=== PATIENT | female | born 1935 | race Caucasian/White ===

== ENCOUNTER → 2019-03-03 13:47 | Outpatient (CLI) | payer MEDICARE, SELFPAY ==
--- NOTE | ~2019-03-03 | XR_ITS ---
EXAMINATION: XR chest 2V DATE: 03/03/2019 14:03 INDICATION: Chronic obstructive pulmonary disease. TECHNIQUE: Frontal and lateral views of the chest were obtained. COMPARISON: Chest 2 views 09/29/2015, CT abdomen 11/09/2015 FINDINGS: The chest demonstrates clear lungs without pneumonia, pleural effusion, or pneumothorax. Th e heart size is normal. There are bilateral breast implants. IMPRESSION: 1. No acute cardiopulmonary disease. Reviewed, dictated and finalized at location A. 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
== END ==
PROVIDERS: PCP Internal Medicine; Visit Provider Nurse Practitioner
DX: J44.9 Chronic obstructive pulmonary disease, unspecified (principal)
CPT/HCPCS: 71046

== ENCOUNTER 2019-08-31 00:34 | Outpatient (CLI) | payer MEDICARE, SELFPAY ==
[2019-08-31 18:41] LABS: SARS-CoV-2 RNA PCR Negative
== END 2019-08-31 00:35 | disposition home or self-care (01) ==
LOC: ANHCOVIDDT 00:34
PROVIDERS: PCP Internal Medicine; Visit Provider Internal Medicine Gastroenterology
DX: Z01.812 Encounter for preprocedural laboratory examination (principal); Z11.59 Encounter for screening for other viral diseases
CPT/HCPCS: 87635; C9803; U0003

== ENCOUNTER 2019-09-02 02:05 | Day surgery (SDC) | payer MEDICARE, SELFPAY ==
[2019-08-27 10:11] VITALS: BMI 32.6
[2019-09-02 11:50] VITALS: BP 148/82; PULSE 69; RESP 18; TEMP 37.1; O2SAT 96
[2019-09-02] MEDS: LACTATED RINGERS 1,000 ML 150 ML IV CONT (12:09)
--- NOTE | 2019-09-02 12:51 | WPDANESEPPF ---
Anes - Initial Pre Proc Eval Procedure: Operation Date: 09/02/19 12:45 Proposed Procedures p Colonoscopy - Oscar Tillman MD Date/Time: 09/02/19 12:51 Surgeon: Oscar Tillman MD Pre Op Diagnosis: melena Patient Data Age: 83 Gender: F Height: 5 ft 3.5 in Weight: 83.7 kg Last Vital Signs Temp 98.8 F 09/02/19 11:50 Pulse 69 09/02/19 11:50 Resp 18 09/02/19 11:50 BP 148/82 H 09/02/19 11:50 Pulse Ox 96 09/02/19 11:50 Allergies Allergy/AdvReac Type Severity Reaction Status Date / Time No Known Allergies Allergy Verified 09/02/19 11:55 Home Medications Medication Instructions Recorded Confirmed Type calcium carb-mag oxide-vit D3 1 tablet PO DAILY 12/23/18 08/27/19 History aspirin 81 mg tablet,delayed 81 mg PO DAILY 03/02/19 08/27/19 History release dupilumab 300 mg/2 mL subcutaneous 300 mg SUB-Q ONCE 03/02/19 09/02/19 History syringe fluticasone 250 mcg-salmeterol 50 1 inhalation INHALATION BID 03/02/19 09/02/19 History mcg/dose blistr powdr for inhalation ibuprofen 600 mg tablet 600 mg PO ONCE PRN tablet 07/10/19 09/02/19 History levothyroxine 75 mcg tablet 75 mcg PO DAILY #90 tablet 08/03/19 08/27/19 Rx peg 3350-electrolytes 236 240 ml PO Q10M #4000 ml 08/26/19 Rx gram-22.74 gram-6.74 gram-5.86 gram solution amlodipine 5 mg PO DAILY 08/27/19 08/27/19 History Patient hx anesthesia problems: none Family hx anesthesia problems: none PMFSH Past Medical History Medical History (Updated 08/26/19 @ 11:56 by Oscar Tillman MD) Afib Blood in stool Bowel habit changes Frequent headaches Varicose vein of leg Surgical History Surgical History (System 03/13/19 @ 14:04 by Ernestina Vaughan) H/O arthroscopy of knee History of foot surgery History of tonsillectomy Social History Social History (System 03/13/19 @ 14:04 by Ernestina Gresham Smoking status: Smoker, status unknown Second hand tobacco smoke exposure: No Alcohol intake: never Anes - Eval Final PreProcedure Day of Procedure 09/02/19 12:51 Patient weight: normal Heart: regular rate and rhythm Lungs: clear to auscultation Airway: Mallampati scale class II Neurological: alert and oriented Last oral intake: >/= 8 hours ASA classification: III Emergent: no Anesthetic plan: proceed Anesthesia type and monitoring: general GIVS and standard monitoring Informed Consent: The patient's anesthetic plan and its attendant risks and benefits were discussed with the patient/family/POA. Questions were solicited and answers provided to the satisfaction of the patient/family/POA.
--- NOTE | 2019-09-02 12:59 | WPDHPUPDATE1 ---
History and Physical Update Update Date/Time: 09/02/19 12:59 History and Physical has been reviewed, including an updated exam of the patient. There are NO changes in the patient's condition. Risks, benefits, and alternatives have been discussed and questions answered. Patient agrees to proceed with procedure.
[2019-09-02 13:43] VITALS: BP 105/63; PULSE 59; RESP 18; O2SAT 98
== END 2019-09-02 14:16 | disposition home or self-care (01) ==
PROVIDERS: PCP Internal Medicine; Visit Provider Internal Medicine Gastroenterology
PROC: 0DJD8ZZ Inspection of Lower Intestinal Tract, Via Natural or Artificial Opening Endoscopic (ICD-10-PCS; CPT 45378; principal; 2019-09-02 12:45)
DX: C18.4 Malignant neoplasm of transverse colon (principal); K63.5 Polyp of colon; K57.30 Diverticulosis of large intestine without perforation or abscess without bleeding; K64.8 Other hemorrhoids; I48.91 Unspecified atrial fibrillation; Z79.82 Long term (current) use of aspirin
CPT/HCPCS: 45385; 45380; 45381; 88305; J2704; J7120

== ENCOUNTER → 2019-09-03 14:36 | Outpatient (CLI) | payer MEDICARE, SELFPAY ==
--- NOTE | ~2019-09-03 | CT_ITS ---
EXAMINATION: CT abdomen pelvis w con DATE: 09/03/2019 15:06 INDICATION: Malignant neoplasm of colon TECHNIQUE: Computed tomography (CT) of the abdomen and pelvis was performed with 100 cc Omnipaque 350 intravenous contrast. Automated exposure control and iterative reconstruction technique were employe d. Exam dose: 814.59 mGy-cm total exam DLP. COMPARISON: 11/09/2015 CT abdomen 10/30/2015 CT abdomen pelvis FINDINGS: The lung bases are clear of infiltrate or consolidation. Heart size is within normal range. No pericardial or pleural effusion. Probable couple millimeter left hepatic cyst; however this is too small to definitively characterize. Otherwise no hepatic hepatic, splenic, pancreatic, and adrenal space-occupying mass lesion. 3 cm right renal cyst. Approximately 5 mm right renal cyst. Approximately 7 mm left renal cyst. No urinary tract calculus or hydroureteronephrosis. The gallbladder is present. No bile duct or pancreatic duct dilatation. There is extensive calcification as well as tortuosity of the abdominal aorta as well as calcificatio n of the aortic branches. No intraperitoneal or retroperitoneal or pelvic mass lesion or adenopathy o r ascites. At least 2.5 cm heavily calcified uterine fibroid. The uterus and adnexal areas are otherwise unremar kable. There are numerous diverticula, primarily but not exclusively of the sigmoid colon. No CT evidence of diverticulitis. No bowel obstruction, bowel wall thickening, pneumatosis or intraperitoneal free air . There is diffuse osteopenia. There is degenerative change of the thoracic and lumbar spine with parti cular prominent degenerative change at the apophyseal joints and discs associated with prominent rota tory levoscoliosis. Multilevel degenerative disc disease with associated mild retrolisthesis at L3-4. . Grade 1 anterolisthesis at L4-5. IMPRESSION: Renal cysts Diverticulosis of the colon Reviewed, dictated and finalized at Location A. Reviewed, dictated and finalized at location A.
[2019-09-03 14:55] LABS: Estimated Glomerular Filt Rate > 60
== END ==
PROVIDERS: PCP Internal Medicine; Visit Provider Internal Medicine Gastroenterology
DX: C18.9 Malignant neoplasm of colon, unspecified (principal); E78.5 Hyperlipidemia, unspecified; E03.9 Hypothyroidism, unspecified; I10 Essential (primary) hypertension; N28.1 Cyst of kidney, acquired; K57.90 Diverticulosis of intestine, part unspecified, without perforation or abscess without bleeding
CPT/HCPCS: 36415; 74177; Q9967

== ENCOUNTER 2019-10-19 13:33 | Outpatient (CLI) | payer MEDICARE, SELFPAY | END 2019-10-19 13:34 | disposition home or self-care (01) | PROVIDERS: PCP Internal Medicine | DX: A49.8 Other bacterial infections of unspecified site (principal); A09 Infectious gastroenteritis and colitis, unspecified | CPT/HCPCS: 87324 ==

== ENCOUNTER → 2020-11-03 00:16 | Outpatient (CLI) | payer MEDICARE, SELFPAY ==
[2020-11-03 19:52] LABS: SARS-CoV-2 RNA PCR Negative
== END ==
PROVIDERS: PCP Internal Medicine; Visit Provider Nurse Practitioner
DX: Z20.822 Contact with and (suspected) exposure to COVID-19 (principal); R09.89 Other specified symptoms and signs involving the circulatory and respiratory systems
CPT/HCPCS: C9803; U0003; U0005

== ENCOUNTER 2021-01-27 07:48 | Outpatient (CLI) | payer MEDICARE, SELFPAY | END 2021-01-27 07:49 | disposition home or self-care (01) | LOC: ANHAUDIO 07:50 | PROVIDERS: PCP Internal Medicine; Visit Provider Nurse Practitioner Family | DX: R42 Dizziness and giddiness (principal); H90.3 Sensorineural hearing loss, bilateral | CPT/HCPCS: 92537; 92540; 92546; 92557; 92567 ==

== ENCOUNTER → 2021-02-02 11:08 | Outpatient (CLI) | payer MEDICARE, SELFPAY ==
--- NOTE | ~2021-02-02 | CT_ITS ---
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 The dose-length product (DLP) was 1052.62 mGy-cm. Automated exposure control and iterative reconstruction technique were employed. COMPARISON: 09/03/2019 FINDINGS: CHEST CT: There is mild emphysema. The lungs are free of acute opacities. There is no pleural effusion or pneum othorax. No pathologically enlarged thoracic lymph nodes are identified. The heart size is normal. Bi lateral breast implants are noted. There is moderate thoracic spondylosis. ABDOMEN/PELVIS CT: The liver, spleen, pancreas, gallbladder, and adrenal glands are normal. Cysts of the kidneys measure up to 3.4 cm on the right. There is calcified atherosclerosis of the aorta and many of the other art eries. No pathologically enlarged abdominal or pelvic lymph nodes are identified. There are changes o f right hemicolectomy and proximal transverse colectomy. No residual or mass is identified. There is no free intraperitoneal gas or evidence of bowel obstruction. A calcified fibroid is noted in the [place] jazmyn. There is a tiny fat-containing ventral hernia of the lateral right lower abdominal wall, likely the site of a laparoscopy port. Severe lumbar spondylosis is noted. IMPRESSION: 1. Changes of interval right hemicolectomy without recurrent or metastatic disease identified. Reviewed, dictated and finalized at location A. 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 Changes of interval right hemicolectomy without recurrent or metastatic dise ase identified.
[2021-02-02 11:27] LABS: Estimated Glomerular Filt Rate > 60
== END ==
PROVIDERS: PCP Internal Medicine
DX: C18.4 Malignant neoplasm of transverse colon (principal); C18.3 Malignant neoplasm of hepatic flexure; Z90.49 Acquired absence of other specified parts of digestive tract
CPT/HCPCS: 71260; 74177; Q9967

== ENCOUNTER → 2021-05-06 08:49 | Outpatient (CLI) | payer MEDICARE, SELFPAY ==
--- NOTE | ~2021-05-06 | MR_ITS ---
EXAMINATION: MR cervical spine wo con EXAM DATE: 05/06/2021 09:57 INDICATION: cervical myelopathy,balance disorder/dizziness since 08/2019. TECHNIQUE: Multi-sequential, multiplanar MR images of the cervical spine were obtained without contra st. Axial T2, axial T2 MERGE sequence. Sagittal T1, T2, T2 fat saturation images also obtained. Th ere is no prior study for comparison. FINDINGS: Congenitally narrow mid cervical spinal canal with flattened appearing spinal cord at the C3 and C4 levels. No acute cord compression, cord edema suspected, but there may be mild myelomalacia . Cervicomedullary junction is normal in appearance. There are no suspicious marrow signal abnormalit ies. Paraspinal soft tissue is unremarkable. There is partial fusion of the C4-5 vertebral bodies. Mild diffuse loss of cervical vertebral body he ights. There is moderate to severe disc disease at C5-6, moderate at the 2 levels below. Moderate to severe disc disease at C3-4. Level by level evaluation: Axial images limited due to patient motion. C2-C3: There is a mild diffuse disc bulge. Uncovertebral joint arthropathy: Mild to moderate left, mild right. Facet joint arthropathy: Severe left, mild right. Neural foraminal stenosis: Moderate left. Central canal stenosis: No stenosis. C3-C4: There is a mild to moderate diffuse disc bulge. Uncovertebral joint arthropathy: Probably moderate bilateral. Facet joint arthropathy: Moderate to severe left, mild to moderate right. Neural foraminal stenosis: Probably moderate bilateral. Central canal stenosis: Mild superimposed on congenital. C4-C5: Partially fused disc space Uncovertebral joint arthropathy: Mild to moderate but fused. Facet joint arthropathy: Fused left, partially fused right. Neural foraminal stenosis: Probably mild to moderate left and mild right. Central canal stenosis: Mild superimposed on congenital. C5-C6: There is a mild diffuse disc bulge. Uncovertebral joint arthropathy: Moderate to severe left, moderate right. Facet joint arthropathy: Mild to moderate bilateral. Neural foraminal stenosis: Probably moderate to severe left, mild right. Central canal stenosis: Mild. C6-C7: There is a mild diffuse disc bulge. Uncovertebral joint arthropathy: Moderate to severe left, mild to moderate right. Facet joint arthropathy: Mild bilateral. Neural foraminal stenosis: Mild left. Central canal stenosis: Mild. C7-T1: There is a mild diffuse disc bulge. Uncovertebral joint arthropathy: Moderate bilateral. Facet joint arthropathy: Moderate left, mild right. Neural foraminal stenosis: Mild left. Central canal stenosis: No stenosis. IMPRESSION: 1. Significant multilevel neural foraminal stenosis as detailed above. 2. Congenitally narrow mid cervical spinal canal. No acute cord compression. Reviewed, dictated and finalized at location .
== END ==
PROVIDERS: PCP Internal Medicine; Visit Provider Internal Medicine
DX: R26.89 Other abnormalities of gait and mobility (principal); G62.9 Polyneuropathy, unspecified
CPT/HCPCS: 72141

== ENCOUNTER 2021-06-13 08:04 | Outpatient (CLI) | payer MEDICARE, SELFPAY ==
--- NOTE | ~2021-06-13 | DEXA_ITS ---
Bone Density Report Name: CHRIS TINEO Age: 85 Sex: Female Ethnicity: White Date of : 1935 Indication: postmenopausal; screening for osteoporosis; height loss; cancer; Referring Provider: JACQUI BRUNER Study: Bone densitometry was performed. Exam Date: June 13, 2021 Accession number: [id number] Bone Density: Region BMD T-score Z-score Classification AP Spine(L1-L4) 1.063 0.1 3.0 Normal Femoral Neck (Left) 0.625 -2.0 0.5 Osteopenia Total Hip (Left) 0.784 -1.3 1.0 Osteopenia Femoral Neck (Right) 0.577 -2.4 0.0 Osteopenia Total Hip (Right) 0.748 -1.6 0.7 Osteopenia Total Hip Mean 0.766 -1.5 0.9 Osteopenia World Health Organization criteria for BMD impression classify patients as: Normal (T-score at or above -1.0), Osteopenia (T-score between -1.0 and -2.5), or Osteoporosis (T-score at or below -2.5). 10-year Fracture Risk(1): Major Osteoporotic Fracture 16% Hip Fracture 5.3% Reported Risk Factors: [place] (), Neck BMD=0.577, BMI=36.1 (1) FRAX(R) Version 3.08. Fracture probability calculated for an untreated patient. Fracture probability may be lower if the patient has received treatment. Clinical Information Provided by Patient: Has used the following medications: Vitamin D, Calcium Has the following medical conditions: Cancer Patient maximum height was 64 Menopause Age: 55 No regular weight bearing exercise Drinks caffeinated beverages Onset of menses at age 15 Number of children 3 Impression: The patient has low bone mass, based on the Right Femoral Neck T-score. The patient has an estimated ten-year risk of hip fracture of 5.3% and an estimated ten-year risk of major fracture of 16%, based on the WHO FRAX algorithm. Discussion: BONE DENSITY IS LOW AT ONE OR MORE SKELETAL SITES. THE PATIENT'S BMD AND CLINICAL RISK FACTORS CONTRIBUTE TO THIS PATIENT'S INCREASED RISK OF FRACTURE. This patient's lowest T-score is low at one or more skeletal sites. It meets the World Health Organization's (WHO) criteria for ?low bone mass? (T-score between -1.0 and -2.5). The patient's 10-year risk of hip fracture as calculated by FRAX exceeds the threshold where pharmacological therapy is recommended by the National Osteoporosis Foundation (NOF). However, all treatment decisions require clinical judgment and consideration of individual patient factors, including patient preferences, comorbidities, previous drug use, risk factors not captured in the FRAX model (e.g., frailty, falls, vitamin D deficiency, increased bone turnover, interval significant decline in bone density) and possible under or overestimation of fracture risk by FRAX. The patient should follow a healthful lifestyle (good nutrition with adequate calcium and vitamin D, and appropriate weight-bearing exerc
== END 2021-06-13 08:05 | disposition home or self-care (01) ==
LOC: ANHIMG 08:08
PROVIDERS: PCP Internal Medicine; Visit Provider Internal Medicine
DX: Z78.0 Asymptomatic menopausal state (principal); M81.0 Age-related osteoporosis without current pathological fracture; M85.852 Other specified disorders of bone density and structure, left thigh; M85.851 Other specified disorders of bone density and structure, right thigh
CPT/HCPCS: 77080

== ENCOUNTER 2021-06-19 10:33 | Outpatient (CLI) | payer MEDICARE, SELFPAY ==
--- NOTE | ~2021-06-19 | XR_ITS ---
EXAMINATION: XR chest 2V DATE: 06/19/2021 10:53 INDICATION: Shortness of breath. TECHNIQUE: Frontal and lateral views of the chest were obtained. COMPARISON: Chest 2 views 09/29/2015 FINDINGS: There is mild atelectasis in the lower lung zones. No pleural effusion or pneumothorax. The heart size is normal. There are bilateral breast implants. IMPRESSION: 1. Mild atelectasis in the lower lung zones. Reviewed, dictated and finalized at location B.
== END 2021-06-19 10:34 | disposition home or self-care (01) ==
PROVIDERS: PCP Internal Medicine; Visit Provider Internal Medicine
DX: R06.00 Dyspnea, unspecified (principal); R91.8 Other nonspecific abnormal finding of lung field
CPT/HCPCS: 71046

== ENCOUNTER 2021-08-23 12:22 | Outpatient (CLI) | payer MEDICARE, SELFPAY ==
[2021-08-23 13:00] VITALS: PULSE 70; O2SAT 94
[2021-08-23 13:03] VITALS: PULSE 96; O2SAT 87
[2021-08-23 13:05] VITALS: PULSE 89; O2SAT 93
[2021-08-23 13:15] VITALS: PULSE 76; O2SAT 93
--- NOTE | 2021-08-23 13:49 | HOMEO2EVAL ---
Evaluation was performed at [facility] Home Oxygen Evaluation RC: Home Oxygen (O2) Evaluation Start: 08/23/21 13:46 Freq: Status: Active Protocol: RPE Activity Type Activity Date Activity User E-sign Co-sign Detail Recorded Client Recorded Date Recorded By Document 08/23/21 13:00 JAZ [email or web address] 08/23/21 13:49 JAZ Document 08/23/21 13:03 JAZ [email or web address] 08/23/21 13:49 JAZ Document 08/23/21 13:05 JAZ [id number] 08/23/21 13:49 JAZ Document 08/23/21 13:15 JAZ [email or web address] 08/23/21 13:49 JAZ 08/23/21 08/23/21 08/23/21 13:00 13:03 13:05 Home O2 Evaluation Test Phase Resting Exercise Exercise Oxygen Delivery Room Air Room Air Nasal Cannula Oxygen Flow Rate (L/min) 1 Pulse Oximetry (90-100 %) 94 87 L 93 Pulse Rate (60-100 beats/min) 70 96 89 Ambulation Distance (feet) 700 Ambulation Distance (meters) 213.34 Home Oxygen Evaluation Comments Pt requires 1 with activity. Treatment Charges O2 Evaluation - Outpatient 08/23/21 13:15 Home O2 Evaluation Test Phase Resting Oxygen Delivery Room Air Oxygen Flow Rate (L/min) Pulse Oximetry (90-100 %) 93 Pulse Rate (60-100 beats/min) 76 Ambulation Distance (feet) Ambulation Distance (meters) Home Oxygen Evaluation Comments Treatment Charges
--- NOTE | 2021-08-23 13:49 | PCRCNOTE ---
Home o2 eval faxed to office with note that patient is requesting a POC O2 unit, as she only needs 1 L and she is very active
== END 2021-08-23 12:23 | disposition home or self-care (01) ==
LOC: ANHPFT 12:24
PROVIDERS: PCP Internal Medicine; Visit Provider Nurse Practitioner Family
DX: J44.9 Chronic obstructive pulmonary disease, unspecified (principal)
CPT/HCPCS: 94618

== ENCOUNTER → 2022-02-14 08:18 | Outpatient (CLI) | payer MEDICARE, SELFPAY ==
--- NOTE | ~2022-02-14 | CT_ITS ---
Clinical Indication: Colon cancer CT Scan of the Chest, Abdomen, and Pelvis with Contrast: Technique: Contiguous sections were acquired throughout the chest, abdomen, and pelvis after intraven ous administration of 100 cc of Omnipaque 350. Dose reduction technique was used on this scan by kasey caceres automated exposure control and iterative reconstruction technique. The dose-length product (DL P) was 1054.69 mGy-cm. COMPARISON: 02/02/2021 Findings: There is no evidence of any significant mediastinal, hilar or axillary lymphadenopathy. The mediastin al soft tissues and vascular structures appear normal. There is no evidence of pleural or pericardial effusion. The lungs are clear. No pulmonary nodules or infiltrates are noted. There is minimal emphysema in the upper lobes. The liver, spleen, pancreas, gallbladder, adrenals and kidneys are within normal limits. No evidence of aortic aneurysm. No lymphadenopathy. No bowel obstruction or bowel wall thickening. Patient is status post partial right colectomy. There is no evidence to suggest acute appendicitis. Urinary bladder is unremarkable. Calcified uterine fibroid present. Impression: No evidence for active malignancy or metastatic disease. Status post partial right colectomy. Minimal emphysema. Calcified uterine fibroid. Reviewed, dictated and finalized at [facility]. CTOR OF SPORTS MEDICINE Impression: No evidence for active malignancy or metastatic disease. Status post partial right colectomy. Minimal emphysema. Calcified uterine fibroid.
[2022-02-14 08:36] LABS: Estimated Glomerular Filt Rate > 60
== END ==
PROVIDERS: PCP Internal Medicine
DX: C18.4 Malignant neoplasm of transverse colon (principal); J43.9 Emphysema, unspecified; D25.9 Leiomyoma of uterus, unspecified
CPT/HCPCS: 71260; 74177; Q9967

== ENCOUNTER → 2022-09-25 14:38 | Outpatient (CLI) | payer MEDICARE, SELFPAY ==
--- NOTE | ~2022-09-25 | XR_ITS ---
EXAM: XR hand LT 2V DATE: 09/25/2022 14:51 HISTORY: M79.89 - Other specified soft tissue disorders . COMPARISON: None available. FINDINGS: Decreased mineralization. No fracture or dislocation. No lytic or blastic lesion. Scattere d arthritic changes typical of osteoarthritis in the interphalangeal joints, trapeziometacarpal joint , and triscaphe joint, changes are most pronounced at the trapezium metacarpal joint and left third P IP joint. There is mild medial subluxation and angulation at the third PIP joint No erosion or perios teal change. Soft tissues within normal limits. IMPRESSION: Polyarticular osteoarthritis of the left hand. Mild medial subluxation and angulation at the third PIP joint may reflect a component of acute ligame ntous injury, correlate with history of trauma Reviewed, dictated and finalized at [facility]. IMPRESSION: Polyarticular osteoarthritis of the left hand. Mild medial subluxation and angulation at the third PIP joint may reflect a com ponent of acute ligamentous injury, correlate with history of trauma
== END ==
PROVIDERS: PCP Nurse Practitioner Family; Visit Provider Nurse Practitioner Family
DX: M79.89 Other specified soft tissue disorders (principal); M19.042 Primary osteoarthritis, left hand
CPT/HCPCS: 73120

== ENCOUNTER 2023-09-25 10:13 | Outpatient (CLI) | payer MEDICARE, SELFPAY ==
--- NOTE | ~2023-09-25 | CT_ITS ---
Clinical Indication: Colon cancer CT Scan of the Chest, Abdomen, and Pelvis with Contrast: Technique: Contiguous sections were acquired throughout the chest, abdomen, and pelvis after intraven ous administration of 100 cc of Omnipaque 350. Dose reduction technique was used on this scan by kasey caceres automated exposure control and iterative reconstruction technique. The dose-length product (DL P) was 1051.28 mGy-cm. COMPARISON: 02/14/2022 Findings: There is no evidence of any significant mediastinal, hilar or axillary lymphadenopathy. The mediastin al soft tissues appear normal. There is no evidence of pleural or pericardial effusion. The lungs are clear. No pulmonary nodules or infiltrates are noted. Mild emphysema. The liver, spleen, pancreas, gallbladder, adrenals and kidneys are within normal limits. There are at herosclerotic calcifications of the aorta. No lymphadenopathy. No bowel obstruction or bowel wall thickening. Status post prior right hemicolectomy. Small fat-conta ining right spigelian hernia present. Urinary bladder is unremarkable. Densely calcified uterine fibroid present. No ascites. Impression: No interval change. No evidence of active malignancy or metastatic disease. Mild emphysema. Status post right colectomy. Reviewed, dictated and finalized at [facility]. Impression: No interval change. No evidence of active malignancy or metastatic disease. Mild emphysema. Status post right colectomy.
[2023-09-25 10:33] LABS: Estimated Glomerular Filt Rate > 60
== END 2023-09-25 10:14 ==
PROVIDERS: PCP Nurse Practitioner Family; Visit Provider Surgery
DX: J43.9 Emphysema, unspecified (principal); Z90.49 Acquired absence of other specified parts of digestive tract; Z85.038 Personal history of other malignant neoplasm of large intestine
CPT/HCPCS: 71260; 74177; Q9967

== ENCOUNTER 2023-11-25 12:20 | Outpatient (CLI) | payer MEDICARE, SELFPAY ==
[2023-11-25 13:11] VITALS: PULSE 72; O2SAT 86
[2023-11-25 13:13] VITALS: PULSE 65; O2SAT 91
[2023-11-25 13:18] VITALS: PULSE 91; O2SAT 90
--- NOTE | 2023-11-25 13:23 | ECG_ITS ---
Test Date: 2023-11-25 13:30:21 Measurements Intervals [place] Rate: 71 P: 74 AR: 174 QRS: 23 QRSD: 92 T: 50 QT: 394 QTc: 430 Interpretive Statements SINUS RHYTHM WITH OCCASIONAL SUPRAVENTRICULAR PREMATURE COMPLEXES ABNORMAL RHYTHM ECG No previous ECG available for comparison Electronically Signed On 11-25-2023 14:47:31 CDT by Hector Roca M.D.
--- NOTE | 2023-11-25 13:32 | HOMEO2EVAL ---
Evaluation was performed at [facility] Home Oxygen Evaluation RC: Home Oxygen (O2) Evaluation Start: 11/25/23 13:30 Freq: Status: Active Protocol: RPE Activity Type Activity Date Activity User E-sign Co-sign Detail Recorded Client Recorded Date Recorded By Document 11/25/23 13:11 KRM [email or web address] 11/25/23 13:32 KRM Document 11/25/23 13:13 KRM [email or web address] 11/25/23 13:32 KRM Document 11/25/23 13:18 KRM [email or web address] 11/25/23 13:32 KRM 11/25/23 11/25/23 11/25/23 13:11 13:13 13:18 Home O2 Evaluation [Oxygen] -Test Phase Resting Resting Exercise -Oxygen Delivery Nasal Cannula Nasal Cannula -Oxygen Flow Rate (L/min) 1 1 [Pulse Oximetry] -Pulse Oximetry (90-100 %) 86 L 91 90 [Pulse Rate] -Pulse Rate (60-100 beats/min) 72 65 91 [Evaluation] -Activity Tolerance Fair [Exercise] -Ambulation Distance (feet) 200 -Ambulation Distance (meters) 60.95 [Comments] -Home Oxygen Evaluation Comments PT. REQUIRES 1LPM AT REST AND WITH ACTIVITY. PT. IS REQUESTING A PORTABLE CONCENTRATOR ( POC). [Charges] -Evaluation Charges O2 Evaluation by Pulmonary
== END 2023-11-25 12:21 | disposition home or self-care (01) ==
PROVIDERS: PCP Nurse Practitioner Family; Visit Provider Nurse Practitioner Family
DX: I49.9 Cardiac arrhythmia, unspecified (principal); R09.02 Hypoxemia; R94.31 Abnormal electrocardiogram [ECG] [EKG]
CPT/HCPCS: 93005; 94618

== ENCOUNTER 2024-01-20 14:44 | Inpatient (IN) | payer MEDICARE, SELFPAY ==
[2024-01-20] VITALS (27 sets, daily range): BP systolic 101–159; BP diastolic 70–119; PULSE 92–160; RESP 18–40; TEMP 36.4; O2SAT 88–96
--- NOTE | ~2024-01-20 | XR_ITS ---
EXAMINATION: XR chest 1V portable DATE: 01/20/2024 15:12 INDICATION: Chest pain. TECHNIQUE: A single frontal view of the chest was obtained. COMPARISON: Chest 2 views 06/19/2021, chest CT 09/25/2023 FINDINGS: There is no pneumonia, pleural effusion, or pneumothorax. Cardiomegaly is noted. Breast imp lants are noted. IMPRESSION: 1. Cardiomegaly. Reviewed, dictated and finalized at location A. ACE FITTER IMPRESSION: 1. Cardiomegaly.
--- NOTE | 2024-01-20 14:49 | ECG_ITS ---
Test Date: 2024-01-20 14:52:30 Measurements Intervals [place] Rate: 161 P: 0 AL: 0 QRS: 28 QRSD: 98 T: 23 QT: 199 QTc: 326 Interpretive Statements ATRIAL FIBRILLATION WITH RAPID VENTRICULAR RESPONSE NONSPECIFIC ST & T-WAVE ABNORMALITY ABNORMAL RHYTHM ECG Compared to ECG 11/25/2023 13:30:21 ATRIAL FIBRILLATION NOW PRESENT Electronically Signed On 01-21-2024 15:01:17 WHISKEY FILTERER by Caridad Self M.D.
[2024-01-20] MEDS: ASPIRIN 81 MG CHEWABLE TABLET 324 MG PO (14:56)
[2024-01-20 15:22] LABS: Basophils Absolute Auto 0.1 K/mm3 (0.0-0.1); Basophils Percent Auto 0.4 % (0.2-1.2); Eosinophils Absolute Auto 0.1 K/mm3 (0-0.3); Eosinophils Percent Auto 0.5 % (0-4.4); Hemoglobin 13.4 g/dL (12.0-15.0); Immature Granulocyte Absolute 0.04 K/mm3 (0.00-0.031); Immature Granulocyte Percent A 0.4 % (0-0.5); Lymphocytes Percent Auto 8.1 % (18.3-44.2); Mean Corpuscular HGB Conc 32.7 g/dl (32-36); Mean Corpuscular Hemoglobin 30.2 pg (26-34); Mean Corpuscular Volume 92.3 fl (80-100); Monocytes Absolute Auto 1.3 K/mm3 (0.1-0.6); Monocytes Percent Auto 11.3 % (2.6-8.5); Neutrophils Absolute Auto 8.9 K/mm3 (1.3-6.7); Neutrophils Percent Auto 79.3 % (45.5-73.1); Platelet Count Result 211 k/mm3 (150-375); Red Blood Count 4.44 M/mm3 (4.2-5.4); Red Cell Distribution Width 14.3 % (11.5-14.5); White Blood Count 11.2 K/mm3 (4.5-10.0)
[2024-01-20 15:33] LABS: Alanine Aminotransferase 29 U/L (6-35); Albumin Level 4.3 g/dL (3.5-5.1); Alkaline Phosphatase 126 U/L (38-126); Anion Gap 7 mmol/L (4-12); Aspartate Amino Transferase 29 U/L (14-36); Blood Urea Nitrogen 14 mg/dL (7-17); Calcium 9.1 mg/dL (8.4-10.2); Carbon Dioxide 27 mmol/L (22-30); Chloride 102 mmol/L (98-107); Estimated CRCL calculation 64 ml/min; Estimated Glomerular Filt Rate > 60; Glucose 106 mg/dL (65-110); INR 1.2; Lipase 36 U/L (23-300); Prothrombin Time 15.9 Seconds (11.1-14.7); Sodium 136 mmol/L (137-145)
[2024-01-20 15:34] LABS: Partial Thromboplastin Time 31.9 Seconds (22.3-36.8)
[2024-01-20 15:44] LABS: NT Pro B Type Natriuretic Pept 5070 pg/mL (19.9-100); Troponin I < 0.012 ng/mL (0.000-0.034)
[2024-01-20] MEDS: dilTIAZem HCl INJ 25 MG/5 ML VIAL IV PUSH (17:04)
[2024-01-20] MEDS: dilTIAZem 100 MG/100 ML 100 MG/100 ML BAG IV CONT (17:10)
--- NOTE | 2024-01-20 17:59 | ECG_ITS ---
Test Date: 2024-01-20 18:13:49 Measurements Intervals [place] Rate: 128 P: 0 MI: 0 QRS: 30 QRSD: 99 T: 129 QT: 300 QTc: 438 Interpretive Statements ATRIAL FIBRILLATION WITH RAPID VENTRICULAR RESPONSE LOW QRS VOLTAGE IN EXTREMITY LEADS [QRS DEFLECTION < 0.5 mV IN LIMB LEADS] NONSPECIFIC T-WAVE ABNORMALITY Compared to ECG 01/20/2024 14:52:30 NO SIGNIFICANT CHANGES Electronically Signed On 01-21-2024 15:04:55 RECOVERY OPERATOR by Caridad Self M.D.
--- NOTE | 2024-01-20 19:06 | ED_ITS ---
HPI - Arrhythmia/Palpitations General Chief Complaint: Arrhythmia/Palpitations Stated Complaint: new onset afib Time Seen by Provider: 01/20/24 18:40 Source: patient Mode of arrival: EMS Limitations: no limitations History of Present Illness HPI narrative: This is an 88-year-old female that presents to the emergency department for new onset AFib. 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 They sent her to the ER for further evaluation. Patient has history of COPD. Chronically wears oxygen. She does also admit she has not been taking her daily inhaler in quite some time. Reports she has had shortness of breath which seemed about at her baseline. Reports possible history of 1 episode of atrial fibrillation during a surgery years ago. Reports she had pain under her right breast last night. Denies lower extremity edema. Related Data Home Medications Medication Instructions Recorded Confirmed aspirin 81 mg tablet,delayed 81 mg PO DAILY 03/02/19 01/21/24 release dupilumab 300 mg/2 mL subcutaneous 300 mg subcut ONCE 03/02/19 01/21/24 syringe ([employer]) ascorbic acid (vitamin C) 1,000 mg 1 g PO DAILY 02/28/22 01/21/24 capsule cholecalciferol (vitamin D3) 125 125 mcg PO DAILY 02/28/22 01/21/24 mcg (5,000 unit) capsule calcium carbonate (Calcium 600) 600 mg PO DAILY 05/07/22 01/21/24 mecobalamin (vitamin B12) 2,500 2,500 mcg PO DAILY 05/07/22 01/21/24 mcg chewable tablet zinc glycinate 30 mg capsule 30 mg PO DAILY 09/03/22 01/21/24 amlodipine 5 mg tablet 5 mg PO DAILY 01/21/24 01/21/24 levothyroxine 75 mcg tablet 75 mcg PO DAILY 01/21/24 01/21/24 Allergies Allergy/AdvReac Type Severity Reaction Status Date / Time No Known Allergies Allergy Verified 01/20/24 15:07 Review of Systems Review of Systems: CONSTITUTIONAL: Denies fever CARDIOVASCULAR: Report chest pain. Denies palpitations, or edema. RESPIRATORY: Reports dyspnea. 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 Smoking packs per day: 1 Smoking cigarettes per day: 20.0 Years smoked: 30 Smoking pack-years: 30.00 Smoking status: Former smoker Second hand tobacco smoke exposure: Yes Alcohol intake: never Substance use: never Substance use type: does not use Do You Feel Safe in your Home?: Yes Lack of Transportation: No Lack of Food: Never True Current Housing: I Have Housing Concerned About Future Housing: No Difficulty Paying Gas/Electric Bills: No Difficulty Paying for Meds: No Currently Unemployed: No Education: High School Diploma/GED Difficulty w/ Childcare or Family Care: No Living arrangements: alone Occupation/Education: retired Gender identity (if verbalized by the patient): Female Spiritual care concerns: No Exam Narrative: GENERAL: Well-appearing, well-nourished, and in no acute distress. HEAD: Normocephalic, atraumatic. EYES: EOMI. ENT: Nares clear, no rhinorrhea or epistaxis. Mucous membranes moist. Oropharynx without tonsillar hypertrophy exudate or other lesions. Bilateral TMs pearly cota non-bulging NECK: Supple. No adenopathy or masses. CHEST: No respiratory distress. Lung sounds are diminished with wheezing. Rales at the bases. No rhonchi HEART: Regular rate and rhythm. No murmur heard. Normal peripheral pulses. EXTREMITIES: Normal range of motion. No edema. SKIN: Warm, dry, no rash. NEURO: No focal deficits. Alert and oriented x3. PSYCH: Normal mood and affect Course Course Emergency Course: Patient and family updated on workup and need for admission Consultations Consultation #1: Spoke with hospitalist about patient and workup who accepts admission Date: 01/20/24 Vital Signs Vital signs: Vital Signs Temperature 97.6 F 01/20/24 14:44 Pulse Rate 128 H 01/20/24 14:44 Respiratory Rate 22 H 01/20/24 14:44 Blood Pressure 159/119 H 01/20/24 14:44 Pulse Oximetry 93 01/20/24 14:44 Temperature 97.6 F 01/20/24 14:44 Pulse Rate 81 01/21/24 03:31 Respiratory Rate 20 01/21/24 03:31 Blood Pressure 114/66 01/21/24 03:31 Pulse Oximetry 92 01/21/24 03:31 MDM - Arrhythmia/Palpitations MDM Narrative Medical decision making narrative: Patient presents to the emergency department for elevated heart rate from pulmonology office. Noted to be in AFib with RVR. Given push of diltiazem and started on a drip. CBC with mild leukocytosis to 11.2. Metabolic panel without concerning findings. Baseline and 3 hour troponin are negative. D-dimer is not elevated age adjusted. Chest x-ray shows cardiomegaly. Patient given nebulizer treatment and steroid with improvement in lung sounds. Spoke with hospitalist about patient and workup who accepts admission Differential Diagnosis Differential diagnosis: Likely palpitations, anxiety, sinus tachycardia, artial fibrillation, artial flutter and ventricular premature beats Lab Data Attestation: I reviewed the patient's lab results. 01/20/24 15:09 01/20/24 15:09 Labs: Lab Results 01/20/24 01/20/24 01/20/24 Range/Units 15:09 15:09 18:16 WBC 11.2 H (4.5-10.0) K/mm3 RBC 4.44 (4.2-5.4) M/mm3 Hgb 13.4 (12.0-15.0) g/dL Hct 41.0 (37.0-47.0) % MCV 92.3 (80-100) fl MCH 30.2 (26-34) pg MCHC 32.7 (32-36) g/dl RDW 14.3 (11.5-14.5) % Plt Count 211 (150-375) k/mm3 MPV 12.0 H (7.4-10.4) fl Immature Gran % (Auto) 0.4 (0-0.5) % Neut % (Auto) 79.3 H (45.5-73.1) % Lymph % (Auto) 8.1 L (18.3-44.2) % [place] % (Auto) 11.3 H (2.6-8.5) % Eos % (Auto) 0.5 (0-4.4) % Baso % (Auto) 0.4 (0.2-1.2) % Lymph # (Auto) 0.90 (0.9-3.2) K/mm3 [place] # (Auto) 1.3 H (0.1-0.6) K/mm3 Eos # (Auto) 0.1 (0-0.3) K/mm3 Baso # (Auto) 0.1 (0.0-0.1) K/mm3 Abs Immat Gran (auto) 0.04 H (0.00-0.031) K/mm3 Absolute Neuts (auto) 8.9 H (1.3-6.7) K/mm3 Absolute Nucleated RBC 0.000 (0.0-0.012) K/mm3 Nucleated RBC % 0.0 (0.0-0.2) % PT 15.9 H (11.1-14.7) Seconds INR 1.2 APTT 31.9 (22.3-36.8) Seconds D-Dimer (<0.48) ug/mL Sodium 136 L (137-145) mmol/L Potassium 4.0 (3.4-5.0) mmol/L Chloride 102 (98-107) mmol/L Carbon Dioxide 27 (22-30) mmol/L Anion Gap 7 (4-12) mmol/L BUN 14 (7-17) mg/dL Creatinine 0.60 L (0.7-1.0) mg/dL Estim Creat Clear Calc 64 ml/min Estimated GFR > 60 (59 - ) Glucose 106 (65-110) mg/dL Calcium 9.1 (8.4-10.2) mg/dL Total Bilirubin 1.0 (0.2-1.3) mg/dL AST 29 (14-36) U/L ALT 29 (6-35) U/L Alkaline Phosphatase 126 (38-126) U/L Troponin I < 0.012 < 0.012 (0.000-0.034) ng/mL NT-Pro-B Natriuret Pep 5070 H Cancelled (19.9-100) pg/mL Total Protein 7.0 (6.3-8.2) g/dL Albumin 4.3 (3.5-5.1) g/dL Lipase 36 (23-300) U/L 01/20/24 Range/Units 20:36 WBC (4.5-10.0) K/mm3 RBC (4.2-5.4) M/mm3 Hgb (12.0-15.0) g/dL Hct (37.0-47.0) % MCV (80-100) fl MCH (26-34) pg MCHC (32-36) g/dl RDW (11.5-14.5) % Plt Count (150-375) k/mm3 MPV (7.4-10.4) fl Immature Gran % (Auto) (0-0.5) % Neut % (Auto) (45.5-73.1) % Lymph % (Auto) (18.3-44.2) % [place] % (Auto) (2.6-8.5) % Eos % (Auto) (0-4.4) % Baso % (Auto) (0.2-1.2) % Lymph # (Auto) (0.9-3.2) K/mm3 [place] # (Auto) (0.1-0.6) K/mm3 Eos # (Auto) (0-0.3) K/mm3 Baso # (Auto) (0.0-0.1) K/mm3 Abs Immat Gran (auto) (0.00-0.031) K/mm3 Absolute Neuts (auto) (1.3-6.7) K/mm3 Absolute Nucleated RBC (0.0-0.012) K/mm3 Nucleated RBC % (0.0-0.2) % PT (11.1-14.7) Seconds INR APTT (22.3-36.8) Seconds D-Dimer 0.67 H (<0.48) ug/mL Sodium (137-145) mmol/L Potassium (3.4-5.0) mmol/L Chloride (98-107) mmol/L Carbon Dioxide (22-30) mmol/L Anion Gap (4-12) mmol/L BUN (7-17) mg/dL Creatinine (0.7-1.0) mg/dL Estim Creat Clear Calc ml/min Estimated GFR (59 - ) Glucose (65-110) mg/dL Calcium (8.4-10.2) mg/dL Total Bilirubin (0.2-1.3) mg/dL AST (14-36) U/L ALT (6-35) U/L Alkaline Phosphatase (38-126) U/L Troponin I < 0.012 (0.000-0.034) ng/mL NT-Pro-B Natriuret Pep (19.9-100) pg/mL Total Protein (6.3-8.2) g/dL Albumin (3.5-5.1) g/dL Lipase (23-300) U/L Imaging Data Radiologist's impression: ITS Impressions Chest X-Ray 01/20/24 15:13 IMPRESSION: 1. Cardiomegaly. ECG Data EKG #1: ECG completion date: 01/20/24 EKG Interpretation: atrial fibrillation (with RVR) and normal QT Critical Care Time Critical Care Time Critical Care Time: Yes Total Critical Care Time: 35 Discharge Plan Discharge Clinical Impression: Atrial fibrillation with rapid ventricular response, Chronic respiratory fa ilure Patient Disposition: Still a Patient Condition: Improved
[2024-01-20 19:12] LABS: Troponin I < 0.012 ng/mL (0.000-0.034)
[2024-01-20] MEDS: LEVALBUTEROL NEB 1.25 MG/3 ML INHALATION (19:21)
[2024-01-20] MEDS: methylPREDNISolone SOD SUCC 125 MG VIAL IV PUSH (19:43)
--- NOTE | 2024-01-20 19:43 | PC.NURSE ---
Pt diltiazem drip running at 10ml/hr prior to my arrival.
--- NOTE | 2024-01-20 20:38 | ECG_ITS ---
Test Date: 2024-01-20 20:42:03 Measurements Intervals [place] Rate: 108 P: 0 TX: 0 QRS: 30 QRSD: 94 T: 60 QT: 360 QTc: 484 Interpretive Statements ATRIAL FIBRILLATION WITH RAPID VENTRICULAR RESPONSE NONSPECIFIC T-WAVE ABNORMALITY ABNORMAL RHYTHM ECG Compared to ECG 01/20/2024 18:13:49 No significant changes Electronically Signed On 01-21-2024 15:10:24 [employer] by Caridad Self M.D.
[2024-01-20 21:13] LABS: D Dimer 0.67 ug/mL (<0.48)
[2024-01-20 21:18] LABS: Troponin I < 0.012 ng/mL (0.000-0.034)
--- NOTE | 2024-01-20 22:27 | P.HP_ITS ---
H&P: HPI History of Present Illness Date/Time: 01/20/24 22:27 Chief Complaint: 1. Shortness of breath 2. Palpitations Narrative: Kanchan Abbott is an 88 yo F with a mHx significant for obesity, COPD, Hypothyroidism, Chronic hypoxia, BCC, GERD She has been experiencing symptoms of dyspnea on exertion; in recent times it is present with minimal exertion and even at rest; On evaluation at her PCP's office, she was found to be in A-fib with hypoxia. She denies fevers, chills, nausea, vomiting, leg swellings, dizziness, LOC, leg swellings, dysuria, skin/joint changes At baseline, she is on a 1-2L NC oxygen regimen but this failed to improve her symptoms She does not smoke/chew tobacco, drink alcohol or consume recreational/illicit drugs Work-up findings ECG: A-fib w/RVR Unremarkable CBC D-dimer 0.67 BUN 21 Cr 0.[address] chest: There is no pneumonia, pleural effusion, or pneumothorax. Cardiomegaly is noted. Breast implants are noted. She will be admitted, evaluated and managed for COPD exacerbation and A-fib with RVR Review of Systems Constitutional: Constitutional: Reports fatigue and Reports lethargy Eyes: Eyes: Reports no additional eye complaints ENT: Reports system reviewed and no additional complaints, except as documented Cardiovascular: Cardiovascular: Reports no additional cardiovascular complaints Respiratory: Respiratory: Reports dyspnea, Reports dyspnea on exertion and Reports wheezing Gastrointestinal: Gastrointestinal: Reports no additional gastrointestinal complaints Genitourinary: Genitourinary: Reports no additional female genitourinary complaints Musculoskeletal: Musculoskeletal: Reports arthralgias and Reports joint swelling Integumentary/Breasts: Skin/Breast: Reports system reviewed and no additional complaints, except as docu Neurologic: Reports system reviewed and no additional complaints, except as documented, Reports Abnormal speech present, Reports abnormal gait, Reports confusion, Reports vertigo and Reports headache(s) Psychiatric: Psychiatric: Reports anxiety, Denies behavioral changes, Denies confusion and Denies depression [facility] Past Medical History Medical History Afib Atrial tachycardia from anesthesia Basal cell carcinoma Blood in stool Bowel habit changes COPD (chronic obstructive pulmonary disease) Degenerative arthritis of knee, bilateral Frequent headaches GERD (gastroesophageal reflux disease) Hearing loss Hyperlipidemia Hypertension Hypothyroidism Lump of right breast Osteopenia 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 Smoking packs per day: 1 Smoking cigarettes per day: 20.0 Years smoked: 30 Smoking pack-years: 30.00 Smoking status: Former smoker Second hand tobacco smoke exposure: Yes Alcohol intake: never Substance use: never Substance use type: does not use Do You Feel Safe in your Home?: Yes Lack of Transportation: No Lack of Food: Never True Current Housing: I Have Housing Concerned About Future Housing: No Difficulty Paying Gas/Electric Bills: No Difficulty Paying for Meds: No Currently Unemployed: No Education: High School Diploma/GED Difficulty w/ Childcare or Family Care: No Living arrangements: alone Occupation/Education: retired Gender identity (if verbalized by the patient): Female Spiritual care concerns: No Meds Home Medications and Allergies Home Medications Medication Instructions Recorded Confirmed Type aspirin 81 mg tablet,delayed 81 mg PO DAILY 03/02/19 01/21/24 History release dupilumab 300 mg/2 mL subcutaneous 300 mg subcut ONCE 03/02/19 01/21/24 History syringe ([employer]) ascorbic acid (vitamin C) 1,000 mg 1 g PO DAILY 02/28/22 01/21/24 History capsule cholecalciferol (vitamin D3) 125 125 mcg PO DAILY 02/28/22 01/21/24 History mcg (5,000 unit) capsule calcium carbonate (Calcium 600) 600 mg PO DAILY 05/07/22 01/21/24 History mecobalamin (vitamin B12) 2,500 2,500 mcg PO DAILY 05/07/22 01/21/24 History mcg chewable tablet zinc glycinate 30 mg capsule 30 mg PO DAILY 09/03/22 01/21/24 History albuterol sulfate 2.5 mg/3 mL 2.5 mg (3 mL) inhalation Q4-6H PRN 09/25/23 01/21/24 Rx (0.083 %) solution for nebulization shortness of breath or wheezing #75 mL nebulizers (Compact Compressor #1 ea 09/25/23 01/21/24 Rx Nebulizer) albuterol sulfate 90 mcg/actuation 2 puff inhalation Q4H PRN 01/20/24 01/21/24 Rx aerosol inhaler shortness of breath or wheezing #8.5 grams fluticasone 100 mcg-salmeterol 50 1 inh inhalation Q12H #60 ea 01/20/24 01/21/24 Rx mcg/dose blistr powdr for inhalation ([employer] [employer]) amlodipine 5 mg tablet 5 mg PO DAILY 01/21/24 01/21/24 History levothyroxine 75 mcg tablet 75 mcg PO DAILY 01/21/24 01/21/24 History Allergies Allergy/AdvReac Type Severity Reaction Status Date / Time No Known Allergies Allergy Verified 01/20/24 15:07 Vital Signs Vital Signs - 24 hr 01/20/24 14:44 01/20/24 15:06 01/20/24 15:17 Temperature 97.6 F Pulse Rate 128 H 145 H Respiratory Rate 22 H 31 H Blood Pressure 159/119 H Pulse Oximetry 93 94 01/20/24 15:30 01/20/24 15:31 01/20/24 17:10 Temperature Pulse Rate 157 H 150 H 98 Respiratory Rate 39 H 40 H Blood Pressure 143/70 H 158/92 H Pulse Oximetry 94 95 01/20/24 17:00 01/20/24 15:32 01/20/24 19:21 Temperature Pulse Rate 143 H 160 H 93 Respiratory Rate 18 30 H 24 H Blood Pressure 158/92 H 143/70 H Pulse Oximetry 94 95 01/20/24 19:29 01/20/24 19:42 01/20/24 19:30 Temperature Pulse Rate 94 123 H 101 H Respiratory Rate 24 H 28 H Blood Pressure 123/78 123/78 Pulse Oximetry 96 01/20/24 21:46 Temperature Pulse Rate 108 H Respiratory Rate 24 H Blood Pressure 101/82 Pulse Oximetry 94 Exam Const: General: in distress HENMT: Face/Nose/Sinus: Normal nares present Mouth: Yes moist mucous membranes Eyes: General: appearance normal, both eyes and all related structures Pupils: Equal, round and reactive pupils present EOM: EOMs intact bilaterally Neck: Neck: supple Thyroid: thyroid normal Resp: Auscultation: wheezes lower bilaterally and upper bilaterally Cardio: Rate: tachycardic Rhythm: abnormal rhythm GI: GI Palp: Yes Soft to palpation Skin: General skin exam: normal color Neuro: General: gait normal Motor exam (neuro): 5/5 motor strength present throughout and Normal motor muscle tone present throughout Psych: Mental Status: mental status grossly normal Affect: normal affect H&P: Results Labs Labs: Short CBC 01/20/24 Range/Units 15:09 WBC 11.2 H (4.5-10.0) K/mm3 Hgb 13.4 (12.0-15.0) g/dL Hct 41.0 (37.0-47.0) % Plt Count 211 (150-375) k/mm3 BMP 01/20/24 15:09 Sodium 136 L Potassium 4.0 Chloride 102 Carbon Dioxide 27 BUN 14 Creatinine 0.60 L Glucose 106 Calcium 9.1 Cardiac Enzymes 01/20/24 01/20/24 01/20/24 Range/Units 15:09 18:16 20:36 Troponin I < 0.012 < 0.012 < 0.012 (0.000-0.034) ng/mL Liver Function 01/20/24 Range/Units 15:09 Total Bilirubin 1.0 (0.2-1.3) mg/dL AST 29 (14-36) U/L ALT 29 (6-35) U/L Alkaline Phosphatase 126 (38-126) U/L Albumin 4.3 (3.5-5.1) g/dL Assessment and Plan Assessment and plan (1) Atrial fibrillation with rapid ventricular response: Code(s): I48.91 - Unspecified atrial fibrillation Status: Acute (2) Acute on chronic hypoxic respiratory failure: Code(s): J96.21 - Acute and chronic respiratory failure with hypoxia Status: Acute (3) COPD exacerbation: Code(s): J44.1 - Chronic obstructive pulmonary disease with (acute) exacerbation Status: Acute Plan Acute and principal conditions 1. Acute on chronic hypoxic respiratory failure 2. COPD exacerbation 3. A-fib with RVR, new onset ECHO, Telemetry Cardizem, Heparin gtt Zosyn pre-emptively, Solumedrol, Chronic and stable conditions 1. Obesity, BMI 40 2. Hypothyroidism. on Levothyroxine 3. COPD. Code status. Full Nutrition. Regular diet VTE prophylaxis. SCDs; Heparin gtt Hospitalist MIPS Advance Care Plan I have confirmed that the patient's Advanced Care Plan is present, code status is documented, or surrogate decision maker is listed in patient medical record.: Yes Medication Reconciliation I have utilized all available resources to obtain, update and review the patients current medications (includes all prescriptions, OTC, herbals, cannabis, and nutritional supplements).: Yes
[2024-01-20] MEDS: METOPROLOL TARTRATE 25 MG TABLET PO (23:05)
[2024-01-20] MEDS: HEPARIN SOD/D5W 100 UNITS/ML 25,000 UNITS/250 ML BAG 13 UNITS IV CONT (23:12)
[2024-01-21] VITALS (44 sets, daily range): BP systolic 84–136; BP diastolic 56–97; PULSE 68–149; RESP 18–35; TEMP 36.4–36.6; O2SAT 87–98; BMI 39.2
--- NOTE | 2024-01-21 | ECHO_ITS ---
Patient Info Name: Kanchan Abbott Age: 88 years : 1935 Gender: Female Ht: 62 in Wt: 223 lbs BSA: 2.16 m2 HR: 109 bpm BP: 118 / 83 mmHg Heart Rhythm: Atrial Fibrillation Technical Quality: Poor Exam Date: 01/21/2024 3:02 PM Exam Location: Echo Lab Patient Status: Outpatient Admit Date: 01/20/2024 Staff Ordering Physician: Oxana Fragoso Medical Coding Technician: Sandra Barreto RDCS Attending Provider: David Suarez MD Referring Physician: Fouzia CULLEN; Exam Type: CA echo dop color flow w con Study Info Indications - A-FIB Complete two-dimensional, color flow and Doppler transthoracic echocardiogram is performed with contrast to opacify the left ventricle and to improve the deliniation of the left ventricle endocardial borders. Contrast/Agitated Saline Contrast/Ag. Saline: Definity Amount: 2.00 ml Existing IV Access: Yes Reason for Poor Study: poor echocardiographic windows Summary 1. Left ventricular chamber dimension is normal. 2. Left ventricular systolic function is normal, estimated at 60-65%. 3. There is mildly increased left ventricular wall thickness. 4. The left ventricular diastolic function is indeterminate. 5. Right ventricular chamber dimension is mildly enlarged. 6. Left atrial chamber dimension is severely enlarged. 7. Right atrial chamber dimension is severely enlarged. 8. There is mild mitral valve regurgitation. 9. There is mild to moderate tricuspid valve regurgitation. 10. Mild pulmonary hypertension, estimated pulmonary arterial systolic pressure is 42 mmHg. 11. There is mild pulmonic regurgitation. 12. The aortic root size at the sinus of Valsalva is mildly dilated. 13. Dilated inferior vena cava with <50% collapse upon inspiration consistent with elevated right atrial pressure, 15 mmHg. Left Ventricle Left ventricular chamber dimension is normal. Left ventricular systolic function is normal, estimated at 60-65%. There is mildly increased left ventricular wall thickness. The left ventricular diastolic function is indeterminate. Right Ventricle Right ventricular chamber dimension is mildly enlarged. Right ventricular systolic function is normal. Left Atria Left atrial chamber dimension is severely enlarged. Right Atria Right atrial chamber dimension is severely enlarged. Atrial Septum Suspected patent foramen ovale visualized by color flow imaging. Aortic Valve The aortic valve is trileaflet. There is mild aortic valve sclerosis. There is no aortic valve stenosis. There is trace aortic valve regurgitation. Pulmonic Valve The pulmonic valve is normal. There is no pulmonic valve stenosis. There is mild pulmonic regurgitation. Mitral Valve The mitral valve has calcified annulus. There is no mitral valve stenosis. There is mild mitral valve regurgitation. Tricuspid Valve The tricuspid valve leaflets are normal. There is no significant tricuspid valve stenosis. There is mild to moderate tricuspid valve regurgitation. Mild pulmonary hypertension, estimated pulmonary arterial systolic pressure is 42 mmHg. Pericardium/Pleural The pericardium appears normal. There is no pericardial effusion. Inferior Vena Cava Dilated inferior vena cava with <50% collapse upon inspiration consistent with elevated right atrial pressure, 15 mmHg. Aorta The aortic root size at the sinus of Valsalva is mildly dilated. Left Ventricular Outflow Tract Name Value Normal LVOT 2D LVOT Diameter 1.92 cm LVOT Doppler LVOT Peak Gradient 3 mmHg LVOT Mean Gradient 2 mmHg LVOT VTI 14.86 cm LVOT VTI/AV VTI Ratio 0.96 LVOT Stroke Volume 43.13 ml LVOT CO 3.79 l/min LVOT CI 1.76 L/min/m2 Pulmonic Valve Name Value Normal RVOT Doppler RVOT Peak Gradient 2 mmHg PV Doppler PV Peak Gradient 3 mmHg Mitral Valve Name Value Normal MV Doppler MV Peak Gradient 5 mmHg MV Mean Gradient 2 mmHg MV Decel [place] 812.12 cm/s2 MV PHT 0 s MV Area (PHT) 5.97 cm2 4.00-5.00 MV Area (Cont Eq VTI) 1.97 cm2 MV Diastolic Function MV E Peak Velocity 103.26 cm/s MV A Peak Velocity 1.26 cm/s MV E/A 81.88 MV Decel Time 0 s MV Annular TDI MV E/e' (Septal) 9.53 <=8.00 MV E/e' (Lateral) 6.60 <=8.00 MV E/e' (Average) 8.07 Tricuspid Valve Name Value Normal TV Regurgitation Doppler TR Peak Velocity 257.62 cm/s TR Peak Gradient 27 mmHg Estimated PAP/RSVP RA Pressure 15 mmHg <=5 PA Systolic Pressure 42 mmHg <36 RV Systolic Pressure 42 mmHg <36 Aorta Name Value Normal Ascending Aorta Ao Root Diameter (MM) 3.83 cm Ao Root Diam Index (MM) 1.77 cm/m2 Aortic Valve Name Value Normal AV Doppler AV Peak Velocity 110.00 cm/s AV Peak Gradient 3 mmHg AV Mean Gradient 2 mmHg AV VTI 15.51 cm AV Area (Cont Eq VTI) 2.78 cm2 >=3.00 AV Area (Cont Eq [place]) 2.80 cm2 AV Regurgitation 2D LVOT Area 2.90 cm2 Ventricles Name Value Normal LV Dimensions 2D/MM IVS Diastolic Thickness (2D) 1.13 cm 0.60-1.00 LVID Diastole (2D) 4.70 cm 3.80-5.20 LVIW Diastolic Thickness (2D) 1.15 cm 0.60-0.90 LVID Systole (2D) 3.29 cm 2.20-3.50 LVOT Diameter 1.92 cm LV Mass (2D Cubed) 197.07 g 67.00-162.00 LV Mass Index (2D Cubed) 0.01 g/cm2 0.00-0.01 Relative Wall Thickness (2D) 0.49 LV Fractional Shortening/Ejection Fraction 2D/MM LV Fractional Shortening (2D) 30 % 27-45 LV EF (2D Teicholz) 57 % 54-74 Atria Name Value Normal LA Dimensions LA Dimension (MM) 4.07 cm 2.70-3.80 LA Volume (4C A-L) 111.21 ml LA Volume (BP A-L) 104.87 ml RA Dimensions RA Area (4C) 26.78 cm2 <=18.00 Report Signatures
[2024-01-21 05:42] LABS: Basophils Percent Auto 0.2 % (0.2-1.2); Hematocrit 37.9 % (37.0-47.0); Hemoglobin 12.2 g/dL (12.0-15.0); Immature Granulocyte Absolute 0.01 K/mm3 (0.00-0.031); Immature Granulocyte Percent A 0.2 % (0-0.5); Lymphocytes Percent Auto 9.1 % (18.3-44.2); Mean Corpuscular HGB Conc 32.2 g/dl (32-36); Mean Corpuscular Volume 93.1 fl (80-100); Mean Platelet Volume 11.6 fl (7.4-10.4); Monocytes Absolute Auto 0.1 K/mm3 (0.1-0.6); Monocytes Percent Auto 1.4 % (2.6-8.5); Neutrophils Absolute Auto 3.9 K/mm3 (1.3-6.7); Neutrophils Percent Auto 89.1 % (45.5-73.1); Platelet Count Result 173 k/mm3 (150-375); Red Blood Count 4.07 M/mm3 (4.2-5.4); Red Cell Distribution Width 14.3 % (11.5-14.5); White Blood Count 4.4 K/mm3 (4.5-10.0)
[2024-01-21 05:50] LABS: Alanine Aminotransferase 27 U/L (6-35); Albumin Level 3.9 g/dL (3.5-5.1); Alkaline Phosphatase 100 U/L (38-126); Anion Gap 6 mmol/L (4-12); Aspartate Amino Transferase 25 U/L (14-36); Bilirubin,Total 0.6 mg/dL (0.2-1.3); Blood Urea Nitrogen 21 mg/dL (7-17); Calcium 8.9 mg/dL (8.4-10.2); Carbon Dioxide 27 mmol/L (22-30); Chloride 104 mmol/L (98-107); Estimated CRCL calculation 55 ml/min; Estimated Glomerular Filt Rate > 60; Glucose 157 mg/dL (65-110); Potassium 4.4 mmol/L (3.4-5.0); Sodium 137 mmol/L (137-145)
[2024-01-21] MEDS: PIPERACILLN/TAZ 3.375GM/NS50ML 3.375 GM/50 ML BAG IVPB ×2 (06:41→13:25)
[2024-01-21 06:45] LABS: INR 1.3; Prothrombin Time 16.5 Seconds (11.1-14.7)
[2024-01-21 06:48] LABS: Partial Thromboplastin Time 113.2 Seconds (22.3-36.8)
--- NOTE | 2024-01-21 07:24 | PC.NURSE ---
Report given to ЕЛЕНА Ruth. No questions at this time.
[2024-01-21] MEDS: IPRATROPIUM 0.5 MG/ALBUTEROL SULFATE 2.5 MG AMPUL.NEB 3 ML INHALATION (07:58)
[2024-01-21] MEDS: methylPREDNISolone SOD SUCC 40 MG VIAL IV PUSH (08:40)
[2024-01-21] MEDS: METOPROLOL TARTRATE 25 MG TABLET PO ×3 (08:40→20:37)
--- NOTE | 2024-01-21 08:59 | PC.NURSE ---
Breakfast tray ordered
--- NOTE | 2024-01-21 09:54 | PC.NURSE ---
Pharmacy called for Donal. Spoke with [facility] will send dose.
--- NOTE | 2024-01-21 10:19 | PC.NURSE ---
Pt refusing Colace at this time.
--- NOTE | 2024-01-21 11:54 | P.CONCA_ITS ---
Assessment and Plan Assessment and plan (1) Atrial fibrillation with rapid ventricular response: Code(s): I48.91 - Unspecified atrial fibrillation Status: Acute Assessment and Plan: This is a new diagnosis. I discussed the diagnosis of atrial fibrillation including pathophysiology, management strategies, risks/complications. At this time, we will proceed with a rate control and anticoagulation strategy. * Will increase metoprolol to 25mg q8h * PRN lopressor for sustained HR >130 * She is on heparin gtt now which can be shifted to DOAC. ASA can be discontinued. * Check echo * Check TSH * If we have trouble rate controlling her can consider EVY/CV (2) Hypertension: Qualifiers: Hypertension type: primary hypertension Qualified Code(s): I10 - Essential (primary) hypertension Code(s): I10 - Essential (primary) hypertension Status: Acute Assessment and Plan: At goal (3) Hyperlipidemia: Qualifiers: Hyperlipidemia type: elevated lipoprotein(a) Qualified Code(s): E78.41 - Elevated Lipoprotein(a) Code(s): E78.5 - Hyperlipidemia, unspecified Status: Acute Assessment and Plan: TC 224 LDL 148 earlier this year. She should be on a statin. Start atorvastatin 40mg daily. (4) COPD exacerbation: Code(s): J44.1 - Chronic obstructive pulmonary disease with (acute) exacerbation Status: Acute Assessment and Plan: Management per hospitalist. History of Present Illness History of Present Illness Consult date/time: 01/21/24 11:54 Requesting physician: Michelle Boogie PA-C Consult reason: atrial fibrillation Reason For Visit: Atrial fibrillation with RVR Narrative: Kanchan Abbott is an 88 year old female with no previous cardiac history coming to the hospital from her primary care providers office because of tachycardia. She was being seen my her PCP for routine follow up. She was found to be in atrial fibrillation with rapid ventricular response and remains tachycardic at this point. She denies any palpitations or chest pain. She does feel short of breath which has been a symptom since late last week. She also m entioned right upper quadrant pain that started on Saturday but has since resolved. she is being treated for COPD exacerbation and in this setting she is being admitted for further management andd treatment. 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 Smoking packs per day: 1 Smoking cigarettes per day: 20.0 Years smoked: 30 Smoking pack-years: 30.00 Smoking status: Former smoker Second hand tobacco smoke exposure: Yes Alcohol intake: never Substance use: never Substance use type: does not use Do You Feel Safe in your Home?: Yes Lack of Transportation: No Lack of Food: Never True Current Housing: I Have Housing Concerned About Future Housing: No Difficulty Paying Gas/Electric Bills: No Difficulty Paying for Meds: No Currently Unemployed: No Education: High School Diploma/GED Difficulty w/ Childcare or Family Care: No Living arrangements: alone Occupation/Education: retired Gender identity (if verbalized by the patient): Female Spiritual care concerns: No Meds Home Medications and Allergies Home Medications Medication Instructions Recorded Confirmed Type aspirin 81 mg tablet,delayed 81 mg PO DAILY 03/02/19 01/21/24 History release dupilumab 300 mg/2 mL subcutaneous 300 mg subcut ONCE 03/02/19 01/21/24 History syringe (Dupixent) ascorbic acid (vitamin C) 1,000 mg 1 g PO DAILY 02/28/22 01/21/24 History capsule cholecalciferol (vitamin D3) 125 125 mcg PO DAILY 02/28/22 01/21/24 History mcg (5,000 unit) capsule calcium carbonate (Calcium 600) 600 mg PO DAILY 05/07/22 01/21/24 History mecobalamin (vitamin B12) 2,500 2,500 mcg PO DAILY 05/07/22 01/21/24 History mcg chewable tablet zinc glycinate 30 mg capsule 30 mg PO DAILY 09/03/22 01/21/24 History albuterol sulfate 2.5 mg/3 mL 2.5 mg (3 mL) inhalation Q4-6H PRN 09/25/23 01/21/24 Rx (0.083 %) solution for nebulization shortness of breath or wheezing #75 mL nebulizers (Compact Compressor #1 ea 09/25/23 01/21/24 Rx Nebulizer) albuterol sulfate 90 mcg/actuation 2 puff inhalation Q4H PRN 01/20/24 01/21/24 Rx aerosol inhaler shortness of breath or wheezing #8.5 grams fluticasone 100 mcg-salmeterol 50 1 inh inhalation Q12H #60 ea 01/20/24 01/21/24 Rx mcg/dose blistr powdr for inhalation (Wixela Inhub) amlodipine 5 mg tablet 5 mg PO DAILY 01/21/24 01/21/24 History levothyroxine 75 mcg tablet 75 mcg PO DAILY 01/21/24 01/21/24 History Allergies Allergy/AdvReac Type Severity Reaction Status Date / Time No Known Allergies Allergy Verified 01/20/24 15:07 Vital Signs Vital Signs - 24 hr 01/20/24 14:44 01/20/24 15:06 01/20/24 15:17 Temperature 36.4 C Pulse Rate 128 H 145 H Respiratory Rate 22 H 31 H Blood Pressure 159/119 H Pulse Oximetry 93 94 Oxygen Delivery Oxygen Flow Rate 01/20/24 15:30 01/20/24 15:31 01/20/24 17:10 Temperature Pulse Rate 157 H 150 H 98 Respiratory Rate 39 H 40 H Blood Pressure 143/70 H 158/92 H Pulse Oximetry 94 95 Oxygen Delivery Oxygen Flow Rate 01/20/24 17:00 01/20/24 15:32 01/20/24 19:21 Temperature Pulse Rate 143 H 160 H 93 Respiratory Rate 18 30 H 24 H Blood Pressure 158/92 H 143/70 H Pulse Oximetry 94 95 Oxygen Delivery Oxygen Flow Rate 01/20/24 19:29 01/20/24 19:42 01/20/24 19:30 Temperature Pulse Rate 94 123 H 101 H Respiratory Rate 24 H 28 H Blood Pressure 123/78 123/78 Pulse Oximetry 96 Oxygen Delivery Oxygen Flow Rate 01/20/24 21:46 01/20/24 23:05 01/20/24 23:00 Temperature Pulse Rate 108 H 119 H 104 H Respiratory Rate 24 H 27 H Blood Pressure 101/82 122/94 H Pulse Oximetry 94 94 Oxygen Delivery Oxygen Flow Rate 01/21/24 01:31 01/21/24 02:50 01/21/24 03:31 Temperature Pulse Rate 88 100 81 Respiratory Rate 24 H 20 Blood Pressure 102/79 123/75 114/66 Pulse Oximetry 95 92 Oxygen Delivery Oxygen Flow Rate 01/21/24 05:43 01/20/24 19:45 01/21/24 07:59 Temperature Pulse Rate 105 H 132 H Respiratory Rate 24 H 25 H Blood Pressure 132/93 H Pulse Oximetry 96 94 Oxygen Delivery Nasal Cannula Oxygen Flow Rate 2 01/21/24 08:00 01/21/24 08:09 01/21/24 08:40 Temperature Pulse Rate 126 H 116 H Respiratory Rate 23 H Blood Pressure Pulse Oximetry 95 Oxygen Delivery Nasal Cannula Oxygen Flow Rate 2 01/21/24 09:46 01/21/24 07:00 01/21/24 09:48 Temperature 36.6 C Pulse Rate 101 H 98 Respiratory Rate 18 Blood Pressure 120/90 Pulse Oximetry 97 98 Oxygen Delivery Nasal Cannula Oxygen Flow Rate 2 01/21/24 09:49 Temperature Pulse Rate Respiratory Rate Blood Pressure Pulse Oximetry 98 Oxygen Delivery Nasal Cannula Oxygen Flow Rate 2 Exam Const: General: comfortable, no acute distress, alert and awake Orientation/consciousness: patient oriented x3 HENMT: Head: normal to inspection Eyes: General: appearance normal, both eyes and all related structures Pupils: Equal, round and reactive pupils present Neck: Neck: normal visual inspection, supple and no JVD Carotids: normal carotid upstroke Resp: Auscultation: not clear to auscultation bilaterally, rales and wheezes Cardio: Rate: tachycardic Rhythm: abnormal rhythm irregularly irregular Heart sounds: S1 normal heart sound present, S2 normal heart sound present and no murmurs GI: Auscultation: normal bowel sounds Skin: General skin exam: normal color Neuro: General: patient oriented x3 Cranial nerves: Yes Equal, round and reactive pupils present Extrem: General: normal to inspection Psych: Appearance: grossly normal Mental Status: mental status grossly normal Results Labs and Meds 01/21/24 05:21 01/21/24 05:21 Lab results: Cardiac Enzymes 01/20/24 01/20/24 01/20/24 Range/Units 15:09 18:16 20:36 AST 29 (14-36) U/L Troponin I < 0.012 < 0.012 < 0.012 (0.000-0.034) ng/mL 01/21/24 Range/Units 05:21 AST 25 (14-36) U/L Troponin I (0.000-0.034) ng/mL Coagulation 01/20/24 01/21/24 Range/Units 15:09 05:21 PT 15.9 H 16.5 H (11.1-14.7) Seconds APTT 31.9 113.2 H (22.3-36.8) Seconds CBC 01/20/24 01/21/24 Range/Units 15:09 05:21 WBC 11.2 H 4.4 L (4.5-10.0) K/mm3 RBC 4.44 4.07 L (4.2-5.4) M/mm3 Hgb 13.4 12.2 (12.0-15.0) g/dL Hct 41.0 37.9 (37.0-47.0) % Plt Count 211 173 (150-375) k/mm3 Lymph # (Auto) 0.90 0.40 L (0.9-3.2) K/mm3 Phelps # (Auto) 1.3 H 0.1 (0.1-0.6) K/mm3 Eos # (Auto) 0.1 0.0 (0-0.3) K/mm3 Baso # (Auto) 0.1 0.0 (0.0-0.1) K/mm3 Comprehensive Metabolic Panel 01/20/24 01/21/24 Range/Units 15:09 05:21 Sodium 136 L 137 (137-145) mmol/L Potassium 4.0 4.4 (3.4-5.0) mmol/L Chloride 102 104 (98-107) mmol/L Carbon Dioxide 27 27 (22-30) mmol/L BUN 14 21 H (7-17) mg/dL Creatinine 0.60 L 0.70 (0.7-1.0) mg/dL Glucose 106 157 H (65-110) mg/dL Calcium 9.1 8.9 (8.4-10.2) mg/dL AST 29 25 (14-36) U/L ALT 29 27 (6-35) U/L Alkaline Phosphatase 126 100 (38-126) U/L Total Protein 7.0 7.0 (6.3-8.2) g/dL Albumin 4.3 3.9 (3.5-5.1) g/dL Intake and Output 01/20/24 01/21/24 01/21/24 23:59 07:59 15:59 Intake Total 11.7 188.4 Balance 11.7 188.4 Intake: IV 11.7 188.4 Heparin Sod/D5w 100 Units/ml 25 100.1 ,000 units In 250 ml @ 1,300 UNITS/HR 13 mls/hr IV CONT . [id number] ON LICENSE OF [facility] Rx#:[id number] dilTIAZem 100 MG/100 ML 100 mg 11.7 88.3 In 100 ml @ 5 MG/HR 5 mls/hr IV CONT .Q20H STA Rx#:[id number]
--- NOTE | 2024-01-21 12:59 | ADMGEN ---
This patient, Kanchan Abbott, was admitted to Intensive Care Unit-5. Patient/family oriented to hospital policies and general routines including ID bracelet, bed and alarms, visiting hours, pain management, procedures, bathroom and other care routines, personal items, smoking policy, room service/diet, and visiting hours. Information on how to activate the Rapid Response Team has been discussed. Patient/Family are encouraged to report perceived risks to care and to ask questions if they do not understand what they are told or what they should do.
[2024-01-21 13:10] LABS: INR 1.3; Prothrombin Time 16.5 Seconds (11.1-14.7)
[2024-01-21 13:13] LABS: Partial Thromboplastin Time 117.7 Seconds (22.3-36.8)
[2024-01-21] MEDS: CYANOCOBALAMIN 1,000 MCG TABLET 2000 MCG PO (13:21)
[2024-01-21] MEDS: ASCORBIC ACID 500 MG TABLET 1000 MG PO (13:22)
[2024-01-21] MEDS: LEVOTHYROXINE SODIUM 75 MCG TABLET PO (13:22)
[2024-01-21] MEDS: CYANOCOBALAMIN 500 MCG TABLET PO (13:23)
[2024-01-21] MEDS: CHOLECALCIFEROL 5,000 UNITS TABLET 5000 UNITS BY MOUTH (13:27)
[2024-01-21 13:47] LABS: Thyroid Stimulating Hormone 0.936 uIU/mL (0.465-4.680)
[2024-01-21] MEDS: PERFLUTREN LIPID MICROSPHERES 1.5 ML VIAL DILUTED TO 10 ML TOTAL VOLUME IV PUSH (15:30)
--- NOTE | 2024-01-21 16:37 | IVDEFINITY ---
Prior to administration of IV Definity the patient was educated on the risks and benefits of the imaging enhancing agent including potential adverse side effects. The patient verbalized understanding. Allergies were verified. No exclusion criteria were identified and at least one of the following inclusion criteria were met: 1) physician request, 2) patient technically difficult to image (per the [place] [employer] guidelines of two or more segments not discernable within the apical view), or 3) questionable left ventricular function. ?
[2024-01-21] MEDS: HEPARIN SOD/D5W 100 UNITS/ML 25,000 UNITS/250 ML BAG 11 UNITS IV CONT (18:42)
[2024-01-21] MEDS: METOPROLOL TARTRATE INJ 5 MG/5 ML VIAL IV PUSH (18:43)
[2024-01-21 20:30] LABS: Partial Thromboplastin Time 67.8 Seconds (22.3-36.8)
[2024-01-21] MEDS: DOCUSATE SODIUM 100 MG CAPSULE PO (20:37)
[2024-01-21] MEDS: FLUTICASONE/SALMETEROL 45-21 MCG INHALER 1 PUFF 2 PUFF INHALATION (20:51)
[2024-01-21] MEDS: APIXABAN 5 MG TABLET PO (21:00)
[2024-01-22] VITALS (29 sets, daily range): BP systolic 102–132; BP diastolic 70–99; PULSE 96–153; RESP 18–24; TEMP 36.3–36.6; O2SAT 90–100; BMI 46.9
[2024-01-22] MEDS: METOPROLOL TARTRATE INJ 5 MG/5 ML VIAL IV PUSH ×3 (02:14→20:13)
[2024-01-22 04:19] LABS: Basophils Percent Auto 0.1 % (0.2-1.2); Hematocrit 36.4 % (37.0-47.0); Hemoglobin 11.7 g/dL (12.0-15.0); Immature Granulocyte Absolute 0.03 K/mm3 (0.00-0.031); Immature Granulocyte Percent A 0.4 % (0-0.5); Lymphocytes Percent Auto 5.9 % (18.3-44.2); Mean Corpuscular HGB Conc 32.1 g/dl (32-36); Mean Corpuscular Volume 93.3 fl (80-100); Mean Platelet Volume 12.2 fl (7.4-10.4); Monocytes Absolute Auto 0.6 K/mm3 (0.1-0.6); Monocytes Percent Auto 8.5 % (2.6-8.5); Neutrophils Absolute Auto 5.8 K/mm3 (1.3-6.7); Neutrophils Percent Auto 85.1 % (45.5-73.1); Platelet Count Result 185 k/mm3 (150-375); Red Cell Distribution Width 14.6 % (11.5-14.5); White Blood Count 6.8 K/mm3 (4.5-10.0)
[2024-01-22 05:01] LABS: Alanine Aminotransferase 52 U/L (6-35); Albumin Level 3.8 g/dL (3.5-5.1); Alkaline Phosphatase 107 U/L (38-126); Anion Gap 6 mmol/L (4-12); Aspartate Amino Transferase 45 U/L (14-36); Bilirubin,Total 0.5 mg/dL (0.2-1.3); Blood Urea Nitrogen 36 mg/dL (7-17); Calcium 8.6 mg/dL (8.4-10.2); Carbon Dioxide 26 mmol/L (22-30); Chloride 103 mmol/L (98-107); Estimated CRCL calculation 48 ml/min; Estimated Glomerular Filt Rate > 60; Glucose 141 mg/dL (65-110); Potassium 4.2 mmol/L (3.4-5.0); Sodium 135 mmol/L (137-145)
--- NOTE | 2024-01-22 05:16 | PC.NURSE ---
This patient, Kanchan Abbott, was transferred to [facility] on 01/22/24 at 0510. Personal belongings sent with patient. Report given to ЕЛЕНА Morales. Appropriate documentation sent with patient.
--- NOTE | 2024-01-22 05:16 | PC.NURSE ---
This patient, Kanchan Abbott, was received from ICU 5 on 01/22/24 at 0512. Patient/family oriented to unit policies and routines. Report received from Marichuy Alarcon RN
[2024-01-22] MEDS: METOPROLOL TARTRATE 25 MG TABLET PO (05:21)
[2024-01-22] MEDS: LEVOTHYROXINE SODIUM 75 MCG TABLET PO (05:21)
[2024-01-22] MEDS: FLUTICASONE/SALMETEROL 45-21 MCG INHALER 1 PUFF 2 PUFF INHALATION ×2 (07:35→21:35)
[2024-01-22] MEDS: CYANOCOBALAMIN 500 MCG TABLET PO (08:37)
[2024-01-22] MEDS: CALCIUM CARBONATE (OSCAL) 500 MG TABLET PO (08:37)
[2024-01-22] MEDS: ASCORBIC ACID 500 MG TABLET 1000 MG PO (08:37)
[2024-01-22] MEDS: DOCUSATE SODIUM 100 MG CAPSULE PO (08:37)
[2024-01-22] MEDS: ATORVASTATIN 40 MG TABLET PO (08:37)
[2024-01-22] MEDS: APIXABAN 5 MG TABLET PO ×2 (08:37→20:14)
[2024-01-22] MEDS: CYANOCOBALAMIN 1,000 MCG TABLET 2000 MCG PO (08:37)
[2024-01-22] MEDS: CHOLECALCIFEROL 5,000 UNITS TABLET 5000 UNITS BY MOUTH (08:38)
[2024-01-22] MEDS: FUROSEMIDE INJ 40 MG/4 ML VIAL IV PUSH ×2 (09:13→16:35)
--- NOTE | 2024-01-22 09:57 | P.PNCA_ITS ---
Progress Note: A&P Assessment and Plan (1) Atrial fibrillation with rapid ventricular response: Code(s): I48.91 - Unspecified atrial fibrillation Status: Acute Assessment and Plan: This is a new diagnosis. I discussed the diagnosis of atrial fibrillation including pathophysiology, management strategies, risks/complications. At this time, we will proceed with a rate control and anticoagulation strategy. * Will further increase metoprolol to 50 mg p.o. Q 8 hours. She may respond better to calcium channel lizette especially given underlying COPD but will await the results of the echo to make this decision. * PRN lopressor for sustained HR >130 * Continue Eliquis * Echo pending * * If we have trouble rate controlling will performed EVY/CV. Likely will be needed (2) Hypertension: Qualifiers: Hypertension type: primary hypertension Qualified Code(s): I10 - Essential (primary) hypertension Code(s): I10 - Essential (primary) hypertension Status: Acute Assessment and Plan: At goal (3) Hyperlipidemia: Qualifiers: Hyperlipidemia type: elevated lipoprotein(a) Qualified Code(s): E78.41 - Elevated Lipoprotein(a) Code(s): E78.5 - Hyperlipidemia, unspecified Status: Acute Assessment and Plan: Continue atorvastatin 40mg daily. (4) COPD exacerbation: Code(s): J44.1 - Chronic obstructive pulmonary disease with (acute) exacerbation Status: Acute Assessment and Plan: Management per hospitalist. Subjective Date/time seen: 01/22/24 09:57 Interval history: 88-year-old with atrial fibrillation Follow-up note 01/22/2024: She feels relatively okay. Has no chest pain. Baseline shortness of breath and is on chronic oxygen. No palpitations Review of Systems Review of Systems: All systems reviewed & are unremarkable except as noted in HPI and below Constitutional: Constitutional: Denies body ache(s) Cardiovascular: Cardiovascular: Denies chest pain and Denies palpitations Respiratory: Respiratory: Denies hemoptysis Gastrointestinal: Gastrointestinal: Denies abdominal pain Genitourinary: Genitourinary: Denies hematuria Neurologic: Denies Abnormal speech present Hematologic/Lymphatic: Hematologic/Lymphatic: Denies easy bleeding Exam Const: General: comfortable, no acute distress, alert and awake Orientation/consciousness: patient oriented x3 HENMT: Head: normal to inspection Eyes: General: appearance normal, both eyes and all related structures Sclera: sclerae normal Neck: Neck: normal visual inspection, supple and no JVD Carotids: normal carotid upstroke Resp: Auscultation: not clear to auscultation bilaterally, rales and diminished lung sounds Cardio: Rate: tachycardic Rhythm: abnormal rhythm irregularly irregular Heart sounds: S1 normal heart sound present, S2 normal heart sound present and no murmurs GI: Auscultation: normal bowel sounds Skin: General skin exam: normal color Neuro: General: patient oriented x3 Speech: normal speech Sensory Exam: normal sensation Extrem: General: normal to inspection Psych: Appearance: grossly normal Mental Status: mental status grossly normal Objective Data Vital Signs Vital Signs: Vital Signs - 24 hr 01/21/24 10:12 01/21/24 10:15 01/21/24 10:30 Temperature Pulse Rate 109 H 116 H 127 H Respiratory Rate 26 H 21 H 32 H Blood Pressure Pulse Oximetry 92 Oxygen Delivery Oxygen Flow Rate Fraction of Inspired Oxygen 01/21/24 10:32 01/21/24 10:45 01/21/24 11:41 Temperature Pulse Rate 131 H 112 H 149 H Respiratory Rate 27 H 26 H 35 H Blood Pressure 84/56 L 115/76 Pulse Oximetry Oxygen Delivery Oxygen Flow Rate Fraction of Inspired Oxygen 01/21/24 12:43 01/21/24 13:00 01/21/24 13:17 Temperature 36.4 C L 36.6 C Pulse Rate 114 H 125 H 125 H Respiratory Rate 22 H 24 H 24 H Blood Pressure 108/97 H 118/83 Pulse Oximetry 95 95 95 Oxygen Delivery Nasal Cannula Oxygen Flow Rate 2 Fraction of Inspired Oxygen 01/21/24 13:21 01/21/24 14:16 01/21/24 14:00 Temperature Pulse Rate 113 H 109 H Respiratory Rate Blood Pressure Pulse Oximetry 95 Oxygen Delivery Nasal Cannula Oxygen Flow Rate 2 Fraction of Inspired Oxygen 01/21/24 13:11 01/21/24 16:00 01/21/24 16:00 Temperature 36.4 C Pulse Rate 107 H 128 H 128 H Respiratory Rate 18 18 Blood Pressure 136/86 Pulse Oximetry 94 94 Oxygen Delivery Nasal Cannula Oxygen Flow Rate 2 Fraction of Inspired Oxygen 01/21/24 16:00 01/21/24 18:00 01/21/24 18:43 Temperature Pulse Rate 132 H 120 H 136 H Respiratory Rate Blood Pressure Pulse Oximetry Oxygen Delivery Oxygen Flow Rate Fraction of Inspired Oxygen 01/21/24 20:21 01/21/24 20:37 01/21/24 20:52 Temperature 36.6 C Pulse Rate 143 H 112 H 110 H Respiratory Rate 23 H 20 Blood Pressure 112/92 H Pulse Oximetry 94 Oxygen Delivery Oxygen Flow Rate Fraction of Inspired Oxygen 01/21/24 20:00 01/21/24 20:00 01/22/24 00:27 Temperature 36.4 C L Pulse Rate 121 H 123 H Respiratory Rate 24 H Blood Pressure 127/87 Pulse Oximetry 91 94 Oxygen Delivery Nasal Cannula Oxygen Flow Rate 2 Fraction of Inspired Oxygen 01/22/24 00:00 01/22/24 00:00 01/22/24 02:14 Temperature Pulse Rate 111 H 133 H Respiratory Rate Blood Pressure Pulse Oximetry 90 Oxygen Delivery Nasal Cannula Oxygen Flow Rate 2 Fraction of Inspired Oxygen 01/22/24 02:00 01/22/24 04:00 01/22/24 04:23 Temperature 36.3 C L Pulse Rate 109 H 118 H Respiratory Rate 18 Blood Pressure 132/99 H Pulse Oximetry 97 100 Oxygen Delivery Nasal Cannula Oxygen Flow Rate 3 Fraction of Inspired Oxygen 01/22/24 04:00 01/22/24 05:17 01/22/24 05:20 Temperature 36.4 C Pulse Rate 129 H 138 H 138 H Respiratory Rate 24 H Blood Pressure 114/70 Pulse Oximetry 96 Oxygen Delivery Oxygen Flow Rate Fraction of Inspired Oxygen 01/22/24 05:21 01/22/24 05:56 01/22/24 07:53 Temperature 36.3 C L Pulse Rate 138 H 103 H 107 H Respiratory Rate 20 Blood Pressure 119/76 Pulse Oximetry 97 Oxygen Delivery Oxygen Flow Rate Fraction of Inspired Oxygen 01/22/24 07:35 01/22/24 08:00 Temperature Pulse Rate Respiratory Rate Blood Pressure Pulse Oximetry 95 97 Oxygen Delivery Nasal Cannula Nasal Cannula Oxygen Flow Rate 2 2 Fraction of Inspired Oxygen 28 Intake/Output Intake/Output: Intake & Output 01/19/24 01/20/24 01/21/24 01/22/24 23:59 23:59 23:59 23:59 Intake Total 11.7 639.2 590 Output Total 150 Balance 11.7 489.2 590 Meds/Results Medications: Active Medications Generic Name Dose Route Start Last Admin Trade Name Freq PRN Reason Stop Dose Admin Acetaminophen 650 mg 01/20/24 22:25 Acetaminophen 325 Mg Tablet PO Q4H PRN Mild Pain (1-3) or Fever Albuterol 2 puff 01/21/24 10:43 Albuterol Sulfate (*Sp) Aerosol 1 Puff INHALATION Q4H PRN shortness of breath or wheezing Apixaban 5 mg 01/21/24 21:00 01/22/24 08:37 Apixaban 5 Mg Tablet PO 5 mg Q12HR MIGUEL Administration Ascorbic Acid 1,000 mg 01/21/24 09:00 01/22/24 08:37 Ascorbic Acid 500 Mg Tablet PO 1,000 mg QAM MIGUEL Administration Atorvastatin Calcium 40 mg 01/22/24 09:00 01/22/24 08:37 Atorvastatin 40 Mg Tablet PO 40 mg DAILY MIGUEL Administration Bisacodyl 5 mg 01/20/24 22:25 Bisacodyl 5 Mg Tablet Ec PO DAILY PRN Constipation Calcium Carbonate 500 mg 01/22/24 09:00 01/22/24 08:37 Calcium Carbonate (Oscal) 500 Mg Tablet PO 500 mg QAM [facility] Administration Cyanocobalamin 2,000 mcg 01/21/24 11:00 01/22/24 08:37 Cyanocobalamin 1,000 Mcg Tablet PO 2,000 mcg QAM [facility] Administration Cyanocobalamin 500 mcg 01/21/24 11:00 01/22/24 08:37 Cyanocobalamin 500 Mcg Tablet PO 500 mcg QAM [facility] Administration Docusate Sodium 100 mg 01/21/24 09:00 01/22/24 08:37 Docusate Sodium 100 Mg Capsule PO 100 mg Q12HR MIGUEL Administration Furosemide 40 mg 01/22/24 09:00 01/22/24 09:13 Furosemide Inj 40 Mg/4 Ml Vial IV PUSH 40 mg BID MIGUEL Administration Levalbuterol HCl 1.25 mg 01/21/24 14:12 Levalbuterol Neb 1.25 Mg/3 Ml INHALATION Q6HRT PRN Wheezing Levothyroxine Sodium 75 mcg 01/21/24 10:45 01/22/24 05:21 Levothyroxine Sodium 75 Mcg Tablet PO 75 mcg DAILY@0630 MIGUEL Administration Metoprolol Tartrate 25 mg 01/21/24 12:45 01/22/24 05:21 Metoprolol Tartrate 25 Mg Tablet PO 25 mg Q8HR MIGUEL Administration Metoprolol Tartrate 5 mg 01/21/24 12:54 01/22/24 05:20 Metoprolol Tartrate Inj 5 Mg/5 Ml Vial IV PUSH 5 mg Q2H PRN Administration Tachycardia Fluticasone/Salmeterol 2 puff 01/21/24 11:00 01/22/24 07:35 Fluticasone/Salmeterol 45-21 Mcg Inhaler 1 Puff INHALATION 2 puff Q12HRT MIGUEL Administration Vitamin D 5,000 units 01/21/24 09:00 01/22/24 08:38 Cholecalciferol 5,000 Units Tablet BY MOUTH 5,000 units DAILY MIGUEL Administration Radiology Results: ITS Impressions Chest X-Ray 01/20/24 15:13 IMPRESSION: 1. Cardiomegaly. Labs Labs: Laboratory Results - last 24 hr 01/21/24 01/21/24 01/21/24 05:18 12:47 19:44 WBC RBC Hgb Hct MCV MCH MCHC RDW Plt Count MPV Immature Gran % (Auto) Neut % (Auto) Lymph % (Auto) Reagan % (Auto) Eos % (Auto) Baso % (Auto) Lymph # (Auto) Reagan # (Auto) Eos # (Auto) Baso # (Auto) Abs Immat Gran (auto) Absolute Neuts (auto) Absolute Nucleated RBC Nucleated RBC % PT 16.5 H INR 1.3 APTT 117.7 H 67.8 H Sodium Potassium Chloride Carbon Dioxide Anion Gap BUN Creatinine Estim Creat Clear Calc Estimated GFR Glucose Calcium Total Bilirubin AST ALT Alkaline Phosphatase Total Protein Albumin TSH 0.936 01/22/24 03:42 WBC 6.8 RBC 3.90 L Hgb 11.7 L Hct 36.4 L MCV 93.3 MCH 30.0 MCHC 32.1 RDW 14.6 H Plt Count 185 MPV 12.2 H Immature Gran % (Auto) 0.4 Neut % (Auto) 85.1 H Lymph % (Auto) 5.9 L Reagan % (Auto) 8.5 Eos % (Auto) 0.0 Baso % (Auto) 0.1 L Lymph # (Auto) 0.40 L Reagan # (Auto) 0.6 Eos # (Auto) 0.0 Baso # (Auto) 0.0 Abs Immat Gran (auto) 0.03 Absolute Neuts (auto) 5.8 Absolute Nucleated RBC 0.000 Nucleated RBC % 0.0 PT INR APTT Sodium 135 L Potassium 4.2 Chloride 103 Carbon Dioxide 26 Anion Gap 6 BUN 36 H D Creatinine 0.80 Estim Creat Clear Calc 48 Estimated GFR > 60 Glucose 141 H Calcium 8.6 Total Bilirubin 0.5 AST 45 H ALT 52 H Alkaline Phosphatase 107 Total Protein 6.0 L Albumin 3.8 TSH
--- NOTE | 2024-01-22 14:21 | PHAR ---
The patient's home med of Dupixent 300mg has been verified.
--- NOTE | 2024-01-22 14:45 | PM.IMPN ---
Progress Note: A&P Assessment and Plan (1) Acute on chronic hypoxic respiratory failure: Code(s): J96.21 - Acute and chronic respiratory failure with hypoxia Status: Acute Assessment and Plan: - Possibly secondary to #2 below vs CHF Exacerbation vs COPD exacerbation. - Placed on 1L/NC Home O2 but admits not to wearing it as scheduled. - Pt thought wearing home O2 in the house for some time would provide enough O2 to perform errands without it. - We'll give a dose of PO steroids, consider further steroids needs in AM. - Currently on 2L/NC for sats > 90 %. - Continue nebs bronchodilators. (2) Atrial fibrillation with rapid ventricular response: Code(s): I48.91 - Unspecified atrial fibrillation Status: Acute Assessment and Plan: - Rate still uncontrolled this AM; 120's-130's. - Metoprolol dose increased. - Cardiology to consider calcium channel lizette when rate controlled. - Possibly EVY/CV if unable to be controlled by meds. ECHO: LV Systolic function 60-65% - Right atrial chamber dimension is severely enlarged. - There is mild mitral valve regurgitation. - .There is mild to moderate tricuspid valve regurgitation. - Continue Eliquis. - Continue tele monitoring. - Cardiology following. (3) Acute heart failure with preserved ejection fraction (HFpEF): Code(s): I50.31 - Acute diastolic (congestive) heart failure Status: Acute Assessment and Plan: - BNP 5070. - ECHO showing LV systolic function 60-65%. - Right atrial chamber dimension is severely enlarged. - There is mild mitral valve regurgitation. - There is mild to moderate tricuspid valve regurgitation. - Started on Lasix IV BID. - Monitor I & O's with daily weights. (4) COPD exacerbation: Code(s): J44.1 - Chronic obstructive pulmonary disease with (acute) exacerbation Status: Acute Assessment and Plan: - Possibly acute on chronic. - We'll give a dose of PO steroids. - Further mgt as above. - Currently on @L/NC for sats > 90 % - Monitor closely for decompensation. Plan Acute and principal conditions 1. Acute on chronic hypoxic respiratory failure 2. COPD exacerbation 3. Acute on Chronic HFpEF 4. A-fib with RVR, new onset ECHO, Telemetry Cardizem, Heparin gtt Zosyn pre-emptively, Solumedrol, Chronic and stable conditions 1. Obesity, BMI 40, encouraged with lifestyle modification. 2. Hypothyroidism. on Levothyroxine Code status. Full Nutrition. Regular diet VTE prophylaxis. SCDs; Heparin gtt Time Spent With Patient Time with patient: 25 - 35 minutes Subjective Date/time seen: 01/22/24 14:45 Patient states she has been SOB for a while and it's gotten worse recently as she was using her supplemental O2 the wrong way. States she thought she could wear her O2 for a brief duration, and that would be enough to sustain her as she ran her errands, without wearing it all the time. Reports single episode of V-Tach or A-Fib during her knee arthroplasty and it was fixed during the surgery and never recurred again. Interval history: Patient seated bedside and noted with conversational dyspnea. States she's still SOB with minimal exertion, affecting her home activity. Review of Systems Review of Systems: All systems reviewed & are unremarkable except as noted in HPI and below Exam Extrem: Other: General: Conversational dyspnea, SOB with minimal exertion. HEENT: Atraumatic, PERRL, moist mucosa, EOM, anicteric. NECK: Supple. Lungs: Faint expiratory wheezes and diminished bilaterally. Heart: Irregularly irregular, no murmurs. Abdomen: Soft, non-tender, non-distended, obese, +ve bowel sounds X4 quadrants. Extremities: Acyanotic, trace edema bilatearally. Skin: Warm and dry with no lesions. Neuro: Well oriented with some confusion episodes. CN II-XII grossly intact. Psych: Calm and co-operative. Objective Data Vital Signs Vital Signs: Vital Signs - 24 hr 01/21/24 16:00 01/21/24 16:00 01/21/24 16:00 Temperature 97.6 F Pulse Rate 128 H 128 H 132 H Respiratory Rate 18 18 Blood Pressure 136/86 Pulse Oximetry 94 94 Oxygen Delivery Nasal Cannula Oxygen Flow Rate 2 Fraction of Inspired Oxygen 01/21/24 18:00 01/21/24 18:43 01/21/24 20:21 Temperature 97.8 F Pulse Rate 120 H 136 H 143 H Respiratory Rate 23 H Blood Pressure 112/92 H Pulse Oximetry 94 Oxygen Delivery Oxygen Flow Rate Fraction of Inspired Oxygen 01/21/24 20:37 01/21/24 20:52 01/21/24 20:00 Temperature Pulse Rate 112 H 110 H Respiratory Rate 20 Blood Pressure Pulse Oximetry 91 Oxygen Delivery Nasal Cannula Oxygen Flow Rate 2 Fraction of Inspired Oxygen 01/21/24 20:00 01/22/24 00:27 01/22/24 00:00 Temperature 97.5 F L Pulse Rate 121 H 123 H Respiratory Rate 24 H Blood Pressure 127/87 Pulse Oximetry 94 90 Oxygen Delivery Nasal Cannula Oxygen Flow Rate 2 Fraction of Inspired Oxygen 01/22/24 00:00 01/22/24 02:14 01/22/24 02:00 Temperature Pulse Rate 111 H 133 H 109 H Respiratory Rate Blood Pressure Pulse Oximetry Oxygen Delivery Oxygen Flow Rate Fraction of Inspired Oxygen 01/22/24 04:00 01/22/24 04:23 01/22/24 04:00 Temperature 97.4 F L Pulse Rate 118 H 129 H Respiratory Rate 18 Blood Pressure 132/99 H Pulse Oximetry 97 100 Oxygen Delivery Nasal Cannula Oxygen Flow Rate 3 Fraction of Inspired Oxygen 01/22/24 05:17 01/22/24 05:20 01/22/24 05:21 Temperature 97.6 F Pulse Rate 138 H 138 H 138 H Respiratory Rate 24 H Blood Pressure 114/70 Pulse Oximetry 96 Oxygen Delivery Oxygen Flow Rate Fraction of Inspired Oxygen 01/22/24 05:56 01/22/24 07:53 01/22/24 07:35 Temperature 97.3 F L Pulse Rate 103 H 107 H Respiratory Rate 20 Blood Pressure 119/76 Pulse Oximetry 97 95 Oxygen Delivery Nasal Cannula Oxygen Flow Rate 2 Fraction of Inspired Oxygen 28 01/22/24 08:00 01/22/24 08:00 01/22/24 10:00 Temperature Pulse Rate 120 H 117 H Respiratory Rate Blood Pressure Pulse Oximetry 97 Oxygen Delivery Nasal Cannula Oxygen Flow Rate 2 Fraction of Inspired Oxygen 01/22/24 12:06 01/22/24 12:00 01/22/24 12:00 Temperature 97.7 F Pulse Rate 127 H 148 H Respiratory Rate 18 Blood Pressure 122/76 Pulse Oximetry 96 96 Oxygen Delivery Nasal Cannula Oxygen Flow Rate 2 Fraction of Inspired Oxygen 01/22/24 14:00 Temperature Pulse Rate 127 H Respiratory Rate Blood Pressure Pulse Oximetry Oxygen Delivery Oxygen Flow Rate Fraction of Inspired Oxygen Intake/Output Intake/Output: Intake & Output 01/19/24 01/20/24 01/21/24 01/22/24 23:59 23:59 23:59 23:59 Intake Total 11.7 639.2 710 Output Total 150 200 Balance 11.7 489.2 510 Meds/Results Medications: Active Medications Generic Name Dose Route Start Last Admin Trade Name Freq PRN Reason Stop Dose Admin Acetaminophen 650 mg 01/20/24 22:25 Acetaminophen 325 Mg Tablet PO Q4H PRN Mild Pain (1-3) or Fever Albuterol 2 puff 01/21/24 10:43 Albuterol Sulfate (*Sp) Aerosol 1 Puff INHALATION Q4H PRN shortness of breath or wheezing Apixaban 5 mg 01/21/24 21:00 01/22/24 08:37 Apixaban 5 Mg Tablet PO 5 mg Q12HR MIGUEL Administration Ascorbic Acid 1,000 mg 01/21/24 09:00 01/22/24 08:37 Ascorbic Acid 500 Mg Tablet PO 1,000 mg QAM MIGUEL Administration Atorvastatin Calcium 40 mg 01/22/24 09:00 01/22/24 08:37 Atorvastatin 40 Mg Tablet PO 40 mg DAILY MIGUEL Administration Bisacodyl 5 mg 01/20/24 22:25 Bisacodyl 5 Mg Tablet Ec PO DAILY PRN Constipation Calcium Carbonate 500 mg 01/22/24 09:00 01/22/24 08:37 Calcium Carbonate (Oscal) 500 Mg Tablet PO 500 mg QAM MIGUEL Administration Cyanocobalamin 2,000 mcg 01/21/24 11:00 01/22/24 08:37 Cyanocobalamin 1,000 Mcg Tablet PO 2,000 mcg QAM MIGUEL Administration Cyanocobalamin 500 mcg 01/21/24 11:00 01/22/24 08:37 Cyanocobalamin 500 Mcg Tablet PO 500 mcg QAM MIGUEL Administration Docusate Sodium 100 mg 01/21/24 09:00 01/22/24 08:37 Docusate Sodium 100 Mg Capsule PO 100 mg Q12HR MIGUEL Administration Furosemide 40 mg 01/22/24 09:00 01/22/24 09:13 Furosemide Inj 40 Mg/4 Ml Vial IV PUSH 40 mg BID MIGUEL Administration Home Med 1 each 02/05/24 09:00 Home Medication- Dupixent (Dupilumab) 300mg/2ml SUB-Q 03/06/24 08:59 Q14D MIGUEL Levalbuterol HCl 1.25 mg 01/21/24 14:12 Levalbuterol Neb 1.25 Mg/3 Ml INHALATION Q6HRT PRN Wheezing Levothyroxine Sodium 75 mcg 01/21/24 10:45 01/22/24 05:21 Levothyroxine Sodium 75 Mcg Tablet PO 75 mcg DAILY@0630 MIGUEL Administration Metoprolol Tartrate 5 mg 01/21/24 12:54 01/22/24 05:20 Metoprolol Tartrate Inj 5 Mg/5 Ml Vial IV PUSH 5 mg Q2H PRN Administration Tachycardia Metoprolol Tartrate 50 mg 01/22/24 14:00 Metoprolol Tartrate 50 Mg Tab PO Q8HR MIGUEL Fluticasone/Salmeterol 2 puff 01/21/24 11:00 01/22/24 07:35 Fluticasone/Salmeterol 45-21 Mcg Inhaler 1 Puff INHALATION 2 puff Q12HRT MIGUEL Administration Vitamin D 5,000 units 01/21/24 09:00 01/22/24 08:38 Cholecalciferol 5,000 Units Tablet BY MOUTH 5,000 units DAILY MIGUEL Administration Radiology Results: ITS Impressions Chest X-Ray 01/20/24 15:13 IMPRESSION: 1. Cardiomegaly. Labs Labs: Laboratory Results - last 24 hr 01/21/24 01/22/24 19:44 03:42 WBC 6.8 RBC 3.90 L Hgb 11.7 L Hct 36.4 L MCV 93.3 MCH 30.0 MCHC 32.1 RDW 14.6 H Plt Count 185 MPV 12.2 H Immature Gran % (Auto) 0.4 Neut % (Auto) 85.1 H Lymph % (Auto) 5.9 L Chambers % (Auto) 8.5 Eos % (Auto) 0.0 Baso % (Auto) 0.1 L Lymph # (Auto) 0.40 L Chambers # (Auto) 0.6 Eos # (Auto) 0.0 Baso # (Auto) 0.0 Abs Immat Gran (auto) 0.03 Absolute Neuts (auto) 5.8 Absolute Nucleated RBC 0.000 Nucleated RBC % 0.0 APTT 67.8 H Sodium 135 L Potassium 4.2 Chloride 103 Carbon Dioxide 26 Anion Gap 6 BUN 36 H D Creatinine 0.80 Estim Creat Clear Calc 48 Estimated GFR > 60 Glucose 141 H Calcium 8.6 Total Bilirubin 0.5 AST 45 H ALT 52 H Alkaline Phosphatase 107 Total Protein 6.0 L Albumin 3.8 Quality VTE Prophylaxis VTE prophylaxis: pharmacologic ordered Hospitalist MIPS Advance Care Plan I have confirmed that the patient's Advanced Care Plan is present, code status is documented, or surrogate decision maker is listed in patient medical record.: Yes Medication Reconciliation I have utilized all available resources to obtain, update and review the patients current medications (includes all prescriptions, OTC, herbals, cannabis, and nutritional supplements).: Yes
[2024-01-22] MEDS: METOPROLOL TARTRATE 50 MG TAB PO ×2 (15:36→21:23)
[2024-01-22] MEDS: DUPIXENT 300 MG/2 ML 1 EACH SUB-Q (15:37)
[2024-01-22] MEDS: predniSONE 20 MG TABLET 40 MG PO (16:34)
[2024-01-23] VITALS (22 sets, daily range): BP systolic 99–131; BP diastolic 51–94; PULSE 64–139; RESP 18–20; TEMP 36.2–37.2; O2SAT 93–97
--- NOTE | 2024-01-23 | ECHO_ITS ---
Patient Info Name: Kanchan Abbott Age: 88 years : 1935 Gender: Female Ht: 67 in Wt: 217 lbs BSA: 2.19 m2 Exam Date: 01/23/2024 1:31 PM Exam Location: Echo Lab Patient Status: Inpatient Admit Date: 01/22/2024 Staff Ordering Physician: Oxana Fragoso Lifestyle Consultant: RADHA Attending Provider: David Suarez MD Referring Physician: Fouzia CULLEN; Exam Type: CA echo transesophageal Summary 1. Left ventricle is normal size and systolic function. 2. Right ventricle is normal size and systolic function. 3. The left atrium is dilated. 4. The right atrium is dilated. 5. The left atrial appendage velocity is 53 cm/s. There is no thrombus. 6. The atrial septum is visually intact with no color Doppler evidence of shunt. Left Ventricle Left ventricle is normal size and systolic function. Right Ventricle Right ventricle is normal size and systolic function. Left Atria The left atrium is dilated. Right Atria The right atrium is dilated. Atrial Septum The atrial septum is visually intact with no color Doppler evidence of shunt. Atrial Appendage The left atrial appendage velocity is 53 cm/s. There is no thrombus. Aortic Valve The tricuspid valve is trileaflet and opens well. There is trace aortic regurgitation. Pulmonic Valve The pulmonic valve is grossly normal there is trace pulmonic valve regurgitation. Mitral Valve The mitral valve is normal. There is mild mitral regurgitation. Tricuspid Valve The tricuspid valve is grossly normal. There is trace tricuspid regurgitation. Pericardium/Pleural Pericardium is normal in appearance with no evidence for significant pericardial effusion. Aorta There is mild atherosclerotic plaque in the visualized portion of the aorta. Report Signatures
[2024-01-23 05:15] LABS: Hematocrit 37.4 % (37.0-47.0); Hemoglobin 11.7 g/dL (12.0-15.0); Immature Granulocyte Absolute 0.03 K/mm3 (0.00-0.031); Immature Granulocyte Percent A 0.4 % (0-0.5); Lymphocytes Absolute Auto 0.46 K/mm3 (0.9-3.2); Lymphocytes Percent Auto 6.6 % (18.3-44.2); Mean Corpuscular HGB Conc 31.3 g/dl (32-36); Mean Corpuscular Volume 95.9 fl (80-100); Mean Platelet Volume 12.2 fl (7.4-10.4); Monocytes Absolute Auto 0.5 K/mm3 (0.1-0.6); Monocytes Percent Auto 6.6 % (2.6-8.5); Neutrophils Percent Auto 86.4 % (45.5-73.1); Platelet Count Result 174 k/mm3 (150-375); Red Cell Distribution Width 14.7 % (11.5-14.5)
[2024-01-23] MEDS: METOPROLOL TARTRATE 50 MG TAB PO (05:15)
[2024-01-23] MEDS: LEVOTHYROXINE SODIUM 75 MCG TABLET PO (05:15)
[2024-01-23 05:24] LABS: Alanine Aminotransferase 67 U/L (6-35); Albumin Level 3.6 g/dL (3.5-5.1); Alkaline Phosphatase 99 U/L (38-126); Anion Gap 3 mmol/L (4-12); Aspartate Amino Transferase 47 U/L (14-36); Bilirubin,Total 0.4 mg/dL (0.2-1.3); Blood Urea Nitrogen 44 mg/dL (7-17); Calcium 8.4 mg/dL (8.4-10.2); Carbon Dioxide 30 mmol/L (22-30); Chloride 103 mmol/L (98-107); Estimated CRCL calculation 53 ml/min; Estimated Glomerular Filt Rate > 60; Glucose 119 mg/dL (65-110); Potassium 4.2 mmol/L (3.4-5.0); Sodium 136 mmol/L (137-145)
[2024-01-23] MEDS: FLUTICASONE/SALMETEROL 45-21 MCG INHALER 1 PUFF 2 PUFF INHALATION ×2 (08:00→20:10)
--- NOTE | 2024-01-23 09:01 | P.PNIM_ITS ---
Progress Note: A&P Assessment and Plan (1) Acute on chronic hypoxic respiratory failure: Code(s): J96.21 - Acute and chronic respiratory failure with hypoxia Status: Acute Assessment and Plan: - Possibly secondary to #2 below vs CHF Exacerbation vs COPD exacerbation. - Placed on 1L/NC Home O2 but admits not to wearing it as scheduled. - Pt thought wearing home O2 in the house for some time would provide enough O2 to perform errands without it. - We'll give a dose of PO steroids - Currently on 2L/NC for sats > 90 %. - Continue nebs bronchodilators. (2) Atrial fibrillation with rapid ventricular response: Code(s): I48.91 - Unspecified atrial fibrillation Status: Acute Assessment and Plan: - Rate still uncontrolled this AM; 120's-130's. - Metoprolol dose increased. - Cardiology to consider calcium channel lizette when rate controlled. ECHO: LV Systolic function 60-65% - Right atrial chamber dimension is severely enlarged. - There is mild mitral valve regurgitation. - .There is mild to moderate tricuspid valve regurgitation. - Continue Eliquis. - Continue tele monitoring. - Cardiology following. EVY today (3) Acute heart failure with preserved ejection fraction (HFpEF): Code(s): I50.31 - Acute diastolic (congestive) heart failure Status: Acute Assessment and Plan: - BNP 5070. - ECHO showing LV systolic function 60-65%. - Right atrial chamber dimension is severely enlarged. - There is mild mitral valve regurgitation. - There is mild to moderate tricuspid valve regurgitation. - Started on Lasix IV BID. decreased to daily - Monitor I & O's with daily weights. (4) COPD exacerbation: Code(s): J44.1 - Chronic obstructive pulmonary disease with (acute) exacerbation Status: Acute Assessment and Plan: - Possibly acute on chronic. - We'll give a dose of PO steroids. - Further mgt as above. - Currently on @L/NC for sats > 90 % - Monitor closely for decompensation. Plan Acute and principal conditions 1. Acute on chronic hypoxic respiratory failure 2. COPD exacerbation 3. Acute on Chronic HFpEF 4. A-fib with RVR, new onset ECHO, Telemetry Cardizem, Heparin gtt Zosyn pre-emptively, Solumedrol, Chronic and stable conditions 1. Obesity, BMI 40, encouraged with lifestyle modification. 2. Hypothyroidism. on Levothyroxine Code status. Full Nutrition. Regular diet VTE prophylaxis. SCDs; Heparin gtt Time Spent With Patient Time with patient: Greater than 35 minutes Subjective Date/time seen: 01/23/24 09:01 Interval history: 88 yo F with a mHx significant for obesity, COPD, Hypothyroidism, Chronic hypoxia, BCC, GERD her for CHF Exacerbation vs COPD exacerbation and new a fib. Patient seated bedside and noted with conversational dyspnea. States she's still SOB with minimal exertion, affecting her home activity. Patient complains of severe shortness of breath with any movement this could be because of her AFib with RVR. Plan for EVY today Review of Systems Review of Systems: All systems reviewed & are unremarkable except as noted in HPI and below Constitutional: Constitutional: Reports fatigue, Reports headache(s) and Reports lethargy Eyes: Eyes: Reports no additional eye complaints ENT: Reports system reviewed and no additional complaints, except as documented, Reports vertigo and Reports headache(s) Cardiovascular: Cardiovascular: Reports no additional cardiovascular complaints, Reports dyspnea and Reports dyspnea on exertion Respiratory: Respiratory: Reports dyspnea, Reports dyspnea on exertion and Reports wheezing Gastrointestinal: Gastrointestinal: Reports no additional gastrointestinal complaints Genitourinary: Genitourinary: Reports no additional female genitourinary complaints Musculoskeletal: Musculoskeletal: Reports abnormal gait, Reports arthralgias and Reports joint swelling Integumentary/Breasts: Skin/Breast: Reports system reviewed and no additional complaints, except as docu Neurologic: Reports system reviewed and no additional complaints, except as documented, Reports Abnormal speech present, Reports abnormal gait, Denies behavioral changes, Denies confusion, Reports vertigo and Reports headache(s) Psychiatric: Psychiatric: Reports anxiety, Denies behavioral changes, Denies confusion and Denies depression Endocrine: Endocrine: Reports fatigue Allergic/Immunologic: Allergic/Immunologic: Reports wheezing Exam Const: General: in distress; No confusion Orientation/consciousness: No confusion HENMT: Face/Nose/Sinus: Normal nares present Mouth: Yes moist mucous membranes Eyes: General: appearance normal, both eyes and all related structures Pupils: Equal, round and reactive pupils present EOM: EOMs intact bilaterally Neck: Neck: supple Thyroid: thyroid normal Resp: Auscultation: wheezes lower bilaterally and upper bilaterally Cardio: Rate: tachycardic Rhythm: abnormal rhythm Skin: General skin exam: normal color Neuro: General: gait normal and No confusion Cranial nerves: Yes Equal, round and reactive pupils present Speech: Abnormal speech present Motor exam (neuro): 5/5 motor strength present throughout and Normal motor muscle tone present throughout Extrem: Other: General: Conversational dyspnea, SOB with minimal exertion. HEENT: Atraumatic, PERRL, moist mucosa, EOM, anicteric. NECK: Supple. Lungs: Faint expiratory wheezes and diminished bilaterally. Heart: Irregularly irregular, no murmurs. Abdomen: Soft, non-tender, non-distended, obese, +ve bowel sounds X4 quadrants. Extremities: Acyanotic, trace edema bilatearally. Skin: Warm and dry with no lesions. Neuro: Well oriented with some confusion episodes. CN II-XII grossly intact. Psych: Calm and co-operative. Psych: Mental Status: mental status grossly normal Affect: normal affect Objective Data Vital Signs Vital Signs: Vital Signs - 24 hr 01/22/24 10:00 01/22/24 12:06 01/22/24 12:00 Temperature 97.7 F Pulse Rate 117 H 127 H Respiratory Rate 18 Blood Pressure 122/76 Pulse Oximetry 96 96 Oxygen Delivery Nasal Cannula Oxygen Flow Rate 2 Fraction of Inspired Oxygen 01/22/24 12:00 01/22/24 14:00 01/22/24 15:18 Temperature 97.8 F Pulse Rate 148 H 127 H 109 H Respiratory Rate 20 Blood Pressure 105/83 Pulse Oximetry 98 Oxygen Delivery Oxygen Flow Rate Fraction of Inspired Oxygen 01/22/24 15:36 01/22/24 16:00 01/22/24 18:00 Temperature Pulse Rate 124 H 119 H 122 H Respiratory Rate Blood Pressure Pulse Oximetry Oxygen Delivery Oxygen Flow Rate Fraction of Inspired Oxygen 01/22/24 16:00 01/22/24 19:58 01/22/24 20:13 Temperature 97.8 F Pulse Rate 153 H 152 H Respiratory Rate 20 Blood Pressure 102/76 Pulse Oximetry 98 96 Oxygen Delivery Nasal Cannula Oxygen Flow Rate 2 Fraction of Inspired Oxygen 01/22/24 21:23 01/22/24 21:39 01/22/24 20:00 Temperature Pulse Rate 119 H 96 147 H Respiratory Rate Blood Pressure Pulse Oximetry 96 Oxygen Delivery Nasal Cannula Oxygen Flow Rate 2 Fraction of Inspired Oxygen 28 01/22/24 22:00 01/22/24 20:00 01/22/24 23:40 Temperature 97.9 F Pulse Rate 102 H 106 H Respiratory Rate 20 Blood Pressure 130/89 Pulse Oximetry 96 97 Oxygen Delivery Nasal Cannula Oxygen Flow Rate 2 Fraction of Inspired Oxygen 01/22/24 23:58 01/23/24 00:00 01/23/24 02:00 Temperature Pulse Rate 93 104 H Respiratory Rate Blood Pressure Pulse Oximetry 97 Oxygen Delivery Nasal Cannula Oxygen Flow Rate 2 Fraction of Inspired Oxygen 01/23/24 04:00 01/23/24 04:00 01/23/24 04:26 Temperature 98.7 F Pulse Rate 109 H 112 H Respiratory Rate 20 Blood Pressure 131/94 H Pulse Oximetry 97 96 Oxygen Delivery Nasal Cannula Oxygen Flow Rate 2 Fraction of Inspired Oxygen 01/23/24 05:15 01/23/24 06:00 01/23/24 07:43 Temperature 97.6 F Pulse Rate 121 H 101 H 103 H Respiratory Rate 18 Blood Pressure 130/89 Pulse Oximetry 97 Oxygen Delivery Oxygen Flow Rate Fraction of Inspired Oxygen Intake/Output Intake/Output: Intake & Output 01/20/24 01/21/24 01/22/24 01/23/24 23:59 23:59 23:59 23:59 Intake Total 11.7 639.2 1130 550 Output Total 150 1051 300 Balance 11.7 489.2 79 250 Meds/Results Medications: Active Medications Generic Name Dose Route Start Last Admin Trade Name Freq PRN Reason Stop Dose Admin Acetaminophen 650 mg 01/20/24 22:25 Acetaminophen 325 Mg Tablet PO Q4H PRN Mild Pain (1-3) or Fever Albuterol 2 puff 01/21/24 10:43 Albuterol Sulfate (*Sp) Aerosol 1 Puff INHALATION Q4H PRN shortness of breath or wheezing Apixaban 5 mg 01/21/24 21:00 01/22/24 20:14 Apixaban 5 Mg Tablet PO 5 mg Q12HR MIGUEL Administration Ascorbic Acid 1,000 mg 01/21/24 09:00 01/22/24 08:37 Ascorbic Acid 500 Mg Tablet PO 1,000 mg QAM MIGUEL Administration Atorvastatin Calcium 40 mg 01/22/24 09:00 01/22/24 08:37 Atorvastatin 40 Mg Tablet PO 40 mg DAILY MIGUEL Administration Bisacodyl 5 mg 01/20/24 22:25 Bisacodyl 5 Mg Tablet Ec PO DAILY PRN Constipation Calcium Carbonate 500 mg 01/22/24 09:00 01/22/24 08:37 Calcium Carbonate (Oscal) 500 Mg Tablet PO 500 mg QAM MIGUEL Administration Cyanocobalamin 2,000 mcg 01/21/24 11:00 01/22/24 08:37 Cyanocobalamin 1,000 Mcg Tablet PO 2,000 mcg QAM MIGUEL Administration Cyanocobalamin 500 mcg 01/21/24 11:00 01/22/24 08:37 Cyanocobalamin 500 Mcg Tablet PO 500 mcg QAM MIGUEL Administration Docusate Sodium 100 mg 01/21/24 09:00 01/22/24 20:14 Docusate Sodium 100 Mg Capsule PO Not Given Q12HR MIGUEL Furosemide 40 mg 01/22/24 09:00 01/22/24 16:35 Furosemide Inj 40 Mg/4 Ml Vial IV PUSH 40 mg BID MIGUEL Administration Home Med 1 each 02/05/24 09:00 Home Medication- Dupixent (Dupilumab) 300mg/2ml SUB-Q 03/06/24 08:59 Q14D MIGUEL Levalbuterol HCl 1.25 mg 01/21/24 14:12 Levalbuterol Neb 1.25 Mg/3 Ml INHALATION Q6HRT PRN Wheezing Levothyroxine Sodium 75 mcg 01/21/24 10:45 01/23/24 05:15 Levothyroxine Sodium 75 Mcg Tablet PO 75 mcg DAILY@0630 [facility] Administration Metoprolol Tartrate 5 mg 01/21/24 12:54 01/22/24 20:13 Metoprolol Tartrate Inj 5 Mg/5 Ml Vial IV PUSH 5 mg Q2H PRN Administration Tachycardia Metoprolol Tartrate 50 mg 01/22/24 14:00 01/23/24 05:15 Metoprolol Tartrate 50 Mg Tab PO 50 mg Q8HR MIGUEL Administration Fluticasone/Salmeterol 2 puff 01/21/24 11:00 01/23/24 08:00 Fluticasone/Salmeterol 45-21 Mcg Inhaler 1 Puff INHALATION 2 puff Q12HRT MIGUEL Administration Vitamin D 5,000 units 01/21/24 09:00 01/22/24 08:38 Cholecalciferol 5,000 Units Tablet BY MOUTH 5,000 units DAILY MIGUEL Administration Radiology Results: ITS Impressions Chest X-Ray 01/20/24 15:13 IMPRESSION: 1. Cardiomegaly. Labs Labs: Laboratory Results - last 24 hr 01/23/24 04:41 WBC 7.0 RBC 3.90 L Hgb 11.7 L Hct 37.4 MCV 95.9 MCH 30.0 MCHC 31.3 L RDW 14.7 H Plt Count 174 MPV 12.2 H Immature Gran % (Auto) 0.4 Neut % (Auto) 86.4 H Lymph % (Auto) 6.6 L Johnston % (Auto) 6.6 Eos % (Auto) 0.0 Baso % (Auto) 0.0 L Lymph # (Auto) 0.46 L Johnston # (Auto) 0.5 Eos # (Auto) 0.0 Baso # (Auto) 0.0 Abs Immat Gran (auto) 0.03 Absolute Neuts (auto) 6.0 Absolute Nucleated RBC 0.000 Nucleated RBC % 0.0 Sodium 136 L Potassium 4.2 Chloride 103 Carbon Dioxide 30 Anion Gap 3 L BUN 44 H Creatinine 0.80 Estim Creat Clear Calc 53 Estimated GFR > 60 Glucose 119 H Calcium 8.4 Total Bilirubin 0.4 AST 47 H ALT 67 H Alkaline Phosphatase 99 Total Protein 6.0 L Albumin 3.6 Quality VTE Prophylaxis VTE prophylaxis: pharmacologic ordered Hospitalist MIPS Advance Care Plan I have confirmed that the patient's Advanced Care Plan is present, code status is documented, or surrogate decision maker is listed in patient medical record.: Yes Medication Reconciliation I have utilized all available resources to obtain, update and review the patients current medications (includes all prescriptions, OTC, herbals, cannabis, and nutritional supplements).: Yes
[2024-01-23] MEDS: APIXABAN 5 MG TABLET PO ×2 (09:38→20:28)
--- NOTE | 2024-01-23 10:17 | PM.PNCARD ---
Progress Note: A&P Assessment and Plan (1) Atrial fibrillation with rapid ventricular response: Code(s): I48.91 - Unspecified atrial fibrillation Status: Acute Assessment and Plan: This is a new diagnosis. Remains in atrial fibrillation with RVR despite increasing dose of metoprolol. Will further increase metoprolol to 50 mg p.o. Q 8 hours PRN lopressor for sustained HR >130 Continue Eliquis Echo showed normal LV function Since she continues to have RVR despite increasing metoprolol, will proceed with EVY/CV today. (2) Hypertension: Qualifiers: Hypertension type: primary hypertension Qualified Code(s): I10 - Essential (primary) hypertension Code(s): I10 - Essential (primary) hypertension Status: Acute Assessment and Plan: At goal (3) Hyperlipidemia: Qualifiers: Hyperlipidemia type: elevated lipoprotein(a) Qualified Code(s): E78.41 - Elevated Lipoprotein(a) Code(s): E78.5 - Hyperlipidemia, unspecified Status: Acute Assessment and Plan: Continue atorvastatin 40mg daily. (4) COPD exacerbation: Code(s): J44.1 - Chronic obstructive pulmonary disease with (acute) exacerbation Status: Acute Assessment and Plan: Management per hospitalist. Subjective Date/time seen: 01/23/24 10:17 Interval history: 88-year-old with atrial fibrillation Follow-up note 01/22/2024: She feels relatively okay. Has no chest pain. Baseline shortness of breath and is on chronic oxygen. No palpitations Date of service 01/23/2024: Feeling well this morning. Breathing has improved. Remains in atrial fibrillation with elevated heart rates. Review of Systems Review of Systems: All systems reviewed & are unremarkable except as noted in HPI and below Constitutional: Constitutional: Denies body ache(s) Cardiovascular: Cardiovascular: Denies chest pain and Denies palpitations Respiratory: Respiratory: Denies hemoptysis Gastrointestinal: Gastrointestinal: Denies abdominal pain Genitourinary: Genitourinary: Denies hematuria Neurologic: Denies Abnormal speech present Endocrine: Endocrine: Denies palpitations Hematologic/Lymphatic: Hematologic/Lymphatic: Denies easy bleeding Exam Const: General: comfortable, no acute distress, alert and awake Orientation/consciousness: patient oriented x3 HENMT: Head: normal to inspection Eyes: General: appearance normal, both eyes and all related structures Sclera: sclerae normal Pupils: Equal, round and reactive pupils present Neck: Neck: normal visual inspection, supple and no JVD Carotids: normal carotid upstroke Resp: Auscultation: not clear to auscultation bilaterally, rales, wheezes and diminished lung sounds Cardio: Rate: tachycardic Rhythm: abnormal rhythm irregularly irregular Heart sounds: S1 normal heart sound present, S2 normal heart sound present and no murmurs GI: Auscultation: normal bowel sounds Skin: General skin exam: normal color Neuro: General: patient oriented x3 Cranial nerves: Yes Equal, round and reactive pupils present Speech: normal speech and No Abnormal speech present Sensory Exam: normal sensation Extrem: General: normal to inspection Psych: Appearance: grossly normal Mental Status: mental status grossly normal Objective Data Vital Signs Vital Signs: Vital Signs - 24 hr 01/22/24 12:06 01/22/24 12:00 01/22/24 12:00 Temperature 36.5 C Pulse Rate 127 H 148 H Respiratory Rate 18 Blood Pressure 122/76 Pulse Oximetry 96 96 Oxygen Delivery Nasal Cannula Oxygen Flow Rate 2 Fraction of Inspired Oxygen 01/22/24 14:00 01/22/24 15:18 01/22/24 15:36 Temperature 36.6 C Pulse Rate 127 H 109 H 124 H Respiratory Rate 20 Blood Pressure 105/83 Pulse Oximetry 98 Oxygen Delivery Oxygen Flow Rate Fraction of Inspired Oxygen 01/22/24 16:00 01/22/24 18:00 01/22/24 16:00 Temperature Pulse Rate 119 H 122 H Respiratory Rate Blood Pressure Pulse Oximetry 98 Oxygen Delivery Nasal Cannula Oxygen Flow Rate 2 Fraction of Inspired Oxygen 01/22/24 19:58 01/22/24 20:13 01/22/24 21:23 Temperature 36.6 C Pulse Rate 153 H 152 H 119 H Respiratory Rate 20 Blood Pressure 102/76 Pulse Oximetry 96 Oxygen Delivery Oxygen Flow Rate Fraction of Inspired Oxygen 01/22/24 21:39 01/22/24 20:00 01/22/24 22:00 Temperature Pulse Rate 96 147 H 102 H Respiratory Rate Blood Pressure Pulse Oximetry 96 Oxygen Delivery Nasal Cannula Oxygen Flow Rate 2 Fraction of Inspired Oxygen 28 01/22/24 20:00 01/22/24 23:40 01/22/24 23:58 Temperature 36.6 C Pulse Rate 106 H Respiratory Rate 20 Blood Pressure 130/89 Pulse Oximetry 96 97 97 Oxygen Delivery Nasal Cannula Nasal Cannula Oxygen Flow Rate 2 2 Fraction of Inspired Oxygen 01/23/24 00:00 01/23/24 02:00 01/23/24 04:00 Temperature Pulse Rate 93 104 H 109 H Respiratory Rate Blood Pressure Pulse Oximetry Oxygen Delivery Oxygen Flow Rate Fraction of Inspired Oxygen 01/23/24 04:00 01/23/24 04:26 01/23/24 05:15 Temperature 37.1 C Pulse Rate 112 H 121 H Respiratory Rate 20 Blood Pressure 131/94 H Pulse Oximetry 97 96 Oxygen Delivery Nasal Cannula Oxygen Flow Rate 2 Fraction of Inspired Oxygen 01/23/24 06:00 01/23/24 07:43 Temperature 36.4 C Pulse Rate 101 H 103 H Respiratory Rate 18 Blood Pressure 130/89 Pulse Oximetry 97 Oxygen Delivery Oxygen Flow Rate Fraction of Inspired Oxygen Intake/Output Intake/Output: Intake & Output 01/20/24 01/21/24 01/22/24 01/23/24 23:59 23:59 23:59 23:59 Intake Total 11.7 639.2 1130 550 Output Total 150 1051 300 Balance 11.7 489.2 79 250 Meds/Results Medications: Active Medications Generic Name Dose Route Start Last Admin Trade Name Freq PRN Reason Stop Dose Admin Acetaminophen 650 mg 01/20/24 22:25 Acetaminophen 325 Mg Tablet PO Q4H PRN Mild Pain (1-3) or Fever Albuterol 2 puff 01/21/24 10:43 Albuterol Sulfate (*Sp) Aerosol 1 Puff INHALATION Q4H PRN shortness of breath or wheezing Apixaban 5 mg 01/21/24 21:00 01/23/24 09:38 Apixaban 5 Mg Tablet PO 5 mg Q12HR MIGUEL Administration Ascorbic Acid 1,000 mg 01/21/24 09:00 01/23/24 09:37 Ascorbic Acid 500 Mg Tablet PO 1,000 mg QAM MIGUEL Administration Atorvastatin Calcium 40 mg 01/22/24 09:00 01/23/24 09:38 Atorvastatin 40 Mg Tablet PO 40 mg DAILY MIGUEL Administration Bisacodyl 5 mg 01/20/24 22:25 Bisacodyl 5 Mg Tablet Ec PO DAILY PRN Constipation Calcium Carbonate 500 mg 01/22/24 09:00 01/23/24 09:38 Calcium Carbonate (Oscal) 500 Mg Tablet PO 500 mg QAM MIGUEL Administration Cyanocobalamin 2,000 mcg 01/21/24 11:00 01/23/24 09:37 Cyanocobalamin 1,000 Mcg Tablet PO 2,000 mcg QAM [facility] Administration Cyanocobalamin 500 mcg 01/21/24 11:00 01/23/24 09:38 Cyanocobalamin 500 Mcg Tablet PO 500 mcg QAM MIGUEL Administration Docusate Sodium 100 mg 01/21/24 09:00 01/23/24 09:37 Docusate Sodium 100 Mg Capsule PO 100 mg Q12HR MIGUEL Administration Furosemide 40 mg 01/22/24 09:00 01/23/24 09:37 Furosemide Inj 40 Mg/4 Ml Vial IV PUSH 40 mg BID MIGUEL Administration Home Med 1 each 02/05/24 09:00 Home Medication- Dupixent (Dupilumab) 300mg/2ml SUB-Q 03/06/24 08:59 Q14D MIGUEL Levalbuterol HCl 1.25 mg 01/21/24 14:12 Levalbuterol Neb 1.25 Mg/3 Ml INHALATION Q6HRT PRN Wheezing Levothyroxine Sodium 75 mcg 01/21/24 10:45 01/23/24 05:15 Levothyroxine Sodium 75 Mcg Tablet PO 75 mcg DAILY@0630 [facility] Administration Metoprolol Tartrate 5 mg 01/21/24 12:54 01/22/24 20:13 Metoprolol Tartrate Inj 5 Mg/5 Ml Vial IV PUSH 5 mg Q2H PRN Administration Tachycardia Metoprolol Tartrate 50 mg 01/22/24 14:00 01/23/24 05:15 Metoprolol Tartrate 50 Mg Tab PO 50 mg Q8HR MIGUEL Administration Fluticasone/Salmeterol 2 puff 01/21/24 11:00 01/23/24 08:00 Fluticasone/Salmeterol 45-21 Mcg Inhaler 1 Puff INHALATION 2 puff Q12HRT [facility] Administration Vitamin D 5,000 units 01/21/24 09:00 01/23/24 09:37 Cholecalciferol 5,000 Units Tablet BY MOUTH 5,000 units DAILY [facility] Administration Radiology Results: ITS Impressions Chest X-Ray 01/20/24 15:13 IMPRESSION: 1. Cardiomegaly. Labs Labs: Laboratory Results - last 24 hr 01/23/24 04:41 WBC 7.0 RBC 3.90 L Hgb 11.7 L Hct 37.4 MCV 95.9 MCH 30.0 MCHC 31.3 L RDW 14.7 H Plt Count 174 MPV 12.2 H Immature Gran % (Auto) 0.4 Neut % (Auto) 86.4 H Lymph % (Auto) 6.6 L [place] % (Auto) 6.6 Eos % (Auto) 0.0 Baso % (Auto) 0.0 L Lymph # (Auto) 0.46 L [place] # (Auto) 0.5 Eos # (Auto) 0.0 Baso # (Auto) 0.0 Abs Immat Gran (auto) 0.03 Absolute Neuts (auto) 6.0 Absolute Nucleated RBC 0.000 Nucleated RBC % 0.0 Sodium 136 L Potassium 4.2 Chloride 103 Carbon Dioxide 30 Anion Gap 3 L BUN 44 H Creatinine 0.80 Estim Creat Clear Calc 53 Estimated GFR > 60 Glucose 119 H Calcium 8.4 Total Bilirubin 0.4 AST 47 H ALT 67 H Alkaline Phosphatase 99 Total Protein 6.0 L Albumin 3.6 Quality VTE Prophylaxis VTE prophylaxis: pharmacologic ordered
[2024-01-23] MEDS: ATORVASTATIN 40 MG TABLET PO (12:07)
--- NOTE | 2024-01-23 12:43 | WPDHPUPDATE1 ---
History and Physical Update Update Date/Time: 01/23/24 12:43 History and Physical has been reviewed, including an updated exam of the patient. There are NO changes in the patient's condition. Risks, benefits, and alternatives have been discussed and questions answered. Patient agrees to proceed with procedure.
--- NOTE | 2024-01-23 13:50 | ECG_ITS ---
Test Date: 2024-01-23 13:52:22 Measurements Intervals [place] Rate: 71 P: 57 IN: 164 QRS: 7 QRSD: 114 T: 54 QT: 390 QTc: 425 Interpretive Statements SINUS RHYTHM WITH OCCASIONAL VENTRICULAR PREMATURE COMPLEXES WITH OCCASIONAL SUPRAVENTRICULAR PREMATURE COMPLEXES POSSIBLE LEFT ATRIAL ENLARGEMENT [-0.1mV P WAVE IN V1/V2] MODERATE INTRAVENTRICULAR CONDUCTION DELAY [110+ ms QRS DURATION] Compared to ECG 01/20/2024 20:42:03 Ventricular premature complex(es) now present Intraventricular conduction delay now present Atrial fibrillation no longer present T-wave abnormality no longer present Electronically Signed On 01-23-2024 14:00:17 COMMERCIAL MARKETING SPECIALIST by Carlos Farooq M.D.
--- NOTE | 2024-01-23 13:56 | P.PNAN_ITS ---
Anes - Initial Pre Proc Eval Procedure: Operation Date: 01/23/24 13:30 Proposed Procedures p Trans Esophageal Echo - Carlos Farooq MD s Electrical Cardioversion - Carlos Farooq MD Date/Time: 01/23/24 13:56 Surgeon: David Suarez MD Pre Op Diagnosis: Atrial fibrillation with RVR Patient Data Age: 88 Gender: F Height: 1.7 m Weight: 98.6 kg Last Vital Signs Temp 36.2 C L 01/23/24 11:38 Pulse 120 H 01/23/24 11:38 Resp 20 01/23/24 11:38 BP 121/67 01/23/24 11:38 Pulse Ox 96 01/23/24 12:00 O2 Del Method Nasal Cannula 01/23/24 12:00 O2 Flow Rate 2 01/23/24 12:00 FiO2 28 01/22/24 21:39 Allergies Allergy/AdvReac Type Severity Reaction Status Date / Time No Known Allergies Allergy Verified 01/20/24 15:07 Home Medications Medication Instructions Recorded Confirmed Type aspirin 81 mg tablet,delayed 81 mg PO DAILY 03/02/19 01/21/24 History release dupilumab 300 mg/2 mL subcutaneous 300 mg subcut ONCE 03/02/19 01/21/24 History syringe (Dupixent) ascorbic acid (vitamin C) 1,000 mg 1 g PO DAILY 02/28/22 01/21/24 History capsule cholecalciferol (vitamin D3) 125 125 mcg PO DAILY 02/28/22 01/21/24 History mcg (5,000 unit) capsule calcium carbonate (Calcium 600) 600 mg PO DAILY 05/07/22 01/21/24 History mecobalamin (vitamin B12) 2,500 2,500 mcg PO DAILY 05/07/22 01/21/24 History mcg chewable tablet zinc glycinate 30 mg capsule 30 mg PO DAILY 09/03/22 01/21/24 History albuterol sulfate 2.5 mg/3 mL 2.5 mg (3 mL) inhalation Q4-6H PRN 09/25/23 01/21/24 Rx (0.083 %) solution for nebulization shortness of breath or wheezing #75 mL nebulizers (Compact Compressor #1 ea 09/25/23 01/21/24 Rx Nebulizer) albuterol sulfate 90 mcg/actuation 2 puff inhalation Q4H PRN 01/20/24 01/21/24 Rx aerosol inhaler shortness of breath or wheezing #8.5 grams fluticasone 100 mcg-salmeterol 50 1 inh inhalation Q12H #60 ea 01/20/24 01/21/24 Rx mcg/dose blistr powdr for inhalation (Wixela Inhub) amlodipine 5 mg tablet 5 mg PO DAILY 01/21/24 01/21/24 History levothyroxine 75 mcg tablet 75 mcg PO DAILY 01/21/24 01/21/24 History Laboratory Tests 01/23/24 04:41 WBC 7.0 K/mm3 (4.5-10.0) RBC 3.90 L M/mm3 (4.2-5.4) Hgb 11.7 L g/dL (12.0-15.0) Hct 37.4 % (37.0-47.0) MCV 95.9 fl (80-100) MCH 30.0 pg (26-34) MCHC 31.3 L g/dl (32-36) RDW 14.7 H % (11.5-14.5) Plt Count 174 k/mm3 (150-375) MPV 12.2 H fl (7.4-10.4) Immature Gran % (Auto) 0.4 % (0-0.5) Neut % (Auto) 86.4 H % (45.5-73.1) Lymph % (Auto) 6.6 L % (18.3-44.2) [place] % (Auto) 6.6 % (2.6-8.5) Eos % (Auto) 0.0 % (0-4.4) Baso % (Auto) 0.0 L % (0.2-1.2) Lymph # (Auto) 0.46 L K/mm3 (0.9-3.2) [place] # (Auto) 0.5 K/mm3 (0.1-0.6) Eos # (Auto) 0.0 K/mm3 (0-0.3) Baso # (Auto) 0.0 K/mm3 (0.0-0.1) Abs Immat Gran (auto) 0.03 K/mm3 (0.00-0.031) Absolute Neuts (auto) 6.0 K/mm3 (1.3-6.7) Absolute Nucleated RBC 0.000 K/mm3 (0.0-0.012) Nucleated RBC % 0.0 % (0.0-0.2) Sodium 136 L mmol/L (137-145) Potassium 4.2 mmol/L (3.4-5.0) Chloride 103 mmol/L (98-107) Carbon Dioxide 30 mmol/L (22-30) Anion Gap 3 L mmol/L (4-12) BUN 44 H mg/dL (7-17) Creatinine 0.80 mg/dL (0.7-1.0) Estim Creat Clear Calc 53 ml/min Estimated GFR > 60 (59 - ) Glucose 119 H mg/dL (65-110) Calcium 8.4 mg/dL (8.4-10.2) Total Bilirubin 0.4 mg/dL (0.2-1.3) AST 47 H U/L (14-36) ALT 67 H U/L (6-35) Alkaline Phosphatase 99 U/L (38-126) Total Protein 6.0 L g/dL (6.3-8.2) Albumin 3.6 g/dL (3.5-5.1) Patient hx anesthesia problems: none Family hx anesthesia problems: none Results Review: All pre-operative results and documents have been reviewed as part of the pre- operative evaluation. 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 Smoking packs per day: 1 Smoking cigarettes per day: 20.0 Years smoked: 30 Smoking pack-years: 30.00 Smoking status: Former smoker Second hand tobacco smoke exposure: Yes Alcohol intake: never Substance use: never Substance use type: does not use Do You Feel Safe in your Home?: Yes Lack of Transportation: No Lack of Food: Never True Current Housing: I Have Housing Concerned About Future Housing: No Difficulty Paying Gas/Electric Bills: No Difficulty Paying for Meds: No Currently Unemployed: No Education: High School Diploma/GED Difficulty w/ Childcare or Family Care: No Living arrangements: alone Occupation/Education: retired Gender identity (if verbalized by the patient): Female Spiritual care concerns: No Anes - Eval Final PreProcedure Day of Procedure 01/23/24 13:56 Patient weight: obese Heart: regular rate and rhythm Lungs: decreased breath sounds Airway: Mallampati scale class II Neurological: alert and oriented Last oral intake: >/= 8 hours ASA classification: IV Emergent: no Anesthetic plan: proceed Anesthesia type and monitoring: general GIVS and standard monitoring Results Review: All pre-operative results and documents have been reviewed as part of the pre- operative evaluation. Informed Consent: The patient's anesthetic plan and its attendant risks and benefits were discussed with the patient/family/POA. Questions were solicited and answers provided to the satisfaction of the patient/family/POA.
--- NOTE | 2024-01-23 14:02 | WPDCARDPROC ---
Cardiac Cath Procedure Note Date of procedure:: 01/23/24 Performing physician:: Carlos Farooq MD
--- NOTE | 2024-01-23 14:03 | P.PCNTEECA_ITS ---
EVY with Cardioversion Date of procedure: 01/23/24 Procedure Type: Transesophageal echocardiogram with cardioversion Diagnosis: Atrial fibrillation with rapid ventricular rate Indications: Atrial fibrillation with rapid ventricular rate Description of Procedure: Transesophageal echocardiogram probe was advanced into the esophagus and images were obtained. No thrombus was noted in the left atrial appendage. After completion of transesophageal echocardiogram, the probe was removed. 200 joule was administer with termination of atrial fibrillation and return of s inus rhythm Sedation: Provided by Anesthesia Findings: Biatrial enlargement Normal biventricular systolic function Moderate mitral regurgitation No thrombus in left atrial appendage Conclusion: Successful cardioversion with return of sinus rhythm
--- NOTE | 2024-01-23 22:21 | ECG_ITS ---
Test Date: 2024-01-23 22:40:28 Measurements Intervals [place] Rate: 100 P: 0 AR: 0 QRS: 17 QRSD: 94 T: 36 QT: 368 QTc: 475 Interpretive Statements SINUS RHYTHM WITH SINUS ARRHYTHMIA NONSPECIFIC T-WAVE ABNORMALITY Compared to ECG 01/23/2024 13:52:22 NO SIGNIFICANT CHANGES Electronically Signed On 01-24-2024 12:33:11 CONTRACT ADMINISTRATOR by Caridad Self M.D.
[2024-01-24] VITALS (17 sets, daily range): BP systolic 123–155; BP diastolic 61–78; PULSE 69–96; RESP 16–85; TEMP 36.5–36.8; O2SAT 21–98
[2024-01-24 04:09] LABS: Basophils Percent Auto 0.2 % (0.2-1.2); Eosinophils Absolute Auto 0.1 K/mm3 (0-0.3); Hematocrit 34.4 % (37.0-47.0); Immature Granulocyte Absolute 0.02 K/mm3 (0.00-0.031); Immature Granulocyte Percent A 0.3 % (0-0.5); Lymphocytes Absolute Auto 0.89 K/mm3 (0.9-3.2); Lymphocytes Percent Auto 14.7 % (18.3-44.2); Mean Corpuscular Hemoglobin 30.3 pg (26-34); Mean Corpuscular Volume 94.8 fl (80-100); Mean Platelet Volume 11.3 fl (7.4-10.4); Monocytes Absolute Auto 0.8 K/mm3 (0.1-0.6); Monocytes Percent Auto 13.5 % (2.6-8.5); Neutrophils Absolute Auto 4.3 K/mm3 (1.3-6.7); Neutrophils Percent Auto 70.3 % (45.5-73.1); Platelet Count Result 161 k/mm3 (150-375); Red Blood Count 3.63 M/mm3 (4.2-5.4); Red Cell Distribution Width 14.7 % (11.5-14.5); White Blood Count 6.1 K/mm3 (4.5-10.0)
[2024-01-24 04:23] LABS: Alanine Aminotransferase 55 U/L (6-35); Albumin Level 3.2 g/dL (3.5-5.1); Alkaline Phosphatase 84 U/L (38-126); Anion Gap 2 mmol/L (4-12); Aspartate Amino Transferase 31 U/L (14-36); Bilirubin,Total 0.5 mg/dL (0.2-1.3); Blood Urea Nitrogen 35 mg/dL (7-17); Carbon Dioxide 31 mmol/L (22-30); Chloride 104 mmol/L (98-107); Estimated CRCL calculation 60 ml/min; Estimated Glomerular Filt Rate > 60; Glucose 86 mg/dL (65-110); Potassium 3.7 mmol/L (3.4-5.0); Sodium 137 mmol/L (137-145)
[2024-01-24] MEDS: LEVOTHYROXINE SODIUM 75 MCG TABLET PO (05:46)
[2024-01-24] MEDS: FLUTICASONE/SALMETEROL 45-21 MCG INHALER 1 PUFF 2 PUFF INHALATION ×2 (07:05→19:31)
[2024-01-24] MEDS: APIXABAN 5 MG TABLET PO ×2 (09:42→20:56)
[2024-01-24] MEDS: ASCORBIC ACID 500 MG TABLET 1000 MG PO (09:42)
[2024-01-24] MEDS: CALCIUM CARBONATE (OSCAL) 500 MG TABLET PO (09:43)
[2024-01-24] MEDS: CHOLECALCIFEROL 5,000 UNITS TABLET 5000 UNITS BY MOUTH (09:43)
[2024-01-24] MEDS: ATORVASTATIN 40 MG TABLET PO (09:43)
[2024-01-24] MEDS: METOPROLOL SUCCINATE EXT REL 25 MG TABCR PO (09:43)
[2024-01-24] MEDS: DOCUSATE SODIUM 100 MG CAPSULE PO (09:44)
[2024-01-24] MEDS: FUROSEMIDE INJ 40 MG/4 ML VIAL IV PUSH (09:44)
[2024-01-24] MEDS: CYANOCOBALAMIN 500 MCG TABLET PO (09:44)
[2024-01-24] MEDS: CYANOCOBALAMIN 1,000 MCG TABLET 2000 MCG PO (09:44)
--- NOTE | 2024-01-24 12:30 | P.PNIM_ITS ---
Progress Note: A&P Assessment and Plan (1) Acute on chronic hypoxic respiratory failure: Code(s): J96.21 - Acute and chronic respiratory failure with hypoxia Status: Acute Assessment and Plan: - Possibly secondary to #2 below vs CHF Exacerbation vs COPD exacerbation. - Placed on 1L/NC Home O2 but admits not to wearing it as scheduled. - Pt thought wearing home O2 in the house for some time would provide enough O2 to perform errands without it. - We'll give a dose of PO steroids - Currently on 2L/NC for sats > 90 %. - Continue nebs bronchodilators. (2) Atrial fibrillation with rapid ventricular response: Code(s): I48.91 - Unspecified atrial fibrillation Status: Acute Assessment and Plan: - Rate still uncontrolled this AM; 120's-130's. - Metoprolol dose increased. - Cardiology to consider calcium channel lizette when rate controlled. ECHO: LV Systolic function 60-65% - Right atrial chamber dimension is severely enlarged. - There is mild mitral valve regurgitation. - .There is mild to moderate tricuspid valve regurgitation. - Continue Eliquis. - Continue tele monitoring. - Cardiology following. EVY clear, Cardioversion completed on 01/22 with conversion to sinus rhythm (3) Acute heart failure with preserved ejection fraction (HFpEF): Code(s): I50.31 - Acute diastolic (congestive) heart failure Status: Acute Assessment and Plan: - BNP 5070. - ECHO showing LV systolic function 60-65%. - Right atrial chamber dimension is severely enlarged. - There is mild mitral valve regurgitation. - There is mild to moderate tricuspid valve regurgitation. - Started on Lasix IV BID. decreased to daily - Monitor I & O's with daily weights. 01/23: Furosemide changed to 40 mg oral daily starting 01/24 (4) COPD exacerbation: Code(s): J44.1 - Chronic obstructive pulmonary disease with (acute) exacerbation Status: Acute Assessment and Plan: - Possibly acute on chronic. - We'll give a dose of PO steroids. - Further mgt as above. - Currently on @L/NC for sats > 90 % - Monitor closely for decompensation. 01/23: Will need 6 minute walk test for oxygen recommendations on discharge. She is on 2 LPM at rest in bed now. Plan PT/OT consult for discharge planning recommendations: SNF vs Home health anticipated Time Spent With Patient Time with patient: Greater than 35 minutes Subjective Date/time seen: 01/24/24 12:30 Interval history: Patient reports still fatigued and limited ambulation. PT/OT consulted for discharge planning recommendations. Conferred with Cardiology as my look at telemetry was concerning for return to afib. Cardiology reports sinus arrhythmia with PACs and PVCs as well as limited runs of atrial tach. They do want patient to continue Eliquis on discharge. They are increasing metoprolol dose. We will downgrade patient to med/surg with telemetry today, hopefully patient can be discharged tomorrow. Patient denies chest pain or shortness of breath. She previously had oxygen prescribed but was not wearing it appropriately. She should have 6 minute walk test on day of discharge to clarify settings expected. Review of Systems Review of Systems: All systems reviewed & are unremarkable except as noted in HPI and below Exam Narrative: GENERAL: chronically ill appearing, in no acute distress. HEAD: Normocephalic, atraumatic. ENT:? Mucous membranes moist. CHEST: Mildly diminished, no respiratory distress, supplemental oxygen in place HEART: Regular rate and irregular rhythm. ? 2+ radial pulses ABDOMEN: Soft, nontender, nondistended. EXTREMITIES: Normal range of motion. SKIN: Warm dry normal color NEURO: Alert and oriented x3. PSYCH: Normal mood and affect Objective Data Vital Signs Vital Signs: Vital Signs - 24 hr 01/23/24 14:00 01/23/24 14:15 01/23/24 14:15 Temperature Pulse Rate 65 64 80 Respiratory Rate 18 18 Blood Pressure 99/55 L 102/71 Pulse Oximetry 93 93 Oxygen Delivery Nasal Cannula Nasal Cannula Oxygen Flow Rate 2 2 Fraction of Inspired Oxygen 01/23/24 15:57 01/23/24 16:00 01/23/24 16:00 Temperature 37.2 C Pulse Rate 71 79 Respiratory Rate 18 Blood Pressure 107/51 L Pulse Oximetry 96 96 Oxygen Delivery Nasal Cannula Oxygen Flow Rate 2 Fraction of Inspired Oxygen 01/23/24 17:52 01/23/24 18:00 01/23/24 19:10 Temperature 36.4 C L Pulse Rate 78 72 73 Respiratory Rate 18 Blood Pressure 129/62 Pulse Oximetry 96 96 Oxygen Delivery Nasal Cannula Oxygen Flow Rate 2 Fraction of Inspired Oxygen 28 01/23/24 20:14 01/23/24 20:00 01/23/24 20:00 Temperature Pulse Rate 70 Respiratory Rate Blood Pressure Pulse Oximetry 96 96 Oxygen Delivery Nasal Cannula Nasal Cannula Oxygen Flow Rate 2 2 Fraction of Inspired Oxygen 01/23/24 22:00 01/23/24 23:51 01/24/24 04:00 Temperature 36.6 C 36.5 C Pulse Rate 73 72 85 Respiratory Rate 18 85 H Blood Pressure 108/53 L 137/61 Pulse Oximetry 97 21 L Oxygen Delivery Oxygen Flow Rate Fraction of Inspired Oxygen 01/24/24 00:00 01/24/24 04:00 01/24/24 00:00 Temperature Pulse Rate 78 Respiratory Rate Blood Pressure Pulse Oximetry 96 98 Oxygen Delivery Nasal Cannula Nasal Cannula Oxygen Flow Rate 2 2 Fraction of Inspired Oxygen 01/24/24 02:00 01/24/24 04:00 01/24/24 06:00 Temperature Pulse Rate 72 80 75 Respiratory Rate Blood Pressure Pulse Oximetry Oxygen Delivery Oxygen Flow Rate Fraction of Inspired Oxygen 01/24/24 07:49 01/24/24 07:05 01/24/24 07:05 Temperature 36.7 C Pulse Rate 69 74 74 Respiratory Rate 20 18 18 Blood Pressure 140/63 Pulse Oximetry 96 94 Oxygen Delivery Nasal Cannula Oxygen Flow Rate 2 Fraction of Inspired Oxygen 01/24/24 09:43 01/24/24 08:00 01/24/24 08:00 Temperature Pulse Rate 88 88 88 Respiratory Rate 20 Blood Pressure Pulse Oximetry 96 Oxygen Delivery Nasal Cannula Oxygen Flow Rate 2 Fraction of Inspired Oxygen 01/24/24 10:00 01/24/24 10:28 01/24/24 11:35 Temperature Pulse Rate 88 88 Respiratory Rate 20 Blood Pressure Pulse Oximetry 96 Oxygen Delivery Nasal Cannula Nasal Cannula Oxygen Flow Rate 2 2 Fraction of Inspired Oxygen 01/24/24 11:35 01/24/24 11:46 Temperature 36.6 C Pulse Rate 87 74 Respiratory Rate 20 Blood Pressure 123/78 Pulse Oximetry 96 Oxygen Delivery Oxygen Flow Rate Fraction of Inspired Oxygen Intake/Output Intake/Output: Intake & Output 01/21/24 01/22/24 01/23/24 01/24/24 23:59 23:59 23:59 23:59 Intake Total 639.2 1130 1280 400 Output Total 150 1051 300 900 Balance 489.2 79 980 -500 Meds/Results Medications: Active Medications Generic Name Dose Route Start Last Admin Trade Name Freq PRN Reason Stop Dose Admin Acetaminophen 650 mg 01/20/24 22:25 Acetaminophen 325 Mg Tablet PO Q4H PRN Mild Pain (1-3) or Fever Albuterol 2 puff 01/21/24 10:43 Albuterol Sulfate (*Sp) Aerosol 1 Puff INHALATION Q4H PRN shortness of breath or wheezing Apixaban 5 mg 01/21/24 21:00 01/24/24 09:42 Apixaban 5 Mg Tablet PO 5 mg Q12HR MIGUEL Administration Ascorbic Acid 1,000 mg 01/21/24 09:00 01/24/24 09:42 Ascorbic Acid 500 Mg Tablet PO 1,000 mg QAM MIGUEL Administration Atorvastatin Calcium 40 mg 01/22/24 09:00 01/24/24 09:43 Atorvastatin 40 Mg Tablet PO 40 mg DAILY MIGUEL Administration Bisacodyl 5 mg 01/20/24 22:25 Bisacodyl 5 Mg Tablet Ec PO DAILY PRN Constipation Calcium Carbonate 500 mg 01/22/24 09:00 01/24/24 09:43 Calcium Carbonate (Oscal) 500 Mg Tablet PO 500 mg QAM MIGUEL Administration Cyanocobalamin 2,000 mcg 01/21/24 11:00 01/24/24 09:44 Cyanocobalamin 1,000 Mcg Tablet PO 2,000 mcg QAM MIGUEL Administration Cyanocobalamin 500 mcg 01/21/24 11:00 01/24/24 09:44 Cyanocobalamin 500 Mcg Tablet PO 500 mcg QAM MIGUEL Administration Docusate Sodium 100 mg 01/21/24 09:00 01/24/24 09:44 Docusate Sodium 100 Mg Capsule PO 100 mg Q12HR MIGUEL Administration Fentanyl Citrate 25 mcg 01/23/24 13:59 Fentanyl Citrate Inj (*Crx) 100 Mcg/2 Ml Vial IV PUSH Q2M PRN Pain Furosemide 40 mg 01/24/24 09:00 01/24/24 09:44 Furosemide Inj 40 Mg/4 Ml Vial IV PUSH 40 mg DAILY MIGUEL Administration Home Med 1 each 02/05/24 09:00 Home Medication- Dupixent (Dupilumab) 300mg/2ml SUB-Q 03/06/24 08:59 Q14D MIGUEL Levalbuterol HCl 1.25 mg 01/21/24 14:12 Levalbuterol Neb 1.25 Mg/3 Ml INHALATION Q6HRT PRN Wheezing Levothyroxine Sodium 75 mcg 01/21/24 10:45 12/06/24 05:46 Levothyroxine Sodium 75 Mcg Tablet PO 75 mcg DAILY@0630 MIGUEL Administration Metoprolol Succinate 25 mg 01/24/24 09:00 01/24/24 09:43 Metoprolol Succinate Ext Rel 25 Mg Tabcr PO 25 mg QAM MIGUEL Administration Metoprolol Tartrate 5 mg 01/21/24 12:54 01/22/24 20:13 Metoprolol Tartrate Inj 5 Mg/5 Ml Vial IV PUSH 5 mg Q2H PRN Administration Tachycardia Ondansetron HCl 4 mg 01/23/24 13:59 Ondansetron Inj 4 Mg/2 Ml Vial IV PUSH ONCE PRN Nausea Fluticasone/Salmeterol 2 puff 01/21/24 11:00 01/24/24 07:05 Fluticasone/Salmeterol 45-21 Mcg Inhaler 1 Puff INHALATION 2 puff Q12HRT MIGUEL Administration Vitamin D 5,000 units 01/21/24 09:00 01/24/24 09:43 Cholecalciferol 5,000 Units Tablet BY MOUTH 5,000 units DAILY MIGUEL Administration Radiology Results: ITS Impressions Chest X-Ray 01/20/24 15:13 IMPRESSION: 1. Cardiomegaly. Labs Labs: Laboratory Results - last 24 hr 01/24/24 03:47 WBC 6.1 RBC 3.63 L Hgb 11.0 L Hct 34.4 L MCV 94.8 MCH 30.3 MCHC 32.0 RDW 14.7 H Plt Count 161 MPV 11.3 H Immature Gran % (Auto) 0.3 Neut % (Auto) 70.3 Lymph % (Auto) 14.7 L [place] % (Auto) 13.5 H Eos % (Auto) 1.0 Baso % (Auto) 0.2 Lymph # (Auto) 0.89 L [place] # (Auto) 0.8 H Eos # (Auto) 0.1 Baso # (Auto) 0.0 Abs Immat Gran (auto) 0.02 Absolute Neuts (auto) 4.3 Absolute Nucleated RBC 0.000 Nucleated RBC % 0.0 Sodium 137 Potassium 3.7 Chloride 104 Carbon Dioxide 31 H Anion Gap 2 L BUN 35 H Creatinine 0.70 Estim Creat Clear Calc 60 Estimated GFR > 60 Glucose 86 Calcium 8.0 L Total Bilirubin 0.5 AST 31 ALT 55 H Alkaline Phosphatase 84 Total Protein 6.0 L Albumin 3.2 L Pulse Oximetry SpO2 results: 95-97% on 2 liters/minute nasal cannula Attestation: I personally reviewed and interpreted this pulse oximetry as follows: Interpretation: Patient continues to require supplemental oxygenation Quality VTE Prophylaxis VTE prophylaxis: pharmacologic ordered
[2024-01-24 12:40] LABS: Magnesium 1.9 mg/dL (1.6-2.3)
--- NOTE | 2024-01-24 12:40 | PM.PNCARD ---
Progress Note: A&P Assessment and Plan (1) Atrial fibrillation with rapid ventricular response: Code(s): I48.91 - Unspecified atrial fibrillation Status: Acute Assessment and Plan: This is a new diagnosis. Status post DCCV yesterday with episcopalian of sinus rhythm. Frequent PAC's and brief runs of atrial tachycardia seen on telemetry. Will increase metoprolol to 50mg daily Continue Eliquis Echo showed normal LV function OK for discharge from a cardiac standpoint Cardiology will sign off please call with questions. (2) Hypertension: Qualifiers: Hypertension type: primary hypertension Qualified Code(s): I10 - Essential (primary) hypertension Code(s): I10 - Essential (primary) hypertension Status: Acute Assessment and Plan: At goal (3) Hyperlipidemia: Qualifiers: Hyperlipidemia type: elevated lipoprotein(a) Qualified Code(s): E78.41 - Elevated Lipoprotein(a) Code(s): E78.5 - Hyperlipidemia, unspecified Status: Acute Assessment and Plan: Continue atorvastatin 40mg daily. (4) COPD exacerbation: Code(s): J44.1 - Chronic obstructive pulmonary disease with (acute) exacerbation Status: Acute Assessment and Plan: Management per hospitalist. Subjective Date/time seen: 01/24/24 12:40 Interval history: 88-year-old with atrial fibrillation Follow-up note 01/22/2024: She feels relatively okay. Has no chest pain. Baseline shortness of breath and is on chronic oxygen. No palpitations Date of service 01/23/2024: Feeling well this morning. Breathing has improved. Remains in atrial fibrillation with elevated heart rates. Date of service 01/24/2024: Continues to feel well. She remains in sinus rhythm after cardioversion; has frequent PAC's. No shortness of breath today. Review of Systems Review of Systems: All systems reviewed & are unremarkable except as noted in HPI and below Constitutional: Constitutional: Denies body ache(s) Cardiovascular: Cardiovascular: Denies chest pain and Denies palpitations Respiratory: Respiratory: Denies hemoptysis Gastrointestinal: Gastrointestinal: Denies abdominal pain Genitourinary: Genitourinary: Denies hematuria Neurologic: Denies Abnormal speech present Endocrine: Endocrine: Denies palpitations Hematologic/Lymphatic: Hematologic/Lymphatic: Denies easy bleeding Exam Const: General: comfortable, no acute distress, alert and awake Orientation/consciousness: patient oriented x3 HENMT: Head: normal to inspection Eyes: General: appearance normal, both eyes and all related structures Sclera: sclerae normal Pupils: Equal, round and reactive pupils present Neck: Neck: normal visual inspection, supple and no JVD Carotids: normal carotid upstroke Resp: Auscultation: clear to auscultation bilaterally and diminished lung sounds Cardio: Rate: regular rate Rhythm: regular rhythm Heart sounds: S1 normal heart sound present, S2 normal heart sound present and no murmurs GI: Auscultation: normal bowel sounds Skin: General skin exam: normal color Neuro: General: patient oriented x3 Cranial nerves: Yes Equal, round and reactive pupils present Speech: normal speech and No Abnormal speech present Sensory Exam: normal sensation Extrem: General: normal to inspection Psych: Appearance: grossly normal Mental Status: mental status grossly normal Objective Data Vital Signs Vital Signs: Vital Signs - 24 hr 01/23/24 14:00 01/23/24 14:15 01/23/24 14:15 Temperature Pulse Rate 65 64 80 Respiratory Rate 18 18 Blood Pressure 99/55 L 102/71 Pulse Oximetry 93 93 Oxygen Delivery Nasal Cannula Nasal Cannula Oxygen Flow Rate 2 2 Fraction of Inspired Oxygen 01/23/24 15:57 01/23/24 16:00 01/23/24 16:00 Temperature 37.2 C Pulse Rate 71 79 Respiratory Rate 18 Blood Pressure 107/51 L Pulse Oximetry 96 96 Oxygen Delivery Nasal Cannula Oxygen Flow Rate 2 Fraction of Inspired Oxygen 01/23/24 17:52 01/23/24 18:00 01/23/24 19:10 Temperature 36.4 C L Pulse Rate 78 72 73 Respiratory Rate 18 Blood Pressure 129/62 Pulse Oximetry 96 96 Oxygen Delivery Nasal Cannula Oxygen Flow Rate 2 Fraction of Inspired Oxygen 28 01/23/24 20:14 01/23/24 20:00 01/23/24 20:00 Temperature Pulse Rate 70 Respiratory Rate Blood Pressure Pulse Oximetry 96 96 Oxygen Delivery Nasal Cannula Nasal Cannula Oxygen Flow Rate 2 2 Fraction of Inspired Oxygen 01/23/24 22:00 01/23/24 23:51 01/24/24 04:00 Temperature 36.6 C 36.5 C Pulse Rate 73 72 85 Respiratory Rate 18 85 H Blood Pressure 108/53 L 137/61 Pulse Oximetry 97 21 L Oxygen Delivery Oxygen Flow Rate Fraction of Inspired Oxygen 01/24/24 00:00 01/24/24 04:00 01/24/24 00:00 Temperature Pulse Rate 78 Respiratory Rate Blood Pressure Pulse Oximetry 96 98 Oxygen Delivery Nasal Cannula Nasal Cannula Oxygen Flow Rate 2 2 Fraction of Inspired Oxygen 01/24/24 02:00 01/24/24 04:00 01/24/24 06:00 Temperature Pulse Rate 72 80 75 Respiratory Rate Blood Pressure Pulse Oximetry Oxygen Delivery Oxygen Flow Rate Fraction of Inspired Oxygen 01/24/24 07:49 01/24/24 07:05 01/24/24 07:05 Temperature 36.7 C Pulse Rate 69 74 74 Respiratory Rate 20 18 18 Blood Pressure 140/63 Pulse Oximetry 96 94 Oxygen Delivery Nasal Cannula Oxygen Flow Rate 2 Fraction of Inspired Oxygen 01/24/24 09:43 01/24/24 08:00 01/24/24 08:00 Temperature Pulse Rate 88 88 88 Respiratory Rate 20 Blood Pressure Pulse Oximetry 96 Oxygen Delivery Nasal Cannula Oxygen Flow Rate 2 Fraction of Inspired Oxygen 28 01/24/24 10:00 01/24/24 10:28 01/24/24 11:35 Temperature Pulse Rate 88 88 Respiratory Rate 20 Blood Pressure Pulse Oximetry 96 Oxygen Delivery Nasal Cannula Nasal Cannula Oxygen Flow Rate 2 2 Fraction of Inspired Oxygen 28 01/24/24 11:35 01/24/24 11:46 Temperature 36.6 C Pulse Rate 87 74 Respiratory Rate 20 Blood Pressure 123/78 Pulse Oximetry 96 Oxygen Delivery Oxygen Flow Rate Fraction of Inspired Oxygen Intake/Output Intake/Output: Intake & Output 01/21/24 01/22/24 01/23/24 01/24/24 23:59 23:59 23:59 23:59 Intake Total 639.2 1130 1280 400 Output Total 150 1051 300 900 Balance 489.2 79 980 -500 Meds/Results Medications: Active Medications Generic Name Dose Route Start Last Admin Trade Name Freq PRN Reason Stop Dose Admin Acetaminophen 650 mg 01/20/24 22:25 Acetaminophen 325 Mg Tablet PO Q4H PRN Mild Pain (1-3) or Fever Albuterol 2 puff 01/21/24 10:43 Albuterol Sulfate (*Sp) Aerosol 1 Puff INHALATION Q4H PRN shortness of breath or wheezing Apixaban 5 mg 01/21/24 21:00 01/24/24 09:42 Apixaban 5 Mg Tablet PO 5 mg Q12HR MIGUEL Administration Ascorbic Acid 1,000 mg 12/03/24 09:00 01/24/24 09:42 Ascorbic Acid 500 Mg Tablet PO 1,000 mg QAM MIGUEL Administration Atorvastatin Calcium 40 mg 01/22/24 09:00 01/24/24 09:43 Atorvastatin 40 Mg Tablet PO 40 mg DAILY MIGUEL Administration Bisacodyl 5 mg 01/20/24 22:25 Bisacodyl 5 Mg Tablet Ec PO DAILY PRN Constipation Calcium Carbonate 500 mg 01/22/24 09:00 01/24/24 09:43 Calcium Carbonate (Oscal) 500 Mg Tablet PO 500 mg QAM [facility] Administration Cyanocobalamin 2,000 mcg 01/21/24 11:00 01/24/24 09:44 Cyanocobalamin 1,000 Mcg Tablet PO 2,000 mcg QAM [facility] Administration Cyanocobalamin 500 mcg 01/21/24 11:00 01/24/24 09:44 Cyanocobalamin 500 Mcg Tablet PO 500 mcg QAM [facility] Administration Docusate Sodium 100 mg 01/21/24 09:00 01/24/24 09:44 Docusate Sodium 100 Mg Capsule PO 100 mg Q12HR MIGUEL Administration Fentanyl Citrate 25 mcg 01/23/24 13:59 Fentanyl Citrate Inj (*Crx) 100 Mcg/2 Ml Vial IV PUSH Q2M PRN Pain Furosemide 40 mg 01/24/24 09:00 01/24/24 09:44 Furosemide Inj 40 Mg/4 Ml Vial IV PUSH 40 mg DAILY MIGUEL Administration Home Med 1 each 02/05/24 09:00 Home Medication- Dupixent (Dupilumab) 300mg/2ml SUB-Q 03/06/24 08:59 Q14D [facility] Levalbuterol HCl 1.25 mg 01/21/24 14:12 Levalbuterol Neb 1.25 Mg/3 Ml INHALATION Q6HRT PRN Wheezing Levothyroxine Sodium 75 mcg 01/21/24 10:45 01/24/24 05:46 Levothyroxine Sodium 75 Mcg Tablet PO 75 mcg DAILY@0630 [facility] Administration Metoprolol Succinate 50 mg 01/25/24 09:00 Metoprolol Succinate Ext Rel 50 Mg Tabcr PO QAM MIGUEL Metoprolol Tartrate 5 mg 01/21/24 12:54 01/22/24 20:13 Metoprolol Tartrate Inj 5 Mg/5 Ml Vial IV PUSH 5 mg Q2H PRN Administration Tachycardia Ondansetron HCl 4 mg 01/23/24 13:59 Ondansetron Inj 4 Mg/2 Ml Vial IV PUSH ONCE PRN Nausea Fluticasone/Salmeterol 2 puff 01/21/24 11:00 01/24/24 07:05 Fluticasone/Salmeterol 45-21 Mcg Inhaler 1 Puff INHALATION 2 puff Q12HRT MIGUEL Administration Vitamin D 5,000 units 01/21/24 09:00 01/24/24 09:43 Cholecalciferol 5,000 Units Tablet BY MOUTH 5,000 units DAILY MIGUEL Administration Radiology Results: ITS Impressions Chest X-Ray 01/20/24 15:13 IMPRESSION: 1. Cardiomegaly. Labs Labs: Laboratory Results - last 24 hr 01/24/24 03:47 WBC 6.1 RBC 3.63 L Hgb 11.0 L Hct 34.4 L MCV 94.8 MCH 30.3 MCHC 32.0 RDW 14.7 H Plt Count 161 MPV 11.3 H Immature Gran % (Auto) 0.3 Neut % (Auto) 70.3 Lymph % (Auto) 14.7 L [place] % (Auto) 13.5 H Eos % (Auto) 1.0 Baso % (Auto) 0.2 Lymph # (Auto) 0.89 L [place] # (Auto) 0.8 H Eos # (Auto) 0.1 Baso # (Auto) 0.0 Abs Immat Gran (auto) 0.02 Absolute Neuts (auto) 4.3 Absolute Nucleated RBC 0.000 Nucleated RBC % 0.0 Sodium 137 Potassium 3.7 Chloride 104 Carbon Dioxide 31 H Anion Gap 2 L BUN 35 H Creatinine 0.70 Estim Creat Clear Calc 60 Estimated GFR > 60 Glucose 86 Calcium 8.0 L Total Bilirubin 0.5 AST 31 ALT 55 H Alkaline Phosphatase 84 Total Protein 6.0 L Albumin 3.2 L Quality VTE Prophylaxis VTE prophylaxis: pharmacologic ordered
[2024-01-24] MEDS: POTASSIUM CHLORIDE 20 MEQ ER TABLET 40 MEQ PO (15:15)
[2024-01-25] VITALS: BP 140/78; PULSE 81; PULSE 85; RESP 16; TEMP 36.8; O2SAT 94
[2024-01-25 02:00] VITALS: PULSE 82
[2024-01-25 04:00] VITALS: BP 140/76; PULSE 80; PULSE 86; RESP 16; TEMP 36.7; O2SAT 94
[2024-01-25 05:14] LABS: Basophils Percent Auto 0.2 % (0.2-1.2); Eosinophils Absolute Auto 0.3 K/mm3 (0-0.3); Eosinophils Percent Auto 4.2 % (0-4.4); Hematocrit 38.3 % (37.0-47.0); Hemoglobin 12.2 g/dL (12.0-15.0); Immature Granulocyte Absolute 0.03 K/mm3 (0.00-0.031); Immature Granulocyte Percent A 0.5 % (0-0.5); Lymphocytes Absolute Auto 0.52 K/mm3 (0.9-3.2); Lymphocytes Percent Auto 8.5 % (18.3-44.2); Mean Corpuscular HGB Conc 31.9 g/dl (32-36); Mean Corpuscular Volume 94.1 fl (80-100); Mean Platelet Volume 11.7 fl (7.4-10.4); Monocytes Absolute Auto 0.8 K/mm3 (0.1-0.6); Monocytes Percent Auto 12.4 % (2.6-8.5); Neutrophils Absolute Auto 4.6 K/mm3 (1.3-6.7); Neutrophils Percent Auto 74.2 % (45.5-73.1); Platelet Count Result 170 k/mm3 (150-375); Red Blood Count 4.07 M/mm3 (4.2-5.4); Red Cell Distribution Width 14.4 % (11.5-14.5); White Blood Count 6.2 K/mm3 (4.5-10.0)
[2024-01-25 05:16] LABS: Alanine Aminotransferase 46 U/L (6-35); Albumin Level 3.3 g/dL (3.5-5.1); Alkaline Phosphatase 98 U/L (38-126); Anion Gap 2 mmol/L (4-12); Aspartate Amino Transferase 24 U/L (14-36); Bilirubin,Total 0.7 mg/dL (0.2-1.3); Blood Urea Nitrogen 18 mg/dL (7-17); Calcium 8.1 mg/dL (8.4-10.2); Carbon Dioxide 38 mmol/L (22-30); Chloride 99 mmol/L (98-107); Estimated CRCL calculation 81 ml/min; Estimated Glomerular Filt Rate > 60; Glucose 91 mg/dL (65-110); Magnesium 1.8 mg/dL (1.6-2.3); Potassium 3.2 mmol/L (3.4-5.0); Sodium 139 mmol/L (137-145)
[2024-01-25] MEDS: LEVOTHYROXINE SODIUM 75 MCG TABLET PO (05:59)
[2024-01-25 08:00] VITALS: BP 121/54; PULSE 90; RESP 16; TEMP 36.6; O2SAT 94; O2SAT 95
[2024-01-25 08:06] VITALS: PULSE 90
[2024-01-25] MEDS: METOPROLOL SUCCINATE EXT REL 50 MG TABCR PO (08:06)
[2024-01-25] MEDS: CYANOCOBALAMIN 1,000 MCG TABLET 2000 MCG PO (08:07)
[2024-01-25] MEDS: ATORVASTATIN 40 MG TABLET PO (08:08)
[2024-01-25] MEDS: CHOLECALCIFEROL 5,000 UNITS TABLET 5000 UNITS BY MOUTH (08:08)
[2024-01-25] MEDS: POTASSIUM CHLORIDE 20 MEQ ER TABLET 40 MEQ PO (08:08)
[2024-01-25] MEDS: APIXABAN 5 MG TABLET PO (08:08)
[2024-01-25] MEDS: CYANOCOBALAMIN 500 MCG TABLET PO (08:09)
[2024-01-25] MEDS: FUROSEMIDE 40 MG TABLET PO (08:09)
[2024-01-25] MEDS: ASCORBIC ACID 500 MG TABLET 1000 MG PO (08:09)
[2024-01-25] MEDS: CALCIUM CARBONATE (OSCAL) 500 MG TABLET PO (08:09)
[2024-01-25] MEDS: FLUTICASONE/SALMETEROL 45-21 MCG INHALER 1 PUFF 2 PUFF INHALATION (09:55)
--- NOTE | 2024-01-25 11:27 | P.DS_ITS ---
DS: Admitting Diagnosis Discharge Date 01/25/24 Admitting Diagnosis Atrial fibrillation with RVR Acute on chronic hypoxic respiratory failure COPD exacerbation DS: Summary Hospital Course Reason for hospitalization: Atrial fibrillation with RVR Acute on chronic hypoxic respiratory failure COPD exacerbation Hospital Course: This is an 88-year-old female who presented to the hospital with palpitations and shortness of breath on 01/20/2024. She was found to be in AFib with hypoxia in her primary care doctor's office And prompted to come to the ER for further evaluation. Workup in the hospital included a chest x-ray which showed cardiomegaly. EKG shown AFib with RVR with a rate of 108, QTC 484. Echocardiogram was done on 01/21/2024 which shown normal LV systolic function with an estimated EF of 60-65%, mild pulmonary hypertension with estimated pulmonary arterial systolic pressure of 42 mmHg, mild to moderate tricuspid valve regurgitation, severe biatrial enlargement. Cardiology was consulted. Patient underwent a successful EVY with cardioversion on 01/23/2024. Her metoprolol was increased to 50 mg daily and she was told to continue Eliquis. She is stable for discharge at this time. She will need to follow up with Cardiology in 2 Final diagnosis: atrial fibrillation with RVR, acute on chronic hypoxic respiratory failure, COPD exacerbation, acute exacerbation of CHF Status at Discharge Cognitive/behavioral status at discharge: Alert and oriented x3 Functional status at discharge: independent ambulation Overall status at discharge: patient is progressing back to baseline Time Spent with Patient Time attestation: Total time spent providing and/or coordinating discharge services: Time spent: Greater than 30 minutes Exam Narrative: General: In no acute distress, well nourished Head: atraumatic, no encephalopathy Eyes: PERRLA, sclera clear ENT: moist mucous membranes, nasal passages clear Neck: supple, no JVD, no adenopathy, trachea midline Cardiac: Normal S1 and S2. RRR, currently in NSR on monitor with PAC's No murmur, gallops or friction rubs, peripheral pulses intact. Respiratory: Lungs clear to auscultation, no adventitious lung sounds, currently on room air Gastrointestinal: soft, non-distended, non-tender, normoactive bowel sounds. : voiding without difficulty. Extremities: moves all extremities well,1-2+ pitting edema to BLE Skin: clean, dry, intact. No wounds or lesions. Neuro: Alert and oriented x4, cranial nerves intact, no neuro deficits. Psych: normal mood, normal affect, interactive DS: Data Data Completed and Pending Completed studies during hospitalization: Chest x-ray Transesphageal echo Pending studies at discharge: None Labs on day of discharge: Labs from last 24 hours 01/25/24 01/24/24 04:40 12:24 WBC 6.2 RBC 4.07 L Hgb 12.2 Hct 38.3 MCV 94.1 MCH 30.0 MCHC 31.9 L RDW 14.4 Plt Count 170 MPV 11.7 H Immature Gran % (Auto) 0.5 Neut % (Auto) 74.2 H Lymph % (Auto) 8.5 L Livingston % (Auto) 12.4 H Eos % (Auto) 4.2 Baso % (Auto) 0.2 Lymph # (Auto) 0.52 L Livingston # (Auto) 0.8 H Eos # (Auto) 0.3 Baso # (Auto) 0.0 Abs Immat Gran (auto) 0.03 Absolute Neuts (auto) 4.6 Absolute Nucleated RBC 0.000 Nucleated RBC % 0.0 Sodium 139 Potassium 3.2 L Chloride 99 Carbon Dioxide 38 H Anion Gap 2 L BUN 18 H D Creatinine 0.50 L Estim Creat Clear Calc 81 Estimated GFR > 60 Glucose 91 Calcium 8.1 L Magnesium 1.8 1.9 Total Bilirubin 0.7 AST 24 ALT 46 H Alkaline Phosphatase 98 Total Protein 6.0 L Albumin 3.3 L Procedures/Treatments: Successful EVY and cardioversion Discharge Plan Discharge Attending physician on discharge: Luis Recinos Consulting providers: Caridad Self; Oleg Bowles; Oxana Fragoso; Parish Farooq Daniel E.; You Hawthorne; Santos Veliz V.; Kevan Haque; Desean Jones; Elizabeth Oviedo Discharging Clinician: Laurie Gomez Anticipated Discharge Date/Time: 01/25/24 07:33 Patient Disposition: Home, Self-Care Activity: as tolerated Diet: as tolerated and heart healthy Discharge Instructions: * Take medication as directed * Follow up with Cardiology in 2 weeks * S/P cardioversion for Atrial fibrillation * You were started on Eliquis and Metoprolol for Atrial fibrillation * You were also started on Lasix for your swelling and Atorvastatin for your cholesterol, continue taking these medications * Use home O2 as indicated. If your O2 saturation is greater than 90 AT REST you do not have to wear O2. Wear 1L when increasing activity. Patient Instructions: Metoprolol (By mouth), Furosemide (By mouth), Aspirin (By mouth), Atorvastatin (By mouth), Apixaban (By mouth), A-fib (Atrial Fibrillation) (DC), Pain Management (DC) Patient Language: Lithuanian Stand Alone Forms: General Discharge Information Follow-up/Referrals: Oxana Fragoso, ASSET MANAGEMENT LEAD-C [Advanced Practice Nurse] - Discharge Medications: New Eliquis 5 mg Tablet 5 mg PO Q12HR Qty: 60 0RF furosemide 40 mg Tablet 40 mg PO DAILY Qty: 30 0RF atorvastatin 40 mg Tablet 40 mg PO DAILY Qty: 30 0RF metoprolol succinate 50 mg Tablet Extended Release 24 Hr 50 mg PO QAM Qty: 30 0RF Continued ascorbic acid (vitamin C) 1,000 mg capsule 1 g PO DAILY cholecalciferol (vitamin D3) 125 mcg (5,000 unit) capsule 125 mcg PO DAILY mecobalamin (vitamin B12) 2,500 mcg tablet,chewable 2,500 mcg PO DAILY calcium carbonate [Calcium 600] 600 mg calcium (1,500 mg) tablet 600 mg PO DAILY fluticasone propion-salmeterol [Wixela Inhub] 100-50 mcg/dose blister with device 1 inh inhalation Q12H Qty: 60 2RF zinc glycinate 30 mg capsule 30 mg PO DAILY amlodipine 5 mg tablet 5 mg PO DAILY levothyroxine 75 mcg tablet 75 mcg PO DAILY aspirin 81 mg tablet,delayed release (DR/EC) 81 mg PO DAILY Dupixent Syringe 300 mg/2 mL syringe 300 mg SUB-Q ONCE No Action levalbuterol tartrate [Xopenex HFA] 45 mcg/actuation HFA aerosol inhaler 1 puff inhalation Q6H PRN (Reason: shortness of breath or wheezing) Qty: 15 2RF buspirone 5 mg tablet 5 mg PO BID Qty: 60 2RF potassium chloride 20 mEq tablet extended release 40 meq PO DAILY Qty: 60 0RF Date of admission: 01/22/24 09:35 Primary Care Provider: Paulina Houser Admitting Provider: David Suarez Attending physician on admission: Laurie Gomez Condition: Improved
[2024-01-25 11:34] VITALS: PULSE 90
--- NOTE | 2024-01-25 11:38 | PCRCNOTE ---
R.N. STATES PROVIDER NO LONGER NEEDS A HOME OXYGEN EVALUATION DONE ON THIS PT.; PT. IS BEING DISCHARGED.
== END 2024-01-25 12:50 | disposition home or self-care (01) | DRG 308 ==
LOC: ANHED 19:00 → ANHIMU 22:40 → ANHICU 01-21 12:23 → ANHIMU 01-22 05:02
PROVIDERS: Emergency Medicine; Internal Medicine; Nurse Practitioner; Admitting Provider Internal Medicine; Emergency Provider Physician Assistant; PCP Nurse Practitioner Family; Visit Provider Nurse Practitioner Acute Care
PROC: B245ZZ4 Ultrasonography of Left Heart, Transesophageal (ICD-10-PCS; CPT 93312; principal; 2024-01-23 13:30)
PROC: 5A2204Z Restoration of Cardiac Rhythm, Single (ICD-10-PCS; 2024-01-23 13:30)
DX: I48.91 Unspecified atrial fibrillation (principal); I50.31 Acute diastolic (congestive) heart failure; J96.21 Acute and chronic respiratory failure with hypoxia; J44.1 Chronic obstructive pulmonary disease with (acute) exacerbation; I11.0 Hypertensive heart disease with heart failure; I83.90 Asymptomatic varicose veins of unspecified lower extremity; K21.9 Gastro-esophageal reflux disease without esophagitis; E78.5 Hyperlipidemia, unspecified; E03.9 Hypothyroidism, unspecified; M17.0 Bilateral primary osteoarthritis of knee; M85.80 Other specified disorders of bone density and structure, unspecified site; Z99.81 Dependence on supplemental oxygen; Z87.891 Personal history of nicotine dependence; Z79.82 Long term (current) use of aspirin
CPT/HCPCS: 36415; 71045; 80053; 83690; 83735; 83880; 84443; 84484; 85025; 85380; 85610; 85730; 92960; 93005; 93306; 93312; 93320; 93325; 94640; 96365; 96366; 96367; 96375; 96376; 97161; 97166; 99285; A9270; C8929; G0378; J1644; J1940; J2003; J2543; J2704; J2919; J7040; J7512; Q9957

== ENCOUNTER 2024-03-26 19:44 | Inpatient (IN) | payer MEDICARE, SELFPAY ==
[2024-03-26] VITALS (10 sets, daily range): BP systolic 103–148; BP diastolic 61–97; PULSE 100–135; RESP 16–28; TEMP 36.4–36.6; O2SAT 93–100
--- NOTE | ~2024-03-26 | XR_ITS ---
EXAMINATION: XR chest 1V portable DATE: 03/29/2024 07:22 INDICATION: Right-sided chest tube TECHNIQUE: frontal view of the chest was obtained. COMPARISON: Chest radiograph dated 03/28/[address] dated 04/08/2024 FINDINGS: Again seen is a previously directed right chest tube. No pneumothorax. Small right pleural effusion w ith blunting right costophrenic angle. Mild opacities in the bilateral lower lung zones with appearan ce on CT favoring atelectasis over pneumonia. Cardiomegaly. Enlargement of the central pulmonary ihsan isamar. Peripherally calcified bilateral breast implants. IMPRESSION: 1. Small right pleural effusion but no pneumothorax with unchanged right apically directed chest tube . 2. Bibasilar opacities with appearance on CT favoring atelectasis over pneumonia. 3. Cardiomegaly and enlargement of the central pulmonary arteries consistent with pulmonary arterial hypertension. Reviewed, dictated and finalized at location A. ESSION ATTENDANT IMPRESSION: 1. Small right pleural effusion but no pneumothorax with unchanged right apical ly directed chest tube. 2. Bibasilar opacities with appearance on CT favoring atelectasis over pneumoni a. 3. Cardiomegaly and enlargement of the central pulmonary arteries consistent wi th pulmonary arterial hypertension.
--- NOTE | ~2024-03-26 | CT_ITS ---
History: Fall PROCEDURE: CT cervical spine without intravenous contrast. COMPARISON: None TECHNIQUE: Multiple contiguous axial images of the cervical spine were performed without the administration of i ntravenous contrast. DLP: 681 mGy-cm FINDINGS: Straightening and slight reversal of the normal curvature of the cervical spine is identified, likely muscular in origin. No acute fractures are present. Significant degenerative disease is identified, with osteophyte formation, disc space narrowing, endp late changes and marked facet arthropathy. Right-sided chest tube extends into the right apex. The left apex is unremarkable. The airway is patent. Impression: Straightening and slight reversal of the normal curvature of the cervical spine, likely muscular in o rigin. Significant degenerative disease, without acute fracture. Reviewed, dictated and finalized at location A. UCT DESIGN MANAGER Impression: Straightening and slight reversal of the normal curvature of the cervical spine , likely muscular in origin. Significant degenerative disease, without acute fracture.
--- NOTE | ~2024-03-26 | XR_ITS ---
EXAMINATION: XR chest 1V portable DATE: 04/12/2024 07:49 INDICATION: Hypoxic respiratory failure. TECHNIQUE: A single frontal view of the chest was obtained. COMPARISON: Chest single view 04/11/2024, chest CT 03/29/2024 FINDINGS: There are small pleural effusions. There are airspace opacities at the lung bases. No pneum othorax. Cardiomegaly is noted. Thus implants are noted. IMPRESSION: 1. Stable small pleural effusions. 2. Stable airspace opacities at the lung bases, consistent with atelectasis or less likely pneumonia. 3. Cardiomegaly. Reviewed, dictated and finalized at location A. SETTER
--- NOTE | ~2024-03-26 | XR_ITS ---
EXAMINATION: XR chest 1V portable DATE: 03/28/2024 22:03 INDICATION: Chest pain chest tube TECHNIQUE: frontal view of the chest was obtained. COMPARISON: Chest radiograph dated 03/28/2024 FINDINGS: Unchanged position of an apically directed right chest tube. No pneumothorax. Blunting at the right c ostophrenic angle consistent with small pleural effusion. Mild opacities in the bilateral lower lung zones which could represent atelectasis or pneumonia. No left-sided pleural effusion. Cardiomegaly. P eripherally calcified bilateral breast implants. IMPRESSION: 1. Small right pleural effusion but no pneumothorax with unchanged apically directed right chest tube . 2. Mild opacities in bilateral lower lung zones which could represent atelectasis or pneumonia. 3. Cardiomegaly. Reviewed, dictated and finalized at location A. OF WOMEN IMPRESSION: 1. Small right pleural effusion but no pneumothorax with unchanged apically dir ected right chest tube. 2. Mild opacities in bilateral lower lung zones which could represent atelectas is or pneumonia. 3. Cardiomegaly.
--- NOTE | ~2024-03-26 | CT_ITS ---
EXAMINATION: CTA chest PE protocol DATE: 03/29/2024 04:56 INDICATION: Hypoxia TECHNIQUE: Computed tomography (CT) pulmonary angiogram of the chest was performed with 100 mL Omnipa que-350 intravenous contrast. Additional 3D reconstructions utilizing coronal maximum intensity proje ction (MIP) were performed. Automated exposure control and iterative reconstruction technique were em ployed. The dose-length product was 664.46 mGy-cm. COMPARISON: None FINDINGS: No pulmonary embolism. Apically directed chest tube extending along the lateral aspect of the right m id to upper lung. There is a small right pleural effusion. No pneumothorax. Mild emphysema. Dependent atelectasis in the bilateral lower and right upper lobes. No pulmonary edema or pneumonia the aerate d portions of the lungs. Cardiomegaly with biatrial enlargement. No pericardial effusion. Thoracic ao rta is normal in caliber with no dissection. There is enlargement of the central pulmonary arteries c onsistent with pulmonary arterial hypertension. No pathologically enlarged thoracic lymphadenopathy. Capsular calcifications and likely intracapsular ruptures at the bilateral breasts. There is some edmundo st wall gas associated with the right chest tube. Visualized upper abdomen is unremarkable. Mild thor acic levocurvature with moderate spondylosis. Severe lower cervical spondylosis. Nondisplaced fractur es of the right posterior fifth and sixth ribs. IMPRESSION: 1. Right chest tube in expected position with small right pleural effusion but no pneumothorax. 2. Mild emphysema with mild dependent atelectasis in both lungs. 3. Cardiomegaly with biatrial enlargement. 4. Enlargement of the central pulmonary arteries consistent with pulmonary arterial hypertension. 5. Recent-appearing nondisplaced fractures of the posterior right fifth and sixth ribs. Reviewed, dictated and finalized at location A. RANCE OFFICE MANAGER IMPRESSION: 1. Right chest tube in expected position with small right pleural effusion but no pneumothorax. 2. Mild emphysema with mild dependent atelectasis in both lungs. 3. Cardiomegaly with biatrial enlargement. 4. Enlargement of the central pulmonary arteries consistent with pulmonary ihsan rial hypertension. 5. Recent-appearing nondisplaced fractures of the posterior right fifth and six th ribs.
--- NOTE | ~2024-03-26 | XR_ITS ---
CHEST RADIOGRAPH, PA AND LATERAL CLINICAL HISTORY: Increasing SOB, chest tightness, hx COPD . 88-year-old woman who sustained a fall. Following the fall she became increasingly short of breath, a nd she now presents to the emergency department for evaluation. COMPARISON: 01/20/2024 TECHNIQUE: PA and lateral views of the chest. FINDINGS A 15-20% right-sided pneumothorax is suspected. The left lung is fully inflated. No discrete rib fractures are appreciated. No findings to suggest a tension pneumothorax are present. IMPRESSION: 15-20% right-sided pneumothorax, as detailed above. These findings were discussed with Dr. Lehman at 9:00 PM 03/26/2024 Reviewed, dictated and finalized at location A. PLUGGER
--- NOTE | ~2024-03-26 | XR_ITS ---
Portable chest x-ray Comparison: 04/12/2024 Clinical History: Respiratory failure Findings: Uzsfo-xx-tqotzsgg bilateral pleural effusions are present. There is bibasilar pulmonary ed blake/atelectasis. Cardiomediastinal silhouette is stable. Bones and soft tissues are unremarkable. Impression: Dkafy-vs-mgoxmpif bilateral pleural effusions with bibasilar pulmonary edema/atelectasis. Reviewed, dictated and finalized at location M. AND OILS LOADER Impression: Atond-rq-vweswllg bilateral pleural effusions with bibasilar pulmonary edema/at electasis.
--- NOTE | ~2024-03-26 | XR_ITS ---
Portable chest x-ray Comparison: 04/05/2024 Clinical History: CHF Findings: Small bilateral pleural effusions are present. There is mild bibasilar pulmonary edema/ate lectasis. Cardiomediastinal silhouette is stable. Bones and soft tissues are unremarkable. Impression: Small bilateral pleural effusions with mild bibasilar pulmonary edema/atelectasis. Stable cardiomegaly. Pericardial effusion not excluded. Reviewed, dictated and finalized at location . TORCH OPERATOR Impression: Small bilateral pleural effusions with mild bibasilar pulmonary edema/atelectas is. Stable cardiomegaly. Pericardial effusion not excluded.
--- NOTE | ~2024-03-26 | CT_ITS ---
History: Fall PROCEDURE: CT head without contrast. COMPARISON: None TECHNIQUE: Axial imaging of the head performed from the skull base to the vertex without IV contrast. Sagittal a nd coronal reformations obtained. DLP: 681 mGy-cm FINDINGS: The ventricles are enlarged. The dilatation of the ventricles is proportional to the degree of sulcal prominence, not uncommon in the senescent brain. Decreased attenuation is identified within the periventricular white matter, lik phil secondary to microvascular ischemic disease, in a patient of this age. There is no mass, mass effect or midline shift. There is no abnormal extra-axial fluid collection or intracranial hemorrhage. Visualized paranasal sinuses are clear. The mastoid air cells are well aerated. No acute displaced fractures within the overlying cranium. Impression: No acute intracranial hemorrhage or suspicious mass effect. Reviewed, dictated and finalized at location A. IAL EDUCATION CURRICULUM SPECIALIST Impression: No acute intracranial hemorrhage or suspicious mass effect.
--- NOTE | ~2024-03-26 | XR_ITS ---
Portable chest x-ray Comparison: 03/30/2024 Clinical History: Redness of breath Findings: Suspected COPD present. Possible minimal right pleural effusion. Cardiomediastinal silhou ette is stable. Bones and soft tissues are unremarkable. Impression: COPD. Minimal right pleural effusion. Reviewed, dictated and finalized at [facility]. ESSIONAL ORGANIZER Impression: COPD. Minimal right pleural effusion.
--- NOTE | ~2024-03-26 | XR_ITS ---
CHEST RADIOGRAPH CLINICAL HISTORY: POST CHEST TUBE PLACEMENT . TECHNIQUE: Single portable view of the chest. FINDINGS Interval placement of a right-sided chest tube, extending into the right lung apex, in excellent posi tion with full expansion of the right lung. The left hemithorax is unchanged. The cardiomediastinal silhouette remains enlarged. IMPRESSION: Right-sided chest tube in excellent position, with full expansion of the right lung Reviewed, dictated and finalized at location A. DRILLER
--- NOTE | ~2024-03-26 | XR_ITS ---
CHEST RADIOGRAPH CLINICAL HISTORY: POSSIBLE NEED FOR CHEST TUBE . TECHNIQUE: Single portable view of the chest. FINDINGS Redemonstration of a right-sided pneumothorax, minimally decreased in size from prior (given changes in positioning and technique). CT may provide additional information. No evidence of tension pneumothorax. No obvious rib fractures. IMPRESSION: As above. Reviewed, dictated and finalized at location A. MODEL IMPRESSION: As above.
--- NOTE | ~2024-03-26 | XR_ITS ---
EXAMINATION: XR chest 2V Exam Date/Time: 03/28/2024 17:02 UPHOLSTERER LIMOUSINE AND HEARSE HISTORY: WATER SEAL OF CHEST TUBE TO BE DONE @ 1700 Comparison: None. RESULT: Lines, tubes, and devices: Bilateral breast implants. Stable right thoracostomy tube Lungs and pleura: Minimal scattered streaky opacities, likely representing atelectasis or scarring. M ild diffuse reticular opacities. Mild right costophrenic angle blunting. Cardiomediastinal silhouette: Stable. Other: No acute osseous or upper abdominal finding. IMPRESSION: No recurrent pneumothorax. Mild interstitial edema. Small right pleural fluid collection. Reviewed, dictated and finalized at location K. LSTERER LIMOUSINE AND HEARSE IMPRESSION: No recurrent pneumothorax. Mild interstitial edema. Small right pleural fluid c ollection.
--- NOTE | ~2024-03-26 | XR_ITS ---
EXAMINATION: XR chest 1V portable DATE: 03/30/2024 12:15 INDICATION: Shortness of breath TECHNIQUE: frontal view of the chest was obtained. COMPARISON: Chest radiograph dated 04/08/2024 FINDINGS: Persistent small right pleural effusion with blunting at the right costophrenic angle. Mild streaky b ibasilar atelectasis. Calcified nodule at the medial right upper lung zone consistent with old granul omatous disease. No pneumothorax or left-sided pleural effusion. Cardiomegaly. Peripherally calcified bilateral breast implants. IMPRESSION: 1. Unchanged small right pleural effusion with mild bibasilar atelectasis. 2. Cardiomegaly. Reviewed, dictated and finalized at location A. KSMITH FARM
--- NOTE | ~2024-03-26 | XR_ITS ---
EXAMINATION: XR chest 2V DATE: 04/02/2024 13:03 INDICATION: Respiratory failure TECHNIQUE: frontal and lateral views of the chest were obtained. COMPARISON: Chest radiograph dated 03/31/2024 FINDINGS: The opacities at the bilateral lower lung zones including blunting at the posterior sulci and costoph renic angles consistent with small bilateral pleural effusions and associated bibasilar atelectasis a nd/or pneumonia. No pulmonary edema in the aerated portions of the lung. No pneumothorax. Cardiomegal y. Atherosclerotic aorta. Capsular calcifications at bilateral breast implants. Mild dextro scoliosis and severe spondylosis centered at the thoracolumbar junction. IMPRESSION: 1. Small bilateral pleural effusions with associated bibasilar atelectasis and/or pneumonia. 2. Cardiomegaly. Reviewed, dictated and finalized at location A. ER AGENT IMPRESSION: 1. Small bilateral pleural effusions with associated bibasilar atelectasis and/ or pneumonia. 2. Cardiomegaly.
--- NOTE | ~2024-03-26 | XR_ITS ---
XR chest 1V portable 04/10/2024 14:46 Indication: Respiratory failure Procedure: AP portable chest Comparison: Comparison to multiple prior studies sequentially, with oldest reviewed study dated 04/02. Findings: Cardiomegaly. Mild interstitial edema. Bilateral pleural effusions. No pneumothorax. There is atherosclerosis. There are calcified bilateral breast implants. Impression: 1: Cardiomegaly with mild interstitial edema. 2: Bilateral pleural effusions. No significant interval change compared with 04/09/2024. Reviewed, dictated and finalized at location L. NO SUPERVISOR Impression: 1: Cardiomegaly with mild interstitial edema. 2: Bilateral pleural effusions. No significant interval change compared with .
--- NOTE | ~2024-03-26 | XR_ITS ---
Portable chest x-ray Comparison: 03/26/2024 Clinical History: Chest tube Findings: Right-sided chest tube in place. No definite pneumothorax seen. Possible minimal interstit ial edema. Cardiomediastinal silhouette is stable. Bones and soft tissues are unremarkable. Impression: Right-sided chest tube without visible pneumothorax. Possible minimal interstitial edema. Reviewed, dictated and finalized at [facility]. GRINDER SET UP OPERATOR Impression: Right-sided chest tube without visible pneumothorax. Possible minimal interstitial edema.
--- NOTE | ~2024-03-26 | XR_ITS ---
EXAMINATION: XR chest 1V portable DATE: 04/16/2024 12:13 INDICATION: Shortness of breath. TECHNIQUE: A single frontal view of the chest was obtained. COMPARISON: Chest view 04/14/2024, chest CT 03/29/2024 FINDINGS: There are airspace opacities at the lung bases. There are small pleural effusions. No pneum othorax. Cardiomegaly is noted. Breast implants are noted. IMPRESSION: 1. Airspace opacities at the lung bases, consistent with atelectasis versus pneumonia. 2. Stable small pleural effusions. 3. Cardiomegaly. Reviewed, dictated and finalized at location A. ING STRATEGIST IMPRESSION: 1. Airspace opacities at the lung bases, consistent with atelectasis versus pne umonia. 2. Stable small pleural effusions. 3. Cardiomegaly.
--- NOTE | ~2024-03-26 | US_ITS ---
EXAMINATION: US venous doppler [facility] DATE: 04/12/2024 14:43 INDICATION: Edema TECHNIQUE: Grayscale ultrasound images without and with compression and Doppler ultrasound images of the bilateral lower extremity veins were obtained. COMPARISON: None. FINDINGS: The visualized portions of right common femoral vein, profunda (deep) femoral vein, femoral vein, pop liteal vein, peroneal veins, posterior tibial veins, and greater saphenous vein outflow are patent. The visualized portions of left common femoral vein, profunda femoral vein, femoral vein, popliteal v ein, peroneal veins, posterior tibial veins, and greater saphenous vein outflow are patent. IMPRESSION: 1. No deep venous thrombosis within the bilateral lower extremities. Reviewed, dictated and finalized at location A. CAID SPECIALIST
--- NOTE | ~2024-03-26 | XR_ITS ---
CHEST RADIOGRAPH, PA AND LATERAL CLINICAL HISTORY: Respiratory failure . COMPARISON: 04/02/2024 TECHNIQUE: PA and lateral views of the chest. FINDINGS Redemonstration of a large right and a small left-sided pleural effusion, largely unchanged from the previous examination dated 04/02/2024. Increased interstitial markings are identified bilaterally, findings suggesting mild pulmonary vascul ar congestion. The remainder of the lungs are clear. The cardiomediastinal silhouette is enlarged. IMPRESSION: Mild pulmonary vascular congestion with a large right and small sided pleural effusion. Reviewed, dictated and finalized at location A. .NET ARCHITECT IMPRESSION: Mild pulmonary vascular congestion with a large right and small sided pleural e ffusion.
--- NOTE | ~2024-03-26 | XR_ITS ---
Portable chest x-ray Comparison: 04/09/2024 Clinical History: CHF Findings: Gpkao-an-ysfjwotd bilateral pleural effusions are present with mild bibasilar pulmonary ed blake/atelectasis. Cardiomediastinal silhouette is stable. Bones and soft tissues are unremarkable. Impression: Vlvye-hr-jbedyafo bilateral pleural effusions with mild bibasilar pulmonary edema/atelectasis. Stable cardiomegaly. Reviewed, dictated and finalized at location . ENTER HELPER Impression: Jofpb-pe-mrbneboo bilateral pleural effusions with mild bibasilar pulmonary sami ma/atelectasis. Stable cardiomegaly.
--- NOTE | ~2024-03-26 | CT_ITS ---
Clinical indication:Shortness of breath after a fall with abnormal chest x-ray COMPARISON:Radiographic evaluations of the chest performed approximately 3 and 30 minutes earlier TECHNIQUE: Multiple contiguous axial images of the chest were performed without the administration of intravenous contrast. DLP: 366 mGy-cm FINDINGS: Redemonstration of a right-sided pneumothorax with subcutaneous air along the right anterolateral edm[address] st wall and along the posterior medial chest wall. The left lung is fully inflated. Acute posterior medial right-sided fifth rib fracture is present, likely the source of pneumothorax. Subcutaneous air is also detected in this location. No acute compression vertebral body fracture is appreciated. The heart is enlarged, without pericardial effusion. Small right-sided pleural fluid, likely blood products. No sternal fracture is present. No additional rib fracture is noted. IMPRESSION: Redemonstration of a right-sided pneumothorax, approximately 15-20% in size with a right posterior me dial fifth rib fracture. Reviewed, dictated and finalized at location A. ASONIC SEAMING MACHINE OPERATOR IMPRESSION: Redemonstration of a right-sided pneumothorax, approximately 15-20% in size wit h a right posterior medial fifth rib fracture.
--- NOTE | ~2024-03-26 | XR_ITS ---
EXAMINATION: XR chest 1V portable DATE: 04/11/2024 12:26 INDICATION: Increasing shortness of breath TECHNIQUE: frontal view of the chest was obtained. COMPARISON: Chest radiograph dated 04/10/2024 FINDINGS: No significant change in grade basilar predominant hazy airspace opacities in bilateral lower lungs w ith blunting at the costophrenic angles consistent with small bilateral pleural effusions and associa brice bibasilar atelectasis and/or pneumonia. No pneumothorax or evident pulmonary edema in the aerated portions of the lungs. Cardiomegaly. Capsular calcifications at bilateral breast implants. Moderate thoracolumbar spondylosis. IMPRESSION: 1. Unchanged small bilateral pleural effusions with associated bibasilar atelectasis and/or pneumonia . 2. Cardiomegaly. Reviewed, dictated and finalized at location A. RE AND AFTER SCHOOL DAYCARE WORKER IMPRESSION: 1. Unchanged small bilateral pleural effusions with associated bibasilar atelec tasis and/or pneumonia. 2. Cardiomegaly.
--- NOTE | ~2024-03-26 | XR_ITS ---
EXAMINATION: XR chest 1V portable DATE: 03/28/2024 09:56 INDICATION: Right pneumothorax. TECHNIQUE: A single frontal view of the chest was obtained. COMPARISON: Chest single view at 6:32 AM FINDINGS: There are airspace opacities in right mid and lower lung zones and left lower lung zone. Th ere is a small right pleural effusion. No pneumothorax. A right-sided chest tube is noted in expected position. Cardiomegaly is noted. There are bilateral breast implants. IMPRESSION: 1. No pneumothorax. Right-sided chest tube in expected position. 2. Small right pleural effusion. 3. Stable airspace opacities in right mid and lower lung zones and left lower lung zone, likely atele ctasis. 4. Cardiomegaly. Reviewed, dictated and finalized at location A. NING SUPERVISOR IMPRESSION: 1. No pneumothorax. Right-sided chest tube in expected position. 2. Small right pleural effusion. 3. Stable airspace opacities in right mid and lower lung zones and left lower l [place] zone, likely atelectasis. 4. Cardiomegaly.
--- NOTE | ~2024-03-26 | XR_ITS ---
Portable chest x-ray Comparison: 04/16/2024 Clinical History: Pneumonia Findings: Small bilateral pleural effusions are present with mild bibasilar pulmonary edema pattern. Cardiomediastinal silhouette is stable. Bones and soft tissues are unremarkable. Impression: Small bilateral pleural effusions with mild bibasilar pulmonary edema. Reviewed, dictated and finalized at [facility]. SUPPORT SPECIALIST Impression: Small bilateral pleural effusions with mild bibasilar pulmonary edema.
--- NOTE | ~2024-03-26 | XR_ITS ---
EXAMINATION: XR chest 1V portable DATE: 03/28/2024 06:41 INDICATION: Right pneumothorax. TECHNIQUE: A single frontal view of the chest was obtained. COMPARISON: Chest view 03/27/2024, chest CT 03/26/2024 FINDINGS: There are mild airspace opacities in right mid and lower lung zones and left lower lung zon e, likely atelectasis. No pleural effusion or pneumothorax. A right-sided chest tube is noted. Cardio megaly is noted. There are bilateral breast implants. IMPRESSION: 1. No pneumothorax. Right-sided chest tube in expected position. 2. Mild atelectasis in right mid and lower lung zones and left lower lung zone. 3. Cardiomegaly. Reviewed, dictated and finalized at location A. SUPERVISOR PIPE LINES
--- NOTE | ~2024-03-26 | XR_ITS ---
CHEST RADIOGRAPH CLINICAL HISTORY: s/p right chest tube removal . COMPARISON: Examination is compared with multiple prior studies, performed most recently at 7:00 AM a nd dating back to 01/20/2024 TECHNIQUE: Single portable view of the chest. FINDINGS The cardiomediastinal silhouette is enlarged, unchanged. The right lung is fully inflated following chest tube removal. Redemonstration of a right-sided pleural effusion, unchanged from prior. The remainder of the lungs are clear. IMPRESSION: Focal expansion of the right lung on plain film evaluation, as detailed above. Redemonstration of a small right-sided pleural effusion. Reviewed, dictated and finalized at location A. RACY CONSULTANT
--- OUTSIDE RECORDS SUMMARY | 2024-03-26 19:44 | XMS_ITS | Continuity of Care Document ---
Author Organization [facility] Address [address] [place] [address] [address] [place] [address] Phone Care Team Providers Care Circular Stuffer Name Role Phone Neelima London Unavailable Unavailable Procedures Procedure Date Eye Exam & Treatment Refraction Office/outpatient Visit, Est No Script Eye Exam Established Pt No Script Eye Exam Established Pt Advance Directives Directive Yes / No Effective Date File Name No Information Encounters Encounter Description Practice Location Reason(s) For Visit Diagnoses Date Provider Providers Copied on Encounter [facility], [address] [place] [address] [address], [place], [place], [id number], [place] tel:[phone] [facility] No Information 2-201 0 Lita Ortez. [address], [place], [place], [facility], . tel:[phone] Office/outpat ient Visit, Est [facility], [address] [place] [address] [address], [place], [place], [id number], [place] tel:[phone] [facility] No Information Sep-0 9-200 9 Ev Barrow. [address] [facility] [address], [place], [place], [facility], . tel:[phone] [facility], [id number] [place] [address] [address], [place], [place], [id number], [place] tel:[phone] [facility] No Information Sep-0 2-200 9 Ev Barrow. [address], [place], [address], [place]. tel:[phone] [facility] Eye [facility], [address], [place], [place], [id number], [place] tel:[phone] [facility] No Information 8 Smita Chopra. [address], [place], [address], [place]. tel:[phone] Family History Family Member Type Diagnosis Age At Onset No Information Payers Payer name Insurance type Covered libertarian ID Natachamaxine lornaobinna(s) [employer] Vision Plan CI [id number] Social History Type Description Quantity Date Captured Comments Sex Female Smoking Status No Information Chief Complaint And Reason For Visit No Information Reason For Referral Reason For Referral No Information History Of Present Illness Encounter Date Complaint History Of Prese nt Illness No Information Functional Status Date Functional Assessmen t No Information Instructions Date Instruction Additional Infor mation No Information Assessments Type Assessment Date No Information Patient Care Teams Name Effective Dates (start - stop) Status Members No Information
--- OUTSIDE RECORDS SUMMARY | 2024-03-26 19:44 | XMS_ITS | Encounter Summary ---
Author Organization [facility] Address [address] [place] [address] Care Team Providers Care Chrome Plater Helper Name Role Phone Oscar Carroll MD Unavailable + Oleg Marrero MD Unavailable [phone] Paulina Houser NP Primary Care Provider [phone] Reason for Visit * Reason Onset Date Comments Med Refill 03/11/2024 Encounter Details Date Type Department Care Team (Late st Contact Info) Description 03/11/2024 Telephone [facility] Cardiology [address] [facility] [address] [place] [address] Caridad Self MD [address] [id number] Med Refill Social History Tobacco Use Types Packs/Day Years Used Date Smoking Tobacco: Former Cigarettes 1 67.1 S tarted: 1955 Smokeless Tobacco: Never Comments:says she quit 2 yea rs ago but cheats once a week. one cigarette a week Alcohol Use Standard Drinks/Week Comments Never 0 (1 standard drink = 0.6 oz pur e alcohol) AUDIT-C Answer Date Recorded Q1: How often do you have a drink containing alc ohol? Never 10/18/2022 Average Number of Drinks Not on file 023 Frequency of Binge Drinking Not on file 09/20 Personal Safety Answer Date Recorded Have you ever been in or are you currently in a harmful physical or emotional relationship or is someone making you feel afraid or unsafe? Denies 10/18/2022 Comments No Sex and Gender Information Value Date Recorded Sex Assigned at Not on file Legal Sex Female 12:02 PM COIL REWIND MACHINE OPERATOR Gender Identity Female 10/28/2019 5:35 PM CDT Sexual Orientation Straight 10/28/2019 5: 35 PM CDT documented as of this encounter Miscellaneous Notes * Telephone Encounter - Teresa Tadeo MA - 03/12/2024 9:11 AM CST Thank you- sent to pharmacy REWIND MACHINE OPERATOR * Telephone Encounter - Tequila Garza NP - 03/12/2024 9:07 AM COIL REWIND MACHINE OPERATOR Our med list shows that she takes 2 per day REWIND MACHINE OPERATOR * Telephone Encounter - Tequila Garza NP - 03/12/2024 9:07 AM COIL REWIND MACHINE OPERATOR Yes that is fine, thanks. REWIND MACHINE OPERATOR * Telephone Encounter - Teresa Tadeo MA - 03/11/2024 2:55 PM CST Tequila, Is this okay to send in your name? Thank you REWIND MACHINE OPERATOR * Telephone Encounter - Penny Vazquez - 03/11/2024 2:48 PM CST Patient requesting refill for potassium chloride ER 20 mEq CR tablet with 60 day supply. Please send to [facility] pharmacy. Thank you. Contact [phone] REWIND MACHINE OPERATOR documented in this encounter Plan of Treatment Not on file documented as of this encounter Visit Diagnoses Not on filedocumented in this encounter Care Teams Chrome Plater Helper Relationship Specialty Start Date End Date Paulina Houser NP [address] [place] [address] PCP - General Family Medicine 03/05/24 Oscar Carroll MD [address] [place] [address] [employer] Gastroenterology 09/03/19 Oleg Marrero MD [address] [place] [address] Surgeon Colon and Rectal Surgery 10/13/19 documented as of this encounter
--- OUTSIDE RECORDS SUMMARY | 2024-03-26 19:44 | XMS_ITS | Clinical Summary ---
Author Organization [facility] Address [facility] [place] [address] Care Team Providers Care Forward Air Controller/Air Officer Name Role Phone Roman Mancia Primary Care Provider [phone] Allergies No known active allergies Medications aspirin EC (ASPIRIN EC) 81 MG tablet Take 81 mg by mouth daily. Active Ascorbic Acid 1000 MG Tab Take 1,000 mg by mouth daily. Active amLODIPine 5 MG tablet Take 5 mg by mouth daily. 1 Active MULTIPLE VITAMINS OR Active vitamin D3, cholecalciferol , (CHOLECALCIFERO L) 5000 UNITS capsule Take 5,000 Units by mouth daily. Active WIXELA INHUB 250-50 MCG/DOSE inhaler Inhale 1 puff into the lungs every 12 (twelve) hours. 1 Active gabapentin 300 MG capsule Take 300 mg by mouth. Active levothyroxine 75 MCG tablet Take 75 mcg by mouth daily. 1 Active meclizine 25 MG tablet TAKE 1 TABLET BY MOUTH THREE TIMES DAILY NEEDED FOR DIZZINESS 1 Active Junction 3 1200 MG Cap Take 2 tablets by mouth daily. Active dupilumab 300 mg/2 mL injection Inject 300 mg into the skin every 14 (fourteen) days. Active Family History Medical History Relation Comments Cancer Father Cancer Mother Dementia Sister Relation Status Comments Father Mother Sister Social History Tobacco Use Types Packs/Day Years Used Date Smoking Tobacco: Former Smokeless Tobacco: Never Tobacco Cessation:Counseling Given: No Comments:Unsure of how long ago she quit Alcohol Use Standard Drinks/Week Comments Not Currently 0 (1 standard drink = 0.6 oz pur e alcohol) Comments Unknown Sex and Gender Information Value Date Recorded Sex Assigned at Not on file Legal Sex Female 9:14 AM BORDER MACHINE OPERATOR Gender Identity Not on file Sexual Orientation Not on file Last Filed Vital Signs Vital Sign Reading Time Taken Comments Blood Pressure 168/86 04/21/2021 9:26 AM BORDER MACHINE OPERATOR Pulse 75 04/21/2021 9:26 AM BORDER MACHINE OPERATOR Temperature 36.9 C (98.4 F) 04/21/2021 9:26 AM BORDER MACHINE OPERATOR Respiratory Rate 16 04/21/2021 9:26 AM BORDER MACHINE OPERATOR Oxygen Saturation 92% 04/21/2021 9:26 AM BORDER MACHINE OPERATOR Inhaled Oxygen Concentration - - Weight 89.8 kg (198 lb) 04/21/2021 9:26 AM BORDER MACHINE OPERATOR Height 160 cm (5' 3 ) 04/21/2021 9:26 AM BORDER MACHINE OPERATOR Body Mass Index 35.07 04/21/2021 9:26 AM BORDER MACHINE OPERATOR Plan of Treatment Health Maintenance Due Date Last Done Comments DTaP, Tdap and Td Vaccines (1 - Tdap) 1954 Annual Medicare Wellness Visit 2002 Zoster Vaccines (2 of 3) 06/06/2012 04/11/2012 RSV Immunization or 60+ Years (1 - 1-dose 75+ series) 2012 Pneumococcal Vaccine: 65+ Years (2 of 2 - PPSV23 or PCV20) 12/01/2018 12/01/2017 COVID-19 Vaccine ( season) 2023 12/23/2020, 05/05/2020, 04/16/2020 Influenza Adult (#1) 2023 11/19/2018, 11/18/2017, 11/19/2016, Additional history exists Meningococcal B Vaccine Aged Out No l onger eligible based on patient's age to complete this topic Meningococcal Vaccine Aged Out No page teressa eligible based on patient's age to complete this topic RSV Immunizations Under 20 Months Aged Out No longer eligible based on patient's age to complete this topic Insurance Member Subscriber Plan / Payer (Ef fective 2021-Present) Name:CHRIS TINEO Relation to Subscriber:Self Name:CHRIS Tineo Payer ID:[id number] (NAIC) Type:Not on file Address: [place] [id number] Care Teams Forward Air Controller/Air Officer Relationship Specialty Start Date End Date Roman Mancia DO [address] [address] PCP - General INTERNAL MEDICINE 02/21/21
--- OUTSIDE RECORDS SUMMARY | 2024-03-26 19:44 | XMS_ITS ---
Author Organization [facility] Address [address] [place] [address] Care Team Providers [facility] Coordinator Name Role Phone Oscar Carroll MD Unavailable + Oleg Marrero MD Unavailable [phone] Paulina Houser NP Primary Care Provider [phone] Active Problems Problem Noted Date Diagnosed Date Atrial fibrillation (CMS/HCC) 03/26/2024 Screening for malignant neoplasm of colon 2020 Overview (07/20/2020): Added automatically from request for surgery [id number] History of colon cancer 10/29/2019 Clostridium difficile infection 10/07/2019 Acute postoperative abdominal pain 09/23/2019 Malignant neoplasm of hepatic flexure (CMS/HCC) 09/09/2019 Overview (09/09/2019): Added automatically from request for surgery [id number] Malignant neoplasm of transverse colon (CMS/HCC) 09/08/2019 Other atopic dermatitis 02/26/2018 Pruritus, unspecified 02/26/2018 Venous barkley of lip 02/26/2018 Current Oncology Plans No current plan information found. Past Plans No past plan information found. Radiation Treatments * No radiation treatments are documented for this patient in [facility]. Treatments may have been administered in another system. Lifetime Dose Tracking * Chemical Lifetime Dose Automatic Entry Manual Entr y DLP 1,286 mGycm 1,286 mGycm 0 mGycm Treatment Summaries Malignant neoplasm of transverse colon (CMS/HCC) (HCC)* Images from the original note were not included. [id number] [place] [address] This Survivorship Care Plan is a cancer treatment summary and follow-up plan and is provided to youto keep with your health care records and to share with your primary care provider or any of your doctors and nurses. This summary is a brief record of major aspects of your cancer treatment not a detailed or comprehensive record of your care. You should review this with your cancer provider. Treatment Summary and Survivorship Care Plan for Colorectal Cancer General Information Patient name Kanchan Abbott (home) Date of 1935 Health Care Providers (Including Names, Institutions) Provider Name: Contact Information: Primary Care Physician Roman Mancia DO [phone] Surgeon Oleg Marrero MD Radiation Oncologist Medical Oncologist Lead Data Entry Operator Oscar Bill MD Treatment Summary Cancer Diagnosis Information Diagnosis Malignant neoplasm of transverse colon (CMS/HCC) Diagnosis date 09/08/2019 Staging information Cancer Staging Stage II Predisposing Conditions None Family History of Colon, Rectal or Anal Cancer Colon, Rectal, or Anal Cancer- related family historyis negative for Colon cancer. Received Genetic counseling No Genetic Testing No Pre-op Colonoscopy Yes Completion to cecum Yes Treatment Completed Surgery Surgery date 09/23/2019 Surgical procedure / location / findings Laparoscopic Right Colon Resection Radiation No Permanent [place] No Systemic Therapy (chemotherapy, hormonal therapy, other) [No treatment plan] Lifetime Dose Tracking Lifetime Dose Tracking No doses have been documented on this patient for the following tracked chemicals: doxorubicin, epirubicin, idarubicin, daunorubicin, mitoxantrone, bleomycin, mitomycin, cyclophosphamide, carmustine,ifosfamide, etoposide, doxorubicin HCl pegylated liposomal, etoposide phosphate, valrubicin, doxorub icin isotoxic equivalent Research Studies [facility] ([facility]) BIOBANK CORE: TISSUE AND BLOOD SPECIMENS Status On study Start Date 09/23/19 Persistent symptoms or side effects that have continued after finishing treatment: None Treatment Ongoing: No Follow-up Care Plan Your follow-up care plan is design to inform you and primary care providers regarding the recommended and required follow-up, cancer screening and routine health maintenance that is needed to maintain optimal health. Schedule of Clinical Visits Coordinating Provider When/How often Colon Surgeon: Oleg Marrero MD (Patients may alternate with Medical oncology and Surgeon if both are [facility] Physicians) History and Physical every 3 months for 2 years then, every 6 months for following 3 years Roman Mancia After 5 years of treatment completion - yearly exam Cancer Surveillance or other Recommended Tests Coordinating Provider Test How Often Colon Surgeon: Oleg Marrero MD Colonoscopy 1 year after surgery Colon Surgeon: Oleg Marrero MD CEA blood test Every 3 months for 2 years then every 6 months for following 3 years. Colon Surgeon: Oleg Marrero MD Chest/Abdominal/pelvic CT (high risk patients) Yearly up to 5 years Possible late- and long-term effects that someone with this type of cancer and treatment may experience: Bowel problems (urgency, incontinence, change in consistency) Numbness/tingling Fatigue Memory/concentration difficulty Patients receiving radiation therapy for rectal cancer may also experience: Pelvic insufficiency fractures Urinary problems - urinary incontinence Sexual dysfunction - erectile dysfunction, ejaculatory problems, menopause, vaginal dryness, painful intercourse Please continue to see your primary care provider for all general health care recommended for a patient your age, including cancer screening tests, except for colon cancer. Any symptoms should be brought to the attention of your provider: Anything that represents a brand new symptom; Anything that represents a persistent symptom; Anything you are worried about that might be related to the cancer coming back. Cancer survivors may experience issues with the areas listed below. If you have any concerns in these or other areas, please speak with your doctors or nurses to find out how you can get help with them. Anxiety and depression Emotional and mental health Fatigue Fertility Financial advice or assistance Insurance Memory or concentration loss Parenting Physical functioning School/work Sexual functioning Stopping smoking Weight changes Other A number of lifestyle/behaviors can affect your ongoing health, including the risk for the cancer coming back or developing another cancer. Discuss these recommendations with your doctor or nurse: Colon and Rectal cancer require lifelong surveillance. It is essential that you follow your doctors??? recommendations for follow up appointments and tests. Eat a healthy diet: focus on lean meats and proteins, more fruits, vegetables and whole grains and low in sugars and fats. Limit red meat and avoid processed meat. Maintain a healthy weight; avoid being overweight. Aim for a normal body mass index (BMI) of 18.5-24.9. Help learning to eat healthier, call the funeral professional at: [facility] . Have an active lifestyle, strive for 30 minutes of moderate exercise 5 times a week and strength orresistance training at least twice a week. Use broad-spectrum (UVA+UVB) sunscreen with SPF 30 or greater, is water resistant, limit time spentin the sun (10 am-4pm), wear hat, wear UV protective clothing, wear sunglasses. Never use a tanningbed. Skin that was irradiated may be more sensitive over your lifetime. Do not smoke or chew tobacco; participate in a smoking cessation program. Limit alcohol intake, 1 drink per day for a woman and 2 drinks per day for a man. Family members may be at risk for colorectal cancer, please advise your family members to discuss with their primary care physician their risk and screening needs. Family members may be at risk for colorectal cancer, please advise your family members to discuss with their primary care physician their risk and screening needs. Discuss your need for daily aspirin and other healthy life style measures with your primary care physician. Resources you may be interested in: [facility] [place] [facility] [place] [facility] [email or web address]/ [facility] Information Center 1st floor of [facility] [phone]. Computer access, educational material, counseling services (FREE) [employer]: the place for ostomy resources, advocacy, and support. www.ostomy.org The ostomy nurse at [facility] can be reached at [phone] Online Resources: www.cancer.net; http://www.cdc.gov/cancer/survivorship; http://www.cancercare.org/tagged/post-treatment_survivorship; http://www.cancer.gov/about-cancer/coping/survivorship [employer]: https://survivorship.cancer.gov/ an online tool for cancer survivors andcaregivers created by the [place] [employer] and the National Cancer [place]. It provides: Information on dealing with side effects from cancer and treatment Caregivers with support and resources Practical advice about talking to friends and family about cancer Questions to ask their health care team Help understanding their rights in the workplace
--- OUTSIDE RECORDS SUMMARY | 2024-03-26 19:44 | XMS_ITS | Encounter Summary ---
Author Organization [facility] Healthcare Address [address] [place] [address] Care Team Providers Care Manager Talent Management Name Role Phone Oscar Carroll MD Unavailable + Oleg Marrero MD Unavailable [phone] Paulina Houser NP Primary Care Provider Reason for Referral * Cardiology (Routine) - Closed Specialty Diagnoses / Procedures Referred By Contcarolina t Referred To Contact Procedures ECG 12 lead Tequila Alegre NP [address] [address] Phone: tel: fax: Referral ID Status Reason Start Date Expiration Date Visits Re quested Visits Authorized [id number] Closed 03/26/2024 04/25/2025 1 1 CTURED CABLING TECHNICIAN Reason for Visit * Reason Comments Follow-up 3-4 Week follow up Encounter Details Date Type Department Care Team (Late st Contact Info) Description 03/26/2024 10:30 AM STRUCTURED CABLING TECHNICIAN Office Visit [facility] Medical Group Cardiology [address] [facility] [address] [phone] Tequila Alegre NP [address] [place] [address] Persistent atrial fibrillation (HCC) (Primary Dx); Encounter for anticoagulation discussion and counseling; On amiodarone therapy; MARC (obstructive sleep apnea); Chronic obstructive pulmonary disease, unspecified COPD type (HCC); Edema, lower extremity Social History Tobacco Use Types Packs/Day Years [...] on file Legal Sex Female 12:02 PM STRUCTURED CABLING TECHNICIAN Gender Identity Female 10/28/2019 5:35 PM CDT Sexual Orientation Straight 10/28/2019 5: 35 PM CDT documented as of this encounter Last Filed Vital Signs Vital Sign Reading Time Taken Comments Blood Pressure 110/62 03/26/2024 10:38 AM STRUCTURED CABLING TECHNICIAN Pulse 95 03/26/2024 10:38 AM STRUCTURED CABLING TECHNICIAN Temperature - - Respiratory Rate - - Oxygen Saturation 96% 03/26/2024 10:38 AM STRUCTURED CABLING TECHNICIAN Inhaled Oxygen Concentration - - Weight 93 kg (205 lb) 03/26/2024 10:38 AM STRUCTURED CABLING TECHNICIAN Height 160 cm (5' 3 ) 03/26/2024 10:38 AM STRUCTURED CABLING TECHNICIAN Body Mass Index 36.31 03/26/2024 10:38 AM STRUCTURED CABLING TECHNICIAN documented in this encounter Ordered Prescriptions Prescription Sig Dispense Quantity Refills Last Filled Start Date End Date warfarin (COUMADIN) 2 mg tabletIndications: atrial fibrillation Take 2 tablets (4 mg total) by mouth daily Take as directed, dose may change after blood test 60 tablet 11 03/26/2024 documented in this encounter Progress Notes * Greg, Tequila Emily, CROSSBOW MAKER - 03/26/2024 10:30 AM CST Images from the original note were not included. [facility] Medical Group Cardiology [address] [place] [id number] Date of Visit: 03/26/2024 Patient ID: Kanchan Abbott 1935 Chief Complaint Patient presents with Follow-up 3-4 Week follow up Kanchan Abbott is a 88 y.o. female who comes to the office for follow up for atrial fibrillation. History of Present Illness: Kanchan Abbott is a 88 y.o. female with a past medical history of COPD (former smoker, uses supplemental oxygen), GERD, HTN, HLD, hypothyroidism, mild MARC, eczema, but no previous cardiac history. She presented to [facility] on 01/22/2024 from her PCP office (she was there for routine follow-up) but was found to be tachycardic and endorsed that she had been more short of breath the past few days. However she denied palpitations or chest pain. ECG showed AFib with RVR. She was admitted for further evaluation. She was treated for COPD exacerbation. Oxana Fragoso NP / Dr. Self saw her in consultation for the AFib. Echocardiogram showed normal LV and RV size and systolic function, biatrial dilatation, no left atrial appendage thrombus seen. She was placed on Eliquis for anticoagulation and metoprolol for rate control. Rate control could not be achieved, so she underwent EVY and after no thrombus was seen, underwent successful cardioversion restoring sinus rhythm on 01/23/2024. She was discharged on 01/25/2024. She had a follow-up visit with her music ministries director (José Tate [employer]OSSBOW [employer]KER) on 01/29/2024. At that time, rhythm was noted to be irregular on exam, suspicious for AFib recurrence. Mr. Tate ordered a new sleepstudy since her previous study was done several years ago and she was currently not treating her sleep apnea. Also, apparently Mr. Tate had suspected the patient was in AFib when he saw her for herprevious visit in September, advised her to follow-up on this, but apparently patient did not understand these instructions. 03/05/2024 Hospital follow-up with CROSSBOW MAKER: Kanchan Abbott comes to the office today for a hospital follow up visit. She is accompanied by granddaughter who is helping with her care. She is concerned about cost of Eliquis. She denies bleeding problems. She does not feel palpitations or chest pain. She does have however difficult to discern from her COPD. She is still waiting to hear about getting a sleep study scheduled. 12-lead ECG performed in the office today was independently interpreted by me and showed atrial fibrillation with rapid ventricular response, rate 140 bpm, low voltage,. 03/26/2024 office visit [employer] MAKER: She returns to the office for follow-up accompanied by her granddaughter. Overall she feels she is doing a little better. She had some diarrhea after starting amiodarone and is tapering off. She denies bleeding problems. She ran out of Eliquis about 2 days ago. Her sleepstudy is scheduled for next week. Her family has been helping her use the compression stockings I recommended. 12-lead ECG performed in the office today was independently interpreted by me and showed atrial fibrillation with variable ventricular response, rate 73 beats per minute Medical History: Past Medical History: Diagnosis Date Arthritis Basal cell carcinoma of skin of face Basal cell carcinoma of skin of face - (Added by TW Conv) Basal cell carcinoma of skin of scalp and neck Basal cell carcinoma of scalp - (Added by TW Conv) Colon cancer (CMS/HCC) (HCC) 08/2019 COPD (chronic obstructive pulmonary disease) (HCC) Hypertension Malignant neoplasm of skin Skin cancer - (Added by TW Conv) Pruritus Chronic pruritus - (Added by TW Conv) Sleep apnea Thyroid disease Past Surgical History: Procedure Laterality Date ABDOMINAL SURGERY 09/23/2019 Right hemicolectomy [place] LIGJ DIVJ &/EXCJ VARICOSE VEIN CLUSTER 1 LEG Varicose Vein Ligation - (Added by TW Conv) [place] TONSILLECTOMY PRIMARY/SECONDARY <AGE 14 Tonsillectomy - (Added by TW Conv) Social History Tobacco Use Smoking Status Former Current packs/day: 1.00 Average packs/day: 1 pack/day for 67.1 years (67.1 ttl pk-yrs) Types: Cigarettes Start date: 1955 Smokeless Tobacco Never Tobacco Comments says she quit 2 years ago but cheats once a week. one cigarette a week Social History Tobacco Use Smoking status: Former Current packs/day: 1.00 Average packs/day: 1 pack/day for 67.1 years (67.1 ttl pk-yrs) Types: Cigarettes Start date: 1955 Smokeless tobacco: Never Tobacco comments: says she quit 2 years ago but cheats once a week. one cigarette a week Substance and Sexual Activity Drug use: Never Sexual activity: Defer Alcohol Use: Not At Risk (10/18/2022) AUDIT-C Frequency of Alcohol Consumption: Never Average Number of Drinks: Not on file Frequency of Binge Drinking: Not on file Family History Problem Relation Age of Onset Cancer Other Family history of malignant neoplasm - (Added by TW Conv) Brain cancer Mother Brain tumor - (Added by TW Conv) Breast cancer Mother Family history of malignant neoplasm of breast - (Added by TW Conv) Dementia Sister Family history of dementia - (Added by TW Conv) Colon polyps Son Colon cancer Neg Hx Review of Systems Constitutional: Negative for weight gain and weight loss. Cardiovascular: Positive for leg swelling. Negative for chest pain, near- syncope, orthopnea, palpitations, paroxysmal nocturnal dyspnea and syncope. Respiratory: Positive for shortness of breath. Negative for cough and sleep disturbances due to breathing. Hematologic/Lymphatic: Negative for bleeding problem. Does not bruise/bleed easily. Gastrointestinal: Positive for diarrhea. Vital Signs: BP 110/62 (BP Location: Left arm, Patient Position: Sitting) Pulse 95 Ht 160 cm (5' 3 ) Wt 93kg (205 lb) SpO2 96% BMI 36.31 kg/m?? Physical Exam Constitutional: General: She is not in acute distress. Appearance: She is well-developed. She is obese. Interventions: Nasal cannula in place. Comments: Seated in wheelchair HENT: Head: Normocephalic and atraumatic. Eyes: General: No scleral icterus. Conjunctiva/sclera: Conjunctivae normal. Neck: Vascular: No JVD. Trachea: No tracheal deviation. Cardiovascular: Rate and Rhythm: Normal rate. Rhythm irregular. Heart sounds: Normal heart sounds. No murmur heard. Pulmonary: Effort: Pulmonary effort is normal. No respiratory distress. Breath sounds: Decreased breath sounds present. Comments: Supplemental oxygen by nasal cannula Musculoskeletal: Right lower leg: Edema present. Left lower leg: Edema present. Comments: 1+ bilateral ankle and pretibial edema Skin: General: Skin is warm and dry. Neurological: Mental Status: She is alert and oriented to person, place, and time. Psychiatric: Mood and Affect: Mood normal. Behavior: Behavior normal. No Known Allergies Current Outpatient Medications: albuterol HFA (PROVENTIL HFA,VENTOLIN HFA,PROAIR HFA) 90 mcg/actuation inhaler, Inhale 1 puff as needed, Disp: , Rfl: amiodarone (PACERONE) 200 mg tablet, Take 2 tablets (400 mg total) by mouth 2 (two) times a day for7 days, THEN 2 tablets (400 mg total) daily for 7 days, THEN 1 tablet (200 mg total) daily., Disp: 402 tablet, Rfl: 0 amLODIPine (NORVASC) 5 mg tablet, Take 1 tablet (5 mg total) by mouth every morning, Disp: , Rfl: ascorbic acid (VITAMIN C) 1,000 mg tablet, Take 1 tablet (1,000 mg total) by mouth daily, Disp: , Rfl: aspirin 81 mg tablet, Take 1 tablet (81 mg total) by mouth every morning, Disp: , Rfl: atorvastatin (LIPITOR) 40 mg tablet, TAKE 1 TABLET(40 MG) BY MOUTH DAILY, Disp: 90 tablet, Rfl: 3 busPIRone (BUSPAR) 5 mg tablet, Take 1 tablet (5 mg total) by mouth 2 (two) times a day, Disp: , Rfl: calcium carbonate-vitamin D3 1500 mg (600 mg elemental) -200 units per tablet, Take 1 tablet by mouth every morning, Disp: , Rfl: cholecalciferol (VITAMIN D-3) 5,000 unit capsule, Take 1 capsule (5,000 Units total) by mouth daily, Disp: , Rfl: dupilumab (DUPIXENT) 300 mg/2 mL syringe, Inject 2 mL (300 mg total) under the skin every 14 (fourteen) days., Disp: 4 Syringe, Rfl: 5 furosemide (LASIX) 40 mg tablet, TAKE 1 TABLET(40 MG) BY MOUTH DAILY, Disp: 90 tablet, Rfl: 3 ibuprofen (ADVIL,MOTRIN) 600 mg tablet, Take 1 tablet (600 mg total) by mouth every 8 (eight) hours, Disp: 30 tablet, Rfl: 0 levothyroxine (SYNTHROID, LEVOTHROID) 75 mcg tablet, Take 1 tablet (75 mcg total) by mouth gaming cage worker before breakfast, Disp: , Rfl: 0 metoprolol XL (TOPROL-XL) 50 mg extended release tablet, TAKE 1 TABLET(50 MG) BY MOUTH DAILY, Disp:90 tablet, Rfl: 3 omega-3 fatty acids-fish oil 684-1,200 mg capsule,delayed release(DR/EC), Take 2 tablets by mouth every morning , Disp: , Rfl: potassium chloride ER 20 mEq CR tablet, Take 2 tablets (40 mEq total) by mouth daily, Disp: 60 tablet, Rfl: 4 Wixela Inhub 100-50 mcg/dose diskus inhaler, INHALE 1 PUFF BY MOUTH EVERY 12 HOURS, Disp: , Rfl: warfarin (COUMADIN) 2 mg tablet, Take 2 tablets (4 mg total) by mouth daily Take as directed, dose may change after blood test, Disp: 60 tablet, Rfl: 11 Lab Results Component Value Date POTASSIUM 3.3 10/06/2019 BUNSER 8 10/06/2019 CREATININE <0.50 (L) 10/06/2019 Lab Results Component Value Date WBC 7.3 10/06/2019 HGB 9.9 (L) 10/06/2019 HCT 30.9 (L) 10/06/2019 MCV 92.8 10/06/2019 No results found for this or any previous visit (from the past 4 hours). No results found for: POCCHOL , POCHDL , POCTRIG , POCLDL , POCNONHDL , POCCHLPL Assessment: Diagnoses and all orders for this visit: Persistent atrial fibrillation (HCC) (Primary) - warfarin (COUMADIN) 2 mg tablet; Take 2 tablets (4 mg total) by mouth daily Take as directed, dose may change after blood test Encounter for anticoagulation discussion and counseling On amiodarone therapy MARC (obstructive sleep apnea) Chronic obstructive pulmonary disease, unspecified COPD type (HCC) Edema, lower extremity Plan/Recommendations: She has remained in atrial fibrillation but now has better rate control. Continue amiodarone and metoprolol the same for now. She is unable to afford Xoopit and did not qualify for patient assistance. She ran out of Xoopit 2 days ago. I will start her on warfarin with a prescription for 2 mg tablets: Begin warfarin 4 mg daily this evening. Get an INR 1 week after starting warfarin. My nurse didlexy teaching with her. Once her INR is therapeutic, we will plan a cardioversion 30 or more days later. She is aware of the relationship between untreated sleep apnea and AFib. She is scheduled for her split night sleep study next week. We may want to consider waiting to do a repeat cardioversion untilshe would get started on CPAP. For treatment of COPD, continue supplemental oxygen and Wixela, and routine follow-up with pulmonology. For the lower extremity edema, continue using 20 mmHg knee-high compression stockings, remove them at night. Continue furosemide 40 mg daily with potassium supplementation. Keep the previously scheduled follow-up visit with Dr. Self in April. Call us sooner with questions or concerns. Addendum: I directed her to discontinue aspirin because she has no other medical indication for antiplatelet therapy and to reduce her risk of bleeding while on oral anticoagulant. 03/26/2024 IGOR Gamboa- Nurse Practitioner with [facility] [facility] This note is dictated and transcribed using [employer] Direct Software. Vertical Mill Operator variancesmay occur. Despite proofreading, typographical errors may occur. CTURED CABLING TECHNICIAN CTURED CABLING TECHNICIAN documented in this encounter Miscellaneous Notes * Addendum Note - Tequila Alegre NP - 03/26/2024 10:30 AM CSTAddended by: TEQUILA ALEGRE on: 03/26/2024 11:28 AM Modules accepted: Orders CTURED CABLING TECHNICIAN documented in this encounter Plan of Treatment Not on file documented as of this encounter Procedures Procedure Name Priority Date/Time Associated Diagnosis Comments ECG 12-LEAD Routine 03/26/2024 4:15 PM STRUCTURED CABLING TECHNICIAN documented in this encounter Results * ECG 12 lead (03/26/2024 4:15 PM STRUCTURED CABLING TECHNICIAN) Tequila Alegre NP ECG ORDERABLES Final Res ult documented in this encounter Visit Diagnoses Diagnosis Persistent atrial fibrillation (HCC)- Primary Atrial fibrillation Encounter for anticoagulation discussion and counseling On amiodarone therapy MARC (obstructive sleep apnea) Obstructive sleep apnea (adult) (pediatric) Chronic obstructive pulmonary disease, unspecified COPD type (HCC) Edema, lower extremity documented in this encounter Discontinued Medications Medication Sig Discontinue Reason Start Date End Da te apixaban (ELIQUIS) 5 mg tablet Take 1 tablet (5 mg total) by mouth 2 (two) times a day Alternate therapy 03/05/2024 03/26/2024 aspirin 81 mg tablet Take 1 tablet (81 mg total) by mouth every morning Other 03/26/2024 documented as of this encounter Care Teams Manager Talent Management Relationship Specialty Start Date End Date Paulina Houser NP [address] [place] [address] PCP - General Family Medicine 03/05/24 Oscar Carroll MD [address] [place] [address] Flight Engineer Inspector Gastroenterology 09/03/19 Oleg Marrero MD [address] [place] [address] Surgeon Colon and Rectal Surgery 10/13/19 documented as of this encounter
--- OUTSIDE RECORDS SUMMARY | 2024-03-26 19:44 | XMS_ITS | Encounter Summary ---
Author Organization [facility] Healthcare Address [address] [place] [address] Care Team Providers Care Integration Assistant Name Role Phone Oscar Carroll MD Unavailable + Oleg Marrero MD Unavailable [phone] Paulina Houser NP Primary Care Provider [phone] Encounter Details Date Type Department Care Team (Late st Contact Info) Description 03/26/2024 Telephone [facility] Medical Group Cardiology [address] [facility] [address] [place] [phone] Tequila Garza NP [address] [place] [address] Social History Tobacco Use Types Packs/Day Years Used Date Smoking Tobacco: Former Cigarettes 1 67.1 S tarted: 8 Smokeless Tobacco: Never Comments:says she quit 2 [...] on file Legal Sex Female 12:02 PM CERTIFIED NURSES' AIDE Gender Identity Female 10/28/2019 5:35 PM CDT Sexual Orientation Straight 10/28/2019 5: 35 PM CDT documented as of this encounter Miscellaneous Notes * Telephone Encounter - Teresa Snowden RN - 03/26/2024 11:49 AM CERTIFIED NURSES' AIDE Per CT, once pt has been therapeutic for 30 days she should be scheduled for CV. IFIED NURSES' AIDE * Telephone Encounter - Teresa Snowden RN - 03/26/2024 11:27 AM CERTIFIED NURSES' AIDE Warfarin education reviewed with pt and pts granddaughter. Written information provided. Both verbalize understanding and all questions and concerns answered. Pt will start at 4mg daily and check INRin 1 week a [facility]. Pt request that we call her granddaughter with INR results. IFIED NURSES' AIDE documented in this encounter Plan of Treatment Scheduled Orders Name Type Priority Associated Diagnoses Orde r Schedule Protime-INR Lab Routine Chronic anticoagulation weekly for 52 Occurrences starting 03/26/2024 until 03/26/2025 documented as of this encounter Visit Diagnoses Diagnosis Chronic anticoagulation- Primary Encounter for long-term (current) use of anticoagulants documented in this encounter Care Teams Integration Assistant Relationship Specialty Start Date End Date Paulina Houser NP [address] [place], [place] [id number] PCP - General Family Medicine 03/05/24 Oscar Carroll MD [address] [place] [address] Data Designer Gastroenterology 09/03/19 Oleg Marrero MD [address] [place] [address] Surgeon Colon and Rectal Surgery 10/13/19 documented as of this encounter
--- OUTSIDE RECORDS SUMMARY | 2024-03-26 19:44 | XMS_ITS | Patient Health Summary ---
Author Organization [facility] Address [address] [place] [place] [address] Care Team Providers Care Slicer Machine Operator Name Role Phone Brandon Roberts MD Primary Care Provider Note from [facility],non-owned Affiliates and Associated Physician Practices is amultiple site organization consisting of ambulatory clinics and hospital sitesin [place], [place], [place] and [place]. This disclosure is being madepursuant to the Care Everywhere program and may not contain all information available regarding this patient. Last updated 17.[facility] Allergies No known active allergies Medications * Be aware that medications may not be up to date on this document. Alwaysverify current medications with the patient. * ASPIRIN 81 PO * amLODIPine (NORVASC) 5 MG tablet Take 5 mg by mouth once daily * Calcium Citrate-Vitamin D (CALCIUM + D PO) * gabapentin (NEURONTIN) 300 MG capsule Take 300 mg by mouth 3 times daily * Multiple Vitamins-Minerals (MULTI COMPLETE PO) * ofloxacin (OCUFLOX) 0.3 % ophthalmic solution(Started 06/29/2017) 2 gtts to left eye every 2-4 hours x 2 days then QID x5 days Social History Tobacco Use Types Packs/Day Years Used Date Smoking Tobacco: Former Smokeless Tobacco: Never Alcohol Use Standard Drinks/Week Comments No 0 (1 standard drink = 0.6 oz pur e alcohol) Sex and Gender Information Value Date Recorded Sex Assigned at Not on file Gender Identity Not on file Sexual Orientation Not on file Last Filed Vital Signs Vital Sign Reading Time Taken Comments Blood Pressure 120/58 06/29/2017 3:47 PM CDT Pulse 76 06/29/2017 3:47 PM CDT Temperature 36.9 C (98.4 F) 06/29/2017 3:47 PM CDT Respiratory Rate 16 06/29/2017 3:47 PM CDT Oxygen Saturation 95% 06/29/2017 3:47 PM CDT Inhaled Oxygen Concentration - - Weight 86.2 kg (190 lb) 06/29/2017 3:47 PM CDT Height 161.3 cm (5' 3.5 ) 06/29/2017 3:47 PM CDT Body Mass Index 33.13 06/29/2017 3:47 PM CDT Procedures * DERMATOPATHOLOGY(Performed 08/12/2023) * DERMATOPATHOLOGY(Performed 07/03/2022) * DERMATOPATHOLOGY(Performed 12/01/2020) * DERMATOPATHOLOGY(Performed 06/10/2020) * CT ANGIO BRAIN(Performed 06/19/2012) * CREATININE BLOOD - POCT (IP) [facility](Performed 02/18/1998) Results * DERMATOPATHOLOGY (08/12/2023 11:17 AM CDT) Only the most recent of4 resultswithin the time period is included. Case Report Dermatopathology Report Case: [id number] Authorizing Provider: Chikis Mendoza MD Collected: 08/12/2023 11:17 AM Ordering Location: [facility] - Received: 08/13/2023 01:05 PM DermPath Lab Pathologist: Kristel Crawford MD Specimen: Skin, left forehead 4 5:05 PM CDT DERMATOPATHOLOGY LABORATORY Final Diagnosis Specimen A. SKIN, left forehead: BASAL CELL CARCINOMA, NODULAR TYPE (C44.319) CALCINOSIS CUTIS (L94.2) 4 5:05 PM CDT DERMATOPATHOLOGY LABORATORY Clinical History R/O BCC; pearly papule 4 5:05 PM CDT DERMATOPATHOLOGY LABORATORY Gross Description Specimen A: Received is one formalin filled container labeled with the patient's name and designated left forehead. The specimen consists of a shave biopsy measuring 4x4x1 mm. Jar 0. 4 5:05 PM CDT DERMATOPATHOLOGY LABORATORY Microscopic Description Specimen A. SKIN, left forehead: Within the dermis there are aggregates of basaloid cells with a high nuclear to cytoplasmic ratio and peripheral palisading. Within the dermis, there are aggregates of homogenous amorphous basophilic material consistent with calcium. 4 5:05 PM CDT DERMATOPATHOLOGY LABORATORY Disclaimer An external and internal positive and negative controls are appropriate for the histochemical, immunohistochemical and immunofluorescence stain(s) in this case (if any), except where stated explicitly. The performance characteristics of the stain(s) cited in this report were developed and its performance characteristic determined by the Dermatopathology Laboratory at [facility], directed by Dr. Leslye Thomas. These tests need not be, and therefore are not, approved by the [place] Food and Drug Administration. The tests are used for clinical purposes. Billing Codes Specimen Charges Stain Charges 32755 1 4 5:05 PM CDT DERMATOPATHOLOGY LABORATORY Embedded Images 4 5:05 PM CDT DERMATOPATHOLOGY LABORATORY Pathology/Cytolo gy TISSUE SPECIMEN FROM SKIN / Unknown 08/12/2023 11:17 AM CDT 08/13/2023 1:05 PM CDT Chikis Mendoza MD LAB - PATHOLOGY/CYTO LOGY ORDERABLES DERMATOPATHOLOGY LABORATORY [facility] - Department of Dermatology [address], [address] [phone] * CT ANGIO BRAIN (06/19/2012 7:44 AM CDT) Anatomical Region Laterality Modality Head Other Impressions 06/19/2012 11:17 AM CDT IMPRESSION: 1. 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 This report was approved by Dorie Neal M.D. on 06/19/2012 10:16 AM . I, Dr. MARITZA ANDRADE M.D. have personally reviewed and interpreted this examination/study. This report was electronically signed by MARITZA ANDRADE M.D. on 06/19/2012 11:17 AM . Narrative 06/19/2012 11:17 AM CDT EXAMINATION: 1. Computed tomography (CT) of the head without and with contrast HISTORY: Aneurysm. TECHNIQUE: CT of the head was performed without contrast according to standard protocol. Then CT angiography of the head was obtained after the uneventful administration of 50 mL Omnipaque 350 intravenous contrast. Three dimensional postprocessing was performed by the technologist and sent to the workstation for review. FINDINGS: Comparison is made to prior study dated 06/14/2011. Head and neck: No acute intra- or extra-axial fluid collections are identified. The ventricles are of normal size, shape, and morphology. There are mild periventricular white matter changes most consistent with sequela of ischemic small vessel disease. There is mild cerebral atrophy. The basal cisterns are patent. No mass effect or midline shift is seen. The cota-white matter differentiation is normal. The visualized portions of the orbits, paranasal sinuses, and mastoids appear normal. No soft tissue abnormality is identified. Angiographic and perfusion findings: There are atherosclerotic calcifications in the cavernous segment and supraclinoid segments of bilateral internal carotid arteries. There is unchanged aneurysmal dilatation of the cavernous segments of the bilateral internal carotid arteries. There is a 1 mm saccular outpouching/aneurysm originating from the lateral aspect of the left cavernous internal carotid artery. This is unchanged since the prior exam. The anterior and middle cerebral arteries appear normal. origin of left posterior cerebral artery originating from the left posterior communicating artery is identified. The distal vertebral arteries as well as the basilar artery and posterior cerebral arteries otherwise appear normal. No intracranial stenoses are identified. Procedure Note Maritza Andrade MD - 05/19/2017 EXAMINATION: 1. Computed tomography (CT) of the head without and with contrast HISTORY: Aneurysm. TECHNIQUE: CT of the head was performed without contrast according tostandard protocol. Then CT angiography of the head was obtained after theuneventful administration of 50 mL Omnipaque 350 intravenous contrast.Three dimensional postprocessing was performed by the technologist and sent to the workstation for review. FINDINGS: Comparison is made to prior study dated 06/14/2011. Head and neck: No acute intra- or extra-axial fluid collections are identified. Theventricles are of normal size, shape, and morphology. There are mildperiventricular white matter changes most consistent with sequela ofischemic small vessel disease. There is mild cerebral atrophy. The basal cisterns are patent. No mass effect or midlineshift is seen. The cota-white matter differentiation is normal. Thevisualized portions of the orbits, paranasal sinuses, and mastoids appearnormal. No soft tissue abnormality is identified. Angiographic and perfusion findings: There are atherosclerotic calcifications in the cavernous segment andsupraclinoid segments of bilateral internal carotid arteries. There isunchanged aneurysmal dilatation of the cavernous segments of the bilateralinternal carotid arteries. There is a 1 mm saccular outpouching/aneurysm originating from the lateral aspect ofthe left cavernous internal carotid artery. This is unchanged since theprior exam. The anterior and middle cerebral arteries appear normal. Fetalorigin of left posterior cerebral artery originating from the left posterior communicating artery isidentified. The distal vertebral arteries as well as the basilar arteryand posterior cerebral arteries otherwise appear normal. No intracranialstenoses are identified. IMPRESSION IMPRESSION: 1. Unchanged aneurysmal dilatation of the cavernous segments of bilateralinternal carotid arteries with a stable 1 mm saccular aneurysm originatingfrom the left cavernous internal carotid artery. This report was approved by Dorie Neal M.D. on 06/19/2012 10:16 AM . I, Dr. MARITZA ANDRADE M.D. have personally reviewed and interpreted thisexamination/study. This report was electronically signed by MARITZA ANDRADE M.D. on 06/19/201211:17 AM . Historical Provider [address] ORDERABLES * CREATININE BLOOD - POCT (IP) 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 Care Teams Slicer Machine Operator Relationship Specialty Start Date End Date Brandon Roberts MD [address] [place] [phone] PCP - General 11/12/08
--- OUTSIDE RECORDS SUMMARY | 2024-03-26 19:44 | XMS_ITS | Encounter Summary ---
Author Organization [facility] Address [address] [place] [address] Care Team Providers Care Cytotechnologist/Cytology Supervisor Name Role Phone Oscar Carroll MD Unavailable + Oleg Marrero MD Unavailable [phone] Paulina Houser NP Primary Care Provider [phone] Encounter Details Date Type Department Care Team (Latest Contact Info) Description 03/26/2024 Anticoagulation Visit [facility] Cardiology [address] [place] [id number] Teresa Snowden RN Atrial fibrillation, unspecified type (HCC) (Primary Dx) Social History Tobacco Use Types Packs/Day Years [...] on file Legal Sex Female 12:02 PM [employer] Gender Identity Female 10/28/2019 5:35 PM CDT Sexual Orientation Straight 10/28/2019 5: 35 PM CDT documented as of this encounter Plan of Treatment Not on file documented as of this encounter Visit Diagnoses Diagnosis Atrial fibrillation, unspecified type (HCC)- Primary documented in this encounter Care Teams Cytotechnologist/Cytology Supervisor Relationship Specialty Start Date End Date Paulina Houser NP [address] [place] [address] PCP - General Family Medicine 03/05/24 Oscar Carroll MD [address] [place] [address] [employer] Teacher Gastroenterology 09/03/19 Oleg Marrero MD [address] [place] [address] Surgeon Colon and Rectal Surgery 10/13/19 documented as of this encounter
--- OUTSIDE RECORDS SUMMARY | 2024-03-26 19:44 | XMS_ITS | Clinical Summary ---
Author Organization [facility] Address [address] [place] [address] Care Team Providers Care Sheet Finisher Name Role Phone Brandon Roberts MD Primary Care Provider [phone] Source Comments [facility],non-owned Affiliates and Associated Physician Practices is amultiple site organization consisting of ambulatory clinics and hospital sitesin [place], [place], [place] and [place]. This disclosure is being madepursuant to the Care Everywhere program and may not contain all information available regarding this patient. Last updated 17.[facility] Allergies No known active allergies Medications * Be aware that medications may not be up to date on this document. Alwaysverify current medications with the patient. Medication Sig Dispensed Refills Start Date End Date Status ASPIRIN 81 PO Active amLODIPine (NORVASC) 5 MG tablet Take 5 mg by mouth once daily Active Calcium Citrate-Vitamin D (CALCIUM + D PO) Active gabapentin (NEURONTIN) 300 MG capsule Take 300 mg by mouth 3 times daily Active Multiple Vitamins-Minerals (MULTI COMPLETE PO) Activ e ofloxacin (OCUFLOX) 0.3 % ophthalmic solution 2 gtts to left eye every 2-4 hours x 2 days then QID x5 days 1 bottles 06/29/2017 Active Social History Tobacco Use Types Packs/Day Years [...] Mass Index 33.13 06/29/2017 3:47 PM CDT Plan of Treatment Health Maintenance Due Date Last Done Comments BONE DENSITY TESTING 1935 DTAP/TDAP/TD VACCINES (1 - Tdap) 1956 PNEUMOCOCCAL VACCINE 50+ (1 of 1 - PCV) 10/01/1987 ZOSTER VACCINE (1 of 2) 10/01/1987 Respiratory Syncytial Virus (RSV) Vaccine Pt: or over 60 yrs (1 - 1-dose 75+ series) 2012 COVID-19 VACCINE ( - 2023-2 5 season) 2023 INFLUENZA VACCINE (#1) 2023 DEPRESSION SCREENING 02/19/2024 MEDICARE AWV CALENDAR YEAR 2024 HEPATITIS B VACCINE Aged Out No longe r eligible based on patient's age to complete this topic HIB VACCINE Aged Out No longer eligi ble based on patient's age to complete this topic HPV VACCINE Aged Out No longer eligi ble based on patient's age to complete this topic MENINGOCOCCAL (Group B) VACCINE Aged Out No longer eligible based on patient's age to complete this topic MENINGOCOCCAL VACCINE Aged Out No page teressa eligible based on patient's age to complete this topic Care Teams Sheet Finisher Relationship Specialty Start Date End Date Brandon Roberts MD [address] [place] [address] PCP - General 11/12/08
--- OUTSIDE RECORDS SUMMARY | 2024-03-26 19:44 | XMS_ITS | Referral Summary ---
Author Organization [facility] [employer] Address [address] [place] [address] Care Team Providers Care Manager E Learning Name Role Phone Brandon Roberts MD Primary Care Provider [phone] Source Comments [facility],non-owned Affiliates and Associated Physician Practices is amultiple site organization consisting of ambulatory clinics and hospital sitesin [place], [place], [place] and [place]. This disclosure is being madepursuant to the Care Everywhere program and may not contain all information available regarding this patient. Last updated 17.[facility] Allergies No known active allergies Medications * [...] 06/29/2017 3:47 PM CDT Plan of Treatment Not on file Care Teams Manager E Learning Relationship Specialty Start Date End Date Brandon Roberts MD [address] [place] [address] PCP - General 11/12/08
--- OUTSIDE RECORDS SUMMARY | 2024-03-26 19:45 | XMS_ITS | Clinical Summary ---
Author Organization [facility] Address [address] [place] [address] Care Team Providers Care Organic Section Technical Lead Name Role Phone Oscar Carroll MD Unavailable + Oleg Marrero MD Unavailable Paulina Houser NP Primary Care Provider [phone] Allergies No known active allergies Medications amLODIPine (NORVASC) 5 mg tablet Take 1 tablet (5 mg total) by mouth every morning Active calcium carbonate-vitam in D3 1500 mg (600 mg elemental) -200 units per tablet Take 1 tablet by mouth every morning Active omega-3 fatty acids-fish oil 684-1,200 mg capsule,delayed release(DR/EC) Take 2 tablets by mouth every morning Active levothyroxine (SYNTHROID, LEVOTHROID) 75 mcg tablet Take 1 tablet (75 mcg total) by mouth sugar cane planter before breakfast 0 11/29/19 18 Active dupilumab (DUPIXENT) 300 mg/2 mL syringe Inject 2 mL (300 mg total) under the skin every 14 (fourteen) days. 4 Syringe 5 02/26/19 19 Active ibuprofen (ADVIL,MOTRIN) 600 mg tabletIndicatio ns:Pain,Postope rative Acute Pain Take 1 tablet (600 mg total) by mouth every 8 (eight) hours 30 tablet 09/26/19 20 Active ascorbic acid (VITAMIN C) 1,000 mg tablet Take 1 tablet (1,000 mg total) by mouth daily Active cholecalciferol (VITAMIN D-3) 5,000 unit capsule Take 1 capsule (5,000 Units total) by mouth daily Active albuterol HFA (PROVENTIL HFA,VENTOLIN HFA,PROAIR HFA) 90 mcg/actuation inhaler Inhale 1 puff as needed 01/19/20 24 Active busPIRone (BUSPAR) 5 mg tablet Take 1 tablet (5 mg total) by mouth 2 (two) times a day 03/02/19 25 Active Wixela Inhub 100-50 mcg/dose diskus inhaler INHALE 1 PUFF BY MOUTH EVERY 12 HOURS 01/20/20 24 Active amiodarone (PACERONE) 200 mg tabletIndicatio ns:Ventricular Rate Control in Atrial Fibrillation Take 2 tablets (400 mg total) by mouth 2 (two) times a day for 7 days, THEN 2 tablets (400 mg total) daily for 7 days, THEN 1 tablet (200 mg total) daily. 402 tablet 03/05/19 25 026 Active potassium chloride ER 20 mEq CR tablet Take 2 tablets (40 mEq total) by mouth daily 60 tablet 4 03/12/19 25 Active atorvastatin (LIPITOR) 40 mg tablet TAKE 1 TABLET(40 MG) BY MOUTH DAILY 90 tablet 3 03/19/19 25 Active metoprolol XL (TOPROL-XL) 50 mg extended release tablet TAKE 1 TABLET(50 MG) BY MOUTH DAILY 90 tablet 3 03/19/19 25 Active furosemide (LASIX) 40 mg tablet TAKE 1 TABLET(40 MG) BY MOUTH DAILY 90 tablet 3 03/19/19 25 Active warfarin (COUMADIN) 2 mg tabletIndicatio ns:atrial fibrillation Take 2 tablets (4 mg total) by mouth daily Take as directed, dose may change after blood test 60 tablet 11 03/26/19 25 Active aspirin 81 mg tablet Take 1 tablet (81 mg total) by mouth every morning 025 Discontinued(O ther) WIXELA INHUB 250-50 mcg/dose diskus inhaler Inhale 1 puff daily as needed Pt does not take regularly 5 12/13/19 19 025 Discontinued azelastine (ASTELIN) 137 mcg (0.1 %) nasal spray Administer 2 sprays into each nostril 2 (two) times a day 12/07/19 21 025 Discontinued(T herapy completed) sodium, potassium & mag sulfates (SUPREP BOWEL KIT) 17.5-3.13-1.6 gram recon solnIndications :Bowel Evacuation Drink first half of prep at 6:00pm the night before procedure. Drink second half of prep 4 hours prior to leaving home for procedure. 354 mL 06/06/19 025 Discontinued(T herapy completed) metoprolol XL (TOPROL-XL) 50 mg extended release tablet Take 1 tablet (50 mg total) by mouth daily 30 tablet 02/19/19 25 025 Discontinued furosemide (LASIX) 40 mg tablet Take 1 tablet (40 mg total) by mouth daily 30 tablet 02/19/19 25 025 Discontinued atorvastatin (LIPITOR) 40 mg tablet Take 1 tablet (40 mg total) by mouth daily 30 tablet 02/19/19 25 025 Discontinued apixaban (ELIQUIS) 5 mg tablet Take 1 tablet (5 mg total) by mouth 2 (two) times a day 60 tablet 02/19/19 25 025 Discontinued(R eorder) potassium chloride ER 20 mEq CR tablet Take 2 tablets (40 mEq total) by mouth daily 01/30/20 24 025 Discontinued(R eorder) apixaban (ELIQUIS) 5 mg tablet Take 1 tablet (5 mg total) by mouth 2 (two) times a day 180 tablet 4 03/05/19 25 025 Discontinued(A lternate therapy) Active Problems Problem Noted Date Diagnosed Date Atrial fibrillation (CMS/HCC) 03/26/2024 Screening for malignant neoplasm of colon 2020 Overview (07/20/2020): Added automatically from request for surgery [id number] History of colon cancer 10/29/2019 Clostridium difficile infection 10/07/2019 Acute postoperative abdominal pain 09/23/2019 Malignant neoplasm of hepatic flexure (CMS/HCC) 09/09/2019 Overview (09/09/2019): Added automatically from request for surgery [id number] Malignant neoplasm of transverse colon (CMS/HCC) 09/08/2019 Other atopic dermatitis 02/26/2018 Pruritus, unspecified 02/26/2018 Venous barkley of lip 02/26/2018 Encounters Date Type Department Care Team Description 03/26/2024 10:30 AM VALIDATION ARCHITECT Office Visit [place] [address] [place] [phone] Tequila Garza NP Persistent atrial fibrillation (HCC) (Primary Dx); Encounter for anticoagulation discussion and counseling; On amiodarone therapy; MARC (obstructive sleep apnea); Chronic obstructive pulmonary disease, unspecified COPD type (HCC); Edema, lower extremity 03/26/2024 Anticoagulation Visit [address] [phone] Teresa Snowden RN Atrial fibrillation, unspecified type (HCC) (Primary Dx) 03/26/[address] [phone] Tequila Garza NP 03/11/[address] [phone] Caridad Self MD Med Refill 03/05/2024 10:00 AM VALIDATION ARCHITECT Office Visit [address] [phone] Tequila Garza NP Persistent atrial fibrillation with rapid ventricular response (CMS/HCC) (HCC) (Primary Dx); Chronic anticoagulation; History of cardioversion; MARC (obstructive sleep apnea); Chronic obstructive pulmonary disease, unspecified COPD type (HCC); Hospital discharge follow-up 03/05/2024 Orders Only [address] [phone] Tequila Garza NP Persistent atrial fibrillation with rapid ventricular response (CMS/HCC) (HCC) 02/20/[address] [place] [phone] Tequila Garza NP Medication Problem 02/20/2024 Orders Only [facility] Cardiology [address] [place] [address] [place] [phone] Teresa Tadeo MA 02/20/2024 Telephone [place] [address] [place] [phone] Tequila Garza NP Med Refill 02/18/2024 Orders Only [place] [address] [place] [phone] Oxana Fragoso NP 01/30/2024 Orders Only [place] [address] [place] [phone] Oxana Fragoso NP 01/23/2024 Orders Only [place] [address] [place] [phone] Oxana Fragoso NP from Last 3 Months Immunizations Name Administration Dates Next Due Pneumococcal Conjugate PCV 13 12/02/2017 Surgical History Surgery Date Site/Laterality Comments DC LIGJ DIVJ &/EXCJ VARICOSE VEIN CLUSTER 1 LEG Varicose Vein Ligation - (Added by Conv) DC TONSILLECTOMY PRIMARY/SECONDARY <AGE 14 Tonsillectomy - (Added by Conv) ABDOMINAL SURGERY 09/23/2019 Right hemicolectomy Medical History Medical History Date Comments Pruritus Chronic pruritus - (Added by TW Conv) COPD (chronic obstructive pu lmonary disease) (HCC) Sleep apnea Thyroid disease Arthritis Malignant neoplasm of skin Skin cancer - (Added by TW Conv) Basal cell carcinoma of skin of face Basal cell carcinoma of skin of face - (Added by TW Conv) Basal cell carcinoma of skin of scalp and neck Basal cell carcinoma of scal p - (Added by TW Conv) Colon cancer (CMS/HCC) (HCC) 08/19 020 Hypertension Family History Medical History Relation Name Comments Brain cancer Mother Brain tumor - ( Added by TW Conv) Breast cancer Mother Family history of malignant neoplasm of breast - (Added by TW Conv) Cancer Other Family history of malignant neoplasm - (Added by TW Conv) Dementia Sister Family history of dementia - (Added by TW Conv) Colon polyps Son Colon cancer Neg Hx Relation Name Status Comments Mother Other Sister Son Social History Tobacco Use Types Packs/Day Years Used Date Smoking Tobacco: Former Cigarettes 1 67.1 S tarted: 1957 Smokeless Tobacco: Never Tobacco Cessation:Counseling Given: Not Answered Comments:says she quit 2 years ago but cheats [...] on file Legal Sex Female 12:02 PM VALIDATION ARCHITECT Gender Identity Female 10/28/2019 5:35 PM CDT Sexual Orientation Straight 10/28/2019 5: 35 PM CDT Obstetrics History Last Filed Vital Signs Vital Sign Reading Time Taken Comments Blood Pressure 110/62 03/26/2024 10:38 AM VALIDATION ARCHITECT Pulse 95 03/26/2024 10:38 AM VALIDATION ARCHITECT Temperature 37.1 C (98.7 F) 09/10/2023 10:46 AM CDT Respiratory Rate 25 10/18/2022 12:00 PM CDT Oxygen Saturation 96% 03/26/2024 10:38 AM VALIDATION ARCHITECT Inhaled Oxygen Concentration - - Weight 93 kg (205 lb) 03/26/2024 10:38 AM VALIDATION ARCHITECT Height 160 cm (5' 3 ) 03/26/2024 10:38 AM VALIDATION ARCHITECT Body Mass Index 36.31 03/26/2024 10:38 AM VALIDATION ARCHITECT Plan of Treatment Health Maintenance Due Date Last Done Comments Depression Screening 1935 DTaP/Tdap/Td Vaccine (1 - Tdap) 1948 Hepatitis B Screening 10/01/1955 Zoster Vaccine (1 of 2) 10/01/1987 Well Visit 65+ 2002 Pneumococcal vaccine 65+ (2 of 2 - PPSV23 or PCV20) 12/02/2017 Fall Risk Assessment 10/19/2023 10/18/2022 Influenza Vaccine (#1) 2023 Procedures Procedure Name Priority Date/Time Associated Diagnosis Comments ECG 12-LEAD Routine 03/26/2024 4:15 PM VALIDATION ARCHITECT ECG 12-LEAD Routine 03/05/2024 Persistent atrial fibrillation with rapid ventricular response (CMS/HCC) (HCC) CARDIOLOGY DOCUMENT SCAN Routine 01/24/2024 9:55 AM VALIDATION ARCHITECT CARDIOLOGY DOCUMENT SCAN Routine 01/23/2024 3:36 PM VALIDATION ARCHITECT CARDIOLOGY DOCUMENT SCAN Routine 01/22/2024 3:51 PM VALIDATION ARCHITECT CARDIOLOGY DOCUMENT SCAN Routine 01/21/2024 3:49 PM VALIDATION ARCHITECT from Last 3 Months Results * ECG 12 lead (03/26/2024 4:15 PM VALIDATION ARCHITECT) Result [facility] Tequila Garza NP ECG ORDERABLES Final Res ult * ECG 12 lead (03/05/2024) 03/05/2024 Tequila Garza NP ECG ORDERABLES Edited Re sult - Final * Cardiology Document Scan (01/24/2024 9:55 AM VALIDATION ARCHITECT) Anatomical Region Laterality Modality Other Oxana Fragoso NP CV CARDIAC SERVICES PROCEDUR ES Final Result * Cardiology Document Scan (01/23/2024 3:36 PM VALIDATION ARCHITECT) Anatomical Region Laterality Modality Other Oxana Fragoso NP CV CARDIAC SERVICES PROCEDUR ES Final Result * Cardiology Document Scan (01/22/2024 3:51 PM VALIDATION ARCHITECT) Anatomical Region Laterality Modality Other Oleg Bowles MD CV CARDIAC SERVICES PROCE DURES Final Result * Cardiology Document Scan (01/21/2024 3:49 PM VALIDATION ARCHITECT) Anatomical Region Laterality Modality Other Oxana Fragoso NP CV CARDIAC SERVICES PROCEDUR ES Final Result from Last 3 Months Insurance MED[employer]ARE [employer] MED[employer]ARE SOLUTIONS Advance Directives For more information, please contact: [phone] * Full Code (Latest Code Status on File) Date Activated Date Inactivated Comments 10/18/2022 10:01 AM 10/18/2022 5:02 PM * Full Code Date Activated Date Inactivated Comments 09/22/2020 9:09 AM 09/22/2020 3:18 PM * Full Code Date Activated Date Inactivated Comments 10/04/2019 12:16 PM 10/07/2019 2:55 PM * Full Code Date Activated Date Inactivated Comments 09/23/2019 9:20 PM 09/26/2019 7:14 PM Healthcare Agents on File Name Relationship Healthcare Agent Yawhi p Communication Dafne Manzo Daughter Health Care Agent Care Teams Organic Section Technical Lead Relationship Specialty Start Date End Date Paulina Houser NP [address] [place] [address] PCP - General Family Medicine 03/05/24 Oscar Carroll MD [address] [place] [address] [facility] Gastroenterology 09/03/19 Oleg Marrero MD [address] [place] [address] Surgeon Colon and Rectal Surgery 10/13/19
--- OUTSIDE RECORDS SUMMARY | 2024-03-26 19:45 | XMS_ITS | Encounter Summary ---
Author Organization [facility] Address [address] [place] [address] Care Team Providers Care Bulk Fluids Handler Name Role Phone Brandon Roberts MD Primary Care Provider [phone] Encounter Details Date Type Department Care Team (Late st Contact Info) Description 08/12/2023 Lab Requisition [facility] - DermPath Lab [address] [facility], [place] [address] Chikis Mendoza MD [address] [facility] [address] [place] [address] Social History Tobacco Use Types Packs/Day Years Used Date Smoking Tobacco: Former Smokeless Tobacco: Never Alcohol Use Standard Drinks/Week Comments No 0 (1 standard drink = 0.6 oz pur e alcohol) Sex and Gender Information Value Date Recorded Sex Assigned at Not on file Gender Identity Not on file Sexual Orientation Not on file documented as of this encounter Plan of Treatment Not on file documented as of this encounter Procedures Procedure Name Priority Date/Time Associated Diagnosis Comments DERMATOPATHOLOGY Routine 08/12/2023 11:1 7 AM CDT documented in this encounter Results * DERMATOPATHOLOGY (08/12/2023 11:17 AM CDT) Case Report Dermatopathology Report Case: [id number] Authorizing Provider: Chikis Mendoza MD Collected: 08/12/2023 11:17 AM Ordering Location: [facility] - Received: 08/13/2023 01:05 PM DermPath Lab Pathologist: Kristel Crawford MD Specimen: Skin, left forehead 5:05 PM CDT DERMATOPATHOLOGY LABORATORY Final Diagnosis Specimen A. SKIN, left forehead: BASAL CELL CARCINOMA, NODULAR TYPE (C44.319) CALCINOSIS CUTIS (L94.2) 5:05 PM CDT DERMATOPATHOLOGY LABORATORY Clinical History R/O BCC; pearly papule 5:05 PM CDT DERMATOPATHOLOGY LABORATORY Gross Description Specimen A: Received is one formalin filled container labeled with the patient's name and designated left forehead. The specimen consists of a shave biopsy measuring 4x4x1 mm. Jar 0. 5:05 PM CDT DERMATOPATHOLOGY LABORATORY Microscopic Description Specimen A. SKIN, left forehead: Within the dermis there are aggregates of basaloid cells with a high nuclear to cytoplasmic ratio and peripheral palisading. Within the dermis, there are aggregates of homogenous amorphous basophilic material consistent with calcium. 5:05 PM CDT DERMATOPATHOLOGY LABORATORY Disclaimer An external and internal positive and negative controls are appropriate for the histochemical, immunohistochemical and immunofluorescence stain(s) in this case (if any), except where stated explicitly. The performance characteristics of the stain(s) cited in this report were developed and its performance characteristic determined by the Dermatopathology Laboratory at [facility], directed by Dr. Leslye Thomas. These tests need not be, and therefore are not, approved by the [place] Food and Drug Administration. The tests are used for clinical purposes. Billing Codes Specimen Charges Stain Charges 67353 1 5:05 PM CDT DERMATOPATHOLOGY LABORATORY Embedded Images 5:05 PM CDT DERMATOPATHOLOGY LABORATORY Pathology/Cytolo gy TISSUE SPECIMEN FROM SKIN / Unknown 08/12/2023 11:17 AM CDT 08/13/2023 1:05 PM CDT Chikis Mendoza MD LAB - PATHOLOGY/CYTO LOGY ORDERABLES DERMATOPATHOLOGY LABORATORY [facility] - Department of Dermatology [facility] Medicine [address] [place] [address], [address] [phone] documented in this encounter Visit Diagnoses Not on filedocumented in this encounter Care Teams Bulk Fluids Handler Relationship Specialty [place] [address] [place] [phone] PCP - General 11/12/08 documented as of this encounter
--- OUTSIDE RECORDS SUMMARY | 2024-03-26 19:45 | XMS_ITS | Encounter Summary ---
Author Organization [facility] Address [address] [place] [address] Care Team Providers Care Classification Counselor Name Role Phone Brandon Roberts MD Primary Care Provider [phone] Encounter Details Date Type Department Care Team (Late st Contact Info) Description 07/03/2022 Lab Requisition [facility] - DermPath Lab [address] [facility] [place] [address] Chikis Mendoza MD [address] [facility] [address] [place] [address] Social History Tobacco Use Types Packs/Day Years [...] Priority Date/Time Associated Diagnosis Comments DERMATOPATHOLOGY Routine 07/03/2022 11:3 5 AM CDT documented in this encounter Results * DERMATOPATHOLOGY (07/03/2022 11:35 AM CDT) Case Report Dermatopathology Report Case: [id number] Authorizing Provider: Chikis Mendoza MD Collected: 07/03/2022 11:35 AM Ordering Location: [facility] DermPath Lab Received: 07/03/2022 04:44 PM Pathologist: Skyla Kim MD Specimen: Skin, mid back 12:54 PM CDT DERMATOPATHOLOGY LABORATORY Final Diagnosis Specimen A. SKIN, mid back: EPIDERMOID CYST (L72.0) 12:54 PM T DERMATOPATHOLOGY LABORATORY Clinical History R/O CYST 12:54 PM CDT DERMATOPATHOLOGY LABORATORY Gross Description Specimen A: Received is one formalin filled container labeled with the patient's name and designated mid back. The specimen consists of a non-oriented ellipse of skin measuring [id number] mm. The epidermal surface is unremarkable. The margin is inked green. The 12 o'clock and 6 o'clock tips are submitted in cassette 1. The remainder of the ellipse is serially sectioned and submitted in cassette 2-6. Jar 0. 12:54 PM CDT DERMATOPATHOLOGY LABORATORY Microscopic Description Specimen A. SKIN, mid back: Within the dermis, there is a space lined by epithelium that resembles normal epidermis and the infundibular portion of the hair follicle. 12:54 PM T DERMATOPATHOLOGY LABORATORY Disclaimer An external and internal positive and negative controls are appropriate for the histochemical, immunohistochemical and immunofluorescence stain(s) in this case (if any), except where stated explicitly. The performance characteristics of the stain(s) cited in this report were developed and its performance characteristic determined by the Dermatopathology Laboratory at [facility], directed by Dr. Leslye Thomas. These tests need not be, and therefore are not, approved by the [place] Food and Drug Administration. The tests are used for clinical purposes. Billing Codes Specimen Charges Stain Charges 02877 1 12:54 PM CDT DERMATOPATHOLOGY LABORATORY Embedded Images 12:54 PM CDT DERMATOPATHOLOGY LABORATORY Pathology/Cytolo gy TISSUE SPECIMEN FROM SKIN / Unknown 07/03/2022 11:35 AM CDT 07/03/2022 4:44 PM CDT Chikis Mendoza MD LAB - PATHOLOGY/CYTO LOGY ORDERABLES DERMATOPATHOLOGY LABORATORY [facility] - Department of Dermatology [address], [address] [phone] documented in this encounter Visit Diagnoses Not on filedocumented in this encounter Care Teams Classification Counselor Relationship Specialty [place] [address] [place] [phone] PCP - General 11/12/08 documented as of this encounter
--- OUTSIDE RECORDS SUMMARY | 2024-03-26 19:45 | XMS_ITS | Referral Summary ---
Author Organization [facility] Address [address] [place] [address] Care Team Providers Care Supervisor Maintenance Name Role Phone Oscar Carroll MD Unavailable + Oleg Marrero MD Unavailable [phone] Paulina Houser NP Primary Care Provider [phone] Encounters Date Type Department Care Team Description 03/26/2024 Anticoagulation Visit [facility] [address] [place] [phone] Teresa Snowden RN Atrial fibrillation, unspecified type (HCC) (Primary Dx) 03/26/2024 Telephone [facility] [address] [place] [phone] Tequila Garza NP 03/26/2024 10:30 AM EXAMINER OF CURRENCY Office Visit [facility] 10 [facility] [address] [place] [phone] Tequila Garza NP Persistent atrial fibrillation (HCC) (Primary Dx); Encounter for anticoagulation discussion and counseling; On amiodarone therapy; MARC (obstructive sleep apnea); Chronic obstructive pulmonary disease, unspecified COPD type (HCC); Edema, lower extremity 03/11/2024 Telephone [facility] [address] [place] [address] [place] [phone] Caridad Self MD Med Refill 03/05/2024 Orders Only [place] [address] [place] [phone] Tequila Garza NP Persistent atrial fibrillation with rapid ventricular response (CMS/HCC) (HCC) 03/05/2024 10:00 AM EXAMINER OF CURRENCY Office Visit [place] [address] [place] [phone] Tequila Garza NP Persistent atrial fibrillation with rapid ventricular response (CMS/HCC) ([facility]) (Primary Dx); Chronic anticoagulation; History of cardioversion; MARC (obstructive sleep apnea); Chronic obstructive pulmonary disease, unspecified COPD type ([facility]); Hospital discharge follow-up 02/20/2024 Telephone [place] [address] [place] [phone] Tequila Garza NP Medication Problem 02/20/2024 Orders Only [place] [address] [place] [phone] Teresa Tadeo MA 02/20/2024 Telephone [place] [address] [place] [phone] Tequila Garza NP Med Refill 02/18/2024 Orders Only [place] [address] [place] [phone] Oxana Fragoso NP 01/30/2024 Orders Only [place] [address] [place] [phone] Oxana Fragoso NP 01/23/2024 Orders Only [place] [address] [place] [phone] Oxana Fragoso NP from Last 3 Months Allergies No known active allergies Medications amLODIPine [...] 1 tablet (75 mcg total) by mouth vacuum pan tender before breakfast 0 11/29/19 18 Active dupilumab [...] nostril 2 (two) times a day 12/07/19 025 Discontinued(T herapy completed) sodium, potassium & mag sulfates (SUPREP BOWEL KIT) 17.5-3.13-1.6 gram recon solnIndications :Bowel Evacuation Drink first half of prep at 6:00pm the night before procedure. Drink second half of prep 4 hours prior to leaving home for procedure. 354 mL 06/06/19 23 025 Discontinued(T herapy completed) metoprolol XL (TOPROL-XL) [...] (two) times a day 60 tablet 02/19/19 025 Discontinued(R eorder) potassium chloride ER 20 [...] (07/20/2020): Added automatically from request for surgery [id number] History of colon cancer 10/29/2019 Clostridium difficile infection 10/07/2019 Acute postoperative abdominal pain 09/23/2019 Malignant neoplasm of hepatic flexure (CMS/HCC) 09/09/2019 Overview (09/09/2019): Added automatically from request for surgery [id number] Malignant neoplasm of transverse colon (CMS/HCC) 09/08/2019 Other atopic dermatitis 02/26/2018 Pruritus, unspecified 02/26/2018 Venous barkley of lip 02/26/2018 Immunizations Name Administration Dates Next Due Pneumococcal Conjugate PCV 13 12/02/2017 Social History Tobacco Use Types Packs/Day Years Used Date Smoking Tobacco: Former Cigarettes 1 67.1 S tarted: 8 Smokeless Tobacco: Never Tobacco Cessation:Counseling Given: Not [...] on file Legal Sex Female 12:02 PM EXAMINER OF CURRENCY Gender Identity Female 10/28/2019 5:35 PM CDT Sexual Orientation Straight 10/28/2019 5: 35 PM CDT Last Filed Vital Signs Vital Sign Reading Time Taken Comments Blood Pressure 110/62 03/26/2024 10:38 AM EXAMINER OF CURRENCY Pulse 95 03/26/2024 10:38 AM EXAMINER OF CURRENCY Temperature 37.1 C (98.7 F) 09/10/2023 10:46 AM CDT Respiratory Rate 25 10/18/2022 12:00 PM CDT Oxygen Saturation 96% 03/26/2024 10:38 AM EXAMINER OF CURRENCY Inhaled Oxygen Concentration - - Weight 93 kg (205 lb) 03/26/2024 10:38 AM EXAMINER OF CURRENCY Height 160 cm (5' 3 ) 03/26/2024 10:38 AM EXAMINER OF CURRENCY Body Mass Index 36.31 03/26/2024 10:38 AM EXAMINER OF CURRENCY Plan of Treatment Not on file Procedures Procedure Name Priority Date/Time Associated Diagnosis Comments ECG 12-LEAD Routine 03/26/2024 4:15 PM EXAMINER OF CURRENCY ECG 12-LEAD Routine 03/05/2024 Persistent atrial fibrillation with rapid ventricular response (CMS/HCC) (HCC) CARDIOLOGY DOCUMENT SCAN Routine 01/24/2024 9:55 AM EXAMINER OF CURRENCY CARDIOLOGY DOCUMENT SCAN Routine 01/23/2024 3:36 PM EXAMINER OF CURRENCY CARDIOLOGY DOCUMENT SCAN Routine 01/22/2024 3:51 PM EXAMINER OF CURRENCY CARDIOLOGY DOCUMENT SCAN Routine 01/21/2024 3:49 PM EXAMINER OF CURRENCY from Last 3 Months Results * ECG 12 lead (03/26/2024 4:15 PM EXAMINER OF CURRENCY) Tequila Garza NP ECG ORDERABLES Final Res ult * ECG 12 lead (03/05/2024) 03/05/2024 Tequila Garza NP ECG ORDERABLES Edited Re sult - Final * Cardiology Document Scan (01/24/2024 9:55 AM EXAMINER OF CURRENCY) Anatomical Region Laterality Modality Other Oxana Fragoso NP CV CARDIAC SERVICES PROCEDUR ES Final Result * Cardiology Document Scan (01/23/2024 3:36 PM EXAMINER OF CURRENCY) Anatomical Region Laterality Modality Other Oxana Fragoso NP CV CARDIAC SERVICES PROCEDUR ES Final Result * Cardiology Document Scan (01/22/2024 3:51 PM EXAMINER OF CURRENCY) Anatomical Region Laterality Modality Other Oleg Bowles MD CV CARDIAC SERVICES PROCE DURES Final Result * Cardiology Document Scan (01/21/2024 3:49 PM EXAMINER OF CURRENCY) Anatomical Region Laterality Modality Other Oxana Fragoso NP CV CARDIAC SERVICES PROCEDUR ES Final Result from Last 3 Months Insurance [employer] [facility] Address: [address] [address] MEDIC[facility] Address: [facility] [address] [place] [address] Advance Directives For more information, please contact: [phone] * Full Code (Latest Code Status on [...] Agents on File Name Relationship Healthcare Agent Relationshi p Communication Dafne Manzo Daughter Health Care Agent Care Teams Supervisor Maintenance Relationship Specialty Start Date End Date Paulina Houser NP [address] [place] [address] PCP - General Family Medicine 03/05/24 Oscar Carroll MD [address] [place] [address] Certified Family Mediator Gastroenterology 09/03/19 Oleg Marrero MD [address] [place] [address] Surgeon Colon and Rectal Surgery 10/13/19
--- NOTE | 2024-03-26 21:40 | PC.NURSE ---
Patient to CT scan on monitor and NRBM at 15L Patient alert and oriented
--- OUTSIDE RECORDS SUMMARY | 2024-03-26 21:45 | XMS_ITS | Continuity of Care Document ---
Author Organization [facility] Address [address] [place] [address] [address] [place] [address] Phone Care Team Providers Care Brush Machine Setter Name Role Phone Neelima London Unavailable Unavailable Procedures Procedure Date Eye Exam & Treatment Refraction Office/outpatient Visit, Est No Script Eye Exam Established Pt No Script Eye Exam Established Pt Advance Directives Directive Yes / No Effective Date File Name No Information Encounters Encounter Description Practice Location Reason(s) For Visit Diagnoses Date Provider Providers Copied on Encounter [facility], [address] [place] [address] [address], [place], [place], [id number], [place] tel:[phone] [facility] No Information 2-201 0 Lita Ortez. [address] [facility] [address], [place], [place], [facility], . tel:[phone] Office/outpat ient Visit, Est [facility], [address] [place] [address] [address], [place], [place], [id number], [place] tel:[phone] [facility] No Information Sep-0 9-200 9 Ev Barrow. [address] [facility] [address], [place], [place], [facility], . tel:[phone] [facility], [address] [place] [address] [address], [place], [place], [id number], [place] tel:[phone] [facility] No Information Sep-0 2-200 9 Ev Barrow. [address] [facility] [address], [place], [address], [place]. tel:[phone] [facility] Eye [facility], [address], [place], [place], [id number], [place] tel:[phone] [facility] No Information 8 Smita Chopra. [address] [facility], [place], [address], [place]. tel:[phone] Family History Family Member Type Diagnosis Age At Onset No Information Payers Payer name Insurance type Covered constitution party ID Natachamaxine lornaobinna(s) [employer] Vision Plan CI [id number] Social History Type Description Quantity Date Captured [...]
--- OUTSIDE RECORDS SUMMARY | 2024-03-26 21:45 | XMS_ITS | Referral Summary ---
Author Organization [facility] Address [address] [place] [address] Care Team Providers Care Heavy Truck Technician Name Role Phone Oscar Carroll MD Unavailable + Oleg Marrero MD Unavailable [phone] Paulina Houser NP Primary Care Provider [phone] Encounters Date Type Department Care Team Description 03/26/2024 Anticoagulation Visit [facility] [address] [place] [phone] Teresa Snowden RN Atrial fibrillation, unspecified type (HCC) (Primary Dx) 03/26/2024 Telephone [facility] [address] [place] [phone] Tequila Garza NP 03/26/2024 10:30 AM DIETETICS DIRECTOR Office Visit [facility] 10 [facility] [address] [place] [phone] Tequila Garza NP Persistent atrial fibrillation (HCC) (Primary Dx); Encounter for anticoagulation discussion and counseling; On amiodarone therapy; MARC (obstructive sleep apnea); Chronic obstructive pulmonary disease, unspecified COPD type (HCC); Edema, lower extremity 03/11/2024 Telephone [facility] [address] [place] [address] [place] [phone] Caridad Self MD Med Refill 03/05/2024 Orders Only [place] [address] [place] [phone] Tequila Garza NP Persistent atrial fibrillation with rapid ventricular response (CMS/HCC) (HCC) 03/05/2024 10:00 AM DIETETICS DIRECTOR Office Visit [place] [address] [place] [phone] Tequila Garza NP Persistent atrial fibrillation with rapid ventricular response (CMS/HCC) ([facility]) (Primary Dx); Chronic anticoagulation; History of cardioversion; MARC (obstructive sleep apnea); Chronic obstructive pulmonary disease, unspecified COPD type ([facility]); Hospital discharge follow-up 02/20/2024 Telephone [place] [address] [place] [phone] Tequila Garza NP Medication Problem 02/20/2024 Orders Only [place] [address] [place] [phone] Teresa Tadeo MA 02/20/2024 Telephone [place] [address] [place] [phone] Tequila Garza NP Med Refill 02/18/2024 Orders Only [place] [address] [place] [phone] Oxana Fragoso NP 01/30/2024 Orders Only [place] [address] [place] [phone] Oxana Fragoso NP 01/23/2024 Orders Only [place] [address] [place] [phone] Oxana Fragoso NP from Last 3 [...] 1 tablet (75 mcg total) by mouth inside contractor sales before breakfast 0 11/29/19 18 Active dupilumab [...] (07/20/2020): Added automatically from request for surgery [id number] History of colon cancer 10/29/2019 Clostridium difficile infection 10/07/2019 Acute postoperative abdominal pain 09/23/2019 Malignant neoplasm of hepatic flexure (CMS/HCC) 09/09/2019 Overview (09/09/2019): Added automatically from request for surgery [id number] Malignant neoplasm of transverse colon (CMS/HCC) 09/08/2019 [...] on file Legal Sex Female 12:02 PM DIETETICS DIRECTOR Gender Identity Female 10/28/2019 5:35 PM CDT Sexual Orientation Straight 10/28/2019 5: 35 PM CDT Last Filed Vital Signs Vital Sign Reading Time Taken Comments Blood Pressure 110/62 03/26/2024 10:38 AM DIETETICS DIRECTOR Pulse 95 03/26/2024 10:38 AM DIETETICS DIRECTOR Temperature 37.1 C (98.7 F) 09/10/2023 10:46 AM CDT Respiratory Rate 25 10/18/2022 12:00 PM CDT Oxygen Saturation 96% 03/26/2024 10:38 AM DIETETICS DIRECTOR Inhaled Oxygen Concentration - - Weight 93 kg (205 lb) 03/26/2024 10:38 AM DIETETICS DIRECTOR Height 160 cm (5' 3 ) 03/26/2024 10:38 AM DIETETICS DIRECTOR Body Mass Index 36.31 03/26/2024 10:38 AM DIETETICS DIRECTOR Plan of Treatment Not on file Procedures Procedure Name Priority Date/Time Associated Diagnosis Comments ECG 12-LEAD Routine 03/26/2024 4:15 PM DIETETICS DIRECTOR ECG 12-LEAD Routine 03/05/2024 Persistent atrial fibrillation with rapid ventricular response (CMS/HCC) (HCC) CARDIOLOGY DOCUMENT SCAN Routine 01/24/2024 9:55 AM DIETETICS DIRECTOR CARDIOLOGY DOCUMENT SCAN Routine 01/23/2024 3:36 PM DIETETICS DIRECTOR CARDIOLOGY DOCUMENT SCAN Routine 01/22/2024 3:51 PM DIETETICS DIRECTOR CARDIOLOGY DOCUMENT SCAN Routine 01/21/2024 3:49 PM DIETETICS DIRECTOR from Last 3 Months Results * ECG 12 lead (03/26/2024 4:15 PM DIETETICS DIRECTOR) Tequila Garza NP ECG ORDERABLES Final Res ult * ECG 12 lead (03/05/2024) 03/05/2024 Tequila Garza NP ECG ORDERABLES Edited Re sult - Final * Cardiology Document Scan (01/24/2024 9:55 AM DIETETICS DIRECTOR) Anatomical Region Laterality Modality Other Oxana Fragoso NP CV CARDIAC SERVICES PROCEDUR ES Final Result * Cardiology Document Scan (01/23/2024 3:36 PM DIETETICS DIRECTOR) Anatomical Region Laterality Modality Other Oxana Fragoso NP CV CARDIAC SERVICES PROCEDUR ES Final Result * Cardiology Document Scan (01/22/2024 3:51 PM DIETETICS DIRECTOR) Anatomical Region Laterality Modality Other Oleg Bowles MD CV CARDIAC SERVICES PROCE DURES Final Result * Cardiology Document Scan (01/21/2024 3:49 PM DIETETICS DIRECTOR) Anatomical Region Laterality Modality Other Oxana Fragoso NP CV CARDIAC SERVICES PROCEDUR ES Final Result from Last 3 Months Insurance [employer] Advance Directives For more information, please contact: [phone] * Full Code (Latest Code Status on [...] Manzo Daughter Health Care Agent Care Teams Heavy Truck Technician Relationship Specialty Start Date End Date Paulina Houser NP [address] [place] [address] PCP - General Family Medicine 03/05/24 Oscar Carroll MD [address] [place] [address] [facility] Gastroenterology 09/03/19 Oleg Marrero MD [address] [place] [address] Surgeon Colon and Rectal Surgery 10/13/19
--- OUTSIDE RECORDS SUMMARY | 2024-03-26 21:45 | XMS_ITS | Encounter Summary ---
Author Organization [facility] Healthcare Address [address] [place] [address] Care Team Providers Care Bee Robber Name Role Phone Oscar Carroll MD Unavailable + Oleg Marrero MD Unavailable [phone] Paulina Houser NP Primary Care Provider Reason for Referral * Cardiology (Routine) - Closed Specialty Diagnoses / Procedures Referred By Contcarolina t Referred To Contact Procedures ECG 12 lead Tequila Alegre NP [address] [address] Phone: tel: fax: Referral ID Status Reason Start Date Expiration Date Visits Re quested Visits Authorized [id number] Closed 03/26/2024 04/25/2025 1 1 CIPAL SOFTWARE ENGINEER Reason for Visit * Reason Comments Follow-up 3-4 Week follow up Encounter Details Date Type Department Care Team (Late st Contact Info) Description 03/26/2024 10:30 AM PRINCIPAL SOFTWARE ENGINEER Office Visit [facility] Medical Group Cardiology [address] [facility] [address] [phone] Tequila Alegre NP [address] [place] [address] Persistent atrial fibrillation (HCC) (Primary Dx); Encounter [...] on file Legal Sex Female 12:02 PM PRINCIPAL SOFTWARE ENGINEER Gender Identity Female 10/28/2019 5:35 PM CDT Sexual Orientation Straight 10/28/2019 5: 35 PM CDT documented as of this encounter Last Filed Vital Signs Vital Sign Reading Time Taken Comments Blood Pressure 110/62 03/26/2024 10:38 AM PRINCIPAL SOFTWARE ENGINEER Pulse 95 03/26/2024 10:38 AM PRINCIPAL SOFTWARE ENGINEER Temperature - - Respiratory Rate - - Oxygen Saturation 96% 03/26/2024 10:38 AM PRINCIPAL SOFTWARE ENGINEER Inhaled Oxygen Concentration - - Weight 93 kg (205 lb) 03/26/2024 10:38 AM PRINCIPAL SOFTWARE ENGINEER Height 160 cm (5' 3 ) 03/26/2024 10:38 AM PRINCIPAL SOFTWARE ENGINEER Body Mass Index 36.31 03/26/2024 10:38 AM PRINCIPAL SOFTWARE ENGINEER documented in this encounter Ordered Prescriptions Prescription Sig Dispense Quantity Refills Last Filled Start Date End Date warfarin (COUMADIN) 2 mg tabletIndications: atrial fibrillation Take 2 tablets (4 mg total) by mouth daily Take as directed, dose may change after blood test 60 tablet 11 03/26/2024 documented in this encounter Progress Notes * Greg, Tequila Emily, MARKETING STRATEGY ANALYST - 03/26/2024 10:30 AM CST Images from the original note were not included. [facility] Medical Group Cardiology [address] [place] [id number] Date of Visit: 03/26/2024 Patient ID: Kanchan [...] no previous cardiac history. She presented to [facility] on 01/22/2024 from her PCP office [...] She had a follow-up visit with her corporate strategy associate (José Tate MARKETING STRATEGY ANALYST) on 01/29/2024. At that time, rhythm was [...] understand these instructions. 03/05/2024 Hospital follow-up with MARKETING STRATEGY ANALYST: Kanchan Abbott comes to the office today [...] 140 bpm, low voltage,. 03/26/2024 office visit MARKETING STRATEGY ANALYST: She returns to the office for follow-up [...] Laterality Date ABDOMINAL SURGERY 09/23/2019 Right hemicolectomy TX LIGJ DIVJ &/EXCJ VARICOSE VEIN CLUSTER 1 LEG Varicose Vein Ligation - (Added by TW Conv) TX TONSILLECTOMY PRIMARY/SECONDARY <AGE 14 Tonsillectomy - (Added [...] 1 tablet (75 mcg total) by mouth quality consultant before breakfast, Disp: , Rfl: 0 metoprolol [...] for now. She is unable to afford [employer] and did not qualify for patient assistance. She ran out of [employer] 2 days ago. I will start her [...] anticoagulant. 03/26/2024 IGOR Gamboa- Nurse Practitioner with [facility] Cardiology This note is dictated and transcribed using GI Track Direct Software. Vp Platforms variancesmay occur. Despite proofreading, typographical errors may occur. CIPAL SOFTWARE ENGINEER CIPAL SOFTWARE ENGINEER documented in this encounter Miscellaneous Notes * Addendum Note - Tequila Alegre NP - 03/26/2024 10:30 AM CSTAddended by: TEQUILA ALEGRE on: 03/26/2024 11:28 AM Modules accepted: Orders CIPAL SOFTWARE ENGINEER documented in this encounter Plan of Treatment Not on file documented as of this encounter Procedures Procedure Name Priority Date/Time Associated Diagnosis Comments ECG 12-LEAD Routine 03/26/2024 4:15 PM PRINCIPAL SOFTWARE ENGINEER documented in this encounter Results * ECG 12 lead (03/26/2024 4:15 PM PRINCIPAL SOFTWARE ENGINEER) Tequila Alegre NP ECG ORDERABLES Final Res [...] documented as of this encounter Care Teams Bee Robber Relationship Specialty Start Date End Date Paulina Houser NP [address] [place] [address] PCP - General Family Medicine 03/05/24 Oscar Carroll MD [address] [place] [address] Tablet Technician Gastroenterology 09/03/19 Oleg Marrero MD [address] [place] [address] Surgeon Colon and Rectal Surgery 10/13/19 documented as of this encounter
--- OUTSIDE RECORDS SUMMARY | 2024-03-26 21:45 | XMS_ITS | Clinical Summary ---
Author Organization [facility] Address [facility] [place] [address] Care Team Providers Care Portable Pinch Riveter Name Role Phone Roman Mancia Primary Care Provider [phone] Allergies No known active allergies Medications aspirin [...] TIMES DAILY NEEDED FOR DIZZINESS 1 Active [place] 3 1200 MG Cap Take 2 tablets [...] on file Legal Sex Female 9:14 AM INFORMATION SYSTEMS SPECIALIST Gender Identity Not on file Sexual Orientation Not on file Last Filed Vital Signs Vital Sign Reading Time Taken Comments Blood Pressure 168/86 04/21/2021 9:26 AM INFORMATION SYSTEMS SPECIALIST Pulse 75 04/21/2021 9:26 AM INFORMATION SYSTEMS SPECIALIST Temperature 36.9 C (98.4 F) 04/21/2021 9:26 AM INFORMATION SYSTEMS SPECIALIST Respiratory Rate 16 04/21/2021 9:26 AM INFORMATION SYSTEMS SPECIALIST Oxygen Saturation 92% 04/21/2021 9:26 AM INFORMATION SYSTEMS SPECIALIST Inhaled Oxygen Concentration - - Weight 89.8 kg (198 lb) 04/21/2021 9:26 AM INFORMATION SYSTEMS SPECIALIST Height 160 cm (5' 3 ) 04/21/2021 9:26 AM INFORMATION SYSTEMS SPECIALIST Body Mass Index 35.07 04/21/2021 9:26 AM INFORMATION SYSTEMS SPECIALIST Plan of Treatment Health Maintenance Due Date [...] Payer ID:[id number] (NAIC) Type:Not on file Address: [place] [phone] Care Teams Portable Pinch Riveter Relationship Specialty Start Date End Date Roman Mancia DO [address] [address] PCP - General INTERNAL MEDICINE 02/21/21
--- OUTSIDE RECORDS SUMMARY | 2024-03-26 21:45 | XMS_ITS | Patient Health Summary ---
Author Organization [facility] Address [address] [place] [address] Care Team Providers Care Parcel Post Carrier Name Role Phone Brandon Roberts MD Primary Care Provider [phone] Note from [facility],non-owned Affiliates and Associated Physician Practices is amultiple site organization consisting of ambulatory clinics and hospital sitesin [place], [place], [place] and [place]. This disclosure is being madepursuant to the Care Everywhere program and may not contain all information available regarding this patient. Last updated 17.[facility] Allergies No known active allergies Medications * [...] 06/19/2012) * CREATININE BLOOD - POCT (IP) [facility](Performed 02/18/1998) Results * DERMATOPATHOLOGY (08/12/2023 11:17 AM CDT) Only the most recent of4 resultswithin the time period is included. Case Report Dermatopathology Report Case: [id number] Authorizing Provider: Chikis Mendoza MD Collected: 08/12/2023 11:17 AM Ordering Location: [facility] - Received: 08/13/2023 01:05 PM [...] characteristic determined by the Dermatopathology Laboratory at [facility], directed by Dr. Leslye Thomas. These tests need not be, and therefore are not, approved by the [place] Food and Drug Administration. The tests are used for clinical purposes. Billing Codes Specimen Charges Stain Charges 33734 1 4 5:05 PM CDT DERMATOPATHOLOGY LABORATORY Embedded Images 4 5:05 PM CDT DERMATOPATHOLOGY LABORATORY Pathology/Cytolo gy TISSUE SPECIMEN FROM SKIN / Unknown 08/12/2023 11:17 AM CDT 08/13/2023 1:05 PM CDT Chikis Mendoza MD LAB - PATHOLOGY/CYTO LOGY ORDERABLES DERMATOPATHOLOGY LABORATORY [facility] - Department of Dermatology [address], [address] [phone] * CT ANGIO BRAIN (06/19/2012 7:44 AM [...] ORDERABLES * CREATININE BLOOD - POCT (IP) [facility] (02/18/1998 12:00 AM CARE ASSISTANT) Creatinine POCT 0.73 0.3 - 1.3 mg/dL [facility] eGFR POCT 60 60 ml/min [facility] 02/18/1998 Historical Provider LAB - [place] RE ORDERABLES [facility] Care Teams Parcel Post Carrier Relationship Specialty Start Date End Date Brandon Roberts MD [address] [place] [id number] PCP - General 11/12/08
--- OUTSIDE RECORDS SUMMARY | 2024-03-26 21:45 | XMS_ITS | Encounter Summary ---
Author Organization [facility] Address [address] [place] [address] Care Team Providers Care Recreation Worker Name Role Phone Brandon Roberts MD Primary Care Provider [phone] Encounter Details Date Type Department Care Team (Late st Contact Info) Description 07/03/2022 Lab Requisition [facility] - DermPath Lab [address] [facility], [place] [address] Chikis Mendoza MD [address] [facility] [address] [place] [address] Social History Tobacco Use Types Packs/Day Years [...] AM CDT) Case Report Dermatopathology Report Case: [id number] Authorizing Provider: Chikis Mendoza MD Collected: 07/03/2022 11:35 AM Ordering Location: [facility] DermPath Lab Received: 07/03/2022 04:44 PM Pathologist: [...] of a non-oriented ellipse of skin measuring 43x06h28 mm. The epidermal surface is unremarkable. The [...] characteristic determined by the Dermatopathology Laboratory at [facility], directed by Dr. Leslye Thomas. These tests need not be, and therefore are not, approved by the [place] Food and Drug Administration. The tests are used for clinical purposes. Billing Codes Specimen Charges Stain Charges 78306 1 12:54 PM CDT DERMATOPATHOLOGY LABORATORY Embedded Images 12:54 PM CDT DERMATOPATHOLOGY LABORATORY Pathology/Cytolo gy TISSUE SPECIMEN FROM SKIN / Unknown 07/03/2022 11:35 AM CDT 07/03/2022 4:44 PM CDT Chikis Mendoza MD LAB - PATHOLOGY/CYTO LOGY ORDERABLES DERMATOPATHOLOGY LABORATORY [facility] - Department of Dermatology [address], [address] [phone] documented in this encounter Visit Diagnoses Not on filedocumented in this encounter Care Teams Recreation Worker Relationship Specialty [place] [address] [place] [id number] PCP - General 11/12/08 documented as of this encounter
--- OUTSIDE RECORDS SUMMARY | 2024-03-26 21:45 | XMS_ITS | Clinical Summary ---
Author Organization [facility] Address [address] [place] [address] Care Team Providers Care Rooming House Inspector Name Role Phone Brandon Roberts MD Primary Care Provider [phone] Source Comments [facility],non-owned Affiliates and Associated Physician Practices is amultiple site organization consisting of ambulatory clinics and hospital sitesin [place], [place] and [place]. This disclosure is being madepursuant to the Care Everywhere program and may not contain all information available regarding this patient. Last updated 17.[facility] Allergies No known active allergies Medications * [...] age to complete this topic Care Teams Rooming House Inspector Relationship Specialty Start Date End Date Brandon Roberts MD [address] [place] [address] PCP - General 11/12/08
--- OUTSIDE RECORDS SUMMARY | 2024-03-26 21:45 | XMS_ITS | Referral Summary ---
Author Organization [facility] [email or web address] Address [address] [place] [address] Care Team Providers Care Mangle Press Catcher Name Role Phone Brandon Roberts MD Primary Care Provider [phone] Source Comments [facility],non-owned Affiliates and Associated Physician Practices is amultiple site organization consisting of ambulatory clinics and hospital sitesin [place], [place]. This disclosure is being madepursuant to the Care Everywhere program and may not contain all information available regarding this patient. Last updated 17.[facility] [employer] Allergies No known active allergies Medications * [...] of Treatment Not on file Care Teams Mangle Press Catcher Relationship Specialty Start Date End Date Brandon Roberts MD [address] [place] [address] PCP - General 11/12/08
--- OUTSIDE RECORDS SUMMARY | 2024-03-26 21:45 | XMS_ITS | Clinical Summary ---
Author Organization [facility] Address [address] [place] [address] Care Team Providers Care Vp Client Services Name Role Phone Oscar Carroll MD Unavailable + Oleg Marrero MD Unavailable Paulina Houser NP Primary Care Provider [phone] Allergies No known active allergies Medications amLODIPine [...] 1 tablet (75 mcg total) by mouth head rose grower before breakfast 0 11/29/19 18 Active dupilumab [...] (07/20/2020): Added automatically from request for surgery [id number] History of colon cancer 10/29/2019 Clostridium difficile infection 10/07/2019 Acute postoperative abdominal pain 09/23/2019 Malignant neoplasm of hepatic flexure (CMS/HCC) 09/09/2019 Overview (09/09/2019): Added automatically from request for surgery [id number] Malignant neoplasm of transverse colon (CMS/HCC) 09/08/2019 Other atopic dermatitis 02/26/2018 Pruritus, unspecified 02/26/2018 Venous barkley of lip 02/26/2018 Encounters Date Type Department Care Team Description 03/26/2024 10:30 AM OPERATIONS MANAGER STATION Office Visit [place] [address] [place] [address] Tequila Garza NP Persistent atrial fibrillation (HCC) (Primary Dx); Encounter for anticoagulation discussion and counseling; On amiodarone therapy; MARC (obstructive sleep apnea); Chronic obstructive pulmonary disease, unspecified COPD type (HCC); Edema, lower extremity 03/26/2024 Anticoagulation Visit [address] [address] Teresa Snowden RN Atrial fibrillation, unspecified type (HCC) (Primary Dx) 03/26/[address] [address] Tequila Garza NP 03/11/[address] [address] Caridad Self MD Med Refill 03/05/2024 10:00 AM OPERATIONS MANAGER STATION Office Visit [address] [address] Tequila Garza NP Persistent atrial fibrillation with rapid ventricular response (CMS/HCC) (HCC) (Primary Dx); Chronic anticoagulation; History of cardioversion; MARC (obstructive sleep apnea); Chronic obstructive pulmonary disease, unspecified COPD type (HCC); Hospital discharge follow-up 03/05/2024 Orders Only [address] [address] Tequila Garza NP Persistent atrial fibrillation with rapid ventricular response (CMS/HCC) (HCC) 02/20/[address] [place] [address] Tequila Garza NP Medication Problem 02/20/2024 Orders Only [facility] Cardiology [address] [place] [address] [address] [place] [address] Teresa Tadeo MA 02/20/2024 Telephone [place] [address] [place] [address] Tequila Garza NP Med Refill 02/18/2024 Orders Only [place] [address] [place] [address] Oxana Fragoso NP 01/30/2024 Orders Only [place] [address] [place] [address] Oxana Fragoso NP 01/23/2024 Orders Only [place] [address] [place] [address] Oxana Fragoso NP from Last 3 Months Immunizations Name Administration Dates Next Due Pneumococcal Conjugate PCV 13 12/02/2017 Surgical History Surgery Date Site/Laterality Comments [place] LIGJ DIVJ &/EXCJ VARICOSE VEIN CLUSTER 1 LEG Varicose Vein Ligation - (Added by Conv) [place] TONSILLECTOMY PRIMARY/SECONDARY <AGE 14 Tonsillectomy - (Added [...] on file Legal Sex Female 12:02 PM OPERATIONS MANAGER STATION Gender Identity Female 10/28/2019 5:35 PM CDT Sexual Orientation Straight 10/28/2019 5: 35 PM CDT Obstetrics History Last Filed Vital Signs Vital Sign Reading Time Taken Comments Blood Pressure 110/62 03/26/2024 10:38 AM OPERATIONS MANAGER STATION Pulse 95 03/26/2024 10:38 AM OPERATIONS MANAGER STATION Temperature 37.1 C (98.7 F) 09/10/2023 10:46 AM CDT Respiratory Rate 25 10/18/2022 12:00 PM CDT Oxygen Saturation 96% 03/26/2024 10:38 AM OPERATIONS MANAGER STATION Inhaled Oxygen Concentration - - Weight 93 kg (205 lb) 03/26/2024 10:38 AM OPERATIONS MANAGER STATION Height 160 cm (5' 3 ) 03/26/2024 10:38 AM OPERATIONS MANAGER STATION Body Mass Index 36.31 03/26/2024 10:38 AM OPERATIONS MANAGER STATION Plan of Treatment Health Maintenance Due Date [...] Comments ECG 12-LEAD Routine 03/26/2024 4:15 PM OPERATIONS MANAGER STATION ECG 12-LEAD Routine 03/05/2024 Persistent atrial fibrillation with rapid ventricular response (CMS/HCC) (HCC) CARDIOLOGY DOCUMENT SCAN Routine 01/24/2024 9:55 AM OPERATIONS MANAGER STATION CARDIOLOGY DOCUMENT SCAN Routine 01/23/2024 3:36 PM OPERATIONS MANAGER STATION CARDIOLOGY DOCUMENT SCAN Routine 01/22/2024 3:51 PM OPERATIONS MANAGER STATION CARDIOLOGY DOCUMENT SCAN Routine 01/21/2024 3:49 PM OPERATIONS MANAGER STATION from Last 3 Months Results * ECG 12 lead (03/26/2024 4:15 PM OPERATIONS MANAGER STATION) Result [facility] Tequila Garza NP ECG ORDERABLES Final Res ult * ECG 12 lead (03/05/2024) 03/05/2024 Tequila Garza NP ECG ORDERABLES Edited Re sult - Final * Cardiology Document Scan (01/24/2024 9:55 AM OPERATIONS MANAGER STATION) Anatomical Region Laterality Modality Other Oxana Fragoso NP CV CARDIAC SERVICES PROCEDUR ES Final Result * Cardiology Document Scan (01/23/2024 3:36 PM OPERATIONS MANAGER STATION) Anatomical Region Laterality Modality Other Oxana Fargoso NP CV CARDIAC SERVICES PROCEDUR ES Final Result * Cardiology Document Scan (01/22/2024 3:51 PM OPERATIONS MANAGER STATION) Anatomical Region Laterality Modality Other Oleg Bowles MD CV CARDIAC SERVICES PROCE DURES Final Result * Cardiology Document Scan (01/21/2024 3:49 PM OPERATIONS MANAGER STATION) Anatomical Region Laterality Modality Other Oxana Fragoso NP CV CARDIAC SERVICES PROCEDUR ES Final Result from Last 3 Months Insurance [employer] MED[employer]ARE [employer]IONS Advance Directives For more information, please contact: [phone] * Full Code (Latest Code Status on [...] Manzo Daughter Health Care Agent Care Teams Vp Client Services Relationship Specialty Start Date End Date Paulina Houser NP [address] [place] [address] PCP - General Family Medicine 03/05/24 Oscar Carroll MD [address] [place] [address] Terrazzo Supervisor Gastroenterology 09/03/19 Oleg Marrero MD [address] [place] [address] Surgeon Colon and Rectal Surgery 10/13/19
--- OUTSIDE RECORDS SUMMARY | 2024-03-26 21:45 | XMS_ITS | Encounter Summary ---
Author Organization [facility] Healthcare Address [address] [place] [address] Care Team Providers Care Client Account Representative Name Role Phone Oscar Carroll MD Unavailable + Oleg Marrero MD Unavailable [phone] Paulina Houser NP Primary Care Provider [phone] Encounter Details Date Type Department Care Team (Latest Contact Info) Description 03/26/2024 Anticoagulation Visit [facility] Medical Group Cardiology [address] [place] [phone] Teresa Snowden RN Atrial fibrillation, unspecified type [...] on file Legal Sex Female 12:02 PM TANKAGE GRINDER OPERATOR Gender Identity Female 10/28/2019 5:35 PM CDT Sexual Orientation Straight 10/28/2019 5: 35 PM CDT documented as of this encounter Plan of Treatment Not on file documented as of this encounter Visit Diagnoses Diagnosis Atrial fibrillation, unspecified type (HCC)- Primary documented in this encounter Care Teams Client Account Representative Relationship Specialty Start Date End Date Paulina Houser NP [address] [place] [address] PCP - General Family Medicine 03/05/24 Oscar Carroll MD [address] [place] [address] Office Services Associate Gastroenterology 09/03/19 Oleg Marrero MD [address] [place] [address] Surgeon Colon and Rectal Surgery 10/13/19 documented as of this encounter
--- OUTSIDE RECORDS SUMMARY | 2024-03-26 21:45 | XMS_ITS | Encounter Summary ---
Author Organization [facility] Address [address] [place] [address] Care Team Providers Care Box Estimator Name Role Phone Brandon Roberts MD Primary Care Provider [phone] Encounter Details Date Type Department Care Team (Late st Contact Info) Description 08/12/2023 Lab Requisition [facility] - DermPath Lab [address] [facility] [place] [place] [address] Chikis Mendoza MD [address] [facility] [place] [address] [place] [address] Social History Tobacco Use Types Packs/Day Years [...] AM CDT) Case Report Dermatopathology Report Case: [id number] Authorizing Provider: Chikis Mendoza MD Collected: 08/12/2023 11:17 AM Ordering Location: [facility] - Received: 08/13/2023 01:05 PM [...] characteristic determined by the Dermatopathology Laboratory at [facility], directed by Dr. Leslye Thomas. These tests need not be, and therefore are not, approved by the [place] Food and Drug Administration. The tests are used for clinical purposes. Billing Codes Specimen Charges Stain Charges 20928 1 5:05 PM CDT DERMATOPATHOLOGY LABORATORY Embedded Images 5:05 PM CDT DERMATOPATHOLOGY LABORATORY Pathology/Cytolo gy TISSUE SPECIMEN FROM SKIN / Unknown 08/12/2023 11:17 AM CDT 08/13/2023 1:05 PM CDT Chikis Mendoza MD LAB - PATHOLOGY/CYTO LOGY ORDERABLES DERMATOPATHOLOGY LABORATORY [facility] - Department of Dermatology [facility] Medicine [address] [place] [address], [address] [phone] documented in this encounter Visit Diagnoses Not on filedocumented in this encounter Care Teams Box Estimator Relationship Specialty [place] [address] [place] [address] PCP - General 11/12/08 documented as of this encounter
--- OUTSIDE RECORDS SUMMARY | 2024-03-26 21:45 | XMS_ITS | Encounter Summary ---
Author Organization [facility] Healthcare Address [address] [place] [address] Care Team Providers Care Home Care Chaplain Name Role Phone Oscar Carroll MD Unavailable + Oleg Marrero MD Unavailable [phone] Paulina Houser NP Primary Care Provider [phone] Reason for Visit * Reason Onset Date Comments Med Refill 03/11/2024 Encounter Details Date Type Department Care Team (Late st Contact Info) Description 03/11/2024 Telephone [facility] Medical Group Cardiology [address] [facility] [address] [place] [address] Caridad Self MD [address] [id number] Med Refill Social History Tobacco Use Types [...] on file Legal Sex Female 12:02 PM BALLAST INSPECTOR Gender Identity Female 10/28/2019 5:35 PM CDT Sexual Orientation Straight 10/28/2019 5: 35 PM CDT documented as of this encounter Miscellaneous Notes * Telephone Encounter - Teresa Tadeo MA - 03/12/2024 9:11 AM CST Thank you- sent to pharmacy AST INSPECTOR * Telephone Encounter - Tequila Garza NP - 03/12/2024 9:07 AM BALLAST INSPECTOR Our med list shows that she takes 2 per day AST INSPECTOR * Telephone Encounter - Tequila Garza NP - 03/12/2024 9:07 AM BALLAST INSPECTOR Yes that is fine, thanks. AST INSPECTOR * Telephone Encounter - Teresa Tadeo MA - 03/11/2024 2:55 PM CST Tequila, Is this okay to send in your name? Thank you AST INSPECTOR * Telephone Encounter - Penny Vazquez - 03/11/2024 2:48 PM CST Patient requesting refill for potassium chloride ER 20 mEq CR tablet with 60 day supply. Please send to [facility] pharmacy. Thank you. Contact [phone] AST INSPECTOR documented in this encounter Plan of Treatment Not on file documented as of this encounter Visit Diagnoses Not on filedocumented in this encounter Care Teams Home Care Chaplain Relationship Specialty Start Date End Date Paulina Houser NP [address] [place] [address] PCP - General Family Medicine 03/05/24 Oscar Carroll MD [address] [place] [address] Set Up Operator Gastroenterology 09/03/19 Oleg Marrero MD [address] [place] [address] Surgeon Colon and Rectal Surgery 10/13/19 documented as of this encounter
--- OUTSIDE RECORDS SUMMARY | 2024-03-26 21:45 | XMS_ITS | Encounter Summary ---
Author Organization [facility] Healthcare Address [address] [place] [address] Care Team Providers Care Pipe Line Inspector Name Role Phone Oscar Carroll MD Unavailable + Oleg Marrero MD Unavailable [phone] Paulina Houser NP Primary Care Provider Encounter Details Date Type Department Care Team (Late st Contact Info) Description 03/26/2024 Telephone [facility] Medical Group Cardiology [address] [facility] [address] [place] [address] Tequila Garza NP [address] [place] [address] Social History Tobacco Use Types [...] on file Legal Sex Female 12:02 PM DIESEL ELECTRICIAN Gender Identity Female 10/28/2019 5:35 PM CDT Sexual Orientation Straight 10/28/2019 5: 35 PM CDT documented as of this encounter Miscellaneous Notes * Telephone Encounter - Teresa Snowden RN - 03/26/2024 11:49 AM DIESEL ELECTRICIAN Per CT, once pt has been therapeutic for 30 days she should be scheduled for CV. EL ELECTRICIAN * Telephone Encounter - Teresa Snowden RN - 03/26/2024 11:27 AM DIESEL ELECTRICIAN Warfarin education reviewed with pt and pts granddaughter. Written information provided. Both verbalize understanding and all questions and concerns answered. Pt will start at 4mg daily and check INRin 1 week a [facility]. Pt request that we call her granddaughter with INR results. EL ELECTRICIAN documented in this encounter Plan of Treatment Scheduled Orders Name Type Priority Associated Diagnoses Orde r Schedule Protime-INR Lab Routine Chronic anticoagulation weekly for 52 Occurrences starting 03/26/2024 until 03/26/2025 documented as of this encounter Visit Diagnoses Diagnosis Chronic anticoagulation- Primary Encounter for long-term (current) use of anticoagulants documented in this encounter Care Teams Pipe Line Inspector Relationship Specialty Start Date End Date Paulina Houser NP [address] [place], [place] [phone] PCP - General Family Medicine 03/05/24 Oscar Carroll MD [address] [place] [address] Contract Administrative Assistant Gastroenterology 09/03/19 Oleg Marrero MD [address] [place] [address] Surgeon Colon and Rectal Surgery 10/13/19 documented as of this encounter
--- OUTSIDE RECORDS SUMMARY | 2024-03-26 21:45 | XMS_ITS ---
Author Organization [facility] Address [address] [place] [address] Care Team Providers Care Pipeline Executive Name Role Phone Oscar Carroll MD Unavailable + Oleg Marrero MD Unavailable [phone] Paulina Houser NP Primary Care Provider [phone] Active Problems Problem Noted Date Diagnosed Date Atrial fibrillation (CMS/HCC) 03/26/2024 Screening for malignant neoplasm of colon 2020 Overview (07/20/2020): Added automatically from request for surgery [id number] History of colon cancer 10/29/2019 Clostridium difficile infection 10/07/2019 Acute postoperative abdominal pain 09/23/2019 Malignant neoplasm of hepatic flexure (CMS/HCC) 09/09/2019 Overview (09/09/2019): Added automatically from request for surgery [id number] Malignant neoplasm of transverse colon (CMS/HCC) 09/08/2019 Other atopic dermatitis 02/26/2018 Pruritus, unspecified 02/26/2018 Venous barkley of lip 02/26/2018 Current Oncology Plans No current plan information found. Past Plans No past plan information found. Radiation Treatments * No radiation treatments are documented for this patient in [facility]. Treatments may have been administered in another system. Lifetime Dose Tracking * Chemical Lifetime Dose Automatic Entry Manual Entr y DLP 1,286 mGycm 1,286 mGycm 0 mGycm Treatment Summaries Malignant neoplasm of transverse colon (CMS/HCC) (HCC)* Images from the original note were not included. [id number] [place] [address] This Survivorship Care Plan is a cancer [...] Information: Primary Care Physician Roman Mancia DO [phone] Surgeon Oleg Marrero MD Radiation Oncologist Medical Oncologist Core Feeder Oscar Bill MD Treatment Summary Cancer Diagnosis [...] valrubicin, doxorub icin isotoxic equivalent Research Studies [facility] ([facility]) [...] Medical oncology and Surgeon if both are [facility] Physicians) History and Physical every 3 months [...] Help learning to eat healthier, call the ward attendant at: [facility] . Have an active lifestyle, strive [...] physician. Resources you may be interested in: [facility] Cancer [place] A National Cancer [place] [facility] http://www.[facility]/ [facility] & Cancer Information Center 1st floor of [facility] [phone]. Computer access, educational material, counseling services (FREE) [employer] Ost[employer] Association: the place for ostomy resources, advocacy, and support. www.ostomy.org The ostomy nurse at [facility] can be reached at [phone] Online Resources: www.cancer.net; http://www.cdc.gov/cancer/survivorship; http://www.cancercare.org/tagged/post-treatment_survivorship; http://www.cancer.gov/about-cancer/coping/survivorship [employer]: https://survivorship.cancer.gov/ an online tool for cancer survivors andcaregivers created by the [employer] and the National Cancer [place]. It provides: Information on dealing with side effects from cancer and treatment Caregivers with support and resources Practical advice about talking to friends and family about cancer Questions to ask their health care team Help understanding their rights in the workplace
[2024-03-26] MEDS: ceFAZolin 1 GM/NS 50 ML 1 GM/50 ML BAG IVPB (22:07)
[2024-03-26] MEDS: KETAMINE HCL (*CRX) 500 MG/10 ML VIAL 100 MG IV PUSH (22:08)
[2024-03-26] MEDS: BUPivacaine HCL 0.25% PF 30 ML VIAL INFILTRATE (22:09)
[2024-03-26] MEDS: BUPivacaine HCL 0.25% PF 30 ML VIAL (22:23)
--- NOTE | 2024-03-26 22:49 | PC.NURSE ---
5393--Time out performed at bedside with Russel Turner RN. Shay RN, Resp therapist at bedside for right chest tube insertion. Resuscitation cart at bedside. IVF NS at [facility]
--- NOTE | 2024-03-26 22:53 | PC.NURSE ---
2240 Insertion 16Fr chest tube insert by Dr Lehman-patient tolerated well
[2024-03-26 23:11] LABS: Basophils Absolute Auto 0.1 K/mm3 (0.0-0.1); Basophils Percent Auto 0.5 % (0.2-1.2); Eosinophils Absolute Auto 0.4 K/mm3 (0-0.3); Eosinophils Percent Auto 2.5 % (0-4.4); Hematocrit 44.9 % (37.0-47.0); Hemoglobin 14.4 g/dL (12.0-15.0); Immature Granulocyte Absolute 0.09 K/mm3 (0.00-0.031); Immature Granulocyte Percent A 0.6 % (0-0.5); Lymphocytes Absolute Auto 1.48 K/mm3 (0.9-3.2); Lymphocytes Percent Auto 9.9 % (18.3-44.2); Mean Corpuscular HGB Conc 32.1 g/dl (32-36); Mean Corpuscular Hemoglobin 29.8 pg (26-34); Mean Platelet Volume 12.4 fl (7.4-10.4); Monocytes Absolute Auto 1.2 K/mm3 (0.1-0.6); Monocytes Percent Auto 8.2 % (2.6-8.5); Neutrophils Absolute Auto 11.7 K/mm3 (1.3-6.7); Neutrophils Percent Auto 78.3 % (45.5-73.1); Platelet Count Result 221 k/mm3 (150-375); Red Blood Count 4.83 M/mm3 (4.2-5.4); Red Cell Distribution Width 14.3 % (11.5-14.5); White Blood Count 14.9 K/mm3 (4.5-10.0)
[2024-03-26 23:16] LABS: Alanine Aminotransferase 25 U/L (6-35); Albumin Level 4.5 g/dL (3.5-5.1); Alkaline Phosphatase 154 U/L (38-126); Anion Gap 13 mmol/L (4-12); Aspartate Amino Transferase 31 U/L (14-36); Bilirubin,Total 0.8 mg/dL (0.2-1.3); Blood Urea Nitrogen 27 mg/dL (7-17); Calcium 9.3 mg/dL (8.4-10.2); Carbon Dioxide 28 mmol/L (22-30); Chloride 98 mmol/L (98-107); Estimated CRCL calculation 42 ml/min; Estimated Glomerular Filt Rate > 60; Glucose 122 mg/dL (65-110); Potassium 4.3 mmol/L (3.4-5.0); Sodium 139 mmol/L (137-145)
[2024-03-26 23:23] LABS: INR 1.1; Prothrombin Time 14.3 Seconds (11.1-14.7)
[2024-03-26 23:24] LABS: Partial Thromboplastin Time 32.2 Seconds (22.3-36.8)
--- NOTE | 2024-03-26 23:29 | PC.NURSE ---
@2014 pt family made this Rn aware that pts SOB was increasing, this Rn placed order in chart for chest Xray. @2054 PT WAS BROUGHT BACK TO WAITING ROOM FROM XRAY- pt was diaphoretic, flushed, and pts SOB had greatly increased. This RN made Dr. Lehman aware of pts change in condition. at 2119 pt was taken directly to room 9 with EDP at bedside. Dr. Lehman preformed needle decompression almost immediately upon pts arrival to room.
--- NOTE | 2024-03-26 23:44 | PC.NURSE ---
2216--Unable to measure CO2 due to no Monitoring cannulas-MD aware Ok to just have respiratory monitor
[2024-03-27] VITALS (14 sets, daily range): BP systolic 113–132; BP diastolic 60–77; PULSE 71–96; RESP 18–23; TEMP 36.5–36.7; O2SAT 94–100; BMI 39.0
[2024-03-27 00:20] LABS: Influenza A QL RT-PCR Negative (Negative); Influenza B QL RT-PCR Negative (Negative); RSV RNA, RT-PCR Negative (Negative); SARS-CoV-2 RNA PCR Negative (Negative)
--- NOTE | 2024-03-27 00:33 | ED.GENADULT ---
HPI - General Adult General Chief complaint: Fall Stated complaint: ground level fall, pain in back, SOB Time Seen by Provider: 03/26/24 21:31 History of Present Illness HPI narrative: This is an 88-year-old female presenting after ground level fall. She is getting something out of a cabinet when she lost her balance and fell backwards hitting a chair. She had pain in her right back. She then developed shortness of breath. She came to the ER to be evaluated. She denies head trauma loss of consciousness. She has been ambulatory since the incident. Patient is supposed to be on anticoagulation for atrial fibrillation but ran out of her Eliquis 4 days ago. She has been prescribed Coumadin by her applications programmer analyst but has not started taking Related Data Home Medications ?Medication ?Instructions ?Recorded ?Confirmed ?Last Taken ?Type aspirin 81 mg tablet,delayed 81 mg PO DAILY 03/02/19 02/27/24 09/01/19 07:30 History release dupilumab 300 mg/2 mL subcutaneous 300 mg subcut ONCE 03/02/19 02/27/24 Unknown History syringe (Dupixent) ascorbic acid (vitamin C) 1,000 mg 1 g PO DAILY 02/28/22 02/27/24 Unknown History capsule cholecalciferol (vitamin D3) 125 125 mcg PO DAILY 02/28/22 02/27/24 Unknown History mcg (5,000 unit) capsule calcium carbonate (Calcium 600) 600 mg PO DAILY 05/07/22 02/27/24 Unknown History mecobalamin (vitamin B12) 2,500 2,500 mcg PO DAILY 05/07/22 02/27/24 Unknown History mcg chewable tablet zinc glycinate 30 mg capsule 30 mg PO DAILY 09/03/22 02/27/24 Unknown History Allergies Allergy/AdvReac Type Severity Reaction Status Date / Time No Known Allergies Allergy Verified 01/29/24 16:06 [facility] Past Medical History Medical History Lump of right breast 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 Osteopenia Degenerative arthritis of knee, bilateral Basal cell carcinoma Vertigo Hearing loss Atrial tachycardia from anesthesia Blood in stool Bowel habit changes Hypothyroidism Varicose vein of leg COPD (chronic obstructive pulmonary disease) GERD (gastroesophageal reflux disease) Frequent headaches Afib Hyperlipidemia Hypertension Surgical History Surgical History History of colectomy H/O arthroscopy of knee both knees, meniscectomy History of foot surgery History of tonsillectomy Family History Family History Mother Family history of malignant neoplasm of breast in first degree relative Father Family history of throat cancer Family history of malignant neoplasm Other Family history of arthritis Social History Social History Social History: Patient stated she socially smokes. Smoking packs per day: 1 Smoking cigarettes per day: 20.0 Years smoked: 30 Smoking pack-years: 30.00 Smoking status: Former smoker Second hand tobacco smoke exposure: Yes Alcohol intake: never Substance use: never Substance use type: does not use Do You Feel Safe in your Home?: Yes Lack of Transportation: No Lack of Food: Never True Current Housing: I Have Housing Concerned About Future Housing: No Difficulty Paying Gas/Electric Bills: No Difficulty Paying for Meds: No Currently Unemployed: No Education: High School Diploma/GED Difficulty w/ Childcare or Family Care: No Living arrangements: alone Occupation/Education: retired Gender identity (if verbalized by the patient): Female Spiritual care concerns: No Exam Narrative: APPEARANCE: Patient in florid Respiratory distress Head: atraumatic. EYES: EOMI, NOSE: Atraumatic NECK/back: Tenderness palpation over the right posterior thorax, AP and lateral loading of the ribcage RESPIRATORY: Tachypneic, decreased lung sounds on the right side CARDIOVASCULAR: Tachycardic ABDOMINAL: Soft nontender MUSCULOSKELETAl: No obvious deformities, head to toe trauma exam revealed tenderness over the right thorax but no other injuries. NEURO: Alert. Moving 4/4 extremities SKIN:: Warm, dry. Normal color PSYCHIATRIC: Normal affect Course Vital Signs Vital signs: Vital Signs Pulse Oximetry 96 03/26/24 19:44 Oxygen Delivery Nasal Cannula 03/26/24 19:44 Oxygen Flow Rate 4 03/26/24 19:44 Temperature 97.5 F L 03/26/24 23:30 Pulse Rate 108 H 03/26/24 23:45 Respiratory Rate 24 H 03/26/24 23:45 Blood Pressure 131/78 03/26/24 23:45 Pulse Oximetry 100 03/26/24 23:45 Oxygen Delivery Non-Rebreather Mask 03/26/24 23:45 Oxygen Flow Rate 15 03/26/24 23:45 Procedures Chest Tube Chest Tube 1: Chest Tube Date: 03/27/24 Chest Tube Location: anterior axillary line Tube Type: standard (16 Fr) Chest Tube Prep: Yes betadine prep and sterile drapes applied Anesthetic: bupivacaine 0.25% Amount of anesthesia used (mL): 10 Incision Made With: #11 blade Procedure: seldinger technique Post Procedure: sutured to skin, sterile dressing applied and connected to Pluero Vac Post Procedure CXR?: Yes Post Procedure: post CXR reviewed Patient Tolerated Procedure: Yes Procedural Sedation Procedural Sedation #1: Procedural Sedation Date: 03/27/24 Presedation Evaluation: See physical exam Procedure: Chest tube placement Provider Performed: sedation and procedure Time Out: For for Informed Consent Obtained: yes Equipment in Room: bag and mask, capnography, monitor tech, crash cart, oxygen, pulse oximeter and suction Plan for Sedation: moderate sedation ASA Class: III Mallampati Classification: class II NPO Status: last solid food (hours ago) Explanation to Patient/Family: Risk/Benefits/Alternatives and Pt/Family agreed with plan Pt. Educated on Procedural Sedation: Yes Re-evaluated immediately prior: Yes Preparation: monitor tech applied, pulse oximeter, capnometry used, supplemental O2 applied, reversal agents at bedside, suction/airway equipment at bedside and IV secured Ketamine: IV Ketamine dose (mg): 100 Patient Tolerated Procedure: well Complications: none Medical Decision Making MDM Narrative Medical decision making narrative: -Course: 88-year-old female presenting after ground level fall with shortness of breath. I was called by radiology and informed that she had a pneumothorax while she was still in the lobby. Almost simultaneously I was informed by the triage nurse that she was getting significantly worse and that she was having more trouble breathing. She was brought back emergently to the room where she was tachycardic/ tachypneic/hypoxic. A needle decompression was performed for suspected tension pneumothorax in the 2nd intercostal space on the right side with a significant dickerson of air. A 16 Barb[place] chest tube was then placed in the right side without complication. CT showed a posterior 5th rib fracture. No other traumatic injuries. Case discussed with Dr. Fernandez who will consult for chest tube for management. Patient will be admitted to the medicine service. Patient has atrial fibrillation. Anticoagulation can be restarted by the primary team when medically appropriate. Vital Signs Vital Signs: Vital Signs Pulse Oximetry 96 03/26/24 19:44 Oxygen Delivery Nasal Cannula 03/26/24 19:44 Oxygen Flow Rate 4 03/26/24 19:44 Temperature 97.5 F L 03/26/24 23:30 Pulse Rate 108 H 03/26/24 23:45 Respiratory Rate 24 H 03/26/24 23:45 Blood Pressure 131/78 03/26/24 23:45 Pulse Oximetry 100 03/26/24 23:45 Oxygen Delivery Non-Rebreather Mask 03/26/24 23:45 Oxygen Flow Rate 15 03/26/24 23:45 Lab Data 03/26/24 21:28 03/26/24 21:28 Labs: Lab Results 03/26/24 03/26/24 03/27/24 Range/Units 21:28 23:33 00:56 WBC 14.9 H (4.5-10.0) K/mm3 RBC 4.83 (4.2-5.4) M/mm3 Hgb 14.4 (12.0-15.0) g/dL Hct 44.9 (37.0-47.0) % MCV 93.0 (80-100) fl MCH 29.8 (26-34) pg MCHC 32.1 (32-36) g/dl RDW 14.3 (11.5-14.5) % Plt Count 221 (150-375) k/mm3 MPV 12.4 H (7.4-10.4) fl Immature Gran % (Auto) 0.6 H (0-0.5) % Neut % (Auto) 78.3 H (45.5-73.1) % Lymph % (Auto) 9.9 L (18.3-44.2) % [place] % (Auto) 8.2 (2.6-8.5) % Eos % (Auto) 2.5 (0-4.4) % Baso % (Auto) 0.5 (0.2-1.2) % Lymph # (Auto) 1.48 (0.9-3.2) K/mm3 [place] # (Auto) 1.2 H (0.1-0.6) K/mm3 Eos # (Auto) 0.4 H (0-0.3) K/mm3 Baso # (Auto) 0.1 (0.0-0.1) K/mm3 Abs Immat Gran (auto) 0.09 H (0.00-0.031) K/mm3 Absolute Neuts (auto) 11.7 H (1.3-6.7) K/mm3 Absolute Nucleated RBC 0.000 (0.0-0.012) K/mm3 Nucleated RBC % 0.0 (0.0-0.2) % PT 14.3 (11.1-14.7) Seconds INR 1.1 APTT 32.2 (22.3-36.8) Seconds Sodium 139 (137-145) mmol/L Potassium 4.3 (3.4-5.0) mmol/L Chloride 98 (98-107) mmol/L Carbon Dioxide 28 (22-30) mmol/L Anion Gap 13 H (4-12) mmol/L BUN 27 H (7-17) mg/dL Creatinine 0.88 (0.7-1.0) mg/dL Estim Creat Clear Calc 42 ml/min Estimated GFR > 60 (59 - ) Glucose 122 H (65-110) mg/dL Calcium 9.3 (8.4-10.2) mg/dL Total Bilirubin 0.8 (0.2-1.3) mg/dL AST 31 (14-36) U/L ALT 25 (6-35) U/L Alkaline Phosphatase 154 H (38-126) U/L Total Protein 8.0 (6.3-8.2) g/dL Albumin 4.5 (3.5-5.1) g/dL Urine Color Yellow (Yellow) Urine Appearance Clear (Clear) Urine pH 5.5 (5.0-9.0) Ur Specific [place] 1.019 (1.001-1.035) Urine Protein Negative (Negative) mg/dL Urine Glucose (UA) Negative (Negative) mg/dL Urine Ketones Trace H (Negative) mg/dL Ur Blood (Man) Negative (Negative) Urine Nitrate Negative (Negative) Urine Bilirubin Negative (Negative) Urine Urobilinogen 0.2 (<2.0) mg/dL Leukocyte Esterase Rfl Negative (Negative) FILIPPO/UL Influenza A (RT-PCR) Negative (Negative) Influenza B (RT-PCR) Negative (Negative) RSV (RT-PCR) Negative (Negative) SARS-CoV-2 RNA (RT-PCR) Negative (Negative) Discharge Plan Discharge Clinical Impression: Closed rib fracture, Pneumothorax Patient Disposition: Still a Patient Condition: Stable Patient Language: Korean Prescriptions: No Action ascorbic acid (vitamin C) 1,000 mg capsule 1 g PO DAILY cholecalciferol (vitamin D3) 125 mcg (5,000 unit) capsule 125 mcg PO DAILY mecobalamin (vitamin B12) 2,500 mcg tablet,chewable 2,500 mcg PO DAILY calcium carbonate [Calcium 600] 600 mg calcium (1,500 mg) tablet 600 mg PO DAILY fluticasone propion-salmeterol [Wixela Inhub] 100-50 mcg/dose blister with device 1 inh inhalation Q12H Qty: 60 2RF levalbuterol tartrate [Xopenex HFA] 45 mcg/actuation HFA aerosol inhaler 1 puff inhalation Q6H PRN (Reason: shortness of breath or wheezing) Qty: 15 2RF buspirone 5 mg tablet 5 mg PO BID Qty: 60 2RF zinc glycinate 30 mg capsule 30 mg PO DAILY Eliquis 5 mg Tablet 5 mg PO Q12HR Qty: 60 0RF furosemide 40 mg Tablet 40 mg PO DAILY Qty: 30 0RF atorvastatin 40 mg Tablet 40 mg PO DAILY Qty: 30 0RF metoprolol succinate 50 mg Tablet Extended Release 24 Hr 50 mg PO QAM Qty: 30 0RF aspirin 81 mg tablet,delayed release (DR/EC) 81 mg PO DAILY Dupixent Syringe 300 mg/2 mL syringe 300 mg SUB-Q ONCE potassium chloride 20 mEq tablet extended release 40 meq PO DAILY Qty: 60 0RF amlodipine 5 mg tablet See Rx Instructions .ROUTE .COMPLEX Qty: 90 0RF Dose Instruction: TAKE 1 TABLET BY MOUTH DAILY Rx Instructions: TAKE 1 TABLET BY MOUTH DAILY levothyroxine 75 mcg tablet See Rx Instructions .ROUTE .COMPLEX Qty: 90 0RF Dose Instruction: TAKE 1 TABLET BY MOUTH DAILY Rx Instructions: TAKE 1 TABLET BY MOUTH DAILY eszopiclone [Lunesta] 2 mg tablet 2 mg PO ONCE Qty: 1 0RF Rx Instructions: Take with you to sleep lab on the night of sleep study. Follow-up/Referrals: Paulina Houser APRN [Primary Care Provider] -
--- NOTE | 2024-03-27 00:40 | ECG_ITS ---
Test Date: 2024-03-27 00:43:41 Measurements Intervals [place] Rate: 109 P: 0 TX: 0 QRS: -31 QRSD: 107 T: -61 QT: 295 QTc: 397 Interpretive Statements ATRIAL FIBRILLATION WITH RAPID VENTRICULAR RESPONSE LEFT AXIS DEVIATION DELAYED PRECORDIAL R/S TRANSITION NONSPECIFIC ST-T WAVE ABNORMALITY- INF/LAT LEADS BASELINE ARTIFACT- I, II, III, AVR, AVL, AVF, V1-V6 ABNORMAL ECG Compared to ECG 01/23/2024 22:40:28 Sinus rhythm no longer present Electronically Signed On 03-27-2024 06:37:14 COMPOUND FINISHER by Shabbir Ann D.O.
[2024-03-27] MEDS: diazePAM INJ (*CRX) 10 MG/2 ML SYRINGE 5 MG IM (00:57)
[2024-03-27 01:04] LABS: Add Urine Microscopic? NO; Appearance Urine Clear (Clear); Bilirubin Urine Negative (Negative); Blood Urine Negative (Negative); Color Urine Yellow (Yellow); Glucose Urine UA Negative (Negative); Ketones Urine Trace mg/dL (Negative); Leukocyte Esterase Ur Negative LEU/UL (Negative); Nitrate Urine Negative (Negative); Protein Urine Negative (Negative); Specific Grav Ur 1.019 (1.001-1.035); Urobilinogen Urine 0.2 mg/dL (<2.0); pH Urine 5.5 (5.0-9.0)
[2024-03-27] MEDS: HYDROcodone/acetaminophen (*CRX) 5-325 MG TABLET 1 TAB PO (01:07)
[2024-03-27] MEDS: KETOROLAC 15 MG/ML VIAL (*BKC) IV PUSH (01:07)
[2024-03-27] MEDS: LACTATED RINGERS 1,000 ML 125 ML IV CONT (03:25)
[2024-03-27] MEDS: TETANUS,DIPHTHERIA,AC PERTUSSIS ADULT (0.5 ML) BOOSTRIX IM (03:27)
[2024-03-27] MEDS: ACETAMINOPHEN 500 MG TABLET PO ×3 (05:25→17:09)
--- NOTE | 2024-03-27 05:40 | ADMGEN ---
This patient, Kanchan Abbott, was admitted to 3 [facility] Surg Room 315-01. Patient/family oriented to hospital policies and general routines including ID bracelet, bed and alarms, visiting hours, pain management, procedures, bathroom and other care routines, personal items, smoking policy, room service/diet, and visiting hours. Information on how to activate the Rapid Response Team has been discussed. Patient/Family are encouraged to report perceived risks to care and to ask questions if they do not understand what they are told or what they should do.
[2024-03-27 08:13] LABS: Basophils Absolute Auto 0.1 K/mm3 (0.0-0.1); Basophils Percent Auto 0.5 % (0.2-1.2); Eosinophils Percent Auto 0.2 % (0-4.4); Hematocrit 39.7 % (37.0-47.0); Hemoglobin 12.4 g/dL (12.0-15.0); Immature Granulocyte Absolute 0.04 K/mm3 (0.00-0.031); Immature Granulocyte Percent A 0.4 % (0-0.5); Lymphocytes Absolute Auto 0.62 K/mm3 (0.9-3.2); Lymphocytes Percent Auto 5.9 % (18.3-44.2); Mean Corpuscular HGB Conc 31.2 g/dl (32-36); Mean Corpuscular Hemoglobin 29.7 pg (26-34); Mean Corpuscular Volume 95.2 fl (80-100); Mean Platelet Volume 11.8 fl (7.4-10.4); Monocytes Percent Auto 9.2 % (2.6-8.5); Neutrophils Absolute Auto 8.8 K/mm3 (1.3-6.7); Neutrophils Percent Auto 83.8 % (45.5-73.1); Platelet Count Result 162 k/mm3 (150-375); Red Blood Count 4.17 M/mm3 (4.2-5.4); Red Cell Distribution Width 14.3 % (11.5-14.5); White Blood Count 10.5 K/mm3 (4.5-10.0)
--- NOTE | 2024-03-27 08:22 | P.HP_ITS ---
H&P: HPI History of Present Illness Date/Time: 03/27/24 08:22 Chief Complaint: Fall and shortness of breath Narrative: This is an 88-year-old female presenting after ground level fall. She is getting something out of a cabinet when she lost her balance and fell backwards hitting a chair. She had pain in her right back. She then developed shortness of breath. She came to the ER to be evaluated. She denies head trauma loss of consciousness. She has been ambulatory since the incident. Patient is supposed to be on anticoagulation for atrial fibrillation but ran out of her Eliquis 4 days ago. She has been prescribed Coumadin by her home planning consultant salesperson but has not started taking. She was in severe respiratory distress on arrival to the ED. Workup revealed pneumothorax for which chest tube has been placed. She is admitted in the setting. She is feeling much better since the chest tube has been put in Review of Systems Review of Systems: - CONSTITUTIONAL: Denies weight loss, fe rosas and chills. - HEENT: Denies changes in vision and he aring - RESPIRATORY: Reports SOB and denies c ough. - CV: Denies palpitations and reports CP . - GI: Denies abdominal pain, nausea, vom iting and diarrhea. - : Denies dysuria and urinary frequen cy. - MSK: Denies myalgia and joint pain. - SKIN: Denies rash and pruritus. - NEUROLOGICAL: Denies headache and sync ope. - PSYCHIATRIC: Denies recent changes in mood. Denies anxiety and depression. 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 Osteopenia Degenerative arthritis of knee, bilateral Basal cell carcinoma Vertigo Hearing loss Atrial tachycardia from anesthesia Blood in stool Bowel habit changes Hypothyroidism Varicose vein of leg COPD (chronic obstructive pulmonary disease) GERD (gastroesophageal reflux disease) Frequent headaches Afib Hyperlipidemia Hypertension Surgical History Surgical History History of colectomy H/O arthroscopy of knee both knees, meniscectomy History of foot surgery History of tonsillectomy Family History Family History Mother Family history of malignant neoplasm of breast in first degree relative Father Family history of throat cancer Family history of malignant neoplasm Other Family history of arthritis Social History Social History Social History: Patient stated she socially smokes. Smoking packs per day: 1 Smoking cigarettes per day: 20.0 Years smoked: 30 Smoking pack-years: 30.00 Smoking status: Former smoker Second hand tobacco smoke exposure: Yes Alcohol intake: never Substance use: never Substance use type: does not use Do You Feel Safe in your Home?: Yes Lack of Transportation: No Lack of Food: Never True Current Housing: I Have Housing Concerned About Future Housing: No Difficulty Paying Gas/Electric Bills: YES Difficulty Paying for Meds: No Currently Unemployed: No Education: High School Diploma/GED Difficulty w/ Childcare or Family Care: No Living arrangements: alone Occupation/Education: retired Gender identity (if verbalized by the patient): Female Spiritual care concerns: No Meds Home Medications and Allergies Home Medications ?Medication ?Instructions ?Recorded ?Confirmed ?Type dupilumab 300 mg/2 mL subcutaneous 300 mg subcut .biweekly 03/02/19 03/27/24 History syringe (Dupixent) ascorbic acid (vitamin C) 1,000 mg 1 g PO DAILY 02/28/22 03/27/24 History capsule calcium carbonate (Calcium 600) 600 mg PO DAILY 05/07/22 03/27/24 History fluticasone 100 mcg-salmeterol 50 1 inh inhalation Q12H #60 ea 01/20/24 03/27/24 Rx mcg/dose blistr powdr for inhalation (Wixela Inhub) atorvastatin 40 mg tablet 40 mg PO DAILY #30 tabs 01/25/24 03/27/24 Rx furosemide 40 mg tablet 40 mg PO DAILY #30 tabs 01/25/24 03/27/24 Rx metoprolol succinate 50 mg 50 mg PO QAM #30 tabs 01/25/24 03/27/24 Rx tablet,extended release 24 hr buspirone 5 mg tablet 5 mg PO BID #60 tabs 01/29/24 03/27/24 Rx amlodipine 5 mg tablet See Rx Instructions .Route 02/17/24 03/27/24 Rx .COMPLEX #90 tabs levothyroxine 75 mcg tablet See Rx Instructions .Route 02/19/24 03/27/24 Rx .COMPLEX #90 tabs amiodarone 200 mg tablet 200 mg PO Q24H 03/27/24 03/27/24 History potassium chloride 20 mEq 20 meq PO BID 03/27/24 03/27/24 History tablet,extended release warfarin 2 mg tablet 4 mg PO .evening 03/27/24 03/27/24 History Allergies Allergy/AdvReac Type Severity Reaction Status Date / Time No Known Allergies Allergy Verified 01/29/24 16:06 Vital Signs Vital Signs - 24 hr 03/26/24 19:44 03/26/24 20:21 03/26/24 22:15 Temperature 97.9 F 97.6 F Pulse Rate 108 H Pulse Rate [Monitor] 112 H Respiratory Rate 16 28 H Blood Pressure 148/79 H Blood Pressure [Left Arm] Pulse Oximetry 96 95 100 Oxygen Delivery Nasal Cannula Non-Rebreather Mask Oxygen Flow Rate 4 15 03/26/24 22:30 03/26/24 22:45 03/26/24 23:00 Temperature Pulse Rate Pulse Rate [Monitor] 135 H 100 108 H Respiratory Rate 28 H 23 H 18 Blood Pressure Blood Pressure [Left Arm] 103/61 114/76 146/97 H Pulse Oximetry 98 100 97 Oxygen Delivery Non-Rebreather Mask Non-Rebreather Mask Oxygen Flow Rate 15 15 03/26/24 23:15 03/26/24 23:30 03/26/24 23:40 Temperature 97.5 F L Pulse Rate Pulse Rate [Monitor] 107 H 109 H Respiratory Rate 18 21 H 24 H Blood Pressure Blood Pressure [Left Arm] 146/95 H 145/90 H 131/78 Pulse Oximetry 93 100 100 Oxygen Delivery Nasal Cannula Non-Rebreather Mask Non-Rebreather Mask Oxygen Flow Rate 15 15 15 03/26/24 23:45 03/27/24 03:33 03/27/24 05:33 Temperature Pulse Rate 96 96 Pulse Rate [Monitor] 108 H Respiratory Rate 24 H 23 H 19 Blood Pressure 132/76 119/60 Blood Pressure [Left Arm] 131/78 Pulse Oximetry 100 100 100 Oxygen Delivery Non-Rebreather Mask Oxygen Flow Rate 15 03/27/24 05:37 03/27/24 06:34 03/27/24 07:00 Temperature 98.0 F Pulse Rate 96 95 Pulse Rate [Monitor] Respiratory Rate 19 18 Blood Pressure 119/60 119/77 Blood Pressure [Left Arm] Pulse Oximetry 100 100 96 Oxygen Delivery Nasal Cannula Oxygen Flow Rate 2 Exam Narrative: APPEARANCE: Patient in florid Respiratory distress Head: atraumatic. EYES: EOMI, NOSE: Atraumatic NECK/back: Tenderness palpation over the right posterior thorax, AP and lateral loading of the ribcage RESPIRATORY: Tachypneic, decreased lung sounds on the right side CARDIOVASCULAR: Tachycardic ABDOMINAL: Soft nontender MUSCULOSKELETAl: No obvious deformities, head to toe trauma exam revealed tenderness over the right thorax but no other injuries. NEURO: Alert. Moving 4/4 extremities SKIN:: Warm, dry. Normal color PSYCHIATRIC: Normal affect H&P: Results Labs Labs: Short CBC 03/26/24 Range/Units 21:28 WBC 14.9 H (4.5-10.0) K/mm3 Hgb 14.4 (12.0-15.0) g/dL Hct 44.9 (37.0-47.0) % Plt Count 221 (150-375) k/mm3 BMP 03/26/24 21:28 Sodium 139 Potassium 4.3 Chloride 98 Carbon Dioxide 28 BUN 27 H Creatinine 0.88 Glucose 122 H Calcium 9.3 Liver Function 03/26/24 Range/Units 21:28 Total Bilirubin 0.8 (0.2-1.3) mg/dL AST 31 (14-36) U/L ALT 25 (6-35) U/L Alkaline Phosphatase 154 H (38-126) U/L Albumin 4.5 (3.5-5.1) g/dL Urine 03/27/24 Range/Units 00:56 Urine Color Yellow (Yellow) Urine Appearance Clear (Clear) Urine pH 5.5 (5.0-9.0) Ur Specific [place] 1.019 (1.001-1.035) Urine Protein Negative (Negative) mg/dL Urine Glucose (UA) Negative (Negative) mg/dL Assessment and Plan Assessment and plan (1) Pneumothorax: Code(s): J93.9 - Pneumothorax, unspecified Status: Acute (2) MARC (obstructive sleep apnea): Code(s): G47.33 - Obstructive sleep apnea (adult) (pediatric) Status: Acute (3) Chronic respiratory failure: Qualifiers: Respiratory failure complication: hypoxia Qualified Code(s): J96.11 - Chronic respiratory failure with hypoxia Code(s): J96.10 - Chronic respiratory failure, unspecified whether with hypoxia or hypercapnia Status: Acute (4) COPD (chronic obstructive pulmonary disease): Qualifiers: COPD type: unspecified COPD Qualified Code(s): J44.9 - Chronic obstructive pulmonary disease, unspecified Code(s): J44.9 - Chronic obstructive pulmonary disease, unspecified Status: Acute (5) Closed rib fracture: Code(s): S22.39XA - Fracture of one rib, unspecified side, initial encounter for closed fracture Status: Acute (6) GERD (gastroesophageal reflux disease): Qualifiers: Esophagitis presence: without esophagitis Qualified Code(s): K21.9 - Gastro-esophageal reflux disease without esophagitis Code(s): K21.9 - Gastro-esophageal reflux disease without esophagitis Status: Acute (7) Hypothyroidism: Qualifiers: Hypothyroidism type: acquired Qualified Code(s): E03.9 - Hypothyroidism, unspecified Code(s): E03.9 - Hypothyroidism, unspecified Status: Acute (8) Hyperlipidemia: Qualifiers: Hyperlipidemia type: elevated lipoprotein(a) Qualified Code(s): E78.41 - Elevated Lipoprotein(a) Code(s): E78.5 - Hyperlipidemia, unspecified Status: Acute (9) Afib: Qualifiers: Atrial fibrillation type: unspecified Qualified Code(s): I48.91 - Unspecified atrial fibrillation Code(s): I48.91 - Unspecified atrial fibrillation Status: Acute (10) CHF (congestive heart failure): Qualifiers: Heart failure chronicity: unspecified Heart failure type: unspecified Qualified Code(s): I50.9 - Heart failure, unspecified Code(s): I50.9 - Heart failure, unspecified Status: Acute (11) Hypertension: Qualifiers: Hypertension type: primary hypertension Qualified Code(s): I10 - Essential (primary) hypertension Code(s): I10 - Essential (primary) hypertension Status: Acute Plan This is an 88-year-old female presented to the ER after ground level fall. She was getting something out of a cabinet when she lost her balance and fell backwards hitting a chair. She had pain in her right back. She then developed shortness of breath. She came to the ER to be evaluated. She denies head trauma loss of consciousness. She has been ambulatory since the incident. Patient is supposed to be on anticoagulation for atrial fibrillation but ran out of her Eliquis 4 days ago. She has been prescribed Coumadin by her home planning consultant salesperson but has not started taking Patient was in severe respiratory distress on arrival to the ER was placed on non-rebreather mask. Stat chest x-ray while she was in the lobby was which showed acute pneumothorax. She was brought to the ER abruptly and a needle decompression was performed for suspected tension pneumothorax the 2nd intercostal space on the right significant dickerson air. Subsequently a 16 [place] chest tube was placed on the right side without complication. EKG showed atrial fibrillation with rapid ventricular rate with rate of [address]-T changes. Laboratory workup showed WBC 14.9 hemoglobin of 14.4 platelet of 221. Chem panel was unremarkable. Urinalysis is negative. Influenza RSV/COVID swab is negative. Subsequently she had a CT chest performed which showed right-sided pneumothorax with subcutaneous air along the right anterolateral chest wall and posterior medial chest wall. Left lung is fully inflated. There is also acute posterior medial right-sided 5th rib fracture present likely source of pneumothorax. Subcutaneous air is also detected. Heart is enlarged without pericardial effusion. Small right-sided pleural fluid likely blood products. No additional rib fractures sternal fracture noted. Subsequent x-ray post chest tube placement revealed right-sided chest tube in excellent position with full expansion of the right lung. She also had head CT performed which did not have any acute intracranial abnormality. Cervical CT scan showed straightening and slight reversal of the normal curvature of the cervical spine likely muscular in origin. Significant degenerative disease without acute fracture noted. Repeat chest x-ray this a.m. showed right-sided chest tube without visible pneumothorax with possible minimal interstitial edema. General surgery consulted for chest tube management. COPD chronic hypoxic respiratory failure on home oxygen MARC Congestive heart failure Atrial fibrillation history of cardioversion in the past on amiodarone and metoprolol Pulmonary hypertension Hypothyroidism Hypertension Hyperlipidemia GERD Varicose vein Osteoarthritis Anticoagulation with Eliquis DVT prophylaxis currently on warfarin INR is subtherapeutic. She is being switched from Eliquis to warfarin seems coverage issue. Will restart warfarin. Code status full code Hospitalist [facility] Advance Care Plan I have confirmed that the patient's Advanced Care Plan is present, code status is documented, or surrogate decision maker is listed in patient medical record.: Yes Medication Reconciliation I have utilized all available resources to obtain, update and review the patients current medications (includes all prescriptions, OTC, herbals, cannabis, and nutritional supplements).: Yes
[2024-03-27 08:29] LABS: Anion Gap 7 mmol/L (4-12); Blood Urea Nitrogen 28 mg/dL (7-17); Calcium 8.5 mg/dL (8.4-10.2); Carbon Dioxide 31 mmol/L (22-30); Chloride 100 mmol/L (98-107); Estimated CRCL calculation 45 ml/min; Estimated Glomerular Filt Rate > 60; Glucose 103 mg/dL (65-110); Magnesium 1.8 mg/dL (1.6-2.3); Potassium 4.6 mmol/L (3.4-5.0); Sodium 138 mmol/L (137-145)
[2024-03-27] MEDS: MORPHINE SULFATE (*CRX) 2 MG/ML INJ IV PUSH ×3 (08:44→20:32)
[2024-03-27 10:21] LABS: INR 1.1; Prothrombin Time 14.7 Seconds (11.1-14.7)
[2024-03-27] MEDS: CALCIUM CARBONATE (OSCAL) 500 MG TABLET PO (11:17)
[2024-03-27] MEDS: AMIODARONE HCL 200 MG TABLET PO (11:17)
[2024-03-27] MEDS: ATORVASTATIN 40 MG TABLET PO (11:18)
[2024-03-27] MEDS: POTASSIUM CHLORIDE 20 MEQ ER TABLET PO ×2 (11:18→17:10)
[2024-03-27] MEDS: METOPROLOL SUCCINATE EXT REL 50 MG TABCR PO (11:18)
[2024-03-27] MEDS: ASCORBIC ACID 500 MG TABLET 1000 MG PO (11:19)
[2024-03-27] MEDS: amLODIPine BESYLATE 5 MG TABLET BY MOUTH (11:19)
[2024-03-27] MEDS: busPIRone HCL 5 MG TABLET PO ×2 (11:19→17:10)
[2024-03-27] MEDS: FUROSEMIDE 40 MG TABLET PO (11:20)
[2024-03-27] MEDS: traMADol HCL (*CRX) 50 MG TABLET PO (13:28)
[2024-03-27] MEDS: WARFARIN (*PBKC) 2 MG TABLET 4 MG PO (17:11)
[2024-03-27] MEDS: FLUTICASONE/SALMETEROL 45-21 MCG INHALER 1 PUFF 2 PUFF INHALATION (21:02)
--- NOTE | 2024-03-27 22:28 | WPDCN ---
Assessment and Plan Assessment and plan (1) Pneumothorax: Code(s): J93.9 - Pneumothorax, unspecified Status: Acute Assessment and Plan: Patient developed a tension right pneumothorax after falling and suffering right rib fracture causing the traumatic pneumothorax. Needle decompression of the right chest and then a formal right chest tube was placed in the emergency room by the emergency room physician. She is doing well today. No shortness of breath the symptoms. Chest x-ray this morning shows full expansion of the right lung without evidence of recurrent pneumothorax. We will plan on leaving her chest tube to suction for least another 24hours. At that time and consider placing the right chest tube to water seal for 24hours to some see if the lung was stay re-expanded. Repeat chest x-ray tomorrow morning. Nonsteroidal anti-inflammatory medications and narcotic pain medicines as needed for rib fracture pain. Surgery continues to follow. HPI Data of Consult Date/Time: 03/27/24 22:28 Requesting Physician: Minna Prince MD Primary Care Provider: Paulina Houser APRN Consult Narrative Reason for consult: Right tension pneumothorax secondary to fall and rib fracture Narrative: Kanchan Abbott is a 88 year old female presented to the emergency room complaining of shortness of breath after falling at home from ground level on her back. She was having right back pain as well as shortness of breath. In the emergency room waiting room she started to deteriorate and become very symptomatic with shortness of breath. Stat chest x-ray was obtained and appears she had a tension pneumothorax. She was quickly brought back to the ER exam room and a needle decompression of the right chest was performed by the emergency room physician. This improved the patient's breathing and then a formal left chest tube was placed by the emergency room physician. Postprocedure chest x-ray revealed full expansion of the right lung. Chest tube was in the proper position. Patient was admitted to surgical floor to the medicine service. I am asked to evaluate the patient and manage the right chest tube. Today the patient is doing well. She denies any shortness of breath. She does have some pain from her right rib fracture and pain where the chest tube inserted into the chest wall. Review of Systems Review of Systems: The remainder of the review of systems to include constitutional, HEENT, cardiovascular, respiratory, GI, , integumentary, musculoskeletal, endocrine, immunologic, hematologic, psychiatric, and neurologic are all negative except for which is mentioned above in the HPI. 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 Osteopenia Degenerative arthritis of knee, bilateral Basal cell carcinoma Vertigo Hearing loss Atrial tachycardia from anesthesia Blood in stool Bowel habit changes Hypothyroidism Varicose vein of leg COPD (chronic obstructive pulmonary disease) GERD (gastroesophageal reflux disease) Frequent headaches Afib Hyperlipidemia Hypertension Surgical History Surgical History History of colectomy H/O arthroscopy of knee both knees, meniscectomy History of foot surgery History of tonsillectomy Family History Family History Mother Family history of malignant neoplasm of breast in first degree relative Father Family history of throat cancer Family history of malignant neoplasm Other Family history of arthritis Social History Social History Social History: Patient stated she socially smokes. Smoking packs per day: 1 Smoking cigarettes per day: 20.0 Years smoked: 30 Smoking pack-years: 30.00 Smoking status: Former smoker Second hand tobacco smoke exposure: Yes Alcohol intake: never Substance use: never Substance use type: does not use Do You Feel Safe in your Home?: Yes Lack of Transportation: No Lack of Food: Never True Current Housing: I Have Housing Concerned About Future Housing: No Difficulty Paying Gas/Electric Bills: YES Difficulty Paying for Meds: No Currently Unemployed: No Education: High School Diploma/GED Difficulty w/ Childcare or Family Care: No Living arrangements: alone Occupation/Education: retired Gender identity (if verbalized by the patient): Female Spiritual care concerns: No Meds Home Medications and Allergies Home Medications ?Medication ?Instructions ?Recorded ?Confirmed ?Type dupilumab 300 mg/2 mL subcutaneous 300 mg subcut .biweekly 03/02/19 03/27/24 History syringe ([employer]) ascorbic acid (vitamin C) 1,000 mg 1 g PO DAILY 02/28/22 03/27/24 History capsule calcium carbonate (Calcium 600) 600 mg PO DAILY 05/07/22 03/27/24 History fluticasone 100 mcg-salmeterol 50 1 inh inhalation Q12H #60 ea 01/20/24 03/27/24 Rx mcg/dose blistr powdr for inhalation (Ivettxela Inhub) atorvastatin 40 mg tablet 40 mg PO DAILY #30 tabs 01/25/24 03/27/24 Rx furosemide 40 mg tablet 40 mg PO DAILY #30 tabs 01/25/24 03/27/24 Rx metoprolol succinate 50 mg 50 mg PO QAM #30 tabs 01/25/24 03/27/24 Rx tablet,extended release 24 hr buspirone 5 mg tablet 5 mg PO BID #60 tabs 01/29/24 03/27/24 Rx amlodipine 5 mg tablet See Rx Instructions .Route 02/17/24 03/27/24 Rx .COMPLEX #90 tabs levothyroxine 75 mcg tablet See Rx Instructions .Route 02/19/24 03/27/24 Rx .COMPLEX #90 tabs amiodarone 200 mg tablet 200 mg PO Q24H 03/27/24 03/27/24 History potassium chloride 20 mEq 20 meq PO BID 03/27/24 03/27/24 History tablet,extended release warfarin 2 mg tablet 4 mg PO .evening 03/27/24 03/27/24 History Allergies Allergy/AdvReac Type Severity Reaction Status Date / Time No Known Allergies Allergy Verified 01/29/24 16:06 Vital Signs Vital Signs - 24 hr 03/26/24 22:30 03/26/24 22:45 03/26/24 23:00 Temperature Pulse Rate Pulse Rate [Monitor] 135 H 100 108 H Respiratory Rate 28 H 23 H 18 Blood Pressure Blood Pressure [Left Arm] 103/61 114/76 146/97 H Pulse Oximetry 98 100 97 Oxygen Delivery Non-Rebreather Mask Non-Rebreather Mask Oxygen Flow Rate 15 15 03/26/24 23:15 03/26/24 23:30 03/26/24 23:40 Temperature 36.4 C L Pulse Rate Pulse Rate [Monitor] 107 H 109 H Respiratory Rate 18 21 H 24 H Blood Pressure Blood Pressure [Left Arm] 146/95 H 145/90 H 131/78 Pulse Oximetry 93 100 100 Oxygen Delivery Nasal Cannula Non-Rebreather Mask Non-Rebreather Mask Oxygen Flow Rate 15 15 15 03/26/24 23:45 02/07/25 03:33 03/27/24 05:33 Temperature Pulse Rate 96 96 Pulse Rate [Monitor] 108 H Respiratory Rate 24 H 23 H 19 Blood Pressure 132/76 119/60 Blood Pressure [Left Arm] 131/78 Pulse Oximetry 100 100 100 Oxygen Delivery Non-Rebreather Mask Oxygen Flow Rate 15 03/27/24 05:37 03/27/24 06:34 03/27/24 07:00 Temperature 36.7 C Pulse Rate 96 95 Pulse Rate [Monitor] Respiratory Rate 19 18 Blood Pressure 119/60 119/77 Blood Pressure [Left Arm] Pulse Oximetry 100 100 96 Oxygen Delivery Nasal Cannula Oxygen Flow Rate 2 03/27/24 08:00 03/27/24 08:00 03/27/24 11:17 Temperature Pulse Rate 95 71 Pulse Rate [Monitor] Respiratory Rate Blood Pressure Blood Pressure [Left Arm] Pulse Oximetry 99 Oxygen Delivery Nasal Cannula Oxygen Flow Rate 2 03/27/24 11:18 03/27/24 12:00 03/27/24 14:00 Temperature 36.5 C Pulse Rate 71 81 84 Pulse Rate [Monitor] Respiratory Rate 18 Blood Pressure 113/64 Blood Pressure [Left Arm] Pulse Oximetry 97 Oxygen Delivery Oxygen Flow Rate 03/27/24 16:00 03/27/24 21:01 03/27/24 21:05 Temperature 36.6 C Pulse Rate 87 73 Pulse Rate [Monitor] Respiratory Rate 20 Blood Pressure 128/71 Blood Pressure [Left Arm] Pulse Oximetry 95 94 Oxygen Delivery Nasal Cannula Oxygen Flow Rate 2 Exam Const: General: comfortable and no acute distress HENMT: Ears: TM's normal bilaterally Face/Nose/Sinus: Normal nares present Mouth: Yes moist mucous membranes Eyes: General: appearance normal, both eyes and all related structures Sclera: sclerae normal Pupils: Equal, round and reactive pupils present EOM: EOMs intact bilaterally Neck: Neck: supple and no JVD Resp: Effort & Inspection: normal respiratory effort Auscultation: clear to auscultation bilaterally Other: Fourteen Mexican right chest tube in place on the right anterior axillary line approximately the 5th intercostal space. There is no air leak in the water seal chamber of the Pleur-evac with cough. Chest tube site Dressing is dry and intact. GI: GI Palp: Yes Soft to palpation, No Firmness to palpation present (GI), No Tenderness to palpation present (GI), No Guarding due to palpation present (GI) and No Hernia present Results Labs 03/27/24 07:56 03/27/24 07:56 Labs: Short CBC 03/26/24 03/27/24 Range/Units 21:28 07:56 WBC 14.9 H 10.5 H (4.5-10.0) K/mm3 Hgb 14.4 12.4 (12.0-15.0) g/dL Hct 44.9 39.7 (37.0-47.0) % Plt Count 221 162 (150-375) k/mm3 BMP 03/26/24 03/27/24 21:28 07:56 Sodium 139 138 Potassium 4.3 4.6 Chloride 98 100 Carbon Dioxide 28 31 H BUN 27 H 28 H Creatinine 0.88 0.86 Glucose 122 H 103 Calcium 9.3 8.5 Liver Function 03/26/24 Range/Units 21:28 Total Bilirubin 0.8 (0.2-1.3) mg/dL AST 31 (14-36) U/L ALT 25 (6-35) U/L Alkaline Phosphatase 154 H (38-126) U/L Albumin 4.5 (3.5-5.1) g/dL Urine 03/27/24 Range/Units 00:56 Urine Color Yellow (Yellow) Urine Appearance Clear (Clear) Urine pH 5.5 (5.0-9.0) Ur Specific [place] 1.019 (1.001-1.035) Urine Protein Negative (Negative) mg/dL Urine Glucose (UA) Negative (Negative) mg/dL
[2024-03-28] VITALS (14 sets, daily range): BP systolic 100–132; BP diastolic 60–81; PULSE 71–98; RESP 14–22; TEMP 36.6–37.2; O2SAT 91–98
[2024-03-28] MEDS: MORPHINE SULFATE (*CRX) 2 MG/ML INJ IV PUSH (05:29)
[2024-03-28] MEDS: LEVOTHYROXINE SODIUM 75 MCG TABLET BY MOUTH (05:32)
[2024-03-28 07:38] LABS: INR 1.2
[2024-03-28] MEDS: FLUTICASONE/SALMETEROL 45-21 MCG INHALER 1 PUFF 2 PUFF INHALATION ×2 (08:10→20:44)
--- NOTE | 2024-03-28 09:40 | WPDPN ---
Progress Note: A&P Assessment and Plan (1) Pneumothorax: Code(s): J93.9 - Pneumothorax, unspecified Status: Acute Assessment and Plan: Traumatic right pneumothorax due to fall and rib fracture. No evidence of recurrent pneumothorax on chest x-ray this morning. The chest tube is on suction this morning. We will go ahead and place the right chest tube to water seal today and get a chest x-ray in 4hours. If there is no recurrent pneumothorax then the the chest tube to water seal all day today. Hopefully can get the chest tube out tomorrow and hopefully home tomorrow. Subjective Date/time seen: 03/28/24 09:40 Interval history: Patient complains having low more right-sided chest pain today mostly on her chest wall where her rib fracture is. No shortness of breath. Chest x-ray this morning showed no evidence of recurrent pneumothorax with the right chest tube in good position. Chest tube remains to Pleur-evac suction today. Otherwise she is doing well. Exam Resp: Other: Clear breath sounds bilaterally. Equal breath sounds. Right chest tube in place and dressing is dry and intact. No air leak with cough. Objective Data Vital Signs Vital Signs: Vital Signs - 24 hr 03/27/24 11:17 03/27/24 11:18 03/27/24 12:00 Temperature Pulse Rate 71 71 81 Respiratory Rate Blood Pressure Pulse Oximetry Oxygen Delivery Oxygen Flow Rate 03/27/24 14:00 03/27/24 16:00 03/27/24 20:00 Temperature 36.5 C Pulse Rate 84 87 86 Respiratory Rate 18 Blood Pressure 113/64 Pulse Oximetry 97 Oxygen Delivery Oxygen Flow Rate 03/27/24 21:01 03/27/24 21:05 03/28/24 00:00 Temperature 36.6 C Pulse Rate 73 83 Respiratory Rate 20 Blood Pressure 128/71 Pulse Oximetry 95 94 Oxygen Delivery Nasal Cannula Oxygen Flow Rate 2 03/28/24 04:00 03/28/24 05:57 03/28/24 08:18 Temperature 36.6 C Pulse Rate 83 98 Respiratory Rate 18 Blood Pressure 132/65 Pulse Oximetry 92 94 Oxygen Delivery Nasal Cannula Oxygen Flow Rate 1 03/28/24 08:18 Temperature Pulse Rate 71 Respiratory Rate 20 Blood Pressure Pulse Oximetry Oxygen Delivery Oxygen Flow Rate Intake/Output Intake/Output: Intake & Output 03/25/24 03/26/24 03/27/2408/25 23:59 23:59 23:59 23:59 Intake Total 50 480 490 Output Total 750 700 Balance 50 -270 -210 Meds/Results Medications: Active Medications Generic Name Dose Route Start Last Admin Trade Name Freq PRN Reason Stop Dose Admin Acetaminophen 1,000 mg 03/28/24 09:37 Acetaminophen 500 Mg Tablet PO Q6H PRN Mild Pain (1-3) or Fever Hydrocodone Bitart/Acetaminophen 1 tab 03/28/24 09:33 Hydrocodone/Acetaminophen (*Crx) 5-325 Mg Tablet PO Q4H PRN Pain Rated 4-6 Amiodarone HCl 200 mg 03/27/24 09:00 03/27/24 11:17 Amiodarone Hcl 200 Mg Tablet PO 200 mg DAILY MIGUEL Administration Amlodipine Besylate 5 mg 03/27/24 09:00 03/27/24 11:19 Amlodipine Besylate 5 Mg Tablet BY MOUTH 5 mg DAILY MIGUEL Administration Ascorbic Acid 1,000 mg 03/27/24 09:00 03/27/24 11:19 Ascorbic Acid 500 Mg Tablet PO 1,000 mg QAM MIGUEL Administration Atorvastatin Calcium 40 mg 03/27/24 09:00 03/27/24 11:18 Atorvastatin 40 Mg Tablet PO 40 mg DAILY MIGUEL Administration Buspirone HCl 5 mg 03/27/24 09:00 03/27/24 17:10 Buspirone Hcl 5 Mg Tablet PO 5 mg BID MIGUEL Administration Calcium Carbonate 500 mg 03/27/24 09:00 03/27/24 11:17 Calcium Carbonate (Oscal) 500 Mg Tablet PO 500 mg QAM MIGUEL Administration Furosemide 40 mg 03/27/24 09:00 03/27/24 11:20 Furosemide 40 Mg Tablet PO 40 mg DAILY MIGULE Administration Hydromorphone HCl 0.5 mg 03/28/24 09:33 Hydromorphone Hcl Inj (*Crx) 1 Mg/Ml Syr IV PUSH Q3H PRN Pain Rated 7-10 Levothyroxine Sodium 75 mcg 03/28/24 06:30 03/28/24 05:32 Levothyroxine Sodium 75 Mcg Tablet BY MOUTH 75 mcg DAILY@0630 MIGUEL Administration Metoprolol Succinate 50 mg 03/27/24 09:00 03/27/24 11:18 Metoprolol Succinate Ext Rel 50 Mg Tabcr PO 50 mg QAM MIGUEL Administration Miscellaneous Information 1 each 03/27/24 00:01 Dupixet Nonformulary. Can We Hold Till Discharge? XX 04/26/24 00:00 CLARIFY MIGUEL Non-Formulary Medication 300 mg 03/27/24 08:45 Dupilumab [Dupixent Syringe] SUB-Q 04/26/24 08:44 .biweekly MIGUEL Oxycodone HCl 5 mg 03/28/24 09:33 Oxycodone Hcl (*Crx) 5 Mg Tab Ir PO Q4H PRN Pain Rated 7-10 Potassium Chloride 20 meq 03/27/24 09:00 03/27/24 17:10 Potassium Chloride 20 Meq Er Tablet PO 20 meq BID MIGUEL Administration Fluticasone/Salmeterol 2 puff 03/27/24 20:00 03/28/24 08:10 Fluticasone/Salmeterol 45-21 Mcg Inhaler 1 Puff INHALATION 2 puff Q12HRT MIGUEL Administration Warfarin Sodium 4 mg 03/27/24 18:00 03/27/24 17:11 Warfarin (*Pbkc) 2 Mg Tablet PO 4 mg EVENING MIGUEL Administration Radiology Results: ITS Impressions Chest CT 03/26/24 21:50 IMPRESSION: Redemonstration of a right-sided pneumothorax, approximately 15-20% in size with a right posterior medial fifth rib fracture. Head CT 03/26/24 23:09 Impression: No acute intracranial hemorrhage or suspicious mass effect. Cervical Spine CT 03/26/24 23:13 Impression: Straightening and slight reversal of the normal curvature of the cervical spine, likely muscular in origin. Significant degenerative disease, without acute fracture. Chest X-Ray 03/28/24 07:00 IMPRESSION: 1. No pneumothorax. Right-sided chest tube in expected position. 2. Mild atelectasis in right mid and lower lung zones and left lower lung zone. 3. Cardiomegaly. Labs Labs: Laboratory Results - last 24 hr 03/27/24 03/28/24 09:14 06:12 PT 14.7 16.0 H INR 1.1 1.2
[2024-03-28] MEDS: HYDROmorphone HCL INJ (*CRX) 1 MG/ML SYR 0.5 MG IV PUSH ×2 (10:09→22:05)
[2024-03-28] MEDS: FUROSEMIDE 40 MG TABLET PO (10:32)
[2024-03-28] MEDS: CALCIUM CARBONATE (OSCAL) 500 MG TABLET PO (10:32)
[2024-03-28] MEDS: ASCORBIC ACID 500 MG TABLET 1000 MG PO (10:32)
[2024-03-28] MEDS: amLODIPine BESYLATE 5 MG TABLET BY MOUTH (10:33)
[2024-03-28] MEDS: AMIODARONE HCL 200 MG TABLET PO (10:33)
[2024-03-28] MEDS: ATORVASTATIN 40 MG TABLET PO (10:33)
[2024-03-28] MEDS: busPIRone HCL 5 MG TABLET PO ×2 (10:33→17:17)
[2024-03-28] MEDS: METOPROLOL SUCCINATE EXT REL 50 MG TABCR PO (10:34)
[2024-03-28] MEDS: POTASSIUM CHLORIDE 20 MEQ ER TABLET PO ×2 (10:37→17:17)
--- NOTE | 2024-03-28 12:42 | PM.IMPN ---
Progress Note: A&P Assessment and Plan (1) Pneumothorax: Code(s): J93.9 - Pneumothorax, unspecified Status: Acute (2) MARC (obstructive sleep apnea): Code(s): G47.33 - Obstructive sleep apnea (adult) (pediatric) Status: Acute (3) Chronic respiratory failure: Qualifiers: Respiratory failure complication: hypoxia Qualified Code(s): J96.11 - Chronic respiratory failure with hypoxia Code(s): J96.10 - Chronic respiratory failure, unspecified whether with hypoxia or hypercapnia Status: Acute (4) COPD (chronic obstructive pulmonary disease): Qualifiers: COPD type: unspecified COPD Qualified Code(s): J44.9 - Chronic obstructive pulmonary disease, unspecified Code(s): J44.9 - Chronic obstructive pulmonary disease, unspecified Status: Acute (5) Closed rib fracture: Code(s): S22.39XA - Fracture of one rib, unspecified side, initial encounter for closed fracture Status: Acute (6) GERD (gastroesophageal reflux disease): Qualifiers: Esophagitis presence: without esophagitis Qualified Code(s): K21.9 - Gastro-esophageal reflux disease without esophagitis Code(s): K21.9 - Gastro-esophageal reflux disease without esophagitis Status: Acute (7) Hypothyroidism: Qualifiers: Hypothyroidism type: acquired Qualified Code(s): E03.9 - Hypothyroidism, unspecified Code(s): E03.9 - Hypothyroidism, unspecified Status: Acute (8) Hyperlipidemia: Qualifiers: Hyperlipidemia type: elevated lipoprotein(a) Qualified Code(s): E78.41 - Elevated Lipoprotein(a) Code(s): E78.5 - Hyperlipidemia, unspecified Status: Acute (9) Afib: Qualifiers: Atrial fibrillation type: unspecified Qualified Code(s): I48.91 - Unspecified atrial fibrillation Code(s): I48.91 - Unspecified atrial fibrillation Status: Acute (10) CHF (congestive heart failure): Qualifiers: Heart failure type: unspecified Heart failure chronicity: unspecified Qualified Code(s): I50.9 - Heart failure, unspecified Code(s): I50.9 - Heart failure, unspecified Status: Acute (11) Hypertension: Qualifiers: Hypertension type: primary hypertension Qualified Code(s): I10 - Essential (primary) hypertension Code(s): I10 - Essential (primary) hypertension Status: Acute Plan This is an 88-year-old female presented to the ER after ground level fall. She was getting something out of a cabinet when she lost her balance and fell backwards hitting a chair. She had pain in her right back. She then developed shortness of breath. She came to the ER to be evaluated. She denies head trauma loss of consciousness. She has been ambulatory since the incident. Patient is supposed to be on anticoagulation for atrial fibrillation but ran out of her Eliquis 4 days ago. She has been prescribed Coumadin by her vending route driver but has not started taking Patient was in severe respiratory distress on arrival to the ER was placed on non-rebreather mask. Stat chest x-ray while she was in the lobby was which showed acute pneumothorax. She was brought to the ER abruptly and a needle decompression was performed for suspected tension pneumothorax the 2nd intercostal space on the right significant dickerson air. Subsequently a 16 [place] chest tube was placed on the right side without complication. EKG showed atrial fibrillation with rapid ventricular rate with rate of [address]-T changes. Laboratory workup showed WBC 14.9 hemoglobin of 14.4 platelet of 221. Chem panel was unremarkable. Urinalysis is negative. Influenza RSV/COVID swab is negative. Subsequently she had a CT chest performed which showed right-sided pneumothorax with subcutaneous air along the right anterolateral chest wall and posterior medial chest wall. Left lung is fully inflated. There is also acute posterior medial right-sided 5th rib fracture present likely source of pneumothorax. Subcutaneous air is also detected. Heart is enlarged without pericardial effusion. Small right-sided pleural fluid likely blood products. No additional rib fractures sternal fracture noted. Subsequent x-ray post chest tube placement revealed right-sided chest tube in excellent position with full expansion of the right lung. She also had head CT performed which did not have any acute intracranial abnormality. Cervical CT scan showed straightening and slight reversal of the normal curvature of the cervical spine likely muscular in origin. Significant degenerative disease without acute fracture noted. Repeat chest x-ray with no pneumo thorax showed right-sided chest tube without visible pneumothorax with possible minimal interstitial edema. General surgery consulted for chest tube management. Plan for water seal drainage today COPD chronic hypoxic respiratory failure on home oxygen MARC Congestive heart failure Atrial fibrillation history of cardioversion in the past on amiodarone and metoprolol Pulmonary hypertension Hypothyroidism Hypertension Hyperlipidemia GERD Varicose vein Osteoarthritis Anticoagulation with Eliquis DVT prophylaxis currently on warfarin INR is subtherapeutic. She is being switched from Eliquis to warfarin seems coverage issue. Will restart warfarin. Code status full code Subjective Date/time seen: 03/28/24 12:42 Interval history: Right-sided chest pain reported. No shortness of breath or chest pain. Oxygen requirement stable. Exam Narrative: APPEARANCE: Patient in the stress alert and oriented x3 Head: atraumatic. EYES: EOMI, NOSE: Atraumatic NECK/back: Tenderness palpation over the right posterior thorax, dressing in place RESPIRATORY: equal air entry no respiratory distress CARDIOVASCULAR: S1 S-2 ABDOMINAL: Soft nontender MUSCULOSKELETAl: No obvious deformities, NEURO: Alert. Moving 4/4 extremities SKIN:: Warm, dry. Normal color PSYCHIATRIC: Normal affect Objective Data Vital Signs Vital Signs: Vital Signs - 24 hr 03/27/24 14:00 03/27/24 16:00 03/27/24 20:00 Temperature 97.7 F Pulse Rate 84 87 86 Respiratory Rate 18 Blood Pressure 113/64 Pulse Oximetry 97 Oxygen Delivery Oxygen Flow Rate 03/27/24 21:01 03/27/24 21:05 03/28/24 00:00 Temperature 98 F Pulse Rate 73 83 Respiratory Rate 20 Blood Pressure 128/71 Pulse Oximetry 95 94 Oxygen Delivery Nasal Cannula Oxygen Flow Rate 2 03/28/24 04:00 03/28/24 05:57 03/28/24 08:18 Temperature 98 F Pulse Rate 83 98 Respiratory Rate 18 Blood Pressure 132/65 Pulse Oximetry 92 94 Oxygen Delivery Nasal Cannula Oxygen Flow Rate 1 03/28/24 08:18 03/28/24 10:33 03/28/24 10:34 Temperature Pulse Rate 71 85 85 Respiratory Rate 20 Blood Pressure Pulse Oximetry Oxygen Delivery Oxygen Flow Rate Intake/Output Intake/Output: Intake & Output 03/25/24 03/26/24 03/27/24 03/28/24 23:59 23:59 23:59 23:59 Intake Total 50 480 490 Output Total 642 700 Balance 50 270 -210 Meds/Results Medications: Active Medications Generic Name Dose Route Start Last Admin Trade Name Freq PRN Reason Stop Dose Admin Acetaminophen 1,000 mg 03/28/24 09:37 Acetaminophen 500 Mg Tablet PO Q6H PRN Mild Pain (1-3) or Fever Hydrocodone Bitart/Acetaminophen 1 tab 03/28/24 09:33 Hydrocodone/Acetaminophen (*Crx) 5-325 Mg Tablet PO Q4H PRN Pain Rated 4-6 Amiodarone HCl 200 mg 03/27/24 09:00 03/28/24 10:33 Amiodarone Hcl 200 Mg Tablet PO 200 mg DAILY MIGUEL Administration Amlodipine Besylate 5 mg 03/27/24 09:00 03/28/24 10:33 Amlodipine Besylate 5 Mg Tablet BY MOUTH 5 mg DAILY MIGUEL Administration Ascorbic Acid 1,000 mg 03/27/24 09:00 03/28/24 10:32 Ascorbic Acid 500 Mg Tablet PO 1,000 mg QAM MIGUEL Administration Atorvastatin Calcium 40 mg 03/27/24 09:00 03/28/24 10:33 Atorvastatin 40 Mg Tablet PO 40 mg DAILY MIGUEL Administration Buspirone HCl 5 mg 03/27/24 09:00 03/28/24 10:33 Buspirone Hcl 5 Mg Tablet PO 5 mg BID MIGUEL Administration Calcium Carbonate 500 mg 03/27/24 09:00 03/28/24 10:32 Calcium Carbonate (Oscal) 500 Mg Tablet PO 500 mg QAM MIGUEL Administration Furosemide 40 mg 03/27/24 09:00 03/28/24 10:32 Furosemide 40 Mg Tablet PO 40 mg DAILY MIGUEL Administration Hydromorphone HCl 0.5 mg 03/28/24 09:33 03/28/24 10:09 Hydromorphone Hcl Inj (*Crx) 1 Mg/Ml Syr IV PUSH 0.5 mg Q3H PRN Administration Pain Rated 7-10 Levothyroxine Sodium 75 mcg 03/28/24 06:30 03/28/24 05:32 Levothyroxine Sodium 75 Mcg Tablet BY MOUTH 75 mcg DAILY@0630 MIGUEL Administration Metoprolol Succinate 50 mg 03/27/24 09:00 03/28/24 10:34 Metoprolol Succinate Ext Rel 50 Mg Tabcr PO 50 mg QAM MIGUEL Administration Miscellaneous Information 1 each 03/27/24 00:01 Dupixet Nonformulary. Can We Hold Till Discharge? XX 04/26/24 00:00 CLARIFY MIGUEL Non-Formulary Medication 300 mg 03/27/24 08:45 Dupilumab [Dupixent Syringe] SUB-Q 04/26/24 08:44 .biweekly [facility] Oxycodone HCl 5 mg 03/28/24 09:33 Oxycodone Hcl (*Crx) 5 Mg Tab Ir PO Q4H PRN Pain Rated 7-10 Potassium Chloride 20 meq 03/27/24 09:00 03/28/24 10:37 Potassium Chloride 20 Meq Er Tablet PO 20 meq BID MIGUEL Administration Fluticasone/Salmeterol 2 puff 03/27/24 20:00 03/28/24 08:10 Fluticasone/Salmeterol 45-21 Mcg Inhaler 1 Puff INHALATION 2 puff Q12HRT MIGUEL Administration Warfarin Sodium 4 mg 03/27/24 18:00 03/27/24 17:11 Warfarin (*Pbkc) 2 Mg Tablet PO 4 mg EVENING MIGUEL Administration Radiology Results: ITS Impressions Chest CT 03/26/24 21:50 IMPRESSION: Redemonstration of a right-sided pneumothorax, approximately 15-20% in size with a right posterior medial fifth rib fracture. Head CT 03/26/24 23:09 Impression: No acute intracranial hemorrhage or suspicious mass effect. Cervical Spine CT 03/26/24 23:13 Impression: Straightening and slight reversal of the normal curvature of the cervical spine, likely muscular in origin. Significant degenerative disease, without acute fracture. Chest X-Ray 03/28/24 10:01 IMPRESSION: 1. No pneumothorax. Right-sided chest tube in expected position. 2. Small right pleural effusion. 3. Stable airspace opacities in right mid and lower lung zones and left lower lung zone, likely atelectasis. 4. Cardiomegaly. Labs Labs: Laboratory Results - last 24 hr 03/28/24 06:12 PT 16.0 H INR 1.2
[2024-03-28] MEDS: HYDROcodone/acetaminophen (*CRX) 5-325 MG TABLET 1 TAB PO ×2 (13:01→17:21)
[2024-03-28] MEDS: WARFARIN (*PBKC) 2 MG TABLET 4 MG PO (17:17)
--- NOTE | 2024-03-28 19:01 | PC.NURSE ---
On 03/28/24, the QA CONSULTANT, Sue, provided care and completed [facility] on this [facility]. I have reviewed the QA CONSULTANT's documentation and agree with the findings.
--- NOTE | 2024-03-28 21:43 | ECG_ITS ---
Test Date: 2024-03-28 21:56:47 Measurements Intervals [place] Rate: 95 P: 0 AR: 0 QRS: 1 QRSD: 100 T: 0 QT: 310 QTc: 391 Interpretive Statements ATRIAL FIBRILLATION DELAYED PRECORDIAL R/S TRANSITION LOW QRS VOLTAGE IN LIMB LEADS BORDERLINE T WAVE ABNORMALITY- INFERIOR LEADS BASELINE ARTIFACT- I, II, III, AVR, AVL, AVF, V1-V6 ABNORMAL ECG Compared to ECG 03/27/2024 00:43:41 NO SIGNIFICANT CHANGE Electronically Signed On 03-29-2024 08:05:49 SURGEON CHIEF by Shabbir Ann D.O.
--- NOTE | 2024-03-28 21:56 | ECG_ITS ---
Test Date: 2024-03-28 21:56:02 Measurements Intervals [place] Rate: 99 P: 0 CT: 0 QRS: 6 QRSD: 102 T: -60 QT: 282 QTc: 363 Interpretive Statements ATRIAL FIBRILLATION DELAYED PRECORDIAL R/S TRANSITION LOW QRS VOLTAGE IN LIMB LEADS BORDERLINE T WAVE ABNORMALITY- INFERIOR LEADS BASELINE ARTIFACT- I, III, AVR, AVL, AVF, V1-V6 ABNORMAL ECG Compared to ECG 03/27/2024 00:43:41 HEART RATE HAS DECREASED Electronically Signed On 03-29-2024 08:04:49 STORAGE BATTERY CHARGER by Shabbir Ann D.O.
[2024-03-28] MEDS: polyethylene glycoL 3350 17 GM POWD.PACK PO (22:53)
[2024-03-28] MEDS: oxyCODONE HCL (*CRX) 5 MG TAB IR PO (22:53)
[2024-03-28] MEDS: SENNA/DOCUSATE SODIUM TABLET 2 TAB PO (22:53)
[2024-03-28] MEDS: ACETAMINOPHEN 500 MG TABLET 1000 MG PO (22:54)
[2024-03-29] VITALS (14 sets, daily range): BP systolic 112–132; BP diastolic 54–74; PULSE 94–112; RESP 16–20; TEMP 37.1–37.5; O2SAT 89–96
[2024-03-29] MEDS: HYDROcodone/acetaminophen (*CRX) 5-325 MG TABLET 1 TAB PO (01:01)
--- NOTE | 2024-03-29 04:08 | ECG_ITS ---
Test Date: 2024-03-29 04:17:48 Measurements Intervals [place] Rate: 107 P: 0 TN: 0 QRS: 17 QRSD: 97 T: 236 QT: 314 QTc: 419 Interpretive Statements ATRIAL FIBRILLATION WITH RAPID VENTRICULAR RESPONSE DELAYED PRECORDIAL R/S TRANSITION LOW QRS VOLTAGE IN LIMB LEADS BASELINE ARTIFACT- I, II, III, AVR, AVL, AVF, V1-V6 ABNORMAL ECG Compared to ECG 03/28/2024 21:56:47 HEART RATE HAS INCREASED Electronically Signed On 03-29-2024 08:10:50 COAL LOADER by Shabbir Ann D.O.
[2024-03-29 04:31] LABS: Hematocrit 41.4 % (37.0-47.0); Hemoglobin 13.1 g/dL (12.0-15.0); Mean Corpuscular HGB Conc 31.6 g/dl (32-36); Mean Corpuscular Hemoglobin 29.6 pg (26-34); Mean Corpuscular Volume 93.5 fl (80-100); Mean Platelet Volume 11.3 fl (7.4-10.4); Platelet Count Result 162 k/mm3 (150-375); Red Blood Count 4.43 M/mm3 (4.2-5.4); Red Cell Distribution Width 14.3 % (11.5-14.5); White Blood Count 16.2 K/mm3 (4.5-10.0)
[2024-03-29 04:41] LABS: INR 1.5; Prothrombin Time 18.8 Seconds (11.1-14.7)
[2024-03-29 04:49] LABS: Alanine Aminotransferase 20 U/L (6-35); Alkaline Phosphatase 115 U/L (38-126); Anion Gap 8 mmol/L (4-12); Aspartate Amino Transferase 31 U/L (14-36); Bilirubin,Total 1.1 mg/dL (0.2-1.3); Blood Urea Nitrogen 24 mg/dL (7-17); Calcium 9.1 mg/dL (8.4-10.2); Carbon Dioxide 30 mmol/L (22-30); Chloride 96 mmol/L (98-107); Estimated CRCL calculation 52 ml/min; Estimated Glomerular Filt Rate > 60; Glucose 102 mg/dL (65-110); Magnesium 1.8 mg/dL (1.6-2.3); Sodium 134 mmol/L (137-145)
[2024-03-29 04:50] LABS: D Dimer 2.45 ug/mL (<0.48)
[2024-03-29 04:59] LABS: NT Pro B Type Natriuretic Pept 3850 pg/mL (19.9-100); Troponin I < 0.012 ng/mL (0.000-0.034)
[2024-03-29 05:01] LABS: Band Neutrophils Percent 2 % (0-6); Lymphocytes Absolute Manual 0.48 K/mm3 (1.1-4.5); Monocytes Absolute Manual 1.78 K/mm3 (0.1-0.90); Monocytes Percent Manual 11 % (3-9); Neutrophils Absolute Manual 13.93 K/mm3 (1.7-7.2); Neutrophils Percent Manual 84 % (46-73); Total Cells Counted 100
[2024-03-29 05:02] LABS: Anisocytosis 1+; Platelet Estimate Decreased (Adequate); Schistocytes None Seen
[2024-03-29] MEDS: oxyCODONE HCL (*CRX) 5 MG TAB IR PO ×2 (05:11→20:46)
[2024-03-29] MEDS: FUROSEMIDE INJ 40 MG/4 ML VIAL IV PUSH (05:11)
[2024-03-29] MEDS: LEVOTHYROXINE SODIUM 75 MCG TABLET BY MOUTH (05:12)
--- NOTE | 2024-03-29 05:23 | P.PNCROSS_ITS ---
Event Note Event Note Event Note: Patient complained of chest pain. EKG x2 without acute ischemia. Chest pain e ventually resolved but patient complained of shortness of breath. Patient lying flat in the bed with mild use of accessory muscles and tachypnea. She uses 3 L however was turned up to 5 L saturating 90%. She felt better when had the bed was elevated. Diffuse wet crackles greater on left. Lower extremity edema although she does not know if this is more than her usual. Last admission in January 2024 the patient was given Lasix for an elevated BNP. A 2D echocardiogram reported EF 55%. Giving Lasix [address] PE protocol ordered.
[2024-03-29] MEDS: FLUTICASONE/SALMETEROL 45-21 MCG INHALER 1 PUFF 2 PUFF INHALATION ×2 (07:37→20:15)
[2024-03-29] MEDS: CALCIUM CARBONATE (OSCAL) 500 MG TABLET PO (09:17)
[2024-03-29] MEDS: SENNA/DOCUSATE SODIUM TABLET 2 TAB PO (09:17)
[2024-03-29] MEDS: METOPROLOL SUCCINATE EXT REL 50 MG TABCR PO (09:17)
[2024-03-29] MEDS: ATORVASTATIN 40 MG TABLET PO (09:17)
[2024-03-29] MEDS: ASCORBIC ACID 500 MG TABLET 1000 MG PO (09:17)
[2024-03-29] MEDS: amLODIPine BESYLATE 5 MG TABLET BY MOUTH (09:18)
[2024-03-29] MEDS: POTASSIUM CHLORIDE 20 MEQ ER TABLET PO ×2 (09:18→18:09)
[2024-03-29] MEDS: busPIRone HCL 5 MG TABLET PO ×2 (09:18→18:10)
[2024-03-29] MEDS: FUROSEMIDE 40 MG TABLET PO (09:18)
[2024-03-29] MEDS: AMIODARONE HCL 200 MG TABLET PO (09:23)
--- NOTE | 2024-03-29 11:31 | P.PN_ITS ---
Progress Note: A&P Assessment and Plan (1) Closed rib fracture: Code(s): S22.39XA - Fracture of one rib, unspecified side, initial encounter for closed fracture Status: Acute Assessment and Plan: Fractures of the right 5th and 6th ribs. Expected management with controlled pain with pain medications. Try to perform pulmonary toilet to avoid getting pneumonia. (2) Pneumothorax: Code(s): J93.9 - Pneumothorax, unspecified Status: Acute Assessment and Plan: Right chest tube has been to water seal for [id number]. No recurrent pneumothorax seen on chest x-ray. We will go ahead and remove the right chest tube today and get a follow-up chest x-ray In 4hours. Subjective Date/time seen: 03/29/24 11:31 Interval history: Patient doing pretty well today. Clinically stable. No shortness of breath. Chest x-ray this morning with the patient on water seal for her chest tube shows no evidence of right recurrent pneumothorax. CTA of the chest revealed no recurrent pneumothorax either. Exam Resp: Other: Right chest tube in place. Dressing dry. Equal breath sounds bilaterally. Objective Data Vital Signs Vital Signs: Vital Signs - 24 hr 03/28/24 12:00 03/28/24 14:00 03/28/24 16:00 Temperature 37.2 C Pulse Rate 88 97 91 Respiratory Rate 18 Blood Pressure 100/60 Pulse Oximetry 98 Oxygen Delivery Oxygen Flow Rate 03/28/24 20:00 03/28/24 20:00 03/28/24 20:48 Temperature Pulse Rate 85 73 Respiratory Rate 18 Blood Pressure Pulse Oximetry 91 Oxygen Delivery Nasal Cannula Oxygen Flow Rate 2 03/28/24 21:17 03/28/24 21:54 03/29/24 00:00 Temperature 36.7 C 36.6 C Pulse Rate 74 97 98 Respiratory Rate 14 22 H Blood Pressure 100/64 118/81 Pulse Oximetry 92 91 Oxygen Delivery Oxygen Flow Rate 03/29/24 04:00 03/29/24 06:00 03/29/24 06:19 Temperature 37.3 C Pulse Rate 100 101 H 94 Respiratory Rate 16 16 Blood Pressure 132/74 Pulse Oximetry 89 L 91 Oxygen Delivery High Flow Nasal Cannula Oxygen Flow Rate 6 03/29/24 07:37 03/29/24 07:37 03/29/24 09:17 Temperature Pulse Rate 105 H 112 H Respiratory Rate 20 Blood Pressure Pulse Oximetry 90 Oxygen Delivery High Flow Nasal Cannula Oxygen Flow Rate 7 03/29/24 09:23 Temperature Pulse Rate 112 H Respiratory Rate Blood Pressure Pulse Oximetry Oxygen Delivery Oxygen Flow Rate Intake/Output Intake/Output: Intake & Output 03/26/24 03/27/24 03/28/24 03/29/24 23:59 23:59 23:59 23:59 Intake Total 50 480 1710 370 Output Total 750 1300 493 Balance 50 -270 410 -123 Meds/Results Medications: Active Medications Generic Name Dose Route Start Last Admin Trade Name Freq PRN Reason Stop Dose Admin Acetaminophen 1,000 mg 03/28/24 09:37 03/28/24 22:54 Acetaminophen 500 Mg Tablet PO 1,000 mg Q6H PRN Administration Mild Pain (1-3) or Fever Hydrocodone Bitart/Acetaminophen 1 tab 03/28/24 09:33 03/29/24 01:01 Hydrocodone/Acetaminophen (*Crx) 5-325 Mg Tablet PO 1 tab Q4H PRN Administration Pain Rated 4-6 Amiodarone HCl 200 mg 03/27/24 09:00 03/29/24 09:23 Amiodarone Hcl 200 Mg Tablet PO 200 mg DAILY MIGUEL Administration Amlodipine Besylate 5 mg 03/27/24 09:00 03/29/24 09:18 Amlodipine Besylate 5 Mg Tablet BY MOUTH 5 mg DAILY MIGUEL Administration Ascorbic Acid 1,000 mg 03/27/24 09:00 03/29/24 09:17 Ascorbic Acid 500 Mg Tablet PO 1,000 mg QAM MIGUEL Administration Atorvastatin Calcium 40 mg 03/27/24 09:00 03/29/24 09:17 Atorvastatin 40 Mg Tablet PO 40 mg DAILY MIGUEL Administration Buspirone HCl 5 mg 03/27/24 09:00 03/29/24 09:18 Buspirone Hcl 5 Mg Tablet PO 5 mg BID MIGUEL Administration Calcium Carbonate 500 mg 03/27/24 09:00 03/29/24 09:17 Calcium Carbonate (Oscal) 500 Mg Tablet PO 500 mg QAM MIGUEL Administration Furosemide 40 mg 03/27/24 09:00 03/29/24 09:18 Furosemide 40 Mg Tablet PO 40 mg DAILY MIGUEL Administration Hydromorphone HCl 0.5 mg 03/28/24 09:33 03/28/24 22:05 Hydromorphone Hcl Inj (*Crx) 1 Mg/Ml Syr IV PUSH 0.5 mg Q3H PRN Administration Pain Rated 7-10 Levothyroxine Sodium 75 mcg 03/28/24 06:30 03/29/24 05:12 Levothyroxine Sodium 75 Mcg Tablet BY MOUTH 75 mcg DAILY@0630 MIGUEL Administration Metoprolol Succinate 50 mg 03/27/24 09:00 03/29/24 09:17 Metoprolol Succinate Ext Rel 50 Mg Tabcr PO 50 mg QAM MIGUEL Administration Miscellaneous Information 1 each 03/27/24 00:01 03/28/24 21:50 Dupixet Nonformulary. Can We Hold Till Discharge? XX 04/26/24 00:00 Not Given [facility] Non-Formulary Medication 300 mg 03/27/24 08:45 Dupilumab [Dupixent Syringe] SUB-Q 04/26/24 08:44 .biweekly MIGUEL Oxycodone HCl 5 mg 03/28/24 09:33 03/29/24 05:11 Oxycodone Hcl (*Crx) 5 Mg Tab Ir PO 5 mg Q4H PRN Administration Pain Rated 7-10 Potassium Chloride 20 meq 03/27/24 09:00 03/29/24 09:18 Potassium Chloride 20 Meq Er Tablet PO 20 meq BID MIGUEL Administration Fluticasone/Salmeterol 2 puff 03/27/24 20:00 03/29/24 07:37 Fluticasone/Salmeterol 45-21 Mcg Inhaler 1 Puff INHALATION 2 puff Q12HRT MIGUEL Administration Senna/Docusate Sodium 2 tab 03/28/24 22:25 03/29/24 09:17 Senna/Docusate Sodium Tablet PO 2 tab BID MIGUEL Administration Warfarin Sodium 4 mg 03/27/24 18:00 03/28/24 17:17 Warfarin (*Pbkc) 2 Mg Tablet PO 4 mg EVENING MIGUEL Administration Radiology Results: ITS Impressions Chest CT 03/26/24 21:50 IMPRESSION: Redemonstration of a right-sided pneumothorax, approximately 15-20% in size with a right posterior medial fifth rib fracture. Head CT 03/26/24 23:09 Impression: No acute intracranial hemorrhage or suspicious mass effect. Cervical Spine CT 03/26/24 23:13 Impression: Straightening and slight reversal of the normal curvature of the cervical spine, likely muscular in origin. Significant degenerative disease, without acute fracture. Chest CTA 03/29/24 08:00 IMPRESSION: 1. Right chest tube in expected position with small right pleural effusion but no pneumothorax. 2. Mild emphysema with mild dependent atelectasis in both lungs. 3. Cardiomegaly with biatrial enlargement. 4. Enlargement of the central pulmonary arteries consistent with pulmonary arterial hypertension. 5. Recent-appearing nondisplaced fractures of the posterior right fifth and sixth ribs. Chest X-Ray 03/29/24 09:04 IMPRESSION: 1. Small right pleural effusion but no pneumothorax with unchanged apically directed right chest tube. 2. Mild opacities in bilateral lower lung zones which could represent atelectasis or pneumonia. 3. Cardiomegaly. Labs Labs: Laboratory Results - last 24 hr 03/29/24 03/29/24 04:24 04:24 WBC 16.2 H RBC 4.43 Hgb 13.1 Hct 41.4 MCV 93.5 MCH 29.6 MCHC 31.6 L RDW 14.3 Plt Count 162 MPV 11.3 H Immature Gran % (Auto) Not Reportable Neut % (Auto) Not Reportable Lymph % (Auto) Not Reportable [place] % (Auto) Not Reportable Eos % (Auto) Not Reportable Baso % (Auto) Not Reportable Lymph # (Auto) Not Reportable [place] # (Auto) Not Reportable Eos # (Auto) Not Reportable Baso # (Auto) Not Reportable Abs Immat Gran (auto) Not Reportable Absolute Neuts (auto) Not Reportable Absolute Nucleated RBC Not Reportable Total Counted 100 Neutrophils % (Manual) 84 H Band Neutrophils % 2 Lymphocytes % (Manual) 3.0 L Monocytes % (Manual) 11 H Nucleated RBC % Not Reportable Abs Neuts (Manual) 13.93 H Abs Lymphs (Manual) 0.48 L Abs Monocytes (Manual) 1.78 H Platelet Estimate Decreased Anisocytosis 1+ Schistocytes None seen PT 18.8 H INR 1.5 D-Dimer 2.45 H Sodium 134 L Potassium 5.0 Chloride 96 L Carbon Dioxide 30 Anion Gap 8 BUN 24 H Creatinine 0.73 Estim Creat Clear Calc 52 Estimated GFR > 60 Glucose 102 Calcium 9.1 Magnesium 1.8 Total Bilirubin 1.1 AST 31 ALT 20 Alkaline Phosphatase 115 Troponin I Cancelled < 0.012 NT-Pro-B Natriuret Pep 3850 H Total Protein 7.0 Albumin 4.0
--- NOTE | 2024-03-29 11:40 | PC.NURSE ---
Addendum entered by Brenna Raya RN 03/29/24 11:45: Chest tube suction at 20mmHg and water sealed. Original Note: Patient sitting on the side of the bed for morning assessment. Grandson in room at bedside. He is very attentive. Patient is cooperative and compliant with medication. Stat lock in place, tubing patent and draining. No complaints of pain. High low canual in place @ 7L.
--- NOTE | 2024-03-29 12:27 | PM.IMPN ---
Progress Note: A&P Assessment and Plan (1) Pneumothorax: Code(s): J93.9 - Pneumothorax, unspecified Status: Acute (2) MARC (obstructive sleep apnea): Code(s): G47.33 - Obstructive sleep apnea (adult) (pediatric) Status: Acute (3) Chronic respiratory failure: Qualifiers: Respiratory failure complication: hypoxia Qualified Code(s): J96.11 - Chronic respiratory failure with hypoxia Code(s): J96.10 - Chronic respiratory failure, unspecified whether with hypoxia or hypercapnia Status: Acute (4) COPD (chronic obstructive pulmonary disease): Qualifiers: COPD type: unspecified COPD Qualified Code(s): J44.9 - Chronic obstructive pulmonary disease, unspecified Code(s): J44.9 - Chronic obstructive pulmonary disease, unspecified Status: Acute (5) Closed rib fracture: Code(s): S22.39XA - Fracture of one rib, unspecified side, initial encounter for closed fracture Status: Acute (6) GERD (gastroesophageal reflux disease): Qualifiers: Esophagitis presence: without esophagitis Qualified Code(s): K21.9 - Gastro-esophageal reflux disease without esophagitis Code(s): K21.9 - Gastro-esophageal reflux disease without esophagitis Status: Acute (7) Hypothyroidism: Qualifiers: Hypothyroidism type: acquired Qualified Code(s): E03.9 - Hypothyroidism, unspecified Code(s): E03.9 - Hypothyroidism, unspecified Status: Acute (8) Hyperlipidemia: Qualifiers: Hyperlipidemia type: elevated lipoprotein(a) Qualified Code(s): E78.41 - Elevated Lipoprotein(a) Code(s): E78.5 - Hyperlipidemia, unspecified Status: Acute (9) Afib: Qualifiers: Atrial fibrillation type: unspecified Qualified Code(s): I48.91 - Unspecified atrial fibrillation Code(s): I48.91 - Unspecified atrial fibrillation Status: Acute (10) CHF (congestive heart failure): Qualifiers: Heart failure type: unspecified Heart failure chronicity: unspecified Qualified Code(s): I50.9 - Heart failure, unspecified Code(s): I50.9 - Heart failure, unspecified Status: Acute (11) Hypertension: Qualifiers: Hypertension type: primary hypertension Qualified Code(s): I10 - Essential (primary) hypertension Code(s): I10 - Essential (primary) hypertension Status: Acute Plan This is an 88-year-old female presented to the ER after ground level fall. She was getting something out of a cabinet when she lost her balance and fell backwards hitting a chair. She had pain in her right back. She then developed shortness of breath. She came to the ER to be evaluated. She denies head trauma loss of consciousness. She has been ambulatory since the incident. Patient is supposed to be on anticoagulation for atrial fibrillation but ran out of her Eliquis 4 days ago. She has been prescribed Coumadin by her protective clothing issuer but has not started taking Patient was in severe respiratory distress on arrival to the ER was placed on non-rebreather mask. Stat chest x-ray while she was in the lobby was which showed acute pneumothorax. She was brought to the ER abruptly and a needle decompression was performed for suspected tension pneumothorax the 2nd intercostal space on the right significant dickerson air. Subsequently a 16 Beng[place] chest tube was placed on the right side without complication. EKG showed atrial fibrillation with rapid ventricular rate with rate of [address]-T changes. Laboratory workup showed WBC 14.9 hemoglobin of 14.4 platelet of 221. Chem panel was unremarkable. Urinalysis is negative. Influenza RSV/COVID swab is negative. Subsequently she had a CT chest performed which showed right-sided pneumothorax with subcutaneous air along the right anterolateral chest wall and posterior medial chest wall. Left lung is fully inflated. There is also acute posterior medial right-sided 5th rib fracture present likely source of pneumothorax. Subcutaneous air is also detected. Heart is enlarged without pericardial effusion. Small right-sided pleural fluid likely blood products. No additional rib fractures sternal fracture noted. Subsequent x-ray post chest tube placement revealed right-sided chest tube in excellent position with full expansion of the right lung. She also had head CT performed which did not have any acute intracranial abnormality. Cervical CT scan showed straightening and slight reversal of the normal curvature of the cervical spine likely muscular in origin. Significant degenerative disease without acute fracture noted. Repeat chest x-ray with no pneumo thorax showed right-sided chest tube without visible pneumothorax with possible minimal interstitial edema. General surgery consulted for chest tube management. On water-seal drainage. Chest tube removal plan by the day General surgery today. CTA was negative for PE as well as pneumothorax. Received a dose of IV Lasix for possible congestion. COPD chronic hypoxic respiratory failure on home oxygen with acute exacerbation 03/29/2024. IV Lasix received overnight. CTA Negative for PE or pneumonia. MARC Congestive heart failure Atrial fibrillation history of cardioversion in the past on amiodarone and metoprolol Pulmonary hypertension Hypothyroidism Hypertension Hyperlipidemia GERD Varicose vein Osteoarthritis Anticoagulation with Eliquis DVT prophylaxis currently on warfarin INR is subtherapeutic. She is being switched from Eliquis to warfarin seems coverage issue. Will restart warfarin. Code status full code Subjective Date/time seen: 03/29/24 12:27 Interval history: Overnight events noted. Chest x-ray and CT head reviewed. Reports more pain in the right side of the chest today. Breathing has improved as compared to overnight. Review of Systems Review of Systems: All systems reviewed & are unremarkable except as noted in HPI and below Exam Narrative: APPEARANCE: Patient in no acute distress, alert and oriented x3 Head: atraumatic. EYES: EOMI, NOSE: Atraumatic NECK/back: Tenderness palpation over the right posterior thorax, dressing in place RESPIRATORY: equal air entry no respiratory distress CARDIOVASCULAR: S1 S-2 ABDOMINAL: Soft nontender MUSCULOSKELETAl: No obvious deformities, NEURO: Alert. Moving 4/4 extremities SKIN:: Warm, dry. Normal color PSYCHIATRIC: Normal affect Objective Data Vital Signs Vital Signs: Vital Signs - 24 hr 03/28/24 14:00 03/28/24 16:00 03/28/24 20:00 Temperature 98.9 F Pulse Rate 97 91 Respiratory Rate 18 Blood Pressure 100/60 Pulse Oximetry 98 91 Oxygen Delivery Nasal Cannula Oxygen Flow Rate 2 03/28/24 20:00 03/28/24 20:48 03/28/24 21:17 Temperature 98.0 F Pulse Rate 85 73 74 Respiratory Rate 18 14 Blood Pressure 100/64 Pulse Oximetry 92 Oxygen Delivery Oxygen Flow Rate 03/28/24 21:54 03/29/24 00:00 03/29/24 04:00 Temperature 98 F Pulse Rate 97 98 100 Respiratory Rate 22 H Blood Pressure 118/81 Pulse Oximetry 91 Oxygen Delivery Oxygen Flow Rate 03/29/24 06:00 03/29/24 06:19 03/29/24 07:37 Temperature 99.2 F Pulse Rate 101 H 94 Respiratory Rate 16 16 Blood Pressure 132/74 Pulse Oximetry 89 L 91 90 Oxygen Delivery High Flow Nasal Cannula High Flow Nasal Cannula Oxygen Flow Rate 6 7 03/29/24 07:37 03/29/24 09:17 03/29/24 09:17 Temperature Pulse Rate 105 H 112 H 94 Respiratory Rate 20 Blood Pressure Pulse Oximetry Oxygen Delivery Oxygen Flow Rate 03/29/24 09:23 Temperature Pulse Rate 112 H Respiratory Rate Blood Pressure Pulse Oximetry Oxygen Delivery Oxygen Flow Rate Intake/Output Intake/Output: Intake & Output 03/26/24 03/27/24 03/28/24 03/29/24 23:59 23:59 23:59 23:59 Intake Total 50 480 1710 370 Output Total 750 1300 493 Balance 50 -270 410 -123 Meds/Results Medications: Active Medications Generic Name Dose Route Start Last Admin Trade Name Freq PRN Reason Stop Dose Admin Acetaminophen 1,000 mg 03/28/24 09:37 03/28/24 22:54 Acetaminophen 500 Mg Tablet PO 1,000 mg Q6H PRN Administration Mild Pain (1-3) or Fever Hydrocodone Bitart/Acetaminophen 1 tab 03/28/24 09:33 03/29/24 01:01 Hydrocodone/Acetaminophen (*Crx) 5-325 Mg Tablet PO 1 tab Q4H PRN Administration Pain Rated 4-6 Amiodarone HCl 200 mg 03/27/24 09:00 03/29/24 09:23 Amiodarone Hcl 200 Mg Tablet PO 200 mg DAILY MIGUEL Administration Amlodipine Besylate 5 mg 03/27/24 09:00 03/29/24 09:18 Amlodipine Besylate 5 Mg Tablet BY MOUTH 5 mg DAILY MIGUEL Administration Ascorbic Acid 1,000 mg 03/27/24 09:00 03/29/24 09:17 Ascorbic Acid 500 Mg Tablet PO 1,000 mg QAM MIGUEL Administration Atorvastatin Calcium 40 mg 03/27/24 09:00 03/29/24 09:17 Atorvastatin 40 Mg Tablet PO 40 mg DAILY MIGUEL Administration Buspirone HCl 5 mg 03/27/24 09:00 03/29/24 09:18 Buspirone Hcl 5 Mg Tablet PO 5 mg BID MIGUEL Administration Calcium Carbonate 500 mg 03/27/24 09:00 03/29/24 09:17 Calcium Carbonate (Oscal) 500 Mg Tablet PO 500 mg QAM MIGUEL Administration Furosemide 40 mg 03/27/24 09:00 03/29/24 09:18 Furosemide 40 Mg Tablet PO 40 mg DAILY MIGUEL Administration Hydromorphone HCl 0.5 mg 03/28/24 09:33 03/28/24 22:05 Hydromorphone Hcl Inj (*Crx) 1 Mg/Ml Syr IV PUSH 0.5 mg Q3H PRN Administration Pain Rated 7-10 Levothyroxine Sodium 75 mcg 03/28/24 06:30 03/29/24 05:12 Levothyroxine Sodium 75 Mcg Tablet BY MOUTH 75 mcg DAILY@0630 MIGUEL Administration Metoprolol Succinate 50 mg 03/27/24 09:00 03/29/24 09:17 Metoprolol Succinate Ext Rel 50 Mg Tabcr PO 50 mg QAM MIGUEL Administration Miscellaneous Information 1 each 03/27/24 00:01 03/28/24 21:50 Dupixet Nonformulary. Can We Hold Till Discharge? XX 04/26/24 00:00 Not Given CLARIFY MIGUEL Non-Formulary Medication 300 mg 03/27/24 08:45 Dupilumab [Dupixent Syringe] SUB-Q 04/26/24 08:44 .biweekly MIGUEL Oxycodone HCl 5 mg 03/28/24 09:33 03/29/24 05:11 Oxycodone Hcl (*Crx) 5 Mg Tab Ir PO 5 mg Q4H PRN Administration Pain Rated 7-10 Potassium Chloride 20 meq 03/27/24 09:00 03/29/24 09:18 Potassium Chloride 20 Meq Er Tablet PO 20 meq BID MIGUEL Administration Fluticasone/Salmeterol 2 puff 03/27/24 20:00 03/29/24 07:37 Fluticasone/Salmeterol 45-21 Mcg Inhaler 1 Puff INHALATION 2 puff Q12HRT MIGUEL Administration Senna/Docusate Sodium 2 tab 03/28/24 22:25 03/29/24 09:17 Senna/Docusate Sodium Tablet PO 2 tab BID MIGUEL Administration Warfarin Sodium 4 mg 03/27/24 18:00 03/28/24 17:17 Warfarin (*Pbkc) 2 Mg Tablet PO 4 mg EVENING MIGUEL Administration Radiology Results: ITS Impressions Chest CT 03/26/24 21:50 IMPRESSION: Redemonstration of a right-sided pneumothorax, approximately 15-20% in size with a right posterior medial fifth rib fracture. Head CT 03/26/24 23:09 Impression: No acute intracranial hemorrhage or suspicious mass effect. Cervical Spine CT 03/26/24 23:13 Impression: Straightening and slight reversal of the normal curvature of the cervical spine, likely muscular in origin. Significant degenerative disease, without acute fracture. Chest CTA 03/29/24 08:00 IMPRESSION: 1. Right chest tube in expected position with small right pleural effusion but no pneumothorax. 2. Mild emphysema with mild dependent atelectasis in both lungs. 3. Cardiomegaly with biatrial enlargement. 4. Enlargement of the central pulmonary arteries consistent with pulmonary arterial hypertension. 5. Recent-appearing nondisplaced fractures of the posterior right fifth and sixth ribs. Chest X-Ray 03/29/24 09:04 IMPRESSION: 1. Small right pleural effusion but no pneumothorax with unchanged apically directed right chest tube. 2. Mild opacities in bilateral lower lung zones which could represent atelectasis or pneumonia. 3. Cardiomegaly. Labs Labs: Laboratory Results - last 24 hr 03/29/24 03/29/24 04:24 04:24 WBC 16.2 H RBC 4.43 Hgb 13.1 Hct 41.4 MCV 93.5 MCH 29.6 MCHC 31.6 L RDW 14.3 Plt Count 162 MPV 11.3 H Immature Gran % (Auto) Not Reportable Neut % (Auto) Not Reportable Lymph % (Auto) Not Reportable [place] % (Auto) Not Reportable Eos % (Auto) Not Reportable Baso % (Auto) Not Reportable Lymph # (Auto) Not Reportable [place] # (Auto) Not Reportable Eos # (Auto) Not Reportable Baso # (Auto) Not Reportable Abs Immat Gran (auto) Not Reportable Absolute Neuts (auto) Not Reportable Absolute Nucleated RBC Not Reportable Total Counted 100 Neutrophils % (Manual) 84 H Band Neutrophils % 2 Lymphocytes % (Manual) 3.0 L Monocytes % (Manual) 11 H Nucleated RBC % Not Reportable Abs Neuts (Manual) 13.93 H Abs Lymphs (Manual) 0.48 L Abs Monocytes (Manual) 1.78 H Platelet Estimate Decreased Anisocytosis 1+ Schistocytes None seen PT 18.8 H INR 1.5 D-Dimer 2.45 H Sodium 134 L Potassium 5.0 Chloride 96 L Carbon Dioxide 30 Anion Gap 8 BUN 24 H Creatinine 0.73 Estim Creat Clear Calc 52 Estimated GFR > 60 Glucose 102 Calcium 9.1 Magnesium 1.8 Total Bilirubin 1.1 AST 31 ALT 20 Alkaline Phosphatase 115 Troponin I Cancelled < 0.012 NT-Pro-B Natriuret Pep 3850 H Total Protein 7.0 Albumin 4.0
[2024-03-29] MEDS: WARFARIN (*PBKC) 2 MG TABLET 4 MG PO (18:09)
[2024-03-29] MEDS: ACETAMINOPHEN 500 MG TABLET 1000 MG PO (20:46)
[2024-03-30] VITALS (13 sets, daily range): BP systolic 99–111; BP diastolic 58–69; PULSE 86–123; RESP 14–22; TEMP 36.8–37.5; O2SAT 92–95
[2024-03-30] MEDS: HYDROcodone/acetaminophen (*CRX) 5-325 MG TABLET 1 TAB PO ×2 (06:22→18:04)
[2024-03-30] MEDS: LEVOTHYROXINE SODIUM 75 MCG TABLET BY MOUTH (06:22)
[2024-03-30 07:38] LABS: Basophils Absolute Auto 0.1 K/mm3 (0.0-0.1); Basophils Percent Auto 0.5 % (0.2-1.2); Eosinophils Absolute Auto 0.1 K/mm3 (0-0.3); Eosinophils Percent Auto 0.7 % (0-4.4); Hematocrit 37.4 % (37.0-47.0); Hemoglobin 11.8 g/dL (12.0-15.0); Immature Granulocyte Absolute 0.03 K/mm3 (0.00-0.031); Immature Granulocyte Percent A 0.3 % (0-0.5); Lymphocytes Absolute Auto 0.35 K/mm3 (0.9-3.2); Lymphocytes Percent Auto 3.2 % (18.3-44.2); Mean Corpuscular HGB Conc 31.6 g/dl (32-36); Mean Corpuscular Hemoglobin 29.7 pg (26-34); Mean Corpuscular Volume 94.2 fl (80-100); Mean Platelet Volume 12.1 fl (7.4-10.4); Monocytes Absolute Auto 1.2 K/mm3 (0.1-0.6); Monocytes Percent Auto 11.3 % (2.6-8.5); Neutrophils Absolute Auto 9.1 K/mm3 (1.3-6.7); Platelet Count Result 134 k/mm3 (150-375); Red Blood Count 3.97 M/mm3 (4.2-5.4); Red Cell Distribution Width 14.6 % (11.5-14.5); White Blood Count 10.8 K/mm3 (4.5-10.0)
[2024-03-30 08:11] LABS: Alanine Aminotransferase 17 U/L (6-35); Albumin Level 3.3 g/dL (3.5-5.1); Alkaline Phosphatase 101 U/L (38-126); Anion Gap 8 mmol/L (4-12); Aspartate Amino Transferase 28 U/L (14-36); Blood Urea Nitrogen 34 mg/dL (7-17); Calcium 8.4 mg/dL (8.4-10.2); Carbon Dioxide 28 mmol/L (22-30); Chloride 95 mmol/L (98-107); Estimated CRCL calculation 40 ml/min; Estimated Glomerular Filt Rate 55; Glucose 94 mg/dL (65-110); Magnesium 1.9 mg/dL (1.6-2.3); Potassium 4.9 mmol/L (3.4-5.0); Sodium 131 mmol/L (137-145)
[2024-03-30] MEDS: FLUTICASONE/SALMETEROL 45-21 MCG INHALER 1 PUFF 2 PUFF INHALATION ×2 (08:25→20:32)
[2024-03-30] MEDS: amLODIPine BESYLATE 5 MG TABLET BY MOUTH (09:17)
[2024-03-30] MEDS: ASCORBIC ACID 500 MG TABLET 1000 MG PO (09:17)
[2024-03-30] MEDS: ATORVASTATIN 40 MG TABLET PO (09:17)
[2024-03-30] MEDS: POTASSIUM CHLORIDE 20 MEQ ER TABLET PO ×2 (09:17→18:02)
[2024-03-30] MEDS: AMIODARONE HCL 200 MG TABLET PO (09:17)
[2024-03-30] MEDS: METOPROLOL SUCCINATE EXT REL 50 MG TABCR PO (09:17)
[2024-03-30] MEDS: SENNA/DOCUSATE SODIUM TABLET 2 TAB PO (09:17)
[2024-03-30] MEDS: busPIRone HCL 5 MG TABLET PO ×2 (09:17→18:02)
[2024-03-30] MEDS: FUROSEMIDE 40 MG TABLET PO (09:17)
[2024-03-30] MEDS: CALCIUM CARBONATE (OSCAL) 500 MG TABLET PO (09:17)
[2024-03-30] MEDS: LIDOCAINE 5% PATCH 1 PATCH TRANSDERM (09:19)
--- NOTE | 2024-03-30 11:58 | P.PNIM_ITS ---
Progress Note: A&P Assessment and Plan (1) Pneumothorax: Code(s): J93.9 - Pneumothorax, unspecified Status: Acute (2) MARC (obstructive sleep apnea): Code(s): G47.33 - Obstructive sleep apnea (adult) (pediatric) Status: Acute (3) Chronic respiratory failure: Qualifiers: Respiratory failure complication: hypoxia Qualified Code(s): J96.11 - Chronic respiratory failure with hypoxia Code(s): J96.10 - Chronic respiratory failure, unspecified whether with hypoxia or hypercapnia Status: Acute (4) COPD (chronic obstructive pulmonary disease): Qualifiers: COPD type: unspecified COPD Qualified Code(s): J44.9 - Chronic obstructive pulmonary disease, unspecified Code(s): J44.9 - Chronic obstructive pulmonary disease, unspecified Status: Acute (5) Closed rib fracture: Code(s): S22.39XA - Fracture of one rib, unspecified side, initial encounter for closed fracture Status: Acute (6) GERD (gastroesophageal reflux disease): Qualifiers: Esophagitis presence: without esophagitis Qualified Code(s): K21.9 - Gastro-esophageal reflux disease without esophagitis Code(s): K21.9 - Gastro-esophageal reflux disease without esophagitis Status: Acute (7) Hypothyroidism: Qualifiers: Hypothyroidism type: acquired Qualified Code(s): E03.9 - Hypothyroidism, unspecified Code(s): E03.9 - Hypothyroidism, unspecified Status: Acute (8) Hyperlipidemia: Qualifiers: Hyperlipidemia type: elevated lipoprotein(a) Qualified Code(s): E78.41 - Elevated Lipoprotein(a) Code(s): E78.5 - Hyperlipidemia, unspecified Status: Acute (9) Afib: Qualifiers: Atrial fibrillation type: unspecified Qualified Code(s): I48.91 - U nspecified atrial fibrillation Code(s): I48.91 - Unspecified atrial fibrillation Status: Acute (10) CHF (congestive heart failure): Qualifiers: Heart failure type: unspecified Heart failure chronicity: unspecified Qualified Code(s): I50.9 - Heart failure, unspecified Code(s): I50.9 - Heart failure, unspecified Status: Acute (11) Hypertension: Qualifiers: Hypertension type: primary hypertension Qualified Code(s): I10 - Essential (primary) hypertension Code(s): I10 - Essential (primary) hypertension Status: Acute Plan This is an 88-year-old female presented to the ER after ground level fall. She was getting something out of a cabinet when she lost her balance and fell backwards hitting a chair. She had pain in her right back. She then developed shortness of breath. She came to the ER to be evaluated. She denies head trauma loss of consciousness. She has been ambulatory since the incident. Patient is supposed to be on anticoagulation for atrial fibrillation but ran out of her Eliquis 4 days ago. She has been prescribed Coumadin by her nuclear fuels research engineer but has not started taking Patient was in severe respiratory distress on arrival to the ER was placed on non-rebreather mask. Stat chest x-ray while she was in the lobby was which showed acute pneumothorax. She was brought to the ER abruptly and a needle decompression was performed for suspected tension pneumothorax the 2nd intercostal space on the right significant dickerson air. Subsequently a 16 [place] chest tube was placed on the right side without complication. EKG showed atrial fibrillation with rapid ventricular rate with rate of [address]-T changes. Laboratory workup showed WBC 14.9 hemoglobin of 14.4 platelet of 221. Chem panel was unremarkable. Urinalysis is negative. Influenza RSV/COVID swab is negative. Subsequently she had a CT chest performed which showed right-sided pneumothorax with subcutaneous air along the right anterolateral chest wall and posterior medial chest wall. Left lung is fully inflated. There is also acute posterior medial right-sided 5th rib fracture present likely source of pneumothorax. Subcutaneous air is also detected. Heart is enlarged without pericardial effusion. Small right-sided pleural fluid likely blood products. No additional rib fractures sternal fracture noted. Subsequent x-ray post chest tube placement revealed right-sided chest tube in excellent position with full expansion of the right lung. She also had head CT performed which did not have any acute intracranial abnormality. Cervical CT scan showed straightening and slight reversal of the normal curvature of the cervical spine likely muscular in origin. Significant degenerative disease without acute fracture noted. Repeat chest x-ray with no pneumo thorax showed right-sided chest tube without visible pneumothorax with possible minimal interstitial edema. General surgery consulted for chest tube management. On water-seal drainage. Chest tube has now been removed 03/29/2024.. CTA was negative for PE as well as pneumothorax. Received a dose of IV Lasix for possible congestion. COPD chronic hypoxic respiratory failure on home oxygen with acute exacerbation 03/29/2024. IV Lasix received overnight. CTA Negative for PE or pneumonia. MARC Congestive heart failure Atrial fibrillation history of cardioversion in the past on amiodarone and metoprolol Pulmonary hypertension Hypothyroidism Hypertension Hyperlipidemia GERD Varicose vein Osteoarthritis Anticoagulation with Eliquis DVT prophylaxis currently on warfarin INR is subtherapeutic. She is being switched from Eliquis to warfarin seems coverage issue. Restarted warfarin. INR 3 today. Will hold today's dose recheck INR in a.m. Code status full code Subjective Date/time seen: 03/30/24 11:58 Interval history: Chest tube was removed yesterday. Oxygen requirement at 6 L. Feels a little better today. Still has discomfort in her right-sided chest with the rib fracture is present. Review of Systems Review of Systems: All systems reviewed & are unremarkable except as noted in HPI and below Exam Narrative: APPEARANCE: Patient in no acute distress, alert and oriented x3 Head: atraumatic. EYES: EOMI, NOSE: Atraumatic NECK/back: Tenderness palpation over the right posterior thorax, dressing in place RESPIRATORY: equal air entry no respiratory distress CARDIOVASCULAR: S1 S-2 ABDOMINAL: Soft nontender MUSCULOSKELETAl: No obvious deformities, NEURO: Alert. Moving 4/4 extremities SKIN:: Warm, dry. Normal color PSYCHIATRIC: Normal affect Objective Data Vital Signs Vital Signs: Vital Signs - 24 hr 03/29/24 12:02 03/29/24 14:00 03/29/24 16:03 Temperature 98.7 F Pulse Rate 105 H 108 H 98 Respiratory Rate 20 Blood Pressure 125/54 L Pulse Oximetry 94 Oxygen Delivery Oxygen Flow Rate 03/29/24 20:00 03/29/24 20:00 03/29/24 20:15 Temperature Pulse Rate 95 Respiratory Rate Blood Pressure Pulse Oximetry 94 94 Oxygen Delivery High Flow Nasal Cannula High Flow Nasal Cannula Oxygen Flow Rate 7 7 03/29/24 20:15 03/29/24 22:00 03/29/24 23:37 Temperature 99.5 F Pulse Rate 102 H 100 99 Respiratory Rate 20 16 Blood Pressure 112/60 Pulse Oximetry 96 96 Oxygen Delivery High Flow Nasal Cannula Oxygen Flow Rate 7 03/30/24 00:00 03/30/24 04:00 03/30/24 06:00 Temperature 98.3 F Pulse Rate 92 86 87 Respiratory Rate 16 Blood Pressure 99/62 L Pulse Oximetry 95 Oxygen Delivery Oxygen Flow Rate 03/30/24 08:00 03/30/24 08:25 03/30/24 08:25 Temperature Pulse Rate 100 123 H 123 H Respiratory Rate 16 16 16 Blood Pressure Pulse Oximetry 92 92 Oxygen Delivery High Flow Nasal Cannula Nasal Cannula Oxygen Flow Rate 6 6 03/30/24 09:17 03/30/24 09:17 Temperature Pulse Rate 100 100 Respiratory Rate Blood Pressure Pulse Oximetry Oxygen Delivery Oxygen Flow Rate Intake/Output Intake/Output: Intake & Output 03/27/24 03/28/24 03/29/24 03/30/24 23:59 23:59 23:59 23:59 Intake Total 480 1710 820 440 Output Total 750 1300 1118 150 Balance -270 410 -298 290 Meds/Results Medications: Active Medications Generic Name Dose Route Start Last Admin Trade Name Freq PRN Reason Stop Dose Admin Acetaminophen 1,000 mg 03/28/24 09:37 03/29/24 20:46 Acetaminophen 500 Mg Tablet PO 1,000 mg Q6H PRN Administration Mild Pain (1-3) or Fever Hydrocodone Bitart/Acetaminophen 1 tab 03/28/24 09:33 03/30/24 06:22 Hydrocodone/Acetaminophen (*Crx) 5-325 Mg Tablet PO 1 tab Q4H PRN Administration Pain Rated 4-6 Amiodarone HCl 200 mg 03/27/24 09:00 03/30/24 09:17 Amiodarone Hcl 200 Mg Tablet PO 200 mg DAILY MIGUEL Administration Amlodipine Besylate 5 mg 03/27/24 09:00 03/30/24 09:17 Amlodipine Besylate 5 Mg Tablet BY MOUTH 5 mg DAILY MIGUEL Administration Ascorbic Acid 1,000 mg 03/27/24 09:00 03/30/24 09:17 Ascorbic Acid 500 Mg Tablet PO 1,000 mg QAM MIGUEL Administration Atorvastatin Calcium 40 mg 03/27/24 09:00 03/30/24 09:17 Atorvastatin 40 Mg Tablet PO 40 mg DAILY MIGUEL Administration Buspirone HCl 5 mg 03/27/24 09:00 03/30/24 09:17 Buspirone Hcl 5 Mg Tablet PO 5 mg BID MIGUEL Administration Calcium Carbonate 500 mg 03/27/24 09:00 03/30/24 09:17 Calcium Carbonate (Oscal) 500 Mg Tablet PO 500 mg QAM MIGUEL Administration Furosemide 40 mg 03/27/24 09:00 03/30/24 09:17 Furosemide 40 Mg Tablet PO 40 mg DAILY MIGUEL Administration Hydromorphone HCl 0.5 mg 03/28/24 09:33 03/28/24 22:05 Hydromorphone Hcl Inj (*Crx) 1 Mg/Ml Syr IV PUSH 0.5 mg Q3H PRN Administration Pain Rated 7-10 Levothyroxine Sodium 75 mcg 03/28/24 06:30 03/30/24 06:22 Levothyroxine Sodium 75 Mcg Tablet BY MOUTH 75 mcg DAILY@0630 MIGUEL Administration Lidocaine 1 patch 03/30/24 09:00 03/30/24 09:19 Lidocaine 5% Patch TRANSDERM 1 patch DAILY MIGUEL Administration Metoprolol Succinate 50 mg 03/27/24 09:00 03/30/24 09:17 Metoprolol Succinate Ext Rel 50 Mg Tabcr PO 50 mg QAM MIGUEL Administration Miscellaneous Information 1 each 03/27/24 00:01 03/29/24 20:39 Dupixet Nonformulary. Can We Hold Till Discharge? XX 04/26/24 00:00 Not Given CLARIFY MIGUEL Non-Formulary Medication 300 mg 03/27/24 08:45 Dupilumab [Dupixent Syringe] SUB-Q 04/26/24 08:44 .biweekly MIGUEL Oxycodone HCl 5 mg 03/28/24 09:33 03/29/24 20:46 Oxycodone Hcl (*Crx) 5 Mg Tab Ir PO 5 mg Q4H PRN Administration Pain Rated 7-10 Potassium Chloride 20 meq 03/27/24 09:00 03/30/24 09:17 Potassium Chloride 20 Meq Er Tablet PO 20 meq BID MIGUEL Administration Fluticasone/Salmeterol 2 puff 03/27/24 20:00 03/30/24 08:25 Fluticasone/Salmeterol 45-21 Mcg Inhaler 1 Puff INHALATION 2 puff Q12HRT MIGUEL Administration Senna/Docusate Sodium 2 tab 03/28/24 22:25 03/30/24 09:17 Senna/Docusate Sodium Tablet PO 2 tab BID MIGUEL Administration Warfarin Sodium 4 mg 03/27/24 18:00 03/29/24 18:09 Warfarin (*Pbkc) 2 Mg Tablet PO 4 mg EVENING MIGUEL Administration Radiology Results: ITS Impressions Chest CT 03/26/24 21:50 IMPRESSION: Redemonstration of a right-sided pneumothorax, approximately 15-20% in size with a right posterior medial fifth rib fracture. Head CT 03/26/24 23:09 Impression: No acute intracranial hemorrhage or suspicious mass effect. Cervical Spine CT 03/26/24 23:13 Impression: Straightening and slight reversal of the normal curvature of the cervical spine, likely muscular in origin. Significant degenerative disease, without acute fracture. Chest CTA 03/29/24 08:00 IMPRESSION: 1. Right chest tube in expected position with small right pleural effusion but no pneumothorax. 2. Mild emphysema with mild dependent atelectasis in both lungs. 3. Cardiomegaly with biatrial enlargement. 4. Enlargement of the central pulmonary arteries consistent with pulmonary arterial hypertension. 5. Recent-appearing nondisplaced fractures of the posterior right fifth and sixth ribs. Chest X-Ray 03/29/24 18:22 IMPRESSION: Focal expansion of the right lung on plain film evaluation, as detailed above. Redemonstration of a small right-sided pleural effusion. Labs Labs: Laboratory Results - last 24 hr 03/30/24 07:05 WBC 10.8 H RBC 3.97 L Hgb 11.8 L Hct 37.4 MCV 94.2 MCH 29.7 MCHC 31.6 L RDW 14.6 H Plt Count 134 L MPV 12.1 H Immature Gran % (Auto) 0.3 Neut % (Auto) 84.0 H Lymph % (Auto) 3.2 L [place] % (Auto) 11.3 H Eos % (Auto) 0.7 Baso % (Auto) 0.5 Lymph # (Auto) 0.35 L [place] # (Auto) 1.2 H Eos # (Auto) 0.1 Baso # (Auto) 0.1 Abs Immat Gran (auto) 0.03 Absolute Neuts (auto) 9.1 H Absolute Nucleated RBC 0.000 Nucleated RBC % 0.0 PT 32.0 H D INR 3.0 Sodium 131 L Potassium 4.9 Chloride 95 L Carbon Dioxide 28 Anion Gap 8 BUN 34 H D Creatinine 0.96 Estim Creat Clear Calc 40 Estimated GFR 55 L Glucose 94 Calcium 8.4 Magnesium 1.9 Total Bilirubin 1.0 AST 28 ALT 17 Alkaline Phosphatase 101 Total Protein 6.0 L Albumin 3.3 L
--- NOTE | 2024-03-30 13:49 | P.CDI_ITS ---
CDI Query Clarification Request CHF has been documented, Please specify type and acuity of heart failure if known. Risk Factors: Patient complained of chest pain. EKG x2 without acute ischemia. Chest pain eventually resolved but patient complained of shortness of breath. Patient lying flat in the bed with mild use of accessory muscles and tachypnea. She uses 3 L however was turned up to 5 L saturating 90%. She felt better when had the bed was elevated. Diffuse wet crackles greater on left. Lower extremity edema although she does not know if this is more than her usual. Last admission in January 2024 the patient was given Lasix for an elevated BNP. A 2D echocardiogram reported EF 55%. Giving Lasix [address] PE protocol ordered Clinical Indicators: SOB, BNP 3850 Treatment:IV lasix 2/9 x 1 dose, lasix po daily * Acute * Chronic * Acute on Chronic * Unknown * Systolic * Diastolic * Combined Systolic and Diastolic * Unknown <Marichuy Santo RN - Last Filed: 03/30/24 13:51> Provider Comments Acute on Chronic diastolic congestive heart failure <Trace Harkins MD - Last Filed: 03/31/24 18:36>
--- NOTE | 2024-03-30 14:49 | PM.PNGS ---
Progress Note: A&P Assessment and Plan (1) Pneumothorax: Code(s): J93.9 - Pneumothorax, unspecified Status: Acute Assessment and Plan: Chest tube removed yesterday with no pneumothorax on her chest x-ray this morning. We will sign off at this time and she can follow-up with her primary care physician after discharge for monitoring of the rib fractures. She is stable from a surgical standpoint to discharge when she is medically stable. I discussed dressing care with the patient - her chest tube dressing should stay in place for 3 days post removal. (2) Closed rib fracture: Code(s): S22.39XA - Fracture of one rib, unspecified side, initial encounter for closed fracture Status: Acute Assessment and Plan: Fractures of the right 5th and 6th ribs. Expected management with pain medications for pain control. Try to perform pulmonary toilet to avoid getting pneumonia. Plan I have discussed the patient's case and plan of care with Dr. Fernandez. Subjective Subjective Date/Time Seen: 03/30/24 14:49 Interval history: Chart reviewed. Doing well with no specific new complaints overnight. She is on 5 L O2, and typically wears 1 L O2 at home. She reports that nursing is trying to wean down her oxygen today. She has come down to 5 L. she denies any new shortness of breath or chest pain. Chest x-ray this morning showed no pneumothorax. Exam Const: General: comfortable and no acute distress Orientation/consciousness: patient oriented x3 Chest: Other: Right lateral chest dressing dry and intact from chest tube removal yesterday. No crepitus. Resp: Effort & Inspection: normal respiratory effort Auscultation: diminished lung sounds (Equal bilaterally, slightly diminished) Objective Data Vital Signs Vital Signs: Vital Signs - 24 hr 03/29/24 16:03 03/29/24 20:00 03/29/24 20:00 Temperature Pulse Rate 98 95 Respiratory Rate Blood Pressure Pulse Oximetry 94 Oxygen Delivery High Flow Nasal Cannula Oxygen Flow Rate 7 03/29/24 20:15 03/29/24 20:15 03/29/24 22:00 Temperature 99.5 F Pulse Rate 102 H 100 Respiratory Rate 20 16 Blood Pressure 112/60 Pulse Oximetry 94 96 Oxygen Delivery High Flow Nasal Cannula Oxygen Flow Rate 7 03/29/24 23:37 03/30/24 00:00 03/30/24 04:00 Temperature Pulse Rate 99 92 86 Respiratory Rate Blood Pressure Pulse Oximetry 96 Oxygen Delivery High Flow Nasal Cannula Oxygen Flow Rate 7 03/30/24 06:00 03/30/24 08:00 03/30/24 08:25 Temperature 98.3 F Pulse Rate 87 100 123 H Respiratory Rate 16 16 16 Blood Pressure 99/62 L Pulse Oximetry 95 92 92 Oxygen Delivery High Flow Nasal Cannula Nasal Cannula Oxygen Flow Rate 6 6 03/30/24 08:25 03/30/24 09:17 03/30/24 09:17 Temperature Pulse Rate 123 H 100 100 Respiratory Rate 16 Blood Pressure Pulse Oximetry Oxygen Delivery Oxygen Flow Rate 03/30/24 10:40 03/30/24 12:02 03/30/24 14:00 Temperature 98.6 F Pulse Rate 101 H 107 H 107 H Respiratory Rate 22 H Blood Pressure 111/69 Pulse Oximetry 92 Oxygen Delivery Oxygen Flow Rate Intake/Output Intake/Output: Intake & Output 03/27/24 03/28/24 03/29/24 03/30/24 23:59 23:59 23:59 23:59 Intake Total 480 1710 820 680 Output Total 750 1300 1118 350 Balance -270 410 -298 330 Meds/Results Medications: Active Medications Generic Name Dose Route Start Last Admin Trade Name Freq PRN Reason Stop Dose Admin Acetaminophen 1,000 mg 03/28/24 09:37 03/29/24 20:46 Acetaminophen 500 Mg Tablet PO 1,000 mg Q6H PRN Administration Mild Pain (1-3) or Fever Hydrocodone Bitart/Acetaminophen 1 tab 03/28/24 09:33 03/30/24 06:22 Hydrocodone/Acetaminophen (*Crx) 5-325 Mg Tablet PO 1 tab Q4H PRN Administration Pain Rated 4-6 Amiodarone HCl 200 mg 03/27/24 09:00 03/30/24 09:17 Amiodarone Hcl 200 Mg Tablet PO 200 mg DAILY MIGUEL Administration Amlodipine Besylate 5 mg 03/27/24 09:00 03/30/24 09:17 Amlodipine Besylate 5 Mg Tablet BY MOUTH 5 mg DAILY MIGUEL Administration Ascorbic Acid 1,000 mg 03/27/24 09:00 03/30/24 09:17 Ascorbic Acid 500 Mg Tablet PO 1,000 mg QAM MIGUEL Administration Atorvastatin Calcium 40 mg 03/27/24 09:00 03/30/24 09:17 Atorvastatin 40 Mg Tablet PO 40 mg DAILY MIGUEL Administration Buspirone HCl 5 mg 03/27/24 09:00 03/30/24 09:17 Buspirone Hcl 5 Mg Tablet PO 5 mg BID MIGUEL Administration Calcium Carbonate 500 mg 03/27/24 09:00 03/30/24 09:17 Calcium Carbonate (Oscal) 500 Mg Tablet PO 500 mg QAM MIGUEL Administration Furosemide 40 mg 03/27/24 09:00 03/30/24 09:17 Furosemide 40 Mg Tablet PO 40 mg DAILY MIGUEL Administration Hydromorphone HCl 0.5 mg 03/28/24 09:33 03/28/24 22:05 Hydromorphone Hcl Inj (*Crx) 1 Mg/Ml Syr IV PUSH 0.5 mg Q3H PRN Administration Pain Rated 7-10 Levothyroxine Sodium 75 mcg 03/28/24 06:30 03/30/24 06:22 Levothyroxine Sodium 75 Mcg Tablet BY MOUTH 75 mcg DAILY@0630 MIGUEL Administration Lidocaine 1 patch 03/30/24 09:00 03/30/24 09:19 Lidocaine 5% Patch TRANSDERM 1 patch DAILY MIGUEL Administration Metoprolol Succinate 50 mg 03/27/24 09:00 03/30/24 09:17 Metoprolol Succinate Ext Rel 50 Mg Tabcr PO 50 mg QAM MIGUEL Administration Miscellaneous Information 1 each 03/27/24 00:01 03/29/24 20:39 Dupixet Nonformulary. Can We Hold Till Discharge? XX 04/26/24 00:00 Not Given CLARIFY [facility] Non-Formulary Medication 300 mg 03/27/24 08:45 Dupilumab [Dupixent Syringe] SUB-Q 04/26/24 08:44 .biweekly [facility] Oxycodone HCl 5 mg 03/28/24 09:33 03/29/24 20:46 Oxycodone Hcl (*Crx) 5 Mg Tab Ir PO 5 mg Q4H PRN Administration Pain Rated 7-10 Potassium Chloride 20 meq 03/27/24 09:00 03/30/24 09:17 Potassium Chloride 20 Meq Er Tablet PO 20 meq BID MIGUEL Administration Fluticasone/Salmeterol 2 puff 03/27/24 20:00 03/30/24 08:25 Fluticasone/Salmeterol 45-21 Mcg Inhaler 1 Puff INHALATION 2 puff Q12HRT MIGUEL Administration Senna/Docusate Sodium 2 tab 03/28/24 22:25 03/30/24 09:17 Senna/Docusate Sodium Tablet PO 2 tab BID MIGUEL Administration Warfarin Sodium 4 mg 03/27/24 18:00 03/29/24 18:09 Warfarin (*Pbkc) 2 Mg Tablet PO 4 mg EVENING MIGUEL Administration Radiology Results: ITS Impressions Chest CT 03/26/24 21:50 IMPRESSION: Redemonstration of a right-sided pneumothorax, approximately 15-20% in size with a right posterior medial fifth rib fracture. Head CT 03/26/24 23:09 Impression: No acute intracranial hemorrhage or suspicious mass effect. Cervical Spine CT 03/26/24 23:13 Impression: Straightening and slight reversal of the normal curvature of the cervical spine, likely muscular in origin. Significant degenerative disease, without acute fracture. Chest CTA 03/29/24 08:00 IMPRESSION: 1. Right chest tube in expected position with small right pleural effusion but no pneumothorax. 2. Mild emphysema with mild dependent atelectasis in both lungs. 3. Cardiomegaly with biatrial enlargement. 4. Enlargement of the central pulmonary arteries consistent with pulmonary arterial hypertension. 5. Recent-appearing nondisplaced fractures of the posterior right fifth and sixth ribs. Chest X-Ray 03/30/24 12:18 IMPRESSION: 1. Unchanged small right pleural effusion with mild bibasilar atelectasis. 2. Cardiomegaly. Labs Labs: Laboratory Results - last 24 hr 03/30/24 07:05 WBC 10.8 H RBC 3.97 L Hgb 11.8 L Hct 37.4 MCV 94.2 MCH 29.7 MCHC 31.6 L RDW 14.6 H Plt Count 134 L MPV 12.1 H Immature Gran % (Auto) 0.3 Neut % (Auto) 84.0 H Lymph % (Auto) 3.2 L [place] % (Auto) 11.3 H Eos % (Auto) 0.7 Baso % (Auto) 0.5 Lymph # (Auto) 0.35 L [place] # (Auto) 1.2 H Eos # (Auto) 0.1 Baso # (Auto) 0.1 Abs Immat Gran (auto) 0.03 Absolute Neuts (auto) 9.1 H Absolute Nucleated RBC 0.000 Nucleated RBC % 0.0 PT 32.0 H D INR 3.0 Sodium 131 L Potassium 4.9 Chloride 95 L Carbon Dioxide 28 Anion Gap 8 BUN 34 H D Creatinine 0.96 Estim Creat Clear Calc 40 Estimated GFR 55 L Glucose 94 Calcium 8.4 Magnesium 1.9 Total Bilirubin 1.0 AST 28 ALT 17 Alkaline Phosphatase 101 Total Protein 6.0 L Albumin 3.3 L
[2024-03-31] VITALS (13 sets, daily range): BP systolic 115–125; BP diastolic 65–77; PULSE 87–115; RESP 13–22; TEMP 36.8–37.3; O2SAT 87–94
[2024-03-31] MEDS: oxyCODONE HCL (*CRX) 5 MG TAB IR PO ×3 (01:34→14:28)
[2024-03-31] MEDS: LEVOTHYROXINE SODIUM 75 MCG TABLET BY MOUTH (05:34)
[2024-03-31] MEDS: HYDROmorphone HCL INJ (*CRX) 1 MG/ML SYR 0.5 MG IV PUSH (06:33)
[2024-03-31] MEDS: FLUTICASONE/SALMETEROL 45-21 MCG INHALER 1 PUFF 2 PUFF INHALATION ×2 (07:20→20:31)
[2024-03-31 08:39] LABS: Alanine Aminotransferase 17 U/L (6-35); Albumin Level 3.2 g/dL (3.5-5.1); Alkaline Phosphatase 105 U/L (38-126); Anion Gap 6 mmol/L (4-12); Aspartate Amino Transferase 28 U/L (14-36); Bilirubin,Total 0.8 mg/dL (0.2-1.3); Blood Urea Nitrogen 37 mg/dL (7-17); Calcium 8.7 mg/dL (8.4-10.2); Carbon Dioxide 33 mmol/L (22-30); Chloride 93 mmol/L (98-107); Estimated CRCL calculation 40 ml/min; Estimated Glomerular Filt Rate 54; Glucose 91 mg/dL (65-110); Magnesium 2.2 mg/dL (1.6-2.3); Potassium 5.9 mmol/L (3.4-5.0); Sodium 132 mmol/L (137-145)
[2024-03-31] MEDS: amLODIPine BESYLATE 5 MG TABLET BY MOUTH (08:42)
[2024-03-31] MEDS: AMIODARONE HCL 200 MG TABLET PO (08:42)
[2024-03-31] MEDS: busPIRone HCL 5 MG TABLET PO ×2 (08:42→17:04)
[2024-03-31] MEDS: ASCORBIC ACID 500 MG TABLET 1000 MG PO (08:42)
[2024-03-31] MEDS: FUROSEMIDE 40 MG TABLET PO (08:42)
[2024-03-31] MEDS: ATORVASTATIN 40 MG TABLET PO (08:42)
[2024-03-31] MEDS: CALCIUM CARBONATE (OSCAL) 500 MG TABLET PO (08:42)
[2024-03-31] MEDS: METOPROLOL SUCCINATE EXT REL 50 MG TABCR PO (08:43)
[2024-03-31] MEDS: LIDOCAINE 5% PATCH 1 PATCH TRANSDERM (08:44)
[2024-03-31 08:52] LABS: Basophils Percent Auto 0.4 % (0.2-1.2); Eosinophils Absolute Auto 0.2 K/mm3 (0-0.3); Hematocrit 37.4 % (37.0-47.0); Hemoglobin 11.8 g/dL (12.0-15.0); Immature Granulocyte Absolute 0.01 K/mm3 (0.00-0.031); Immature Granulocyte Percent A 0.2 % (0-0.5); Lymphocytes Absolute Auto 0.47 K/mm3 (0.9-3.2); Lymphocytes Percent Auto 9.8 % (18.3-44.2); Mean Corpuscular HGB Conc 31.6 g/dl (32-36); Mean Corpuscular Hemoglobin 29.8 pg (26-34); Mean Corpuscular Volume 94.4 fl (80-100); Mean Platelet Volume 11.7 fl (7.4-10.4); Monocytes Percent Auto 21.4 % (2.6-8.5); Neutrophils Absolute Auto 3.1 K/mm3 (1.3-6.7); Neutrophils Percent Auto 64.2 % (45.5-73.1); Platelet Count Result 161 k/mm3 (150-375); Red Blood Count 3.96 M/mm3 (4.2-5.4); Red Cell Distribution Width 14.7 % (11.5-14.5); White Blood Count 4.8 K/mm3 (4.5-10.0)
[2024-03-31] MEDS: SODIUM ZIRCONIUM CYCLOSILICATE 10 GM POWD.PACK PO (09:07)
[2024-03-31 09:08] LABS: INR 3.1; Prothrombin Time 32.5 Seconds (11.1-14.7)
--- NOTE | 2024-03-31 10:58 | PHAR ---
Pharmacy verified home med: * Use From Home * Dupilumab [Dupixent Syringe] 300 mg/2 mL syringe - inject subQ into the thigh or abdomen, except for the 2 inches (5 cm) around the navel once every 2 weeks
[2024-03-31] MEDS: FUROSEMIDE INJ 40 MG/4 ML VIAL IV PUSH (11:11)
[2024-03-31] MEDS: DUPILUMAB 300 MG/2 ML 300 EACH SUB-Q (11:12)
--- NOTE | 2024-03-31 13:44 | PM.IMPN ---
Progress Note: A&P Assessment and Plan (1) Pneumothorax: Code(s): J93.9 - Pneumothorax, unspecified Status: Acute (2) MARC (obstructive sleep apnea): Code(s): G47.33 - Obstructive sleep apnea (adult) (pediatric) Status: Acute (3) Chronic respiratory failure: Qualifiers: Respiratory failure complication: hypoxia Qualified Code(s): J96.11 - Chronic respiratory failure with hypoxia Code(s): J96.10 - Chronic respiratory failure, unspecified whether with hypoxia or hypercapnia Status: Acute (4) COPD (chronic obstructive pulmonary disease): Qualifiers: COPD type: unspecified COPD Qualified Code(s): J44.9 - Chronic obstructive pulmonary disease, unspecified Code(s): J44.9 - Chronic obstructive pulmonary disease, unspecified Status: Acute (5) Closed rib fracture: Code(s): S22.39XA - Fracture of one rib, unspecified side, initial encounter for closed fracture Status: Acute (6) GERD (gastroesophageal reflux disease): Qualifiers: Esophagitis presence: without esophagitis Qualified Code(s): K21.9 - Gastro-esophageal reflux disease without esophagitis Code(s): K21.9 - Gastro-esophageal reflux disease without esophagitis Status: Acute (7) Hypothyroidism: Qualifiers: Hypothyroidism type: acquired Qualified Code(s): E03.9 - Hypothyroidism, unspecified Code(s): E03.9 - Hypothyroidism, unspecified Status: Acute (8) Hyperlipidemia: Qualifiers: Hyperlipidemia type: elevated lipoprotein(a) Qualified Code(s): E78.41 - Elevated Lipoprotein(a) Code(s): E78.5 - Hyperlipidemia, unspecified Status: Acute (9) Afib: Qualifiers: Atrial fibrillation type: unspecified Qualified Code(s): I48.91 - Unspecified atrial fibrillation Code(s): I48.91 - Unspecified atrial fibrillation Status: Acute (10) CHF (congestive heart failure): Qualifiers: Heart failure type: unspecified Heart failure chronicity: unspecified Qualified Code(s): I50.9 - Heart failure, unspecified Code(s): I50.9 - Heart failure, unspecified Status: Acute (11) Hypertension: Qualifiers: Hypertension type: primary hypertension Qualified Code(s): I10 - Essential (primary) hypertension Code(s): I10 - Essential (primary) hypertension Status: Acute Plan This is an 88-year-old female presented to the ER after ground level fall. She was getting something out of a cabinet when she lost her balance and fell backwards hitting a chair. She had pain in her right back. She then developed shortness of breath. She came to the ER to be evaluated. She denies head trauma loss of consciousness. She has been ambulatory since the incident. Patient is supposed to be on anticoagulation for atrial fibrillation but ran out of her Eliquis 4 days ago. She has been prescribed Coumadin by her geoscientist but has not started taking Patient was in severe respiratory distress on arrival to the ER was placed on non-rebreather mask. Stat chest x-ray while she was in the lobby was which showed acute pneumothorax. She was brought to the ER abruptly and a needle decompression was performed for suspected tension pneumothorax the 2nd intercostal space on the right significant dickerson air. Subsequently a 16 [place] chest tube was placed on the right side without complication. EKG showed atrial fibrillation with rapid ventricular rate with rate of [address]-T changes. Laboratory workup showed WBC 14.9 hemoglobin of 14.4 platelet of 221. Chem panel was unremarkable. Urinalysis is negative. Influenza RSV/COVID swab is negative. Subsequently she had a CT chest performed which showed right-sided pneumothorax with subcutaneous air along the right anterolateral chest wall and posterior medial chest wall. Left lung is fully inflated. There is also acute posterior medial right-sided 5th rib fracture present likely source of pneumothorax. Subcutaneous air is also detected. Heart is enlarged without pericardial effusion. Small right-sided pleural fluid likely blood products. No additional rib fractures sternal fracture noted. Subsequent x-ray post chest tube placement revealed right-sided chest tube in excellent position with full expansion of the right lung. She also had head CT performed which did not have any acute intracranial abnormality. Cervical CT scan showed straightening and slight reversal of the normal curvature of the cervical spine likely muscular in origin. Significant degenerative disease without acute fracture noted. Repeat chest x-ray with no pneumo thorax showed right-sided chest tube without visible pneumothorax with possible minimal interstitial edema. General surgery consulted for chest tube management. On water-seal drainage. Chest tube has now been removed 03/29/2024.. CTA was negative for PE as well as pneumothorax. Received a dose of IV Lasix for possible congestion. COPD chronic hypoxic respiratory failure on home oxygen with acute exacerbation 03/29/2024. IV Lasix received overnight. CTA Negative for PE or pneumonia. will reorder lasix x 1 again MARC Congestive heart failure with mild exacerbation. iv lasix x 1 Atrial fibrillation history of cardioversion in the past on amiodarone and metoprolol Pulmonary hypertension Hypothyroidism Hypertension Hyperlipidemia GERD Varicose vein Osteoarthritis Anticoagulation with Eliquis DVT prophylaxis currently on warfarin INR is subtherapeutic. She is being switched from Eliquis to warfarin seems coverage issue. Restarted warfarin. INR 3 hold warfarin. inr still 3.1 will continue to hold. need to lower warfarin dosing likely 3 mg dailyii when starts to trend down. inr in am. Code status full code Subjective Date/time seen: 03/31/24 13:44 Interval history: Feeling better. Chest x-ray reviewed. Still on 6 L oxygen. Legs are more swollen. Review of Systems Review of Systems: All systems reviewed & are unremarkable except as noted in HPI and below Exam Narrative: APPEARANCE: Patient in no acute distress, alert and oriented x3 Head: atraumatic. EYES: EOMI, NOSE: Atraumatic NECK/back: Tenderness palpation over the right posterior thorax, dressing in place RESPIRATORY: equal air entry no respiratory distress CARDIOVASCULAR: S1 S-2 ABDOMINAL: Soft nontender MUSCULOSKELETAl: No obvious deformities, NEURO: Alert. Moving 4/4 extremities SKIN:: Warm, dry. Normal color PSYCHIATRIC: Normal affect Objective Data Vital Signs Vital Signs: Vital Signs - 24 hr 03/30/24 14:00 03/30/24 16:00 03/30/24 20:00 Temperature 98.6 F Pulse Rate 107 H 111 H Respiratory Rate 22 H Blood Pressure 111/69 Pulse Oximetry 92 94 Oxygen Delivery Nasal Cannula Oxygen Flow Rate 6 03/30/24 20:00 03/30/24 20:35 03/30/24 20:35 Temperature Pulse Rate 102 H 93 Respiratory Rate 20 Blood Pressure Pulse Oximetry 94 Oxygen Delivery Nasal Cannula Oxygen Flow Rate 6 03/30/24 21:19 03/31/24 00:00 03/31/24 04:00 Temperature 99.5 F Pulse Rate 88 90 100 Respiratory Rate 14 Blood Pressure 109/58 L Pulse Oximetry 94 Oxygen Delivery Oxygen Flow Rate 03/31/24 06:00 03/31/24 07:20 03/31/24 07:20 Temperature 98.2 F Pulse Rate 93 87 87 Respiratory Rate 13 18 18 Blood Pressure 118/65 Pulse Oximetry 94 92 Oxygen Delivery Nasal Cannula Oxygen Flow Rate 5 03/31/24 08:00 03/31/24 08:00 03/31/24 08:42 Temperature Pulse Rate 102 H 101 H Respiratory Rate Blood Pressure Pulse Oximetry 94 Oxygen Delivery Nasal Cannula Oxygen Flow Rate 6 03/31/24 08:43 Temperature Pulse Rate 101 H Respiratory Rate Blood Pressure Pulse Oximetry Oxygen Delivery Oxygen Flow Rate Intake/Output Intake/Output: Intake & Output 03/28/24 03/29/24 03/30/24 03/31/24 23:59 23:59 23:59 23:59 Intake Total 1710 820 920 607 Output Total 1300 1118 350 Balance 410 -298 570 607 Meds/Results Medications: Active Medications Generic Name Dose Route Start Last Admin Trade Name Freq PRN Reason Stop Dose Admin Acetaminophen 1,000 mg 03/28/24 09:37 03/29/24 20:46 Acetaminophen 500 Mg Tablet PO 1,000 mg Q6H PRN Administration Mild Pain (1-3) or Fever Hydrocodone Bitart/Acetaminophen 1 tab 03/28/24 09:33 03/30/24 18:04 Hydrocodone/Acetaminophen (*Crx) 5-325 Mg Tablet PO 1 tab Q4H PRN Administration Pain Rated 4-6 Amiodarone HCl 200 mg 03/27/24 09:00 03/31/24 08:42 Amiodarone Hcl 200 Mg Tablet PO 200 mg DAILY MIGUEL Administration Amlodipine Besylate 5 mg 03/27/24 09:00 03/31/24 08:42 Amlodipine Besylate 5 Mg Tablet BY MOUTH 5 mg DAILY MIGUEL Administration Ascorbic Acid 1,000 mg 03/27/24 09:00 03/31/24 08:42 Ascorbic Acid 500 Mg Tablet PO 1,000 mg QAM MIGUEL Administration Atorvastatin Calcium 40 mg 03/27/24 09:00 03/31/24 08:42 Atorvastatin 40 Mg Tablet PO 40 mg DAILY MIGUEL Administration Buspirone HCl 5 mg 03/27/24 09:00 03/31/24 08:42 Buspirone Hcl 5 Mg Tablet PO 5 mg BID MIGUEL Administration Calcium Carbonate 500 mg 03/27/24 09:00 03/31/24 08:42 Calcium Carbonate (Oscal) 500 Mg Tablet PO 500 mg QAM MIGUEL Administration Furosemide 40 mg 03/27/24 09:00 03/31/24 08:42 Furosemide 40 Mg Tablet PO 40 mg DAILY MIGUEL Administration Hydromorphone HCl 0.5 mg 03/28/24 09:33 03/31/24 06:33 Hydromorphone Hcl Inj (*Crx) 1 Mg/Ml Syr IV PUSH 0.5 mg Q3H PRN Administration Pain Rated 7-10 Levothyroxine Sodium 75 mcg 03/28/24 06:30 03/31/24 05:34 Levothyroxine Sodium 75 Mcg Tablet BY MOUTH 75 mcg DAILY@0630 MIGUEL Administration Lidocaine 1 patch 03/30/24 09:00 03/31/24 08:44 Lidocaine 5% Patch TRANSDERM 1 patch DAILY MIGUEL Administration Metoprolol Succinate 50 mg 03/27/24 09:00 03/31/24 08:43 Metoprolol Succinate Ext Rel 50 Mg Tabcr PO 50 mg QAM MIGUEL Administration * Home Med * 300 mg 03/31/24 11:00 03/31/24 11:12 Dupilumab [Dupixent SUB-Q 04/30/24 10:59 300 mg Syringe] 300 Mg/2 Ml [id number] MIGUEL Administration Syringe Oxycodone HCl 5 mg 03/28/24 09:33 03/31/24 05:34 Oxycodone Hcl (*Crx) 5 Mg Tab Ir PO 5 mg Q4H PRN Administration Pain Rated 7-10 Potassium Chloride 20 meq 03/27/24 09:00 03/30/24 18:02 Potassium Chloride 20 Meq Er Tablet PO 20 meq BID MIGUEL Administration Fluticasone/Salmeterol 2 puff 03/27/24 20:00 03/31/24 07:20 Fluticasone/Salmeterol 45-21 Mcg Inhaler 1 Puff INHALATION 2 puff Q12HRT MIGUEL Administration Senna/Docusate Sodium 2 tab 03/28/24 22:25 03/31/24 08:43 Senna/Docusate Sodium Tablet PO Not Given BID [facility] [place] Warfarin Sodium 4 mg 03/27/24 18:00 03/29/24 18:09 Warfarin (*Pbkc) 2 Mg Tablet PO 4 mg EVENING MIGUEL Administration Radiology Results: ITS Impressions Chest CT 03/26/24 21:50 IMPRESSION: Redemonstration of a right-sided pneumothorax, approximately 15-20% in size with a right posterior medial fifth rib fracture. Head CT 03/26/24 23:09 Impression: No acute intracranial hemorrhage or suspicious mass effect. Cervical Spine CT 03/26/24 23:13 Impression: Straightening and slight reversal of the normal curvature of the cervical spine, likely muscular in origin. Significant degenerative disease, without acute fracture. Chest CTA 03/29/24 08:00 IMPRESSION: 1. Right chest tube in expected position with small right pleural effusion but no pneumothorax. 2. Mild emphysema with mild dependent atelectasis in both lungs. 3. Cardiomegaly with biatrial enlargement. 4. Enlargement of the central pulmonary arteries consistent with pulmonary arterial hypertension. 5. Recent-appearing nondisplaced fractures of the posterior right fifth and sixth ribs. Chest X-Ray 03/31/24 06:40 Impression: COPD. Minimal right pleural effusion. Labs Labs: Laboratory Results - last 24 hr 03/31/24 07:57 WBC 4.8 RBC 3.96 L Hgb 11.8 L Hct 37.4 MCV 94.4 MCH 29.8 MCHC 31.6 L RDW 14.7 H Plt Count 161 MPV 11.7 H Immature Gran % (Auto) 0.2 Neut % (Auto) 64.2 Lymph % (Auto) 9.8 L [place] % (Auto) 21.4 H Eos % (Auto) 4.0 Baso % (Auto) 0.4 Lymph # (Auto) 0.47 L [place] # (Auto) 1.0 H Eos # (Auto) 0.2 Baso # (Auto) 0.0 Abs Immat Gran (auto) 0.01 Absolute Neuts (auto) 3.1 Absolute Nucleated RBC 0.000 Nucleated RBC % 0.0 PT 32.5 H INR 3.1 Sodium 132 L Potassium 5.9 H Chloride 93 L Carbon Dioxide 33 H Anion Gap 6 BUN 37 H Creatinine 0.97 Estim Creat Clear Calc 40 Estimated GFR 54 L Glucose 91 Calcium 8.7 Magnesium 2.2 Total Bilirubin 0.8 AST 28 ALT 17 Alkaline Phosphatase 105 Total Protein 6.0 L Albumin 3.2 L
[2024-03-31] MEDS: WATER FOR IRRIGATION, STERILE 1,000 ML BOTTLE 1000 ML (20:37)
[2024-04-01] VITALS (14 sets, daily range): BP systolic 105–122; BP diastolic 61–77; PULSE 64–112; RESP 17–20; TEMP 36.4–37; O2SAT 91–95
[2024-04-01] MEDS: oxyCODONE HCL (*CRX) 5 MG TAB IR PO ×3 (00:06→11:24)
[2024-04-01] MEDS: LEVOTHYROXINE SODIUM 75 MCG TABLET BY MOUTH (05:26)
[2024-04-01 07:32] LABS: Basophils Percent Auto 0.6 % (0.2-1.2); Eosinophils Absolute Auto 0.3 K/mm3 (0-0.3); Eosinophils Percent Auto 6.7 % (0-4.4); Hematocrit 35.3 % (37.0-47.0); Hemoglobin 11.3 g/dL (12.0-15.0); Immature Granulocyte Absolute 0.02 K/mm3 (0.00-0.031); Immature Granulocyte Percent A 0.4 % (0-0.5); Lymphocytes Absolute Auto 0.44 K/mm3 (0.9-3.2); Mean Corpuscular Hemoglobin 29.4 pg (26-34); Mean Corpuscular Volume 91.7 fl (80-100); Mean Platelet Volume 11.7 fl (7.4-10.4); Monocytes Percent Auto 19.8 % (2.6-8.5); Neutrophils Absolute Auto 3.1 K/mm3 (1.3-6.7); Neutrophils Percent Auto 63.5 % (45.5-73.1); Platelet Count Result 188 k/mm3 (150-375); Red Blood Count 3.85 M/mm3 (4.2-5.4); Red Cell Distribution Width 14.4 % (11.5-14.5); White Blood Count 4.9 K/mm3 (4.5-10.0)
[2024-04-01 07:40] LABS: Anion Gap 8 mmol/L (4-12); Blood Urea Nitrogen 31 mg/dL (7-17); Calcium 8.4 mg/dL (8.4-10.2); Carbon Dioxide 32 mmol/L (22-30); Chloride 92 mmol/L (98-107); Estimated CRCL calculation 49 ml/min; Estimated Glomerular Filt Rate > 60; Glucose 94 mg/dL (65-110); Magnesium 2.1 mg/dL (1.6-2.3); Potassium 4.2 mmol/L (3.4-5.0); Sodium 132 mmol/L (137-145)
[2024-04-01 08:00] LABS: INR 2.6; Prothrombin Time 28.7 Seconds (11.1-14.7)
[2024-04-01] MEDS: FLUTICASONE/SALMETEROL 45-21 MCG INHALER 1 PUFF 2 PUFF INHALATION ×2 (08:51→21:33)
[2024-04-01] MEDS: LIDOCAINE 5% PATCH 1 PATCH TRANSDERM (09:18)
[2024-04-01] MEDS: amLODIPine BESYLATE 5 MG TABLET BY MOUTH (09:25)
[2024-04-01] MEDS: FUROSEMIDE 40 MG TABLET PO (09:25)
[2024-04-01] MEDS: ATORVASTATIN 40 MG TABLET PO (09:25)
[2024-04-01] MEDS: AMIODARONE HCL 200 MG TABLET PO (09:25)
[2024-04-01] MEDS: CALCIUM CARBONATE (OSCAL) 500 MG TABLET PO (09:25)
[2024-04-01] MEDS: ASCORBIC ACID 500 MG TABLET 1000 MG PO (09:25)
[2024-04-01] MEDS: METOPROLOL SUCCINATE EXT REL 50 MG TABCR PO (09:25)
[2024-04-01] MEDS: busPIRone HCL 5 MG TABLET PO ×2 (09:25→17:18)
--- NOTE | 2024-04-01 10:45 | PM.IMPN ---
Progress Note: A&P Assessment and Plan (1) Pneumothorax: Code(s): J93.9 - Pneumothorax, unspecified Status: Acute (2) MARC (obstructive sleep apnea): Code(s): G47.33 - Obstructive sleep apnea (adult) (pediatric) Status: Acute (3) Chronic respiratory failure: Qualifiers: Respiratory failure complication: hypoxia Qualified Code(s): J96.11 - Chronic respiratory failure with hypoxia Code(s): J96.10 - Chronic respiratory failure, unspecified whether with hypoxia or hypercapnia Status: Acute (4) COPD (chronic obstructive pulmonary disease): Qualifiers: COPD type: unspecified COPD Qualified Code(s): J44.9 - Chronic obstructive pulmonary disease, unspecified Code(s): J44.9 - Chronic obstructive pulmonary disease, unspecified Status: Acute (5) Closed rib fracture: Code(s): S22.39XA - Fracture of one rib, unspecified side, initial encounter for closed fracture Status: Acute (6) GERD (gastroesophageal reflux disease): Qualifiers: Esophagitis presence: without esophagitis Qualified Code(s): K21.9 - Gastro-esophageal reflux disease without esophagitis Code(s): K21.9 - Gastro-esophageal reflux disease without esophagitis Status: Acute (7) Hypothyroidism: Qualifiers: Hypothyroidism type: acquired Qualified Code(s): E03.9 - Hypothyroidism, unspecified Code(s): E03.9 - Hypothyroidism, unspecified Status: Acute (8) Hyperlipidemia: Qualifiers: Hyperlipidemia type: elevated lipoprotein(a) Qualified Code(s): E78.41 - Elevated Lipoprotein(a) Code(s): E78.5 - Hyperlipidemia, unspecified Status: Acute (9) Afib: Qualifiers: Atrial fibrillation type: unspecified Qualified Code(s): I48.91 - Unspecified atrial fibrillation Code(s): I48.91 - Unspecified atrial fibrillation Status: Acute (10) CHF (congestive heart failure): Qualifiers: Heart failure chronicity: unspecified Heart failure type: unspecified Qualified Code(s): I50.9 - Heart failure, unspecified Code(s): I50.9 - Heart failure, unspecified Status: Acute (11) Hypertension: Qualifiers: Hypertension type: primary hypertension Qualified Code(s): I10 - Essential (primary) hypertension Code(s): I10 - Essential (primary) hypertension Status: Acute Plan This is an 88-year-old female presented to the ER after ground level fall. She was getting something out of a cabinet when she lost her balance and fell backwards hitting a chair. She had pain in her right back. She then developed shortness of breath. She came to the ER to be evaluated. She denies head trauma loss of consciousness. She has been ambulatory since the incident. Patient is supposed to be on anticoagulation for atrial fibrillation but ran out of her Eliquis 4 days ago. She has been prescribed Coumadin by her farm equipment service technician but has not started taking Acute pneumothorax Likely resulting in a fall a needle decompression was performed for suspected tension pneumothorax the 2nd intercostal space on the right significant dickerson air. CT chest performed which showed right-sided pneumothorax with subcutaneous air along the right anterolateral chest wall and posterior medial chest wall. Chest tube was placed, consulted general surgeon for management Chest tube has now been removed 03/29/2024. COPD acute on chronic chronic hypoxic respiratory failure on home oxygen with acute exacerbation 03/29/2024. IV Lasix received overnight. CTA Negative for PE or pneumonia. Patient is on nasal cannular 6-8 L Start DuoNeb scheduled albuterol nebulizer p.r.n., follow-up ABG Diastolic heart failure with mild exacerbation. Echocardiogram showed EF of 60-65%, mild pulmonary hypertension, diastolic dysfunction is indeterminate Received IV Lasix On Lasix 40 mg daily p.o. Patient is fluid overloaded Change to Lasix 20 mg b.i.d. IV push and give Lasix 40 mg ivp once Acute on chronic respiratory failure Patient need 1-2 L oxygen and home Now patient has worsening dyspnea Likely resulting from COPD and fluid overload ABG showed hypercapnic and hypoxemic respiratory failure Start bronchodilators, and start IV Lasix Atrial fibrillation on amiodarone and metoprolol And warfarin 3 mg daily Air 2.6 today Hypothyroidism On Synthroid 75 mcg daily p.o. Hypertension Amlodipine 5 mg daily p.o. Blood pressure is controlled Hyperlipidemia On Lipitor 40 mg daily p.o. GERD Varicose vein Osteoarthritis Anticoagulation with Eliquis DVT prophylaxis currently on warfarin INR Code status full code Subjective Date/time seen: 04/01/24 10:45 Interval history: I saw examined the patient today, patient still has dyspnea with minimal exertion. Patient denies chest pain, nausea vomiting headache, focal weakness. Patient still need 6 L oxygen via nasal cannula Exam Narrative: GENERAL: Pleasant, in no acute distress. Well-nourished. - EYES: EOMI. Anicteric. - HENT: Moist mucous membranes. - LUNGS: Crackles bilateral base, no wheezing, rhonchi, - CARDIOVASCULAR: Regular rate and rhythm. No murmur. No JVD. - ABDOMEN: Soft, non-tender and non-distended. No palpable masses. - EXTREMITIES: No edema. Peripheral pulses 2+. Non-tender. - NEUROLOGIC: No focal neurological deficits. CN II-XII grossly intact. - PSYCHIATRIC: Awake, Alert and oriented x 3. Appropriate mood and affect. - SKIN: No rashes or lesions. Warm. - LYMPH: No cervical lymphadenopathy. Objective Data Vital Signs Vital Signs: Vital Signs - 24 hr 03/31/24 14:00 03/31/24 19:50 03/31/24 20:25 Temperature 99.2 F Pulse Rate 102 H 102 H 110 H Respiratory Rate 15 15 Blood Pressure 125/77 Pulse Oximetry 90 90 87 L Oxygen Delivery Nasal Cannula Nasal Cannula Oxygen Flow Rate 6 5 03/31/24 20:25 03/31/24 20:32 03/31/24 20:39 Temperature Pulse Rate 110 H Respiratory Rate 20 Blood Pressure Pulse Oximetry 87 L 93 Oxygen Delivery Nasal Cannula Nasal Cannula Oxygen Flow Rate 6 8 03/31/24 21:37 04/01/24 05:54 04/01/24 08:52 Temperature 98.6 F 97.5 F L Pulse Rate 115 H 96 Respiratory Rate 22 H 20 Blood Pressure 115/70 118/68 Pulse Oximetry 92 94 94 Oxygen Delivery High Flow Nasal Cannula Oxygen Flow Rate 6 04/01/24 09:25 04/01/24 09:25 Temperature Pulse Rate 101 H 101 H Respiratory Rate Blood Pressure Pulse Oximetry Oxygen Delivery Oxygen Flow Rate Intake/Output Intake/Output: Intake & Output 03/29/24 03/30/24 03/31/24 04/01/24 23:59 23:59 23:59 23:59 Intake Total 503 230 1692 315 Output Total 1118 350 120 Balance -898 069 7396 315 Meds/Results Medications: Active Medications Generic Name Dose Route Start Last Admin Trade Name Freq PRN Reason Stop Dose Admin Acetaminophen 1,000 mg 03/28/24 09:37 03/29/24 20:46 Acetaminophen 500 Mg Tablet PO 1,000 mg Q6H PRN Administration Mild Pain (1-3) or Fever Hydrocodone Bitart/Acetaminophen 1 tab 03/28/24 09:33 03/30/24 18:04 Hydrocodone/Acetaminophen (*Crx) 5-325 Mg Tablet PO 1 tab Q4H PRN Administration Pain Rated 4-6 Amiodarone HCl 200 mg 03/27/24 09:00 04/01/24 09:25 Amiodarone Hcl 200 Mg Tablet PO 200 mg DAILY MIGUEL Administration Amlodipine Besylate 5 mg 03/27/24 09:00 04/01/24 09:25 Amlodipine Besylate 5 Mg Tablet BY MOUTH 5 mg DAILY MIGUEL Administration Ascorbic Acid 1,000 mg 03/27/24 09:00 04/01/24 09:25 Ascorbic Acid 500 Mg Tablet PO 1,000 mg QAM MIGUEL Administration Atorvastatin Calcium 40 mg 03/27/24 09:00 04/01/24 09:25 Atorvastatin 40 Mg Tablet PO 40 mg DAILY MIGUEL Administration Buspirone HCl 5 mg 03/27/24 09:00 04/01/24 09:25 Buspirone Hcl 5 Mg Tablet PO 5 mg BID MIGUEL Administration Calcium Carbonate 500 mg 03/27/24 09:00 04/01/24 09:25 Calcium Carbonate (Oscal) 500 Mg Tablet PO 500 mg QAM MIGUEL Administration Furosemide 40 mg 03/27/24 09:00 04/01/24 09:25 Furosemide 40 Mg Tablet PO 40 mg DAILY MIGUEL Administration Hydromorphone HCl 0.5 mg 03/28/24 09:33 03/31/24 06:33 Hydromorphone Hcl Inj (*Crx) 1 Mg/Ml Syr IV PUSH 0.5 mg Q3H PRN Administration Pain Rated 7-10 Levothyroxine Sodium 75 mcg 03/28/24 06:30 04/01/24 05:26 Levothyroxine Sodium 75 Mcg Tablet BY MOUTH 75 mcg DAILY@0630 MIGUEL Administration Lidocaine 1 patch 03/30/24 09:00 04/01/24 09:18 Lidocaine 5% Patch TRANSDERM 1 patch DAILY MIGUEL Administration Metoprolol Succinate 50 mg 03/27/24 09:00 04/01/24 09:25 Metoprolol Succinate Ext Rel 50 Mg Tabcr PO 50 mg QAM MIGUEL Administration * Home Med * 300 mg 03/31/24 11:00 03/31/24 11:12 Dupilumab [Dupixent SUB-Q 04/30/24 10:59 300 mg Syringe] 300 Mg/2 Ml [id number] MIGUEL Administration Syringe Oxycodone HCl 5 mg 03/28/24 09:33 04/01/24 06:43 Oxycodone Hcl (*Crx) 5 Mg Tab Ir PO 5 mg Q4H PRN Administration Pain Rated 7-10 Potassium Chloride 20 meq 03/27/24 09:00 03/30/24 18:02 Potassium Chloride 20 Meq Er Tablet PO 20 meq BID MIGUEL Administration Fluticasone/Salmeterol 2 puff 03/27/24 20:00 04/01/24 08:51 Fluticasone/Salmeterol 45-21 Mcg Inhaler 1 Puff INHALATION 2 puff Q12HRT [facility] Administration Senna/Docusate Sodium 2 tab 03/28/24 22:25 04/01/24 09:26 Senna/Docusate Sodium Tablet PO Not Given BID [facility] Warfarin Sodium 3 mg 03/31/24 13:46 Warfarin (*Pbkc) 3 Mg Tablet PO EVENING [facility] Radiology Results: ITS Impressions Chest CT 03/26/24 21:50 IMPRESSION: Redemonstration of a right-sided pneumothorax, approximately 15-20% in size with a right posterior medial fifth rib fracture. Head CT 03/26/24 23:09 Impression: No acute intracranial hemorrhage or suspicious mass effect. Cervical Spine CT 03/26/24 23:13 Impression: Straightening and slight reversal of the normal curvature of the cervical spine, likely muscular in origin. Significant degenerative disease, without acute fracture. Chest CTA 03/29/24 08:00 IMPRESSION: 1. Right chest tube in expected position with small right pleural effusion but no pneumothorax. 2. Mild emphysema with mild dependent atelectasis in both lungs. 3. Cardiomegaly with biatrial enlargement. 4. Enlargement of the central pulmonary arteries consistent with pulmonary arterial hypertension. 5. Recent-appearing nondisplaced fractures of the posterior right fifth and sixth ribs. Chest X-Ray 03/31/24 06:40 Impression: COPD. Minimal right pleural effusion. Labs Labs: Laboratory Results - last 24 hr 04/01/24 07:08 WBC 4.9 RBC 3.85 L Hgb 11.3 L Hct 35.3 L MCV 91.7 MCH 29.4 MCHC 32.0 RDW 14.4 Plt Count 188 MPV 11.7 H Immature Gran % (Auto) 0.4 Neut % (Auto) 63.5 Lymph % (Auto) 9.0 L [place] % (Auto) 19.8 H Eos % (Auto) 6.7 H Baso % (Auto) 0.6 Lymph # (Auto) 0.44 L [place] # (Auto) 1.0 H Eos # (Auto) 0.3 Baso # (Auto) 0.0 Abs Immat Gran (auto) 0.02 Absolute Neuts (auto) 3.1 Absolute Nucleated RBC 0.000 Nucleated RBC % 0.0 PT 28.7 H INR 2.6 Sodium 132 L Potassium 4.2 Chloride 92 L Carbon Dioxide 32 H Anion Gap 8 BUN 31 H Creatinine 0.77 Estim Creat Clear Calc 49 Estimated GFR > 60 Glucose 94 Calcium 8.4 Magnesium 2.1
[2024-04-01 11:21] LABS: Alveolar/Arterial O2 Gradient 196.9 mmHg; Base Excess ABG 4.8 mEq/l (+/-2.0); Fractional Inspired Oxygen 44 %; HCO3 ABG 30.3 mEq/l (22.0-26.0); Oxygen Content ABG 15.7 %vol (16.0-22.0); Oxygen Saturation ABG 91.8 % (95.0-100.0); Oxyhemoglobin 90.7 % THb (90.0-100.0); PCO2 ABG 48.3 mmHg (35.0-45.0); PO2 ABG 61.8 mmHg (80.0-100.0); Total Hemoglobin 12.3 g/dL (12.0-18.0); pH ABG 7.415 (7.350-7.450)
[2024-04-01 11:22] LABS: Device HIGH FLOW NASAL CANN; Modified Allen's Test Pass; Site Drawn RIGHT RADIAL
[2024-04-01] MEDS: IPRATROPIUM 0.5 MG/ALBUTEROL SULFATE 2.5 MG AMPUL.NEB 3 ML INHALATION ×2 (13:56→21:33)
[2024-04-01] MEDS: FUROSEMIDE INJ 40 MG/4 ML VIAL IV PUSH (16:40)
[2024-04-02] VITALS (15 sets, daily range): BP systolic 108–120; BP diastolic 69–77; PULSE 61–115; RESP 17–22; TEMP 36.1–37; O2SAT 93–96
[2024-04-02] MEDS: LEVOTHYROXINE SODIUM 75 MCG TABLET BY MOUTH (05:56)
[2024-04-02 06:46] LABS: INR 2.4; Prothrombin Time 26.9 Seconds (11.1-14.7)
[2024-04-02] MEDS: FLUTICASONE/SALMETEROL 45-21 MCG INHALER 1 PUFF 2 PUFF INHALATION ×2 (08:15→20:35)
[2024-04-02] MEDS: IPRATROPIUM 0.5 MG/ALBUTEROL SULFATE 2.5 MG AMPUL.NEB 3 ML INHALATION ×3 (08:15→20:34)
[2024-04-02] MEDS: LIDOCAINE 5% PATCH 1 PATCH TRANSDERM (08:33)
[2024-04-02] MEDS: busPIRone HCL 5 MG TABLET PO ×2 (08:34→16:21)
[2024-04-02] MEDS: CALCIUM CARBONATE (OSCAL) 500 MG TABLET PO (08:34)
[2024-04-02] MEDS: METOPROLOL SUCCINATE EXT REL 50 MG TABCR PO (08:34)
[2024-04-02] MEDS: ASCORBIC ACID 500 MG TABLET 1000 MG PO (08:34)
[2024-04-02] MEDS: AMIODARONE HCL 200 MG TABLET PO (08:35)
[2024-04-02] MEDS: ATORVASTATIN 40 MG TABLET PO (08:35)
[2024-04-02] MEDS: FUROSEMIDE INJ 40 MG/4 ML VIAL 20 MG IV PUSH ×2 (08:35→16:22)
[2024-04-02] MEDS: amLODIPine BESYLATE 5 MG TABLET BY MOUTH (08:35)
[2024-04-02] MEDS: SENNA/DOCUSATE SODIUM TABLET 2 TAB PO ×2 (08:35→16:21)
--- NOTE | 2024-04-02 10:03 | P.PNIM_ITS ---
Progress Note: A&P Assessment and Plan (1) Pneumothorax: Code(s): J93.9 - Pneumothorax, unspecified Status: Acute (2) MARC (obstructive sleep apnea): Code(s): G47.33 - Obstructive sleep apnea (adult) (pediatric) Status: Acute (3) Chronic respiratory failure: Qualifiers: Respiratory failure complication: hypoxia Qualified Code(s): J96.11 - Chronic respiratory failure with hypoxia Code(s): J96.10 - Chronic respiratory failure, unspecified whether with hypoxia or hypercapnia Status: Acute (4) COPD (chronic obstructive pulmonary disease): Qualifiers: COPD type: unspecified COPD Qualified Code(s): J44.9 - Chronic obstructive pulmonary disease, unspecified Code(s): J44.9 - Chronic obstructive pulmonary disease, unspecified Status: Acute (5) Closed rib fracture: Code(s): S22.39XA - Fracture of one rib, unspecified side, initial encounter for closed fracture Status: Acute (6) GERD (gastroesophageal reflux disease): Qualifiers: Esophagitis presence: without esophagitis Qualified Code(s): K21.9 - Gastro-esophageal reflux disease without esophagitis Code(s): K21.9 - Gastro-esophageal reflux disease without esophagitis Status: Acute (7) Hypothyroidism: Qualifiers: Hypothyroidism type: acquired Qualified Code(s): E03.9 - Hypothyroidism, unspecified Code(s): E03.9 - Hypothyroidism, unspecified Status: Acute (8) Hyperlipidemia: Qualifiers: Hyperlipidemia type: elevated lipoprotein(a) Qualified Code(s): E78.41 - Elevated Lipoprotein(a) Code(s): E78.5 - Hyperlipidemia, unspecified Status: Acute (9) Afib: Qualifiers: Atrial fibrillation type: unspecified Qualified Code(s): I48.91 - U nspecified atrial fibrillation Code(s): I48.91 - Unspecified atrial fibrillation Status: Acute (10) CHF (congestive heart failure): Qualifiers: Heart failure chronicity: unspecified Heart failure type: unspecified Qualified Code(s): I50.9 - Heart failure, unspecified Code(s): I50.9 - Heart failure, unspecified Status: Acute (11) Hypertension: Qualifiers: Hypertension type: primary hypertension Qualified Code(s): I10 - Essential (primary) hypertension Code(s): I10 - Essential (primary) hypertension Status: Acute Plan This is an 88-year-old female presented to the ER after ground level fall. She was getting something out of a cabinet when she lost her balance and fell backwards hitting a chair. She had pain in her right back. She then developed shortness of breath. She came to the ER to be evaluated. She denies head trauma loss of consciousness. She has been ambulatory since the incident. Patient is supposed to be on anticoagulation for atrial fibrillation but ran out of her Eliquis 4 days ago. She has been prescribed Coumadin by her instructional material director but has not started taking Acute pneumothorax Likely resulting in a fall a needle decompression was performed for suspected tension pneumothorax the 2nd intercostal space on the right significant dickerson air. CT chest performed which showed right-sided pneumothorax with subcutaneous air along the right anterolateral chest wall and posterior medial chest wall. Chest tube was placed, consulted general surgeon for management Chest tube has now been removed 03/29/2024. COPD acute on chronic chronic hypoxic respiratory failure on home oxygen with acute exacerbation 03/29/2024. IV Lasix received overnight. CTA Negative for PE or pneumonia. Patient is on nasal cannular 6 L Start DuoNeb scheduled albuterol nebulizer p.r.n., follow-up ABG Diastolic heart failure with exacerbation. Echocardiogram showed EF of 60-65%, mild pulmonary hypertension, diastolic dysfunction is indeterminate Received IV Lasix On Lasix 40 mg daily p.o. Patient is fluid overloaded Change to Lasix 20 mg b.i.d. IV push and give Lasix 40 mg ivp once 04/01 X-ray showed cardiomegaly, increased interstitial change, increase to 40mg bid 04/02 Follow-up input output Follow-up BMP and BNP Hyponatremia Likely secondary to poor oral intake and IV Lasix Provide sodium chloride 1 g b.i.d. p.o. Acute on chronic respiratory failure Patient need 1-2 L oxygen and home Now patient has worsening dyspnea Likely resulting from COPD and fluid overload ABG showed hypercapnic and hypoxemic respiratory failure Start bronchodilators, and start IV Lasix 04/01 X-ray showed cardiomegaly atelectasis Continue O2 therapy Provide incentive spirometry Atrial fibrillation on amiodarone and metoprolol And warfarin 3 mg daily Air 2.6 today Hypothyroidism On Synthroid 75 mcg daily p.o. Hypertension Amlodipine 5 mg daily p.o. Blood pressure is controlled Hyperlipidemia On Lipitor 40 mg daily p.o. GERD Varicose vein Osteoarthritis Anticoagulation with Eliquis DVT prophylaxis currently on warfarin INR Code status full code Subjective Date/time seen: 04/02/24 10:03 Interval history: I saw examined the patient today, patient feels dyspnea is improving. Patient denies chest pain, nausea vomiting headache, focal weakness. Patient still need 6 L oxygen via nasal cannula. Chest x-ray shows cardiomegaly, atelectasis Exam Narrative: GENERAL: Pleasant, in no acute distress. Well-nourished. - EYES: EOMI. Anicteric. - HENT: Moist mucous membranes. - LUNGS: Crackles bilateral base, reduc ing. No wheezing, rhonchi, - CARDIOVASCULAR: Regular rate and rhyth m. No murmur. No JVD. - ABDOMEN: Soft, non-tender and non-dist ended. No palpable masses. - EXTREMITIES: No edema. Peripheral puls es 2+. Non-tender. - NEUROLOGIC: No focal neurological defi cits. CN II-XII grossly intact. - PSYCHIATRIC: Awake, Alert and oriented x 3. Appropriate mood and affect. - SKIN: No rashes or lesions. Warm. - LYMPH: No cervical lymphadenopathy. Objective Data Vital Signs Vital Signs: Vital Signs - 24 hr 04/01/24 11:40 04/01/24 13:56 04/01/24 13:57 Temperature Pulse Rate 82 Respiratory Rate 20 Blood Pressure Pulse Oximetry 92 Oxygen Delivery Nasal Cannula High Flow Nasal Cannula Oxygen Flow Rate 6 6 04/01/24 14:00 04/01/24 14:05 04/01/24 17:38 Temperature 97.5 F L Pulse Rate 99 86 110 H Respiratory Rate 18 20 Blood Pressure 115/71 105/61 Pulse Oximetry 92 94 Oxygen Delivery Oxygen Flow Rate 04/01/24 21:06 04/01/24 21:34 04/01/24 21:44 Temperature Pulse Rate 64 86 Respiratory Rate 20 20 Blood Pressure Pulse Oximetry 92 Oxygen Delivery High Flow Nasal Cannula Oxygen Flow Rate 6 04/01/24 21:46 04/01/24 22:45 04/02/24 05:33 Temperature 98.6 F 98.2 F Pulse Rate 112 H 99 Respiratory Rate 17 17 Blood Pressure 122/77 120/77 Pulse Oximetry 92 95 93 Oxygen Delivery High Flow Nasal Cannula Oxygen Flow Rate 6 04/02/24 08:17 04/02/24 08:27 04/02/24 08:34 Temperature Pulse Rate 105 H 107 H 111 H Respiratory Rate 20 20 Blood Pressure Pulse Oximetry Oxygen Delivery Oxygen Flow Rate 04/02/24 08:35 Temperature Pulse Rate 111 H Respiratory Rate Blood Pressure Pulse Oximetry Oxygen Delivery Oxygen Flow Rate Intake/Output Intake/Output: Intake & Output 03/30/24 03/31/24 04/01/24 04/02/24 23:59 23:59 23:59 23:59 Intake Total 920 1537 792 822 Output Total 350 120 Balance 570 1417 792 822 Meds/Results Medications: Active Medications Generic Name Dose Route Start Last Admin Trade Name Freq PRN Reason Stop Dose Admin Acetaminophen 1,000 mg 03/28/24 09:37 03/29/24 20:46 Acetaminophen 500 Mg Tablet PO 1,000 mg Q6H PRN Administration Mild Pain (1-3) or Fever Hydrocodone Bitart/Acetaminophen 1 tab 03/28/24 09:33 03/30/24 18:04 Hydrocodone/Acetaminophen (*Crx) 5-325 Mg Tablet PO 1 tab Q4H PRN Administration Pain Rated 4-6 Albuterol 2.5 mg 04/01/24 10:57 Albuterol Sulfate Neb 2.5 Mg/3 Ml Inh INHALATION Q4HRT PRN Shortness Of Breath Albuterol/Ipratropium 3 ml 04/01/24 14:00 04/02/24 08:15 Ipratropium 0.5 Mg/Albuterol Sulfate 2.5 Mg Ampul.Neb 3 Ml INHALATION 3 ml Q6HRT MIGUEL Administration Amiodarone HCl 200 mg 03/27/24 09:00 04/02/24 08:35 Amiodarone Hcl 200 Mg Tablet PO 200 mg DAILY MIGUEL Administration Amlodipine Besylate 5 mg 03/27/24 09:00 04/02/24 08:35 Amlodipine Besylate 5 Mg Tablet BY MOUTH 5 mg DAILY MIGUEL Administration Ascorbic Acid 1,000 mg 03/27/24 09:00 04/02/24 08:34 Ascorbic Acid 500 Mg Tablet PO 1,000 mg QAM MIGUEL Administration Atorvastatin Calcium 40 mg 03/27/24 09:00 04/02/24 08:35 Atorvastatin 40 Mg Tablet PO 40 mg DAILY MIGUEL Administration Buspirone HCl 5 mg 03/27/24 09:00 04/02/24 08:34 Buspirone Hcl 5 Mg Tablet PO 5 mg BID MIGUEL Administration Calcium Carbonate 500 mg 03/27/24 09:00 04/02/24 08:34 Calcium Carbonate (Oscal) 500 Mg Tablet PO 500 mg QAM MIGUEL Administration Furosemide 20 mg 04/02/24 09:00 04/02/24 08:35 Furosemide Inj 40 Mg/4 Ml Vial IV PUSH 20 mg BID MIGUEL Administration Hydromorphone HCl 0.5 mg 03/28/24 09:33 03/31/24 06:33 Hydromorphone Hcl Inj (*Crx) 1 Mg/Ml Syr IV PUSH 0.5 mg Q3H PRN Administration Pain Rated 7-10 Levothyroxine Sodium 75 mcg 03/28/24 06:30 04/02/24 05:56 Levothyroxine Sodium 75 Mcg Tablet BY MOUTH 75 mcg DAILY@0630 MIGUEL Administration Lidocaine 1 patch 03/30/24 09:00 04/02/24 08:33 Lidocaine 5% Patch TRANSDERM 1 patch DAILY MIGUEL Administration Metoprolol Succinate 50 mg 03/27/24 09:00 04/02/24 08:34 Metoprolol Succinate Ext Rel 50 Mg Tabcr PO 50 mg QAM MIGUEL Administration * Home Med * 300 mg 03/31/24 11:00 03/31/24 11:12 Dupilumab [Dupixent SUB-Q 04/30/24 10:59 300 mg Syringe] 300 Mg/2 Ml [id number] MIGUEL Administration Syringe Oxycodone HCl 5 mg 03/28/24 09:33 04/01/24 11:24 Oxycodone Hcl (*Crx) 5 Mg Tab Ir PO 5 mg Q4H PRN Administration Pain Rated 7-10 Potassium Chloride 20 meq 03/27/24 09:00 03/30/24 18:02 Potassium Chloride 20 Meq Er Tablet PO 20 meq BID MIGUEL Administration Fluticasone/Salmeterol 2 puff 03/27/24 20:00 04/02/24 08:15 Fluticasone/Salmeterol 45-21 Mcg Inhaler 1 Puff INHALATION 2 puff Q12HRT MIGUEL Administration Senna/Docusate Sodium 2 tab 03/28/24 22:25 04/02/24 08:35 Senna/Docusate Sodium Tablet PO 2 tab BID MIGUEL Administration Warfarin Sodium 3 mg 03/31/24 13:46 Warfarin (*Pbkc) 3 Mg Tablet PO EVENING [facility] Radiology Results: ITS Impressions Chest CT 03/26/24 21:50 IMPRESSION: Redemonstration of a right-sided pneumothorax, approximately 15-20% in size with a right posterior medial fifth rib fracture. Head CT 03/26/24 23:09 Impression: No acute intracranial hemorrhage or suspicious mass effect. Cervical Spine CT 03/26/24 23:13 Impression: Straightening and slight reversal of the normal curvature of the cervical spine, likely muscular in origin. Significant degenerative disease, without acute fracture. Chest CTA 03/29/24 08:00 IMPRESSION: 1. Right chest tube in expected position with small right pleural effusion but no pneumothorax. 2. Mild emphysema with mild dependent atelectasis in both lungs. 3. Cardiomegaly with biatrial enlargement. 4. Enlargement of the central pulmonary arteries consistent with pulmonary arterial hypertension. 5. Recent-appearing nondisplaced fractures of the posterior right fifth and sixth ribs. Chest X-Ray 03/31/24 06:40 Impression: COPD. Minimal right pleural effusion. Labs Labs: Laboratory Results - last 24 hr 04/01/24 04/02/24 11:13 05:39 PT 26.9 H INR 2.4 Puncture Site Right radial ABG pH 7.415 ABG pCO2 48.3 H ABG pO2 61.8 L ABG PO2/FiO2 Ratio 1.40 ABG HCO3 30.3 H ABG O2 Saturation 91.8 L ABG O2 Content 15.7 L ABG Base Excess 4.8 A-a Gradient 196.9 Oxyhemoglobin 90.7 Total Hemoglobin 12.3 O2 Delivery Device High flow nasal reji O2 Liters/Min 6.0 FiO2 44
[2024-04-02] MEDS: oxyCODONE HCL (*CRX) 5 MG TAB IR PO (11:00)
[2024-04-02 15:18] LABS: Basophils Percent Auto 0.4 % (0.2-1.2); Eosinophils Absolute Auto 0.2 K/mm3 (0-0.3); Hematocrit 35.1 % (37.0-47.0); Hemoglobin 11.3 g/dL (12.0-15.0); Immature Granulocyte Absolute 0.02 K/mm3 (0.00-0.031); Immature Granulocyte Percent A 0.4 % (0-0.5); Lymphocytes Absolute Auto 0.39 K/mm3 (0.9-3.2); Lymphocytes Percent Auto 7.4 % (18.3-44.2); Mean Corpuscular HGB Conc 32.2 g/dl (32-36); Mean Corpuscular Hemoglobin 29.5 pg (26-34); Mean Corpuscular Volume 91.6 fl (80-100); Mean Platelet Volume 10.9 fl (7.4-10.4); Monocytes Absolute Auto 0.9 K/mm3 (0.1-0.6); Monocytes Percent Auto 16.3 % (2.6-8.5); Neutrophils Absolute Auto 3.8 K/mm3 (1.3-6.7); Neutrophils Percent Auto 71.5 % (45.5-73.1); Platelet Count Result 198 k/mm3 (150-375); Red Blood Count 3.83 M/mm3 (4.2-5.4); Red Cell Distribution Width 14.3 % (11.5-14.5); White Blood Count 5.3 K/mm3 (4.5-10.0)
[2024-04-02 15:29] LABS: Anion Gap 7 mmol/L (4-12); Blood Urea Nitrogen 27 mg/dL (7-17); Calcium 8.2 mg/dL (8.4-10.2); Carbon Dioxide 31 mmol/L (22-30); Chloride 91 mmol/L (98-107); Estimated CRCL calculation 54 ml/min; Estimated Glomerular Filt Rate > 60; Glucose 109 mg/dL (65-110); Potassium 3.6 mmol/L (3.4-5.0); Sodium 129 mmol/L (137-145)
[2024-04-02 15:35] LABS: NT Pro B Type Natriuretic Pept 4390 pg/mL (19.9-100)
[2024-04-02] MEDS: SODIUM CHLORIDE 1 GM TABLET PO (16:21)
[2024-04-02] MEDS: HYDROcodone/acetaminophen (*CRX) 5-325 MG TABLET 1 TAB PO (16:37)
[2024-04-03] VITALS (11 sets, daily range): BP systolic 108–126; BP diastolic 62–84; PULSE 92–114; RESP 18–20; TEMP 36.3–36.7; O2SAT 91–94
[2024-04-03] MEDS: HYDROcodone/acetaminophen (*CRX) 5-325 MG TABLET 1 TAB PO ×3 (00:54→20:48)
[2024-04-03] MEDS: IPRATROPIUM 0.5 MG/ALBUTEROL SULFATE 2.5 MG AMPUL.NEB 3 ML INHALATION ×3 (01:49→14:15)
[2024-04-03] MEDS: SENNA/DOCUSATE SODIUM TABLET 2 TAB PO ×2 (05:26→17:00)
[2024-04-03] MEDS: LEVOTHYROXINE SODIUM 75 MCG TABLET BY MOUTH (05:42)
[2024-04-03 06:35] LABS: INR 2.2; Prothrombin Time 24.7 Seconds (11.1-14.7)
[2024-04-03] MEDS: FUROSEMIDE INJ 40 MG/4 ML VIAL 20 MG IV PUSH ×2 (08:10→17:00)
[2024-04-03] MEDS: AMIODARONE HCL 200 MG TABLET PO (08:10)
[2024-04-03] MEDS: amLODIPine BESYLATE 5 MG TABLET BY MOUTH (08:11)
[2024-04-03] MEDS: LIDOCAINE 5% PATCH 1 PATCH TRANSDERM (08:11)
[2024-04-03] MEDS: ATORVASTATIN 40 MG TABLET PO (08:12)
[2024-04-03] MEDS: busPIRone HCL 5 MG TABLET PO ×2 (08:12→17:00)
[2024-04-03] MEDS: ASCORBIC ACID 500 MG TABLET 1000 MG PO (08:12)
[2024-04-03] MEDS: SODIUM CHLORIDE 1 GM TABLET PO ×2 (08:12→17:00)
[2024-04-03] MEDS: CALCIUM CARBONATE (OSCAL) 500 MG TABLET PO (08:12)
[2024-04-03] MEDS: METOPROLOL SUCCINATE EXT REL 50 MG TABCR PO (08:12)
[2024-04-03] MEDS: FLUTICASONE/SALMETEROL 45-21 MCG INHALER 1 PUFF 2 PUFF INHALATION (09:50)
--- NOTE | 2024-04-03 11:18 | P.PNIM_ITS ---
Progress Note: A&P Assessment and Plan (1) Pneumothorax: Code(s): J93.9 - Pneumothorax, unspecified Status: Acute (2) MARC (obstructive sleep apnea): Code(s): G47.33 - Obstructive sleep apnea (adult) (pediatric) Status: Acute (3) Chronic respiratory failure: Qualifiers: Respiratory failure complication: hypoxia Qualified Code(s): J96.11 - Chronic respiratory failure with hypoxia Code(s): J96.10 - Chronic respiratory failure, unspecified whether with hypoxia or hypercapnia Status: Acute (4) COPD (chronic obstructive pulmonary disease): Qualifiers: COPD type: unspecified COPD Qualified Code(s): J44.9 - Chronic obstructive pulmonary disease, unspecified Code(s): J44.9 - Chronic obstructive pulmonary disease, unspecified Status: Acute (5) Closed rib fracture: Code(s): S22.39XA - Fracture of one rib, unspecified side, initial encounter for closed fracture Status: Acute (6) GERD (gastroesophageal reflux disease): Qualifiers: Esophagitis presence: without esophagitis Qualified Code(s): K21.9 - Gastro-esophageal reflux disease without esophagitis Code(s): K21.9 - Gastro-esophageal reflux disease without esophagitis Status: Acute (7) Hypothyroidism: Qualifiers: Hypothyroidism type: acquired Qualified Code(s): E03.9 - Hypothyroidism, unspecified Code(s): E03.9 - Hypothyroidism, unspecified Status: Acute (8) Hyperlipidemia: Qualifiers: Hyperlipidemia type: elevated lipoprotein(a) Qualified Code(s): E78.41 - Elevated Lipoprotein(a) Code(s): E78.5 - Hyperlipidemia, unspecified Status: Acute (9) Afib: Qualifiers: Atrial fibrillation type: unspecified Qualified Code(s): I48.91 - U nspecified atrial fibrillation Code(s): I48.91 - Unspecified atrial fibrillation Status: Acute (10) CHF (congestive heart failure): Qualifiers: Heart failure chronicity: unspecified Heart failure type: unspecified Qualified Code(s): I50.9 - Heart failure, unspecified Code(s): I50.9 - Heart failure, unspecified Status: Acute (11) Hypertension: Qualifiers: Hypertension type: primary hypertension Qualified Code(s): I10 - Essential (primary) hypertension Code(s): I10 - Essential (primary) hypertension Status: Acute Plan This is an 88-year-old female presented to the ER after ground level fall. She was getting something out of a cabinet when she lost her balance and fell backwards hitting a chair. She had pain in her right back. She then developed shortness of breath. She came to the ER to be evaluated. She denies head trauma loss of consciousness. She has been ambulatory since the incident. Patient is supposed to be on anticoagulation for atrial fibrillation but ran out of her Eliquis 4 days ago. She has been prescribed Coumadin by her benefits coordinator but has not started taking Acute pneumothorax Likely resulting in a fall a needle decompression was performed for suspected tension pneumothorax the 2nd intercostal space on the right significant dickerson air. CT chest performed which showed right-sided pneumothorax with subcutaneous air along the right anterolateral chest wall and posterior medial chest wall. Chest tube was placed, consulted general surgeon for management Chest tube has now been removed 03/29/2024.has right chest wall pain at the back COPD acute on chronic chronic hypoxic respiratory failure on home oxygen with acute exacerbation 03/29/2024. IV Lasix received overnight. CTA Negative for PE or pneumonia. Patient is on nasal cannular 6 L Start DuoNeb scheduled albuterol nebulizer p.r.n., ABG: Hypercapnic and hypoxemic respiratory failure Diastolic heart failure with exacerbation. Echocardiogram showed EF of 60-65%, mild pulmonary hypertension, diastolic dysfunction is indeterminate Received IV Lasix On Lasix 40 mg daily p.o. Patient is fluid overloaded Change to Lasix 20 mg b.i.d. IV push and give Lasix 40 mg ivp once 04/01 X-ray showed cardiomegaly, increased interstitial change, increase to 40mg bid 04/02 Follow-up input output Follow-up BMP and BNP Acute on chronic respiratory failure Patient need 1-2 L oxygen and home Now patient has worsening dyspnea Likely resulting from COPD, chest restriction and fluid overload ABG showed hypercapnic and hypoxemic respiratory failure Start bronchodilators, and start IV Lasix 04/01 X-ray showed cardiomegaly atelectasis Continue O2 therapy Provide incentive spirometry Patient still needs 6 L oxygen per nasal cannular Consult momd teacher for evaluation treatment Atrial fibrillation on amiodarone and metoprolol And warfarin 3 mg daily INR in therapeutic range Hyponatremia Likely secondary to poor oral intake and IV Lasix Provide sodium chloride 1 g b.i.d. p.o. Hypothyroidism On Synthroid 75 mcg daily p.o. Hypertension Amlodipine 5 mg daily p.o. Blood pressure is controlled Hyperlipidemia On Lipitor 40 mg daily p.o. GERD Varicose vein Osteoarthritis Anticoagulation with Eliquis DVT prophylaxis currently on warfarin INR Code status full code Subjective Date/time seen: 04/03/24 11:18 Interval history: I saw examined the patient today. Patient states she is feeling better, no dyspnea at rest, but still have shortness breath with exertion. Patient has cough with scant phlegm. Patient has right chest wall pain with movement and deep breath and cough. Patient denies abdomen pain nausea vomiting diarrhea dysuria. Patient still needs 6 liter/minutes to keep pulse ox about 93-94 Exam Narrative: GENERAL: Pleasant, in no acute distress. Well-nourished. - EYES: EOMI. Anicteric. - HENT: Moist mucous membranes. - LUNGS: Crackles bilateral base, reduc ing. No wheezing, rhonchi, at right chest pain - CARDIOVASCULAR: Regular rate and rhyth m. No murmur. No JVD. - ABDOMEN: Soft, non-tender and non-dist ended. No palpable masses. - EXTREMITIES: No edema. Peripheral puls es 2+. Non-tender. - NEUROLOGIC: No focal neurological defi cits. CN II-XII grossly intact. - PSYCHIATRIC: Awake, Alert and oriented x 3. Appropriate mood and affect. - SKIN: No rashes or lesions. Warm. - LYMPH: No cervical lymphadenopathy. Objective Data Vital Signs Vital Signs: Vital Signs - 24 hr 04/02/24 14:00 04/02/24 14:29 04/02/24 14:31 Temperature 98.6 F Pulse Rate 98 61 Respiratory Rate 22 H 20 Blood Pressure 108/72 Pulse Oximetry 96 93 Oxygen Delivery High Flow Nasal Cannula Oxygen Flow Rate 6 04/02/24 14:40 04/02/24 20:00 04/02/24 20:37 Temperature Pulse Rate 78 95 Respiratory Rate 20 20 Blood Pressure Pulse Oximetry 93 Oxygen Delivery High Flow Nasal Cannula Oxygen Flow Rate 6 04/02/24 20:44 04/02/24 21:00 04/02/24 23:00 Temperature 96.9 F L Pulse Rate 115 H 98 Respiratory Rate 20 20 Blood Pressure 119/69 Pulse Oximetry 95 95 Oxygen Delivery High Flow Nasal Cannula Oxygen Flow Rate 6 04/03/24 01:51 04/03/24 01:58 04/03/24 05:50 Temperature 97.3 F L Pulse Rate 98 93 112 H Respiratory Rate 20 20 20 Blood Pressure 122/84 Pulse Oximetry 94 Oxygen Delivery Oxygen Flow Rate 04/03/24 08:10 04/03/24 09:54 04/03/24 09:54 Temperature Pulse Rate 92 98 Respiratory Rate 20 Blood Pressure Pulse Oximetry 93 Oxygen Delivery High Flow Nasal Cannula Oxygen Flow Rate 6 04/03/24 10:03 Temperature Pulse Rate 96 Respiratory Rate 20 Blood Pressure Pulse Oximetry Oxygen Delivery Oxygen Flow Rate Intake/Output Intake/Output: Intake & Output 03/31/24 04/01/24 04/02/24 04/03/24 23:59 23:59 23:59 23:59 Intake Total 4483 374 6788 670 Output Total 120 Balance 4787 496 6717 670 Meds/Results Medications: Active Medications Generic Name Dose Route Start Last Admin Trade Name Freq PRN Reason Stop Dose Admin Acetaminophen 1,000 mg 03/28/24 09:37 03/29/24 20:46 Acetaminophen 500 Mg Tablet PO 1,000 mg Q6H PRN Administration Mild Pain (1-3) or Fever Hydrocodone Bitart/Acetaminophen 1 tab 03/28/24 09:33 04/03/24 05:18 Hydrocodone/Acetaminophen (*Crx) 5-325 Mg Tablet PO 1 tab Q4H PRN Administration Pain Rated 4-6 Albuterol 2.5 mg 04/01/24 10:57 Albuterol Sulfate Neb 2.5 Mg/3 Ml Inh INHALATION Q4HRT PRN Shortness Of Breath Albuterol/Ipratropium 3 ml 04/01/24 14:00 04/03/24 09:50 Ipratropium 0.5 Mg/Albuterol Sulfate 2.5 Mg Ampul.Neb 3 Ml INHALATION 3 ml Q6HRT MIGUEL Administration Amiodarone HCl 200 mg 03/27/24 09:00 04/03/24 08:10 Amiodarone Hcl 200 Mg Tablet PO 200 mg DAILY MIGUEL Administration Amlodipine Besylate 5 mg 03/27/24 09:00 04/03/24 08:11 Amlodipine Besylate 5 Mg Tablet BY MOUTH 5 mg DAILY MIGUEL Administration Ascorbic Acid 1,000 mg 03/27/24 09:00 04/03/24 08:12 Ascorbic Acid 500 Mg Tablet PO 1,000 mg QAM MIGUEL Administration Atorvastatin Calcium 40 mg 03/27/24 09:00 04/03/24 08:12 Atorvastatin 40 Mg Tablet PO 40 mg DAILY MIGUEL Administration Buspirone HCl 5 mg 03/27/24 09:00 04/03/24 08:12 Buspirone Hcl 5 Mg Tablet PO 5 mg BID MIGUEL Administration Calcium Carbonate 500 mg 03/27/24 09:00 04/03/24 08:12 Calcium Carbonate (Oscal) 500 Mg Tablet PO 500 mg QAM MIGUEL Administration Furosemide 20 mg 04/02/24 09:00 04/03/24 08:10 Furosemide Inj 40 Mg/4 Ml Vial IV PUSH 20 mg BID MIGUEL Administration Hydromorphone HCl 0.5 mg 03/28/24 09:33 03/31/24 06:33 Hydromorphone Hcl Inj (*Crx) 1 Mg/Ml Syr IV PUSH 0.5 mg Q3H PRN Administration Pain Rated 7-10 Levothyroxine Sodium 75 mcg 03/28/24 06:30 04/03/24 05:42 Levothyroxine Sodium 75 Mcg Tablet BY MOUTH 75 mcg DAILY@0630 MIGUEL Administration Lidocaine 1 patch 03/30/24 09:00 04/03/24 08:11 Lidocaine 5% Patch TRANSDERM 1 patch DAILY MIGUEL Administration Metoprolol Succinate 50 mg 03/27/24 09:00 04/03/24 08:12 Metoprolol Succinate Ext Rel 50 Mg Tabcr PO 50 mg QAM MIGUEL Administration * Home Med * 300 mg 04/14/24 09:00 Dupilumab [Dupixent SUB-Q 05/14/24 08:59 Syringe] 300 Mg/2 Ml [id number] MIGUEL Syringe Oxycodone HCl 5 mg 03/28/24 09:33 04/02/24 11:00 Oxycodone Hcl (*Crx) 5 Mg Tab Ir PO 5 mg Q4H PRN Administration Pain Rated 7-10 Potassium Chloride 20 meq 03/27/24 09:00 03/30/24 18:02 Potassium Chloride 20 Meq Er Tablet PO 20 meq BID MIGUEL Administration Fluticasone/Salmeterol 2 puff 03/27/24 20:00 04/03/24 09:50 Fluticasone/Salmeterol 45-21 Mcg Inhaler 1 Puff INHALATION 2 puff Q12HRT MIGUEL Administration Senna/Docusate Sodium 2 tab 03/28/24 22:25 04/03/24 05:26 Senna/Docusate Sodium Tablet PO 2 tab BID MIGUEL Administration Sodium Chloride 1 gm 04/02/24 17:00 04/03/24 08:12 Sodium Chloride 1 Gm Tablet PO 1 gm BID MIGUEL Administration Warfarin Sodium 3 mg 03/31/24 13:46 Warfarin (*Pbkc) 3 Mg Tablet PO EVENING [facility] Radiology Results: ITS Impressions Chest CT 03/26/24 21:50 IMPRESSION: Redemonstration of a right-sided pneumothorax, approximately 15-20% in size with a right posterior medial fifth rib fracture. Head CT 03/26/24 23:09 Impression: No acute intracranial hemorrhage or suspicious mass effect. Cervical Spine CT 03/26/24 23:13 Impression: Straightening and slight reversal of the normal curvature of the cervical spine, likely muscular in origin. Significant degenerative disease, without acute fracture. Chest CTA 03/29/24 08:00 IMPRESSION: 1. Right chest tube in expected position with small right pleural effusion but no pneumothorax. 2. Mild emphysema with mild dependent atelectasis in both lungs. 3. Cardiomegaly with biatrial enlargement. 4. Enlargement of the central pulmonary arteries consistent with pulmonary arterial hypertension. 5. Recent-appearing nondisplaced fractures of the posterior right fifth and sixth ribs. Chest X-Ray 04/02/24 13:10 IMPRESSION: 1. Small bilateral pleural effusions with associated bibasilar atelectasis and/or pneumonia. 2. Cardiomegaly. Labs Labs: Laboratory Results - last 24 hr 04/02/24 04/03/24 15:09 06:05 WBC 5.3 RBC 3.83 L Hgb 11.3 L Hct 35.1 L MCV 91.6 MCH 29.5 MCHC 32.2 RDW 14.3 Plt Count 198 MPV 10.9 H Immature Gran % (Auto) 0.4 Neut % (Auto) 71.5 Lymph % (Auto) 7.4 L [place] % (Auto) 16.3 H Eos % (Auto) 4.0 Baso % (Auto) 0.4 Lymph # (Auto) 0.39 L [place] # (Auto) 0.9 H Eos # (Auto) 0.2 Baso # (Auto) 0.0 Abs Immat Gran (auto) 0.02 Absolute Neuts (auto) 3.8 Absolute Nucleated RBC 0.000 Nucleated RBC % 0.0 PT 24.7 H INR 2.2 Sodium 129 L Potassium 3.6 Chloride 91 L Carbon Dioxide 31 H Anion Gap 7 BUN 27 H Creatinine 0.71 Estim Creat Clear Calc 54 Estimated GFR > 60 Glucose 109 Calcium 8.2 L Magnesium 2.0 NT-Pro-B Natriuret Pep 4390 H
[2024-04-03 11:30] LABS: Hematocrit 36.9 % (37.0-47.0); Hemoglobin 11.8 g/dL (12.0-15.0); Mean Corpuscular Hemoglobin 29.8 pg (26-34); Mean Corpuscular Volume 93.2 fl (80-100); Mean Platelet Volume 12.1 fl (7.4-10.4); Platelet Count Result 205 k/mm3 (150-375); Red Blood Count 3.96 M/mm3 (4.2-5.4); Red Cell Distribution Width 14.2 % (11.5-14.5); White Blood Count 5.3 K/mm3 (4.5-10.0)
[2024-04-03 11:41] LABS: Anion Gap 8 mmol/L (4-12); Blood Urea Nitrogen 24 mg/dL (7-17); Calcium 8.1 mg/dL (8.4-10.2); Carbon Dioxide 32 mmol/L (22-30); Chloride 91 mmol/L (98-107); Estimated CRCL calculation 59 ml/min; Estimated Glomerular Filt Rate > 60; Glucose 87 mg/dL (65-110); Magnesium 2.1 mg/dL (1.6-2.3); Potassium 3.3 mmol/L (3.4-5.0); Sodium 131 mmol/L (137-145)
--- NOTE | 2024-04-03 13:10 | PCNWS ---
Weekly nutritional screen. Patient is tolerating current diet with 20-80% intake. Ensure Enlive BID for 350 kcal and 20 g protein each. No weight loss reported. No nutritional needs at this time.
[2024-04-03 14:30] LABS: Basophils Percent Auto 0.6 % (0.2-1.2); Eosinophils Absolute Auto 0.3 K/mm3 (0-0.3); Eosinophils Percent Auto 4.6 % (0-4.4); Hematocrit 36.8 % (37.0-47.0); Immature Granulocyte Absolute 0.09 K/mm3 (0.00-0.031); Immature Granulocyte Percent A 1.3 % (0-0.5); Lymphocytes Absolute Auto 0.44 K/mm3 (0.9-3.2); Lymphocytes Percent Auto 6.2 % (18.3-44.2); Mean Corpuscular HGB Conc 32.6 g/dl (32-36); Mean Corpuscular Hemoglobin 29.6 pg (26-34); Mean Corpuscular Volume 90.6 fl (80-100); Mean Platelet Volume 11.1 fl (7.4-10.4); Monocytes Percent Auto 13.7 % (2.6-8.5); Neutrophils Absolute Auto 5.3 K/mm3 (1.3-6.7); Neutrophils Percent Auto 73.6 % (45.5-73.1); Platelet Count Result 241 k/mm3 (150-375); Red Blood Count 4.06 M/mm3 (4.2-5.4); White Blood Count 7.1 K/mm3 (4.5-10.0)
[2024-04-03 14:46] LABS: Potassium 3.5 mmol/L (3.4-5.0)
[2024-04-03 14:51] LABS: Anion Gap 7 mmol/L (4-12); Blood Urea Nitrogen 24 mg/dL (7-17); Calcium 8.5 mg/dL (8.4-10.2); Carbon Dioxide 34 mmol/L (22-30); Chloride 89 mmol/L (98-107); Estimated CRCL calculation 53 ml/min; Estimated Glomerular Filt Rate > 60; Glucose 119 mg/dL (65-110); Magnesium 1.9 mg/dL (1.6-2.3); Sodium 130 mmol/L (137-145)
--- NOTE | 2024-04-03 14:52 | P.CONPL_ITS ---
Assessment and Plan Assessment and plan (1) Hypoxemia: Code(s): R09.02 - Hypoxemia Status: Acute Assessment and Plan: Patient with COPD and chronic hypoxemic respiratory failure requiring 1 L nasal cannula from home O2 assessment on 11/25/2023. she wears 1 L nasal cannula at night. Patient now admitted with a pneumothorax status post chest tube removal 03/29/2024. Repeat regarding etiology of her hypoxia: She has evidence of fluid overload with pedal edema, right greater than left pleural effusion, elevated BNP. She has minimal pain and splinting from her right pneumothorax and rib fracture. she likely has atelectasis from her bilateral right greater than left pleural effusions. No evidence for pneumonia. No evidence for COPD exacerbation. 04/03/2024: When I enter the room the patient was on 6 L nasal cannula saturations 98%. I sequentially decreased her to 1 L and after 11 minutes her saturation on 1 L was 91%. afebrile. White blood cell count 7.1, creatinine 0.71. weight is 96.9 kg with an admission weight of 90.9 kg. output has not been measured. Plan: Goal saturation 90-95%. I have been able to titrate the patient back to her 1 L nasal cannula. Tonight I will perform an overnight oximetry on 1 L nasal cannula. Agree with as aggressive diuresis as tolerated by her cardiac and renal systems. Of note she has AFib in while I was in the room her rate ranged from 105-130. Discussed with Dr. Amador, will follow with you. (2) COPD (chronic obstructive pulmonary disease): Qualifiers: COPD type: unspecified COPD Qualified Code(s): J44.9 - Chronic obstructive pulmonary disease, unspecified Code(s): J44.9 - Chronic obstructive pulmonary disease, unspecified Status: Acute Assessment and Plan: Patient with a history of COPD on 1 L nasal cannula with rest, activity and sleep. ABG on 6 L nasal cannula on 04/01/2024 7.42/48/62. Patient has some hypercarbia but not to the extent that she would qualify for noninvasive ventilation at night. eosinophils on admission 373 per micro L Currently there is no evidence of a COPD exacerbation. Plan: I will discontinue her nebulizers. I will place the patient on long- acting beta agonist, long-acting muscarinic antagonist and inhaled corticosteroids and will prescribe trelegy 100. (3) MARC (obstructive sleep apnea): Code(s): G47.33 - Obstructive sleep apnea (adult) (pediatric) Status: Acute Assessment and Plan: Her granddgt brought up patient's history of sleep apnea of which I was unaware of. Looking in previous EMR, she had sleep testing done back in 2009, noted below. This showed mild sleep apnea. She used CPAP for a couple years but had issues with mask fitting so then she stopped using it PSG 09/27/09 - mild MARC AHI 7.2 CPAP titration 10/10/09 - inadequate titration, recommend repeat titration CPAP Titration 10/21/09 - recommend CPAP [id number]. 11/01/24: I will order an overnight oximetry on 1 L nasal cannula. I will try to correct her overnight hypoxemia while waiting for her outpatient sleep study. History of Present Illness History of Present Illness Consult date: 04/03/24 Chief complaint: Rib fx w/ pneumothorax Narrative: 04/03/2024: This is a new pulmonary consult for acute on chronic respiratory failure. 88-year-old with a history of atrial fibrillation, hypothyroidism, hypertension, hyperlipidemia, COPD on home oxygen. Patient is followed in the pulmonary clinic in last seen on 01/29/2024. This is a copy of that note. Kanchan was seen 9 days ago for follow-up regarding COPD on oxygen. Hx: She takes Dupixent for eczema. Dx COPD 5 years ago. MARC. At last visit, she was having symptomatic afib with RVR, new diagnosis. Was sent to the ER where she stayed for 5 days. She was given steroids and nebs for COPD, Lasix for CHF (BNP 5K), and started cardiac meds for her afib. She underwent a CV which was successful. She will see leasing director in follow-up on Feb 19. Today, she reports she is doing better since discharge. Her edema is improving. Dyspnea is better. She has been more compliant with her oxygen and Wixela inhaler. She has been checking her HR and reports it has been bouncing around from 90s- 140s. She may be back in afib. She reports return of right side pains on her breast. Her granddgt brought up patient's history of sleep apnea of which I was unaware of. Looking in previous EMR, she had sleep testing done back in 2009, noted below. This showed mild sleep apnea. She used CPAP for a couple years but had issues with mask fitting so then she stopped using it. Kanchan has been more anxious and depression. She is interested in medication. Plan: Continue Wixela 100 b.i.d. requires 1 L at rest and with activity and sleep. Split night sleep study was ordered. 03/26/2024: Patient presented to the emergency room after ground level far. She lost her balance and had a chair. Pain in the right back and developed shortness of breath. Supposed to be on anticoagulation for AFib but ran out of [employer] 4 days ago. Blood pressure 131/78, heart rate 108, respirations 24, saturations 100 on 15 L non-rebreather. White blood cell count 14.9, creatinine 0.88. Eosinophils 2.5%. Chest x-ray revealed a right pneumothorax and Needle decompression was performed with significant dickerson of air. A 16 Malay chest tube was placed without complications. CT scan showed a posterior right rib fracture. required 15 L nasal cannula 03/29/2024: Chest tube was removed. 7 L nasal cannula saturation 94%. BNP 3850. 03/30/2024: She denied shortness of breath or chest pain. On 6 L nasal cannula saturations 92% 03/31/2024: Feeling better, on 6 L nasal cannula, legs are more swollen. 6 L nasal cannula saturation 94% 04/01/2024: Dyspnea with minimal exertion. 6 L nasal cannula saturations 91%. ABG on 6 L nasal cannula 7.42/48/62 04/02/2024: Dyspnea is improving. 6 L nasal cannula with satuations 96%. BNP 4390 Chest x-ray with small bilateral pleural effusions with bibasilar atelectasis or pneumonia. Cardiomegaly. 04/03/2024: The patient tells me she is now breathing back at her baseline. She does have more cough than usual but this is dry with no hemoptysis. She has no rest shortness of breath but some dyspnea on exertion. Currently the patient has no pain but a little bit of pain with a deep breath. When I enter the room the patient was on 6 L nasal cannula saturations 98%. I sequentially decreased her to 1 L and after 11 minutes her saturation on 1 L was 91%. afebrile. White blood cell count 7.1, creatinine 0.71. weight is 96.9 kg with an admission weight of 90.9 kg. output has not been measured. DATA: 01/23/24: EVY Summary 1. Left ventricle is normal size and systolic function. 2. Right ventricle is normal size and systolic function. 3. The left atrium is dilated. 4. The right atrium is dilated. 5. The left atrial appendage velocity is 53 cm/s. There is no thrombus. 6. The atrial septum is visually intact with no color Doppler evidence of shunt. Echo 01/21/24 - Summary 1. Left ventricular chamber dimension is normal. 2. Left ventricular systolic function is normal, estimated at 60-65%. 3. There is mildly increased left ventricular wall thickness. 4. The left ventricular diastolic function is indeterminate. 5. Right ventricular chamber dimension is mildly enlarged. 6. Left atrial chamber dimension is severely enlarged. 7. Right atrial chamber dimension is severely enlarged. 8. There is mild mitral valve regurgitation. 9. There is mild to moderate tricuspid valve regurgitation. 10. Mild pulmonary hypertension, estimated pulmonary arterial systolic pressure is 42 mmHg. 11. There is mild pulmonic regurgitation. 12. The aortic root size at the sinus of Valsalva is mildly dilated. 13. Dilated inferior vena cava with <50% collapse upon inspiration consistent with elevated right atrial pressure, 15 mmHg. Right Ventricle Right ventricular chamber dimension is mildly enlarged. Right ventricular systolic function is normal. Left Atria Left atrial chamber dimension is severely enlarged. Right Atria Right atrial chamber dimension is severely enlarged. Atrial Septum Suspected patent foramen ovale visualized by color flow imaging. EF 60-65%, mild pulmHTN RVSP 42mmHg. Home O2 Eval 11/25/23 - requires 1L rest and with activity. Chest CT 09/25/23 - The lungs are clear. No pulmonary nodules or infiltrates are noted. Mild emphysema. Home O2 Eval 08/23/21 - requires 1L O2 with activity. PFT 10/06/18 mild obstructive ventilatory impairment, severe small airways pattern. Mild hyperinflation, severe air trapping, severe increase in airway resistance, moderate diffusion impairment. No bronchodilator given. 6mw mild desaturation to 90%. PSG 09/27/09 - mild MARC AHI 7.2 CPAP titration 10/10/09 - inadequate titration, recommend repeat titration CPAP Titration 10/21/09 - recommend CPAP [id number]. Review of Systems 2 Constitutional: Constitutional: Reports no additional constitutional complaints Eyes: Eyes: Reports no additional eye complaints ENT: Reports system reviewed and no additional complaints, except as documented Cardiovascular: Cardiovascular: Reports no additional cardiovascular complaints Respiratory: Respiratory: Reports no additional respiratory complaints Gastrointestinal: Gastrointestinal: Reports no additional gastrointestinal complaints Musculoskeletal: Musculoskeletal: Reports no additional musculoskeletal complaints Neurologic: Reports system reviewed and no additional complaints, except as documented Psychiatric: Psychiatric: Reports no additional psychiatric complaints Endocrine: Endocrine: Reports no additional endocrine complaints Hematologic/Lymphatic: Hematologic/Lymphatic: Reports no additional hematologic/lymphatic complaints Allergic/Immunologic: Allergic/Immunologic: Reports no additional allergic/immunologic complaints PMFSH Past Medical History Medical History Lump of right breast 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 Osteopenia Degenerative arthritis of knee, bilateral Basal cell carcinoma Vertigo Hearing loss Atrial tachycardia from anesthesia Blood in stool Bowel habit changes Hypothyroidism Varicose vein of leg COPD (chronic obstructive pulmonary disease) GERD (gastroesophageal reflux disease) Frequent headaches Afib Hyperlipidemia Hypertension Surgical History Surgical History History of colectomy H/O arthroscopy of knee both knees, meniscectomy History of foot surgery History of tonsillectomy Family History Family History Mother Family history of malignant neoplasm of breast in first degree relative Father Family history of throat cancer Family history of malignant neoplasm Other Family history of arthritis Social History Social History Social History: Patient stated she socially smokes. Smoking packs per day: 1 Smoking cigarettes per day: 20.0 Years smoked: 30 Smoking pack-years: 30.00 Smoking status: Former smoker Second hand tobacco smoke exposure: Yes Alcohol intake: never Substance use: never Substance use type: does not use Do You Feel Safe in your Home?: Yes Lack of Transportation: No Lack of Food: Never True Current Housing: I Have Housing Concerned About Future Housing: No Difficulty Paying Gas/Electric Bills: YES Difficulty Paying for Meds: No Currently Unemployed: No Education: High School Diploma/GED Difficulty w/ Childcare or Family Care: No Living arrangements: alone Occupation/Education: retired Gender identity (if verbalized by the patient): Female Spiritual care concerns: No Meds Home Medications and Allergies Home Medications ?Medication ?Instructions ?Recorded ?Confirmed ?Type dupilumab 300 mg/2 mL subcutaneous 300 mg subcut .biweekly 03/02/19 03/27/24 History syringe (Dupixent) ascorbic acid (vitamin C) 1,000 mg 1 g PO DAILY 02/28/22 03/27/24 History capsule calcium carbonate (Calcium 600) 600 mg PO DAILY 05/07/22 03/27/24 History fluticasone 100 mcg-salmeterol 50 1 inh inhalation Q12H #60 ea 01/20/24 03/27/24 Rx mcg/dose blistr powdr for inhalation (Wixela Inhub) atorvastatin 40 mg tablet 40 mg PO DAILY #30 tabs 01/25/24 03/27/24 Rx furosemide 40 mg tablet 40 mg PO DAILY #30 tabs 01/25/24 03/27/24 Rx metoprolol succinate 50 mg 50 mg PO QAM #30 tabs 01/25/24 03/27/24 Rx tablet,extended release 24 hr buspirone 5 mg tablet 5 mg PO BID #60 tabs 01/29/24 03/27/24 Rx amlodipine 5 mg tablet See Rx Instructions .Route 02/17/24 03/27/24 Rx .COMPLEX #90 tabs levothyroxine 75 mcg tablet See Rx Instructions .Route 02/19/24 03/27/24 Rx .COMPLEX #90 tabs amiodarone 200 mg tablet 200 mg PO Q24H 03/27/24 03/27/24 History potassium chloride 20 mEq 20 meq PO BID 03/27/24 03/27/24 History tablet,extended release warfarin 2 mg tablet 4 mg PO .evening 03/27/24 03/27/24 History Allergies Allergy/AdvReac Type Severity Reaction Status Date / Time No Known Allergies Allergy Verified 01/29/24 16:06 Vital Signs Vital Signs - 24 hr 04/02/24 20:00 04/02/24 20:37 04/02/24 20:44 Temperature Pulse Rate 95 115 H Respiratory Rate 20 20 Blood Pressure Pulse Oximetry 93 Oxygen Delivery High Flow Nasal Cannula Oxygen Flow Rate 6 04/02/24 21:00 04/02/24 23:00 04/03/24 01:51 Temperature 36.1 C L Pulse Rate 98 98 Respiratory Rate 20 20 Blood Pressure 119/69 Pulse Oximetry 95 95 Oxygen Delivery High Flow Nasal Cannula Oxygen Flow Rate 6 04/03/24 01:58 04/03/24 05:50 04/03/24 08:10 Temperature 36.3 C L Pulse Rate 93 112 H 92 Respiratory Rate 20 20 Blood Pressure 122/84 Pulse Oximetry 94 Oxygen Delivery Oxygen Flow Rate 04/03/24 09:54 04/03/24 09:54 04/03/24 10:03 Temperature Pulse Rate 98 96 Respiratory Rate 20 20 Blood Pressure Pulse Oximetry 93 Oxygen Delivery High Flow Nasal Cannula Oxygen Flow Rate 6 04/03/24 14:15 04/03/24 14:24 Temperature Pulse Rate 100 105 H Respiratory Rate 20 20 Blood Pressure Pulse Oximetry Oxygen Delivery Oxygen Flow Rate Exam 2 Const: General: cooperative, healthy appearing and comfortable O rientation/consciousness: oriented to person, oriented to place and oriented to time HENMT: Head: normal to inspection Ears: hearing grossly normal bilaterally Eyes: General: appearance normal, both eyes and all related structures Neck: Neck: normal visual inspection Chest: Chest palpation & inspection: normal inspection of the chest Resp: Effort & Inspection: normal respiratory effort and able to speak in complete sentences Auscultation: crackles, no rales, no rhonchi, no wheezes and diminished lung sounds Other: Decreased breath sounds at the bases with some crackles. No wheezes. Cardio: Jugular venous distension: no JVD GI: Inspection: normal to inspection GI Palp: No abdominal tenderness Skin: General skin exam: normal color Neuro: General: oriented to person, oriented to place and oriented to time Extrem: General: normal to inspection and edema Psych: Appearance: grossly normal Results Laboratory Findings 04/03/24 14:02 04/03/24 14:02 ABG, PT/INR, D-dimer: ABG ABG pH 7.415 (7.350-7.450) 04/01/24 11:13 ABG pCO2 48.3 mmHg (35.0-45.0) H 04/01/24 11:13 ABG pO2 61.8 mmHg (80.0-100.0) L 04/01/24 11:13 ABG O2 Saturation 91.8 % (95.0-100.0) L 04/01/24 11:13 PT/INR, D-dimer PT 24.7 Seconds (11.1-14.7) H 04/03/24 06:05 INR 2.2 04/03/24 06:05 D-Dimer 2.45 ug/mL (<0.48) H 03/29/24 04:24 Abnormal lab findings: Abnormal Labs 03/26/24 03/27/24 03/27/24 21:28 00:56 07:56 WBC 14.9 H 10.5 H RBC 4.17 L Hgb Hct MCHC 31.2 L RDW Plt Count MPV 12.4 H 11.8 H Immature Gran % (Auto) 0.6 H Neut % (Auto) 78.3 H 83.8 H Lymph % (Auto) 9.9 L 5.9 L Mineral % (Auto) 9.2 H Eos % (Auto) Lymph # (Auto) 0.62 L Mineral # (Auto) 1.2 H 1.0 H Eos # (Auto) 0.4 H Abs Immat Gran (auto) 0.09 H 0.04 H Absolute Neuts (auto) 11.7 H 8.8 H Neutrophils % (Manual) Lymphocytes % (Manual) Monocytes % (Manual) Abs Neuts (Manual) Abs Lymphs (Manual) Abs Monocytes (Manual) PT D-Dimer ABG pCO2 ABG pO2 ABG HCO3 ABG O2 Saturation ABG O2 Content Sodium Potassium Chloride Carbon Dioxide 31 H Anion Gap 13 H BUN 27 H 28 H Creatinine Estimated GFR Glucose 122 H Calcium Alkaline Phosphatase 154 H NT-Pro-B Natriuret Pep Total Protein Albumin Urine Ketones Trace H 03/28/24 03/29/24 03/30/24 06:12 04:24 07:05 WBC 16.2 H 10.8 H RBC 3.97 L Hgb 11.8 L Hct MCHC 31.6 L 31.6 L RDW 14.6 H Plt Count 134 L MPV 11.3 H 12.1 H Immature Gran % (Auto) Neut % (Auto) 84.0 H Lymph % (Auto) 3.2 L Mineral % (Auto) 11.3 H Eos % (Auto) Lymph # (Auto) 0.35 L Mineral # (Auto) 1.2 H Eos # (Auto) Abs Immat Gran (auto) Absolute Neuts (auto) 9.1 H Neutrophils % (Manual) 84 H Lymphocytes % (Manual) 3.0 L Monocytes % (Manual) 11 H Abs Neuts (Manual) 13.93 H Abs Lymphs (Manual) 0.48 L Abs Monocytes (Manual) 1.78 H PT 16.0 H 18.8 H 32.0 H D D-Dimer 2.45 H ABG pCO2 ABG pO2 ABG HCO3 ABG O2 Saturation ABG O2 Content Sodium 134 L 131 L Potassium Chloride 96 L 95 L Carbon Dioxide Anion Gap BUN 24 H 34 H D Creatinine Estimated GFR 55 L Glucose Calcium Alkaline Phosphatase NT-Pro-B Natriuret Pep 3850 H Total Protein 6.0 L Albumin 3.3 L Urine Ketones 03/31/24 04/01/24 04/01/24 07:57 07:08 11:13 WBC RBC 3.96 L 3.85 L Hgb 11.8 L 11.3 L Hct 35.3 L MCHC 31.6 L RDW 14.7 H Plt Count MPV 11.7 H 11.7 H Immature Gran % (Auto) Neut % (Auto) Lymph % (Auto) 9.8 L 9.0 L Mineral % (Auto) 21.4 H 19.8 H Eos % (Auto) 6.7 H Lymph # (Auto) 0.47 L 0.44 L Mineral # (Auto) 1.0 H 1.0 H Eos # (Auto) Abs Immat Gran (auto) Absolute Neuts (auto) Neutrophils % (Manual) Lymphocytes % (Manual) Monocytes % (Manual) Abs Neuts (Manual) Abs Lymphs (Manual) Abs Monocytes (Manual) PT 32.5 H 28.7 H D-Dimer ABG pCO2 48.3 H ABG pO2 61.8 L ABG HCO3 30.3 H ABG O2 Saturation 91.8 L ABG O2 Content 15.7 L Sodium 132 L 132 L Potassium 5.9 H Chloride 93 L 92 L Carbon Dioxide 33 H 32 H Anion Gap BUN 37 H 31 H Creatinine Estimated GFR 54 L Glucose Calcium Alkaline Phosphatase NT-Pro-B Natriuret Pep Total Protein 6.0 L Albumin 3.2 L Urine Ketones 04/02/24 04/02/24 04/03/24 05:39 15:09 06:04 WBC RBC 3.83 L 3.96 L Hgb 11.3 L 11.8 L Hct 35.1 L 36.9 L MCHC RDW Plt Count MPV 10.9 H 12.1 H Immature Gran % (Auto) Neut % (Auto) Lymph % (Auto) 7.4 L Mineral % (Auto) 16.3 H Eos % (Auto) Lymph # (Auto) 0.39 L Mineral # (Auto) 0.9 H Eos # (Auto) Abs Immat Gran (auto) Absolute Neuts (auto) Neutrophils % (Manual) Lymphocytes % (Manual) Monocytes % (Manual) Abs Neuts (Manual) Abs Lymphs (Manual) Abs Monocytes (Manual) PT 26.9 H D-Dimer ABG pCO2 ABG pO2 ABG HCO3 ABG O2 Saturation ABG O2 Content Sodium 129 L 131 L Potassium 3.3 L Chloride 91 L 91 L Carbon Dioxide 31 H 32 H Anion Gap BUN 27 H 24 H Creatinine 0.63 L Estimated GFR Glucose Calcium 8.2 L 8.1 L Alkaline Phosphatase NT-Pro-B Natriuret Pep 4390 H Total Protein Albumin Urine Ketones 04/03/24 04/03/24 06:05 14:02 WBC RBC 4.06 L Hgb Hct 36.8 L MCHC RDW Plt Count MPV 11.1 H Immature Gran % (Auto) 1.3 H Neut % (Auto) 73.6 H Lymph % (Auto) 6.2 L Mineral % (Auto) 13.7 H Eos % (Auto) 4.6 H Lymph # (Auto) 0.44 L Mineral # (Auto) 1.0 H Eos # (Auto) Abs Immat Gran (auto) 0.09 H Absolute Neuts (auto) Neutrophils % (Manual) Lymphocytes % (Manual) Monocytes % (Manual) Abs Neuts (Manual) Abs Lymphs (Manual) Abs Monocytes (Manual) PT 24.7 H D-Dimer ABG pCO2 ABG pO2 ABG HCO3 ABG O2 Saturation ABG O2 Content Sodium 130 L Potassium Chloride 89 L Carbon Dioxide 34 H Anion Gap BUN 24 H Creatinine Estimated GFR Glucose 119 H Calcium Alkaline Phosphatase NT-Pro-B Natriuret Pep Total Protein Albumin Urine Ketones Diagnostic Findings Additional studies: ITS Impressions Chest X-Ray 03/26/24 21:11 IMPRESSION: 15-20% right-sided pneumothorax, as detailed above. These findings were discussed with Dr. Lehman at 9:00 PM 03/26/2024 Chest X-Ray 03/26/24 21:47 IMPRESSION: As above. Chest CT 03/26/24 21:50 IMPRESSION: Redemonstration of a right-sided pneumothorax, approximately 15-20% in size with a right posterior medial fifth rib fracture. Chest X-Ray 03/26/24 22:48 IMPRESSION: Right-sided chest tube in excellent position, with full expansion of the right lung Head CT 03/26/24 23:09 Impression: No acute intracranial hemorrhage or suspicious mass effect. Cervical Spine CT 03/26/24 23:13 Impression: Straightening and slight reversal of the normal curvature of the cervical spine, likely muscular in origin. Significant degenerative disease, without acute fracture. Chest X-Ray 03/27/24 07:02 Impression: Right-sided chest tube without visible pneumothorax. Possible minimal interstitial edema. Chest X-Ray 03/28/24 07:00 IMPRESSION: 1. No pneumothorax. Right-sided chest tube in expected position. 2. Mild atelectasis in right mid and lower lung zones and left lower lung zone. 3. Cardiomegaly. Chest X-Ray 03/28/24 10:01 IMPRESSION: 1. No pneumothorax. Right-sided chest tube in expected position. 2. Small right pleural effusion. 3. Stable airspace opacities in right mid and lower lung zones and left lower lung zone, likely atelectasis. 4. Cardiomegaly. Chest X-Ray 03/28/24 17:56 IMPRESSION: No recurrent pneumothorax. Mild interstitial edema. Small right pleural fluid collection. Chest CTA 03/29/24 08:00 IMPRESSION: 1. Right chest tube in expected position with small right pleural effusion but no pneumothorax. 2. Mild emphysema with mild dependent atelectasis in both lungs. 3. Cardiomegaly with biatrial enlargement. 4. Enlargement of the central pulmonary arteries consistent with pulmonary arterial hypertension. 5. Recent-appearing nondisplaced fractures of the posterior right fifth and sixth ribs. Chest X-Ray 03/29/24 08:47 IMPRESSION: 1. Small right pleural effusion but no pneumothorax with unchanged right apically directed chest tube. 2. Bibasilar opacities with appearance on CT favoring atelectasis over pneumonia. 3. Cardiomegaly and enlargement of the central pulmonary arteries consistent with pulmonary arterial hypertension. Chest X-Ray 03/29/24 09:04 IMPRESSION: 1. Small right pleural effusion but no pneumothorax with unchanged apically directed right chest tube. 2. Mild opacities in bilateral lower lung zones which could represent atelectasis or pneumonia. 3. Cardiomegaly. Chest X-Ray 03/29/24 18:22 IMPRESSION: Focal expansion of the right lung on plain film evaluation, as detailed above. Redemonstration of a small right-sided pleural effusion. Chest X-Ray 03/30/24 12:18 IMPRESSION: 1. Unchanged small right pleural effusion with mild bibasilar atelectasis. 2. Cardiomegaly. Chest X-Ray 03/31/24 06:40 Impression: COPD. Minimal right pleural effusion. Chest X-Ray 04/02/24 13:10 IMPRESSION: 1. Small bilateral pleural effusions with associated bibasilar atelectasis and/or pneumonia. 2. Cardiomegaly.
[2024-04-04] VITALS (8 sets, daily range): BP systolic 108–127; BP diastolic 62–86; PULSE 100–115; RESP 18–20; TEMP 36.4–36.7; O2SAT 90–92
[2024-04-04] MEDS: LEVOTHYROXINE SODIUM 75 MCG TABLET BY MOUTH (05:35)
[2024-04-04] MEDS: HYDROcodone/acetaminophen (*CRX) 5-325 MG TABLET 1 TAB PO ×2 (05:41→17:12)
[2024-04-04 07:54] LABS: INR 2.1; Prothrombin Time 24.2 Seconds (11.1-14.7)
[2024-04-04 07:57] LABS: Anion Gap 7 mmol/L (4-12); Blood Urea Nitrogen 18 mg/dL (7-17); Calcium 8.2 mg/dL (8.4-10.2); Carbon Dioxide 32 mmol/L (22-30); Chloride 92 mmol/L (98-107); Estimated CRCL calculation 67 ml/min; Estimated Glomerular Filt Rate > 60; Glucose 93 mg/dL (65-110); Magnesium 1.8 mg/dL (1.6-2.3); Potassium 3.2 mmol/L (3.4-5.0); Sodium 131 mmol/L (137-145)
[2024-04-04] MEDS: FLUTICASONE/UMECLIDIN/VILANTER 100-62.5-25 MCG ELLIPTA 1 PUFF INHALATION (08:30)
--- NOTE | 2024-04-04 08:49 | P.PNIM_ITS ---
Progress Note: A&P Assessment and Plan (1) Pneumothorax: Code(s): J93.9 - Pneumothorax, unspecified Status: Acute (2) MARC (obstructive sleep apnea): Code(s): G47.33 - Obstructive sleep apnea (adult) (pediatric) Status: Acute (3) Chronic respiratory failure: Qualifiers: Respiratory failure complication: hypoxia Qualified Code(s): J96.11 - Chronic respiratory failure with hypoxia Code(s): J96.10 - Chronic respiratory failure, unspecified whether with hypoxia or hypercapnia Status: Acute (4) COPD (chronic obstructive pulmonary disease): Qualifiers: COPD type: unspecified COPD Qualified Code(s): J44.9 - Chronic obstructive pulmonary disease, unspecified Code(s): J44.9 - Chronic obstructive pulmonary disease, unspecified Status: Acute (5) Closed rib fracture: Code(s): S22.39XA - Fracture of one rib, unspecified side, initial encounter for closed fracture Status: Acute (6) GERD (gastroesophageal reflux disease): Qualifiers: Esophagitis presence: without esophagitis Qualified Code(s): K21.9 - Gastro-esophageal reflux disease without esophagitis Code(s): K21.9 - Gastro-esophageal reflux disease without esophagitis Status: Acute (7) Hypothyroidism: Qualifiers: Hypothyroidism type: acquired Qualified Code(s): E03.9 - Hypothyroidism, unspecified Code(s): E03.9 - Hypothyroidism, unspecified Status: Acute (8) Hyperlipidemia: Qualifiers: Hyperlipidemia type: elevated lipoprotein(a) Qualified Code(s): E78.41 - Elevated Lipoprotein(a) Code(s): E78.5 - Hyperlipidemia, unspecified Status: Acute (9) Afib: Qualifiers: Atrial fibrillation type: unspecified Qualified Code(s): I48.91 - U nspecified atrial fibrillation Code(s): I48.91 - Unspecified atrial fibrillation Status: Acute (10) CHF (congestive heart failure): Qualifiers: Heart failure chronicity: unspecified Heart failure type: unspecified Qualified Code(s): I50.9 - Heart failure, unspecified Code(s): I50.9 - Heart failure, unspecified Status: Acute (11) Hypertension: Qualifiers: Hypertension type: primary hypertension Qualified Code(s): I10 - Essential (primary) hypertension Code(s): I10 - Essential (primary) hypertension Status: Acute Plan This is an 88-year-old female presented to the ER after ground level fall. She was getting something out of a cabinet when she lost her balance and fell backwards hitting a chair. She had pain in her right back. She then developed shortness of breath. She came to the ER to be evaluated. She denies head trauma loss of consciousness. She has been ambulatory since the incident. Patient is supposed to be on anticoagulation for atrial fibrillation but ran out of her Eliquis 4 days ago. She has been prescribed Coumadin by her electric meter inspector but has not started taking Acute pneumothorax Likely resulting in a fall a needle decompression was performed for suspected tension pneumothorax the 2nd intercostal space on the right significant dickerson air. CT chest performed which showed right-sided pneumothorax with subcutaneous air along the right anterolateral chest wall and posterior medial chest wall. Chest tube was placed, consulted general surgeon for management Chest tube has now been removed 03/29/2024.has right chest wall pain at the back COPD acute on chronic chronic hypoxic respiratory failure on home oxygen with acute exacerbation 03/29/2024. IV Lasix received overnight. CTA Negative for PE or pneumonia. Patient is on nasal cannular 6 L Start DuoNeb scheduled albuterol nebulizer p.r.n., ABG: Hypercapnic and hypoxemic respiratory failure Diastolic heart failure with exacerbation. Echocardiogram showed EF of 60-65%, mild pulmonary hypertension, diastolic dysfunction is indeterminate Received IV Lasix On Lasix 40 mg daily p.o. Patient is fluid overloaded Change to Lasix 20 mg b.i.d. IV push and give Lasix 40 mg ivp once 04/01 X-ray showed cardiomegaly, increased interstitial change, increase to 40mg bid 04/02 Follow-up input output BNP: 4390 on 04/02 Acute on chronic respiratory failure Patient need 1-2 L oxygen and home Now patient has worsening dyspnea Likely resulting from COPD, chest restriction and fluid overload ABG showed hypercapnic and hypoxemic respiratory failure Start bronchodilators, and start IV Lasix 04/01 X-ray showed cardiomegaly atelectasis Continue O2 therapy Provide incentive spirometry Patient still needs 6 L oxygen per nasal cannular 04/03 Consult chief school finance officer for evaluation treatment Hypoxemia improving Atrial fibrillation on amiodarone and metoprolol And warfarin 3 mg daily INR in therapeutic range Hyponatremia Likely secondary to poor oral intake and IV Lasix Provide sodium chloride 1 g b.i.d. p.o. Hypothyroidism On Synthroid 75 mcg daily p.o. Hypertension Amlodipine 5 mg daily p.o. Blood pressure is controlled Hyperlipidemia On Lipitor 40 mg daily p.o. GERD Varicose vein Osteoarthritis Anticoagulation with Eliquis DVT prophylaxis currently on warfarin INR Code status full code Subjective Date/time seen: 04/04/24 08:49 Interval history: I saw examined the patient today. Patient feels dyspnea is improving, exercise tolerance increase. Patient needs O2 therapy via nasal cannular, tip down to lower flow rate. Right back chest pain improved Exam Narrative: GENERAL: Pleasant, in no acute distress. Well-nourished. - EYES: EOMI. Anicteric. - HENT: Moist mucous membranes. - LUNGS: Crackles bilateral base, reduc ing. No wheezing, rhonchi, at right chest pain - CARDIOVASCULAR: Regular rate and rhyth m. No murmur. No JVD. - ABDOMEN: Soft, non-tender and non-dist ended. No palpable masses. - EXTREMITIES: No edema. Peripheral puls es 2+. Non-tender. - NEUROLOGIC: No focal neurological defi cits. CN II-XII grossly intact. - PSYCHIATRIC: Awake, Alert and oriented x 3. Appropriate mood and affect. - SKIN: No rashes or lesions. Warm. - LYMPH: No cervical lymphadenopathy. Objective Data Vital Signs Vital Signs: Vital Signs - 24 hr 04/03/24 09:54 04/03/24 09:54 04/03/24 10:03 Temperature Pulse Rate 98 96 Respiratory Rate 20 20 Blood Pressure Pulse Oximetry 93 Oxygen Delivery High Flow Nasal Cannula Oxygen Flow Rate 6 Fraction of Inspired Oxygen 04/03/24 14:00 04/03/24 14:15 04/03/24 14:24 Temperature 98.1 F Pulse Rate 114 H 100 105 H Respiratory Rate 20 20 20 Blood Pressure 108/68 Pulse Oximetry 94 Oxygen Delivery Oxygen Flow Rate Fraction of Inspired Oxygen 04/03/24 20:00 04/03/24 21:54 04/04/24 05:30 Temperature 97.7 F 97.6 F Pulse Rate 107 H 107 H Respiratory Rate 18 18 Blood Pressure 126/62 108/72 Pulse Oximetry 91 91 90 Oxygen Delivery High Flow Nasal Cannula Oxygen Flow Rate 1 Fraction of Inspired Oxygen 04/04/24 08:30 04/04/24 08:30 Temperature Pulse Rate 100 Respiratory Rate 20 Blood Pressure Pulse Oximetry 90 Oxygen Delivery Nasal Cannula Oxygen Flow Rate 2 Fraction of Inspired Oxygen 28 Intake/Output Intake/Output: Intake & Output 04/01/24 04/02/24 04/03/24 04/04/24 23:59 23:59 23:59 23:59 Intake Total 792 1782 1150 300 Output Total 0 Balance 792 1782 1150 300 Meds/Results Medications: Active Medications Generic Name Dose Route Start Last Admin Trade Name Freq PRN Reason Stop Dose Admin Acetaminophen 1,000 mg 03/28/24 09:37 03/29/24 20:46 Acetaminophen 500 Mg Tablet PO 1,000 mg Q6H PRN Administration Mild Pain (1-3) or Fever Hydrocodone Bitart/Acetaminophen 1 tab 03/28/24 09:33 04/04/24 05:41 Hydrocodone/Acetaminophen (*Crx) 5-325 Mg Tablet PO 1 tab Q4H PRN Administration Pain Rated 4-6 Albuterol 2.5 mg 04/01/24 10:57 Albuterol Sulfate Neb 2.5 Mg/3 Ml Inh INHALATION Q4HRT PRN Shortness Of Breath Alprazolam 0.5 mg 04/03/24 15:14 Alprazolam (*Crx) 0.5 Mg Tablet PO TID PRN Anxiety Amiodarone HCl 200 mg 03/27/24 09:00 04/03/24 08:10 Amiodarone Hcl 200 Mg Tablet PO 200 mg DAILY MIGUEL Administration Amlodipine Besylate 5 mg 03/27/24 09:00 04/03/24 08:11 Amlodipine Besylate 5 Mg Tablet BY MOUTH 5 mg DAILY MIGUEL Administration Ascorbic Acid 1,000 mg 03/27/24 09:00 04/03/24 08:12 Ascorbic Acid 500 Mg Tablet PO 1,000 mg QAM MIGUEL Administration Atorvastatin Calcium 40 mg 03/27/24 09:00 04/03/24 08:12 Atorvastatin 40 Mg Tablet PO 40 mg DAILY MIGUEL Administration Buspirone HCl 5 mg 03/27/24 09:00 04/03/24 17:00 Buspirone Hcl 5 Mg Tablet PO 5 mg BID MIGUEL Administration Calcium Carbonate 500 mg 03/27/24 09:00 04/03/24 08:12 Calcium Carbonate (Oscal) 500 Mg Tablet PO 500 mg QAM MIGUEL Administration Fluticasone/Umeclidinium/Vilanterol 1 puff 04/04/24 08:00 04/04/24 08:30 Fluticasone/Umeclidin/Vilanter 100-62.5-25 Mcg Ellipta INHALATION 1 puff DAILYRT MIGUEL Administration Furosemide 20 mg 04/02/24 09:00 04/03/24 17:00 Furosemide Inj 40 Mg/4 Ml Vial IV PUSH 20 mg BID MIGUEL Administration Hydromorphone HCl 0.5 mg 03/28/24 09:33 03/31/24 06:33 Hydromorphone Hcl Inj (*Crx) 1 Mg/Ml Syr IV PUSH 0.5 mg Q3H PRN Administration Pain Rated 7-10 Levothyroxine Sodium 75 mcg 03/28/24 06:30 04/04/24 05:35 Levothyroxine Sodium 75 Mcg Tablet BY MOUTH 75 mcg DAILY@0630 MIGUEL Administration Lidocaine 1 patch 03/30/24 09:00 04/03/24 08:11 Lidocaine 5% Patch TRANSDERM 1 patch DAILY MIGUEL Administration Metoprolol Succinate 50 mg 03/27/24 09:00 04/03/24 08:12 Metoprolol Succinate Ext Rel 50 Mg Tabcr PO 50 mg QAM MIGUEL Administration * Home Med * 300 mg 04/14/24 09:00 Dupilumab [Dupixent SUB-Q 05/14/24 08:59 Syringe] 300 Mg/2 Ml [id number] MIGUEL Syringe Oxycodone HCl 5 mg 03/28/24 09:33 04/02/24 11:00 Oxycodone Hcl (*Crx) 5 Mg Tab Ir PO 5 mg Q4H PRN Administration Pain Rated 7-10 Perflutren Lipid Microsphere 0 ml 04/03/24 15:20 Perflutren Lipid Microspheres 1.5 Ml Vial Diluted To 10 Ml Total Volume IV PUSH 04/06/24 15:20 ONCE PRN adequate visualization Protocol Potassium Chloride 20 meq 03/27/24 09:00 03/30/24 18:02 Potassium Chloride 20 Meq Er Tablet PO 20 meq BID MIGUEL Administration Senna/Docusate Sodium 2 tab 03/28/24 22:25 04/03/24 17:00 Senna/Docusate Sodium Tablet PO 2 tab BID MIGUEL Administration Sodium Chloride 1 gm 04/02/24 17:00 04/03/24 17:00 Sodium Chloride 1 Gm Tablet PO 1 gm BID MIGUEL Administration Warfarin Sodium 3 mg 03/31/24 13:46 Warfarin (*Pbkc) 3 Mg Tablet PO EVENING [facility] Radiology Results: ITS Impressions Chest CT 03/26/24 21:50 IMPRESSION: Redemonstration of a right-sided pneumothorax, approximately 15-20% in size with a right posterior medial fifth rib fracture. Head CT 03/26/24 23:09 Impression: No acute intracranial hemorrhage or suspicious mass effect. Cervical Spine CT 03/26/24 23:13 Impression: Straightening and slight reversal of the normal curvature of the cervical spine, likely muscular in origin. Significant degenerative disease, without acute fracture. Chest CTA 03/29/24 08:00 IMPRESSION: 1. Right chest tube in expected position with small right pleural effusion but no pneumothorax. 2. Mild emphysema with mild dependent atelectasis in both lungs. 3. Cardiomegaly with biatrial enlargement. 4. Enlargement of the central pulmonary arteries consistent with pulmonary arterial hypertension. 5. Recent-appearing nondisplaced fractures of the posterior right fifth and sixth ribs. Chest X-Ray 04/02/24 13:10 IMPRESSION: 1. Small bilateral pleural effusions with associated bibasilar atelectasis and/or pneumonia. 2. Cardiomegaly. Labs Labs: Laboratory Results - last 24 hr 04/03/24 04/03/24 04/04/24 06:04 14:02 07:03 WBC 5.3 7.1 RBC 3.96 L 4.06 L Hgb 11.8 L 12.0 Hct 36.9 L 36.8 L MCV 93.2 90.6 MCH 29.8 29.6 MCHC 32.0 32.6 RDW 14.2 14.0 Plt Count 205 241 MPV 12.1 H 11.1 H Immature Gran % (Auto) 1.3 H Neut % (Auto) 73.6 H Lymph % (Auto) 6.2 L [place] % (Auto) 13.7 H Eos % (Auto) 4.6 H Baso % (Auto) 0.6 Lymph # (Auto) 0.44 L [place] # (Auto) 1.0 H Eos # (Auto) 0.3 Baso # (Auto) 0.0 Abs Immat Gran (auto) 0.09 H Absolute Neuts (auto) 5.3 Absolute Nucleated RBC 0.000 Nucleated RBC % 0.0 PT 24.2 H INR 2.1 Sodium 131 L 130 L 131 L Potassium 3.3 L 3.5 3.2 L Chloride 91 L 89 L 92 L Carbon Dioxide 32 H 34 H 32 H Anion Gap 8 7 7 BUN 24 H 24 H 18 H Creatinine 0.63 L 0.71 0.55 L Estim Creat Clear Calc 59 53 67 Estimated GFR > 60 > 60 > 60 Glucose 87 119 H 93 Calcium 8.1 L 8.5 8.2 L Magnesium 2.1 1.9 1.8 Free T4 2.00
[2024-04-04] MEDS: ATORVASTATIN 40 MG TABLET PO (09:03)
[2024-04-04] MEDS: SENNA/DOCUSATE SODIUM TABLET 2 TAB PO ×2 (09:03→17:13)
[2024-04-04] MEDS: CALCIUM CARBONATE (OSCAL) 500 MG TABLET PO (09:03)
[2024-04-04] MEDS: ASCORBIC ACID 500 MG TABLET 1000 MG PO (09:03)
[2024-04-04] MEDS: SODIUM CHLORIDE 1 GM TABLET PO ×2 (09:04→17:14)
[2024-04-04] MEDS: AMIODARONE HCL 200 MG TABLET PO (09:04)
[2024-04-04] MEDS: METOPROLOL SUCCINATE EXT REL 50 MG TABCR PO (09:05)
[2024-04-04] MEDS: amLODIPine BESYLATE 5 MG TABLET BY MOUTH (09:05)
[2024-04-04] MEDS: busPIRone HCL 5 MG TABLET PO ×2 (09:06→17:14)
[2024-04-04] MEDS: LIDOCAINE 5% PATCH 1 PATCH TRANSDERM (09:06)
--- NOTE | 2024-04-04 10:18 | P.PNPL_ITS ---
Progress Note: A&P Assessment and Plan (1) Hypoxemia: Code(s): R09.02 - Hypoxemia Status: Acute Assessment and Plan: Patient with COPD and chronic hypoxemic respiratory failure requiring 1 L nasal cannula from home O2 assessment on 11/25/2023. she wears 1 L nasal cannula at night. Patient now admitted with a pneumothorax status post chest tube removal 03/29/2024. Repeat regarding etiology of her hypoxia: She has evidence of fluid overload with pedal edema, right greater than left pleural effusion, elevated BNP. She has minimal pain and splinting from her right pneumothorax and rib fracture. she likely has atelectasis from her bilateral right greater than left pleural effusions. No evidence for pneumonia. No evidence for COPD exacerbation. 04/03/2024: When I enter the room the patient was on 6 L nasal cannula saturations 98%. I sequentially decreased her to 1 L and after 11 minutes her saturation on 1 L was 91%. afebrile. White blood cell count 7.1, creatinine 0.71. weight is 96.9 kg with an admission weight of 90.9 kg. output has not been measured. Plan: Goal saturation 90-94%. I have been able to titrate the patient back to her 1 L nasal cannula. Tonight I will perform an overnight oximetry on 1 L nasal cannula. Agree with as aggressive diuresis as tolerated by her cardiac and renal systems. Of note she has AFib in while I was in the room her rate ranged from 105-130. 04/04/24: patient tells me she is breathing at her baseline. Her cough is present but less. She denies hemoptysis or phlegm production. Patient is on 2 L nasal cannula in bed with saturations 90%. her weight is 96.4%. She tolerated trelegy this morning. Plan: goal saturation 90-94%, currently lying in bed on 2 L with saturations 90%. Patient being diuresed with Lasix 20 IV b.i.d. per hospitalist team. AFib managed per hospitalist team. Overnight oximetry on 1 L with hypoxemia and will repeat overnight oximetry tonight on [address] Amador, will follow with you. (2) COPD (chronic obstructive pulmonary disease): Qualifiers: COPD type: unspecified COPD Qualified Code(s): J44.9 - Chronic obstructive pulmonary disease, unspecified Code(s): J44.9 - Chronic obstructive pulmonary disease, unspecified Status: Acute Assessment and Plan: Patient with a history of COPD on 1 L nasal cannula with rest, activity and sleep. ABG on 6 L nasal cannula on 04/01/2024 7.42/48/62. Patient has some hypercarbia but not to the extent that she would qualify for noninvasive ventilation at night. eosinophils on admission 373 per micro L Currently there is no evidence of a COPD exacerbation. Plan: I will discontinue her nebulizers. I will place the patient on long- acting beta agonist, long-acting muscarinic antagonist and inhaled corticosteroids and will prescribe trelegy 100. 04/04/23: no evidence of a COPD exacerbation. Plan: No wheezing on exam. Continue trelegy 100. (3) MARC (obstructive sleep apnea): Code(s): G47.33 - Obstructive sleep apnea (adult) (pediatric) Status: Acute Assessment and Plan: Her granddgt brought up patient's history of sleep apnea of which I was unaware of. Looking in previous EMR, she had sleep testing done back in 2009, noted below. This showed mild sleep apnea. She used CPAP for a couple years but had issues with mask fitting so then she stopped using it PSG 09/27/09 - mild MARC AHI 7.2 CPAP titration 10/10/09 - inadequate titration, recommend repeat titration CPAP Titration 10/21/09 - recommend CPAP [id number]. 11/01/24: I will order an overnight oximetry on 1 L nasal cannula. I will try to correct her overnight hypoxemia while waiting for her outpatient sleep study. 11/02/24: Patient had an overnight oximetry on 1 L nasal cannula with recording duration 6 hours and 23 minutes. Average saturation is 89%. Low saturation 77%. Time with saturation less than or equal to 88% was 78 minutes. Oxygen desaturation index 1.5. Plan: Will perform overnight oximetry [facility] Subjective Date/time seen: 04/04/24 10:18 Interval history: 04/03/2024: This is a new pulmonary consult for acute on chronic respiratory failure. 88-year-old with a history of atrial fibrillation, hypothyroidism, hypertension, hyperlipidemia, COPD on home oxygen. Patient is followed in the pulmonary clinic in last seen on 01/29/2024. This is a copy of that note. Kanchan was seen 9 days ago for follow-up regarding COPD on oxygen. Hx: She takes Dupixent for eczema. Dx COPD 5 years ago. MARC. At last visit, she was having symptomatic afib with RVR, new diagnosis. Was sent to the ER where she stayed for 5 days. She was given steroids and nebs for COPD, Lasix for CHF (BNP 5K), and started cardiac meds for her afib. She underwent a CV which was successful. 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 Today, she reports she is doing better since discharge. Her edema is improving. Dyspnea is better. She has been more compliant with her oxygen and Wixela inhaler. She has been checking her HR and reports it has been bouncing around from 90s- 140s. She may be back in afib. She reports return of right side pains on her breast. Her granddgt brought up patient's history of sleep apnea of which I was unaware of. Looking in previous EMR, she had sleep testing done back in 2009, noted below. This showed mild sleep apnea. She used CPAP for a couple years but had issues with mask fitting so then she stopped using it. Kanchan has been more anxious and depression. She is interested in medication. Plan: Continue Wixela 100 b.i.d. requires 1 L at rest and with activity and sleep. Split night sleep study was ordered. 03/26/2024: Patient presented to the emergency room after ground level far. She lost her balance and had a chair. Pain in the right back and developed shortness of breath. Supposed to be on anticoagulation for AFib but ran out of [employer] 4 days ago. Blood pressure 131/78, heart rate 108, respirations 24, saturations 100 on 15 L non-rebreather. White blood cell count 14.9, creatinine 0.88. Eosinophils 2.5%. Chest x-ray revealed a right pneumothorax and Needle decompression was performed with significant dickerson of air. A 16 American chest tube was placed without complications. CT scan showed a posterior right rib fracture. required 15 L nasal cannula 03/29/2024: Chest tube was removed. 7 L nasal cannula saturation 94%. BNP 3850. 03/30/2024: She denied shortness of breath or chest pain. On 6 L nasal cannula saturations 92% 03/31/2024: Feeling better, on 6 L nasal cannula, legs are more swollen. 6 L nasal cannula saturation 94% 04/01/2024: Dyspnea with minimal exertion. 6 L nasal cannula saturations 91%. ABG on 6 L nasal cannula 7.42/48/62 04/02/2024: Dyspnea is improving. 6 L nasal cannula with satuations 96%. BNP 4390 Chest x-ray with small bilateral pleural effusions with bibasilar atelectasis or pneumonia. Cardiomegaly. 04/03/2024: The patient tells me she is now breathing back at her baseline. She does have more cough than usual but this is dry with no hemoptysis. She has no rest shortness of breath but some dyspnea on exertion. Currently the patient has no pain but a little bit of pain with a deep breath. When I enter the room the patient was on 6 L nasal cannula saturations 98%. I sequentially decreased her to 1 L and after 11 minutes her saturation on 1 L was 91%. afebrile. White blood cell count 7.1, creatinine 0.71. weight is 96.9 kg with an admission weight of 90.9 kg. output has not been measured. 04/04/24: patient tells me she is breathing at her baseline. Her cough is present but less. She denies hemoptysis or phlegm production. Patient is on 2 L nasal cannula in bed with saturations 90%. her weight is 96.4%. Patient had an overnight oximetry on 1 L nasal cannula with recording duration 6 hours and 23 minutes. Average saturation is 89%. Low saturation 77%. Time with saturation less than or equal to 88% was 78 minutes. Oxygen desaturation index 1.5. She tolerated trelegy this morning. DATA: 01/23/24: EVY Summary 1. Left ventricle is normal size and systolic function. 2. Right ventricle is normal size and systolic function. 3. The left atrium is dilated. 4. The right atrium is dilated. 5. The left atrial appendage velocity is 53 cm/s. There is no thrombus. 6. The atrial septum is visually intact with no color Doppler evidence of shunt. Echo 01/21/24 - Summary 1. Left ventricular chamber dimension is normal. 2. Left ventricular systolic function is normal, estimated at 60-65%. 3. There is mildly increased left ventricular wall thickness. 4. The left ventricular diastolic function is indeterminate. 5. Right ventricular chamber dimension is mildly enlarged. 6. Left atrial chamber dimension is severely enlarged. 7. Right atrial chamber dimension is severely enlarged. 8. There is mild mitral valve regurgitation. 9. There is mild to moderate tricuspid valve regurgitation. 10. Mild pulmonary hypertension, estimated pulmonary arterial systolic pressure is 42 mmHg. 11. There is mild pulmonic regurgitation. 12. The aortic root size at the sinus of Valsalva is mildly dilated. 13. Dilated inferior vena cava with <50% collapse upon inspiration consistent with elevated right atrial pressure, 15 mmHg. Right Ventricle Right ventricular chamber dimension is mildly enlarged. Right ventricular systolic function is normal. Left Atria Left atrial chamber dimension is severely enlarged. Right Atria Right atrial chamber dimension is severely enlarged. Atrial Septum Suspected patent foramen ovale visualized by color flow imaging. EF 60-65%, mild pulmHTN RVSP 42mmHg. Home O2 Eval 11/25/23 - requires 1L rest and with activity. Chest CT 09/25/23 - The lungs are clear. No pulmonary nodules or infiltrates are noted. Mild emphysema. Home O2 Eval 08/23/21 - requires 1L O2 with activity. PFT 10/06/18 mild obstructive ventilatory impairment, severe small airways pattern. Mild hyperinflation, severe air trapping, severe increase in airway resistance, moderate diffusion impairment. No bronchodilator given. 6mw mild desaturation to 90%. PSG 09/27/09 - mild MARC AHI 7.2 CPAP titration 10/10/09 - inadequate titration, recommend repeat titration CPAP Titration 10/21/09 - recommend CPAP [id number]. Review of Systems Constitutional: Constitutional: Reports no additional constitutional complaints Eyes: Eyes: Reports no additional eye complaints ENT: Reports system reviewed and no additional complaints, except as documented Cardiovascular: Cardiovascular: Reports no additional cardiovascular complaints Respiratory: Respiratory: Reports no additional respiratory complaints Gastrointestinal: Gastrointestinal: Reports no additional gastrointestinal complaints Musculoskeletal: Musculoskeletal: Reports no additional musculoskeletal complaints Neurologic: Reports system reviewed and no additional complaints, except as documented Psychiatric: Psychiatric: Reports no additional psychiatric complaints Endocrine: Endocrine: Reports no additional endocrine complaints Hematologic/Lymphatic: Hematologic/Lymphatic: Reports no additional hematologic/lymphatic complaints Allergic/Immunologic: Allergic/Immunologic: Reports no additional allergic/immunologic complaints Exam Const: General: cooperative, healthy appearing and comfortable Orientation/consciousness: oriented to person, oriented to place and oriented to time HENMT: Head: normal to inspection Ears: hearing grossly normal bilaterally Eyes: General: appearance normal, both eyes and all related structures Neck: Neck: normal visual inspection Chest: Chest palpation & inspection: normal inspection of the chest Resp: Effort & Inspection: normal respiratory effort and able to speak in complete sentences Auscultation: crackles, no rales, no rhonchi, no wheezes and diminished lung sounds Other: Decreased breath sounds at the bases with some crackles. No wheezes. Cardio: Jugular venous distension: no JVD GI: Inspection: normal to inspection Skin: General skin exam: normal color Neuro: General: oriented to person, oriented to place and oriented to time Extrem: General: normal to inspection and edema Psych: Appearance: grossly normal Objective Data Vital Signs Vital Signs: Vital Signs - 24 hr 04/03/24 14:00 04/03/24 14:15 04/03/24 14:24 Temperature 36.7 C Pulse Rate 114 H 100 105 H Respiratory Rate 20 20 20 Blood Pressure 108/68 Pulse Oximetry 94 Oxygen Delivery Oxygen Flow Rate Fraction of Inspired Oxygen 04/03/24 20:00 04/03/24 21:54 04/04/24 05:30 Temperature 36.5 C 36.4 C Pulse Rate 107 H 107 H Respiratory Rate 18 18 Blood Pressure 126/62 108/72 Pulse Oximetry 91 91 90 Oxygen Delivery High Flow Nasal Cannula Oxygen Flow Rate 1 Fraction of Inspired Oxygen 04/04/24 08:30 04/04/24 08:30 04/04/24 09:04 Temperature Pulse Rate 100 104 H Respiratory Rate 20 Blood Pressure Pulse Oximetry 90 Oxygen Delivery Nasal Cannula Oxygen Flow Rate 2 Fraction of Inspired Oxygen 28 04/04/24 09:05 Temperature Pulse Rate 106 H Respiratory Rate Blood Pressure Pulse Oximetry Oxygen Delivery Oxygen Flow Rate Fraction of Inspired Oxygen Intake/Output Intake/Output: Intake & Output 04/01/24 04/02/24 04/03/24 04/04/24 23:59 23:59 23:59 23:59 Intake Total 792 1782 1150 300 Output Total 0 Balance 792 1782 1150 300 Meds/Results Medications: Active Medications Generic Name Dose Route Start Last Admin Trade Name Freq PRN Reason Stop Dose Admin Acetaminophen 1,000 mg 03/28/24 09:37 03/29/24 20:46 Acetaminophen 500 Mg Tablet PO 1,000 mg Q6H PRN Administration Mild Pain (1-3) or Fever Hydrocodone Bitart/Acetaminophen 1 tab 03/28/24 09:33 04/04/24 05:41 Hydrocodone/Acetaminophen (*Crx) 5-325 Mg Tablet PO 1 tab Q4H PRN Administration Pain Rated 4-6 Albuterol 2.5 mg 04/01/24 10:57 Albuterol Sulfate Neb 2.5 Mg/3 Ml Inh INHALATION Q4HRT PRN Shortness Of Breath Alprazolam 0.5 mg 04/03/24 15:14 Alprazolam (*Crx) 0.5 Mg Tablet PO TID PRN Anxiety Amiodarone HCl 200 mg 03/27/24 09:00 04/04/24 09:04 Amiodarone Hcl 200 Mg Tablet PO 200 mg DAILY MIGUEL Administration Amlodipine Besylate 5 mg 03/27/24 09:00 04/04/24 09:05 Amlodipine Besylate 5 Mg Tablet BY MOUTH 5 mg DAILY MIGUEL Administration Ascorbic Acid 1,000 mg 03/27/24 09:00 04/04/24 09:03 Ascorbic Acid 500 Mg Tablet PO 1,000 mg QAM MIGUEL Administration Atorvastatin Calcium 40 mg 03/27/24 09:00 04/04/24 09:03 Atorvastatin 40 Mg Tablet PO 40 mg DAILY MIGUEL Administration Buspirone HCl 5 mg 03/27/24 09:00 04/04/24 09:06 Buspirone Hcl 5 Mg Tablet PO 5 mg BID MIGUEL Administration Calcium Carbonate 500 mg 03/27/24 09:00 04/04/24 09:03 Calcium Carbonate (Oscal) 500 Mg Tablet PO 500 mg QAM MIGUEL Administration Fluticasone/Umeclidinium/Vilanterol 1 puff 04/04/24 08:00 04/04/24 08:30 Fluticasone/Umeclidin/Vilanter 100-62.5-25 Mcg Ellipta INHALATION 1 puff DAILYRT MIGUEL Administration Furosemide 20 mg 04/02/24 09:00 04/03/24 17:00 Furosemide Inj 40 Mg/4 Ml Vial IV PUSH 20 mg BID MIGUEL Administration Hydromorphone HCl 0.5 mg 03/28/24 09:33 03/31/24 06:33 Hydromorphone Hcl Inj (*Crx) 1 Mg/Ml Syr IV PUSH 0.5 mg Q3H PRN Administration Pain Rated 7-10 Levothyroxine Sodium 75 mcg 03/28/24 06:30 04/04/24 05:35 Levothyroxine Sodium 75 Mcg Tablet BY MOUTH 75 mcg DAILY@0630 MIGUEL Administration Lidocaine 1 patch 03/30/24 09:00 04/04/24 09:06 Lidocaine 5% Patch TRANSDERM 1 patch DAILY MIGUEL Administration Metoprolol Succinate 50 mg 03/27/24 09:00 04/04/24 09:05 Metoprolol Succinate Ext Rel 50 Mg Tabcr PO 50 mg QAM MIGUEL Administration * Home Med * 300 mg 04/14/24 09:00 Dupilumab [Dupixent SUB-Q 05/14/24 08:59 Syringe] 300 Mg/2 Ml [id number] MIGUEL Syringe Oxycodone HCl 5 mg 03/28/24 09:33 04/02/24 11:00 Oxycodone Hcl (*Crx) 5 Mg Tab Ir PO 5 mg Q4H PRN Administration Pain Rated 7-10 Perflutren Lipid Microsphere 0 ml 04/03/24 15:20 Perflutren Lipid Microspheres 1.5 Ml Vial Diluted To 10 Ml Total Volume IV PUSH 04/06/24 15:20 ONCE PRN adequate visualization Protocol Potassium Chloride 20 meq 03/27/24 09:00 03/30/24 18:02 Potassium Chloride 20 Meq Er Tablet PO 20 meq BID MIGUEL Administration Senna/Docusate Sodium 2 tab 03/28/24 22:25 04/04/24 09:03 Senna/Docusate Sodium Tablet PO 2 tab BID MIGUEL Administration Sodium Chloride 1 gm 04/02/24 17:00 04/04/24 09:04 Sodium Chloride 1 Gm Tablet PO 1 gm BID MIGUEL Administration Warfarin Sodium 3 mg 03/31/24 13:46 Warfarin (*Pbkc) 3 Mg Tablet PO EVENING [facility] Radiology Results: ITS Impressions Chest CT 03/26/24 21:50 IMPRESSION: Redemonstration of a right-sided pneumothorax, approximately 15-20% in size with a right posterior medial fifth rib fracture. Head CT 03/26/24 23:09 Impression: No acute intracranial hemorrhage or suspicious mass effect. Cervical Spine CT 03/26/24 23:13 Impression: Straightening and slight reversal of the normal curvature of the cervical spine, likely muscular in origin. Significant degenerative disease, without acute fracture. Chest CTA 03/29/24 08:00 IMPRESSION: 1. Right chest tube in expected position with small right pleural effusion but no pneumothorax. 2. Mild emphysema with mild dependent atelectasis in both lungs. 3. Cardiomegaly with biatrial enlargement. 4. Enlargement of the central pulmonary arteries consistent with pulmonary arterial hypertension. 5. Recent-appearing nondisplaced fractures of the posterior right fifth and sixth ribs. Chest X-Ray 04/02/24 13:10 IMPRESSION: 1. Small bilateral pleural effusions with associated bibasilar atelectasis and/or pneumonia. 2. Cardiomegaly. Labs Labs: Laboratory Results - last 24 hr 04/03/24 04/03/24 04/04/24 06:04 14:02 07:03 WBC 5.3 7.1 RBC 3.96 L 4.06 L Hgb 11.8 L 12.0 Hct 36.9 L 36.8 L MCV 93.2 90.6 MCH 29.8 29.6 MCHC 32.0 32.6 RDW 14.2 14.0 Plt Count 205 241 MPV 12.1 H 11.1 H Immature Gran % (Auto) 1.3 H Neut % (Auto) 73.6 H Lymph % (Auto) 6.2 L [place] % (Auto) 13.7 H Eos % (Auto) 4.6 H Baso % (Auto) 0.6 Lymph # (Auto) 0.44 L [place] # (Auto) 1.0 H Eos # (Auto) 0.3 Baso # (Auto) 0.0 Abs Immat Gran (auto) 0.09 H Absolute Neuts (auto) 5.3 Absolute Nucleated RBC 0.000 Nucleated RBC % 0.0 PT 24.2 H INR 2.1 Sodium 131 L 130 L 131 L Potassium 3.3 L 3.5 3.2 L Chloride 91 L 89 L 92 L Carbon Dioxide 32 H 34 H 32 H Anion Gap 8 7 7 BUN 24 H 24 H 18 H Creatinine 0.63 L 0.71 0.55 L Estim Creat Clear Calc 59 53 67 Estimated GFR > 60 > 60 > 60 Glucose 87 119 H 93 Calcium 8.1 L 8.5 8.2 L Magnesium 2.1 1.9 1.8 Free T4 2.00
[2024-04-04] MEDS: POTASSIUM CHLORIDE 20 MEQ ER TABLET 40 MEQ PO (15:00)
[2024-04-04 15:09] LABS: Basophils Percent Auto 0.5 % (0.2-1.2); Eosinophils Absolute Auto 0.4 K/mm3 (0-0.3); Eosinophils Percent Auto 4.9 % (0-4.4); Hematocrit 37.3 % (37.0-47.0); Hemoglobin 12.2 g/dL (12.0-15.0); Immature Granulocyte Percent A 1.3 % (0-0.5); Lymphocytes Absolute Auto 0.48 K/mm3 (0.9-3.2); Lymphocytes Percent Auto 6.1 % (18.3-44.2); Mean Corpuscular HGB Conc 32.7 g/dl (32-36); Mean Corpuscular Hemoglobin 29.5 pg (26-34); Mean Corpuscular Volume 90.3 fl (80-100); Mean Platelet Volume 10.3 fl (7.4-10.4); Monocytes Absolute Auto 0.9 K/mm3 (0.1-0.6); Neutrophils Absolute Auto 5.9 K/mm3 (1.3-6.7); Neutrophils Percent Auto 75.2 % (45.5-73.1); Platelet Count Result 252 k/mm3 (150-375); Red Blood Count 4.13 M/mm3 (4.2-5.4); Red Cell Distribution Width 14.2 % (11.5-14.5); White Blood Count 7.8 K/mm3 (4.5-10.0)
[2024-04-04 15:20] LABS: Anion Gap 7 mmol/L (4-12); Blood Urea Nitrogen 19 mg/dL (7-17); Calcium 8.6 mg/dL (8.4-10.2); Carbon Dioxide 34 mmol/L (22-30); Chloride 89 mmol/L (98-107); Estimated CRCL calculation 51 ml/min; Estimated Glomerular Filt Rate > 60; Glucose 98 mg/dL (65-110); Magnesium 1.9 mg/dL (1.6-2.3); Potassium 3.7 mmol/L (3.4-5.0); Sodium 130 mmol/L (137-145)
[2024-04-04] MEDS: FUROSEMIDE INJ 40 MG/4 ML VIAL 20 MG IV PUSH (17:19)
--- NOTE | 2024-04-04 17:21 | PC.NURSE ---
per PERIOPERATIVE NURSE request IV lasix given. IV and site WNL, Flush before and after medication administration without difficulty.
[2024-04-04] MEDS: oxyCODONE HCL (*CRX) 5 MG TAB IR PO (20:43)
[2024-04-05] VITALS (10 sets, daily range): BP systolic 106–118; BP diastolic 70–73; PULSE 91–106; RESP 18–20; TEMP 36.2–36.6; O2SAT 87–95
[2024-04-05] MEDS: HYDROcodone/acetaminophen (*CRX) 5-325 MG TABLET 1 TAB PO ×3 (00:01→15:34)
[2024-04-05] MEDS: ALPRAZolam (*CRX) 0.5 MG TABLET PO ×2 (04:01→21:58)
[2024-04-05] MEDS: LEVOTHYROXINE SODIUM 75 MCG TABLET BY MOUTH (06:29)
[2024-04-05 08:02] LABS: Anion Gap 7 mmol/L (4-12); Blood Urea Nitrogen 18 mg/dL (7-17); Calcium 8.1 mg/dL (8.4-10.2); Carbon Dioxide 32 mmol/L (22-30); Chloride 91 mmol/L (98-107); Estimated CRCL calculation 63 ml/min; Estimated Glomerular Filt Rate > 60; Glucose 85 mg/dL (65-110); Magnesium 1.9 mg/dL (1.6-2.3); Potassium 3.7 mmol/L (3.4-5.0); Sodium 130 mmol/L (137-145)
[2024-04-05 08:12] LABS: INR 1.9; Prothrombin Time 22.3 Seconds (11.1-14.7)
[2024-04-05] MEDS: FLUTICASONE/UMECLIDIN/VILANTER 100-62.5-25 MCG ELLIPTA 1 PUFF INHALATION (08:17)
[2024-04-05 08:47] LABS: NT Pro B Type Natriuretic Pept 1150 pg/mL (19.9-100)
--- NOTE | 2024-04-05 09:00 | P.PNIM_ITS ---
Progress Note: A&P Assessment and Plan (1) Pneumothorax: Code(s): J93.9 - Pneumothorax, unspecified Status: Acute (2) MARC (obstructive sleep apnea): Code(s): G47.33 - Obstructive sleep apnea (adult) (pediatric) Status: Acute (3) Chronic respiratory failure: Qualifiers: Respiratory failure complication: hypoxia Qualified Code(s): J96.11 - Chronic respiratory failure with hypoxia Code(s): J96.10 - Chronic respiratory failure, unspecified whether with hypoxia or hypercapnia Status: Acute (4) COPD (chronic obstructive pulmonary disease): Qualifiers: COPD type: unspecified COPD Qualified Code(s): J44.9 - Chronic obstructive pulmonary disease, unspecified Code(s): J44.9 - Chronic obstructive pulmonary disease, unspecified Status: Acute (5) Closed rib fracture: Code(s): S22.39XA - Fracture of one rib, unspecified side, initial encounter for closed fracture Status: Acute (6) GERD (gastroesophageal reflux disease): Qualifiers: Esophagitis presence: without esophagitis Qualified Code(s): K21.9 - Gastro-esophageal reflux disease without esophagitis Code(s): K21.9 - Gastro-esophageal reflux disease without esophagitis Status: Acute (7) Hypothyroidism: Qualifiers: Hypothyroidism type: acquired Qualified Code(s): E03.9 - Hypothyroidism, unspecified Code(s): E03.9 - Hypothyroidism, unspecified Status: Acute (8) Hyperlipidemia: Qualifiers: Hyperlipidemia type: elevated lipoprotein(a) Qualified Code(s): E78.41 - Elevated Lipoprotein(a) Code(s): E78.5 - Hyperlipidemia, unspecified Status: Acute (9) Afib: Qualifiers: Atrial fibrillation type: unspecified Qualified Code(s): I48.91 - U nspecified atrial fibrillation Code(s): I48.91 - Unspecified atrial fibrillation Status: Acute (10) CHF (congestive heart failure): Qualifiers: Heart failure chronicity: unspecified Heart failure type: unspecified Qualified Code(s): I50.9 - Heart failure, unspecified Code(s): I50.9 - Heart failure, unspecified Status: Acute (11) Hypertension: Qualifiers: Hypertension type: primary hypertension Qualified Code(s): I10 - Essential (primary) hypertension Code(s): I10 - Essential (primary) hypertension Status: Acute Plan This is an 88-year-old female presented to the ER after ground level fall. She was getting something out of a cabinet when she lost her balance and fell backwards hitting a chair. She had pain in her right back. She then developed shortness of breath. She came to the ER to be evaluated. She denies head trauma loss of consciousness. She has been ambulatory since the incident. Patient is supposed to be on anticoagulation for atrial fibrillation but ran out of her Eliquis 4 days ago. She has been prescribed Coumadin by her fire range technician but has not started taking Acute pneumothorax Likely resulting in a fall a needle decompression was performed for suspected tension pneumothorax the 2nd intercostal space on the right significant dickerson air. CT chest performed which showed right-sided pneumothorax with subcutaneous air along the right anterolateral chest wall and posterior medial chest wall. Chest tube was placed, consulted general surgeon for management Chest tube has now been removed 03/29/2024.has right chest wall pain at the back COPD acute on chronic chronic hypoxic respiratory failure on home oxygen with acute exacerbation 03/29/2024. IV Lasix received overnight. CTA Negative for PE or pneumonia. Patient needs high-flow oxygen since admission Start DuoNeb scheduled albuterol nebulizer p.r.n., ABG: Hypercapnic and hypoxemic respiratory failure Diastolic heart failure with exacerbation. Echocardiogram showed EF of 60-65%, mild pulmonary hypertension, diastolic dysfunction is indeterminate Received IV Lasix On Lasix 40 mg daily p.o. Patient is fluid overloaded Change to Lasix 20 mg b.i.d. IV push and give Lasix 40 mg ivp once 04/01 X-ray showed cardiomegaly, increased interstitial change, increase to 40mg bid 04/02 Follow-up input output BNP: 4390 on 04/02 Acute on chronic respiratory failure Patient need 1-2 L oxygen and home Now patient has worsening dyspnea Likely resulting from COPD, chest restriction and fluid overload ABG showed hypercapnic and hypoxemic respiratory failure Start bronchodilators, and start IV Lasix 04/01 X-ray showed cardiomegaly atelectasis Continue O2 therapy Provide incentive spirometry Patient still needs 6 L oxygen per nasal cannular 04/03 Consult compliance testing analyst for evaluation treatment Hypoxemia improving Suspecting MARC, pending sleep study Atrial fibrillation on amiodarone and metoprolol And warfarin 3 mg daily INR in therapeutic range Hyponatremia Likely secondary to poor oral intake and IV Lasix Provide sodium chloride 1 g b.i.d. p.o. 04/02 Increase sodium chloride to 1 g t.i.d. p.o. 04/05 Hypothyroidism On Synthroid 75 mcg daily p.o. Hypertension Amlodipine 5 mg daily p.o. Blood pressure is controlled Hyperlipidemia On Lipitor 40 mg daily p.o. GERD Varicose vein Osteoarthritis Anticoagulation with Eliquis DVT prophylaxis currently on warfarin INR Code status full code Subjective Date/time seen: 04/05/24 09:00 Interval history: I saw examined the patient today. Patient feels dyspnea is improving, exercise tolerance increase. Patient needs O2 therapy via nasal cannular. Right back chest pain improved. Suspect MARC, pending sleeping study Exam Narrative: GENERAL: Pleasant, in no acute distress. Well-nourished. - EYES: EOMI. Anicteric. - HENT: Moist mucous membranes. - LUNGS: Crackles bilateral base, reduc ing. No wheezing, rhonchi, at right chest pain - CARDIOVASCULAR: Regular rate and rhyth m. No murmur. No JVD. - ABDOMEN: Soft, non-tender and non-dist ended. No palpable masses. - EXTREMITIES: No edema. Peripheral puls es 2+. Non-tender. - NEUROLOGIC: No focal neurological defi cits. CN II-XII grossly intact. - PSYCHIATRIC: Awake, Alert and oriented x 3. Appropriate mood and affect. - SKIN: No rashes or lesions. Warm. - LYMPH: No cervical lymphadenopathy. Objective Data Vital Signs Vital Signs: Vital Signs - 24 hr 04/04/24 09:04 04/04/24 09:05 04/04/24 14:00 Temperature 98.1 F Pulse Rate 104 H 106 H 107 H Respiratory Rate 18 Blood Pressure 110/62 Pulse Oximetry 92 Oxygen Delivery Oxygen Flow Rate 04/04/24 20:00 04/04/24 21:59 04/05/24 06:00 Temperature 97.5 F L 97.1 F L Pulse Rate 115 H 106 H Respiratory Rate 18 18 Blood Pressure 127/86 110/73 Pulse Oximetry 91 91 92 Oxygen Delivery Nasal Cannula Oxygen Flow Rate 3 04/05/24 08:17 Temperature Pulse Rate Respiratory Rate 20 Blood Pressure Pulse Oximetry Oxygen Delivery Oxygen Flow Rate Intake/Output Intake/Output: Intake & Output 02/13/25 02/14/25 02/15/25 02/16/25 23:59 23:59 23:59 23:59 Intake Total 1782 1150 1020 Output Total 0 Balance 1782 1150 1020 Meds/Results Medications: Active Medications Generic Name Dose Route Start Last Admin Trade Name Freq PRN Reason Stop Dose Admin Acetaminophen 1,000 mg 03/28/24 09:37 03/29/24 20:46 Acetaminophen 500 Mg Tablet PO 1,000 mg Q6H PRN Administration Mild Pain (1-3) or Fever Hydrocodone Bitart/Acetaminophen 1 tab 03/28/24 09:33 04/05/24 00:01 Hydrocodone/Acetaminophen (*Crx) 5-325 Mg Tablet PO 1 tab Q4H PRN Administration Pain Rated 4-6 Albuterol 2.5 mg 04/01/24 10:57 Albuterol Sulfate Neb 2.5 Mg/3 Ml Inh INHALATION Q4HRT PRN Shortness Of Breath Alprazolam 0.5 mg 04/03/24 15:14 04/05/24 04:01 Alprazolam (*Crx) 0.5 Mg Tablet PO 0.5 mg TID PRN Administration Anxiety Amiodarone HCl 200 mg 03/27/24 09:00 04/04/24 09:04 Amiodarone Hcl 200 Mg Tablet PO 200 mg DAILY MIGUEL Administration Amlodipine Besylate 5 mg 03/27/24 09:00 04/04/24 09:05 Amlodipine Besylate 5 Mg Tablet BY MOUTH 5 mg DAILY MIGUEL Administration Ascorbic Acid 1,000 mg 03/27/24 09:00 04/04/24 09:03 Ascorbic Acid 500 Mg Tablet PO 1,000 mg QAM MIGUEL Administration Atorvastatin Calcium 40 mg 03/27/24 09:00 04/04/24 09:03 Atorvastatin 40 Mg Tablet PO 40 mg DAILY MIGUEL Administration Buspirone HCl 5 mg 03/27/24 09:00 04/04/24 17:14 Buspirone Hcl 5 Mg Tablet PO 5 mg BID MIGUEL Administration Calcium Carbonate 500 mg 03/27/24 09:00 04/04/24 09:03 Calcium Carbonate (Oscal) 500 Mg Tablet PO 500 mg QAM MIGUEL Administration Fluticasone/Umeclidinium/Vilanterol 1 puff 04/04/24 08:00 04/05/24 08:17 Fluticasone/Umeclidin/Vilanter 100-62.5-25 Mcg Ellipta INHALATION 1 puff DAILYRT MIGUEL Administration Furosemide 20 mg 04/02/24 09:00 04/04/24 17:19 Furosemide Inj 40 Mg/4 Ml Vial IV PUSH 20 mg BID MIGUEL Administration Hydromorphone HCl 0.5 mg 03/28/24 09:33 03/31/24 06:33 Hydromorphone Hcl Inj (*Crx) 1 Mg/Ml Syr IV PUSH 0.5 mg Q3H PRN Administration Pain Rated 7-10 Levothyroxine Sodium 75 mcg 03/28/24 06:30 04/05/24 06:29 Levothyroxine Sodium 75 Mcg Tablet BY MOUTH 75 mcg DAILY@0630 MIGUEL Administration Lidocaine 1 patch 03/30/24 09:00 04/04/24 09:06 Lidocaine 5% Patch TRANSDERM 1 patch DAILY MIGUEL Administration Metoprolol Succinate 50 mg 03/27/24 09:00 04/04/24 09:05 Metoprolol Succinate Ext Rel 50 Mg Tabcr PO 50 mg QAM MIGUEL Administration * Home Med * 300 mg 04/14/24 09:00 Dupilumab [Dupixent SUB-Q 05/14/24 08:59 Syringe] 300 Mg/2 Ml [id number] MIGUEL Syringe Oxycodone HCl 5 mg 03/28/24 09:33 04/04/24 20:43 Oxycodone Hcl (*Crx) 5 Mg Tab Ir PO 5 mg Q4H PRN Administration Pain Rated 7-10 Perflutren Lipid Microsphere 0 ml 04/03/24 15:20 Perflutren Lipid Microspheres 1.5 Ml Vial Diluted To 10 Ml Total Volume IV PUSH 04/06/24 15:20 ONCE PRN adequate visualization Protocol Potassium Chloride 20 meq 03/27/24 09:00 03/30/24 18:02 Potassium Chloride 20 Meq Er Tablet PO 20 meq BID MIGUEL Administration Senna/Docusate Sodium 2 tab 03/28/24 22:25 04/04/24 17:13 Senna/Docusate Sodium Tablet PO 2 tab BID MIGUEL Administration Sodium Chloride 1 gm 04/02/24 17:00 04/04/24 17:14 Sodium Chloride 1 Gm Tablet PO 1 gm BID MIGUEL Administration Warfarin Sodium 3 mg 03/31/24 13:46 Warfarin (*Pbkc) 3 Mg Tablet PO EVENING MIGUEL Radiology Results: ITS Impressions Chest CT 03/26/24 21:50 IMPRESSION: Redemonstration of a right-sided pneumothorax, approximately 15-20% in size with a right posterior medial fifth rib fracture. Head CT 03/26/24 23:09 Impression: No acute intracranial hemorrhage or suspicious mass effect. Cervical Spine CT 03/26/24 23:13 Impression: Straightening and slight reversal of the normal curvature of the cervical spine, likely muscular in origin. Significant degenerative disease, without acute fracture. Chest CTA 03/29/24 08:00 IMPRESSION: 1. Right chest tube in expected position with small right pleural effusion but no pneumothorax. 2. Mild emphysema with mild dependent atelectasis in both lungs. 3. Cardiomegaly with biatrial enlargement. 4. Enlargement of the central pulmonary arteries consistent with pulmonary arterial hypertension. 5. Recent-appearing nondisplaced fractures of the posterior right fifth and sixth ribs. Chest X-Ray 04/02/24 13:10 IMPRESSION: 1. Small bilateral pleural effusions with associated bibasilar atelectasis and/or pneumonia. 2. Cardiomegaly. Labs Labs: Laboratory Results - last 24 hr 04/04/24 04/05/24 15:03 07:19 WBC 7.8 RBC 4.13 L Hgb 12.2 Hct 37.3 MCV 90.3 MCH 29.5 MCHC 32.7 RDW 14.2 Plt Count 252 MPV 10.3 Immature Gran % (Auto) 1.3 H Neut % (Auto) 75.2 H Lymph % (Auto) 6.1 L [place] % (Auto) 12.0 H Eos % (Auto) 4.9 H Baso % (Auto) 0.5 Lymph # (Auto) 0.48 L [place] # (Auto) 0.9 H Eos # (Auto) 0.4 H Baso # (Auto) 0.0 Abs Immat Gran (auto) 0.10 H Absolute Neuts (auto) 5.9 Absolute Nucleated RBC 0.000 Nucleated RBC % 0.0 PT 22.3 H INR 1.9 Sodium 130 L 130 L Potassium 3.7 3.7 Chloride 89 L 91 L Carbon Dioxide 34 H 32 H Anion Gap 7 7 BUN 19 H 18 H Creatinine 0.74 0.61 L Estim Creat Clear Calc 51 63 Estimated GFR > 60 > 60 Glucose 98 85 Calcium 8.6 8.1 L Magnesium 1.9 1.9 NT-Pro-B Natriuret Pep 1150 H
[2024-04-05] MEDS: METOPROLOL SUCCINATE EXT REL 50 MG TABCR PO (09:26)
[2024-04-05] MEDS: SODIUM CHLORIDE 1 GM TABLET PO ×3 (09:26→17:43)
[2024-04-05] MEDS: AMIODARONE HCL 200 MG TABLET PO (09:29)
[2024-04-05] MEDS: busPIRone HCL 5 MG TABLET PO ×2 (09:29→17:43)
[2024-04-05] MEDS: ASCORBIC ACID 500 MG TABLET 1000 MG PO (09:29)
[2024-04-05] MEDS: SENNA/DOCUSATE SODIUM TABLET 2 TAB PO ×2 (09:29→17:43)
[2024-04-05] MEDS: LIDOCAINE 5% PATCH 1 PATCH TRANSDERM (09:30)
[2024-04-05] MEDS: ATORVASTATIN 40 MG TABLET PO (09:30)
[2024-04-05] MEDS: CALCIUM CARBONATE (OSCAL) 500 MG TABLET PO (09:30)
[2024-04-05] MEDS: amLODIPine BESYLATE 5 MG TABLET BY MOUTH (09:30)
[2024-04-05 09:41] LABS: Basophils Percent Auto 0.5 % (0.2-1.2); Eosinophils Absolute Auto 0.4 K/mm3 (0-0.3); Eosinophils Percent Auto 6.2 % (0-4.4); Hematocrit 35.6 % (37.0-47.0); Hemoglobin 11.2 g/dL (12.0-15.0); Immature Granulocyte Absolute 0.08 K/mm3 (0.00-0.031); Immature Granulocyte Percent A 1.3 % (0-0.5); Lymphocytes Absolute Auto 0.61 K/mm3 (0.9-3.2); Lymphocytes Percent Auto 9.7 % (18.3-44.2); Mean Corpuscular HGB Conc 31.5 g/dl (32-36); Mean Corpuscular Hemoglobin 29.2 pg (26-34); Mean Corpuscular Volume 92.7 fl (80-100); Mean Platelet Volume 11.4 fl (7.4-10.4); Monocytes Absolute Auto 0.9 K/mm3 (0.1-0.6); Monocytes Percent Auto 14.8 % (2.6-8.5); Neutrophils Absolute Auto 4.2 K/mm3 (1.3-6.7); Neutrophils Percent Auto 67.5 % (45.5-73.1); Platelet Count Result 223 k/mm3 (150-375); Red Blood Count 3.84 M/mm3 (4.2-5.4); Red Cell Distribution Width 14.2 % (11.5-14.5); White Blood Count 6.3 K/mm3 (4.5-10.0)
[2024-04-05] MEDS: FUROSEMIDE INJ 40 MG/4 ML VIAL 20 MG IV PUSH ×2 (09:54→18:53)
--- NOTE | 2024-04-05 10:50 | PM.PNPUL ---
Progress Note: A&P Assessment and Plan (1) Hypoxemia: Code(s): R09.02 - Hypoxemia Status: Acute Assessment and Plan: Patient with COPD and chronic hypoxemic respiratory failure requiring 1 L nasal cannula from home O2 assessment on 11/25/2023. she wears 1 L nasal cannula at night. Patient now admitted with a pneumothorax status post chest tube removal 03/29/2024. Repeat regarding etiology of her hypoxia: She has evidence of fluid overload with pedal edema, right greater than left pleural effusion, elevated BNP. She has minimal pain and splinting from her right pneumothorax and rib fracture. she likely has atelectasis from her bilateral right greater than left pleural effusions. No evidence for pneumonia. No evidence for COPD exacerbation. 04/03/2024: When I enter the room the patient was on 6 L nasal cannula saturations 98%. I sequentially decreased her to 1 L and after 11 minutes her saturation on 1 L was 91%. afebrile. White blood cell count 7.1, creatinine 0.71. weight is 96.9 kg with an admission weight of 90.9 kg. output has not been measured. Plan: Goal saturation 90-94%. I have been able to titrate the patient back to her 1 L nasal cannula. Tonight I will perform an overnight oximetry on 1 L nasal cannula. Agree with as aggressive diuresis as tolerated by her cardiac and renal systems. Of note she has AFib in while I was in the room her rate ranged from 105-130. 04/04/24: patient tells me she is breathing at her baseline. Her cough is present but less. She denies hemoptysis or phlegm production. Patient is on 2 L nasal cannula in bed with saturations 90%. her weight is 96.4%. She tolerated trelegy this morning. Plan: goal saturation 90-94%, currently lying in bed on 2 L with saturations 90%. Patient being diuresed with Lasix 20 IV b.i.d. per hospitalist team. AFib managed per hospitalist team. Overnight oximetry on 1 L with hypoxemia and will repeat overnight oximetry tonight on 3 L. 04/05/24: Overall patient tells me she is breathing at her baseline. She denies cough, phlegm or hemoptysis. She slept well. Creatinine is 0.61. saturations on 1 L nasal cannula are 90%. Her weight today is 100.5. BNP has improved from 4390 on 04/02/2024 to 1150 today. Overnight oximetry on 3 L nasal cannula with recording duration of 6 hours and 31 minutes. Average saturation 91%. Low saturation 78%. Time with saturation less than or equal to 88% was 20 minutes, oxygen desaturation index 1.6. Plan: goal saturation 90-94%, currently lying in bed on 1 L with saturations 90%. Patient being diuresed with Lasix 20 IV b.i.d. per hospitalist team, BNP has improved. AFib managed per hospitalist team. Overnight oximetry on 3 L with hypoxemia and will repeat overnight oximetry tonight on [address] Amador, will follow with you. (2) COPD (chronic obstructive pulmonary disease): Qualifiers: COPD type: unspecified COPD Qualified Code(s): J44.9 - Chronic obstructive pulmonary disease, unspecified Code(s): J44.9 - Chronic obstructive pulmonary disease, unspecified Status: Acute Assessment and Plan: Patient with a history of COPD on 1 L nasal cannula with rest, activity and sleep. ABG on 6 L nasal cannula on 04/01/2024 7.42/48/62. Patient has some hypercarbia but not to the extent that she would qualify for noninvasive ventilation at night. eosinophils on admission 373 per micro L Currently there is no evidence of a COPD exacerbation. Plan: I will discontinue her nebulizers. I will place the patient on long-acting beta agonist, long-acting muscarinic antagonist and inhaled corticosteroids and will prescribe trelegy 100. 04/04/23: no evidence of a COPD exacerbation. Plan: No wheezing on exam. Continue trelegy 100. 04/05/24: No evidence of COPD exacerbation or wheezing on trelegy 100, will continue (3) MARC (obstructive sleep apnea): Code(s): G47.33 - Obstructive sleep apnea (adult) (pediatric) Status: Acute Assessment and Plan: Her granddaughter brought up patient's history of sleep apnea of which I was unaware of. Looking in previous EMR, she had sleep testing done back in 2009, noted below. This showed mild sleep apnea. She used CPAP for a couple years but had issues with mask fitting so then she stopped using it PSG 8/10/10 - mild MARC AHI 7.2 CPAP titration 10/10/09 - inadequate titration, recommend repeat titration CPAP Titration 10/21/09 - recommend CPAP [id number]. 04/03/24: I will order an overnight oximetry on 1 L nasal cannula. I will try to correct her overnight hypoxemia while waiting for her outpatient sleep study. 04/04/24: Patient had an overnight oximetry on 1 L nasal cannula with recording duration 6 hours and 23 minutes. Average saturation is 89%. Low saturation 77%. Time with saturation less than or equal to 88% was 78 minutes. Oxygen desaturation index 1.5. Plan: Will perform overnight oximetry on 3 L nasal cannula tonight. 04/05/24: Overnight oximetry on 3 L nasal cannula with recording duration of 6 hours and 31 minutes. Average saturation 91%. Low saturation 78%. Time with saturation less than or equal to 88% was 20 minutes, oxygen desaturation index 1.6. Plan: Overnight oximetry on 3 L with hypoxemia and will repeat overnight oximetry tonight on 4 L. she has a history of obstructive sleep apnea and says that 3 L did not cause any problems with her and I will put her on a maximum of 4 L to see if this can correct her nocturnal hypoxemia while she is waiting for outpatient sleep study which was ordered 01/29/24. Subjective Date/time seen: 04/05/24 10:50 Interval history: 04/03/2024: This is a new pulmonary consult for acute on chronic respiratory failure. 88-year-old with a history of atrial fibrillation, hypothyroidism, hypertension, hyperlipidemia, COPD on home oxygen. Patient is followed in the pulmonary clinic in last seen on 01/29/2024. This is a copy of that note. Kanchan was seen 9 days ago for follow-up regarding COPD on oxygen. Hx: She takes Dupixent for eczema. Dx COPD 5 years ago. MARC. At last visit, she was having symptomatic afib with RVR, new diagnosis. Was sent to the ER where she stayed for 5 days. She was given steroids and nebs for COPD, Lasix for CHF (BNP 5K), and started cardiac meds for her afib. She underwent a CV which was successful. She will see manager gaming in follow-up on Feb 19. Today, she reports she is doing better since discharge. Her edema is improving. Dyspnea is better. She has been more compliant with her oxygen and Wixela inhaler. She has been checking her HR and reports it has been bouncing around from 90s-140s. She may be back in afib. She reports return of right side pains on her breast. Her granddgt brought up patient's history of sleep apnea of which I was unaware of. Looking in previous EMR, she had sleep testing done back in 2009, noted below. This showed mild sleep apnea. She used CPAP for a couple years but had issues with mask fitting so then she stopped using it. Kanchan has been more anxious and depression. She is interested in medication. Plan: Continue Wixela 100 b.i.d. requires 1 L at rest and with activity and sleep. Split night sleep study was ordered. 03/26/2024: Patient presented to the emergency room after ground level far. She lost her balance and had a chair. Pain in the right back and developed shortness of breath. Supposed to be on anticoagulation for AFib but ran out of [facility] [place] [facility] 4 days ago. Blood pressure 131/78, heart rate 108, respirations 24, saturations 100 on 15 L non-rebreather. White blood cell count 14.9, creatinine 0.88. Eosinophils 2.5%. Chest x-ray revealed a right pneumothorax and Needle decompression was performed with significant dickerson of air. A 16 [place] chest tube was placed without complications. CT scan showed a posterior right rib fracture. required 15 L nasal cannula 03/29/2024: Chest tube was removed. 7 L nasal cannula saturation 94%. BNP 3850. 03/30/2024: She denied shortness of breath or chest pain. On 6 L nasal cannula saturations 92% 03/31/2024: Feeling better, on 6 L nasal cannula, legs are more swollen. 6 L nasal cannula saturation 94% 04/01/2024: Dyspnea with minimal exertion. 6 L nasal cannula saturations 91%. ABG on 6 L nasal cannula 7.42/48/62 04/02/2024: Dyspnea is improving. 6 L nasal cannula with satuations 96%. BNP 4390 Chest x-ray with small bilateral pleural effusions with bibasilar atelectasis or pneumonia. Cardiomegaly. 04/03/2024: The patient tells me she is now breathing back at her baseline. She does have more cough than usual but this is dry with no hemoptysis. She has no rest shortness of breath but some dyspnea on exertion. Currently the patient has no pain but a little bit of pain with a deep breath. When I enter the room the patient was on 6 L nasal cannula saturations 98%. I sequentially decreased her to 1 L and after 11 minutes her saturation on 1 L was 91%. afebrile. White blood cell count 7.1, creatinine 0.71. weight is 96.9 kg with an admission weight of 90.9 kg. output has not been measured. 04/04/24: patient tells me she is breathing at her baseline. Her cough is present but less. She denies hemoptysis or phlegm production. Patient is on 2 L nasal cannula in bed with saturations 90%. her weight is 96.4%. Patient had an overnight oximetry on 1 L nasal cannula with recording duration 6 hours and 23 minutes. Average saturation is 89%. Low saturation 77%. Time with saturation less than or equal to 88% was 78 minutes. Oxygen desaturation index 1.5. She tolerated trelegy this morning. 04/05/24: Overall patient tells me she is breathing at her baseline. She denies cough, phlegm or hemoptysis. She slept well. Creatinine is 0.61. Her weight today is 100.5. BNP has improved from 4390 on 04/02/2024 to 1150 today. Overnight oximetry on 3 L nasal cannula with recording duration of 6 hours and 31 minutes. Average saturation 91%. Low saturation 78%. Time with saturation less than or equal to 88% was 20 minutes, oxygen desaturation index 1.6. DATA: 01/23/24: EVY Summary 1. Left ventricle is normal size and systolic function. 2. Right ventricle is normal size and systolic function. 3. The left atrium is dilated. 4. The right atrium is dilated. 5. The left atrial appendage velocity is 53 cm/s. There is no thrombus. 6. The atrial septum is visually intact with no color Doppler evidence of shunt. Echo 01/21/24 - Summary 1. Left ventricular chamber dimension is normal. 2. Left ventricular systolic function is normal, estimated at 60-65%. 3. There is mildly increased left ventricular wall thickness. 4. The left ventricular diastolic function is indeterminate. 5. Right ventricular chamber dimension is mildly enlarged. 6. Left atrial chamber dimension is severely enlarged. 7. Right atrial chamber dimension is severely enlarged. 8. There is mild mitral valve regurgitation. 9. There is mild to moderate tricuspid valve regurgitation. 10. Mild pulmonary hypertension, estimated pulmonary arterial systolic pressure is 42 mmHg. 11. There is mild pulmonic regurgitation. 12. The aortic root size at the sinus of Valsalva is mildly dilated. 13. Dilated inferior vena cava with <50% collapse upon inspiration consistent with elevated right atrial pressure, 15 mmHg. Right Ventricle Right ventricular chamber dimension is mildly enlarged. Right ventricular systolic function is normal. Left Atria Left atrial chamber dimension is severely enlarged. Right Atria Right atrial chamber dimension is severely enlarged. Atrial Septum Suspected patent foramen ovale visualized by color flow imaging. EF 60-65%, mild pulmHTN RVSP 42mmHg. Home O2 Eval 11/25/23 - requires 1L rest and with activity. Chest CT 09/25/23 - The lungs are clear. No pulmonary nodules or infiltrates are noted. Mild emphysema. Home O2 Eval 08/23/21 - requires 1L O2 with activity. PFT 10/06/18 mild obstructive ventilatory impairment, severe small airways pattern. Mild hyperinflation, severe air trapping, severe increase in airway resistance, moderate diffusion impairment. No bronchodilator given. 6mw mild desaturation to 90%. PSG 09/27/09 - mild MARC AHI 7.2 CPAP titration 10/10/09 - inadequate titration, recommend repeat titration CPAP Titration 10/21/09 - recommend CPAP [id number]. Review of Systems Constitutional: Constitutional: Reports no additional constitutional complaints Eyes: Eyes: Reports no additional eye complaints ENT: Reports system reviewed and no additional complaints, except as documented Cardiovascular: Cardiovascular: Reports no additional cardiovascular complaints Respiratory: Respiratory: Reports no additional respiratory complaints Gastrointestinal: Gastrointestinal: Reports no additional gastrointestinal complaints Musculoskeletal: Musculoskeletal: Reports no additional musculoskeletal complaints Neurologic: Reports system reviewed and no additional complaints, except as documented Psychiatric: Psychiatric: Reports no additional psychiatric complaints Endocrine: Endocrine: Reports no additional endocrine complaints Hematologic/Lymphatic: Hematologic/Lymphatic: Reports no additional hematologic/lymphatic complaints Allergic/Immunologic: Allergic/Immunologic: Reports no additional allergic/immunologic complaints Exam Const: General: cooperative, healthy appearing and comfortable Orientation/consciousness: oriented to person, oriented to place and oriented to time HENMT: Head: normal to inspection Ears: hearing grossly normal bilaterally Eyes: General: appearance normal, both eyes and all related structures Neck: Neck: normal visual inspection Chest: Chest palpation & inspection: normal inspection of the chest Resp: Effort & Inspection: normal respiratory effort and able to speak in complete sentences Auscultation: crackles, no rales, no rhonchi, no wheezes and diminished lung sounds Other: Bibasilar crackles. No wheezes. Cardio: Jugular venous distension: no JVD GI: Inspection: normal to inspection Skin: General skin exam: normal color Neuro: General: oriented to person, oriented to place and oriented to time Extrem: General: normal to inspection and edema Psych: Appearance: grossly normal Objective Data Vital Signs Vital Signs: Vital Signs - 24 hr 04/04/24 14:00 04/04/24 20:00 04/04/24 21:59 Temperature 36.7 C 36.4 C L Pulse Rate 107 H 115 H Respiratory Rate 18 18 Blood Pressure 110/62 127/86 Pulse Oximetry 92 91 91 Oxygen Delivery Nasal Cannula Oxygen Flow Rate 3 04/05/24 06:00 04/05/24 08:17 04/05/24 09:26 Temperature 36.2 C L Pulse Rate 106 H 105 H Respiratory Rate 18 20 Blood Pressure 110/73 Pulse Oximetry 92 Oxygen Delivery Oxygen Flow Rate 04/05/24 09:29 Temperature Pulse Rate 105 H Respiratory Rate Blood Pressure Pulse Oximetry Oxygen Delivery Oxygen Flow Rate Intake/Output Intake/Output: Intake & Output 04/02/24 04/03/24 04/04/24 04/05/24 23:59 23:59 23:59 23:59 Intake Total 1782 1150 1020 Output Total 0 Balance 1782 1150 1020 Meds/Results Medications: Active Medications Generic Name Dose Route Start Last Admin Trade Name Freq PRN Reason Stop Dose Admin Acetaminophen 1,000 mg 03/28/24 09:37 03/29/24 20:46 Acetaminophen 500 Mg Tablet PO 1,000 mg Q6H PRN Administration Mild Pain (1-3) or Fever Hydrocodone Bitart/Acetaminophen 1 tab 03/28/24 09:33 04/05/24 00:01 Hydrocodone/Acetaminophen (*Crx) 5-325 Mg Tablet PO 1 tab Q4H PRN Administration Pain Rated 4-6 Albuterol 2.5 mg 04/01/24 10:57 Albuterol Sulfate Neb 2.5 Mg/3 Ml Inh INHALATION Q4HRT PRN Shortness Of Breath Alprazolam 0.5 mg 04/03/24 15:14 04/05/24 04:01 Alprazolam (*Crx) 0.5 Mg Tablet PO 0.5 mg TID PRN Administration Anxiety Amiodarone HCl 200 mg 03/27/24 09:00 04/05/24 09:29 Amiodarone Hcl 200 Mg Tablet PO 200 mg DAILY MIGUEL Administration Amlodipine Besylate 5 mg 03/27/24 09:00 04/05/24 09:30 Amlodipine Besylate 5 Mg Tablet BY MOUTH 5 mg DAILY MIGUEL Administration Ascorbic Acid 1,000 mg 03/27/24 09:00 04/05/24 09:29 Ascorbic Acid 500 Mg Tablet PO 1,000 mg QAM MIGUEL Administration Atorvastatin Calcium 40 mg 03/27/24 09:00 04/05/24 09:30 Atorvastatin 40 Mg Tablet PO 40 mg DAILY MIGUEL Administration Buspirone HCl 5 mg 03/27/24 09:00 04/05/24 09:29 Buspirone Hcl 5 Mg Tablet PO 5 mg BID MIGUEL Administration Calcium Carbonate 500 mg 03/27/24 09:00 04/05/24 09:30 Calcium Carbonate (Oscal) 500 Mg Tablet PO 500 mg QAM MIGUEL Administration Fluticasone/Umeclidinium/Vilanterol 1 puff 04/04/24 08:00 04/05/24 08:17 Fluticasone/Umeclidin/Vilanter 100-62.5-25 Mcg Ellipta INHALATION 1 puff DAILYRT MIGUEL Administration Furosemide 20 mg 04/02/24 09:00 04/05/24 09:54 Furosemide Inj 40 Mg/4 Ml Vial IV PUSH 20 mg BID MIGUEL Administration Hydromorphone HCl 0.5 mg 03/28/24 09:33 03/31/24 06:33 Hydromorphone Hcl Inj (*Crx) 1 Mg/Ml Syr IV PUSH 0.5 mg Q3H PRN Administration Pain Rated 7-10 Levothyroxine Sodium 75 mcg 03/28/24 06:30 04/05/24 06:29 Levothyroxine Sodium 75 Mcg Tablet BY MOUTH 75 mcg DAILY@0630 MIGUEL Administration Lidocaine 1 patch 03/30/24 09:00 04/05/24 09:30 Lidocaine 5% Patch TRANSDERM 1 patch DAILY MIGUEL Administration Metoprolol Succinate 50 mg 03/27/24 09:00 04/05/24 09:26 Metoprolol Succinate Ext Rel 50 Mg Tabcr PO 50 mg QAM MIGUEL Administration * Home Med * 300 mg 04/14/24 09:00 Dupilumab [Dupixent SUB-Q 05/14/24 08:59 Syringe] 300 Mg/2 Ml [id number] [facility] Syringe Oxycodone HCl 5 mg 03/28/24 09:33 04/04/24 20:43 Oxycodone Hcl (*Crx) 5 Mg Tab Ir PO 5 mg Q4H PRN Administration Pain Rated 7-10 Perflutren Lipid Microsphere 0 ml 04/03/24 15:20 Perflutren Lipid Microspheres 1.5 Ml Vial Diluted To 10 Ml Total Volume IV PUSH 04/06/24 15:20 ONCE PRN adequate visualization Protocol Potassium Chloride 20 meq 03/27/24 09:00 03/30/24 18:02 Potassium Chloride 20 Meq Er Tablet PO 20 meq BID MIGUEL Administration Senna/Docusate Sodium 2 tab 03/28/24 22:25 04/05/24 09:29 Senna/Docusate Sodium Tablet PO 2 tab BID MIGUEL Administration Sodium Chloride 1 gm 04/05/24 09:05 04/05/24 09:26 Sodium Chloride 1 Gm Tablet PO 1 gm TID MIGUEL Administration Warfarin Sodium 3 mg 03/31/24 13:46 Warfarin (*Pbkc) 3 Mg Tablet PO EVENING [facility] Radiology Results: ITS Impressions Chest CT 03/26/24 21:50 IMPRESSION: Redemonstration of a right-sided pneumothorax, approximately 15-20% in size with a right posterior medial fifth rib fracture. Head CT 03/26/24 23:09 Impression: No acute intracranial hemorrhage or suspicious mass effect. Cervical Spine CT 03/26/24 23:13 Impression: Straightening and slight reversal of the normal curvature of the cervical spine, likely muscular in origin. Significant degenerative disease, without acute fracture. Chest CTA 03/29/24 08:00 IMPRESSION: 1. Right chest tube in expected position with small right pleural effusion but no pneumothorax. 2. Mild emphysema with mild dependent atelectasis in both lungs. 3. Cardiomegaly with biatrial enlargement. 4. Enlargement of the central pulmonary arteries consistent with pulmonary arterial hypertension. 5. Recent-appearing nondisplaced fractures of the posterior right fifth and sixth ribs. Chest X-Ray 04/05/24 09:50 IMPRESSION: Mild pulmonary vascular congestion with a large right and small sided pleural effusion. Labs Labs: Laboratory Results - last 24 hr 04/04/24 04/05/24 15:03 07:19 WBC 7.8 6.3 RBC 4.13 L 3.84 L Hgb 12.2 11.2 L Hct 37.3 35.6 L MCV 90.3 92.7 MCH 29.5 29.2 MCHC 32.7 31.5 L RDW 14.2 14.2 Plt Count 252 223 MPV 10.3 11.4 H Immature Gran % (Auto) 1.3 H 1.3 H Neut % (Auto) 75.2 H 67.5 Lymph % (Auto) 6.1 L 9.7 L Terrell % (Auto) 12.0 H 14.8 H Eos % (Auto) 4.9 H 6.2 H Baso % (Auto) 0.5 0.5 Lymph # (Auto) 0.48 L 0.61 L Terrell # (Auto) 0.9 H 0.9 H Eos # (Auto) 0.4 H 0.4 H Baso # (Auto) 0.0 0.0 Abs Immat Gran (auto) 0.10 H 0.08 H Absolute Neuts (auto) 5.9 4.2 Absolute Nucleated RBC 0.000 0.000 Nucleated RBC % 0.0 0.0 PT 22.3 H INR 1.9 Sodium 130 L 130 L Potassium 3.7 3.7 Chloride 89 L 91 L Carbon Dioxide 34 H 32 H Anion Gap 7 7 BUN 19 H 18 H Creatinine 0.74 0.61 L Estim Creat Clear Calc 51 63 Estimated GFR > 60 > 60 Glucose 98 85 Calcium 8.6 8.1 L Magnesium 1.9 1.9 NT-Pro-B Natriuret Pep 1150 H
--- NOTE | 2024-04-05 19:00 | PC.NURSE ---
On 04/06/24, the DIESEL PILE DRIVER OPERATOR, Sue Murdock, provided care and completed [facility] documentation on this patient. I have reviewed the DIESEL PILE DRIVER OPERATOR's documentation and agree with the findings.
[2024-04-05] MEDS: oxyCODONE HCL (*CRX) 5 MG TAB IR PO (21:58)
[2024-04-06] VITALS (8 sets, daily range): BP systolic 107–133; BP diastolic 67–80; PULSE 68–113; RESP 18–20; TEMP 36.3–36.9; O2SAT 90–94
[2024-04-06] MEDS: oxyCODONE HCL (*CRX) 5 MG TAB IR PO ×2 (05:25→20:16)
[2024-04-06] MEDS: LEVOTHYROXINE SODIUM 75 MCG TABLET BY MOUTH (05:26)
[2024-04-06] MEDS: FLUTICASONE/UMECLIDIN/VILANTER 100-62.5-25 MCG ELLIPTA 1 PUFF INHALATION (08:07)
[2024-04-06] MEDS: AMIODARONE HCL 200 MG TABLET PO (08:14)
[2024-04-06] MEDS: busPIRone HCL 5 MG TABLET PO ×2 (08:14→16:26)
[2024-04-06 08:17] LABS: Basophils Percent Auto 0.6 % (0.2-1.2); Eosinophils Absolute Auto 0.4 K/mm3 (0-0.3); Eosinophils Percent Auto 5.3 % (0-4.4); Hematocrit 35.3 % (37.0-47.0); Hemoglobin 11.4 g/dL (12.0-15.0); Immature Granulocyte Absolute 0.11 K/mm3 (0.00-0.031); Immature Granulocyte Percent A 1.6 % (0-0.5); Lymphocytes Absolute Auto 0.59 K/mm3 (0.9-3.2); Lymphocytes Percent Auto 8.7 % (18.3-44.2); Mean Corpuscular HGB Conc 32.3 g/dl (32-36); Mean Corpuscular Hemoglobin 29.8 pg (26-34); Mean Corpuscular Volume 92.2 fl (80-100); Mean Platelet Volume 10.8 fl (7.4-10.4); Neutrophils Absolute Auto 4.7 K/mm3 (1.3-6.7); Neutrophils Percent Auto 69.8 % (45.5-73.1); Platelet Count Result 241 k/mm3 (150-375); Red Blood Count 3.83 M/mm3 (4.2-5.4); Red Cell Distribution Width 14.1 % (11.5-14.5); White Blood Count 6.8 K/mm3 (4.5-10.0)
[2024-04-06] MEDS: FUROSEMIDE INJ 40 MG/4 ML VIAL 20 MG IV PUSH ×2 (08:17→16:26)
[2024-04-06] MEDS: SENNA/DOCUSATE SODIUM TABLET 2 TAB PO ×2 (08:17→16:26)
[2024-04-06] MEDS: ASCORBIC ACID 500 MG TABLET 1000 MG PO (08:17)
[2024-04-06] MEDS: METOPROLOL SUCCINATE EXT REL 50 MG TABCR PO (08:17)
[2024-04-06] MEDS: SODIUM CHLORIDE 1 GM TABLET PO ×3 (08:17→16:27)
[2024-04-06] MEDS: CALCIUM CARBONATE (OSCAL) 500 MG TABLET PO (08:17)
[2024-04-06] MEDS: amLODIPine BESYLATE 5 MG TABLET BY MOUTH (08:17)
[2024-04-06] MEDS: LIDOCAINE 5% PATCH 1 PATCH TRANSDERM (08:18)
[2024-04-06] MEDS: ATORVASTATIN 40 MG TABLET PO (08:18)
[2024-04-06 08:24] LABS: Anion Gap 7 mmol/L (4-12); Blood Urea Nitrogen 23 mg/dL (7-17); Calcium 8.3 mg/dL (8.4-10.2); Carbon Dioxide 31 mmol/L (22-30); Chloride 91 mmol/L (98-107); Estimated CRCL calculation 54 ml/min; Estimated Glomerular Filt Rate > 60; Glucose 83 mg/dL (65-110); Sodium 129 mmol/L (137-145)
--- NOTE | 2024-04-06 09:18 | P.PNIM_ITS ---
Progress Note: A&P Assessment and Plan (1) Pneumothorax: Code(s): J93.9 - Pneumothorax, unspecified Status: Acute (2) MARC (obstructive sleep apnea): Code(s): G47.33 - Obstructive sleep apnea (adult) (pediatric) Status: Acute (3) Chronic respiratory failure: Qualifiers: Respiratory failure complication: hypoxia Qualified Code(s): J96.11 - Chronic respiratory failure with hypoxia Code(s): J96.10 - Chronic respiratory failure, unspecified whether with hypoxia or hypercapnia Status: Acute (4) COPD (chronic obstructive pulmonary disease): Qualifiers: COPD type: unspecified COPD Qualified Code(s): J44.9 - Chronic obstructive pulmonary disease, unspecified Code(s): J44.9 - Chronic obstructive pulmonary disease, unspecified Status: Acute (5) Closed rib fracture: Code(s): S22.39XA - Fracture of one rib, unspecified side, initial encounter for closed fracture Status: Acute (6) GERD (gastroesophageal reflux disease): Qualifiers: Esophagitis presence: without esophagitis Qualified Code(s): K21.9 - Gastro-esophageal reflux disease without esophagitis Code(s): K21.9 - Gastro-esophageal reflux disease without esophagitis Status: Acute (7) Hypothyroidism: Qualifiers: Hypothyroidism type: acquired Qualified Code(s): E03.9 - Hypothyroidism, unspecified Code(s): E03.9 - Hypothyroidism, unspecified Status: Acute (8) Hyperlipidemia: Qualifiers: Hyperlipidemia type: elevated lipoprotein(a) Qualified Code(s): E78.41 - Elevated Lipoprotein(a) Code(s): E78.5 - Hyperlipidemia, unspecified Status: Acute (9) Afib: Qualifiers: Atrial fibrillation type: unspecified Qualified Code(s): I48.91 - U nspecified atrial fibrillation Code(s): I48.91 - Unspecified atrial fibrillation Status: Acute (10) CHF (congestive heart failure): Qualifiers: Heart failure chronicity: unspecified Heart failure type: unspecified Qualified Code(s): I50.9 - Heart failure, unspecified Code(s): I50.9 - Heart failure, unspecified Status: Acute (11) Hypertension: Qualifiers: Hypertension type: primary hypertension Qualified Code(s): I10 - Essential (primary) hypertension Code(s): I10 - Essential (primary) hypertension Status: Acute Plan This is an 88-year-old female presented to the ER after ground level fall. She was getting something out of a cabinet when she lost her balance and fell backwards hitting a chair. She had pain in her right back. She then developed shortness of breath. She came to the ER to be evaluated. She denies head trauma loss of consciousness. She has been ambulatory since the incident. Patient is supposed to be on anticoagulation for atrial fibrillation but ran out of her Eliquis 4 days ago. 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 CT chest performed which showed right-sided pneumothorax with subcutaneous air along the right anterolateral chest wall and posterior medial chest wall. Chest tube was placed, consulted general surgeon for management Chest tube has now been removed 03/29/2024.has right chest wall pain at the back COPD acute on chronic chronic hypoxic respiratory failure on home oxygen with acute exacerbation 03/29/2024. IV Lasix received overnight. CTA Negative for PE or pneumonia. Patient needs high-flow oxygen since admission Start DuoNeb scheduled albuterol nebulizer p.r.n., ABG: Hypercapnic and hypoxemic respiratory failure Diastolic heart failure with exacerbation. Echocardiogram showed EF of 60-65%, mild pulmonary hypertension, diastolic dysfunction is indeterminate Received IV Lasix On Lasix 40 mg daily p.o. Patient is fluid overloaded Change to Lasix 20 mg b.i.d. IV push and give Lasix 40 mg ivp once 04/01 X-ray showed cardiomegaly, increased interstitial change, increase to 40mg bid 04/02 Follow-up input output BNP: 4390 on 04/02 Acute on chronic respiratory failure Patient need 1-2 L oxygen and home Now patient has worsening dyspnea Likely resulting from COPD, chest restriction and fluid overload ABG showed hypercapnic and hypoxemic respiratory failure Start bronchodilators, and start IV Lasix 04/01 X-ray showed cardiomegaly atelectasis Continue O2 therapy Provide incentive spirometry Patient still needs 6 L oxygen per nasal cannular 04/03 Consult department assistant for evaluation treatment Hypoxemia improving Suspecting MARC, pending sleep study Atrial fibrillation on amiodarone and metoprolol And warfarin 3 mg daily INR in therapeutic range Hyponatremia Likely secondary to poor oral intake and IV Lasix Provide sodium chloride 1 g b.i.d. p.o. 04/02 Increase sodium chloride to 1 g t.i.d. p.o. 04/05 Hypothyroidism On Synthroid 75 mcg daily p.o. Hypertension Amlodipine 5 mg daily p.o. Blood pressure is controlled Hyperlipidemia On Lipitor 40 mg daily p.o. GERD Varicose vein Osteoarthritis Anticoagulation with Eliquis DVT prophylaxis currently on warfarin INR Code status full code Subjective Date/time seen: 04/06/24 09:18 Interval history: I saw examined the patient today. Patient does have dyspnea at rest, exercise tolerance increase. Patient needs O2 therapy via nasal cannular. Right back chest pain improved. Suspect MARC, pending sleeping study. He is on 4L O2 Exam Narrative: GENERAL: Pleasant, in no acute distress. Well-nourished. - EYES: EOMI. Anicteric. - HENT: Moist mucous membranes. - LUNGS: Crackles bilateral base, reduc ing. No wheezing, rhonchi, at right chest pain - CARDIOVASCULAR: Regular rate and rhyth m. No murmur. No JVD. - ABDOMEN: Soft, non-tender and non-dist ended. No palpable masses. - EXTREMITIES: No edema. Peripheral puls es 2+. Non-tender. - NEUROLOGIC: No focal neurological defi cits. CN II-XII grossly intact. - PSYCHIATRIC: Awake, Alert and oriented x 3. Appropriate mood and affect. - SKIN: No rashes or lesions. Warm. - LYMPH: No cervical lymphadenopathy. Objective Data Vital Signs Vital Signs: Vital Signs - 24 hr 04/05/24 09:26 04/05/24 09:29 04/05/24 09:30 Temperature Pulse Rate 105 H 105 H Respiratory Rate Blood Pressure Pulse Oximetry 92 Oxygen Delivery Nasal Cannula Oxygen Flow Rate 1 04/05/24 14:00 04/05/24 20:00 04/05/24 22:00 Temperature 97.9 F 97.5 F L Pulse Rate 103 H 91 Respiratory Rate 18 18 Blood Pressure 106/71 118/70 Pulse Oximetry 92 95 87 L Oxygen Delivery Nasal Cannula Oxygen Flow Rate 1 04/05/24 22:30 04/06/24 05:15 04/06/24 08:07 Temperature 97.3 F L Pulse Rate 110 H 68 Respiratory Rate 18 20 Blood Pressure 133/80 Pulse Oximetry 95 90 92 Oxygen Delivery Nasal Cannula Nasal Cannula Oxygen Flow Rate 4 4 04/06/24 08:07 04/06/24 08:14 04/06/24 08:17 Temperature Pulse Rate 68 110 H 110 H Respiratory Rate 20 Blood Pressure Pulse Oximetry Oxygen Delivery Oxygen Flow Rate Intake/Output Intake/Output: Intake & Output 04/03/24 04/04/24 04/05/24 04/06/24 23:59 23:59 23:59 23:59 Intake Total 1150 1020 236 100 Output Total 0 Balance 1150 1020 236 100 Meds/Results Medications: Active Medications Generic Name Dose Route Start Last Admin Trade Name Freq PRN Reason Stop Dose Admin Acetaminophen 1,000 mg 03/28/24 09:37 03/29/24 20:46 Acetaminophen 500 Mg Tablet PO 1,000 mg Q6H PRN Administration Mild Pain (1-3) or Fever Hydrocodone Bitart/Acetaminophen 1 tab 03/28/24 09:33 04/05/24 15:34 Hydrocodone/Acetaminophen (*Crx) 5-325 Mg Tablet PO 1 tab Q4H PRN Administration Pain Rated 4-6 Albuterol 2.5 mg 04/01/24 10:57 Albuterol Sulfate Neb 2.5 Mg/3 Ml Inh INHALATION Q4HRT PRN Shortness Of Breath Alprazolam 0.5 mg 04/03/24 15:14 04/05/24 21:58 Alprazolam (*Crx) 0.5 Mg Tablet PO 0.5 mg TID PRN Administration Anxiety Amiodarone HCl 200 mg 03/27/24 09:00 04/06/24 08:14 Amiodarone Hcl 200 Mg Tablet PO 200 mg DAILY MIGUEL Administration Amlodipine Besylate 5 mg 03/27/24 09:00 04/06/24 08:17 Amlodipine Besylate 5 Mg Tablet BY MOUTH 5 mg DAILY MIGUEL Administration Ascorbic Acid 1,000 mg 03/27/24 09:00 04/06/24 08:17 Ascorbic Acid 500 Mg Tablet PO 1,000 mg QAM MIGUEL Administration Atorvastatin Calcium 40 mg 03/27/24 09:00 04/06/24 08:18 Atorvastatin 40 Mg Tablet PO 40 mg DAILY MIGUEL Administration Buspirone HCl 5 mg 03/27/24 09:00 04/06/24 08:14 Buspirone Hcl 5 Mg Tablet PO 5 mg BID MIGUEL Administration Calcium Carbonate 500 mg 03/27/24 09:00 04/06/24 08:17 Calcium Carbonate (Oscal) 500 Mg Tablet PO 500 mg QAM MIGUEL Administration Fluticasone/Umeclidinium/Vilanterol 1 puff 04/04/24 08:00 04/06/24 08:07 Fluticasone/Umeclidin/Vilanter 100-62.5-25 Mcg Ellipta INHALATION 1 puff DAILYRT MIGUEL Administration Furosemide 20 mg 04/02/24 09:00 04/06/24 08:17 Furosemide Inj 40 Mg/4 Ml Vial IV PUSH 20 mg BID MIGUEL Administration Hydromorphone HCl 0.5 mg 03/28/24 09:33 03/31/24 06:33 Hydromorphone Hcl Inj (*Crx) 1 Mg/Ml Syr IV PUSH 0.5 mg Q3H PRN Administration Pain Rated 7-10 Levothyroxine Sodium 75 mcg 03/28/24 06:30 04/06/24 05:26 Levothyroxine Sodium 75 Mcg Tablet BY MOUTH 75 mcg DAILY@0630 MIGUEL Administration Lidocaine 1 patch 03/30/24 09:00 04/06/24 08:18 Lidocaine 5% Patch TRANSDERM 1 patch DAILY MIGUEL Administration Metoprolol Succinate 50 mg 03/27/24 09:00 04/06/24 08:17 Metoprolol Succinate Ext Rel 50 Mg Tabcr PO 50 mg QAM MIGUEL Administration * Home Med * 300 mg 04/14/24 09:00 Dupilumab [Dupixent SUB-Q 05/14/24 08:59 Syringe] 300 Mg/2 Ml [id number] IMGUEL Syringe Oxycodone HCl 5 mg 03/28/24 09:33 04/06/24 05:25 Oxycodone Hcl (*Crx) 5 Mg Tab Ir PO 5 mg Q4H PRN Administration Pain Rated 7-10 Perflutren Lipid Microsphere 0 ml 04/03/24 15:20 Perflutren Lipid Microspheres 1.5 Ml Vial Diluted To 10 Ml Total Volume IV PUSH 04/06/24 15:20 ONCE PRN adequate visualization Protocol Potassium Chloride 20 meq 03/27/24 09:00 03/30/24 18:02 Potassium Chloride 20 Meq Er Tablet PO 20 meq BID MIGUEL Administration Senna/Docusate Sodium 2 tab 03/28/24 22:25 04/06/24 08:17 Senna/Docusate Sodium Tablet PO 2 tab BID MIGUEL Administration Sodium Chloride 1 gm 04/05/24 09:05 04/06/24 08:17 Sodium Chloride 1 Gm Tablet PO 1 gm TID MIGUEL Administration Warfarin Sodium 3 mg 03/31/24 13:46 Warfarin (*Pbkc) 3 Mg Tablet PO EVENING [facility] Radiology Results: ITS Impressions Chest CT 03/26/24 21:50 IMPRESSION: Redemonstration of a right-sided pneumothorax, approximately 15-20% in size with a right posterior medial fifth rib fracture. Head CT 03/26/24 23:09 Impression: No acute intracranial hemorrhage or suspicious mass effect. Cervical Spine CT 03/26/24 23:13 Impression: Straightening and slight reversal of the normal curvature of the cervical spine, likely muscular in origin. Significant degenerative disease, without acute fracture. Chest CTA 03/29/24 08:00 IMPRESSION: 1. Right chest tube in expected position with small right pleural effusion but no pneumothorax. 2. Mild emphysema with mild dependent atelectasis in both lungs. 3. Cardiomegaly with biatrial enlargement. 4. Enlargement of the central pulmonary arteries consistent with pulmonary arterial hypertension. 5. Recent-appearing nondisplaced fractures of the posterior right fifth and sixth ribs. Chest X-Ray 04/05/24 09:50 IMPRESSION: Mild pulmonary vascular congestion with a large right and small sided pleural effusion. Labs Labs: Laboratory Results - last 24 hr 04/05/24 04/06/24 07:19 07:40 WBC 6.3 6.8 RBC 3.84 L 3.83 L Hgb 11.2 L 11.4 L Hct 35.6 L 35.3 L MCV 92.7 92.2 MCH 29.2 29.8 MCHC 31.5 L 32.3 RDW 14.2 14.1 Plt Count 223 241 MPV 11.4 H 10.8 H Immature Gran % (Auto) 1.3 H 1.6 H Neut % (Auto) 67.5 69.8 Lymph % (Auto) 9.7 L 8.7 L [place] % (Auto) 14.8 H 14.0 H Eos % (Auto) 6.2 H 5.3 H Baso % (Auto) 0.5 0.6 Lymph # (Auto) 0.61 L 0.59 L [place] # (Auto) 0.9 H 1.0 H Eos # (Auto) 0.4 H 0.4 H Baso # (Auto) 0.0 0.0 Abs Immat Gran (auto) 0.08 H 0.11 H Absolute Neuts (auto) 4.2 4.7 Absolute Nucleated RBC 0.000 0.000 Nucleated RBC % 0.0 0.0 Sodium 129 L Potassium 4.0 Chloride 91 L Carbon Dioxide 31 H Anion Gap 7 BUN 23 H Creatinine 0.73 Estim Creat Clear Calc 54 Estimated GFR > 60 Glucose 83 Calcium 8.3 L
[2024-04-06 09:37] LABS: INR 1.5; Prothrombin Time 18.3 Seconds (11.1-14.7)
--- NOTE | 2024-04-06 10:12 | PM.PNPUL ---
Progress Note: A&P Assessment and Plan (1) COPD (chronic obstructive pulmonary disease): Qualifiers: COPD type: unspecified COPD Qualified Code(s): J44.9 - Chronic obstructive pulmonary disease, unspecified Code(s): J44.9 - Chronic obstructive pulmonary disease, unspecified Status: Acute (2) Hypoxemia: Code(s): R09.02 - Hypoxemia Status: Acute (3) Chronic respiratory failure: Qualifiers: Respiratory failure complication: hypoxia Qualified Code(s): J96.11 - Chronic respiratory failure with hypoxia Code(s): J96.10 - Chronic respiratory failure, unspecified whether with hypoxia or hypercapnia Status: Acute Assessment and Plan: This 88-year-old female patient with a history of mild COPD, chronically on maintenance bronchodilators, and chronic hypoxemia managed with supplemental oxygen, has untreated sleep apnea and recent atrial fibrillation for which she is receiving treatment, including anticoagulants. She presented with shortness of breath related to a pneumothorax. Despite the resolution of the pneumothorax, she continues to experience shortness of breath related to congestive heart failure. On physical examination, she exhibits bilateral rales, jugular venous distension (JVD), and lower extremity edema despite diuresis, indicating an overall positive fluid balance. The last ApneaLink study showed mild oxyhemoglobin desaturation, with oxyhemoglobin saturation below 88% for approximately 4% of the sleep time, marking a significant improvement from the previous sleep study when she was tested on a lower oxygen flow. Plan: We need to optimize diuretic treatment for congestive heart failure. Consideration may be given to using nocturnal generic BiPAP to address the persistent nocturnal hypoxemia. It is important to note that the patient was intolerant of CPAP treatment for sleep apnea in the past. She was scheduled for a repeat sleep study, which will need to be conducted after discharge from the hospital. We will continue to follow the patient along with you. (4) Acute on chronic hypoxic respiratory failure: Code(s): J96.21 - Acute and chronic respiratory failure with hypoxia Status: Acute (5) MARC (obstructive sleep apnea): Code(s): G47.33 - Obstructive sleep apnea (adult) (pediatric) Status: Acute (6) CHF (congestive heart failure): Qualifiers: Heart failure type: unspecified Heart failure chronicity: unspecified Qualified Code(s): I50.9 - Heart failure, unspecified Code(s): I50.9 - Heart failure, unspecified Status: Acute (7) Afib: Qualifiers: Atrial fibrillation type: unspecified Qualified Code(s): I48.91 - Unspecified atrial fibrillation Code(s): I48.91 - Unspecified atrial fibrillation Status: Acute Subjective Date/time seen: 04/06/24 10:12 Interval history: This 88-year-old female patient has a history of mild COPD and chronic hypoxemia, for which she uses supplemental oxygen at home. She also has untreated sleep apnea and recently presented with shortness of breath due to a new pneumothorax. Additionally, she has a history of atrial fibrillation and is under the care of Cardiology Services. After undergoing chest tube drainage for the pneumothorax and subsequent removal of the chest tube, her gas exchange improved. However, she continues to require supplemental oxygen due to nocturnal hypoxemia, as her most recent apnea link study showed mild oxyhemoglobin desaturation while on 4 liters per minute of oxygen. The patient continues to experience shortness of breath when in a supine position and sleeps in a reclining position at home due to chronic shortness of breath. She is currently being treated for congestive heart failure, with the latest chest X-ray indicating mild pulmonary congestion and small to moderate bilateral pleural effusions. Regarding her COPD, the last pulmonary function test in 2019 indicated mild obstructive airway disease with severe small airway pattern, mild hyperinflation, severe air trapping, and moderately reduced lung diffusion capacity. The actual pulmonary function test measurements were not available for review. Review of Systems Review of Systems: All systems reviewed & are unremarkable except as noted in HPI and below (HPI and below) Exam Narrative: GENERAL APPEARANCE: Well developed, well nourished, alert and cooperative, and appears to be in mild respiratory distress while on supplemental oxygen SKIN: Inspection of the skin reveals no rashes, ulcerations or petechiae. HEENT: Sclerae anicteric and conjunctivae pink and moist. Extraocular movements were intact and pupils were equal, round. Dry oral mucosa. NECK: Supple. JVD present. There was no thyroid enlargement, and no tenderness, or masses were felt. LUNGS: Crackles bilaterally no wheezing CARDIAC: There was a regular rate and rhythm without any murmurs, gallops, rubs. ABDOMEN: Soft and nontender with normal bowel sounds. There was no organomegaly. LYMPH NODES: No lymphadenopathy was appreciated in the neck, axillae or groin. EXTREMITIES: No cyanosis, clubbing. 2+ edema. NEUROLOGIC: Alert. Normal affect. Objective Data Vital Signs Vital Signs: Vital Signs - 24 hr 04/05/24 14:00 04/05/24 20:00 04/05/24 22:00 Temperature 36.6 C 36.4 C L Pulse Rate 103 H 91 Respiratory Rate 18 18 Blood Pressure 106/71 118/70 Pulse Oximetry 92 95 87 L Oxygen Delivery Nasal Cannula Oxygen Flow Rate 1 04/05/24 22:30 04/06/24 05:15 04/06/24 08:07 Temperature 36.3 C L Pulse Rate 110 H 68 Respiratory Rate 18 20 Blood Pressure 133/80 Pulse Oximetry 95 90 92 Oxygen Delivery Nasal Cannula Nasal Cannula Oxygen Flow Rate 4 4 04/06/24 08:07 04/06/24 08:14 04/06/24 08:17 Temperature Pulse Rate 68 110 H 110 H Respiratory Rate 20 Blood Pressure Pulse Oximetry Oxygen Delivery Oxygen Flow Rate Intake/Output Intake/Output: Intake & Output 04/03/24 04/04/24 04/05/24 04/06/24 23:59 23:59 23:59 23:59 Intake Total 1150 1020 236 100 Output Total 0 Balance 1150 1020 236 100 Meds/Results Medications: Active Medications Generic Name Dose Route Start Last Admin Trade Name Freq PRN Reason Stop Dose Admin Acetaminophen 1,000 mg 03/28/24 09:37 03/29/24 20:46 Acetaminophen 500 Mg Tablet PO 1,000 mg Q6H PRN Administration Mild Pain (1-3) or Fever Hydrocodone Bitart/Acetaminophen 1 tab 03/28/24 09:33 04/05/24 15:34 Hydrocodone/Acetaminophen (*Crx) 5-325 Mg Tablet PO 1 tab Q4H PRN Administration Pain Rated 4-6 Albuterol 2.5 mg 04/01/24 10:57 Albuterol Sulfate Neb 2.5 Mg/3 Ml Inh INHALATION Q4HRT PRN Shortness Of Breath Alprazolam 0.5 mg 04/03/24 15:14 04/05/24 21:58 Alprazolam (*Crx) 0.5 Mg Tablet PO 0.5 mg TID PRN Administration Anxiety Amiodarone HCl 200 mg 03/27/24 09:00 04/06/24 08:14 Amiodarone Hcl 200 Mg Tablet PO 200 mg DAILY MIGUEL Administration Amlodipine Besylate 5 mg 03/27/24 09:00 04/06/24 08:17 Amlodipine Besylate 5 Mg Tablet BY MOUTH 5 mg DAILY MIGUEL Administration Ascorbic Acid 1,000 mg 03/27/24 09:00 04/06/24 08:17 Ascorbic Acid 500 Mg Tablet PO 1,000 mg QAM MIGUEL Administration Atorvastatin Calcium 40 mg 03/27/24 09:00 04/06/24 08:18 Atorvastatin 40 Mg Tablet PO 40 mg DAILY MIGUEL Administration Buspirone HCl 5 mg 03/27/24 09:00 04/06/24 08:14 Buspirone Hcl 5 Mg Tablet PO 5 mg BID MIGUEL Administration Calcium Carbonate 500 mg 03/27/24 09:00 04/06/24 08:17 Calcium Carbonate (Oscal) 500 Mg Tablet PO 500 mg QAM MIGUEL Administration Fluticasone/Umeclidinium/Vilanterol 1 puff 04/04/24 08:00 04/06/24 08:07 Fluticasone/Umeclidin/Vilanter 100-62.5-25 Mcg Ellipta INHALATION 1 puff DAILYRT MIGUEL Administration Furosemide 20 mg 04/02/24 09:00 04/06/24 08:17 Furosemide Inj 40 Mg/4 Ml Vial IV PUSH 20 mg BID MIGUEL Administration Hydromorphone HCl 0.5 mg 03/28/24 09:33 03/31/24 06:33 Hydromorphone Hcl Inj (*Crx) 1 Mg/Ml Syr IV PUSH 0.5 mg Q3H PRN Administration Pain Rated 7-10 Levothyroxine Sodium 75 mcg 03/28/24 06:30 04/06/24 05:26 Levothyroxine Sodium 75 Mcg Tablet BY MOUTH 75 mcg DAILY@0630 MIGUEL Administration Lidocaine 1 patch 03/30/24 09:00 04/06/24 08:18 Lidocaine 5% Patch TRANSDERM 1 patch DAILY MIGUEL Administration Metoprolol Succinate 50 mg 03/27/24 09:00 04/06/24 08:17 Metoprolol Succinate Ext Rel 50 Mg Tabcr PO 50 mg QAM MIGUEL Administration * Home Med * 300 mg 04/14/24 09:00 Dupilumab [Dupixent SUB-Q 05/14/24 08:59 Syringe] 300 Mg/2 Ml [id number] MIGUEL Syringe Oxycodone HCl 5 mg 03/28/24 09:33 04/06/24 05:25 Oxycodone Hcl (*Crx) 5 Mg Tab Ir PO 5 mg Q4H PRN Administration Pain Rated 7-10 Perflutren Lipid Microsphere 0 ml 04/03/24 15:20 Perflutren Lipid Microspheres 1.5 Ml Vial Diluted To 10 Ml Total Volume IV PUSH 04/06/24 15:20 ONCE PRN adequate visualization Protocol Potassium Chloride 20 meq 03/27/24 09:00 03/30/24 18:02 Potassium Chloride 20 Meq Er Tablet PO 20 meq BID MIGUEL Administration Senna/Docusate Sodium 2 tab 03/28/24 22:25 04/06/24 08:17 Senna/Docusate Sodium Tablet PO 2 tab BID MIGUEL Administration Sodium Chloride 1 gm 04/05/24 09:05 04/06/24 08:17 Sodium Chloride 1 Gm Tablet PO 1 gm TID MIGUEL Administration Warfarin Sodium 3 mg 03/31/24 13:46 Warfarin (*Pbkc) 3 Mg Tablet PO EVENING [facility] Radiology Results: ITS Impressions Chest CT 03/26/24 21:50 IMPRESSION: Redemonstration of a right-sided pneumothorax, approximately 15-20% in size with a right posterior medial fifth rib fracture. Head CT 03/26/24 23:09 Impression: No acute intracranial hemorrhage or suspicious mass effect. Cervical Spine CT 03/26/24 23:13 Impression: Straightening and slight reversal of the normal curvature of the cervical spine, likely muscular in origin. Significant degenerative disease, without acute fracture. Chest CTA 03/29/24 08:00 IMPRESSION: 1. Right chest tube in expected position with small right pleural effusion but no pneumothorax. 2. Mild emphysema with mild dependent atelectasis in both lungs. 3. Cardiomegaly with biatrial enlargement. 4. Enlargement of the central pulmonary arteries consistent with pulmonary arterial hypertension. 5. Recent-appearing nondisplaced fractures of the posterior right fifth and sixth ribs. Chest X-Ray 04/05/24 09:50 IMPRESSION: Mild pulmonary vascular congestion with a large right and small sided pleural effusion. Labs Labs: Laboratory Results - last 24 hr 04/06/24 07:40 WBC 6.8 RBC 3.83 L Hgb 11.4 L Hct 35.3 L MCV 92.2 MCH 29.8 MCHC 32.3 RDW 14.1 Plt Count 241 MPV 10.8 H Immature Gran % (Auto) 1.6 H Neut % (Auto) 69.8 Lymph % (Auto) 8.7 L [place] % (Auto) 14.0 H Eos % (Auto) 5.3 H Baso % (Auto) 0.6 Lymph # (Auto) 0.59 L [place] # (Auto) 1.0 H Eos # (Auto) 0.4 H Baso # (Auto) 0.0 Abs Immat Gran (auto) 0.11 H Absolute Neuts (auto) 4.7 Absolute Nucleated RBC 0.000 Nucleated RBC % 0.0 PT 18.3 H INR 1.5 Sodium 129 L Potassium 4.0 Chloride 91 L Carbon Dioxide 31 H Anion Gap 7 BUN 23 H Creatinine 0.73 Estim Creat Clear Calc 54 Estimated GFR > 60 Glucose 83 Calcium 8.3 L
[2024-04-06] MEDS: HYDROmorphone HCL INJ (*CRX) 1 MG/ML SYR 0.5 MG IV PUSH (23:50)
[2024-04-06] MEDS: ALPRAZolam (*CRX) 0.5 MG TABLET PO (23:50)
[2024-04-07] VITALS (8 sets, daily range): BP systolic 95–108; BP diastolic 60–70; PULSE 90–114; RESP 14–20; TEMP 36.7–37.2; O2SAT 89–93
[2024-04-07] MEDS: LEVOTHYROXINE SODIUM 75 MCG TABLET BY MOUTH (05:28)
[2024-04-07] MEDS: oxyCODONE HCL (*CRX) 5 MG TAB IR PO ×2 (05:38→09:40)
[2024-04-07 06:51] LABS: Basophils Percent Auto 0.5 % (0.2-1.2); Eosinophils Absolute Auto 0.3 K/mm3 (0-0.3); Eosinophils Percent Auto 4.7 % (0-4.4); Hematocrit 33.3 % (37.0-47.0); Hemoglobin 10.5 g/dL (12.0-15.0); Immature Granulocyte Absolute 0.09 K/mm3 (0.00-0.031); Immature Granulocyte Percent A 1.5 % (0-0.5); Lymphocytes Absolute Auto 0.53 K/mm3 (0.9-3.2); Lymphocytes Percent Auto 8.8 % (18.3-44.2); Mean Corpuscular HGB Conc 31.5 g/dl (32-36); Mean Corpuscular Hemoglobin 28.8 pg (26-34); Mean Corpuscular Volume 91.5 fl (80-100); Mean Platelet Volume 10.4 fl (7.4-10.4); Monocytes Percent Auto 15.8 % (2.6-8.5); Neutrophils Absolute Auto 4.1 K/mm3 (1.3-6.7); Neutrophils Percent Auto 68.7 % (45.5-73.1); Platelet Count Result 235 k/mm3 (150-375); Red Blood Count 3.64 M/mm3 (4.2-5.4); Red Cell Distribution Width 14.1 % (11.5-14.5)
[2024-04-07 07:00] LABS: Anion Gap 7 mmol/L (4-12); Blood Urea Nitrogen 23 mg/dL (7-17); Calcium 8.2 mg/dL (8.4-10.2); Carbon Dioxide 30 mmol/L (22-30); Chloride 93 mmol/L (98-107); Estimated CRCL calculation 48 ml/min; Estimated Glomerular Filt Rate > 60; Glucose 88 mg/dL (65-110); Sodium 130 mmol/L (137-145)
[2024-04-07] MEDS: FLUTICASONE/UMECLIDIN/VILANTER 100-62.5-25 MCG ELLIPTA 1 PUFF INHALATION (08:34)
[2024-04-07] MEDS: FUROSEMIDE INJ 40 MG/4 ML VIAL 20 MG IV PUSH ×2 (09:00→17:23)
[2024-04-07] MEDS: METOPROLOL SUCCINATE EXT REL 50 MG TABCR PO (09:01)
[2024-04-07] MEDS: SENNA/DOCUSATE SODIUM TABLET 2 TAB PO ×2 (09:03→17:23)
[2024-04-07] MEDS: SODIUM CHLORIDE 1 GM TABLET PO (09:03)
[2024-04-07] MEDS: amLODIPine BESYLATE 5 MG TABLET BY MOUTH (09:04)
[2024-04-07] MEDS: AMIODARONE HCL 200 MG TABLET PO (09:04)
[2024-04-07] MEDS: CALCIUM CARBONATE (OSCAL) 500 MG TABLET PO (09:04)
[2024-04-07] MEDS: ATORVASTATIN 40 MG TABLET PO (09:04)
[2024-04-07] MEDS: ASCORBIC ACID 500 MG TABLET 1000 MG PO (09:04)
[2024-04-07] MEDS: LIDOCAINE 5% PATCH 1 PATCH TRANSDERM (09:04)
[2024-04-07] MEDS: busPIRone HCL 5 MG TABLET PO ×2 (09:04→17:23)
--- NOTE | 2024-04-07 09:24 | P.PNPL_ITS ---
Progress Note: A&P Assessment and Plan (1) COPD (chronic obstructive pulmonary disease): Qualifiers: COPD type: unspecified COPD Qualified Code(s): J44.9 - Chronic obstructive pulmonary disease, unspecified Code(s): J44.9 - Chronic obstructive pulmonary disease, unspecified Status: Acute (2) Hypoxemia: Code(s): R09.02 - Hypoxemia Status: Acute (3) Chronic respiratory failure: Qualifiers: Respiratory failure complication: hypoxia Qualified Code(s): J96.11 - Chronic respiratory failure with hypoxia Code(s): J96.10 - Chronic respiratory failure, unspecified whether with hypoxia or hypercapnia Status: Acute Assessment and Plan: This 88-year-old female patient with a history of mild COPD, chronically on maintenance bronchodilators, and chronic hypoxemia managed with supplemental oxygen, has untreated sleep apnea and recent atrial fibrillation for which she is receiving treatment, including anticoagulants. She presented with shortness of breath related to a pneumothorax. Despite the resolution of the pneumothorax, she continues to experience shortness of breath related to congestive heart failure. On physical examination, she exhibits bilateral rales, jugular venous distension (JVD), and lower extremity edema despite diuresis, indicating an overall positive fluid balance. The last ApneaLink study showed mild oxyhemoglobin desaturation, with oxyhemoglobin saturation below 88% for approximately 4% of the sleep time, marking a significant improvement from the previous sleep study when she was tested on a lower oxygen flow. She continues to require supplemental oxygen but significantly less flow than before. On physical exam she continues to have wet lungs and decreased breath sounds at right base due to pleural effusion. Plan: Continue with diuretic treatment. Will add generic BiPAP 10/6 to possibly correct nocturnal hypoxemia. Hopefully the patient will tolerate BiPAP. Repeat apnea link on BiPAP 10/6 supplemental oxygen at 3 liters/minute. (4) Acute on chronic hypoxic respiratory failure: Code(s): J96.21 - Acute and chronic respiratory failure with hypoxia Status: Acute (5) MARC (obstructive sleep apnea): Code(s): G47.33 - Obstructive sleep apnea (adult) (pediatric) Status: Acute (6) CHF (congestive heart failure): Qualifiers: Heart failure type: unspecified Heart failure chronicity: unspecified Qualified Code(s): I50.9 - Heart failure, unspecified Code(s): I50.9 - Heart failure, unspecified Status: Acute (7) Afib: Qualifiers: Atrial fibrillation type: unspecified Qualified Code(s): I48.91 - Unspecified atrial fibrillation Code(s): I48.91 - Unspecified atrial fibrillation Status: Acute Subjective Date/time seen: 04/07/24 09:24 Interval history: Patient has no new respiratory complaints. She slept well last night. Perhaps less shortness of breath this a.m. Review of Systems Review of Systems: All systems reviewed & are unremarkable except as noted in HPI and below (HPI and below) Exam Narrative: GENERAL APPEARANCE: Well developed, well nourished, alert and cooperative, and appears to be in mild respiratory distress while on supplemental oxygen SKIN: Inspection of the skin reveals no rashes, ulcerations or petechiae. HEENT: Sclerae anicteric and conjunctivae pink and moist. Extraocular movements were intact and pupils were equal, round. Dry oral mucosa. NECK: Supple. JVD present. There was no thyroid enlargement, and no tenderness, or masses were felt. LUNGS: Crackles bilaterally no wheezing CARDIAC: There was a regular rate and rhythm without any murmurs, gallops, rubs. ABDOMEN: Soft and nontender with normal bowel sounds. There was no organomegaly. LYMPH NODES: No lymphadenopathy was appreciated in the neck, axillae or groin. EXTREMITIES: No cyanosis, clubbing. 2+ edema. NEUROLOGIC: Alert. Normal affect. Objective Data Vital Signs Vital Signs: Vital Signs - 24 hr 04/06/24 14:00 04/06/24 20:00 04/06/24 22:00 Temperature 36.9 C 36.8 C Pulse Rate 113 H 105 H Respiratory Rate 20 18 Blood Pressure 107/69 117/67 Pulse Oximetry 93 94 94 Oxygen Delivery Nasal Cannula Oxygen Flow Rate 1 04/07/24 06:00 04/07/24 09:01 04/07/24 09:04 Temperature 36.7 C Pulse Rate 90 114 H 114 H Respiratory Rate 16 Blood Pressure 107/65 Pulse Oximetry 91 Oxygen Delivery Oxygen Flow Rate Intake/Output Intake/Output: Intake & Output 04/04/24 04/05/24 04/06/24 04/07/24 23:59 23:59 23:59 23:59 Intake Total 2235 526 9024 400 Balance 6143 991 5790 400 Meds/Results Medications: Active Medications Generic Name Dose Route Start Last Admin Trade Name Freq PRN Reason Stop Dose Admin Acetaminophen 1,000 mg 03/28/24 09:37 03/29/24 20:46 Acetaminophen 500 Mg Tablet PO 1,000 mg Q6H PRN Administration Mild Pain (1-3) or Fever Hydrocodone Bitart/Acetaminophen 1 tab 03/28/24 09:33 04/05/24 15:34 Hydrocodone/Acetaminophen (*Crx) 5-325 Mg Tablet PO 1 tab Q4H PRN Administration Pain Rated 4-6 Albuterol 2.5 mg 04/01/24 10:57 Albuterol Sulfate Neb 2.5 Mg/3 Ml Inh INHALATION Q4HRT PRN Shortness Of Breath Alprazolam 0.5 mg 04/03/24 15:14 04/06/24 23:50 Alprazolam (*Crx) 0.5 Mg Tablet PO 0.5 mg TID PRN Administration Anxiety Amiodarone HCl 200 mg 03/27/24 09:00 04/07/24 09:04 Amiodarone Hcl 200 Mg Tablet PO 200 mg DAILY MIGUEL Administration Amlodipine Besylate 5 mg 03/27/24 09:00 04/07/24 09:04 Amlodipine Besylate 5 Mg Tablet BY MOUTH 5 mg DAILY MIGUEL Administration Ascorbic Acid 1,000 mg 03/27/24 09:00 04/07/24 09:04 Ascorbic Acid 500 Mg Tablet PO 1,000 mg QAM MIGUEL Administration Atorvastatin Calcium 40 mg 03/27/24 09:00 04/07/24 09:04 Atorvastatin 40 Mg Tablet PO 40 mg DAILY MIGUEL Administration Buspirone HCl 5 mg 03/27/24 09:00 04/07/24 09:04 Buspirone Hcl 5 Mg Tablet PO 5 mg BID MIGUEL Administration Calcium Carbonate 500 mg 03/27/24 09:00 04/07/24 09:04 Calcium Carbonate (Oscal) 500 Mg Tablet PO 500 mg QAM MIGUEL Administration Fluticasone/Umeclidinium/Vilanterol 1 puff 04/04/24 08:00 04/07/24 08:34 Fluticasone/Umeclidin/Vilanter 100-62.5-25 Mcg Ellipta INHALATION 1 puff DAILYRT MIGUEL Administration Furosemide 20 mg 04/02/24 09:00 04/07/24 09:00 Furosemide Inj 40 Mg/4 Ml Vial IV PUSH 20 mg BID MIGUEL Administration Hydromorphone HCl 0.5 mg 03/28/24 09:33 04/06/24 23:50 Hydromorphone Hcl Inj (*Crx) 1 Mg/Ml Syr IV PUSH 0.5 mg Q3H PRN Administration Pain Rated 7-10 Levothyroxine Sodium 75 mcg 03/28/24 06:30 04/07/24 05:28 Levothyroxine Sodium 75 Mcg Tablet BY MOUTH 75 mcg DAILY@0630 MIGUEL Administration Lidocaine 1 patch 03/30/24 09:00 04/07/24 09:04 Lidocaine 5% Patch TRANSDERM 1 patch DAILY MIGUEL Administration Metoprolol Succinate 50 mg 03/27/24 09:00 04/07/24 09:01 Metoprolol Succinate Ext Rel 50 Mg Tabcr PO 50 mg QAM MIGUEL Administration * Home Med * 300 mg 04/14/24 09:00 Dupilumab [Dupixent SUB-Q 05/14/24 08:59 Syringe] 300 Mg/2 Ml [id number] MIGUEL Syringe Oxycodone HCl 5 mg 03/28/24 09:33 04/07/24 05:38 Oxycodone Hcl (*Crx) 5 Mg Tab Ir PO 5 mg Q4H PRN Administration Pain Rated 7-10 Potassium Chloride 20 meq 03/27/24 09:00 03/30/24 18:02 Potassium Chloride 20 Meq Er Tablet PO 20 meq BID MIGUEL Administration Senna/Docusate Sodium 2 tab 03/28/24 22:25 04/07/24 09:03 Senna/Docusate Sodium Tablet PO 2 tab BID MIGUEL Administration Sodium Chloride 1 gm 04/05/24 09:05 04/07/24 09:03 Sodium Chloride 1 Gm Tablet PO 1 gm TID MIGUEL Administration Warfarin Sodium 3 mg 03/31/24 13:46 Warfarin (*Pbkc) 3 Mg Tablet PO EVENING [facility] Radiology Results: ITS Impressions Chest CT 03/26/24 21:50 IMPRESSION: Redemonstration of a right-sided pneumothorax, approximately 15-20% in size with a right posterior medial fifth rib fracture. Head CT 03/26/24 23:09 Impression: No acute intracranial hemorrhage or suspicious mass effect. Cervical Spine CT 03/26/24 23:13 Impression: Straightening and slight reversal of the normal curvature of the cervical spine, likely muscular in origin. Significant degenerative disease, without acute fracture. Chest CTA 03/29/24 08:00 IMPRESSION: 1. Right chest tube in expected position with small right pleural effusion but no pneumothorax. 2. Mild emphysema with mild dependent atelectasis in both lungs. 3. Cardiomegaly with biatrial enlargement. 4. Enlargement of the central pulmonary arteries consistent with pulmonary arterial hypertension. 5. Recent-appearing nondisplaced fractures of the posterior right fifth and sixth ribs. Chest X-Ray 04/05/24 09:50 IMPRESSION: Mild pulmonary vascular congestion with a large right and small sided pleural effusion. Labs Labs: Laboratory Results - last 24 hr 04/06/24 04/07/24 07:40 06:44 WBC 6.0 RBC 3.64 L Hgb 10.5 L Hct 33.3 L MCV 91.5 MCH 28.8 MCHC 31.5 L RDW 14.1 Plt Count 235 MPV 10.4 Immature Gran % (Auto) 1.5 H Neut % (Auto) 68.7 Lymph % (Auto) 8.8 L [place] % (Auto) 15.8 H Eos % (Auto) 4.7 H Baso % (Auto) 0.5 Lymph # (Auto) 0.53 L [place] # (Auto) 1.0 H Eos # (Auto) 0.3 Baso # (Auto) 0.0 Abs Immat Gran (auto) 0.09 H Absolute Neuts (auto) 4.1 Absolute Nucleated RBC 0.000 Nucleated RBC % 0.0 PT 18.3 H INR 1.5 Sodium 130 L Potassium 4.0 Chloride 93 L Carbon Dioxide 30 Anion Gap 7 BUN 23 H Creatinine 0.76 Estim Creat Clear Calc 48 Estimated GFR > 60 Glucose 88 Calcium 8.2 L
--- NOTE | 2024-04-07 09:57 | P.PNIM_ITS ---
Progress Note: A&P Assessment and Plan (1) Pneumothorax: Code(s): J93.9 - Pneumothorax, unspecified Status: Acute (2) MARC (obstructive sleep apnea): Code(s): G47.33 - Obstructive sleep apnea (adult) (pediatric) Status: Acute (3) Chronic respiratory failure: Qualifiers: Respiratory failure complication: hypoxia Qualified Code(s): J96.11 - Chronic respiratory failure with hypoxia Code(s): J96.10 - Chronic respiratory failure, unspecified whether with hypoxia or hypercapnia Status: Acute (4) COPD (chronic obstructive pulmonary disease): Qualifiers: COPD type: unspecified COPD Qualified Code(s): J44.9 - Chronic obstructive pulmonary disease, unspecified Code(s): J44.9 - Chronic obstructive pulmonary disease, unspecified Status: Acute (5) Closed rib fracture: Code(s): S22.39XA - Fracture of one rib, unspecified side, initial encounter for closed fracture Status: Acute (6) GERD (gastroesophageal reflux disease): Qualifiers: Esophagitis presence: without esophagitis Qualified Code(s): K21.9 - Gastro-esophageal reflux disease without esophagitis Code(s): K21.9 - Gastro-esophageal reflux disease without esophagitis Status: Acute (7) Hypothyroidism: Qualifiers: Hypothyroidism type: acquired Qualified Code(s): E03.9 - Hypothyroidism, unspecified Code(s): E03.9 - Hypothyroidism, unspecified Status: Acute (8) Hyperlipidemia: Qualifiers: Hyperlipidemia type: elevated lipoprotein(a) Qualified Code(s): E78.41 - Elevated Lipoprotein(a) Code(s): E78.5 - Hyperlipidemia, unspecified Status: Acute (9) Afib: Qualifiers: Atrial fibrillation type: unspecified Qualified Code(s): I48.91 - U nspecified atrial fibrillation Code(s): I48.91 - Unspecified atrial fibrillation Status: Acute (10) CHF (congestive heart failure): Qualifiers: Heart failure chronicity: unspecified Heart failure type: unspecified Qualified Code(s): I50.9 - Heart failure, unspecified Code(s): I50.9 - Heart failure, unspecified Status: Acute (11) Hypertension: Qualifiers: Hypertension type: primary hypertension Qualified Code(s): I10 - Essential (primary) hypertension Code(s): I10 - Essential (primary) hypertension Status: Acute Plan This is an 88-year-old female presented to the ER after ground level fall. She was getting something out of a cabinet when she lost her balance and fell backwards hitting a chair. She had pain in her right back. She then developed shortness of breath. She came to the ER to be evaluated. She denies head trauma loss of consciousness. She has been ambulatory since the incident. Patient is supposed to be on anticoagulation for atrial fibrillation but ran out of her Eliquis 4 days ago. She has been prescribed Coumadin by her hand zipper trimmer but has not started taking Acute pneumothorax Likely resulting in a fall a needle decompression was performed for suspected tension pneumothorax the 2nd intercostal space on the right significant dickerson air. CT chest performed which showed right-sided pneumothorax with subcutaneous air along the right anterolateral chest wall and posterior medial chest wall. Chest tube was placed, consulted general surgeon for management Chest tube has now been removed 03/29/2024.has right chest wall pain at the back COPD acute on chronic chronic hypoxic respiratory failure on home oxygen with acute exacerbation 03/29/2024. IV Lasix received overnight. CTA Negative for PE or pneumonia. Patient needs high-flow oxygen since admission Start DuoNeb scheduled albuterol nebulizer p.r.n., ABG: Hypercapnic and hypoxemic respiratory failure Diastolic heart failure with exacerbation. Echocardiogram showed EF of 60-65%, mild pulmonary hypertension, diastolic dysfunction is indeterminate Received IV Lasix On Lasix 40 mg daily p.o. Patient is fluid overloaded Change to Lasix 20 mg b.i.d. IV push and give Lasix 40 mg ivp once 04/01 X-ray showed cardiomegaly, increased interstitial change, increase to 40mg bid 04/02 Follow-up input output BNP: 4390 on 04/02 Repeated chest x-ray, continue IV Lasix tody 04/07 Acute on chronic respiratory failure Patient need 1-2 L oxygen and home Now patient has worsening dyspnea Likely resulting from COPD, chest restriction and fluid overload ABG showed hypercapnic and hypoxemic respiratory failure Start bronchodilators, and start IV Lasix 04/01 X-ray showed cardiomegaly atelectasis Continue O2 therapy Provide incentive spirometry Patient still needs 6 L oxygen per nasal cannular 04/03 Consult dressing room porter for evaluation treatment Hypoxemia improving Suspecting MARC, pending sleep study Grain Broker And Market Operator recommend continue O2 therapy [address] patient on BiPAP Atrial fibrillation on amiodarone and metoprolol And warfarin 3 mg daily INR in therapeutic range Hyponatremia Likely secondary to poor oral intake and IV Lasix Provide sodium chloride 1 g b.i.d. p.o. 04/02 Increase sodium chloride to 1 g t.i.d. p.o. 04/05 Hypothyroidism On Synthroid 75 mcg daily p.o. Hypertension Amlodipine 5 mg daily p.o. Blood pressure is controlled Hyperlipidemia On Lipitor 40 mg daily p.o. GERD Varicose vein Osteoarthritis Anticoagulation with Eliquis DVT prophylaxis currently on warfarin INR Code status full code Subjective Date/time seen: 04/07/24 09:57 Interval history: I saw and examined patient today, patient is able to ambulate with physical therapist, but patient had shortness breast when patient was walking. Oxygen level dropped. Patient denied headache, focal weakness, still have back pain, denies palpitation abdomen pain nausea vomiting diarrhea dysuria. Exam Narrative: GENERAL: Pleasant, in no acute distress. Well-nourished. - EYES: EOMI. Anicteric. - HENT: Moist mucous membranes. - LUNGS: Crackles bilateral base, reduc ing. No wheezing, rhonchi, at right chest pain - CARDIOVASCULAR: Regular rate and rhyth m. No murmur. No JVD. - ABDOMEN: Soft, non-tender and non-dist ended. No palpable masses. - EXTREMITIES: No edema. Peripheral puls es 2+. Non-tender. - NEUROLOGIC: No focal neurological defi cits. CN II-XII grossly intact. - PSYCHIATRIC: Awake, Alert and oriented x 3. Appropriate mood and affect. - SKIN: No rashes or lesions. Warm. - LYMPH: No cervical lymphadenopathy. Objective Data Vital Signs Vital Signs: Vital Signs - 24 hr 04/06/24 14:00 04/06/24 20:00 04/06/24 22:00 Temperature 98.4 F 98.3 F Pulse Rate 113 H 105 H Respiratory Rate 20 18 Blood Pressure 107/69 117/67 Pulse Oximetry 93 94 94 Oxygen Delivery Nasal Cannula Oxygen Flow Rate 1 04/07/24 06:00 04/07/24 09:01 04/07/24 09:04 Temperature 98.0 F Pulse Rate 90 114 H 114 H Respiratory Rate 16 Blood Pressure 107/65 Pulse Oximetry 91 Oxygen Delivery Oxygen Flow Rate Intake/Output Intake/Output: Intake & Output 04/04/24 04/05/24 04/06/24 04/07/24 23:59 23:59 23:59 23:59 Intake Total 2301 690 6544 400 Balance 3619 188 4598 400 Meds/Results Medications: Active Medications Generic Name Dose Route Start Last Admin Trade Name Freq PRN Reason Stop Dose Admin Acetaminophen 1,000 mg 03/28/24 09:37 03/29/24 20:46 Acetaminophen 500 Mg Tablet PO 1,000 mg Q6H PRN Administration Mild Pain (1-3) or Fever Albuterol 2.5 mg 04/01/24 10:57 Albuterol Sulfate Neb 2.5 Mg/3 Ml Inh INHALATION Q4HRT PRN Shortness Of Breath Alprazolam 0.5 mg 04/03/24 15:14 04/06/24 23:50 Alprazolam (*Crx) 0.5 Mg Tablet PO 0.5 mg TID PRN Administration Anxiety Amiodarone HCl 200 mg 03/27/24 09:00 04/07/24 09:04 Amiodarone Hcl 200 Mg Tablet PO 200 mg DAILY MIGUEL Administration Amlodipine Besylate 5 mg 03/27/24 09:00 04/07/24 09:04 Amlodipine Besylate 5 Mg Tablet BY MOUTH 5 mg DAILY MIGUEL Administration Ascorbic Acid 1,000 mg 03/27/24 09:00 04/07/24 09:04 Ascorbic Acid 500 Mg Tablet PO 1,000 mg QAM MIGUEL Administration Atorvastatin Calcium 40 mg 03/27/24 09:00 04/07/24 09:04 Atorvastatin 40 Mg Tablet PO 40 mg DAILY MIGUEL Administration Buspirone HCl 5 mg 03/27/24 09:00 04/07/24 09:04 Buspirone Hcl 5 Mg Tablet PO 5 mg BID MIGUEL Administration Calcium Carbonate 500 mg 03/27/24 09:00 04/07/24 09:04 Calcium Carbonate (Oscal) 500 Mg Tablet PO 500 mg QAM MIGUEL Administration Fluticasone/Umeclidinium/Vilanterol 1 puff 04/04/24 08:00 04/07/24 08:34 Fluticasone/Umeclidin/Vilanter 100-62.5-25 Mcg Ellipta INHALATION 1 puff DAILYRT MIGUEL Administration Furosemide 20 mg 04/02/24 09:00 04/07/24 09:00 Furosemide Inj 40 Mg/4 Ml Vial IV PUSH 20 mg BID MIGUEL Administration Levothyroxine Sodium 75 mcg 03/28/24 06:30 04/07/24 05:28 Levothyroxine Sodium 75 Mcg Tablet BY MOUTH 75 mcg DAILY@0630 MIGUEL Administration Lidocaine 1 patch 03/30/24 09:00 04/07/24 09:04 Lidocaine 5% Patch TRANSDERM 1 patch DAILY MIGUEL Administration Metoprolol Succinate 50 mg 03/27/24 09:00 04/07/24 09:01 Metoprolol Succinate Ext Rel 50 Mg Tabcr PO 50 mg QAM MIGUEL Administration * Home Med * 300 mg 04/14/24 09:00 Dupilumab [Dupixent SUB-Q 05/14/24 08:59 Syringe] 300 Mg/2 Ml [id number] [facility] Syringe Potassium Chloride 20 meq 03/27/24 09:00 03/30/24 18:02 Potassium Chloride 20 Meq Er Tablet PO 20 meq BID MIGUEL Administration Senna/Docusate Sodium 2 tab 03/28/24 22:25 04/07/24 09:03 Senna/Docusate Sodium Tablet PO 2 tab BID [facility] Administration Sodium Chloride 1 gm 04/05/24 09:05 04/07/24 09:03 Sodium Chloride 1 Gm Tablet PO 1 gm TID [facility] Administration Warfarin Sodium 3 mg 03/31/24 13:46 Warfarin (*Pbkc) 3 Mg Tablet PO EVENING [facility] Radiology Results: ITS Impressions Chest CT 03/26/24 21:50 IMPRESSION: Redemonstration of a right-sided pneumothorax, approximately 15-20% in size with a right posterior medial fifth rib fracture. Head CT 03/26/24 23:09 Impression: No acute intracranial hemorrhage or suspicious mass effect. Cervical Spine CT 03/26/24 23:13 Impression: Straightening and slight reversal of the normal curvature of the cervical spine, likely muscular in origin. Significant degenerative disease, without acute fracture. Chest CTA 03/29/24 08:00 IMPRESSION: 1. Right chest tube in expected position with small right pleural effusion but no pneumothorax. 2. Mild emphysema with mild dependent atelectasis in both lungs. 3. Cardiomegaly with biatrial enlargement. 4. Enlargement of the central pulmonary arteries consistent with pulmonary arterial hypertension. 5. Recent-appearing nondisplaced fractures of the posterior right fifth and sixth ribs. Chest X-Ray 04/05/24 09:50 IMPRESSION: Mild pulmonary vascular congestion with a large right and small sided pleural effusion. Labs Labs: Laboratory Results - last 24 hr 04/07/24 06:44 WBC 6.0 RBC 3.64 L Hgb 10.5 L Hct 33.3 L MCV 91.5 MCH 28.8 MCHC 31.5 L RDW 14.1 Plt Count 235 MPV 10.4 Immature Gran % (Auto) 1.5 H Neut % (Auto) 68.7 Lymph % (Auto) 8.8 L [place] % (Auto) 15.8 H Eos % (Auto) 4.7 H Baso % (Auto) 0.5 Lymph # (Auto) 0.53 L [place] # (Auto) 1.0 H Eos # (Auto) 0.3 Baso # (Auto) 0.0 Abs Immat Gran (auto) 0.09 H Absolute Neuts (auto) 4.1 Absolute Nucleated RBC 0.000 Nucleated RBC % 0.0 Sodium 130 L Potassium 4.0 Chloride 93 L Carbon Dioxide 30 Anion Gap 7 BUN 23 H Creatinine 0.76 Estim Creat Clear Calc 48 Estimated GFR > 60 Glucose 88 Calcium 8.2 L
[2024-04-07] MEDS: ACETAMINOPHEN 500 MG TABLET 1000 MG PO (17:22)
[2024-04-07] MEDS: SODIUM CHLORIDE 1 GM TABLET 2 GM PO (17:23)
[2024-04-07] MEDS: ALPRAZolam (*CRX) 0.5 MG TABLET PO (22:06)
[2024-04-08] VITALS (10 sets, daily range): BP systolic 107–117; BP diastolic 59–69; PULSE 53–97; RESP 16–22; TEMP 36.5–36.9; O2SAT 91–100
[2024-04-08] MEDS: LEVOTHYROXINE SODIUM 75 MCG TABLET BY MOUTH (05:41)
--- NOTE | 2024-04-08 05:53 | PCRCNOTE ---
Apnea link was unable to be completed tonight, 04/07/24, due to therapist being unavailable until ventilation equipment tender, 04/08/24 to apply the link. Info will be passed on to an RT to apply the night of 04/08/24.
[2024-04-08] MEDS: ACETAMINOPHEN 500 MG TABLET 1000 MG PO (07:05)
[2024-04-08] MEDS: METOPROLOL SUCCINATE EXT REL 50 MG TABCR PO (08:02)
[2024-04-08] MEDS: ASCORBIC ACID 500 MG TABLET 1000 MG PO (08:02)
[2024-04-08] MEDS: CALCIUM CARBONATE (OSCAL) 500 MG TABLET PO (08:02)
[2024-04-08] MEDS: LIDOCAINE 5% PATCH 1 PATCH TRANSDERM (08:02)
[2024-04-08] MEDS: FUROSEMIDE INJ 40 MG/4 ML VIAL 20 MG IV PUSH ×2 (08:02→16:21)
[2024-04-08] MEDS: SODIUM CHLORIDE 1 GM TABLET 2 GM PO ×2 (08:03→16:22)
[2024-04-08] MEDS: AMIODARONE HCL 200 MG TABLET PO (08:04)
[2024-04-08] MEDS: SENNA/DOCUSATE SODIUM TABLET 2 TAB PO ×2 (08:04→16:22)
[2024-04-08] MEDS: amLODIPine BESYLATE 5 MG TABLET BY MOUTH (08:04)
[2024-04-08] MEDS: busPIRone HCL 5 MG TABLET PO ×2 (08:04→16:21)
[2024-04-08] MEDS: ATORVASTATIN 40 MG TABLET PO (08:04)
[2024-04-08] MEDS: FLUTICASONE/UMECLIDIN/VILANTER 100-62.5-25 MCG ELLIPTA 1 PUFF INHALATION (08:59)
--- NOTE | 2024-04-08 09:01 | P.PNPL_ITS ---
Progress Note: A&P Assessment and Plan (1) COPD (chronic obstructive pulmonary disease): Qualifiers: COPD type: unspecified COPD Qualified Code(s): J44.9 - Chronic obstructive pulmonary disease, unspecified Code(s): J44.9 - Chronic obstructive pulmonary disease, unspecified Status: Acute (2) Hypoxemia: Code(s): R09.02 - Hypoxemia Status: Acute (3) Chronic respiratory failure: Qualifiers: Respiratory failure complication: hypoxia Qualified Code(s): J96.11 - Chronic respiratory failure with hypoxia Code(s): J96.10 - Chronic respiratory failure, unspecified whether with hypoxia or hypercapnia Status: Acute Assessment and Plan: This 88-year-old female patient with a history of mild COPD, chronically on maintenance bronchodilators, and chronic hypoxemia managed with supplemental oxygen, has untreated sleep apnea and recent atrial fibrillation for which she is receiving treatment, including anticoagulants. She presented with shortness of breath related to a pneumothorax. Despite the resolution of the pneumothorax, she continues to experience shortness of breath related to congestive heart failure. On physical examination, she exhibits bilateral rales, jugular venous distension (JVD), and lower extremity edema despite diuresis, indicating an overall positive fluid balance. The last ApneaLink study showed mild oxyhemoglobin desaturation, with oxyhemoglobin saturation below 88% for approximately 4% of the sleep time, marking a significant improvement from the previous sleep study when she was tested on a lower oxygen flow. She continues to require supplemental oxygen but significantly less flow than before. On physical exam she continues to have wet lungs and decreased breath sounds at right base due to pleural effusion. BiPAP was not tried on last night. Respiratory status stable over the last couple of days. Patient is still on diuresis. Plan: Continue with diuretic treatment. BiPAP support at night along with ApneaLink as ordered. Chest x-ray in a.m. (4) Acute on chronic hypoxic respiratory failure: Code(s): J96.21 - Acute and chronic respiratory failure with hypoxia Status: Acute (5) MARC (obstructive sleep apnea): Code(s): G47.33 - Obstructive sleep apnea (adult) (pediatric) Status: Acute (6) CHF (congestive heart failure): Qualifiers: Heart failure type: unspecified Heart failure chronicity: unspecified Qualified Code(s): I50.9 - Heart failure, unspecified Code(s): I50.9 - Heart failure, unspecified Status: Acute (7) Afib: Qualifiers: Atrial fibrillation type: unspecified Qualified Code(s): I48.91 - Unspecified atrial fibrillation Code(s): I48.91 - Unspecified atrial fibrillation Status: Acute Subjective Date/time seen: 04/08/24 09:01 Interval history: She stated breathing is better this a.m.. BiPAP machine at bedside but not started last night. Also no ApneaLink study done. She remains on supplemental oxygen via nasal cannula. No other respiratory complaints Review of Systems Review of Systems: All systems reviewed & are unremarkable except as noted in HPI and below (HPI and below) Exam Narrative: GENERAL APPEARANCE: Well developed, well nourished, alert and cooperative, and appears to be in mild respiratory distress while on supplemental oxygen SKIN: Inspection of the skin reveals no rashes, ulcerations or petechiae. HEENT: Sclerae anicteric and conjunctivae pink and moist. Extraocular movements were intact and pupils were equal, round. Dry oral mucosa. NECK: Supple. JVD present. There was no thyroid enlargement, and no tenderness, or masses were felt. LUNGS: Crackles bilaterally no wheezing CARDIAC: There was a regular rate and rhythm without any murmurs, gallops, rubs. ABDOMEN: Soft and nontender with normal bowel sounds. There was no organomegaly. LYMPH NODES: No lymphadenopathy was appreciated in the neck, axillae or groin. EXTREMITIES: No cyanosis, clubbing. 2+ edema. NEUROLOGIC: Alert. Normal affect. Objective Data Vital Signs Vital Signs: Vital Signs - 24 hr 04/07/24 09:04 04/07/24 14:00 04/07/24 15:38 Temperature 37.2 C Pulse Rate 114 H 97 Respiratory Rate 14 Blood Pressure 95/61 L 96/60 L Pulse Oximetry 92 Oxygen Delivery Oxygen Flow Rate Fraction of Inspired Oxygen 04/07/24 20:10 04/07/24 20:35 04/08/24 04:25 Temperature 36.9 C 36.5 C Pulse Rate 97 92 85 Respiratory Rate 14 20 20 Blood Pressure 108/70 117/69 Pulse Oximetry 92 93 100 Oxygen Delivery Nasal Cannula Oxygen Flow Rate 4 Fraction of Inspired Oxygen 28 04/08/24 08:02 04/08/24 08:04 Temperature Pulse Rate 97 97 Respiratory Rate Blood Pressure Pulse Oximetry Oxygen Delivery Oxygen Flow Rate Fraction of Inspired Oxygen Intake/Output Intake/Output: Intake & Output 04/05/24 04/06/24 04/07/24 04/08/24 23:59 23:59 23:59 23:59 Intake Total 236 1576 1500 300 Balance 236 1576 1500 300 Meds/Results Medications: Active Medications Generic Name Dose Route Start Last Admin Trade Name Freq PRN Reason Stop Dose Admin Acetaminophen 1,000 mg 03/28/24 09:37 04/08/24 07:05 Acetaminophen 500 Mg Tablet PO 1,000 mg Q6H PRN Administration Mild Pain (1-3) or Fever Albuterol 2.5 mg 04/01/24 10:57 Albuterol Sulfate Neb 2.5 Mg/3 Ml Inh INHALATION Q4HRT PRN Shortness Of Breath Alprazolam 0.5 mg 04/03/24 15:14 04/07/24 22:06 Alprazolam (*Crx) 0.5 Mg Tablet PO 0.5 mg TID PRN Administration Anxiety Amiodarone HCl 200 mg 03/27/24 09:00 04/08/24 08:04 Amiodarone Hcl 200 Mg Tablet PO 200 mg DAILY MIGUEL Administration Amlodipine Besylate 5 mg 03/27/24 09:00 04/08/24 08:04 Amlodipine Besylate 5 Mg Tablet BY MOUTH 5 mg DAILY MIGUEL Administration Ascorbic Acid 1,000 mg 03/27/24 09:00 04/08/24 08:02 Ascorbic Acid 500 Mg Tablet PO 1,000 mg QAM MIGUEL Administration Atorvastatin Calcium 40 mg 03/27/24 09:00 04/08/24 08:04 Atorvastatin 40 Mg Tablet PO 40 mg DAILY MIGUEL Administration Buspirone HCl 5 mg 03/27/24 09:00 04/08/24 08:04 Buspirone Hcl 5 Mg Tablet PO 5 mg BID MIGUEL Administration Calcium Carbonate 500 mg 03/27/24 09:00 04/08/24 08:02 Calcium Carbonate (Oscal) 500 Mg Tablet PO 500 mg QAM MIGUEL Administration Fluticasone/Umeclidinium/Vilanterol 1 puff 04/04/24 08:00 04/08/24 08:59 Fluticasone/Umeclidin/Vilanter 100-62.5-25 Mcg Ellipta INHALATION 1 puff DAILYRT MIGUEL Administration Furosemide 20 mg 04/02/24 09:00 04/08/24 08:02 Furosemide Inj 40 Mg/4 Ml Vial IV PUSH 20 mg BID MIGUEL Administration Levothyroxine Sodium 75 mcg 03/28/24 06:30 04/08/24 05:41 Levothyroxine Sodium 75 Mcg Tablet BY MOUTH 75 mcg DAILY@0630 MIGUEL Administration Lidocaine 1 patch 03/30/24 09:00 04/08/24 08:02 Lidocaine 5% Patch TRANSDERM 1 patch DAILY MIGUEL Administration Metoprolol Succinate 50 mg 03/27/24 09:00 04/08/24 08:02 Metoprolol Succinate Ext Rel 50 Mg Tabcr PO 50 mg QAM MIGUEL Administration * Home Med * 300 mg 04/14/24 09:00 Dupilumab [Dupixent SUB-Q 05/14/24 08:59 Syringe] 300 Mg/2 Ml [id number] MIGUEL Syringe Potassium Chloride 20 meq 03/27/24 09:00 03/30/24 18:02 Potassium Chloride 20 Meq Er Tablet PO 20 meq BID MIGUEL Administration Senna/Docusate Sodium 2 tab 03/28/24 22:25 04/08/24 08:04 Senna/Docusate Sodium Tablet PO 2 tab BID MIGUEL Administration Sodium Chloride 2 gm 04/07/24 17:00 04/08/24 08:03 Sodium Chloride 1 Gm Tablet PO 2 gm BID MIGUEL Administration Warfarin Sodium 3 mg 03/31/24 13:46 Warfarin (*Pbkc) 3 Mg Tablet PO EVENING [facility] Radiology Results: ITS Impressions Chest CT 03/26/24 21:50 IMPRESSION: Redemonstration of a right-sided pneumothorax, approximately 15-20% in size with a right posterior medial fifth rib fracture. Head CT 03/26/24 23:09 Impression: No acute intracranial hemorrhage or suspicious mass effect. Cervical Spine CT 03/26/24 23:13 Impression: Straightening and slight reversal of the normal curvature of the cervical spine, likely muscular in origin. Significant degenerative disease, without acute fracture. Chest CTA 03/29/24 08:00 IMPRESSION: 1. Right chest tube in expected position with small right pleural effusion but no pneumothorax. 2. Mild emphysema with mild dependent atelectasis in both lungs. 3. Cardiomegaly with biatrial enlargement. 4. Enlargement of the central pulmonary arteries consistent with pulmonary arterial hypertension. 5. Recent-appearing nondisplaced fractures of the posterior right fifth and sixth ribs. Chest X-Ray 04/05/24 09:50 IMPRESSION: Mild pulmonary vascular congestion with a large right and small sided pleural effusion.
--- NOTE | 2024-04-08 09:06 | PM.IMPN ---
Progress Note: A&P Assessment and Plan (1) Pneumothorax: Code(s): J93.9 - Pneumothorax, unspecified Status: Acute (2) MARC (obstructive sleep apnea): Code(s): G47.33 - Obstructive sleep apnea (adult) (pediatric) Status: Acute (3) Chronic respiratory failure: Qualifiers: Respiratory failure complication: hypoxia Qualified Code(s): J96.11 - Chronic respiratory failure with hypoxia Code(s): J96.10 - Chronic respiratory failure, unspecified whether with hypoxia or hypercapnia Status: Acute (4) COPD (chronic obstructive pulmonary disease): Qualifiers: COPD type: unspecified COPD Qualified Code(s): J44.9 - Chronic obstructive pulmonary disease, unspecified Code(s): J44.9 - Chronic obstructive pulmonary disease, unspecified Status: Acute (5) Closed rib fracture: Code(s): S22.39XA - Fracture of one rib, unspecified side, initial encounter for closed fracture Status: Acute (6) GERD (gastroesophageal reflux disease): Qualifiers: Esophagitis presence: without esophagitis Qualified Code(s): K21.9 - Gastro-esophageal reflux disease without esophagitis Code(s): K21.9 - Gastro-esophageal reflux disease without esophagitis Status: Acute (7) Hypothyroidism: Qualifiers: Hypothyroidism type: acquired Qualified Code(s): E03.9 - Hypothyroidism, unspecified Code(s): E03.9 - Hypothyroidism, unspecified Status: Acute (8) Hyperlipidemia: Qualifiers: Hyperlipidemia type: elevated lipoprotein(a) Qualified Code(s): E78.41 - Elevated Lipoprotein(a) Code(s): E78.5 - Hyperlipidemia, unspecified Status: Acute (9) Afib: Qualifiers: Atrial fibrillation type: unspecified Qualified Code(s): I48.91 - Unspecified atrial fibrillation Code(s): I48.91 - Unspecified atrial fibrillation Status: Acute (10) CHF (congestive heart failure): Qualifiers: Heart failure chronicity: unspecified Heart failure type: unspecified Qualified Code(s): I50.9 - Heart failure, unspecified Code(s): I50.9 - Heart failure, unspecified Status: Acute (11) Hypertension: Qualifiers: Hypertension type: primary hypertension Qualified Code(s): I10 - Essential (primary) hypertension Code(s): I10 - Essential (primary) hypertension Status: Acute Plan This is an 88-year-old female presented to the ER after ground level fall. She was getting something out of a cabinet when she lost her balance and fell backwards hitting a chair. She had pain in her right back. She then developed shortness of breath. She came to the ER to be evaluated. She denies head trauma loss of consciousness. She has been ambulatory since the incident. Patient is supposed to be on anticoagulation for atrial fibrillation but ran out of her Eliquis 4 days ago. 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 CT chest performed which showed right-sided pneumothorax with subcutaneous air along the right anterolateral chest wall and posterior medial chest wall. Chest tube was placed, consulted general surgeon for management Chest tube has now been removed 03/29/2024.has right chest wall pain at the back COPD acute on chronic chronic hypoxic respiratory failure on home oxygen with acute exacerbation 03/29/2024. IV Lasix received overnight. CTA Negative for PE or pneumonia. Patient needs high-flow oxygen since admission Start DuoNeb scheduled albuterol nebulizer p.r.n., ABG: Hypercapnic and hypoxemic respiratory failure Diastolic heart failure with exacerbation. Echocardiogram showed EF of 60-65%, mild pulmonary hypertension, diastolic dysfunction is indeterminate Received IV Lasix On Lasix 40 mg daily p.o. Patient is fluid overloaded Change to Lasix 20 mg b.i.d. IV push and give Lasix 40 mg ivp once 04/01 X-ray showed cardiomegaly, increased interstitial change, increase to 40mg bid 04/02 Follow-up input output BNP: 4390 on 04/02 Repeated chest x-ray, continue IV Lasix tody 04/07 Acute on chronic respiratory failure Patient need 1-2 L oxygen and home Now patient has worsening dyspnea Likely resulting from COPD, chest restriction and fluid overload ABG showed hypercapnic and hypoxemic respiratory failure Start bronchodilators, and start IV Lasix 04/01 X-ray showed cardiomegaly atelectasis Continue O2 therapy Provide incentive spirometry Patient still needs 6 L oxygen per nasal cannular 04/03 Consult stringing machine operator for evaluation treatment Hypoxemia improving Suspecting MARC, pending sleep study Chemical Engineering Professor recommend continue O2 therapy [address] patient on BiPAP Atrial fibrillation on amiodarone and metoprolol And warfarin 3 mg daily INR in therapeutic range Hyponatremia Likely secondary to poor oral intake and IV Lasix Provide sodium chloride 1 g b.i.d. p.o. 04/02 Increase sodium chloride to 1 g t.i.d. p.o. 04/05 Hypothyroidism On Synthroid 75 mcg daily p.o. Hypertension Amlodipine 5 mg daily p.o. Blood pressure is controlled Hyperlipidemia On Lipitor 40 mg daily p.o. GERD Varicose vein Osteoarthritis Anticoagulation with Eliquis DVT prophylaxis currently on warfarin INR Code status full code Subjective Date/time seen: 04/08/24 09:06 Interval history: I saw and exam patient today, patient has a general weakness, patient still need 48 oxygen. Patient has dyspnea with exertion. Denies chest pain abdomen pain nausea vomiting diarrhea Exam Narrative: GENERAL: Pleasant, in no acute distress. Well-nourished. - EYES: EOMI. Anicteric. - HENT: Moist mucous membranes. - LUNGS: Crackles bilateral base, reducing. No wheezing, rhonchi, at right chest pain - CARDIOVASCULAR: Regular rate and rhythm. No murmur. No JVD. - ABDOMEN: Soft, non-tender and non-distended. No palpable masses. - EXTREMITIES: No edema. Peripheral pulses 2+. Non-tender. - NEUROLOGIC: No focal neurological deficits. CN II-XII grossly intact. - PSYCHIATRIC: Awake, Alert and oriented x 3. Appropriate mood and affect. - SKIN: No rashes or lesions. Warm. - LYMPH: No cervical lymphadenopathy. Objective Data Vital Signs Vital Signs: Vital Signs - 24 hr 04/07/24 14:00 04/07/24 15:38 04/07/24 20:10 Temperature 99 F Pulse Rate 97 97 Respiratory Rate 14 14 Blood Pressure 95/61 L 96/60 L Pulse Oximetry 92 92 Oxygen Delivery Nasal Cannula Oxygen Flow Rate 4 Fraction of Inspired Oxygen 28 04/07/24 20:35 04/08/24 04:25 04/08/24 08:02 Temperature 98.4 F 97.7 F Pulse Rate 92 85 97 Respiratory Rate 20 20 Blood Pressure 108/70 117/69 Pulse Oximetry 93 100 Oxygen Delivery Oxygen Flow Rate Fraction of Inspired Oxygen 04/08/24 08:04 04/08/24 09:03 Temperature Pulse Rate 97 Respiratory Rate Blood Pressure Pulse Oximetry 91 Oxygen Delivery Nasal Cannula Oxygen Flow Rate 4 Fraction of Inspired Oxygen Intake/Output Intake/Output: Intake & Output 04/05/24 04/06/24 04/07/24 04/08/24 23:59 23:59 23:59 23:59 Intake Total 236 1576 1500 300 Balance 236 1576 1500 300 Meds/Results Medications: Active Medications Generic Name Dose Route Start Last Admin Trade Name Freq PRN Reason Stop Dose Admin Acetaminophen 1,000 mg 03/28/24 09:37 04/08/24 07:05 Acetaminophen 500 Mg Tablet PO 1,000 mg Q6H PRN Administration Mild Pain (1-3) or Fever Albuterol 2.5 mg 04/01/24 10:57 Albuterol Sulfate Neb 2.5 Mg/3 Ml Inh INHALATION Q4HRT PRN Shortness Of Breath Alprazolam 0.5 mg 04/03/24 15:14 04/07/24 22:06 Alprazolam (*Crx) 0.5 Mg Tablet PO 0.5 mg TID PRN Administration Anxiety Amiodarone HCl 200 mg 03/27/24 09:00 04/08/24 08:04 Amiodarone Hcl 200 Mg Tablet PO 200 mg DAILY MIGUEL Administration Amlodipine Besylate 5 mg 03/27/24 09:00 04/08/24 08:04 Amlodipine Besylate 5 Mg Tablet BY MOUTH 5 mg DAILY MIGUEL Administration Ascorbic Acid 1,000 mg 03/27/24 09:00 04/08/24 08:02 Ascorbic Acid 500 Mg Tablet PO 1,000 mg QAM MIGUEL Administration Atorvastatin Calcium 40 mg 03/27/24 09:00 04/08/24 08:04 Atorvastatin 40 Mg Tablet PO 40 mg DAILY MIGUEL Administration Buspirone HCl 5 mg 03/27/24 09:00 04/08/24 08:04 Buspirone Hcl 5 Mg Tablet PO 5 mg BID MIGUEL Administration Calcium Carbonate 500 mg 03/27/24 09:00 04/08/24 08:02 Calcium Carbonate (Oscal) 500 Mg Tablet PO 500 mg QAM MIGUEL Administration Fluticasone/Umeclidinium/Vilanterol 1 puff 04/04/24 08:00 04/08/24 08:59 Fluticasone/Umeclidin/Vilanter 100-62.5-25 Mcg Ellipta INHALATION 1 puff DAILYRT MIGUEL Administration Furosemide 20 mg 04/02/24 09:00 04/08/24 08:02 Furosemide Inj 40 Mg/4 Ml Vial IV PUSH 20 mg BID MIGUEL Administration Levothyroxine Sodium 75 mcg 03/28/24 06:30 04/08/24 05:41 Levothyroxine Sodium 75 Mcg Tablet BY MOUTH 75 mcg DAILY@0630 MIGUEL Administration Lidocaine 1 patch 03/30/24 09:00 04/08/24 08:02 Lidocaine 5% Patch TRANSDERM 1 patch DAILY MIGUEL Administration Metoprolol Succinate 50 mg 03/27/24 09:00 04/08/24 08:02 Metoprolol Succinate Ext Rel 50 Mg Tabcr PO 50 mg QAM MIGUEL Administration * Home Med * 300 mg 04/14/24 09:00 Dupilumab [Dupixent SUB-Q 05/14/24 08:59 Syringe] 300 Mg/2 Ml [id number] MIGUEL Syringe Potassium Chloride 20 meq 03/27/24 09:00 03/30/24 18:02 Potassium Chloride 20 Meq Er Tablet PO 20 meq BID MIGUEL Administration Senna/Docusate Sodium 2 tab 03/28/24 22:25 04/08/24 08:04 Senna/Docusate Sodium Tablet PO 2 tab BID MIGUEL Administration Sodium Chloride 2 gm 04/07/24 17:00 04/08/24 08:03 Sodium Chloride 1 Gm Tablet PO 2 gm BID MIGUEL Administration Warfarin Sodium 3 mg 03/31/24 13:46 Warfarin (*Pbkc) 3 Mg Tablet PO EVENING [facility] Radiology Results: ITS Impressions Chest CT 03/26/24 21:50 IMPRESSION: Redemonstration of a right-sided pneumothorax, approximately 15-20% in size with a right posterior medial fifth rib fracture. Head CT 03/26/24 23:09 Impression: No acute intracranial hemorrhage or suspicious mass effect. Cervical Spine CT 03/26/24 23:13 Impression: Straightening and slight reversal of the normal curvature of the cervical spine, likely muscular in origin. Significant degenerative disease, without acute fracture. Chest CTA 03/29/24 08:00 IMPRESSION: 1. Right chest tube in expected position with small right pleural effusion but no pneumothorax. 2. Mild emphysema with mild dependent atelectasis in both lungs. 3. Cardiomegaly with biatrial enlargement. 4. Enlargement of the central pulmonary arteries consistent with pulmonary arterial hypertension. 5. Recent-appearing nondisplaced fractures of the posterior right fifth and sixth ribs. Chest X-Ray 04/05/24 09:50 IMPRESSION: Mild pulmonary vascular congestion with a large right and small sided pleural effusion.
[2024-04-08] MEDS: oxyCODONE HCL (*CRX) 5 MG TAB IR PO ×3 (09:53→22:29)
[2024-04-08] MEDS: ALPRAZolam (*CRX) 0.5 MG TABLET PO (22:29)
[2024-04-09] VITALS (7 sets, daily range): BP systolic 107–149; BP diastolic 71–90; PULSE 93–122; RESP 18–22; TEMP 36.7–37.2; O2SAT 91–95
[2024-04-09] MEDS: oxyCODONE HCL (*CRX) 5 MG TAB IR PO ×4 (05:21→20:24)
[2024-04-09] MEDS: LEVOTHYROXINE SODIUM 75 MCG TABLET BY MOUTH (05:31)
[2024-04-09 07:38] LABS: INR 1.3; Prothrombin Time 16.4 Seconds (11.1-14.7)
[2024-04-09] MEDS: FLUTICASONE/UMECLIDIN/VILANTER 100-62.5-25 MCG ELLIPTA 1 PUFF INHALATION (08:00)
--- NOTE | 2024-04-09 08:57 | P.PNIM_ITS ---
Progress Note: A&P Assessment and Plan (1) Pneumothorax: Code(s): J93.9 - Pneumothorax, unspecified Status: Acute (2) MARC (obstructive sleep apnea): Code(s): G47.33 - Obstructive sleep apnea (adult) (pediatric) Status: Acute (3) Chronic respiratory failure: Qualifiers: Respiratory failure complication: hypoxia Qualified Code(s): J96.11 - Chronic respiratory failure with hypoxia Code(s): J96.10 - Chronic respiratory failure, unspecified whether with hypoxia or hypercapnia Status: Acute (4) COPD (chronic obstructive pulmonary disease): Qualifiers: COPD type: unspecified COPD Qualified Code(s): J44.9 - Chronic obstructive pulmonary disease, unspecified Code(s): J44.9 - Chronic obstructive pulmonary disease, unspecified Status: Acute (5) Closed rib fracture: Code(s): S22.39XA - Fracture of one rib, unspecified side, initial encounter for closed fracture Status: Acute (6) GERD (gastroesophageal reflux disease): Qualifiers: Esophagitis presence: without esophagitis Qualified Code(s): K21.9 - Gastro-esophageal reflux disease without esophagitis Code(s): K21.9 - Gastro-esophageal reflux disease without esophagitis Status: Acute (7) Hypothyroidism: Qualifiers: Hypothyroidism type: acquired Qualified Code(s): E03.9 - Hypothyroidism, unspecified Code(s): E03.9 - Hypothyroidism, unspecified Status: Acute (8) Hyperlipidemia: Qualifiers: Hyperlipidemia type: elevated lipoprotein(a) Qualified Code(s): E78.41 - Elevated Lipoprotein(a) Code(s): E78.5 - Hyperlipidemia, unspecified Status: Acute (9) Afib: Qualifiers: Atrial fibrillation type: unspecified Qualified Code(s): I48.91 - U nspecified atrial fibrillation Code(s): I48.91 - Unspecified atrial fibrillation Status: Acute (10) CHF (congestive heart failure): Qualifiers: Heart failure chronicity: unspecified Heart failure type: unspecified Qualified Code(s): I50.9 - Heart failure, unspecified Code(s): I50.9 - Heart failure, unspecified Status: Acute (11) Hypertension: Qualifiers: Hypertension type: primary hypertension Qualified Code(s): I10 - Essential (primary) hypertension Code(s): I10 - Essential (primary) hypertension Status: Acute Plan This is an 88-year-old female presented to the ER after ground level fall. She was getting something out of a cabinet when she lost her balance and fell backwards hitting a chair. She had pain in her right back. She then developed shortness of breath. She came to the ER to be evaluated. She denies head trauma loss of consciousness. She has been ambulatory since the incident. Patient is supposed to be on anticoagulation for atrial fibrillation but ran out of her Eliquis 4 days ago. She has been prescribed Coumadin by her drug and alcohol counselor but has not started taking Acute pneumothorax Likely resulting in a fall a needle decompression was performed for suspected tension pneumothorax the 2nd intercostal space on the right significant dickerson air. CT chest performed which showed right-sided pneumothorax with subcutaneous air along the right anterolateral chest wall and posterior medial chest wall. Chest tube was placed, consulted general surgeon for management Chest tube has now been removed 03/29/2024.has right chest wall pain at the back COPD acute on chronic chronic hypoxic respiratory failure on home oxygen with acute exacerbation 03/29/2024. IV Lasix received overnight. CTA Negative for PE or pneumonia. Patient needs high-flow oxygen since admission Start DuoNeb scheduled albuterol nebulizer p.r.n., ABG: Hypercapnic and hypoxemic respiratory failure Diastolic heart failure with exacerbation. Echocardiogram showed EF of 60-65%, mild pulmonary hypertension, diastolic dysfunction is indeterminate Received IV Lasix On Lasix 40 mg daily p.o. Patient is fluid overloaded Change to Lasix 20 mg b.i.d. IV push and give Lasix 40 mg ivp once 04/01 X-ray showed cardiomegaly, increased interstitial change, increase to 40mg bid 04/02 Follow-up input output BNP: 4390 on 04/02 Repeated chest x-ray 04/07, still had congestion. on IV Lasix 20mg bid ivp now patient is euvolemic, dc lasix ivp Acute on chronic respiratory failure Patient need 1-2 L oxygen and home Now patient has worsening dyspnea Likely resulting from COPD, chest restriction and fluid overload ABG showed hypercapnic and hypoxemic respiratory failure Start bronchodilators, and start IV Lasix 04/01 X-ray showed cardiomegaly atelectasis Continue O2 therapy Provide incentive spirometry Patient still needs 6 L oxygen per nasal cannular 2/14 Consult resident programs assistant for evaluation treatment Hypoxemia improving Suspecting MARC, pending sleep study Fermentation Manager recommend continue O2 therapy [address] patient on BiPAP Atrial fibrillation on amiodarone and metoprolol And warfarin 3 mg daily INR in therapeutic range Hyponatremia Likely secondary to poor oral intake and IV Lasix Provide sodium chloride 1 g b.i.d. p.o. 04/02 Increase sodium chloride to 1 g t.i.d. p.o. 04/05 Hypothyroidism On Synthroid 75 mcg daily p.o. Hypertension Amlodipine 5 mg daily p.o. Blood pressure is controlled Hyperlipidemia On Lipitor 40 mg daily p.o. GERD Varicose vein Osteoarthritis Anticoagulation with Eliquis DVT prophylaxis currently on warfarin INR Code status full code waiting for the placement in a rehab Subjective Date/time seen: 04/09/24 08:57 Interval history: I saw and exam patient today, patient has a general weakness, patient still need 4 oxygen. Patient has dyspnea with exertion. Denies chest pain abdomen pain nausea vomiting diarrhea. No new issue or event overnight. Exam Narrative: GENERAL: Pleasant, in no acute distress. Well-nourished. - EYES: EOMI. Anicteric. - HENT: Moist mucous membranes. - LUNGS: Crackles bilateral base, reduc ing. No wheezing, rhonchi, at right chest pain - CARDIOVASCULAR: Regular rate and rhyth m. No murmur. No JVD. - ABDOMEN: Soft, non-tender and non-dist ended. No palpable masses. - EXTREMITIES: No edema. Peripheral puls es 2+. Non-tender. - NEUROLOGIC: No focal neurological defi cits. CN II-XII grossly intact. - PSYCHIATRIC: Awake, Alert and oriented x 3. Appropriate mood and affect. - SKIN: No rashes or lesions. Warm. - LYMPH: No cervical lymphadenopathy. Objective Data Vital Signs Vital Signs: Vital Signs - 24 hr 04/08/24 09:03 04/08/24 14:00 04/08/24 20:20 Temperature 98.3 F Pulse Rate 92 53 L Respiratory Rate 22 H 16 Blood Pressure 107/63 Pulse Oximetry 91 92 93 Oxygen Delivery Nasal Cannula Nasal Cannula Oxygen Flow Rate 4 4.5 Fraction of Inspired Oxygen 28 04/08/24 20:31 04/08/24 23:00 04/08/24 23:10 Temperature 98.5 F Pulse Rate 53 L Respiratory Rate 16 17 Blood Pressure 117/59 L Pulse Oximetry 93 96 95 Oxygen Delivery Autopap CPAP Oxygen Flow Rate 3 Fraction of Inspired Oxygen 04/09/24 03:08 04/09/24 05:19 04/09/24 08:00 Temperature 98.0 F Pulse Rate 122 H Respiratory Rate 20 20 Blood Pressure 149/90 H Pulse Oximetry 91 92 Oxygen Delivery Autopap Nasal Cannula Oxygen Flow Rate 4 Fraction of Inspired Oxygen Intake/Output Intake/Output: Intake & Output 04/06/24 04/07/24 04/08/24 04/09/24 23:59 23:59 23:59 23:59 Intake Total 1576 1500 1955 550 Balance 1576 1500 195 550 Meds/Results Medications: Active Medications Generic Name Dose Route Start Last Admin Trade Name Freq PRN Reason Stop Dose Admin Acetaminophen 1,000 mg 03/28/24 09:37 04/08/24 07:05 Acetaminophen 500 Mg Tablet PO 1,000 mg Q6H PRN Administration Mild Pain (1-3) or Fever Albuterol 2.5 mg 04/01/24 10:57 Albuterol Sulfate Neb 2.5 Mg/3 Ml Inh INHALATION Q4HRT PRN Shortness Of Breath Alprazolam 0.5 mg 04/03/24 15:14 04/08/24 22:29 Alprazolam (*Crx) 0.5 Mg Tablet PO 0.5 mg TID PRN Administration Anxiety Amiodarone HCl 200 mg 03/27/24 09:00 04/08/24 08:04 Amiodarone Hcl 200 Mg Tablet PO 200 mg DAILY MIGUEL Administration Amlodipine Besylate 5 mg 03/27/24 09:00 04/08/24 08:04 Amlodipine Besylate 5 Mg Tablet BY MOUTH 5 mg DAILY MIGUEL Administration Ascorbic Acid 1,000 mg 03/27/24 09:00 04/08/24 08:02 Ascorbic Acid 500 Mg Tablet PO 1,000 mg QAM MIGUEL Administration Atorvastatin Calcium 40 mg 03/27/24 09:00 04/08/24 08:04 Atorvastatin 40 Mg Tablet PO 40 mg DAILY MIGUEL Administration Buspirone HCl 5 mg 03/27/24 09:00 04/08/24 16:21 Buspirone Hcl 5 Mg Tablet PO 5 mg BID MIGUEL Administration Calcium Carbonate 500 mg 03/27/24 09:00 04/08/24 08:02 Calcium Carbonate (Oscal) 500 Mg Tablet PO 500 mg QAM MIGUEL Administration Fluticasone/Umeclidinium/Vilanterol 1 puff 04/04/24 08:00 04/09/24 08:00 Fluticasone/Umeclidin/Vilanter 100-62.5-25 Mcg Ellipta INHALATION 1 puff DAILYRT MIGUEL Administration Furosemide 20 mg 04/02/24 09:00 04/08/24 16:21 Furosemide Inj 40 Mg/4 Ml Vial IV PUSH 20 mg BID MIGUEL Administration Levothyroxine Sodium 75 mcg 03/28/24 06:30 04/09/24 05:31 Levothyroxine Sodium 75 Mcg Tablet BY MOUTH 75 mcg DAILY@0630 MIGUEL Administration Lidocaine 1 patch 03/30/24 09:00 04/08/24 08:02 Lidocaine 5% Patch TRANSDERM 1 patch DAILY MIGUEL Administration Metoprolol Succinate 50 mg 03/27/24 09:00 04/08/24 08:02 Metoprolol Succinate Ext Rel 50 Mg Tabcr PO 50 mg QAM MIGUEL Administration * Home Med * 300 mg 04/14/24 09:00 Dupilumab [Dupixent SUB-Q 05/14/24 08:59 Syringe] 300 Mg/2 Ml [id number] MIGUEL Syringe Oxycodone HCl 5 mg 04/08/24 09:35 04/09/24 05:21 Oxycodone Hcl (*Crx) 5 Mg Tab Ir PO 5 mg Q4H PRN Administration Pain Rated 7-10 Potassium Chloride 20 meq 03/27/24 09:00 03/30/24 18:02 Potassium Chloride 20 Meq Er Tablet PO 20 meq BID MIGUEL Administration Senna/Docusate Sodium 2 tab 03/28/24 22:25 04/08/24 16:22 Senna/Docusate Sodium Tablet PO 2 tab BID MIGUEL Administration Sodium Chloride 2 gm 04/07/24 17:00 04/08/24 16:22 Sodium Chloride 1 Gm Tablet PO 2 gm BID MIGUEL Administration Warfarin Sodium 3 mg 03/31/24 13:46 Warfarin (*Pbkc) 3 Mg Tablet PO EVENING [facility] Radiology Results: ITS Impressions Chest CT 03/26/24 21:50 IMPRESSION: Redemonstration of a right-sided pneumothorax, approximately 15-20% in size with a right posterior medial fifth rib fracture. Head CT 03/26/24 23:09 Impression: No acute intracranial hemorrhage or suspicious mass effect. Cervical Spine CT 03/26/24 23:13 Impression: Straightening and slight reversal of the normal curvature of the cervical spine, likely muscular in origin. Significant degenerative disease, without acute fracture. Chest CTA 03/29/24 08:00 IMPRESSION: 1. Right chest tube in expected position with small right pleural effusion but no pneumothorax. 2. Mild emphysema with mild dependent atelectasis in both lungs. 3. Cardiomegaly with biatrial enlargement. 4. Enlargement of the central pulmonary arteries consistent with pulmonary arterial hypertension. 5. Recent-appearing nondisplaced fractures of the posterior right fifth and sixth ribs. Chest X-Ray 04/09/24 06:13 Impression: Small bilateral pleural effusions with mild bibasilar pulmonary edema/atelectasis. Stable cardiomegaly. Pericardial effusion not excluded. Labs Labs: Laboratory Results - last 24 hr 04/09/24 07:07 PT 16.4 H INR 1.3
--- NOTE | 2024-04-09 09:05 | PM.PNPUL ---
Progress Note: A&P Assessment and Plan (1) COPD (chronic obstructive pulmonary disease): Qualifiers: COPD type: unspecified COPD Qualified Code(s): J44.9 - Chronic obstructive pulmonary disease, unspecified Code(s): J44.9 - Chronic obstructive pulmonary disease, unspecified Status: Acute (2) Hypoxemia: Code(s): R09.02 - Hypoxemia Status: Acute (3) Chronic respiratory failure: Qualifiers: Respiratory failure complication: hypoxia Qualified Code(s): J96.11 - Chronic respiratory failure with hypoxia Code(s): J96.10 - Chronic respiratory failure, unspecified whether with hypoxia or hypercapnia Status: Acute Assessment and Plan: This 88-year-old female patient with a history of mild COPD, chronically on maintenance bronchodilators, and chronic hypoxemia managed with supplemental oxygen, has untreated sleep apnea and recent atrial fibrillation for which she is receiving treatment, including anticoagulants. She presented with shortness of breath related to a pneumothorax. Despite the resolution of the pneumothorax, she continues to experience shortness of breath related to congestive heart failure. On physical examination, she exhibits bilateral rales, jugular venous distension (JVD), and lower extremity edema despite diuresis, indicating an overall positive fluid balance. The last ApneaLink study showed mild oxyhemoglobin desaturation, with oxyhemoglobin saturation below 88% for approximately 4% of the sleep time, marking a significant improvement from the previous sleep study when she was tested on a lower oxygen flow. She continues to require supplemental oxygen but significantly less flow than before. On physical exam she continues to have wet lungs and decreased breath sounds at right base due to pleural effusion. The patient used auto CPAP and supplemental oxygen at 3 liters per minute last night. The ApneaLink results showed worsening oxyhemoglobin desaturation, the cause of which is currently unexplained. The patient reported sleeping well last night. It is unclear whether there was an error in recording the oxygen saturation. Plan: We will repeat the ApneaLink study tonight using the same settings, i.e., auto CPAP and supplemental oxygen at 3 liters per minute (4) Acute on chronic hypoxic respiratory failure: Code(s): J96.21 - Acute and chronic respiratory failure with hypoxia Status: Acute (5) MARC (obstructive sleep apnea): Code(s): G47.33 - Obstructive sleep apnea (adult) (pediatric) Status: Acute (6) CHF (congestive heart failure): Qualifiers: Heart failure type: unspecified Heart failure chronicity: unspecified Qualified Code(s): I50.9 - Heart failure, unspecified Code(s): I50.9 - Heart failure, unspecified Status: Acute (7) Afib: Qualifiers: Atrial fibrillation type: unspecified Qualified Code(s): I48.91 - Unspecified atrial fibrillation Code(s): I48.91 - Unspecified atrial fibrillation Status: Acute Subjective Date/time seen: 04/09/24 09:05 Interval history: Patient has no new respiratory symptoms. She stated she slept very well last night on auto CPAP with a range of 5-15 and 3 L supplemental oxygen. Patient's roommate stated that Karin slept very well last night on the CPAP machine; she made no noise previous nights. Review of Systems Review of Systems: All systems reviewed & are unremarkable except as noted in HPI and below (HPI and below) Exam Narrative: GENERAL APPEARANCE: Well developed, well nourished, alert and cooperative, and appears to be in mild respiratory distress while on supplemental oxygen SKIN: Inspection of the skin reveals no rashes, ulcerations or petechiae. HEENT: Sclerae anicteric and conjunctivae pink and moist. Extraocular movements were intact and pupils were equal, round. Dry oral mucosa. NECK: Supple. JVD present. There was no thyroid enlargement, and no tenderness, or masses were felt. LUNGS: Crackles bilaterally no wheezing CARDIAC: There was a regular rate and rhythm without any murmurs, gallops, rubs. ABDOMEN: Soft and nontender with normal bowel sounds. There was no organomegaly. LYMPH NODES: No lymphadenopathy was appreciated in the neck, axillae or groin. EXTREMITIES: No cyanosis, clubbing. 2+ edema. NEUROLOGIC: Alert. Normal affect. Objective Data Vital Signs Vital Signs: Vital Signs - 24 hr 04/08/24 14:00 04/08/24 20:20 04/08/24 20:31 Temperature 36.8 C 36.9 C Pulse Rate 92 53 L 53 L Respiratory Rate 22 H 16 16 Blood Pressure 107/63 117/59 L Pulse Oximetry 92 93 93 Oxygen Delivery Nasal Cannula Oxygen Flow Rate 4.5 Fraction of Inspired Oxygen 28 04/08/24 23:00 04/08/24 23:10 04/09/24 03:08 Temperature Pulse Rate Respiratory Rate 17 20 Blood Pressure Pulse Oximetry 96 95 Oxygen Delivery Autopap CPAP Autopap Oxygen Flow Rate 3 Fraction of Inspired Oxygen 04/09/24 05:19 04/09/24 08:00 Temperature 36.7 C Pulse Rate 122 H Respiratory Rate 20 Blood Pressure 149/90 H Pulse Oximetry 91 92 Oxygen Delivery Nasal Cannula Oxygen Flow Rate 4 Fraction of Inspired Oxygen Intake/Output Intake/Output: Intake & Output 04/06/24 04/07/24 04/08/24 04/09/24 23:59 23:59 23:59 23:59 Intake Total 1576 1500 1955 550 Balance 1576 1500 1954 550 Meds/Results Medications: Active Medications Generic Name Dose Route Start Last Admin Trade Name Freq PRN Reason Stop Dose Admin Acetaminophen 1,000 mg 03/28/24 09:37 04/08/24 07:05 Acetaminophen 500 Mg Tablet PO 1,000 mg Q6H PRN Administration Mild Pain (1-3) or Fever Albuterol 2.5 mg 04/01/24 10:57 Albuterol Sulfate Neb 2.5 Mg/3 Ml Inh INHALATION Q4HRT PRN Shortness Of Breath Alprazolam 0.5 mg 04/03/24 15:14 04/08/24 22:29 Alprazolam (*Crx) 0.5 Mg Tablet PO 0.5 mg TID PRN Administration Anxiety Amiodarone HCl 200 mg 03/27/24 09:00 04/08/24 08:04 Amiodarone Hcl 200 Mg Tablet PO 200 mg DAILY MIGUEL Administration Amlodipine Besylate 5 mg 03/27/24 09:00 04/08/24 08:04 Amlodipine Besylate 5 Mg Tablet BY MOUTH 5 mg DAILY MIGEUL Administration Ascorbic Acid 1,000 mg 03/27/24 09:00 04/08/24 08:02 Ascorbic Acid 500 Mg Tablet PO 1,000 mg QAM MIGUEL Administration Atorvastatin Calcium 40 mg 03/27/24 09:00 04/08/24 08:04 Atorvastatin 40 Mg Tablet PO 40 mg DAILY MIGUEL Administration Buspirone HCl 5 mg 03/27/24 09:00 04/08/24 16:21 Buspirone Hcl 5 Mg Tablet PO 5 mg BID MIGUEL Administration Calcium Carbonate 500 mg 03/27/24 09:00 04/08/24 08:02 Calcium Carbonate (Oscal) 500 Mg Tablet PO 500 mg QAM MIGUEL Administration Fluticasone/Umeclidinium/Vilanterol 1 puff 04/04/24 08:00 04/09/24 08:00 Fluticasone/Umeclidin/Vilanter 100-62.5-25 Mcg Ellipta INHALATION 1 puff DAILYRT MIGUEL Administration Levothyroxine Sodium 75 mcg 03/28/24 06:30 04/09/24 05:31 Levothyroxine Sodium 75 Mcg Tablet BY MOUTH 75 mcg DAILY@0630 MIGUEL Administration Lidocaine 1 patch 03/30/24 09:00 04/08/24 08:02 Lidocaine 5% Patch TRANSDERM 1 patch DAILY MIGUEL Administration Metoprolol Succinate 50 mg 03/27/24 09:00 04/08/24 08:02 Metoprolol Succinate Ext Rel 50 Mg Tabcr PO 50 mg QAM MIGUEL Administration * Home Med * 300 mg 04/14/24 09:00 Dupilumab [Dupixent SUB-Q 05/14/24 08:59 Syringe] 300 Mg/2 Ml [id number] Syringe Oxycodone HCl 5 mg 04/08/24 09:35 04/09/24 05:21 Oxycodone Hcl (*Crx) 5 Mg Tab Ir PO 5 mg Q4H PRN Administration Pain Rated 7-10 Potassium Chloride 20 meq 03/27/24 09:00 03/30/24 18:02 Potassium Chloride 20 Meq Er Tablet PO 20 meq BID MIGUEL Administration Senna/Docusate Sodium 2 tab 03/28/24 22:25 04/08/24 16:22 Senna/Docusate Sodium Tablet PO 2 tab BID MIGUEL Administration Sodium Chloride 2 gm 04/07/24 17:00 04/08/24 16:22 Sodium Chloride 1 Gm Tablet PO 2 gm BID MIGUEL Administration Warfarin Sodium 3 mg 03/31/24 13:46 Warfarin (*Pbkc) 3 Mg Tablet PO [facility] Radiology Results: ITS Impressions Chest CT 03/26/24 21:50 IMPRESSION: Redemonstration of a right-sided pneumothorax, approximately 15-20% in size with a right posterior medial fifth rib fracture. Head CT 03/26/24 23:09 Impression: No acute intracranial hemorrhage or suspicious mass effect. Cervical Spine CT 03/26/24 23:13 Impression: Straightening and slight reversal of the normal curvature of the cervical spine, likely muscular in origin. Significant degenerative disease, without acute fracture. Chest CTA 03/29/24 08:00 IMPRESSION: 1. Right chest tube in expected position with small right pleural effusion but no pneumothorax. 2. Mild emphysema with mild dependent atelectasis in both lungs. 3. Cardiomegaly with biatrial enlargement. 4. Enlargement of the central pulmonary arteries consistent with pulmonary arterial hypertension. 5. Recent-appearing nondisplaced fractures of the posterior right fifth and sixth ribs. Chest X-Ray 04/09/24 06:13 Impression: Small bilateral pleural effusions with mild bibasilar pulmonary edema/atelectasis. Stable cardiomegaly. Pericardial effusion not excluded. Labs Labs: Laboratory Results - last 24 hr 04/09/24 07:07 PT 16.4 H INR 1.3
[2024-04-09 09:09] LABS: Basophils Percent Auto 0.4 % (0.2-1.2); Eosinophils Absolute Auto 0.3 K/mm3 (0-0.3); Eosinophils Percent Auto 3.3 % (0-4.4); Hemoglobin 10.8 g/dL (12.0-15.0); Immature Granulocyte Absolute 0.07 K/mm3 (0.00-0.031); Immature Granulocyte Percent A 0.9 % (0-0.5); Lymphocytes Absolute Auto 0.41 K/mm3 (0.9-3.2); Lymphocytes Percent Auto 5.1 % (18.3-44.2); Mean Corpuscular HGB Conc 31.8 g/dl (32-36); Mean Corpuscular Hemoglobin 29.5 pg (26-34); Mean Corpuscular Volume 92.9 fl (80-100); Mean Platelet Volume 11.6 fl (7.4-10.4); Monocytes Percent Auto 12.1 % (2.6-8.5); Neutrophils Absolute Auto 6.4 K/mm3 (1.3-6.7); Neutrophils Percent Auto 78.2 % (45.5-73.1); Platelet Count Result 249 k/mm3 (150-375); Red Blood Count 3.66 M/mm3 (4.2-5.4); Red Cell Distribution Width 14.4 % (11.5-14.5); White Blood Count 8.1 K/mm3 (4.5-10.0)
[2024-04-09 09:19] LABS: Anion Gap 7 mmol/L (4-12); Blood Urea Nitrogen 22 mg/dL (7-17); Calcium 8.4 mg/dL (8.4-10.2); Carbon Dioxide 32 mmol/L (22-30); Chloride 94 mmol/L (98-107); Estimated CRCL calculation 61 ml/min; Estimated Glomerular Filt Rate > 60; Glucose 91 mg/dL (65-110); Potassium 4.2 mmol/L (3.4-5.0); Sodium 133 mmol/L (137-145)
[2024-04-09] MEDS: ALPRAZolam (*CRX) 0.5 MG TABLET PO (09:31)
[2024-04-09] MEDS: AMIODARONE HCL 200 MG TABLET PO (09:31)
[2024-04-09] MEDS: SODIUM CHLORIDE 1 GM TABLET 2 GM PO ×2 (09:31→17:07)
[2024-04-09] MEDS: ATORVASTATIN 40 MG TABLET PO (09:32)
[2024-04-09] MEDS: LIDOCAINE 5% PATCH 1 PATCH TRANSDERM (09:32)
[2024-04-09] MEDS: busPIRone HCL 5 MG TABLET PO ×2 (09:32→17:07)
[2024-04-09] MEDS: CALCIUM CARBONATE (OSCAL) 500 MG TABLET PO (09:32)
[2024-04-09] MEDS: ASCORBIC ACID 500 MG TABLET 1000 MG PO (09:32)
[2024-04-09] MEDS: SENNA/DOCUSATE SODIUM TABLET 2 TAB PO ×2 (09:32→17:07)
[2024-04-09] MEDS: amLODIPine BESYLATE 5 MG TABLET BY MOUTH (09:32)
[2024-04-09] MEDS: METOPROLOL SUCCINATE EXT REL 50 MG TABCR PO (09:32)
--- NOTE | 2024-04-09 10:57 | PCPTNOTE ---
On 04/09/24, the student, CARYL Clayton, provided care and completed [facility] documentation on this patient. I have reviewed the student's documentation and agree with the findings.
--- NOTE | 2024-04-09 14:35 | PCNWS ---
Weekly nutritional screen. Patient is tolerating current Heart Healthy diet with adequate intake, 80-100%. Ensure Enlive BID (350 kcal, 20 g protein). No weight loss reported. No nutritional needs at this time.
--- NOTE | 2024-04-09 21:43 | PC.NURSE ---
Received call from granddaughter, Angelika. States her and cousin, Americo are primary care contacts for Kanchan. Concerned with patients increased lethargy. Request xanax not be administered tonight. Primary nurse aware. Angelika states she will talk to providers in am to get medication discontinued.
[2024-04-10] VITALS (7 sets, daily range): BP systolic 104–133; BP diastolic 63–79; PULSE 84–107; RESP 16–24; TEMP 36.7–37.2; O2SAT 90–95
[2024-04-10] MEDS: oxyCODONE HCL (*CRX) 5 MG TAB IR PO ×2 (04:31→20:51)
[2024-04-10] MEDS: LEVOTHYROXINE SODIUM 75 MCG TABLET BY MOUTH (05:46)
[2024-04-10 07:31] LABS: Basophils Percent Auto 0.4 % (0.2-1.2); Eosinophils Absolute Auto 0.2 K/mm3 (0-0.3); Eosinophils Percent Auto 2.3 % (0-4.4); Hematocrit 34.4 % (37.0-47.0); Hemoglobin 10.9 g/dL (12.0-15.0); Immature Granulocyte Absolute 0.08 K/mm3 (0.00-0.031); Immature Granulocyte Percent A 0.8 % (0-0.5); Lymphocytes Absolute Auto 0.41 K/mm3 (0.9-3.2); Mean Corpuscular HGB Conc 31.7 g/dl (32-36); Mean Corpuscular Hemoglobin 29.9 pg (26-34); Mean Corpuscular Volume 94.2 fl (80-100); Mean Platelet Volume 10.7 fl (7.4-10.4); Monocytes Absolute Auto 1.3 K/mm3 (0.1-0.6); Monocytes Percent Auto 12.9 % (2.6-8.5); Neutrophils Absolute Auto 8.1 K/mm3 (1.3-6.7); Neutrophils Percent Auto 79.6 % (45.5-73.1); Platelet Count Result 250 k/mm3 (150-375); Red Blood Count 3.65 M/mm3 (4.2-5.4); Red Cell Distribution Width 14.5 % (11.5-14.5); White Blood Count 10.2 K/mm3 (4.5-10.0)
[2024-04-10 07:42] LABS: Anion Gap 7 mmol/L (4-12); Blood Urea Nitrogen 28 mg/dL (7-17); Calcium 8.4 mg/dL (8.4-10.2); Carbon Dioxide 32 mmol/L (22-30); Chloride 93 mmol/L (98-107); Estimated CRCL calculation 47 ml/min; Estimated Glomerular Filt Rate > 60; Glucose 94 mg/dL (65-110); Potassium 4.6 mmol/L (3.4-5.0); Sodium 132 mmol/L (137-145)
[2024-04-10 09:00] LABS: INR 1.2; Prothrombin Time 15.9 Seconds (11.1-14.7)
[2024-04-10] MEDS: CALCIUM CARBONATE (OSCAL) 500 MG TABLET PO (09:33)
[2024-04-10] MEDS: ASCORBIC ACID 500 MG TABLET 1000 MG PO (09:33)
[2024-04-10] MEDS: SENNA/DOCUSATE SODIUM TABLET 2 TAB PO ×2 (09:34→17:56)
[2024-04-10] MEDS: AMIODARONE HCL 200 MG TABLET PO (09:34)
[2024-04-10] MEDS: METOPROLOL SUCCINATE EXT REL 50 MG TABCR PO (09:34)
[2024-04-10] MEDS: SODIUM CHLORIDE 1 GM TABLET 2 GM PO ×2 (09:34→17:56)
[2024-04-10] MEDS: busPIRone HCL 5 MG TABLET PO ×2 (09:35→17:56)
[2024-04-10] MEDS: amLODIPine BESYLATE 5 MG TABLET BY MOUTH (09:35)
[2024-04-10] MEDS: ATORVASTATIN 40 MG TABLET PO (09:35)
[2024-04-10] MEDS: ACETAMINOPHEN 500 MG TABLET 1000 MG PO (09:40)
[2024-04-10] MEDS: LIDOCAINE 5% PATCH 1 PATCH TRANSDERM (09:40)
--- NOTE | 2024-04-10 10:40 | PM.PNPUL ---
Progress Note: A&P Assessment and Plan (1) COPD (chronic obstructive pulmonary disease): Qualifiers: COPD type: unspecified COPD Qualified Code(s): J44.9 - Chronic obstructive pulmonary disease, unspecified Code(s): J44.9 - Chronic obstructive pulmonary disease, unspecified Status: Acute (2) Hypoxemia: Code(s): R09.02 - Hypoxemia Status: Acute (3) Chronic respiratory failure: Qualifiers: Respiratory failure complication: hypoxia Qualified Code(s): J96.11 - Chronic respiratory failure with hypoxia Code(s): J96.10 - Chronic respiratory failure, unspecified whether with hypoxia or hypercapnia Status: Acute Assessment and Plan: This 88-year-old female patient with a history of mild COPD, chronically on maintenance bronchodilators, and chronic hypoxemia managed with supplemental oxygen, has untreated sleep apnea and recent atrial fibrillation for which she is receiving treatment, including anticoagulants. She presented with shortness of breath related to a pneumothorax. Despite the resolution of the pneumothorax, she continues to experience shortness of breath related to congestive heart failure. On physical examination, she exhibits bilateral rales, jugular venous distension (JVD), and lower extremity edema despite diuresis, indicating an overall positive fluid balance. The last ApneaLink study showed mild oxyhemoglobin desaturation, with oxyhemoglobin saturation below 88% for approximately 4% of the sleep time, marking a significant improvement from the previous sleep study when she was tested on a lower oxygen flow. She continues to require supplemental oxygen but significantly less flow than before. On physical exam she continues to have wet lungs and decreased breath sounds at right base due to pleural effusion. Two nights ago, the patient used auto CPAP along with supplemental oxygen at 3 liters per minute. ApneaLink results indicated worsening oxyhemoglobin desaturation, the cause of which remains unclear. The patient reported sleeping well last night, but it is uncertain if there was an error in recording the oxygen saturation. Last night, the patient did not use the auto CPAP. The patient's overall cardiorespiratory status has remained stable over the past 48 hours. She continues to exhibit signs of hypoxemia, attributed to pulmonary edema and bilateral pleural effusions, all related to congestive heart failure. Currently, she is not on Lasix. Her respiratory issues are clearly linked to congestive heart failure, with pulmonary edema and bilateral pleural effusions. Without improvement in pulmonary congestion, she will likely continue experiencing hypoxemia, which may worsen at night due to her history of mild sleep apnea. Plan: Optimize treatment for congestive heart failure. Conduct an ApneaLink study with the patient using auto CPAP and current supplemental oxygen at night. (4) Acute on chronic hypoxic respiratory failure: Code(s): J96.21 - Acute and chronic respiratory failure with hypoxia Status: Acute (5) MARC (obstructive sleep apnea): Code(s): G47.33 - Obstructive sleep apnea (adult) (pediatric) Status: Acute (6) CHF (congestive heart failure): Qualifiers: Heart failure type: unspecified Heart failure chronicity: unspecified Qualified Code(s): I50.9 - Heart failure, unspecified Code(s): I50.9 - Heart failure, unspecified Status: Acute (7) Afib: Qualifiers: Atrial fibrillation type: unspecified Qualified Code(s): I48.91 - Unspecified atrial fibrillation Code(s): I48.91 - Unspecified atrial fibrillation Status: Acute Subjective Date/time seen: 04/10/24 10:40 Interval history: Patient did not use auto CPAP last night. He has no new respiratory symptoms but her oxygen flow is now higher at 6 liters/minute. Currently off Lasix. Last chest x-ray done yesterday continue to showed pulmonary edema mild degree along with bilateral pleural effusions. Review of Systems Review of Systems: All systems reviewed & are unremarkable except as noted in HPI and below (HPI and below) Exam Narrative: GENERAL APPEARANCE: Well developed, well nourished, alert and cooperative, and appears to be in mild respiratory distress while on supplemental oxygen SKIN: Inspection of the skin reveals no rashes, ulcerations or petechiae. HEENT: Sclerae anicteric and conjunctivae pink and moist. Extraocular movements were intact and pupils were equal, round. Dry oral mucosa. NECK: Supple. JVD present. There was no thyroid enlargement, and no tenderness, or masses were felt. LUNGS: Crackles bilaterally no wheezing CARDIAC: There was a regular rate and rhythm without any murmurs, gallops, rubs. ABDOMEN: Soft and nontender with normal bowel sounds. There was no organomegaly. LYMPH NODES: No lymphadenopathy was appreciated in the neck, axillae or groin. EXTREMITIES: No cyanosis, clubbing. 2+ edema. NEUROLOGIC: Alert. Normal affect. Objective Data Vital Signs Vital Signs: Vital Signs - 24 hr 04/09/24 14:00 04/09/24 20:10 04/09/24 21:41 Temperature 37.2 C 37.2 C Pulse Rate 93 95 95 Respiratory Rate 18 22 H 22 H Blood Pressure 112/73 107/71 Pulse Oximetry 95 92 92 Oxygen Delivery Nasal Cannula Oxygen Flow Rate 5 Fraction of Inspired Oxygen 28 04/09/24 22:50 04/10/24 05:57 04/10/24 09:34 Temperature 37.1 C Pulse Rate 107 H 107 H Respiratory Rate 21 H 16 Blood Pressure 105/79 Pulse Oximetry 95 95 Oxygen Delivery Autopap Oxygen Flow Rate Fraction of Inspired Oxygen 04/10/24 09:34 Temperature Pulse Rate 107 H Respiratory Rate Blood Pressure Pulse Oximetry Oxygen Delivery Oxygen Flow Rate Fraction of Inspired Oxygen Intake/Output Intake/Output: Intake & Output 04/07/24 04/08/24 04/09/24 04/10/24 23:59 23:59 23:59 23:59 Intake Total 1500 1954 1400 840 Balance 1500 1954 1400 840 Meds/Results Medications: Active Medications Generic Name Dose Route Start Last Admin Trade Name Freq PRN Reason Stop Dose Admin Acetaminophen 1,000 mg 03/28/24 09:37 04/10/24 09:40 Acetaminophen 500 Mg Tablet PO 1,000 mg Q6H PRN Administration Mild Pain (1-3) or Fever Albuterol 2.5 mg 04/01/24 10:57 Albuterol Sulfate Neb 2.5 Mg/3 Ml Inh INHALATION Q4HRT PRN Shortness Of Breath Alprazolam 0.5 mg 04/03/24 15:14 04/09/24 09:31 Alprazolam (*Crx) 0.5 Mg Tablet PO 0.5 mg TID PRN Administration Anxiety Amiodarone HCl 200 mg 03/27/24 09:00 04/10/24 09:34 Amiodarone Hcl 200 Mg Tablet PO 200 mg DAILY MIGUEL Administration Amlodipine Besylate 5 mg 03/27/24 09:00 04/10/24 09:35 Amlodipine Besylate 5 Mg Tablet BY MOUTH 5 mg DAILY MIGUEL Administration Ascorbic Acid 1,000 mg 03/27/24 09:00 04/10/24 09:33 Ascorbic Acid 500 Mg Tablet PO 1,000 mg QAM MIGUEL Administration Atorvastatin Calcium 40 mg 03/27/24 09:00 04/10/24 09:35 Atorvastatin 40 Mg Tablet PO 40 mg DAILY MIGUEL Administration Buspirone HCl 5 mg 03/27/24 09:00 04/10/24 09:35 Buspirone Hcl 5 Mg Tablet PO 5 mg BID MIGUEL Administration Calcium Carbonate 500 mg 03/27/24 09:00 04/10/24 09:33 Calcium Carbonate (Oscal) 500 Mg Tablet PO 500 mg QAM MIGUEL Administration Fluticasone/Umeclidinium/Vilanterol 1 puff 04/04/24 08:00 04/09/24 08:00 Fluticasone/Umeclidin/Vilanter 100-62.5-25 Mcg Ellipta INHALATION 1 puff DAILYRT MIGUEL Administration Levothyroxine Sodium 75 mcg 03/28/24 06:30 04/10/24 05:46 Levothyroxine Sodium 75 Mcg Tablet BY MOUTH 75 mcg DAILY@0630 MIGUEL Administration Lidocaine 1 patch 03/30/24 09:00 04/10/24 09:40 Lidocaine 5% Patch TRANSDERM 1 patch DAILY MIGUEL Administration Metoprolol Succinate 50 mg 03/27/24 09:00 04/10/24 09:34 Metoprolol Succinate Ext Rel 50 Mg Tabcr PO 50 mg QAM MIGUEL Administration * Home Med * 300 mg 04/14/24 09:00 Dupilumab [Dupixent SUB-Q 05/14/24 08:59 Syringe] 300 Mg/2 Ml [id number] MIGUEL Syringe Oxycodone HCl 5 mg 04/08/24 09:35 04/10/24 04:31 Oxycodone Hcl (*Crx) 5 Mg Tab Ir PO 5 mg Q4H PRN Administration Pain Rated 7-10 Potassium Chloride 20 meq 03/27/24 09:00 03/30/24 18:02 Potassium Chloride 20 Meq Er Tablet PO 20 meq BID MIGUEL Administration Senna/Docusate Sodium 2 tab 03/28/24 22:25 04/10/24 09:34 Senna/Docusate Sodium Tablet PO 2 tab BID MIGUEL Administration Sodium Chloride 2 gm 04/07/24 17:00 04/10/24 09:34 Sodium Chloride 1 Gm Tablet PO 2 gm BID MIGUEL Administration Warfarin Sodium 3 mg 03/31/24 13:46 Warfarin (*Pbkc) 3 Mg Tablet PO EVENING [facility] Radiology Results: ITS Impressions Chest CT 03/26/24 21:50 IMPRESSION: Redemonstration of a right-sided pneumothorax, approximately 15-20% in size with a right posterior medial fifth rib fracture. Head CT 03/26/24 23:09 Impression: No acute intracranial hemorrhage or suspicious mass effect. Cervical Spine CT 03/26/24 23:13 Impression: Straightening and slight reversal of the normal curvature of the cervical spine, likely muscular in origin. Significant degenerative disease, without acute fracture. Chest CTA 03/29/24 08:00 IMPRESSION: 1. Right chest tube in expected position with small right pleural effusion but no pneumothorax. 2. Mild emphysema with mild dependent atelectasis in both lungs. 3. Cardiomegaly with biatrial enlargement. 4. Enlargement of the central pulmonary arteries consistent with pulmonary arterial hypertension. 5. Recent-appearing nondisplaced fractures of the posterior right fifth and sixth ribs. Chest X-Ray 04/09/24 10:38 Impression: [id number] bilateral pleural effusions with mild bibasilar pulmonary edema/atelectasis. Stable cardiomegaly. Labs Labs: Laboratory Results - last 24 hr 04/04/24 04/10/24 04/10/24 07:03 07:19 08:36 WBC 10.2 H RBC 3.65 L Hgb 10.9 L Hct 34.4 L MCV 94.2 MCH 29.9 MCHC 31.7 L RDW 14.5 Plt Count 250 MPV 10.7 H Immature Gran % (Auto) 0.8 H Neut % (Auto) 79.6 H Lymph % (Auto) 4.0 L [place] % (Auto) 12.9 H Eos % (Auto) 2.3 Baso % (Auto) 0.4 Lymph # (Auto) 0.41 L [place] # (Auto) 1.3 H Eos # (Auto) 0.2 Baso # (Auto) 0.0 Abs Immat Gran (auto) 0.08 H Absolute Neuts (auto) 8.1 H Absolute Nucleated RBC 0.000 Nucleated RBC % 0.0 PT 15.9 H INR 1.2 Sodium 132 L Potassium 4.6 Chloride 93 L Carbon Dioxide 32 H Anion Gap 7 BUN 28 H Creatinine 0.80 Estim Creat Clear Calc 47 Estimated GFR > 60 Glucose 94 Calcium 8.4 Alpha-1-AT Phenotype See note
--- NOTE | 2024-04-10 14:17 | PCRCNOTE ---
Window of time for administration has passed. See next scheduled administration.
--- NOTE | 2024-04-10 15:11 | P.PNIM_ITS ---
Progress Note: A&P Assessment and Plan (1) Pneumothorax: Code(s): J93.9 - Pneumothorax, unspecified Status: Acute (2) MARC (obstructive sleep apnea): Code(s): G47.33 - Obstructive sleep apnea (adult) (pediatric) Status: Acute (3) Chronic respiratory failure: Qualifiers: Respiratory failure complication: hypoxia Qualified Code(s): J96.11 - Chronic respiratory failure with hypoxia Code(s): J96.10 - Chronic respiratory failure, unspecified whether with hypoxia or hypercapnia Status: Acute (4) COPD (chronic obstructive pulmonary disease): Qualifiers: COPD type: unspecified COPD Qualified Code(s): J44.9 - Chronic obstructive pulmonary disease, unspecified Code(s): J44.9 - Chronic obstructive pulmonary disease, unspecified Status: Acute (5) Closed rib fracture: Code(s): S22.39XA - Fracture of one rib, unspecified side, initial encounter for closed fracture Status: Acute (6) GERD (gastroesophageal reflux disease): Qualifiers: Esophagitis presence: without esophagitis Qualified Code(s): K21.9 - Gastro-esophageal reflux disease without esophagitis Code(s): K21.9 - Gastro-esophageal reflux disease without esophagitis Status: Acute (7) Hypothyroidism: Qualifiers: Hypothyroidism type: acquired Qualified Code(s): E03.9 - Hypothyroidism, unspecified Code(s): E03.9 - Hypothyroidism, unspecified Status: Acute (8) Hyperlipidemia: Qualifiers: Hyperlipidemia type: elevated lipoprotein(a) Qualified Code(s): E78.41 - Elevated Lipoprotein(a) Code(s): E78.5 - Hyperlipidemia, unspecified Status: Acute (9) Afib: Qualifiers: Atrial fibrillation type: unspecified Qualified Code(s): I48.91 - U nspecified atrial fibrillation Code(s): I48.91 - Unspecified atrial fibrillation Status: Acute (10) CHF (congestive heart failure): Qualifiers: Heart failure type: unspecified Heart failure chronicity: unspecified Qualified Code(s): I50.9 - Heart failure, unspecified Code(s): I50.9 - Heart failure, unspecified Status: Acute (11) Hypertension: Qualifiers: Hypertension type: primary hypertension Qualified Code(s): I10 - Essential (primary) hypertension Code(s): I10 - Essential (primary) hypertension Status: Acute Plan This is an 88-year-old female presented to the ER after ground level fall. She was getting something out of a cabinet when she lost her balance and fell backwards hitting a chair. She had pain in her right back. She then developed shortness of breath. She came to the ER to be evaluated. She denies head trauma loss of consciousness. She has been ambulatory since the incident. Patient is supposed to be on anticoagulation for atrial fibrillation but ran out of her Eliquis 4 days ago. She has been prescribed Coumadin by her senior data integration developer but has not started taking Acute pneumothorax From Fall s/p needle decompression CT chest performed which showed right-sided pneumothorax with subcutaneous air along the right anterolateral chest wall and posterior medial chest wall. s/p chest tube removed on 03/29/24 continue monitor COPD acute on chronic chronic hypoxic respiratory failure on home oxygen with acute exacerbation 03/29/2024. IV Lasix received overnight. CTA Negative for PE or pneumonia. on 6 liters oxygen continue bronchodilators monitor Pulmonology on board Diastolic heart failure with exacerbation. Echocardiogram showed EF of 60-65%, mild pulmonary hypertension, diastolic dysfunction is indeterminate CXR today showed bilateral pleural effusion and pulm edema Start Lasix 40mg bid IV monitor Acute on chronic respiratory failure Patient need 1-2 L oxygen and home mostly from CHF exacerbation now with CXR showed pleural effusion and pulm edema Continue lasix and bronchodilators as above Suspecting MARC, pending sleep study continue Apnea link tonight per Pulmonology Atrial fibrillation on amiodarone and metoprolol And warfarin 3 mg daily INR in therapeutic range Hyponatremia, resolving Likely secondary to poor oral intake and IV Lasix Provide sodium chloride 1 g b.i.d. p.o. 04/02 Increase sodium chloride to 1 g t.i.d. p.o. 04/05 Na 132 Hypothyroidism On Synthroid 75 mcg daily p.o. Hypertension Amlodipine 5 mg daily p.o. Blood pressure is controlled Hyperlipidemia On Lipitor 40 mg daily p.o. GERD Varicose vein Osteoarthritis Anticoagulation with Eliquis DVT prophylaxis currently on warfarin INR Code status full code Awaiting improvement in resp failure Subjective Date/time seen: 04/10/24 15:11 Interval history: Patient still on 6 liters oxygen, CXR showed pleural effusion and pulm edema Started Lasix 40mg IV bid For Apneal link study tonight Patient is on 1 liter oxygen at baseline Review of Systems Review of Systems: - CONSTITUTIONAL: Denies weight loss, fe rosas and chills. - HEENT: Denies changes in vision and he aring - RESPIRATORY: Reports SOB and denies c ough. - CV: Denies palpitations and reports CP . - GI: Denies abdominal pain, nausea, vom iting and diarrhea. - : Denies dysuria and urinary frequen cy. - MSK: Denies myalgia and joint pain. - SKIN: Denies rash and pruritus. - NEUROLOGICAL: Denies headache and sync ope. - PSYCHIATRIC: Denies recent changes in mood. Denies anxiety and depression. All systems reviewed & are unremarkable except as noted in HPI and below Exam Narrative: GENERAL: Pleasant, in no acute distress. Well-nourished. - EYES: EOMI. Anicteric. - HENT: Moist mucous membranes. - LUNGS: Crackles bilateral base, reduc ing. No wheezing, rhonchi, at right chest pain - CARDIOVASCULAR: Regular rate and rhyth m. No murmur. No JVD. - ABDOMEN: Soft, non-tender and non-dist ended. No palpable masses. - EXTREMITIES: No edema. Peripheral puls es 2+. Non-tender. - NEUROLOGIC: No focal neurological defi cits. CN II-XII grossly intact. - PSYCHIATRIC: Awake, Alert and oriented x 3. Appropriate mood and affect. - SKIN: No rashes or lesions. Warm. - LYMPH: No cervical lymphadenopathy. Objective Data Vital Signs Vital Signs: Vital Signs - 24 hr 04/09/24 20:10 04/09/24 21:41 04/09/24 22:50 Temperature 99.0 F Pulse Rate 95 95 Respiratory Rate 22 H 22 H 21 H Blood Pressure 107/71 Pulse Oximetry 92 92 95 Oxygen Delivery Nasal Cannula Autopap Oxygen Flow Rate 5 Fraction of Inspired Oxygen 28 04/10/24 05:57 04/10/24 09:34 04/10/24 09:34 Temperature 98.8 F Pulse Rate 107 H 107 H 107 H Respiratory Rate 16 Blood Pressure 105/79 Pulse Oximetry 95 Oxygen Delivery Oxygen Flow Rate Fraction of Inspired Oxygen Intake/Output Intake/Output: Intake & Output 04/07/24 04/08/24 04/09/24 04/10/24 23:59 23:59 23:59 23:59 Intake Total 1500 1954 1400 840 Balance 1500 1954 1400 840 Meds/Results Medications: Active Medications Generic Name Dose Route Start Last Admin Trade Name Freq PRN Reason Stop Dose Admin Acetaminophen 1,000 mg 03/28/24 09:37 04/10/24 09:40 Acetaminophen 500 Mg Tablet PO 1,000 mg Q6H PRN Administration Mild Pain (1-3) or Fever Albuterol 2.5 mg 04/01/24 10:57 Albuterol Sulfate Neb 2.5 Mg/3 Ml Inh INHALATION Q4HRT PRN Shortness Of Breath Alprazolam 0.5 mg 04/03/24 15:14 04/09/24 09:31 Alprazolam (*Crx) 0.5 Mg Tablet PO 0.5 mg TID PRN Administration Anxiety Amiodarone HCl 200 mg 03/27/24 09:00 04/10/24 09:34 Amiodarone Hcl 200 Mg Tablet PO 200 mg DAILY MIGUEL Administration Amlodipine Besylate 5 mg 03/27/24 09:00 04/10/24 09:35 Amlodipine Besylate 5 Mg Tablet BY MOUTH 5 mg DAILY MIGUEL Administration Ascorbic Acid 1,000 mg 03/27/24 09:00 04/10/24 09:33 Ascorbic Acid 500 Mg Tablet PO 1,000 mg QAM MIGUEL Administration Atorvastatin Calcium 40 mg 03/27/24 09:00 04/10/24 09:35 Atorvastatin 40 Mg Tablet PO 40 mg DAILY MIGUEL Administration Buspirone HCl 5 mg 03/27/24 09:00 04/10/24 09:35 Buspirone Hcl 5 Mg Tablet PO 5 mg BID MIGUEL Administration Calcium Carbonate 500 mg 03/27/24 09:00 04/10/24 09:33 Calcium Carbonate (Oscal) 500 Mg Tablet PO 500 mg QAM MIGUEL Administration Fluticasone/Umeclidinium/Vilanterol 1 puff 04/04/24 08:00 04/10/24 14:16 Fluticasone/Umeclidin/Vilanter 100-62.5-25 Mcg Ellipta INHALATION Not Given DAILYRT MIGUEL Furosemide 40 mg 04/10/24 15:00 Furosemide Inj 40 Mg/4 Ml Vial IV PUSH BID MIUGEL Levothyroxine Sodium 75 mcg 03/28/24 06:30 04/10/24 05:46 Levothyroxine Sodium 75 Mcg Tablet BY MOUTH 75 mcg DAILY@0630 MIGUEL Administration Lidocaine 1 patch 03/30/24 09:00 04/10/24 09:40 Lidocaine 5% Patch TRANSDERM 1 patch DAILY MIGUEL Administration Metoprolol Succinate 50 mg 03/27/24 09:00 04/10/24 09:34 Metoprolol Succinate Ext Rel 50 Mg Tabcr PO 50 mg QAM MIGUEL Administration * Home Med * 300 mg 04/14/24 09:00 Dupilumab [Dupixent SUB-Q 05/14/24 08:59 Syringe] 300 Mg/2 Ml [id number] MIGUEL Syringe Oxycodone HCl 5 mg 04/08/24 09:35 04/10/24 04:31 Oxycodone Hcl (*Crx) 5 Mg Tab Ir PO 5 mg Q4H PRN Administration Pain Rated 7-10 Potassium Chloride 20 meq 03/27/24 09:00 03/30/24 18:02 Potassium Chloride 20 Meq Er Tablet PO 20 meq BID MIGUEL Administration Senna/Docusate Sodium 2 tab 03/28/24 22:25 04/10/24 09:34 Senna/Docusate Sodium Tablet PO 2 tab BID MIGUEL Administration Sodium Chloride 2 gm 04/07/24 17:00 04/10/24 09:34 Sodium Chloride 1 Gm Tablet PO 2 gm BID MIGUEL Administration Warfarin Sodium 3 mg 03/31/24 13:46 Warfarin (*Pbkc) 3 Mg Tablet PO EVENING [facility] Radiology Results: ITS Impressions Chest CT 03/26/24 21:50 IMPRESSION: Redemonstration of a right-sided pneumothorax, approximately 15-20% in size with a right posterior medial fifth rib fracture. Head CT 03/26/24 23:09 Impression: No acute intracranial hemorrhage or suspicious mass effect. Cervical Spine CT 03/26/24 23:13 Impression: Straightening and slight reversal of the normal curvature of the cervical spine, likely muscular in origin. Significant degenerative disease, without acute fracture. Chest CTA 03/29/24 08:00 IMPRESSION: 1. Right chest tube in expected position with small right pleural effusion but no pneumothorax. 2. Mild emphysema with mild dependent atelectasis in both lungs. 3. Cardiomegaly with biatrial enlargement. 4. Enlargement of the central pulmonary arteries consistent with pulmonary arterial hypertension. 5. Recent-appearing nondisplaced fractures of the posterior right fifth and sixth ribs. Chest X-Ray 04/10/24 14:49 Impression: 1: Cardiomegaly with mild interstitial edema. 2: Bilateral pleural effusions. No significant interval change compared with 04/09/2024. Labs Labs: Laboratory Results - last 24 hr 04/04/24 04/10/24 04/10/24 07:03 07:19 08:36 WBC 10.2 H RBC 3.65 L Hgb 10.9 L Hct 34.4 L MCV 94.2 MCH 29.9 MCHC 31.7 L RDW 14.5 Plt Count 250 MPV 10.7 H Immature Gran % (Auto) 0.8 H Neut % (Auto) 79.6 H Lymph % (Auto) 4.0 L [place] % (Auto) 12.9 H Eos % (Auto) 2.3 Baso % (Auto) 0.4 Lymph # (Auto) 0.41 L [place] # (Auto) 1.3 H Eos # (Auto) 0.2 Baso # (Auto) 0.0 Abs Immat Gran (auto) 0.08 H Absolute Neuts (auto) 8.1 H Absolute Nucleated RBC 0.000 Nucleated RBC % 0.0 PT 15.9 H INR 1.2 Sodium 132 L Potassium 4.6 Chloride 93 L Carbon Dioxide 32 H Anion Gap 7 BUN 28 H Creatinine 0.80 Estim Creat Clear Calc 47 Estimated GFR > 60 Glucose 94 Calcium 8.4 Alpha-1-AT Phenotype See note
--- NOTE | 2024-04-10 16:36 | PCPTNOTE ---
On 04/10/24, the student, CARYL Clayton, provided care and completed [facility] documentation on this patient. I have reviewed the student's documentation and agree with the findings.
[2024-04-10] MEDS: FUROSEMIDE INJ 40 MG/4 ML VIAL IV PUSH (17:56)
[2024-04-11] VITALS (13 sets, daily range): BP systolic 92–139; BP diastolic 68–98; PULSE 88–110; RESP 18–24; TEMP 36.3–36.6; O2SAT 88–93
[2024-04-11] MEDS: LEVOTHYROXINE SODIUM 75 MCG TABLET BY MOUTH (05:36)
[2024-04-11] MEDS: oxyCODONE HCL (*CRX) 5 MG TAB IR PO ×2 (06:23→18:50)
--- NOTE | 2024-04-11 07:18 | PM.PNPUL ---
Progress Note: A&P Assessment and Plan (1) COPD (chronic obstructive pulmonary disease): Qualifiers: COPD type: unspecified COPD Qualified Code(s): J44.9 - Chronic obstructive pulmonary disease, unspecified Code(s): J44.9 - Chronic obstructive pulmonary disease, unspecified Status: Acute (2) Hypoxemia: Code(s): R09.02 - Hypoxemia Status: Acute (3) Chronic respiratory failure: Qualifiers: Respiratory failure complication: hypoxia Qualified Code(s): J96.11 - Chronic respiratory failure with hypoxia Code(s): J96.10 - Chronic respiratory failure, unspecified whether with hypoxia or hypercapnia Status: Acute Assessment and Plan: This 88-year-old female patient with a history of mild COPD, chronically on maintenance bronchodilators, and chronic hypoxemia managed with supplemental oxygen, has untreated sleep apnea and recent atrial fibrillation for which she is receiving treatment, including anticoagulants. She presented with shortness of breath related to a pneumothorax. Despite the resolution of the pneumothorax, she continues to experience shortness of breath related to congestive heart failure. On physical examination, she exhibits bilateral rales, jugular venous distension (JVD), and lower extremity edema despite diuresis, indicating an overall positive fluid balance. The last ApneaLink study showed mild oxyhemoglobin desaturation, with oxyhemoglobin saturation below 88% for approximately 4% of the sleep time, marking a significant improvement from the previous sleep study when she was tested on a lower oxygen flow. She continues to require supplemental oxygen but significantly less flow than before. On physical exam she continues to have wet lungs and decreased breath sounds at right base due to pleural effusion. Patient on auto CPAP and supplemental oxygen 4 L per minute had some oxyhemoglobin desaturation but much improved from the day before. She was started back on IV Lasix for congestive heart failure. As stated her respiratory issues are clearly linked to congestive heart failure, with pulmonary edema and bilateral pleural effusions. Without improvement in pulmonary congestion, she will likely continue experiencing hypoxemia, which may worsen at night due to her history of mild sleep apnea. This issue was discussed with the hospitalist. Will continue to monitor the patient's respiratory status. (4) Acute on chronic hypoxic respiratory failure: Code(s): J96.21 - Acute and chronic respiratory failure with hypoxia Status: Acute (5) MARC (obstructive sleep apnea): Code(s): G47.33 - Obstructive sleep apnea (adult) (pediatric) Status: Acute (6) CHF (congestive heart failure): Qualifiers: Heart failure type: unspecified Heart failure chronicity: unspecified Qualified Code(s): I50.9 - Heart failure, unspecified Code(s): I50.9 - Heart failure, unspecified Status: Acute (7) Afib: Qualifiers: Atrial fibrillation type: unspecified Qualified Code(s): I48.91 - Unspecified atrial fibrillation Code(s): I48.91 - Unspecified atrial fibrillation Status: Acute Subjective Date/time seen: 04/11/24 07:18 Interval history: A patient used auto CPAP and oxygen 4 liters/minute last night. Currently on supplemental oxygen. Complaining of some shortness of breath but no other respiratory symptoms. She has no fever chills hemoptysis. She has no orthopnea. Review of Systems Review of Systems: All systems reviewed & are unremarkable except as noted in HPI and below (HPI and below) Exam Narrative: GENERAL APPEARANCE: Well developed, well nourished, alert and cooperative, and appears to be in mild respiratory distress while on supplemental oxygen SKIN: Inspection of the skin reveals no rashes, ulcerations or petechiae. HEENT: Sclerae anicteric and conjunctivae pink and moist. Extraocular movements were intact and pupils were equal, round. Dry oral mucosa. NECK: Supple. JVD present. There was no thyroid enlargement, and no tenderness, or masses were felt. LUNGS: Crackles bilaterally no wheezing CARDIAC: There was irregular rate and rhythm without any murmurs, gallops, rubs. ABDOMEN: Soft and nontender with normal bowel sounds. There was no organomegaly. LYMPH NODES: No lymphadenopathy was appreciated in the neck, axillae or groin. EXTREMITIES: No cyanosis, clubbing. 2+ edema. NEUROLOGIC: Alert. Normal affect. Objective Data Vital Signs Vital Signs: Vital Signs - 24 hr 04/10/24 09:34 04/10/24 09:34 04/10/24 09:40 Temperature Pulse Rate 107 H 107 H Respiratory Rate Blood Pressure Pulse Oximetry 90 Oxygen Delivery Nasal Cannula Oxygen Flow Rate 5 Fraction of Inspired Oxygen 04/10/24 14:00 04/10/24 20:00 04/10/24 21:11 Temperature 37.2 C 36.7 C Pulse Rate 97 84 84 Respiratory Rate 18 16 16 Blood Pressure 104/63 133/74 Pulse Oximetry 90 92 92 Oxygen Delivery Nasal Cannula Oxygen Flow Rate 5 Fraction of Inspired Oxygen 28 04/10/24 23:50 04/10/24 23:50 04/11/24 05:58 Temperature 36.3 C L Pulse Rate 86 91 Respiratory Rate 24 H 22 H Blood Pressure 129/73 Pulse Oximetry 93 93 92 Oxygen Delivery Autopap CPAP Oxygen Flow Rate 4 Fraction of Inspired Oxygen Intake/Output Intake/Output: Intake & Output 04/08/24 04/09/24 04/10/24 04/11/24 23:59 23:59 23:59 23:59 Intake Total 1954 1400 1320 550 Output Total 500 Balance 1954 1400 820 550 Meds/Results Medications: Active Medications Generic Name Dose Route Start Last Admin Trade Name Freq PRN Reason Stop Dose Admin Acetaminophen 1,000 mg 03/28/24 09:37 04/10/24 09:40 Acetaminophen 500 Mg Tablet PO 1,000 mg Q6H PRN Administration Mild Pain (1-3) or Fever Albuterol 2.5 mg 04/01/24 10:57 Albuterol Sulfate Neb 2.5 Mg/3 Ml Inh INHALATION Q4HRT PRN Shortness Of Breath Alprazolam 0.5 mg 04/03/24 15:14 04/09/24 09:31 Alprazolam (*Crx) 0.5 Mg Tablet PO 0.5 mg TID PRN Administration Anxiety Amiodarone HCl 200 mg 03/27/24 09:00 04/10/24 09:34 Amiodarone Hcl 200 Mg Tablet PO 200 mg DAILY MIGUEL Administration Amlodipine Besylate 5 mg 03/27/24 09:00 04/10/24 09:35 Amlodipine Besylate 5 Mg Tablet BY MOUTH 5 mg DAILY MIGUEL Administration Ascorbic Acid 1,000 mg 03/27/24 09:00 04/10/24 09:33 Ascorbic Acid 500 Mg Tablet PO 1,000 mg QAM MIGUEL Administration Atorvastatin Calcium 40 mg 03/27/24 09:00 04/10/24 09:35 Atorvastatin 40 Mg Tablet PO 40 mg DAILY MIGUEL Administration Buspirone HCl 5 mg 03/27/24 09:00 04/10/24 17:56 Buspirone Hcl 5 Mg Tablet PO 5 mg BID MIGUEL Administration Calcium Carbonate 500 mg 03/27/24 09:00 04/10/24 09:33 Calcium Carbonate (Oscal) 500 Mg Tablet PO 500 mg QAM MIGUEL Administration Fluticasone/Umeclidinium/Vilanterol 1 puff 04/04/24 08:00 04/10/24 14:16 Fluticasone/Umeclidin/Vilanter 100-62.5-25 Mcg Ellipta INHALATION Not Given DAILYRT [facility] Furosemide 40 mg 04/10/24 17:00 04/10/24 17:56 Furosemide Inj 40 Mg/4 Ml Vial IV PUSH 40 mg BID MIGUEL Administration Levothyroxine Sodium 75 mcg 03/28/24 06:30 04/11/24 05:36 Levothyroxine Sodium 75 Mcg Tablet BY MOUTH 75 mcg DAILY@0630 MIGUEL Administration Lidocaine 1 patch 03/30/24 09:00 04/10/24 09:40 Lidocaine 5% Patch TRANSDERM 1 patch DAILY MIGUEL Administration Metoprolol Succinate 50 mg 03/27/24 09:00 04/10/24 09:34 Metoprolol Succinate Ext Rel 50 Mg Tabcr PO 50 mg QAM MIGUEL Administration * Home Med * 300 mg 04/14/24 09:00 Dupilumab [Dupixent SUB-Q 05/14/24 08:59 Syringe] 300 Mg/2 Ml [id number] [facility] Syringe Oxycodone HCl 5 mg 04/08/24 09:35 04/11/24 06:23 Oxycodone Hcl (*Crx) 5 Mg Tab Ir PO 5 mg Q4H PRN Administration Pain Rated 7-10 Potassium Chloride 20 meq 03/27/24 09:00 03/30/24 18:02 Potassium Chloride 20 Meq Er Tablet PO 20 meq BID MIGUEL Administration Senna/Docusate Sodium 2 tab 03/28/24 22:25 04/10/24 17:56 Senna/Docusate Sodium Tablet PO 2 tab BID MIGUEL Administration Sodium Chloride 2 gm 04/07/24 17:00 04/10/24 17:56 Sodium Chloride 1 Gm Tablet PO 2 gm BID MIGUEL Administration Warfarin Sodium 3 mg 03/31/24 13:46 Warfarin (*Pbkc) 3 Mg Tablet PO EVENING [facility] Radiology Results: ITS Impressions Chest CT 03/26/24 21:50 IMPRESSION: Redemonstration of a right-sided pneumothorax, approximately 15-20% in size with a right posterior medial fifth rib fracture. Head CT 03/26/24 23:09 Impression: No acute intracranial hemorrhage or suspicious mass effect. Cervical Spine CT 03/26/24 23:13 Impression: Straightening and slight reversal of the normal curvature of the cervical spine, likely muscular in origin. Significant degenerative disease, without acute fracture. Chest CTA 03/29/24 08:00 IMPRESSION: 1. Right chest tube in expected position with small right pleural effusion but no pneumothorax. 2. Mild emphysema with mild dependent atelectasis in both lungs. 3. Cardiomegaly with biatrial enlargement. 4. Enlargement of the central pulmonary arteries consistent with pulmonary arterial hypertension. 5. Recent-appearing nondisplaced fractures of the posterior right fifth and sixth ribs. Chest X-Ray 04/10/24 14:49 Impression: 1: Cardiomegaly with mild interstitial edema. 2: Bilateral pleural effusions. No significant interval change compared with 04/09/2024. Labs Labs: Laboratory Results - last 24 hr 04/10/24 04/10/24 07:19 08:36 WBC 10.2 H RBC 3.65 L Hgb 10.9 L Hct 34.4 L MCV 94.2 MCH 29.9 MCHC 31.7 L RDW 14.5 Plt Count 250 MPV 10.7 H Immature Gran % (Auto) 0.8 H Neut % (Auto) 79.6 H Lymph % (Auto) 4.0 L [place] % (Auto) 12.9 H Eos % (Auto) 2.3 Baso % (Auto) 0.4 Lymph # (Auto) 0.41 L [place] # (Auto) 1.3 H Eos # (Auto) 0.2 Baso # (Auto) 0.0 Abs Immat Gran (auto) 0.08 H Absolute Neuts (auto) 8.1 H Absolute Nucleated RBC 0.000 Nucleated RBC % 0.0 PT 15.9 H INR 1.2 Sodium 132 L Potassium 4.6 Chloride 93 L Carbon Dioxide 32 H Anion Gap 7 BUN 28 H Creatinine 0.80 Estim Creat Clear Calc 47 Estimated GFR > 60 Glucose 94 Calcium 8.4
[2024-04-11 07:40] LABS: Basophils Percent Auto 0.4 % (0.2-1.2); Eosinophils Absolute Auto 0.3 K/mm3 (0-0.3); Eosinophils Percent Auto 2.7 % (0-4.4); Hematocrit 34.9 % (37.0-47.0); Hemoglobin 10.9 g/dL (12.0-15.0); Immature Granulocyte Absolute 0.06 K/mm3 (0.00-0.031); Immature Granulocyte Percent A 0.6 % (0-0.5); Lymphocytes Absolute Auto 0.46 K/mm3 (0.9-3.2); Lymphocytes Percent Auto 4.7 % (18.3-44.2); Mean Corpuscular HGB Conc 31.2 g/dl (32-36); Mean Corpuscular Hemoglobin 29.3 pg (26-34); Mean Corpuscular Volume 93.8 fl (80-100); Mean Platelet Volume 11.2 fl (7.4-10.4); Monocytes Absolute Auto 1.3 K/mm3 (0.1-0.6); Monocytes Percent Auto 12.8 % (2.6-8.5); Neutrophils Absolute Auto 7.7 K/mm3 (1.3-6.7); Neutrophils Percent Auto 78.8 % (45.5-73.1); Platelet Count Result 262 k/mm3 (150-375); Red Blood Count 3.72 M/mm3 (4.2-5.4); Red Cell Distribution Width 14.5 % (11.5-14.5); White Blood Count 9.7 K/mm3 (4.5-10.0)
[2024-04-11 07:49] LABS: Alanine Aminotransferase 21 U/L (6-35); Albumin Level 3.6 g/dL (3.5-5.1); Alkaline Phosphatase 128 U/L (38-126); Anion Gap 8 mmol/L (4-12); Aspartate Amino Transferase 23 U/L (14-36); Bilirubin,Total 0.8 mg/dL (0.2-1.3); Blood Urea Nitrogen 32 mg/dL (7-17); Calcium 8.7 mg/dL (8.4-10.2); Carbon Dioxide 32 mmol/L (22-30); Chloride 93 mmol/L (98-107); Estimated CRCL calculation 46 ml/min; Estimated Glomerular Filt Rate > 60; Glucose 92 mg/dL (65-110); Magnesium 1.8 mg/dL (1.6-2.3); Potassium 4.4 mmol/L (3.4-5.0); Sodium 133 mmol/L (137-145)
[2024-04-11] MEDS: ALBUTEROL SULFATE NEB 2.5 MG/3 ML INH INHALATION (07:51)
[2024-04-11] MEDS: FLUTICASONE/UMECLIDIN/VILANTER 100-62.5-25 MCG ELLIPTA 1 PUFF INHALATION (08:08)
[2024-04-11 08:54] LABS: INR 1.3; Prothrombin Time 16.5 Seconds (11.1-14.7)
--- NOTE | 2024-04-11 09:27 | P.PNIM_ITS ---
Progress Note: A&P Assessment and Plan (1) Pneumothorax: Code(s): J93.9 - Pneumothorax, unspecified Status: Acute (2) MARC (obstructive sleep apnea): Code(s): G47.33 - Obstructive sleep apnea (adult) (pediatric) Status: Acute (3) Chronic respiratory failure: Qualifiers: Respiratory failure complication: hypoxia Qualified Code(s): J96.11 - Chronic respiratory failure with hypoxia Code(s): J96.10 - Chronic respiratory failure, unspecified whether with hypoxia or hypercapnia Status: Acute (4) COPD (chronic obstructive pulmonary disease): Qualifiers: COPD type: unspecified COPD Qualified Code(s): J44.9 - Chronic obstructive pulmonary disease, unspecified Code(s): J44.9 - Chronic obstructive pulmonary disease, unspecified Status: Acute (5) Closed rib fracture: Code(s): S22.39XA - Fracture of one rib, unspecified side, initial encounter for closed fracture Status: Acute (6) GERD (gastroesophageal reflux disease): Qualifiers: Esophagitis presence: without esophagitis Qualified Code(s): K21.9 - Gastro-esophageal reflux disease without esophagitis Code(s): K21.9 - Gastro-esophageal reflux disease without esophagitis Status: Acute (7) Hypothyroidism: Qualifiers: Hypothyroidism type: acquired Qualified Code(s): E03.9 - Hypothyroidism, unspecified Code(s): E03.9 - Hypothyroidism, unspecified Status: Acute (8) Hyperlipidemia: Qualifiers: Hyperlipidemia type: elevated lipoprotein(a) Qualified Code(s): E78.41 - Elevated Lipoprotein(a) Code(s): E78.5 - Hyperlipidemia, unspecified Status: Acute (9) Afib: Qualifiers: Atrial fibrillation type: unspecified Qualified Code(s): I48.91 - U nspecified atrial fibrillation Code(s): I48.91 - Unspecified atrial fibrillation Status: Acute (10) CHF (congestive heart failure): Qualifiers: Heart failure type: unspecified Heart failure chronicity: unspecified Qualified Code(s): I50.9 - Heart failure, unspecified Code(s): I50.9 - Heart failure, unspecified Status: Acute (11) Hypertension: Qualifiers: Hypertension type: primary hypertension Qualified Code(s): I10 - Essential (primary) hypertension Code(s): I10 - Essential (primary) hypertension Status: Acute Plan This is an 88-year-old female presented to the ER after ground level fall. She was getting something out of a cabinet when she lost her balance and fell backwards hitting a chair. She had pain in her right back. She then developed shortness of breath. She came to the ER to be evaluated. She denies head trauma loss of consciousness. She has been ambulatory since the incident. Patient is supposed to be on anticoagulation for atrial fibrillation but ran out of her Eliquis 4 days ago. 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 s/p chest tube removed on 03/29/24 continue monitor COPD acute on chronic chronic hypoxic respiratory failure on home oxygen with acute exacerbation 03/29/2024. IV Lasix received overnight. CTA Negative for PE or pneumonia. on 5 liters oxygen continue bronchodilators monitor Pulmonology on board Diastolic heart failure with exacerbation. Echocardiogram showed EF of 60-65%, mild pulmonary hypertension, diastolic dysfunction is indeterminate CXR today showed bilateral pleural effusion and pulm edema Start Lasix 40mg bid IV monitor Acute on chronic respiratory failure Patient need 1-2 L oxygen and home mostly from CHF exacerbation now with CXR showed pleural effusion and pulm edema Continue lasix and bronchodilators as above Suspecting MARC, Apnea link done last night continue Apnea link tonight per Pulmonology Atrial fibrillation on amiodarone and metoprolol And warfarin 3 mg daily INR in therapeutic range Hyponatremia, resolving Likely secondary to poor oral intake and IV Lasix Provide sodium chloride 1 g b.i.d. p.o. 04/02 Increase sodium chloride to 1 g t.i.d. p.o. 04/05 Na 133 Hypothyroidism On Synthroid 75 mcg daily p.o. Hypertension Amlodipine 5 mg daily p.o. Blood pressure is controlled Hyperlipidemia On Lipitor 40 mg daily p.o. GERD Varicose vein Osteoarthritis DVT prophylaxis currently on warfarin INR Code status full code Awaiting improvement in resp failure Subjective Date/time seen: 04/11/24 09:27 Interval history: Patient comfortable at bedside still having SOB and on 5 liters oxygen this morning Review of Systems Review of Systems: - CONSTITUTIONAL: Denies weight loss, fe rosas and chills. - HEENT: Denies changes in vision and he aring - RESPIRATORY: Reports SOB and denies c ough. - CV: Denies palpitations and reports CP . - GI: Denies abdominal pain, nausea, vom iting and diarrhea. - : Denies dysuria and urinary frequen cy. - MSK: Denies myalgia and joint pain. - SKIN: Denies rash and pruritus. - NEUROLOGICAL: Denies headache and sync ope. - PSYCHIATRIC: Denies recent changes in mood. Denies anxiety and depression. All systems reviewed & are unremarkable except as noted in HPI and below Exam Narrative: GENERAL: Pleasant, in no acute distress. Well-nourished. - EYES: EOMI. Anicteric. - HENT: Moist mucous membranes. - LUNGS: Crackles bilateral base, reduc ing. No wheezing, rhonchi, at right chest pain - CARDIOVASCULAR: Regular rate and rhyth m. No murmur. No JVD. - ABDOMEN: Soft, non-tender and non-dist ended. No palpable masses. - EXTREMITIES: No edema. Peripheral puls es 2+. Non-tender. - NEUROLOGIC: No focal neurological defi cits. CN II-XII grossly intact. - PSYCHIATRIC: Awake, Alert and oriented x 3. Appropriate mood and affect. - SKIN: No rashes or lesions. Warm. - LYMPH: No cervical lymphadenopathy. Objective Data Vital Signs Vital Signs: Vital Signs - 24 hr 04/10/24 09:34 04/10/24 09:34 04/10/24 09:40 Temperature Pulse Rate 107 H 107 H Respiratory Rate Blood Pressure Pulse Oximetry 90 Oxygen Delivery Nasal Cannula Oxygen Flow Rate 5 Fraction of Inspired Oxygen 04/10/24 14:00 04/10/24 20:00 04/10/24 21:11 Temperature 98.9 F 98.0 F Pulse Rate 97 84 84 Respiratory Rate 18 16 16 Blood Pressure 104/63 133/74 Pulse Oximetry 90 92 92 Oxygen Delivery Nasal Cannula Oxygen Flow Rate 5 Fraction of Inspired Oxygen 28 04/10/24 23:50 04/10/24 23:50 04/11/24 05:58 Temperature 97.4 F L Pulse Rate 86 91 Respiratory Rate 24 H 22 H Blood Pressure 129/73 Pulse Oximetry 93 93 92 Oxygen Delivery Autopap CPAP Oxygen Flow Rate 4 Fraction of Inspired Oxygen 04/11/24 07:53 04/11/24 07:53 Temperature Pulse Rate 108 H Respiratory Rate 24 H Blood Pressure Pulse Oximetry 92 Oxygen Delivery Nasal Cannula Oxygen Flow Rate 5 Fraction of Inspired Oxygen Intake/Output Intake/Output: Intake & Output 04/08/24 04/09/24 04/10/24 04/11/24 23:59 23:59 23:59 23:59 Intake Total 1954 1400 1320 790 Output Total 500 Balance 1954 1400 820 790 Meds/Results Medications: Active Medications Generic Name Dose Route Start Last Admin Trade Name Freq PRN Reason Stop Dose Admin Acetaminophen 1,000 mg 03/28/24 09:37 04/10/24 09:40 Acetaminophen 500 Mg Tablet PO 1,000 mg Q6H PRN Administration Mild Pain (1-3) or Fever Albuterol/Ipratropium 3 ml 04/11/24 12:00 Ipratropium 0.5 Mg/Albuterol Sulfate 2.5 Mg Ampul.Neb 3 Ml INHALATION Q4HRT [facility] Alprazolam 0.5 mg 04/03/24 15:14 04/09/24 09:31 Alprazolam (*Crx) 0.5 Mg Tablet PO 0.5 mg TID PRN Administration Anxiety Amiodarone HCl 200 mg 03/27/24 09:00 04/10/24 09:34 Amiodarone Hcl 200 Mg Tablet PO 200 mg DAILY MIGUEL Administration Amlodipine Besylate 5 mg 03/27/24 09:00 04/10/24 09:35 Amlodipine Besylate 5 Mg Tablet BY MOUTH 5 mg DAILY MIGUEL Administration Ascorbic Acid 1,000 mg 03/27/24 09:00 04/10/24 09:33 Ascorbic Acid 500 Mg Tablet PO 1,000 mg QAM MIGULE Administration Atorvastatin Calcium 40 mg 03/27/24 09:00 04/10/24 09:35 Atorvastatin 40 Mg Tablet PO 40 mg DAILY MIGUEL Administration Buspirone HCl 5 mg 03/27/24 09:00 04/10/24 17:56 Buspirone Hcl 5 Mg Tablet PO 5 mg BID MIGUEL Administration Calcium Carbonate 500 mg 03/27/24 09:00 04/10/24 09:33 Calcium Carbonate (Oscal) 500 Mg Tablet PO 500 mg QAM MIGUEL Administration Fluticasone/Umeclidinium/Vilanterol 1 puff 04/04/24 08:00 04/11/24 08:08 Fluticasone/Umeclidin/Vilanter 100-62.5-25 Mcg Ellipta INHALATION 1 puff DAILYRT MIGUEL Administration Furosemide 40 mg 04/10/24 17:00 04/10/24 17:56 Furosemide Inj 40 Mg/4 Ml Vial IV PUSH 40 mg BID MIGUEL Administration Levothyroxine Sodium 75 mcg 03/28/24 06:30 04/11/24 05:36 Levothyroxine Sodium 75 Mcg Tablet BY MOUTH 75 mcg DAILY@0630 MIGUEL Administration Lidocaine 1 patch 03/30/24 09:00 04/10/24 09:40 Lidocaine 5% Patch TRANSDERM 1 patch DAILY MIGUEL Administration Metoprolol Succinate 50 mg 03/27/24 09:00 04/10/24 09:34 Metoprolol Succinate Ext Rel 50 Mg Tabcr PO 50 mg QAM MIGUEL Administration * Home Med * 300 mg 04/14/24 09:00 Dupilumab [Dupixent SUB-Q 05/14/24 08:59 Syringe] 300 Mg/2 Ml [id number] [facility] Syringe Oxycodone HCl 5 mg 04/08/24 09:35 04/11/24 06:23 Oxycodone Hcl (*Crx) 5 Mg Tab Ir PO 5 mg Q4H PRN Administration Pain Rated 7-10 Potassium Chloride 20 meq 03/27/24 09:00 03/30/24 18:02 Potassium Chloride 20 Meq Er Tablet PO 20 meq BID MIGUEL Administration Senna/Docusate Sodium 2 tab 03/28/24 22:25 04/10/24 17:56 Senna/Docusate Sodium Tablet PO 2 tab BID MIGUEL Administration Sodium Chloride 2 gm 04/07/24 17:00 04/10/24 17:56 Sodium Chloride 1 Gm Tablet PO 2 gm BID MIGUEL Administration Warfarin Sodium 3 mg 03/31/24 13:46 Warfarin (*Pbkc) 3 Mg Tablet PO EVENING [facility] Radiology Results: ITS Impressions Chest CT 03/26/24 21:50 IMPRESSION: Redemonstration of a right-sided pneumothorax, approximately 15-20% in size with a right posterior medial fifth rib fracture. Head CT 03/26/24 23:09 Impression: No acute intracranial hemorrhage or suspicious mass effect. Cervical Spine CT 03/26/24 23:13 Impression: Straightening and slight reversal of the normal curvature of the cervical spine, likely muscular in origin. Significant degenerative disease, without acute fracture. Chest CTA 03/29/24 08:00 IMPRESSION: 1. Right chest tube in expected position with small right pleural effusion but no pneumothorax. 2. Mild emphysema with mild dependent atelectasis in both lungs. 3. Cardiomegaly with biatrial enlargement. 4. Enlargement of the central pulmonary arteries consistent with pulmonary arterial hypertension. 5. Recent-appearing nondisplaced fractures of the posterior right fifth and sixth ribs. Chest X-Ray 04/10/24 14:49 Impression: 1: Cardiomegaly with mild interstitial edema. 2: Bilateral pleural effusions. No significant interval change compared with 04/09/2024. Labs Labs: Laboratory Results - last 24 hr 04/11/24 07:02 WBC 9.7 RBC 3.72 L Hgb 10.9 L Hct 34.9 L MCV 93.8 MCH 29.3 MCHC 31.2 L RDW 14.5 Plt Count 262 MPV 11.2 H Immature Gran % (Auto) 0.6 H Neut % (Auto) 78.8 H Lymph % (Auto) 4.7 L [place] % (Auto) 12.8 H Eos % (Auto) 2.7 Baso % (Auto) 0.4 Lymph # (Auto) 0.46 L [place] # (Auto) 1.3 H Eos # (Auto) 0.3 Baso # (Auto) 0.0 Abs Immat Gran (auto) 0.06 H Absolute Neuts (auto) 7.7 H Absolute Nucleated RBC 0.000 Nucleated RBC % 0.0 PT 16.5 H INR 1.3 Sodium 133 L Potassium 4.4 Chloride 93 L Carbon Dioxide 32 H Anion Gap 8 BUN 32 H Creatinine 0.83 Estim Creat Clear Calc 46 Estimated GFR > 60 Glucose 92 Calcium 8.7 Magnesium 1.8 Total Bilirubin 0.8 AST 23 ALT 21 Alkaline Phosphatase 128 H Total Protein 7.0 Albumin 3.6
[2024-04-11] MEDS: FUROSEMIDE INJ 40 MG/4 ML VIAL IV PUSH ×2 (09:34→16:57)
[2024-04-11] MEDS: SENNA/DOCUSATE SODIUM TABLET 2 TAB PO ×2 (09:34→16:57)
[2024-04-11] MEDS: LIDOCAINE 5% PATCH 1 PATCH TRANSDERM (09:34)
[2024-04-11] MEDS: METOPROLOL SUCCINATE EXT REL 50 MG TABCR PO (09:35)
[2024-04-11] MEDS: ATORVASTATIN 40 MG TABLET PO (09:35)
[2024-04-11] MEDS: amLODIPine BESYLATE 5 MG TABLET BY MOUTH (09:35)
[2024-04-11] MEDS: AMIODARONE HCL 200 MG TABLET PO (09:35)
[2024-04-11] MEDS: SODIUM CHLORIDE 1 GM TABLET 2 GM PO ×2 (09:35→16:57)
[2024-04-11] MEDS: ASCORBIC ACID 500 MG TABLET 1000 MG PO (09:36)
[2024-04-11] MEDS: CALCIUM CARBONATE (OSCAL) 500 MG TABLET PO (09:36)
[2024-04-11] MEDS: busPIRone HCL 5 MG TABLET PO ×2 (09:36→16:57)
[2024-04-11] MEDS: ACETAMINOPHEN 500 MG TABLET 1000 MG PO (09:44)
[2024-04-11] MEDS: IPRATROPIUM 0.5 MG/ALBUTEROL SULFATE 2.5 MG AMPUL.NEB 3 ML INHALATION ×3 (11:30→20:26)
[2024-04-11] MEDS: FLUTICASONE/SALMETEROL 45-21 MCG INHALER 1 PUFF 2 PUFF INHALATION (20:26)
[2024-04-11 22:26] LABS: Alveolar/Arterial O2 Gradient 258.7 mmHg; Base Excess ABG 4.6 mEq/l (+/-2.0); Carboxyhemoglobin 0.4 % THb (0-2.0); Fractional Inspired Oxygen 52 %; HCO3 ABG 30.2 mEq/l (22.0-26.0); Methemoglobin ABG 0.3 %THb (0-1.5); Oxygen Content ABG 14.1 %vol (16.0-22.0); Oxygen Saturation ABG 89.1 % (95.0-100.0); Oxyhemoglobin 89.2 % THb (90.0-100.0); PCO2 ABG 49.6 mmHg (35.0-45.0); PO2 ABG 56.5 mmHg (80.0-100.0); PO2 FiO2 Ratio Arterial Blood 1.09 %; Reduced Hemoglobin 10.1 %THb (0-5.0); Total Hemoglobin 11.2 g/dL (12.0-18.0); pH ABG 7.402 (7.350-7.450)
[2024-04-11 22:27] LABS: Device HIGH FLOW NASAL CANN; Modified Allen's Test Pass; Site Drawn RIGHT RADIAL
--- NOTE | 2024-04-11 22:48 | ECG_ITS ---
Test Date: 2024-04-11 23:03:49 Measurements Intervals [facility] Rate: 112 P: 0 CO: 0 QRS: 24 QRSD: 97 T: 204 QT: 312 QTc: 426 Interpretive Statements ATRIAL FIBRILLATION WITH RAPID VENTRICULAR RESPONSE DELAYED PRECORDIAL R/S TRANSITION LOW QRS VOLTAGE IN LIMB LEADS NONSPECIFIC ST & T-WAVE ABNORMALITY- ANTEROLATERAL LEADS BASELINE ARTIFACT- I, II, III, AVR, AVL, AVF, V3-V6 ABNORMAL ECG Compared to ECG 03/29/2024 04:17:48 NO SIGNIFICANT CHANGE Electronically Signed On 04-12-2024 06:57:02 [employer]ATION CONTROL TECHNICIAN by Shabbir Ann D.O.
--- NOTE | 2024-04-11 23:31 | PM.EVENT ---
Event Note Event Note Event Note: S: Patient has increasing oxygen requirements. Chest x-ray today shows unchanged small bilateral pleural effusion with associated bibasilar atelectasis and/or pneumonia and cardiomegaly. She was started on furosemide 40 mg b.i.d. for possible volume overload though her urine output has not been great. She is also receiving nebulizer treatments every 4 hours with some benefit. At the of time my evaluation she states her shortness of breath is stable of worse than her baseline and is much worse with exertion. She denies chest and pleuritic pain, palpitations, cough, postnasal drip, and calf pain. O: Patient is nontoxic in appearance. She is on 7 L high-flow. Respiratory rate is in the low 20s with mild conversational dyspnea, speaking in 5 to 6 word sentences. Lung sounds are diminished with expiratory wheezing, more in the upper lobes. She is currently in atrial fibrillation with rates in the low 100s. Mild edema of the right ankle, 2+ pitting edema of the left ankle. Negative Shana sign bilaterally. A/P: Increasing oxygen requirements. She was started on furosemide 40 mg b.i.d. today however her urine output has not been much. Cumulative I/O states 15 L however seems quite high and [place] 75859 mL. Continue diuretics and scheduled DuoNebs for now. She now has some wheezing and may benefit from steroids though will re-evaluate in the morning. Continue incentive spirometer and CPT. Pulmonary embolism is considered however a chest CTA on 03/29/2024 was negative for PE. Her warfarin had been on hold, presumably due to the fact that she had a chest tube in place, and her INR has been subtherapeutic for about 5 days. With her significant left lower extremity swelling, will give her a 1 time dose of therapeutic Lovenox 1 mg/kg pending lower extremity venous Doppler ultrasounds. Consider resuming warfarin tomorrow. Critical Care Time Critical Care Time: Yes Total Critical Care Time: 30 Attestation: Due to a high probability of clinically significant, life threatening deterioration, the patient required my highest level of preparedness to intervene emergently and I personally spent this critical care time directly and personally managing the patient. This critical care time included obtaining a history; examining the patient; pulse oximetry; ordering and review of studies; arranging urgent treatment with development of a management plan; evaluation of patient's response to treatment; frequent reassessment; and discussions with other providers. It was exclusive of separately billable procedures and treating other patients and teaching time. Please see Assessment and Plan section and the rest of the note for further information on patient assessment and treatment.
[2024-04-12] VITALS (31 sets, daily range): BP systolic 90–149; BP diastolic 52–82; PULSE 101–133; RESP 18–27; TEMP 36.4–37.1; O2SAT 92–99
[2024-04-12] MEDS: ENOXAPARIN 100 MG/ML SYRINGE SUB-Q (00:14)
[2024-04-12] MEDS: IPRATROPIUM BR 0.02% INH SOLN 0.5 MG/2.5 ML VIAL INHALATION ×4 (00:43→19:54)
[2024-04-12] MEDS: LEVALBUTEROL NEB 1.25 MG/3 ML 0.63 MG INHALATION ×4 (00:43→19:55)
--- NOTE | 2024-04-12 03:45 | PM.EVENT ---
Event Note Event Note Event Note: 04/12/2024 at 03:00 Subjective: Patient had been evaluated by the mid shift provider earlier in the evening due to increased oxygen requirement. The patient's head increased requirement up to 7 L high-flow despite being on b.i.d. Lasix for possible volume overload. Patient's urine output had not been great but strict I&O's had not been measured. This made true output difficult to assess since patient had reportedly had 15 L positive but on exam she appeared have dry mucous membranes but some peripheral edema. She was on nebulizer treatments every 4 hours in reported minimal improvement with nebulizers. The patient had some wheezing at the time of the mid-level provider's evaluation. Nursing staff called me to re-evaluate the patient as the patient had continued increase in oxygen requirement since prior evaluation and was up to 10 L high-flow nasal cannula to maintain oxygen saturations of 90%. She was having increased work of breathing with respiratory rate ranging from 25-28. She reported worsening shortness of breath since prior evaluation. Her nonproductive cough had remained stable. She was noted to have some lower extremity swelling earlier in the evening in a venous Doppler was ordered to rule out DVT and she was given 1 dose of therapeutic Lovenox. Objective: GENERAL: Obese, acutely ill-appearing HEENT: Mucous membranes are tacky, no oral pharyngeal erythema, head is normocephalic atraumatic CARDIOVASCULAR: Irregularly irregular, intermittently tachycardic with heart rates ranging between upper 90s to brief episodes of heart rates up to 120 but nonsustained RESPIRATORY: Abdominal respirations, tachypnea, high-pitched S squeaking breath sounds of the left upper lobe, decreased breath sounds of the lower lobes bilaterally ABDOMEN: Distended, nontender, hyperactive bowel sounds INTEGUMENT: Cool to touch, non jaundice, positive pallor NEUROLOGIC: Alert oriented x4, speech is clear, no facial asymmetry PSYCHIATRIC: Appropriately anxious, intact judgment and insight EXTREMITIES: No clubbing, no cyanosis, asymmetric lower extremity swelling left greater than right : Pure wick catheter in place Assessment and plan: Acute hypoxic respiratory failure--worsening acute hypoxic respiratory failure I suspect due to acute COPD exacerbation. The patient had significant decreased breath sounds in high-pitched wheezing of the left lung with on most absent breath sounds at the right lung, chest x-ray from multiple prior days reviewed. She was given 1 dose of IV Solu-Medrol. She had a prior order for auto titrating BiPAP but had refused BiPAP as she did not think she could tolerated at that time. She was transferred to IMU status (ICU bed due to bed availability). She was placed on Airvo, she was not interested in BiPAP at that time, and given an hour long nebulizer treatment with Xopenex and Atrovent. She was also given 1 time dose of IV Solu-Medrol 125 mg [place] through her nebulizer treatment she had significant improvement in air movement. She reported modest improvement in shortness of breath. Heart rate and blood pressures were stable. She is on Airvo 60 L and 90% FiO2 with improvement in oxygen saturations to 97%. Will repeat CBC, BMP and chest x-ray in a.m.. 45 minutes was spent in critical care activities. Due to a high probability of clinically significant, life threatening deterioration, the patient required my highest level of preparedness to intervene emergently and I personally spent this critical care time directly and personally managing the patient. This critical care time included obtaining a history; examining the patient; pulse oximetry; ordering and review of studies; arranging urgent treatment with development of a management plan; evaluation of patient's response to treatment; frequent reassessment; and discussions with other providers. It was exclusive of separately billable procedures and treating other patients and teaching time. Please see Assessment and Plan section and the rest of the note for further information on patient assessment and treatment.
[2024-04-12] MEDS: LEVALBUTEROL NEB 1.25 MG/3 ML 3.75 MG INHALATION (04:30)
[2024-04-12] MEDS: IPRATROPIUM BR 0.02% INH SOLN 0.5 MG/2.5 ML VIAL 1.5 MG INHALATION (04:30)
--- NOTE | 2024-04-12 04:37 | PC.NURSE ---
Patient was moved with belongings to ICU 6. 3 members of the family came for moral support. Report was given to Veronica White
--- NOTE | 2024-04-12 05:38 | PC.NURSE ---
This patient, Kanchan Abbott, was received from [facility] on 04/12/24 at 0430 to ICU-6 as an IMU overflow. Patient/family oriented to unit policies and routines.
[2024-04-12] MEDS: methylPREDNISolone SOD SUCC 125 MG VIAL IV PUSH (05:39)
[2024-04-12] MEDS: LEVOTHYROXINE SODIUM 75 MCG TABLET BY MOUTH (06:55)
[2024-04-12 08:18] LABS: INR 1.4; Prothrombin Time 17.4 Seconds (11.1-14.7)
[2024-04-12] MEDS: FLUTICASONE/UMECLIDIN/VILANTER 100-62.5-25 MCG ELLIPTA 1 PUFF INHALATION (08:18)
[2024-04-12] MEDS: FLUTICASONE/SALMETEROL 45-21 MCG INHALER 1 PUFF 2 PUFF INHALATION ×2 (08:18→19:55)
[2024-04-12] MEDS: METOPROLOL SUCCINATE EXT REL 50 MG TABCR PO (09:02)
[2024-04-12] MEDS: AMIODARONE HCL 200 MG TABLET PO (09:03)
[2024-04-12] MEDS: ATORVASTATIN 40 MG TABLET PO (09:03)
[2024-04-12] MEDS: SENNA/DOCUSATE SODIUM TABLET 2 TAB PO ×2 (09:03→17:00)
[2024-04-12] MEDS: SODIUM CHLORIDE 1 GM TABLET 2 GM PO ×2 (09:03→16:56)
[2024-04-12] MEDS: busPIRone HCL 5 MG TABLET PO ×2 (09:03→16:56)
[2024-04-12] MEDS: ASCORBIC ACID 500 MG TABLET 1000 MG PO (09:03)
[2024-04-12] MEDS: FUROSEMIDE INJ 40 MG/4 ML VIAL IV PUSH ×2 (09:04→16:56)
--- NOTE | 2024-04-12 09:07 | P.PNIM_ITS ---
Progress Note: A&P Assessment and Plan (1) Acute and chronic respiratory failure: Code(s): J96.20 - Acute and chronic respiratory failure, unspecified whether with hypoxia or hypercapnia Status: Acute Assessment and Plan: Multifactorial acute on chronic respiratory failure secondary to combination of COPD, congestive heart failure, atelectasis, obesity hypoventilation, obstructive sleep apnea CTA Negative for PE or pneumonia. Pneumothorax has resolved and his chest tube has been removed Currently on Airvo 90% and 60 L flow I will switch patient to BiPAP at this time and also at night Lasix IV 40 mg twice a day Continue bronchodilators Pulmonary swallowing Chest x-ray reviewed and shows stable pleural effusion and airspace opacities in lung base (2) Pneumothorax: Code(s): J93.9 - Pneumothorax, unspecified Status: Acute Assessment and Plan: From Fall s/p needle decompression CT chest performed which showed right-sided pneumothorax with subcutaneous air along the right anterolateral chest wall and posterior medial chest wall. s/p chest tube removed on 03/29/24 continue monitor (3) MARC (obstructive sleep apnea): Code(s): G47.33 - Obstructive sleep apnea (adult) (pediatric) Status: Acute Assessment and Plan: BiPAP ordered for night (4) COPD (chronic obstructive pulmonary disease): Qualifiers: COPD type: unspecified COPD Qualified Code(s): J44.9 - Chronic obstr uctive pulmonary disease, unspecified Code(s): J44.9 - Chronic obstructive pulmonary disease, unspecified Status: Acute Assessment and Plan: See above (5) Closed rib fracture: Code(s): S22.39XA - Fracture of one rib, unspecified side, initial encounter for closed fracture Status: Acute Assessment and Plan: Patient denies any pain at this time. Pain control and Supportive care (6) GERD (gastroesophageal reflux disease): Qualifiers: Esophagitis presence: without esophagitis Qualified Code(s): K21.9 - Gastro-esophageal reflux disease without esophagitis Code(s): K21.9 - Gastro-esophageal reflux disease without esophagitis Status: Acute Assessment and Plan: Continue PPI (7) Hypothyroidism: Qualifiers: Hypothyroidism type: acquired Qualified Code(s): E03.9 - Hypothyroidism, unspecified Code(s): E03.9 - Hypothyroidism, unspecified Status: Acute Assessment and Plan: Continue levothyroxine (8) Hyperlipidemia: Qualifiers: Hyperlipidemia type: elevated lipoprotein(a) Qualified Code(s): E78.41 - Elevated Lipoprotein(a) Code(s): E78.5 - Hyperlipidemia, unspecified Status: Acute Assessment and Plan: Continue statin (9) Afib: Qualifiers: Atrial fibrillation type: unspecified Qualified Code(s): I48.91 - Unspecified atrial fibrillation Code(s): I48.91 - Unspecified atrial fibrillation Status: Acute Assessment and Plan: Continue metoprolol and amiodarone Switch warfarin to Lovenox for anticoagulation (10) CHF (congestive heart failure): Qualifiers: Heart failure type: unspecified Heart failure chronicity: unspecified Qualified Code(s): I50.9 - Heart failure, unspecified Code(s): I50.9 - Heart failure, unspecified Status: Acute Assessment and Plan: See above (11) Hypertension: Qualifiers: Hypertension type: primary hypertension Qualified Code(s): I10 - Essential (primary) hypertension Code(s): I10 - Essential (primary) hypertension Status: Acute Assessment and Plan: Continue metoprolol. Hold Norvasc to allow for more aggressive diuresis (12) Lower extremity edema: Code(s): R60.0 - Localized edema Status: Acute Assessment and Plan: Secondary to congestive heart failure Lasix ordered Will order compression stocking Feet elevation Lower extremity Dopplers ordered to rule out DVT Plan DVT prophylaxis -switch warfarin to Lovenox as I anticipate patient will need procedure in case she needs intubation and mechanical ventilation Nutrition -diet ordered Code Status -patient wishes to be Full Code I spoke to patient's extensive family at bedside and updated them patient's status. I have explained to them the patient has multifactorial respiratory failure and will try BiPAP and diuresis and she may need intubation mechanical ventilation. Subjective Date/time seen: 04/12/24 Patient had increased oxygen requirement and was transferred to IMU. She is currently on Airvo at 90% FiO2 and 60 L flow. She does admit that she is less short of breath. She has some cough. She denies any pain in the chest. No nausea vomiting abdominal pain. Review of system was also positive for lower extremity swelling which is chronic. All other systems were reviewed and were neg AFib on the monitor with heart rate 120s 93 stay% saturated Afebrile Review of Systems Review of Systems: All systems reviewed & are unremarkable except as noted in HPI and below Exam Narrative: GENERAL: Pleasant, in no acute distress. Well-nourished. - EYES: EOMI. Anicteric. - HENT: Moist mucous membranes. - LUNGS: Crackles bilateral base, decre ased breath sound - CARDIOVASCULAR: Regular rate and rhyth m. No murmur. No JVD. - ABDOMEN: Soft, non-tender and non-dist ended. No palpable masses. Obese - EXTREMITIES: Bilateral pitting edema present - NEUROLOGIC: No focal neurological defi cits. CN II-XII grossly intact. AO x3 - PSYCHIATRIC: Awake, Alert and oriented x 3. Appropriate mood and affect. - SKIN: No rashes or lesions. Warm. - LYMPH: No cervical lymphadenopathy. Objective Data Vital Signs Vital Signs: Vital Signs - 24 hr 04/11/24 11:30 04/11/24 11:40 04/11/24 14:00 Temperature 36.3 C L Pulse Rate 104 H 96 88 Respiratory Rate 24 H 24 H 18 Blood Pressure 92/68 L Pulse Oximetry 93 Oxygen Delivery Oxygen Flow Rate Fraction of Inspired Oxygen 04/11/24 15:50 04/11/24 16:00 04/11/24 20:00 Temperature Pulse Rate 110 H 105 H 104 H Respiratory Rate 22 H 22 H 24 H Blood Pressure Pulse Oximetry 90 Oxygen Delivery High Flow Nasal Cannula Oxygen Flow Rate 7 Fraction of Inspired Oxygen 28 04/11/24 20:27 04/11/24 20:32 04/11/24 20:40 Temperature Pulse Rate 98 103 H Respiratory Rate 20 22 H Blood Pressure Pulse Oximetry 88 L Oxygen Delivery Nasal Cannula Oxygen Flow Rate 5 Fraction of Inspired Oxygen 04/11/24 21:00 04/11/24 21:46 04/12/24 00:40 Temperature 36.6 C Pulse Rate 102 H 104 H 109 H Respiratory Rate 22 H 24 H 22 H Blood Pressure 139/98 H Pulse Oximetry 90 90 Oxygen Delivery High Flow Nasal Cannula Oxygen Flow Rate 7 Fraction of Inspired Oxygen 04/12/24 00:58 04/12/24 03:52 04/12/24 04:00 Temperature Pulse Rate 109 H 133 H 123 H Respiratory Rate 22 H 25 H Blood Pressure Pulse Oximetry 94 Oxygen Delivery High Flow Therapy with Na Oxygen Flow Rate 50 Fraction of Inspired Oxygen 94 04/12/24 04:30 04/12/24 04:30 04/12/24 04:38 Temperature 36.8 C Pulse Rate 124 H 124 H 113 H Respiratory Rate 23 H 23 H 24 H Blood Pressure 149/71 H Pulse Oximetry 94 99 Oxygen Delivery High Flow Therapy with Na Oxygen Flow Rate 60 Fraction of Inspired Oxygen 94 04/12/24 04:43 04/12/24 04:45 04/12/24 05:32 Temperature 36.6 C Pulse Rate 115 H 118 H Respiratory Rate 24 H 22 H Blood Pressure 120/59 L Pulse Oximetry 94 95 Oxygen Delivery High Flow Therapy with Na Oxygen Flow Rate 60 Fraction of Inspired Oxygen 90 04/12/24 06:04 04/12/24 08:01 04/12/24 08:01 Temperature Pulse Rate 104 H 109 H 109 H Respiratory Rate 18 18 18 Blood Pressure 90/52 L Pulse Oximetry 97 94 Oxygen Delivery High Flow Therapy with Na Oxygen Flow Rate 60 Fraction of Inspired Oxygen 89 04/12/24 08:18 04/12/24 09:02 04/12/24 09:03 Temperature Pulse Rate 118 H 121 H 116 H Respiratory Rate 20 Blood Pressure Pulse Oximetry Oxygen Delivery Oxygen Flow Rate Fraction of Inspired Oxygen Intake/Output Intake/Output: Intake & Output 04/09/24 04/10/24 04/11/24 04/12/24 23:59 23:59 23:59 23:59 Intake Total 1400 1320 890 240 Output Total 500 100 100 Balance 1400 820 790 140 Meds/Results Medications: Active Medications Generic Name Dose Route Start Last Admin Trade Name Freq PRN Reason Stop Dose Admin Acetaminophen 1,000 mg 03/28/24 09:37 04/11/24 09:44 Acetaminophen 500 Mg Tablet PO 1,000 mg Q6H PRN Administration Mild Pain (1-3) or Fever Amiodarone HCl 200 mg 03/27/24 09:00 04/12/24 09:03 Amiodarone Hcl 200 Mg Tablet PO 200 mg DAILY MIGUEL Administration Ascorbic Acid 1,000 mg 03/27/24 09:00 04/12/24 09:03 Ascorbic Acid 500 Mg Tablet PO 1,000 mg QAM MIGUEL Administration Atorvastatin Calcium 40 mg 03/27/24 09:00 04/12/24 09:03 Atorvastatin 40 Mg Tablet PO 40 mg DAILY MIGUEL Administration Buspirone HCl 5 mg 03/27/24 09:00 04/12/24 09:03 Buspirone Hcl 5 Mg Tablet PO 5 mg BID MIGUEL Administration Calcium Carbonate 500 mg 03/27/24 09:00 04/12/24 09:07 Calcium Carbonate (Oscal) 500 Mg Tablet PO Not Given QAM [facility] Enoxaparin Sodium 90 mg 04/12/24 09:05 Enoxaparin 1 Mg/Kg SUB-Q Q12HR MIGUEL Fluticasone/Umeclidinium/Vilanterol 1 puff 04/04/24 08:00 04/12/24 08:18 Fluticasone/Umeclidin/Vilanter 100-62.5-25 Mcg Ellipta INHALATION 1 puff DAILYRT MIGUEL Administration Furosemide 40 mg 04/10/24 17:00 04/12/24 09:04 Furosemide Inj 40 Mg/4 Ml Vial IV PUSH 40 mg BID MIGUEL Administration Ipratropium [place] 0.5 mg 04/12/24 02:00 04/12/24 08:01 Ipratropium Br 0.02% Inh Soln 0.5 Mg/2.5 Ml Vial INHALATION 0.5 mg Q6HRT MIGUEL Administration Levalbuterol HCl 0.63 mg 04/12/24 02:00 04/12/24 08:01 Levalbuterol Neb 1.25 Mg/3 Ml INHALATION 0.63 mg Q6HRT MIGUEL Administration Levothyroxine Sodium 75 mcg 03/28/24 06:30 04/12/24 06:55 Levothyroxine Sodium 75 Mcg Tablet BY MOUTH 75 mcg DAILY@0630 MIGUEL Administration Lidocaine 1 patch 03/30/24 09:00 04/12/24 09:06 Lidocaine 5% Patch TRANSDERM Not Given DAILY [facility] Metoprolol Succinate 50 mg 03/27/24 09:00 04/12/24 09:02 Metoprolol Succinate Ext Rel 50 Mg Tabcr PO 50 mg QAM MIGUEL Administration * Home Med * 300 mg 04/14/24 09:00 Dupilumab [Dupixent SUB-Q 05/14/24 08:59 Syringe] 300 Mg/2 Ml [id number] MIGUEL Syringe Oxycodone HCl 5 mg 04/08/24 09:35 04/11/24 18:50 Oxycodone Hcl (*Crx) 5 Mg Tab Ir PO 5 mg Q4H PRN Administration Pain Rated 7-10 Fluticasone/Salmeterol 2 puff 04/11/24 20:00 04/12/24 08:18 Fluticasone/Salmeterol 45-21 Mcg Inhaler 1 Puff INHALATION 2 puff Q12HRT MIGUEL Administration Senna/Docusate Sodium 2 tab 03/28/24 22:25 04/12/24 09:03 Senna/Docusate Sodium Tablet PO 2 tab BID MIGUEL Administration Sodium Chloride 2 gm 04/07/24 17:00 04/12/24 09:03 Sodium Chloride 1 Gm Tablet PO 2 gm BID MIGUEL Administration Radiology Results: ITS Impressions Chest CT 03/26/24 21:50 IMPRESSION: Redemonstration of a right-sided pneumothorax, approximately 15-20% in size with a right posterior medial fifth rib fracture. Head CT 03/26/24 23:09 Impression: No acute intracranial hemorrhage or suspicious mass effect. Cervical Spine CT 03/26/24 23:13 Impression: Straightening and slight reversal of the normal curvature of the cervical spine, likely muscular in origin. Significant degenerative disease, without acute fracture. Chest CTA 03/29/24 08:00 IMPRESSION: 1. Right chest tube in expected position with small right pleural effusion but no pneumothorax. 2. Mild emphysema with mild dependent atelectasis in both lungs. 3. Cardiomegaly with biatrial enlargement. 4. Enlargement of the central pulmonary arteries consistent with pulmonary arterial hypertension. 5. Recent-appearing nondisplaced fractures of the posterior right fifth and sixth ribs. Chest X-Ray 04/12/24 07:53 IMPRESSION: 1. Stable small pleural effusions. 2. Stable airspace opacities at the lung bases, consistent with atelectasis or less likely pneumonia. 3. Cardiomegaly. Labs Labs: Laboratory Results - last 24 hr 04/11/24 04/12/24 22:17 07:31 PT 17.4 H INR 1.4 Puncture Site Right radial ABG pH 7.402 ABG pCO2 49.6 H ABG pO2 56.5 L ABG PO2/FiO2 Ratio 1.09 ABG HCO3 30.2 H ABG O2 Saturation 89.1 L ABG O2 Content 14.1 L ABG Base Excess 4.6 A-a Gradient 258.7 Oxyhemoglobin 89.2 L Carboxyhemoglobin 0.4 Methemoglobin 0.3 Reduced Hemoglobin 10.1 H Total Hemoglobin 11.2 L O2 Delivery Device High flow nasal reji O2 Liters/Min 8.0 FiO2 52
[2024-04-12 09:33] LABS: Basophils Percent Auto 0.3 % (0.2-1.2); Eosinophils Percent Auto 0.1 % (0-4.4); Hematocrit 35.3 % (37.0-47.0); Hemoglobin 11.5 g/dL (12.0-15.0); Immature Granulocyte Absolute 0.05 K/mm3 (0.00-0.031); Immature Granulocyte Percent A 0.5 % (0-0.5); Lymphocytes Absolute Auto 0.15 K/mm3 (0.9-3.2); Lymphocytes Percent Auto 1.4 % (18.3-44.2); Mean Corpuscular HGB Conc 32.6 g/dl (32-36); Mean Corpuscular Hemoglobin 29.8 pg (26-34); Mean Corpuscular Volume 91.5 fl (80-100); Mean Platelet Volume 11.8 fl (7.4-10.4); Monocytes Absolute Auto 0.2 K/mm3 (0.1-0.6); Neutrophils Absolute Auto 10.2 K/mm3 (1.3-6.7); Neutrophils Percent Auto 95.7 % (45.5-73.1); Platelet Count Result 313 k/mm3 (150-375); Red Blood Count 3.86 M/mm3 (4.2-5.4); Red Cell Distribution Width 14.6 % (11.5-14.5); White Blood Count 10.6 K/mm3 (4.5-10.0)
[2024-04-12 09:57] LABS: Anion Gap 12 mmol/L (4-12); Blood Urea Nitrogen 32 mg/dL (7-17); Calcium 8.9 mg/dL (8.4-10.2); Carbon Dioxide 29 mmol/L (22-30); Chloride 93 mmol/L (98-107); Estimated CRCL calculation 54 ml/min; Estimated Glomerular Filt Rate > 60; Glucose 122 mg/dL (65-110); Magnesium 1.8 mg/dL (1.6-2.3); Potassium 4.6 mmol/L (3.4-5.0); Sodium 134 mmol/L (137-145)
[2024-04-12] MEDS: ENOXAPARIN 100 MG/ML SYRINGE 95 MG SUB-Q ×2 (11:55→23:21)
[2024-04-12] MEDS: ACETAMINOPHEN 500 MG TABLET 1000 MG PO (21:13)
[2024-04-13] VITALS (27 sets, daily range): BP systolic 93–109; BP diastolic 62–76; PULSE 96–127; RESP 19–30; TEMP 36.5–37; O2SAT 92–97
[2024-04-13] MEDS: oxyCODONE HCL (*CRX) 5 MG TAB IR PO (00:29)
[2024-04-13] MEDS: IPRATROPIUM BR 0.02% INH SOLN 0.5 MG/2.5 ML VIAL INHALATION ×4 (01:11→21:25)
[2024-04-13 05:14] LABS: Hematocrit 30.7 % (37.0-47.0); Hemoglobin 9.9 g/dL (12.0-15.0); Mean Corpuscular HGB Conc 32.2 g/dl (32-36); Mean Corpuscular Hemoglobin 29.6 pg (26-34); Mean Corpuscular Volume 91.6 fl (80-100); Mean Platelet Volume 10.9 fl (7.4-10.4); Platelet Count Result 306 k/mm3 (150-375); Red Blood Count 3.35 M/mm3 (4.2-5.4); Red Cell Distribution Width 14.6 % (11.5-14.5)
[2024-04-13 05:27] LABS: INR 1.5; Prothrombin Time 18.8 Seconds (11.1-14.7)
[2024-04-13 05:33] LABS: Alanine Aminotransferase 17 U/L (6-35); Alkaline Phosphatase 101 U/L (38-126); Anion Gap 8 mmol/L (4-12); Aspartate Amino Transferase 21 U/L (14-36); Bilirubin,Total 0.7 mg/dL (0.2-1.3); Blood Urea Nitrogen 33 mg/dL (7-17); Calcium 8.2 mg/dL (8.4-10.2); Carbon Dioxide 32 mmol/L (22-30); Chloride 96 mmol/L (98-107); Estimated CRCL calculation 57 ml/min; Estimated Glomerular Filt Rate > 60; Glucose 119 mg/dL (65-110); Magnesium 1.9 mg/dL (1.6-2.3); Potassium 4.8 mmol/L (3.4-5.0); Sodium 136 mmol/L (137-145)
[2024-04-13] MEDS: LEVOTHYROXINE SODIUM 75 MCG TABLET BY MOUTH (05:44)
[2024-04-13] MEDS: FLUTICASONE/SALMETEROL 45-21 MCG INHALER 1 PUFF 2 PUFF INHALATION ×2 (08:11→21:25)
[2024-04-13] MEDS: LEVALBUTEROL NEB 1.25 MG/3 ML 0.63 MG INHALATION ×3 (08:12→21:25)
[2024-04-13] MEDS: LIDOCAINE 5% PATCH 1 PATCH TRANSDERM (08:32)
[2024-04-13] MEDS: AMIODARONE HCL 200 MG TABLET PO (08:54)
[2024-04-13] MEDS: ASCORBIC ACID 500 MG TABLET 1000 MG PO (08:55)
[2024-04-13] MEDS: CALCIUM CARBONATE (OSCAL) 500 MG TABLET PO (08:55)
[2024-04-13] MEDS: METOPROLOL SUCCINATE EXT REL 50 MG TABCR PO (08:55)
[2024-04-13] MEDS: PANTOPRAZOLE 40 MG TABLET PO (08:55)
[2024-04-13] MEDS: ENOXAPARIN 120 MG/0.8 ML SYRINGE 105 MG SUB-Q ×2 (08:55→21:03)
[2024-04-13] MEDS: busPIRone HCL 5 MG TABLET PO ×2 (08:55→16:51)
[2024-04-13] MEDS: ATORVASTATIN 40 MG TABLET PO (08:55)
[2024-04-13] MEDS: SODIUM CHLORIDE 1 GM TABLET 2 GM PO ×2 (08:55→16:51)
[2024-04-13] MEDS: FUROSEMIDE INJ 40 MG/4 ML VIAL IV PUSH ×2 (08:55→16:52)
[2024-04-13] MEDS: FLUTICASONE/UMECLIDIN/VILANTER 100-62.5-25 MCG ELLIPTA 1 PUFF INHALATION (10:42)
--- NOTE | 2024-04-13 11:04 | P.PNIM_ITS ---
Progress Note: A&P Assessment and Plan (1) Acute and chronic respiratory failure: Code(s): J96.20 - Acute and chronic respiratory failure, unspecified whether with hypoxia or hypercapnia Status: Acute Assessment and Plan: Multifactorial acute on chronic respiratory failure secondary to combination of COPD, congestive heart failure, atelectasis, obesity hypoventilation, obstructive sleep apnea, pleural effusion CTA Negative for PE or pneumonia. Pneumothorax has resolved and his chest tube has been removed Currently on Airvo, 50 L flow rate, 55-70% FiO2 BiPAP at night and during the day a while patient is asleep Contain Lasix IV 40 mg twice a day Continue bronchodilators Pulmonary following -add ceftriaxone (04/13) -may require CT chest, if oxygen requirements do not trend down (2) Pneumothorax: Code(s): J93.9 - Pneumothorax, unspecified Status: Acute Assessment and Plan: From Fall s/p needle decompression CT chest performed which showed right-sided pneumothorax with subcutaneous air along the right anterolateral chest wall and posterior medial chest wall. s/p chest tube removed on 03/29/24 continue monitor (3) MARC (obstructive sleep apnea): Code(s): G47.33 - Obstructive sleep apnea (adult) (pediatric) Status: Acute Assessment and Plan: BiPAP ordered for night (4) COPD (chronic obstructive pulmonary disease): Qualifiers: COPD type: unspecified COPD Qualified Code(s): J44.9 - Chronic obstructive pulmonary disease, unspecified Code(s): J44.9 - Chronic obstructive pulmonary disease, unspecified Status: Acute Assessment and Plan: Continue Airvo, BiPAP at night, bronchodilators (5) Closed rib fracture: Code(s): S22.39XA - Fracture of one rib, unspecified side, initial encounter for closed fracture Status: Acute Assessment and Plan: Patient denies any pain at this time. Pain control and Supportive care -Lidoderm patches for pain (6) GERD (gastroesophageal reflux disease): Qualifiers: Esophagitis presence: without esophagitis Qualified Code(s): K21.9 - Gastro-esophageal reflux disease without esophagitis Code(s): K21.9 - Gastro-esophageal reflux disease without esophagitis Status: Acute Assessment and Plan: Continue PPI (7) Hypothyroidism: Qualifiers: Hypothyroidism type: acquired Qualified Code(s): E03.9 - Hypothyroidism, unspecified Code(s): E03.9 - Hypothyroidism, unspecified Status: Acute Assessment and Plan: Continue levothyroxine (8) Hyperlipidemia: Qualifiers: Hyperlipidemia type: elevated lipoprotein(a) Qualified Code(s): E78.41 - Elevated Lipoprotein(a) Code(s): E78.5 - Hyperlipidemia, unspecified Status: Acute Assessment and Plan: Continue statin (9) Afib: Qualifiers: Atrial fibrillation type: unspecified Qualified Code(s): I48.91 - Unspecified atrial fibrillation Code(s): I48.91 - Unspecified atrial fibrillation Status: Acute Assessment and Plan: Continue metoprolol and amiodarone On Lovenox for anticoagulation (10) CHF (congestive heart failure): Qualifiers: Heart failure chronicity: unspecified Heart failure type: unspecified Qualified Code(s): I50.9 - Heart failure, unspecified Code(s): I50.9 - Heart failure, unspecified Status: Acute Assessment and Plan: Diastolic dysfunction, moderate tricuspid valve regurg mild pulmonary hypertension with RVSP of 42 -continue treatments as above 01/21/2024: Echocardiogram Summary 1. Left ventricular chamber dimension is normal. 2. Left ventricular systolic function is normal, estimated at 60-65%. 3. There is mildly increased left ventricular wall thickness. 4. The left ventricular diastolic function is indeterminate. 5. Right ventricular chamber dimension is mildly enlarged. 6. Left atrial chamber dimension is severely enlarged. 7. Right atrial chamber dimension is severely enlarged. 8. There is mild mitral valve regurgitation. 9. There is mild to moderate tricuspid valve regurgitation. 10. Mild pulmonary hypertension, estimated pulmonary arterial systolic pressure is 42 mmHg. 11. There is mild pulmonic regurgitation. 12. The aortic root size at the sinus of Valsalva is mildly dilated. 13. Dilated inferior vena cava with <50% collapse upon inspiration consistent with elevated right atrial pressure, 15 mmHg. (11) Hypertension: Qualifiers: Hypertension type: primary hypertension Qualified Code(s): I10 - Essential (primary) hypertension Code(s): I10 - Essential (primary) hypertension Status: Acute Assessment and Plan: Continue metoprolol. Hold Norvasc to allow for more aggressive diuresis (12) Lower extremity edema: Code(s): R60.0 - Localized edema Status: Acute Assessment and Plan: Secondary to congestive heart failure Lasix ordered compression stocking Feet elevation 04/12: Lower extremity Dopplers: Negative for DVT bilateral lower extremities Plan DVT prophylaxis -continue therapeutic Lovenox in case the patient needs any procedure Stress ulcer prophylaxis: Protonix Nutrition -heart healthy diet with supplements Code Status -patient wishes to be Full Code Dr. Gil, spoke to patient's extensive family at bedside and updated them patient's status. He explained explained to them the patient has multifactorial respiratory failure and will try BiPAP and diuresis and she may need intubation mechanical ventilation. To which they were agreeable Subjective Date/time seen: 04/13/24 11:04 Interval history: Reason for consult: Acute respiratory failure, COPD exacerbation, losing fracture status post fall, AFib 04/13/2024: Patient is being seen for hospitalist team Patient seen and examined, pleasant female currently in no acute distress. She did wear a BiPAP overnight, currently on high-flow therapy 50 L flow rate at 55% FiO2. Pt was SOB after cleaning and rolling. She is able to carry out a full conversation. Denies any chest pain, nausea, vomiting, abdominal pain Review of Systems Review of Systems: All systems reviewed & are unremarkable except as noted in HPI and below Exam Narrative: GENERAL: Pleasant, bile shortness of breath. Well-nourished. - EYES: EOMI. Anicteric. - HENT: Moist mucous membranes. - LUNGS: Coarse breath sounds at bases, adequate air entry - CARDIOVASCULAR: Regular rate and rhyt hm, tachycardia - ABDOMEN: Soft, non-tender and non-dist ended. No palpable masses. Obese - EXTREMITIES: Bilateral lower extremit y pitting edema - NEUROLOGIC: Patient is awake, alert, oriented, nonfocal - PSYCHIATRIC: Normal mentation and aff ect - SKIN: No rashes or lesions. Warm. Objective Data Vital Signs Vital Signs: Vital Signs - 24 hr 04/12/24 12:00 04/12/24 12:00 04/12/24 12:00 Temperature Pulse Rate 101 H 112 H Respiratory Rate 24 H Blood Pressure 118/69 Pulse Oximetry 95 95 Oxygen Delivery BiPAP Oxygen Flow Rate 60 Fraction of Inspired Oxygen 04/12/24 13:45 04/12/24 13:45 04/12/24 14:00 Temperature Pulse Rate 104 H 104 H 107 H Respiratory Rate 24 H 24 H Blood Pressure Pulse Oximetry 95 Oxygen Delivery BiPAP Oxygen Flow Rate Fraction of Inspired Oxygen 04/12/24 14:00 04/12/24 14:01 04/12/24 16:00 Temperature 98.6 F Pulse Rate 106 H 106 H Respiratory Rate 25 H 24 H Blood Pressure 121/82 Pulse Oximetry 96 97 Oxygen Delivery BiPAP Oxygen Flow Rate 60 Fraction of Inspired Oxygen 04/12/24 16:00 04/12/24 16:00 04/12/24 16:35 Temperature Pulse Rate 108 H 114 H 109 H Respiratory Rate 21 H 27 H Blood Pressure 110/71 Pulse Oximetry 92 96 Oxygen Delivery High Flow Therapy with Na Oxygen Flow Rate 50 Fraction of Inspired Oxygen 62 04/12/24 18:00 04/12/24 19:56 04/12/24 19:56 Temperature Pulse Rate 115 H 107 H Respiratory Rate 24 H Blood Pressure Pulse Oximetry 96 Oxygen Delivery High Flow Therapy with Na Oxygen Flow Rate 50 Fraction of Inspired Oxygen 60 04/12/24 20:00 04/12/24 20:00 04/12/24 20:00 Temperature 98.7 F Pulse Rate 125 H 125 H Respiratory Rate 18 Blood Pressure 105/64 Pulse Oximetry 95 96 Oxygen Delivery High Flow Therapy with Na Oxygen Flow Rate 50 Fraction of Inspired Oxygen 62 04/12/24 20:07 04/12/24 22:00 04/12/24 23:37 Temperature Pulse Rate 103 H 108 H 107 H Respiratory Rate 24 H 25 H Blood Pressure Pulse Oximetry 95 Oxygen Delivery BiPAP Oxygen Flow Rate Fraction of Inspired Oxygen 04/13/24 00:00 04/13/24 00:00 04/13/24 00:00 Temperature 98.6 F Pulse Rate 116 H 116 H Respiratory Rate 23 H Blood Pressure 104/76 Pulse Oximetry 93 94 Oxygen Delivery BiPAP Oxygen Flow Rate Fraction of Inspired Oxygen 04/13/24 01:50 04/13/24 02:00 04/13/24 02:12 Temperature Pulse Rate 106 H 96 103 H Respiratory Rate 22 H 22 H Blood Pressure Pulse Oximetry 96 Oxygen Delivery BiPAP Oxygen Flow Rate Fraction of Inspired Oxygen 04/13/24 02:14 04/13/24 04:00 04/13/24 04:00 Temperature 97.7 F Pulse Rate 103 H 103 H Respiratory Rate 20 19 Blood Pressure 93/62 L Pulse Oximetry 95 97 Oxygen Delivery BiPAP Oxygen Flow Rate Fraction of Inspired Oxygen 04/13/24 04:00 04/13/24 05:52 04/13/24 05:55 Temperature Pulse Rate 103 H 104 H Respiratory Rate Blood Pressure Pulse Oximetry 94 Oxygen Delivery High Flow Therapy with Na Oxygen Flow Rate 50 Fraction of Inspired Oxygen 55 04/13/24 08:00 04/13/24 08:00 04/13/24 08:00 Temperature 98.0 F Pulse Rate 108 H 106 H Respiratory Rate 30 H Blood Pressure 109/68 Pulse Oximetry 93 93 Oxygen Delivery High Flow Therapy with Na Oxygen Flow Rate 50 Fraction of Inspired Oxygen 54 04/13/24 08:12 04/13/24 08:12 04/13/24 08:54 Temperature Pulse Rate 107 H 117 H Respiratory Rate 20 Blood Pressure Pulse Oximetry 93 Oxygen Delivery High Flow Therapy with Na Oxygen Flow Rate 50 Fraction of Inspired Oxygen 54 04/13/24 08:55 04/13/24 10:00 04/13/24 10:48 Temperature Pulse Rate 127 H 114 H Respiratory Rate Blood Pressure Pulse Oximetry 92 Oxygen Delivery High Flow Therapy with Na Oxygen Flow Rate 50 Fraction of Inspired Oxygen 80 Intake/Output Intake/Output: Intake & Output 04/10/24 04/11/24 04/12/24 04/13/24 23:59 23:59 23:59 23:59 Intake Total 3463 456 0674 540 Output Total 500 100 500 300 Balance 820 790 720 240 Meds/Results Medications: Active Medications Generic Name Dose Route Start Last Admin Trade Name Freq PRN Reason Stop Dose Admin Acetaminophen 1,000 mg 03/28/24 09:37 04/12/24 21:13 Acetaminophen 500 Mg Tablet PO 1,000 mg Q6H PRN Administration Mild Pain (1-3) or Fever Amiodarone HCl 200 mg 03/27/24 09:00 04/13/24 08:54 Amiodarone Hcl 200 Mg Tablet PO 200 mg DAILY MIGUEL Administration Ascorbic Acid 1,000 mg 03/27/24 09:00 04/13/24 08:55 Ascorbic Acid 500 Mg Tablet PO 1,000 mg QAM MIGUEL Administration Atorvastatin Calcium 40 mg 03/27/24 09:00 04/13/24 08:55 Atorvastatin 40 Mg Tablet PO 40 mg DAILY MIGUEL Administration Buspirone HCl 5 mg 03/27/24 09:00 04/13/24 08:55 Buspirone Hcl 5 Mg Tablet PO 5 mg BID MIGUEL Administration Calcium Carbonate 500 mg 03/27/24 09:00 04/13/24 08:55 Calcium Carbonate (Oscal) 500 Mg Tablet PO 500 mg QAM MIGUEL Administration Enoxaparin Sodium 105 mg 04/13/24 09:00 04/13/24 08:55 Enoxaparin 120 Mg/0.8 Ml Syringe SUB-Q 105 mg Q12H MIGUEL Administration Fluticasone/Umeclidinium/Vilanterol 1 puff 04/04/24 08:00 04/13/24 10:42 Fluticasone/Umeclidin/Vilanter 100-62.5-25 Mcg Ellipta INHALATION 1 puff DAILYRT MIGUEL Administration Furosemide 40 mg 04/10/24 17:00 04/13/24 08:55 Furosemide Inj 40 Mg/4 Ml Vial IV PUSH 40 mg BID MIGUEL Administration Ipratropium [place] 0.5 mg 04/12/24 02:00 04/13/24 08:12 Ipratropium Br 0.02% Inh Soln 0.5 Mg/2.5 Ml Vial INHALATION 0.5 mg Q6HRT MIGUEL Administration Levalbuterol HCl 0.63 mg 04/12/24 02:00 04/13/24 10:51 Levalbuterol Neb 1.25 Mg/3 Ml INHALATION Not Given Q6HRT MIGUEL Levothyroxine Sodium 75 mcg 03/28/24 06:30 04/13/24 05:44 Levothyroxine Sodium 75 Mcg Tablet BY MOUTH 75 mcg DAILY@0630 MIGUEL Administration Lidocaine 1 patch 03/30/24 09:00 04/13/24 08:32 Lidocaine 5% Patch TRANSDERM 1 patch DAILY MIGUEL Administration Metoprolol Succinate 50 mg 03/27/24 09:00 04/13/24 08:55 Metoprolol Succinate Ext Rel 50 Mg Tabcr PO 50 mg QAM MIGUEL Administration * Home Med * 300 mg 04/14/24 09:00 Dupilumab [Dupixent SUB-Q 05/14/24 08:59 Syringe] 300 Mg/2 Ml [id number] MIGUEL Syringe Oxycodone HCl 5 mg 04/08/24 09:35 04/13/24 00:29 Oxycodone Hcl (*Crx) 5 Mg Tab Ir PO 5 mg Q4H PRN Administration Pain Rated 7-10 Pantoprazole Sodium 40 mg 04/13/24 09:00 04/13/24 08:55 Pantoprazole 40 Mg Tablet PO 40 mg QAM MIGUEL Administration Fluticasone/Salmeterol 2 puff 04/11/24 20:00 04/13/24 08:11 Fluticasone/Salmeterol 45-21 Mcg Inhaler 1 Puff INHALATION 2 puff Q12HRT MIGUEL Administration Senna/Docusate Sodium 2 tab 03/28/24 22:25 04/13/24 08:57 Senna/Docusate Sodium Tablet PO Not Given BID MIGUEL Sodium Chloride 2 gm 04/07/24 17:00 04/13/24 08:55 Sodium Chloride 1 Gm Tablet PO 2 gm BID MIGUEL Administration Radiology Results: ITS Impressions Chest CT 03/26/24 21:50 IMPRESSION: Redemonstration of a right-sided pneumothorax, approximately 15-20% in size with a right posterior medial fifth rib fracture. Head CT 03/26/24 23:09 Impression: No acute intracranial hemorrhage or suspicious mass effect. Cervical Spine CT 03/26/24 23:13 Impression: Straightening and slight reversal of the normal curvature of the cervical spine, likely muscular in origin. Significant degenerative disease, without acute fracture. Chest CTA 03/29/24 08:00 IMPRESSION: 1. Right chest tube in expected position with small right pleural effusion but no pneumothorax. 2. Mild emphysema with mild dependent atelectasis in both lungs. 3. Cardiomegaly with biatrial enlargement. 4. Enlargement of the central pulmonary arteries consistent with pulmonary arterial hypertension. 5. Recent-appearing nondisplaced fractures of the posterior right fifth and sixth ribs. Chest X-Ray 04/12/24 07:53 IMPRESSION: 1. Stable small pleural effusions. 2. Stable airspace opacities at the lung bases, consistent with atelectasis or less likely pneumonia. 3. Cardiomegaly. Venous Doppler Study 04/12/24 14:56 IMPRESSION: 1. No deep venous thrombosis within the bilateral lower extremities. Labs Labs: Laboratory Results - last 24 hr 04/13/24 04:45 WBC 7.0 RBC 3.35 L Hgb 9.9 L Hct 30.7 L MCV 91.6 MCH 29.6 MCHC 32.2 RDW 14.6 H Plt Count 306 MPV 10.9 H PT 18.8 H INR 1.5 Sodium 136 L Potassium 4.8 Chloride 96 L Carbon Dioxide 32 H Anion Gap 8 BUN 33 H Creatinine 0.66 L Estim Creat Clear Calc 57 Estimated GFR > 60 Glucose 119 H Calcium 8.2 L Magnesium 1.9 Total Bilirubin 0.7 AST 21 ALT 17 Alkaline Phosphatase 101 Total Protein 6.0 L Albumin 3.0 L
--- NOTE | 2024-04-13 11:06 | PCFNICU ---
ICU Rounding Note: Pt current nutrition is Heart Healthy Nutrition recommendation: Nutritional Ice Cream BID. Last recorded weight is 104.1 kg Bowel Motility:+BM reported 04/13 Labs Reviewed:Glu 119, Cr 0.66, BUN 33, Alb 3.0 Meds Noted:Lasix, Vit C, Protonix, Lovenox, Senokot. Skin: WNL Additional Notes: Patient remains on a heart healthy diet, oral intake has been fair 10-50% of meals. Diet supplements of Ensure Enlive is on trays providing an additional 350 kcal and 20 gm protein. Recommending Nutritional Ice Cream for an additional 300 kcal and 0 gm protein. Agree with diet orders. Following daily in ICU rounds.
[2024-04-13] MEDS: cefTRIAXone 2 GM/NS 100 ML 2 GM/100 ML BAG IVPB (11:57)
[2024-04-13] MEDS: MELATONIN 5 MG TABLET PO (21:22)
[2024-04-14] VITALS (27 sets, daily range): BP systolic 88–133; BP diastolic 64–88; PULSE 102–145; RESP 20–28; TEMP 36.6–36.8; O2SAT 92–97
[2024-04-14] MEDS: LEVALBUTEROL NEB 1.25 MG/3 ML 0.63 MG INHALATION ×4 (02:15→19:10)
[2024-04-14] MEDS: IPRATROPIUM BR 0.02% INH SOLN 0.5 MG/2.5 ML VIAL INHALATION ×4 (02:15→19:10)
[2024-04-14] MEDS: LEVOTHYROXINE SODIUM 75 MCG TABLET BY MOUTH (04:18)
[2024-04-14] MEDS: METOPROLOL TARTRATE 25 MG TABLET PO (04:18)
[2024-04-14 04:58] LABS: Basophils Percent Auto 0.1 % (0.2-1.2); Eosinophils Percent Auto 0.3 % (0-4.4); Hematocrit 33.4 % (37.0-47.0); Hemoglobin 10.6 g/dL (12.0-15.0); Immature Granulocyte Absolute 0.04 K/mm3 (0.00-0.031); Immature Granulocyte Percent A 0.5 % (0-0.5); Lymphocytes Absolute Auto 0.71 K/mm3 (0.9-3.2); Lymphocytes Percent Auto 9.4 % (18.3-44.2); Mean Corpuscular HGB Conc 31.7 g/dl (32-36); Mean Corpuscular Volume 91.5 fl (80-100); Mean Platelet Volume 10.4 fl (7.4-10.4); Monocytes Percent Auto 12.9 % (2.6-8.5); Neutrophils Absolute Auto 5.8 K/mm3 (1.3-6.7); Neutrophils Percent Auto 76.8 % (45.5-73.1); Platelet Count Result 343 k/mm3 (150-375); Red Blood Count 3.65 M/mm3 (4.2-5.4); White Blood Count 7.6 K/mm3 (4.5-10.0)
[2024-04-14 05:13] LABS: INR 1.3; Prothrombin Time 17.1 Seconds (11.1-14.7)
[2024-04-14 05:33] LABS: Alanine Aminotransferase 20 U/L (6-35); Albumin Level 3.2 g/dL (3.5-5.1); Alkaline Phosphatase 107 U/L (38-126); Anion Gap 9 mmol/L (4-12); Aspartate Amino Transferase 24 U/L (14-36); Bilirubin,Total 0.5 mg/dL (0.2-1.3); Blood Urea Nitrogen 34 mg/dL (7-17); Calcium 8.3 mg/dL (8.4-10.2); Carbon Dioxide 32 mmol/L (22-30); Chloride 96 mmol/L (98-107); Estimated CRCL calculation 57 ml/min; Estimated Glomerular Filt Rate > 60; Glucose 93 mg/dL (65-110); Magnesium 1.9 mg/dL (1.6-2.3); Phosphorus 3.4 mg/dL (2.5-4.5); Potassium 4.1 mmol/L (3.4-5.0); Sodium 137 mmol/L (137-145)
[2024-04-14 05:33] LABS: Alveolar/Arterial O2 Gradient 203.9 mmHg; Base Excess ABG 3.2 mEq/l (+/-2.0); Carboxyhemoglobin 0.3 % THb (0-2.0); Fractional Inspired Oxygen 45 %; HCO3 ABG 27.8 mEq/l (22.0-26.0); Methemoglobin ABG 0.3 %THb (0-1.5); Oxygen Saturation ABG 94.3 % (95.0-100.0); Oxyhemoglobin 93.3 % THb (90.0-100.0); PCO2 ABG 42.2 mmHg (35.0-45.0); PO2 FiO2 Ratio Arterial Blood 1.53 %; Reduced Hemoglobin 6.1 %THb (0-5.0); Total Hemoglobin 11.4 g/dL (12.0-18.0); pH ABG 7.436 (7.350-7.450)
[2024-04-14 05:35] LABS: Modified Allen's Test Pass; Site Drawn RIGHT RADIAL
[2024-04-14 05:36] LABS: Device NON-INVASIVE VENT; Non-Invasive Expiratory Pressure 8 CMH2O; Non-Invasive Inspiratory Pressure 12 CMH2O; Non-Invasive Vent Rate 12 /MIN
[2024-04-14] MEDS: FLUTICASONE/SALMETEROL 45-21 MCG INHALER 1 PUFF 2 PUFF INHALATION ×2 (08:27→19:14)
[2024-04-14] MEDS: FLUTICASONE/UMECLIDIN/VILANTER 100-62.5-25 MCG ELLIPTA 1 PUFF INHALATION (08:27)
[2024-04-14] MEDS: ATORVASTATIN 40 MG TABLET PO (08:43)
[2024-04-14] MEDS: AMIODARONE HCL 200 MG TABLET PO (08:43)
[2024-04-14] MEDS: busPIRone HCL 5 MG TABLET PO ×2 (08:43→16:39)
[2024-04-14] MEDS: METOPROLOL SUCCINATE EXT REL 50 MG TABCR PO (08:43)
[2024-04-14] MEDS: ASCORBIC ACID 500 MG TABLET 1000 MG PO (08:43)
[2024-04-14] MEDS: CALCIUM CARBONATE (OSCAL) 500 MG TABLET PO (08:43)
[2024-04-14] MEDS: LIDOCAINE 5% PATCH 1 PATCH TRANSDERM (08:44)
[2024-04-14] MEDS: ACETAMINOPHEN 500 MG TABLET 1000 MG PO ×2 (08:44→17:33)
[2024-04-14] MEDS: ENOXAPARIN 120 MG/0.8 ML SYRINGE 105 MG SUB-Q ×2 (08:44→20:13)
[2024-04-14] MEDS: SODIUM CHLORIDE 1 GM TABLET 2 GM PO ×2 (08:44→16:39)
[2024-04-14] MEDS: PANTOPRAZOLE 40 MG TABLET PO (08:44)
[2024-04-14] MEDS: FUROSEMIDE INJ 40 MG/4 ML VIAL IV PUSH ×2 (08:44→17:24)
--- NOTE | 2024-04-14 11:13 | P.PNIM_ITS ---
Progress Note: A&P Assessment and Plan (1) Acute and chronic respiratory failure: Qualifiers: Respiratory failure complication: unspecified whether with hypoxia or hypercapnia Qualified Code(s): J96.20 - Acute and chronic respiratory failure, unspecified whether with hypoxia or hypercapnia Code(s): J96.20 - Acute and chronic respiratory failure, unspecified whether with hypoxia or hypercapnia Status: Acute Assessment and Plan: Multifactorial acute on chronic respiratory failure secondary to combination of COPD, congestive heart failure, atelectasis, obesity hypoventilation, obstructive sleep apnea, pleural effusion CTA Negative for PE or pneumonia. Pneumothorax has resolved and his chest tube has been removed Currently on Airvo, 50 L flow rate, 55-70% FiO2 BiPAP at night and during the day a while patient is asleep Contain Lasix IV 40 mg twice a day Continue bronchodilators Pulmonary following -add ceftriaxone (04/13) -may require CT chest, if oxygen requirements do not trend down (2) Pneumothorax: Qualifiers: Pneumothorax type: spontaneous, primary Qualified Code(s): J93.11 - Primary spontaneous pneumothorax Code(s): J93.9 - Pneumothorax, unspecified Status: Acute Assessment and Plan: From Fall s/p needle decompression CT chest performed which showed right-sided pneumothorax with subcutaneous air along the right anterolateral chest wall and posterior medial chest wall. s/p chest tube removed on 03/29/24 continue monitor (3) MARC (obstructive sleep apnea): Code(s): G47.33 - Obstructive sleep apnea (adult) (pediatric) Status: Acute Assessment and Plan: BiPAP ordered for night and while asleep during the day (4) COPD (chronic obstructive pulmonary disease): Qualifiers: COPD type: unspecified COPD Qualified Code(s): J44.9 - Chronic obstructive pulmonary disease, unspecified Code(s): J44.9 - Chronic obstructive pulmonary disease, unspecified Status: Acute Assessment and Plan: Continue Airvo, BiPAP at night, bronchodilators (5) Closed rib fracture: Code(s): S22.39XA - Fracture of one rib, unspecified side, initial encounter for closed fracture Status: Acute Assessment and Plan: Patient denies any pain at this time. Pain control and Supportive care -Lidoderm patches for pain (6) GERD (gastroesophageal reflux disease): Qualifiers: Esophagitis presence: without esophagitis Qualified Code(s): K21.9 - Ga stro-esophageal reflux disease without esophagitis Code(s): K21.9 - Gastro-esophageal reflux disease without esophagitis Status: Acute Assessment and Plan: Continue PPI (7) Hypothyroidism: Qualifiers: Hypothyroidism type: acquired Qualified Code(s): E03.9 - Hypothyroidism, unspecified Code(s): E03.9 - Hypothyroidism, unspecified Status: Acute Assessment and Plan: Continue levothyroxine (8) Hyperlipidemia: Qualifiers: Hyperlipidemia type: elevated lipoprotein(a) Qualified Code(s): E78.41 - Elevated Lipoprotein(a) Code(s): E78.5 - Hyperlipidemia, unspecified Status: Acute Assessment and Plan: Continue statin (9) Afib: Qualifiers: Atrial fibrillation type: unspecified Qualified Code(s): I48.91 - Unspecified atrial fibrillation Code(s): I48.91 - Unspecified atrial fibrillation Status: Acute Assessment and Plan: Continue metoprolol and amiodarone On Lovenox for anticoagulation (10) CHF (congestive heart failure): Qualifiers: Heart failure chronicity: unspecified Heart failure type: unspecified Qualified Code(s): I50.9 - Heart failure, unspecified Code(s): I50.9 - Heart failure, unspecified Status: Acute Assessment and Plan: Diastolic dysfunction, moderate tricuspid valve regurg mild pulmonary hypertension with RVSP of 42 -continue treatments as above 01/21/2024: Echocardiogram Summary 1. Left ventricular chamber dimension is normal. 2. Left ventricular systolic function is normal, estimated at 60-65%. 3. There is mildly increased left ventricular wall thickness. 4. The left ventricular diastolic function is indeterminate. 5. Right ventricular chamber dimension is mildly enlarged. 6. Left atrial chamber dimension is severely enlarged. 7. Right atrial chamber dimension is severely enlarged. 8. There is mild mitral valve regurgitation. 9. There is mild to moderate tricuspid valve regurgitation. 10. Mild pulmonary hypertension, estimated pulmonary arterial systolic pressure is 42 mmHg. 11. There is mild pulmonic regurgitation. 12. The aortic root size at the sinus of Valsalva is mildly dilated. 13. Dilated inferior vena cava with <50% collapse upon inspiration consistent with elevated right atrial pressure, 15 mmHg. (11) Hypertension: Qualifiers: Hypertension type: primary hypertension Qualified Code(s): I10 - Essential (primary) hypertension Code(s): I10 - Essential (primary) hypertension Status: Acute Assessment and Plan: Continue metoprolol. Hold Norvasc to allow for more aggressive diuresis (12) Lower extremity edema: Code(s): R60.0 - Localized edema Status: Acute Assessment and Plan: Secondary to congestive heart failure Lasix ordered compression stocking Feet elevation 04/12: Lower extremity Dopplers: Negative for DVT bilateral lower extremities Plan DVT prophylaxis -continue therapeutic Lovenox in case the patient needs any procedure Stress ulcer prophylaxis: Protonix Nutrition -heart healthy diet with supplements Code Status -patient wishes to be Full Code Dr. Gil, spoke to patient's extensive family at bedside and updated them patient's status. He explained explained to them the patient has multifactorial respiratory failure and will try BiPAP and diuresis and she may need intubation mechanical ventilation. To which they were agreeable Subjective Date/time seen: 04/14/24 11:13 Interval history: Reason for consult: Acute respiratory failure, COPD exacerbation, losing fractu re status post fall, AFib 04/14/2024: Patient is being seen for hospitalist team Patient seen and examined, pleasant female currently in no acute distress. She did wear a BiPAP overnight, currently on high-flow therapy 40 L flow rate at 45% FiO2. Patient states he feels better this morning, more awake, alert, oriented. Denies any chest pain, nausea, vomiting, abdominal pain. Afebrile, urine o utput has been adequate, hemodynamically stable Review of Systems Review of Systems: All systems reviewed & are unremarkable except as noted in HPI and below Exam Narrative: GENERAL: Pleasant, bile shortness of breath. Well-nourished. - EYES: EOMI. Anicteric. - HENT: Moist mucous membranes. - LUNGS: Coarse breath sounds at bases, adequate air entry - CARDIOVASCULAR: Regular rate and rhyt hm, tachycardia - ABDOMEN: Soft, non-tender and non-dist ended. No palpable masses. Obese - EXTREMITIES: Bilateral lower extremit y pitting edema - NEUROLOGIC: Patient is awake, alert, oriented, nonfocal - PSYCHIATRIC: Normal mentation and aff ect - SKIN: No rashes or lesions. Warm. Objective Data Vital Signs Vital Signs: Vital Signs - 24 hr 04/13/24 12:00 04/13/24 12:00 04/13/24 12:00 Temperature 98.4 F Pulse Rate 112 H 121 H Respiratory Rate 22 H Blood Pressure 99/64 L Pulse Oximetry 95 92 Oxygen Delivery High Flow Therapy with Na Oxygen Flow Rate 50 Fraction of Inspired Oxygen 80 04/13/24 14:00 04/13/24 14:47 04/13/24 14:47 Temperature Pulse Rate 112 H 113 H Respiratory Rate 20 Blood Pressure Pulse Oximetry 93 Oxygen Delivery High Flow Therapy with Na Oxygen Flow Rate 50 Fraction of Inspired Oxygen 70 04/13/24 15:07 04/13/24 16:00 04/13/24 16:00 Temperature Pulse Rate 115 H 105 H Respiratory Rate 24 H Blood Pressure Pulse Oximetry 93 95 Oxygen Delivery BiPAP High Flow Therapy with Na Oxygen Flow Rate 50 Fraction of Inspired Oxygen 70 04/13/24 16:00 04/13/24 16:30 04/13/24 18:00 Temperature 98.4 F Pulse Rate 108 H 117 H Respiratory Rate 22 H Blood Pressure 103/70 Pulse Oximetry 94 93 Oxygen Delivery High Flow Therapy with Na Oxygen Flow Rate 50 Fraction of Inspired Oxygen 70 04/13/24 20:00 04/13/24 20:00 04/13/24 20:00 Temperature 98.0 F Pulse Rate 113 H 113 H Respiratory Rate 28 H Blood Pressure 104/70 Pulse Oximetry 96 96 Oxygen Delivery High Flow Therapy with Na Oxygen Flow Rate 50 Fraction of Inspired Oxygen 70 04/13/24 21:25 04/13/24 21:30 04/13/24 21:43 Temperature Pulse Rate 121 H 107 H 117 H Respiratory Rate 24 H 28 H 29 H Blood Pressure Pulse Oximetry 95 Oxygen Delivery BiPAP Oxygen Flow Rate Fraction of Inspired Oxygen 04/13/24 22:00 04/13/24 23:08 04/14/24 00:00 Temperature Pulse Rate 122 H 110 H Respiratory Rate Blood Pressure Pulse Oximetry 93 Oxygen Delivery BiPAP Oxygen Flow Rate Fraction of Inspired Oxygen 60 04/14/24 00:00 04/14/24 02:00 04/14/24 02:15 Temperature 98.2 F Pulse Rate 110 H 107 H 107 H Respiratory Rate 23 H 23 H Blood Pressure 88/64 L Pulse Oximetry 94 Oxygen Delivery Oxygen Flow Rate Fraction of Inspired Oxygen 04/14/24 02:15 04/14/24 02:23 04/14/24 04:00 Temperature 97.8 F Pulse Rate 108 H 108 H 126 H Respiratory Rate 21 H 27 H 23 H Blood Pressure 117/68 Pulse Oximetry 95 92 Oxygen Delivery BiPAP Oxygen Flow Rate Fraction of Inspired Oxygen 04/14/24 04:00 04/14/24 04:00 04/14/24 04:14 Temperature Pulse Rate 106 H 145 H Respiratory Rate Blood Pressure 117/68 Pulse Oximetry 92 Oxygen Delivery BiPAP Oxygen Flow Rate Fraction of Inspired Oxygen 60 04/14/24 04:18 04/14/24 05:49 04/14/24 06:00 Temperature Pulse Rate 145 H 108 H 120 H Respiratory Rate 24 H Blood Pressure Pulse Oximetry 95 Oxygen Delivery BiPAP Oxygen Flow Rate Fraction of Inspired Oxygen 04/14/24 06:00 04/14/24 06:07 04/14/24 08:00 Temperature Pulse Rate 116 H Respiratory Rate Blood Pressure Pulse Oximetry 96 95 92 Oxygen Delivery High Flow Therapy with Na High Flow Therapy with Na High Flow Therapy with Na Oxygen Flow Rate 40 40 40 Fraction of Inspired Oxygen 60 60 60 04/14/24 08:00 04/14/24 08:00 04/14/24 08:28 Temperature 98.0 F Pulse Rate 118 H 131 H 112 H Respiratory Rate 24 H 22 H Blood Pressure 116/84 Pulse Oximetry 92 96 Oxygen Delivery High Flow Therapy with Na Oxygen Flow Rate 40 Fraction of Inspired Oxygen 60 04/14/24 08:28 04/14/24 08:43 04/14/24 08:43 Temperature Pulse Rate 112 H 120 H 124 H Respiratory Rate 22 H Blood Pressure Pulse Oximetry Oxygen Delivery Oxygen Flow Rate Fraction of Inspired Oxygen 04/14/24 08:50 04/14/24 10:00 Temperature Pulse Rate 116 H 115 H Respiratory Rate 24 H Blood Pressure Pulse Oximetry Oxygen Delivery Oxygen Flow Rate Fraction of Inspired Oxygen Intake/Output Intake/Output: Intake & Output 04/11/24 04/12/24 04/13/24 04/14/24 23:59 23:59 23:59 23:59 Intake Total 890 1220 910 200 Output Total 843 543 8190 650 Balance 790 137 -580 -182 Meds/Results Medications: Active Medications Generic Name Dose Route Start Last Admin Trade Name Freq PRN Reason Stop Dose Admin Acetaminophen 1,000 mg 03/28/24 09:37 04/14/24 08:44 Acetaminophen 500 Mg Tablet PO 1,000 mg Q6H PRN Administration Mild Pain (1-3) or Fever Amiodarone HCl 200 mg 03/27/24 09:00 04/14/24 08:43 Amiodarone Hcl 200 Mg Tablet PO 200 mg DAILY MIGUEL Administration Ascorbic Acid 1,000 mg 03/27/24 09:00 04/14/24 08:43 Ascorbic Acid 500 Mg Tablet PO 1,000 mg QAM MIGUEL Administration Atorvastatin Calcium 40 mg 03/27/24 09:00 04/14/24 08:43 Atorvastatin 40 Mg Tablet PO 40 mg DAILY MIGUEL Administration Buspirone HCl 5 mg 03/27/24 09:00 04/14/24 08:43 Buspirone Hcl 5 Mg Tablet PO 5 mg BID MIGUEL Administration Calcium Carbonate 500 mg 03/27/24 09:00 04/14/24 08:43 Calcium Carbonate (Oscal) 500 Mg Tablet PO 500 mg QAM MIGUEL Administration Enoxaparin Sodium 105 mg 04/13/24 09:00 04/14/24 08:44 Enoxaparin 120 Mg/0.8 Ml Syringe SUB-Q 105 mg Q12H MIGUEL Administration Fluticasone/Umeclidinium/Vilanterol 1 puff 04/04/24 08:00 04/14/24 08:27 Fluticasone/Umeclidin/Vilanter 100-62.5-25 Mcg Ellipta INHALATION 1 puff DAILYRT MIGUEL Administration Furosemide 40 mg 04/10/24 17:00 04/14/24 08:44 Furosemide Inj 40 Mg/4 Ml Vial IV PUSH 40 mg BID MIGUEL Administration Ceftriaxone Sodium 2 gm in 100 mls @ 200 mls/hr 04/13/24 12:00 04/13/24 12:39 Rocephin 2 Gm/Ns 100 Ml IVPB Infused Q24H MIGUEL Infusion Ipratropium [place] 0.5 mg 04/12/24 02:00 04/14/24 08:26 Ipratropium Br 0.02% Inh Soln 0.5 Mg/2.5 Ml Vial INHALATION 0.5 mg Q6HRT MIGUEL Administration Levalbuterol HCl 0.63 mg 04/12/24 02:00 04/14/24 08:26 Levalbuterol Neb 1.25 Mg/3 Ml INHALATION 0.63 mg Q6HRT MIGUEL Administration Levothyroxine Sodium 75 mcg 03/28/24 06:30 04/14/24 04:18 Levothyroxine Sodium 75 Mcg Tablet BY MOUTH 75 mcg DAILY@0630 MIGUEL Administration Lidocaine 1 patch 03/30/24 09:00 04/14/24 08:44 Lidocaine 5% Patch TRANSDERM 1 patch DAILY MIGUEL Administration Melatonin 5 mg 04/13/24 21:00 04/13/24 21:22 Melatonin 5 Mg Tablet PO 5 mg HS MIGUEL Administration Metoprolol Succinate 50 mg 03/27/24 09:00 04/14/24 08:43 Metoprolol Succinate Ext Rel 50 Mg Tabcr PO 50 mg QAM MIGUEL Administration * Home Med * 300 mg 04/14/24 09:00 Dupilumab [Dupixent SUB-Q 05/14/24 08:59 Syringe] 300 Mg/2 Ml [id number] [facility] Syringe Oxycodone HCl 5 mg 04/08/24 09:35 04/13/24 00:29 Oxycodone Hcl (*Crx) 5 Mg Tab Ir PO 5 mg Q4H PRN Administration Pain Rated 7-10 Pantoprazole Sodium 40 mg 04/13/24 09:00 04/14/24 08:44 Pantoprazole 40 Mg Tablet PO 40 mg QAM MIGUEL Administration Fluticasone/Salmeterol 2 puff 04/11/24 20:00 04/14/24 08:27 Fluticasone/Salmeterol 45-21 Mcg Inhaler 1 Puff INHALATION 2 puff Q12HRT MIGUEL Administration Senna/Docusate Sodium 2 tab 04/13/24 12:43 Senna/Docusate Sodium Tablet PO BID PRN Constipation Sodium Chloride 2 gm 04/07/24 17:00 04/14/24 08:44 Sodium Chloride 1 Gm Tablet PO 2 gm BID MIGUEL Administration Radiology Results: ITS Impressions Chest CT 03/26/24 21:50 IMPRESSION: Redemonstration of a right-sided pneumothorax, approximately 15-20% in size with a right posterior medial fifth rib fracture. Head CT 03/26/24 23:09 Impression: No acute intracranial hemorrhage or suspicious mass effect. Cervical Spine CT 03/26/24 23:13 Impression: Straightening and slight reversal of the normal curvature of the cervical spine, likely muscular in origin. Significant degenerative disease, without acute fracture. Chest CTA 03/29/24 08:00 IMPRESSION: 1. Right chest tube in expected position with small right pleural effusion but no pneumothorax. 2. Mild emphysema with mild dependent atelectasis in both lungs. 3. Cardiomegaly with biatrial enlargement. 4. Enlargement of the central pulmonary arteries consistent with pulmonary arterial hypertension. 5. Recent-appearing nondisplaced fractures of the posterior right fifth and sixth ribs. Venous Doppler Study 04/12/24 14:56 IMPRESSION: 1. No deep venous thrombosis within the bilateral lower extremities. Chest X-Ray 04/14/24 06:20 Impression: [id number] bilateral pleural effusions with bibasilar pulmonary edema/atelectasis. Labs Labs: Laboratory Results - last 24 hr 04/14/24 04/14/24 04:40 05:30 WBC 7.6 RBC 3.65 L Hgb 10.6 L Hct 33.4 L MCV 91.5 MCH 29.0 MCHC 31.7 L RDW 15.0 H Plt Count 343 MPV 10.4 Immature Gran % (Auto) 0.5 Neut % (Auto) 76.8 H Lymph % (Auto) 9.4 L [place] % (Auto) 12.9 H Eos % (Auto) 0.3 Baso % (Auto) 0.1 L Lymph # (Auto) 0.71 L [place] # (Auto) 1.0 H Eos # (Auto) 0.0 Baso # (Auto) 0.0 Abs Immat Gran (auto) 0.04 H Absolute Neuts (auto) 5.8 Absolute Nucleated RBC 0.000 Nucleated RBC % 0.0 PT 17.1 H INR 1.3 Puncture Site Right radial ABG pH 7.436 ABG pCO2 42.2 ABG pO2 69.0 L ABG PO2/FiO2 Ratio 1.53 ABG HCO3 27.8 H ABG O2 Saturation 94.3 L ABG O2 Content 15.0 L ABG Base Excess 3.2 A-a Gradient 203.9 Oxyhemoglobin 93.3 Carboxyhemoglobin 0.3 Methemoglobin 0.3 Reduced Hemoglobin 6.1 H Total Hemoglobin 11.4 L O2 Delivery Device Non-invasive vent O2 Liters/Min Not Reportable Vent Rate 12 FiO2 45 Expiratory Pressure 8 Inspiratory Pressure 12 Sodium 137 Potassium 4.1 Chloride 96 L Carbon Dioxide 32 H Anion Gap 9 BUN 34 H Creatinine 0.69 L Estim Creat Clear Calc 57 Estimated GFR > 60 Glucose 93 Calcium 8.3 L Phosphorus 3.4 Magnesium 1.9 Total Bilirubin 0.5 AST 24 ALT 20 Alkaline Phosphatase 107 Total Protein 6.0 L Albumin 3.2 L
--- NOTE | 2024-04-14 11:30 | PC.NURSE ---
asked family to bring in home med dupixent
[2024-04-14] MEDS: cefTRIAXone 2 GM/NS 100 ML 2 GM/100 ML BAG IVPB (12:41)
--- NOTE | 2024-04-14 16:05 | PCPTNOTE ---
On 04/14/24, the student, CARYL Clayton, provided care and completed [facility] documentation on this patient. I have reviewed the student's documentation and agree with the findings.
[2024-04-14] MEDS: DUPILUMAB 300 MG/2 ML 300 EACH SUB-Q (17:24)
--- NOTE | 2024-04-14 18:55 | PC.NURSE ---
This patient, Kanchan Abbott, was transferred to [[id number]] on 04/14/24 at 1855. Personal belongings sent with patient. Report given to [Inez CHRISTIANSEN]. Appropriate documentation sent with patient.
--- NOTE | 2024-04-14 19:07 | PC.NURSE ---
This patient, Kanchan Abbott, was received from [ICU-6 ] on 04/14/24 at 1907. Patient/family oriented to unit policies and routines. Report received from ЕЛЕНА Herr @ [phone]
[2024-04-14] MEDS: MELATONIN 5 MG TABLET PO (21:19)
[2024-04-15] VITALS (27 sets, daily range): BP systolic 108–125; BP diastolic 63–92; PULSE 94–130; RESP 18–24; TEMP 36.4–36.6; O2SAT 93–97
[2024-04-15] MEDS: oxyCODONE HCL (*CRX) 5 MG TAB IR PO ×2 (00:18→20:53)
[2024-04-15] MEDS: PROCHLORPERAZINE EDISYLATE 10 MG/2 ML VIAL 5 MG IV PUSH (00:52)
[2024-04-15] MEDS: PROCHLORPERAZINE EDISYLATE 10 MG/2 ML VIAL (00:53)
[2024-04-15] MEDS: LEVALBUTEROL NEB 1.25 MG/3 ML 0.63 MG INHALATION ×2 (01:05→08:39)
[2024-04-15] MEDS: IPRATROPIUM BR 0.02% INH SOLN 0.5 MG/2.5 ML VIAL INHALATION ×2 (01:05→08:39)
[2024-04-15 05:49] LABS: Basophils Percent Auto 0.4 % (0.2-1.2); Eosinophils Absolute Auto 0.1 K/mm3 (0-0.3); Eosinophils Percent Auto 2.1 % (0-4.4); Hematocrit 32.6 % (37.0-47.0); Hemoglobin 10.6 g/dL (12.0-15.0); Immature Granulocyte Absolute 0.03 K/mm3 (0.00-0.031); Immature Granulocyte Percent A 0.6 % (0-0.5); Lymphocytes Absolute Auto 0.35 K/mm3 (0.9-3.2); Lymphocytes Percent Auto 7.2 % (18.3-44.2); Mean Corpuscular HGB Conc 32.5 g/dl (32-36); Mean Corpuscular Volume 92.4 fl (80-100); Mean Platelet Volume 10.5 fl (7.4-10.4); Monocytes Absolute Auto 0.7 K/mm3 (0.1-0.6); Monocytes Percent Auto 14.7 % (2.6-8.5); Neutrophils Absolute Auto 3.6 K/mm3 (1.3-6.7); Platelet Count Result 309 k/mm3 (150-375); Red Blood Count 3.53 M/mm3 (4.2-5.4); White Blood Count 4.8 K/mm3 (4.5-10.0)
[2024-04-15] MEDS: LEVOTHYROXINE SODIUM 75 MCG TABLET BY MOUTH (05:59)
[2024-04-15 06:03] LABS: INR 1.3; Prothrombin Time 16.9 Seconds (11.1-14.7)
[2024-04-15 06:08] LABS: Alanine Aminotransferase 19 U/L (6-35); Albumin Level 2.7 g/dL (3.5-5.1); Alkaline Phosphatase 98 U/L (38-126); Anion Gap 5 mmol/L (4-12); Aspartate Amino Transferase 26 U/L (14-36); Bilirubin,Total 0.4 mg/dL (0.2-1.3); Blood Urea Nitrogen 21 mg/dL (7-17); Calcium 7.9 mg/dL (8.4-10.2); Carbon Dioxide 36 mmol/L (22-30); Chloride 96 mmol/L (98-107); Estimated CRCL calculation 73 ml/min; Estimated Glomerular Filt Rate > 60; Glucose 86 mg/dL (65-110); Magnesium 1.7 mg/dL (1.6-2.3); Sodium 137 mmol/L (137-145)
[2024-04-15] MEDS: SODIUM CHLORIDE 1 GM TABLET 2 GM PO ×2 (08:31→18:19)
[2024-04-15] MEDS: ASCORBIC ACID 500 MG TABLET 1000 MG PO (08:31)
[2024-04-15] MEDS: CALCIUM CARBONATE (OSCAL) 500 MG TABLET PO (08:32)
[2024-04-15] MEDS: PANTOPRAZOLE 40 MG TABLET PO (08:32)
[2024-04-15] MEDS: ATORVASTATIN 40 MG TABLET PO (08:32)
[2024-04-15] MEDS: AMIODARONE HCL 200 MG TABLET PO (08:32)
[2024-04-15] MEDS: METOPROLOL SUCCINATE EXT REL 50 MG TABCR PO (08:33)
[2024-04-15] MEDS: busPIRone HCL 5 MG TABLET PO ×2 (08:33→18:19)
[2024-04-15] MEDS: LIDOCAINE 5% PATCH 1 PATCH TRANSDERM (08:33)
[2024-04-15] MEDS: FUROSEMIDE INJ 40 MG/4 ML VIAL IV PUSH ×2 (08:33→18:21)
[2024-04-15] MEDS: FLUTICASONE/UMECLIDIN/VILANTER 100-62.5-25 MCG ELLIPTA 1 PUFF INHALATION (08:39)
[2024-04-15] MEDS: FLUTICASONE/SALMETEROL 45-21 MCG INHALER 1 PUFF 2 PUFF INHALATION ×2 (08:39→19:56)
[2024-04-15] MEDS: ENOXAPARIN 100 MG/ML SYRINGE SUB-Q ×2 (08:42→21:01)
[2024-04-15] MEDS: ACETAMINOPHEN 500 MG TABLET 1000 MG PO (08:42)
--- NOTE | 2024-04-15 09:02 | PM.PNPUL ---
Progress Note: A&P Assessment and Plan (1) COPD (chronic obstructive pulmonary disease): Qualifiers: COPD type: unspecified COPD Qualified Code(s): J44.9 - Chronic obstructive pulmonary disease, unspecified Code(s): J44.9 - Chronic obstructive pulmonary disease, unspecified Status: Acute (2) Hypoxemia: Code(s): R09.02 - Hypoxemia Status: Acute (3) Chronic respiratory failure: Qualifiers: Respiratory failure complication: hypoxia Qualified Code(s): J96.11 - Chronic respiratory failure with hypoxia Code(s): J96.10 - Chronic respiratory failure, unspecified whether with hypoxia or hypercapnia Status: Acute Assessment and Plan: This 88-year-old female patient with a history of mild COPD, chronically on maintenance bronchodilators, and chronic hypoxemia managed with supplemental oxygen, has untreated sleep apnea and recent atrial fibrillation for which she is receiving treatment, including anticoagulants. She presented with shortness of breath related to a pneumothorax. Despite the resolution of the pneumothorax, she continued to experience shortness of breath related to congestive heart failure. On physical examination, the patient presented with bilateral crackles, jugular venous distension (JVD), and lower extremity edema despite diuresis, indicating an overall positive fluid balance. The patient was managed with auto CPAP and supplemental oxygen at night while in the medical-surgical back due to persistent nocturnal hypoxemia on oxygen alone. Following a worsening of her respiratory status, she was transferred to the intensive care unit and switched to BiPAP at settings of 12/8, along with supplemental oxygen. Treatment for her atrial fibrillation included full-dose Lovenox and antibiotics. A chest X-ray review showed bilateral pleural effusions and some pulmonary congestion, but no new infiltrates to suggest a lower respiratory tract infection. After diuresis, her cardiorespiratory status improved, and she was transferred back to a regular room. On today's physical exam, the patient continues to exhibit a few crackles at the bases and decreased breath sounds due to persistent pleural effusions. She exhibited no wheezing, and her lower extremity edema has significantly improved. Persistent issues include tachycardia, with a heart rate ranging from 120-134 beats per minute this morning, and she remains on relatively high FiO2. The patient has been using BiPAP support at night. Her grandson was present at the bedside today. Recapping the cardiorespiratory status, the patient has mild sleep apnea, confirmed by a 2009 sleep study that demonstrated successful titration with a requirement of 11 cm of water pressure. However, she has not been utilizing CPAP therapy. Pulmonary function testing approximately 6 years ago indicated mild obstructive airway disease, though these test results are not available for review. Over the years, she has been treated for atrial fibrillation with unsuccessful defibrillation and is currently on daily amiodarone. Echocardiograms have shown severe biatrial enlargement with elevated pulmonary artery systolic pressure at 42 mmHg and an ejection fraction (EF) ranging from 60 to 65%. Severe left atrial enlargement is likely due to left ventricular diastolic dysfunction, common in this age group, leading to pulmonary hypertension exacerbated by untreated sleep-disordered breathing and further complicated by right ventricular dysfunction. Her presentation with bilateral pleural effusions and severe lower extremity edema is clearly related to CHF, with no evidence of lower respiratory tract infection. The plan includes correcting nocturnal hypoxemia through ventilatory support at home. The patient appears to be tolerating BiPAP well during this hospitalization. I discussed the plan with the patient's grandson, emphasizing the need for continued ventilatory support at night, along with supplemental oxygen, to mitigate hypoxemia's effects on her cardiorespiratory status. The need for chronic BiPAP use at home was discussed with the patient, who expressed some objections to using the device long-term. She will likely need a sleep study as an outpatient, as scheduled by her development and planning engineer prior to this hospitalization. Plan: Continue using BiPAP support along with supplemental oxygen. We plan to conduct an ApneaLink assessment to evaluate for any persistent hypoxemia while the patient is receiving treatment for congestive heart failure. She continues to experience tachycardia related to atrial fibrillation, and I will defer management of this to the hospitalist. Cardiology services have not been consulted during this hospitalization. I would discontinue the antibiotic and switch patient to nebulized short-acting bronchodilators on p.r.n. basis as these may worsen tachycardia. (4) Acute on chronic hypoxic respiratory failure: Code(s): J96.21 - Acute and chronic respiratory failure with hypoxia Status: Acute (5) MARC (obstructive sleep apnea): Code(s): G47.33 - Obstructive sleep apnea (adult) (pediatric) Status: Acute (6) CHF (congestive heart failure): Qualifiers: Heart failure type: unspecified Heart failure chronicity: unspecified Qualified Code(s): I50.9 - Heart failure, unspecified Code(s): I50.9 - Heart failure, unspecified Status: Acute (7) Afib: Qualifiers: Atrial fibrillation type: unspecified Qualified Code(s): I48.91 - Unspecified atrial fibrillation Code(s): I48.91 - Unspecified atrial fibrillation Status: Acute Subjective Date/time seen: 04/15/24 09:02 Interval history: Patient returned to [facility] floor after a few day stay in the intensive care unit. Over the last several days and while the patient was in the intensive care unit her treatment included BiPAP support with pressures 12/8 supplemental oxygen 40% FiO2 diuresis subQ heparin of full-dose, and antibiotic. Patient stated that her respiratory status is improved. She used BiPAP support last night along with supplemental oxygen. Currently she has no new respiratory symptoms. She has no fever chills hemoptysis wheezing. Her lower extremity edema has significantly improved. Review of Systems Review of Systems: All systems reviewed & are unremarkable except as noted in HPI and below (HPI and below) Exam Narrative: GENERAL APPEARANCE: Well developed, well nourished, alert and cooperative, and appears to be in mild respiratory distress while on supplemental oxygen SKIN: Inspection of the skin reveals no rashes, ulcerations or petechiae. HEENT: Sclerae anicteric and conjunctivae pink and moist. Extraocular movements were intact and pupils were equal, round. Dry oral mucosa. NECK: Supple. JVD present. There was no thyroid enlargement, and no tenderness, or masses were felt. LUNGS: Crackles bilaterally, less than before, no wheezing CARDIAC: There was irregular rate and rhythm without any murmurs, gallops, rubs. Tachycardic ABDOMEN: Soft and nontender with normal bowel sounds. There was no organomegaly. LYMPH NODES: No lymphadenopathy was appreciated in the neck, axillae or groin. EXTREMITIES: No cyanosis, clubbing. Trace pedal edema. NEUROLOGIC: Alert. Normal affect. Objective Data Vital Signs Vital Signs: Vital Signs - 24 hr 04/14/24 10:00 04/14/24 12:00 04/14/24 12:00 Temperature 36.7 C Pulse Rate 115 H 126 H 114 H Respiratory Rate 28 H Blood Pressure 102/77 Pulse Oximetry 94 Oxygen Delivery Oxygen Flow Rate Fraction of Inspired Oxygen 04/14/24 12:00 04/14/24 14:00 04/14/24 14:12 Temperature Pulse Rate 118 H 102 H Respiratory Rate 22 H Blood Pressure Pulse Oximetry 94 94 Oxygen Delivery High Flow Therapy with Na High Flow Therapy with Na Oxygen Flow Rate 40 40 Fraction of Inspired Oxygen 60 60 04/14/24 14:12 04/14/24 14:26 04/14/24 16:00 Temperature Pulse Rate 102 H 109 H 123 H Respiratory Rate 22 H 27 H Blood Pressure Pulse Oximetry Oxygen Delivery Oxygen Flow Rate Fraction of Inspired Oxygen 04/14/24 16:00 04/14/24 16:00 04/14/24 18:00 Temperature 36.8 C Pulse Rate 115 H 115 H Respiratory Rate 20 Blood Pressure 113/82 Pulse Oximetry 92 92 Oxygen Delivery High Flow Therapy with Na Oxygen Flow Rate 40 Fraction of Inspired Oxygen 60 04/14/24 19:08 04/14/24 19:10 04/14/24 19:10 Temperature 36.6 C Pulse Rate 113 H 123 H 123 H Respiratory Rate 20 22 H 22 H Blood Pressure 133/88 Pulse Oximetry 97 93 Oxygen Delivery High Flow Therapy with Na Oxygen Flow Rate 40 Fraction of Inspired Oxygen 60 04/14/24 19:23 04/14/24 20:00 04/14/24 20:00 Temperature 36.6 C Pulse Rate 120 H 122 H Respiratory Rate 22 H 20 Blood Pressure Pulse Oximetry 93 93 Oxygen Delivery High Flow Therapy with Na Oxygen Flow Rate 40 Fraction of Inspired Oxygen 60 04/14/24 20:00 04/14/24 22:00 04/14/24 22:18 Temperature Pulse Rate 121 H 104 H 121 H Respiratory Rate 23 H Blood Pressure Pulse Oximetry 94 Oxygen Delivery BiPAP Oxygen Flow Rate Fraction of Inspired Oxygen 04/15/24 00:00 04/15/24 00:00 04/15/24 00:20 Temperature 36.6 C Pulse Rate 112 H 106 H Respiratory Rate 20 Blood Pressure 116/88 Pulse Oximetry 94 94 Oxygen Delivery BiPAP Oxygen Flow Rate Fraction of Inspired Oxygen 45 04/15/24 01:05 04/15/24 01:05 04/15/24 01:18 Temperature Pulse Rate 103 H 103 H 94 Respiratory Rate 18 18 18 Blood Pressure Pulse Oximetry 94 Oxygen Delivery BiPAP Oxygen Flow Rate Fraction of Inspired Oxygen 04/15/24 02:00 04/15/24 04:00 04/15/24 04:00 Temperature Pulse Rate 103 H 96 Respiratory Rate Blood Pressure Pulse Oximetry 96 Oxygen Delivery BiPAP Oxygen Flow Rate Fraction of Inspired Oxygen 40 04/15/24 04:00 04/15/24 05:56 04/15/24 05:59 Temperature 36.5 C Pulse Rate 105 H 113 H Respiratory Rate 20 Blood Pressure 125/71 Pulse Oximetry 97 94 Oxygen Delivery High Flow Therapy with Na Oxygen Flow Rate 40 Fraction of Inspired Oxygen 55 04/15/24 08:00 04/15/24 08:05 04/15/24 08:32 Temperature 36.5 C Pulse Rate 123 H 125 H Respiratory Rate 22 H Blood Pressure 108/63 Pulse Oximetry 96 94 Oxygen Delivery High Flow Therapy with Na Oxygen Flow Rate 40 Fraction of Inspired Oxygen 55 04/15/24 08:33 04/15/24 08:40 04/15/24 08:40 Temperature Pulse Rate 125 H 124 H Respiratory Rate 18 Blood Pressure Pulse Oximetry 95 Oxygen Delivery High Flow Therapy with Na Oxygen Flow Rate 40 Fraction of Inspired Oxygen 55 04/15/24 08:57 Temperature Pulse Rate 118 H Respiratory Rate 18 Blood Pressure Pulse Oximetry Oxygen Delivery Oxygen Flow Rate Fraction of Inspired Oxygen Intake/Output Intake/Output: Intake & Output 04/12/24 04/13/24 04/14/24 04/15/24 23:59 23:59 23:59 23:59 Intake Total 7587 039 0193 450 Output Total 500 1050 3450 100 Balance 848 -324 -[phone] Meds/Results Medications: Active Medications Generic Name Dose Route Start Last Admin Trade Name Freq PRN Reason Stop Dose Admin Acetaminophen 1,000 mg 03/28/24 09:37 04/15/24 08:42 Acetaminophen 500 Mg Tablet PO 1,000 mg Q6H PRN Administration Mild Pain (1-3) or Fever Amiodarone HCl 200 mg 03/27/24 09:00 04/15/24 08:32 Amiodarone Hcl 200 Mg Tablet PO 200 mg DAILY MIGUEL Administration Ascorbic Acid 1,000 mg 03/27/24 09:00 04/15/24 08:31 Ascorbic Acid 500 Mg Tablet PO 1,000 mg QAM MIGUEL Administration Atorvastatin Calcium 40 mg 03/27/24 09:00 04/15/24 08:32 Atorvastatin 40 Mg Tablet PO 40 mg DAILY MIGUEL Administration Buspirone HCl 5 mg 03/27/24 09:00 04/15/24 08:33 Buspirone Hcl 5 Mg Tablet PO 5 mg BID MIGUEL Administration Calcium Carbonate 500 mg 03/27/24 09:00 04/15/24 08:32 Calcium Carbonate (Oscal) 500 Mg Tablet PO 500 mg QAM MIGUEL Administration Enoxaparin Sodium 100 mg 04/15/24 09:00 04/15/24 08:42 Enoxaparin 100 Mg/Ml Syringe SUB-Q 100 mg Q12H MIGUEL Administration Fluticasone/Umeclidinium/Vilanterol 1 puff 04/04/24 08:00 04/15/24 08:39 Fluticasone/Umeclidin/Vilanter 100-62.5-25 Mcg Ellipta INHALATION 1 puff DAILYRT MIGUEL Administration Furosemide 40 mg 04/10/24 17:00 04/15/24 08:33 Furosemide Inj 40 Mg/4 Ml Vial IV PUSH 40 mg BID MIGUEL Administration Ceftriaxone Sodium 2 gm in 100 mls @ 200 mls/hr 04/13/24 12:00 04/14/24 13:27 Rocephin 2 Gm/Ns 100 Ml IVPB Infused Q24H MIGUEL Infusion Ipratropium [place] 0.5 mg 04/12/24 02:00 04/15/24 08:39 Ipratropium Br 0.02% Inh Soln 0.5 Mg/2.5 Ml Vial INHALATION 0.5 mg Q6HRT MIGUEL Administration Levalbuterol HCl 0.63 mg 04/12/24 02:00 04/15/24 08:39 Levalbuterol Neb 1.25 Mg/3 Ml INHALATION 0.63 mg Q6HRT MIGUEL Administration Levothyroxine Sodium 75 mcg 03/28/24 06:30 04/15/24 05:59 Levothyroxine Sodium 75 Mcg Tablet BY MOUTH 75 mcg DAILY@0630 MIGUEL Administration Lidocaine 1 patch 03/30/24 09:00 04/15/24 08:33 Lidocaine 5% Patch TRANSDERM 1 patch DAILY MIGUEL Administration Melatonin 5 mg 04/13/24 21:00 04/14/24 21:19 Melatonin 5 Mg Tablet PO 5 mg HS MIGUEL Administration Metoprolol Succinate 50 mg 03/27/24 09:00 04/15/24 08:33 Metoprolol Succinate Ext Rel 50 Mg Tabcr PO 50 mg QAM MIGUEL Administration * Home Med * 300 mg 04/14/24 09:00 04/14/24 17:24 Dupilumab [Dupixent SUB-Q 05/14/24 08:59 300 mg Syringe] 300 Mg/2 Ml [id number] MIGUEL Administration Syringe Oxycodone HCl 5 mg 04/08/24 09:35 04/15/24 00:18 Oxycodone Hcl (*Crx) 5 Mg Tab Ir PO 5 mg Q4H PRN Administration Pain Rated 7-10 Pantoprazole Sodium 40 mg 04/13/24 09:00 04/15/24 08:32 Pantoprazole 40 Mg Tablet PO 40 mg QAM MIGUEL Administration Prochlorperazine Edisylate 5 mg 04/15/24 00:39 04/15/24 00:52 Prochlorperazine Edisylate 10 Mg/2 Ml Vial IV PUSH 5 mg Q6H PRN Administration Nausea And Vomiting Fluticasone/Salmeterol 2 puff 04/11/24 20:00 04/15/24 08:39 Fluticasone/Salmeterol 45-21 Mcg Inhaler 1 Puff INHALATION 2 puff Q12HRT MIGUEL Administration Senna/Docusate Sodium 2 tab 04/13/24 12:43 Senna/Docusate Sodium Tablet PO BID PRN Constipation Sodium Chloride 2 gm 04/07/24 17:00 04/15/24 08:31 Sodium Chloride 1 Gm Tablet PO 2 gm BID MIGUEL Administration Radiology Results: ITS Impressions Chest CT 03/26/24 21:50 IMPRESSION: Redemonstration of a right-sided pneumothorax, approximately 15-20% in size with a right posterior medial fifth rib fracture. Head CT 03/26/24 23:09 Impression: No acute intracranial hemorrhage or suspicious mass effect. Cervical Spine CT 03/26/24 23:13 Impression: Straightening and slight reversal of the normal curvature of the cervical spine, likely muscular in origin. Significant degenerative disease, without acute fracture. Chest CTA 03/29/24 08:00 IMPRESSION: 1. Right chest tube in expected position with small right pleural effusion but no pneumothorax. 2. Mild emphysema with mild dependent atelectasis in both lungs. 3. Cardiomegaly with biatrial enlargement. 4. Enlargement of the central pulmonary arteries consistent with pulmonary arterial hypertension. 5. Recent-appearing nondisplaced fractures of the posterior right fifth and sixth ribs. Venous Doppler Study 04/12/24 14:56 IMPRESSION: 1. No deep venous thrombosis within the bilateral lower extremities. Chest X-Ray 04/14/24 06:20 Impression: [id number] bilateral pleural effusions with bibasilar pulmonary edema/atelectasis. Labs Labs: Laboratory Results - last 24 hr 04/15/24 05:08 WBC 4.8 RBC 3.53 L Hgb 10.6 L Hct 32.6 L MCV 92.4 MCH 30.0 MCHC 32.5 RDW 15.0 H Plt Count 309 MPV 10.5 H Immature Gran % (Auto) 0.6 H Neut % (Auto) 75.0 H Lymph % (Auto) 7.2 L [place] % (Auto) 14.7 H Eos % (Auto) 2.1 Baso % (Auto) 0.4 Lymph # (Auto) 0.35 L [place] # (Auto) 0.7 H Eos # (Auto) 0.1 Baso # (Auto) 0.0 Abs Immat Gran (auto) 0.03 Absolute Neuts (auto) 3.6 Absolute Nucleated RBC 0.000 Nucleated RBC % 0.0 PT 16.9 H INR 1.3 Sodium 137 Potassium 3.0 L Chloride 96 L Carbon Dioxide 36 H Anion Gap 5 BUN 21 H D Creatinine 0.52 L Estim Creat Clear Calc 73 Estimated GFR > 60 Glucose 86 Calcium 7.9 L Magnesium 1.7 Total Bilirubin 0.4 AST 26 ALT 19 Alkaline Phosphatase 98 Total Protein 6.0 L Albumin 2.7 L
[2024-04-15] MEDS: POTASSIUM CHLORIDE INJ 40 MEQ in SODIUM CHLORIDE 0.9% IV 500 ML 130 MEQ IVPB (15:14)
[2024-04-15] MEDS: MAGNESIUM OXIDE 400 MG TABLET PO (15:14)
[2024-04-15] MEDS: POTASSIUM CHLORIDE 20 MEQ PACKET (FOR LIQUID) 40 MEQ PO (15:14)
--- NOTE | 2024-04-15 17:00 | PM.IMPN ---
Progress Note: A&P Assessment and Plan (1) Pneumothorax: Qualifiers: Pneumothorax type: spontaneous, primary Qualified Code(s): J93.11 - Primary spontaneous pneumothorax Code(s): J93.9 - Pneumothorax, unspecified Status: Acute (2) MARC (obstructive sleep apnea): Code(s): G47.33 - Obstructive sleep apnea (adult) (pediatric) Status: Acute (3) Chronic respiratory failure: Qualifiers: Respiratory failure complication: hypoxia Qualified Code(s): J96.11 - Chronic respiratory failure with hypoxia Code(s): J96.10 - Chronic respiratory failure, unspecified whether with hypoxia or hypercapnia Status: Acute (4) COPD (chronic obstructive pulmonary disease): Qualifiers: COPD type: unspecified COPD Qualified Code(s): J44.9 - Chronic obstructive pulmonary disease, unspecified Code(s): J44.9 - Chronic obstructive pulmonary disease, unspecified Status: Acute (5) Closed rib fracture: Code(s): S22.39XA - Fracture of one rib, unspecified side, initial encounter for closed fracture Status: Acute (6) GERD (gastroesophageal reflux disease): Qualifiers: Esophagitis presence: without esophagitis Qualified Code(s): K21.9 - Gastro-esophageal reflux disease without esophagitis Code(s): K21.9 - Gastro-esophageal reflux disease without esophagitis Status: Acute (7) Hypothyroidism: Qualifiers: Hypothyroidism type: acquired Qualified Code(s): E03.9 - Hypothyroidism, unspecified Code(s): E03.9 - Hypothyroidism, unspecified Status: Acute (8) Hyperlipidemia: Qualifiers: Hyperlipidemia type: elevated lipoprotein(a) Qualified Code(s): E78.41 - Elevated Lipoprotein(a) Code(s): E78.5 - Hyperlipidemia, unspecified Status: Acute (9) Afib: Qualifiers: Atrial fibrillation type: unspecified Qualified Code(s): I48.91 - Unspecified atrial fibrillation Code(s): I48.91 - Unspecified atrial fibrillation Status: Acute (10) CHF (congestive heart failure): Qualifiers: Heart failure type: unspecified Heart failure chronicity: unspecified Qualified Code(s): I50.9 - Heart failure, unspecified Code(s): I50.9 - Heart failure, unspecified Status: Acute (11) Hypertension: Qualifiers: Hypertension type: primary hypertension Qualified Code(s): I10 - Essential (primary) hypertension Code(s): I10 - Essential (primary) hypertension Status: Acute Plan This is an 88-year-old female presented to the ER after ground level fall. She was getting something out of a cabinet when she lost her balance and fell backwards hitting a chair. She had pain in her right back. She then developed shortness of breath. She came to the ER to be evaluated. She denies head trauma loss of consciousness. She has been ambulatory since the incident. Patient is supposed to be on anticoagulation for atrial fibrillation but ran out of her Eliquis 4 days ago. 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 s/p chest tube removed on 03/29/24 continue monitor COPD acute on chronic chronic hypoxic respiratory failure on home oxygen with acute exacerbation 03/29/2024. IV Lasix received overnight. CTA Negative for PE or pneumonia. on 5 liters oxygen continue bronchodilators monitor Pulmonology on board Diastolic heart failure with exacerbation. Echocardiogram showed EF of 60-65%, mild pulmonary hypertension, diastolic dysfunction is indeterminate CXR today showed bilateral pleural effusion and pulm edema Start Lasix 40mg bid IV monitor Acute on chronic respiratory failure Patient need 1-2 L oxygen and home mostly from CHF exacerbation now with CXR showed pleural effusion and pulm edema Continue lasix and bronchodilators as above Suspecting MARC, Apnea link done last night continue Apnea link tonight per Pulmonology Atrial fibrillation on amiodarone and metoprolol And warfarin 3 mg daily INR in therapeutic range Hyponatremia, resolving Likely secondary to poor oral intake and IV Lasix Provide sodium chloride 1 g b.i.d. p.o. 04/02 Increase sodium chloride to 1 g t.i.d. p.o. 04/05 Na 133 Hypothyroidism On Synthroid 75 mcg daily p.o. Hypertension Amlodipine 5 mg daily p.o. Blood pressure is controlled Hyperlipidemia On Lipitor 40 mg daily p.o. GERD Varicose vein Osteoarthritis 88-year-old female presented with a shortness of breath is found to have acute on chronic respiratory failure secondary to multiple factors with exacerbation of COPD, congestive heart failure obesity with hypoventilation, patient is seen by marine fireman patient been treated with Solu-Medrolronaked and marine fireman as started the patient on non invensive ventilator and titrating, patient clinical symptoms are improved however remains on high oxygen requirement planning to discharge the patient on noninvensive ventilator, will continue to monitor. DVT prophylaxis currently on warfarin INR Code status full code Awaiting improvement in resp failure Subjective Date/time seen: 04/15/24 17:00 Interval history: 88-year-old female presented with a shortness of breath is found to have acute on chronic respiratory failure secondary to multiple factors with exacerbation of COPD, congestive heart failure obesity with hypoventilation, patient is seen by marine fireman patient been treated with Solu-Medrol, ronaked and marine fireman as started the patient on non invensive ventilator and titrating, patient clinical symptoms are improved however remains on high oxygen requirement planning to discharge the patient on noninvensive ventilator, will continue to monitor. Review of Systems Review of Systems: - CONSTITUTIONAL: Denies weight loss, fever and chills. - HEENT: Denies changes in vision and hearing - RESPIRATORY: Reports SOB and denies cough. - CV: Denies palpitations and reports CP. - GI: Denies abdominal pain, nausea, vomiting and diarrhea. - : Denies dysuria and urinary frequency. - MSK: Denies myalgia and joint pain. - SKIN: Denies rash and pruritus. - NEUROLOGICAL: Denies headache and syncope. - PSYCHIATRIC: Denies recent changes in mood. Denies anxiety and depression. All systems reviewed & are unremarkable except as noted in HPI and below Exam Narrative: Elderly frail Patient is comfortable, NAD HEENT: eyes are clear and none icteric LUNGS: Bilateral poor air entry with rhonchi and wheezing. HEART: RR S1S2 ABD: BS+, Soft and nontender Lower extremities: no edema SKIN: nonjaundiced Neuro: grossly intact. Objective Data Vital Signs Vital Signs: Vital Signs - 24 hr 04/14/24 18:00 04/14/24 19:08 04/14/24 19:10 Temperature 36.6 C Pulse Rate 115 H 113 H 123 H Respiratory Rate 20 22 H Blood Pressure 133/88 Pulse Oximetry 97 93 Oxygen Delivery High Flow Therapy with Na Oxygen Flow Rate 40 Fraction of Inspired Oxygen 60 04/14/24 19:10 04/14/24 19:23 04/14/24 20:00 Temperature 36.6 C Pulse Rate 123 H 120 H 122 H Respiratory Rate 22 H 22 H 20 Blood Pressure Pulse Oximetry 93 Oxygen Delivery Oxygen Flow Rate Fraction of Inspired Oxygen 04/14/24 20:00 04/14/24 20:00 04/14/24 22:00 Temperature Pulse Rate 121 H 104 H Respiratory Rate Blood Pressure Pulse Oximetry 93 Oxygen Delivery High Flow Therapy with Na Oxygen Flow Rate 40 Fraction of Inspired Oxygen 60 04/14/24 22:18 04/15/24 00:00 04/15/24 00:00 Temperature Pulse Rate 121 H 112 H Respiratory Rate 23 H Blood Pressure Pulse Oximetry 94 94 Oxygen Delivery BiPAP BiPAP Oxygen Flow Rate Fraction of Inspired Oxygen 45 04/15/24 00:20 04/15/24 01:05 04/15/24 01:05 Temperature 36.6 C Pulse Rate 106 H 103 H 103 H Respiratory Rate 20 18 18 Blood Pressure 116/88 Pulse Oximetry 94 94 Oxygen Delivery BiPAP Oxygen Flow Rate Fraction of Inspired Oxygen 04/15/24 01:18 04/15/24 02:00 04/15/24 04:00 Temperature Pulse Rate 94 103 H 96 Respiratory Rate 18 Blood Pressure Pulse Oximetry Oxygen Delivery Oxygen Flow Rate Fraction of Inspired Oxygen 04/15/24 04:00 04/15/24 04:00 04/15/24 05:56 Temperature 36.5 C Pulse Rate 105 H Respiratory Rate 20 Blood Pressure 125/71 Pulse Oximetry 96 97 94 Oxygen Delivery BiPAP High Flow Therapy with Na Oxygen Flow Rate 40 Fraction of Inspired Oxygen 40 55 04/15/24 05:59 04/15/24 08:00 04/15/24 08:00 Temperature Pulse Rate 113 H 124 H Respiratory Rate Blood Pressure Pulse Oximetry 96 Oxygen Delivery High Flow Therapy with Na Oxygen Flow Rate 40 Fraction of Inspired Oxygen 55 04/15/24 08:05 04/15/24 08:32 04/15/24 08:33 Temperature 36.5 C Pulse Rate 123 H 125 H 125 H Respiratory Rate 22 H Blood Pressure 108/63 Pulse Oximetry 94 Oxygen Delivery Oxygen Flow Rate Fraction of Inspired Oxygen 04/15/24 08:40 04/15/24 08:40 04/15/24 08:57 Temperature Pulse Rate 124 H 118 H Respiratory Rate 18 18 Blood Pressure Pulse Oximetry 95 Oxygen Delivery High Flow Therapy with Na Oxygen Flow Rate 40 Fraction of Inspired Oxygen 55 04/15/24 10:00 04/15/24 11:40 04/15/24 12:00 Temperature 36.4 C Pulse Rate 115 H 118 H Respiratory Rate 24 H Blood Pressure 108/92 H Pulse Oximetry 93 93 Oxygen Delivery High Flow Therapy with Na Oxygen Flow Rate 40 Fraction of Inspired Oxygen 55 04/15/24 12:00 04/15/24 14:00 04/15/24 16:05 Temperature 36.4 C L Pulse Rate 115 H 111 H 128 H Respiratory Rate 20 Blood Pressure 123/66 Pulse Oximetry 94 Oxygen Delivery Oxygen Flow Rate Fraction of Inspired Oxygen Intake/Output Intake/Output: Intake & Output 04/12/24 04/13/24 04/14/24 04/15/24 23:59 23:59 23:59 23:59 Intake Total 4154 079 3105 1600 Output Total 500 1050 3450 100 Balance 720 140 -5680 1500 Meds/Results Medications: Active Medications Generic Name Dose Route Start Last Admin Trade Name Freq PRN Reason Stop Dose Admin Acetaminophen 1,000 mg 03/28/24 09:37 04/15/24 08:42 Acetaminophen 500 Mg Tablet PO 1,000 mg Q6H PRN Administration Mild Pain (1-3) or Fever Amiodarone HCl 200 mg 03/27/24 09:00 04/15/24 08:32 Amiodarone Hcl 200 Mg Tablet PO 200 mg DAILY MIGUEL Administration Ascorbic Acid 1,000 mg 03/27/24 09:00 04/15/24 08:31 Ascorbic Acid 500 Mg Tablet PO 1,000 mg QAM MIGUEL Administration Atorvastatin Calcium 40 mg 03/27/24 09:00 04/15/24 08:32 Atorvastatin 40 Mg Tablet PO 40 mg DAILY MIGUEL Administration Buspirone HCl 5 mg 03/27/24 09:00 04/15/24 08:33 Buspirone Hcl 5 Mg Tablet PO 5 mg BID MIGUEL Administration Calcium Carbonate 500 mg 03/27/24 09:00 04/15/24 08:32 Calcium Carbonate (Oscal) 500 Mg Tablet PO 500 mg QAM MIGUEL Administration Enoxaparin Sodium 100 mg 04/15/24 09:00 04/15/24 08:42 Enoxaparin 100 Mg/Ml Syringe SUB-Q 100 mg Q12H MIGUEL Administration Fluticasone/Umeclidinium/Vilanterol 1 puff 02/15/25 08:00 04/15/24 08:39 Fluticasone/Umeclidin/Vilanter 100-62.5-25 Mcg Ellipta INHALATION 1 puff DAILYRT MIGUEL Administration Furosemide 40 mg 04/10/24 17:00 04/15/24 08:33 Furosemide Inj 40 Mg/4 Ml Vial IV PUSH 40 mg BID MIGUEL Administration Potassium Chloride 40 meq/ 520 mls @ 130 mls/hr 04/15/24 14:30 04/15/24 15:14 Sodium Chloride IVPB 04/15/24 18:29 130 mls/hr ONCE ONE Administration Levalbuterol HCl 0.63 mg 04/15/24 09:27 Levalbuterol Neb 1.25 Mg/3 Ml INHALATION Q6HRT PRN Shortness Of Breath Or Wheezing Levothyroxine Sodium 75 mcg 03/28/24 06:30 04/15/24 05:59 Levothyroxine Sodium 75 Mcg Tablet BY MOUTH 75 mcg DAILY@0630 MIGUEL Administration Lidocaine 1 patch 03/30/24 09:00 04/15/24 08:33 Lidocaine 5% Patch TRANSDERM 1 patch DAILY MIGUEL Administration Melatonin 5 mg 04/13/24 21:00 04/14/24 21:19 Melatonin 5 Mg Tablet PO 5 mg HS MIGUEL Administration Metoprolol Succinate 50 mg 03/27/24 09:00 04/15/24 08:33 Metoprolol Succinate Ext Rel 50 Mg Tabcr PO 50 mg QAM MIGUEL Administration * Home Med * 300 mg 04/14/24 09:00 04/14/24 17:24 Dupilumab [Dupixent SUB-Q 05/14/24 08:59 300 mg Syringe] 300 Mg/2 Ml [id number] MIGUEL Administration Syringe Oxycodone HCl 5 mg 04/08/24 09:35 04/15/24 00:18 Oxycodone Hcl (*Crx) 5 Mg Tab Ir PO 5 mg Q4H PRN Administration Pain Rated 7-10 Pantoprazole Sodium 40 mg 04/13/24 09:00 04/15/24 08:32 Pantoprazole 40 Mg Tablet PO 40 mg QAM MIGUEL Administration Prochlorperazine Edisylate 5 mg 04/15/24 00:39 04/15/24 00:52 Prochlorperazine Edisylate 10 Mg/2 Ml Vial IV PUSH 5 mg Q6H PRN Administration Nausea And Vomiting Fluticasone/Salmeterol 2 puff 04/11/24 20:00 04/15/24 08:39 Fluticasone/Salmeterol 45-21 Mcg Inhaler 1 Puff INHALATION 2 puff Q12HRT MIGUEL Administration Senna/Docusate Sodium 2 tab 04/13/24 12:43 Senna/Docusate Sodium Tablet PO BID PRN Constipation Sodium Chloride 2 gm 04/07/24 17:00 04/15/24 08:31 Sodium Chloride 1 Gm Tablet PO 2 gm BID MIGUEL Administration Radiology Results: ITS Impressions Chest CT 03/26/24 21:50 IMPRESSION: Redemonstration of a right-sided pneumothorax, approximately 15-20% in size with a right posterior medial fifth rib fracture. Head CT 03/26/24 23:09 Impression: No acute intracranial hemorrhage or suspicious mass effect. Cervical Spine CT 03/26/24 23:13 Impression: Straightening and slight reversal of the normal curvature of the cervical spine, likely muscular in origin. Significant degenerative disease, without acute fracture. Chest CTA 03/29/24 08:00 IMPRESSION: 1. Right chest tube in expected position with small right pleural effusion but no pneumothorax. 2. Mild emphysema with mild dependent atelectasis in both lungs. 3. Cardiomegaly with biatrial enlargement. 4. Enlargement of the central pulmonary arteries consistent with pulmonary arterial hypertension. 5. Recent-appearing nondisplaced fractures of the posterior right fifth and sixth ribs. Venous Doppler Study 04/12/24 14:56 IMPRESSION: 1. No deep venous thrombosis within the bilateral lower extremities. Chest X-Ray 04/14/24 06:20 Impression: [id number] bilateral pleural effusions with bibasilar pulmonary edema/atelectasis. Labs Labs: Laboratory Results - last 24 hr 04/15/24 05:08 WBC 4.8 RBC 3.53 L Hgb 10.6 L Hct 32.6 L MCV 92.4 MCH 30.0 MCHC 32.5 RDW 15.0 H Plt Count 309 MPV 10.5 H Immature Gran % (Auto) 0.6 H Neut % (Auto) 75.0 H Lymph % (Auto) 7.2 L [place] % (Auto) 14.7 H Eos % (Auto) 2.1 Baso % (Auto) 0.4 Lymph # (Auto) 0.35 L [place] # (Auto) 0.7 H Eos # (Auto) 0.1 Baso # (Auto) 0.0 Abs Immat Gran (auto) 0.03 Absolute Neuts (auto) 3.6 Absolute Nucleated RBC 0.000 Nucleated RBC % 0.0 PT 16.9 H INR 1.3 Sodium 137 Potassium 3.0 L Chloride 96 L Carbon Dioxide 36 H Anion Gap 5 BUN 21 H D Creatinine 0.52 L Estim Creat Clear Calc 73 Estimated GFR > 60 Glucose 86 Calcium 7.9 L Magnesium 1.7 Total Bilirubin 0.4 AST 26 ALT 19 Alkaline Phosphatase 98 Total Protein 6.0 L Albumin 2.7 L
[2024-04-15] MEDS: MELATONIN 5 MG TABLET PO (20:53)
[2024-04-16] VITALS (20 sets, daily range): BP systolic 100–133; BP diastolic 68–83; PULSE 101–137; RESP 18–24; TEMP 36.4–36.8; O2SAT 93–98
[2024-04-16 03:38] LABS: Alveolar/Arterial O2 Gradient 156.1 mmHg; Base Excess ABG 9.1 mEq/l (+/-2.0); Fractional Inspired Oxygen 40 %; HCO3 ABG 34.1 mEq/l (22.0-26.0); Oxygen Content ABG 15.9 %vol (16.0-22.0); Oxygen Saturation ABG 95.4 % (95.0-100.0); Oxyhemoglobin 94.8 % THb (90.0-100.0); PCO2 ABG 48.2 mmHg (35.0-45.0); PO2 ABG 73.7 mmHg (80.0-100.0); PO2 FiO2 Ratio Arterial Blood 1.84 %; Total Hemoglobin 11.9 g/dL (12.0-18.0); pH ABG 7.467 (7.350-7.450)
[2024-04-16 03:39] LABS: Device NON-INVASIVE VENT; Modified Allen's Test Pass; Non-Invasive Vent Rate 12 /MIN; Site Drawn RIGHT RADIAL
[2024-04-16 03:40] LABS: Non-Invasive Expiratory Pressure 8 CMH2O; Non-Invasive Inspiratory Pressure 12 CMH2O
--- NOTE | 2024-04-16 03:53 | PCRCNOTE ---
Patient's morning ABG was collected early due to patient wanting to come off of NIV unit. Per doctor, order was to receive ABG before removal of unit. Therefore, RT collected ABG before removing patient from NIV unit. Nurse aware.
[2024-04-16 04:38] LABS: Hematocrit 33.5 % (37.0-47.0); Hemoglobin 10.6 g/dL (12.0-15.0); Mean Corpuscular HGB Conc 31.6 g/dl (32-36); Mean Corpuscular Hemoglobin 28.9 pg (26-34); Mean Corpuscular Volume 91.3 fl (80-100); Mean Platelet Volume 10.2 fl (7.4-10.4); Platelet Count Result 295 k/mm3 (150-375); Red Blood Count 3.67 M/mm3 (4.2-5.4); Red Cell Distribution Width 14.9 % (11.5-14.5); White Blood Count 4.6 K/mm3 (4.5-10.0)
[2024-04-16 04:59] LABS: Alanine Aminotransferase 32 U/L (6-35); Alkaline Phosphatase 108 U/L (38-126); Anion Gap 7 mmol/L (4-12); Aspartate Amino Transferase 41 U/L (14-36); Bilirubin,Total 0.5 mg/dL (0.2-1.3); Blood Urea Nitrogen 15 mg/dL (7-17); Calcium 8.1 mg/dL (8.4-10.2); Carbon Dioxide 34 mmol/L (22-30); Chloride 96 mmol/L (98-107); Estimated CRCL calculation 75 ml/min; Estimated Glomerular Filt Rate > 60; Glucose 90 mg/dL (65-110); Magnesium 1.5 mg/dL (1.6-2.3); Potassium 3.6 mmol/L (3.4-5.0); Sodium 137 mmol/L (137-145)
[2024-04-16 04:59] LABS: INR 1.3; Prothrombin Time 16.8 Seconds (11.1-14.7)
[2024-04-16] MEDS: LEVOTHYROXINE SODIUM 75 MCG TABLET BY MOUTH (05:56)
[2024-04-16] MEDS: FLUTICASONE/UMECLIDIN/VILANTER 100-62.5-25 MCG ELLIPTA 1 PUFF INHALATION (07:38)
[2024-04-16] MEDS: FLUTICASONE/SALMETEROL 45-21 MCG INHALER 1 PUFF 2 PUFF INHALATION (07:39)
--- NOTE | 2024-04-16 09:30 | P.PNPL_ITS ---
Progress Note: A&P Assessment and Plan (1) COPD (chronic obstructive pulmonary disease): Qualifiers: COPD type: unspecified COPD Qualified Code(s): J44.9 - Chronic obstructive pulmonary disease, unspecified Code(s): J44.9 - Chronic obstructive pulmonary disease, unspecified Status: Acute (2) Hypoxemia: Code(s): R09.02 - Hypoxemia Status: Acute (3) Chronic respiratory failure: Qualifiers: Respiratory failure complication: hypoxia Qualified Code(s): J96.11 - Chronic respiratory failure with hypoxia Code(s): J96.10 - Chronic respiratory failure, unspecified whether with hypoxia or hypercapnia Status: Acute Assessment and Plan: This 88-year-old female patient with a history of mild COPD, chronically on maintenance bronchodilators, and chronic hypoxemia managed with supplemental oxygen, has untreated sleep apnea and recent atrial fibrillation for which she is receiving treatment, including anticoagulants. She presented with shortness of breath related to a pneumothorax. Despite the resolution of the pneumothorax, she continued to experience shortness of breath related to congestive heart failure. On physical examination, the patient presented with bilateral crackles, jugular venous distension (JVD), and lower extremity edema despite diuresis, indicating an overall positive fluid balance. The patient was managed with auto CPAP and supplemental oxygen at night while in the medical-surgical back due to persistent nocturnal hypoxemia on oxygen alone. Following a worsening of her respiratory status, she was transferred to the intensive care unit and switched to BiPAP at settings of 12/8, along with supplemental oxygen. Treatment for her atrial fibrillation included full-dose Lovenox and antibiotics. A chest X-ray review showed bilateral pleural effusions and some pulmonary congestion, but no new infiltrates to suggest a lower respiratory tract infection. After diuresis, her cardiorespiratory status improved, and she was transferred back to a regular room. Recapping the cardiorespiratory status, the patient has mild sleep apnea, confirmed by a 2010 sleep study that demonstrated successful titration with a requirement of 11 cm of water pressure. However, she has not been utilizing CPAP therapy. Pulmonary function testing approximately 6 years ago indicated mild obstructive airway disease, though these test results are not available for review. Over the years, she has been treated for atrial fibrillation with unsuccessful defibrillation and is currently on daily amiodarone. Echocardiograms have shown severe biatrial enlargement with elevated pulmonary artery systolic pressure at 42 mmHg and an ejection fraction (EF) ranging from 60 to 65%. Severe left atrial enlargement is likely due to left ventricular diastolic dysfunction, common in this age group, leading to pulmonary hy pertension exacerbated by untreated sleep-disordered breathing and further complicated by right ventricular dysfunction. Her presentation with bilateral pleural effusions and severe lower extremity edema is clearly related to CHF, with no evidence of lower respiratory tract infection. The plan includes correcting nocturnal hypoxemia through ventilatory support at home. The patient appears to be tolerating BiPAP well during this hospitalization. ApneaLink study last night on on BiPAP support and FiO2 40% showed no evidence of oxyhemoglobin desaturation. On today's physical exam, the patient continues to exhibit a few crackles at the bases and decreased breath sounds due to persistent pleural effusions. She exhibited no wheezing, and her lower extremity edema has significantly improved. The patient is likely to benefit from ventilatory support at home. For someone with sleep apnea and complex cardiorespiratory conditions, such as biventricular congestive heart failure, atrial fibrillation, elevated pulmonary artery systolic pressure, bilateral pleural effusions, and pulmonary edema, home ventilation offers significant advantages over standard BiPAP support. Home ventilators provide more comprehensive respiratory assistance by delivering a controlled volume of air, ensuring adequate ventilation. This is particularly beneficial for managing hypoventilation and respiratory failure associated with sleep apnea. Home ventilation can also enhance oxygenation and carbon dioxide elimination more effectively than BiPAP alone, addressing issues like hypercapnia and hypoxemia. For patients with multiple comorbidities like this one, home ventilation can better manage the complex interactions between respiratory and cardiovascular systems, potentially reducing hospitalizations. Additionally, it can lead to improved sleep quality, reduced daytime symptoms, and an overall enhancement in quality of life. Plan: Continue with BiPAP support at night. Switch patient to nasal cannula and titrate oxygen flow to keep saturation over 92%. (4) Acute on chronic hypoxic respiratory failure: Code(s): J96.21 - Acute and chronic respiratory failure with hypoxia Status: Acute (5) MARC (obstructive sleep apnea): Code(s): G47.33 - Obstructive sleep apnea (adult) (pediatric) Status: Acute (6) CHF (congestive heart failure): Qualifiers: Heart failure type: unspecified Heart failure chronicity: unspecified Qualified Code(s): I50.9 - Heart failure, unspecified Code(s): I50.9 - Heart failure, unspecified Status: Acute (7) Afib: Qualifiers: Atrial fibrillation type: unspecified Qualified Code(s): I48.91 - Unspecified atrial fibrillation Code(s): I48.91 - Unspecified atrial fibrillation Status: Acute Subjective Date/time seen: 04/16/24 09:30 Interval history: Patient slept well on BiPAP and supplemental oxygen last night. She has no new respiratory symptoms this morning. Son and grandson present at the bedside Review of Systems Review of Systems: All systems reviewed & are unremarkable except as noted in HPI and below (HPI and below) Exam Narrative: GENERAL APPEARANCE: Well developed, well nourished, alert and cooperative, and appears to be in mild respiratory distress while on supplemental oxygen SKIN: Inspection of the skin reveals no rashes, ulcerations or petechiae. HEENT: Sclerae anicteric and conjunctivae pink and moist. Extraocular movements were intact and pupils were equal, round. Dry oral mucosa. NECK: Supple. There was no thyroid enlargement, and no tenderness, or masses were felt. LUNGS: Crackles bilaterally, less than before, no wheezing CARDIAC: There was irregular rate and rhythm without any murmurs, gallops, rubs. Tachycardic ABDOMEN: Soft and nontender with normal bowel sounds. There was no organomegaly. LYMPH NODES: No lymphadenopathy was appreciated in the neck, axillae or groin. EXTREMITIES: No cyanosis, clubbing. Trace pedal edema. NEUROLOGIC: Alert. Normal affect. Objective Data Vital Signs Vital Signs: Vital Signs - 24 hr 04/15/24 10:00 04/15/24 11:40 04/15/24 12:00 Temperature 36.4 C Pulse Rate 115 H 118 H Respiratory Rate 24 H Blood Pressure 108/92 H Pulse Oximetry 93 93 Oxygen Delivery High Flow Therapy with Na Oxygen Flow Rate 40 Fraction of Inspired Oxygen 55 04/15/24 12:00 04/15/24 14:00 04/15/24 16:00 Temperature Pulse Rate 115 H 111 H Respiratory Rate Blood Pressure Pulse Oximetry 94 Oxygen Delivery High Flow Therapy with Na Oxygen Flow Rate 40 Fraction of Inspired Oxygen 55 04/15/24 16:00 04/15/24 16:05 04/15/24 18:00 Temperature 36.4 C L Pulse Rate 114 H 128 H 118 H Respiratory Rate 20 Blood Pressure 123/66 Pulse Oximetry 94 Oxygen Delivery Oxygen Flow Rate Fraction of Inspired Oxygen 04/15/24 19:59 04/15/24 19:59 04/15/24 20:00 Temperature Pulse Rate 115 H Respiratory Rate 18 Blood Pressure Pulse Oximetry 95 96 Oxygen Delivery High Flow Therapy with Na High Flow Therapy with Na Oxygen Flow Rate 40 40 Fraction of Inspired Oxygen 55 55 04/15/24 20:00 04/15/24 20:39 04/15/24 22:00 Temperature 36.4 C Pulse Rate 123 H 130 H 122 H Respiratory Rate 20 Blood Pressure 124/75 Pulse Oximetry 93 Oxygen Delivery Oxygen Flow Rate Fraction of Inspired Oxygen 04/15/24 22:29 04/15/24 23:59 04/16/24 00:00 Temperature 36.4 C Pulse Rate 123 H 123 H Respiratory Rate 24 H 20 Blood Pressure 119/76 Pulse Oximetry 93 95 97 Oxygen Delivery BiPAP BiPAP Oxygen Flow Rate Fraction of Inspired Oxygen 40 04/16/24 00:00 04/16/24 01:45 04/16/24 02:00 Temperature Pulse Rate 106 H 121 H 115 H Respiratory Rate 20 Blood Pressure Pulse Oximetry 95 Oxygen Delivery BiPAP Oxygen Flow Rate Fraction of Inspired Oxygen 04/16/24 04:00 04/16/24 04:00 04/16/24 04:33 Temperature 36.4 C Pulse Rate 128 H 123 H Respiratory Rate 20 Blood Pressure 124/73 Pulse Oximetry 96 96 Oxygen Delivery High Flow Therapy with Na Oxygen Flow Rate 40 Fraction of Inspired Oxygen 55 04/16/24 06:00 04/16/24 07:39 04/16/24 07:39 Temperature Pulse Rate 119 H 122 H Respiratory Rate 18 Blood Pressure Pulse Oximetry 95 Oxygen Delivery High Flow Therapy with Na Oxygen Flow Rate 40 Fraction of Inspired Oxygen 55 04/16/24 08:00 Temperature 36.7 C Pulse Rate 118 H Respiratory Rate 24 H Blood Pressure 122/82 Pulse Oximetry 95 Oxygen Delivery Oxygen Flow Rate Fraction of Inspired Oxygen Intake/Output Intake/Output: Intake & Output 04/13/24 04/14/24 04/15/24 04/16/24 23:59 23:59 23:59 23:59 Intake Total 910 1120 2510 350 Output Total 1050 3450 700 500 Balance -140 -2330 1810 -150 Meds/Results Medications: Active Medications Generic Name Dose Route Start Last Admin Trade Name Freq PRN Reason Stop Dose Admin Acetaminophen 1,000 mg 03/28/24 09:37 04/15/24 08:42 Acetaminophen 500 Mg Tablet PO 1,000 mg Q6H PRN Administration Mild Pain (1-3) or Fever Amiodarone HCl 200 mg 03/27/24 09:00 04/15/24 08:32 Amiodarone Hcl 200 Mg Tablet PO 200 mg DAILY MIGUEL Administration Ascorbic Acid 1,000 mg 03/27/24 09:00 04/15/24 08:31 Ascorbic Acid 500 Mg Tablet PO 1,000 mg QAM MIGUEL Administration Atorvastatin Calcium 40 mg 03/27/24 09:00 04/15/24 08:32 Atorvastatin 40 Mg Tablet PO 40 mg DAILY MIGUEL Administration Buspirone HCl 5 mg 03/27/24 09:00 04/15/24 18:19 Buspirone Hcl 5 Mg Tablet PO 5 mg BID MIGUEL Administration Calcium Carbonate 500 mg 03/27/24 09:00 04/15/24 08:32 Calcium Carbonate (Oscal) 500 Mg Tablet PO 500 mg QAM MIGUEL Administration Enoxaparin Sodium 100 mg 04/15/24 09:00 04/15/24 21:01 Enoxaparin 100 Mg/Ml Syringe SUB-Q 100 mg Q12H MIGUEL Administration Fluticasone/Umeclidinium/Vilanterol 1 puff 04/04/24 08:00 04/16/24 07:38 Fluticasone/Umeclidin/Vilanter 100-62.5-25 Mcg Ellipta INHALATION 1 puff DAILYRT MIUGEL Administration Furosemide 40 mg 04/10/24 17:00 04/15/24 18:21 Furosemide Inj 40 Mg/4 Ml Vial IV PUSH 40 mg BID MIGUEL Administration Levalbuterol HCl 0.63 mg 04/15/24 09:27 Levalbuterol Neb 1.25 Mg/3 Ml INHALATION Q6HRT PRN Shortness Of Breath Or Wheezing Levothyroxine Sodium 75 mcg 03/28/24 06:30 04/16/24 05:56 Levothyroxine Sodium 75 Mcg Tablet BY MOUTH 75 mcg DAILY@0630 MIGUEL Administration Lidocaine 1 patch 03/30/24 09:00 04/15/24 08:33 Lidocaine 5% Patch TRANSDERM 1 patch DAILY MIGUEL Administration Melatonin 5 mg 04/13/24 21:00 04/15/24 20:53 Melatonin 5 Mg Tablet PO 5 mg HS MIGUEL Administration Metoprolol Succinate 50 mg 03/27/24 09:00 04/15/24 08:33 Metoprolol Succinate Ext Rel 50 Mg Tabcr PO 50 mg QAM MIGUEL Administration * Home Med * 300 mg 04/14/24 09:00 04/14/24 17:24 Dupilumab [Dupixent SUB-Q 05/14/24 08:59 300 mg Syringe] 300 Mg/2 Ml [id number] MIGUEL Administration Syringe Oxycodone HCl 5 mg 04/08/24 09:35 04/15/24 20:53 Oxycodone Hcl (*Crx) 5 Mg Tab Ir PO 5 mg Q4H PRN Administration Pain Rated 7-10 Pantoprazole Sodium 40 mg 04/13/24 09:00 04/15/24 08:32 Pantoprazole 40 Mg Tablet PO 40 mg QAM MIGUEL Administration Prochlorperazine Edisylate 5 mg 04/15/24 00:39 04/15/24 00:52 Prochlorperazine Edisylate 10 Mg/2 Ml Vial IV PUSH 5 mg Q6H PRN Administration Nausea And Vomiting Fluticasone/Salmeterol 2 puff 04/11/24 20:00 04/16/24 07:39 Fluticasone/Salmeterol 45-21 Mcg Inhaler 1 Puff INHALATION 2 puff Q12HRT MIGUEL Administration Senna/Docusate Sodium 2 tab 04/13/24 12:43 Senna/Docusate Sodium Tablet PO BID PRN Constipation Sodium Chloride 2 gm 04/07/24 17:00 04/15/24 18:19 Sodium Chloride 1 Gm Tablet PO 2 gm BID MIGUEL Administration Radiology Results: ITS Impressions Chest CT 03/26/24 21:50 IMPRESSION: Redemonstration of a right-sided pneumothorax, approximately 15-20% in size with a right posterior medial fifth rib fracture. Head CT 03/26/24 23:09 Impression: No acute intracranial hemorrhage or suspicious mass effect. Cervical Spine CT 03/26/24 23:13 Impression: Straightening and slight reversal of the normal curvature of the cervical spine, likely muscular in origin. Significant degenerative disease, without acute fracture. Chest CTA 03/29/24 08:00 IMPRESSION: 1. Right chest tube in expected position with small right pleural effusion but no pneumothorax. 2. Mild emphysema with mild dependent atelectasis in both lungs. 3. Cardiomegaly with biatrial enlargement. 4. Enlargement of the central pulmonary arteries consistent with pulmonary arterial hypertension. 5. Recent-appearing nondisplaced fractures of the posterior right fifth and sixth ribs. Venous Doppler Study 04/12/24 14:56 IMPRESSION: 1. No deep venous thrombosis within the bilateral lower extremities. Chest X-Ray 04/14/24 06:20 Impression: [id number] bilateral pleural effusions with bibasilar pulmonary edema/atelectasis. Labs Labs: Laboratory Results - last 24 hr 04/16/24 04/16/24 04/16/24 03:21 04:19 04:20 WBC 4.6 RBC 3.67 L Hgb 10.6 L Hct 33.5 L MCV 91.3 MCH 28.9 MCHC 31.6 L RDW 14.9 H Plt Count 295 MPV 10.2 PT 16.8 H INR 1.3 Puncture Site Right radial ABG pH 7.467 H ABG pCO2 48.2 H ABG pO2 73.7 L ABG PO2/FiO2 Ratio 1.84 ABG HCO3 34.1 H ABG O2 Saturation 95.4 ABG O2 Content 15.9 L ABG Base Excess 9.1 A-a Gradient 156.1 Oxyhemoglobin 94.8 Total Hemoglobin 11.9 L O2 Delivery Device Non-invasive vent O2 Liters/Min Not Reportable Vent Rate 12 FiO2 40 Expiratory Pressure 8 Inspiratory Pressure 12 Sodium 137 Potassium 3.6 Chloride 96 L Carbon Dioxide 34 H Anion Gap 7 BUN 15 D Creatinine 0.50 L Estim Creat Clear Calc 75 Estimated GFR > 60 Glucose 90 Calcium 8.1 L Magnesium 1.5 L Total Bilirubin 0.5 AST 41 H ALT 32 Alkaline Phosphatase 108 Total Protein 6.0 L Albumin 3.0 L
[2024-04-16] MEDS: ASCORBIC ACID 500 MG TABLET 1000 MG PO (10:08)
[2024-04-16] MEDS: LIDOCAINE 5% PATCH 1 PATCH TRANSDERM (10:08)
[2024-04-16] MEDS: ENOXAPARIN 100 MG/ML SYRINGE SUB-Q ×2 (10:08→21:14)
[2024-04-16] MEDS: CALCIUM CARBONATE (OSCAL) 500 MG TABLET PO (10:08)
[2024-04-16] MEDS: AMIODARONE HCL 200 MG TABLET PO (10:08)
[2024-04-16] MEDS: METOPROLOL SUCCINATE EXT REL 50 MG TABCR PO (10:08)
[2024-04-16] MEDS: FUROSEMIDE INJ 40 MG/4 ML VIAL IV PUSH ×2 (10:08→18:01)
[2024-04-16] MEDS: busPIRone HCL 5 MG TABLET PO ×2 (10:09→18:02)
[2024-04-16] MEDS: ATORVASTATIN 40 MG TABLET PO (10:09)
[2024-04-16] MEDS: PANTOPRAZOLE 40 MG TABLET PO (10:09)
[2024-04-16] MEDS: SODIUM CHLORIDE 1 GM TABLET 2 GM PO ×2 (10:09→18:02)
[2024-04-16] MEDS: METOPROLOL TARTRATE 12.5 MG TABLET PO (11:31)
[2024-04-16] MEDS: MAGNESIUM SULF 2 GM/WATER 50ML 2 GM/50 ML BAG IVPB (11:32)
[2024-04-16] MEDS: POTASSIUM CHLORIDE 20 MEQ ER TABLET 40 MEQ PO (11:32)
[2024-04-16 13:35] LABS: Influenza A QL RT-PCR Negative (Negative); Influenza B QL RT-PCR Negative (Negative); RSV RNA, RT-PCR Negative (Negative); SARS-CoV-2 RNA PCR Positive (Negative)
--- NOTE | 2024-04-16 14:46 | PCPTNOTE ---
attempted PT re-evaluation, per RN- pt is on increased O2 at 50L currently and 45% airvo and pt's HR is elevated lying supine, RN requested to pass today, will follow
--- NOTE | 2024-04-16 18:51 | PM.IMPN ---
Progress Note: A&P Assessment and Plan (1) Pneumothorax: Qualifiers: Pneumothorax type: spontaneous, primary Qualified Code(s): J93.11 - Primary spontaneous pneumothorax Code(s): J93.9 - Pneumothorax, unspecified Status: Acute (2) MARC (obstructive sleep apnea): Code(s): G47.33 - Obstructive sleep apnea (adult) (pediatric) Status: Acute (3) Chronic respiratory failure: Qualifiers: Respiratory failure complication: hypoxia Qualified Code(s): J96.11 - Chronic respiratory failure with hypoxia Code(s): J96.10 - Chronic respiratory failure, unspecified whether with hypoxia or hypercapnia Status: Acute (4) COPD (chronic obstructive pulmonary disease): Qualifiers: COPD type: unspecified COPD Qualified Code(s): J44.9 - Chronic obstructive pulmonary disease, unspecified Code(s): J44.9 - Chronic obstructive pulmonary disease, unspecified Status: Acute (5) Closed rib fracture: Code(s): S22.39XA - Fracture of one rib, unspecified side, initial encounter for closed fracture Status: Acute (6) GERD (gastroesophageal reflux disease): Qualifiers: Esophagitis presence: without esophagitis Qualified Code(s): K21.9 - Gastro-esophageal reflux disease without esophagitis Code(s): K21.9 - Gastro-esophageal reflux disease without esophagitis Status: Acute (7) Hypothyroidism: Qualifiers: Hypothyroidism type: acquired Qualified Code(s): E03.9 - Hypothyroidism, unspecified Code(s): E03.9 - Hypothyroidism, unspecified Status: Acute (8) Hyperlipidemia: Qualifiers: Hyperlipidemia type: elevated lipoprotein(a) Qualified Code(s): E78.41 - Elevated Lipoprotein(a) Code(s): E78.5 - Hyperlipidemia, unspecified Status: Acute (9) Afib: Qualifiers: Atrial fibrillation type: unspecified Qualified Code(s): I48.91 - Unspecified atrial fibrillation Code(s): I48.91 - Unspecified atrial fibrillation Status: Acute (10) CHF (congestive heart failure): Qualifiers: Heart failure type: unspecified Heart failure chronicity: unspecified Qualified Code(s): I50.9 - Heart failure, unspecified Code(s): I50.9 - Heart failure, unspecified Status: Acute (11) Hypertension: Qualifiers: Hypertension type: primary hypertension Qualified Code(s): I10 - Essential (primary) hypertension Code(s): I10 - Essential (primary) hypertension Status: Acute Plan This is an 88-year-old female presented to the ER after ground level fall. She was getting something out of a cabinet when she lost her balance and fell backwards hitting a chair. She had pain in her right back. She then developed shortness of breath. She came to the ER to be evaluated. She denies head trauma loss of consciousness. She has been ambulatory since the incident. Patient is supposed to be on anticoagulation for atrial fibrillation but ran out of her Eliquis 4 days ago. She has been prescribed Coumadin by her bulk folder but has not started taking Acute pneumothorax From Fall s/p needle decompression CT chest performed which showed right-sided pneumothorax with subcutaneous air along the right anterolateral chest wall and posterior medial chest wall. s/p chest tube removed on 03/29/24 continue monitor COPD acute on chronic chronic hypoxic respiratory failure on home oxygen with acute exacerbation 03/29/2024. IV Lasix received overnight. CTA Negative for PE or pneumonia. on 5 liters oxygen continue bronchodilators monitor Pulmonology on board Diastolic heart failure with exacerbation. Echocardiogram showed EF of 60-65%, mild pulmonary hypertension, diastolic dysfunction is indeterminate CXR today showed bilateral pleural effusion and pulm edema Start Lasix 40mg bid IV monitor Acute on chronic respiratory failure Patient need 1-2 L oxygen and home mostly from CHF exacerbation now with CXR showed pleural effusion and pulm edema Continue lasix and bronchodilators as above Suspecting MARC, Apnea link done last night continue Apnea link tonight per Pulmonology Atrial fibrillation on amiodarone and metoprolol And warfarin 3 mg daily INR in therapeutic range Hyponatremia, resolving Likely secondary to poor oral intake and IV Lasix Provide sodium chloride 1 g b.i.d. p.o. 04/02 Increase sodium chloride to 1 g t.i.d. p.o. 04/05 Na 133 Hypothyroidism On Synthroid 75 mcg daily p.o. Hypertension Amlodipine 5 mg daily p.o. Blood pressure is controlled Hyperlipidemia On Lipitor 40 mg daily p.o. GERD Varicose vein Osteoarthritis 88-year-old female presented with a shortness of breath is found to have acute on chronic respiratory failure secondary to multiple factors with exacerbation of COPD, congestive heart failure obesity with hypoventilation, patient is seen by [employer] patient been treated with Solu-Medrol, diuresed and [employer]man as started the patient on non invensive ventilator and titrating, patient is found to have COVID, patient clinical symptoms are persisting and remains on high oxygen requirement patient is seen by [employer]man and further recommendation to follow. DVT prophylaxis currently on warfarin INR Code status full code Awaiting improvement in resp failure Subjective Date/time seen: 04/16/24 18:51 Interval history: This is to certify patient remains in the hospital for more than 20 days for exacerbation of COPD and CHF with acute on chronic respiratory failure. 88-year-old female presented with a shortness of breath is found to have acute on chronic respiratory failure secondary to multiple factors with exacerbation of COPD, congestive heart failure obesity with hypoventilation, patient is seen by [employer]man patient been treated with Solu-Medrol, diuresed and [employer] crewman as started the patient on non invensive ventilator and titrating, patient is found to have COVID, patient clinical symptoms are persisting and remains on high oxygen requirement patient is seen by [employer]ine [employer]man and further recommendation to follow. Review of Systems Review of Systems: - CONSTITUTIONAL: Denies weight loss, fever and chills. - HEENT: Denies changes in vision and hearing - RESPIRATORY: Reports SOB and denies cough. - CV: Denies palpitations and reports CP. - GI: Denies abdominal pain, nausea, vomiting and diarrhea. - : Denies dysuria and urinary frequency. - MSK: Denies myalgia and joint pain. - SKIN: Denies rash and pruritus. - NEUROLOGICAL: Denies headache and syncope. - PSYCHIATRIC: Denies recent changes in mood. Denies anxiety and depression. All systems reviewed & are unremarkable except as noted in HPI and below Exam Narrative: Elderly frail Patient is comfortable, NAD HEENT: eyes are clear and none icteric LUNGS: Bilateral poor air entry with rhonchi and wheezing. HEART: RR S1S2 ABD: BS+, Soft and nontender Lower extremities: no edema SKIN: nonjaundiced Neuro: grossly intact. Objective Data Vital Signs Vital Signs: Vital Signs - 24 hr 04/15/24 19:59 04/15/24 19:59 04/15/24 20:00 Temperature Pulse Rate 115 H Respiratory Rate 18 Blood Pressure Pulse Oximetry 95 96 Oxygen Delivery High Flow Therapy with Na High Flow Therapy with Na Oxygen Flow Rate 40 40 Fraction of Inspired Oxygen 55 55 04/15/24 20:00 04/15/24 20:39 04/15/24 22:00 Temperature 36.4 C Pulse Rate 123 H 130 H 122 H Respiratory Rate 20 Blood Pressure 124/75 Pulse Oximetry 93 Oxygen Delivery Oxygen Flow Rate Fraction of Inspired Oxygen 04/15/24 22:29 04/15/24 23:59 04/16/24 00:00 Temperature 36.4 C Pulse Rate 123 H 123 H Respiratory Rate 24 H 20 Blood Pressure 119/76 Pulse Oximetry 93 95 97 Oxygen Delivery BiPAP BiPAP Oxygen Flow Rate Fraction of Inspired Oxygen 40 04/16/24 00:00 04/16/24 01:45 04/16/24 02:00 Temperature Pulse Rate 106 H 121 H 115 H Respiratory Rate 20 Blood Pressure Pulse Oximetry 95 Oxygen Delivery BiPAP Oxygen Flow Rate Fraction of Inspired Oxygen 04/16/24 04:00 04/16/24 04:00 04/16/24 04:33 Temperature 36.4 C Pulse Rate 128 H 123 H Respiratory Rate 20 Blood Pressure 124/73 Pulse Oximetry 96 96 Oxygen Delivery High Flow Therapy with Na Oxygen Flow Rate 40 Fraction of Inspired Oxygen 55 04/16/24 06:00 04/16/24 07:39 04/16/24 07:39 Temperature Pulse Rate 119 H 122 H Respiratory Rate 18 Blood Pressure Pulse Oximetry 95 Oxygen Delivery High Flow Therapy with Na Oxygen Flow Rate 40 Fraction of Inspired Oxygen 55 04/16/24 08:00 04/16/24 08:00 04/16/24 08:00 Temperature 36.7 C Pulse Rate 118 H 136 H Respiratory Rate 24 H Blood Pressure 122/82 Pulse Oximetry 95 93 Oxygen Delivery High Flow Therapy with Na Oxygen Flow Rate 40 Fraction of Inspired Oxygen 50 04/16/24 10:00 04/16/24 10:08 04/16/24 10:08 Temperature Pulse Rate 123 H 112 H 112 H Respiratory Rate Blood Pressure Pulse Oximetry Oxygen Delivery Oxygen Flow Rate Fraction of Inspired Oxygen 04/16/24 11:00 04/16/24 11:31 04/16/24 12:00 Temperature 36.8 C Pulse Rate 126 H 134 H Respiratory Rate 20 Blood Pressure 100/69 Pulse Oximetry 97 Oxygen Delivery High Flow Therapy with Na Oxygen Flow Rate 40 Fraction of Inspired Oxygen 04/16/24 12:00 04/16/24 12:00 04/16/24 14:00 Temperature Pulse Rate 137 H 117 H Respiratory Rate Blood Pressure Pulse Oximetry 97 Oxygen Delivery High Flow Therapy with Na Oxygen Flow Rate 40 Fraction of Inspired Oxygen 50 04/16/24 16:00 04/16/24 16:00 04/16/24 16:00 Temperature 36.8 C Pulse Rate 118 H 105 H Respiratory Rate 20 Blood Pressure 117/68 Pulse Oximetry 96 98 Oxygen Delivery High Flow Therapy with Na Oxygen Flow Rate 40 Fraction of Inspired Oxygen 50 04/16/24 18:00 Temperature Pulse Rate 101 H Respiratory Rate Blood Pressure Pulse Oximetry Oxygen Delivery Oxygen Flow Rate Fraction of Inspired Oxygen Intake/Output Intake/Output: Intake & Output 04/13/24 04/14/24 04/15/24 04/16/24 23:59 23:59 23:59 23:59 Intake Total 910 1120 2510 1050 Output Total 1050 3450 700 1400 Balance -140 -2330 1810 -350 Meds/Results Medications: Active Medications Generic Name Dose Route Start Last Admin Trade Name Freq PRN Reason Stop Dose Admin Acetaminophen 1,000 mg 03/28/24 09:37 04/15/24 08:42 Acetaminophen 500 Mg Tablet PO 1,000 mg Q6H PRN Administration Mild Pain (1-3) or Fever Amiodarone HCl 200 mg 03/27/24 09:00 04/16/24 10:08 Amiodarone Hcl 200 Mg Tablet PO 200 mg DAILY MIGUEL Administration Ascorbic Acid 1,000 mg 03/27/24 09:00 04/16/24 10:08 Ascorbic Acid 500 Mg Tablet PO 1,000 mg QAM MIGUEL Administration Atorvastatin Calcium 40 mg 03/27/24 09:00 04/16/24 10:09 Atorvastatin 40 Mg Tablet PO 40 mg DAILY MIGUEL Administration Buspirone HCl 5 mg 03/27/24 09:00 04/16/24 18:02 Buspirone Hcl 5 Mg Tablet PO 5 mg BID MIGUEL Administration Calcium Carbonate 500 mg 03/27/24 09:00 04/16/24 10:08 Calcium Carbonate (Oscal) 500 Mg Tablet PO 500 mg QAM MIGUEL Administration Enoxaparin Sodium 100 mg 04/15/24 09:00 04/16/24 10:08 Enoxaparin 100 Mg/Ml Syringe SUB-Q 100 mg Q12H MIGUEL Administration Fluticasone/Umeclidinium/Vilanterol 1 puff 04/04/24 08:00 04/16/24 07:38 Fluticasone/Umeclidin/Vilanter 100-62.5-25 Mcg Ellipta INHALATION 1 puff DAILYRT MIGUEL Administration Furosemide 40 mg 04/10/24 17:00 04/16/24 18:01 Furosemide Inj 40 Mg/4 Ml Vial IV PUSH 40 mg BID MIGUEL Administration Levalbuterol HCl 0.63 mg 04/15/24 09:27 Levalbuterol Neb 1.25 Mg/3 Ml INHALATION Q6HRT PRN Shortness Of Breath Or Wheezing Levothyroxine Sodium 75 mcg 03/28/24 06:30 04/16/24 05:56 Levothyroxine Sodium 75 Mcg Tablet BY MOUTH 75 mcg DAILY@0630 MIGUEL Administration Lidocaine 1 patch 03/30/24 09:00 04/16/24 10:08 Lidocaine 5% Patch TRANSDERM 1 patch DAILY MIGUEL Administration Melatonin 5 mg 04/13/24 21:00 04/15/24 20:53 Melatonin 5 Mg Tablet PO 5 mg HS MIGUEL Administration Metoprolol Succinate 50 mg 03/27/24 09:00 04/16/24 10:08 Metoprolol Succinate Ext Rel 50 Mg Tabcr PO 50 mg QAM MIGUEL Administration Metoprolol Tartrate 12.5 mg 04/16/24 10:50 04/16/24 11:31 Metoprolol Tartrate 12.5 Mg Tablet PO 12.5 mg Q12HR PRN Administration Heart rate > 100 * Home Med * 300 mg 04/14/24 09:00 04/14/24 17:24 Dupilumab [Dupixent SUB-Q 05/14/24 08:59 300 mg Syringe] 300 Mg/2 Ml [id number] MIGUEL Administration Syringe Oxycodone HCl 5 mg 04/08/24 09:35 04/15/24 20:53 Oxycodone Hcl (*Crx) 5 Mg Tab Ir PO 5 mg Q4H PRN Administration Pain Rated 7-10 Pantoprazole Sodium 40 mg 04/13/24 09:00 04/16/24 10:09 Pantoprazole 40 Mg Tablet PO 40 mg QAM MIGUEL Administration Prochlorperazine Edisylate 5 mg 04/15/24 00:39 04/15/24 00:52 Prochlorperazine Edisylate 10 Mg/2 Ml Vial IV PUSH 5 mg Q6H PRN Administration Nausea And Vomiting Fluticasone/Salmeterol 2 puff 04/11/24 20:00 04/16/24 07:39 Fluticasone/Salmeterol 45-21 Mcg Inhaler 1 Puff INHALATION 2 puff Q12HRT MIGUEL Administration Senna/Docusate Sodium 2 tab 04/13/24 12:43 Senna/Docusate Sodium Tablet PO BID PRN Constipation Sodium Chloride 2 gm 04/07/24 17:00 04/16/24 18:02 Sodium Chloride 1 Gm Tablet PO 2 gm BID MIGUEL Administration Radiology Results: ITS Impressions Chest CT 03/26/24 21:50 IMPRESSION: Redemonstration of a right-sided pneumothorax, approximately 15-20% in size with a right posterior medial fifth rib fracture. Head CT 03/26/24 23:09 Impression: No acute intracranial hemorrhage or suspicious mass effect. Cervical Spine CT 03/26/24 23:13 Impression: Straightening and slight reversal of the normal curvature of the cervical spine, likely muscular in origin. Significant degenerative disease, without acute fracture. Chest CTA 03/29/24 08:00 IMPRESSION: 1. Right chest tube in expected position with small right pleural effusion but no pneumothorax. 2. Mild emphysema with mild dependent atelectasis in both lungs. 3. Cardiomegaly with biatrial enlargement. 4. Enlargement of the central pulmonary arteries consistent with pulmonary arterial hypertension. 5. Recent-appearing nondisplaced fractures of the posterior right fifth and sixth ribs. Venous Doppler Study 04/12/24 14:56 IMPRESSION: 1. No deep venous thrombosis within the bilateral lower extremities. Chest X-Ray 04/16/24 12:14 IMPRESSION: 1. Airspace opacities at the lung bases, consistent with atelectasis versus pneumonia. 2. Stable small pleural effusions. 3. Cardiomegaly. Labs Labs: Laboratory Results - last 24 hr 04/16/24 04/16/24 04/16/24 03:21 04:19 04:20 WBC 4.6 RBC 3.67 L Hgb 10.6 L Hct 33.5 L MCV 91.3 MCH 28.9 MCHC 31.6 L RDW 14.9 H Plt Count 295 MPV 10.2 PT 16.8 H INR 1.3 Puncture Site Right radial ABG pH 7.467 H ABG pCO2 48.2 H ABG pO2 73.7 L ABG PO2/FiO2 Ratio 1.84 ABG HCO3 34.1 H ABG O2 Saturation 95.4 ABG O2 Content 15.9 L ABG Base Excess 9.1 A-a Gradient 156.1 Oxyhemoglobin 94.8 Total Hemoglobin 11.9 L O2 Delivery Device Non-invasive vent O2 Liters/Min Not Reportable Vent Rate 12 FiO2 40 Expiratory Pressure 8 Inspiratory Pressure 12 Sodium 137 Potassium 3.6 Chloride 96 L Carbon Dioxide 34 H Anion Gap 7 BUN 15 D Creatinine 0.50 L Estim Creat Clear Calc 75 Estimated GFR > 60 Glucose 90 Calcium 8.1 L Magnesium 1.5 L Total Bilirubin 0.5 AST 41 H ALT 32 Alkaline Phosphatase 108 Total Protein 6.0 L Albumin 3.0 L Influenza A (RT-PCR) Influenza B (RT-PCR) RSV (RT-PCR) SARS-CoV-2 RNA (RT-PCR) 04/16/24 12:25 WBC RBC Hgb Hct MCV MCH MCHC RDW Plt Count MPV PT INR Puncture Site ABG pH ABG pCO2 ABG pO2 ABG PO2/FiO2 Ratio ABG HCO3 ABG O2 Saturation ABG O2 Content ABG Base Excess A-a Gradient Oxyhemoglobin Total Hemoglobin O2 Delivery Device O2 Liters/Min Vent Rate FiO2 Expiratory Pressure Inspiratory Pressure Sodium Potassium Chloride Carbon Dioxide Anion Gap BUN Creatinine Estim Creat Clear Calc Estimated GFR Glucose Calcium Magnesium Total Bilirubin AST ALT Alkaline Phosphatase Total Protein Albumin Influenza A (RT-PCR) Negative Influenza B (RT-PCR) Negative RSV (RT-PCR) Negative SARS-CoV-2 RNA (RT-PCR) Positive A
--- NOTE | 2024-04-16 19:29 | PC.NURSE ---
Dr. Mccord made aware of COVID result. Advised to just monitor at this time.
[2024-04-16] MEDS: oxyCODONE HCL (*CRX) 5 MG TAB IR PO (21:13)
[2024-04-16] MEDS: MELATONIN 5 MG TABLET PO (21:13)
[2024-04-17] VITALS (25 sets, daily range): BP systolic 111–121; BP diastolic 58–82; PULSE 74–122; RESP 19–28; TEMP 36.5–37.1; O2SAT 94–98
[2024-04-17 04:33] LABS: Hemoglobin 10.7 g/dL (12.0-15.0); Mean Corpuscular HGB Conc 32.4 g/dl (32-36); Mean Corpuscular Hemoglobin 29.8 pg (26-34); Mean Corpuscular Volume 91.9 fl (80-100); Mean Platelet Volume 10.5 fl (7.4-10.4); Platelet Count Result 262 k/mm3 (150-375); Red Blood Count 3.59 M/mm3 (4.2-5.4); Red Cell Distribution Width 15.1 % (11.5-14.5); White Blood Count 4.4 K/mm3 (4.5-10.0)
[2024-04-17 04:46] LABS: INR 1.3; Prothrombin Time 16.3 Seconds (11.1-14.7)
[2024-04-17 04:54] LABS: Alanine Aminotransferase 50 U/L (6-35); Alkaline Phosphatase 108 U/L (38-126); Aspartate Amino Transferase 57 U/L (14-36); Carbon Dioxide 36 mmol/L (22-30); Estimated CRCL calculation 76 ml/min; Estimated Glomerular Filt Rate > 60; Glucose 88 mg/dL (65-110); Potassium 3.5 mmol/L (3.4-5.0)
[2024-04-17 04:56] LABS: Anion Gap 5 mmol/L (4-12); Bilirubin,Total 0.6 mg/dL (0.2-1.3); Blood Urea Nitrogen 12 mg/dL (7-17); Calcium 7.9 mg/dL (8.4-10.2); Chloride 95 mmol/L (98-107); Magnesium 1.7 mg/dL (1.6-2.3); Sodium 136 mmol/L (137-145)
[2024-04-17] MEDS: METOPROLOL TARTRATE 12.5 MG TABLET PO (06:09)
[2024-04-17] MEDS: LEVOTHYROXINE SODIUM 75 MCG TABLET BY MOUTH (06:10)
--- NOTE | 2024-04-17 08:22 | P.PNPL_ITS ---
Progress Note: A&P Assessment and Plan (1) COPD (chronic obstructive pulmonary disease): Qualifiers: COPD type: unspecified COPD Qualified Code(s): J44.9 - Chronic obstructive pulmonary disease, unspecified Code(s): J44.9 - Chronic obstructive pulmonary disease, unspecified Status: Acute (2) Hypoxemia: Code(s): R09.02 - Hypoxemia Status: Acute (3) Chronic respiratory failure: Qualifiers: Respiratory failure complication: hypoxia Qualified Code(s): J96.11 - Chronic respiratory failure with hypoxia Code(s): J96.10 - Chronic respiratory failure, unspecified whether with hypoxia or hypercapnia Status: Acute Assessment and Plan: This 88-year-old female patient with a history of mild COPD, chronically on maintenance bronchodilators, and chronic hypoxemia managed with supplemental oxygen, has untreated sleep apnea and recent atrial fibrillation for which she is receiving treatment, including anticoagulants. She presented with shortness of breath related to a pneumothorax. Despite the resolution of the pneumothorax, she continued to experience shortness of breath related to congestive heart failure. On physical examination, the patient presented with bilateral crackles, jugular venous distension (JVD), and lower extremity edema despite diuresis, indicating an overall positive fluid balance. The patient was managed with auto CPAP and supplemental oxygen at night while in the medical-surgical back due to persistent nocturnal hypoxemia on oxygen alone. Following a worsening of her respiratory status, she was transferred to the intensive care unit and switched to BiPAP at settings of 12/8, along with supplemental oxygen. Treatment for her atrial fibrillation included full-dose Lovenox and antibiotics. A chest X-ray review showed bilateral pleural effusions and some pulmonary congestion, but no new infiltrates to suggest a lower respiratory tract infection. After diuresis, her cardiorespiratory status improved, and she was transferred back to a regular room. Recapping the cardiorespiratory status, the patient has mild sleep apnea, confirmed by a 2010 sleep study that demonstrated successful titration with a requirement of 11 cm of water pressure. However, she has not been utilizing CPAP therapy. Pulmonary function testing approximately 6 years ago indicated mild obstructive airway disease, though these test results are not available for review. Over the years, she has been treated for atrial fibrillation with unsuccessful defibrillation and is currently on daily amiodarone. Echocardiograms have shown severe biatrial enlargement with elevated pulmonary artery systolic pressure at 42 mmHg and an ejection fraction (EF) ranging from 60 to 65%. Severe left atrial enlargement is likely due to left ventricular diastolic dysfunction, common in this age group, leading to pulmonary hy pertension exacerbated by untreated sleep-disordered breathing and further complicated by right ventricular dysfunction. Her presentation with bilateral pleural effusions and severe lower extremity edema is clearly related to CHF, with no evidence of lower respiratory tract infection. The plan includes correcting nocturnal hypoxemia through ventilatory support at home. The patient appears to be tolerating BiPAP well during this hospitalization. ApneaLink study on BiPAP support and FiO2 40% showed no evidence of oxyhemoglobin desaturation. During today's physical exam, the patient still presents with a few crackles at the lung bases and decreased breath sounds due to ongoing pleural effusions. There is no wheezing noted, and her lower extremity edema has significantly improved. The patient is currently in isolation following a positive COVID PCR test. Her respiratory status is stable, and she is not exhibiting symptoms such as cough or fever that would suggest COVID-19 pneumonia. In fact, her gas exchange has improved since her transfer from the ICU to the medical back. It is probable that the onset of COVID-19 occurred several days ago, aligning with a decline in her cardiorespiratory status, which required enhanced support and monitoring in the ICU. The patient is likely to benefit from ventilatory support at home. For someone with sleep apnea and complex cardiorespiratory conditions, such as biventricular congestive heart failure, atrial fibrillation, elevated pulmonary artery systolic pressure, bilateral pleural effusions, and pulmonary edema, home ventilation offers significant advantages over standard BiPAP support. Home ventilators provide more comprehensive respiratory assistance by delivering a controlled volume of air, ensuring adequate ventilation. This is particularly beneficial for managing hypoventilation and respiratory failure associated with sleep apnea. Home ventilation can also enhance oxygenation and carbon dioxide elimination more effectively than BiPAP alone, addressing issues like hypercapnia and hypoxemia. For patients with multiple comorbidities like this one, home ventilation can better manage the complex interactions between respir atory and cardiovascular systems, potentially reducing hospitalizations. Additionally, it can lead to improved sleep quality, reduced daytime symptoms, and an overall enhancement in quality of life. The patient appears to be tolerating BiPAP support well, and the recent ApneaLink monitor indicates that nocturnal hypoxemia has been corrected. Considering the significant cardiorespiratory issues, including congestive heart failure, atrial fibrillation, and bilateral pleural effusions, it is imperative to initiate home ventilator support. Without this treatment, the patient is at high risk for adverse clinical outcomes, such as rehospitalization due to cardiorespiratory failure or even . Plan: Continue with BiPAP support at night. Switch patient to nasal cannula and titrate oxygen flow to keep saturation over 92%. No need to initiate treatment for COVID at this point. (4) Acute on chronic hypoxic respiratory failure: Code(s): J96.21 - Acute and chronic respiratory failure with hypoxia Status: Acute (5) MARC (obstructive sleep apnea): Code(s): G47.33 - Obstructive sleep apnea (adult) (pediatric) Status: Acute (6) CHF (congestive heart failure): Qualifiers: Heart failure type: unspecified Heart failure chronicity: unspecified Qualified Code(s): I50.9 - Heart failure, unspecified Code(s): I50.9 - Heart failure, unspecified Status: Acute (7) Afib: Qualifiers: Atrial fibrillation type: unspecified Qualified Code(s): I48.91 - Unspecified atrial fibrillation Code(s): I48.91 - Unspecified atrial fibrillation Status: Acute (8) COVID-19: Code(s): U07.1 - COVID-19 Status: Acute Subjective Date/time seen: 04/17/24 08:22 Interval history: She has no new respiratory complaints. She refused BiPAP support last night, willing to resume it today. She is still on high-flow nasal cannula. No cough fever chills. Tested positive for COVID, currently in isolation Review of Systems Review of Systems: All systems reviewed & are unremarkable except as noted in HPI and below (HPI and below) Exam Narrative: GENERAL APPEARANCE: Well developed, well nourished, alert and cooperative, and appears to be in mild respiratory distress while on supplemental oxygen SKIN: Inspection of the skin reveals no rashes, ulcerations or petechiae. HEENT: Sclerae anicteric and conjunctivae pink and moist. Extraocular movements were intact and pupils were equal, round. Dry oral mucosa. NECK: Supple. There was no thyroid enlargement, and no tenderness, or masses were felt. LUNGS: Crackles bilaterally, less than before, no wheezing CARDIAC: There was irregular rate and rhythm without any murmurs, gallops, rubs. Tachycardic ABDOMEN: Soft and nontender with normal bowel sounds. There was no organomegaly. LYMPH NODES: No lymphadenopathy was appreciated in the neck, axillae or groin. EXTREMITIES: No cyanosis, clubbing. Trace pedal edema. NEUROLOGIC: Alert. Normal affect. Objective Data Vital Signs Vital Signs: Vital Signs - 24 hr 04/16/24 10:00 04/16/24 10:08 04/16/24 10:08 Temperature Pulse Rate 123 H 112 H 112 H Respiratory Rate Blood Pressure Pulse Oximetry Oxygen Delivery Oxygen Flow Rate Fraction of Inspired Oxygen 04/16/24 11:00 04/16/24 11:31 04/16/24 12:00 Temperature 36.8 C Pulse Rate 126 H 134 H Respiratory Rate 20 Blood Pressure 100/69 Pulse Oximetry 97 Oxygen Delivery High Flow Therapy with Na Oxygen Flow Rate 40 Fraction of Inspired Oxygen 04/16/24 12:00 04/16/24 12:00 04/16/24 14:00 Temperature Pulse Rate 137 H 117 H Respiratory Rate Blood Pressure Pulse Oximetry 97 Oxygen Delivery High Flow Therapy with Na Oxygen Flow Rate 40 Fraction of Inspired Oxygen 50 04/16/24 16:00 04/16/24 16:00 04/16/24 16:00 Temperature 36.8 C Pulse Rate 118 H 105 H Respiratory Rate 20 Blood Pressure 117/68 Pulse Oximetry 96 98 Oxygen Delivery High Flow Therapy with Na Oxygen Flow Rate 40 Fraction of Inspired Oxygen 50 04/16/24 18:00 04/16/24 20:00 04/16/24 20:00 Temperature Pulse Rate 101 H 127 H Respiratory Rate Blood Pressure Pulse Oximetry 98 Oxygen Delivery High Flow Therapy with Na Oxygen Flow Rate 40 Fraction of Inspired Oxygen 50 04/16/24 20:16 04/16/24 21:05 04/16/24 22:00 Temperature 36.6 C Pulse Rate 123 H 116 H Respiratory Rate 20 Blood Pressure 133/83 Pulse Oximetry 94 98 Oxygen Delivery High Flow Therapy with Na Oxygen Flow Rate 40 Fraction of Inspired Oxygen 55 04/16/24 23:49 04/17/24 00:00 04/17/24 00:00 Temperature 36.4 C Pulse Rate 110 H 97 Respiratory Rate 20 Blood Pressure Pulse Oximetry 95 95 Oxygen Delivery BiPAP Oxygen Flow Rate Fraction of Inspired Oxygen 40 04/17/24 02:00 04/17/24 02:30 04/17/24 04:00 Temperature 36.9 C Pulse Rate 100 109 H Respiratory Rate 20 Blood Pressure 120/77 Pulse Oximetry 95 96 Oxygen Delivery High Flow Therapy with Na Oxygen Flow Rate 35 Fraction of Inspired Oxygen 50 04/17/24 04:00 04/17/24 04:00 04/17/24 06:00 Temperature Pulse Rate 114 H 120 H Respiratory Rate Blood Pressure Pulse Oximetry 95 Oxygen Delivery High Flow Therapy with Na Oxygen Flow Rate 35 Fraction of Inspired Oxygen 50 04/17/24 06:09 04/17/24 08:15 Temperature 37.1 C Pulse Rate 115 H 122 H Respiratory Rate 20 Blood Pressure 117/73 Pulse Oximetry 98 Oxygen Delivery Oxygen Flow Rate Fraction of Inspired Oxygen Intake/Output Intake/Output: Intake & Output 04/14/24 04/15/24 04/16/24 04/17/24 23:59 23:59 23:59 23:59 Intake Total 1120 2510 1470 350 Output Total 3450 700 3201 Balance -2330 1810 -1731 350 Meds/Results Medications: Active Medications Generic Name Dose Route Start Last Admin Trade Name Freq PRN Reason Stop Dose Admin Acetaminophen 1,000 mg 03/28/24 09:37 04/15/24 08:42 Acetaminophen 500 Mg Tablet PO 1,000 mg Q6H PRN Administration Mild Pain (1-3) or Fever Amiodarone HCl 200 mg 03/27/24 09:00 04/16/24 10:08 Amiodarone Hcl 200 Mg Tablet PO 200 mg DAILY MIGUEL Administration Ascorbic Acid 1,000 mg 03/27/24 09:00 04/16/24 10:08 Ascorbic Acid 500 Mg Tablet PO 1,000 mg QAM MIGUEL Administration Atorvastatin Calcium 40 mg 03/27/24 09:00 04/16/24 10:09 Atorvastatin 40 Mg Tablet PO 40 mg DAILY MIGUEL Administration Buspirone HCl 5 mg 03/27/24 09:00 04/16/24 18:02 Buspirone Hcl 5 Mg Tablet PO 5 mg BID MIGUEL Administration Calcium Carbonate 500 mg 03/27/24 09:00 04/16/24 10:08 Calcium Carbonate (Oscal) 500 Mg Tablet PO 500 mg QAM MIGUEL Administration Enoxaparin Sodium 100 mg 04/15/24 09:00 04/16/24 21:14 Enoxaparin 100 Mg/Ml Syringe SUB-Q 100 mg Q12H MIGUEL Administration Fluticasone/Umeclidinium/Vilanterol 1 puff 04/04/24 08:00 04/16/24 07:38 Fluticasone/Umeclidin/Vilanter 100-62.5-25 Mcg Ellipta INHALATION 1 puff DAILYRT MIGUEL Administration Furosemide 40 mg 04/10/24 17:00 04/16/24 18:01 Furosemide Inj 40 Mg/4 Ml Vial IV PUSH 40 mg BID MIGUEL Administration Levalbuterol HCl 0.63 mg 04/15/24 09:27 Levalbuterol Neb 1.25 Mg/3 Ml INHALATION Q6HRT PRN Shortness Of Breath Or Wheezing Levothyroxine Sodium 75 mcg 03/28/24 06:30 04/17/24 06:10 Levothyroxine Sodium 75 Mcg Tablet BY MOUTH 75 mcg DAILY@0630 MIGUEL Administration Lidocaine 1 patch 03/30/24 09:00 04/16/24 10:08 Lidocaine 5% Patch TRANSDERM 1 patch DAILY MIGUEL Administration Melatonin 5 mg 04/13/24 21:00 04/16/24 21:13 Melatonin 5 Mg Tablet PO 5 mg HS MIGUEL Administration Metoprolol Succinate 50 mg 03/27/24 09:00 04/16/24 10:08 Metoprolol Succinate Ext Rel 50 Mg Tabcr PO 50 mg QAM MIGUEL Administration Metoprolol Tartrate 12.5 mg 04/16/24 10:50 04/17/24 06:09 Metoprolol Tartrate 12.5 Mg Tablet PO 12.5 mg Q12HR PRN Administration Heart rate > 100 * Home Med * 300 mg 04/14/24 09:00 04/14/24 17:24 Dupilumab [Dupixent SUB-Q 05/14/24 08:59 300 mg Syringe] 300 Mg/2 Ml [id number] MIGUEL Administration Syringe Oxycodone HCl 5 mg 04/08/24 09:35 04/16/24 21:13 Oxycodone Hcl (*Crx) 5 Mg Tab Ir PO 5 mg Q4H PRN Administration Pain Rated 7-10 Pantoprazole Sodium 40 mg 04/13/24 09:00 04/16/24 10:09 Pantoprazole 40 Mg Tablet PO 40 mg QAM MIGUEL Administration Prochlorperazine Edisylate 5 mg 04/15/24 00:39 04/15/24 00:52 Prochlorperazine Edisylate 10 Mg/2 Ml Vial IV PUSH 5 mg Q6H PRN Administration Nausea And Vomiting Fluticasone/Salmeterol 2 puff 04/11/24 20:00 04/16/24 07:39 Fluticasone/Salmeterol 45-21 Mcg Inhaler 1 Puff INHALATION 2 puff Q12HRT MIGUEL Administration Senna/Docusate Sodium 2 tab 04/13/24 12:43 Senna/Docusate Sodium Tablet PO BID PRN Constipation Sodium Chloride 2 gm 04/07/24 17:00 04/16/24 18:02 Sodium Chloride 1 Gm Tablet PO 2 gm BID MIGUEL Administration Radiology Results: ITS Impressions Chest CT 03/26/24 21:50 IMPRESSION: Redemonstration of a right-sided pneumothorax, approximately 15-20% in size with a right posterior medial fifth rib fracture. Head CT 03/26/24 23:09 Impression: No acute intracranial hemorrhage or suspicious mass effect. Cervical Spine CT 03/26/24 23:13 Impression: Straightening and slight reversal of the normal curvature of the cervical spine, likely muscular in origin. Significant degenerative disease, without acute fracture. Chest CTA 03/29/24 08:00 IMPRESSION: 1. Right chest tube in expected position with small right pleural effusion but no pneumothorax. 2. Mild emphysema with mild dependent atelectasis in both lungs. 3. Cardiomegaly with biatrial enlargement. 4. Enlargement of the central pulmonary arteries consistent with pulmonary arter ial hypertension. 5. Recent-appearing nondisplaced fractures of the posterior right fifth and sixth ribs. Venous Doppler Study 04/12/24 14:56 IMPRESSION: 1. No deep venous thrombosis within the bilateral lower extremities. Chest X-Ray 04/16/24 12:14 IMPRESSION: 1. Airspace opacities at the lung bases, consistent with atelectasis versus pneumonia. 2. Stable small pleural effusions. 3. Cardiomegaly. Labs Labs: Laboratory Results - last 24 hr 04/16/24 04/17/24 12:25 04:05 WBC 4.4 L RBC 3.59 L Hgb 10.7 L Hct 33.0 L MCV 91.9 MCH 29.8 MCHC 32.4 RDW 15.1 H Plt Count 262 MPV 10.5 H PT 16.3 H INR 1.3 Sodium 136 L Potassium 3.5 Chloride 95 L Carbon Dioxide 36 H Anion Gap 5 BUN 12 Creatinine 0.49 L Estim Creat Clear Calc 76 Estimated GFR > 60 Glucose 88 Calcium 7.9 L Magnesium 1.7 Total Bilirubin 0.6 AST 57 H ALT 50 H Alkaline Phosphatase 108 Total Protein 6.0 L Albumin 3.0 L Influenza A (RT-PCR) Negative Influenza B (RT-PCR) Negative RSV (RT-PCR) Negative SARS-CoV-2 RNA (RT-PCR) Positive A
[2024-04-17] MEDS: CALCIUM CARBONATE (OSCAL) 500 MG TABLET PO (08:27)
[2024-04-17] MEDS: ASCORBIC ACID 500 MG TABLET 1000 MG PO (08:27)
[2024-04-17] MEDS: SODIUM CHLORIDE 1 GM TABLET 2 GM PO ×2 (08:27→17:47)
[2024-04-17] MEDS: AMIODARONE HCL 200 MG TABLET PO (08:28)
[2024-04-17] MEDS: METOPROLOL SUCCINATE EXT REL 50 MG TABCR PO (08:28)
[2024-04-17] MEDS: LIDOCAINE 5% PATCH 1 PATCH TRANSDERM (08:30)
[2024-04-17] MEDS: busPIRone HCL 5 MG TABLET PO ×2 (08:30→17:48)
[2024-04-17] MEDS: PANTOPRAZOLE 40 MG TABLET PO (08:30)
[2024-04-17] MEDS: ENOXAPARIN 100 MG/ML SYRINGE SUB-Q ×2 (08:31→22:30)
[2024-04-17] MEDS: FUROSEMIDE INJ 40 MG/4 ML VIAL IV PUSH ×2 (08:31→17:48)
[2024-04-17] MEDS: ATORVASTATIN 40 MG TABLET PO (08:35)
[2024-04-17] MEDS: FLUTICASONE/UMECLIDIN/VILANTER 100-62.5-25 MCG ELLIPTA 1 PUFF INHALATION (10:19)
[2024-04-17] MEDS: FLUTICASONE/SALMETEROL 45-21 MCG INHALER 1 PUFF 2 PUFF INHALATION ×2 (10:19→21:01)
--- NOTE | 2024-04-17 11:13 | PCPTNOTE ---
Pt currently on BiPap. Nursing requests hold and recheck later if able to reevaluate patient.
--- NOTE | 2024-04-17 15:15 | PCOTNOTE ---
Patient declined therapy services this date. Patient states, to tired, worn out today .
[2024-04-17] MEDS: MELATONIN 5 MG TABLET PO (22:30)
[2024-04-18] VITALS (23 sets, daily range): BP systolic 99–123; BP diastolic 67–80; PULSE 95–130; RESP 20–24; TEMP 36.7–37; O2SAT 90–96
[2024-04-18 05:09] LABS: INR 1.3; Prothrombin Time 16.4 Seconds (11.1-14.7)
[2024-04-18] MEDS: LEVOTHYROXINE SODIUM 75 MCG TABLET BY MOUTH (06:36)
[2024-04-18] MEDS: FLUTICASONE/SALMETEROL 45-21 MCG INHALER 1 PUFF 2 PUFF INHALATION ×2 (08:02→20:36)
[2024-04-18] MEDS: FLUTICASONE/UMECLIDIN/VILANTER 100-62.5-25 MCG ELLIPTA 1 PUFF INHALATION (08:03)
[2024-04-18] MEDS: METOPROLOL SUCCINATE EXT REL 50 MG TABCR PO (09:29)
[2024-04-18] MEDS: LIDOCAINE 5% PATCH 1 PATCH TRANSDERM (09:29)
[2024-04-18] MEDS: ASCORBIC ACID 500 MG TABLET 1000 MG PO (09:29)
[2024-04-18] MEDS: CALCIUM CARBONATE (OSCAL) 500 MG TABLET PO (09:29)
[2024-04-18] MEDS: SODIUM CHLORIDE 1 GM TABLET 2 GM PO ×2 (09:29→16:50)
[2024-04-18] MEDS: ATORVASTATIN 40 MG TABLET PO (09:30)
[2024-04-18] MEDS: busPIRone HCL 5 MG TABLET PO ×2 (09:30→16:50)
[2024-04-18] MEDS: AMIODARONE HCL 200 MG TABLET PO (09:30)
[2024-04-18] MEDS: PANTOPRAZOLE 40 MG TABLET PO (09:30)
[2024-04-18] MEDS: FUROSEMIDE INJ 40 MG/4 ML VIAL IV PUSH ×2 (09:31→16:50)
[2024-04-18] MEDS: ENOXAPARIN 100 MG/ML SYRINGE SUB-Q ×2 (09:31→22:15)
--- NOTE | 2024-04-18 15:26 | P.PNIM_ITS ---
Progress Note: A&P Assessment and Plan (1) Pneumothorax: Qualifiers: Pneumothorax type: spontaneous, primary Qualified Code(s): J93.11 - Primary spontaneous pneumothorax Code(s): J93.9 - Pneumothorax, unspecified Status: Acute (2) MARC (obstructive sleep apnea): Code(s): G47.33 - Obstructive sleep apnea (adult) (pediatric) Status: Acute (3) Chronic respiratory failure: Qualifiers: Respiratory failure complication: hypoxia Qualified Code(s): J96.11 - Chronic respiratory failure with hypoxia Code(s): J96.10 - Chronic respiratory failure, unspecified whether with hypoxia or hypercapnia Status: Acute (4) COPD (chronic obstructive pulmonary disease): Qualifiers: COPD type: unspecified COPD Qualified Code(s): J44.9 - Chronic obstructive pulmonary disease, unspecified Code(s): J44.9 - Chronic obstructive pulmonary disease, unspecified Status: Acute (5) Closed rib fracture: Code(s): S22.39XA - Fracture of one rib, unspecified side, initial encounter for closed fracture Status: Acute (6) GERD (gastroesophageal reflux disease): Qualifiers: Esophagitis presence: without esophagitis Qualified Code(s): K21.9 - Gastro-esophageal reflux disease without esophagitis Code(s): K21.9 - Gastro-esophageal reflux disease without esophagitis Status: Acute (7) Hypothyroidism: Qualifiers: Hypothyroidism type: acquired Qualified Code(s): E03.9 - Hypothyroidism, unspecified Code(s): E03.9 - Hypothyroidism, unspecified Status: Acute (8) Hyperlipidemia: Qualifiers: Hyperlipidemia type: elevated lipoprotein(a) Qualified Code(s): E78.41 - Elevated Lipoprotein(a) Code(s): E78.5 - Hyperlipidemia, unspecified Status: Acute (9) Afib: Qualifiers: Atrial fibrillation type: unspecified Qualified Code(s): I48.91 - Unspecified atrial fibrillation Code(s): I48.91 - Unspecified atrial fibrillation Status: Acute (10) CHF (congestive heart failure): Qualifiers: Heart failure type: unspecified Heart failure chronicity: unspecified Qualified Code(s): I50.9 - Heart failure, unspecified Code(s): I50.9 - Heart failure, unspecified Status: Acute (11) Hypertension: Qualifiers: Hypertension type: primary hypertension Qualified Code(s): I10 - Essential (primary) hypertension Code(s): I10 - Essential (primary) hypertension Status: Acute Plan This is an 88-year-old female presented to the ER after ground level fall. She was getting something out of a cabinet when she lost her balance and fell backwards hitting a chair. She had pain in her right back. She then developed shortness of breath. She came to the ER to be evaluated. She denies head trauma loss of consciousness. She has been ambulatory since the incident. Patient is supposed to be on anticoagulation for atrial fibrillation but ran out of her Eliquis 4 days ago. She has been prescribed Coumadin by her [employer] placer but has not started taking Acute pneumothorax From Fall s/p needle decompression CT chest performed which showed right-sided pneumothorax with subcutaneous air along the right anterolateral chest wall and posterior medial chest wall. s/p chest tube removed on 03/29/24 continue monitor COPD acute on chronic chronic hypoxic respiratory failure on home oxygen with acute exacerbation 03/29/2024. IV Lasix received overnight. CTA Negative for PE or pneumonia. on 5 liters oxygen continue bronchodilators monitor Pulmonology on board Diastolic heart failure with exacerbation. Echocardiogram showed EF of 60-65%, mild pulmonary hypertension, diastolic dysfunction is indeterminate CXR today showed bilateral pleural effusion and pulm edema Start Lasix 40mg bid IV monitor Acute on chronic respiratory failure Patient need 1-2 L oxygen and home mostly from CHF exacerbation now with CXR showed pleural effusion and pulm edema Continue lasix and bronchodilators as above Suspecting MARC, Apnea link done last night continue Apnea link tonight per Pulmonology Atrial fibrillation on amiodarone and metoprolol And warfarin 3 mg daily INR in therapeutic range Hyponatremia, resolving Likely secondary to poor oral intake and IV Lasix Provide sodium chloride 1 g b.i.d. p.o. 04/02 Increase sodium chloride to 1 g t.i.d. p.o. 04/05 Na 133 Hypothyroidism On Synthroid 75 mcg daily p.o. Hypertension Amlodipine 5 mg daily p.o. Blood pressure is controlled Hyperlipidemia On Lipitor 40 mg daily p.o. GERD Varicose vein Osteoarthritis 88-year-old female presented with a shortness of breath is found to have acute on chronic respiratory failure secondary to multiple factors with exacerbation of COPD, congestive heart failure obesity with hypoventilation, patient is seen by deoiling machine operator patient been treated with Solu-Medrol, diuresed and deoiling machine operator as started the patient on non invensive ventilator and titrating, patient with persisting upper respiratory symptoms for over 20 days to further evaluate COVID test was repeated and patient s positive, patient is found to have COVID, her deoiling machine operator does not recommend any treatment, patient clinical symptoms are persisting and remains on high oxygen requirement currently patient on BIPAP unable to provider any ROS, patient is seen by deoiling machine operator and further recommendation to follow. DVT prophylaxis currently on warfarin INR Code status full code Awaiting improvement in resp failure Subjective Date/time seen: 04/17/24 15:26 Interval history: This is to certify patient remains in the hospital for more than 20 days for exacerbation of COPD and CHF with acute on chronic respiratory failure. 88-year-old female presented with a shortness of breath is found to have acute on chronic respiratory failure secondary to multiple factors with exacerbation of COPD, congestive heart failure obesity with hypoventilation, patient is seen by deoiling machine operator patient been treated with Solu-Medrol, diuresed and deoiling machine operator as started the patient on non invensive ventilator and titrating, patient with persisting upper respiratory symptoms for over 20 days to further evaluate COVID test was repeated and patient s positive, patient is found to have COVID, her deoiling machine operator does not recommend any treatment, patient clinical symptoms are persisting and remains on high oxygen requirement currently patient on BIPAP unable to provider any ROS, patient is seen by deoiling machine operator and further recommendation to follow. Review of Systems Review of Systems: - CONSTITUTIONAL: Denies weight loss, fe rosas and chills. - HEENT: Denies changes in vision and he aring - RESPIRATORY: Reports SOB and denies c ough. - CV: Denies palpitations and reports CP . - GI: Denies abdominal pain, nausea, vom iting and diarrhea. - : Denies dysuria and urinary frequen cy. - MSK: Denies myalgia and joint pain. - SKIN: Denies rash and pruritus. - NEUROLOGICAL: Denies headache and sync ope. - PSYCHIATRIC: Denies recent changes in mood. Denies anxiety and depression. All systems reviewed & are unremarkable except as noted in HPI and below Exam Narrative: Elderly frail Patient is comfortable, NAD HEENT: eyes are clear and none icteric LUNGS: Bilateral poor air entry with rhonchi and wheezing. HEART: RR S1S2 ABD: BS+, Soft and nontender Lower extremities: no edema SKIN: nonjaundiced Neuro: grossly intact. Objective Data Vital Signs Vital Signs: Vital Signs - 24 hr 04/17/24 16:10 04/17/24 16:10 04/17/24 16:16 Temperature 36.5 C Pulse Rate 111 H 98 115 H Respiratory Rate 24 H 20 Blood Pressure 111/58 L Pulse Oximetry 95 94 Oxygen Delivery High Flow Therapy with Na Oxygen Flow Rate 35 Fraction of Inspired Oxygen 50 04/17/24 18:00 04/17/24 19:03 04/17/24 19:50 Temperature 37.1 C Pulse Rate 93 104 H 104 H Respiratory Rate 20 20 Blood Pressure 121/82 Pulse Oximetry 96 96 Oxygen Delivery High Flow Therapy with Na Oxygen Flow Rate 35 Fraction of Inspired Oxygen 52 04/17/24 20:00 04/17/24 21:01 04/17/24 21:30 Temperature Pulse Rate 109 H 105 H Respiratory Rate 19 Blood Pressure Pulse Oximetry 94 Oxygen Delivery High Flow Therapy with Na Oxygen Flow Rate 35 Fraction of Inspired Oxygen 50 04/17/24 22:00 04/17/24 23:00 04/18/24 00:00 Temperature 36.9 C Pulse Rate 106 H 108 H 108 H Respiratory Rate 22 H 22 H Blood Pressure 106/67 Pulse Oximetry 96 96 Oxygen Delivery High Flow Therapy with Na Oxygen Flow Rate 35 Fraction of Inspired Oxygen 50 04/18/24 00:00 04/18/24 02:00 04/18/24 04:00 Temperature 37.0 C Pulse Rate 105 H 97 99 Respiratory Rate 20 Blood Pressure 99/67 L Pulse Oximetry 95 Oxygen Delivery Oxygen Flow Rate Fraction of Inspired Oxygen 04/18/24 04:18 04/18/24 04:40 04/18/24 06:00 Temperature Pulse Rate 112 H 97 100 Respiratory Rate 20 Blood Pressure Pulse Oximetry 94 Oxygen Delivery High Flow Therapy with Na Oxygen Flow Rate 35 Fraction of Inspired Oxygen 53 04/18/24 07:51 04/18/24 08:03 04/18/24 08:35 Temperature 36.7 C Pulse Rate 123 H 117 H Respiratory Rate 20 24 H Blood Pressure 120/80 Pulse Oximetry 95 95 92 Oxygen Delivery High Flow Therapy with Na High Flow Therapy with Na Oxygen Flow Rate 35 35 Fraction of Inspired Oxygen 53 40 04/18/24 08:35 04/18/24 08:38 04/18/24 09:29 Temperature Pulse Rate 117 H 109 H Respiratory Rate Blood Pressure Pulse Oximetry 90 Oxygen Delivery High Flow Therapy with Na Oxygen Flow Rate 35 Fraction of Inspired Oxygen 40 04/18/24 09:30 04/18/24 10:00 04/18/24 12:25 Temperature Pulse Rate 109 H 100 119 H Respiratory Rate 24 H Blood Pressure Pulse Oximetry 93 Oxygen Delivery High Flow Therapy with Na Oxygen Flow Rate 35 Fraction of Inspired Oxygen 40 04/18/24 12:25 04/18/24 12:35 04/18/24 12:40 Temperature 36.7 C Pulse Rate 119 H 130 H Respiratory Rate 22 H Blood Pressure 123/74 Pulse Oximetry 92 Oxygen Delivery High Flow Therapy with Na Oxygen Flow Rate 35 Fraction of Inspired Oxygen 04/18/24 14:00 Temperature Pulse Rate 102 H Respiratory Rate Blood Pressure Pulse Oximetry Oxygen Delivery Oxygen Flow Rate Fraction of Inspired Oxygen Intake/Output Intake/Output: Intake & Output 04/15/24 04/16/24 04/17/24 04/18/24 23:59 23:59 23:59 23:59 Intake Total 2510 1470 1690 720 Output Total 700 3201 1700 952 Balance 1810 -1731 -10 -232 Meds/Results Medications: Active Medications Generic Name Dose Route Start Last Admin Trade Name Freq PRN Reason Stop Dose Admin Acetaminophen 1,000 mg 03/28/24 09:37 04/15/24 08:42 Acetaminophen 500 Mg Tablet PO 1,000 mg Q6H PRN Administration Mild Pain (1-3) or Fever Amiodarone HCl 200 mg 03/27/24 09:00 04/18/24 09:30 Amiodarone Hcl 200 Mg Tablet PO 200 mg DAILY MIGUEL Administration Ascorbic Acid 1,000 mg 03/27/24 09:00 04/18/24 09:29 Ascorbic Acid 500 Mg Tablet PO 1,000 mg QAM MIGUEL Administration Atorvastatin Calcium 40 mg 03/27/24 09:00 04/18/24 09:30 Atorvastatin 40 Mg Tablet PO 40 mg DAILY MIGUEL Administration Buspirone HCl 5 mg 03/27/24 09:00 04/18/24 09:30 Buspirone Hcl 5 Mg Tablet PO 5 mg BID MIGUEL Administration Calcium Carbonate 500 mg 03/27/24 09:00 04/18/24 09:29 Calcium Carbonate (Oscal) 500 Mg Tablet PO 500 mg QAM MIGUEL Administration Enoxaparin Sodium 100 mg 04/15/24 09:00 04/18/24 09:31 Enoxaparin 100 Mg/Ml Syringe SUB-Q 100 mg Q12H MIGUEL Administration Fluticasone/Umeclidinium/Vilanterol 1 puff 04/04/24 08:00 04/18/24 08:03 Fluticasone/Umeclidin/Vilanter 100-62.5-25 Mcg Ellipta INHALATION 1 puff DAILYRT MIGUEL Administration Furosemide 40 mg 04/10/24 17:00 04/18/24 09:31 Furosemide Inj 40 Mg/4 Ml Vial IV PUSH 40 mg BID MIGUEL Administration Levalbuterol HCl 0.63 mg 04/15/24 09:27 Levalbuterol Neb 1.25 Mg/3 Ml INHALATION Q6HRT PRN Shortness Of Breath Or Wheezing Levothyroxine Sodium 75 mcg 03/28/24 06:30 04/18/24 06:36 Levothyroxine Sodium 75 Mcg Tablet BY MOUTH 75 mcg DAILY@0630 MIGUEL Administration Lidocaine 1 patch 03/30/24 09:00 04/18/24 09:29 Lidocaine 5% Patch TRANSDERM 1 patch DAILY MIGUEL Administration Melatonin 5 mg 04/13/24 21:00 04/17/24 22:30 Melatonin 5 Mg Tablet PO 5 mg HS MIGUEL Administration Metoprolol Succinate 50 mg 03/27/24 09:00 04/18/24 09:29 Metoprolol Succinate Ext Rel 50 Mg Tabcr PO 50 mg QAM MIGUEL Administration Metoprolol Tartrate 12.5 mg 04/16/24 10:50 04/17/24 06:09 Metoprolol Tartrate 12.5 Mg Tablet PO 12.5 mg Q12HR PRN Administration Heart rate > 100 * Home Med * 300 mg 04/14/24 09:00 04/14/24 17:24 Dupilumab [Dupixent SUB-Q 05/14/24 08:59 300 mg Syringe] 300 Mg/2 Ml [id number] MIGUEL Administration Syringe Pantoprazole Sodium 40 mg 04/13/24 09:00 04/18/24 09:30 Pantoprazole 40 Mg Tablet PO 40 mg QAM MIGUEL Administration Prochlorperazine Edisylate 5 mg 04/15/24 00:39 04/15/24 00:52 Prochlorperazine Edisylate 10 Mg/2 Ml Vial IV PUSH 5 mg Q6H PRN Administration Nausea And Vomiting Fluticasone/Salmeterol 2 puff 04/11/24 20:00 04/18/24 08:02 Fluticasone/Salmeterol 45-21 Mcg Inhaler 1 Puff INHALATION 2 puff Q12HRT MIGUEL Administration Senna/Docusate Sodium 2 tab 04/13/24 12:43 Senna/Docusate Sodium Tablet PO BID PRN Constipation Sodium Chloride 2 gm 04/07/24 17:00 04/18/24 09:29 Sodium Chloride 1 Gm Tablet PO 2 gm BID MIGUEL Administration Radiology Results: ITS Impressions Chest CT 03/26/24 21:50 IMPRESSION: Redemonstration of a right-sided pneumothorax, approximately 15-20% in size with a right posterior medial fifth rib fracture. Head CT 03/26/24 23:09 Impression: No acute intracranial hemorrhage or suspicious mass effect. Cervical Spine CT 03/26/24 23:13 Impression: Straightening and slight reversal of the normal curvature of the cervical spine, likely muscular in origin. Significant degenerative disease, without acute fracture. Chest CTA 03/29/24 08:00 IMPRESSION: 1. Right chest tube in expected position with small right pleural effusion but no pneumothorax. 2. Mild emphysema with mild dependent atelectasis in both lungs. 3. Cardiomegaly with biatrial enlargement. 4. Enlargement of the central pulmonary arteries consistent with pulmonary arterial hypertension. 5. Recent-appearing nondisplaced fractures of the posterior right fifth and sixth ribs. Venous Doppler Study 04/12/24 14:56 IMPRESSION: 1. No deep venous thrombosis within the bilateral lower extremities. Chest X-Ray 04/16/24 12:14 IMPRESSION: 1. Airspace opacities at the lung bases, consistent with atelectasis versus pneumonia. 2. Stable small pleural effusions. 3. Cardiomegaly. Labs Labs: Laboratory Results - last 24 hr 04/18/24 04:20 PT 16.4 H INR 1.3
--- NOTE | 2024-04-18 15:35 | P.PNIM_ITS ---
Progress Note: A&P Assessment and Plan (1) Pneumothorax: Qualifiers: Pneumothorax type: spontaneous, primary Qualified Code(s): J93.11 - Primary spontaneous pneumothorax Code(s): J93.9 - Pneumothorax, unspecified Status: Acute (2) MARC (obstructive sleep apnea): Code(s): G47.33 - Obstructive sleep apnea (adult) (pediatric) Status: Acute (3) Chronic respiratory failure: Qualifiers: Respiratory failure complication: hypoxia Qualified Code(s): J96.11 - Chronic respiratory failure with hypoxia Code(s): J96.10 - Chronic respiratory failure, unspecified whether with hypoxia or hypercapnia Status: Acute (4) COPD (chronic obstructive pulmonary disease): Qualifiers: COPD type: unspecified COPD Qualified Code(s): J44.9 - Chronic obstructive pulmonary disease, unspecified Code(s): J44.9 - Chronic obstructive pulmonary disease, unspecified Status: Acute (5) Closed rib fracture: Code(s): S22.39XA - Fracture of one rib, unspecified side, initial encounter for closed fracture Status: Acute (6) GERD (gastroesophageal reflux disease): Qualifiers: Esophagitis presence: without esophagitis Qualified Code(s): K21.9 - Gastro-esophageal reflux disease without esophagitis Code(s): K21.9 - Gastro-esophageal reflux disease without esophagitis Status: Acute (7) Hypothyroidism: Qualifiers: Hypothyroidism type: acquired Qualified Code(s): E03.9 - Hypothyroidism, unspecified Code(s): E03.9 - Hypothyroidism, unspecified Status: Acute (8) Hyperlipidemia: Qualifiers: Hyperlipidemia type: elevated lipoprotein(a) Qualified Code(s): E78.41 - Elevated Lipoprotein(a) Code(s): E78.5 - Hyperlipidemia, unspecified Status: Acute (9) Afib: Qualifiers: Atrial fibrillation type: unspecified Qualified Code(s): I48.91 - Unspecified atrial fibrillation Code(s): I48.91 - Unspecified atrial fibrillation Status: Acute (10) CHF (congestive heart failure): Qualifiers: Heart failure type: unspecified Heart failure chronicity: unspecified Qualified Code(s): I50.9 - Heart failure, unspecified Code(s): I50.9 - Heart failure, unspecified Status: Acute (11) Hypertension: Qualifiers: Hypertension type: primary hypertension Qualified Code(s): I10 - Essential (primary) hypertension Code(s): I10 - Essential (primary) hypertension Status: Acute Plan This is an 88-year-old female presented to the ER after ground level fall. She was getting something out of a cabinet when she lost her balance and fell backwards hitting a chair. She had pain in her right back. She then developed shortness of breath. She came to the ER to be evaluated. She denies head trauma loss of consciousness. She has been ambulatory since the incident. Patient is supposed to be on anticoagulation for atrial fibrillation but ran out of her Eliquis 4 days ago. She has been prescribed Coumadin by her checker product design but has not started taking Acute pneumothorax From Fall s/p needle decompression CT chest performed which showed right-sided pneumothorax with subcutaneous air along the right anterolateral chest wall and posterior medial chest wall. s/p chest tube removed on 03/29/24 continue monitor COPD acute on chronic chronic hypoxic respiratory failure on home oxygen with acute exacerbation 03/29/2024. IV Lasix received overnight. CTA Negative for PE or pneumonia. on 5 liters oxygen continue bronchodilators monitor Pulmonology on board Diastolic heart failure with exacerbation. Echocardiogram showed EF of 60-65%, mild pulmonary hypertension, diastolic dysfunction is indeterminate CXR today showed bilateral pleural effusion and pulm edema Start Lasix 40mg bid IV monitor Acute on chronic respiratory failure Patient need 1-2 L oxygen and home mostly from CHF exacerbation now with CXR showed pleural effusion and pulm edema Continue lasix and bronchodilators as above Suspecting MARC, Apnea link done last night continue Apnea link tonight per Pulmonology Atrial fibrillation on amiodarone and metoprolol And warfarin 3 mg daily INR in therapeutic range Hyponatremia, resolving Likely secondary to poor oral intake and IV Lasix Provide sodium chloride 1 g b.i.d. p.o. 04/02 Increase sodium chloride to 1 g t.i.d. p.o. 04/05 Na 133 Hypothyroidism On Synthroid 75 mcg daily p.o. Hypertension Amlodipine 5 mg daily p.o. Blood pressure is controlled Hyperlipidemia On Lipitor 40 mg daily p.o. GERD Varicose vein Osteoarthritis 88-year-old female presented with a shortness of breath is found to have acute on chronic respiratory failure secondary to multiple factors with exacerbation of COPD, congestive heart failure obesity with hypoventilation, patient is seen by [employer] managed service sales exec patient been treated with Solu-Medrol, diuresed and [employer] managed service sales exec as started the patient on non invensive ventilator and titrating, patient with persisting upper respiratory symptoms for over 20 days to further evaluate COVID test was repeated and patient s positive, patient is found to have COVID, her [employer] managed service sales exec does not recommend any treatment, patient clinical symptoms are persisting and remains on high oxygen requirement, patient is sitting in the bed, stats feels better not as short of breath as yesterday, patient is seen by [employer] managed service sales exec and further recommendation to follow. DVT prophylaxis currently on warfarin INR Code status full code Awaiting improvement in resp failure Subjective Date/time seen: 04/18/24 15:35 Interval history: This is to certify patient remains in the hospital for more than 20 days for exacerbation of COPD and CHF with acute on chronic respiratory failure. 88-year-old female presented with a shortness of breath is found to have acute on chronic respiratory failure secondary to multiple factors with exacerbation of COPD, congestive heart failure obesity with hypoventilation, patient is seen by [employer] managed service sales exec patient been treated with Solu-Medrol, diuresed and [employer] managed service sales exec as started the patient on non invensive ventilator and titrating, patient with persisting upper respiratory symptoms for over 20 days to further evaluate COVID test was repeated and patient s positive, patient is found to have COVID, her [employer] managed service sales exec does not recommend any treatment, patient clinical symptoms are persisting and remains on high oxygen requirement, patient is sitting in the bed, stats feels better not as short of breath as yesterday, patient is seen by [employer] managed service sales exec and further recommendation to follow. Review of Systems Review of Systems: - CONSTITUTIONAL: Denies weight loss, fe rosas and chills. - HEENT: Denies changes in vision and he aring - RESPIRATORY: Reports SOB and denies c ough. - CV: Denies palpitations and reports CP . - GI: Denies abdominal pain, nausea, vom iting and diarrhea. - : Denies dysuria and urinary frequen cy. - MSK: Denies myalgia and joint pain. - SKIN: Denies rash and pruritus. - NEUROLOGICAL: Denies headache and sync ope. - PSYCHIATRIC: Denies recent changes in mood. Denies anxiety and depression. All systems reviewed & are unremarkable except as noted in HPI and below Exam Narrative: Elderly frail Patient is comfortable, NAD HEENT: eyes are clear and none icteric LUNGS: Bilateral poor air entry with rhonchi and wheezing. HEART: RR S1S2 ABD: BS+, Soft and nontender Lower extremities: no edema SKIN: nonjaundiced Neuro: grossly intact. Objective Data Vital Signs Vital Signs: Vital Signs - 24 hr 04/17/24 16:10 04/17/24 16:10 04/17/24 16:16 Temperature 36.5 C Pulse Rate 111 H 98 115 H Respiratory Rate 24 H 20 Blood Pressure 111/58 L Pulse Oximetry 95 94 Oxygen Delivery High Flow Therapy with Na Oxygen Flow Rate 35 Fraction of Inspired Oxygen 50 04/17/24 18:00 04/17/24 19:03 04/17/24 19:50 Temperature 37.1 C Pulse Rate 93 104 H 104 H Respiratory Rate 20 20 Blood Pressure 121/82 Pulse Oximetry 96 96 Oxygen Delivery High Flow Therapy with Na Oxygen Flow Rate 35 Fraction of Inspired Oxygen 52 04/17/24 20:00 04/17/24 21:01 04/17/24 21:30 Temperature Pulse Rate 109 H 105 H Respiratory Rate 19 Blood Pressure Pulse Oximetry 94 Oxygen Delivery High Flow Therapy with Na Oxygen Flow Rate 35 Fraction of Inspired Oxygen 50 04/17/24 22:00 04/17/24 23:00 04/18/24 00:00 Temperature 36.9 C Pulse Rate 106 H 108 H 108 H Respiratory Rate 22 H 22 H Blood Pressure 106/67 Pulse Oximetry 96 96 Oxygen Delivery High Flow Therapy with Na Oxygen Flow Rate 35 Fraction of Inspired Oxygen 50 04/18/24 00:00 04/18/24 02:00 04/18/24 04:00 Temperature 37.0 C Pulse Rate 105 H 97 99 Respiratory Rate 20 Blood Pressure 99/67 L Pulse Oximetry 95 Oxygen Delivery Oxygen Flow Rate Fraction of Inspired Oxygen 04/18/24 04:18 04/18/24 04:40 04/18/24 06:00 Temperature Pulse Rate 112 H 97 100 Respiratory Rate 20 Blood Pressure Pulse Oximetry 94 Oxygen Delivery High Flow Therapy with Na Oxygen Flow Rate 35 Fraction of Inspired Oxygen 53 04/18/24 07:51 04/18/24 08:03 04/18/24 08:35 Temperature 36.7 C Pulse Rate 123 H 117 H Respiratory Rate 20 24 H Blood Pressure 120/80 Pulse Oximetry 95 95 92 Oxygen Delivery High Flow Therapy with Na High Flow Therapy with Na Oxygen Flow Rate 35 35 Fraction of Inspired Oxygen 53 40 04/18/24 08:35 04/18/24 08:38 04/18/24 09:29 Temperature Pulse Rate 117 H 109 H Respiratory Rate Blood Pressure Pulse Oximetry 90 Oxygen Delivery High Flow Therapy with Na Oxygen Flow Rate 35 Fraction of Inspired Oxygen 40 04/18/24 09:30 04/18/24 10:00 04/18/24 12:25 Temperature Pulse Rate 109 H 100 119 H Respiratory Rate 24 H Blood Pressure Pulse Oximetry 93 Oxygen Delivery High Flow Therapy with Na Oxygen Flow Rate 35 Fraction of Inspired Oxygen 40 04/18/24 12:25 04/18/24 12:35 04/18/24 12:40 Temperature 36.7 C Pulse Rate 119 H 130 H Respiratory Rate 22 H Blood Pressure 123/74 Pulse Oximetry 92 Oxygen Delivery High Flow Therapy with Na Oxygen Flow Rate 35 Fraction of Inspired Oxygen 04/18/24 14:00 Temperature Pulse Rate 102 H Respiratory Rate Blood Pressure Pulse Oximetry Oxygen Delivery Oxygen Flow Rate Fraction of Inspired Oxygen Intake/Output Intake/Output: Intake & Output 04/15/24 04/16/24 04/17/24 04/18/24 23:59 23:59 23:59 23:59 Intake Total 2510 1470 1690 720 Output Total 700 3201 1700 952 Balance 1810 -1731 -10 -232 Meds/Results Medications: Active Medications Generic Name Dose Route Start Last Admin Trade Name Freq PRN Reason Stop Dose Admin Acetaminophen 1,000 mg 03/28/24 09:37 04/15/24 08:42 Acetaminophen 500 Mg Tablet PO 1,000 mg Q6H PRN Administration Mild Pain (1-3) or Fever Amiodarone HCl 200 mg 03/27/24 09:00 04/18/24 09:30 Amiodarone Hcl 200 Mg Tablet PO 200 mg DAILY MIGUEL Administration Ascorbic Acid 1,000 mg 03/27/24 09:00 04/18/24 09:29 Ascorbic Acid 500 Mg Tablet PO 1,000 mg QAM MIGUEL Administration Atorvastatin Calcium 40 mg 03/27/24 09:00 04/18/24 09:30 Atorvastatin 40 Mg Tablet PO 40 mg DAILY MIGUEL Administration Buspirone HCl 5 mg 03/27/24 09:00 04/18/24 09:30 Buspirone Hcl 5 Mg Tablet PO 5 mg BID MIGUEL Administration Calcium Carbonate 500 mg 03/27/24 09:00 04/18/24 09:29 Calcium Carbonate (Oscal) 500 Mg Tablet PO 500 mg QAM MIGUEL Administration Enoxaparin Sodium 100 mg 04/15/24 09:00 04/18/24 09:31 Enoxaparin 100 Mg/Ml Syringe SUB-Q 100 mg Q12H MIGUEL Administration Fluticasone/Umeclidinium/Vilanterol 1 puff 04/04/24 08:00 04/18/24 08:03 Fluticasone/Umeclidin/Vilanter 100-62.5-25 Mcg Ellipta INHALATION 1 puff DAILYRT MIGUEL Administration Furosemide 40 mg 04/10/24 17:00 04/18/24 09:31 Furosemide Inj 40 Mg/4 Ml Vial IV PUSH 40 mg BID MIGUEL Administration Levalbuterol HCl 0.63 mg 04/15/24 09:27 Levalbuterol Neb 1.25 Mg/3 Ml INHALATION Q6HRT PRN Shortness Of Breath Or Wheezing Levothyroxine Sodium 75 mcg 03/28/24 06:30 04/18/24 06:36 Levothyroxine Sodium 75 Mcg Tablet BY MOUTH 75 mcg DAILY@0630 MIGUEL Administration Lidocaine 1 patch 03/30/24 09:00 04/18/24 09:29 Lidocaine 5% Patch TRANSDERM 1 patch DAILY MIGUEL Administration Melatonin 5 mg 04/13/24 21:00 04/17/24 22:30 Melatonin 5 Mg Tablet PO 5 mg HS MIGUEL Administration Metoprolol Succinate 50 mg 03/27/24 09:00 04/18/24 09:29 Metoprolol Succinate Ext Rel 50 Mg Tabcr PO 50 mg QAM MIGUEL Administration Metoprolol Tartrate 12.5 mg 04/16/24 10:50 04/17/24 06:09 Metoprolol Tartrate 12.5 Mg Tablet PO 12.5 mg Q12HR PRN Administration Heart rate > 100 * Home Med * 300 mg 04/14/24 09:00 04/14/24 17:24 Dupilumab [Dupixent SUB-Q 05/14/24 08:59 300 mg Syringe] 300 Mg/2 Ml [id number] MIGUEL Administration Syringe Pantoprazole Sodium 40 mg 04/13/24 09:00 04/18/24 09:30 Pantoprazole 40 Mg Tablet PO 40 mg QAM MIGUEL Administration Prochlorperazine Edisylate 5 mg 04/15/24 00:39 04/15/24 00:52 Prochlorperazine Edisylate 10 Mg/2 Ml Vial IV PUSH 5 mg Q6H PRN Administration Nausea And Vomiting Fluticasone/Salmeterol 2 puff 04/11/24 20:00 04/18/24 08:02 Fluticasone/Salmeterol 45-21 Mcg Inhaler 1 Puff INHALATION 2 puff Q12HRT MIGUEL Administration Senna/Docusate Sodium 2 tab 04/13/24 12:43 Senna/Docusate Sodium Tablet PO BID PRN Constipation Sodium Chloride 2 gm 04/07/24 17:00 04/18/24 09:29 Sodium Chloride 1 Gm Tablet PO 2 gm BID MIGUEL Administration Radiology Results: ITS Impressions Chest CT 03/26/24 21:50 IMPRESSION: Redemonstration of a right-sided pneumothorax, approximately 15-20% in size with a right posterior medial fifth rib fracture. Head CT 03/26/24 23:09 Impression: No acute intracranial hemorrhage or suspicious mass effect. Cervical Spine CT 03/26/24 23:13 Impression: Straightening and slight reversal of the normal curvature of the cervical spine, likely muscular in origin. Significant degenerative disease, without acute fracture. Chest CTA 03/29/24 08:00 IMPRESSION: 1. Right chest tube in expected position with small right pleural effusion but no pneumothorax. 2. Mild emphysema with mild dependent atelectasis in both lungs. 3. Cardiomegaly with biatrial enlargement. 4. Enlargement of the central pulmonary arteries consistent with pulmonary arterial hypertension. 5. Recent-appearing nondisplaced fractures of the posterior right fifth and sixth ribs. Venous Doppler Study 04/12/24 14:56 IMPRESSION: 1. No deep venous thrombosis within the bilateral lower extremities. Chest X-Ray 04/16/24 12:14 IMPRESSION: 1. Airspace opacities at the lung bases, consistent with atelectasis versus pneumonia. 2. Stable small pleural effusions. 3. Cardiomegaly. Labs Labs: Laboratory Results - last 24 hr 04/18/24 04:20 PT 16.4 H INR 1.3
--- NOTE | 2024-04-18 21:25 | P.PNPL_ITS ---
Progress Note: A&P Assessment and Plan (1) Chronic respiratory failure: Qualifiers: Respiratory failure complication: hypoxia Qualified Code(s): J96.11 - Chronic respiratory failure with hypoxia Code(s): J96.10 - Chronic respiratory failure, unspecified whether with hypoxia or hypercapnia Status: Acute Assessment and Plan: This 88-year-old female patient with a history of mild COPD, chronically on maintenance bronchodilators, and chronic hypoxemia managed with supplemental oxygen, has untreated sleep apnea and recent atrial fibrillation for which she is receiving treatment, including anticoagulants. She presented with shortness of breath related to a pneumothorax. Despite the resolution of the pneumothorax, she continued to experience shortness of breath related to congestive heart failure. On physical examination, the patient presented with bilateral crackles, jugular venous distension (JVD), and lower extremity edema despite diuresis, indicating an overall positive fluid balance. The patient was managed with auto CPAP and supplemental oxygen at night while in the medical-surgical back due to persistent nocturnal hypoxemia on oxygen alone. Following a worsening of her respiratory status, she was transferred to the intensive care unit and switched to BiPAP at settings of 12/8, along with supplemental oxygen. Treatment for her atrial fibrillation included full-dose Lovenox and antibiotics. A chest X-ray review showed bilateral pleural effusions and some pulmonary congestion, but no new infiltrates to suggest a lower respiratory tract infection. After diuresis, her cardiorespiratory status improved, and she was transferred back to a regular room. Recapping the cardiorespiratory status, the patient has mild sleep apnea, confirmed by a 2009 sleep study that demonstrated successful titration with a requirement of 11 cm of water pressure. However, she has not been utilizing CPAP therapy. Pulmonary function testing approximately 6 years ago indicated mild obstructive airway disease, though these test results are not available for review. Over the years, she has been treated for atrial fibrillation with unsuccessful defibrillation and is currently on daily amiodarone. Echocardiograms have shown severe biatrial enlargement with elevated pulmonary artery systolic pressure at 42 mmHg and an ejection fraction (EF) ranging from 60 to 65%. Severe left atrial enlargement is likely due to left ventricular diastolic dysfunction, common in this age group, leading to pulmonary hypertension exacerbated by untreated sleep-disordered breathing and further complicated by right ventricular dysfunction. Her presentation with bilateral pleural effusions and severe lower extremity edema is clearly related to CHF, with no evidence of lower respiratory tract infection. The plan includes correcting nocturnal hypoxemia through ventilatory support at home. The patient appears to be tolerating BiPAP well during this hospitalization. ApneaLink study on BiPAP support and FiO2 40% showed no evidence of oxyhemoglobin desaturation. During today's physical exam, the patient still presents with a few crackles at the lung bases and decreased breath sounds due to ongoing pleural effusions. There is no wheezing noted, and her lower extremity edema has significantly improved. The patient is currently in isolation following a positive COVID PCR test. Her respiratory status is stable, and she is not exhibiting symptoms such as cough or fever that would suggest COVID-19 pneumonia. In fact, her gas exchange has improved since her transfer from the ICU to the medical back. It is probable that the onset of COVID-19 occurred several days ago, aligning with a decline in her cardiorespiratory status, which required enhanced support and monitoring in the ICU. The patient is likely to benefit from ventilatory support at home. For someone with sleep apnea and complex cardiorespiratory conditions, such as biventricular congestive heart failure, atrial fibrillation, elevated pulmonary artery systolic pressure, bilateral pleural effusions, and pulmonary edema, home ventilation offers significant advantages over standard BiPAP support. Home ventilators provide more comprehensive respiratory assistance by delivering a controlled volume of air, ensuring adequate ventilation. This is particularly beneficial for managing hypoventilation and respiratory failure associated with sleep apnea. Home ventilation can also enhance oxygenation and carbon dioxide elimination more effectively than BiPAP alone, addressing issues like hypercapnia and hypoxemia. For patients with multiple comorbidities like this one, home ventilation can better manage the complex interactions between respiratory and cardiovascular systems, potentially reducing hospitalizations. Additionally, it can lead to improved sleep quality, reduced daytime symptoms, and an overall enhancement in quality of life. The patient appears to be tolerating BiPAP support well, and the recent ApneaLink monitor indicates that nocturnal hypoxemia has been corrected. Considering the significant cardiorespiratory issues, including congestive heart failure, atrial fibrillation, and bilateral pleural effusions, it is imperative to initiate home ventilator support. Without this treatment, the patient is at high risk for adverse clinical outcomes, such as rehospitalization due to cardiorespiratory failure or even . Plan: With cardiac dysfunction and hypercapnia, AVAPS may provide more relief and she may tolerate it better. Stop BiPAP, change to AVAPS with sleep and when short of breath in the day. she can use nasal cannula in the day and wean O2 as tolerated to keep sat 90- 94%. No need to initiate treatment for COVID at this point. (2) COPD (chronic obstructive pulmonary disease): Qualifiers: COPD type: unspecified COPD Qualified Code(s): J44.9 - Chronic obstructive pulmonary disease, unspecified Code(s): J44.9 - Chronic obstructive pulmonary disease, unspecified Status: Acute Assessment and Plan: Long standing, now on Wixela and Trelegy. Stop Wixela. (3) Hypoxemia: Code(s): R09.02 - Hypoxemia Status: Acute Assessment and Plan: on High Flow 50 L min and 72%. Sat 93%. O2 needs higher since diagnosis of COVID. (4) Acute on chronic hypoxic respiratory failure: Code(s): J96.21 - Acute and chronic respiratory failure with hypoxia Status: Acute Assessment and Plan: Acute worsening this admission with fall, 2 right rib fractures, CHF, now COVID. (5) MARC (obstructive sleep apnea): Code(s): G47.33 - Obstructive sleep apnea (adult) (pediatric) Status: Acute Assessment and Plan: PSG 09/27/09 - mild MARC AHI 7.2 CPAP titration 10/10/09 - inadequate titration, recommend repeat titration CPAP Titration 10/21/09 - recommend CPAP [id number]. She now has mild hypercapnia, CHF with biatrial enlargement, enlarged RV, diastolic dysfunction, pulmonary hypertension. She qualifies for a non-invasive positive pressure ventilator, may be better to do this than to consider sleep study. Start AVAPS. (6) CHF (congestive heart failure): Qualifiers: Heart failure type: unspecified Heart failure chronicity: unspecified Qualified Code(s): I50.9 - Heart failure, unspecified Code(s): I50.9 - Heart failure, unspecified Status: Acute Assessment and Plan: managed by [facility] cardiology group as an out patient; had atrial fib requiring admission Jan 21 (7) Afib: Qualifiers: Atrial fibrillation type: unspecified Qualified Code(s): I48.91 - Unspecified atrial fibrillation Code(s): I48.91 - Unspecified atrial fibrillation Status: Acute Assessment and Plan: rate is about 100 (8) COVID-19: Code(s): U07.1 - COVID-19 Status: Acute Assessment and Plan: She had a (+) SARS-CoV-2 on 04/16, a few days after she had worsening, but does n ot meet criteria to require treatment. She never had COVID that she knows of; was vaccinated against COVID at start of pandemic. She does not require specific treatment with anti-virals. Plan plan: 1) She is on overlapping inhalers; Trelegy, a triple inhaler with LABA/IC S/LAMA and Wixela-dual inhaler with LABA/ICS. I will stop Wixela. She is getting double dose of ICS and LABA. Doubling the LABA can worsen tachycardia. 2) PAP; she says that she is concerned that she will have to be discharged from the hospital on some form of PAP, either BiPAP or something else. She was tested for MARC a few years ago, 2009, had mild MARC. The BiPAP 01/25 does not feel comfortable. She does not fall asleep easily, has some anxiety having to wear it. She has mild hypercapnia, pCO2 is around 48, not high. She has atrial fib, enlarged chambers except for LV, pulmonary hypertension, TR. She needs AVAPS; generic settings can be started with Max inspiratory pressure 25 cm, minimum inspiratory pressure 14 cm, EPAP 8 cm, rate 14, rise 3, I-time 0.9 seconds. FiO2 50%. this may need to be tweaked. She may need adjustments to make it more comfortable. Subjective Date/time seen: 04/18/24 21:25 Interval history: 04/18/24 pulmonary follow up : 88 year old female with COVID 04/16, mild hypercapnia, on Vapotherm O2 @ 35 L/minute and 40%, saturation 93%. last CXR 04/16/24= Airspace opacities at the lung bases, consistent with atelectasis versus pneumonia. 2. Stable small pleural effusions. 3. Cardiomegaly. 04/17/24: She has no new respiratory complaints. She refused BiPAP support last night, willing to resume it today. She is still on high-flow nasal cannula. No cough fever chills. Tested positive for COVID, currently in isolation. DATA * 01/22/24 echo:Left ventricular chamber dimension is normal. 2. Left ventricular systolic function is normal, estimated at 60-65%. 3. There is mildly increased left ventricular wall thickness. 4. The left ventricular diastolic function is indeterminate. 5. Right ventricular chamber dimension is mildly enlarged. 6. Left atrial chamber dimension is severely enlarged. 7. Right atrial chamber dimension is severely enlarged. 8. There is mild mitral valve regurgitation. 9. There is mild to moderate tricuspid valve regurgitation. 10. Mild pulmonary hypertension, estimated pulmonary arterial systolic pressure is 42 mmHg. 11. There is mild pulmonic regurgitation. 12. The aortic root size at the sinus of Valsalva is mildly dilated. 13. Dilated inferior vena cava with <50% collapse upon inspiration consistent with elevated right atrial pressure, 15 mmHg. Review of Systems Review of Systems: All systems reviewed & are unremarkable except as noted in HPI and below Exam Narrative: GEN: Alert, oriented, not in distress. O2 delivery High Flow 35 L/min and 39%, saturation is 93% HEENT: pupils are equal, EOMI, symmetrical face NECK: Trachea is midline CHEST: Equal air entry, symmetric excursion, few crackles in bases. She has discomfort on right lateral chest from a fall into cabinets with rib fractures right side 5th and 6th ribs. She had a chest tube on admission. CV: Irregular S1S2, atrial fib at 102 bpm, no m/g/r Extremities : no clubbing, cyanosis, edema PSYCH: normal thought and speech, she is able to sit up and lean forward, cooperate with exam Objective Data Vital Signs Vital Signs: Vital Signs - 24 hr 04/17/24 21:30 04/17/24 22:00 04/17/24 23:00 Temperature Pulse Rate 106 H 108 H Respiratory Rate 22 H Blood Pressure Pulse Oximetry 94 96 Oxygen Delivery High Flow Therapy with Na High Flow Therapy with Na Oxygen Flow Rate 35 35 Fraction of Inspired Oxygen 50 50 04/18/24 00:00 04/18/24 00:00 04/18/24 02:00 Temperature 36.9 C Pulse Rate 108 H 105 H 97 Respiratory Rate 22 H Blood Pressure 106/67 Pulse Oximetry 96 Oxygen Delivery Oxygen Flow Rate Fraction of Inspired Oxygen 04/18/24 04:00 04/18/24 04:18 04/18/24 04:40 Temperature 37.0 C Pulse Rate 99 112 H 97 Respiratory Rate 20 20 Blood Pressure 99/67 L Pulse Oximetry 95 94 Oxygen Delivery High Flow Therapy with Na Oxygen Flow Rate 35 Fraction of Inspired Oxygen 53 04/18/24 06:00 04/18/24 07:51 04/18/24 08:03 Temperature 36.7 C Pulse Rate 100 123 H Respiratory Rate 20 Blood Pressure 120/80 Pulse Oximetry 95 95 Oxygen Delivery High Flow Therapy with Na Oxygen Flow Rate 35 Fraction of Inspired Oxygen 53 04/18/24 08:35 04/18/24 08:35 04/18/24 08:38 Temperature Pulse Rate 117 H 117 H Respiratory Rate 24 H Blood Pressure Pulse Oximetry 92 90 Oxygen Delivery High Flow Therapy with Na High Flow Therapy with Na Oxygen Flow Rate 35 35 Fraction of Inspired Oxygen 40 40 04/18/24 09:29 04/18/24 09:30 04/18/24 10:00 Temperature Pulse Rate 109 H 109 H 100 Respiratory Rate Blood Pressure Pulse Oximetry Oxygen Delivery Oxygen Flow Rate Fraction of Inspired Oxygen 04/18/24 12:25 04/18/24 12:25 04/18/24 12:35 Temperature 36.7 C Pulse Rate 119 H 119 H 130 H Respiratory Rate 24 H 22 H Blood Pressure 123/74 Pulse Oximetry 93 92 Oxygen Delivery High Flow Therapy with Na Oxygen Flow Rate 35 Fraction of Inspired Oxygen 40 04/18/24 12:40 04/18/24 14:00 04/18/24 16:00 Temperature Pulse Rate 102 H 104 H Respiratory Rate 24 H Blood Pressure Pulse Oximetry 92 Oxygen Delivery High Flow Therapy with Na High Flow Therapy with Na Oxygen Flow Rate 35 35 Fraction of Inspired Oxygen 39 04/18/24 16:00 04/18/24 16:12 04/18/24 18:00 Temperature 36.8 C Pulse Rate 104 H 102 H 105 H Respiratory Rate 21 H Blood Pressure 113/73 Pulse Oximetry 95 Oxygen Delivery Oxygen Flow Rate Fraction of Inspired Oxygen 04/18/24 20:00 04/18/24 20:37 Temperature 36.9 C Pulse Rate 124 H Respiratory Rate 20 Blood Pressure 110/68 Pulse Oximetry 95 93 Oxygen Delivery High Flow Therapy with Na Oxygen Flow Rate 35 Fraction of Inspired Oxygen 39 Intake/Output Intake/Output: Intake & Output 04/15/24 04/16/24 04/17/24 04/18/24 23:59 23:59 23:59 23:59 Intake Total 2510 1470 1690 1460 Output Total 700 3201 1700 1252 Balance 8810 -7013 -10 208 Meds/Results Medications: Active Medications Generic Name Dose Route Start Last Admin Trade Name Ignacio PRN Reason Stop Dose Admin Acetaminophen 1,000 mg 03/28/24 09:37 04/15/24 08:42 Acetaminophen 500 Mg Tablet PO 1,000 mg Q6H PRN Administration Mild Pain (1-3) or Fever Amiodarone HCl 200 mg 03/27/24 09:00 04/18/24 09:30 Amiodarone Hcl 200 Mg Tablet PO 200 mg DAILY MIGUEL Administration Ascorbic Acid 1,000 mg 03/27/24 09:00 04/18/24 09:29 Ascorbic Acid 500 Mg Tablet PO 1,000 mg QAM MIGUEL Administration Atorvastatin Calcium 40 mg 03/27/24 09:00 04/18/24 09:30 Atorvastatin 40 Mg Tablet PO 40 mg DAILY MIGUEL Administration Buspirone HCl 5 mg 03/27/24 09:00 04/18/24 16:50 Buspirone Hcl 5 Mg Tablet PO 5 mg BID MIGUEL Administration Calcium Carbonate 500 mg 03/27/24 09:00 04/18/24 09:29 Calcium Carbonate (Oscal) 500 Mg Tablet PO 500 mg QAM MIGUEL Administration Enoxaparin Sodium 100 mg 04/15/24 09:00 04/18/24 09:31 Enoxaparin 100 Mg/Ml Syringe SUB-Q 100 mg Q12H MIGUEL Administration Fluticasone/Umeclidinium/Vilanterol 1 puff 04/04/24 08:00 04/18/24 08:03 Fluticasone/Umeclidin/Vilanter 100-62.5-25 Mcg Ellipta INHALATION 1 puff DAILYRT MIGUEL Administration Furosemide 40 mg 04/10/24 17:00 04/18/24 16:50 Furosemide Inj 40 Mg/4 Ml Vial IV PUSH 40 mg BID MIGUEL Administration Levalbuterol HCl 0.63 mg 04/15/24 09:27 Levalbuterol Neb 1.25 Mg/3 Ml INHALATION Q6HRT PRN Shortness Of Breath Or Wheezing Levothyroxine Sodium 75 mcg 03/28/24 06:30 04/18/24 06:36 Levothyroxine Sodium 75 Mcg Tablet BY MOUTH 75 mcg DAILY@0630 MIGUEL Administration Lidocaine 1 patch 03/30/24 09:00 04/18/24 09:29 Lidocaine 5% Patch TRANSDERM 1 patch DAILY MIGUEL Administration Melatonin 5 mg 04/13/24 21:00 04/17/24 22:30 Melatonin 5 Mg Tablet PO 5 mg HS MIGUEL Administration Metoprolol Succinate 50 mg 03/27/24 09:00 04/18/24 09:29 Metoprolol Succinate Ext Rel 50 Mg Tabcr PO 50 mg QAM MIGUEL Administration Metoprolol Tartrate 12.5 mg 04/16/24 10:50 04/17/24 06:09 Metoprolol Tartrate 12.5 Mg Tablet PO 12.5 mg Q12HR PRN Administration Heart rate > 100 * Home Med * 300 mg 04/14/24 09:00 04/14/24 17:24 Dupilumab [Dupixent SUB-Q 05/14/24 08:59 300 mg Syringe] 300 Mg/2 Ml [id number] MIGUEL Administration Syringe Pantoprazole Sodium 40 mg 04/13/24 09:00 04/18/24 09:30 Pantoprazole 40 Mg Tablet PO 40 mg QAM MIGUEL Administration Prochlorperazine Edisylate 5 mg 04/15/24 00:39 04/15/24 00:52 Prochlorperazine Edisylate 10 Mg/2 Ml Vial IV PUSH 5 mg Q6H PRN Administration Nausea And Vomiting Fluticasone/Salmeterol 2 puff 04/11/24 20:00 04/18/24 20:36 Fluticasone/Salmeterol 45-21 Mcg Inhaler 1 Puff INHALATION 2 puff Q12HRT MIGUEL Administration Senna/Docusate Sodium 2 tab 04/13/24 12:43 Senna/Docusate Sodium Tablet PO BID PRN Constipation Sodium Chloride 2 gm 04/07/24 17:00 04/18/24 16:50 Sodium Chloride 1 Gm Tablet PO 2 gm BID MIGUEL Administration Radiology Results: ITS Impressions Chest CT 03/26/24 21:50 IMPRESSION: Redemonstration of a right-sided pneumothorax, approximately 15-20% in size with a right posterior medial fifth rib fracture. Head CT 03/26/24 23:09 Impression: No acute intracranial hemorrhage or suspicious mass effect. Cervical Spine CT 03/26/24 23:13 Impression: Straightening and slight reversal of the normal curvature of the cervical spine, likely muscular in origin. Significant degenerative disease, without acute fracture. Chest CTA 03/29/24 08:00 IMPRESSION: 1. Right chest tube in expected position with small right pleural effusion but no pneumothorax. 2. Mild emphysema with mild dependent atelectasis in both lungs. 3. Cardiomegaly with biatrial enlargement. 4. Enlargement of the central pulmonary arteries consistent with pulmonary arterial hypertension. 5. Recent-appearing nondisplaced fractures of the posterior right fifth and sixth ribs. Venous Doppler Study 04/12/24 14:56 IMPRESSION: 1. No deep venous thrombosis within the bilateral lower extremities. Chest X-Ray 04/16/24 12:14 IMPRESSION: 1. Airspace opacities at the lung bases, consistent with atelectasis versus pneumonia. 2. Stable small pleural effusions. 3. Cardiomegaly. Labs Labs: Laboratory Results - last 24 hr 04/18/24 04:20 PT 16.4 H INR 1.3
[2024-04-18] MEDS: MELATONIN 5 MG TABLET PO (22:15)
[2024-04-18] MEDS: ACETAMINOPHEN 500 MG TABLET 1000 MG PO (23:48)
[2024-04-19] VITALS (27 sets, daily range): BP systolic 100–124; BP diastolic 60–77; PULSE 80–113; RESP 17–26; TEMP 36.4–37.1; O2SAT 90–98
[2024-04-19 04:54] LABS: Hematocrit 31.8 % (37.0-47.0); Hemoglobin 10.3 g/dL (12.0-15.0); Mean Corpuscular HGB Conc 32.4 g/dl (32-36); Mean Corpuscular Hemoglobin 29.9 pg (26-34); Mean Corpuscular Volume 92.2 fl (80-100); Mean Platelet Volume 10.8 fl (7.4-10.4); Platelet Count Result 212 k/mm3 (150-375); Red Blood Count 3.45 M/mm3 (4.2-5.4); Red Cell Distribution Width 15.1 % (11.5-14.5); White Blood Count 3.7 K/mm3 (4.5-10.0)
[2024-04-19 05:11] LABS: Anion Gap 7 mmol/L (4-12); Blood Urea Nitrogen 14 mg/dL (7-17); Calcium 7.6 mg/dL (8.4-10.2); Carbon Dioxide 36 mmol/L (22-30); Chloride 92 mmol/L (98-107); Estimated CRCL calculation 64 ml/min; Estimated Glomerular Filt Rate > 60; Glucose 88 mg/dL (65-110); Magnesium 1.5 mg/dL (1.6-2.3); Sodium 135 mmol/L (137-145)
[2024-04-19 05:27] LABS: Potassium 2.8 mmol/L (3.4-5.0)
[2024-04-19] MEDS: LEVOTHYROXINE SODIUM 75 MCG TABLET BY MOUTH (06:00)
[2024-04-19] MEDS: POTASSIUM CHLORIDE 20 MEQ ER TABLET 40 MEQ PO (06:01)
[2024-04-19] MEDS: MAGNESIUM SULF 1 GM/D5W 100 ML 1 GM/100 ML BAG IVPB (06:02)
[2024-04-19] MEDS: POTASSIUM CHLORIDE INJ 40 MEQ in SODIUM CHLORIDE 0.9% IV 500 ML 130 MEQ IVPB (07:45)
[2024-04-19] MEDS: FLUTICASONE/UMECLIDIN/VILANTER 100-62.5-25 MCG ELLIPTA 1 PUFF INHALATION (08:46)
[2024-04-19] MEDS: CALCIUM CARBONATE (OSCAL) 500 MG TABLET PO (09:07)
[2024-04-19] MEDS: FUROSEMIDE INJ 40 MG/4 ML VIAL IV PUSH ×2 (09:07→17:54)
[2024-04-19] MEDS: AMIODARONE HCL 200 MG TABLET PO (09:08)
[2024-04-19] MEDS: ASCORBIC ACID 500 MG TABLET 1000 MG PO (09:08)
[2024-04-19] MEDS: ENOXAPARIN 100 MG/ML SYRINGE SUB-Q ×2 (09:09→21:05)
[2024-04-19] MEDS: busPIRone HCL 5 MG TABLET PO ×2 (09:09→17:55)
[2024-04-19] MEDS: METOPROLOL SUCCINATE EXT REL 50 MG TABCR PO (09:10)
[2024-04-19] MEDS: SODIUM CHLORIDE 1 GM TABLET 2 GM PO ×2 (09:10→17:55)
[2024-04-19] MEDS: LIDOCAINE 5% PATCH 1 PATCH TRANSDERM (09:10)
[2024-04-19] MEDS: PANTOPRAZOLE 40 MG TABLET PO (09:10)
[2024-04-19] MEDS: ATORVASTATIN 40 MG TABLET PO (09:11)
--- NOTE | 2024-04-19 14:06 | PM.IMPN ---
Progress Note: A&P Assessment and Plan (1) Pneumothorax: Qualifiers: Pneumothorax type: spontaneous, primary Qualified Code(s): J93.11 - Primary spontaneous pneumothorax Code(s): J93.9 - Pneumothorax, unspecified Status: Acute (2) MARC (obstructive sleep apnea): Code(s): G47.33 - Obstructive sleep apnea (adult) (pediatric) Status: Acute (3) Chronic respiratory failure: Qualifiers: Respiratory failure complication: hypoxia Qualified Code(s): J96.11 - Chronic respiratory failure with hypoxia Code(s): J96.10 - Chronic respiratory failure, unspecified whether with hypoxia or hypercapnia Status: Acute (4) COPD (chronic obstructive pulmonary disease): Qualifiers: COPD type: unspecified COPD Qualified Code(s): J44.9 - Chronic obstructive pulmonary disease, unspecified Code(s): J44.9 - Chronic obstructive pulmonary disease, unspecified Status: Acute (5) Closed rib fracture: Code(s): S22.39XA - Fracture of one rib, unspecified side, initial encounter for closed fracture Status: Acute (6) GERD (gastroesophageal reflux disease): Qualifiers: Esophagitis presence: without esophagitis Qualified Code(s): K21.9 - Gastro-esophageal reflux disease without esophagitis Code(s): K21.9 - Gastro-esophageal reflux disease without esophagitis Status: Acute (7) Hypothyroidism: Qualifiers: Hypothyroidism type: acquired Qualified Code(s): E03.9 - Hypothyroidism, unspecified Code(s): E03.9 - Hypothyroidism, unspecified Status: Acute (8) Hyperlipidemia: Qualifiers: Hyperlipidemia type: elevated lipoprotein(a) Qualified Code(s): E78.41 - Elevated Lipoprotein(a) Code(s): E78.5 - Hyperlipidemia, unspecified Status: Acute (9) Afib: Qualifiers: Atrial fibrillation type: unspecified Qualified Code(s): I48.91 - Unspecified atrial fibrillation Code(s): I48.91 - Unspecified atrial fibrillation Status: Acute (10) CHF (congestive heart failure): Qualifiers: Heart failure type: unspecified Heart failure chronicity: unspecified Qualified Code(s): I50.9 - Heart failure, unspecified Code(s): I50.9 - Heart failure, unspecified Status: Acute (11) Hypertension: Qualifiers: Hypertension type: primary hypertension Qualified Code(s): I10 - Essential (primary) hypertension Code(s): I10 - Essential (primary) hypertension Status: Acute Plan This is an 88-year-old female presented to the ER after ground level fall. She was getting something out of a cabinet when she lost her balance and fell backwards hitting a chair. She had pain in her right back. She then developed shortness of breath. She came to the ER to be evaluated. She denies head trauma loss of consciousness. She has been ambulatory since the incident. Patient is supposed to be on anticoagulation for atrial fibrillation but ran out of her Eliquis 4 days ago. She has been prescribed Coumadin by her wood box maker but has not started taking Acute pneumothorax From Fall s/p needle decompression CT chest performed which showed right-sided pneumothorax with subcutaneous air along the right anterolateral chest wall and posterior medial chest wall. s/p chest tube removed on 03/29/24 continue monitor COPD acute on chronic chronic hypoxic respiratory failure on home oxygen with acute exacerbation 03/29/2024. IV Lasix received overnight. CTA Negative for PE or pneumonia. on 5 liters oxygen continue bronchodilators monitor Pulmonology on board Diastolic heart failure with exacerbation. Echocardiogram showed EF of 60-65%, mild pulmonary hypertension, diastolic dysfunction is indeterminate CXR today showed bilateral pleural effusion and pulm edema Start Lasix 40mg bid IV monitor Acute on chronic respiratory failure Patient need 1-2 L oxygen and home mostly from CHF exacerbation now with CXR showed pleural effusion and pulm edema Continue lasix and bronchodilators as above Suspecting MARC, Apnea link done last night continue Apnea link tonight per Pulmonology Atrial fibrillation on amiodarone and metoprolol And warfarin 3 mg daily INR in therapeutic range Hyponatremia, resolving Likely secondary to poor oral intake and IV Lasix Provide sodium chloride 1 g b.i.d. p.o. 04/02 Increase sodium chloride to 1 g t.i.d. p.o. 04/05 Na 133 Hypothyroidism On Synthroid 75 mcg daily p.o. Hypertension Amlodipine 5 mg daily p.o. Blood pressure is controlled Hyperlipidemia On Lipitor 40 mg daily p.o. GERD Varicose vein Osteoarthritis 88-year-old female presented with a shortness of breath is found to have acute on chronic respiratory failure secondary to multiple factors with exacerbation of COPD, congestive heart failure obesity with hypoventilation, patient is seen by service order dispatcher chief patient been treated with Solu-Medrol, diuresed and service order dispatcher chief as started the patient on non invensive ventilator and titrating, patient with persisting upper respiratory symptoms for over 20 days to further evaluate COVID test was repeated and patient s positive, patient is found to have COVID, her service order dispatcher chief does not recommend any treatment, patient clinical symptoms are persisting and remains on high oxygen requirement, patient is sitting in the bed, stats feels better not as short of breath as yesterday, patient is seen by service order dispatcher chief and further recommendation to follow. DVT prophylaxis currently on warfarin INR. Today patient is lying in the bed stated feeling better and compared to yesterday not a short of breath, patient requesting more aggressive physical therapy, will discuss with the PT department for further recommendation, patient was seen by her service order dispatcher chief recommended to stop BiPAP and started AVAPS with sleep and as needed, and nasal cannula during day, service order dispatcher chief does not recommend starting any medication for COVID, patient's son is present in the room. Code status full code Awaiting improvement in resp failure Subjective Date/time seen: 04/19/24 14:06 Interval history: This is to certify patient remains in the hospital for more than 20 days for exacerbation of COPD and CHF with acute on chronic respiratory failure. 88-year-old female presented with a shortness of breath is found to have acute on chronic respiratory failure secondary to multiple factors with exacerbation of COPD, congestive heart failure obesity with hypoventilation, patient is seen by service order dispatcher chief patient been treated with Solu-Medrol, diuresed and service order dispatcher chief as started the patient on non invensive ventilator and titrating, patient with persisting upper respiratory symptoms for over 20 days to further evaluate COVID test was repeated and patient s positive, patient is found to have COVID, her service order dispatcher chief does not recommend any treatment, patient clinical symptoms are persisting and remains on high oxygen requirement, Today patient is lying in the bed stated feeling better and compared to yesterday not a short of breath, patient requesting more aggressive physical therapy, will discuss with the PT department for further recommendation, patient was seen by her service order dispatcher chief recommended to stop BiPAP and started AVAPS with sleep and as needed, and nasal cannula during day, service order dispatcher chief does not recommend starting any medication for COVID, patient's son is present in the room. Review of Systems Review of Systems: - CONSTITUTIONAL: Denies weight loss, fever and chills. - HEENT: Denies changes in vision and hearing - RESPIRATORY: Reports SOB and denies cough. - CV: Denies palpitations and reports CP. - GI: Denies abdominal pain, nausea, vomiting and diarrhea. - : Denies dysuria and urinary frequency. - MSK: Denies myalgia and joint pain. - SKIN: Denies rash and pruritus. - NEUROLOGICAL: Denies headache and syncope. - PSYCHIATRIC: Denies recent changes in mood. Denies anxiety and depression. All systems reviewed & are unremarkable except as noted in HPI and below Exam Narrative: Elderly frail Patient is comfortable, NAD HEENT: eyes are clear and none icteric LUNGS: Bilateral poor air entry with rhonchi and wheezing. HEART: RR S1S2 ABD: BS+, Soft and nontender Lower extremities: no edema SKIN: nonjaundiced Neuro: grossly intact. Objective Data Vital Signs Vital Signs: Vital Signs - 24 hr 04/18/24 16:00 04/18/24 16:00 04/18/24 16:12 Temperature 36.8 C Pulse Rate 104 H 104 H 102 H Respiratory Rate 24 H 21 H Blood Pressure 113/73 Pulse Oximetry 92 95 Oxygen Delivery High Flow Therapy with Na Oxygen Flow Rate 35 Fraction of Inspired Oxygen 39 04/18/24 18:00 04/18/24 20:00 04/18/24 20:00 Temperature 36.9 C Pulse Rate 105 H 124 H 105 H Respiratory Rate 20 20 Blood Pressure 110/68 Pulse Oximetry 95 95 Oxygen Delivery High Flow Therapy with Na Oxygen Flow Rate 35 Fraction of Inspired Oxygen 39 04/18/24 20:00 04/18/24 20:37 04/18/24 22:00 Temperature Pulse Rate 104 H 104 H Respiratory Rate Blood Pressure Pulse Oximetry 93 Oxygen Delivery High Flow Therapy with Na Oxygen Flow Rate 35 Fraction of Inspired Oxygen 39 04/18/24 23:22 04/19/24 00:00 04/19/24 00:00 Temperature 36.9 C Pulse Rate 95 95 106 H Respiratory Rate 20 20 Blood Pressure 115/76 Pulse Oximetry 93 93 Oxygen Delivery High Flow Therapy with Na Oxygen Flow Rate 35 Fraction of Inspired Oxygen 39 04/19/24 01:00 04/19/24 02:00 04/19/24 04:00 Temperature Pulse Rate 86 92 90 Respiratory Rate 20 Blood Pressure Pulse Oximetry 96 Oxygen Delivery BiPAP Oxygen Flow Rate Fraction of Inspired Oxygen 04/19/24 04:06 04/19/24 05:30 04/19/24 06:00 Temperature 37.1 C Pulse Rate 83 83 86 Respiratory Rate 26 H 26 H Blood Pressure 124/73 Pulse Oximetry 98 98 Oxygen Delivery BiPAP Oxygen Flow Rate Fraction of Inspired Oxygen 50 04/19/24 08:00 04/19/24 08:49 04/19/24 09:08 Temperature 36.7 C Pulse Rate 91 104 H Respiratory Rate 20 Blood Pressure 117/66 Pulse Oximetry 96 95 Oxygen Delivery High Flow Therapy with Na Oxygen Flow Rate 35 Fraction of Inspired Oxygen 39 04/19/24 09:10 04/19/24 11:55 Temperature 36.4 C L Pulse Rate 104 H 95 Respiratory Rate 20 Blood Pressure 112/64 Pulse Oximetry 96 Oxygen Delivery Oxygen Flow Rate Fraction of Inspired Oxygen Intake/Output Intake/Output: Intake & Output 04/16/24 04/17/24 04/18/24 04/19/24 23:59 23:59 23:59 23:59 Intake Total 1470 1690 1460 1590 Output Total 3201 1700 1252 1650 Balance -1731 -10 208 -60 Meds/Results Medications: Active Medications Generic Name Dose Route Start Last Admin Trade Name Freq PRN Reason Stop Dose Admin Acetaminophen 1,000 mg 03/28/24 09:37 04/18/24 23:48 Acetaminophen 500 Mg Tablet PO 1,000 mg Q6H PRN Administration Mild Pain (1-3) or Fever Amiodarone HCl 200 mg 03/27/24 09:00 04/19/24 09:08 Amiodarone Hcl 200 Mg Tablet PO 200 mg DAILY MIGUEL Administration Ascorbic Acid 1,000 mg 03/27/24 09:00 04/19/24 09:08 Ascorbic Acid 500 Mg Tablet PO 1,000 mg QAM MIGUEL Administration Atorvastatin Calcium 40 mg 03/27/24 09:00 04/19/24 09:11 Atorvastatin 40 Mg Tablet PO 40 mg DAILY MIGUEL Administration Buspirone HCl 5 mg 03/27/24 09:00 04/19/24 09:09 Buspirone Hcl 5 Mg Tablet PO 5 mg BID MIGUEL Administration Calcium Carbonate 500 mg 03/27/24 09:00 04/19/24 09:07 Calcium Carbonate (Oscal) 500 Mg Tablet PO 500 mg QAM MIGUEL Administration Enoxaparin Sodium 100 mg 04/15/24 09:00 04/19/24 09:09 Enoxaparin 100 Mg/Ml Syringe SUB-Q 100 mg Q12H MIGUEL Administration Fluticasone/Umeclidinium/Vilanterol 1 puff 04/04/24 08:00 04/19/24 08:46 Fluticasone/Umeclidin/Vilanter 100-62.5-25 Mcg Ellipta INHALATION 1 puff DAILYRT MIGUEL Administration Furosemide 40 mg 04/10/24 17:00 04/19/24 09:07 Furosemide Inj 40 Mg/4 Ml Vial IV PUSH 40 mg BID MIGUEL Administration Levalbuterol HCl 0.63 mg 04/15/24 09:27 Levalbuterol Neb 1.25 Mg/3 Ml INHALATION Q6HRT PRN Shortness Of Breath Or Wheezing Levothyroxine Sodium 75 mcg 03/28/24 06:30 04/19/24 06:00 Levothyroxine Sodium 75 Mcg Tablet BY MOUTH 75 mcg DAILY@0630 MIGUEL Administration Lidocaine 1 patch 03/30/24 09:00 04/19/24 09:10 Lidocaine 5% Patch TRANSDERM 1 patch DAILY MIGUEL Administration Melatonin 5 mg 04/13/24 21:00 04/18/24 22:15 Melatonin 5 Mg Tablet PO 5 mg HS MIGUEL Administration Metoprolol Succinate 50 mg 03/27/24 09:00 04/19/24 09:10 Metoprolol Succinate Ext Rel 50 Mg Tabcr PO 50 mg QAM MIGUEL Administration Metoprolol Tartrate 12.5 mg 04/16/24 10:50 04/17/24 06:09 Metoprolol Tartrate 12.5 Mg Tablet PO 12.5 mg Q12HR PRN Administration Heart rate > 100 * Home Med * 300 mg 04/14/24 09:00 04/14/24 17:24 Dupilumab [Dupixent SUB-Q 05/14/24 08:59 300 mg Syringe] 300 Mg/2 Ml [id number] MIGUEL Administration Syringe Pantoprazole Sodium 40 mg 04/13/24 09:00 04/19/24 09:10 Pantoprazole 40 Mg Tablet PO 40 mg QAM MIGUEL Administration Prochlorperazine Edisylate 5 mg 04/15/24 00:39 04/15/24 00:52 Prochlorperazine Edisylate 10 Mg/2 Ml Vial IV PUSH 5 mg Q6H PRN Administration Nausea And Vomiting Senna/Docusate Sodium 2 tab 04/13/24 12:43 Senna/Docusate Sodium Tablet PO BID PRN Constipation Sodium Chloride 2 gm 04/07/24 17:00 04/19/24 09:10 Sodium Chloride 1 Gm Tablet PO 2 gm BID MIGUEL Administration Radiology Results: ITS Impressions Chest CT 03/26/24 21:50 IMPRESSION: Redemonstration of a right-sided pneumothorax, approximately 15-20% in size with a right posterior medial fifth rib fracture. Head CT 03/26/24 23:09 Impression: No acute intracranial hemorrhage or suspicious mass effect. Cervical Spine CT 03/26/24 23:13 Impression: Straightening and slight reversal of the normal curvature of the cervical spine, likely muscular in origin. Significant degenerative disease, without acute fracture. Chest CTA 03/29/24 08:00 IMPRESSION: 1. Right chest tube in expected position with small right pleural effusion but no pneumothorax. 2. Mild emphysema with mild dependent atelectasis in both lungs. 3. Cardiomegaly with biatrial enlargement. 4. Enlargement of the central pulmonary arteries consistent with pulmonary arterial hypertension. 5. Recent-appearing nondisplaced fractures of the posterior right fifth and sixth ribs. Venous Doppler Study 04/12/24 14:56 IMPRESSION: 1. No deep venous thrombosis within the bilateral lower extremities. Chest X-Ray 04/16/24 12:14 IMPRESSION: 1. Airspace opacities at the lung bases, consistent with atelectasis versus pneumonia. 2. Stable small pleural effusions. 3. Cardiomegaly. Labs Labs: Laboratory Results - last 24 hr 04/19/24 04:12 WBC 3.7 L RBC 3.45 L Hgb 10.3 L Hct 31.8 L MCV 92.2 MCH 29.9 MCHC 32.4 RDW 15.1 H Plt Count 212 MPV 10.8 H Sodium 135 L Potassium 2.8 L* Chloride 92 L Carbon Dioxide 36 H Anion Gap 7 BUN 14 Creatinine 0.58 L Estim Creat Clear Calc 64 Estimated GFR > 60 Glucose 88 Calcium 7.6 L Magnesium 1.5 L
[2024-04-19] MEDS: LEVALBUTEROL NEB 1.25 MG/3 ML 0.63 MG INHALATION (16:30)
--- NOTE | 2024-04-19 19:11 | P.PNPL_ITS ---
Progress Note: A&P Assessment and Plan (1) Chronic respiratory failure: Qualifiers: Respiratory failure complication: hypoxia Qualified Code(s): J96.11 - Chronic respiratory failure with hypoxia Code(s): J96.10 - Chronic respiratory failure, unspecified whether with hypoxia or hypercapnia Status: Acute Assessment and Plan: This 88-year-old female patient with a history of mild COPD, chronically on maintenance bronchodilators, and chronic hypoxemia managed with supplemental oxygen, has untreated sleep apnea and recent atrial fibrillation for which she is receiving treatment, including anticoagulants. She presented with shortness of breath related to a pneumothorax. Despite the resolution of the pneumothorax, she continued to experience shortness of breath related to congestive heart failure. On physical examination, the patient presented with bilateral crackles, jugular venous distension (JVD), and lower extremity edema despite diuresis, indicating an overall positive fluid balance. The patient was managed with auto CPAP and supplemental oxygen at night while in the medical-surgical back due to persistent nocturnal hypoxemia on oxygen alone. Following a worsening of her respiratory status, she was transferred to the intensive care unit and switched to BiPAP at settings of 12/8, along with supplemental oxygen. Treatment for her atrial fibrillation included full-dose Lovenox and antibiotics. A chest X-ray review showed bilateral pleural effusions and some pulmonary congestion, but no new infiltrates to suggest a lower respiratory tract infection. After diuresis, her cardiorespiratory status improved, and she was transferred back to a regular room. Recapping the cardiorespiratory status, the patient has mild sleep apnea, confirmed by a 2009 sleep study that demonstrated successful titration with a requirement of 11 cm of water pressure. However, she has not been utilizing CPAP therapy. Pulmonary function testing approximately 6 years ago indicated mild obstructive airway disease, though these test results are not available for review. Over the years, she has been treated for atrial fibrillation with unsuccessful defibrillation and is currently on daily amiodarone. Echocardiograms have shown severe biatrial enlargement with elevated pulmonary artery systolic pressure at 42 mmHg and an ejection fraction (EF) ranging from 60 to 65%. Severe left atrial enlargement is likely due to left ventricular diastolic dysfunction, common in this age group, leading to pulmonary hypertension exacerbated by untreated sleep-disordered breathing and further complicated by right ventricular dysfunction. Her presentation with bilateral pleural effusions and severe lower extremity edema is clearly related to CHF, with no evidence of lower respiratory tract infection. The plan includes correcting nocturnal hypoxemia through ventilatory support at home. The patient appears to be tolerating BiPAP well during this hospitalization. ApneaLink study on BiPAP support and FiO2 40% showed no evidence of oxyhemoglobin desaturation. During today's physical exam, the patient still presents with a few crackles at the lung bases and decreased breath sounds due to ongoing pleural effusions. There is no wheezing noted, and her lower extremity edema has significantly improved. The patient is currently in isolation following a positive COVID PCR test. Her respiratory status is stable, and she is not exhibiting symptoms such as cough or fever that would suggest COVID-19 pneumonia. In fact, her gas exchange has improved since her transfer from the ICU to the medical back. It is probable that the onset of COVID-19 occurred several days ago, aligning with a decline in her cardiorespiratory status, which required enhanced support and monitoring in the ICU. The patient is likely to benefit from ventilatory support at home. For someone with sleep apnea and complex cardiorespiratory conditions, such as biventricular congestive heart failure, atrial fibrillation, elevated pulmonary artery systolic pressure, bilateral pleural effusions, and pulmonary edema, home ventilation offers significant advantages over standard BiPAP support. Home ventilators provide more comprehensive respiratory assistance by delivering a controlled volume of air, ensuring adequate ventilation. This is particularly beneficial for managing hypoventilation and respiratory failure associated with sleep apnea. Home ventilation can also enhance oxygenation and carbon dioxide elimination more effectively than BiPAP alone, addressing issues like hypercapnia and hypoxemia. For patients with multiple comorbidities like this one, home ventilation can better manage the complex interactions between respiratory and cardiovascular systems, potentially reducing hospitalizations. Additionally, it can lead to improved sleep quality, reduced daytime symptoms, and an overall enhancement in quality of life. The patient appears to be tolerating BiPAP support well, and the recent ApneaLink monitor indicates that nocturnal hypoxemia has been corrected. Considering the significant cardiorespiratory issues, including congestive heart failure, atrial fibrillation, and bilateral pleural effusions, it is imperative to initiate home ventilator support. Without this treatment, the patient is at high risk for adverse clinical outcomes, such as rehospitalization due to cardiorespiratory failure or even . Plan: With cardiac dysfunction and hypercapnia, AVAPS may provide more relief and she may tolerate it better. Stop BiPAP, change to AVAPS with sleep and when short of breath in the day. she can use nasal cannula in the day and wean O2 as tolerated to keep sat 90- 94%. No need to initiate treatment for COVID at this point. (2) COPD (chronic obstructive pulmonary disease): Qualifiers: COPD type: unspecified COPD Qualified Code(s): J44.9 - Chronic obstructive pulmonary disease, unspecified Code(s): J44.9 - Chronic obstructive pulmonary disease, unspecified Status: Acute Assessment and Plan: Long standing, on Trelegy alone for controller therapy and p.r.n. beta agonist. (3) Hypoxemia: Code(s): R09.02 - Hypoxemia Status: Acute Assessment and Plan: on High Flow 35 L min and 39%, lower over the last few days. She needed more O2 after diagnosis of COVID. . (4) Acute on chronic hypoxic respiratory failure: Code(s): J96.21 - Acute and chronic respiratory failure with hypoxia Status: Acute Assessment and Plan: Acute worsening this admission with fall, 2 right rib fractures, CHF, now COVID. Now improved. (5) MARC (obstructive sleep apnea): Code(s): G47.33 - Obstructive sleep apnea (adult) (pediatric) Status: Acute Assessment and Plan: PSG 09/27/09 - mild MARC AHI 7.2 CPAP titration 10/10/09 - inadequate titration, recommend repeat titration CPAP Titration 10/21/09 - recommend CPAP [id number]. She now has mild hypercapnia, CHF with biatrial enlargement, enlarged RV, diastolic dysfunction, pulmonary hypertension. She qualifies for a non-invasive positive pressure ventilator, may be better to do this than to consider sleep study. Continue AVAPS, she did well last night, 9 hours continuosly. . (6) CHF (congestive heart failure): Qualifiers: Heart failure chronicity: unspecified Heart failure type: unspecified Qualified Code(s): I50.9 - Heart failure, unspecified Code(s): I50.9 - Heart failure, unspecified Status: Acute Assessment and Plan: managed by [facility] cardiology group as an out patient; had atrial fib requiring admission Jan 21 (7) Afib: Qualifiers: Atrial fibrillation type: unspecified Qualified Code(s): I48.91 - Unspecified atrial fibrillation Code(s): I48.91 - Unspecified atrial fibrillation Status: Acute Assessment and Plan: rate is about 100 (8) COVID-19: Code(s): U07.1 - COVID-19 Status: Acute Assessment and Plan: She had a (+) SARS-CoV-2 on 04/16, a few days after she had worsening, but does not meet criteria to require treatment. She never had COVID that she knows of; was vaccinated against COVID at start of pandemic. She does not require specific treatment with anti-virals. Plan plan: 1) She tolerated AVAPS last night, wore it 9 hours. She does not want to wear it that long tonight. She agreed to 5 hours, starting at 11 pm tonight and wearing until 4 or 5 am. this was a big improvement over BiPAP 01/25 with sleep. 2) she is on high flow O2 in the day, 35 L/min and 39%. This is not a high level of o2 delivery. continue to wean O2; she can change from high flow to regular NC tomorrow coming off AVAPS. 3) She is on Trelegy alone as a COPD controller medication. 4) repeat CXR tomorrow. She had shortness of breath today, has not had a CXR in several days. 5) ask director of strategic alliances to assist in acquiring AVAPS for home use. 2) She has mild hypercapnia, pCO2 is around 48, not high. She has atrial fib, enlarged chambers except for LV, pulmonary hypertension, TR. She is benefiting from AVAPS; continue Max inspiratory pressure 25 cm, minimum inspiratory pressure 14 cm, EPAP 8 cm, rate 14, rise 3, I-time 0.9 seconds. FiO2 50%. this may need to be tweaked. She may need adjustments to make it more comfortable. Subjective Date/time seen: 04/19/24 19:11 Interval history: 04/19/24: She used AVAPs 9 hours last night, had a problem with the tape that the tech placed over the bridge of her nose, causing a large air leak while using AVAPS. She could not move her head even a little without loud noisy air coming out. The tape was removed, problem solved. She had shortness of breath this evening. It see4ms better, thinks it might have been anxiety. 04/18/24 : 88 year old female with COVID 2/27, mild hypercapnia, on Vapotherm O2 @ 35 L/minute and 40%, saturation 93%. last CXR 2/27/25= Airspace opacities at the lung bases, consistent with atelectasis versus pneumonia. 2. Stable small pleural effusions. 3. Cardiomegaly. 04/17/24: She has no new respiratory complaints. She refused BiPAP support last night, willing to resume it today. She is still on high-flow nasal cannula. No cough fever chills. Tested positive for COVID, currently in isolation. DATA * 01/22/24 echo:Left ventricular chamber dimension is normal. 2. Left ventricular systolic function is normal, estimated at 60-65%. 3. There is mildly increased left ventricular wall thickness. 4. The left ventricular diastolic function is indeterminate. 5. Right ventricular chamber dimension is mildly enlarged. 6. Left atrial chamber dimension is severely enlarged. 7. Right atrial chamber dimension is severely enlarged. 8. There is mild mitral valve regurgitation. 9. There is mild to moderate tricuspid valve regurgitation. 10. Mild pulmonary hypertension, estimated pulmonary arterial systolic pressure is 42 mmHg. 11. There is mild pulmonic regurgitation. 12. The aortic root size at the sinus of Valsalva is mildly dilated. 13. Dilated inferior vena cava with <50% collapse upon inspiration consistent with elevated right atrial pressure, 15 mmHg. Review of Systems Review of Systems: All systems reviewed & are unremarkable except as noted in HPI and below Exam Narrative: GEN: Alert, oriented, not in distress. O2 delivery High Flow 35 L/min and 39%, saturation is 93% HEENT: pupils are equal, EOMI, symmetrical face NECK: Trachea is midline CHEST: Equal air entry, symmetric excursion, decreased breath sounds in bases. She has discomfort on right lateral chest from a fall into cabinets with rib fractures right side 5th and 6th ribs. She had a chest tube on admission. CV: Irregular S1S2, atrial fib at 102 bpm, no m/g/r Extremities : no clubbing, cyanosis, edema PSYCH: normal thought and speech Objective Data Vital Signs Vital Signs: Vital Signs - 24 hr 04/18/24 20:00 04/18/24 20:00 04/18/24 20:00 Temperature 36.9 C Pulse Rate 124 H 105 H 104 H Respiratory Rate 20 20 Blood Pressure 110/68 Pulse Oximetry 95 95 Oxygen Delivery High Flow Therapy with Na Oxygen Flow Rate 35 Fraction of Inspired Oxygen 39 04/18/24 20:37 04/18/24 22:00 04/18/24 23:22 Temperature 36.9 C Pulse Rate 104 H 95 Respiratory Rate 20 Blood Pressure 115/76 Pulse Oximetry 93 93 Oxygen Delivery High Flow Therapy with Na Oxygen Flow Rate 35 Fraction of Inspired Oxygen 39 04/19/24 00:00 04/19/24 00:00 04/19/24 01:00 Temperature Pulse Rate 95 106 H 86 Respiratory Rate 20 20 Blood Pressure Pulse Oximetry 93 96 Oxygen Delivery High Flow Therapy with Na BiPAP Oxygen Flow Rate 35 Fraction of Inspired Oxygen 39 04/19/24 02:00 04/19/24 04:00 04/19/24 04:06 Temperature 37.1 C Pulse Rate 92 90 83 Respiratory Rate 26 H Blood Pressure 124/73 Pulse Oximetry 98 Oxygen Delivery Oxygen Flow Rate Fraction of Inspired Oxygen 04/19/24 05:30 04/19/24 06:00 04/19/24 08:00 Temperature 36.7 C Pulse Rate 83 86 91 Respiratory Rate 26 H 20 Blood Pressure 117/66 Pulse Oximetry 98 96 Oxygen Delivery BiPAP Oxygen Flow Rate Fraction of Inspired Oxygen 50 04/19/24 08:00 04/19/24 08:00 04/19/24 08:49 Temperature Pulse Rate 80 Respiratory Rate Blood Pressure Pulse Oximetry 95 95 Oxygen Delivery High Flow Therapy with Na High Flow Therapy with Na Oxygen Flow Rate 35 35 Fraction of Inspired Oxygen 39 39 04/19/24 09:08 04/19/24 09:10 04/19/24 10:00 Temperature Pulse Rate 104 H 104 H 98 Respiratory Rate Blood Pressure Pulse Oximetry Oxygen Delivery Oxygen Flow Rate Fraction of Inspired Oxygen 04/19/24 11:55 04/19/24 12:00 04/19/24 12:00 Temperature 36.4 C L Pulse Rate 95 108 H Respiratory Rate 20 Blood Pressure 112/64 Pulse Oximetry 96 96 Oxygen Delivery High Flow Therapy with Na Oxygen Flow Rate 35 Fraction of Inspired Oxygen 39 04/19/24 14:00 04/19/24 14:16 04/19/24 16:00 Temperature 36.7 C Pulse Rate 104 H 103 H Respiratory Rate 20 Blood Pressure 107/60 Pulse Oximetry 92 96 Oxygen Delivery High Flow Therapy with Na Oxygen Flow Rate 35 Fraction of Inspired Oxygen 39 04/19/24 16:00 04/19/24 16:00 04/19/24 16:30 Temperature Pulse Rate 104 H 97 Respiratory Rate 20 Blood Pressure Pulse Oximetry 96 Oxygen Delivery High Flow Therapy with Na Oxygen Flow Rate 35 Fraction of Inspired Oxygen 39 04/19/24 16:38 04/19/24 18:00 Temperature Pulse Rate 106 H 108 H Respiratory Rate 20 Blood Pressure Pulse Oximetry Oxygen Delivery Oxygen Flow Rate Fraction of Inspired Oxygen Intake/Output Intake/Output: Intake & Output 04/16/24 04/17/24 04/18/24 04/19/24 23:59 23:59 23:59 23:59 Intake Total 1470 1690 1460 2009 Output Total 3201 1700 1252 1650 [facility] [phone] Meds/Results Medications: Active Medications Generic Name Dose Route Start Last Admin Trade Name Freq PRN Reason Stop Dose Admin Acetaminophen 1,000 mg 03/28/24 09:37 04/18/24 23:48 Acetaminophen 500 Mg Tablet PO 1,000 mg Q6H PRN Administration Mild Pain (1-3) or Fever Amiodarone HCl 200 mg 03/27/24 09:00 04/19/24 09:08 Amiodarone Hcl 200 Mg Tablet PO 200 mg DAILY MIGUEL Administration Ascorbic Acid 1,000 mg 03/27/24 09:00 04/19/24 09:08 Ascorbic Acid 500 Mg Tablet PO 1,000 mg QAM MIGUEL Administration Atorvastatin Calcium 40 mg 03/27/24 09:00 04/19/24 09:11 Atorvastatin 40 Mg Tablet PO 40 mg DAILY MIGUEL Administration Buspirone HCl 5 mg 03/27/24 09:00 04/19/24 17:55 Buspirone Hcl 5 Mg Tablet PO 5 mg BID MIGUEL Administration Calcium Carbonate 500 mg 03/27/24 09:00 04/19/24 09:07 Calcium Carbonate (Oscal) 500 Mg Tablet PO 500 mg QAM MIGUEL Administration Enoxaparin Sodium 100 mg 04/15/24 09:00 04/19/24 09:09 Enoxaparin 100 Mg/Ml Syringe SUB-Q 100 mg Q12H MIGUEL Administration Fluticasone/Umeclidinium/Vilanterol 1 puff 04/04/24 08:00 04/19/24 08:46 Fluticasone/Umeclidin/Vilanter 100-62.5-25 Mcg Ellipta INHALATION 1 puff DAILYRT MIGUEL Administration Furosemide 40 mg 04/10/24 17:00 04/19/24 17:54 Furosemide Inj 40 Mg/4 Ml Vial IV PUSH 40 mg BID MIGUEL Administration Levalbuterol HCl 0.63 mg 04/15/24 09:27 04/19/24 16:30 Levalbuterol Neb 1.25 Mg/3 Ml INHALATION 0.63 mg Q6HRT PRN Administration Shortness Of Breath Or Wheezing Levothyroxine Sodium 75 mcg 03/28/24 06:30 04/19/24 06:00 Levothyroxine Sodium 75 Mcg Tablet BY MOUTH 75 mcg DAILY@0630 MIGUEL Administration Lidocaine 1 patch 03/30/24 09:00 04/19/24 09:10 Lidocaine 5% Patch TRANSDERM 1 patch DAILY MIGUEL Administration Melatonin 5 mg 04/13/24 21:00 04/18/24 22:15 Melatonin 5 Mg Tablet PO 5 mg HS MIGUEL Administration Metoprolol Succinate 50 mg 03/27/24 09:00 04/19/24 09:10 Metoprolol Succinate Ext Rel 50 Mg Tabcr PO 50 mg QAM MIGUEL Administration Metoprolol Tartrate 12.5 mg 04/16/24 10:50 04/17/24 06:09 Metoprolol Tartrate 12.5 Mg Tablet PO 12.5 mg Q12HR PRN Administration Heart rate > 100 * Home Med * 300 mg 04/14/24 09:00 04/14/24 17:24 Dupilumab [Dupixent SUB-Q 05/14/24 08:59 300 mg Syringe] 300 Mg/2 Ml [id number] MIGUEL Administration Syringe Pantoprazole Sodium 40 mg 04/13/24 09:00 04/19/24 09:10 Pantoprazole 40 Mg Tablet PO 40 mg QAM MIGUEL Administration Prochlorperazine Edisylate 5 mg 04/15/24 00:39 04/15/24 00:52 Prochlorperazine Edisylate 10 Mg/2 Ml Vial IV PUSH 5 mg Q6H PRN Administration Nausea And Vomiting Senna/Docusate Sodium 2 tab 04/13/24 12:43 Senna/Docusate Sodium Tablet PO BID PRN Constipation Sodium Chloride 2 gm 04/07/24 17:00 04/19/24 17:55 Sodium Chloride 1 Gm Tablet PO 2 gm BID MIGUEL Administration Radiology Results: ITS Impressions Chest CT 03/26/24 21:50 IMPRESSION: Redemonstration of a right-sided pneumothorax, approximately 15-20% in size with a right posterior medial fifth rib fracture. Head CT 03/26/24 23:09 Impression: No acute intracranial hemorrhage or suspicious mass effect. Cervical Spine CT 03/26/24 23:13 Impression: Straightening and slight reversal of the normal curvature of the cervical spine, likely muscular in origin. Significant degenerative disease, without acute fracture. Chest CTA 03/29/24 08:00 IMPRESSION: 1. Right chest tube in expected position with small right pleural effusion but no pneumothorax. 2. Mild emphysema with mild dependent atelectasis in both lungs. 3. Cardiomegaly with biatrial enlargement. 4. Enlargement of the central pulmonary arteries consistent with pulmonary arterial hypertension. 5. Recent-appearing nondisplaced fractures of the posterior right fifth and sixth ribs. Venous Doppler Study 04/12/24 14:56 IMPRESSION: 1. No deep venous thrombosis within the bilateral lower extremities. Chest X-Ray 04/16/24 12:14 IMPRESSION: 1. Airspace opacities at the lung bases, consistent with atelectasis versus pneumonia. 2. Stable small pleural effusions. 3. Cardiomegaly. Labs Labs: Laboratory Results - last 24 hr 04/19/24 04:12 WBC 3.7 L RBC 3.45 L Hgb 10.3 L Hct 31.8 L MCV 92.2 MCH 29.9 MCHC 32.4 RDW 15.1 H Plt Count 212 MPV 10.8 H Sodium 135 L Potassium 2.8 L* Chloride 92 L Carbon Dioxide 36 H Anion Gap 7 BUN 14 Creatinine 0.58 L Estim Creat Clear Calc 64 Estimated GFR > 60 Glucose 88 Calcium 7.6 L Magnesium 1.5 L
[2024-04-19] MEDS: METOPROLOL TARTRATE 12.5 MG TABLET PO (22:08)
[2024-04-19] MEDS: MELATONIN 5 MG TABLET PO (22:09)
[2024-04-19] MEDS: ACETAMINOPHEN 500 MG TABLET 1000 MG PO (22:09)
[2024-04-20] VITALS (23 sets, daily range): BP systolic 103–140; BP diastolic 60–76; PULSE 76–112; RESP 20–24; TEMP 36.3–37; O2SAT 90–100
[2024-04-20 04:33] LABS: Hematocrit 33.4 % (37.0-47.0); Hemoglobin 10.5 g/dL (12.0-15.0); Mean Corpuscular HGB Conc 31.4 g/dl (32-36); Mean Corpuscular Volume 92.3 fl (80-100); Mean Platelet Volume 10.8 fl (7.4-10.4); Platelet Count Result 203 k/mm3 (150-375); Red Blood Count 3.62 M/mm3 (4.2-5.4); Red Cell Distribution Width 15.1 % (11.5-14.5); White Blood Count 4.7 K/mm3 (4.5-10.0)
[2024-04-20 05:07] LABS: Anion Gap 7 mmol/L (4-12); Blood Urea Nitrogen 15 mg/dL (7-17); Calcium 7.5 mg/dL (8.4-10.2); Carbon Dioxide 32 mmol/L (22-30); Chloride 95 mmol/L (98-107); Estimated CRCL calculation 56 ml/min; Estimated Glomerular Filt Rate > 60; Glucose 89 mg/dL (65-110); Magnesium 1.8 mg/dL (1.6-2.3); Potassium 3.1 mmol/L (3.4-5.0); Sodium 134 mmol/L (137-145)
[2024-04-20] MEDS: LEVOTHYROXINE SODIUM 75 MCG TABLET BY MOUTH (05:32)
[2024-04-20] MEDS: FLUTICASONE/UMECLIDIN/VILANTER 100-62.5-25 MCG ELLIPTA 1 PUFF INHALATION (08:49)
--- NOTE | 2024-04-20 10:18 | PM.PNPUL ---
Progress Note: A&P Assessment and Plan (1) COPD (chronic obstructive pulmonary disease): Qualifiers: COPD type: unspecified COPD Qualified Code(s): J44.9 - Chronic obstructive pulmonary disease, unspecified Code(s): J44.9 - Chronic obstructive pulmonary disease, unspecified Status: Acute (2) Hypoxemia: Code(s): R09.02 - Hypoxemia Status: Acute (3) Chronic respiratory failure: Qualifiers: Respiratory failure complication: hypoxia Qualified Code(s): J96.11 - Chronic respiratory failure with hypoxia Code(s): J96.10 - Chronic respiratory failure, unspecified whether with hypoxia or hypercapnia Status: Acute Assessment and Plan: This 88-year-old female patient with a history of mild COPD, chronically on maintenance bronchodilators, and chronic hypoxemia managed with supplemental oxygen, has untreated sleep apnea and recent atrial fibrillation for which she is receiving treatment, including anticoagulants. She presented with shortness of breath related to a pneumothorax. Despite the resolution of the pneumothorax, she continued to experience shortness of breath related to congestive heart failure. On physical examination, the patient presented with bilateral crackles, jugular venous distension (JVD), and lower extremity edema despite diuresis, indicating an overall positive fluid balance. The patient was managed with auto CPAP and supplemental oxygen at night while in the medical-surgical back due to persistent nocturnal hypoxemia on oxygen alone. Following a worsening of her respiratory status, she was transferred to the intensive care unit and switched to BiPAP at settings of 12/8, along with supplemental oxygen. Treatment for her atrial fibrillation included full-dose Lovenox and antibiotics. A chest X-ray review showed bilateral pleural effusions and some pulmonary congestion, but no new infiltrates to suggest a lower respiratory tract infection. After diuresis, her cardiorespiratory status improved, and she was transferred back to a regular room. Over the last week or so the respiratory status has remained essentially unchanged with a chest x-ray still showing pulmonary congestion and small pleural effusion as before although clinically the patient has improved. She received no treatment for COVID-19 infection. She uses BiPAP support and supplemental oxygen. Over the weekend she was switched to BiPAP AVAPS. She slept well on AVAPS last night. Her grandson who was helping her with the decision making is currently out of town. Plan: Continue with current regimen supplemental oxygen via nasal cannula BiPAP AVAPS at night and treatment for her congestive heart failure. Await approval of home ventilator for use in the hospital prior to discharge home. (4) Acute on chronic hypoxic respiratory failure: Code(s): J96.21 - Acute and chronic respiratory failure with hypoxia Status: Acute (5) MARC (obstructive sleep apnea): Code(s): G47.33 - Obstructive sleep apnea (adult) (pediatric) Status: Acute (6) CHF (congestive heart failure): Qualifiers: Heart failure type: unspecified Heart failure chronicity: unspecified Qualified Code(s): I50.9 - Heart failure, unspecified Code(s): I50.9 - Heart failure, unspecified Status: Acute (7) Afib: Qualifiers: Atrial fibrillation type: unspecified Qualified Code(s): I48.91 - Unspecified atrial fibrillation Code(s): I48.91 - Unspecified atrial fibrillation Status: Acute (8) COVID-19: Code(s): U07.1 - COVID-19 Status: Acute Subjective Date/time seen: 04/20/24 10:18 Interval history: Patient has no new respiratory symptoms. Her respiratory status over the weekend has been more or less unchanged. She has been using BiPAP support and supplemental oxygen at night. Over the week she was switched to BiPAP AVAPS. She continues to require relatively high FiO2 via high-flow nasal cannula. She has no shortness of breath when in bed. Review of Systems Review of Systems: All systems reviewed & are unremarkable except as noted in HPI and below (HPI and below) Exam Narrative: GENERAL APPEARANCE: Well developed, well nourished, alert and cooperative, and appears to be in mild respiratory distress while on supplemental oxygen SKIN: Inspection of the skin reveals no rashes, ulcerations or petechiae. HEENT: Sclerae anicteric and conjunctivae pink and moist. Extraocular movements were intact and pupils were equal, round. Dry oral mucosa. NECK: Supple. There was no thyroid enlargement, and no tenderness, or masses were felt. LUNGS: Crackles bilaterally, less than before, no wheezing CARDIAC: There was irregular rate and rhythm without any murmurs, gallops, rubs. Tachycardic ABDOMEN: Soft and nontender with normal bowel sounds. There was no organomegaly. LYMPH NODES: No lymphadenopathy was appreciated in the neck, axillae or groin. EXTREMITIES: No cyanosis, clubbing. Trace pedal edema. NEUROLOGIC: Alert. Normal affect. Objective Data Vital Signs Vital Signs: Vital Signs - 24 hr 04/19/24 11:55 04/19/24 12:00 04/19/24 12:00 Temperature 36.4 C L Pulse Rate 95 108 H Respiratory Rate 20 Blood Pressure 112/64 Pulse Oximetry 96 96 Oxygen Delivery High Flow Therapy with Na Oxygen Flow Rate 35 Fraction of Inspired Oxygen 39 04/19/24 14:00 04/19/24 14:16 04/19/24 16:00 Temperature 36.7 C Pulse Rate 104 H 103 H Respiratory Rate 20 Blood Pressure 107/60 Pulse Oximetry 92 96 Oxygen Delivery High Flow Therapy with Na Oxygen Flow Rate 35 Fraction of Inspired Oxygen 39 04/19/24 16:00 04/19/24 16:00 04/19/24 16:30 Temperature Pulse Rate 104 H 97 Respiratory Rate 20 Blood Pressure Pulse Oximetry 96 Oxygen Delivery High Flow Therapy with Na Oxygen Flow Rate 35 Fraction of Inspired Oxygen 39 04/19/24 16:38 04/19/24 18:00 04/19/24 20:00 Temperature Pulse Rate 106 H 108 H Respiratory Rate 20 Blood Pressure Pulse Oximetry 90 Oxygen Delivery High Flow Therapy with Na Oxygen Flow Rate 35 Fraction of Inspired Oxygen 35 04/19/24 20:00 04/19/24 20:12 04/19/24 20:42 Temperature 36.8 C Pulse Rate 107 H 113 H Respiratory Rate 20 Blood Pressure 105/77 Pulse Oximetry 95 92 Oxygen Delivery High Flow Therapy with Na Oxygen Flow Rate 35 Fraction of Inspired Oxygen 39 04/19/24 22:00 04/19/24 22:08 04/19/24 23:08 Temperature Pulse Rate 106 H 106 H 110 H Respiratory Rate 23 H Blood Pressure Pulse Oximetry 95 Oxygen Delivery BiPAP Oxygen Flow Rate Fraction of Inspired Oxygen 04/19/24 23:13 04/20/24 00:00 04/20/24 00:00 Temperature 37.0 C Pulse Rate 92 76 Respiratory Rate 17 Blood Pressure 100/66 Pulse Oximetry 97 98 Oxygen Delivery BiPAP Oxygen Flow Rate Fraction of Inspired Oxygen 40 04/20/24 02:00 04/20/24 02:33 04/20/24 04:00 Temperature Pulse Rate 84 Respiratory Rate 23 H Blood Pressure Pulse Oximetry 100 97 Oxygen Delivery BiPAP BiPAP Oxygen Flow Rate Fraction of Inspired Oxygen 40 04/20/24 04:00 04/20/24 04:47 04/20/24 04:54 Temperature 37.0 C Pulse Rate 78 102 H Respiratory Rate 20 Blood Pressure 103/65 Pulse Oximetry 90 95 Oxygen Delivery High Flow Therapy with Na Oxygen Flow Rate 9 Fraction of Inspired Oxygen 04/20/24 05:56 04/20/24 08:00 04/20/24 08:49 Temperature 36.3 C L Pulse Rate 87 89 Respiratory Rate 24 H Blood Pressure 131/74 Pulse Oximetry 98 93 Oxygen Delivery High Flow Therapy with Na Oxygen Flow Rate 9 Fraction of Inspired Oxygen 04/20/24 08:49 Temperature Pulse Rate 100 Respiratory Rate 20 Blood Pressure Pulse Oximetry Oxygen Delivery Oxygen Flow Rate Fraction of Inspired Oxygen Intake/Output Intake/Output: Intake & Output 04/17/24 04/18/24 04/19/24 04/20/24 23:59 23:59 23:59 23:59 Intake Total 1690 1460 2010 240 Output Total 1700 1252 2650 400 Balance -10 208 -640 -160 Meds/Results Medications: Active Medications Generic Name Dose Route Start Last Admin Trade Name Freq PRN Reason Stop Dose Admin Acetaminophen 1,000 mg 03/28/24 09:37 04/19/24 22:09 Acetaminophen 500 Mg Tablet PO 1,000 mg Q6H PRN Administration Mild Pain (1-3) or Fever Amiodarone HCl 200 mg 03/27/24 09:00 04/19/24 09:08 Amiodarone Hcl 200 Mg Tablet PO 200 mg DAILY MIGUEL Administration Ascorbic Acid 1,000 mg 03/27/24 09:00 04/19/24 09:08 Ascorbic Acid 500 Mg Tablet PO 1,000 mg QAM MIGUEL Administration Atorvastatin Calcium 40 mg 03/27/24 09:00 04/19/24 09:11 Atorvastatin 40 Mg Tablet PO 40 mg DAILY MIGUEL Administration Buspirone HCl 5 mg 03/27/24 09:00 04/19/24 17:55 Buspirone Hcl 5 Mg Tablet PO 5 mg BID MIGUEL Administration Calcium Carbonate 500 mg 03/27/24 09:00 04/19/24 09:07 Calcium Carbonate (Oscal) 500 Mg Tablet PO 500 mg QAM MIGUEL Administration Enoxaparin Sodium 100 mg 04/15/24 09:00 04/19/24 21:05 Enoxaparin 100 Mg/Ml Syringe SUB-Q 100 mg Q12H MIGUEL Administration Fluticasone/Umeclidinium/Vilanterol 1 puff 04/04/24 08:00 04/20/24 08:49 Fluticasone/Umeclidin/Vilanter 100-62.5-25 Mcg Ellipta INHALATION 1 puff DAILYRT MIGUEL Administration Furosemide 40 mg 04/10/24 17:00 04/19/24 17:54 Furosemide Inj 40 Mg/4 Ml Vial IV PUSH 40 mg BID MIGUEL Administration Levalbuterol HCl 0.63 mg 04/15/24 09:27 04/19/24 16:30 Levalbuterol Neb 1.25 Mg/3 Ml INHALATION 0.63 mg Q6HRT PRN Administration Shortness Of Breath Or Wheezing Levothyroxine Sodium 75 mcg 03/28/24 06:30 04/20/24 05:32 Levothyroxine Sodium 75 Mcg Tablet BY MOUTH 75 mcg DAILY@0630 MIGUEL Administration Lidocaine 1 patch 03/30/24 09:00 04/19/24 09:10 Lidocaine 5% Patch TRANSDERM 1 patch DAILY MIGUEL Administration Melatonin 5 mg 04/13/24 21:00 04/19/24 22:09 Melatonin 5 Mg Tablet PO 5 mg HS MIGUEL Administration Metoprolol Succinate 50 mg 03/27/24 09:00 04/19/24 09:10 Metoprolol Succinate Ext Rel 50 Mg Tabcr PO 50 mg QAM MIGUEL Administration Metoprolol Tartrate 12.5 mg 04/16/24 10:50 04/19/24 22:08 Metoprolol Tartrate 12.5 Mg Tablet PO 12.5 mg Q12HR PRN Administration Heart rate > 100 * Home Med * 300 mg 04/14/24 09:00 04/14/24 17:24 Dupilumab [Dupixent SUB-Q 05/14/24 08:59 300 mg Syringe] 300 Mg/2 Ml [id number] MIGUEL Administration Syringe Pantoprazole Sodium 40 mg 04/13/24 09:00 04/19/24 09:10 Pantoprazole 40 Mg Tablet PO 40 mg QAM MIGUEL Administration Prochlorperazine Edisylate 5 mg 04/15/24 00:39 04/15/24 00:52 Prochlorperazine Edisylate 10 Mg/2 Ml Vial IV PUSH 5 mg Q6H PRN Administration Nausea And Vomiting Senna/Docusate Sodium 2 tab 04/13/24 12:43 Senna/Docusate Sodium Tablet PO BID PRN Constipation Sodium Chloride 2 gm 04/07/24 17:00 04/19/24 17:55 Sodium Chloride 1 Gm Tablet PO 2 gm BID MIGUEL Administration Radiology Results: ITS Impressions Chest CT 03/26/24 21:50 IMPRESSION: Redemonstration of a right-sided pneumothorax, approximately 15-20% in size with a right posterior medial fifth rib fracture. Head CT 03/26/24 23:09 Impression: No acute intracranial hemorrhage or suspicious mass effect. Cervical Spine CT 03/26/24 23:13 Impression: Straightening and slight reversal of the normal curvature of the cervical spine, likely muscular in origin. Significant degenerative disease, without acute fracture. Chest CTA 03/29/24 08:00 IMPRESSION: 1. Right chest tube in expected position with small right pleural effusion but no pneumothorax. 2. Mild emphysema with mild dependent atelectasis in both lungs. 3. Cardiomegaly with biatrial enlargement. 4. Enlargement of the central pulmonary arteries consistent with pulmonary arterial hypertension. 5. Recent-appearing nondisplaced fractures of the posterior right fifth and sixth ribs. Venous Doppler Study 04/12/24 14:56 IMPRESSION: 1. No deep venous thrombosis within the bilateral lower extremities. Chest X-Ray 04/20/24 07:42 Impression: Small bilateral pleural effusions with mild bibasilar pulmonary edema. Labs Labs: Laboratory Results - last 24 hr 04/20/24 04:10 WBC 4.7 RBC 3.62 L Hgb 10.5 L Hct 33.4 L MCV 92.3 MCH 29.0 MCHC 31.4 L RDW 15.1 H Plt Count 203 MPV 10.8 H Sodium 134 L Potassium 3.1 L Chloride 95 L Carbon Dioxide 32 H Anion Gap 7 BUN 15 Creatinine 0.55 L Estim Creat Clear Calc 56 Estimated GFR > 60 Glucose 89 Calcium 7.5 L Magnesium 1.8
[2024-04-20] MEDS: AMIODARONE HCL 200 MG TABLET PO (10:30)
[2024-04-20] MEDS: PANTOPRAZOLE 40 MG TABLET PO (10:30)
[2024-04-20] MEDS: SODIUM CHLORIDE 1 GM TABLET 2 GM PO ×2 (10:30→18:06)
[2024-04-20] MEDS: LIDOCAINE 5% PATCH 1 PATCH TRANSDERM (10:30)
[2024-04-20] MEDS: CALCIUM CARBONATE (OSCAL) 500 MG TABLET PO (10:30)
[2024-04-20] MEDS: ATORVASTATIN 40 MG TABLET PO (10:30)
[2024-04-20] MEDS: METOPROLOL SUCCINATE EXT REL 50 MG TABCR PO (10:31)
[2024-04-20] MEDS: busPIRone HCL 5 MG TABLET PO ×2 (10:31→18:06)
[2024-04-20] MEDS: ASCORBIC ACID 500 MG TABLET 1000 MG PO (10:31)
[2024-04-20] MEDS: POTASSIUM CHLORIDE 20 MEQ PACKET (FOR LIQUID) 40 MEQ PO (10:32)
[2024-04-20] MEDS: ENOXAPARIN 100 MG/ML SYRINGE SUB-Q ×2 (10:32→20:45)
[2024-04-20] MEDS: FUROSEMIDE INJ 40 MG/4 ML VIAL IV PUSH ×2 (10:32→18:06)
--- NOTE | 2024-04-20 11:06 | PCNWS ---
Weekly nutritional screen. Patient is tolerating current heart healthy diet diet with adequate intake most meals, Ensure Enlive BID and nutrition ice cream cups BID. No weight loss reported. No nutritional recommendations at this time.
--- NOTE | 2024-04-20 14:50 | PM.IMPN ---
Progress Note: A&P Assessment and Plan (1) Pneumothorax: Qualifiers: Pneumothorax type: spontaneous, primary Qualified Code(s): J93.11 - Primary spontaneous pneumothorax Code(s): J93.9 - Pneumothorax, unspecified Status: Acute (2) MARC (obstructive sleep apnea): Code(s): G47.33 - Obstructive sleep apnea (adult) (pediatric) Status: Acute (3) Chronic respiratory failure: Qualifiers: Respiratory failure complication: hypoxia Qualified Code(s): J96.11 - Chronic respiratory failure with hypoxia Code(s): J96.10 - Chronic respiratory failure, unspecified whether with hypoxia or hypercapnia Status: Acute (4) COPD (chronic obstructive pulmonary disease): Qualifiers: COPD type: unspecified COPD Qualified Code(s): J44.9 - Chronic obstructive pulmonary disease, unspecified Code(s): J44.9 - Chronic obstructive pulmonary disease, unspecified Status: Acute (5) Closed rib fracture: Code(s): S22.39XA - Fracture of one rib, unspecified side, initial encounter for closed fracture Status: Acute (6) GERD (gastroesophageal reflux disease): Qualifiers: Esophagitis presence: without esophagitis Qualified Code(s): K21.9 - Gastro-esophageal reflux disease without esophagitis Code(s): K21.9 - Gastro-esophageal reflux disease without esophagitis Status: Acute (7) Hypothyroidism: Qualifiers: Hypothyroidism type: acquired Qualified Code(s): E03.9 - Hypothyroidism, unspecified Code(s): E03.9 - Hypothyroidism, unspecified Status: Acute (8) Hyperlipidemia: Qualifiers: Hyperlipidemia type: elevated lipoprotein(a) Qualified Code(s): E78.41 - Elevated Lipoprotein(a) Code(s): E78.5 - Hyperlipidemia, unspecified Status: Acute (9) Afib: Qualifiers: Atrial fibrillation type: unspecified Qualified Code(s): I48.91 - Unspecified atrial fibrillation Code(s): I48.91 - Unspecified atrial fibrillation Status: Acute (10) CHF (congestive heart failure): Qualifiers: Heart failure type: unspecified Heart failure chronicity: unspecified Qualified Code(s): I50.9 - Heart failure, unspecified Code(s): I50.9 - Heart failure, unspecified Status: Acute (11) Hypertension: Qualifiers: Hypertension type: primary hypertension Qualified Code(s): I10 - Essential (primary) hypertension Code(s): I10 - Essential (primary) hypertension Status: Acute Plan This is an 88-year-old female presented to the ER after ground level fall. She was getting something out of a cabinet when she lost her balance and fell backwards hitting a chair. She had pain in her right back. She then developed shortness of breath. She came to the ER to be evaluated. She denies head trauma loss of consciousness. She has been ambulatory since the incident. Patient is supposed to be on anticoagulation for atrial fibrillation but ran out of her Eliquis 4 days ago. 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 s/p chest tube removed on 03/29/24 continue monitor COPD acute on chronic chronic hypoxic respiratory failure on home oxygen with acute exacerbation 03/29/2024. IV Lasix received overnight. CTA Negative for PE or pneumonia. on 5 liters oxygen continue bronchodilators monitor Pulmonology on board Diastolic heart failure with exacerbation. Echocardiogram showed EF of 60-65%, mild pulmonary hypertension, diastolic dysfunction is indeterminate CXR today showed bilateral pleural effusion and pulm edema Start Lasix 40mg bid IV monitor Acute on chronic respiratory failure Patient need 1-2 L oxygen and home mostly from CHF exacerbation now with CXR showed pleural effusion and pulm edema Continue lasix and bronchodilators as above Suspecting MARC, Apnea link done last night continue Apnea link tonight per Pulmonology Atrial fibrillation on amiodarone and metoprolol And warfarin 3 mg daily INR in therapeutic range Hyponatremia, resolving Likely secondary to poor oral intake and IV Lasix Provide sodium chloride 1 g b.i.d. p.o. 04/02 Increase sodium chloride to 1 g t.i.d. p.o. 04/05 Na 133 Hypothyroidism On Synthroid 75 mcg daily p.o. Hypertension Amlodipine 5 mg daily p.o. Blood pressure is controlled Hyperlipidemia On Lipitor 40 mg daily p.o. GERD Varicose vein Osteoarthritis 88-year-old female presented with a shortness of breath is found to have acute on chronic respiratory failure secondary to multiple factors with exacerbation of COPD, congestive heart failure obesity with hypoventilation, patient is seen by convolute tube winder patient been treated with Solu-Medrolronaked and convolute tube winder as started the patient on non invensive ventilator and titrating, patient with persisting upper respiratory symptoms for over 20 days to further evaluate COVID test was repeated and patient s positive, patient is found to have COVID, her convolute tube winder does not recommend any treatment, patient clinical symptoms are persisting and remains on high oxygen requirement, patient is sitting in the bed, stats feels better not as short of breath as yesterday, patient is seen by convolute tube winder and further recommendation to follow. DVT prophylaxis currently on warfarin INR. stated feeling better and compared to yesterday not a short of breath, patient requesting more aggressive physical therapy, will discuss with the PT department for further recommendation, patient was seen by her convolute tube winder recommended to stop BiPAP and started AVAPS with sleep and as needed, and nasal cannula during day, convolute tube winder does not recommend starting any medication for COVID, today patient is sitting in the bed eating her lunch, patient is waiting for noninvansive ventilator to be delivered before discharging. Code status full code Awaiting improvement in resp failure Subjective Date/time seen: 04/20/24 14:50 Interval history: This is to certify patient remains in the hospital for more than 20 days for exacerbation of COPD and CHF with acute on chronic respiratory failure. 88-year-old female presented with a shortness of breath is found to have acute on chronic respiratory failure secondary to multiple factors with exacerbation of COPD, congestive heart failure obesity with hypoventilation, patient is seen by convolute tube winder patient been treated with Solu-Medrolronaked and convolute tube winder as started the patient on non invensive ventilator and titrating, patient with persisting upper respiratory symptoms for over 20 days to further evaluate COVID test was repeated and patient s positive, patient is found to have COVID, her convolute tube winder does not recommend any treatment, patient clinical symptoms are persisting and remains on high oxygen requirement, stated feeling better and compared to yesterday not a short of breath, patient requesting more aggressive physical therapy, will discuss with the PT department for further recommendation, patient was seen by her convolute tube winder recommended to stop BiPAP and started AVAPS with sleep and as needed, and nasal cannula during day, convolute tube winder does not recommend starting any medication for COVID, today patient is sitting in the bed eating her lunch, patient is waiting for noninvansive ventilator to be delivered before discharging. Review of Systems Review of Systems: - CONSTITUTIONAL: Denies weight loss, fever and chills. - HEENT: Denies changes in vision and hearing - RESPIRATORY: Reports SOB and denies cough. - CV: Denies palpitations and reports CP. - GI: Denies abdominal pain, nausea, vomiting and diarrhea. - : Denies dysuria and urinary frequency. - MSK: Denies myalgia and joint pain. - SKIN: Denies rash and pruritus. - NEUROLOGICAL: Denies headache and syncope. - PSYCHIATRIC: Denies recent changes in mood. Denies anxiety and depression. Exam Narrative: Elderly frail Patient is comfortable, NAD HEENT: eyes are clear and none icteric LUNGS: Bilateral poor air entry with rhonchi and wheezing. HEART: RR S1S2 ABD: BS+, Soft and nontender Lower extremities: no edema SKIN: nonjaundiced Neuro: grossly intact. Objective Data Vital Signs Vital Signs: Vital Signs - 24 hr 04/19/24 16:00 04/19/24 16:00 04/19/24 16:00 Temperature 36.7 C Pulse Rate 103 H 104 H Respiratory Rate 20 Blood Pressure 107/60 Pulse Oximetry 96 96 Oxygen Delivery High Flow Therapy with Na Oxygen Flow Rate 35 Fraction of Inspired Oxygen 39 04/19/24 16:30 04/19/24 16:38 04/19/24 18:00 Temperature Pulse Rate 97 106 H 108 H Respiratory Rate 20 20 Blood Pressure Pulse Oximetry Oxygen Delivery Oxygen Flow Rate Fraction of Inspired Oxygen 04/19/24 20:00 04/19/24 20:00 04/19/24 20:12 Temperature 36.8 C Pulse Rate 107 H 113 H Respiratory Rate 20 Blood Pressure 105/77 Pulse Oximetry 90 95 Oxygen Delivery High Flow Therapy with Na Oxygen Flow Rate 35 Fraction of Inspired Oxygen 35 04/19/24 20:42 04/19/24 22:00 04/19/24 22:08 Temperature Pulse Rate 106 H 106 H Respiratory Rate Blood Pressure Pulse Oximetry 92 Oxygen Delivery High Flow Therapy with Na Oxygen Flow Rate 35 Fraction of Inspired Oxygen 39 04/19/24 23:08 04/19/24 23:13 04/20/24 00:00 Temperature 37.0 C Pulse Rate 110 H 92 Respiratory Rate 23 H 17 Blood Pressure 100/66 Pulse Oximetry 95 97 98 Oxygen Delivery BiPAP BiPAP Oxygen Flow Rate Fraction of Inspired Oxygen 40 04/20/24 00:00 04/20/24 02:00 04/20/24 02:33 Temperature Pulse Rate 76 84 Respiratory Rate 23 H Blood Pressure Pulse Oximetry 100 Oxygen Delivery BiPAP Oxygen Flow Rate Fraction of Inspired Oxygen 04/20/24 04:00 04/20/24 04:00 04/20/24 04:47 Temperature Pulse Rate 78 Respiratory Rate Blood Pressure Pulse Oximetry 97 90 Oxygen Delivery BiPAP High Flow Therapy with Na Oxygen Flow Rate 9 Fraction of Inspired Oxygen 40 04/20/24 04:54 04/20/24 05:56 04/20/24 08:00 Temperature 37.0 C 36.3 C L Pulse Rate 102 H 87 89 Respiratory Rate 20 24 H Blood Pressure 103/65 131/74 Pulse Oximetry 95 98 Oxygen Delivery Oxygen Flow Rate Fraction of Inspired Oxygen 04/20/24 08:00 04/20/24 08:00 04/20/24 08:49 Temperature Pulse Rate 102 H Respiratory Rate Blood Pressure Pulse Oximetry 93 93 Oxygen Delivery High Flow Therapy with Na High Flow Therapy with Na Oxygen Flow Rate 9 9 Fraction of Inspired Oxygen 04/20/24 08:49 04/20/24 10:00 04/20/24 10:30 Temperature Pulse Rate 100 99 101 H Respiratory Rate 20 Blood Pressure Pulse Oximetry Oxygen Delivery Oxygen Flow Rate Fraction of Inspired Oxygen 04/20/24 10:31 04/20/24 12:00 04/20/24 12:00 Temperature 36.5 C Pulse Rate 101 H 112 H Respiratory Rate 24 H Blood Pressure 104/64 Pulse Oximetry 98 97 Oxygen Delivery High Flow Therapy with Na Oxygen Flow Rate 9 Fraction of Inspired Oxygen 04/20/24 12:00 04/20/24 12:00 04/20/24 14:00 Temperature Pulse Rate 104 H 99 Respiratory Rate Blood Pressure Pulse Oximetry 97 Oxygen Delivery High Flow Therapy with Na Oxygen Flow Rate 9 Fraction of Inspired Oxygen 04/20/24 14:35 Temperature Pulse Rate Respiratory Rate Blood Pressure Pulse Oximetry 97 Oxygen Delivery High Flow Therapy with Na Oxygen Flow Rate 8 Fraction of Inspired Oxygen Intake/Output Intake/Output: Intake & Output 04/17/24 04/18/24 04/19/24 04/20/24 23:59 23:59 23:59 23:59 Intake Total 1690 1460 2010 240 Output Total 8297 1251 5821 700 Balance -10 208 -640 -160 Meds/Results Medications: Active Medications Generic Name Dose Route Start Last Admin Trade Name Freq PRN Reason Stop Dose Admin Acetaminophen 1,000 mg 03/28/24 09:37 04/19/24 22:09 Acetaminophen 500 Mg Tablet PO 1,000 mg Q6H PRN Administration Mild Pain (1-3) or Fever Amiodarone HCl 200 mg 03/27/24 09:00 04/20/24 10:30 Amiodarone Hcl 200 Mg Tablet PO 200 mg DAILY MIGUEL Administration Ascorbic Acid 1,000 mg 03/27/24 09:00 04/20/24 10:31 Ascorbic Acid 500 Mg Tablet PO 1,000 mg QAM MIGUEL Administration Atorvastatin Calcium 40 mg 03/27/24 09:00 04/20/24 10:30 Atorvastatin 40 Mg Tablet PO 40 mg DAILY MIGUEL Administration Buspirone HCl 5 mg 03/27/24 09:00 04/20/24 10:31 Buspirone Hcl 5 Mg Tablet PO 5 mg BID MIGUEL Administration Calcium Carbonate 500 mg 03/27/24 09:00 04/20/24 10:30 Calcium Carbonate (Oscal) 500 Mg Tablet PO 500 mg QAM MIGUEL Administration Enoxaparin Sodium 100 mg 04/15/24 09:00 04/20/24 10:32 Enoxaparin 100 Mg/Ml Syringe SUB-Q 100 mg Q12H MIGUEL Administration Fluticasone/Umeclidinium/Vilanterol 1 puff 04/04/24 08:00 04/20/24 08:49 Fluticasone/Umeclidin/Vilanter 100-62.5-25 Mcg Ellipta INHALATION 1 puff DAILYRT MIGUEL Administration Furosemide 40 mg 04/10/24 17:00 04/20/24 10:32 Furosemide Inj 40 Mg/4 Ml Vial IV PUSH 40 mg BID MIGUEL Administration Levalbuterol HCl 0.63 mg 04/15/24 09:27 04/19/24 16:30 Levalbuterol Neb 1.25 Mg/3 Ml INHALATION 0.63 mg Q6HRT PRN Administration Shortness Of Breath Or Wheezing Levothyroxine Sodium 75 mcg 03/28/24 06:30 04/20/24 05:32 Levothyroxine Sodium 75 Mcg Tablet BY MOUTH 75 mcg DAILY@0630 MIGUEL Administration Lidocaine 1 patch 03/30/24 09:00 04/20/24 10:30 Lidocaine 5% Patch TRANSDERM 1 patch DAILY MIGUEL Administration Melatonin 5 mg 04/13/24 21:00 04/19/24 22:09 Melatonin 5 Mg Tablet PO 5 mg HS MIGUEL Administration Metoprolol Succinate 50 mg 03/27/24 09:00 04/20/24 10:31 Metoprolol Succinate Ext Rel 50 Mg Tabcr PO 50 mg QAM MIGUEL Administration Metoprolol Tartrate 12.5 mg 04/16/24 10:50 04/19/24 22:08 Metoprolol Tartrate 12.5 Mg Tablet PO 12.5 mg Q12HR PRN Administration Heart rate > 100 * Home Med * 300 mg 04/14/24 09:00 04/14/24 17:24 Dupilumab [Dupixent SUB-Q 05/14/24 08:59 300 mg Syringe] 300 Mg/2 Ml [id number] MIGUEL Administration Syringe Pantoprazole Sodium 40 mg 04/13/24 09:00 04/20/24 10:30 Pantoprazole 40 Mg Tablet PO 40 mg QAM MIGUEL Administration Prochlorperazine Edisylate 5 mg 04/15/24 00:39 04/15/24 00:52 Prochlorperazine Edisylate 10 Mg/2 Ml Vial IV PUSH 5 mg Q6H PRN Administration Nausea And Vomiting Senna/Docusate Sodium 2 tab 04/13/24 12:43 Senna/Docusate Sodium Tablet PO BID PRN Constipation Sodium Chloride 2 gm 04/07/24 17:00 04/20/24 10:30 Sodium Chloride 1 Gm Tablet PO 2 gm BID MIGUEL Administration Radiology Results: ITS Impressions Chest CT 03/26/24 21:50 IMPRESSION: Redemonstration of a right-sided pneumothorax, approximately 15-20% in size with a right posterior medial fifth rib fracture. Head CT 03/26/24 23:09 Impression: No acute intracranial hemorrhage or suspicious mass effect. Cervical Spine CT 03/26/24 23:13 Impression: Straightening and slight reversal of the normal curvature of the cervical spine, likely muscular in origin. Significant degenerative disease, without acute fracture. Chest CTA 03/29/24 08:00 IMPRESSION: 1. Right chest tube in expected position with small right pleural effusion but no pneumothorax. 2. Mild emphysema with mild dependent atelectasis in both lungs. 3. Cardiomegaly with biatrial enlargement. 4. Enlargement of the central pulmonary arteries consistent with pulmonary arterial hypertension. 5. Recent-appearing nondisplaced fractures of the posterior right fifth and sixth ribs. Venous Doppler Study 04/12/24 14:56 IMPRESSION: 1. No deep venous thrombosis within the bilateral lower extremities. Chest X-Ray 04/20/24 07:42 Impression: Small bilateral pleural effusions with mild bibasilar pulmonary edema. Labs Labs: Laboratory Results - last 24 hr 04/20/24 04:10 WBC 4.7 RBC 3.62 L Hgb 10.5 L Hct 33.4 L MCV 92.3 MCH 29.0 MCHC 31.4 L RDW 15.1 H Plt Count 203 MPV 10.8 H Sodium 134 L Potassium 3.1 L Chloride 95 L Carbon Dioxide 32 H Anion Gap 7 BUN 15 Creatinine 0.55 L Estim Creat Clear Calc 56 Estimated GFR > 60 Glucose 89 Calcium 7.5 L Magnesium 1.8
[2024-04-20] MEDS: LORATADINE 5 MG TABLET PO (18:43)
[2024-04-20] MEDS: MELATONIN 5 MG TABLET PO (21:50)
[2024-04-20] MEDS: ACETAMINOPHEN 500 MG TABLET 1000 MG PO (21:50)
[2024-04-21] VITALS (18 sets, daily range): BP systolic 94–117; BP diastolic 60–78; PULSE 76–112; RESP 16–20; TEMP 36.4–36.8; O2SAT 94–97
[2024-04-21 05:03] LABS: Hematocrit 33.3 % (37.0-47.0); Hemoglobin 10.5 g/dL (12.0-15.0); Mean Corpuscular HGB Conc 31.5 g/dl (32-36); Mean Corpuscular Hemoglobin 28.9 pg (26-34); Mean Corpuscular Volume 91.7 fl (80-100); Mean Platelet Volume 11.4 fl (7.4-10.4); Platelet Count Result 195 k/mm3 (150-375); Red Blood Count 3.63 M/mm3 (4.2-5.4); Red Cell Distribution Width 15.1 % (11.5-14.5)
[2024-04-21 05:17] LABS: Anion Gap 8 mmol/L (4-12); Blood Urea Nitrogen 14 mg/dL (7-17); Calcium 7.7 mg/dL (8.4-10.2); Carbon Dioxide 33 mmol/L (22-30); Chloride 94 mmol/L (98-107); Estimated CRCL calculation 68 ml/min; Estimated Glomerular Filt Rate > 60; Glucose 86 mg/dL (65-110); Magnesium 1.5 mg/dL (1.6-2.3); Potassium 3.1 mmol/L (3.4-5.0); Sodium 135 mmol/L (137-145)
[2024-04-21] MEDS: LEVOTHYROXINE SODIUM 75 MCG TABLET BY MOUTH (06:09)
[2024-04-21] MEDS: METOPROLOL TARTRATE 12.5 MG TABLET PO (06:09)
[2024-04-21] MEDS: FLUTICASONE/UMECLIDIN/VILANTER 100-62.5-25 MCG ELLIPTA 1 PUFF INHALATION (07:59)
[2024-04-21] MEDS: SODIUM CHLORIDE 1 GM TABLET 2 GM PO ×2 (09:07→16:48)
[2024-04-21] MEDS: METOPROLOL SUCCINATE EXT REL 50 MG TABCR PO (09:07)
[2024-04-21] MEDS: CALCIUM CARBONATE (OSCAL) 500 MG TABLET PO (09:08)
[2024-04-21] MEDS: AMIODARONE HCL 200 MG TABLET PO (09:08)
[2024-04-21] MEDS: busPIRone HCL 5 MG TABLET PO ×2 (09:08→16:48)
[2024-04-21] MEDS: ASCORBIC ACID 500 MG TABLET 1000 MG PO (09:08)
[2024-04-21] MEDS: PANTOPRAZOLE 40 MG TABLET PO (09:09)
[2024-04-21] MEDS: ATORVASTATIN 40 MG TABLET PO (09:09)
[2024-04-21] MEDS: LORATADINE 5 MG TABLET PO (09:09)
[2024-04-21] MEDS: ENOXAPARIN 100 MG/ML SYRINGE SUB-Q ×2 (09:09→21:49)
[2024-04-21] MEDS: FUROSEMIDE INJ 40 MG/4 ML VIAL IV PUSH ×2 (09:09→16:48)
[2024-04-21] MEDS: LIDOCAINE 5% PATCH 1 PATCH TRANSDERM (09:10)
--- NOTE | 2024-04-21 09:13 | P.PNPL_ITS ---
Progress Note: A&P Assessment and Plan (1) COPD (chronic obstructive pulmonary disease): Qualifiers: COPD type: unspecified COPD Qualified Code(s): J44.9 - Chronic obstructive pulmonary disease, unspecified Code(s): J44.9 - Chronic obstructive pulmonary disease, unspecified Status: Acute (2) Hypoxemia: Code(s): R09.02 - Hypoxemia Status: Acute (3) Chronic respiratory failure: Qualifiers: Respiratory failure complication: hypoxia Qualified Code(s): J96.11 - Chronic respiratory failure with hypoxia Code(s): J96.10 - Chronic respiratory failure, unspecified whether with hypoxia or hypercapnia Status: Acute Assessment and Plan: This 88-year-old female patient with a history of mild COPD, chronically on maintenance bronchodilators, and chronic hypoxemia managed with supplemental oxygen, has untreated sleep apnea and recent atrial fibrillation for which she is receiving treatment, including anticoagulants. She presented with shortness of breath related to a pneumothorax. Despite the resolution of the pneumothorax, she continued to experience shortness of breath related to congestive heart failure. On physical examination, the patient presented with bilateral crackles, jugular venous distension (JVD), and lower extremity edema despite diuresis, indicating an overall positive fluid balance. The patient was managed with auto CPAP and supplemental oxygen at night while in the medical-surgical back due to persistent nocturnal hypoxemia on oxygen alone. Following a worsening of her respiratory status, she was transferred to the intensive care unit and switched to BiPAP at settings of 12/8, along with supplemental oxygen. Treatment for her atrial fibrillation included full-dose Lovenox and antibiotics. A chest X-ray review showed bilateral pleural effusions and some pulmonary congestion, but no new infiltrates to suggest a lower respiratory tract infection. After diuresis, her cardiorespiratory status improved, and she was transferred back to a regular room. Over the past week, the patient's respiratory status has remained essentially unchanged. The chest X-ray still shows pulmonary congestion and a small pleural effusion, although she has shown clinical improvement. She is using BiPAP support and supplemental oxygen and was switched to BiPAP AVAPS over the weekend. She slept well on AVAPS last night. Her grandson, who has been assisting with decision-making, is currently out of town. She continues to receive full-dose Lovenox, presumably for atrial fibrillation. The plans of the hospitalist team regarding her cardiac issues are unclear. From a respiratory standpoint, her clinical condition is stable, with no significant improvement in gas exchange. The latest chest X-ray continues to show bilateral pleural effusions. On physical examination, there are no crackles. The plan is to await approval for a home ventilator for her use upon discharge and to attempt to reduce the oxygen flow. (4) Acute on chronic hypoxic respiratory failure: Code(s): J96.21 - Acute and chronic respiratory failure with hypoxia Status: Acute (5) MARC (obstructive sleep apnea): Code(s): G47.33 - Obstructive sleep apnea (adult) (pediatric) Status: Acute (6) CHF (congestive heart failure): Qualifiers: Heart failure type: unspecified Heart failure chronicity: unspecified Qualified Code(s): I50.9 - Heart failure, unspecified Code(s): I50.9 - Heart failure, unspecified Status: Acute (7) Afib: Qualifiers: Atrial fibrillation type: unspecified Qualified Code(s): I48.91 - Unsp ecified atrial fibrillation Code(s): I48.91 - Unspecified atrial fibrillation Status: Acute (8) COVID-19: Code(s): U07.1 - COVID-19 Status: Acute Subjective Date/time seen: 04/21/24 09:13 Interval history: No new respiratory complaints. Used BiPAP support last night. She still on high-flow nasal cannula using 9 liters/meter. Shortness of breath unchanged. Review of Systems Review of Systems: All systems reviewed & are unremarkable except as noted in HPI and below (HPI and below) Exam Narrative: GENERAL APPEARANCE: Well developed, well nourished, alert and cooperative, and appears to be in mild respiratory distress while on supplemental oxygen SKIN: Inspection of the skin reveals no rashes, ulcerations or petechiae. HEENT: Sclerae anicteric and conjunctivae pink and moist. Extraocular movements were intact and pupils were equal, round. Dry oral mucosa. NECK: Supple. There was no thyroid enlargement, and no tenderness, or masses were felt. LUNGS: Crackles bilaterally, less than before, no wheezing CARDIAC: There was irregular rate and rhythm without any murmurs, gallops, rubs. Tachycardic ABDOMEN: Soft and nontender with normal bowel sounds. There was no organomegaly. LYMPH NODES: No lymphadenopathy was appreciated in the neck, axillae or groin. EXTREMITIES: No cyanosis, clubbing. Trace pedal edema. NEUROLOGIC: Alert. Normal affect. Objective Data Vital Signs Vital Signs: Vital Signs - 24 hr 04/20/24 10:00 04/20/24 10:30 04/20/24 10:31 Temperature Pulse Rate 99 101 H 101 H Respiratory Rate Blood Pressure Pulse Oximetry Oxygen Delivery Oxygen Flow Rate Fraction of Inspired Oxygen 04/20/24 12:00 04/20/24 12:00 04/20/24 12:00 Temperature 36.5 C Pulse Rate 112 H 104 H Respiratory Rate 24 H Blood Pressure 104/64 Pulse Oximetry 98 97 Oxygen Delivery High Flow Therapy with Na Oxygen Flow Rate 9 Fraction of Inspired Oxygen 04/20/24 12:00 04/20/24 14:00 04/20/24 14:30 Temperature Pulse Rate 99 Respiratory Rate Blood Pressure Pulse Oximetry 97 Oxygen Delivery High Flow Therapy with Na High Flow Therapy with Na Oxygen Flow Rate 9 8 Fraction of Inspired Oxygen 04/20/24 14:35 04/20/24 16:00 04/20/24 16:00 Temperature 36.6 C Pulse Rate 101 H 108 H Respiratory Rate 24 H Blood Pressure 106/63 Pulse Oximetry 97 97 Oxygen Delivery High Flow Therapy with Na Oxygen Flow Rate 8 Fraction of Inspired Oxygen 04/20/24 16:00 04/20/24 18:00 04/20/24 19:43 Temperature Pulse Rate 100 Respiratory Rate Blood Pressure Pulse Oximetry 97 97 Oxygen Delivery High Flow Therapy with Na High Flow Therapy with Na Oxygen Flow Rate 7 7 Fraction of Inspired Oxygen 04/20/24 19:53 04/20/24 20:00 04/20/24 22:36 Temperature 36.5 C Pulse Rate 108 H 102 H 88 Respiratory Rate 22 H Blood Pressure 133/76 Pulse Oximetry 95 Oxygen Delivery Oxygen Flow Rate Fraction of Inspired Oxygen 04/20/24 23:15 04/20/24 23:45 04/21/24 00:00 Temperature 36.4 C Pulse Rate 100 105 H Respiratory Rate 21 H 24 H Blood Pressure 140/60 Pulse Oximetry 93 95 97 Oxygen Delivery BiPAP BiPAP Oxygen Flow Rate Fraction of Inspired Oxygen 40 04/21/24 00:00 04/21/24 02:09 04/21/24 02:45 Temperature Pulse Rate 95 79 76 Respiratory Rate 16 Blood Pressure Pulse Oximetry 96 Oxygen Delivery BiPAP Oxygen Flow Rate Fraction of Inspired Oxygen 03/04/25 04:00 04/21/24 04:00 04/21/24 04:04 Temperature 36.4 C Pulse Rate 79 82 Respiratory Rate 16 Blood Pressure 94/60 L Pulse Oximetry 96 97 Oxygen Delivery BiPAP Oxygen Flow Rate Fraction of Inspired Oxygen 35 04/21/24 05:57 04/21/24 06:09 04/21/24 08:02 Temperature Pulse Rate 105 H 109 H Respiratory Rate Blood Pressure Pulse Oximetry 95 Oxygen Delivery High Flow Therapy with Na Oxygen Flow Rate 8 Fraction of Inspired Oxygen 04/21/24 08:08 04/21/24 09:07 04/21/24 09:08 Temperature 36.4 C L Pulse Rate 94 90 90 Respiratory Rate 20 Blood Pressure 115/75 Pulse Oximetry 96 Oxygen Delivery Oxygen Flow Rate Fraction of Inspired Oxygen Intake/Output Intake/Output: Intake & Output 04/18/24 04/19/24 04/20/24 04/21/24 23:59 23:59 23:59 23:59 Intake Total 1460 2010 1320 800 Output Total 1252 2650 1902 300 Balance 886 -105 -507 268 Meds/Results Medications: Active Medications Generic Name Dose Route Start Last Admin Trade Name Freq PRN Reason Stop Dose Admin Acetaminophen 1,000 mg 03/28/24 09:37 04/20/24 21:50 Acetaminophen 500 Mg Tablet PO 1,000 mg Q6H PRN Administration Mild Pain (1-3) or Fever Amiodarone HCl 200 mg 03/27/24 09:00 04/21/24 09:08 Amiodarone Hcl 200 Mg Tablet PO 200 mg DAILY MIGUEL Administration Ascorbic Acid 1,000 mg 03/27/24 09:00 04/21/24 09:08 Ascorbic Acid 500 Mg Tablet PO 1,000 mg QAM MIGUEL Administration Atorvastatin Calcium 40 mg 03/27/24 09:00 04/21/24 09:09 Atorvastatin 40 Mg Tablet PO 40 mg DAILY MIGUEL Administration Buspirone HCl 5 mg 03/27/24 09:00 04/21/24 09:08 Buspirone Hcl 5 Mg Tablet PO 5 mg BID MIGUEL Administration Calcium Carbonate 500 mg 03/27/24 09:00 04/21/24 09:08 Calcium Carbonate (Oscal) 500 Mg Tablet PO 500 mg QAM MIGUEL Administration Enoxaparin Sodium 100 mg 04/15/24 09:00 04/21/24 09:09 Enoxaparin 100 Mg/Ml Syringe SUB-Q 100 mg Q12H MIGUEL Administration Fluticasone/Umeclidinium/Vilanterol 1 puff 04/04/24 08:00 04/21/24 07:59 Fluticasone/Umeclidin/Vilanter 100-62.5-25 Mcg Ellipta INHALATION 1 puff DAILYRT MIGUEL Administration Furosemide 40 mg 04/10/24 17:00 04/21/24 09:09 Furosemide Inj 40 Mg/4 Ml Vial IV PUSH 40 mg BID MIGUEL Administration Levalbuterol HCl 0.63 mg 04/15/24 09:27 04/19/24 16:30 Levalbuterol Neb 1.25 Mg/3 Ml INHALATION 0.63 mg Q6HRT PRN Administration Shortness Of Breath Or Wheezing Levothyroxine Sodium 75 mcg 03/28/24 06:30 04/21/24 06:09 Levothyroxine Sodium 75 Mcg Tablet BY MOUTH 75 mcg DAILY@0630 MIGUEL Administration Lidocaine 1 patch 03/30/24 09:00 04/21/24 09:10 Lidocaine 5% Patch TRANSDERM 1 patch DAILY MIGUEL Administration Loratadine 5 mg 04/20/24 18:30 04/21/24 09:09 Loratadine 5 Mg Tablet PO 5 mg QAM MIGUEL Administration Melatonin 5 mg 04/13/24 21:00 04/20/24 21:50 Melatonin 5 Mg Tablet PO 5 mg HS MIGUEL Administration Metoprolol Succinate 50 mg 03/27/24 09:00 04/21/24 09:07 Metoprolol Succinate Ext Rel 50 Mg Tabcr PO 50 mg QAM MIGUEL Administration Metoprolol Tartrate 12.5 mg 04/16/24 10:50 04/21/24 06:09 Metoprolol Tartrate 12.5 Mg Tablet PO 12.5 mg Q12HR PRN Administration Heart rate > 100 * Home Med * 300 mg 04/14/24 09:00 04/14/24 17:24 Dupilumab [Dupixent SUB-Q 05/14/24 08:59 300 mg Syringe] 300 Mg/2 Ml [id number] MIGUEL Administration Syringe Pantoprazole Sodium 40 mg 04/13/24 09:00 04/21/24 09:09 Pantoprazole 40 Mg Tablet PO 40 mg QAM MIGUEL Administration Prochlorperazine Edisylate 5 mg 04/15/24 00:39 04/15/24 00:52 Prochlorperazine Edisylate 10 Mg/2 Ml Vial IV PUSH 5 mg Q6H PRN Administration Nausea And Vomiting Senna/Docusate Sodium 2 tab 04/13/24 12:43 Senna/Docusate Sodium Tablet PO BID PRN Constipation Sodium Chloride 2 gm 04/07/24 17:00 04/21/24 09:07 Sodium Chloride 1 Gm Tablet PO 2 gm BID MIGUEL Administration Radiology Results: ITS Impressions Chest CT 03/26/24 21:50 IMPRESSION: Redemonstration of a right-sided pneumothorax, approximately 15-20% in size with a right posterior medial fifth rib fracture. Head CT 03/26/24 23:09 Impression: No acute intracranial hemorrhage or suspicious mass effect. Cervical Spine CT 03/26/24 23:13 Impression: Straightening and slight reversal of the normal curvature of the cervical spine, likely muscular in origin. Significant degenerative disease, without acute fracture. Chest CTA 03/29/24 08:00 IMPRESSION: 1. Right chest tube in expected position with small right pleural effusion but no pneumothorax. 2. Mild emphysema with mild dependent atelectasis in both lungs. 3. Cardiomegaly with biatrial enlargement. 4. Enlargement of the central pulmonary arteries consistent with pulmonary arterial hypertension. 5. Recent-appearing nondisplaced fractures of the posterior right fifth and sixth ribs. Venous Doppler Study 04/12/24 14:56 IMPRESSION: 1. No deep venous thrombosis within the bilateral lower extremities. Chest X-Ray 04/20/24 07:42 Impression: Small bilateral pleural effusions with mild bibasilar pulmonary edema. Labs Labs: Laboratory Results - last 24 hr 04/21/24 04:18 WBC 5.0 RBC 3.63 L Hgb 10.5 L Hct 33.3 L MCV 91.7 MCH 28.9 MCHC 31.5 L RDW 15.1 H Plt Count 195 MPV 11.4 H Sodium 135 L Potassium 3.1 L Chloride 94 L Carbon Dioxide 33 H Anion Gap 8 BUN 14 Creatinine 0.55 L Estim Creat Clear Calc 68 Estimated GFR > 60 Glucose 86 Calcium 7.7 L Magnesium 1.5 L
[2024-04-21] MEDS: POTASSIUM CHLORIDE 20 MEQ PACKET (FOR LIQUID) 40 MEQ PO (13:26)
[2024-04-21] MEDS: MAGNESIUM SULF 2 GM/WATER 50ML 2 GM/50 ML BAG IVPB (13:26)
--- NOTE | 2024-04-21 16:08 | PC.NURSE ---
PT transferred to room 320. Report previously given. NC at 3L oxygen.
--- NOTE | 2024-04-21 16:23 | PC.NURSE ---
This patient, Kanchan Abbott, was received from [facility] on 04/21/24 at 1623. Patient/family oriented to unit policies and routines
--- NOTE | 2024-04-21 17:45 | P.PNIM_ITS ---
Progress Note: A&P Assessment and Plan (1) Pneumothorax: Qualifiers: Pneumothorax type: spontaneous, primary Qualified Code(s): J93.11 - Primary spontaneous pneumothorax Code(s): J93.9 - Pneumothorax, unspecified Status: Acute (2) MARC (obstructive sleep apnea): Code(s): G47.33 - Obstructive sleep apnea (adult) (pediatric) Status: Acute (3) Chronic respiratory failure: Qualifiers: Respiratory failure complication: hypoxia Qualified Code(s): J96.11 - Chronic respiratory failure with hypoxia Code(s): J96.10 - Chronic respiratory failure, unspecified whether with hypoxia or hypercapnia Status: Acute (4) COPD (chronic obstructive pulmonary disease): Qualifiers: COPD type: unspecified COPD Qualified Code(s): J44.9 - Chronic obstructive pulmonary disease, unspecified Code(s): J44.9 - Chronic obstructive pulmonary disease, unspecified Status: Acute (5) Closed rib fracture: Code(s): S22.39XA - Fracture of one rib, unspecified side, initial encounter for closed fracture Status: Acute (6) GERD (gastroesophageal reflux disease): Qualifiers: Esophagitis presence: without esophagitis Qualified Code(s): K21.9 - Gastro-esophageal reflux disease without esophagitis Code(s): K21.9 - Gastro-esophageal reflux disease without esophagitis Status: Acute (7) Hypothyroidism: Qualifiers: Hypothyroidism type: acquired Qualified Code(s): E03.9 - Hypothyroidism, unspecified Code(s): E03.9 - Hypothyroidism, unspecified Status: Acute (8) Hyperlipidemia: Qualifiers: Hyperlipidemia type: elevated lipoprotein(a) Qualified Code(s): E78.41 - Elevated Lipoprotein(a) Code(s): E78.5 - Hyperlipidemia, unspecified Status: Acute (9) Afib: Qualifiers: Atrial fibrillation type: unspecified Qualified Code(s): I48.91 - Unspecified atrial fibrillation Code(s): I48.91 - Unspecified atrial fibrillation Status: Acute (10) CHF (congestive heart failure): Qualifiers: Heart failure type: unspecified Heart failure chronicity: unspecified Qualified Code(s): I50.9 - Heart failure, unspecified Code(s): I50.9 - Heart failure, unspecified Status: Acute (11) Hypertension: Qualifiers: Hypertension type: primary hypertension Qualified Code(s): I10 - Essential (primary) hypertension Code(s): I10 - Essential (primary) hypertension Status: Acute Plan This is an 88-year-old female presented to the ER after ground level fall. She was getting something out of a cabinet when she lost her balance and fell backwards hitting a chair. She had pain in her right back. She then developed shortness of breath. She came to the ER to be evaluated. She denies head trauma loss of consciousness. She has been ambulatory since the incident. Patient is supposed to be on anticoagulation for atrial fibrillation but ran out of her Eliquis 4 days ago. She has been prescribed Coumadin by her java programmer but has not started taking Acute pneumothorax From Fall s/p needle decompression CT chest performed which showed right-sided pneumothorax with subcutaneous air along the right anterolateral chest wall and posterior medial chest wall. s/p chest tube removed on 03/29/24 continue monitor COPD acute on chronic chronic hypoxic respiratory failure on home oxygen with acute exacerbation 03/29/2024. IV Lasix received overnight. CTA Negative for PE or pneumonia. on 5 liters oxygen continue bronchodilators monitor Pulmonology on board Diastolic heart failure with exacerbation. Echocardiogram showed EF of 60-65%, mild pulmonary hypertension, diastolic dysfunction is indeterminate CXR today showed bilateral pleural effusion and pulm edema Start Lasix 40mg bid IV monitor Acute on chronic respiratory failure Patient need 1-2 L oxygen and home mostly from CHF exacerbation now with CXR showed pleural effusion and pulm edema Continue lasix and bronchodilators as above Suspecting MARC, Apnea link done last night continue Apnea link tonight per Pulmonology Atrial fibrillation on amiodarone and metoprolol And warfarin 3 mg daily INR in therapeutic range Hyponatremia, resolving Likely secondary to poor oral intake and IV Lasix Provide sodium chloride 1 g b.i.d. p.o. 04/02 Increase sodium chloride to 1 g t.i.d. p.o. 04/05 Na 133 Hypothyroidism On Synthroid 75 mcg daily p.o. Hypertension Amlodipine 5 mg daily p.o. Blood pressure is controlled Hyperlipidemia On Lipitor 40 mg daily p.o. GERD Varicose vein Osteoarthritis 88-year-old female presented with a shortness of breath is found to have acute on chronic respiratory failure secondary to multiple factors with exacerbation of COPD, congestive heart failure obesity with hypoventilation, patient is seen by editing computer publisher patient been treated with Solu-Medrol diblakeed and editing computer publisher as started the patient on non invensive ventilator and titrating, patient with persisting upper respiratory symptoms for over 20 days to further evaluate COVID test was repeated and patient s positive, patient is found to have COVID, her editing computer publisher does not recommend any treatment, patient clinical symptoms are persisting and remains on high oxygen requirement, patient is sitting in the bed, stats feels better not as short of breath as yesterday, patient is seen by editing computer publisher and further recommendation to follow. DVT prophylaxis currently on warfarin INR. stated feeling better and compared to yesterday not a short of breath, patient requesting more aggressive physical therapy, will discuss with the PT department for further recommendation, patient was seen by her editing computer publisher recommended to stop BiPAP and started AVAPS with sleep and as needed, and nasal cannula during day, editing computer publisher does not recommend starting any medication for COVID, patient is transferred out of IMU to [facility], today patient is sitting in the bed, patient is waiting for noninvansive ventilator to be delivered before discharging spoke with respiratory and order is in placed waiting for the response. Code status full code Awaiting improvement in resp failure Subjective Date/time seen: 04/21/24 17:45 Interval history: This is to certify patient remains in the hospital for more than 20 days for exacerbation of COPD and CHF with acute on chronic respiratory failure. 88-year-old female presented with a shortness of breath is found to have acute on chronic respiratory failure secondary to multiple factors with exacerbation of COPD, congestive heart failure obesity with hypoventilation, patient is seen by editing computer publisher patient been treated with Solu-Medrolronaked and editing computer publisher as started the patient on non invensive ventilator and titrating, patient with persisting upper respiratory symptoms for over 20 days to further evaluate COVID test was repeated and patient s positive, patient is found to have COVID, her editing computer publisher does not recommend any treatment, patient clinical symptoms are persisting and remains on high oxygen requirement, stated feeling better and compared to yesterday not a short of breath, patient requesting more aggressive physical therapy, will discuss with the PT department for further recommendation, patient was seen by her editing computer publisher recommended to stop BiPAP and started AVAPS with sleep and as needed, and nasal cannula during day, editing computer publisher does not recommend starting any medication for COVID, patient is transferred out of IMU to [facility], today patient is sitting in the bed, patient is waiting for noninvansive ventilator to be delivered before discharging spoke with respiratory and order is in placed waiting for the response. Review of Systems Review of Systems: - CONSTITUTIONAL: Denies weight loss, fe rosas and chills. - HEENT: Denies changes in vision and he aring - RESPIRATORY: Reports SOB and denies c ough. - CV: Denies palpitations and reports CP . - GI: Denies abdominal pain, nausea, vom iting and diarrhea. - : Denies dysuria and urinary frequen cy. - MSK: Denies myalgia and joint pain. - SKIN: Denies rash and pruritus. - NEUROLOGICAL: Denies headache and sync ope. - PSYCHIATRIC: Denies recent changes in mood. Denies anxiety and depression. All systems reviewed & are unremarkable except as noted in HPI and below Exam Narrative: Elderly frail Patient is comfortable, NAD HEENT: eyes are clear and none icteric LUNGS: Bilateral poor air entry with rhonchi and wheezing. HEART: RR S1S2 ABD: BS+, Soft and nontender Lower extremities: no edema SKIN: nonjaundiced Neuro: grossly intact. Objective Data Vital Signs Vital Signs: Vital Signs - 24 hr 04/20/24 18:00 04/20/24 19:43 04/20/24 19:53 Temperature 36.5 C Pulse Rate 100 108 H Respiratory Rate 22 H Blood Pressure 133/76 Pulse Oximetry 97 95 Oxygen Delivery High Flow Therapy with Na Oxygen Flow Rate 7 Fraction of Inspired Oxygen 04/20/24 20:00 04/20/24 22:36 04/20/24 23:15 Temperature 36.4 C Pulse Rate 102 H 88 100 Respiratory Rate 21 H Blood Pressure 140/60 Pulse Oximetry 93 Oxygen Delivery Oxygen Flow Rate Fraction of Inspired Oxygen 04/20/24 23:45 04/21/24 00:00 04/21/24 00:00 Temperature Pulse Rate 105 H 95 Respiratory Rate 24 H Blood Pressure Pulse Oximetry 95 97 Oxygen Delivery BiPAP BiPAP Oxygen Flow Rate Fraction of Inspired Oxygen 40 04/21/24 02:09 04/21/24 02:45 04/21/24 04:00 Temperature Pulse Rate 79 76 Respiratory Rate 16 Blood Pressure Pulse Oximetry 96 96 Oxygen Delivery BiPAP BiPAP Oxygen Flow Rate Fraction of Inspired Oxygen 35 04/21/24 04:00 04/21/24 04:04 04/21/24 05:57 Temperature 36.4 C Pulse Rate 79 82 105 H Respiratory Rate 16 Blood Pressure 94/60 L Pulse Oximetry 97 Oxygen Delivery Oxygen Flow Rate Fraction of Inspired Oxygen 04/21/24 06:09 04/21/24 08:00 04/21/24 08:02 Temperature Pulse Rate 109 H Respiratory Rate Blood Pressure Pulse Oximetry 94 95 Oxygen Delivery High Flow Therapy with Na High Flow Therapy with Na Oxygen Flow Rate 5 8 Fraction of Inspired Oxygen 04/21/24 08:08 04/21/24 09:07 04/21/24 09:08 Temperature 36.4 C L Pulse Rate 94 90 90 Respiratory Rate 20 Blood Pressure 115/75 Pulse Oximetry 96 Oxygen Delivery Oxygen Flow Rate Fraction of Inspired Oxygen 04/21/24 10:00 04/21/24 12:00 04/21/24 12:00 Temperature 36.8 C Pulse Rate 103 H 102 H Respiratory Rate 20 Blood Pressure 107/67 Pulse Oximetry 94 95 Oxygen Delivery High Flow Therapy with Na Oxygen Flow Rate 3 Fraction of Inspired Oxygen 04/21/24 12:00 04/21/24 16:00 Temperature 36.6 C Pulse Rate 112 H 91 Respiratory Rate 20 Blood Pressure 117/72 Pulse Oximetry 97 Oxygen Delivery Oxygen Flow Rate Fraction of Inspired Oxygen Intake/Output Intake/Output: Intake & Output 04/18/24 04/19/24 04/20/24 04/21/24 23:59 23:59 23:59 23:59 Intake Total 1460 2010 1320 1660 Output Total 1252 2650 1902 300 Balance 208 -446 -386 1360 Meds/Results Medications: Active Medications Generic Name Dose Route Start Last Admin Trade Name Freq PRN Reason Stop Dose Admin Acetaminophen 1,000 mg 03/28/24 09:37 04/20/24 21:50 Acetaminophen 500 Mg Tablet PO 1,000 mg Q6H PRN Administration Mild Pain (1-3) or Fever Amiodarone HCl 200 mg 03/27/24 09:00 04/21/24 09:08 Amiodarone Hcl 200 Mg Tablet PO 200 mg DAILY MIGUEL Administration Ascorbic Acid 1,000 mg 03/27/24 09:00 03/04/25 09:08 Ascorbic Acid 500 Mg Tablet PO 1,000 mg QAM MIGUEL Administration Atorvastatin Calcium 40 mg 03/27/24 09:00 04/21/24 09:09 Atorvastatin 40 Mg Tablet PO 40 mg DAILY MIGUEL Administration Buspirone HCl 5 mg 03/27/24 09:00 04/21/24 16:48 Buspirone Hcl 5 Mg Tablet PO 5 mg BID MIGUEL Administration Calcium Carbonate 500 mg 03/27/24 09:00 04/21/24 09:08 Calcium Carbonate (Oscal) 500 Mg Tablet PO 500 mg QAM MIGUEL Administration Enoxaparin Sodium 100 mg 04/15/24 09:00 04/21/24 09:09 Enoxaparin 100 Mg/Ml Syringe SUB-Q 100 mg Q12H MIGUEL Administration Fluticasone/Umeclidinium/Vilanterol 1 puff 04/04/24 08:00 04/21/24 07:59 Fluticasone/Umeclidin/Vilanter 100-62.5-25 Mcg Ellipta INHALATION 1 puff DAILYRT MIGUEL Administration Furosemide 40 mg 04/10/24 17:00 04/21/24 16:48 Furosemide Inj 40 Mg/4 Ml Vial IV PUSH 40 mg BID MIGUEL Administration Levalbuterol HCl 0.63 mg 04/15/24 09:27 04/19/24 16:30 Levalbuterol Neb 1.25 Mg/3 Ml INHALATION 0.63 mg Q6HRT PRN Administration Shortness Of Breath Or Wheezing Levothyroxine Sodium 75 mcg 03/28/24 06:30 04/21/24 06:09 Levothyroxine Sodium 75 Mcg Tablet BY MOUTH 75 mcg DAILY@0630 MIGUEL Administration Lidocaine 1 patch 03/30/24 09:00 04/21/24 09:10 Lidocaine 5% Patch TRANSDERM 1 patch DAILY MIGUEL Administration Loratadine 5 mg 04/20/24 18:30 04/21/24 09:09 Loratadine 5 Mg Tablet PO 5 mg QAM MIGUEL Administration Magnesium Oxide 400 mg 04/22/24 09:00 Magnesium Oxide 400 Mg Tablet PO QAM [facility] Melatonin 5 mg 04/13/24 21:00 04/20/24 21:50 Melatonin 5 Mg Tablet PO 5 mg HS MIGUEL Administration Metoprolol Succinate 50 mg 03/27/24 09:00 04/21/24 09:07 Metoprolol Succinate Ext Rel 50 Mg Tabcr PO 50 mg QAM MIGUEL Administration Metoprolol Tartrate 12.5 mg 04/16/24 10:50 04/21/24 06:09 Metoprolol Tartrate 12.5 Mg Tablet PO 12.5 mg Q12HR PRN Administration Heart rate > 100 * Home Med * 300 mg 04/14/24 09:00 04/14/24 17:24 Dupilumab [Dupixent SUB-Q 05/14/24 08:59 300 mg Syringe] 300 Mg/2 Ml [id number] MIGUEL Administration Syringe Pantoprazole Sodium 40 mg 04/13/24 09:00 04/21/24 09:09 Pantoprazole 40 Mg Tablet PO 40 mg QAM MIGUEL Administration Prochlorperazine Edisylate 5 mg 04/15/24 00:39 04/15/24 00:52 Prochlorperazine Edisylate 10 Mg/2 Ml Vial IV PUSH 5 mg Q6H PRN Administration Nausea And Vomiting Senna/Docusate Sodium 2 tab 04/13/24 12:43 Senna/Docusate Sodium Tablet PO BID PRN Constipation Sodium Chloride 2 gm 04/07/24 17:00 04/21/24 16:48 Sodium Chloride 1 Gm Tablet PO 2 gm BID MIGUEL Administration Radiology Results: ITS Impressions Chest CT 03/26/24 21:50 IMPRESSION: Redemonstration of a right-sided pneumothorax, approximately 15-20% in size with a right posterior medial fifth rib fracture. Head CT 03/26/24 23:09 Impression: No acute intracranial hemorrhage or suspicious mass effect. Cervical Spine CT 03/26/24 23:13 Impression: Straightening and slight reversal of the normal curvature of the cervical spine, likely muscular in origin. Significant degenerative disease, without acute fracture. Chest CTA 03/29/24 08:00 IMPRESSION: 1. Right chest tube in expected position with small right pleural effusion but no pneumothorax. 2. Mild emphysema with mild dependent atelectasis in both lungs. 3. Cardiomegaly with biatrial enlargement. 4. Enlargement of the central pulmonary arteries consistent with pulmonary arterial hypertension. 5. Recent-appearing nondisplaced fractures of the posterior right fifth and sixth ribs. Venous Doppler Study 04/12/24 14:56 IMPRESSION: 1. No deep venous thrombosis within the bilateral lower extremities. Chest X-Ray 04/20/24 07:42 Impression: Small bilateral pleural effusions with mild bibasilar pulmonary edema. Labs Labs: Laboratory Results - last 24 hr 04/21/24 04:18 WBC 5.0 RBC 3.63 L Hgb 10.5 L Hct 33.3 L MCV 91.7 MCH 28.9 MCHC 31.5 L RDW 15.1 H Plt Count 195 MPV 11.4 H Sodium 135 L Potassium 3.1 L Chloride 94 L Carbon Dioxide 33 H Anion Gap 8 BUN 14 Creatinine 0.55 L Estim Creat Clear Calc 68 Estimated GFR > 60 Glucose 86 Calcium 7.7 L Magnesium 1.5 L
[2024-04-21] MEDS: MELATONIN 5 MG TABLET PO (21:49)
[2024-04-21] MEDS: ACETAMINOPHEN 500 MG TABLET 1000 MG PO (22:31)
[2024-04-22] VITALS (10 sets, daily range): BP systolic 108–116; BP diastolic 66–75; PULSE 80–117; RESP 14–22; TEMP 36.8; O2SAT 92–96
[2024-04-22] MEDS: LEVOTHYROXINE SODIUM 75 MCG TABLET BY MOUTH (05:17)
[2024-04-22 06:17] LABS: Anion Gap 7 mmol/L (4-12); Blood Urea Nitrogen 13 mg/dL (7-17); Calcium 7.9 mg/dL (8.4-10.2); Carbon Dioxide 33 mmol/L (22-30); Chloride 94 mmol/L (98-107); Estimated CRCL calculation 68 ml/min; Estimated Glomerular Filt Rate > 60; Glucose 87 mg/dL (65-110); Magnesium 1.9 mg/dL (1.6-2.3); Potassium 3.5 mmol/L (3.4-5.0); Sodium 134 mmol/L (137-145)
[2024-04-22 06:26] LABS: Hematocrit 34.2 % (37.0-47.0); Hemoglobin 10.9 g/dL (12.0-15.0); Mean Corpuscular HGB Conc 31.9 g/dl (32-36); Mean Corpuscular Hemoglobin 29.1 pg (26-34); Mean Corpuscular Volume 91.4 fl (80-100); Mean Platelet Volume 11.4 fl (7.4-10.4); Platelet Count Result 186 k/mm3 (150-375); Red Blood Count 3.74 M/mm3 (4.2-5.4); Red Cell Distribution Width 15.2 % (11.5-14.5); White Blood Count 4.2 K/mm3 (4.5-10.0)
[2024-04-22] MEDS: FLUTICASONE/UMECLIDIN/VILANTER 100-62.5-25 MCG ELLIPTA 1 PUFF INHALATION (08:48)
[2024-04-22] MEDS: AMIODARONE HCL 200 MG TABLET PO (08:49)
[2024-04-22] MEDS: METOPROLOL SUCCINATE EXT REL 50 MG TABCR PO (08:51)
[2024-04-22] MEDS: LORATADINE 5 MG TABLET PO (08:51)
[2024-04-22] MEDS: ASCORBIC ACID 500 MG TABLET 1000 MG PO (08:51)
[2024-04-22] MEDS: MAGNESIUM OXIDE 400 MG TABLET PO (08:51)
[2024-04-22] MEDS: busPIRone HCL 5 MG TABLET PO ×2 (08:51→16:39)
[2024-04-22] MEDS: SODIUM CHLORIDE 1 GM TABLET 2 GM PO ×2 (08:51→16:40)
[2024-04-22] MEDS: ATORVASTATIN 40 MG TABLET PO (08:51)
[2024-04-22] MEDS: PANTOPRAZOLE 40 MG TABLET PO (08:52)
[2024-04-22] MEDS: FUROSEMIDE INJ 40 MG/4 ML VIAL IV PUSH (08:52)
[2024-04-22] MEDS: CALCIUM CARBONATE (OSCAL) 500 MG TABLET PO (08:52)
[2024-04-22] MEDS: LIDOCAINE 5% PATCH 1 PATCH TRANSDERM (08:52)
[2024-04-22] MEDS: ENOXAPARIN 100 MG/ML SYRINGE SUB-Q (08:53)
--- NOTE | 2024-04-22 11:41 | PM.PNPUL ---
Progress Note: A&P Assessment and Plan (1) COPD (chronic obstructive pulmonary disease): Qualifiers: COPD type: unspecified COPD Qualified Code(s): J44.9 - Chronic obstructive pulmonary disease, unspecified Code(s): J44.9 - Chronic obstructive pulmonary disease, unspecified Status: Acute (2) Hypoxemia: Code(s): R09.02 - Hypoxemia Status: Acute (3) Chronic respiratory failure: Qualifiers: Respiratory failure complication: hypoxia Qualified Code(s): J96.11 - Chronic respiratory failure with hypoxia Code(s): J96.10 - Chronic respiratory failure, unspecified whether with hypoxia or hypercapnia Status: Acute Assessment and Plan: This 88-year-old female patient with a history of mild COPD, chronically on maintenance bronchodilators, and chronic hypoxemia managed with supplemental oxygen, has untreated sleep apnea and recent atrial fibrillation for which she is receiving treatment, including anticoagulants. She presented with shortness of breath related to a pneumothorax. Despite the resolution of the pneumothorax, she continued to experience shortness of breath related to congestive heart failure. On physical examination, the patient presented with bilateral crackles, jugular venous distension (JVD), and lower extremity edema despite diuresis, indicating an overall positive fluid balance. The patient was managed with auto CPAP and supplemental oxygen at night while in the medical-surgical back due to persistent nocturnal hypoxemia on oxygen alone. Following a worsening of her respiratory status, she was transferred to the intensive care unit and switched to BiPAP at settings of 12/8, along with supplemental oxygen. Treatment for her atrial fibrillation included full-dose Lovenox and antibiotics. A chest X-ray review showed bilateral pleural effusions and some pulmonary congestion, but no new infiltrates to suggest a lower respiratory tract infection. After diuresis, her cardiorespiratory status improved, and she was transferred back to a regular room. Over the past week, the patient's respiratory status has remained essentially unchanged. The chest X-ray still shows pulmonary congestion and a small pleural effusion, although she has shown clinical improvement. She is using BiPAP support and supplemental oxygen and was switched to BiPAP AVAPS over the weekend. She slept well on AVAPS last night. Her grandson, who has been assisting with decision-making, is currently out of town. She continues to receive full-dose Lovenox, presumably for atrial fibrillation. The plans of the hospitalist team regarding her cardiac issues are unclear. From a respiratory standpoint, her clinical condition is stable, with no significant improvement in gas exchange. The latest chest X-ray continues to show bilateral pleural effusions. On physical examination, there are no crackles. Currently, she is on lower oxygen flow of 3 liters/minutes via nasal cannula. The plan is to await approval for a home ventilator for her use upon discharge. (4) Acute on chronic hypoxic respiratory failure: Code(s): J96.21 - Acute and chronic respiratory failure with hypoxia Status: Acute (5) MARC (obstructive sleep apnea): Code(s): G47.33 - Obstructive sleep apnea (adult) (pediatric) Status: Acute (6) CHF (congestive heart failure): Qualifiers: Heart failure type: unspecified Heart failure chronicity: unspecified Qualified Code(s): I50.9 - Heart failure, unspecified Code(s): I50.9 - Heart failure, unspecified Status: Acute (7) Afib: Qualifiers: Atrial fibrillation type: unspecified Qualified Code(s): I48.91 - Unspecified atrial fibrillation Code(s): I48.91 - Unspecified atrial fibrillation Status: Acute (8) COVID-19: Code(s): U07.1 - COVID-19 Status: Acute Subjective Date/time seen: 04/22/24 11:41 Interval history: Patient with no new respiratory symptoms. She used BiPAP support last night but not throughout. She remains on high-flow nasal cannula. Currently on 3 liters/minute oxygen via nasal cannula. Review of Systems Review of Systems: All systems reviewed & are unremarkable except as noted in HPI and below (HPI and below) Exam Narrative: GENERAL APPEARANCE: Well developed, well nourished, alert and cooperative, and appears to be in mild respiratory distress while on supplemental oxygen SKIN: Inspection of the skin reveals no rashes, ulcerations or petechiae. HEENT: Sclerae anicteric and conjunctivae pink and moist. Extraocular movements were intact and pupils were equal, round. Dry oral mucosa. NECK: Supple. There was no thyroid enlargement, and no tenderness, or masses were felt. LUNGS: Crackles bilaterally, less than before, no wheezing CARDIAC: There was irregular rate and rhythm without any murmurs, gallops, rubs. Tachycardic ABDOMEN: Soft and nontender with normal bowel sounds. There was no organomegaly. LYMPH NODES: No lymphadenopathy was appreciated in the neck, axillae or groin. EXTREMITIES: No cyanosis, clubbing. Trace pedal edema. NEUROLOGIC: Alert. Normal affect. Objective Data Vital Signs Vital Signs: Vital Signs - 24 hr 04/21/24 12:00 04/21/24 12:00 04/21/24 12:00 Temperature 36.8 C Pulse Rate 102 H 112 H Respiratory Rate 20 Blood Pressure 107/67 Pulse Oximetry 94 95 Oxygen Delivery High Flow Therapy with Na Oxygen Flow Rate 3 Fraction of Inspired Oxygen 04/21/24 16:00 04/21/24 20:00 04/21/24 22:00 Temperature 36.6 C 36.8 C 36.8 C Pulse Rate 91 99 99 Respiratory Rate 20 20 20 Blood Pressure 117/72 117/78 117/78 Pulse Oximetry 97 96 96 Oxygen Delivery Oxygen Flow Rate Fraction of Inspired Oxygen 04/21/24 22:10 04/22/24 00:09 04/22/24 03:06 Temperature Pulse Rate 99 85 80 Respiratory Rate 20 22 H 14 Blood Pressure Pulse Oximetry 96 95 95 Oxygen Delivery High Flow Therapy with Na BiPAP BiPAP Oxygen Flow Rate 3 Fraction of Inspired Oxygen 35 04/22/24 04:00 04/22/24 08:49 04/22/24 08:50 Temperature 36.8 C Pulse Rate 94 117 H Respiratory Rate 18 Blood Pressure 110/74 Pulse Oximetry 92 95 Oxygen Delivery Nasal Cannula Oxygen Flow Rate 3 Fraction of Inspired Oxygen 04/22/24 08:51 Temperature Pulse Rate 117 H Respiratory Rate Blood Pressure Pulse Oximetry Oxygen Delivery Oxygen Flow Rate Fraction of Inspired Oxygen Intake/Output Intake/Output: Intake & Output 04/19/24 04/20/24 04/21/24 04/22/24 23:59 23:59 23:59 23:59 Intake Total 2009 1320 1780 440 Output Total 0 1902 300 Balance -640 -242 1482 440 Meds/Results Medications: Active Medications Generic Name Dose Route Start Last Admin Trade Name Freq PRN Reason Stop Dose Admin Acetaminophen 1,000 mg 03/28/24 09:37 04/21/24 22:31 Acetaminophen 500 Mg Tablet PO 1,000 mg Q6H PRN Administration Mild Pain (1-3) or Fever Amiodarone HCl 200 mg 03/27/24 09:00 04/22/24 08:49 Amiodarone Hcl 200 Mg Tablet PO 200 mg DAILY MIGUEL Administration Ascorbic Acid 1,000 mg 03/27/24 09:00 04/22/24 08:51 Ascorbic Acid 500 Mg Tablet PO 1,000 mg QAM MIGUEL Administration Atorvastatin Calcium 40 mg 03/27/24 09:00 04/22/24 08:51 Atorvastatin 40 Mg Tablet PO 40 mg DAILY MIGUEL Administration Buspirone HCl 5 mg 03/27/24 09:00 04/22/24 08:51 Buspirone Hcl 5 Mg Tablet PO 5 mg BID MIGUEL Administration Calcium Carbonate 500 mg 03/27/24 09:00 04/22/24 08:52 Calcium Carbonate (Oscal) 500 Mg Tablet PO 500 mg QAM MIGUEL Administration Enoxaparin Sodium 100 mg 04/15/24 09:00 04/22/24 08:53 Enoxaparin 100 Mg/Ml Syringe SUB-Q 100 mg Q12H MIGUEL Administration Fluticasone/Umeclidinium/Vilanterol 1 puff 04/04/24 08:00 04/22/24 08:48 Fluticasone/Umeclidin/Vilanter 100-62.5-25 Mcg Ellipta INHALATION 1 puff DAILYRT MIGUEL Administration Furosemide 40 mg 04/10/24 17:00 04/22/24 08:52 Furosemide Inj 40 Mg/4 Ml Vial IV PUSH 40 mg BID MIGUEL Administration Levalbuterol HCl 0.63 mg 04/15/24 09:27 04/19/24 16:30 Levalbuterol Neb 1.25 Mg/3 Ml INHALATION 0.63 mg Q6HRT PRN Administration Shortness Of Breath Or Wheezing Levothyroxine Sodium 75 mcg 03/28/24 06:30 04/22/24 05:17 Levothyroxine Sodium 75 Mcg Tablet BY MOUTH 75 mcg DAILY@0630 MIGUEL Administration Lidocaine 1 patch 03/30/24 09:00 04/22/24 08:52 Lidocaine 5% Patch TRANSDERM 1 patch DAILY MIGUEL Administration Loratadine 5 mg 04/20/24 18:30 04/22/24 08:51 Loratadine 5 Mg Tablet PO 5 mg QAM MIGUEL Administration Magnesium Oxide 400 mg 04/22/24 09:00 04/22/24 08:51 Magnesium Oxide 400 Mg Tablet PO 400 mg QAM MIGUEL Administration Melatonin 5 mg 04/13/24 21:00 04/21/24 21:49 Melatonin 5 Mg Tablet PO 5 mg HS MIGUEL Administration Metoprolol Succinate 50 mg 03/27/24 09:00 04/22/24 08:51 Metoprolol Succinate Ext Rel 50 Mg Tabcr PO 50 mg QAM MIGUEL Administration Metoprolol Tartrate 12.5 mg 04/16/24 10:50 04/21/24 06:09 Metoprolol Tartrate 12.5 Mg Tablet PO 12.5 mg Q12HR PRN Administration Heart rate > 100 * Home Med * 300 mg 04/14/24 09:00 04/14/24 17:24 Dupilumab [Dupixent SUB-Q 05/14/24 08:59 300 mg Syringe] 300 Mg/2 Ml [id number] MIGUEL Administration Syringe Pantoprazole Sodium 40 mg 04/13/24 09:00 04/22/24 08:52 Pantoprazole 40 Mg Tablet PO 40 mg QAM MIGUEL Administration Prochlorperazine Edisylate 5 mg 04/15/24 00:39 04/15/24 00:52 Prochlorperazine Edisylate 10 Mg/2 Ml Vial IV PUSH 5 mg Q6H PRN Administration Nausea And Vomiting Senna/Docusate Sodium 2 tab 04/13/24 12:43 Senna/Docusate Sodium Tablet PO BID PRN Constipation Sodium Chloride 2 gm 04/07/24 17:00 04/22/24 08:51 Sodium Chloride 1 Gm Tablet PO 2 gm BID MIGUEL Administration Radiology Results: ITS Impressions Chest CT 03/26/24 21:50 IMPRESSION: Redemonstration of a right-sided pneumothorax, approximately 15-20% in size with a right posterior medial fifth rib fracture. Head CT 03/26/24 23:09 Impression: No acute intracranial hemorrhage or suspicious mass effect. Cervical Spine CT 03/26/24 23:13 Impression: Straightening and slight reversal of the normal curvature of the cervical spine, likely muscular in origin. Significant degenerative disease, without acute fracture. Chest CTA 03/29/24 08:00 IMPRESSION: 1. Right chest tube in expected position with small right pleural effusion but no pneumothorax. 2. Mild emphysema with mild dependent atelectasis in both lungs. 3. Cardiomegaly with biatrial enlargement. 4. Enlargement of the central pulmonary arteries consistent with pulmonary arterial hypertension. 5. Recent-appearing nondisplaced fractures of the posterior right fifth and sixth ribs. Venous Doppler Study 04/12/24 14:56 IMPRESSION: 1. No deep venous thrombosis within the bilateral lower extremities. Chest X-Ray 04/20/24 07:42 Impression: Small bilateral pleural effusions with mild bibasilar pulmonary edema. Labs Labs: Laboratory Results - last 24 hr 04/22/24 05:35 WBC 4.2 L RBC 3.74 L Hgb 10.9 L Hct 34.2 L MCV 91.4 MCH 29.1 MCHC 31.9 L RDW 15.2 H Plt Count 186 MPV 11.4 H Sodium 134 L Potassium 3.5 Chloride 94 L Carbon Dioxide 33 H Anion Gap 7 BUN 13 Creatinine 0.55 L Estim Creat Clear Calc 68 Estimated GFR > 60 Glucose 87 Calcium 7.9 L Magnesium 1.9
[2024-04-22] MEDS: POTASSIUM CHLORIDE 20 MEQ ER TABLET 40 MEQ PO (12:33)
--- NOTE | 2024-04-22 15:48 | PM.DS ---
DS: Summary Time Spent with Patient Time attestation: Total time spent providing and/or coordinating discharge services: DS: Data Data Completed and Pending Labs on day of discharge: Labs from last 24 hours 04/22/24 05:35 WBC 4.2 L RBC 3.74 L Hgb 10.9 L Hct 34.2 L MCV 91.4 MCH 29.1 MCHC 31.9 L RDW 15.2 H Plt Count 186 MPV 11.4 H Sodium 134 L Potassium 3.5 Chloride 94 L Carbon Dioxide 33 H Anion Gap 7 BUN 13 Creatinine 0.55 L Estim Creat Clear Calc 68 Estimated GFR > 60 Glucose 87 Calcium 7.9 L Magnesium 1.9 Discharge Plan Discharge Attending physician on discharge: Minna Prince Consulting providers: Hector Davies; Noah Madden Discharging Clinician: Germaine Emmanuel Patient Disposition: SNF Activity: as tolerated Diet: heart healthy Discharge Instructions: Chest tube dressing: Keep the dressing in place on your right chest for 3 days after the chest tube was removed. Your gauze dressing can be removed on Saturday04/01/24 and you can then apply a gauze dressing daily until it heals. You may shower over your incision starting Saturday with mild soap and water. If you develop chest pain or shortness of breath, return to the closest ER immediately. 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 Patient Instructions: Warfarin (By mouth), Traumatic Pneumothorax (DC), Safe Use of Anticoagulants (GEN), BiPAP (GEN), Blood Thinners (GEN), COVID-19 (Coronavirus Disease 2019) (DC) Patient Language: Yoruba Stand Alone Forms: General Discharge Information Follow-up/Referrals: Paulina Houser APRN [Primary Care Provider] - Hector Davies MD [Physician] - Discharge Medications: New sennosides-docusate sodium [Senokot-S] 8.6-50 mg Tablet 2 tab-cap PO BID PRN (Reason: Constipation) Qty: 10 0RF levalbuterol HCl 1.25 mg/3 mL Solution For Nebulization 0.63 mg inhalation Q6HRT PRN (Reason: Shortness Of Breath Or Wheezing) Qty: 90 0RF Trelegy Ellipta 100-62.5-25 mcg Blister With Device 1 inh inhalation DAILYRT Qty: 1 0RF lidocaine [Lidoderm] 5 % Adhesive Patch,Medicated 1 patch transdermal DAILY Qty: 15 0RF loratadine [Allergy Relief (loratadine)] 10 mg tablet 10 mg PO DAILY Qty: 30 0RF magnesium oxide 400 mg (241.3 mg magnesium) Tablet 400 mg PO QAM Qty: 30 0RF pantoprazole 40 mg Tablet,Delayed Release (Dr/Ec) 40 mg PO QAM Qty: 30 0RF melatonin 5 mg Tablet 5 mg PO HS Qty: 30 0RF Eliquis 2.5 mg tablet 2.5 mg PO BID Qty: 60 0RF Continued ascorbic acid (vitamin C) 1,000 mg capsule 1 g PO DAILY calcium carbonate [Calcium 600] 600 mg calcium (1,500 mg) tablet 600 mg PO DAILY fluticasone propion-salmeterol [Wixela Inhub] 100-50 mcg/dose blister with device 1 inh inhalation Q12H Qty: 60 2RF buspirone 5 mg tablet 5 mg PO BID Qty: 60 2RF amiodarone 200 mg tablet 200 mg PO Q24H potassium chloride 20 mEq tablet extended release 20 meq PO BID furosemide 40 mg Tablet 40 mg PO DAILY Qty: 30 0RF atorvastatin 40 mg Tablet 40 mg PO DAILY Qty: 30 0RF metoprolol succinate 50 mg Tablet Extended Release 24 Hr 50 mg PO QAM Qty: 30 0RF Dupixent Syringe 300 mg/2 mL syringe 300 mg SUB-Q .biweekly amlodipine 5 mg tablet See Rx Instructions .ROUTE .COMPLEX Qty: 90 0RF Dose Instruction: TAKE 1 TABLET BY MOUTH DAILY Rx Instructions: TAKE 1 TABLET BY MOUTH DAILY levothyroxine 75 mcg tablet See Rx Instructions .ROUTE .COMPLEX Qty: 90 0RF Dose Instruction: TAKE 1 TABLET BY MOUTH DAILY Rx Instructions: TAKE 1 TABLET BY MOUTH DAILY Discontinued warfarin 2 mg tablet 4 mg PO .evening Rx Instructions: new order Date of admission: 03/27/24 01:45 Primary Care Provider: Paulina Houser Admitting Provider: Minna Prince Attending physician on admission: Minna Prince Condition: Stable
== END 2024-04-22 17:30 | DRG 199 ==
LOC: ANHED 03-27 00:44 → ANH3MEDSUR 03-27 06:57 → ANHICU 04-23 09:03 → ANHIMU 04-23 09:03
PROVIDERS: Hospitalist; Internal Medicine; Internal Medicine Pulmonary Disease; Physician Assistant; Admitting Provider General Practice; Emergency Provider Emergency Medicine; PCP Nurse Practitioner Family; Visit Provider Family Medicine
DX: S27.0XXA Traumatic pneumothorax, initial encounter (principal); I50.33 Acute on chronic diastolic (congestive) heart failure; J96.22 Acute and chronic respiratory failure with hypercapnia; J96.21 Acute and chronic respiratory failure with hypoxia; U07.1 COVID-19; S22.31XA Fracture of one rib, right side, initial encounter for closed fracture; E87.1 Hypo-osmolality and hyponatremia; W18.39XA Other fall on same level, initial encounter; I48.91 Unspecified atrial fibrillation; J44.9 Chronic obstructive pulmonary disease, unspecified; E78.5 Hyperlipidemia, unspecified; K21.9 Gastro-esophageal reflux disease without esophagitis; E03.9 Hypothyroidism, unspecified; G47.33 Obstructive sleep apnea (adult) (pediatric); I11.0 Hypertensive heart disease with heart failure; I27.20 Pulmonary hypertension, unspecified; Z23 Encounter for immunization; Z90.49 Acquired absence of other specified parts of digestive tract; Z79.01 Long term (current) use of anticoagulants; Z79.82 Long term (current) use of aspirin; Z79.899 Other long term (current) drug therapy; Z99.81 Dependence on supplemental oxygen
CPT/HCPCS: 32551; 36415; 36600; 70450; 71045; 71046; 71250; 71275; 72125; 80048; 80053; 81003; 82104; 82375; 82805; 83050; 83735; 83880; 84100; 84439; 84484; 85018; 85025; 85027; 85380; 85610; 85730; 87637; 90471; 90715; 93005; 93970; 94003; 94640; 94660; 94667; 94668; 94762; 96365; 96372; 96375; 96376; 97110; 97116; 97161; 97166; 97530; 97535; 99285; A9270; J0690; J0696; J0780; J1171; J1650; J1885; J1940; J2270; J2919; J3360; J3475; J3480; J7040; J7120; Q9967

== ENCOUNTER 2024-04-30 11:37 | Outpatient (CLI) | payer MEDICARE, SELFPAY ==
--- NOTE | ~2024-04-30 | XR_ITS ---
CHEST RADIOGRAPH, PA AND LATERAL CLINICAL HISTORY: SHORTNESS OF BREATH . COMPARISON: 04/20/2024 TECHNIQUE: PA and lateral views of the chest. FINDINGS The cardiomediastinal silhouette is enlarged, unchanged. Increased bilateral pleural effusions, right greater than left. The remainder of the lungs are clear. IMPRESSION: Large bilateral pleural effusions, right greater than left. Interval increase from prior. Reviewed, dictated and finalized at location A.
--- OUTSIDE RECORDS SUMMARY | 2024-04-30 13:31 | XMS_ITS | Clinical Summary ---
Author Organization 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 Gender Identity Not on file Sexual Orientation Not on file Last Filed Vital Signs Vital Sign Reading Time Taken Comments Blood Pressure 168/86 04/21/2021 9:26 AM AIR COMPRESSOR OPERATOR Pulse 75 04/21/2021 9:26 AM AIR COMPRESSOR OPERATOR Temperature 36.9 C (98.4 F) 04/21/2021 9:26 AM AIR COMPRESSOR OPERATOR Respiratory Rate 16 04/21/2021 9:26 AM AIR COMPRESSOR OPERATOR Oxygen Saturation 92% 04/21/2021 9:26 AM AIR COMPRESSOR OPERATOR Inhaled Oxygen Concentration - - Weight 89.8 kg (198 lb) 04/21/2021 9:26 AM AIR COMPRESSOR OPERATOR Height 160 cm (5' 3 ) 04/21/2021 9:26 AM AIR COMPRESSOR OPERATOR Body Mass Index 35.07 04/21/2021 9:26 AM AIR COMPRESSOR OPERATOR Plan of Treatment Health Maintenance Due [...] Payer ID:[id number] (NAIC) Type:Not on file Address: [place] [phone] Care Teams Adz Worker Relationship Specialty Start Date End Date Roman Mancia DO [address] [address] PCP - General INTERNAL MEDICINE 02/21/21
--- OUTSIDE RECORDS SUMMARY | 2024-04-30 13:31 | XMS_ITS | Patient Health Summary ---
Author Organization [facility] Address [address] [facility] [place] [address] Care Team Providers Care Medical Housekeeper Name Role Phone Brandon Roberts MD Primary Care Provider [phone] Note from [facility],non-owned Affiliates and Associated Physician Practices is amultiple site organization consisting of ambulatory clinics and hospital sitesin [place] and [place]. This disclosure is being madepursuant to the Care Everywhere program and may not contain all information available regarding this patient. Last updated 17.[facility] Allergies No known active allergies Medications * [...] 06/19/2012) * CREATININE BLOOD - POCT (IP) [facility](Performed 02/18/1998) Results * DERMATOPATHOLOGY (08/12/2023 11:17 AM CDT) Only the most recent of4 resultswithin the time period is included. Case Report Dermatopathology Report Case: [id number] Authorizing Provider: Chikis Mendoza MD Collected: 08/12/2023 11:17 AM Ordering Location: [facility] - Received: 08/13/2023 01:05 [...] purposes. 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
--- OUTSIDE RECORDS SUMMARY | 2024-04-30 13:31 | XMS_ITS | Referral Summary ---
Author Organization [facility] Address [address] [place] [address] Care Team Providers Care Building Coordinator Name Role Phone Oscar Carroll MD Unavailable + Oleg Marrero MD Unavailable [phone] Paulina Houser NP Primary Care Provider [phone] Encounters Date Type Department Care Team Description 04/30/2024 11:35 AM CDT Ancillary Procedure [facility] Medical [facility] Cardiology [address] [place] [address] [place] [phone] Arrived 04/30/2024 11:00 AM CDT Office Visit [facility] Medical Group Cardiology [address] [place] [address] [address] [place] [phone] Caridad Self MD Persistent atrial fibrillation (HCC) (Primary Dx); Chronic anticoagulation; Primary hypertension; Mixed hyperlipidemia 03/27/2024 Telephone [facility] Cardiology [address] [place] [address] [address] [place] [phone] Tequila Garza NP punctured lung; broken rib; warfarin therapy 03/26/2024 Anticoagulation Visit [facility] Cardiology [address] [place] [address] [address] [place] [phone] Teresa Snowden RN Atrial fibrillation, unspecified type (HCC) (Primary Dx) 03/26/2024 Telephone [place] [address] [place] [phone] Tequila Garza NP 03/26/2024 10:30 AM INTERACTIVE DEVELOPER Office Visit [place] [address] [place] [phone] Tequila Garza NP Persistent atrial fibrillation (HCC) (Primary Dx); Encounter for anticoagulation discussion and counseling; On amiodarone therapy; MARC (obstructive sleep apnea); Chronic obstructive pulmonary disease, unspecified COPD type (HCC); Edema, lower extremity 03/11/2024 Telephone [place] [address] [place] [phone] Caridad Self MD Med Refill 03/05/2024 Orders Only [place] [address] [place] [phone] Tequila Garza NP Persistent atrial fibrillation with rapid ventricular response (HCC) 03/05/2024 10:00 AM INTERACTIVE DEVELOPER Office Visit [place] [address] [place] [phone] Tequila Garza NP Persistent atrial fibrillation with rapid ventricular response (HCC) (Primary Dx); Chronic anticoagulation; History of cardioversion; MARC (obstructive sleep apnea); Chronic obstructive pulmonary disease, unspecified COPD type (HCC); Hospital discharge follow-up 02/20/2024 Telephone [place] [address] [place] [phone] Tequila Garza NP Medication Problem 02/20/2024 Orders Only [place] [address] [place] [phone] Teresa Tadeo MA 02/20/2024 Telephone [place] [address] [place] [phone] Tequila Garza NP Med Refill 02/18/2024 Orders Only [facility] Medical Group Cardiology [address] [place] [address] Oxana Fragoso NP from Last 3 Months Allergies No known active allergies Medications amLODIPine (NORVASC) 5 mg tablet Take 1 tablet (5 mg total) by mouth every morning Active calcium carbonate-vitamin D3 1500 mg (600 mg elemental) -200 units per tablet Take 1 tablet by mouth every morning Active omega-3 fatty acids-fish oil 684-1,200 mg capsule,delayed release(DR/EC) Take 2 tablets by mouth every morning Active levothyroxine (SYNTHROID, LEVOTHROID) 75 mcg tablet Take 1 tablet (75 mcg total) by mouth water team leader before breakfast 0 11/29/19 18 Active dupilumab (DUPIXENT) 300 mg/2 mL syringe Inject 2 mL (300 mg total) under the skin every 14 (fourteen) days. 4 Syringe 5 02/26/19 19 Active ibuprofen (ADVIL,MOTRIN) 600 mg tabletIndications:P ain,Postoperative Acute Pain Take 1 tablet (600 mg total) by mouth every 8 (eight) hours 30 tablet 09/26/19 20 Active Additional Information Patient not taking.Reported on 04/30/2024 ascorbic acid (VITAMIN C) 500 mg tablet,chewable Take 600 mg by mouth daily Active cholecalciferol (VITAMIN D-3) [...] MOUTH EVERY 12 HOURS 01/20/20 24 Active potassium chloride ER 20 mEq CR tablet Take 2 tablets (40 mEq total) by mouth daily 60 tablet 4 03/12/19 25 Active Additional Information Patient taking differently: 20 mEqoral Daily, Reported on 04/30/2024 atorvastatin (LIPITOR) 40 mg tablet TAKE 1 TABLET(40 MG) BY MOUTH DAILY 90 tablet 03/19/19 Active metoprolol XL (TOPROL-XL) 50 mg extended release tablet TAKE 1 TABLET(50 MG) BY MOUTH DAILY 90 tablet 03/19/19 25 Active furosemide (LASIX) 40 mg tablet TAKE 1 TABLET(40 MG) BY MOUTH DAILY 90 tablet 03/19/19 Active warfarin (COUMADIN) 2 mg tabletIndications:a trial fibrillation Take 2 tablets (4 mg total) by mouth daily Take as directed, dose may change after blood test 60 tablet 11 03/26/19 Active Additional Information Patient not taking.Reported on 04/30/2024 acetaminophen (TYLENOL) 500 mg tablet Take 1 tablet (500 mg total) by mouth every 6 (six) hours as needed for pain Active amiodarone (PACERONE) 200 mg tablet Take 1 tablet (200 mg total) by mouth daily Active apixaban (ELIQUIS) 5 mg tablet Take 1 tablet (5 mg total) by mouth 2 (two) times a day Active levalbuterol (XOPENEX) 1.25 mg/0.5 mL nebulizer solution Take 0.5 mL (1.25 mg total) by nebulization 3 (three) times a day Active lidocaine (LIDODERM) 5 % Place 1 patch on the skin daily Remove & discard patch within 12 hours or as directed by MD. Active loratadine (CLARITIN) 10 mg tablet Take 1 tablet (10 mg total) by mouth daily Active magnesium oxide 400 mg magnesium capsule Take by mouth Active polyethylene glycol 3350 (MIRALAX ORAL) Take by mouth Active pantoprazole DR (PROTONIX) 40 mg EC tablet Take 1 tablet (40 mg total) by mouth daily Active senna (SENOKOT) 8.6 mg tablet Take 1 tablet by mouth daily Active fluticasone-umeclid in-vilanter (Trelegy Ellipta) 100-62.5-25 mcg inhaler Inhale 1 puff daily Active tuberculin (PPD) 5 tub. unit /0.1 mL injectionIndication s:Delayed Hypersensitivity Skin Test for Tuberculin PPD Inject into the skin Active amiodarone (PACERONE) 200 mg tabletIndications:V entricular Rate Control in Atrial Fibrillation Take 2 tablets (400 mg total) by mouth 2 (two) times a day for 7 days, THEN 2 tablets (400 mg total) daily for 7 days, THEN 1 tablet (200 mg total) daily. 402 tablet 03/05/19 25 025 Disconti nued(Dup licate order) Active Problems Problem Noted Date Diagnosed Date Chronic anticoagulation 04/30/2024 Primary hypertension 04/30/2024 Mixed hyperlipidemia 04/30/2024 Atrial fibrillation 03/26/2024 Screening for malignant neoplasm of colon 2020 Overview (07/20/2020): Added automatically from request for surgery [id number] History of colon cancer 10/29/2019 Clostridium difficile infection 10/07/2019 Acute postoperative abdominal pain 09/23/2019 Malignant neoplasm of hepatic flexure 09/09/2019 Overview (09/09/2019): Added automatically from request for surgery [id number] Malignant neoplasm of transverse colon 0 Other atopic dermatitis 02/26/2018 Pruritus, unspecified 02/26/2018 Venous barkley of lip 02/26/2018 Immunizations Immunization Administration Dates Next Due Pneumococcal Conjugate PCV 13 12/02/2017 Social History Tobacco Use Types Packs/Day Years Used Date Smoking Tobacco: Former Cigarettes 1 67.2 S tarted: 8 Smokeless Tobacco: Never Tobacco [...] on file Legal Sex Female 12:02 PM INTERACTIVE DEVELOPER Gender Identity Female 10/28/2019 5:35 PM CDT Sexual Orientation Straight 10/28/2019 5: 35 PM CDT Last Filed Vital Signs Vital Sign Reading Time Taken Comments Blood Pressure 104/62 04/30/2024 10:57 AM CDT Pulse 113 04/30/2024 10:57 AM CDT Temperature 37.1 C (98.7 F) 09/10/2023 10:46 AM CDT Respiratory Rate 25 10/18/2022 12:00 PM CDT Oxygen Saturation 94% 04/30/2024 10:57 AM CDT Inhaled Oxygen Concentration - - Weight 90.7 kg (200 lb) 04/30/2024 10:57 AM CDT per pt Height 160 cm (5' 3 ) 04/30/2024 10:57 AM CDT Body Mass Index 35.43 04/30/2024 10:57 AM CDT Plan of Treatment Not on file Procedures Procedure Name Priority Date/Time Associated Diagnosis Comments ELECTROCARDIOGRAM REPORT Routine 025 11:28 AM CDT Persistent atrial fibrillation (HCC) ECG 12-LEAD Routine 03/26/2024 4:15 PM INTERACTIVE DEVELOPER ECG 12-LEAD Routine 03/05/2024 Persistent atrial fibrillation with rapid ventricular response (HCC) from Last 3 Months Results * Electrocardiogram Report (04/30/2024 11:28 AM CDT) us Caridad Self MD ECG ORDERABLES Final R esult * ECG 12 lead (03/26/2024 4:15 PM INTERACTIVE DEVELOPER) Tequila Garza NP ECG ORDERABLES Final Res ult * ECG 12 lead (03/05/2024) 03/05/2024 us Tequila Garza NP ECG ORDERABLES Edited Re sult - Final from Last 3 Months Insurance MEDICARE SOLUTIONS MEDICARE SOLUTIONS Advance Directives For more information, please contact: [phone] * Full Code (Latest Code Status on [...] Agents on File Name Relationship Healthcare Agent Relationsmi p Communication Dafne Manzo Daughter Health Care Agent Care Teams Building Coordinator Relationship Specialty Start Date End Date Paulina Houser NP [address] [address] PCP - General Family Medicine 03/05/24 Oscar Carroll MD [address] [place] [address] Treatment Manager Gastroenterology 09/03/19 Oleg Marrero MD [address] [place] [address] Surgeon Colon and Rectal Surgery 10/13/19
--- OUTSIDE RECORDS SUMMARY | 2024-04-30 13:31 | XMS_ITS ---
Author Organization [facility] Address [address] [place] [address] Care Team Providers Care Karate Teacher Name Role Phone Oscar Carroll MD Unavailable + Oleg Marrero MD Unavailable [phone] Paulina Houser NP Primary Care Provider [phone] Active Problems Problem Noted Date Diagnosed Date Chronic anticoagulation 04/30/2024 Primary hypertension 04/30/2024 Mixed hyperlipidemia 04/30/2024 Atrial fibrillation 03/26/2024 Screening for malignant neoplasm of colon 2020 Overview (07/20/2020): Added automatically from request for surgery [id number] History of colon cancer 10/29/2019 Clostridium difficile infection 10/07/2019 Acute postoperative abdominal pain 09/23/2019 Malignant neoplasm of hepatic flexure 09/09/2019 Overview (09/09/2019): Added automatically from request for surgery [id number] Malignant neoplasm of transverse colon 0 Other atopic dermatitis 02/26/2018 Pruritus, unspecified 02/26/2018 Venous barkley of lip 02/26/2018 Current Treatment and Therapy Plans No current plan information found. Past Treatment and Therapy Plans No past plan information found. Lifetime Dose Tracking * Chemical Lifetime Dose Automatic Entry Manual Entr y DLP 1,286 mGycm 1,286 mGycm 0 mGycm Treatment Summaries Malignant neoplasm of transverse colon (HCC)* Images from the original note were not included. [facility] [address] [place] [address] This Survivorship Care Plan is a cancer [...] Information: Primary Care Physician Roman Mancia DO [phone] Surgeon Oleg Marrero MD Radiation Oncologist Medical Oncologist Calender Machine Operator Helper Oscar Bill MD Treatment Summary Cancer Diagnosis [...] valrubicin, doxorub icin isotoxic equivalent Research Studies [facility] ([facility]) [...] Medical oncology and Surgeon if both are [facility]) History and Physical every 3 months for 2 years then, every 6 months for following 3 years Roman Gavino After 5 years of treatment completion - [...] Help learning to eat healthier, call the director of collections at: [facility] . Have an active lifestyle, strive for [...] physician. Resources you may be interested in: [facility] Cancer [place] A National Cancer [place] [facility] [email or web address].[facility]/ [facility] Information Center 1st floor of [facility] [phone]. Computer access, educational material, counseling services (FREE) United Ost[employer] Association: the place for ostomy resources, advocacy, and support. www.ostomy.org The ostomy nurse at [facility] can be reached at [phone] Online Resources: www.cancer.net; http://www.cdc.gov/cancer/survivorship; http://www.cancercare.org/tagged/post-treatment_survivorship; http://www.cancer.gov/about-cancer/coping/survivorship [employer]: https://survivorship.cancer.gov/ an online tool for cancer survivors andcaregivers created by the [place] [employer] and the National Cancer [place]. It provides: Information on dealing with side effects from cancer and treatment Caregivers with support and resources Practical advice about talking to friends and family about cancer Questions to ask their health care team Help understanding their rights in the workplace
--- OUTSIDE RECORDS SUMMARY | 2024-04-30 13:31 | XMS_ITS | Clinical Summary ---
Author Organization [facility] Address [address] [place] [address] Care Team Providers Care Counseling Services Director Name Role Phone Oscar Carroll MD Unavailable + Oleg Marrero MD Unavailable [phone] Paulina Houser NP Primary Care Provider [phone] Allergies No known active allergies Medications amLODIPine [...] 1 tablet (75 mcg total) by mouth pulmonology physician before breakfast 0 11/29/19 18 Active dupilumab (DUPIXENT) 300 mg/2 mL syringe Inject 2 mL (300 mg total) under the skin every 14 (fourteen) days. 4 Syringe 5 02/26/19 19 Active ibuprofen (ADVIL,MOTRIN) 600 mg tabletIndications:P ain,Postoperative Acute Pain Take 1 tablet (600 mg total) by mouth every 8 (eight) hours 30 tablet 09/26/19 Active Additional Information Patient not taking.Reported on [...] 03/19/19 25 Active warfarin (COUMADIN) 2 mg tabletIndications:a trial fibrillation Take 2 tablets (4 mg total) by mouth daily Take as directed, dose may change after blood test 60 tablet 11 03/26/19 25 Active Additional Information Patient not taking.Reported on [...] (07/20/2020): Added automatically from request for surgery [id number] History of colon cancer 10/29/2019 Clostridium difficile infection 10/07/2019 Acute postoperative abdominal pain 09/23/2019 Malignant neoplasm of hepatic flexure 09/09/2019 Overview (09/09/2019): Added automatically from request for surgery [id number] Malignant neoplasm of transverse colon 0 Other atopic dermatitis 02/26/2018 Pruritus, unspecified 02/26/2018 Venous barkley of lip 02/26/2018 Encounters Date Type Department Care Team Description 04/30/2024 11:35 AM CDT Ancillary Procedure [facility] Cardiology [address] [place] [address] [place] [phone] Arrived 04/30/2024 11:00 AM CDT Office Visit [place] [address] [place] [phone] Caridad Self MD Persistent atrial fibrillation (HCC) (Primary Dx); Chronic anticoagulation; Primary hypertension; Mixed hyperlipidemia 03/27/2024 Telephone [place] [address] [place] [phone] Tequila Garza NP punctured lung; broken rib; warfarin therapy 03/26/2024 10:30 AM PLASTICS FABRICATOR AND ASSEMBLER Office Visit [place] [address] [place] [phone] Tequila Garza NP Persistent atrial fibrillation (HCC) (Primary Dx); Encounter for anticoagulation discussion and counseling; On amiodarone therapy; MARC (obstructive sleep apnea); Chronic obstructive pulmonary disease, unspecified COPD type (HCC); Edema, lower extremity 03/26/2024 Anticoagulation Visit [place] [address] [place] [phone] Teresa Snowden RN Atrial fibrillation, unspecified type (HCC) (Primary Dx) 03/26/2024 Telephone [place] [address] [place] [phone] Tequila Garza NP 03/11/2024 Telephone [place] [address] [place] [phone] Caridad Self MD Med Refill 03/05/2024 10:00 AM PLASTICS FABRICATOR AND ASSEMBLER Office Visit [place] [address] [place] [phone] Tequila Garza NP Persistent atrial fibrillation with rapid ventricular response (HCC) (Primary Dx); Chronic anticoagulation; History of cardioversion; MARC (obstructive sleep apnea); Chronic obstructive pulmonary disease, unspecified COPD type (HCC); Hospital discharge follow-up 03/05/2024 Orders Only [facility] Cardiology [address] [place] [phone] Tequila Garza NP Persistent atrial fibrillation with rapid ventricular response (HCC) 02/20/2024 Telephone [facility] Cardiology [address] [place] [phone] Tequila Garza NP Medication Problem 02/20/2024 Orders Only [address] [place] [phone] Teresa Tadeo MA 02/20/[address] [place] [phone] Tequila Garza NP Med Refill 02/18/2024 Orders Only [facility] Cardiology [address] [place] [address] [place] [phone] Oxana Fragoso NP from Last 3 Months Immunizations Immunization Administration Dates Next Due Pneumococcal Conjugate PCV 13 12/02/2017 Surgical History Surgery Date Site/Laterality Comments DC LIGJ DIVJ &/EXCJ VARICOSE VEIN CLUSTER 1 LEG Varicose Vein Ligation - (Added by TW Conv) DC TONSILLECTOMY PRIMARY/SECONDARY <AGE 14 Tonsillectomy - (Added by TW Conv) ABDOMINAL SURGERY 09/23/2019 Right hemicolectomy Medical [...] - (Added by TW Conv) Colon cancer (HCC) 08/2019 Hypertension Family History Medical History Relation Name [...] Tobacco: Former Cigarettes 1 67.2 S tarted: 1957 Smokeless Tobacco: Never Tobacco [...] on file Legal Sex Female 12:02 PM PLASTICS FABRICATOR AND ASSEMBLER Gender Identity Female 10/28/2019 5:35 PM CDT [...] 04/30/2024 10:57 AM CDT Plan of Treatment Health Maintenance Due Date Last Done Comments Depression Screening 1935 Hepatitis B Screening 10[birth year]01/1953 Well Visit 65+ 2002 Pneumococcal vaccine 65+ (2 of 2 - PPSV23) 01/27/2018 12/02/2017 Zoster Vaccine (3 of 3) 02/26/2022 01/01/2022, 04/11 Fall Risk Assessment 10/19/2023 10/18/2022 Covid-19 Vaccine (2023-2 5 season) 2023 12/08/2021, 06/17/2021, 12/23/2020, Additional history exists DTaP/Tdap/Td Vaccine (3 - Td or Tdap) 03/27/2034 03/27/2024, 11/17/2022 Influenza Vaccine Completed 11/07/2023, , 12/08/2021, Additional history exists Procedures Procedure Name Priority Date/Time Associated Diagnosis Comments ELECTROCARDIOGRAM REPORT Routine 025 11:28 AM CDT Persistent atrial fibrillation (HCC) ECG 12-LEAD Routine 03/26/2024 4:15 PM PLASTICS FABRICATOR AND ASSEMBLER ECG 12-LEAD Routine 03/05/2024 Persistent atrial fibrillation with rapid ventricular response (HCC) from Last 3 Months Results * Electrocardiogram Report (04/30/2024 11:28 AM CDT) us Caridad Self MD ECG ORDERABLES Final R esult * ECG 12 lead (03/26/2024 4:15 PM PLASTICS FABRICATOR AND ASSEMBLER) us Tequila Garza NP ECG ORDERABLES Final Res ult * ECG 12 lead (03/05/2024) 03/05/2024 Tequila Garza NP ECG ORDERABLES Edited Re sult - Final from Last 3 Months Insurance MEDICARE SOLUTIONS MEDICARE SOLUTIONS Advance Directives For more information, please contact: [phone] * Full Code (Latest Code Status on [...] Manzo Daughter Health Care Agent Care Teams Counseling Services Director Relationship Specialty Start Date End Date Paulina Houser NP [address] [place] [address] PCP - General Family Medicine 03/05/24 Oscar Carroll MD [address] [place] [address] Iron Assorter Gastroenterology 09/03/19 Oleg Marrero MD [address] [place] [address] Surgeon Colon and Rectal Surgery 10/13/19
--- OUTSIDE RECORDS SUMMARY | 2024-04-30 13:31 | XMS_ITS | Encounter Summary ---
Author Organization [facility] Address [address] [place] [address] Care Team Providers Care Cell Phone Repair Technician Name Role Phone Brandon Roberts MD Primary Care Provider [phone] Encounter Details Date Type Department Care Team (Late st Contact Info) Description 08/12/2023 Lab Requisition [facility] - DermPath Lab [address] [facility], [place] [address] Chikis Mendoza MD [address] [facility] [address] [place] [address] Social History Tobacco Use Types Packs/Day Years [...] AM CDT) Case Report Dermatopathology Report Case: [id number] Authorizing Provider: Chikis Mendoza MD Collected: 08/12/2023 11:17 AM Ordering Location: [facility] - Received: 08/13/2023 01:05 [...] determined by the Dermatopathology Laboratory at [facility], directed by Dr. Leslye Thomas. These tests need not be, and therefore are not, approved by the [place] Food and Drug Administration. The tests are used for clinical purposes. Billing Codes Specimen Charges Stain Charges 53061 1 5:05 PM CDT DERMATOPATHOLOGY LABORATORY Embedded Images 5:05 PM CDT DERMATOPATHOLOGY LABORATORY Pathology/Cytolo gy TISSUE SPECIMEN FROM SKIN / Unknown 08/12/2023 11:17 AM CDT 08/13/2023 1:05 PM CDT Chikis Mendoza MD LAB - PATHOLOGY/CYTO LOGY ORDERABLES DERMATOPATHOLOGY LABORATORY [facility] - Department of Dermatology [facility] Medicine [address] [place] [address], [address] Floor [address] [phone] documented in this encounter Visit Diagnoses Not on filedocumented in this encounter Care Teams Cell Phone Repair Technician Relationship Specialty [place] [address] [place] [phone] PCP - General 11/12/08 documented as of this encounter
--- OUTSIDE RECORDS SUMMARY | 2024-04-30 13:31 | XMS_ITS | Encounter Summary ---
Author Organization [facility] Healthcare Address [address] [place] [address] Care Team Providers Care Plate Drying Machine Tender Name Role Phone Oscar Carroll MD Unavailable + Oleg Marrero MD Unavailable [phone] Paulina Houser NP Primary Care Provider Reason for Visit * Cardiology (Routine) - Closed Specialty Diagnoses / Procedures Referred By Contcarolina t Referred To Contact Diagnoses Persistent atrial fibrillation (HCC) Procedures 48 HR Holter Monitor Caridad Self MD [address] [address] Phone: tel: fax: [facility] Cardiology [address] [place] [address] Phone: tel: fax: Referral ID Status Reason Start Date Expiration Date Visits Re quested Visits Authorized [id number] Closed 04/30/2024 05/30/2025 1 1 Encounter Details Date Type Department Care Team (Late st Contact Info) Description 04/30/2024 11:35 AM CDT [address]illary [address] [facility] Cardiology [address] [place] [phone] Arrived Social History Tobacco Use Types Packs/Day Years Used Date Smoking Tobacco: Former Cigarettes 1 67.2 S tarted: 8 Smokeless Tobacco: Never Comments:says [...] on file Legal Sex Female 12:02 PM [employer] Gender Identity Female 10/28/2019 5:35 PM CDT Sexual Orientation Straight 10/28/2019 5: 35 PM CDT documented as of this encounter Plan of Treatment Pending Results Name Type Priority Associated Diagnoses Date /Time 48 HR Holter Monitor Cardiac Services Routine Persistent atrial fibrillation (HCC) 04/30/2024 11:30 AM CDT documented as of this encounter Visit Diagnoses Not on filedocumented in this encounter Care Teams Plate Drying Machine Tender Relationship Specialty Start Date End Date Paulina Houser NP [address] [place] [address] PCP - General Family Medicine 03/05/24 Oscar Carroll MD [address] [place] [address] Electronics System Mechanic Gastroenterology 09/03/19 Oleg Marrero MD [address] [place] [address] Surgeon Colon and Rectal Surgery 10/13/19 documented as of this encounter
--- OUTSIDE RECORDS SUMMARY | 2024-04-30 13:31 | XMS_ITS | Referral Summary ---
Author Organization [facility] Anna Lozabai Address [address] [facility] [place] [address] Care Team Providers Care Education Managers Name Role Phone Brandon Roberts MD Primary Care Provider [phone] Source Comments [facility],non-owned Affiliates and Associated Physician Practices is amultiple site organization consisting of ambulatory clinics and hospital sitesin [place], [place], [place] and [place]. This disclosure is being madepursuant to the Care Everywhere program and may not contain all information available regarding this patient. Last updated 17.[facility] Anna Lozabai Allergies No known active allergies Medications * [...] of Treatment Not on file Care Teams Education Managers Relationship Specialty Start Date End Date Brandon Roberts MD [address] [place] [address] PCP - General 11/12/08
--- OUTSIDE RECORDS SUMMARY | 2024-04-30 13:31 | XMS_ITS | Clinical Summary ---
Author Organization [facility] Address [address] [facility] [place] [address] Care Team Providers Care Collateral Analyst Name Role Phone Brandon Roberts MD Primary Care Provider [phone] Source Comments [facility],non-owned Affiliates and Associated Physician Practices is amultiple site organization consisting of ambulatory clinics and hospital sitesin [place], [place], [place] and [place]. This disclosure is being madepursuant to the Care Everywhere program and may not contain all information available regarding this patient. Last updated 17.[facility] Allergies No known active allergies Medications * [...] - 1-dose 75+ series) 2012 COVID-19 VACCINE (2023-2 5 season) 2023 INFLUENZA VACCINE (#1) 2023 [...] to complete this topic MENINGOCOCCAL (Group B) VACC INE SHARED DECISION-MAKING Aged Out No longer eligibl e based on patient's age to complete this topic MENINGOCOCCAL GROUPS A/C/Y/W VACCINE Aged Out No longer eligible b ased on patient's age to complete this topic Care Teams Collateral Analyst Relationship Specialty Start Date End Date Brandon Roberts MD [address] [place] [id number] PCP - General 11/12/08
--- OUTSIDE RECORDS SUMMARY | 2024-04-30 13:31 | XMS_ITS | Encounter Summary ---
Author Organization [facility] Healthcare Address [address] [place] [address] Care Team Providers Care Corporate Financial Analyst Name Role Phone Oscar Carroll MD Unavailable + Oleg Marrero MD Unavailable [phone] Paulina Houser NP Primary Care Provider [phone] Reason for Referral * Cardiology (Routine) - Closed Specialty Diagnoses / Procedures Referred By Contcarolina t Referred To Contact Diagnoses Persistent atrial fibrillation (HCC) Procedures 48 [place] [address] [place] [address] Phone: tel: fax: [facility] Cardiology [address] [facility] [address] [place] [address] Phone: tel: fax: Referral ID Status Reason Start Date Expiration Date Visits Re quested Visits Authorized [id number] Closed 04/30/2024 05/30/2025 1 1 Reason for Visit * Reason Comments Follow-up 1 mo f/u Atrial Fibrillation Sleep Apnea Encounter Details Date Type Department Care Team (Latest Contact Info) Description 04/30/2024 11:00 AM CDT Office Visit [facility] Cardiology [address] [place] [address] Caridad Self MD [address] [facility] [address] [place] [address] Persistent atrial fibrillation (HCC) (Primary Dx); Chronic anticoagulation; Primary hypertension; Mixed hyperlipidemia Social History Tobacco Use Types Packs/Day Years Used Date Smoking Tobacco: Former Cigarettes 1 67.2 S tarted: 1957 Smokeless Tobacco: Never Comments:says [...] on file Legal Sex Female 12:02 PM [employer] Gender Identity Female 10/28/2019 5:35 PM CDT Sexual Orientation Straight 10/28/2019 5: 35 PM CDT documented as of this encounter Last Filed Vital Signs Vital Sign Reading Time Taken Comments Blood Pressure 104/62 04/30/2024 10:57 AM CDT Pulse 113 04/30/2024 10:57 AM CDT Temperature - - Respiratory Rate - - Oxygen Saturation 94% 04/30/2024 10:57 AM CDT Inhaled Oxygen Concentration - - Weight 90.7 kg (200 lb) 04/30/2024 10:57 AM CDT per pt Height 160 cm (5' 3 ) 04/30/2024 10:57 AM CDT Body Mass Index 35.43 04/30/2024 10:57 AM CDT documented in this encounter Progress Notes * Caridad Self MD - 04/30/2024 11:00 AM CDT CARDIOLOGY CLINIC NOTE CHIEF COMPLAINT / REASON FOR CONSULT: F/U HISTORY: Kanchan Abbott is a 88 y.o. female with the following history: Persistent atrial fibrillation. Diagnosed in January 2024. S/p EVY-guided DCCV on 01/23/2024. However, went back into atrial fibrillation shortly after cardioversion. Hypertension Hyperlipidemia Chronic hypoxic respiratory failure on home oxygen COPD MARC Hypothyroidism GERD Interim History: Since last visit, Karin was admitted to [facility] for fall, rib fracture, pneumothorax, COVID infection. I do not have those [facility] records available at this time for review. Now on BIPAP. Currently on 5 liters of oxygen. Karin has periods of shortness of breath. REVIEW OF SYSTEMS: GENERAL: As per HPI CVS: As per HPI HEME: No bruising, no bleeding PHYSICAL EXAMINATION: BP 104/62 (BP Location: Left arm, Patient Position: Sitting) Pulse 113 Ht 160 cm (5' 3 ) Wt 90.7 kg (200 lb) Comment: per pt SpO2 94% BMI 35.43 kg/m?? GENERAL: Alert, in no distress HEAD: Normocephalic and atraumatic EYES: Extra ocular movement intact ENT: Unremarkable NECK: Supple with midline trachea CHEST: On supplemental oxygen. Decreased breath sounds. CARDIAC: Tachycardic. Irregular rhythm. No appreciable murmur EXTREMITIES: + Mild lower extremity edema. Has compressions socks on. SKIN: Warm and dry NEURO: Alert and oriented x 3 CARDIAC IMAGING RESULTS REVIEW: Transthoracic Echocardiogram 01/21/2024: Left ventricular chamber dimension is normal. Left ventricular systolic function is normal, estimated at 60-65%. There is mildly increased left ventricular wall thickness. The left ventricular diastolic function is indeterminate. Right ventricular chamber dimension is mildly enlarged. Left atrial chamber dimension is severely enlarged. Right atrial chamber dimension is severely enlarged. There is mild mitral valve regurgitation. There is mild-moderate tricuspid regurgitation. Mild pulmonary hypertension, estimated pulmonary arterial systolic pressure is 42mmHg. There is mild pulmonic regurgitation. The aortic root size at the sinus of Valsalva is mildly dilated. Dilated inferior vena cava with <50% collapse upon inspiration consistent with elevated right atrial pressure, 15mmHg. ASSESSMENT/PLAN: Persistent atrial fibrillation. Diagnosed in January 2024. S/p EVY-guided DCCV on 01/23/2024. However, went back into atrial fibrillation shortly after cardioversion. 48 hour monitor to assess rate control for AFIB. Given severe biatrial enlargement, unlikely to maintain sinus rhythm, therefore, will opt for rate control strategy. We had planned to do Warfarin for her at last visit as she was unable to afford NOACs, [facility], therefore, will continue. Continue Toprol. Continue Amiodarone. Hypertension Continue Toprol, Lasix, Amlodipine. Hyperlipidemia Continue Atorvastatin. Given shortness of breath, will have her get 2V CXR done. Follow up with Pulmonary as well. Will obtain [facility] records and review her hospitalization. Caridad Self M.D., [facility] documented in this encounter Plan of Treatment Pending Results Name Type Priority Associated Diagnoses Date /Time 48 HR Holter Monitor Cardiac Services Routine Persistent atrial fibrillation (HCC) 04/30/2024 11:30 AM CDT Scheduled Orders Name Type Priority Associated Diagnoses Orde r Schedule 48 HR Holter Monitor Cardiac Services Routine Persistent atrial fibrillation (HCC) Expected: 04/30/2024, Expires: 04/30/2025 X-ray chest 2 views Imaging Schedule Routine, Read Routine (OP Routine) Persistent atrial fibrillation (HCC) Expected: 04/30/2024, Expires: 04/30/2025 documented as of this encounter Procedures Procedure Name Priority Date/Time Associated Diagnosis Comments ELECTROCARDIOGRAM REPORT Routine 025 11:28 AM CDT Persistent atrial fibrillation (HCC) documented in this encounter Results * Electrocardiogram Report (04/30/2024 11:28 AM CDT) Caridad Self MD ECG ORDERABLES Final R esult documented in this encounter Visit Diagnoses Diagnosis Persistent atrial fibrillation (HCC)- Primary Atrial fibrillation Chronic anticoagulation Encounter for long-term (current) use of anticoagulants Primary hypertension Unspecified essential hypertension Mixed hyperlipidemia documented in this encounter Discontinued Medications Medication Sig Discontinue Reason Start Date End Da te amiodarone (PACERONE) 200 mg tabletIndications:Ventric ular Rate Control in Atrial Fibrillation Take 2 tablets (400 mg total) by mouth 2 (two) times a day for 7 days, THEN 2 tablets (400 mg total) daily for 7 days, THEN 1 tablet (200 mg total) daily. Duplicate order 03/05/2024 04/30/2024 documented as of this encounter Historical Medications * This list may reflect changes made after this encounter. tuberculin (PPD) 5 tub. unit /0.1 mL injectionIndications: Delayed Hypersensitivity Skin Test for Tuberculin PPD Inject into the skin fluticasone-umeclidin -vilanter (Trelegy Ellipta) 100-62.5-25 mcg inhaler Inhale 1 puff daily senna (SENOKOT) 8.6 mg tablet Take 1 tablet by mouth daily pantoprazole DR (PROTONIX) 40 mg EC tablet Take 1 tablet (40 mg total) by mouth daily polyethylene glycol 3350 (MIRALAX ORAL) Take by mouth magnesium oxide 400 mg magnesium capsule Take by mouth loratadine (CLARITIN) 10 mg tablet Take 1 tablet (10 mg total) by mouth daily lidocaine (LIDODERM) 5 % Place 1 patch on the skin daily Remove & discard patch within 12 hours or as directed by MD. levalbuterol (XOPENEX) 1.25 mg/0.5 mL nebulizer solution Take 0.5 mL (1.25 mg total) by nebulization 3 (three) times a day apixaban (ELIQUIS) 5 mg tablet Take 1 tablet (5 mg total) by mouth 2 (two) times a day amiodarone (PACERONE) 200 mg tablet Take 1 tablet (200 mg total) by mouth daily acetaminophen (TYLENOL) 500 mg tablet Take 1 tablet (500 mg total) by mouth every 6 (six) hours as needed for pain added in this encounter Care Teams Corporate Financial Analyst Relationship Specialty Start Date End Date Paulina Houser NP [address] [place] [address] PCP - General Family Medicine 03/05/24 Oscar Carroll MD [address] [place] [address] Landfill Grader Gastroenterology 09/03/19 Oleg Marrero MD [address] [place] [address] Surgeon Colon and Rectal Surgery 10/13/19 documented as of this encounter
--- OUTSIDE RECORDS SUMMARY | 2024-04-30 13:31 | XMS_ITS | Encounter Summary ---
Author Organization [facility] Address [address] [place] [address] Care Team Providers Care Occupational Health Nurse Supervisor Name Role Phone Brandon Roberts MD Primary Care Provider [phone] Encounter Details Date Type Department Care Team (Late st Contact Info) Description 07/03/2022 Lab Requisition [facility] - DermPath Lab [address] [facility] [place] [address] Chikis Mendoza MD [address] [facility] [address] [place] [address] Social History Tobacco Use Types Packs/Day Years [...] AM CDT) Case Report Dermatopathology Report Case: [id number] Authorizing Provider: Chikis Mendoza MD Collected: 07/03/2022 11:35 AM Ordering Location: [facility] DermPath Lab Received: 07/03/2022 04:44 PM [...] of a non-oriented ellipse of skin measuring 67l95m85 mm. The epidermal surface is unremarkable. The [...] characteristic determined by the Dermatopathology Laboratory at [facility], directed by Dr. Leslye Thomas. These tests need not be, and therefore are not, approved by the [place] Food and Drug Administration. The tests are used for clinical purposes. Billing Codes Specimen Charges Stain Charges 33379 1 12:54 PM CDT DERMATOPATHOLOGY LABORATORY Embedded Images 12:54 PM CDT DERMATOPATHOLOGY LABORATORY Pathology/Cytolo gy TISSUE SPECIMEN FROM SKIN / Unknown 07/03/2022 11:35 AM CDT 07/03/2022 4:44 PM CDT Chikis Mendoza MD LAB - PATHOLOGY/CYTO LOGY ORDERABLES DERMATOPATHOLOGY LABORATORY [facility] - Department of Dermatology [address], [address] [phone] documented in this encounter Visit Diagnoses Not on filedocumented in this encounter Care Teams Occupational Health Nurse Supervisor Relationship Specialty [place] [address] [place] [phone] PCP - General 11/12/08 documented as of this encounter
--- OUTSIDE RECORDS SUMMARY | 2024-04-30 13:31 | XMS_ITS | Continuity of Care Document ---
Author Organization [facility] Address [address] [place] [address] [address] [place] [address] Phone Care Team Providers Care Employment Program Representative Name Role Phone Neelima London Unavailable Unavailable Procedures Procedure Date Eye Exam & Treatment Refraction Office/outpatient Visit, Est No Script Eye Exam Established Pt No Script Eye Exam Established Pt Advance Directives Directive Yes / No Effective Date File Name No Information Encounters Encounter Description Practice Location Reason(s) For Visit Diagnoses Date Provider Providers Copied on Encounter [facility], [address] [place] [address] [address], [place], [place], [id number], [place] tel:[phone] [facility] No Information 2-201 0 Lita Ortez. [address], [place], [place], [facility], . tel:[phone] Office/outpat ient Visit, Est [facility], [address] [place] [address] [address], [place], [place], [id number], [place] tel:[phone] [facility] No Information Sep-0 9-200 9 Ev Barrow. [address] [facility] [address], [place], [place], [facility], . tel:[phone] [facility], [address] [place] [address] [address], [place], [place], [id number], [place] tel:[phone] [facility] No Information Sep-0 2-200 9 Ev Barrow. [address] [facility], [place], [address], [place]. tel:[phone] [facility], [address], [place], [place], [id number], [place] tel:[phone] [facility] No Information 8 Smita Chopra. [address], [place], [address], [place]. tel:[phone] Family History Family Member Type Diagnosis Age At Onset No Information Payers Payer name Insurance type Covered republican ID Natachamaxine lornaobinna(s) [employer] Plan CI [id number] Social History Type Description Quantity Date Captured [...]
== END 2024-04-30 11:38 | disposition home or self-care (01) ==
PROVIDERS: PCP Nurse Practitioner Family; Visit Provider Internal Medicine
DX: J90 Pleural effusion, not elsewhere classified (principal); I48.19 Other persistent atrial fibrillation
CPT/HCPCS: 71046

== ENCOUNTER 2024-04-30 12:26 | Inpatient (IN) | payer MEDICARE, SELFPAY ==
[2024-04-30] VITALS (19 sets, daily range): BP systolic 110–129; BP diastolic 63–103; PULSE 93–120; RESP 20–32; TEMP 36.4–36.9; O2SAT 88–94; BMI 39.9
--- NOTE | ~2024-04-30 | XR_ITS ---
Portable chest x-ray Comparison: 04/30/2024 Clinical History: Fluid overload Findings: Moderate right pleural effusion and small left pleural effusion present. There is bibasila r pulmonary edema/atelectasis. Cardiomediastinal silhouette is stable. Bones and soft tissues are un remarkable. Impression: Bibasilar pulmonary edema/atelectasis with bilateral pleural effusions, as above. Stable cardiomegaly. Reviewed, dictated and finalized at location M. Impression: Bibasilar pulmonary edema/atelectasis with bilateral pleural effusions, as abov e. Stable cardiomegaly.
--- NOTE | ~2024-04-30 | XR_ITS ---
Clinical Indication: Pneumonia PA and lateral views of the chest: Comparison: 05/04/2024 Findings: There are small bilateral pleural effusions. There is bibasilar airspace disease. Cardiome diastinal silhouette is within normal limits. Bones and soft tissues are unremarkable. Impression: Small bilateral pleural effusions with probable bibasilar pulmonary edema/atelectasis. Correlate clin ically for pneumonia. Reviewed, dictated and finalized at location . Impression: Small bilateral pleural effusions with probable bibasilar pulmonary edema/atele ctasis. Correlate clinically for pneumonia.
--- NOTE | ~2024-04-30 | XR_ITS ---
EXAMINATION: [id number] DATE: 05/04/2024 09:53 INDICATION: Status post thoracentesis TECHNIQUE: frontal view of the chest was obtained. COMPARISON: Chest radiograph dated 05/04/2024 FINDINGS: Near complete resolution of prior right pleural effusion. Residual primarily linear opacity right low er lung zone atelectasis/scarring over pneumonia. Increased opacities in the left mid and lower lung zone consistent with increasing small left pleural effusion and associated atelectasis versus pneumon ia. No pneumothorax or evident pulmonary edema. Cardiomegaly. IMPRESSION: 1. No pneumothorax and near complete resolution of prior right pleural effusion post right thoracente sis. 2. Increasing small left pleural effusion. 3. Opacities in the left mid to lower and right lower lung zones which could represent atelectasis or pneumonia. 2. Cardiomegaly. Reviewed, dictated and finalized at location A. IMPRESSION: 1. No pneumothorax and near complete resolution of prior right pleural effusion post right thoracentesis. 2. Increasing small left pleural effusion. 3. Opacities in the left mid to lower and right lower lung zones which could re present atelectasis or pneumonia. 2. Cardiomegaly.
--- NOTE | ~2024-04-30 | US_ITS ---
EXAMINATION: US thoracentesis DATE: 05/04/2024 10:00 INDICATION: Right pleural effusion TECHNIQUE: The procedure and its risks and benefits were discussed with the patient. Potential risks discussed included bleeding, infection, and pneumothorax. The patient understood the risks and agreed to proceed. The skin was prepped and draped in sterile fashion. 1% lidocaine was used for local anes thesia. Under ultrasound guidance, a 5 Fr catheter with trochar was advanced into the larger right pl eural effusion. Fluid was aspirated. The catheter was removed, and a dressing was applied. There were no immediate complications. FINDINGS: Ultrasound images demonstrate a small right pleural effusion and the catheter within the fluid. Sligh tly smaller left pleural effusion is identified on technical mgr imaging. IMPRESSION: 1. Successful ultrasound-guided thoracentesis yielding 700 mL of [id number] fluid. Reviewed, dictated and finalized at location A. IMPRESSION: 1. Successful ultrasound-guided thoracentesis yielding 700 mL of reddish-orang e-colored fluid.
--- NOTE | 2024-04-30 13:38 | ECG_ITS ---
Test Date: 2024-04-30 14:04:06 Measurements Intervals [place] Rate: 124 P: 0 OK: 0 QRS: 21 QRSD: 92 T: 209 QT: 309 QTc: 445 Interpretive Statements ATRIAL FIBRILLATION WITH RAPID VENTRICULAR RESPONSE LOW QRS VOLTAGE IN EXTREMITY LEADS [QRS DEFLECTION < 0.5 mV IN LIMB LEADS] NONSPECIFIC ST AND T WAVE ABNORMALITY Compared to ECG 04/11/2024 23:03:49 NO SIGNIFICANT CHANGES Electronically Signed On 05-01-2024 16:42:10 CDT by Caridad Self M.D.
--- NOTE | 2024-04-30 13:41 | ED.SOB ---
HPI - SOB/Dyspnea General Chief Complaint: Shortness of Breath/Dyspnea Stated Complaint: Shortness of breath -80% O2 @ RA, 4l normally Time Seen by Provider: 04/30/24 14:05 Focused HPI: 88-year-old female with history of emphysema, CHF, chronic hypoxic respiratory failure, AFib on Eliquis presents to emergency department with granddaughter at bedside for increasing dyspnea and increased oxygen demand. Patient normally wears 3 L nasal cannula but has had increased her nasal cannula 5 L since this morning. She is reporting increased conversational and exertional dyspnea and cough. No fevers. She has had some left anterior inferior chest pain which she is attributing to physical therapy for the past 2 days. Patient states 2 days ago she was using rubber bands for chest and arm exercises since then has been having pain to this region, pain is improved with Tylenol. No aggravating factors. She denies abdominal pain, nausea vomiting, diarrhea. Endorses lower extremity edema which is unchanged from baseline. GENERAL: Well-appearing, well-nourished, and in no acute distress. HEAD: Normocephalic, atraumatic. CHEST: Conversational dyspnea. Decreased lung sounds in the right lower lung field. Very minimal wheezing to bilateral upper lung begum. No rales or rhonchi. BLE edema HEART: Regular rate and rhythm.? NEURO: ?Alert and oriented x3. Patient screened in triage and initial orders placed.? ?Additional care and disposition to be based upon?diagnostic testing and treatment. Related Data Home Medications ?Medication ?Instructions ?Recorded ?Confirmed ?Last Taken ?Type dupilumab 300 mg/2 mL subcutaneous 300 mg subcut .biweekly 03/02/19 03/27/24 Unknown History syringe (Dupixent) ascorbic acid (vitamin C) 1,000 mg 1 g PO DAILY 02/28/22 03/27/24 Unknown History capsule calcium carbonate (Calcium 600) 600 mg PO DAILY 05/07/22 03/27/24 Unknown History amiodarone 200 mg tablet 200 mg PO Q24H 03/27/24 03/27/24 Unknown History potassium chloride 20 mEq 20 meq PO BID 03/27/24 03/27/24 Unknown History tablet,extended release Allergies Allergy/AdvReac Type Severity Reaction Status Date / Time No Known Allergies Allergy Verified 04/30/24 12:36 [facility] Past Medical History Medical History Lump of right breast 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 Osteopenia Degenerative arthritis of knee, bilateral Basal cell carcinoma Vertigo Hearing loss Atrial tachycardia from anesthesia Blood in stool Bowel habit changes Hypothyroidism Varicose vein of leg COPD (chronic obstructive pulmonary disease) GERD (gastroesophageal reflux disease) Frequent headaches Afib Hyperlipidemia Hypertension Surgical History Surgical History History of colectomy H/O arthroscopy of knee both knees, meniscectomy History of foot surgery History of tonsillectomy Family History Family History Mother Family history of malignant neoplasm of breast in first degree relative Father Family history of throat cancer Family history of malignant neoplasm Other Family history of arthritis Social History Social History Social History: Patient stated she socially smokes. Smoking packs per day: 1 Smoking cigarettes per day: 20.0 Years smoked: 30 Smoking pack-years: 30.00 Smoking status: Former smoker Second hand tobacco smoke exposure: Yes Alcohol intake: never Substance use: never Substance use type: does not use Do You Feel Safe in your Home?: Yes Lack of Transportation: No Lack of Food: Never True Current Housing: I Have Housing Concerned About Future Housing: No Difficulty Paying Gas/Electric Bills: YES Difficulty Paying for Meds: No Currently Unemployed: No Education: High School Diploma/GED Difficulty w/ Childcare or Family Care: No Living arrangements: alone Occupation/Education: retired Gender identity (if verbalized by the patient): Female Spiritual care concerns: No Course Vital Signs Vital signs: Vital Signs Temperature 36.4 C 04/30/24 12:31 Pulse Rate 120 H 04/30/24 12:31 Respiratory Rate 25 H 04/30/24 12:31 Blood Pressure 123/63 04/30/24 12:31 Pulse Oximetry 93 04/30/24 12:31 Oxygen Delivery Nasal Cannula 04/30/24 12:31 Oxygen Flow Rate 4 04/30/24 12:31 Temperature 36.4 C 04/30/24 12:31 Pulse Rate 97 04/30/24 17:23 Respiratory Rate 27 H 04/30/24 16:24 Blood Pressure 125/73 04/30/24 16:24 Pulse Oximetry 92 04/30/24 16:24 Oxygen Delivery Nasal Cannula 04/30/24 15:44 Oxygen Flow Rate 4 04/30/24 15:44 MDM - SOB/Dyspnea Lab Data 04/30/24 14:11 04/30/24 14:11 Labs: Lab Results 04/30/24 04/30/24 Range/Units 14:06 14:11 WBC 10.4 H (4.5-10.0) K/mm3 RBC 4.34 (4.2-5.4) M/mm3 Hgb 12.4 (12.0-15.0) g/dL Hct 39.8 (37.0-47.0) % MCV 91.7 (80-100) fl MCH 28.6 (26-34) pg MCHC 31.2 L (32-36) g/dl RDW 15.8 H (11.5-14.5) % Plt Count 344 D (150-375) k/mm3 MPV 11.0 H (7.4-10.4) fl Immature Gran % (Auto) 0.6 H (0-0.5) % Neut % (Auto) 80.9 H (45.5-73.1) % Lymph % (Auto) 6.4 L (18.3-44.2) % [place] % (Auto) 11.5 H (2.6-8.5) % Eos % (Auto) 0.3 (0-4.4) % Baso % (Auto) 0.3 (0.2-1.2) % Lymph # (Auto) 0.67 L (0.9-3.2) K/mm3 [place] # (Auto) 1.2 H (0.1-0.6) K/mm3 Eos # (Auto) 0.0 (0-0.3) K/mm3 Baso # (Auto) 0.0 (0.0-0.1) K/mm3 Abs Immat Gran (auto) 0.06 H (0.00-0.031) K/mm3 Absolute Neuts (auto) 8.4 H (1.3-6.7) K/mm3 Absolute Nucleated RBC 0.000 (0.0-0.012) K/mm3 Nucleated RBC % 0.0 (0.0-0.2) % PT 21.6 H (11.1-14.7) Seconds INR 1.8 APTT 40.9 H (22.3-36.8) Seconds Sodium 137 (137-145) mmol/L Potassium 4.2 (3.4-5.0) mmol/L Chloride 98 (98-107) mmol/L Carbon Dioxide 27 (22-30) mmol/L Anion Gap 12 (4-12) mmol/L BUN 14 (7-17) mg/dL Creatinine 0.66 L (0.7-1.0) mg/dL Estim Creat Clear Calc Not Reportable Estimated GFR > 60 (59 - ) Glucose 125 H (65-110) mg/dL Calcium 8.7 (8.4-10.2) mg/dL Magnesium 1.8 (1.6-2.3) mg/dL Total Bilirubin 1.1 (0.2-1.3) mg/dL AST 19 (14-36) U/L ALT 21 (6-35) U/L Alkaline Phosphatase 137 H (38-126) U/L Troponin I < 0.012 (0.000-0.034) ng/mL NT-Pro-B Natriuret Pep 3800 H (19.9-100) pg/mL Total Protein 7.0 (6.3-8.2) g/dL Albumin 3.8 (3.5-5.1) g/dL Urine Color Yellow (Yellow) Urine Appearance Clear (Clear) Urine pH 7.0 (5.0-9.0) Ur Specific [place] 1.011 (1.001-1.035) Urine Protein Negative (Negative) mg/dL Urine Glucose (UA) Negative (Negative) mg/dL Urine Ketones Negative (Negative) mg/dL Ur Blood (Man) Negative (Negative) Urine Nitrate Negative (Negative) Urine Bilirubin Negative (Negative) Urine Urobilinogen 1.0 (<2.0) mg/dL Leukocyte Esterase Rfl Negative (Negative) FILIPPO/UL Influenza A (RT-PCR) Negative (Negative) Influenza B (RT-PCR) Negative (Negative) RSV (RT-PCR) Negative (Negative) SARS-CoV-2 RNA (RT-PCR) Negative (Negative) ABG Data ABG results: 04/30/24 14:00 Puncture Site Left radial ABG pH 7.438 ABG pCO2 43.8 ABG pO2 62.6 L ABG PO2/FiO2 Ratio 1.74 ABG HCO3 28.9 H ABG O2 Saturation 92.6 L ABG O2 Content 16.4 ABG Base Excess 4.2 A-a Gradient 143.3 Oxyhemoglobin 90.6 Total Hemoglobin 12.9 O2 Delivery Device Nasal cannula O2 Liters/Min 4.0 FiO2 36 Discharge Plan Discharge Clinical Impression: Acute and chronic respiratory failure with hypoxia, Atrial fibrillation with rapid ventricular response, CHF (congestive heart failure), Anxiety, COPD exacerbation Patient Disposition: Still a Patient Condition: Guarded Prognosis
--- OUTSIDE RECORDS SUMMARY | 2024-04-30 13:56 | XMS_ITS | Clinical Summary ---
Author Organization [facility] Address [address] [place] [address] Care Team Providers Care Cdl Service Technician Name Role Phone Brandon Roberts MD Primary Care Provider [phone] Source Comments [facility],non-owned Affiliates and Associated Physician Practices is amultiple site organization consisting of ambulatory clinics and hospital sitesin [place], [place], [place] and [place]. This disclosure is being madepursuant to the Care Everywhere program and may not contain all information available regarding this patient. Last updated 17.[facility] Allergies No known active allergies Medications * [...] age to complete this topic Care Teams Cdl Service Technician Relationship Specialty Start Date End Date Brandon Roberts MD [address] [place] [phone] PCP - General 11/12/08
--- OUTSIDE RECORDS SUMMARY | 2024-04-30 13:56 | XMS_ITS | Patient Health Summary ---
Author Organization [facility] Address [address] [facility] [place] [address] Care Team Providers Care Oracle Manager Name Role Phone Brandon Roberts MD Primary Care Provider [phone] Note from [facility],non-owned Affiliates and Associated Physician Practices is amultiple site organization consisting of ambulatory clinics and hospital sitesin [place], [place], [place] and [place]. This disclosure is being madepursuant to the Care Everywhere program and may not contain all information available regarding this patient. Last updated 17.[facility] Allergies No known active allergies Medications * [...] 06/19/2012) * CREATININE BLOOD - POCT (IP) [facility](Performed 02/18/1998) Results * DERMATOPATHOLOGY (08/12/2023 11:17 AM CDT) Only the most recent of4 resultswithin the time period is included. Case Report Dermatopathology Report Case: [id number] Authorizing Provider: Chikis Mendoza MD Collected: 08/12/2023 11:17 AM Ordering Location: [facility] - Received: 08/13/2023 01:05 PM [...] characteristic determined by the Dermatopathology Laboratory at [facility], directed by Dr. Leslye Thomas. These tests need not be, and therefore are not, approved by the [place] Food and Drug Administration. The tests are used for clinical purposes. Billing Codes Specimen Charges Stain Charges 95066 1 4 5:05 PM CDT DERMATOPATHOLOGY LABORATORY Embedded Images 4 5:05 PM CDT DERMATOPATHOLOGY LABORATORY Pathology/Cytolo gy TISSUE SPECIMEN FROM SKIN / Unknown 08/12/2023 11:17 AM CDT 08/13/2023 1:05 PM CDT Chikis Mendoza MD LAB - PATHOLOGY/CYTO LOGY ORDERABLES DERMATOPATHOLOGY LABORATORY [facility] - Department of Dermatology [address] [phone] * CT ANGIO BRAIN (06/19/2012 7:44 AM [...] ORDERABLES * CREATININE BLOOD - POCT (IP) [facility] (02/18/1998 12:00 AM QUALITY CONTROL INDUSTRIAL ENGINEER) Creatinine POCT 0.73 0.3 - 1.3 mg/dL [facility] eGFR POCT 60 60 ml/min [facility] 02/18/1998 Historical Provider LAB - POINT OF [place] RE ORDERABLES [facility] Care Teams Oracle Manager Relationship Specialty Start Date End Date Brandon Roberts MD [address] [place] [address] PCP - General 11/12/08
--- OUTSIDE RECORDS SUMMARY | 2024-04-30 13:56 | XMS_ITS | Referral Summary ---
Author Organization [facility] [employer] Address [address] [place] [address] Care Team Providers Care Splunk Consultant Name Role Phone Brandon Roberts MD Primary Care Provider [phone] Source Comments [facility],non-owned Affiliates and Associated Physician Practices is amultiple site organization consisting of ambulatory clinics and hospital sitesin [place], [place], [place] and [place]. This disclosure is being madepursuant to the Care Everywhere program and may not contain all information available regarding this patient. Last updated 17.[facility] [employer] Allergies No known active allergies Medications * [...] of Treatment Not on file Care Teams Splunk Consultant Relationship Specialty Start Date End Date Brandon Roberts MD [address] [place] [address] PCP - General 11/12/08
--- OUTSIDE RECORDS SUMMARY | 2024-04-30 13:56 | XMS_ITS | Clinical Summary ---
Author Organization [facility] Address [facility] [place] [address] Care Team Providers Care Prepress Manager Name Role Phone Roman Mancia Primary Care Provider [phone] Allergies No known active allergies Medications aspirin [...] TIMES DAILY NEEDED FOR DIZZINESS 1 Active Hunter 3 1200 MG Cap Take 2 tablets [...] on file Legal Sex Female 9:14 AM POWER SHOVEL OPERATOR HELPER Gender Identity Not on file Sexual Orientation Not on file Last Filed Vital Signs Vital Sign Reading Time Taken Comments Blood Pressure 168/86 04/21/2021 9:26 AM POWER SHOVEL OPERATOR HELPER Pulse 75 04/21/2021 9:26 AM POWER SHOVEL OPERATOR HELPER Temperature 36.9 C (98.4 F) 04/21/2021 9:26 AM POWER SHOVEL OPERATOR HELPER Respiratory Rate 16 04/21/2021 9:26 AM POWER SHOVEL OPERATOR HELPER Oxygen Saturation 92% 04/21/2021 9:26 AM POWER SHOVEL OPERATOR HELPER Inhaled Oxygen Concentration - - Weight 89.8 kg (198 lb) 04/21/2021 9:26 AM POWER SHOVEL OPERATOR HELPER Height 160 cm (5' 3 ) 04/21/2021 9:26 AM POWER SHOVEL OPERATOR HELPER Body Mass Index 35.07 04/21/2021 9:26 AM POWER SHOVEL OPERATOR HELPER Plan of Treatment Health Maintenance Due Date [...] Payer ID:[id number] (NAIC) Type:Not on file Address: [place] [id number] Care Teams Prepress Manager Relationship Specialty Start Date End Date Roman Mancia DO [address] [address] PCP - General INTERNAL MEDICINE 02/21/21
--- OUTSIDE RECORDS SUMMARY | 2024-04-30 13:56 | XMS_ITS | Continuity of Care Document ---
Author Organization [facility] Address [address] [place] [address] [address] [place] [address] Phone Care Team Providers Care Senior Contracts Administrator Name Role Phone Neelima London Unavailable Unavailable Procedures Procedure Date Eye Exam & Treatment Refraction Office/outpatient Visit, Est No Script Eye Exam Established Pt No Script Eye Exam Established Pt Advance Directives Directive Yes / No Effective Date File Name No Information Encounters Encounter Description Practice Location Reason(s) For Visit Diagnoses Date Provider Providers Copied on Encounter [facility], [address] [place] [address] [address], [place], [place], [id number], [place] tel:[phone] [facility] No Information 2-201 0 Lita Ortez. [address] [facility] [address] [place], [place], [place], [facility], . tel:[phone] Office/outpat ient Visit, Est [facility], [address] [place] [address] [address], [place], [place], [id number], [place] tel:[phone] [facility] No Information Sep-0 9-200 9 Ev Barrow. [address] [facility] [address], [place], [place], [facility], . tel:[phone] [facility], [address] [place] [address] [address], [place], [place], [id number], [place] tel:[phone] [facility] No Information Sep-0 2-200 9 Ev Barrow. [address] [facility] [address], [place], [address], [place]. tel:[phone] [facility] Eye [facility], [address], [place], [place], [id number], [place] tel:[phone] [facility] No Information 8 Smita Chopra. [address] [facility] [address], [place], [address], [place]. tel:[phone] Family History Family Member Type Diagnosis Age At Onset No Information Payers Payer name Insurance type Covered democrat ID Natachamaxine lornaobinna(s) [employer] Vision Plan CI [id number] Social History Type Description Quantity Date Captured [...]
--- OUTSIDE RECORDS SUMMARY | 2024-04-30 13:57 | XMS_ITS | Referral Summary ---
Author Organization [facility] Address [address] [place] [address] Care Team Providers Care Metrology Manager Name Role Phone Oscar Carroll MD Unavailable + Oleg Marrero MD Unavailable [phone] Paulina Houser NP Primary Care Provider [phone] Encounters Date Type Department Care Team Description 04/30/2024 11:35 AM CDT Ancillary Procedure [facility] Medical [facility] Cardiology [address] [place] [address] [place] [phone] Arrived 04/30/2024 11:00 AM CDT Office Visit [facility] Cardiology [address] [place] [address] [address] [place] [phone] Caridad Self MD Persistent atrial fibrillation (HCC) (Primary Dx); Chronic anticoagulation; Primary hypertension; Mixed hyperlipidemia 03/27/2024 Telephone [facility] Cardiology [address] [place] [address] [address] [place] [phone] Tequila Garza NP punctured lung; broken rib; warfarin therapy 03/26/2024 Anticoagulation Visit [facility] Cardiology [address] [place] [address] [address] [place] [phone] Teresa Snowden RN Atrial fibrillation, unspecified type (HCC) (Primary Dx) 03/26/2024 Telephone [place] [address] [place] [phone] Tequila Garza NP 03/26/2024 10:30 AM REFUSE AND RECYCLING WORKER Office Visit [place] [address] [place] [phone] Tequila Garza NP Persistent atrial fibrillation (HCC) (Primary Dx); Encounter for anticoagulation discussion and counseling; On amiodarone therapy; MARC (obstructive sleep apnea); Chronic obstructive pulmonary disease, unspecified COPD type (HCC); Edema, lower extremity 03/11/2024 Telephone [place] [address] [place] [phone] Caridad Self MD Med Refill 03/05/2024 Orders Only [place] [address] [place] [phone] Tequila Garza NP Persistent atrial fibrillation with rapid ventricular response (HCC) 03/05/2024 10:00 AM REFUSE AND RECYCLING WORKER Office Visit [place] [address] [place] [phone] Tequila Garza NP Persistent atrial fibrillation with rapid ventricular response (HCC) (Primary Dx); Chronic anticoagulation; History of cardioversion; MARC (obstructive sleep apnea); Chronic obstructive pulmonary disease, unspecified COPD type (HCC); Hospital discharge follow-up 02/20/2024 Telephone [place] [address] [place] [phone] Tequila Garza NP Medication Problem 02/20/2024 Orders Only [place] [address] [place] [phone] Teresa Tadeo MA 02/20/2024 Telephone [place] [address] [place] [phone] Tequila Garza NP Med Refill 02/18/2024 Orders Only [facility] Cardiology [address] [place] [address] Oxana Fragoso NP from Last [...] 1 tablet (75 mcg total) by mouth behavioral consultant before breakfast 0 11/29/19 18 Active dupilumab [...] (07/20/2020): Added automatically from request for surgery [id number] History of colon cancer 10/29/2019 Clostridium difficile infection 10/07/2019 Acute postoperative abdominal pain 09/23/2019 Malignant neoplasm of hepatic flexure 09/09/2019 Overview (09/09/2019): Added automatically from request for surgery [id number] Malignant neoplasm of transverse colon 0 Other [...] on file Legal Sex Female 12:02 PM REFUSE AND RECYCLING WORKER Gender Identity Female 10/28/2019 5:35 PM CDT [...] (HCC) ECG 12-LEAD Routine 03/26/2024 4:15 PM REFUSE AND RECYCLING WORKER ECG 12-LEAD Routine 03/05/2024 Persistent atrial fibrillation with rapid ventricular response (HCC) from Last 3 Months Results * Electrocardiogram Report (04/30/2024 11:28 AM CDT) us Caridad Self MD ECG ORDERABLES Final R esult * ECG 12 lead (03/26/2024 4:15 PM REFUSE AND RECYCLING WORKER) Tequila Garza NP ECG ORDERABLES Final Res ult * ECG 12 lead (03/05/2024) 03/05/2024 us Tequila Garza NP ECG ORDERABLES Edited Re sult - Final from Last 3 Months Insurance MEDICARE SOLUTIONS MEDICARE SOLUTIONS Advance Directives For more information, please contact: [phone] * Full Code (Latest Code Status on [...] Agents on File Name Relationship Healthcare Agent Relationsmo p Communication Dafne Manzo Daughter Health Care Agent Care Teams Metrology Manager Relationship Specialty Start Date End Date Paulina Houser NP [address] [place] [address] PCP - General Family Medicine 03/05/24 Oscar Carroll MD [address] [place] [address] Boiler/Chiller Operator Gastroenterology 09/03/19 Oleg Marrero MD [address] [place] [address] Surgeon Colon and Rectal Surgery 10/13/19
--- OUTSIDE RECORDS SUMMARY | 2024-04-30 13:57 | XMS_ITS | Encounter Summary ---
Author Organization [facility] Address [address] [facility] [place] [address] Care Team Providers Care Surface Boss Name Role Phone Brandon Roberts MD Primary Care Provider [phone] Encounter Details Date Type Department Care Team (Late st Contact Info) Description 07/03/2022 Lab Requisition [facility] - DermPath Lab [address] [facility], [place] [address] Chikis Mendoza MD [address] [facility] [address] [place] [address] Social History Tobacco Use Types Packs/Day Years [...] AM CDT) Case Report Dermatopathology Report Case: [id number] Authorizing Provider: Chikis Mendoza MD Collected: 07/03/2022 11:35 AM Ordering Location: [facility] Lab Received: 07/03/2022 04:44 [...] of a non-oriented ellipse of skin measuring [id number] mm. The epidermal surface is unremarkable. The [...] characteristic determined by the Dermatopathology Laboratory at [facility], directed by Dr. Lelsye Thomas. These tests need not be, and therefore are not, approved by the [place] Food and Drug Administration. The tests are used for clinical purposes. Billing Codes Specimen Charges Stain Charges 68273 1 12:54 PM CDT DERMATOPATHOLOGY LABORATORY Embedded Images 12:54 PM CDT DERMATOPATHOLOGY LABORATORY Pathology/Cytolo gy TISSUE SPECIMEN FROM SKIN / Unknown 07/03/2022 11:35 AM CDT 07/03/2022 4:44 PM CDT Chikis Mendoza MD LAB - PATHOLOGY/CYTO LOGY ORDERABLES DERMATOPATHOLOGY LABORATORY [facility] - Department of Dermatology [address] [phone] documented in this encounter Visit Diagnoses Not on filedocumented in this encounter Care Teams Surface Boss Relationship Specialty [place] [address] [place] [phone] PCP - General 11/12/08 documented as of this encounter
--- OUTSIDE RECORDS SUMMARY | 2024-04-30 13:57 | XMS_ITS | Encounter Summary ---
Author Organization [facility] Healthcare Address [address] [place] [address] Care Team Providers Care Note Teller Name Role Phone Oscar Carroll MD Unavailable + Oleg Marrero MD Unavailable [phone] Paulina Houser NP Primary Care Provider Reason for Visit * Cardiology (Routine) - Closed Specialty Diagnoses / Procedures Referred By Contcarolina t Referred To Contact Diagnoses Persistent atrial fibrillation (HCC) Procedures 48 HR Holter Monitor Caridad Self MD [address] [address] Phone: tel: fax: [facility] Cardiology [address] [place] [phone] Phone: tel: fax: Referral ID Status Reason Start Date Expiration Date Visits Re quested Visits Authorized [id number] Closed 04/30/2024 05/30/2025 1 1 Encounter Details Date Type Department Care Team (Late st Contact Info) Description 04/30/2024 11:35 AM CDT Ancillary Procedure [facility] Cardiology [address] [place] [phone] Arrived Social History Tobacco Use Types Packs/Day [...] on file Legal Sex Female 12:02 PM 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
--- OUTSIDE RECORDS SUMMARY | 2024-04-30 13:57 | XMS_ITS | Clinical Summary ---
Author Organization [facility] Address [address] [place] [address] Care Team Providers Care Linen Grader Name Role Phone Oscar Carroll MD Unavailable + Oleg Marrero MD Unavailable [phone] Paulina Houser NP Primary Care Provider [phone] Allergies No known active allergies Medications amLODIPine [...] 1 tablet (75 mcg total) by mouth electrode cleaner before breakfast 0 11/29/19 18 Active dupilumab [...] (07/20/2020): Added automatically from request for surgery [id number] History of colon cancer 10/29/2019 Clostridium difficile infection 10/07/2019 Acute postoperative abdominal pain 09/23/2019 Malignant neoplasm of hepatic flexure 09/09/2019 Overview (09/09/2019): Added automatically from request for surgery [id number] Malignant neoplasm of transverse colon 0 Other atopic dermatitis 02/26/2018 Pruritus, unspecified 02/26/2018 Venous barkley of lip 02/26/2018 Encounters Date Type Department Care Team Description 04/30/2024 11:35 AM CDT Ancillary Procedure [facility] Cardiology [address] [place] [address] [place] [phone] Arrived 04/30/2024 11:00 AM CDT Office Visit [place] [address] [place] [phone] Caridad Self MD Persistent atrial fibrillation (HCC) (Primary Dx); Chronic anticoagulation; Primary hypertension; Mixed hyperlipidemia 03/27/2024 Telephone [place] [address] [place] [address] [phone] Tequila Garza NP punctured lung; broken rib; warfarin therapy 03/26/2024 10:30 AM BUSHEL WORKER Office Visit [place] [address] [place] [address] [phone] Tequila Garza NP Persistent atrial fibrillation (HCC) (Primary Dx); Encounter for anticoagulation discussion and counseling; On amiodarone therapy; MARC (obstructive sleep apnea); Chronic obstructive pulmonary disease, unspecified COPD type (HCC); Edema, lower extremity 03/26/2024 Anticoagulation Visit [place] [address] [place] [address] [phone] Teresa Snowden RN Atrial fibrillation, unspecified type (HCC) (Primary Dx) 03/26/2024 Telephone [place] [address] [place] [address] [phone] Tequila Garza NP 03/11/2024 Telephone [place] [address] [place] [phone] Caridad Self MD Med Refill 03/05/2024 10:00 AM BUSHEL WORKER Office Visit [place] [address] [place] [address] [phone] Tequila Garza NP Persistent atrial fibrillation with rapid ventricular response (HCC) (Primary Dx); Chronic anticoagulation; History of cardioversion; MARC (obstructive sleep apnea); Chronic obstructive pulmonary disease, unspecified COPD type (HCC); Hospital discharge follow-up 03/05/2024 Orders Only [facility] Cardiology [address] [place] [phone] Tequila Garza NP Persistent atrial fibrillation with rapid ventricular response (HCC) 02/20/2024 Telephone [facility] Cardiology [address] [place] [phone] Tequila Garza NP Medication Problem 02/20/2024 Orders Only [address] [place] [phone] Teresa Tadeo MA 02/20/[address] [place] [phone] Tequila Garza NP Med Refill 02/18/2024 Orders Only [facility] Cardiology [address] [place] [address] [place] [phone] Oxana Fragoso NP from Last 3 Months Immunizations Immunization Administration Dates Next Due Pneumococcal Conjugate PCV 13 12/02/2017 Surgical History Surgery Date Site/Laterality Comments RI LIGJ DIVJ &/EXCJ VARICOSE VEIN CLUSTER 1 LEG Varicose Vein Ligation - (Added by TW Conv) RI TONSILLECTOMY PRIMARY/SECONDARY <AGE 14 Tonsillectomy - (Added [...] on file Legal Sex Female 12:02 PM BUSHEL WORKER Gender Identity Female 10/28/2019 5:35 PM [...] (HCC) ECG 12-LEAD Routine 03/26/2024 4:15 PM BUSHEL WORKER ECG 12-LEAD Routine 03/05/2024 Persistent atrial fibrillation with rapid ventricular response (HCC) from Last 3 Months Results * Electrocardiogram Report (04/30/2024 11:28 AM CDT) us Caridad Self MD ECG ORDERABLES Final R esult * ECG 12 lead (03/26/2024 4:15 PM BUSHEL WORKER) us Tequila Garza NP ECG ORDERABLES Final Res ult * ECG 12 lead (03/05/2024) 03/05/2024 Tequila Garza NP ECG ORDERABLES Edited Re sult - Final from Last 3 Months Insurance MEDICARE SOLUTIONS MEDICARE SOLUTIONS Advance Directives For more information, please contact: [phone] * Full Code (Latest Code Status on [...] Manzo Daughter Health Care Agent Care Teams Linen Grader Relationship Specialty Start Date End Date Paulina Houser NP [address] [place] [address] PCP - General Family Medicine 03/05/24 Oscar Carroll MD [address] [place] [address] Accounts Receivable Executive Gastroenterology 09/03/19 Oleg Marrero MD [address] [place] [address] Surgeon Colon and Rectal Surgery 10/13/19
--- OUTSIDE RECORDS SUMMARY | 2024-04-30 13:57 | XMS_ITS ---
Author Organization [facility] Address [address] [place] [address] Care Team Providers Care Parking Meter Mechanic Name Role Phone Oscar Carroll MD Unavailable + Oleg Marrero MD Unavailable Paulina Houser NP Primary Care Provider [phone] Active Problems Problem Noted Date Diagnosed Date Chronic anticoagulation 04/30/2024 Primary hypertension 04/30/2024 Mixed hyperlipidemia 04/30/2024 Atrial fibrillation 03/26/2024 Screening for malignant neoplasm of colon 2020 Overview (07/20/2020): Added automatically from request for surgery [id number] History of colon cancer 10/29/2019 Clostridium difficile infection 10/07/2019 Acute postoperative abdominal pain 09/23/2019 Malignant neoplasm of hepatic flexure 09/09/2019 Overview (09/09/2019): Added automatically from request for surgery [id number] Malignant neoplasm of transverse colon 0 Other [...] from the original note were not included. [facility] [address] [place] [address] This Survivorship Care Plan is a cancer [...] Information: Primary Care Physician Roman Mancia DO [phone] Surgeon Oleg Marrero MD Radiation Oncologist Medical Oncologist Cotton Picking Machine Operator Ocsar Bill MD Treatment Summary Cancer Diagnosis Information [...] valrubicin, doxorub icin isotoxic equivalent Research Studies [facility] DIGESTIVE DISEASES [facility] [...] Medical oncology and Surgeon if both are [facility] Physicians) History and Physical every 3 months [...] Help learning to eat healthier, call the clinical asst at: [facility] . Have an active lifestyle, strive [...] physician. Resources you may be interested in: [facility] ([facility]) Cancer [place] A National Cancer Jesse [facility] http://www.[facility]/ [facility] Information Center 1st floor of [facility] [phone]. Computer access, educational material, counseling services (FREE) United Ostomy Association: the place for ostomy resources, advocacy, and support. www.ostomy.org The ostomy nurse at [facility] can be reached at [phone] Online Resources: www.cancer.net; http://www.cdc.gov/cancer/survivorship; http://www.cancercare.org/tagged/post-treatment_survivorship; http://www.cancer.gov/about-cancer/coping/survivorship [employer]: https://survivorship.cancer.gov/ an online tool for cancer survivors andcaregivers created by the [place] [employer] and the National Cancer Jesse. It provides: Information on dealing with side effects from cancer and treatment Caregivers with support and resources Practical advice about talking to friends and family about cancer Questions to ask their health care team Help understanding their rights in the workplace
--- OUTSIDE RECORDS SUMMARY | 2024-04-30 13:57 | XMS_ITS | Encounter Summary ---
Author Organization [facility] Address [address] [place] [address] Care Team Providers Care Livestock Farmer Name Role Phone Brandon Roberts MD Primary Care Provider [phone] Encounter Details Date Type Department Care Team (Late st Contact Info) Description 08/12/2023 Lab Requisition [facility] - DermPath Lab [address] [facility], [place] [address] Chikis Mendoza MD [address] [facility] [address] [place] [address] Social History Tobacco Use Types Packs/Day Years [...] AM CDT) Case Report Dermatopathology Report Case: [id number] Authorizing Provider: Chikis Mendoza MD Collected: 08/12/2023 11:17 AM Ordering Location: [facility] - Received: [...] characteristic determined by the Dermatopathology Laboratory at [facility], directed by Dr. Leslye Thomas. These tests need not be, and therefore are not, approved by the [place] Food and Drug Administration. The tests are used for clinical purposes. Billing Codes Specimen Charges Stain Charges 92199 1 5:05 PM CDT DERMATOPATHOLOGY LABORATORY Embedded Images 5:05 PM CDT DERMATOPATHOLOGY LABORATORY Pathology/Cytolo gy TISSUE SPECIMEN FROM SKIN / Unknown 08/12/2023 11:17 AM CDT 08/13/2023 1:05 PM CDT Chikis Mendoza MD LAB - PATHOLOGY/CYTO LOGY ORDERABLES DERMATOPATHOLOGY LABORATORY [facility] - Department of Dermatology [facility] Medicine [address] [place] [address], [address] [phone] documented in this encounter Visit Diagnoses Not on filedocumented in this encounter Care Teams Livestock Farmer Relationship Specialty [place] [address] [place] [phone] PCP - General 11/12/08 documented as of this encounter
--- OUTSIDE RECORDS SUMMARY | 2024-04-30 13:57 | XMS_ITS | Encounter Summary ---
Author Organization [facility] Healthcare Address [address] [place] [address] Care Team Providers Care Manager Assisted Living Name Role Phone Oscar Carroll MD Unavailable + Oleg Marrero MD Unavailable [phone] Paulina Houser NP Primary Care Provider Reason for Referral * Cardiology (Routine) - Closed Specialty Diagnoses / Procedures Referred By Contcarolina t Referred To Contact Diagnoses Persistent atrial fibrillation (HCC) Procedures 48 [place] [address] [place] [address] Phone: tel: fax: [facility] Group Cardiology [address] [facility] [address] [place] [address] Phone: tel: fax: Referral ID Status Reason Start Date Expiration Date Visits Re quested Visits Authorized [id number] Closed 04/30/2024 05/30/2025 1 1 Reason for Visit * Reason Comments Follow-up 1 mo f/u Atrial Fibrillation Sleep Apnea Encounter Details Date Type Department Care Team (Latest Contact Info) Description 04/30/2024 11:00 AM CDT Office Visit [facility] Cardiology [address] [place] [phone] Caridad Self MD [address] [facility] [address] [place] [address] Persistent atrial fibrillation (HCC) (Primary Dx); [...] on file Legal Sex Female 12:02 PM SODA DIALYZER Gender Identity Female 10/28/2019 5:35 PM CDT [...] Since last visit, Karin was admitted to [facility] for fall, rib fracture, pneumothorax, COVID infection. I do not have those [facility] records available at this time for review. [...] she was unable to [facility], [facility], therefore, will continue. Continue Toprol. Continue Amiodarone. Hypertension Continue Toprol, Lasix, Amlodipine. Hyperlipidemia Continue Atorvastatin. Given shortness of breath, will have her get 2V CXR done. Follow up with Pulmonary as well. Will obtain [facility] records and review her hospitalization. Caridad Self M.D., [facility] documented in this encounter Plan of Treatment [...] pain added in this encounter Care Teams Manager Assisted Living Relationship Specialty Start Date End Date Paulina Houser NP [address] [place] [address] PCP - General Family Medicine 03/05/24 Oscar Carroll MD [address] [place] [address] Assembler Faucets Gastroenterology 09/03/19 Oleg Marrero MD [address] [place] [address] Surgeon Colon and Rectal Surgery 10/13/19 documented as of this encounter
[2024-04-30] MEDS: IPRATROPIUM 0.5 MG/ALBUTEROL SULFATE 2.5 MG AMPUL.NEB 3 ML INHALATION ×4 (13:58→19:50)
--- NOTE | 2024-04-30 14:08 | ED_ITS ---
HPI - SOB/Dyspnea General Chief Complaint: Shortness of Breath/Dyspnea Stated Complaint: Shortness of breath -80% O2 @ RA, 4l normally Time Seen by Provider: 04/30/24 14:05 Source: patient Mode of arrival: ambulatory Limitations: no limitations History of Present Illness HPI Narrative: 88 YEARS OLD WHITE FEMALE CAME FROM REHAB WITH HER DAUGHTER COMPLAINING OF SHORTNESS OF BREATH FOR MONTHS, GOT WORSE OVER THE LAST COUPLE DAYS, WAS SEEN BY HER MOVIE EDITOR AND HER PAPER CONE MACHINE OPERATOR TODAY THEN REFERRED TO THE EMERGENCY ROOM FOR FURTHER EVALUATION. HISTORY OF COPD, CONGESTIVE HEART FAILURE, ATRIAL FIBRILLATION, PATIENT ON CHRONIC OXYGEN 3 L BY NASAL CANNULA. PATIENT TESTED POSITIVE FOR COVID 3 WEEKS AGO PATIENT CURRENTLY ON ELIQUIS Related Data Home Medications ?Medication ?Instructions ?Recorded ?Confirmed ?Last Taken ?Type dupilumab 300 mg/2 mL subcutaneous 300 mg subcut .biweekly 03/02/19 03/27/24 Unknown History syringe (Dupixfinalsite) ascorbic acid (vitamin C) 1,000 mg 1 g PO DAILY 02/28/22 03/27/24 Unknown History capsule calcium carbonate (Calcium 600) 600 mg PO DAILY 05/07/22 03/27/24 Unknown History amiodarone 200 mg tablet 200 mg PO Q24H 03/27/24 03/27/24 Unknown History potassium chloride 20 mEq 20 meq PO BID 03/27/24 03/27/24 Unknown History tablet,extended release Allergies Allergy/AdvReac Type Severity Reaction Status Date / Time No Known Allergies Allergy Verified 04/30/24 12:36 Review of Systems 2 Review of Systems: All systems reviewed & are unremarkable except as noted in HPI and below PMFSH Past Medical History Medical History Lump of right breast 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 Osteopenia Degenerative arthritis of knee, bilateral Basal cell carcinoma Vertigo Hearing loss Atrial tachycardia from anesthesia Blood in stool Bowel habit changes Hypothyroidism Varicose vein of leg COPD (chronic obstructive pulmonary disease) GERD (gastroesophageal reflux disease) Frequent headaches Afib Hyperlipidemia Hypertension Surgical History Surgical History History of colectomy H/O arthroscopy of knee both knees, meniscectomy History of foot surgery History of tonsillectomy Family History Family History Mother Family history of malignant neoplasm of breast in first degree relative Father Family history of throat cancer Family history of malignant neoplasm Other Family history of arthritis Social History Social History Social History: Patient stated she socially smokes. Smoking packs per day: 1 Smoking cigarettes per day: 20.0 Years smoked: 30 Smoking pack-years: 30.00 Smoking status: Former smoker Second hand tobacco smoke exposure: Yes Alcohol intake: never Substance use: never Substance use type: does not use Do You Feel Safe in your Home?: Yes Lack of Transportation: No Lack of Food: Never True Current Housing: I Have Housing Concerned About Future Housing: No Difficulty Paying Gas/Electric Bills: YES Difficulty Paying for Meds: No Currently Unemployed: No Education: High School Diploma/GED Difficulty w/ Childcare or Family Care: No Living arrangements: alone Occupation/Education: retired Gender identity (if verbalized by the patient): Female Spiritual care concerns: No Exam 2 Narrative: GENERAL APPEARANCE: WELL-DEVELOPED, WELL-NOURISHED SKIN: NORMAL COLOR, 3+ EDEMA LOWER EXTREMITY BILATERALLY HEAD: NORMOCEPHALIC, NONTRAUMATIC EYES: CLEAR CONJUNCTIVA ENT: OROPHARYNX NORMAL, EARS NORMAL, NOSE NORMAL NECK: SUPPLE, NONTENDER CHEST AND RESPIRATORY: DIMINUTION OF AIR ENTRY BILATERALLY, SCATTERED WHEEZING AND RHONCHI HEART: IRREGULAR IRREGULARITY, TACHYCARDIA ABDOMEN: SOFT, NONTENDER, NO ORGANOMEGALY, QUIET BOWEL SOUNDS VASCULAR: NORMAL PERIPHERAL PULSES, NORMAL CAPILLARY REFILL. MUSCULOSKELETAL: NORMAL RANGE OF MOTION, NONTENDER BACK NEUROLOGIC: ALERT AND ORIENTED ?3, HOTEL MAINTENANCE TECHNICIAN IS NORMAL TESTED, NO GROSS MOTOR DEFICIT Course Consultations Consultation #1: CARDIOLOGYNANCY FOR DR. JOE Date: 04/30/24 Consultation #2: DR LUTHER Date: 04/30/24 Vital Signs Vital signs: Vital Signs Temperature 36.4 C 04/30/24 12:31 Pulse Rate 120 H 04/30/24 12:31 Respiratory Rate 25 H 04/30/24 12:31 Blood Pressure 123/63 04/30/24 12:31 Pulse Oximetry 93 04/30/24 12:31 Oxygen Delivery Nasal Cannula 04/30/24 12:31 Oxygen Flow Rate 4 04/30/24 12:31 Temperature 36.4 C 04/30/24 12:31 Pulse Rate 119 H 04/30/24 15:47 Respiratory Rate 24 H 04/30/24 15:47 Blood Pressure 121/70 04/30/24 15:47 Pulse Oximetry 93 04/30/24 15:47 Oxygen Delivery Nasal Cannula 04/30/24 15:44 Oxygen Flow Rate 4 04/30/24 15:44 MDM - SOB/Dyspnea MDM Narrative Medical decision making narrative: PATIENT PRESENTS WITH SHORTNESS OF BREATH VITAL SIGNS SHOWING HEART RATE 120 AFIB WITH RVR, RESPIRATORY RATE 25, PATIENT ON 4 L OF OXYGEN WITH SATURATION 93% PHYSICAL EXAMINATION CONSISTENT WITH AFIB WITH RVR, SCATTERED WHEEZING AND RHONCHI BILATERALLY, 3+ EDEMA BILATERALLY DIFFERENTIAL DIAGNOSIS INCLUDES ACUTE ON CHRONIC RESPIRATORY FAILURE, PNEUMONIA, CHF, COPD EXACERBATION, AFIB WITH RVR BLOOD WORKUP TODAY INCLUDES CBC, CMP, TROPONIN, BNP SHOWED WBC OF 10.4, NEUTROPHILS 80.9, LYMPHOCYTE 6.4 INR 1.8, BMP 3800 ABG ON 3 L SHOWED PH 7.4, PC O2 43.8 PO2 62.6, SATURATION ON 3 L 92.6% URINALYSIS SHOWED NO EVIDENCE OF INFECTION CHEST X-RAY SHOWED LARGE BILATERAL PLEURAL EFFUSION, RIGHT GREATER THAN LEFT INTERVAL INCREASE FROM PRIOR Differential Diagnosis Differential diagnosis: Likely other ( ABOVE) Medical Records Attestation: I reviewed the patient's medical records. Lab Data Attestation: I reviewed the patient's lab results. 04/30/24 14:11 04/30/24 14:11 Labs: Lab Results 04/30/24 04/30/24 Range/Units 14:06 14:11 WBC 10.4 H (4.5-10.0) K/mm3 RBC 4.34 (4.2-5.4) M/mm3 Hgb 12.4 (12.0-15.0) g/dL Hct 39.8 (37.0-47.0) % MCV 91.7 (80-100) fl MCH 28.6 (26-34) pg MCHC 31.2 L (32-36) g/dl RDW 15.8 H (11.5-14.5) % Plt Count 344 D (150-375) k/mm3 MPV 11.0 H (7.4-10.4) fl Immature Gran % (Auto) 0.6 H (0-0.5) % Neut % (Auto) 80.9 H (45.5-73.1) % Lymph % (Auto) 6.4 L (18.3-44.2) % [place] % (Auto) 11.5 H (2.6-8.5) % Eos % (Auto) 0.3 (0-4.4) % Baso % (Auto) 0.3 (0.2-1.2) % Lymph # (Auto) 0.67 L (0.9-3.2) K/mm3 [place] # (Auto) 1.2 H (0.1-0.6) K/mm3 Eos # (Auto) 0.0 (0-0.3) K/mm3 Baso # (Auto) 0.0 (0.0-0.1) K/mm3 Abs Immat Gran (auto) 0.06 H (0.00-0.031) K/mm3 Absolute Neuts (auto) 8.4 H (1.3-6.7) K/mm3 Absolute Nucleated RBC 0.000 (0.0-0.012) K/mm3 Nucleated RBC % 0.0 (0.0-0.2) % PT 21.6 H (11.1-14.7) Seconds INR 1.8 APTT 40.9 H (22.3-36.8) Seconds Sodium 137 (137-145) mmol/L Potassium 4.2 (3.4-5.0) mmol/L Chloride 98 (98-107) mmol/L Carbon Dioxide 27 (22-30) mmol/L Anion Gap 12 (4-12) mmol/L BUN 14 (7-17) mg/dL Creatinine 0.66 L (0.7-1.0) mg/dL Estim Creat Clear Calc Not Reportable Estimated GFR > 60 (59 - ) Glucose 125 H (65-110) mg/dL Calcium 8.7 (8.4-10.2) mg/dL Magnesium 1.8 (1.6-2.3) mg/dL Total Bilirubin 1.1 (0.2-1.3) mg/dL AST 19 (14-36) U/L ALT 21 (6-35) U/L Alkaline Phosphatase 137 H (38-126) U/L Troponin I < 0.012 (0.000-0.034) ng/mL NT-Pro-B Natriuret Pep 3800 H (19.9-100) pg/mL Total Protein 7.0 (6.3-8.2) g/dL Albumin 3.8 (3.5-5.1) g/dL Urine Color Yellow (Yellow) Urine Appearance Clear (Clear) Urine pH 7.0 (5.0-9.0) Ur Specific [place] 1.011 (1.001-1.035) Urine Protein Negative (Negative) mg/dL Urine Glucose (UA) Negative (Negative) mg/dL Urine Ketones Negative (Negative) mg/dL Ur Blood (Man) Negative (Negative) Urine Nitrate Negative (Negative) Urine Bilirubin Negative (Negative) Urine Urobilinogen 1.0 (<2.0) mg/dL Leukocyte Esterase Rfl Negative (Negative) FILIPPO/UL Influenza A (RT-PCR) Negative (Negative) Influenza B (RT-PCR) Negative (Negative) RSV (RT-PCR) Negative (Negative) SARS-CoV-2 RNA (RT-PCR) Negative (Negative) ABG Data ABG results: 04/30/24 14:00 Puncture Site Left radial ABG pH 7.438 ABG pCO2 43.8 ABG pO2 62.6 L ABG PO2/FiO2 Ratio 1.74 ABG HCO3 28.9 H ABG O2 Saturation 92.6 L ABG O2 Content 16.4 ABG Base Excess 4.2 A-a Gradient 143.3 Oxyhemoglobin 90.6 Total Hemoglobin 12.9 O2 Delivery Device Nasal cannula O2 Liters/Min 4.0 FiO2 36 Imaging Data My impression: CHEST X-RAY TODAY SHOWED LARGE BILATERAL PLEURAL EFFUSIONS, RIGHT GREATER THAN LEFT, INTERVAL INCREASE FROM PRIOR ECG Data EKG #1: Attestation: I personally reviewed and interpreted this ECG as follows: ECG completion date: 04/30/24 ECG completion time: 15:15 Interpretation: AFIB WITH RVR AT 124 BEATS PER MINUTE, LOW QRS VOLTAGE, ABNORMAL ST T-WAVE ABNORMALITY, ABNORMAL EKG Critical Care Time Critical Care Time Critical Care Time: Yes Total Critical Care Time: 30 Discharge Plan Discharge Clinical Impression: Acute and chronic respiratory failure with hypoxia, Atrial fibrillation with rapid ventricular response, CHF (congestive heart failure), Anxiety, COPD exacerbation Patient Disposition: Still a Patient Condition: Guarded Prognosis Patient Language: Nepalese Prescriptions: No Action ascorbic acid (vitamin C) 1,000 mg capsule 1 g PO DAILY calcium carbonate [Calcium 600] 600 mg calcium (1,500 mg) tablet 600 mg PO DAILY fluticasone propion-salmeterol [Wixela Inhub] 100-50 mcg/dose blister with device 1 inh inhalation Q12H Qty: 60 2RF buspirone 5 mg tablet 5 mg PO BID Qty: 60 2RF amiodarone 200 mg tablet 200 mg PO Q24H potassium chloride 20 mEq tablet extended release 20 meq PO BID sennosides-docusate sodium [Senokot-S] 8.6-50 mg Tablet 2 tab-cap PO BID PRN (Reason: Constipation) Qty: 10 0RF levalbuterol HCl 1.25 mg/3 mL Solution For Nebulization 0.63 mg inhalation Q6HRT PRN (Reason: Shortness Of Breath Or Wheezing) Qty: 90 0RF Trelegy Ellipta 100-62.5-25 mcg Blister With Device 1 inh inhalation DAILYRT Qty: 1 0RF lidocaine [Lidoderm] 5 % Adhesive Patch,Medicated 1 patch transdermal DAILY Qty: 15 0RF loratadine [Allergy Relief (loratadine)] 10 mg tablet 10 mg PO DAILY Qty: 30 0RF magnesium oxide 400 mg (241.3 mg magnesium) Tablet 400 mg PO QAM Qty: 30 0RF pantoprazole 40 mg Tablet,Delayed Release (Dr/Ec) 40 mg PO QAM Qty: 30 0RF melatonin 5 mg Tablet 5 mg PO HS Qty: 30 0RF Eliquis 2.5 mg tablet 2.5 mg PO BID Qty: 60 0RF furosemide 40 mg Tablet 40 mg PO DAILY Qty: 30 0RF atorvastatin 40 mg Tablet 40 mg PO DAILY Qty: 30 0RF metoprolol succinate 50 mg Tablet Extended Release 24 Hr 50 mg PO QAM Qty: 30 0RF Dupixent Syringe 300 mg/2 mL syringe 300 mg SUB-Q .biweekly amlodipine 5 mg tablet See Rx Instructions .ROUTE .COMPLEX Qty: 90 0RF Dose Instruction: TAKE 1 TABLET BY MOUTH DAILY Rx Instructions: TAKE 1 TABLET BY MOUTH DAILY levothyroxine 75 mcg tablet See Rx Instructions .ROUTE .COMPLEX Qty: 90 0RF Dose Instruction: TAKE 1 TABLET BY MOUTH DAILY Rx Instructions: TAKE 1 TABLET BY MOUTH DAILY Follow-up/Referrals: Paulina Houser APRN [Primary Care Provider] -
[2024-04-30 14:12] LABS: Alveolar/Arterial O2 Gradient 143.3 mmHg; Base Excess ABG 4.2 mEq/l (+/-2.0); Device NASAL CANNULA; Fractional Inspired Oxygen 36 %; HCO3 ABG 28.9 mEq/l (22.0-26.0); Modified Allen's Test Pass; Oxygen Content ABG 16.4 %vol (16.0-22.0); Oxygen Saturation ABG 92.6 % (95.0-100.0); Oxyhemoglobin 90.6 % THb (90.0-100.0); PCO2 ABG 43.8 mmHg (35.0-45.0); PO2 ABG 62.6 mmHg (80.0-100.0); PO2 FiO2 Ratio Arterial Blood 1.74 %; Site Drawn LEFT RADIAL; Total Hemoglobin 12.9 g/dL (12.0-18.0); pH ABG 7.438 (7.350-7.450)
[2024-04-30 14:15] LABS: Add Urine Microscopic? NO; Appearance Urine Clear (Clear); Bilirubin Urine Negative (Negative); Blood Urine Negative (Negative); Color Urine Yellow (Yellow); Glucose Urine UA Negative (Negative); Ketones Urine Negative (Negative); Leukocyte Esterase Ur Negative LEU/UL (Negative); Nitrate Urine Negative (Negative); Protein Urine Negative (Negative); Specific Grav Ur 1.011 (1.001-1.035)
[2024-04-30] MEDS: methylPREDNISolone SOD SUCC 125 MG VIAL IV PUSH (14:28)
[2024-04-30] MEDS: dilTIAZem HCl INJ 25 MG/5 ML VIAL 10 MG IV PUSH ×2 (14:28→15:41)
[2024-04-30] MEDS: dilTIAZem 100 MG/100 ML 100 MG/100 ML BAG IV CONT (14:30)
[2024-04-30 14:31] LABS: Basophils Percent Auto 0.3 % (0.2-1.2); Eosinophils Percent Auto 0.3 % (0-4.4); Hematocrit 39.8 % (37.0-47.0); Hemoglobin 12.4 g/dL (12.0-15.0); Immature Granulocyte Absolute 0.06 K/mm3 (0.00-0.031); Immature Granulocyte Percent A 0.6 % (0-0.5); Lymphocytes Absolute Auto 0.67 K/mm3 (0.9-3.2); Lymphocytes Percent Auto 6.4 % (18.3-44.2); Mean Corpuscular HGB Conc 31.2 g/dl (32-36); Mean Corpuscular Hemoglobin 28.6 pg (26-34); Mean Corpuscular Volume 91.7 fl (80-100); Monocytes Absolute Auto 1.2 K/mm3 (0.1-0.6); Monocytes Percent Auto 11.5 % (2.6-8.5); Neutrophils Absolute Auto 8.4 K/mm3 (1.3-6.7); Neutrophils Percent Auto 80.9 % (45.5-73.1); Platelet Count Result 344 k/mm3 (150-375); Red Blood Count 4.34 M/mm3 (4.2-5.4); Red Cell Distribution Width 15.8 % (11.5-14.5); White Blood Count 10.4 K/mm3 (4.5-10.0)
[2024-04-30 14:42] LABS: INR 1.8; Prothrombin Time 21.6 Seconds (11.1-14.7)
[2024-04-30 14:43] LABS: Partial Thromboplastin Time 40.9 Seconds (22.3-36.8)
[2024-04-30 14:46] LABS: Alanine Aminotransferase 21 U/L (6-35); Albumin Level 3.8 g/dL (3.5-5.1); Alkaline Phosphatase 137 U/L (38-126); Anion Gap 12 mmol/L (4-12); Aspartate Amino Transferase 19 U/L (14-36); Bilirubin,Total 1.1 mg/dL (0.2-1.3); Blood Urea Nitrogen 14 mg/dL (7-17); Calcium 8.7 mg/dL (8.4-10.2); Carbon Dioxide 27 mmol/L (22-30); Chloride 98 mmol/L (98-107); Estimated Glomerular Filt Rate > 60; Glucose 125 mg/dL (65-110); Magnesium 1.8 mg/dL (1.6-2.3); Potassium 4.2 mmol/L (3.4-5.0); Sodium 137 mmol/L (137-145)
[2024-04-30 14:50] LABS: Influenza A QL RT-PCR Negative (Negative); Influenza B QL RT-PCR Negative (Negative); RSV RNA, RT-PCR Negative (Negative); SARS-CoV-2 RNA PCR Negative (Negative)
[2024-04-30 14:57] LABS: NT Pro B Type Natriuretic Pept 3800 pg/mL (19.9-100); Troponin I < 0.012 ng/mL (0.000-0.034)
--- NOTE | 2024-04-30 15:06 | PC.NURSE ---
contacted [facility] per request from Dr. Sapp. while on the phone, transfer center informed us that they are at capacity but patient can be put on the waitlist. per Dr. Sapp, place patient on waitlist.
--- OUTSIDE RECORDS SUMMARY | 2024-04-30 16:10 | XMS_ITS | Encounter Summary ---
Author Organization [facility] Address [address] [place] [address] Care Team Providers Care Advanced Manufacturing Vice President Name Role Phone Brandon Roberts MD Primary Care Provider [phone] Encounter Details Date Type Department Care Team (Late st Contact Info) Description 08/12/2023 Lab Requisition [facility] - DermPath Lab [address] [facility], [place] [address] Chikis Mendoza MD [address] [facility] [address] [place] [address] Social History Tobacco Use Types Packs/Day Years [...] AM CDT) Case Report Dermatopathology Report Case: [id number] Authorizing Provider: Chikis Mendoza MD Collected: 08/12/2023 11:17 AM Ordering Location: [facility] - Received: 08/13/2023 01:05 [...] characteristic determined by the Dermatopathology Laboratory at [facility], directed by Dr. Leslye Thomas. These tests need not be, and therefore are not, approved by the [place] Food and Drug Administration. The tests are used for clinical purposes. Billing Codes Specimen Charges Stain Charges 04184 1 5:05 PM CDT DERMATOPATHOLOGY LABORATORY Embedded Images 5:05 PM CDT DERMATOPATHOLOGY LABORATORY Pathology/Cytolo gy TISSUE SPECIMEN FROM SKIN / Unknown 08/12/2023 11:17 AM CDT 08/13/2023 1:05 PM CDT Chikis Mendoza MD LAB - PATHOLOGY/CYTO LOGY ORDERABLES DERMATOPATHOLOGY LABORATORY [facility] - Department of Dermatology [facility] Medicine [address] [place] [address], [address] [phone] documented in this encounter Visit Diagnoses Not on filedocumented in this encounter Care Teams Advanced Manufacturing Vice President Relationship Specialty [place] [address] [place] [phone] PCP - General 11/12/08 documented as of this encounter
--- OUTSIDE RECORDS SUMMARY | 2024-04-30 16:10 | XMS_ITS | Encounter Summary ---
Author Organization [facility] Address [address] [place] [address] Care Team Providers Care Post Form Remover Name Role Phone Brandon Roberts MD Primary Care Provider [phone] Encounter Details Date Type Department Care Team (Late st Contact Info) Description 07/03/2022 Lab Requisition [facility] - DermPath Lab [address] [facility], [place] [address] Chikis Mendoza MD [address] [facility] [address] [place] [address] Social History Tobacco Use Types Packs/Day Years [...] AM CDT) Case Report Dermatopathology Report Case: [id number] Authorizing Provider: Chikis Mendoza MD Collected: 07/03/2022 11:35 AM Ordering Location: [facility] DermPath Lab Received: 07/03/2022 04:44 PM [...] of a non-oriented ellipse of skin measuring [id number] mm. The epidermal surface is unremarkable. The [...] characteristic determined by the Dermatopathology Laboratory at [facility], directed by Dr. Leslye Thomas. These tests need not be, and therefore are not, approved by the [place] Food and Drug Administration. The tests are used for clinical purposes. Billing Codes Specimen Charges Stain Charges 91070 1 12:54 PM CDT DERMATOPATHOLOGY LABORATORY Embedded Images 12:54 PM CDT DERMATOPATHOLOGY LABORATORY Pathology/Cytolo gy TISSUE SPECIMEN FROM SKIN / Unknown 07/03/2022 11:35 AM CDT 07/03/2022 4:44 PM CDT Chikis Mendoza MD LAB - PATHOLOGY/CYTO LOGY ORDERABLES DERMATOPATHOLOGY LABORATORY [facility] - Department of Dermatology [address], [address] [phone] documented in this encounter Visit Diagnoses Not on filedocumented in this encounter Care Teams Post Form Remover Relationship Specialty [place] [address] [place] [phone] PCP - General 11/12/08 documented as of this encounter
--- OUTSIDE RECORDS SUMMARY | 2024-04-30 16:10 | XMS_ITS | Clinical Summary ---
Author Organization [facility] Address [address] [place] [address] Care Team Providers Care Rag Willow Operator Name Role Phone Oscar Carroll MD Unavailable + Oleg Marrero MD Unavailable [phone] Paulina Houser NP Primary Care Provider [phone] Allergies No known active allergies Medications amLODIPine [...] 1 tablet (75 mcg total) by mouth manager financial services before breakfast 0 11/29/19 18 Active dupilumab [...] (07/20/2020): Added automatically from request for surgery [id number] History of colon cancer 10/29/2019 Clostridium difficile infection 10/07/2019 Acute postoperative abdominal pain 09/23/2019 Malignant neoplasm of hepatic flexure 09/09/2019 Overview (09/09/2019): Added automatically from request for surgery [id number] Malignant neoplasm of transverse colon 0 Other atopic dermatitis 02/26/2018 Pruritus, unspecified 02/26/2018 Venous barkley of lip 02/26/2018 Encounters Date Type Department Care Team Description 04/30/2024 11:35 AM CDT Ancillary Procedure [facility] Cardiology [address] [place] [address] [place] [address] [phone] Arrived 04/30/2024 11:00 AM CDT Office Visit [place] [address] [place] [address] [phone] Caridad Self MD Persistent atrial fibrillation (HCC) (Primary Dx); Chronic anticoagulation; Primary hypertension; Mixed hyperlipidemia 03/27/2024 Telephone [place] [address] [place] [address] [phone] Tequila Garza NP punctured lung; broken rib; warfarin therapy 03/26/2024 10:30 AM AGENT CONTRACT CLERK Office Visit [place] [address] [place] [address] [phone] Tequila Garza NP Persistent atrial fibrillation (HCC) (Primary Dx); Encounter for anticoagulation discussion and counseling; On amiodarone therapy; MARC (obstructive sleep apnea); Chronic obstructive pulmonary disease, unspecified COPD type (HCC); Edema, lower extremity 03/26/2024 Anticoagulation Visit [place] [address] [place] [address] [phone] Teresa Snowden RN Atrial fibrillation, unspecified type (HCC) (Primary Dx) 03/26/2024 Telephone [place] [address] [place] [address] [phone] Tequila Garza NP 03/11/2024 Telephone [place] [address] [place] [phone] Caridad Self MD Med Refill 03/05/2024 10:00 AM AGENT CONTRACT CLERK Office Visit [place] [address] [place] [address] [phone] Tequila Garza NP Persistent atrial fibrillation with rapid ventricular response (HCC) (Primary Dx); Chronic anticoagulation; History of cardioversion; MARC (obstructive sleep apnea); Chronic obstructive pulmonary disease, unspecified COPD type (HCC); Hospital discharge follow-up 03/05/2024 Orders Only [facility] Cardiology [address] [place] [phone] Tequila Garza NP Persistent atrial fibrillation with rapid ventricular response (HCC) 02/20/2024 Telephone [facility] Cardiology [address] [place] [phone] Tequila Garza NP Medication Problem 02/20/2024 Orders Only [address] [place] [phone] Teresa Tadeo MA 02/20/[address] [place] [phone] Tequila Garza NP Med Refill 02/18/2024 Orders Only [facility] Cardiology [address] [place] [address] [place] [phone] Oxana Fragoso NP from Last 3 Months Immunizations Immunization Administration Dates Next Due Pneumococcal Conjugate PCV 13 12/02/2017 Surgical History Surgery Date Site/Laterality Comments [place] LIGJ DIVJ &/EXCJ VARICOSE VEIN CLUSTER [...] on file Legal Sex Female 12:02 PM AGENT CONTRACT CLERK Gender Identity Female 10/28/2019 5:35 PM CDT [...] (HCC) ECG 12-LEAD Routine 03/26/2024 4:15 PM AGENT CONTRACT CLERK ECG 12-LEAD Routine 03/05/2024 Persistent atrial fibrillation with rapid ventricular response (HCC) from Last 3 Months Results * Electrocardiogram Report (04/30/2024 11:28 AM CDT) us Caridad Self MD ECG ORDERABLES Final R esult * ECG 12 lead (03/26/2024 4:15 PM AGENT CONTRACT CLERK) us Tequila Garza NP ECG ORDERABLES Final Res ult * ECG 12 lead (03/05/2024) 03/05/2024 Tequila Garza NP ECG ORDERABLES Edited Re sult - Final from Last 3 Months Insurance MEDICARE SOLUTIONS MEDICARE SOLUTIONS Advance Directives For more information, please contact: [phone] * Full Code (Latest Code Status on [...] Manzo Daughter Health Care Agent Care Teams Rag Willow Operator Relationship Specialty Start Date End Date Paulina Houser NP [address] [place] [address] PCP - General Family Medicine 03/05/24 Oscar Carroll MD [address] [place] [address] Music Intern Gastroenterology 09/03/19 Oleg Marrero MD [address] [place] [address] Surgeon Colon and Rectal Surgery 10/13/19
--- OUTSIDE RECORDS SUMMARY | 2024-04-30 16:10 | XMS_ITS | Clinical Summary ---
Author Organization [facility] Address [facility] [place] [address] Care Team Providers Care Oyster Planter Name Role Phone Roman Mancia Primary Care Provider [phone] Allergies No known active allergies Medications aspirin [...] TIMES DAILY NEEDED FOR DIZZINESS 1 Active Roxana 3 1200 MG Cap Take 2 tablets [...] on file Legal Sex Female 9:14 AM RESTORER LACE AND TEXTILES Gender Identity Not on file Sexual Orientation Not on file Last Filed Vital Signs Vital Sign Reading Time Taken Comments Blood Pressure 168/86 04/21/2021 9:26 AM REST[employer]ACE [employer]IL[employer] Pulse 75 04/21/2021 9:26 AM RESTORER [employer]ACE [employer] TEXTILES Temperature 36.9 C (98.4 F) 04/21/2021 9:26 AM RESTORER [employer]ACE AND TEXTILES Respiratory Rate 16 04/21/2021 9:26 AM RESTORER LACE AND TEXTILES Oxygen Saturation 92% 04/21/2021 9:26 AM REST[employer]ACE [employer] Inhaled Oxygen Concentration - - Weight 89.8 kg (198 lb) 04/21/2021 9:26 AM REST[employer] Height 160 cm (5' 3 ) 04/21/2021 9:26 AM REST[employer]ACE [employer] Body Mass Index 35.07 04/21/2021 9:26 AM RESTORER [employer]ACE AND [employer]ES Plan of Treatment Health Maintenance Due Date [...] Payer ID:[id number] (NAIC) Type:Not on file Address: [place] [phone] Care Teams Oyster Planter Relationship Specialty Start Date End Date Roman Mancia DO [address] [address] PCP - General INTERNAL MEDICINE 02/21/21
--- OUTSIDE RECORDS SUMMARY | 2024-04-30 16:10 | XMS_ITS | Clinical Summary ---
Author Organization [facility] Address [address] [place] [address] Care Team Providers Care Diagrammer And Seamer Name Role Phone Brandon Roberts MD Primary Care Provider [phone] Source Comments [facility],non-owned Affiliates and Associated Physician Practices is amultiple site organization consisting of ambulatory clinics and hospital sitesin [place], [place], [place] and [place]. This disclosure is being madepursuant to the Care Everywhere program and may not contain all information available regarding this patient. Last updated 17.[facility] Allergies No known active allergies Medications * [...] age to complete this topic Care Teams Diagrammer And Seamer Relationship Specialty Start Date End Date Brandon Roberts MD [address] [place] [phone] PCP - General 11/12/08
--- OUTSIDE RECORDS SUMMARY | 2024-04-30 16:10 | XMS_ITS | Patient Health Summary ---
Author Organization [facility] Address [address] [facility] [place] [address] Care Team Providers Care House Rn Name Role Phone Brandon Roberts MD Primary Care Provider [phone] Note from [facility],non-owned Affiliates and Associated Physician Practices is amultiple site organization consisting of ambulatory clinics and hospital sitesin [place], [place], [place] and [place]. This disclosure is being madepursuant to the Care Everywhere program and may not contain all information available regarding this patient. Last updated 17.[facility] Allergies No known active allergies Medications [...] 06/19/2012) * CREATININE BLOOD - POCT (IP) [facility](Performed 02/18/1998) Results * DERMATOPATHOLOGY (08/12/2023 11:17 AM CDT) Only the most recent of4 resultswithin the time period is included. Case Report Dermatopathology Report Case: [id number] Authorizing Provider: Chikis Mendoza MD Collected: 08/12/2023 11:17 AM Ordering Location: [facility] - Received: 08/13/2023 [...] characteristic determined by the Dermatopathology Laboratory at [facility], directed by Dr. Leslye Thomas. These tests need not be, and therefore are not, approved by the [place] Food and Drug Administration. The tests are used for clinical purposes. Billing Codes Specimen Charges Stain Charges 39600 1 4 5:05 PM CDT DERMATOPATHOLOGY LABORATORY Embedded Images 4 5:05 PM CDT DERMATOPATHOLOGY LABORATORY Pathology/Cytolo gy TISSUE SPECIMEN FROM SKIN / Unknown 08/12/2023 11:17 AM CDT 08/13/2023 1:05 PM CDT Chikis Mendoza MD LAB - PATHOLOGY/CYTO LOGY ORDERABLES DERMATOPATHOLOGY LABORATORY [facility] - Department of Dermatology [address], [address] [phone] * CT ANGIO BRAIN (06/19/2012 7:44 AM [...] ORDERABLES * CREATININE BLOOD - POCT (IP) [facility] (02/18/1998 12:00 AM IMPROVEMENT COORDINATOR) Creatinine POCT 0.73 0.3 - 1.3 mg/dL [facility] eGFR POCT 60 60 ml/min [facility] 02/18/1998 Historical Provider LAB - POINT OF CA RE ORDERABLES [facility] Care Teams House Rn Relationship Specialty Start Date End Date Brandon Roberts MD [address] [place] [id number] PCP - General 11/12/08
--- OUTSIDE RECORDS SUMMARY | 2024-04-30 16:10 | XMS_ITS ---
Author Organization [facility] Address [address] [place] [address] Care Team Providers Care Social Media Intern Name Role Phone Oscar Carroll MD Unavailable + Oleg Marrero MD Unavailable Paulina Houser NP Primary Care Provider [phone] Active Problems Problem Noted Date Diagnosed Date Chronic anticoagulation 04/30/2024 Primary hypertension 04/30/2024 Mixed hyperlipidemia 04/30/2024 Atrial fibrillation 03/26/2024 Screening for malignant neoplasm of colon 2020 Overview (07/20/2020): Added automatically from request for surgery [id number] History of colon cancer 10/29/2019 Clostridium difficile infection 10/07/2019 Acute postoperative abdominal pain 09/23/2019 Malignant neoplasm of hepatic flexure 09/09/2019 Overview (09/09/2019): Added automatically from request for surgery [id number] Malignant neoplasm of transverse colon 0 Other [...] from the original note were not included. [facility] [address] [place] [address] This Survivorship Care Plan is a cancer [...] Information: Primary Care Physician Roman Mancia DO [phone] Surgeon Oleg Marrero MD Radiation Oncologist Medical Oncologist Batch Roller Operator Oscar Bill MD Treatment Summary Cancer [...] valrubicin, doxorub icin isotoxic equivalent Research Studies [facility] ([facility]) BIOBANK [...] Medical oncology and Surgeon if both are [facility] Physicians) History and Physical every 3 [...] Help learning to eat healthier, call the blood bank worker at: [facility] . Have an active lifestyle, strive [...] physician. Resources you may be interested in: [facility] Cancer Atkins A National Cancer [facility] http://www.[facility]/ [facility] Information Center 1st floor of [facility] [phone]. Computer access, educational material, counseling services (FREE) United Ostomy Association: the place for ostomy resources, advocacy, and support. www.ostomy.org The ostomy nurse at [facility] can be reached at [phone] Online Resources: www.cancer.net; http://www.cdc.gov/cancer/survivorship; http://www.cancercare.org/tagged/post-treatment_survivorship; http://www.cancer.gov/about-cancer/coping/survivorship [employer] Cancer: https://survivorship.cancer.gov/ an online tool for cancer survivors andcaregivers created by the [place] [employer] and the National Cancer Marceline. It provides: Information on dealing with side effects from cancer and treatment Caregivers with support and resources Practical advice about talking to friends and family about cancer Questions to ask their health care team Help understanding their rights in the workplace
--- OUTSIDE RECORDS SUMMARY | 2024-04-30 16:10 | XMS_ITS | Continuity of Care Document ---
Author Organization formerly [facility] Address [address] [place] [address] [address] [place] [address] Phone Care Team Providers Care Pit Boss Name Role Phone Neelima Londno Unavailable Unavailable Procedures Procedure Date Eye Exam & Treatment Refraction Office/outpatient Visit, Est No Script Eye Exam Established Pt No Script Eye Exam Established Pt Advance Directives Directive Yes / No Effective Date File Name No Information Encounters Encounter Description Practice Location Reason(s) For Visit Diagnoses Date Provider Providers Copied on Encounter [facility], [address] [place] [address] [address], [place], [place], [id number], [place] tel:[phone] [facility] No Information 2-201 0 Lita Ortez. [address] [facility] [address] , [address], [place], [place], [facility], . tel:[phone] Office/outpat ient Visit, Est [facility], [address] [place] [address] [address], [place], [place], [id number], [place] tel:[phone] [facility] No Information Sep-0 9-200 9 Ev Barrow. [address] [facility] [address] [facility] [address], [place], [place], [facility], . tel:[phone] [facility], [address] [place] [address] [address], [place], [place], [id number], [place] tel:[phone] [facility] No Information Sep-0 2-200 9 Ev Barrow. [address] [facility] [address], [place], [address], [place]. tel:[phone] [facility], [address], [place], [place], [id number], [place] tel:[phone] [facility] No Information 8 Smita Chopra. [address], [place], [address], [place]. tel:[phone] Family History Family Member Type Diagnosis Age At Onset No Information Payers Payer name Insurance type Covered republican ID Natachamaxine lornaobinna(s) [employer] Vision Plan CI [id number] Social History Type Description Quantity Date Captured [...]
--- OUTSIDE RECORDS SUMMARY | 2024-04-30 16:10 | XMS_ITS | Referral Summary ---
Author Organization [facility] Address [address] [place] [address] Care Team Providers Care Entry Driver Operator Name Role Phone Oscar Carroll MD Unavailable + Oleg Marrero MD Unavailable [phone] Paulina Houser NP Primary Care Provider [phone] Encounters Date Type Department Care Team Description 04/30/2024 11:35 AM CDT Ancillary Procedure [facility] Medical [facility] Cardiology [address] [place] [address] [place] [phone] Arrived 04/30/2024 11:00 AM CDT Office Visit [facility] Cardiology [address] [place] [address] [place] [address] Caridad Self MD Persistent atrial fibrillation (HCC) (Primary Dx); Chronic anticoagulation; Primary hypertension; Mixed hyperlipidemia 03/27/2024 Telephone [facility] Cardiology [address] [place] [address] [place] [address] Tequila Garza NP punctured lung; broken rib; warfarin therapy 03/26/2024 Anticoagulation Visit [facility] Cardiology [address] [place] [address] [place] [address] Teresa Snowden RN Atrial fibrillation, unspecified type (HCC) (Primary Dx) 03/26/2024 Telephone [place] [address] [place] [address] Tequila Garza NP 03/26/2024 10:30 AM AUTOMOBILE DEALER Office Visit [place] [address] [place] [address] Tequila Garza NP Persistent atrial fibrillation (HCC) (Primary Dx); Encounter for anticoagulation discussion and counseling; On amiodarone therapy; MARC (obstructive sleep apnea); Chronic obstructive pulmonary disease, unspecified COPD type (HCC); Edema, lower extremity 03/11/2024 Telephone [place] [address] [place] [address] Caridad Self MD Med Refill 03/05/2024 Orders Only [place] [address] [place] [address] Tequila Garza NP Persistent atrial fibrillation with rapid ventricular response (HCC) 03/05/2024 10:00 AM AUTOMOBILE DEALER Office Visit [place] [address] [place] [address] Tequila Garza NP Persistent atrial fibrillation with rapid ventricular response (HCC) (Primary Dx); Chronic anticoagulation; History of cardioversion; MARC (obstructive sleep apnea); Chronic obstructive pulmonary disease, unspecified COPD type (HCC); Hospital discharge follow-up 02/20/2024 Telephone [place] [address] [place] [address] Tequila Garza NP Medication Problem 02/20/2024 Orders Only [place] [address] [place] [phone] Teresa Tadeo MA 02/20/2024 Telephone [place] [address] [place] [address] Tequila Garza NP Med Refill 02/18/2024 Orders Only [facility] Cardiology [address] [place] [address] Oxana Fragoso NP from Last [...] 1 tablet (75 mcg total) by mouth sales appointment coordinator before breakfast 0 11/29/19 18 Active dupilumab [...] (07/20/2020): Added automatically from request for surgery [id number] History of colon cancer 10/29/2019 Clostridium difficile infection 10/07/2019 Acute postoperative abdominal pain 09/23/2019 Malignant neoplasm of hepatic flexure 09/09/2019 Overview (09/09/2019): Added automatically from request for surgery [id number] Malignant neoplasm of transverse colon 0 Other atopic dermatitis 02/26/2018 Pruritus, unspecified 02/26/2018 Venous abrkley of lip 02/26/2018 Immunizations Immunization Administration Dates [...] on file Legal Sex Female 12:02 PM AUTOMOBILE DEALER Gender Identity Female 10/28/2019 5:35 PM CDT [...] (HCC) ECG 12-LEAD Routine 03/26/2024 4:15 PM AUTOMOBILE DEALER ECG 12-LEAD Routine 03/05/2024 Persistent atrial fibrillation with rapid ventricular response (HCC) from Last 3 Months Results * Electrocardiogram Report (04/30/2024 11:28 AM CDT) us Caridad Self MD ECG ORDERABLES Final R esult * ECG 12 lead (03/26/2024 4:15 PM AUTOMOBILE DEALER) Tequila Garza NP ECG ORDERABLES Final Res ult * ECG 12 lead (03/05/2024) 03/05/2024 us Tequila Garza NP ECG ORDERABLES Edited Re sult - Final from Last 3 Months Insurance MEDICARE SOLUTIONS MEDICARE SOLUTIONS Advance Directives For more information, please contact: [phone] * Full Code (Latest Code Status on [...] Agents on File Name Relationship Healthcare Agent Relationsct p Communication Dafne Manzo Daughter Health Care Agent Care Teams Entry Driver Operator Relationship Specialty Start Date End Date Paulina Houser NP [address] [place] [address] PCP - General Family Medicine 03/05/24 Oscar Carroll MD [address] [place] [address] [facility] 09/03/19 Oleg Marrreo MD [address] [place] [address] Surgeon Colon and Rectal Surgery 10/13/19
--- OUTSIDE RECORDS SUMMARY | 2024-04-30 16:10 | XMS_ITS | Encounter Summary ---
Author Organization [facility] Address [address] [place] [address] Care Team Providers Care Concrete Batcher Name Role Phone Oscar Carroll MD Unavailable + Oleg Marrero MD Unavailable [phone] Paulina Houser NP Primary Care Provider [phone] Reason for Referral * Cardiology (Routine) - Closed Specialty Diagnoses / Procedures Referred By Contcarolina t Referred To Contact Diagnoses Persistent atrial fibrillation (HCC) Procedures 48 [place] [address] [place] [address] Phone: tel: fax: [facility] Medical Group Cardiology [address] [facility] [address] [place] [address] Phone: tel: fax: Referral ID Status Reason Start Date Expiration Date Visits Re quested Visits Authorized [id number] Closed 04/30/2024 05/30/2025 1 1 Reason for Visit * Reason Comments Follow-up 1 mo f/u Atrial Fibrillation Sleep Apnea Encounter Details Date Type Department Care Team (Latest Contact Info) Description 04/30/2024 11:00 AM CDT Office Visit [facility] Cardiology [address] [place] [address] Caridad Self MD [address] [facility] [address] [place] [address] Persistent atrial fibrillation (HCC) (Primary Dx); [...] on file Legal Sex Female 12:02 PM SNOW 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 I do not have those [facility] records available at this time for review. [...] she was unable to afford NOACs, [facility], therefore, will continue. Continue Toprol. Continue Amiodarone. Hypertension Continue Toprol, Lasix, Amlodipine. Hyperlipidemia Continue Atorvastatin. Given shortness of breath, will have her get 2V CXR done. Follow up with Pulmonary as well. Will obtain [facility] records and review her hospitalization. Caridad Self M.D., [facility] documented in this encounter Plan of Treatment [...] pain added in this encounter Care Teams Concrete Batcher Relationship Specialty Start Date End Date Paulina Houser NP [address] [place] [address] PCP - General Family Medicine 03/05/24 Oscar Carroll MD [address] [place] [address] [facility] 09/03/19 Oleg Marrero MD [address] [place] [address] Surgeon Colon and Rectal Surgery 10/13/19 documented as of this encounter
--- OUTSIDE RECORDS SUMMARY | 2024-04-30 16:10 | XMS_ITS | Encounter Summary ---
Author Organization [facility] Address [address] [place] [address] Care Team Providers Care Education Adviser Name Role Phone Oscar Carroll MD Unavailable + Oleg Marrero MD Unavailable [phone] Paulina Houser NP Primary Care Provider Reason for Visit * Cardiology (Routine) - Closed Specialty Diagnoses / Procedures Referred By Contcarolina t Referred To Contact Diagnoses Persistent atrial fibrillation (HCC) Procedures 48 HR Holter Monitor Caridad Self MD [address] [address] Phone: tel: fax: [facility] Cardiology [address] [place] [address] Phone: tel: fax: Referral ID Status Reason Start Date Expiration Date Visits Re quested Visits Authorized [id number] Closed 04/30/2024 05/30/2025 1 1 Encounter Details Date Type Department Care Team (Late st Contact Info) Description 04/30/2024 11:35 AM CDT Ancillary Procedure [facility] Cardiology [address] [place] [phone] Arrived Social History Tobacco Use Types Packs/Day [...] on file Legal Sex Female 12: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 SPECIALIST 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 Gender Identity Female 10/28/2019 5:35 PM CDT Sexual Orientation Straight 10/28/2019 5: 35 PM CDT documented as of this encounter Plan of Treatment Pending Results Name Type Priority Associated Diagnoses Date /Time 48 HR Holter Monitor Cardiac Services Routine Persistent atrial fibrillation (HCC) 04/30/2024 11:30 AM CDT documented as of this encounter Visit Diagnoses Not on filedocumented in this encounter Care Teams Education Adviser Relationship Specialty Start Date End Date Paulina Houser NP [address] [place] [address] PCP - General Family Medicine 03/05/24 Oscar Carroll MD [address] [place] [address] Route Vending Machine Servicer Gastroenterology 09/03/19 Oleg Marrero MD [address] [place] [address] Surgeon Colon and Rectal Surgery 10/13/19 documented as of this encounter
--- OUTSIDE RECORDS SUMMARY | 2024-04-30 16:10 | XMS_ITS | Referral Summary ---
Author Organization [facility] Address [address] [facility] [place] [address] Care Team Providers Care Dye And Chemical Coordinator Name Role Phone Brandon Roberts MD Primary Care Provider [phone] Source Comments [facility],non-owned Affiliates and Associated Physician Practices is amultiple site organization consisting of ambulatory clinics and hospital sitesin [place], [place], [place] and [place]. This disclosure is being madepursuant to the Care Everywhere program and may not contain all information available regarding this patient. Last updated 17.[facility] Allergies No known active allergies Medications * [...] of Treatment Not on file Care Teams Dye And Chemical Coordinator Relationship Specialty Start Date End Date Brandon Roberts MD [address] [place] [address] PCP - General 11/12/08
[2024-04-30] MEDS: ONDANSETRON INJ 4 MG/2 ML VIAL IV PUSH (16:36)
[2024-04-30] MEDS: MORPHINE SULFATE (*CRX) 2 MG/ML INJ IV PUSH (16:36)
--- NOTE | 2024-04-30 17:22 | ECG_ITS ---
Test Date: 2024-04-30 17:27:52 Measurements Intervals [place] Rate: 110 P: 0 NH: 0 QRS: 27 QRSD: 93 T: 224 QT: 328 QTc: 445 Interpretive Statements ATRIAL FIBRILLATION WITH RAPID VENTRICULAR RESPONSE LOW QRS VOLTAGE IN EXTREMITY LEADS [QRS DEFLECTION < 0.5 mV IN LIMB LEADS] NONSPECIFIC ST AND T WAVE ABNORMALITY BASELINE ARTIFACT LIMITS INTERPRETATION Compared to ECG 04/30/2024 14:04:06 NO SIGNIFICANT CHANGES Electronically Signed On 05-01-2024 16:47:20 CDT by Caridad Self M.D.
[2024-04-30 17:52] LABS: Troponin I < 0.012 ng/mL (0.000-0.034)
[2024-04-30] MEDS: methylPREDNISolone SOD SUCC 125 MG VIAL 60 MG IV PUSH ×2 (18:35→22:37)
[2024-04-30 19:42] LABS: Alveolar/Arterial O2 Gradient 210.6 mmHg; Base Excess ABG 1.3 mEq/l (+/-2.0); Fractional Inspired Oxygen 45 %; HCO3 ABG 26.6 mEq/l (22.0-26.0); Oxygen Content ABG 15.5 %vol (16.0-22.0); Oxygen Saturation ABG 90.4 % (95.0-100.0); Oxyhemoglobin 88.2 % THb (90.0-100.0); PCO2 ABG 44.9 mmHg (35.0-45.0); PO2 ABG 59.2 mmHg (80.0-100.0); PO2 FiO2 Ratio Arterial Blood 1.32 %; Total Hemoglobin 12.5 g/dL (12.0-18.0); pH ABG 7.391 (7.350-7.450)
[2024-04-30 19:43] LABS: Device HIGH FLOW NASAL CANN; Site Drawn RIGHT BRACHIAL
[2024-04-30 20:54] LABS: Troponin I < 0.012 ng/mL (0.000-0.034)
[2024-04-30] MEDS: FUROSEMIDE INJ 40 MG/4 ML VIAL IV PUSH (23:37)
--- NOTE | 2024-04-30 23:50 | PM.IMHP ---
H&P: HPI History of Present Illness Date/Time: 04/30/24 23:30 Chief Complaint: Increased shortness of breath Narrative: 88-year-old female with a past medical history of chronic atrial fibrillation on chronic anticoagulation with Eliquis, chronic hypoxic respiratory failure, CHF with preserved ejection fraction, mild pulmonary hypertension, recent hospitalization for traumatic right-sided pneumothorax and COVID who presented to the ER from [facility] due to shortness of breath. The patient was coming in for a cardiology appointment from [facility] rehab and followed up with a outpatient chest x-ray but stopped by the [facility] office due to her degree of shortness of breath. She was directed to come to the ER for evaluation. Her oxygen saturations on room air were 80% but she is usually on 3 L nasal cannula at home. In the ER she was on 4 L nasal cannula satting 93%. She is noted to be in AFib with RVR placed on a Cardizem drip in ER. Chest x-ray demonstrated bilateral large pleural effusions right greater than left. The patient states that she has been having increased shortness of breath for the last 24 hours and has had increased orthopnea for couple of days. She denies any chest pain or palpitations. She has noticed increased lower extremity swelling but denies any increased abdominal swelling. She reports a very low urine output compared to her baseline. She has not noticed any wheezing or increased cough. The patient requested to go to [facility] but the hospital was full at capacity. The patient is currently on a wait list. Review of Systems Review of Systems: Review of systems limited as the patient is on BiPAP. To his easy to arouse but was still somewhat sleepy. She is alert oriented times 4 but history was difficult to obtain due to BiPAP in clinical condition. 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 Osteopenia Degenerative arthritis of knee, bilateral Basal cell carcinoma Vertigo Hearing loss Hypothyroidism Varicose vein of leg COPD (chronic obstructive pulmonary disease) GERD (gastroesophageal reflux disease) Frequent headaches Afib Hyperlipidemia Hypertension Surgical History Surgical History History of colectomy H/O arthroscopy of knee both knees, meniscectomy History of foot surgery History of tonsillectomy Family History Family History Mother Family history of malignant neoplasm of breast in first degree relative Father Family history of throat cancer Family history of malignant neoplasm Other Family history of arthritis Social History Social History (Updated 05/01/24 @ 00:11 by Kathryn Ortez DO) Social History: Patient stated she socially smokes. Code status: DNR/DNI per patient request Surrogate decision maker: Shannan Melchor (daughter) Smoking packs per day: 1 Smoking cigarettes per day: 20.0 Years smoked: 30 Smoking pack-years: 30.00 Smoking status: Former smoker Second hand tobacco smoke exposure: Yes Alcohol intake: never Substance use: never Substance use type: does not use Do You Feel Safe in your Home?: Yes Lack of Transportation: No Lack of Food: Never True Current Housing: I Have Housing Concerned About Future Housing: No Difficulty Paying Gas/Electric Bills: No Difficulty Paying for Meds: No Currently Unemployed: No Education: High School Diploma/GED Difficulty w/ Childcare or Family Care: No Living arrangements: alone Occupation/Education: retired Gender identity (if verbalized by the patient): Female Spiritual care concerns: No Meds Home Medications and Allergies Home Medications ?Medication ?Instructions ?Recorded ?Confirmed ?Type dupilumab 300 mg/2 mL subcutaneous 300 mg subcut .biweekly 03/02/19 04/30/24 History syringe (Dupixent) ascorbic acid (vitamin C) 1,000 mg 1 g PO DAILY 02/28/22 04/30/24 History capsule calcium carbonate (Calcium 600) 600 mg PO DAILY 05/07/22 04/30/24 History fluticasone 100 mcg-salmeterol 50 1 inh inhalation Q12H #60 ea 01/20/24 04/30/24 Rx mcg/dose blistr powdr for inhalation (Wixela Inhub) atorvastatin 40 mg tablet 40 mg PO DAILY #30 tabs 01/25/24 04/30/24 Rx furosemide 40 mg tablet 40 mg PO DAILY #30 tabs 01/25/24 04/30/24 Rx metoprolol succinate 50 mg 50 mg PO QAM #30 tabs 01/25/24 04/30/24 Rx tablet,extended release 24 hr buspirone 5 mg tablet 5 mg PO BID #60 tabs 01/29/24 04/30/24 Rx amlodipine 5 mg tablet See Rx Instructions .Route 02/17/24 04/30/24 Rx .COMPLEX #90 tabs levothyroxine 75 mcg tablet See Rx Instructions .Route 02/19/24 04/30/24 Rx .COMPLEX #90 tabs amiodarone 200 mg tablet 200 mg PO Q24H 03/27/24 04/30/24 History potassium chloride 20 mEq 20 meq PO BID 03/27/24 04/30/24 History tablet,extended release apixaban 2.5 mg tablet (Eliquis) 2.5 mg PO BID #60 tabs 04/22/24 04/30/24 Rx fluticasone fur. 100 mcg-umeclid 1 inh inhalation DAILYRT #1 ea 04/22/24 04/30/24 Rx 62.5 mcg-vilant 25 mcg inhalat.powder (Trelegy Ellipta) levalbuterol HCl 1.25 mg/3 mL 0.63 mg (1.512 mL) inhalation 04/22/24 04/30/24 Rx solution for nebulization Q6HRT PRN Shortness Of Breath Or Wheezing #90 mL lidocaine 5 % topical patch 1 patch transdermal DAILY #15 ea 04/22/24 04/30/24 Rx (Lidoderm) loratadine 10 mg tablet (Allergy 10 mg PO DAILY #30 tabs 04/22/24 04/30/24 Rx Relief (loratadine)) magnesium oxide 400 mg (241.3 mg 400 mg PO QAM #30 tabs 04/22/24 04/30/24 Rx magnesium) tablet melatonin 5 mg tablet 5 mg PO HS #30 tabs 04/22/24 04/30/24 Rx pantoprazole 40 mg tablet,delayed 40 mg PO QAM #30 tabs 04/22/24 04/30/24 Rx release sennosides 8.6 mg-docusate sodium 2 tab-cap (2 x 8.6-50 mg) PO BID 04/22/24 04/30/24 Rx 50 mg tablet (Senokot-S) PRN Constipation #10 tabs Allergies Allergy/AdvReac Type Severity Reaction Status Date / Time No Known Allergies Allergy Verified 04/30/24 12:36 Vital Signs Vital Signs - 24 hr 04/30/24 12:31 04/30/24 14:12 04/30/24 14:15 Temperature 97.6 F Pulse Rate 120 H 120 H Respiratory Rate 25 H 28 H Blood Pressure 123/63 Pulse Oximetry 93 90 Oxygen Delivery Nasal Cannula Nasal Cannula Oxygen Flow Rate 4 3 04/30/24 14:30 04/30/24 15:44 04/30/24 15:47 Temperature Pulse Rate 119 H 119 H Respiratory Rate 24 H Blood Pressure 129/103 H 121/70 Pulse Oximetry 91 93 Oxygen Delivery Nasal Cannula Oxygen Flow Rate 4 04/30/24 16:24 04/30/24 17:23 04/30/24 17:48 Temperature Pulse Rate 118 H 97 113 H Respiratory Rate 27 H 27 H Blood Pressure 125/73 120/71 Pulse Oximetry 92 92 Oxygen Delivery Oxygen Flow Rate 04/30/24 17:55 04/30/24 19:52 04/30/24 19:55 Temperature 98.5 F Pulse Rate 114 H 111 H 111 H Respiratory Rate 32 H 24 H Blood Pressure 123/73 Pulse Oximetry 88 L 90 Oxygen Delivery High Flow Nasal Cannula Oxygen Flow Rate 10 04/30/24 19:58 04/30/24 20:00 04/30/24 20:00 Temperature 98.2 F 98.2 F Pulse Rate 98 98 117 H Respiratory Rate 24 H 24 H Blood Pressure 110/68 110/68 Pulse Oximetry 90 90 Oxygen Delivery Oxygen Flow Rate 04/30/24 20:00 04/30/24 20:12 04/30/24 20:45 Temperature Pulse Rate 110 H 110 H 110 H Respiratory Rate 24 H 24 H Blood Pressure 110/68 Pulse Oximetry 90 Oxygen Delivery High Flow Nasal Cannula Oxygen Flow Rate 10 04/30/24 22:00 04/30/24 22:00 04/30/24 22:33 Temperature 97.8 F Pulse Rate 93 95 100 Respiratory Rate 20 Blood Pressure 118/77 118/77 Pulse Oximetry 92 Oxygen Delivery Oxygen Flow Rate Exam Narrative: Weight 98.9 kg BMI 39.9 Const: Other: No acute distress, sitting with head of bed at 72?, appears stated age HENMT: Other: BiPAP in place,head is normocephalic atraumatic, pupils are equal and reactive, lens replacements noted bilateral,no scleral icterus Neck: Other: no JVD, no lymphadenopathy Resp: Other: Coarse breath sounds bilaterally, no obvious wheeze, no increased work of breathing while on BiPAP Cardio: Other: regular rate, irregularregular rhythm, 2+ bilateral radial pedal pulses, no JVD GI: Other: soft, nontender, nondistended, positive bowel sounds Skin: Other: mild pallor, non jaundice, normal temperature to touch Neuro: Other: alert oriented x3, speech is clear but slow, no obvious facial asymmetry but exam limited due to presence of BiPAP Extrem: Other: 2 to 3+ pitting edema lower extremities, 1+ pitting edema right forearm, generally weak but moves all extremities equally Psych: Other: appropriate mood and affect, pleasant and cooperative, judgment and insight intact H&P: Results Labs Labs: Laboratory Tests 04/30/24 14:11 04/30/24 14:11 04/30/24 04/30/24 04/30/24 14:00 14:06 14:11 WBC 10.4 H RBC 4.34 Hgb 12.4 Hct 39.8 MCV 91.7 MCH 28.6 MCHC 31.2 L RDW 15.8 H Plt Count 344 D MPV 11.0 H Immature Gran % (Auto) 0.6 H Neut % (Auto) 80.9 H Lymph % (Auto) 6.4 L Jackson % (Auto) 11.5 H Eos % (Auto) 0.3 Baso % (Auto) 0.3 Lymph # (Auto) 0.67 L Jackson # (Auto) 1.2 H Eos # (Auto) 0.0 Baso # (Auto) 0.0 Abs Immat Gran (auto) 0.06 H Absolute Neuts (auto) 8.4 H Absolute Nucleated RBC 0.000 Nucleated RBC % 0.0 PT 21.6 H INR 1.8 APTT 40.9 H Puncture Site Left radial ABG pH 7.438 ABG pCO2 43.8 ABG pO2 62.6 L ABG PO2/FiO2 Ratio 1.74 ABG HCO3 28.9 H ABG O2 Saturation 92.6 L ABG O2 Content 16.4 ABG Base Excess 4.2 A-a Gradient 143.3 Oxyhemoglobin 90.6 Total Hemoglobin 12.9 O2 Delivery Device Nasal cannula O2 Liters/Min 4.0 FiO2 36 Sodium 137 Potassium 4.2 Chloride 98 Carbon Dioxide 27 Anion Gap 12 BUN 14 Creatinine 0.66 L Estim Creat Clear Calc Not Reportable Estimated GFR > 60 Glucose 125 H Calcium 8.7 Magnesium 1.8 Total Bilirubin 1.1 AST 19 ALT 21 Alkaline Phosphatase 137 H Troponin I < 0.012 NT-Pro-B Natriuret Pep 3800 H Total Protein 7.0 Albumin 3.8 Urine Color Yellow Urine Appearance Clear Urine pH 7.0 Ur Specific [place] 1.011 Urine Protein Negative Urine Glucose (UA) Negative Urine Ketones Negative Ur Blood (Man) Negative Urine Nitrate Negative Urine Bilirubin Negative Urine Urobilinogen 1.0 Leukocyte Esterase Rfl Negative Influenza A (RT-PCR) Negative Influenza B (RT-PCR) Negative RSV (RT-PCR) Negative SARS-CoV-2 RNA (RT-PCR) Negative 04/30/24 04/30/24 04/30/24 17:26 19:31 20:26 WBC RBC Hgb Hct MCV MCH MCHC RDW Plt Count MPV Immature Gran % (Auto) Neut % (Auto) Lymph % (Auto) Jackson % (Auto) Eos % (Auto) Baso % (Auto) Lymph # (Auto) Jackson # (Auto) Eos # (Auto) Baso # (Auto) Abs Immat Gran (auto) Absolute Neuts (auto) Absolute Nucleated RBC Nucleated RBC % PT INR APTT Puncture Site Right brachial ABG pH 7.391 ABG pCO2 44.9 ABG pO2 59.2 L ABG PO2/FiO2 Ratio 1.32 ABG HCO3 26.6 H ABG O2 Saturation 90.4 L ABG O2 Content 15.5 L ABG Base Excess 1.3 A-a Gradient 210.6 Oxyhemoglobin 88.2 L Total Hemoglobin 12.5 O2 Delivery Device High flow nasal reji O2 Liters/Min 6.0 FiO2 45 Sodium Potassium Chloride Carbon Dioxide Anion Gap BUN Creatinine Estim Creat Clear Calc Estimated GFR Glucose Calcium Magnesium Total Bilirubin AST ALT Alkaline Phosphatase Troponin I < 0.012 < 0.012 NT-Pro-B Natriuret Pep Total Protein Albumin Urine Color Urine Appearance Urine pH Ur Specific [place] Urine Protein Urine Glucose (UA) Urine Ketones Ur Blood (Man) Urine Nitrate Urine Bilirubin Urine Urobilinogen Leukocyte Esterase Rfl Influenza A (RT-PCR) Influenza B (RT-PCR) RSV (RT-PCR) SARS-CoV-2 RNA (RT-PCR) CHEST RADIOGRAPH, PA AND LATERAL CLINICAL HISTORY: SHORTNESS OF BREATH . COMPARISON: 04/20/2024 TECHNIQUE: PA and lateral views of the chest. FINDINGS The cardiomediastinal silhouette is enlarged, unchanged. Increased bilateral pleural effusions, right greater than left. The remainder of the lungs are clear. IMPRESSION: Large bilateral pleural effusions, right greater than left. Interval increase from prior. Multiple EKGs reviewed demonstrating AFib with varying degrees of rapid ventricular response. No evidence of acute ischemia. Cardiology interpretation pending All imaging and EKGs personally reviewed and interpreted. And unless stated otherwise agree with radiologic and cardiology interpretation. Assessment and Plan Assessment and plan (1) Acute on chronic hypoxic respiratory failure: Code(s): J96.21 - Acute and chronic respiratory failure with hypoxia Status: Acute (2) Acute heart failure with preserved ejection fraction (HFpEF): Code(s): I50.31 - Acute diastolic (congestive) heart failure Status: Acute (3) Atrial fibrillation with rapid ventricular response: Code(s): I48.91 - Unspecified atrial fibrillation Status: Acute (4) MARC (obstructive sleep apnea): Code(s): G47.33 - Obstructive sleep apnea (adult) (pediatric) Status: Acute (5) Goals of care, counseling/discussion: Code(s): Z71.89 - Other specified counseling Status: Acute Plan The patient has acute on chronic hypoxic respiratory failure likely more so due to CHF exacerbation with large pleural effusions in the setting of AFib with RVR resulting in acute decompensation. Will give patient 1 dose of IV Lasix and start b.i.d. IV Lasix And oral potassium supplements with strict I&O's and daily weights. Cardiology has been consulted. patient was in AFib RVR with heart rates between 90 and low 100s at the time of my evaluation but few hours after that the patient's heart rate had improved down into the 80s. Will discontinue Cardizem drip. will continue patient's home amiodarone and beta-lizette.Patient's Eliquis will be placed on hold As I feel the patient would benefit from thoracentesis to for drainage of released the larger of the bilateral pleural effusions. Orders for thoracentesis have not yet been placed as the patient's last dose of Eliquis was on the 13th In the a.m.. patient's oxygen requirements had been titrated up to 10 L high-flow with persistent hypoxia requiring noninvasive ventilator support with BiPAP. Patient is tolerating BiPAP 10/5 with a backup rate of 14 and is pulling tidal volumes between 350 and 450 and appears extremely comfortable with improved respiratory rate. Will continue p.r.n. BiPAP. Hopefully with diuresis patient's oxygen requirement will decrease. Will continue BiPAP at night as well given the patient's history of obstructive sleep apnea. The patient was started on Solu-Medrol and scheduled nebulizers with albuterol and Atrovent in the ER. Patient is not currently wheezing during my evaluation and clinical picture seems more consistent with CHF. Will decrease dose of Solu-Medrol to 40 mg q.6 hours and will switch nebulizer treatments to Xopenex given the patient's AFib in tachycardic response. Pulmonology was consulted from the ER. Will continue patient's home inhalers. Patient does have history of essential hypertension and blood pressures are stable. Will continue patient's home amlodipine in addition to the beta-lizette and amiodarone. Will repeat CBC (In the setting of chronic anticoagulation ) BMP and magnesium in a.m (given diuresis).. Discussion was had with patient regarding goals of care. The patient states that if she were to fail noninvasive ventilator support she would not want to be intubated. She would instead want to be made comfortable and to a natural . She understands that this would mean no cardiac resuscitation she does not want chest compressions or defibrillation. Subsequently a order was placed for DNR/DNI. Quality VTE Prophylaxis VTE prophylaxis: mechanical ordered (SCDs) Hospitalist MIPS Advance Care Plan I have confirmed that the patient's Advanced Care Plan is present, code status is documented, or surrogate decision maker is listed in patient medical record.: Yes Medication Reconciliation I have utilized all available resources to obtain, update and review the patients current medications (includes all prescriptions, OTC, herbals, cannabis, and nutritional supplements).: Yes
[2024-05-01] VITALS (30 sets, daily range): BP systolic 89–114; BP diastolic 53–72; PULSE 83–115; RESP 16–31; TEMP 36.1–36.7; O2SAT 85–95
[2024-05-01] MEDS: AMIODARONE HCL 200 MG TABLET PO ×2 (01:55→22:11)
[2024-05-01] MEDS: IPRATROPIUM 0.5 MG/ALBUTEROL SULFATE 2.5 MG AMPUL.NEB 3 ML INHALATION (02:18)
[2024-05-01] MEDS: methylPREDNISolone SOD SUCC 125 MG VIAL 40 MG IV PUSH (04:48)
[2024-05-01] MEDS: LEVOTHYROXINE SODIUM 75 MCG TABLET PO (04:48)
[2024-05-01 04:49] LABS: Mean Corpuscular HGB Conc 31.4 g/dl (32-36); Mean Corpuscular Volume 92.3 fl (80-100); Mean Platelet Volume 10.9 fl (7.4-10.4); Platelet Count Result 280 k/mm3 (150-375); Red Blood Count 3.79 M/mm3 (4.2-5.4); Red Cell Distribution Width 15.7 % (11.5-14.5); White Blood Count 5.8 K/mm3 (4.5-10.0)
[2024-05-01 05:01] LABS: Anion Gap 7 mmol/L (4-12); Blood Urea Nitrogen 19 mg/dL (7-17); Calcium 8.9 mg/dL (8.4-10.2); Carbon Dioxide 32 mmol/L (22-30); Chloride 97 mmol/L (98-107); Estimated CRCL calculation 39 ml/min; Estimated Glomerular Filt Rate 54; Glucose 159 mg/dL (65-110); Magnesium 1.9 mg/dL (1.6-2.3); Potassium 5.1 mmol/L (3.4-5.0); Sodium 136 mmol/L (137-145)
[2024-05-01] MEDS: LEVALBUTEROL NEB 1.25 MG/3 ML INHALATION ×3 (07:36→20:57)
[2024-05-01] MEDS: MAGNESIUM OXIDE 400 MG TABLET PO (09:12)
[2024-05-01] MEDS: LORATADINE 10 MG TABLET PO (09:13)
[2024-05-01] MEDS: PANTOPRAZOLE 40 MG TABLET PO (09:13)
[2024-05-01] MEDS: busPIRone HCL 5 MG TABLET PO ×2 (09:13→17:39)
[2024-05-01] MEDS: ATORVASTATIN 40 MG TABLET PO (09:13)
--- NOTE | 2024-05-01 09:52 | P.CONPL_ITS ---
Assessment and Plan Assessment and plan (1) Chronic respiratory failure: Qualifiers: Respiratory failure complication: hypoxia Qualified Code(s): J96.11 - Chronic respiratory failure with hypoxia Code(s): J96.10 - Chronic respiratory failure, unspecified whether with hypoxia or hypercapnia Status: Acute Assessment and Plan: This 88-year-old female patient, with a history of mild COPD managed with maintenance bronchodilators and chronic hypoxemia treated with supplemental oxygen, has untreated sleep apnea and also atrial fibrillation for which she is receiving treatment, including anticoagulants. Last month, she was hospitalized due to respiratory failure initially caused by a pneumothorax. However, hypoxemic respiratory failure, particularly nocturnal hypoxemia, persisted due to congestive heart failure, as evidenced by a chest X-ray showing pulmonary edema and bilateral pleural effusions. The patient responded well to treatment for congestive heart failure, with radiographic evidence showing a reduction in the size of bilateral pleural effusions. Despite having mild sleep apnea, the patient refused to use CPAP. During her last hospitalization, she was placed on BiPAP support with supplemental oxygen at 3 liters per minute, and an ApneaLink study showed no significant oxyhemoglobin desaturation. Under these settings, the patient was discharged to a custodial while efforts were made to obtain insurance approval for a home ventilator due to her unstable cardiorespiratory status and complications from chronic nocturnal hypoxemia. While in the custodial, the patient reported issues with BiPAP support at night. I suspect this hospitalization was prompted by an increase in pleural effusions due to worsening congestive heart failure. There is no evidence of a COPD exacerbation or lower respiratory tract infection. Plan: Continue with the current BiPAP support settings of 12/8 and supplemental oxygen at night. BiPAP support may be used as needed during the day. Eliquis is on hold for the right thoracentesis, which is acceptable. The thoracentesis pleural fluid analysis is expected to confirm congestive heart failure as the cause of the effusion. Discontinue IV steroids. Continue with short-acting bronchodilators on an as-needed basis. I will continue to follow the patient along with you. (2) Acute on chronic hypoxic respiratory failure: Code(s): J96.21 - Acute and chronic respiratory failure with hypoxia Status: Acute (3) MARC (obstructive sleep apnea): Code(s): G47.33 - Obstructive sleep apnea (adult) (pediatric) Status: Acute (4) CHF (congestive heart failure): Qualifiers: Heart failure type: unspecified Heart failure chronicity: unspecified Qualified Code(s): I50.9 - Heart failure, unspecified Code(s): I50.9 - Heart failure, unspecified Status: Acute (5) Pleural effusion: Code(s): J90 - Pleural effusion, not elsewhere classified Status: Acute History of Present Illness History of Present Illness Consult date: 05/01/24 Chief complaint: CHF/COPD/PLEURAL EFFUSION/AFIB W RVR/ANXIETY Narrative: This 88-year-old patient presented with shortness of breath and hypoxemia. She is well known to Pulmonary Services, having been hospitalized from early March to early April for respiratory failure initially related to a traumatic pneumothorax and subsequently to congestive heart failure with bilateral pleural effusions. She required ventilatory support via BiPAP and supplemental oxygen due to persistent nocturnal hypoxemia. During that hospitalization, workup revealed severe biatrial enlargement on echocardiogram, elevated pulmonary artery systolic pressure at 42 mmHg, and atrial fibrillation. Her respiratory failure was attributed to congestive heart failure with pulmonary hypertension, likely related to left ventricular diastolic dysfunction and untreated sleep apnea. The patient was discharged to a custodial with supplemental oxygen at 3 liters per minute and BiPAP support at settings of 12/8 while awaiting approval for a home ventilator for her cardiorespiratory condition. While in the custodial, it was reported that the patient used BiPAP support and supplemental oxygen, although not in a bleed-in fashion, and she mentioned that the BiPAP mask might have fallen off during sleep. During a follow-up visit at the pulmonary clinic, she was found to have hypoxemia. Upon questioning, she admitted to experiencing increased shortness of breath over the past few days but denied other respiratory symptoms such as chest pain, palpitations, fever, chills, or increased lower extremity edema. She was compliant with her medications for congestive heart failure and atrial fibrillation, including Eliquis. Emergency room evaluation with a chest X-ray showed increased pleural effusions, larger on the right, with no new infiltrates. The patient received treatment with BiPAP support at night and supplemental oxygen at a higher flow rate of 10 liters per minute. Along with her cardiac medications, she is currently receiving Solu-Medrol IV and nebulized short-acting bronchodilators, while Eliquis has been held to allow for thoracentesis. Currently, she experiences no shortness of breath while on supplemental oxygen. 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 Osteopenia Degenerative arthritis of knee, bilateral Basal cell carcinoma Vertigo Hearing loss Hypothyroidism Varicose vein of leg COPD (chronic obstructive pulmonary disease) GERD (gastroesophageal reflux disease) Frequent headaches Afib Hyperlipidemia Hypertension Surgical History Surgical History History of colectomy H/O arthroscopy of knee both knees, meniscectomy History of foot surgery History of tonsillectomy Family History Family History Mother Family history of malignant neoplasm of breast in first degree relative Father Family history of throat cancer Family history of malignant neoplasm Other Family history of arthritis Social History Social History (Updated 05/01/24 @ 00:11 by Kathryn Ortez DO) Social History: Patient stated she socially smokes. Code status: DNR/DNI per patient request Surrogate decision maker: Shannan Melchor (daughter) Smoking packs per day: 1 Smoking cigarettes per day: 20.0 Years smoked: 30 Smoking pack-years: 30.00 Smoking status: Former smoker Second hand tobacco smoke exposure: Yes Alcohol intake: never Substance use: never Substance use type: does not use Do You Feel Safe in your Home?: Yes Lack of Transportation: No Lack of Food: Never True Current Housing: I Have Housing Concerned About Future Housing: No Difficulty Paying Gas/Electric Bills: No Difficulty Paying for Meds: No Currently Unemployed: No Education: High School Diploma/GED Difficulty w/ Childcare or Family Care: No Living arrangements: alone Occupation/Education: retired Gender identity (if verbalized by the patient): Female Spiritual care concerns: No Meds Home Medications and Allergies Home Medications ?Medication ?Instructions ?Recorded ?Confirmed ?Type dupilumab 300 mg/2 mL subcutaneous 300 mg subcut .biweekly 03/02/19 04/30/24 History syringe ([employer]) ascorbic acid (vitamin C) 1,000 mg 1 g PO DAILY 02/28/22 04/30/24 History capsule calcium carbonate (Calcium 600) 600 mg PO DAILY 05/07/22 04/30/24 History fluticasone 100 mcg-salmeterol 50 1 inh inhalation Q12H #60 ea 01/20/24 04/30/24 Rx mcg/dose blistr powdr for inhalation (Wixela Inhub) atorvastatin 40 mg tablet 40 mg PO DAILY #30 tabs 01/25/24 04/30/24 Rx furosemide 40 mg tablet 40 mg PO DAILY #30 tabs 01/25/24 04/30/24 Rx metoprolol succinate 50 mg 50 mg PO QAM #30 tabs 01/25/24 04/30/24 Rx tablet,extended release 24 hr buspirone 5 mg tablet 5 mg PO BID #60 tabs 01/29/24 04/30/24 Rx amlodipine 5 mg tablet See Rx Instructions .Route 02/17/24 04/30/24 Rx .COMPLEX #90 tabs levothyroxine 75 mcg tablet See Rx Instructions .Route 02/19/24 04/30/24 Rx .COMPLEX #90 tabs amiodarone 200 mg tablet 200 mg PO Q24H 03/27/24 04/30/24 History potassium chloride 20 mEq 20 meq PO BID 03/27/24 04/30/24 History tablet,extended release apixaban 2.5 mg tablet (Eliquis) 2.5 mg PO BID #60 tabs 04/22/24 04/30/24 Rx fluticasone fur. 100 mcg-umeclid 1 inh inhalation DAILYRT #1 ea 04/22/24 04/30/24 Rx 62.5 mcg-vilant 25 mcg inhalat.powder (Trelegy Ellipta) levalbuterol HCl 1.25 mg/3 mL 0.63 mg (1.512 mL) inhalation 04/22/24 04/30/24 Rx solution for nebulization Q6HRT PRN Shortness Of Breath Or Wheezing #90 mL lidocaine 5 % topical patch 1 patch transdermal DAILY #15 ea 04/22/24 04/30/24 Rx (Lidoderm) loratadine 10 mg tablet (Allergy 10 mg PO DAILY #30 tabs 04/22/24 04/30/24 Rx Relief (loratadine)) magnesium oxide 400 mg (241.3 mg 400 mg PO QAM #30 tabs 04/22/24 04/30/24 Rx magnesium) tablet melatonin 5 mg tablet 5 mg PO HS #30 tabs 04/22/24 04/30/24 Rx pantoprazole 40 mg tablet,delayed 40 mg PO QAM #30 tabs 04/22/24 04/30/24 Rx release sennosides 8.6 mg-docusate sodium 2 tab-cap (2 x 8.6-50 mg) PO BID 04/22/24 04/30/24 Rx 50 mg tablet (Senokot-S) PRN Constipation #10 tabs Allergies Allergy/AdvReac Type Severity Reaction Status Date / Time No Known Allergies Allergy Verified 04/30/24 12:36 Vital Signs Vital Signs - 24 hr 04/30/24 12:31 04/30/24 14:12 04/30/24 14:15 Temperature 36.4 C Pulse Rate 120 H 120 H Respiratory Rate 25 H 28 H Blood Pressure 123/63 Pulse Oximetry 93 90 Oxygen Delivery Nasal Cannula Nasal Cannula Oxygen Flow Rate 4 3 Fraction of Inspired Oxygen 04/30/24 14:30 04/30/24 15:44 04/30/24 15:47 Temperature Pulse Rate 119 H 119 H Respiratory Rate 24 H Blood Pressure 129/103 H 121/70 Pulse Oximetry 91 93 Oxygen Delivery Nasal Cannula Oxygen Flow Rate 4 Fraction of Inspired Oxygen 04/30/24 16:24 04/30/24 17:23 04/30/24 17:48 Temperature Pulse Rate 118 H 97 113 H Respiratory Rate 27 H 27 H Blood Pressure 125/73 120/71 Pulse Oximetry 92 92 Oxygen Delivery Oxygen Flow Rate Fraction of Inspired Oxygen 04/30/24 17:55 04/30/24 19:52 04/30/24 19:55 Temperature 36.9 C Pulse Rate 114 H 111 H 111 H Respiratory Rate 32 H 24 H Blood Pressure 123/73 Pulse Oximetry 88 L 90 Oxygen Delivery High Flow Nasal Cannula Oxygen Flow Rate 10 Fraction of Inspired Oxygen 04/30/24 19:58 04/30/24 20:00 04/30/24 20:00 Temperature 36.8 C 36.8 C Pulse Rate 98 98 117 H Respiratory Rate 24 H 24 H Blood Pressure 110/68 110/68 Pulse Oximetry 90 90 Oxygen Delivery Oxygen Flow Rate Fraction of Inspired Oxygen 04/30/24 20:00 04/30/24 20:12 04/30/24 20:45 Temperature Pulse Rate 110 H 110 H 110 H Respiratory Rate 24 H 24 H Blood Pressure 110/68 Pulse Oximetry 90 Oxygen Delivery High Flow Nasal Cannula Oxygen Flow Rate 10 Fraction of Inspired Oxygen 04/30/24 22:00 04/30/24 22:00 04/30/24 22:33 Temperature 36.6 C Pulse Rate 93 95 100 Respiratory Rate 20 Blood Pressure 118/77 118/77 Pulse Oximetry 92 Oxygen Delivery Oxygen Flow Rate Fraction of Inspired Oxygen 04/30/24 23:05 05/01/24 00:00 05/01/24 00:00 Temperature 36.4 C L Pulse Rate 96 97 97 Respiratory Rate 23 H 31 H Blood Pressure 112/72 Pulse Oximetry 94 94 Oxygen Delivery BiPAP Oxygen Flow Rate Fraction of Inspired Oxygen 05/01/24 00:00 05/01/24 00:37 05/01/24 01:55 Temperature Pulse Rate 97 97 89 Respiratory Rate 31 H Blood Pressure 112/72 Pulse Oximetry 94 Oxygen Delivery BiPAP Oxygen Flow Rate Fraction of Inspired Oxygen 50 05/01/24 01:57 05/01/24 02:00 05/01/24 02:00 Temperature Pulse Rate 86 85 92 Respiratory Rate 22 H Blood Pressure 102/54 L 102/54 L Pulse Oximetry 92 Oxygen Delivery Oxygen Flow Rate Fraction of Inspired Oxygen 05/01/24 02:18 05/01/24 02:20 05/01/24 02:29 Temperature Pulse Rate 90 90 89 Respiratory Rate 20 20 19 Blood Pressure Pulse Oximetry 92 Oxygen Delivery BiPAP Oxygen Flow Rate Fraction of Inspired Oxygen 05/01/24 03:58 05/01/24 04:00 05/01/24 04:00 Temperature Pulse Rate 87 89 84 Respiratory Rate 18 Blood Pressure Pulse Oximetry 92 Oxygen Delivery BiPAP Oxygen Flow Rate Fraction of Inspired Oxygen 50 05/01/24 04:00 05/01/24 05:20 05/01/24 06:00 Temperature 36.1 C L Pulse Rate 89 88 83 Respiratory Rate 19 19 Blood Pressure 89/53 L Pulse Oximetry 95 93 Oxygen Delivery BiPAP Oxygen Flow Rate Fraction of Inspired Oxygen 05/01/24 07:35 05/01/24 07:36 05/01/24 07:55 Temperature 36.7 C Pulse Rate 89 107 H 109 H Respiratory Rate 23 H 20 20 Blood Pressure 101/65 Pulse Oximetry 95 Oxygen Delivery Oxygen Flow Rate Fraction of Inspired Oxygen Exam 2 Narrative: GENERAL APPEARANCE: Well developed, well nourished, alert and cooperative, and appears to be in mild respiratory distress while on high-flow nasal cannula oxygen SKIN: Inspection of the skin reveals no rashes, ulcerations or petechiae. HEENT: Sclerae anicteric and conjunctivae pink and moist. Extraocular movements were intact and pupils were equal, round. Dry oral mucosa. NECK: Supple. There was no thyroid enlargement, and no tenderness, or masses were felt. LUNGS: Decreased breath sounds and few crackles at bases posteriorly no wheezing CARDIAC: There was irregular rate and rhythm without any murmurs, gallops, rubs. ABDOMEN: Soft and nontender with normal bowel sounds. There was no organomegaly. LYMPH NODES: No lymphadenopathy was appreciated in the neck, axillae or groin. EXTREMITIES: No cyanosis, clubbing. no pedal edema. NEUROLOGIC: Alert. Normal affect. Results Laboratory Findings 05/01/24 04:43 05/01/24 04:43 ABG, PT/INR, D-dimer: ABG ABG pH 7.391 (7.350-7.450) 04/30/24 19:31 ABG pCO2 44.9 mmHg (35.0-45.0) 04/30/24 19:31 ABG pO2 59.2 mmHg (80.0-100.0) L 04/30/24 19:31 ABG O2 Saturation 90.4 % (95.0-100.0) L 04/30/24 19:31 PT/INR, D-dimer PT 21.6 Seconds (11.1-14.7) H 04/30/24 14:11 INR 1.8 04/30/24 14:11 Abnormal lab findings: Abnormal Labs 04/30/24 04/30/24 04/30/24 14:00 14:11 19:31 WBC 10.4 H RBC Hgb Hct MCHC 31.2 L RDW 15.8 H MPV 11.0 H Immature Gran % (Auto) 0.6 H Neut % (Auto) 80.9 H Lymph % (Auto) 6.4 L Traill % (Auto) 11.5 H Lymph # (Auto) 0.67 L [place] # (Auto) 1.2 H Abs Immat Gran (auto) 0.06 H Absolute Neuts (auto) 8.4 H PT 21.6 H APTT 40.9 H ABG pO2 62.6 L 59.2 L ABG HCO3 28.9 H 26.6 H ABG O2 Saturation 92.6 L 90.4 L ABG O2 Content 15.5 L Oxyhemoglobin 88.2 L Sodium Potassium Chloride Carbon Dioxide BUN Creatinine 0.66 L Estimated GFR Glucose 125 H Alkaline Phosphatase 137 H NT-Pro-B Natriuret Pep 3800 H 05/01/24 04:43 WBC RBC 3.79 L Hgb 11.0 L Hct 35.0 L MCHC 31.4 L RDW 15.7 H MPV 10.9 H Immature Gran % (Auto) Neut % (Auto) Lymph % (Auto) Traill % (Auto) Lymph # (Auto) [place] # (Auto) Abs Immat Gran (auto) Absolute Neuts (auto) PT APTT ABG pO2 ABG HCO3 ABG O2 Saturation ABG O2 Content Oxyhemoglobin Sodium 136 L Potassium 5.1 H Chloride 97 L Carbon Dioxide 32 H BUN 19 H Creatinine Estimated GFR 54 L Glucose 159 H Alkaline Phosphatase NT-Pro-B Natriuret Pep
--- NOTE | 2024-05-01 12:12 | P.CONCA_ITS ---
Assessment and Plan Assessment and plan (1) CHF (congestive heart failure): Code(s): I50.9 - Heart failure, unspecified Status: Acute Plan 1. Acute on chronic heart failure with preserved LVEF 2. Atrial fibrillation with RVR. Persistent atrial fibrillation. Diagnosed in January 2024, s/p EVY-guided DCCV on 01/23/2024. However, went back into AFIB shortly afterwards. 3. Acute on chronic hypoxic respiratory failure, on home oxygen. 4. Hypertension 5. Hyperlipidemia 6. COPD 7. MARC 8. Hypothyroidism 9. GERD PLAN: -Continue with IV Lasix 40mg BID. Please monitor strict I/Os. Will give a dose of Metolazone to facilitate diuresis. -As for AFIB, her rates are improved and should improve as her CHF and respiratory status improve. Continue Amiodarone, Metoprolol. -Thoracentesis might be pursued, therefore, Eliquis has been placed on hold. -BIPAP management as per Pulmonary. -Continue Amlodipine. -Continue Atorvastatin. Recommendations and plan discussed with Hospitalist. History of Present Illness History of Present Illness Consult date/time: 05/01/24 12:12 Requesting physician: Gil Sapp MD Consult reason: atrial fibrillation and congestive heart failure Reason For Visit: CHF/COPD/PLEURAL EFFUSION/AFIB W RVR/ANXIETY Narrative: This is an 88 year old female whom I see in the office. She has the following history: 1. Chronic heart failure with preserved LVEF 2. Persistent atrial fibrillation. Diagnosed in January 2024, s/p EVY-guided DCCV on 01/23/2024. However, went back into AFIB shortly afterwards. 3. Hypertension 4. Hyperlipidemia 5. Chronic hypoxic respiratory failure on home oxygen 6. COPD 7. MARC 8. Hypothyroidism 9. GERD I saw patient yesterday in the office and she was reporting worsening shortness of breath. She did note that her nursing facility had not been placing the BIPAP mask correctly on her at night. I ordered a CXR which she got done after my office visit with her, and it showed large bilateral pleural effusions, right greater than left. Given her symptoms and CXR findings, patient came to the ED for further treatment. Patient admitted for acute on chronic CHF exacerbation, acute on chronic hypoxic respiratory failure. Started on IV Lasix with some improvement. Of note, patient prefers to be admitted at [facility], therefore, she is currently awaiting a bed there. Workup shows: Negative troponins. NT pro BNP 3800 EKG shows atrial fibrillation with RVR. 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 Osteopenia Degenerative arthritis of knee, bilateral Basal cell carcinoma Vertigo Hearing loss Hypothyroidism Varicose vein of leg COPD (chronic obstructive pulmonary disease) GERD (gastroesophageal reflux disease) Frequent headaches Afib Hyperlipidemia Hypertension Surgical History Surgical History History of colectomy H/O arthroscopy of knee both knees, meniscectomy History of foot surgery History of tonsillectomy Family History Family History Mother Family history of malignant neoplasm of breast in first degree relative Father Family history of throat cancer Family history of malignant neoplasm Other Family history of arthritis Social History Social History Social History: Patient stated she socially smokes. Code status: DNR/DNI per patient request Surrogate decision maker: Shannan Melchor (daughter) Smoking packs per day: 1 Smoking cigarettes per day: 20.0 Years smoked: 30 Smoking pack-years: 30.00 Smoking status: Former smoker Second hand tobacco smoke exposure: Yes Alcohol intake: never Substance use: never Substance use type: does not use Do You Feel Safe in your Home?: Yes Lack of Transportation: No Lack of Food: Never True Current Housing: I Have Housing Concerned About Future Housing: No Difficulty Paying Gas/Electric Bills: No Difficulty Paying for Meds: No Currently Unemployed: No Education: High School Diploma/GED Difficulty w/ Childcare or Family Care: No Living arrangements: alone Occupation/Education: retired Gender identity (if verbalized by the patient): Female Spiritual care concerns: No Meds Home Medications and Allergies Home Medications ?Medication ?Instructions ?Recorded ?Confirmed ?Type dupilumab 300 mg/2 mL subcutaneous 300 mg subcut .biweekly 03/02/19 04/30/24 History syringe (Dupixent) ascorbic acid (vitamin C) 1,000 mg 1 g PO DAILY 02/28/22 04/30/24 History capsule calcium carbonate (Calcium 600) 600 mg PO DAILY 05/07/22 04/30/24 History fluticasone 100 mcg-salmeterol 50 1 inh inhalation Q12H #60 ea 01/20/24 04/30/24 Rx mcg/dose blistr powdr for inhalation (Flor Inhub) atorvastatin 40 mg tablet 40 mg PO DAILY #30 tabs 01/25/24 04/30/24 Rx furosemide 40 mg tablet 40 mg PO DAILY #30 tabs 01/25/24 04/30/24 Rx metoprolol succinate 50 mg 50 mg PO QAM #30 tabs 01/25/24 04/30/24 Rx tablet,extended release 24 hr buspirone 5 mg tablet 5 mg PO BID #60 tabs 01/29/24 04/30/24 Rx amlodipine 5 mg tablet See Rx Instructions .Route 02/17/24 04/30/24 Rx .COMPLEX #90 tabs levothyroxine 75 mcg tablet See Rx Instructions .Route 02/19/24 04/30/24 Rx .COMPLEX #90 tabs amiodarone 200 mg tablet 200 mg PO Q24H 03/27/24 04/30/24 History potassium chloride 20 mEq 20 meq PO BID 03/27/24 04/30/24 History tablet,extended release apixaban 2.5 mg tablet (Eliquis) 2.5 mg PO BID #60 tabs 04/22/24 04/30/24 Rx fluticasone fur. 100 mcg-umeclid 1 inh inhalation DAILYRT #1 ea 04/22/24 04/30/24 Rx 62.5 mcg-vilant 25 mcg inhalat.powder (Trelegy Ellipta) levalbuterol HCl 1.25 mg/3 mL 0.63 mg (1.512 mL) inhalation 04/22/24 04/30/24 Rx solution for nebulization Q6HRT PRN Shortness Of Breath Or Wheezing #90 mL lidocaine 5 % topical patch 1 patch transdermal DAILY #15 ea 04/22/24 04/30/24 Rx (Lidoderm) loratadine 10 mg tablet (Allergy 10 mg PO DAILY #30 tabs 04/22/24 04/30/24 Rx Relief (loratadine)) magnesium oxide 400 mg (241.3 mg 400 mg PO QAM #30 tabs 04/22/24 04/30/24 Rx magnesium) tablet melatonin 5 mg tablet 5 mg PO HS #30 tabs 04/22/24 04/30/24 Rx pantoprazole 40 mg tablet,delayed 40 mg PO QAM #30 tabs 04/22/24 04/30/24 Rx release sennosides 8.6 mg-docusate sodium 2 tab-cap (2 x 8.6-50 mg) PO BID 04/22/24 04/30/24 Rx 50 mg tablet (Senokot-S) PRN Constipation #10 tabs Allergies Allergy/AdvReac Type Severity Reaction Status Date / Time No Known Allergies Allergy Verified 04/30/24 12:36 Vital Signs Vital Signs - 24 hr 04/30/24 12:31 04/30/24 14:12 04/30/24 14:15 Temperature 36.4 C Pulse Rate 120 H 120 H Respiratory Rate 25 H 28 H Blood Pressure 123/63 Pulse Oximetry 93 90 Oxygen Delivery Nasal Cannula Nasal Cannula Oxygen Flow Rate 4 3 Fraction of Inspired Oxygen 04/30/24 14:30 04/30/24 15:44 04/30/24 15:47 Temperature Pulse Rate 119 H 119 H Respiratory Rate 24 H Blood Pressure 129/103 H 121/70 Pulse Oximetry 91 93 Oxygen Delivery Nasal Cannula Oxygen Flow Rate 4 Fraction of Inspired Oxygen 04/30/24 16:24 04/30/24 17:23 04/30/24 17:48 Temperature Pulse Rate 118 H 97 113 H Respiratory Rate 27 H 27 H Blood Pressure 125/73 120/71 Pulse Oximetry 92 92 Oxygen Delivery Oxygen Flow Rate Fraction of Inspired Oxygen 04/30/24 17:55 04/30/24 19:52 04/30/24 19:55 Temperature 36.9 C Pulse Rate 114 H 111 H 111 H Respiratory Rate 32 H 24 H Blood Pressure 123/73 Pulse Oximetry 88 L 90 Oxygen Delivery High Flow Nasal Cannula Oxygen Flow Rate 10 Fraction of Inspired Oxygen 04/30/24 19:58 04/30/24 20:00 04/30/24 20:00 Temperature 36.8 C 36.8 C Pulse Rate 98 98 117 H Respiratory Rate 24 H 24 H Blood Pressure 110/68 110/68 Pulse Oximetry 90 90 Oxygen Delivery Oxygen Flow Rate Fraction of Inspired Oxygen 04/30/24 20:00 04/30/24 20:12 04/30/24 20:45 Temperature Pulse Rate 110 H 110 H 110 H Respiratory Rate 24 H 24 H Blood Pressure 110/68 Pulse Oximetry 90 Oxygen Delivery High Flow Nasal Cannula Oxygen Flow Rate 10 Fraction of Inspired Oxygen 04/30/24 22:00 04/30/24 22:00 04/30/24 22:33 Temperature 36.6 C Pulse Rate 93 95 100 Respiratory Rate 20 Blood Pressure 118/77 118/77 Pulse Oximetry 92 Oxygen Delivery Oxygen Flow Rate Fraction of Inspired Oxygen 04/30/24 23:05 05/01/24 00:00 05/01/24 00:00 Temperature 36.4 C L Pulse Rate 96 97 97 Respiratory Rate 23 H 31 H Blood Pressure 112/72 Pulse Oximetry 94 94 Oxygen Delivery BiPAP Oxygen Flow Rate Fraction of Inspired Oxygen 05/01/24 00:00 05/01/24 00:37 05/01/24 01:55 Temperature Pulse Rate 97 97 89 Respiratory Rate 31 H Blood Pressure 112/72 Pulse Oximetry 94 Oxygen Delivery BiPAP Oxygen Flow Rate Fraction of Inspired Oxygen 50 05/01/24 01:57 05/01/24 02:00 05/01/24 02:00 Temperature Pulse Rate 86 85 92 Respiratory Rate 22 H Blood Pressure 102/54 L 102/54 L Pulse Oximetry 92 Oxygen Delivery Oxygen Flow Rate Fraction of Inspired Oxygen 05/01/24 02:18 05/01/24 02:20 05/01/24 02:29 Temperature Pulse Rate 90 90 89 Respiratory Rate 20 20 19 Blood Pressure Pulse Oximetry 92 Oxygen Delivery BiPAP Oxygen Flow Rate Fraction of Inspired Oxygen 05/01/24 03:58 05/01/24 04:00 05/01/24 04:00 Temperature Pulse Rate 87 89 84 Respiratory Rate 18 Blood Pressure Pulse Oximetry 92 Oxygen Delivery BiPAP Oxygen Flow Rate Fraction of Inspired Oxygen 50 05/01/24 04:00 05/01/24 05:20 05/01/24 06:00 Temperature 36.1 C L Pulse Rate 89 88 83 Respiratory Rate 19 19 Blood Pressure 89/53 L Pulse Oximetry 95 93 Oxygen Delivery BiPAP Oxygen Flow Rate Fraction of Inspired Oxygen 05/01/24 07:35 05/01/24 07:36 05/01/24 07:55 Temperature 36.7 C Pulse Rate 89 107 H 109 H Respiratory Rate 23 H 20 20 Blood Pressure 101/65 Pulse Oximetry 95 Oxygen Delivery Oxygen Flow Rate Fraction of Inspired Oxygen 05/01/24 08:00 05/01/24 08:00 05/01/24 10:00 Temperature Pulse Rate 104 H 97 103 H Respiratory Rate 18 Blood Pressure Pulse Oximetry 90 Oxygen Delivery Nasal Cannula Oxygen Flow Rate 10 Fraction of Inspired Oxygen Exam 2 Const: Other: Elderly frail appearing female Eyes: General: appearance normal, both eyes and all related structures S clera: sclerae normal Resp: Auscultation: diminished lung sounds Other: On supplemental oxygen Cardio: Rhythm: abnormal rhythm irregularly irregular Other: + Bilateral lower extremity edema Skin: General skin exam: normal color Neuro: Speech: normal speech Psych: Mental Status: mental status grossly normal Affect: normal affect Results Labs and Meds 05/01/24 04:43 05/01/24 04:43 Lab results: Cardiac Enzymes 04/30/24 04/30/24 04/30/24 Range/Units 14:11 17:26 20:26 AST 19 (14-36) U/L Troponin I < 0.012 < 0.012 < 0.012 (0.000-0.034) ng/mL Coagulation 04/30/24 Range/Units 14:11 PT 21.6 H (11.1-14.7) Seconds APTT 40.9 H (22.3-36.8) Seconds CBC 04/30/24 05/01/24 Range/Units 14:11 04:43 WBC 10.4 H 5.8 (4.5-10.0) K/mm3 RBC 4.34 3.79 L (4.2-5.4) M/mm3 Hgb 12.4 11.0 L (12.0-15.0) g/dL Hct 39.8 35.0 L (37.0-47.0) % Plt Count 344 D 280 (150-375) k/mm3 Lymph # (Auto) 0.67 L (0.9-3.2) K/mm3 [place] # (Auto) 1.2 H (0.1-0.6) K/mm3 Eos # (Auto) 0.0 (0-0.3) K/mm3 Baso # (Auto) 0.0 (0.0-0.1) K/mm3 Comprehensive Metabolic Panel 04/30/24 05/01/24 Range/Units 14:11 04:43 Sodium 137 136 L (137-145) mmol/L Potassium 4.2 5.1 H (3.4-5.0) mmol/L Chloride 98 97 L (98-107) mmol/L Carbon Dioxide 27 32 H (22-30) mmol/L BUN 14 19 H (7-17) mg/dL Creatinine 0.66 L 0.97 (0.7-1.0) mg/dL Glucose 125 H 159 H (65-110) mg/dL Calcium 8.7 8.9 (8.4-10.2) mg/dL AST 19 (14-36) U/L ALT 21 (6-35) U/L Alkaline Phosphatase 137 H (38-126) U/L Total Protein 7.0 (6.3-8.2) g/dL Albumin 3.8 (3.5-5.1) g/dL Intake and Output 04/30/24 05/01/24 05/01/24 23:59 07:59 15:59 Intake Total 37.5 469.8 120 Output Total 300 Balance 37.5 169.8 120 Intake: IV 37.5 29.8 dilTIAZem 100 MG/100 ML 100 mg 37.5 29.8 In 100 ml @ 5 MG/HR 5 mls/hr IV CONT .Q20H STA Rx#:[id number] Oral 440 120 Output: Catheter Urine 300 Urethral Catheter 300 Patient Weight 05/01/24 23:59 Weight 94.6 kg
--- NOTE | 2024-05-01 17:08 | PM.IMPN ---
Progress Note: A&P Assessment and Plan (1) Acute on chronic hypoxic respiratory failure: Code(s): J96.21 - Acute and chronic respiratory failure with hypoxia Status: Acute Assessment and Plan: Status post BiPAP Currently on 3 L NC Trilogy Ellipta 1 puff daily Levalbuterol q.6 hours Pulmonology following Thoracocentesis possibly tomorrow Eliquis on hold (2) Acute heart failure with preserved ejection fraction (HFpEF): Code(s): I50.31 - Acute diastolic (congestive) heart failure Status: Acute Assessment and Plan: Continue Lasix 40 mg b.i.d. IV Dose of metolazone to facilitate diuresis as per Cardiology Continue amiodarone 200 mg p.o. q.d. (3) Atrial fibrillation with rapid ventricular response: Code(s): I48.91 - Unspecified atrial fibrillation Status: Acute Assessment and Plan: Continue amiodarone 200 mg p.o. q.d. Eliquis on hold (4) MARC (obstructive sleep apnea): Code(s): G47.33 - Obstructive sleep apnea (adult) (pediatric) Status: Acute Assessment and Plan: Apnea link Refused to use CPAP (5) Goals of care, counseling/discussion: Code(s): Z71.89 - Other specified counseling Status: Acute (6) Pleural effusion: Code(s): J90 - Pleural effusion, not elsewhere classified Status: Acute Assessment and Plan: CXR:Large bilateral pleural effusions, right greater than left. Interval increase from prior. Thoracentesis possibly tomorrow Eliquis on hold Subjective Date/time seen: 05/01/24 17:08 Interval history: Patient is comfortable. Patient is previous smoker. Patient is admitted in the setting of COPD exacerbation and atrial fibrillation. Possible thoracocentesis tomorrow. Eliquis is on hold. Review of Systems Review of Systems: Review of systems limited as the patient is on BiPAP. To his easy to arouse but was still somewhat sleepy. She is alert oriented times 4 but history was difficult to obtain due to BiPAP in clinical condition. Exam Narrative: Weight 98.9 kg BMI 39.9 Const: Other: No acute distress, sitting with head of bed at 72?, appears stated age HENMT: Other: BiPAP in place,head is normocephalic atraumatic, pupils are equal and reactive, lens replacements noted bilateral,no scleral icterus Neck: Other: no JVD, no lymphadenopathy Resp: Other: Coarse breath sounds bilaterally, no obvious wheeze, no increased work of breathing while on BiPAP Cardio: Other: regular rate, irregularregular rhythm, 2+ bilateral radial pedal pulses, no JVD GI: Other: soft, nontender, nondistended, positive bowel sounds Skin: Other: mild pallor, non jaundice, normal temperature to touch Neuro: Other: alert oriented x3, speech is clear but slow, no obvious facial asymmetry but exam limited due to presence of BiPAP Extrem: Other: 2 to 3+ pitting edema lower extremities, 1+ pitting edema right forearm, generally weak but moves all extremities equally Psych: Other: appropriate mood and affect, pleasant and cooperative, judgment and insight intact Objective Data Vital Signs Vital Signs: Vital Signs - 24 hr 04/30/24 17:23 04/30/24 17:48 04/30/24 17:55 Temperature 98.5 F Pulse Rate 97 113 H 114 H Respiratory Rate 27 H 32 H Blood Pressure 120/71 123/73 Pulse Oximetry 92 88 L Oxygen Delivery Oxygen Flow Rate Fraction of Inspired Oxygen 04/30/24 19:52 04/30/24 19:55 04/30/24 19:58 Temperature 98.2 F Pulse Rate 111 H 111 H 98 Respiratory Rate 24 H 24 H Blood Pressure 110/68 Pulse Oximetry 90 90 Oxygen Delivery High Flow Nasal Cannula Oxygen Flow Rate 10 Fraction of Inspired Oxygen 04/30/24 20:00 04/30/24 20:00 04/30/24 20:00 Temperature 98.2 F Pulse Rate 98 117 H 110 H Respiratory Rate 24 H Blood Pressure 110/68 110/68 Pulse Oximetry 90 Oxygen Delivery Oxygen Flow Rate Fraction of Inspired Oxygen 04/30/24 20:12 04/30/24 20:45 04/30/24 22:00 Temperature Pulse Rate 110 H 110 H 93 Respiratory Rate 24 H 24 H Blood Pressure Pulse Oximetry 90 Oxygen Delivery High Flow Nasal Cannula Oxygen Flow Rate 10 Fraction of Inspired Oxygen 04/30/24 22:00 04/30/24 22:33 04/30/24 23:05 Temperature 97.8 F Pulse Rate 95 100 96 Respiratory Rate 20 23 H Blood Pressure 118/77 118/77 Pulse Oximetry 92 94 Oxygen Delivery BiPAP Oxygen Flow Rate Fraction of Inspired Oxygen 05/01/24 00:00 05/01/24 00:00 05/01/24 00:00 Temperature 97.5 F L Pulse Rate 97 97 97 Respiratory Rate 31 H 31 H Blood Pressure 112/72 Pulse Oximetry 94 94 Oxygen Delivery BiPAP Oxygen Flow Rate Fraction of Inspired Oxygen 50 05/01/24 00:37 05/01/24 01:55 05/01/24 01:57 Temperature Pulse Rate 97 89 86 Respiratory Rate 22 H Blood Pressure 112/72 102/54 L Pulse Oximetry 92 Oxygen Delivery Oxygen Flow Rate Fraction of Inspired Oxygen 05/01/24 02:00 05/01/24 02:00 05/01/24 02:18 Temperature Pulse Rate 85 92 90 Respiratory Rate 20 Blood Pressure 102/54 L Pulse Oximetry Oxygen Delivery Oxygen Flow Rate Fraction of Inspired Oxygen 05/01/24 02:20 05/01/24 02:29 05/01/24 03:58 Temperature Pulse Rate 90 89 87 Respiratory Rate 20 19 Blood Pressure Pulse Oximetry 92 Oxygen Delivery BiPAP Oxygen Flow Rate Fraction of Inspired Oxygen 05/01/24 04:00 05/01/24 04:00 05/01/24 04:00 Temperature 97 F L Pulse Rate 89 84 89 Respiratory Rate 18 19 Blood Pressure 89/53 L Pulse Oximetry 92 95 Oxygen Delivery BiPAP Oxygen Flow Rate Fraction of Inspired Oxygen 50 05/01/24 05:20 05/01/24 06:00 05/01/24 07:35 Temperature 98.0 F Pulse Rate 88 83 89 Respiratory Rate 19 23 H Blood Pressure 101/65 Pulse Oximetry 93 95 Oxygen Delivery BiPAP Oxygen Flow Rate Fraction of Inspired Oxygen 05/01/24 07:36 05/01/24 07:55 05/01/24 08:00 Temperature Pulse Rate 107 H 109 H 104 H Respiratory Rate 20 20 18 Blood Pressure Pulse Oximetry 90 Oxygen Delivery Nasal Cannula Oxygen Flow Rate 10 Fraction of Inspired Oxygen 05/01/24 08:00 05/01/24 10:00 05/01/24 12:00 Temperature 97.5 F L Pulse Rate 97 103 H 100 Respiratory Rate 24 H Blood Pressure 104/60 Pulse Oximetry 85 L Oxygen Delivery Oxygen Flow Rate Fraction of Inspired Oxygen 05/01/24 12:00 05/01/24 12:00 05/01/24 14:00 Temperature Pulse Rate 115 H 104 H 103 H Respiratory Rate 18 Blood Pressure Pulse Oximetry 90 Oxygen Delivery Nasal Cannula Oxygen Flow Rate 10 Fraction of Inspired Oxygen 05/01/24 14:20 05/01/24 14:28 Temperature Pulse Rate 102 H 102 H Respiratory Rate 20 20 Blood Pressure Pulse Oximetry Oxygen Delivery Oxygen Flow Rate Fraction of Inspired Oxygen Intake/Output Intake/Output: Intake & Output 04/28/24 04/29/24 04/30/24 05/01/24 23:59 23:59 23:59 23:59 Intake Total 37.5 709.8 Output Total 300 Balance 37.5 409.8 Meds/Results Medications: Active Medications Generic Name Dose Route Start Last Admin Trade Name Freq PRN Reason Stop Dose Admin Acetaminophen 650 mg 04/30/24 16:00 Acetaminophen 325 Mg Tablet PO Q4H PRN Mild Pain (1-3) or Fever Amiodarone HCl 200 mg 05/01/24 00:10 05/01/24 01:55 Amiodarone Hcl 200 Mg Tablet PO 200 mg Q24H MIGUEL Administration Amlodipine Besylate 5 mg 05/01/24 09:00 05/01/24 09:40 Amlodipine Besylate 5 Mg Tablet PO Not Given DAILY MIGUEL Atorvastatin Calcium 40 mg 05/01/24 09:00 05/01/24 09:13 Atorvastatin 40 Mg Tablet PO 40 mg DAILY MIGUEL Administration Buspirone HCl 5 mg 05/01/24 09:00 05/01/24 09:13 Buspirone Hcl 5 Mg Tablet PO 5 mg BID MIGUEL Administration Fluticasone/Umeclidinium/Vilanterol 1 puff 05/01/24 08:00 05/01/24 14:22 Fluticasone/Umeclidin/Vilanter 100-62.5-25 Mcg Ellipta INHALATION Not Given DAILYRT MIGUEL Furosemide 40 mg 05/01/24 09:00 05/01/24 09:40 Furosemide Inj 40 Mg/4 Ml Vial IV PUSH Not Given BID MIGUEL Levalbuterol HCl 1.25 mg 05/01/24 08:00 05/01/24 14:20 Levalbuterol Neb 1.25 Mg/3 Ml INHALATION 1.25 mg Q6HRT MIGUEL Administration Levothyroxine Sodium 75 mcg 05/01/24 06:30 05/01/24 04:48 Levothyroxine Sodium 75 Mcg Tablet PO 75 mcg DAILY@0630 MIGUEL Administration Lidocaine 1 patch 05/01/24 09:00 05/01/24 09:14 Lidocaine 5% Patch TRANSDERM Not Given DAILY MIGUEL Loratadine 10 mg 05/01/24 09:00 05/01/24 09:13 Loratadine 10 Mg Tablet PO 10 mg DAILY MIGUEL Administration Magnesium Oxide 400 mg 05/01/24 09:00 05/01/24 09:12 Magnesium Oxide 400 Mg Tablet PO 400 mg QAM MIGUEL Administration Melatonin 5 mg 05/01/24 21:00 Melatonin 5 Mg Tablet PO HS MIGUEL Metoprolol Succinate 50 mg 05/01/24 09:00 05/01/24 09:41 Metoprolol Succinate Ext Rel 50 Mg Tabcr PO Not Given QAM MIGUEL Miscellaneous Information 0 each 05/01/24 00:01 Lidocaine Patch Add Site Of Use XX 05/31/24 00:00 CLARIFY MIGUEL Pantoprazole Sodium 40 mg 05/01/24 09:00 05/01/24 09:13 Pantoprazole 40 Mg Tablet PO 40 mg QAM MIGUEL Administration Potassium Chloride 20 meq 05/01/24 09:00 05/01/24 09:14 Potassium Chloride 20 Meq Er Tablet PO Not Given BID MIGUEL Senna/Docusate Sodium 2 tab 05/01/24 00:06 Senna/Docusate Sodium Tablet PO BID PRN Constipation Labs Labs: Laboratory Results - last 24 hr 04/30/24 04/30/24 04/30/24 17:26 19:31 20:26 WBC RBC Hgb Hct MCV MCH MCHC RDW Plt Count MPV Puncture Site Right brachial ABG pH 7.391 ABG pCO2 44.9 ABG pO2 59.2 L ABG PO2/FiO2 Ratio 1.32 ABG HCO3 26.6 H ABG O2 Saturation 90.4 L ABG O2 Content 15.5 L ABG Base Excess 1.3 A-a Gradient 210.6 Oxyhemoglobin 88.2 L Total Hemoglobin 12.5 O2 Delivery Device High flow nasal reji O2 Liters/Min 6.0 FiO2 45 Sodium Potassium Chloride Carbon Dioxide Anion Gap BUN Creatinine Estim Creat Clear Calc Estimated GFR Glucose Calcium Magnesium Troponin I < 0.012 < 0.012 05/01/24 04:43 WBC 5.8 RBC 3.79 L Hgb 11.0 L Hct 35.0 L MCV 92.3 MCH 29.0 MCHC 31.4 L RDW 15.7 H Plt Count 280 MPV 10.9 H Puncture Site ABG pH ABG pCO2 ABG pO2 ABG PO2/FiO2 Ratio ABG HCO3 ABG O2 Saturation ABG O2 Content ABG Base Excess A-a Gradient Oxyhemoglobin Total Hemoglobin O2 Delivery Device O2 Liters/Min FiO2 Sodium 136 L Potassium 5.1 H Chloride 97 L Carbon Dioxide 32 H Anion Gap 7 BUN 19 H Creatinine 0.97 Estim Creat Clear Calc 39 Estimated GFR 54 L Glucose 159 H Calcium 8.9 Magnesium 1.9 Troponin I Quality VTE Prophylaxis VTE prophylaxis: mechanical ordered (SCDs) Hospitalist MIPS Advance Care Plan I have confirmed that the patient's Advanced Care Plan is present, code status is documented, or surrogate decision maker is listed in patient medical record.: Yes Medication Reconciliation I have utilized all available resources to obtain, update and review the patients current medications (includes all prescriptions, OTC, herbals, cannabis, and nutritional supplements).: Yes
[2024-05-01] MEDS: FUROSEMIDE INJ 40 MG/4 ML VIAL IV PUSH (17:39)
[2024-05-01] MEDS: metOLazone 5 MG TABLET PO (18:44)
[2024-05-01] MEDS: MELATONIN 5 MG TABLET PO (22:11)
[2024-05-02] VITALS (28 sets, daily range): BP systolic 96–150; BP diastolic 55–81; PULSE 90–115; RESP 16–24; TEMP 36.4–36.6; O2SAT 89–96
[2024-05-02] MEDS: LEVALBUTEROL NEB 1.25 MG/3 ML INHALATION ×2 (02:49→09:57)
[2024-05-02 04:29] LABS: Hematocrit 31.3 % (37.0-47.0); Hemoglobin 9.8 g/dL (12.0-15.0); Mean Corpuscular HGB Conc 31.3 g/dl (32-36); Mean Corpuscular Hemoglobin 28.9 pg (26-34); Mean Corpuscular Volume 92.3 fl (80-100); Mean Platelet Volume 10.8 fl (7.4-10.4); Platelet Count Result 269 k/mm3 (150-375); Red Blood Count 3.39 M/mm3 (4.2-5.4); Red Cell Distribution Width 15.7 % (11.5-14.5); White Blood Count 9.7 K/mm3 (4.5-10.0)
[2024-05-02 04:43] LABS: Alanine Aminotransferase 18 U/L (6-35); Albumin Level 3.1 g/dL (3.5-5.1); Alkaline Phosphatase 109 U/L (38-126); Anion Gap 8 mmol/L (4-12); Aspartate Amino Transferase 17 U/L (14-36); Bilirubin,Total 0.5 mg/dL (0.2-1.3); Blood Urea Nitrogen 27 mg/dL (7-17); Calcium 8.4 mg/dL (8.4-10.2); Carbon Dioxide 29 mmol/L (22-30); Chloride 96 mmol/L (98-107); Estimated CRCL calculation 39 ml/min; Estimated Glomerular Filt Rate 53; Glucose 130 mg/dL (65-110); Potassium 4.5 mmol/L (3.4-5.0); Sodium 133 mmol/L (137-145)
[2024-05-02] MEDS: LEVOTHYROXINE SODIUM 75 MCG TABLET PO (06:52)
[2024-05-02 08:58] LABS: NT Pro B Type Natriuretic Pept 5860 pg/mL (19.9-100)
[2024-05-02] MEDS: PANTOPRAZOLE 40 MG TABLET PO (09:40)
[2024-05-02] MEDS: busPIRone HCL 5 MG TABLET PO ×2 (09:41→17:00)
[2024-05-02] MEDS: LORATADINE 10 MG TABLET PO (09:41)
[2024-05-02] MEDS: ATORVASTATIN 40 MG TABLET PO (09:41)
[2024-05-02] MEDS: POTASSIUM CHLORIDE 20 MEQ ER TABLET PO ×2 (09:41→17:00)
[2024-05-02] MEDS: MAGNESIUM OXIDE 400 MG TABLET PO (09:41)
[2024-05-02] MEDS: FLUTICASONE/UMECLIDIN/VILANTER 100-62.5-25 MCG ELLIPTA 1 PUFF INHALATION (09:57)
--- NOTE | 2024-05-02 10:26 | PM.IMPN ---
Progress Note: A&P Assessment and Plan (1) Acute on chronic hypoxic respiratory failure: Code(s): J96.21 - Acute and chronic respiratory failure with hypoxia Status: Acute Assessment and Plan: Status post BiPAP Currently on 3 L NC Trilogy Ellipta 1 puff daily Levalbuterol q.6 hours Pulmonology following Thoracocentesis possibly tomorrow Eliquis on hold (2) Acute heart failure with preserved ejection fraction (HFpEF): Code(s): I50.31 - Acute diastolic (congestive) heart failure Status: Acute Assessment and Plan: Continue Lasix 40 mg b.i.d. IV Dose of metolazone to facilitate diuresis as per Cardiology Continue amiodarone 200 mg p.o. q.d. (3) Atrial fibrillation with rapid ventricular response: Code(s): I48.91 - Unspecified atrial fibrillation Status: Acute Assessment and Plan: Continue amiodarone 200 mg p.o. q.d. Eliquis on hold (4) MARC (obstructive sleep apnea): Code(s): G47.33 - Obstructive sleep apnea (adult) (pediatric) Status: Acute Assessment and Plan: Apnea link Refused to use CPAP (5) Goals of care, counseling/discussion: Code(s): Z71.89 - Other specified counseling Status: Acute (6) Pleural effusion: Code(s): J90 - Pleural effusion, not elsewhere classified Status: Acute Assessment and Plan: CXR:Large bilateral pleural effusions, right greater than left. Interval increase from prior. Thoracentesis possibly tomorrow Eliquis on hold Subjective Date/time seen: 05/02/24 10:26 Interval history: Ordered thoracentesis with pleural fluid analysis including cytology. Patient BNP has been increased. Currently holding Lasix 40 mg b.i.d. due to soft blood pressure and as needed metolazone from Cardiology. Discussed with Dr. Davies. Patient will bring home BiPAP machine. Will do 1 dose of albumin and 40mg Lasix x 1. Pending transfer to [facility] Review of Systems Review of Systems: Review of systems limited as the patient is on BiPAP. To his easy to arouse but was still somewhat sleepy. She is alert oriented times 4 but history was difficult to obtain due to BiPAP in clinical condition. Exam Narrative: Weight 98.9 kg BMI 39.9 Const: Other: No acute distress, sitting with head of bed at 72?, appears stated age HENMT: Other: BiPAP in place,head is normocephalic atraumatic, pupils are equal and reactive, lens replacements noted bilateral,no scleral icterus Neck: Other: no JVD, no lymphadenopathy Resp: Other: Coarse breath sounds bilaterally, no obvious wheeze, no increased work of breathing while on BiPAP Cardio: Other: regular rate, irregularregular rhythm, 2+ bilateral radial pedal pulses, no JVD GI: Other: soft, nontender, nondistended, positive bowel sounds Skin: Other: mild pallor, non jaundice, normal temperature to touch Neuro: Other: alert oriented x3, speech is clear but slow, no obvious facial asymmetry but exam limited due to presence of BiPAP Extrem: Other: 2 to 3+ pitting edema lower extremities, 1+ pitting edema right forearm, generally weak but moves all extremities equally Psych: Other: appropriate mood and affect, pleasant and cooperative, judgment and insight intact Objective Data Vital Signs Vital Signs: Vital Signs - 24 hr 05/01/24 12:00 05/01/24 12:00 05/01/24 12:00 Temperature 97.5 F L Pulse Rate 100 115 H 104 H Respiratory Rate 24 H 18 Blood Pressure 104/60 Pulse Oximetry 85 L 90 Oxygen Delivery Nasal Cannula Oxygen Flow Rate 10 Fraction of Inspired Oxygen 05/01/24 14:00 05/01/24 14:20 05/01/24 14:28 Temperature Pulse Rate 103 H 102 H 102 H Respiratory Rate 20 20 Blood Pressure Pulse Oximetry Oxygen Delivery Oxygen Flow Rate Fraction of Inspired Oxygen 05/01/24 16:00 05/01/24 16:00 05/01/24 16:00 Temperature 97.7 F Pulse Rate 100 104 H 104 H Respiratory Rate 18 18 Blood Pressure 114/64 Pulse Oximetry 88 L 90 Oxygen Delivery Nasal Cannula Oxygen Flow Rate 10 Fraction of Inspired Oxygen 05/01/24 18:00 05/01/24 20:00 05/01/24 20:00 Temperature 97.7 F Pulse Rate 100 107 H 101 H Respiratory Rate 18 Blood Pressure Pulse Oximetry 90 Oxygen Delivery Oxygen Flow Rate Fraction of Inspired Oxygen 05/01/24 20:58 05/01/24 20:58 05/01/24 21:03 Temperature Pulse Rate 105 H 101 H Respiratory Rate 16 16 Blood Pressure Pulse Oximetry 91 Oxygen Delivery High Flow Nasal Cannula Oxygen Flow Rate 12 Fraction of Inspired Oxygen 05/01/24 21:30 05/01/24 21:30 05/01/24 21:58 Temperature Pulse Rate 107 H Respiratory Rate 18 Blood Pressure 99/58 L 103/63 Pulse Oximetry 90 Oxygen Delivery High Flow Nasal Cannula Oxygen Flow Rate 12 Fraction of Inspired Oxygen 05/01/24 22:00 05/01/24 22:11 05/02/24 00:00 Temperature 97.7 F Pulse Rate 109 H 102 H 100 Respiratory Rate 20 Blood Pressure 150/81 H Pulse Oximetry 92 Oxygen Delivery Oxygen Flow Rate Fraction of Inspired Oxygen 05/02/24 00:00 05/02/24 00:25 05/02/24 01:00 Temperature Pulse Rate 99 92 100 Respiratory Rate 21 H 20 Blood Pressure Pulse Oximetry 93 92 Oxygen Delivery BiPAP BiPAP Oxygen Flow Rate Fraction of Inspired Oxygen 50 05/02/24 02:00 05/02/24 02:50 05/02/24 02:50 Temperature Pulse Rate 99 94 94 Respiratory Rate 21 H 21 H Blood Pressure Pulse Oximetry 94 Oxygen Delivery BiPAP Oxygen Flow Rate Fraction of Inspired Oxygen 05/02/24 03:00 05/02/24 04:00 05/02/24 04:00 Temperature 97.7 F Pulse Rate 94 99 105 H Respiratory Rate 21 H 22 H Blood Pressure 98/58 L Pulse Oximetry 93 Oxygen Delivery Oxygen Flow Rate Fraction of Inspired Oxygen 05/02/24 05:30 05/02/24 06:00 05/02/24 08:00 Temperature 97.9 F Pulse Rate 99 98 107 H Respiratory Rate 22 H 22 H Blood Pressure 111/55 L Pulse Oximetry 94 89 L Oxygen Delivery BiPAP Oxygen Flow Rate Fraction of Inspired Oxygen 50 05/02/24 09:58 05/02/24 09:58 05/02/24 10:08 Temperature Pulse Rate 112 H 108 H Respiratory Rate 24 H 24 H Blood Pressure Pulse Oximetry 93 Oxygen Delivery High Flow Nasal Cannula Oxygen Flow Rate 12 Fraction of Inspired Oxygen Intake/Output Intake/Output: Intake & Output 04/29/24 04/30/24 05/01/24 05/02/24 23:59 23:59 23:59 23:59 Intake Total 37.5 829.8 236 Output Total 550 900 Balance 37.5 279.8 -664 Meds/Results Medications: Active Medications Generic Name Dose Route Start Last Admin Trade Name Ignacio PRN Reason Stop Dose Admin Acetaminophen 650 mg 04/30/24 16:00 Acetaminophen 325 Mg Tablet PO Q4H PRN Mild Pain (1-3) or Fever Amiodarone HCl 200 mg 05/01/24 22:00 05/01/24 22:11 Amiodarone Hcl 200 Mg Tablet PO 200 mg Q24H MIGUEL Administration Amlodipine Besylate 5 mg 05/01/24 09:00 05/01/24 09:40 Amlodipine Besylate 5 Mg Tablet PO Not Given DAILY MIGUEL Atorvastatin Calcium 40 mg 05/01/24 09:00 05/02/24 09:41 Atorvastatin 40 Mg Tablet PO 40 mg DAILY MIGUEL Administration Buspirone HCl 5 mg 05/01/24 09:00 05/02/24 09:41 Buspirone Hcl 5 Mg Tablet PO 5 mg BID MIGUEL Administration Fluticasone/Umeclidinium/Vilanterol 1 puff 05/01/24 08:00 05/02/24 09:57 Fluticasone/Umeclidin/Vilanter 100-62.5-25 Mcg Ellipta INHALATION 1 puff DAILYRT MIGUEL Administration Furosemide 40 mg 05/01/24 09:00 05/01/24 17:39 Furosemide Inj 40 Mg/4 Ml Vial IV PUSH 40 mg BID MIGUEL Administration Levalbuterol HCl 1.25 mg 05/01/24 08:00 05/02/24 09:57 Levalbuterol Neb 1.25 Mg/3 Ml INHALATION 1.25 mg Q6HRT MIGUEL Administration Levothyroxine Sodium 75 mcg 05/01/24 06:30 05/02/24 06:52 Levothyroxine Sodium 75 Mcg Tablet PO 75 mcg DAILY@0630 IMGUEL Administration Lidocaine 1 patch 05/01/24 09:00 05/02/24 09:41 Lidocaine 5% Patch TRANSDERM Not Given DAILY MIGUEL Loratadine 10 mg 05/01/24 09:00 05/02/24 09:41 Loratadine 10 Mg Tablet PO 10 mg DAILY MIGUEL Administration Magnesium Oxide 400 mg 05/01/24 09:00 05/02/24 09:41 Magnesium Oxide 400 Mg Tablet PO 400 mg QAM MIGUEL Administration Melatonin 5 mg 05/01/24 21:00 05/01/24 22:11 Melatonin 5 Mg Tablet PO 5 mg HS MIGUEL Administration Metoprolol Succinate 50 mg 05/01/24 09:00 05/01/24 09:41 Metoprolol Succinate Ext Rel 50 Mg Tabcr PO Not Given QAM MIGUEL Miscellaneous Information 0 each 05/01/24 00:01 05/02/24 06:50 Lidocaine Patch Add Site Of Use XX 05/31/24 00:00 Not Given CLARIFY MIGUEL Pantoprazole Sodium 40 mg 05/01/24 09:00 05/02/24 09:40 Pantoprazole 40 Mg Tablet PO 40 mg QAM MIGUEL Administration Potassium Chloride 20 meq 05/01/24 09:00 05/02/24 09:41 Potassium Chloride 20 Meq Er Tablet PO 20 meq BID MIGUEL Administration Senna/Docusate Sodium 2 tab 05/01/24 00:06 Senna/Docusate Sodium Tablet PO BID PRN Constipation Labs Labs: Laboratory Results - last 24 hr 05/02/24 05/02/24 04:17 04:21 WBC 9.7 RBC 3.39 L Hgb 9.8 L Hct 31.3 L MCV 92.3 MCH 28.9 MCHC 31.3 L RDW 15.7 H Plt Count 269 MPV 10.8 H Sodium 133 L Potassium 4.5 Chloride 96 L Carbon Dioxide 29 Anion Gap 8 BUN 27 H Creatinine 0.99 Estim Creat Clear Calc 39 Estimated GFR 53 L Glucose 130 H Calcium 8.4 Total Bilirubin 0.5 AST 17 ALT 18 Alkaline Phosphatase 109 NT-Pro-B Natriuret Pep 5860 H Total Protein 6.0 L Albumin 3.1 L Quality VTE Prophylaxis VTE prophylaxis: mechanical ordered (SCDs) Hospitalist MIPS Advance Care Plan I have confirmed that the patient's Advanced Care Plan is present, code status is documented, or surrogate decision maker is listed in patient medical record.: Yes Medication Reconciliation I have utilized all available resources to obtain, update and review the patients current medications (includes all prescriptions, OTC, herbals, cannabis, and nutritional supplements).: Yes
--- NOTE | 2024-05-02 10:32 | P.PNCA_ITS ---
Progress Note: A&P Assessment and Plan (1) CHF (congestive heart failure): Code(s): I50.9 - Heart failure, unspecified Status: Acute Plan 1. Acute on chronic heart failure with preserved LVEF 2. Atrial fibrillation with RVR. Persistent atrial fibrillation. Diagnosed in January 2024, s/p EVY-guided DCCV on 01/23/2024. However, went back into AFIB shortly afterwards. 3. Acute on chronic hypoxic respiratory failure, on home oxygen. 4. Hypertension 5. Hyperlipidemia 6. COPD 7. MARC 8. Hypothyroidism 9. GERD 10. Pleural effusion-chest x-ray reportedly showed Large bilateral pleural effusions, right greater than left. Interval increase from prior. PLAN: -diuresis with furosemide with close monitoring of electrolytes and renal function. May use adjunctive metolazone to facilitate diuresis. -patient in AFib with RVR, heart rates in the 100s. May continue amiodarone for now. Change metoprolol succinate to metoprolol tartrate with holding parameters. Discontinue amlodipine to leave room for rate controlling agents. Anticoagulation with apixaban is on hold in anticipation for thoracentesis. -management of respiratory failure as per pulmonology and primary team. -spoke at length with the patient, her grand daughter and grandson. They prefer to transfer patient to [facility]. Transfer arrangements as per primary team. Subjective Date/time seen: 05/02/24 10:32 Interval history: 05/02/2024-patient is lying down in the bed. She reports modest improvement in dyspnea. No chest pain. Reports lower extremity swelling. Patient's granddaughter and grandson in the room at the time of evaluation. On telemetry, patient has been in atrial fibrillation with RVR with heart rates in 100s. Patient is awaiting transfer to [facility] as per patient and her family's preference. Review of Systems Review of Systems: General: Positive for fatigue Psychological: Negative for anxiety, depression Ophthalmic: negative for loss of vision ENT: Negative for epistaxis, headaches Allergy and immunology: Negative for hives, nasal congestion Hematologic and lymphatic: Negative for overt bleeding problems Endocrine: Negative for hot flashes, palpitations Respiratory: Positive for dyspnea Cardiovascular: Negative for chest pain, positive for dyspnea Gastrointestinal: Negative for abdominal pain, nausea, vomiting, hematochezia Musculoskeletal: Positive for leg swelling Neurological: Negative for weakness Dermatological: Negative for rash, skin discoloration Exam Narrative: PHYSICAL EXAMINATION: GENERAL: Elderly female, alert, no acute distress MENTAL STATUS: affect appropriate to mood EYES: Extraocular movements intact, no pallor EARS: External ears appear normal, hearing grossly normal NOSE: Normal and patent, no discharge MOUTH: Mucous membranes moist, tongue normal NECK: JVD CHEST: Absent breath sounds at base HEART: Tachycardia, irregularly irregular rhythm ABDOMEN: Soft, nontender NEUROLOGICAL: Alert, oriented, normal speech MUSCULOSKELETAL: No major deformity, no amputation EXTREMITIES: Bilateral pedal edema SKIN: no rash on the exposed area, no cyanosis PSYCHIATRIC: Normal mood, appropriate affect Objective Data Vital Signs Vital Signs: Vital Signs - 24 hr 05/01/24 12:00 05/01/24 12:00 05/01/24 12:00 Temperature 36.4 C L Pulse Rate 100 115 H 104 H Respiratory Rate 24 H 18 Blood Pressure 104/60 Pulse Oximetry 85 L 90 Oxygen Delivery Nasal Cannula Oxygen Flow Rate 10 Fraction of Inspired Oxygen 05/01/24 14:00 05/01/24 14:20 05/01/24 14:28 Temperature Pulse Rate 103 H 102 H 102 H Respiratory Rate 20 20 Blood Pressure Pulse Oximetry Oxygen Delivery Oxygen Flow Rate Fraction of Inspired Oxygen 05/01/24 16:00 05/01/24 16:00 05/01/24 16:00 Temperature 36.5 C Pulse Rate 100 104 H 104 H Respiratory Rate 18 18 Blood Pressure 114/64 Pulse Oximetry 88 L 90 Oxygen Delivery Nasal Cannula Oxygen Flow Rate 10 Fraction of Inspired Oxygen 05/01/24 18:00 05/01/24 20:00 05/01/24 20:00 Temperature 36.5 C Pulse Rate 100 107 H 101 H Respiratory Rate 18 Blood Pressure Pulse Oximetry 90 Oxygen Delivery Oxygen Flow Rate Fraction of Inspired Oxygen 05/01/24 20:58 05/01/24 20:58 05/01/24 21:03 Temperature Pulse Rate 105 H 101 H Respiratory Rate 16 16 Blood Pressure Pulse Oximetry 91 Oxygen Delivery High Flow Nasal Cannula Oxygen Flow Rate 12 Fraction of Inspired Oxygen 05/01/24 21:30 05/01/24 21:30 05/01/24 21:58 Temperature Pulse Rate 107 H Respiratory Rate 18 Blood Pressure 99/58 L 103/63 Pulse Oximetry 90 Oxygen Delivery High Flow Nasal Cannula Oxygen Flow Rate 12 Fraction of Inspired Oxygen 05/01/24 22:00 05/01/24 22:11 05/02/24 00:00 Temperature 36.5 C Pulse Rate 109 H 102 H 100 Respiratory Rate 20 Blood Pressure 150/81 H Pulse Oximetry 92 Oxygen Delivery Oxygen Flow Rate Fraction of Inspired Oxygen 05/02/24 00:00 05/02/24 00:25 05/02/24 01:00 Temperature Pulse Rate 99 92 100 Respiratory Rate 21 H 20 Blood Pressure Pulse Oximetry 93 92 Oxygen Delivery BiPAP BiPAP Oxygen Flow Rate Fraction of Inspired Oxygen 50 05/02/24 02:00 05/02/24 02:50 05/02/24 02:50 Temperature Pulse Rate 99 94 94 Respiratory Rate 21 H 21 H Blood Pressure Pulse Oximetry 94 Oxygen Delivery BiPAP Oxygen Flow Rate Fraction of Inspired Oxygen 05/02/24 03:00 05/02/24 04:00 05/02/24 04:00 Temperature 36.5 C Pulse Rate 94 99 105 H Respiratory Rate 21 H 22 H Blood Pressure 98/58 L Pulse Oximetry 93 Oxygen Delivery Oxygen Flow Rate Fraction of Inspired Oxygen 05/02/24 05:30 05/02/24 06:00 05/02/24 08:00 Temperature 36.6 C Pulse Rate 99 98 107 H Respiratory Rate 22 H 22 H Blood Pressure 111/55 L Pulse Oximetry 94 89 L Oxygen Delivery BiPAP Oxygen Flow Rate Fraction of Inspired Oxygen 50 05/02/24 09:58 05/02/24 09:58 05/02/24 10:08 Temperature Pulse Rate 112 H 108 H Respiratory Rate 24 H 24 H Blood Pressure Pulse Oximetry 93 Oxygen Delivery High Flow Nasal Cannula Oxygen Flow Rate 12 Fraction of Inspired Oxygen Intake/Output Intake/Output: Intake & Output 04/29/24 04/30/24 05/01/24 05/02/24 23:59 23:59 23:59 23:59 Intake Total 37.5 829.8 236 Output Total 550 900 Balance 37.5 279.8 -664 Meds/Results Medications: Active Medications Generic Name Dose Route Start Last Admin Trade Name Freq PRN Reason Stop Dose Admin Acetaminophen 650 mg 04/30/24 16:00 Acetaminophen 325 Mg Tablet PO Q4H PRN Mild Pain (1-3) or Fever Amiodarone HCl 200 mg 05/01/24 22:00 05/01/24 22:11 Amiodarone Hcl 200 Mg Tablet PO 200 mg Q24H MIGUEL Administration Amlodipine Besylate 5 mg 05/01/24 09:00 05/01/24 09:40 Amlodipine Besylate 5 Mg Tablet PO Not Given DAILY MIGUEL Atorvastatin Calcium 40 mg 05/01/24 09:00 05/02/24 09:41 Atorvastatin 40 Mg Tablet PO 40 mg DAILY MIGUEL Administration Buspirone HCl 5 mg 05/01/24 09:00 05/02/24 09:41 Buspirone Hcl 5 Mg Tablet PO 5 mg BID MIGUEL Administration Fluticasone/Umeclidinium/Vilanterol 1 puff 05/01/24 08:00 05/02/24 09:57 Fluticasone/Umeclidin/Vilanter 100-62.5-25 Mcg Ellipta INHALATION 1 puff DAILYRT MIGUEL Administration Furosemide 40 mg 05/01/24 09:00 05/01/24 17:39 Furosemide Inj 40 Mg/4 Ml Vial IV PUSH 40 mg BID MIGUEL Administration Levalbuterol HCl 1.25 mg 05/01/24 08:00 05/02/24 09:57 Levalbuterol Neb 1.25 Mg/3 Ml INHALATION 1.25 mg Q6HRT MIGUEL Administration Levothyroxine Sodium 75 mcg 05/01/24 06:30 05/02/24 06:52 Levothyroxine Sodium 75 Mcg Tablet PO 75 mcg DAILY@0630 MIGUEL Administration Lidocaine 1 patch 05/01/24 09:00 05/02/24 09:41 Lidocaine 5% Patch TRANSDERM Not Given DAILY MIGUEL Loratadine 10 mg 05/01/24 09:00 05/02/24 09:41 Loratadine 10 Mg Tablet PO 10 mg DAILY MIGUEL Administration Magnesium Oxide 400 mg 05/01/24 09:00 05/02/24 09:41 Magnesium Oxide 400 Mg Tablet PO 400 mg QAM MIGUEL Administration Melatonin 5 mg 05/01/24 21:00 05/01/24 22:11 Melatonin 5 Mg Tablet PO 5 mg HS MIGUEL Administration Metoprolol Succinate 50 mg 05/01/24 09:00 05/01/24 09:41 Metoprolol Succinate Ext Rel 50 Mg Tabcr PO Not Given QAM MIGUEL Miscellaneous Information 0 each 05/01/24 00:01 05/02/24 06:50 Lidocaine Patch Add Site Of Use XX 05/31/24 00:00 Not Given CLARIFY MIGUEL Pantoprazole Sodium 40 mg 05/01/24 09:00 05/02/24 09:40 Pantoprazole 40 Mg Tablet PO 40 mg QAM MIGUEL Administration Potassium Chloride 20 meq 05/01/24 09:00 05/02/24 09:41 Potassium Chloride 20 Meq Er Tablet PO 20 meq BID MIGUEL Administration Senna/Docusate Sodium 2 tab 05/01/24 00:06 Senna/Docusate Sodium Tablet PO BID PRN Constipation Labs Labs: Laboratory Results - last 24 hr 05/02/24 05/02/24 04:17 04:21 WBC 9.7 RBC 3.39 L Hgb 9.8 L Hct 31.3 L MCV 92.3 MCH 28.9 MCHC 31.3 L RDW 15.7 H Plt Count 269 MPV 10.8 H Sodium 133 L Potassium 4.5 Chloride 96 L Carbon Dioxide 29 Anion Gap 8 BUN 27 H Creatinine 0.99 Estim Creat Clear Calc 39 Estimated GFR 53 L Glucose 130 H Calcium 8.4 Total Bilirubin 0.5 AST 17 ALT 18 Alkaline Phosphatase 109 NT-Pro-B Natriuret Pep 5860 H Total Protein 6.0 L Albumin 3.1 L
--- NOTE | 2024-05-02 10:59 | PM.PNPUL ---
Progress Note: A&P Assessment and Plan (1) Chronic respiratory failure: Qualifiers: Respiratory failure complication: hypoxia Qualified Code(s): J96.11 - Chronic respiratory failure with hypoxia Code(s): J96.10 - Chronic respiratory failure, unspecified whether with hypoxia or hypercapnia Status: Acute Assessment and Plan: This 88-year-old female patient, with a history of mild COPD managed with maintenance bronchodilators and chronic hypoxemia treated with supplemental oxygen, has untreated sleep apnea and also atrial fibrillation for which she is receiving treatment, including anticoagulants. Last month, she was hospitalized due to respiratory failure initially caused by a pneumothorax. However, hypoxemic respiratory failure, particularly nocturnal hypoxemia, persisted due to congestive heart failure, as evidenced by a chest X-ray showing pulmonary edema and bilateral pleural effusions. The patient responded well to treatment for congestive heart failure, with radiographic evidence showing a reduction in the size of bilateral pleural effusions. Despite having mild sleep apnea, the patient refused to use CPAP. During her last hospitalization, she was placed on BiPAP support with supplemental oxygen at 3 liters per minute, and an ApneaLink study showed no significant oxyhemoglobin desaturation. Under these settings, the patient was discharged to a retirement while efforts were made to obtain insurance approval for a home ventilator due to her unstable cardiorespiratory status and complications from chronic nocturnal hypoxemia. 05/01/24: While in the retirement, the patient reported issues with BiPAP support at night. I suspect this hospitalization was prompted by an increase in pleural effusions due to worsening congestive heart failure. There is no evidence of a COPD exacerbation or lower respiratory tract infection. Plan: Continue with the current BiPAP support settings of 12/8 and supplemental oxygen at night. BiPAP support may be used as needed during the day. Eliquis is on hold for the right thoracentesis, which is acceptable. The thoracentesis pleural fluid analysis is expected to confirm congestive heart failure as the cause of the effusion. Discontinue IV steroids. Continue with short-acting bronchodilators on an as-needed basis. I will continue to follow the patient along with you. 05/02/24: Overall the patient tells me she has improved from admission. States she has 60% back to her normal. She is the same as yesterday. She has minimal cough with no phlegm production. She is afebrile. White blood cell count 9.7, creatinine 0.99, BNP is 5860 increased from 3800 on 04/30/2024. Cumulative diuresis since admission is 583 mL. Her weight is 94 kilos with an admission weight of 98.9 kilos. Currently she is on 12 L nasal cannula saturation 90-92%. Patient wore hospital BiPAP with rate of 14, pressures 10/5 and 50% FiO2 with a fullface mask and she said she slept well and this was the most comfortable mask she had used. Plan: I will continue her trelegy 100 and discontinue her levalbuterol nebulizers. there is no evidence of a pulmonary infection and agree with no antibiotics. There is no indication for steroids at this time. The patient remains on 12 L high-flow nasal cannula oxygen and her Eliquis is on hold for thoracentesis on 05/04/2024. Patient is being diuresed as aggressively as tolerated per Cardiology and hospitalist teams. I spoke to the grand daughter on the phone and she will bring her home BiPAP machine in the hospital and if this is functioning properly will try to change her fullface mask to the hospital's full face mask and then perform an overnight oximetry on current settings with 6 L bleed in. Patient to be transferred to [facility]. Awaiting bed. Discussed with grand daughter on the phone and Dr. Anand, will follow with you. Subjective Date/time seen: 05/02/24 10:59 Interval history: New Consult date: 05/01/24 Chief complaint: CHF/COPD/PLEURAL EFFUSION/AFIB W RVR/ANXIETY Narrative: This 88-year-old patient presented with shortness of breath and hypoxemia. She is well known to Pulmonary Services, having been hospitalized from early March to early April for respiratory failure initially related to a traumatic pneumothorax and subsequently to congestive heart failure with bilateral pleural effusions. She required ventilatory support via BiPAP and supplemental oxygen due to persistent nocturnal hypoxemia. During that hospitalization, workup revealed severe biatrial enlargement on echocardiogram, elevated pulmonary artery systolic pressure at 42 mmHg, and atrial fibrillation. Her respiratory failure was attributed to congestive heart failure with pulmonary hypertension, likely related to left ventricular diastolic dysfunction and untreated sleep apnea. The patient was discharged to a retirement with supplemental oxygen at 3 liters per minute and BiPAP support at settings of 12/8 while awaiting approval for a home ventilator for her cardiorespiratory condition. While in the retirement, it was reported that the patient used BiPAP support and supplemental oxygen, although not in a bleed-in fashion, and she mentioned that the BiPAP mask might have fallen off during sleep. During a follow-up visit at the pulmonary clinic, she was found to have hypoxemia. Upon questioning, she admitted to experiencing increased shortness of breath over the past few days but denied other respiratory symptoms such as chest pain, palpitations, fever, chills, or increased lower extremity edema. She was compliant with her medications for congestive heart failure and atrial fibrillation, including Eliquis. Emergency room evaluation with a chest X-ray showed increased pleural effusions, larger on the right, with no new infiltrates. The patient received treatment with BiPAP support at night and supplemental oxygen at a higher flow rate of 10 liters per minute. Along with her cardiac medications, she is currently receiving Solu-Medrol IV and nebulized short-acting bronchodilators, while Eliquis has been held to allow for thoracentesis. Currently, she experiences no shortness of breath while on supplemental oxygen. 05/02/24: Overall the patient tells me she has improved from admission. States she has 60% back to her normal. She is the same as yesterday. She has minimal cough with no phlegm production. She is afebrile. White blood cell count 9.7, creatinine 0.99, BNP is 5860 increased from 3800 on 04/30/2024. Cumulative diuresis since admission is 583 mL. Her weight is 94 kilos with an admission weight of 98.9 kilos. Currently she is on 12 L nasal cannula saturation 90-92%. Patient wore hospital BiPAP with rate of 14, pressures 10/5 and 50% FiO2 with a fullface mask and she said she slept well and this was the most comfortable mask she had used. Review of Systems Constitutional: Constitutional: Reports no additional constitutional complaints Eyes: Eyes: Reports no additional eye complaints ENT: Reports system reviewed and no additional complaints, except as documented Cardiovascular: Cardiovascular: Reports no additional cardiovascular complaints Respiratory: Respiratory: Reports no additional respiratory complaints Gastrointestinal: Gastrointestinal: Reports no additional gastrointestinal complaints Musculoskeletal: Musculoskeletal: Reports no additional musculoskeletal complaints Neurologic: Reports system reviewed and no additional complaints, except as documented Psychiatric: Psychiatric: Reports no additional psychiatric complaints Endocrine: Endocrine: Reports no additional endocrine complaints Hematologic/Lymphatic: Hematologic/Lymphatic: Reports no additional hematologic/lymphatic complaints Allergic/Immunologic: Allergic/Immunologic: Reports no additional allergic/immunologic complaints Exam Const: General: cooperative, comfortable and no acute distress Orientation/consciousness: oriented to person, oriented to place and oriented to time HENMT: Head: normal to inspection Ears: hearing grossly normal bilaterally Eyes: General: appearance normal, both eyes and all related structures Neck: Neck: normal visual inspection Chest: Chest palpation & inspection: normal inspection of the chest Resp: Effort & Inspection: normal respiratory effort and able to speak in complete sentences Auscultation: no crackles, no rales, no rhonchi, no wheezes and lung sounds not diminished Other: Decreased breath sounds, crackles in bases. Cardio: Jugular venous distension: no JVD GI: Inspection: normal to inspection GI Palp: No abdominal tenderness Skin: General skin exam: normal color Neuro: General: oriented to person, oriented to place and oriented to time Extrem: General: normal to inspection and edema Psych: Appearance: grossly normal Objective Data Vital Signs Vital Signs: Vital Signs - 24 hr 05/01/24 12:00 05/01/24 12:00 05/01/24 12:00 Temperature 36.4 C L Pulse Rate 100 115 H 104 H Respiratory Rate 24 H 18 Blood Pressure 104/60 Pulse Oximetry 85 L 90 Oxygen Delivery Nasal Cannula Oxygen Flow Rate 10 Fraction of Inspired Oxygen 05/01/24 14:00 05/01/24 14:20 05/01/24 14:28 Temperature Pulse Rate 103 H 102 H 102 H Respiratory Rate 20 20 Blood Pressure Pulse Oximetry Oxygen Delivery Oxygen Flow Rate Fraction of Inspired Oxygen 05/01/24 16:00 05/01/24 16:00 05/01/24 16:00 Temperature 36.5 C Pulse Rate 100 104 H 104 H Respiratory Rate 18 18 Blood Pressure 114/64 Pulse Oximetry 88 L 90 Oxygen Delivery Nasal Cannula Oxygen Flow Rate 10 Fraction of Inspired Oxygen 05/01/24 18:00 05/01/24 20:00 05/01/24 20:00 Temperature 36.5 C Pulse Rate 100 107 H 101 H Respiratory Rate 18 Blood Pressure Pulse Oximetry 90 Oxygen Delivery Oxygen Flow Rate Fraction of Inspired Oxygen 05/01/24 20:58 05/01/24 20:58 05/01/24 21:03 Temperature Pulse Rate 105 H 101 H Respiratory Rate 16 16 Blood Pressure Pulse Oximetry 91 Oxygen Delivery High Flow Nasal Cannula Oxygen Flow Rate 12 Fraction of Inspired Oxygen 05/01/24 21:30 05/01/24 21:30 05/01/24 21:58 Temperature Pulse Rate 107 H Respiratory Rate 18 Blood Pressure 99/58 L 103/63 Pulse Oximetry 90 Oxygen Delivery High Flow Nasal Cannula Oxygen Flow Rate 12 Fraction of Inspired Oxygen 05/01/24 22:00 05/01/24 22:11 05/02/24 00:00 Temperature 36.5 C Pulse Rate 109 H 102 H 100 Respiratory Rate 20 Blood Pressure 150/81 H Pulse Oximetry 92 Oxygen Delivery Oxygen Flow Rate Fraction of Inspired Oxygen 05/02/24 00:00 05/02/24 00:25 05/02/24 01:00 Temperature Pulse Rate 99 92 100 Respiratory Rate 21 H 20 Blood Pressure Pulse Oximetry 93 92 Oxygen Delivery BiPAP BiPAP Oxygen Flow Rate Fraction of Inspired Oxygen 50 05/02/24 02:00 05/02/24 02:50 05/02/24 02:50 Temperature Pulse Rate 99 94 94 Respiratory Rate 21 H 21 H Blood Pressure Pulse Oximetry 94 Oxygen Delivery BiPAP Oxygen Flow Rate Fraction of Inspired Oxygen 05/02/24 03:00 05/02/24 04:00 05/02/24 04:00 Temperature 36.5 C Pulse Rate 94 99 105 H Respiratory Rate 21 H 22 H Blood Pressure 98/58 L Pulse Oximetry 93 Oxygen Delivery Oxygen Flow Rate Fraction of Inspired Oxygen 05/02/24 05:30 05/02/24 06:00 05/02/24 08:00 Temperature 36.6 C Pulse Rate 99 98 107 H Respiratory Rate 22 H 22 H Blood Pressure 111/55 L Pulse Oximetry 94 89 L Oxygen Delivery BiPAP Oxygen Flow Rate Fraction of Inspired Oxygen 50 05/02/24 09:58 05/02/24 09:58 05/02/24 10:08 Temperature Pulse Rate 112 H 108 H Respiratory Rate 24 H 24 H Blood Pressure Pulse Oximetry 93 Oxygen Delivery High Flow Nasal Cannula Oxygen Flow Rate 12 Fraction of Inspired Oxygen Intake/Output Intake/Output: Intake & Output 04/29/24 04/30/24 05/01/24 05/02/24 23:59 23:59 23:59 23:59 Intake Total 37.5 829.8 236 Output Total 550 900 Balance 37.5 279.8 -664 Meds/Results Medications: Active Medications Generic Name Dose Route Start Last Admin Trade Name Ignacio PRN Reason Stop Dose Admin Acetaminophen 650 mg 04/30/24 16:00 Acetaminophen 325 Mg Tablet PO Q4H PRN Mild Pain (1-3) or Fever Amiodarone HCl 200 mg 05/01/24 22:00 05/01/24 22:11 Amiodarone Hcl 200 Mg Tablet PO 200 mg Q24H MIGUEL Administration Atorvastatin Calcium 40 mg 05/01/24 09:00 05/02/24 09:41 Atorvastatin 40 Mg Tablet PO 40 mg DAILY MIGUEL Administration Buspirone HCl 5 mg 05/01/24 09:00 05/02/24 09:41 Buspirone Hcl 5 Mg Tablet PO 5 mg BID MIGUEL Administration Fluticasone/Umeclidinium/Vilanterol 1 puff 05/01/24 08:00 05/02/24 09:57 Fluticasone/Umeclidin/Vilanter 100-62.5-25 Mcg Ellipta INHALATION 1 puff DAILYRT MIGUEL Administration Furosemide 40 mg 05/01/24 09:00 05/01/24 17:39 Furosemide Inj 40 Mg/4 Ml Vial IV PUSH 40 mg BID MIGUEL Administration Albumin Human 100 mls @ 60 mls/hr 05/02/24 10:34 Albutein IVPB 05/02/24 12:13 ONCE ONE Levalbuterol HCl 1.25 mg 05/01/24 08:00 05/02/24 09:57 Levalbuterol Neb 1.25 Mg/3 Ml INHALATION 1.25 mg Q6HRT MIGUEL Administration Levothyroxine Sodium 75 mcg 05/01/24 06:30 05/02/24 06:52 Levothyroxine Sodium 75 Mcg Tablet PO 75 mcg DAILY@0630 MIGUEL Administration Lidocaine 1 patch 05/01/24 09:00 05/02/24 09:41 Lidocaine 5% Patch TRANSDERM Not Given DAILY MIGUEL Loratadine 10 mg 05/01/24 09:00 05/02/24 09:41 Loratadine 10 Mg Tablet PO 10 mg DAILY MIGUEL Administration Magnesium Oxide 400 mg 05/01/24 09:00 05/02/24 09:41 Magnesium Oxide 400 Mg Tablet PO 400 mg QAM MIGUEL Administration Melatonin 5 mg 05/01/24 21:00 05/01/24 22:11 Melatonin 5 Mg Tablet PO 5 mg HS MIGUEL Administration Metoprolol Tartrate 50 mg 05/02/24 21:00 Metoprolol Tartrate 50 Mg Tab PO Q12HR [facility] Miscellaneous Information 0 each 05/01/24 00:01 05/02/24 06:50 Lidocaine Patch Add Site Of Use XX 05/31/24 00:00 Not Given CLARIFY MIGUEL Pantoprazole Sodium 40 mg 05/01/24 09:00 05/02/24 09:40 Pantoprazole 40 Mg Tablet PO 40 mg QAM MIGUEL Administration Potassium Chloride 20 meq 05/01/24 09:00 05/02/24 09:41 Potassium Chloride 20 Meq Er Tablet PO 20 meq BID MIGUEL Administration Senna/Docusate Sodium 2 tab 05/01/24 00:06 Senna/Docusate Sodium Tablet PO BID PRN Constipation Labs Labs: Laboratory Results - last 24 hr 05/02/24 05/02/24 04:17 04:21 WBC 9.7 RBC 3.39 L Hgb 9.8 L Hct 31.3 L MCV 92.3 MCH 28.9 MCHC 31.3 L RDW 15.7 H Plt Count 269 MPV 10.8 H Sodium 133 L Potassium 4.5 Chloride 96 L Carbon Dioxide 29 Anion Gap 8 BUN 27 H Creatinine 0.99 Estim Creat Clear Calc 39 Estimated GFR 53 L Glucose 130 H Calcium 8.4 Total Bilirubin 0.5 AST 17 ALT 18 Alkaline Phosphatase 109 NT-Pro-B Natriuret Pep 5860 H Total Protein 6.0 L Albumin 3.1 L
[2024-05-02] MEDS: ALBUMIN HUMAN 25% 25 GM/100 ML 100 ML IVPB (11:14)
[2024-05-02] MEDS: FUROSEMIDE INJ 40 MG/4 ML VIAL IV PUSH (17:00)
[2024-05-02] MEDS: AMIODARONE HCL 200 MG TABLET PO (23:09)
[2024-05-02] MEDS: MELATONIN 5 MG TABLET PO (23:09)
[2024-05-02] MEDS: METOPROLOL TARTRATE 50 MG TAB PO (23:10)
[2024-05-03] VITALS (23 sets, daily range): BP systolic 95–116; BP diastolic 64–78; PULSE 77–112; RESP 16–24; TEMP 36.3–36.8; O2SAT 90–95
[2024-05-03 04:29] LABS: Hematocrit 31.2 % (37.0-47.0); Hemoglobin 9.8 g/dL (12.0-15.0); Mean Corpuscular HGB Conc 31.4 g/dl (32-36); Mean Corpuscular Hemoglobin 28.8 pg (26-34); Mean Corpuscular Volume 91.8 fl (80-100); Mean Platelet Volume 10.5 fl (7.4-10.4); Platelet Count Result 277 k/mm3 (150-375); Red Cell Distribution Width 15.7 % (11.5-14.5); White Blood Count 7.8 K/mm3 (4.5-10.0)
[2024-05-03 04:54] LABS: Alanine Aminotransferase 19 U/L (6-35); Albumin Level 3.2 g/dL (3.5-5.1); Alkaline Phosphatase 95 U/L (38-126); Anion Gap 6 mmol/L (4-12); Aspartate Amino Transferase 23 U/L (14-36); Bilirubin,Total 0.4 mg/dL (0.2-1.3); Blood Urea Nitrogen 30 mg/dL (7-17); Calcium 8.4 mg/dL (8.4-10.2); Carbon Dioxide 32 mmol/L (22-30); Chloride 94 mmol/L (98-107); Estimated CRCL calculation 43 ml/min; Estimated Glomerular Filt Rate > 60; Glucose 102 mg/dL (65-110); Potassium 4.3 mmol/L (3.4-5.0); Sodium 132 mmol/L (137-145)
[2024-05-03] MEDS: LEVOTHYROXINE SODIUM 75 MCG TABLET PO (07:08)
[2024-05-03] MEDS: FLUTICASONE/UMECLIDIN/VILANTER 100-62.5-25 MCG ELLIPTA 1 PUFF INHALATION (08:09)
--- NOTE | 2024-05-03 08:43 | P.PNIM_ITS ---
Progress Note: A&P Assessment and Plan (1) Acute on chronic hypoxic respiratory failure: Code(s): J96.21 - Acute and chronic respiratory failure with hypoxia Status: Acute Assessment and Plan: Status post BiPAP Currently on 3 L NC Trilogy Ellipta 1 puff daily Levalbuterol q.6 hours Pulmonology following Thoracocentesis possibly tomorrow Eliquis on hold (2) Acute heart failure with preserved ejection fraction (HFpEF): Code(s): I50.31 - Acute diastolic (congestive) heart failure Status: Acute Assessment and Plan: Continue Lasix 40 mg b.i.d. IV Dose of metolazone to facilitate diuresis as per Cardiology Continue amiodarone 200 mg p.o. q.d. (3) Atrial fibrillation with rapid ventricular response: Code(s): I48.91 - Unspecified atrial fibrillation Status: Acute Assessment and Plan: Continue amiodarone 200 mg p.o. q.d. Eliquis on hold (4) MARC (obstructive sleep apnea): Code(s): G47.33 - Obstructive sleep apnea (adult) (pediatric) Status: Acute Assessment and Plan: Apnea link Refused to use CPAP (5) Goals of care, counseling/discussion: Code(s): Z71.89 - Other specified counseling Status: Acute (6) Pleural effusion: Code(s): J90 - Pleural effusion, not elsewhere classified Status: Acute Assessment and Plan: CXR:Large bilateral pleural effusions, right greater than left. Interval increase from prior. Thoracentesis possibly tomorrow Ordered pleural fluid studies including serum LDH and protein Eliquis on hold Subjective Date/time seen: 05/03/24 08:43 Interval history: Pending transfer to [facility]. Patient will possibly undergo thoracocentesis. Pleural fluid analysis has been ordered including serum LDH and protein. Review of Systems Review of Systems: Review of systems limited as the patient is on BiPAP. To his easy to arouse but was still somewhat sleepy. She is alert oriented times 4 but history was difficult to obtain due to BiPAP in clinical condition. Exam Narrative: Weight 98.9 kg BMI 39.9 Const: Other: No acute distress, sitting with head of bed at 72?, appears stated age HENMT: Other: BiPAP in place,head is normocephalic atraumatic, pupils are equal and reactive, lens replacements noted bilateral,no scleral icterus Neck: Other: no JVD, no lymphadenopathy Resp: Other: Coarse breath sounds bilaterally, no obvious wheeze, no increased work of breathing while on BiPAP Cardio: Other: regular rate, irregularregular rhythm, 2+ bilateral radial pedal pulses, no JVD GI: Other: soft, nontender, nondistended, positive bowel sounds Skin: Other: mild pallor, non jaundice, normal temperature to touch Neuro: Other: alert oriented x3, speech is clear but slow, no obvious facial asymmetry but exam limited due to presence of BiPAP Extrem: Other: 2 to 3+ pitting edema lower extremities, 1+ pitting edema right forearm, generally weak but moves all extremities equally Psych: Other: appropriate mood and affect, pleasant and cooperative, judgment and insight intact Objective Data Vital Signs Vital Signs: Vital Signs - 24 hr 05/02/24 09:58 05/02/24 09:58 05/02/24 10:08 Temperature Pulse Rate 112 H 108 H Respiratory Rate 24 H 24 H Blood Pressure Pulse Oximetry 93 Oxygen Delivery High Flow Nasal Cannula Oxygen Flow Rate 12 05/02/24 12:00 05/02/24 12:00 05/02/24 12:00 Temperature 97.7 F Pulse Rate 101 H 115 H Respiratory Rate 16 Blood Pressure 104/61 Pulse Oximetry 96 93 Oxygen Delivery High Flow Nasal Cannula Oxygen Flow Rate 12 05/02/24 14:00 05/02/24 16:00 05/02/24 16:00 Temperature 97.6 F Pulse Rate 99 113 H Respiratory Rate 22 H Blood Pressure 115/62 Pulse Oximetry 91 93 Oxygen Delivery High Flow Nasal Cannula Oxygen Flow Rate 12 05/02/24 16:00 05/02/24 18:00 05/02/24 18:41 Temperature Pulse Rate 99 113 H Respiratory Rate Blood Pressure 96/59 L Pulse Oximetry Oxygen Delivery Oxygen Flow Rate 05/02/24 20:00 05/02/24 20:05 05/02/24 20:30 Temperature Pulse Rate 113 H 108 H 113 H Respiratory Rate 22 H 20 Blood Pressure Pulse Oximetry 91 89 L Oxygen Delivery High Flow Therapy with Na High Flow Therapy with Na Oxygen Flow Rate 13 12 05/02/24 21:33 05/02/24 22:00 05/02/24 22:30 Temperature 97.7 F Pulse Rate 108 H 113 H 90 Respiratory Rate 22 H 20 Blood Pressure 123/77 Pulse Oximetry 91 92 Oxygen Delivery BiPAP Oxygen Flow Rate 05/02/24 22:42 05/02/24 23:05 05/02/24 23:06 Temperature Pulse Rate 108 H 94 94 Respiratory Rate 22 H 20 20 Blood Pressure Pulse Oximetry 92 90 90 Oxygen Delivery BiPAP BiPAP BiPAP Oxygen Flow Rate 12 12 6 05/02/24 23:09 05/02/24 23:10 05/03/24 00:00 Temperature 98.1 F Pulse Rate 112 H 112 H 94 Respiratory Rate 20 Blood Pressure 112/78 Pulse Oximetry 90 Oxygen Delivery Oxygen Flow Rate 05/03/24 00:00 05/03/24 02:00 05/03/24 04:00 Temperature 98.2 F Pulse Rate 99 95 86 Respiratory Rate 18 Blood Pressure 101/69 Pulse Oximetry 90 Oxygen Delivery Oxygen Flow Rate 05/03/24 04:00 05/03/24 04:30 05/03/24 04:50 Temperature Pulse Rate 94 86 90 Respiratory Rate 18 20 Blood Pressure Pulse Oximetry 90 92 Oxygen Delivery BiPAP BiPAP Oxygen Flow Rate 6 05/03/24 06:00 05/03/24 08:00 05/03/24 08:09 Temperature 97.7 F Pulse Rate 98 112 H Respiratory Rate 24 H Blood Pressure 112/66 Pulse Oximetry 90 91 Oxygen Delivery High Flow Nasal Cannula Oxygen Flow Rate 12 05/03/24 08:09 Temperature Pulse Rate 100 Respiratory Rate 20 Blood Pressure Pulse Oximetry Oxygen Delivery Oxygen Flow Rate Intake/Output Intake/Output: Intake & Output 04/30/24 05/01/24 05/02/24 05/03/24 23:59 23:59 23:59 23:59 Intake Total 37.5 829.8 1226 300 Output Total 550 3025 850 Balance 37.5 279.8 -1799 -550 Meds/Results Medications: Active Medications Generic Name Dose Route Start Last Admin Trade Name Freq PRN Reason Stop Dose Admin Acetaminophen 650 mg 04/30/24 16:00 Acetaminophen 325 Mg Tablet PO Q4H PRN Mild Pain (1-3) or Fever Amiodarone HCl 200 mg 05/01/24 22:00 05/02/24 23:09 Amiodarone Hcl 200 Mg Tablet PO 200 mg Q24H MIGUEL Administration Atorvastatin Calcium 40 mg 05/01/24 09:00 05/02/24 09:41 Atorvastatin 40 Mg Tablet PO 40 mg DAILY MIGUEL Administration Buspirone HCl 5 mg 05/01/24 09:00 05/02/24 17:00 Buspirone Hcl 5 Mg Tablet PO 5 mg BID MIGUEL Administration Fluticasone/Umeclidinium/Vilanterol 1 puff 05/01/24 08:00 05/03/24 08:09 Fluticasone/Umeclidin/Vilanter 100-62.5-25 Mcg Ellipta INHALATION 1 puff DAILYRT MIGUEL Administration Furosemide 40 mg 05/01/24 09:00 05/02/24 17:00 Furosemide Inj 40 Mg/4 Ml Vial IV PUSH 40 mg BID MIGUEL Administration Levothyroxine Sodium 75 mcg 05/01/24 06:30 05/03/24 07:08 Levothyroxine Sodium 75 Mcg Tablet PO 75 mcg DAILY@0630 MIGUEL Administration Lidocaine 1 patch 05/01/24 09:00 05/02/24 09:41 Lidocaine 5% Patch TRANSDERM Not Given DAILY MIGUEL Loratadine 10 mg 05/01/24 09:00 05/02/24 09:41 Loratadine 10 Mg Tablet PO 10 mg DAILY MIGUEL Administration Magnesium Oxide 400 mg 05/01/24 09:00 05/02/24 09:41 Magnesium Oxide 400 Mg Tablet PO 400 mg QAM MIGUEL Administration Melatonin 5 mg 05/01/24 21:00 05/02/24 23:09 Melatonin 5 Mg Tablet PO 5 mg HS MIGUEL Administration Metoprolol Tartrate 50 mg 05/02/24 21:00 05/02/24 23:10 Metoprolol Tartrate 50 Mg Tab PO 50 mg Q12HR MIGUEL Administration Miscellaneous Information 0 each 05/01/24 00:01 05/02/24 06:50 Lidocaine Patch Add Site Of Use XX 05/31/24 00:00 Not Given CLARIFY MIGUEL Pantoprazole Sodium 40 mg 05/01/24 09:00 05/02/24 09:40 Pantoprazole 40 Mg Tablet PO 40 mg QAM MIGUEL Administration Potassium Chloride 20 meq 05/01/24 09:00 05/02/24 17:00 Potassium Chloride 20 Meq Er Tablet PO 20 meq BID MIGUEL Administration Senna/Docusate Sodium 2 tab 05/01/24 00:06 Senna/Docusate Sodium Tablet PO BID PRN Constipation Labs Labs: Laboratory Results - last 24 hr 05/02/24 05/03/24 04:17 04:22 WBC 7.8 RBC 3.40 L Hgb 9.8 L Hct 31.2 L MCV 91.8 MCH 28.8 MCHC 31.4 L RDW 15.7 H Plt Count 277 MPV 10.5 H Sodium 132 L Potassium 4.3 Chloride 94 L Carbon Dioxide 32 H Anion Gap 6 BUN 30 H Creatinine 0.87 Estim Creat Clear Calc 43 Estimated GFR > 60 Glucose 102 Calcium 8.4 Total Bilirubin 0.4 AST 23 ALT 19 Alkaline Phosphatase 95 NT-Pro-B Natriuret Pep 5860 H Total Protein 6.0 L Albumin 3.2 L Quality VTE Prophylaxis VTE prophylaxis: mechanical ordered (SCDs) Hospitalist MIPS Advance Care Plan I have confirmed that the patient's Advanced Care Plan is present, code status is documented, or surrogate decision maker is listed in patient medical record.: Yes Medication Reconciliation I have utilized all available resources to obtain, update and review the patients current medications (includes all prescriptions, OTC, herbals, cannabis, and nutritional supplements).: Yes
[2024-05-03] MEDS: PANTOPRAZOLE 40 MG TABLET PO (10:04)
[2024-05-03] MEDS: MAGNESIUM OXIDE 400 MG TABLET PO (10:04)
[2024-05-03] MEDS: LORATADINE 10 MG TABLET PO (10:04)
[2024-05-03] MEDS: METOPROLOL TARTRATE 50 MG TAB PO ×2 (10:04→21:33)
[2024-05-03] MEDS: ATORVASTATIN 40 MG TABLET PO (10:04)
[2024-05-03] MEDS: busPIRone HCL 5 MG TABLET PO ×2 (10:04→16:27)
[2024-05-03] MEDS: POTASSIUM CHLORIDE 20 MEQ ER TABLET PO ×2 (10:05→16:27)
[2024-05-03] MEDS: FUROSEMIDE INJ 40 MG/4 ML VIAL IV PUSH ×2 (10:05→16:27)
--- NOTE | 2024-05-03 12:07 | P.PNPL_ITS ---
Progress Note: A&P Assessment and Plan (1) Chronic respiratory failure: Qualifiers: Respiratory failure complication: hypoxia Qualified Code(s): J96.11 - Chronic respiratory failure with hypoxia Code(s): J96.10 - Chronic respiratory failure, unspecified whether with hypoxia or hypercapnia Status: Acute Assessment and Plan: This 88-year-old female patient, with a history of mild COPD managed with maintenance bronchodilators and chronic hypoxemia treated with supplemental oxygen, has untreated sleep apnea and also atrial fibrillation for which she is receiving treatment, including anticoagulants. Last month, she was hospitalized due to respiratory failure initially caused by a pneumothorax. However, hypoxemic respiratory failure, particularly nocturnal hypoxemia, persisted due to congestive heart failure, as evidenced by a chest X-ray showing pulmonary edema and bilateral pleural effusions. The patient responded well to treatment for congestive heart failure, with radiographic evidence showing a reduction in the size of bilateral pleural effusions. Despite having mild sleep apnea, the patient refused to use CPAP. During her last hospitalization, she was placed on BiPAP support with supplemental oxygen at 3 liters per minute, and an ApneaLink study showed no significant oxyhemog lobin desaturation. Under these settings, the patient was discharged to a correction while efforts were made to obtain insurance approval for a home ventilator due to her unstable cardiorespiratory status and complications from chronic nocturnal hypoxemia. 05/01/24: While in the correction, the patient reported issues with BiPAP support at night. I suspect this hospitalization was prompted by an increase in pleural effusions due to worsening congestive heart failure. There is no evidence of a COPD exacerbation or lower respiratory tract infection. Plan: Continue with the current BiPAP support settings of 12/8 and supplemental oxygen at night. BiPAP support may be used as needed during the day. Eliquis is on hold for the right thoracentesis, which is acceptable. The thoracentesis pleural fluid analysis is expected to confirm congestive heart failure as the cause of the effusion. Discontinue IV steroids. Continue with short-acting bronchodilators on an as-needed basis. I will continue to follow the patient along with you. 05/02/24: Overall the patient tells me she has improved from admission. States she has 60% back to her normal. She is the same as yesterday. She has minimal cough with no phlegm production. She is afebrile. White blood cell count 9.7, creatinine 0.99, BNP is 5860 increased from 3800 on 04/30/2024. Cumulative diuresis since admission is 583 mL. Her weight is 94 kilos with an admission weight of 98.9 kilos. Currently she is on 12 L nasal cannula saturation 90-92%. Patient wore hospital BiPAP with rate of 14, pressures 10/5 and 50% FiO2 with a fullface mask and she said she slept well and this was the most comfortable mask she had used. Plan: I will continue her trelegy 100 and discontinue her levalbuterol nebulizers. there is no evidence of a pulmonary infection and agree with no antibiotics. There is no indication for steroids at this time. The patient remains on 12 L high-flow nasal cannula oxygen and her Eliquis is on hold for thoracentesis on 05/04/2024. Patient is being diuresed as aggressively as tolerated per Cardiology and hospitalist teams. I spoke to the grand daughter on the phone and she will bring her home BiPAP machine in the hospital and if this is functioning properly will try to change her fullface mask to the hospital's full face mask and then perform an overnight oximetry on current settings with 6 L bleed in. Patient to be transferred to [facility]. Awaiting bed. 05/03/2024: Overall the patient tells me she is clinically unchanged. She has no shortness of breath when she talks but shortness of breath and dyspnea on exertion when she moves and better does any activity. She denies cough, phlegm or hemoptysis. She is afebrile. White blood cell count 7.9, creatinine 0.78, yesterday she was given albumin and Lasix 40 IV b.i.d. and she diuresed 1.7 L. Cumulative she has diuresed 2 L since admission. Her weight today is 94 kg with an admission weight of 98.9 kg. When I enter the room she was on 12 L nasal cannula with saturations 94%. I decreased her to 8 L and after 18 minutes her saturations were 92%. Patient wear her home BiPAP machine with Home fullface mask and had difficulty sleeping. Appears her settings are auto rate, pressures 12/6 and 6 L bleed in at an overnight oximetry with recording duration of 6 hours and 56 minutes. Average saturation 88%. Low saturation 69%. Time with saturation less than or equal to 88% was 231 minutes. Oxygen desaturation index 16. Plan: Patient's oxygenation has improved with diuresis. No evidence of wheezing or COPD exacerbation on trelegy 100. currently on 8 L high-flow nasal cannula. I will check a chest x-ray in the morning of 05/04/2024. Eliquis is on hold for possible thoracentesis on 05/04/2024. Agree with as aggressive diuresis as tolerated by her cardiac and renal systems tolerate per hospitalist and Cardiology teams. Tonight I will again try her home machine with her fullface mask to see if she can tolerate this better and also perform overnight oximetry on her home machine with 8 L bleed in. Discussed with Dr. Recinos, will follow with you. Subjective Date/time seen: 05/03/24 12:07 Interval history: New Consult date: 05/01/24 Chief complaint: CHF/COPD/PLEURAL EFFUSION/AFIB W RVR/ANXIETY Narrative: This 88-year-old patient presented with shortness of breath and hypoxemia. She is well known to Pulmonary Services, having been hospitalized from early March to early April for respiratory failure initially related to a traumatic pneumothorax and subsequently to congestive heart failure with bilateral pleural effusions. She required ventilatory support via BiPAP and supplemental oxygen due to persistent nocturnal hypoxemia. During that hospitalization, workup revealed severe biatrial enlargement on echocardiogram, elevated pulmonary artery systolic pressure at 42 mmHg, and atrial fibrillation. Her respiratory failure was attributed to congestive heart failure with pulmonary hypertension, likely related to left ventricular diastolic dysfunction and untreated sleep apnea. The patient was discharged to a correction with supplemental oxygen at 3 liters per minute and BiPAP support at settings of 12/8 while awaiting approval for a home ventilator for her cardiorespiratory condition. While in the correction, it was reported that the patient used BiPAP support and supplemental oxygen, although not in a bleed-in fashion, and she mentioned that the BiPAP mask might have fallen off during sleep. During a follow-up visit at the pulmonary clinic, she was found to have hypoxemia. Upon questioning, she admitted to experiencing increased shortness of breath over the past few days but denied other respiratory symptoms such as chest pain, palpitations, fever, chills, or increased lower extremity edema. She was compliant with her medications for congestive heart failure and atrial fibrillation, including Eliquis. Emergency room evaluation with a chest X-ray showed increased pleural effusions, larger on the right, with no new infiltrates. The patient received treatment with BiPAP support at night and supplemental oxygen at a higher flow rate of 10 liters per minute. Along with her cardiac medications, she is currently receiving Solu-Medrol IV and nebulized short-acting bronchodilators, while Eliquis has been held to allow for thoracentesis. Currently, she experiences no shortness of breath while on supplemental oxygen. 05/02/24: Overall the patient tells me she has improved from admission. States she has 60% back to her normal. She is the same as yesterday. She has minimal cough with no phlegm production. She is afebrile. White blood cell count 9.7, creatinine 0.99, BNP is 5860 increased from 3800 on 04/30/2024. Cumulative diuresis since admission is 583 mL. Her weight is 94 kilos with an admission weight of 98.9 kilos. Currently she is on 12 L nasal cannula saturation 90-92%. Patient wore hospital BiPAP with rate of 14, pressures 10/5 and 50% FiO2 with a fullface mask and she said she slept well and this was the most comfortable mask she had used. 05/03/2024: Overall the patient tells me she is clinically unchanged. She has no shortness of breath when she talks but shortness of breath and dyspnea on exertion when she moves and better does any activity. She denies cough, phlegm or hemoptysis. She is afebrile. White blood cell count 7.9, creatinine 0.78, yesterday she was given albumin and Lasix 40 IV b.i.d. and she diuresed 1.7 L. Cumulative she has diuresed 2 L since admission. Her weight today is 94 kg with an admission weight of 98.9 kg. When I enter the room she was on 12 L nasal cannula with saturations 94%. I decreased her to 8 L and after 18 minutes her saturations were 92%. Patient wear her home BiPAP machine with Home fullface mask and had difficulty sleeping. Appears her settings are auto rate, pressures 12/6 and 6 L bleed in at an overnight oximetry with recording duration of 6 hours and 56 minutes. Average saturation 88%. Low saturation 69%. Time with saturation less than or equal to 88% was 231 minutes. Oxygen desaturation index 16. Review of Systems Review of Systems: All systems reviewed & are unremarkable except as noted in HPI and below (HPI and below) Constitutional: Constitutional: Reports no additional constitutional complaints Eyes: Eyes: Reports no additional eye complaints ENT: Reports system reviewed and no additional complaints, except as documented Cardiovascular: Cardiovascular: Reports no additional cardiovascular complaints Respiratory: Respiratory: Reports no additional respiratory complaints Gastrointestinal: Gastrointestinal: Reports no additional gastrointestinal complaints Musculoskeletal: Musculoskeletal: Reports no additional musculoskeletal complaints Neurologic: Reports system reviewed and no additional complaints, except as documented Psychiatric: Psychiatric: Reports no additional psychiatric complaints Endocrine: Endocrine: Reports no additional endocrine complaints Hematologic/Lymphatic: Hematologic/Lymphatic: Reports no additional hematologic/lymphatic complaints Allergic/Immunologic: Allergic/Immunologic: Reports no additional allergic/immunologic complaints Exam Const: General: cooperative, comfortable and no acute distress Orientation/consciousness: oriented to person, oriented to place and oriented to time HENMT: Head: normal to inspection Ears: hearing grossly normal bilaterally Eyes: General: appearance normal, both eyes and all related structures Neck: Neck: normal visual inspection Chest: Chest palpation & inspection: normal inspection of the chest Resp: Effort & Inspection: normal respiratory effort and able to speak in complete sentences Auscultation: no crackles, no rales, no rhonchi, no wheezes and lung sounds not diminished Other: Decreased breath sounds, crackles in bases. Cardio: Jugular venous distension: no JVD GI: Inspection: normal to inspection Skin: General skin exam: normal color Neuro: General: oriented to person, oriented to place and oriented to time Extrem: General: normal to inspection and edema Psych: Appearance: grossly normal Objective Data Vital Signs Vital Signs: Vital Signs - 24 hr 05/02/24 14:00 05/02/24 16:00 05/02/24 16:00 Temperature 36.4 C Pulse Rate 99 113 H Respiratory Rate 22 H Blood Pressure 115/62 Pulse Oximetry 91 93 Oxygen Delivery High Flow Nasal Cannula Oxygen Flow Rate 12 05/02/24 16:00 05/02/24 18:00 05/02/24 18:41 Temperature Pulse Rate 99 113 H Respiratory Rate Blood Pressure 96/59 L Pulse Oximetry Oxygen Delivery Oxygen Flow Rate 05/02/24 20:00 05/02/24 20:05 05/02/24 20:30 Temperature Pulse Rate 113 H 108 H 113 H Respiratory Rate 22 H 20 Blood Pressure Pulse Oximetry 91 89 L Oxygen Delivery High Flow Therapy with Na High Flow Therapy with Na Oxygen Flow Rate 13 12 05/02/24 21:33 05/02/24 22:00 05/02/24 22:30 Temperature 36.5 C Pulse Rate 108 H 113 H 90 Respiratory Rate 22 H 20 Blood Pressure 123/77 Pulse Oximetry 91 92 Oxygen Delivery BiPAP Oxygen Flow Rate 05/02/24 22:42 05/02/24 23:05 05/02/24 23:06 Temperature Pulse Rate 108 H 94 94 Respiratory Rate 22 H 20 20 Blood Pressure Pulse Oximetry 92 90 90 Oxygen Delivery BiPAP BiPAP BiPAP Oxygen Flow Rate 12 12 6 05/02/24 23:09 05/02/24 23:10 05/03/24 00:00 Temperature 36.7 C Pulse Rate 112 H 112 H 94 Respiratory Rate 20 Blood Pressure 112/78 Pulse Oximetry 90 Oxygen Delivery Oxygen Flow Rate 05/03/24 00:00 05/03/24 02:00 05/03/24 04:00 Temperature 36.8 C Pulse Rate 99 95 86 Respiratory Rate 18 Blood Pressure 101/69 Pulse Oximetry 90 Oxygen Delivery Oxygen Flow Rate 05/03/24 04:00 05/03/24 04:30 05/03/24 04:50 Temperature Pulse Rate 94 86 90 Respiratory Rate 18 20 Blood Pressure Pulse Oximetry 90 92 Oxygen Delivery BiPAP BiPAP Oxygen Flow Rate 6 05/03/24 06:00 05/03/24 08:00 05/03/24 08:00 Temperature 36.5 C Pulse Rate 98 112 H 102 H Respiratory Rate 24 H Blood Pressure 112/66 Pulse Oximetry 90 Oxygen Delivery Oxygen Flow Rate 05/03/24 08:09 05/03/24 08:09 05/03/24 10:00 Temperature Pulse Rate 100 101 H Respiratory Rate 20 Blood Pressure Pulse Oximetry 91 Oxygen Delivery High Flow Nasal Cannula Oxygen Flow Rate 12 05/03/24 12:00 Temperature 36.3 C L Pulse Rate 107 H Respiratory Rate 16 Blood Pressure 95/66 L Pulse Oximetry 90 Oxygen Delivery Oxygen Flow Rate Intake/Output Intake/Output: Intake & Output 04/30/24 05/01/24 05/02/24 05/03/24 23:59 23:59 23:59 23:59 Intake Total 37.5 829.8 1226 540 Output Total 550 4670 8261 Balance 37.5 279.8 -6980 -9562 Meds/Results Medications: Active Medications Generic Name Dose Route Start Last Admin Trade Name Freq PRN Reason Stop Dose Admin Acetaminophen 650 mg 04/30/24 16:00 Acetaminophen 325 Mg Tablet PO Q4H PRN Mild Pain (1-3) or Fever Amiodarone HCl 200 mg 05/01/24 22:00 05/02/24 23:09 Amiodarone Hcl 200 Mg Tablet PO 200 mg Q24H MIGUEL Administration Atorvastatin Calcium 40 mg 05/01/24 09:00 05/03/24 10:04 Atorvastatin 40 Mg Tablet PO 40 mg DAILY MIGUEL Administration Buspirone HCl 5 mg 05/01/24 09:00 05/03/24 10:04 Buspirone Hcl 5 Mg Tablet PO 5 mg BID MIGUEL Administration Fluticasone/Umeclidinium/Vilanterol 1 puff 05/01/24 08:00 05/03/24 08:09 Fluticasone/Umeclidin/Vilanter 100-62.5-25 Mcg Ellipta INHALATION 1 puff DAILYRT MIGUEL Administration Furosemide 40 mg 05/01/24 09:00 05/03/24 10:05 Furosemide Inj 40 Mg/4 Ml Vial IV PUSH 40 mg BID MIGUEL Administration Levothyroxine Sodium 75 mcg 05/01/24 06:30 05/03/24 07:08 Levothyroxine Sodium 75 Mcg Tablet PO 75 mcg DAILY@0630 MIGUEL Administration Lidocaine 1 patch 05/01/24 09:00 05/03/24 10:05 Lidocaine 5% Patch TRANSDERM Not Given DAILY MIGUEL Loratadine 10 mg 05/01/24 09:00 05/03/24 10:04 Loratadine 10 Mg Tablet PO 10 mg DAILY MIGUEL Administration Magnesium Oxide 400 mg 05/01/24 09:00 05/03/24 10:04 Magnesium Oxide 400 Mg Tablet PO 400 mg QAM MIGUEL Administration Melatonin 5 mg 05/01/24 21:00 05/02/24 23:09 Melatonin 5 Mg Tablet PO 5 mg HS MIGUEL Administration Metoprolol Tartrate 50 mg 05/02/24 21:00 05/03/24 10:04 Metoprolol Tartrate 50 Mg Tab PO 50 mg Q12HR MIGUEL Administration Miscellaneous Information 0 each 05/01/24 00:01 05/02/24 06:50 Lidocaine Patch Add Site Of Use XX 05/31/24 00:00 Not Given CLARIFY MIGUEL Pantoprazole Sodium 40 mg 05/01/24 09:00 05/03/24 10:04 Pantoprazole 40 Mg Tablet PO 40 mg QAM MIGUEL Administration Potassium Chloride 20 meq 05/01/24 09:00 05/03/24 10:05 Potassium Chloride 20 Meq Er Tablet PO 20 meq BID MIGUEL Administration Senna/Docusate Sodium 2 tab 05/01/24 00:06 Senna/Docusate Sodium Tablet PO BID PRN Constipation Labs Labs: Laboratory Results - last 24 hr 05/03/24 04:22 WBC 7.8 RBC 3.40 L Hgb 9.8 L Hct 31.2 L MCV 91.8 MCH 28.8 MCHC 31.4 L RDW 15.7 H Plt Count 277 MPV 10.5 H Sodium 132 L Potassium 4.3 Chloride 94 L Carbon Dioxide 32 H Anion Gap 6 BUN 30 H Creatinine 0.87 Estim Creat Clear Calc 43 Estimated GFR > 60 Glucose 102 Calcium 8.4 Total Bilirubin 0.4 AST 23 ALT 19 Alkaline Phosphatase 95 Total Protein 6.0 L Albumin 3.2 L
[2024-05-03 19:42] LABS: Lactate Dehydrogenase 174 U/L (120-246)
[2024-05-03] MEDS: MELATONIN 5 MG TABLET PO (21:33)
[2024-05-03] MEDS: AMIODARONE HCL 200 MG TABLET PO (21:34)
[2024-05-04] VITALS (23 sets, daily range): BP systolic 98–109; BP diastolic 46–77; PULSE 82–122; RESP 18–221; TEMP 36.4–36.9; O2SAT 90–94
[2024-05-04 06:02] LABS: Hematocrit 36.1 % (37.0-47.0); Hemoglobin 11.5 g/dL (12.0-15.0); Mean Corpuscular HGB Conc 31.9 g/dl (32-36); Mean Corpuscular Hemoglobin 29.3 pg (26-34); Mean Corpuscular Volume 92.1 fl (80-100); Mean Platelet Volume 10.7 fl (7.4-10.4); Platelet Count Result 319 k/mm3 (150-375); Red Blood Count 3.92 M/mm3 (4.2-5.4); Red Cell Distribution Width 15.3 % (11.5-14.5); White Blood Count 6.5 K/mm3 (4.5-10.0)
[2024-05-04 06:14] LABS: Alanine Aminotransferase 21 U/L (6-35); Albumin Level 3.3 g/dL (3.5-5.1); Alkaline Phosphatase 104 U/L (38-126); Anion Gap 5 mmol/L (4-12); Aspartate Amino Transferase 27 U/L (14-36); Bilirubin,Total 0.5 mg/dL (0.2-1.3); Blood Urea Nitrogen 30 mg/dL (7-17); Calcium 8.4 mg/dL (8.4-10.2); Carbon Dioxide 39 mmol/L (22-30); Chloride 88 mmol/L (98-107); Estimated CRCL calculation 39 ml/min; Estimated Glomerular Filt Rate 54; Glucose 90 mg/dL (65-110); Potassium 3.9 mmol/L (3.4-5.0); Sodium 132 mmol/L (137-145)
[2024-05-04 06:19] LABS: INR 1.2; Prothrombin Time 15.7 Seconds (11.1-14.7)
[2024-05-04] MEDS: LEVOTHYROXINE SODIUM 75 MCG TABLET PO (06:23)
--- NOTE | 2024-05-04 09:20 | PC.NURSE ---
Pt to ultrasound for thoracentesis via wheelchair
--- NOTE | 2024-05-04 09:22 | PM.PNPUL ---
Progress Note: A&P Assessment and Plan (1) Chronic respiratory failure: Qualifiers: Respiratory failure complication: hypoxia Qualified Code(s): J96.11 - Chronic respiratory failure with hypoxia Code(s): J96.10 - Chronic respiratory failure, unspecified whether with hypoxia or hypercapnia Status: Acute (2) Acute on chronic hypoxic respiratory failure: Code(s): J96.21 - Acute and chronic respiratory failure with hypoxia Status: Acute Assessment and Plan: This 88-year-old female patient, with a history of mild COPD managed with maintenance bronchodilators and chronic hypoxemia treated with supplemental oxygen, has untreated sleep apnea and also atrial fibrillation for which she is receiving treatment, including anticoagulants. Last month, she was hospitalized due to respiratory failure initially caused by a pneumothorax. However, hypoxemic respiratory failure, particularly nocturnal hypoxemia, persisted due to congestive heart failure, as evidenced by a chest X-ray showing pulmonary edema and bilateral pleural effusions. The patient responded well to treatment for congestive heart failure, with radiographic evidence showing a reduction in the size of bilateral pleural effusions. Despite having mild sleep apnea, the patient refused to use CPAP. During her last hospitalization, she was placed on BiPAP support with supplemental oxygen at 3 liters per minute, and an ApneaLink study showed no significant oxyhemoglobin desaturation. Under these settings, the patient was discharged to a longterm while efforts were made to obtain insurance approval for a home ventilator due to her unstable cardiorespiratory status and complications from chronic nocturnal hypoxemia. During her stay in the longterm, the patient reported difficulties with nighttime BiPAP support. I suspect this hospitalization was triggered by increased pleural effusions due to worsening congestive heart failure. There is no indication of a COPD exacerbation or lower respiratory tract infection. Since her admission to the hospital, the patient has been receiving BiPAP support with pressures set at 12/8, alongside supplemental oxygen at relatively high flow rates. She continues to show no signs of a lower respiratory tract infection. The patient has been fluid negative by more than 6 liters since her admission. The latest chest X-ray indicates a reduction in the size of the left pleural effusion compared to the admission film. The patient is scheduled for a right thoracentesis to improve her gas exchange. At her request, arrangements are being made to transfer her to [facility]. Plan: Maintain the current management, including BiPAP support at night and as needed during the day. Gradually reduce the oxygen flow if tolerated. (3) COPD (chronic obstructive pulmonary disease): Qualifiers: COPD type: unspecified COPD Qualified Code(s): J44.9 - Chronic obstructive pulmonary disease, unspecified Code(s): J44.9 - Chronic obstructive pulmonary disease, unspecified Status: Acute (4) Pleural effusion: Code(s): J90 - Pleural effusion, not elsewhere classified Status: Acute (5) CHF (congestive heart failure): Qualifiers: Heart failure type: unspecified Heart failure chronicity: unspecified Qualified Code(s): I50.9 - Heart failure, unspecified Code(s): I50.9 - Heart failure, unspecified Status: Acute (6) Afib: Qualifiers: Atrial fibrillation type: unspecified Qualified Code(s): I48.91 - Unspecified atrial fibrillation Code(s): I48.91 - Unspecified atrial fibrillation Status: Acute (7) Acute heart failure with preserved ejection fraction (HFpEF): Code(s): I50.31 - Acute diastolic (congestive) heart failure Status: Acute Subjective Date/time seen: 05/04/24 09:22 Interval history: Patient stated she is doing better. She used BiPAP support last night. She remains on relatively high oxygen flow 10 liters/minute. No shortness of breath at rest. No lower extremity edema. Has been evaluated by Cardiology Services. Review of Systems Review of Systems: All systems reviewed & are unremarkable except as noted in HPI and below (HPI and below) Exam Narrative: GENERAL APPEARANCE: Well developed, well nourished, alert and cooperative, and appears to be in mild respiratory distress while on high-flow nasal cannula oxygen SKIN: Inspection of the skin reveals no rashes, ulcerations or petechiae. HEENT: Sclerae anicteric and conjunctivae pink and moist. Extraocular movements were intact and pupils were equal, round. Dry oral mucosa. NECK: Supple. There was no thyroid enlargement, and no tenderness, or masses were felt. LUNGS: Decreased breath sounds and few crackles at bases posteriorly no wheezing CARDIAC: There was irregular rate and rhythm without any murmurs, gallops, rubs. ABDOMEN: Soft and nontender with normal bowel sounds. There was no organomegaly. LYMPH NODES: No lymphadenopathy was appreciated in the neck, axillae or groin. EXTREMITIES: No cyanosis, clubbing. no pedal edema. NEUROLOGIC: Alert. Normal affect. Objective Data Vital Signs Vital Signs: Vital Signs - 24 hr 05/03/24 10:00 05/03/24 12:00 05/03/24 12:00 Temperature 36.3 C L Pulse Rate 101 H 107 H Respiratory Rate 16 Blood Pressure 95/66 L Pulse Oximetry 90 93 Oxygen Delivery High Flow Nasal Cannula Oxygen Flow Rate 10 05/03/24 12:00 05/03/24 14:00 05/03/24 14:18 Temperature Pulse Rate 104 H 81 Respiratory Rate Blood Pressure Pulse Oximetry 93 Oxygen Delivery High Flow Nasal Cannula Oxygen Flow Rate 10 05/03/24 15:50 05/03/24 16:00 05/03/24 16:00 Temperature 36.7 C Pulse Rate 108 H 96 Respiratory Rate 20 Blood Pressure 108/64 Pulse Oximetry 92 91 Oxygen Delivery High Flow Nasal Cannula Oxygen Flow Rate 10 05/03/24 18:00 05/03/24 20:00 05/03/24 20:00 Temperature 36.7 C Pulse Rate 99 100 94 Respiratory Rate 20 Blood Pressure 106/70 Pulse Oximetry 95 Oxygen Delivery Oxygen Flow Rate 05/03/24 21:33 05/03/24 21:34 05/03/24 21:35 Temperature Pulse Rate 77 77 Respiratory Rate Blood Pressure Pulse Oximetry 95 Oxygen Delivery Oxymizer Oxygen Flow Rate 10 05/03/24 22:00 05/03/24 22:14 05/03/24 23:00 Temperature Pulse Rate 94 104 H 90 Respiratory Rate 20 20 Blood Pressure Pulse Oximetry 94 94 Oxygen Delivery Oxymizer BiPAP Oxygen Flow Rate 10 05/03/24 23:31 05/04/24 00:00 05/04/24 00:40 Temperature 36.5 C Pulse Rate 85 89 Respiratory Rate 20 Blood Pressure 116/75 Pulse Oximetry 94 Oxygen Delivery BiPAP Oxygen Flow Rate 05/04/24 02:00 05/04/24 02:30 05/04/24 03:25 Temperature 36.5 C Pulse Rate 91 82 91 Respiratory Rate 221 H 22 H Blood Pressure 104/73 Pulse Oximetry 94 92 Oxygen Delivery BiPAP Oxygen Flow Rate 05/04/24 04:00 05/04/24 04:00 05/04/24 06:00 Temperature Pulse Rate 84 92 Respiratory Rate Blood Pressure Pulse Oximetry Oxygen Delivery BiPAP Oxygen Flow Rate 05/04/24 08:00 05/04/24 08:10 Temperature 36.4 C L Pulse Rate 110 H 110 H Respiratory Rate 22 H 22 H Blood Pressure 104/62 Pulse Oximetry 93 93 Oxygen Delivery High Flow Nasal Cannula Oxygen Flow Rate 10 Intake/Output Intake/Output: Intake & Output 05/01/24 05/02/24 05/03/24 05/04/24 23:59 23:59 23:59 23:59 Intake Total 829.8 1226 1140 450 Output Total 550 3025 4450 1999 Balance 279.8 -1799 -3310 -1550 Meds/Results Medications: Active Medications Generic Name Dose Route Start Last Admin Trade Name Freq PRN Reason Stop Dose Admin Acetaminophen 650 mg 04/30/24 16:00 Acetaminophen 325 Mg Tablet PO Q4H PRN Mild Pain (1-3) or Fever Amiodarone HCl 200 mg 05/01/24 22:00 05/03/24 21:34 Amiodarone Hcl 200 Mg Tablet PO 200 mg Q24H MIGUEL Administration Atorvastatin Calcium 40 mg 05/01/24 09:00 05/03/24 10:04 Atorvastatin 40 Mg Tablet PO 40 mg DAILY MIGUEL Administration Buspirone HCl 5 mg 05/01/24 09:00 05/03/24 16:27 Buspirone Hcl 5 Mg Tablet PO 5 mg BID MIGUEL Administration Fluticasone/Umeclidinium/Vilanterol 1 puff 05/01/24 08:00 05/03/24 08:09 Fluticasone/Umeclidin/Vilanter 100-62.5-25 Mcg Ellipta INHALATION 1 puff DAILYRT MIGUEL Administration Furosemide 40 mg 05/01/24 09:00 05/03/24 16:27 Furosemide Inj 40 Mg/4 Ml Vial IV PUSH 40 mg BID MIGUEL Administration Levothyroxine Sodium 75 mcg 05/01/24 06:30 05/04/24 06:23 Levothyroxine Sodium 75 Mcg Tablet PO 75 mcg DAILY@0630 MIGUEL Administration Lidocaine 1 patch 05/01/24 09:00 05/03/24 10:05 Lidocaine 5% Patch TRANSDERM Not Given DAILY MIGUEL Loratadine 10 mg 05/01/24 09:00 05/03/24 10:04 Loratadine 10 Mg Tablet PO 10 mg DAILY MIGUEL Administration Magnesium Oxide 400 mg 05/01/24 09:00 05/03/24 10:04 Magnesium Oxide 400 Mg Tablet PO 400 mg QAM MIGUEL Administration Melatonin 5 mg 05/01/24 21:00 05/03/24 21:33 Melatonin 5 Mg Tablet PO 5 mg HS MIGUEL Administration Metoprolol Tartrate 50 mg 05/02/24 21:00 05/03/24 21:33 Metoprolol Tartrate 50 Mg Tab PO 50 mg Q12HR MIGUEL Administration Miscellaneous Information 0 each 05/01/24 00:01 05/03/24 16:13 Lidocaine Patch Add Site Of Use XX 05/31/24 00:00 Not Given CLARIFY MIGUEL Pantoprazole Sodium 40 mg 05/01/24 09:00 05/03/24 10:04 Pantoprazole 40 Mg Tablet PO 40 mg QAM MIGUEL Administration Potassium Chloride 20 meq 05/01/24 09:00 05/03/24 16:27 Potassium Chloride 20 Meq Er Tablet PO 20 meq BID MIGUEL Administration Senna/Docusate Sodium 2 tab 05/01/24 00:06 Senna/Docusate Sodium Tablet PO BID PRN Constipation Radiology Results: ITS Impressions Chest X-Ray 05/04/24 06:39 Impression: Bibasilar pulmonary edema/atelectasis with bilateral pleural effusions, as above. Stable cardiomegaly. Labs Labs: Laboratory Results - last 24 hr 05/03/24 05/04/24 19:23 05:52 WBC 6.5 RBC 3.92 L Hgb 11.5 L Hct 36.1 L MCV 92.1 MCH 29.3 MCHC 31.9 L RDW 15.3 H Plt Count 319 MPV 10.7 H PT 15.7 H D INR 1.2 Sodium 132 L Potassium 3.9 Chloride 88 L Carbon Dioxide 39 H Anion Gap 5 BUN 30 H Creatinine 0.98 Estim Creat Clear Calc 39 Estimated GFR 54 L Glucose 90 Calcium 8.4 Total Bilirubin 0.5 AST 27 ALT 21 Alkaline Phosphatase 104 Lactate Dehydrogenase 174 Total Protein 6.0 L 6.0 L Albumin 3.3 L
--- NOTE | 2024-05-04 09:54 | PC.NURSE ---
Pt returned from thoracentesis via wheelchair.
[2024-05-04] MEDS: FUROSEMIDE INJ 40 MG/4 ML VIAL IV PUSH ×2 (10:04→17:11)
[2024-05-04 10:18] LABS: pH Pleural Fluid > 7.500 (7.210-7.500)
[2024-05-04] MEDS: FLUTICASONE/UMECLIDIN/VILANTER 100-62.5-25 MCG ELLIPTA 1 PUFF INHALATION (10:33)
[2024-05-04 11:22] LABS: Appearance Pleural Fluid Hazy (Clear); Color Pleural Fluid Yellow (Colorless); Nucleated Cell Pleural Fluid 457 /uL (0-1000); Pleural fluid source Pleural fluid; RBC Pleural Fluid 7000 /uL (0-10000)
[2024-05-04 11:23] LABS: Lymphocytes Pleural Fluid 74 %; Mesothelial Cells Pleural Flui 6 %; Monocytes Pleural Fluid 1 %; Neutrophils Pleural Fluid 19 % (0-25)
[2024-05-04] MEDS: ATORVASTATIN 40 MG TABLET PO (12:10)
[2024-05-04] MEDS: POTASSIUM CHLORIDE 20 MEQ ER TABLET PO (12:10)
[2024-05-04] MEDS: LORATADINE 10 MG TABLET PO (12:10)
[2024-05-04] MEDS: busPIRone HCL 5 MG TABLET PO ×2 (12:11→17:11)
[2024-05-04] MEDS: PANTOPRAZOLE 40 MG TABLET PO (12:11)
[2024-05-04] MEDS: MAGNESIUM OXIDE 400 MG TABLET PO (12:11)
[2024-05-04] MEDS: METOPROLOL TARTRATE 50 MG TAB PO ×2 (12:11→21:19)
--- NOTE | 2024-05-04 16:13 | P.PNIM_ITS ---
Progress Note: A&P Assessment and Plan (1) Acute on chronic hypoxic respiratory failure: Code(s): J96.21 - Acute and chronic respiratory failure with hypoxia Status: Acute Assessment and Plan: bipap at night 10 liters in day Trilogy Ellipta 1 puff daily Levalbuterol q.6 hours Pulmonology following see recommendations sp Thoracocentesis Eliquis on hold abg ordered for adalberto am (2) Acute heart failure with preserved ejection fraction (HFpEF): Code(s): I50.31 - Acute diastolic (congestive) heart failure Status: Acute Assessment and Plan: Continue Lasix 40 mg b.i.d. IV Dose of metolazone to facilitate diuresis as per Cardiology Continue amiodarone 200 mg p.o. q.d. (3) Atrial fibrillation with rapid ventricular response: Code(s): I48.91 - Unspecified atrial fibrillation Status: Acute Assessment and Plan: Continue amiodarone 200 mg p.o. q.d. Eliquis on hold (4) MARC (obstructive sleep apnea): Code(s): G47.33 - Obstructive sleep apnea (adult) (pediatric) Status: Acute Assessment and Plan: Apnea link Refused to use CPAP (5) Goals of care, counseling/discussion: Code(s): Z71.89 - Other specified counseling Status: Acute (6) Pleural effusion: Code(s): J90 - Pleural effusion, not elsewhere classified Status: Acute Assessment and Plan: CXR:Large bilateral pleural effusions, right greater than left. sp thoracentesis today Eliquis on hold Subjective Date/time seen: 05/04/24 16:13 Interval history: pt admitted for acute on chronic resp failure pt was on bipap at night, continue oxygen at 10 liters and bipap at night pt sp thoracentesis pt requesting transfer to [facility] for cardiology services explained to her pulmology is rounding making recommendations cardiology transfer would be for lateral services and not higher level of care services Continue oxygenation and diuresis here wit iv lasix Review of Systems Review of Systems: SOB at rest on 10 liters of oxygen Exam Const: Other: sob at rest on 10 liters of oxygen Neck: Other: no JVD, no lymphadenopathy Resp: Other: Coarse breath sounds Cardio: Other: regular rate, irregularregular rhythm, 2+ bilateral radial pedal pulses, no JVD GI: Other: soft, nontender, nondistended, positive bowel sounds Neuro: Other: alert oriented x3 Extrem: Other: 2 to 3+ pitting edema lower extremities Objective Data Vital Signs Vital Signs: Vital Signs - 24 hr 05/03/24 18:00 05/03/24 20:00 05/03/24 20:00 Temperature 36.7 C Pulse Rate 99 100 94 Respiratory Rate 20 Blood Pressure 106/70 Pulse Oximetry 95 Oxygen Delivery Oxygen Flow Rate 05/03/24 21:33 05/03/24 21:34 05/03/24 21:35 Temperature Pulse Rate 77 77 Respiratory Rate Blood Pressure Pulse Oximetry 95 Oxygen Delivery Oxymizer Oxygen Flow Rate 10 05/03/24 22:00 05/03/24 22:14 05/03/24 23:00 Temperature Pulse Rate 94 104 H 90 Respiratory Rate 20 20 Blood Pressure Pulse Oximetry 94 94 Oxygen Delivery Oxymizer BiPAP Oxygen Flow Rate 10 05/03/24 23:31 05/04/24 00:00 05/04/24 00:40 Temperature 36.5 C Pulse Rate 85 89 Respiratory Rate 20 Blood Pressure 116/75 Pulse Oximetry 94 Oxygen Delivery BiPAP Oxygen Flow Rate 05/04/24 02:00 05/04/24 02:30 05/04/24 03:25 Temperature 36.5 C Pulse Rate 91 82 91 Respiratory Rate 221 H 22 H Blood Pressure 104/73 Pulse Oximetry 94 92 Oxygen Delivery BiPAP Oxygen Flow Rate 05/04/24 04:00 05/04/24 04:00 05/04/24 06:00 Temperature Pulse Rate 84 92 Respiratory Rate Blood Pressure Pulse Oximetry Oxygen Delivery BiPAP Oxygen Flow Rate 05/04/24 08:00 05/04/24 08:00 05/04/24 08:10 Temperature 36.4 C L Pulse Rate 110 H 101 H 110 H Respiratory Rate 22 H 22 H Blood Pressure 104/62 Pulse Oximetry 93 93 Oxygen Delivery High Flow Nasal Cannula Oxygen Flow Rate 10 05/04/24 10:00 05/04/24 10:35 05/04/24 10:36 Temperature Pulse Rate 107 H 106 H Respiratory Rate 20 Blood Pressure Pulse Oximetry 92 Oxygen Delivery High Flow Nasal Cannula Oxygen Flow Rate 11 05/04/24 12:00 05/04/24 12:00 05/04/24 12:00 Temperature 36.4 C L Pulse Rate 115 H 114 H 108 H Respiratory Rate 20 20 Blood Pressure 106/58 L Pulse Oximetry 90 90 Oxygen Delivery High Flow Nasal Cannula Oxygen Flow Rate 8 05/04/24 12:11 05/04/24 14:00 05/04/24 15:40 Temperature 36.9 C Pulse Rate 114 H 93 90 Respiratory Rate 18 Blood Pressure 109/49 L Pulse Oximetry 92 Oxygen Delivery Oxygen Flow Rate Intake/Output Intake/Output: Intake & Output 05/01/24 05/02/24 05/03/24 05/04/24 23:59 23:59 23:59 23:59 Intake Total 829.8 1226 1140 690 Output Total 550 2585 5250 3525 Balance 279.8 -1799 -3310 -2835 Meds/Results Medications: Active Medications Generic Name Dose Route Start Last Admin Trade Name Freq PRN Reason Stop Dose Admin Acetaminophen 650 mg 04/30/24 16:00 Acetaminophen 325 Mg Tablet PO Q4H PRN Mild Pain (1-3) or Fever Amiodarone HCl 200 mg 05/01/24 22:00 05/03/24 21:34 Amiodarone Hcl 200 Mg Tablet PO 200 mg Q24H MIGUEL Administration Atorvastatin Calcium 40 mg 05/01/24 09:00 05/04/24 12:10 Atorvastatin 40 Mg Tablet PO 40 mg DAILY MIGUEL Administration Buspirone HCl 5 mg 05/01/24 09:00 05/04/24 12:11 Buspirone Hcl 5 Mg Tablet PO 5 mg BID MIGUEL Administration Fluticasone/Umeclidinium/Vilanterol 1 puff 05/01/24 08:00 05/04/24 10:33 Fluticasone/Umeclidin/Vilanter 100-62.5-25 Mcg Ellipta INHALATION 1 puff DAILYRT MIGUEL Administration Furosemide 40 mg 05/01/24 09:00 05/04/24 10:04 Furosemide Inj 40 Mg/4 Ml Vial IV PUSH 40 mg BID MIGUEL Administration Levothyroxine Sodium 75 mcg 05/01/24 06:30 05/04/24 06:23 Levothyroxine Sodium 75 Mcg Tablet PO 75 mcg DAILY@0630 MIGUEL Administration Lidocaine 1 patch 05/04/24 13:04 Lidocaine 5% Patch TRANSDERM DAILY PRN Pain Loratadine 10 mg 05/01/24 09:00 05/04/24 12:10 Loratadine 10 Mg Tablet PO 10 mg DAILY MIGUEL Administration Magnesium Oxide 400 mg 05/01/24 09:00 05/04/24 12:11 Magnesium Oxide 400 Mg Tablet PO 400 mg QAM MIGUEL Administration Melatonin 5 mg 05/01/24 21:00 05/03/24 21:33 Melatonin 5 Mg Tablet PO 5 mg HS MIGUEL Administration Metoprolol Tartrate 50 mg 05/02/24 21:00 05/04/24 12:11 Metoprolol Tartrate 50 Mg Tab PO 50 mg Q12HR MIGUEL Administration Pantoprazole Sodium 40 mg 05/01/24 09:00 05/04/24 12:11 Pantoprazole 40 Mg Tablet PO 40 mg QAM MIGUEL Administration Potassium Chloride 20 meq 05/01/24 09:00 05/04/24 12:10 Potassium Chloride 20 Meq Er Tablet PO 20 meq BID MIGUEL Administration Senna/Docusate Sodium 2 tab 05/01/24 00:06 Senna/Docusate Sodium Tablet PO BID PRN Constipation Radiology Results: ITS Impressions Chest X-Ray 05/04/24 10:03 IMPRESSION: 1. No pneumothorax and near complete resolution of prior right pleural effusion post right thoracentesis. 2. Increasing small left pleural effusion. 3. Opacities in the left mid to lower and right lower lung zones which could represent atelectasis or pneumonia. 2. Cardiomegaly. Thoracentesis Ultrasound 05/04/24 10:09 IMPRESSION: 1. Successful ultrasound-guided thoracentesis yielding 700 mL of [id number] fluid. Labs Labs: Laboratory Results - last 24 hr 05/03/24 05/04/24 05/04/24 19:23 05:52 09:29 WBC 6.5 RBC 3.92 L Hgb 11.5 L Hct 36.1 L MCV 92.1 MCH 29.3 MCHC 31.9 L RDW 15.3 H Plt Count 319 MPV 10.7 H PT 15.7 H D INR 1.2 Sodium 132 L Potassium 3.9 Chloride 88 L Carbon Dioxide 39 H Anion Gap 5 BUN 30 H Creatinine 0.98 Estim Creat Clear Calc 39 Estimated GFR 54 L Glucose 90 Calcium 8.4 Total Bilirubin 0.5 AST 27 ALT 21 Alkaline Phosphatase 104 Lactate Dehydrogenase 174 Total Protein 6.0 L 6.0 L Albumin 3.3 L Pleural Fluid Source Pleural fluid Pleural Color Yellow Pleural Appearance Hazy Pleural pH > 7.500 H Pleural RBC 7000 Pleural Nuc Cells 457 Pleural Neutrophils 19 Pleural Lymphocytes 74 Pleural Monocytes 1 Pleural Mesothelial 6
[2024-05-04] MEDS: POTASSIUM CHLORIDE 20 MEQ ER TABLET 40 MEQ PO (17:11)
[2024-05-04] MEDS: MELATONIN 5 MG TABLET PO (21:18)
[2024-05-04] MEDS: AMIODARONE HCL 200 MG TABLET PO (21:19)
[2024-05-05] VITALS (24 sets, daily range): BP systolic 94–111; BP diastolic 55–73; PULSE 82–107; RESP 20–26; TEMP 36.4–36.6; O2SAT 92–100
[2024-05-05] MEDS: LEVOTHYROXINE SODIUM 75 MCG TABLET PO (05:31)
[2024-05-05 06:52] LABS: Anion Gap 4 mmol/L (4-12); Blood Urea Nitrogen 31 mg/dL (7-17); Calcium 8.1 mg/dL (8.4-10.2); Carbon Dioxide 39 mmol/L (22-30); Chloride 89 mmol/L (98-107); Estimated CRCL calculation 43 ml/min; Estimated Glomerular Filt Rate > 60; Glucose 99 mg/dL (65-110); Potassium 3.4 mmol/L (3.4-5.0); Sodium 132 mmol/L (137-145)
[2024-05-05] MEDS: ATORVASTATIN 40 MG TABLET PO (09:25)
[2024-05-05] MEDS: PANTOPRAZOLE 40 MG TABLET PO (09:25)
[2024-05-05] MEDS: busPIRone HCL 5 MG TABLET PO ×2 (09:26→17:16)
[2024-05-05] MEDS: POTASSIUM CHLORIDE 20 MEQ ER TABLET 40 MEQ PO ×2 (09:26→17:15)
[2024-05-05] MEDS: METOPROLOL TARTRATE 50 MG TAB PO ×2 (09:26→21:01)
[2024-05-05] MEDS: MAGNESIUM OXIDE 400 MG TABLET PO (09:26)
[2024-05-05] MEDS: LORATADINE 10 MG TABLET PO (09:26)
[2024-05-05] MEDS: FUROSEMIDE INJ 40 MG/4 ML VIAL IV PUSH ×2 (09:27→17:16)
--- NOTE | 2024-05-05 09:35 | PM.PNPUL ---
Progress Note: A&P Assessment and Plan (1) Chronic respiratory failure: Qualifiers: Respiratory failure complication: hypoxia Qualified Code(s): J96.11 - Chronic respiratory failure with hypoxia Code(s): J96.10 - Chronic respiratory failure, unspecified whether with hypoxia or hypercapnia Status: Acute (2) Acute on chronic hypoxic respiratory failure: Code(s): J96.21 - Acute and chronic respiratory failure with hypoxia Status: Acute Assessment and Plan: This 88-year-old female patient, with a history of mild COPD managed with maintenance bronchodilators and chronic hypoxemia treated with supplemental oxygen, has untreated sleep apnea and also atrial fibrillation for which she is receiving treatment, including anticoagulants. Last month, she was hospitalized due to respiratory failure initially caused by a pneumothorax. However, hypoxemic respiratory failure, particularly nocturnal hypoxemia, persisted due to congestive heart failure, as evidenced by a chest X-ray showing pulmonary edema and bilateral pleural effusions. The patient responded well to treatment for congestive heart failure, with radiographic evidence showing a reduction in the size of bilateral pleural effusions. Despite having mild sleep apnea, the patient refused to use CPAP. During her last hospitalization, she was placed on BiPAP support with supplemental oxygen at 3 liters per minute, and an ApneaLink study showed no significant oxyhemoglobin desaturation. Under these settings, the patient was discharged to a long term while efforts were made to obtain insurance approval for a home ventilator due to her unstable cardiorespiratory status and complications from chronic nocturnal hypoxemia. During her stay in the long term, the patient reported difficulties with nighttime BiPAP support. I suspect this hospitalization was triggered by increased pleural effusions due to worsening congestive heart failure. There is no indication of a COPD exacerbation or lower respiratory tract infection. Since her admission to the hospital, the patient has been receiving BiPAP support with pressures set at 12/8, alongside supplemental oxygen at relatively high flow rates. She continues to show no signs of a lower respiratory tract infection. The patient has been fluid negative by more than 6 liters since her admission. The latest chest X-ray indicates a reduction in the size of the left pleural effusion compared to the admission film. She underwent thoracentesis yesterday with removal of approximately 700 of reddish/orange colored fluid. Pleural fluid analysis so far shows lymphocytic pleural effusion related to chronicity with a normal pH. Regarding ApneaLink study conducted on patient's home unit there was no significant oxyhemoglobin desaturation while the patient was using relatively high oxygen flow at 8 liters/minute. Plan: Continue with the current management, which includes BiPAP support and supplemental oxygen. The patient should use her own home device to address nocturnal hypoxemia. I recommend attempting to titrate the oxygen to a lower flow rate. Since the primary issue is congestive heart failure and we have successfully addressed the nocturnal hypoxemia, I will conclude my involvement at this point. Consider repeating ApneaLink study on lower FiO2 just prior to discharge the patient. Please feel free to contact me with any questions. (3) COPD (chronic obstructive pulmonary disease): Qualifiers: COPD type: unspecified COPD Qualified Code(s): J44.9 - Chronic obstructive pulmonary disease, unspecified Code(s): J44.9 - Chronic obstructive pulmonary disease, unspecified Status: Acute (4) Pleural effusion: Code(s): J90 - Pleural effusion, not elsewhere classified Status: Acute (5) CHF (congestive heart failure): Qualifiers: Heart failure type: unspecified Heart failure chronicity: unspecified Qualified Code(s): I50.9 - Heart failure, unspecified Code(s): I50.9 - Heart failure, unspecified Status: Acute (6) Afib: Qualifiers: Atrial fibrillation type: unspecified Qualified Code(s): I48.91 - Unspecified atrial fibrillation Code(s): I48.91 - Unspecified atrial fibrillation Status: Acute (7) Acute heart failure with preserved ejection fraction (HFpEF): Code(s): I50.31 - Acute diastolic (congestive) heart failure Status: Acute Subjective Date/time seen: 05/05/24 09:35 Interval history: Patient has no new respiratory symptoms today. Remains on relatively high FiO2 through nasal cannula. Underwent ApneaLink study while using home BiPAP device. Underwent thoracentesis yesterday. Review of Systems Review of Systems: All systems reviewed & are unremarkable except as noted in HPI and below (HPI and below) Exam Narrative: GENERAL APPEARANCE: Well developed, well nourished, alert and cooperative, and appears to be in mild respiratory distress while on high-flow nasal cannula oxygen SKIN: Inspection of the skin reveals no rashes, ulcerations or petechiae. HEENT: Sclerae anicteric and conjunctivae pink and moist. Extraocular movements were intact and pupils were equal, round. Dry oral mucosa. NECK: Supple. There was no thyroid enlargement, and no tenderness, or masses were felt. LUNGS: Decreased breath sounds and few crackles at bases posteriorly no wheezing CARDIAC: There was irregular rate and rhythm without any murmurs, gallops, rubs. ABDOMEN: Soft and nontender with normal bowel sounds. There was no organomegaly. LYMPH NODES: No lymphadenopathy was appreciated in the neck, axillae or groin. EXTREMITIES: No cyanosis, clubbing. no pedal edema. NEUROLOGIC: Alert. Normal affect. Objective Data Vital Signs Vital Signs: Vital Signs - 24 hr 05/04/24 10:00 05/04/24 10:35 05/04/24 10:36 Temperature Pulse Rate 107 H 106 H Respiratory Rate 20 Blood Pressure Pulse Oximetry 92 Oxygen Delivery High Flow Nasal Cannula Oxygen Flow Rate 11 05/04/24 12:00 05/04/24 12:00 05/04/24 12:00 Temperature 36.4 C L Pulse Rate 115 H 114 H 108 H Respiratory Rate 20 20 Blood Pressure 106/58 L Pulse Oximetry 90 90 Oxygen Delivery High Flow Nasal Cannula Oxygen Flow Rate 8 05/04/24 12:11 05/04/24 14:00 05/04/24 15:40 Temperature 36.9 C Pulse Rate 114 H 93 90 Respiratory Rate 18 Blood Pressure 109/49 L Pulse Oximetry 92 Oxygen Delivery Oxygen Flow Rate 05/04/24 16:00 05/04/24 16:00 05/04/24 18:00 Temperature Pulse Rate 90 108 H 103 H Respiratory Rate 18 Blood Pressure Pulse Oximetry 92 Oxygen Delivery High Flow Nasal Cannula Oxygen Flow Rate 7 05/04/24 20:00 05/04/24 20:00 05/04/24 20:00 Temperature 36.6 C Pulse Rate 104 H 113 H Respiratory Rate 18 Blood Pressure 98/46 L Pulse Oximetry 92 90 Oxygen Delivery High Flow Nasal Cannula Oxygen Flow Rate 7 05/04/24 21:19 05/04/24 21:19 05/04/24 22:00 Temperature Pulse Rate 122 H 122 H 90 Respiratory Rate Blood Pressure Pulse Oximetry Oxygen Delivery Oxygen Flow Rate 05/04/24 23:15 05/04/24 23:16 05/04/24 23:19 Temperature 36.6 C Pulse Rate 99 99 93 Respiratory Rate 22 H Blood Pressure 105/77 Pulse Oximetry 93 93 93 Oxygen Delivery BiPAP BiPAP Oxygen Flow Rate 8 05/05/24 00:00 05/05/24 00:00 05/05/24 02:00 Temperature Pulse Rate 87 82 Respiratory Rate Blood Pressure Pulse Oximetry 94 Oxygen Delivery High Flow Nasal Cannula Oxygen Flow Rate 7 05/05/24 02:36 05/05/24 04:00 05/05/24 04:00 Temperature 36.6 C Pulse Rate 85 88 Respiratory Rate 26 H 22 H Blood Pressure Pulse Oximetry 98 100 96 Oxygen Delivery BiPAP High Flow Nasal Cannula Oxygen Flow Rate 7 05/05/24 04:00 05/05/24 05:42 05/05/24 07:53 Temperature 36.4 C Pulse Rate 94 103 H Respiratory Rate 20 Blood Pressure 96/64 L 102/73 Pulse Oximetry 92 Oxygen Delivery Oxygen Flow Rate 05/05/24 09:26 Temperature Pulse Rate 95 Respiratory Rate Blood Pressure Pulse Oximetry Oxygen Delivery Oxygen Flow Rate Intake/Output Intake/Output: Intake & Output 05/02/24 05/03/24 05/04/24 05/05/24 23:59 23:59 23:59 23:59 Intake Total 1226 1140 1280 270 Output Total 3025 4450 5225 400 Balance -1799 -3310 -3945 -130 Meds/Results Medications: Active Medications Generic Name Dose Route Start Last Admin Trade Name Freq PRN Reason Stop Dose Admin Acetaminophen 650 mg 04/30/24 16:00 Acetaminophen 325 Mg Tablet PO Q4H PRN Mild Pain (1-3) or Fever Amiodarone HCl 200 mg 05/01/24 22:00 05/04/24 21:19 Amiodarone Hcl 200 Mg Tablet PO 200 mg Q24H MIGUEL Administration Atorvastatin Calcium 40 mg 05/01/24 09:00 05/05/24 09:25 Atorvastatin 40 Mg Tablet PO 40 mg DAILY MIGUEL Administration Buspirone HCl 5 mg 05/01/24 09:00 05/05/24 09:26 Buspirone Hcl 5 Mg Tablet PO 5 mg BID MIGUEL Administration Fluticasone/Umeclidinium/Vilanterol 1 puff 05/01/24 08:00 05/04/24 10:33 Fluticasone/Umeclidin/Vilanter 100-62.5-25 Mcg Ellipta INHALATION 1 puff DAILYRT MIGUEL Administration Furosemide 40 mg 05/01/24 09:00 05/05/24 09:27 Furosemide Inj 40 Mg/4 Ml Vial IV PUSH 40 mg BID MIGUEL Administration Levothyroxine Sodium 75 mcg 05/01/24 06:30 05/05/24 05:31 Levothyroxine Sodium 75 Mcg Tablet PO 75 mcg DAILY@0630 MIGUEL Administration Lidocaine 1 patch 05/04/24 13:04 Lidocaine 5% Patch TRANSDERM DAILY PRN Pain Loratadine 10 mg 05/01/24 09:00 05/05/24 09:26 Loratadine 10 Mg Tablet PO 10 mg DAILY MIGUEL Administration Magnesium Oxide 400 mg 05/01/24 09:00 05/05/24 09:26 Magnesium Oxide 400 Mg Tablet PO 400 mg QAM MIGUEL Administration Melatonin 5 mg 05/01/24 21:00 05/04/24 21:18 Melatonin 5 Mg Tablet PO 5 mg HS MIGUEL Administration Metoprolol Tartrate 50 mg 05/02/24 21:00 05/05/24 09:26 Metoprolol Tartrate 50 Mg Tab PO 50 mg Q12HR MIGUEL Administration Pantoprazole Sodium 40 mg 05/01/24 09:00 05/05/24 09:25 Pantoprazole 40 Mg Tablet PO 40 mg QAM MIGUEL Administration Potassium Chloride 40 meq 05/04/24 17:00 05/05/24 09:26 Potassium Chloride 20 Meq Er Tablet PO 40 meq BID MIGUEL Administration Senna/Docusate Sodium 2 tab 05/01/24 00:06 Senna/Docusate Sodium Tablet PO BID PRN Constipation Radiology Results: ITS Impressions Chest X-Ray 05/04/24 10:03 IMPRESSION: 1. No pneumothorax and near complete resolution of prior right pleural effusion post right thoracentesis. 2. Increasing small left pleural effusion. 3. Opacities in the left mid to lower and right lower lung zones which could represent atelectasis or pneumonia. 2. Cardiomegaly. Thoracentesis Ultrasound 05/04/24 10:09 IMPRESSION: 1. Successful ultrasound-guided thoracentesis yielding 700 mL of [id number] fluid. Labs Labs: Laboratory Results - last 24 hr 05/04/24 05/05/24 09:29 06:21 Sodium 132 L Potassium 3.4 Chloride 89 L Carbon Dioxide 39 H Anion Gap 4 BUN 31 H Creatinine 0.87 Estim Creat Clear Calc 43 Estimated GFR > 60 Glucose 99 Calcium 8.1 L Pleural Fluid Source Pleural fluid Pleural Color Yellow Pleural Appearance Hazy Pleural pH > 7.500 H Pleural RBC 7000 Pleural Nuc Cells 457 Pleural Neutrophils 19 Pleural Lymphocytes 74 Pleural Monocytes 1 Pleural Mesothelial 6
[2024-05-05] MEDS: FLUTICASONE/UMECLIDIN/VILANTER 100-62.5-25 MCG ELLIPTA 1 PUFF INHALATION (09:57)
--- NOTE | 2024-05-05 16:03 | PM.IMPN ---
Progress Note: A&P Assessment and Plan (1) Acute on chronic hypoxic respiratory failure: Code(s): J96.21 - Acute and chronic respiratory failure with hypoxia Status: Acute Assessment and Plan: bipap at night 10 liters in day Trilogy Ellipta 1 puff daily Levalbuterol q.6 hours Pulmonology following see recommendations sp Thoracocentesis Eliquis on hold now n 5 liters oxygen, baseline is 3-4 liters (2) Acute heart failure with preserved ejection fraction (HFpEF): Code(s): I50.31 - Acute diastolic (congestive) heart failure Status: Acute Assessment and Plan: Continue Lasix 40 mg b.i.d. IV Dose of metolazone to facilitate diuresis as per Cardiology Continue amiodarone 200 mg p.o. q.d. (3) Atrial fibrillation with rapid ventricular response: Code(s): I48.91 - Unspecified atrial fibrillation Status: Acute Assessment and Plan: Continue amiodarone 200 mg p.o. q.d. Eliquis on hold (4) MARC (obstructive sleep apnea): Code(s): G47.33 - Obstructive sleep apnea (adult) (pediatric) Status: Acute Assessment and Plan: Apnea link Refused to use CPAP (5) Goals of care, counseling/discussion: Code(s): Z71.89 - Other specified counseling Status: Acute (6) Pleural effusion: Code(s): J90 - Pleural effusion, not elsewhere classified Status: Acute Assessment and Plan: CXR:Large bilateral pleural effusions, right greater than left. sp thoracentesis on the right Plan DVT prophylaxis on Eliquis Subjective Date/time seen: 05/05/24 16:03 Interval history: Comfortable at bedside oxygen reqirement improvinv Review of Systems Review of Systems: SOB at rest on 10 liters of oxygen Exam Narrative: Weight 98.9 kg BMI 39.9 Const: Other: sob at rest on 10 liters of oxygen HENMT: Other: BiPAP in place,head is normocephalic atraumatic, pupils are equal and reactive, lens replacements noted bilateral,no scleral icterus Neck: Other: no JVD, no lymphadenopathy Resp: Other: Coarse breath sounds Cardio: Other: regular rate, irregularregular rhythm, 2+ bilateral radial pedal pulses, no JVD GI: Other: soft, nontender, nondistended, positive bowel sounds Skin: Other: mild pallor, non jaundice, normal temperature to touch Neuro: Other: alert oriented x3 Extrem: Other: 2 to 3+ pitting edema lower extremities Psych: Other: appropriate mood and affect, pleasant and cooperative, judgment and insight intact Objective Data Vital Signs Vital Signs: Vital Signs - 24 hr 05/04/24 18:00 05/04/24 20:00 05/04/24 20:00 Temperature 97.8 F Pulse Rate 103 H 104 H 113 H Respiratory Rate 18 Blood Pressure 98/46 L Pulse Oximetry 92 Oxygen Delivery Oxygen Flow Rate 05/04/24 20:00 05/04/24 21:19 05/04/24 21:19 Temperature Pulse Rate 122 H 122 H Respiratory Rate Blood Pressure Pulse Oximetry 90 Oxygen Delivery High Flow Nasal Cannula Oxygen Flow Rate 7 05/04/24 22:00 05/04/24 23:15 05/04/24 23:16 Temperature Pulse Rate 90 99 99 Respiratory Rate Blood Pressure Pulse Oximetry 93 93 Oxygen Delivery BiPAP BiPAP Oxygen Flow Rate 8 05/04/24 23:19 05/05/24 00:00 05/05/24 00:00 Temperature 97.8 F Pulse Rate 93 87 Respiratory Rate 22 H Blood Pressure 105/77 Pulse Oximetry 93 94 Oxygen Delivery High Flow Nasal Cannula Oxygen Flow Rate 7 05/05/24 02:00 05/05/24 02:36 05/05/24 04:00 Temperature 97.8 F Pulse Rate 82 85 88 Respiratory Rate 26 H 22 H Blood Pressure Pulse Oximetry 98 100 Oxygen Delivery BiPAP Oxygen Flow Rate 05/05/24 04:00 05/05/24 04:00 05/05/24 05:42 Temperature Pulse Rate 94 Respiratory Rate Blood Pressure 96/64 L Pulse Oximetry 96 Oxygen Delivery High Flow Nasal Cannula Oxygen Flow Rate 7 05/05/24 06:00 05/05/24 07:53 05/05/24 08:00 Temperature 97.6 F Pulse Rate 88 103 H 107 H Respiratory Rate 20 Blood Pressure 102/73 Pulse Oximetry 92 Oxygen Delivery Oxygen Flow Rate 05/05/24 09:26 05/05/24 09:57 05/05/24 09:57 Temperature Pulse Rate 95 102 H 102 H Respiratory Rate 20 Blood Pressure Pulse Oximetry 92 Oxygen Delivery High Flow Nasal Cannula Oxygen Flow Rate 7 05/05/24 10:00 05/05/24 11:52 05/05/24 11:53 Temperature 97.5 F L Pulse Rate 99 86 104 H Respiratory Rate 20 20 Blood Pressure 108/71 Pulse Oximetry 93 97 Oxygen Delivery Nasal Cannula Oxygen Flow Rate 5 05/05/24 12:00 05/05/24 14:00 Temperature Pulse Rate 99 86 Respiratory Rate Blood Pressure Pulse Oximetry Oxygen Delivery Oxygen Flow Rate Intake/Output Intake/Output: Intake & Output 05/02/24 05/03/24 05/04/24 05/05/24 23:59 23:59 23:59 23:59 Intake Total 1226 1140 1280 510 Output Total 3025 4450 5225 1300 [facility] -1799 -3310 -3945 -790 Meds/Results Medications: Active Medications Generic Name Dose Route Start Last Admin Trade Name Freq PRN Reason Stop Dose Admin Acetaminophen 650 mg 04/30/24 16:00 Acetaminophen 325 Mg Tablet PO Q4H PRN Mild Pain (1-3) or Fever Amiodarone HCl 200 mg 05/01/24 22:00 05/04/24 21:19 Amiodarone Hcl 200 Mg Tablet PO 200 mg Q24H MIGUEL Administration Atorvastatin Calcium 40 mg 05/01/24 09:00 05/05/24 09:25 Atorvastatin 40 Mg Tablet PO 40 mg DAILY MIGUEL Administration Buspirone HCl 5 mg 05/01/24 09:00 05/05/24 09:26 Buspirone Hcl 5 Mg Tablet PO 5 mg BID MIGUEL Administration Fluticasone/Umeclidinium/Vilanterol 1 puff 05/01/24 08:00 05/05/24 09:57 Fluticasone/Umeclidin/Vilanter 100-62.5-25 Mcg Ellipta INHALATION 1 puff DAILYRT MIGUEL Administration Furosemide 40 mg 05/01/24 09:00 05/05/24 09:27 Furosemide Inj 40 Mg/4 Ml Vial IV PUSH 40 mg BID MIGUEL Administration Levothyroxine Sodium 75 mcg 05/01/24 06:30 05/05/24 05:31 Levothyroxine Sodium 75 Mcg Tablet PO 75 mcg DAILY@0630 MIGUEL Administration Lidocaine 1 patch 05/04/24 13:04 Lidocaine 5% Patch TRANSDERM DAILY PRN Pain Loratadine 10 mg 05/01/24 09:00 05/05/24 09:26 Loratadine 10 Mg Tablet PO 10 mg DAILY MIGUEL Administration Magnesium Oxide 400 mg 05/01/24 09:00 05/05/24 09:26 Magnesium Oxide 400 Mg Tablet PO 400 mg QAM MIGUEL Administration Melatonin 5 mg 05/01/24 21:00 05/04/24 21:18 Melatonin 5 Mg Tablet PO 5 mg HS MIGUEL Administration Metoprolol Tartrate 50 mg 05/02/24 21:00 05/05/24 09:26 Metoprolol Tartrate 50 Mg Tab PO 50 mg Q12HR MIGUEL Administration Pantoprazole Sodium 40 mg 05/01/24 09:00 05/05/24 09:25 Pantoprazole 40 Mg Tablet PO 40 mg QAM MIGUEL Administration Potassium Chloride 40 meq 05/04/24 17:00 05/05/24 09:26 Potassium Chloride 20 Meq Er Tablet PO 40 meq BID MIGUEL Administration Senna/Docusate Sodium 2 tab 05/01/24 00:06 Senna/Docusate Sodium Tablet PO BID PRN Constipation Radiology Results: ITS Impressions Chest X-Ray 05/04/24 10:03 IMPRESSION: 1. No pneumothorax and near complete resolution of prior right pleural effusion post right thoracentesis. 2. Increasing small left pleural effusion. 3. Opacities in the left mid to lower and right lower lung zones which could represent atelectasis or pneumonia. 2. Cardiomegaly. Thoracentesis Ultrasound 05/04/24 10:09 IMPRESSION: 1. Successful ultrasound-guided thoracentesis yielding 700 mL of [id number]-[id number] fluid. Labs Labs: Laboratory Results - last 24 hr 05/05/24 06:21 Sodium 132 L Potassium 3.4 Chloride 89 L Carbon Dioxide 39 H Anion Gap 4 BUN 31 H Creatinine 0.87 Estim Creat Clear Calc 43 Estimated GFR > 60 Glucose 99 Calcium 8.1 L Quality VTE Prophylaxis VTE prophylaxis: mechanical ordered (SCDs)
[2024-05-05] MEDS: AMIODARONE HCL 200 MG TABLET PO (21:00)
[2024-05-05] MEDS: APIXABAN 2.5 MG TABLET PO (21:00)
[2024-05-05] MEDS: MELATONIN 5 MG TABLET PO (21:01)
[2024-05-06] VITALS (21 sets, daily range): BP systolic 89–106; BP diastolic 54–71; PULSE 83–110; RESP 16–20; TEMP 36.4–37; O2SAT 90–99
[2024-05-06 04:35] LABS: Basophils Percent Auto 0.4 % (0.2-1.2); Eosinophils Absolute Auto 0.2 K/mm3 (0-0.3); Eosinophils Percent Auto 3.2 % (0-4.4); Hematocrit 38.2 % (37.0-47.0); Hemoglobin 12.1 g/dL (12.0-15.0); Immature Granulocyte Absolute 0.08 K/mm3 (0.00-0.031); Immature Granulocyte Percent A 1.1 % (0-0.5); Lymphocytes Absolute Auto 0.71 K/mm3 (0.9-3.2); Lymphocytes Percent Auto 9.6 % (18.3-44.2); Mean Corpuscular HGB Conc 31.7 g/dl (32-36); Mean Corpuscular Hemoglobin 28.8 pg (26-34); Mean Platelet Volume 10.6 fl (7.4-10.4); Monocytes Absolute Auto 0.9 K/mm3 (0.1-0.6); Monocytes Percent Auto 11.7 % (2.6-8.5); Neutrophils Absolute Auto 5.5 K/mm3 (1.3-6.7); Platelet Count Result 309 k/mm3 (150-375); White Blood Count 7.4 K/mm3 (4.5-10.0)
[2024-05-06 04:54] LABS: Alanine Aminotransferase 15 U/L (6-35); Alkaline Phosphatase 94 U/L (38-126); Anion Gap 6 mmol/L (4-12); Aspartate Amino Transferase 17 U/L (14-36); Bilirubin,Total 0.5 mg/dL (0.2-1.3); Blood Urea Nitrogen 27 mg/dL (7-17); Calcium 7.9 mg/dL (8.4-10.2); Carbon Dioxide 37 mmol/L (22-30); Chloride 89 mmol/L (98-107); Estimated CRCL calculation 45 ml/min; Estimated Glomerular Filt Rate > 60; Glucose 99 mg/dL (65-110); Magnesium 1.6 mg/dL (1.6-2.3); Potassium 3.8 mmol/L (3.4-5.0); Sodium 132 mmol/L (137-145)
[2024-05-06] MEDS: LEVOTHYROXINE SODIUM 75 MCG TABLET PO (06:07)
[2024-05-06] MEDS: FLUTICASONE/UMECLIDIN/VILANTER 100-62.5-25 MCG ELLIPTA 1 PUFF INHALATION (07:57)
[2024-05-06] MEDS: POTASSIUM CHLORIDE 20 MEQ ER TABLET 40 MEQ PO ×2 (08:50→17:23)
[2024-05-06] MEDS: PANTOPRAZOLE 40 MG TABLET PO (08:52)
[2024-05-06] MEDS: APIXABAN 2.5 MG TABLET PO ×2 (08:54→21:08)
[2024-05-06] MEDS: LORATADINE 10 MG TABLET PO (08:54)
[2024-05-06] MEDS: busPIRone HCL 5 MG TABLET PO ×2 (08:55→17:23)
[2024-05-06] MEDS: MAGNESIUM OXIDE 400 MG TABLET PO (08:55)
[2024-05-06] MEDS: ATORVASTATIN 40 MG TABLET PO (08:56)
[2024-05-06] MEDS: METOPROLOL TARTRATE 50 MG TAB PO ×2 (09:11→21:08)
--- NOTE | 2024-05-06 13:26 | PM.IMPN ---
Progress Note: A&P Assessment and Plan (1) Acute on chronic hypoxic respiratory failure: Code(s): J96.21 - Acute and chronic respiratory failure with hypoxia Status: Acute Assessment and Plan: bipap at night 10 liters in day Trilogy Ellipta 1 puff daily Levalbuterol q.6 hours Pulmonology following see recommendations sp Thoracocentesis Eliquis on hold now n 4 liters oxygen, baseline is 3-4 liters (2) Acute heart failure with preserved ejection fraction (HFpEF): Code(s): I50.31 - Acute diastolic (congestive) heart failure Status: Acute Assessment and Plan: Hold Lasix due to soft blood pressure Dose of metolazone to facilitate diuresis as per Cardiology Continue amiodarone 200 mg p.o. q.d. (3) Atrial fibrillation with rapid ventricular response: Code(s): I48.91 - Unspecified atrial fibrillation Status: Acute Assessment and Plan: Continue amiodarone 200 mg p.o. q.d. Eliquis on hold (4) MARC (obstructive sleep apnea): Code(s): G47.33 - Obstructive sleep apnea (adult) (pediatric) Status: Acute Assessment and Plan: Apnea link Refused to use CPAP (5) Goals of care, counseling/discussion: Code(s): Z71.89 - Other specified counseling Status: Acute (6) Pleural effusion: Code(s): J90 - Pleural effusion, not elsewhere classified Status: Acute Assessment and Plan: CXR:Large bilateral pleural effusions, right greater than left. sp thoracentesis on the right Plan DVT prophylaxis on Eliquis Re-evaluate tomorrow for discharge Subjective Date/time seen: 05/06/24 13:26 Interval history: Comfortable at bedside oxygen requirement improving Review of Systems Review of Systems: SOB at rest on 10 liters of oxygen Exam Narrative: Weight 98.9 kg BMI 39.9 Const: Other: sob at rest on 10 liters of oxygen HENMT: Other: BiPAP in place,head is normocephalic atraumatic, pupils are equal and reactive, lens replacements noted bilateral,no scleral icterus Neck: Other: no JVD, no lymphadenopathy Resp: Other: Coarse breath sounds Cardio: Other: regular rate, irregularregular rhythm, 2+ bilateral radial pedal pulses, no JVD GI: Other: soft, nontender, nondistended, positive bowel sounds Skin: Other: mild pallor, non jaundice, normal temperature to touch Neuro: Other: alert oriented x3 Extrem: Other: 2 to 3+ pitting edema lower extremities Psych: Other: appropriate mood and affect, pleasant and cooperative, judgment and insight intact Objective Data Vital Signs Vital Signs: Vital Signs - 24 hr 05/05/24 14:00 05/05/24 15:46 05/05/24 16:00 Temperature 97.7 F Pulse Rate 86 98 98 Respiratory Rate 22 H 24 H Blood Pressure 94/67 L Pulse Oximetry 92 92 Oxygen Delivery High Flow Nasal Cannula Oxygen Flow Rate 5 05/05/24 16:00 05/05/24 17:15 05/05/24 17:15 Temperature Pulse Rate 100 89 Respiratory Rate 22 H Blood Pressure 111/66 Pulse Oximetry 93 Oxygen Delivery High Flow Nasal Cannula Oxygen Flow Rate 4 05/05/24 18:00 05/05/24 20:00 05/05/24 20:00 Temperature 97.7 F Pulse Rate 100 99 Respiratory Rate 22 H Blood Pressure 103/61 Pulse Oximetry 93 92 Oxygen Delivery High Flow Nasal Cannula Oxygen Flow Rate 3 05/05/24 20:00 05/05/24 21:00 05/05/24 21:01 Temperature Pulse Rate 90 99 99 Respiratory Rate Blood Pressure Pulse Oximetry Oxygen Delivery Oxygen Flow Rate 05/05/24 22:00 05/05/24 23:33 05/06/24 00:00 Temperature 97.7 F Pulse Rate 89 86 Respiratory Rate 22 H Blood Pressure 94/55 L Pulse Oximetry 92 96 Oxygen Delivery CPAP Oxygen Flow Rate 3 05/06/24 00:00 05/06/24 02:00 05/06/24 04:00 Temperature Pulse Rate 103 H 95 90 Respiratory Rate Blood Pressure Pulse Oximetry Oxygen Delivery Oxygen Flow Rate 05/06/24 04:00 05/06/24 04:00 05/06/24 06:00 Temperature 97.7 F Pulse Rate 83 91 Respiratory Rate 20 Blood Pressure 92/63 L Pulse Oximetry 99 99 Oxygen Delivery CPAP Oxygen Flow Rate 3 05/06/24 07:27 05/06/24 08:05 05/06/24 08:40 Temperature 98.1 F Pulse Rate 101 H 90 Respiratory Rate 18 Blood Pressure 89/63 L 94/54 L Pulse Oximetry 92 90 93 Oxygen Delivery High Flow Nasal Cannula Oxygen Flow Rate 4 05/06/24 08:40 05/06/24 08:40 05/06/24 09:11 Temperature Pulse Rate 110 H 110 H 110 H Respiratory Rate 18 Blood Pressure Pulse Oximetry 93 Oxygen Delivery High Flow Nasal Cannula Oxygen Flow Rate 3 05/06/24 10:00 05/06/24 11:35 Temperature 97.7 F Pulse Rate 92 90 Respiratory Rate 18 Blood Pressure 92/67 L Pulse Oximetry 93 Oxygen Delivery Oxygen Flow Rate Intake/Output Intake/Output: Intake & Output 05/03/24 05/04/24 05/05/24 05/06/24 23:59 23:59 23:59 23:59 Intake Total 1140 1280 1160 600 Output Total 5150 5226 1600 1200 Balance -3310 -3945 -440 -600 Meds/Results Medications: Active Medications Generic Name Dose Route Start Last Admin Trade Name Freq PRN Reason Stop Dose Admin Acetaminophen 650 mg 04/30/24 16:00 Acetaminophen 325 Mg Tablet PO Q4H PRN Mild Pain (1-3) or Fever Amiodarone HCl 200 mg 05/01/24 22:00 05/05/24 21:00 Amiodarone Hcl 200 Mg Tablet PO 200 mg Q24H MIGUEL Administration Apixaban 2.5 mg 05/05/24 21:00 05/06/24 08:54 Apixaban 2.5 Mg Tablet PO 2.5 mg Q12HR MIGUEL Administration Atorvastatin Calcium 40 mg 05/01/24 09:00 05/06/24 08:56 Atorvastatin 40 Mg Tablet PO 40 mg DAILY MIGUEL Administration Buspirone HCl 5 mg 05/01/24 09:00 05/06/24 08:55 Buspirone Hcl 5 Mg Tablet PO 5 mg BID MIGUEL Administration Fluticasone/Umeclidinium/Vilanterol 1 puff 05/01/24 08:00 05/06/24 07:57 Fluticasone/Umeclidin/Vilanter 100-62.5-25 Mcg Ellipta INHALATION 1 puff DAILYRT MIGUEL Administration Furosemide 40 mg 05/01/24 09:00 05/06/24 10:54 Furosemide Inj 40 Mg/4 Ml Vial IV PUSH Not Given BID MIGUEL Levothyroxine Sodium 75 mcg 05/01/24 06:30 05/06/24 06:07 Levothyroxine Sodium 75 Mcg Tablet PO 75 mcg DAILY@0630 MIGUEL Administration Lidocaine 1 patch 05/04/24 13:04 Lidocaine 5% Patch TRANSDERM DAILY PRN Pain Loratadine 10 mg 05/01/24 09:00 05/06/24 08:54 Loratadine 10 Mg Tablet PO 10 mg DAILY MIGUEL Administration Magnesium Oxide 400 mg 05/01/24 09:00 05/06/24 08:55 Magnesium Oxide 400 Mg Tablet PO 400 mg QAM MIGUEL Administration Melatonin 5 mg 05/01/24 21:00 05/05/24 21:01 Melatonin 5 Mg Tablet PO 5 mg HS MIGUEL Administration Metoprolol Tartrate 50 mg 05/02/24 21:00 05/06/24 09:11 Metoprolol Tartrate 50 Mg Tab PO 50 mg Q12HR MIGUEL Administration Pantoprazole Sodium 40 mg 05/01/24 09:00 05/06/24 08:52 Pantoprazole 40 Mg Tablet PO 40 mg QAM MIGUEL Administration Potassium Chloride 40 meq 05/04/24 17:00 05/06/24 08:50 Potassium Chloride 20 Meq Er Tablet PO 40 meq BID MIGUEL Administration Senna/Docusate Sodium 2 tab 05/01/24 00:06 Senna/Docusate Sodium Tablet PO BID PRN Constipation Radiology Results: ITS Impressions Chest X-Ray 05/04/24 10:03 IMPRESSION: 1. No pneumothorax and near complete resolution of prior right pleural effusion post right thoracentesis. 2. Increasing small left pleural effusion. 3. Opacities in the left mid to lower and right lower lung zones which could represent atelectasis or pneumonia. 2. Cardiomegaly. Thoracentesis Ultrasound 05/04/24 10:09 IMPRESSION: 1. Successful ultrasound-guided thoracentesis yielding 700 mL of [id number]-[id number] fluid. Labs Labs: Laboratory Results - last 24 hr 05/06/24 04:08 WBC 7.4 RBC 4.20 Hgb 12.1 Hct 38.2 MCV 91.0 MCH 28.8 MCHC 31.7 L RDW 15.0 H Plt Count 309 MPV 10.6 H Immature Gran % (Auto) 1.1 H Neut % (Auto) 74.0 H Lymph % (Auto) 9.6 L [place] % (Auto) 11.7 H Eos % (Auto) 3.2 Baso % (Auto) 0.4 Lymph # (Auto) 0.71 L [place] # (Auto) 0.9 H Eos # (Auto) 0.2 Baso # (Auto) 0.0 Abs Immat Gran (auto) 0.08 H Absolute Neuts (auto) 5.5 Absolute Nucleated RBC 0.000 Nucleated RBC % 0.0 Sodium 132 L Potassium 3.8 Chloride 89 L Carbon Dioxide 37 H Anion Gap 6 BUN 27 H Creatinine 0.83 Estim Creat Clear Calc 45 Estimated GFR > 60 Glucose 99 Calcium 7.9 L Magnesium 1.6 Total Bilirubin 0.5 AST 17 ALT 15 Alkaline Phosphatase 94 Total Protein 6.0 L Albumin 3.0 L Quality VTE Prophylaxis VTE prophylaxis: mechanical ordered (SCDs)
[2024-05-06] MEDS: FUROSEMIDE INJ 40 MG/4 ML VIAL 20 MG IV PUSH (17:44)
[2024-05-06] MEDS: MELATONIN 5 MG TABLET PO (21:08)
[2024-05-06] MEDS: AMIODARONE HCL 200 MG TABLET PO (21:08)
[2024-05-07] VITALS (25 sets, daily range): BP systolic 95–112; BP diastolic 53–73; PULSE 69–100; RESP 18–20; TEMP 36.4–36.9; O2SAT 86–100
[2024-05-07 04:46] LABS: Hematocrit 38.7 % (37.0-47.0); Hemoglobin 12.3 g/dL (12.0-15.0); Mean Corpuscular HGB Conc 31.8 g/dl (32-36); Mean Corpuscular Hemoglobin 29.1 pg (26-34); Mean Corpuscular Volume 91.5 fl (80-100); Mean Platelet Volume 10.5 fl (7.4-10.4); Platelet Count Result 280 k/mm3 (150-375); Red Blood Count 4.23 M/mm3 (4.2-5.4); Red Cell Distribution Width 15.1 % (11.5-14.5); White Blood Count 7.6 K/mm3 (4.5-10.0)
[2024-05-07 05:03] LABS: Alanine Aminotransferase 16 U/L (6-35); Albumin Level 3.1 g/dL (3.5-5.1); Alkaline Phosphatase 99 U/L (38-126); Anion Gap 6 mmol/L (4-12); Aspartate Amino Transferase 18 U/L (14-36); Bilirubin,Total 0.6 mg/dL (0.2-1.3); Blood Urea Nitrogen 24 mg/dL (7-17); Calcium 8.1 mg/dL (8.4-10.2); Carbon Dioxide 35 mmol/L (22-30); Chloride 93 mmol/L (98-107); Estimated CRCL calculation 46 ml/min; Estimated Glomerular Filt Rate > 60; Glucose 100 mg/dL (65-110); Magnesium 1.7 mg/dL (1.6-2.3); Sodium 134 mmol/L (137-145)
[2024-05-07 05:05] LABS: Lactic Acid Reflex 0.9 mmol/L (0.7-2.0)
[2024-05-07] MEDS: LEVOTHYROXINE SODIUM 75 MCG TABLET PO (05:32)
[2024-05-07] MEDS: LORATADINE 10 MG TABLET PO (08:22)
[2024-05-07] MEDS: METOPROLOL TARTRATE 50 MG TAB PO ×2 (08:22→21:40)
[2024-05-07] MEDS: busPIRone HCL 5 MG TABLET PO ×2 (08:23→16:44)
[2024-05-07] MEDS: MAGNESIUM OXIDE 400 MG TABLET PO (08:23)
[2024-05-07] MEDS: PANTOPRAZOLE 40 MG TABLET PO (08:23)
[2024-05-07] MEDS: ATORVASTATIN 40 MG TABLET PO (08:23)
[2024-05-07] MEDS: APIXABAN 2.5 MG TABLET PO ×2 (08:23→21:41)
[2024-05-07] MEDS: POTASSIUM CHLORIDE 20 MEQ ER TABLET 40 MEQ PO ×2 (08:23→16:44)
[2024-05-07] MEDS: FUROSEMIDE INJ 40 MG/4 ML VIAL 20 MG IV PUSH ×2 (08:24→16:44)
[2024-05-07] MEDS: FLUTICASONE/UMECLIDIN/VILANTER 100-62.5-25 MCG ELLIPTA 1 PUFF INHALATION (08:47)
--- NOTE | 2024-05-07 09:31 | PCNWS ---
Weekly nutritional screen. Patient is tolerating current Heart Healthy diet with adequate intake, 75-90%. No weight loss reported. No nutritional needs at this time.
--- NOTE | 2024-05-07 18:17 | P.PNIM_ITS ---
Progress Note: A&P Assessment and Plan (1) Acute on chronic hypoxic respiratory failure: Code(s): J96.21 - Acute and chronic respiratory failure with hypoxia Status: Acute Assessment and Plan: bipap at night 10 liters in day Trilogy Ellipta 1 puff daily Levalbuterol q.6 hours Pulmonology following see recommendations sp Thoracocentesis Eliquis on hold now at baseline is 3-4 liters (2) Acute heart failure with preserved ejection fraction (HFpEF): Code(s): I50.31 - Acute diastolic (congestive) heart failure Status: Acute Assessment and Plan: continue lasix at 20mg bid Dose of metolazone to facilitate diuresis as per Cardiology Continue amiodarone 200 mg p.o. q.d. (3) Atrial fibrillation with rapid ventricular response: Code(s): I48.91 - Unspecified atrial fibrillation Status: Acute Assessment and Plan: Continue amiodarone 200 mg p.o. q.d. Eliquis on hold (4) MARC (obstructive sleep apnea): Code(s): G47.33 - Obstructive sleep apnea (adult) (pediatric) Status: Acute Assessment and Plan: Apnea link Refused to use CPAP (5) Goals of care, counseling/discussion: Code(s): Z71.89 - Other specified counseling Status: Acute (6) Pleural effusion: Code(s): J90 - Pleural effusion, not elsewhere classified Status: Acute Assessment and Plan: CXR:Large bilateral pleural effusions, right greater than left. sp thoracentesis on the right Plan DVT prophylaxis on Eliquis Discharge tomorrow Subjective Date/time seen: 05/07/24 18:17 Interval history: Comfortable at bedside oxygen requirement improving discharge tomorrow Review of Systems Review of Systems: SOB at rest on 10 liters of oxygen Exam Narrative: Weight 98.9 kg BMI 39.9 Const: Other: sob at rest on 10 liters of oxygen HENMT: Other: BiPAP in place,head is normocephalic atraumatic, pupils are equal and reactive , lens replacements noted bilateral,no scleral icterus Neck: Other: no JVD, no lymphadenopathy Resp: Other: Coarse breath sounds Cardio: Other: regular rate, irregularregular rhythm, 2+ bilateral radial pedal pulses, no JVD GI: Other: soft, nontender, nondistended, positive bowel sounds Skin: Other: mild pallor, non jaundice, normal temperature to touch Neuro: Other: alert oriented x3 Extrem: Other: 2 to 3+ pitting edema lower extremities Psych: Other: appropriate mood and affect, pleasant and cooperative, judgment and insight intact Objective Data Vital Signs Vital Signs: Vital Signs - 24 hr 05/06/24 19:50 05/06/24 20:00 05/06/24 20:00 Temperature 97.5 F L Pulse Rate 100 87 Respiratory Rate 20 Blood Pressure 106/71 Pulse Oximetry 92 92 Oxygen Delivery High Flow Therapy with Na Oxygen Flow Rate 3 05/06/24 21:08 05/06/24 21:08 05/06/24 22:00 Temperature Pulse Rate 93 93 92 Respiratory Rate Blood Pressure Pulse Oximetry Oxygen Delivery Oxygen Flow Rate 05/06/24 22:15 05/06/24 23:54 05/07/24 00:00 Temperature 98.6 F Pulse Rate 92 92 Respiratory Rate 20 Blood Pressure 101/64 Pulse Oximetry 95 96 96 Oxygen Delivery BiPAP High Flow Therapy with Na Oxygen Flow Rate 3 05/07/24 00:00 05/07/24 02:00 05/07/24 04:00 Temperature 97.9 F Pulse Rate 83 84 91 Respiratory Rate 20 Blood Pressure 104/72 Pulse Oximetry 94 Oxygen Delivery Oxygen Flow Rate 05/07/24 04:00 05/07/24 04:00 05/07/24 06:00 Temperature Pulse Rate 93 80 Respiratory Rate Blood Pressure Pulse Oximetry 94 Oxygen Delivery High Flow Therapy with Na Oxygen Flow Rate 3 05/07/24 07:52 05/07/24 08:22 05/07/24 08:41 Temperature 97.5 F L Pulse Rate 88 92 Respiratory Rate 18 Blood Pressure 112/65 Pulse Oximetry 95 Oxygen Delivery Nasal Cannula Oxygen Flow Rate 3 05/07/24 08:47 05/07/24 08:50 05/07/24 08:50 Temperature Pulse Rate 98 Respiratory Rate Blood Pressure Pulse Oximetry 95 96 Oxygen Delivery Nasal Cannula Nasal Cannula Oxygen Flow Rate 3 3 05/07/24 10:00 05/07/24 11:56 05/07/24 12:30 Temperature 98.3 F Pulse Rate 94 88 Respiratory Rate 18 Blood Pressure 95/53 L Pulse Oximetry 96 96 Oxygen Delivery Nasal Cannula Oxygen Flow Rate 3 05/07/24 12:30 05/07/24 14:00 05/07/24 14:00 Temperature Pulse Rate 90 92 Respiratory Rate Blood Pressure Pulse Oximetry 86 L Oxygen Delivery Room Air Oxygen Flow Rate 05/07/24 14:01 05/07/24 14:02 05/07/24 14:03 Temperature Pulse Rate Respiratory Rate Blood Pressure Pulse Oximetry 87 L 93 Oxygen Delivery Nasal Cannula Nasal Cannula Nasal Cannula Oxygen Flow Rate 1 2 3 05/07/24 14:05 05/07/24 14:15 05/07/24 16:00 Temperature 97.7 F Pulse Rate 92 Respiratory Rate 18 Blood Pressure 97/65 L Pulse Oximetry 92 94 96 Oxygen Delivery Nasal Cannula Nasal Cannula Oxygen Flow Rate 3 3 Intake/Output Intake/Output: Intake & Output 05/04/24 05/05/24 05/06/24 05/07/24 23:59 23:59 23:59 23:59 Intake Total 1280 1160 1215 480 Output Total 5225 1600 3100 350 Balance -3945 -440 -1885 130 Meds/Results Medications: Active Medications Generic Name Dose Route Start Last Admin Trade Name Freq PRN Reason Stop Dose Admin Acetaminophen 650 mg 04/30/24 16:00 Acetaminophen 325 Mg Tablet PO Q4H PRN Mild Pain (1-3) or Fever Amiodarone HCl 200 mg 05/01/24 22:00 05/06/24 21:08 Amiodarone Hcl 200 Mg Tablet PO 200 mg Q24H MIGUEL Administration Apixaban 2.5 mg 05/05/24 21:00 05/07/24 08:23 Apixaban 2.5 Mg Tablet PO 2.5 mg Q12HR MIGUEL Administration Atorvastatin Calcium 40 mg 05/01/24 09:00 05/07/24 08:23 Atorvastatin 40 Mg Tablet PO 40 mg DAILY MIGUEL Administration Buspirone HCl 5 mg 05/01/24 09:00 05/07/24 16:44 Buspirone Hcl 5 Mg Tablet PO 5 mg BID MIGUEL Administration Fluticasone/Umeclidinium/Vilanterol 1 puff 05/01/24 08:00 05/07/24 08:47 Fluticasone/Umeclidin/Vilanter 100-62.5-25 Mcg Ellipta INHALATION 1 puff DAILYRT MIGUEL Administration Furosemide 20 mg 05/06/24 17:45 05/07/24 16:44 Furosemide Inj 40 Mg/4 Ml Vial IV PUSH 20 mg BID MIGUEL Administration Levothyroxine Sodium 75 mcg 05/01/24 06:30 05/07/24 05:32 Levothyroxine Sodium 75 Mcg Tablet PO 75 mcg DAILY@0630 MIGUEL Administration Lidocaine 1 patch 05/04/24 13:04 Lidocaine 5% Patch TRANSDERM DAILY PRN Pain Loratadine 10 mg 05/01/24 09:00 05/07/24 08:22 Loratadine 10 Mg Tablet PO 10 mg DAILY MIGUEL Administration Magnesium Oxide 400 mg 05/01/24 09:00 05/07/24 08:23 Magnesium Oxide 400 Mg Tablet PO 400 mg QAM MIGUEL Administration Melatonin 5 mg 05/01/24 21:00 05/06/24 21:08 Melatonin 5 Mg Tablet PO 5 mg HS MIGUEL Administration Metoprolol Tartrate 50 mg 05/02/24 21:00 05/07/24 08:22 Metoprolol Tartrate 50 Mg Tab PO 50 mg Q12HR MIGUEL Administration Pantoprazole Sodium 40 mg 05/01/24 09:00 05/07/24 08:23 Pantoprazole 40 Mg Tablet PO 40 mg QAM MIGUEL Administration Potassium Chloride 40 meq 05/04/24 17:00 05/07/24 16:44 Potassium Chloride 20 Meq Er Tablet PO 40 meq BID MIGUEL Administration Senna/Docusate Sodium 2 tab 05/01/24 00:06 Senna/Docusate Sodium Tablet PO BID PRN Constipation Radiology Results: ITS Impressions Thoracentesis Ultrasound 05/04/24 10:09 IMPRESSION: 1. Successful ultrasound-guided thoracentesis yielding 700 mL of kvuuzml-[id number]-ipkhcva fluid. Chest X-Ray 05/06/24 13:59 Impression: Small bilateral pleural effusions with probable bibasilar pulmonary edema/atelectasis. Correlate clinically for pneumonia. Labs Labs: Laboratory Results - last 24 hr 05/07/24 04:34 WBC 7.6 RBC 4.23 Hgb 12.3 Hct 38.7 MCV 91.5 MCH 29.1 MCHC 31.8 L RDW 15.1 H Plt Count 280 MPV 10.5 H Sodium 134 L Potassium 4.0 Chloride 93 L Carbon Dioxide 35 H Anion Gap 6 BUN 24 H Creatinine 0.78 Estim Creat Clear Calc 46 Estimated GFR > 60 Glucose 100 Lactic Acid 0.9 Calcium 8.1 L Magnesium 1.7 Total Bilirubin 0.6 AST 18 ALT 16 Alkaline Phosphatase 99 Total Protein 6.0 L Albumin 3.1 L Quality VTE Prophylaxis VTE prophylaxis: mechanical ordered (SCDs)
[2024-05-07] MEDS: MELATONIN 5 MG TABLET PO (21:41)
[2024-05-07] MEDS: AMIODARONE HCL 200 MG TABLET PO (21:41)
[2024-05-07] MEDS: WATER FOR IRRIGATION, STERILE 1,000 ML BOTTLE 1000 ML (21:59)
[2024-05-08] VITALS (12 sets, daily range): BP systolic 99–112; BP diastolic 62–84; PULSE 73–96; RESP 20; TEMP 36.4–36.5; O2SAT 94–100
[2024-05-08] MEDS: LEVOTHYROXINE SODIUM 75 MCG TABLET PO (06:07)
[2024-05-08] MEDS: FLUTICASONE/UMECLIDIN/VILANTER 100-62.5-25 MCG ELLIPTA 1 PUFF INHALATION (08:13)
[2024-05-08] MEDS: METOPROLOL TARTRATE 50 MG TAB PO (09:06)
[2024-05-08] MEDS: APIXABAN 2.5 MG TABLET PO (09:06)
[2024-05-08] MEDS: PANTOPRAZOLE 40 MG TABLET PO (09:06)
[2024-05-08] MEDS: ATORVASTATIN 40 MG TABLET PO (09:06)
[2024-05-08] MEDS: MAGNESIUM OXIDE 400 MG TABLET PO (09:06)
[2024-05-08] MEDS: LORATADINE 10 MG TABLET PO (09:07)
[2024-05-08] MEDS: FUROSEMIDE INJ 40 MG/4 ML VIAL 20 MG IV PUSH (09:07)
[2024-05-08] MEDS: busPIRone HCL 5 MG TABLET PO (09:07)
[2024-05-08] MEDS: POTASSIUM CHLORIDE 20 MEQ ER TABLET 40 MEQ PO (09:08)
--- NOTE | 2024-05-08 14:03 | PM.DS ---
DS: Admitting Diagnosis Discharge Date 05/08/24 Admitting Diagnosis Increased shortness of breath DS: Discharge Diagnosis Discharge Diagnosis (1) CHF (congestive heart failure): Qualifiers: Heart failure type: unspecified Heart failure chronicity: unspecified Qualified Code(s): I50.9 - Heart failure, unspecified Code(s): I50.9 - Heart failure, unspecified Status: Acute DS: Summary Hospital Course Hospital Course: 88-year-old female with a past medical history of chronic atrial fibrillation on chronic anticoagulation with Eliquis, chronic hypoxic respiratory failure, CHF with preserved ejection fraction, mild pulmonary hypertension, recent hospitalization for traumatic right-sided pneumothorax and COVID who presented to the ER from [facility] due to shortness of breath. The patient was coming in for a cardiology appointment from [facility] re[facility] and followed up with a outpatient chest x-ray but stopped by the [facility] office due to her degree of shortness of breath. She was directed to come to the ER for evaluation. Her oxygen saturations on room air were 80% but she is usually on 3 L nasal cannula at home. In the ER she was on 4 L nasal cannula satting 93%. She is noted to be in AFib with RVR placed on a Cardizem drip in ER. Chest x-ray demonstrated bilateral large pleural effusions right greater than left. The patient states that she has been having increased shortness of breath for the last 24 hours and has had increased orthopnea for couple of days. She denies any chest pain or palpitations. She has noticed increased lower extremity swelling but denies any increased abdominal swelling. She reports a very low urine output compared to her baseline. She has not noticed any wheezing or increased cough. Patient was started on IV lasix, was initially on bIPAP eventually weaned down to baseline oxygen which is 3-4 liters nasal canula oxygen. discharged on Lasix po 40mg bid, from her home dosing of 40mg daily. Afib RVR, controlled on Amiodarone and Metoprolol cardiology was involved in her care. Pulmonology was involved and patient underwent rightsided thoracentesis. F/u with PCP in 3-5 days F/u with Cardiology and pulmonology as instructed Time Spent with Patient Time attestation: Total time spent providing and/or coordinating discharge services: DS: Data Data Completed and Pending Completed studies during hospitalization: Pending at discharge 05/02/24 10:25 Cytology [PTH] Routine Discharge Plan Discharge Attending physician on discharge: Noah Madden Consulting providers: Carlos Farooq; José Tate Discharging Clinician: Noah Madden Anticipated Discharge Date/Time: 05/08/24 13:55 Patient Disposition: Home Health Service Activity: as tolerated Diet: heart healthy Wound Care Instructions: follow printed instructions Discharge Instructions: Care Coordination: Patient to have [facility] for PT/OT eval and treat, and penitentiary. Their phone number is [phone] if you have any questions; they will contact you to schedule their first visit. Patient Language: German Stand Alone Forms: General Discharge Information Follow-up/Referrals: Paulina Houser APRN [Primary Care Provider] - (F/u with PCP in 3-5 days ) Carlos Farooq MD [Physician] - (F/u with cardiology as instructed) José Tate APRN [Advanced Practice Nurse] - (F/u with Pulm as instructed ) Discharge Medications: Continued ascorbic acid (vitamin C) 1,000 mg capsule 1 g PO DAILY calcium carbonate [Calcium 600] 600 mg calcium (1,500 mg) tablet 600 mg PO DAILY fluticasone propion-salmeterol [Wixela Inhub] 100-50 mcg/dose blister with device 1 inh inhalation Q12H Qty: 60 2RF buspirone 5 mg tablet 5 mg PO BID Qty: 60 2RF amiodarone 200 mg tablet 200 mg PO Q24H potassium chloride 20 mEq tablet extended release 20 meq PO BID sennosides-docusate sodium [Senokot-S] 8.6-50 mg Tablet 2 tab-cap PO BID PRN (Reason: Constipation) Qty: 10 0RF levalbuterol HCl 1.25 mg/3 mL Solution For Nebulization 0.63 mg inhalation Q6HRT PRN (Reason: Shortness Of Breath Or Wheezing) Qty: 90 0RF Trelegy Ellipta 100-62.5-25 mcg Blister With Device 1 inh inhalation DAILYRT Qty: 1 0RF lidocaine [Lidoderm] 5 % Adhesive Patch,Medicated 1 patch transdermal DAILY Qty: 15 0RF loratadine [Allergy Relief (loratadine)] 10 mg tablet 10 mg PO DAILY Qty: 30 0RF magnesium oxide 400 mg (241.3 mg magnesium) Tablet 400 mg PO QAM Qty: 30 0RF pantoprazole 40 mg Tablet,Delayed Release (Dr/Ec) 40 mg PO QAM Qty: 30 0RF melatonin 5 mg Tablet 5 mg PO HS Qty: 30 0RF Eliquis 2.5 mg tablet 2.5 mg PO BID Qty: 60 0RF atorvastatin 40 mg Tablet 40 mg PO DAILY Qty: 30 0RF metoprolol succinate 50 mg Tablet Extended Release 24 Hr 50 mg PO QAM Qty: 30 0RF Dupixent Syringe 300 mg/2 mL syringe 300 mg SUB-Q .biweekly levothyroxine 75 mcg tablet See Rx Instructions .ROUTE .COMPLEX Qty: 90 0RF Dose Instruction: TAKE 1 TABLET BY MOUTH DAILY Rx Instructions: TAKE 1 TABLET BY MOUTH DAILY Changed furosemide 40 mg Tablet 40 mg PO BID 30 Days Qty: 60 0RF Discontinued amlodipine 5 mg tablet See Rx Instructions .ROUTE .COMPLEX Qty: 90 0RF Dose Instruction: TAKE 1 TABLET BY MOUTH DAILY Rx Instructions: TAKE 1 TABLET BY MOUTH DAILY Date of admission: 04/30/24 16:00 Primary Care Provider: Paulina Houser Admitting Provider: Tara Amador Attending physician on admission: Tara Amador Condition: Guarded Prognosis
--- OUTSIDE RECORDS SUMMARY | 2024-05-11 14:27 | XMS_ITS | Clinical Summary ---
Author Organization [facility] Address [facility] [place] [address] Care Team Providers Care Rug Weaver Name Role Phone Roman Mancia Primary Care Provider [phone] Allergies No known active allergies Medications aspirin [...] TIMES DAILY NEEDED FOR DIZZINESS 1 Active Markle 3 1200 MG Cap Take 2 tablets [...] on file Legal Sex Female 9:14 AM 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 Gender Identity Not on file Sexual Orientation Not on file Last Filed Vital Signs Vital Sign Reading Time Taken Comments Blood Pressure 168/86 04/21/2021 9:26 AM 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 Pulse 75 04/21/2021 9:26 AM 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 Temperature 36.9 C (98.4 F) 04/21/2021 9:26 AM [employer]LECT[employer]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 Respiratory Rate 16 04/21/2021 9:26 AM [employer]LECT[employer]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 Oxygen Saturation 92% 04/21/2021 9:26 AM [employer]LECT[employer]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 Inhaled Oxygen Concentration - - Weight 89.8 kg (198 lb) 04/21/2021 9:26 AM [employer]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 Height 160 cm (5' 3 ) 04/21/2021 9:26 AM [employer]LECT[employer]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 Body Mass Index 35.07 04/21/2021 9:26 AM 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 Plan of Treatment Upcoming Encounters Date Type Department Care Team (Late st Contact Info) Description 07/17/2024 1:30 PM CDT [facility] [address] [place] [id number] Chay Self MD [address] [address] Health Maintenance Due Date Last Done Comments [...] patient's age to complete this topic Insurance [facility] Care Teams Rug Weaver Relationship Specialty Start Date End Date Romna Mancia DO [address] [address] PCP - General INTERNAL MEDICINE 02/21/21
--- OUTSIDE RECORDS SUMMARY | 2024-05-11 14:27 | XMS_ITS | Encounter Summary ---
Author Organization [facility] Healthcare Address [address] [place] [address] Care Team Providers Care Tea Bag Machine Tender Name Role Phone Oscar Carroll MD Unavailable + Oleg Marrero MD Unavailable [phone] Paulina Houser NP Primary Care Provider Encounter Details Date Type Department Care Team (Late st Contact Info) Description 05/07/2024 Orders Only [facility] Cardiology [address] [place] [address] Caridad Self MD [address] [place] [address] Social History Tobacco Use Types Packs/Day Years [...] on file Legal Sex Female 12:02 PM FINAL INSPECTOR SHUTTLE Gender Identity Female 10/28/2019 5:35 PM CDT Sexual Orientation Straight 10/28/2019 5: 35 PM CDT documented as of this encounter Plan of Treatment Not on file documented as of this encounter Procedures Procedure Name Priority Date/Time Associated Diagnosis Comments CARDIOLOGY DOCUMENT SCAN Routine 05/02/2024 4:34 PM CDT CARDIOLOGY DOCUMENT SCAN Routine 05/01/2024 4:32 PM CDT documented in this encounter Results * Cardiology Document Scan (05/02/2024 4:34 PM CDT) Anatomical Region Laterality Modality Other us Blake Iraheta MD CV CARDIAC SERVICES PROCEDURES F inal Result * Cardiology Document Scan (05/01/2024 4:32 PM CDT) Anatomical Region Laterality Modality Other us Caridad Self MD CV CARDIAC SERVICES PRO CEDURES Final Result documented in this encounter Visit Diagnoses Not on filedocumented in this encounter Care Teams Tea Bag Machine Tender Relationship Specialty Start Date End Date Paulina Houser NP [address] [place] [address] PCP - General Family Medicine 03/05/24 Oscar Carroll MD [address] [place] [address] Digital Archivist Gastroenterology 09/03/19 Oleg Marrero MD [address] [place] [address] Surgeon Colon and Rectal Surgery 10/13/19 documented as of this encounter
--- OUTSIDE RECORDS SUMMARY | 2024-05-11 14:27 | XMS_ITS | Clinical Summary ---
Author Organization [facility] Address [address] [facility] [place] [address] Care Team Providers Care Esthetician And Manager Medical Spa Name Role Phone Brandon Roberts MD Primary Care Provider [phone] Source Comments [facility],non-owned Affiliates and Associated Physician Practices is amultiple site organization consisting of ambulatory clinics and hospital sitesin [place], [place], [place] and [place]. This disclosure is being madepursuant to the Care Everywhere program and may not contain all information available regarding this patient. Last updated 17.[facility] Allergies No known active allergies Medications * [...] age to complete this topic Care Teams Esthetician And Manager Medical Spa Relationship Specialty Start Date End Date Brandon Roberts MD [address] [place] [address] PCP - General 11/12/08
--- OUTSIDE RECORDS SUMMARY | 2024-05-11 14:28 | XMS_ITS | Clinical Summary ---
Author Organization [facility] Address [address] [place] [address] Care Team Providers Care Wardrobe Manager Name Role Phone Oscar Carroll MD Unavailable + Oleg Marrero MD Unavailable [phone] Paulina Houser NP Primary Care Provider [phone] Allergies No known active allergies Medications amLODIPine [...] 1 tablet (75 mcg total) by mouth urgent care physician assistant before breakfast 0 11/29/19 18 Active dupilumab [...] (07/20/2020): Added automatically from request for surgery [id number] History of colon cancer 10/29/2019 Clostridium difficile infection 10/07/2019 Acute postoperative abdominal pain 09/23/2019 Malignant neoplasm of hepatic flexure 09/09/2019 Overview (09/09/2019): Added automatically from request for surgery [id number] Malignant neoplasm of transverse colon 0 Other atopic dermatitis 02/26/2018 Pruritus, unspecified 02/26/2018 Venous barkley of lip 02/26/2018 Encounters Date Type Department Care Team Description 05/07/2024 Orders Only [facility] Cardiology [address] [place] [phone] Caridad Self MD 04/30/2024 11:35 AM CDT Ancillary Procedure [place] [address] [place] [phone] 04/30/2024 11:00 AM CDT Office Visit [address] [address] Caridad Self MD Persistent atrial fibrillation (HCC) (Primary Dx); Chronic anticoagulation; Primary hypertension; Mixed hyperlipidemia 04/30/2024 Orders Only [facility] Health Information Management [address] [place] [address] Caridad Self MD 03/27/2024 Telephone [place] [address] [place] [phone] Tequila Garza NP punctured lung; broken rib; warfarin therapy 03/26/2024 10:30 AM BLOOD BANK CALENDAR CONTROL CLERK Office Visit [address] [phone] Tequila Garza NP Persistent atrial fibrillation (HCC) (Primary Dx); Encounter for anticoagulation discussion and counseling; On amiodarone therapy; MARC (obstructive sleep apnea); Chronic obstructive pulmonary disease, unspecified COPD type (HCC); Edema, lower extremity 03/26/2024 Anticoagulation Visit [address] [address] Teresa Snowden RN Atrial fibrillation, unspecified type (HCC) (Primary Dx) 03/26/2024 Telephone [place] [address] [place] [phone] Tequila Garza NP 03/11/2024 Telephone [place] [address] [place] [phone] Caridad Self MD Med Refill 03/05/2024 10:00 AM BLOOD BANK CALENDAR CONTROL CLERK Office Visit [facility] [address] [place] [address] [place] [phone] Tequila Garza NP Persistent atrial fibrillation with rapid ventricular response (HCC) (Primary Dx); Chronic anticoagulation; History of cardioversion; MARC (obstructive sleep apnea); Chronic obstructive pulmonary disease, unspecified COPD type (HCC); Hospital discharge follow-up 03/05/2024 Orders Only [place] [address] [place] [phone] Tequila Garza NP Persistent atrial fibrillation with rapid ventricular response (HCC) 02/20/2024 Telephone [place] [address] [place] [phone] Tequila Garza NP Medication Problem 02/20/2024 Orders Only [place] [address] [place] [phone] Teresa Tadeo MA 02/20/[address] [phone] Tequila Garza NP Med Refill 02/18/2024 Orders Only [place] [address] [place] [phone] Oxana Fragoso NP from Last 3 Months Immunizations Immunization Administration Dates Next Due Pneumococcal Conjugate PCV 13 12/02/2017 Surgical History Surgery Date Site/Laterality Comments DE LIGJ DIVJ &/EXCJ VARICOSE VEIN CLUSTER 1 LEG Varicose Vein Ligation - (Added by Conv) DE TONSILLECTOMY PRIMARY/SECONDARY <AGE 14 Tonsillectomy - (Added [...] on file Legal Sex Female 12:02 PM BLOOD BANK CALENDAR CONTROL CLERK Gender Identity Female 10/28/2019 5:35 PM [...] Fall Risk Assessment 10/19/2023 10/18/2022 Covid-19 Vaccine (6 - 2023-2 5 season) 2023 12/08/2021, 06/17/2021, 12/23/2020, Additional history exists DTaP/Tdap/Td Vaccine (3 - Td or Tdap) 03/27/2034 03/27/2024, 11/17/2022 Influenza Vaccine Completed 11/07/2023, , 12/08/2021, Additional history exists Procedures Procedure Name Priority Date/Time Associated Diagnosis Comments CARDIOLOGY DOCUMENT SCAN Routine 025 4:34 PM CDT CARDIOLOGY DOCUMENT SCAN Routine 025 4:32 PM CDT ELECTROCARDIOGRAM REPORT Routine 025 11:28 AM CDT Persistent atrial fibrillation (HCC) SCAN - RADIOLOGY/IMAGING 04/30/2024 ECG 12-LEAD Routine 03/26/2024 4:15 PM BLOOD BANK CALENDAR CONTROL CLERK ECG 12-LEAD Routine 03/05/2024 Persistent atrial fibrillation with rapid ventricular response (HCC) from Last 3 Months Results * Cardiology Document Scan (05/02/2024 4:34 PM CDT) Anatomical Region Laterality Modality Other Blake Iraheta MD CV CARDIAC SERVICES PROCEDURES F inal Result * Cardiology Document Scan (05/01/2024 4:32 PM CDT) Anatomical Region Laterality Modality Other Caridad Self MD CV CARDIAC SERVICES PRO CEDURES Final Result * Electrocardiogram Report (04/30/2024 11:28 AM CDT) Caridad Self MD ECG ORDERABLES Final R esult * SCAN - RADIOLOGY/IMAGING (04/30/2024) Anatomical Region Laterality Modality Other Caridad Self MD Final R esult * ECG 12 lead (03/26/2024 4:15 PM BLOOD BANK CALENDAR CONTROL CLERK) Tequila Garza LOCKSTITCH BACK MAKER ECG ORDERABLES Final Res ult * ECG 12 lead (03/05/2024) 03/05/2024 Tequila Garza LOCKSTITCH BACK MAKER ECG ORDERABLES Edited Re sult - Final from Last 3 Months Insurance [id number] MEDICARE AD[facility]ANTAGE [facility] MEDIC[facility] Address: [facility] [address] [place] [address] [facility] MEDICARE Address: [facility] [address] [place] [address] Advance Directives For more information, please contact: [phone] * Full Code (Latest Code Status on [...] Manzo Daughter Health Care Agent Care Teams Wardrobe Manager Relationship Specialty Start Date End Date Paulina Houser NP [address] [place] [address] PCP - General Family Medicine 03/05/24 Oscar Carroll MD [address] [place] [address] Material Handler 2Nd Shift Gastroenterology 09/03/19 Oleg Marrero MD [address] [place] [address] Surgeon Colon and Rectal Surgery 10/13/19
--- OUTSIDE RECORDS SUMMARY | 2024-05-11 14:28 | XMS_ITS | Continuity of Care Document ---
Author Organization [facility] Address [address] [place] [address] [address] [place] [address] Phone Care Team Providers Care Labor Economics Professor Name Role Phone Neelima London Unavailable Unavailable Procedures Procedure Date Eye Exam & Treatment Refraction Office/outpatient Visit, Est No Script Eye Exam Established Pt No Script Eye Exam Established Pt Advance Directives Directive Yes / No Effective Date File Name No Information Encounters Encounter Description Practice Location Reason(s) For Visit Diagnoses Date Provider Providers Copied on Encounter [facility], [address] [place] [address] [address], [place], [place], [id number], [place] tel:[phone] [facility] No Information 2-201 0 Lita Ortez. [address] [facility] [place] , [address], [place], [place], [facility], . tel:[phone] Office/outpat ient Visit, Est [facility], [address] [place] [address] [address], [place], [place], [id number], [place] tel:[phone] [facility] No Information Sep-0 9-200 9 Ev Barrow. [address] [facility] [address], [place], [place], [facility], . tel:[phone] [facility], [address] [place] [address] [address], [place], [place], [id number], [place] tel:[phone] [facility] No Information Sep-0 2-200 9 Ev Barrow. [address] [facility] [address], [place], [address], [place]. tel:[phone] [facility] Eye [facility], [address], [place], [place], [id number], [place] tel:[phone] [facility] [place] No Information 8 Smita Chopra. [address] [facility] [address], [place], [address], [place]. tel:[phone] Family History Family Member Type Diagnosis Age At Onset No Information Payers Payer name Insurance type Covered libertarian ID Natachamaxine lornaobinna(s) [employer] Vision Plan CI [id number] Social History Type Description Quantity Date Captured [...]
--- OUTSIDE RECORDS SUMMARY | 2024-05-11 14:28 | XMS_ITS ---
Author Organization [facility] Address [address] [place] [address] Care Team Providers Care Maintenance Painter Name Role Phone Oscar Carroll MD Unavailable + Oleg Marrero MD Unavailable [phone] Paulina Houser NP Primary Care Provider [phone] Active Problems Problem Noted Date Diagnosed Date Chronic anticoagulation 04/30/2024 Primary hypertension 04/30/2024 Mixed hyperlipidemia 04/30/2024 Atrial fibrillation 03/26/2024 Screening for malignant neoplasm of colon 2020 Overview (07/20/2020): Added automatically from request for surgery [id number] History of colon cancer 10/29/2019 Clostridium difficile infection 10/07/2019 Acute postoperative abdominal pain 09/23/2019 Malignant neoplasm of hepatic flexure 09/09/2019 Overview (09/09/2019): Added automatically from request for surgery [id number] Malignant neoplasm of transverse colon 0 Other [...] from the original note were not included. [facility] [address] [place] [address] This Survivorship Care Plan is a cancer [...] Information: Primary Care Physician Roman Mancia DO [phone] Surgeon Oleg Marrero MD Radiation Oncologist Medical Oncologist Tray Delivery Aide Oscar Bill MD Treatment Summary Cancer Diagnosis [...] valrubicin, doxorub icin isotoxic equivalent Research Studies [facility] (DDRCC) [...] Medical oncology and Surgeon if both are [facility] Physicians) History and Physical every 3 months [...] Help learning to eat healthier, call the waste disposal attendant at: [facility] . Have an active lifestyle, strive [...] physician. Resources you may be interested in: [facility] Cancer [place] A National Cancer [place] [facility] http://www.[facility]/ [facility] 1st floor of [facility] [phone]. Computer access, educational material, counseling services (FREE) United Ostomy Association: the place for ostomy resources, advocacy, and support. www.ostomy.org The ostomy nurse at [facility] can be reached at [phone] Online Resources: www.cancer.net; http://www.cdc.gov/cancer/survivorship; http://www.cancercare.org/tagged/post-treatment_survivorship; http://www.cancer.gov/about-cancer/coping/survivorship [employer] Cancer: https://survivorship.cancer.gov/ an online tool for cancer survivors andcaregivers created by the [place] [employer] and the National Cancer [place]. It provides: Information on dealing with side effects from cancer and treatment Caregivers with support and resources Practical advice about talking to friends and family about cancer Questions to ask their health care team Help understanding their rights in the workplace
--- OUTSIDE RECORDS SUMMARY | 2024-05-11 14:28 | XMS_ITS | Referral Summary ---
Author Organization [facility] Address [address] [place] [address] Care Team Providers Care Cdl Team Truck Driver Name Role Phone Oscar Carroll MD Unavailable + Oleg Marrero MD Unavailable [phone] Paulina Houser NP Primary Care Provider [phone] Encounters Date Type Department Care Team Description 05/07/2024 Orders Only [facility] Cardiology [address] [facility] [address] [place] [phone] Caridad Self MD 04/30/2024 Orders Only [facility] Health Information Management [address] [place] [address] Caridad Self MD 04/30/2024 11:35 AM CDT Ancillary Procedure [facility] Cardiology [address] [place] [address] 04/30/2024 11:00 AM CDT Office Visit [facility] Cardiology [address] [place] [address] Caridad Self MD Persistent atrial fibrillation (HCC) (Primary Dx); Chronic anticoagulation; Primary hypertension; Mixed hyperlipidemia 03/27/2024 Telephone [place] [address] [place] [phone] Tequila Garza NP punctured lung; broken rib; warfarin therapy 03/26/2024 Anticoagulation Visit [place] [address] [place] [phone] Teresa Snowden RN Atrial fibrillation, unspecified type (HCC) (Primary Dx) 03/26/2024 Telephone [place] [address] [place] [phone] Tequila Garza NP 03/26/2024 10:30 AM EMBROIDERY PATTERNMAKER Office Visit [place] [address] [place] [phone] Tequila Garza NP Persistent atrial fibrillation (HCC) (Primary Dx); Encounter for anticoagulation discussion and counseling; On amiodarone therapy; MARC (obstructive sleep apnea); Chronic obstructive pulmonary disease, unspecified COPD type (HCC); Edema, lower extremity 03/11/2024 Telephone [place] [address] [place] [phone] Caridad Self MD Med Refill 03/05/2024 Orders Only [place] [address] [place] [phone] Tequila Garza NP Persistent atrial fibrillation with rapid ventricular response (HCC) 03/05/2024 10:00 AM EMBROIDERY PATTERNMAKER Office Visit [place] [address] [place] [phone] Tequila Garza NP Persistent atrial fibrillation with rapid ventricular response (HCC) (Primary Dx); Chronic anticoagulation; History of cardioversion; MARC (obstructive sleep apnea); Chronic obstructive pulmonary disease, unspecified COPD type (HCC); Hospital discharge follow-up 02/20/2024 Telephone [place] [address] [place] [phone] Tequila Garza NP Medication Problem 02/20/2024 Orders Only [facility] Cardiology [address] [place] [address] Teresa Tadeo MA 02/20/2024 Telephone [facility] Cardiology [address] [place] [address] Tequila Garza NP Med Refill 02/18/2024 Orders Only [facility] Cardiology [address] [place] [address] [address] [place] [phone] Oxana Fragoso NP from Last 3 [...] 1 tablet (75 mcg total) by mouth weaver dobby loom before breakfast 0 11/29/19 18 Active dupilumab [...] by mouth 2 (two) times a day 01/13/20 25 Active Wixela Inhub 100-50 mcg/dose diskus inhaler INHALE 1 PUFF BY MOUTH EVERY 12 HOURS 01/20/20 Active potassium chloride ER 20 mEq CR tablet Take 2 tablets (40 mEq total) by mouth daily 60 tablet 4 03/12/19 Active Additional Information Patient taking differently: 20 mEqoral Daily, Reported on 04/30/2024 atorvastatin (LIPITOR) 40 mg tablet TAKE 1 TABLET(40 MG) BY MOUTH DAILY 90 tablet 03/19/19 Active metoprolol XL (TOPROL-XL) 50 mg extended release tablet TAKE 1 TABLET(50 MG) BY MOUTH DAILY 90 tablet 3 03/19/19 Active furosemide (LASIX) 40 mg tablet TAKE [...] (07/20/2020): Added automatically from request for surgery [id number] History of colon cancer 10/29/2019 Clostridium difficile infection 10/07/2019 Acute postoperative abdominal pain 09/23/2019 Malignant neoplasm of hepatic flexure 09/09/2019 Overview (09/09/2019): Added automatically from request for surgery [id number] Malignant neoplasm of transverse colon 0 Other [...] on file Legal Sex Female 12:02 PM EMBROIDERY PATTERNMAKER Gender Identity Female 10/28/2019 5:35 PM CDT [...] Associated Diagnosis Comments CARDIOLOGY DOCUMENT SCAN Routine 4:34 PM CDT CARDIOLOGY DOCUMENT SCAN Routine 025 4:32 PM CDT ELECTROCARDIOGRAM REPORT Routine 11:28 AM CDT Persistent atrial fibrillation (HCC) SCAN - RADIOLOGY/IMAGING 04/30/2024 ECG 12-LEAD Routine 03/26/2024 4:15 PM EMBROIDERY PATTERNMAKER ECG 12-LEAD Routine 03/05/2024 Persistent atrial fibrillation [...] * ECG 12 lead (03/26/2024 4:15 PM EMBROIDERY PATTERNMAKER) Tequila Garza NP ECG ORDERABLES Final Res ult * ECG 12 lead (03/05/2024) 03/05/2024 Tequila Garza NP ECG ORDERABLES Edited Re sult - Final from Last 3 Months Insurance UHC MEDICARE ADVANTAGE [facility] MED[facility] Address: [facility] [address] [place] [address] [facility] MEDICARE ADVANTAGE Advance Directives For more information, please contact: [phone] * Full Code (Latest Code Status on [...] Manzo Daughter Health Care Agent Care Teams Cdl Team Truck Driver Relationship Specialty Start Date End Date Paulina Houser NP [address] [place] [address] PCP - General Family Medicine 03/05/24 Oscar Carroll MD [address] [place] [address] Install Technician Gastroenterology 09/03/19 Oleg Marrero MD [address] [place] [address] Surgeon Colon and Rectal Surgery 10/13/19
--- OUTSIDE RECORDS SUMMARY | 2024-05-11 14:28 | XMS_ITS | Encounter Summary ---
Author Organization [facility] Address [address] [facility] [facility] [place] [address] Care Team Providers Care Junior Business Analyst Name Role Phone Brandon Roberts MD Primary Care Provider Encounter Details Date Type Department Care Team (Late st Contact Info) Description 07/03/2022 Lab Requisition [facility] - DermPath Lab [address] [facility], [place] [address] Chikis Mendoza MD [address] [facility] [address] [place] [address] Social History Tobacco Use Types Packs/Day Years [...] AM CDT) Case Report Dermatopathology Report Case: [id number] Authorizing Provider: Chikis Mendoza MD Collected: 07/03/2022 11:35 AM Ordering Location: [facility] Lab Received: 07/03/2022 04:44 PM [...] of a non-oriented ellipse of skin measuring [id number] mm. The epidermal surface is unremarkable. The [...] characteristic determined by the Dermatopathology Laboratory at [facility], directed by Dr. Leslye Thomas. These tests need not be, and therefore are not, approved by the [place] Food and Drug Administration. The tests are used for clinical purposes. Billing Codes Specimen Charges Stain Charges 56653 1 12:54 PM CDT DERMATOPATHOLOGY LABORATORY Embedded Images 12:54 PM CDT DERMATOPATHOLOGY LABORATORY Pathology/Cytolo gy TISSUE SPECIMEN FROM SKIN / Unknown 07/03/2022 11:35 AM CDT 07/03/2022 4:44 PM CDT Chikis Mendoza MD LAB - PATHOLOGY/CYTO LOGY ORDERABLES DERMATOPATHOLOGY LABORATORY [facility] - Department of Dermatology [address], [address] [phone] documented in this encounter Visit Diagnoses Not on filedocumented in this encounter Care Teams Junior Business Analyst Relationship Specialty [place] [address] [place] [phone] PCP - General 11/12/08 documented as of this encounter
--- OUTSIDE RECORDS SUMMARY | 2024-05-11 14:28 | XMS_ITS | Encounter Summary ---
Author Organization [facility] Address [address] [place] [address] Care Team Providers Care Counter Molder Name Role Phone Brandon Roberts MD Primary Care Provider Encounter Details Date Type Department Care Team (Late st Contact Info) Description 08/12/2023 Lab Requisition [facility] - DermPath Lab [address] [facility], [place] [address] Chikis Mendoza MD [address] [facility] 3 [place] [address] Social History Tobacco Use Types Packs/Day Years [...] AM CDT) Case Report Dermatopathology Report Case: [id number] Authorizing Provider: Chikis Mendoza MD Collected: 08/12/2023 11:17 AM Ordering Location: [facility] - Received: 08/13/2023 [...] characteristic determined by the Dermatopathology Laboratory at [facility], directed by Dr. Leslye Thomas. These tests need not be, and therefore are not, approved by the [place] Food and Drug Administration. The tests are used for clinical purposes. Billing Codes Specimen Charges Stain Charges 39364 1 5:05 PM CDT DERMATOPATHOLOGY LABORATORY Embedded Images 5:05 PM CDT DERMATOPATHOLOGY LABORATORY Pathology/Cytolo gy TISSUE SPECIMEN FROM SKIN / Unknown 08/12/2023 11:17 AM CDT 08/13/2023 1:05 PM CDT Chikis Mendoza MD LAB - PATHOLOGY/CYTO LOGY ORDERABLES DERMATOPATHOLOGY LABORATORY [facility] - Department of Dermatology [facility] Medicine [address] [place] [address], [address] Floor [address] [phone] documented in this encounter Visit Diagnoses Not on filedocumented in this encounter Care Teams Counter Molder Relationship Specialty [place] [address] [place] [phone] PCP - General 11/12/08 documented as of this encounter
[2024-05-17 19:48] LABS: Albumin Pleural Fluid 1.7 g/dL; Amylase, Pleural Fluid 10 U/L; Glucose Pleural Fluid 98 mg/dL; LDH Pleural Fluid 152 U/L; Total Protein Pleural Fluid <3.0 g/dL
== END 2024-05-08 14:55 | disposition home health service (06) | DRG 291 ==
LOC: ANHED 15:30 → ANHIMU 05-01 10:38
PROVIDERS: Family Medicine; General Practice; Internal Medicine; Internal Medicine Cardiovascular Disease; Internal Medicine Pulmonary Disease; Nurse Practitioner Acute Care; Physician Assistant; Admitting Provider Hospitalist; Emergency Provider Emergency Medicine; PCP Nurse Practitioner Family; Visit Provider Internal Medicine
DX: I11.0 Hypertensive heart disease with heart failure (principal); I50.33 Acute on chronic diastolic (congestive) heart failure; J96.21 Acute and chronic respiratory failure with hypoxia; J90 Pleural effusion, not elsewhere classified; I48.20 Chronic atrial fibrillation, unspecified; J44.1 Chronic obstructive pulmonary disease with (acute) exacerbation; I27.20 Pulmonary hypertension, unspecified; I83.90 Asymptomatic varicose veins of unspecified lower extremity; E03.9 Hypothyroidism, unspecified; E55.9 Vitamin D deficiency, unspecified; E78.5 Hyperlipidemia, unspecified; K21.9 Gastro-esophageal reflux disease without esophagitis; M85.80 Other specified disorders of bone density and structure, unspecified site; M17.0 Bilateral primary osteoarthritis of knee; G47.33 Obstructive sleep apnea (adult) (pediatric); F41.9 Anxiety disorder, unspecified; Z20.822 Contact with and (suspected) exposure to COVID-19; Z79.01 Long term (current) use of anticoagulants; Z99.81 Dependence on supplemental oxygen; Z87.891 Personal history of nicotine dependence
CPT/HCPCS: 32555; 36415; 36600; 71045; 71046; 80048; 80053; 81003; 82042; 82150; 82805; 82945; 83605; 83615; 83735; 83880; 83986; 84155; 84157; 84484; 85018; 85025; 85027; 85610; 85730; 87637; 88108; 88305; 89051; 93005; 94002; 94003; 94618; 94640; 94762; 96374; 96375; 96376; 97110; 97161; 97165; 97530; 97535; 99285; A9270; J1940; J2270; J2405; J2919; P9047

== ENCOUNTER 2024-05-22 14:04 | Outpatient (NON) | payer MEDICARE, SELFPAY ==
--- OUTSIDE RECORDS SUMMARY | 2024-05-22 14:08 | XMS_ITS | Encounter Summary ---
Author Organization [facility] Address [address] [facility] [place] [address] Care Team Providers Care Financial Developer Name Role Phone Brandon Roberts MD Primary Care Provider Encounter Details Date Type Department Care Team (Late st Contact Info) Description 08/12/2023 Lab Requisition [facility] - DermPath Lab [address] [facility], [place] [address] Chikis Mendoza MD [address] [facility] 3 [place] [address] Social History Tobacco Use Types Packs/Day Years [...] AM CDT) Case Report Dermatopathology Report Case: [id number] Authorizing Provider: Chikis Mendoza MD Collected: 08/12/2023 11:17 AM Ordering Location: [facility] - Received: 08/13/2023 01:05 [...] purposes. Billing Codes Specimen Charges Stain Charges [id number] 1 5:05 PM CDT DERMATOPATHOLOGY LABORATORY Embedded Images 5:05 PM CDT DERMATOPATHOLOGY LABORATORY Pathology/Cytolo gy TISSUE SPECIMEN FROM SKIN / Unknown 08/12/2023 11:17 AM CDT 08/13/2023 1:05 PM CDT Chikis Mendoza MD LAB - PATHOLOGY/CYTO LOGY ORDERABLES DERMATOPATHOLOGY LABORATORY [facility] - Department of Dermatology [facility] Medicine [address] [place] [address], [address] Floor [address] [phone] documented in this encounter Visit Diagnoses Not on filedocumented in this encounter Care Teams Financial Developer Relationship Specialty [place] [address] [place] [phone] PCP - General 11/12/08 documented as of this encounter
--- OUTSIDE RECORDS SUMMARY | 2024-05-22 14:08 | XMS_ITS | Encounter Summary ---
Author Organization [facility] Address [address] [facility] [place] [address] Care Team Providers Care Railroad Car Truck Builder Name Role Phone Brandon Roberts MD Primary Care Provider [phone] Encounter Details Date Type Department Care Team (Late st Contact Info) Description 07/03/2022 Lab Requisition [facility] - DermPath Lab [address] [facility], [place] [address] Chikis Mendoza MD [address] [facility] 3 [place] [address] Social History Tobacco Use Types Packs/Day Years [...] AM CDT) Case Report Dermatopathology Report Case: [id number] Authorizing Provider: Chikis Mendoza MD Collected: 07/03/2022 11:35 AM Ordering Location: [facility] DermPath Lab Received: 07/03/2022 04:44 PM [...] of a non-oriented ellipse of skin measuring [id number] mm. The epidermal surface is unremarkable. The [...] characteristic determined by the Dermatopathology Laboratory at [facility], directed by Dr. Leslye Thomas. These tests need not be, and therefore are not, approved by the [place] Food and Drug Administration. The tests are used for clinical purposes. Billing Codes Specimen Charges Stain Charges [id number] 1 12:54 PM CDT DERMATOPATHOLOGY LABORATORY Embedded Images 12:54 PM CDT DERMATOPATHOLOGY LABORATORY Pathology/Cytolo gy TISSUE SPECIMEN FROM SKIN / Unknown 07/03/2022 11:35 AM CDT 07/03/2022 4:44 PM CDT Chikis Mendoza MD LAB - PATHOLOGY/CYTO LOGY ORDERABLES DERMATOPATHOLOGY LABORATORY [facility] - Department of Dermatology [address], [address] [phone] documented in this encounter Visit Diagnoses Not on filedocumented in this encounter Care Teams Railroad Car Truck Builder Relationship Specialty [place] [address] [place] [phone] PCP - General 11/12/08 documented as of this encounter
--- OUTSIDE RECORDS SUMMARY | 2024-05-22 14:08 | XMS_ITS | Clinical Summary ---
Author Organization [facility] Address [address] [place] [address] Care Team Providers Care Epoxy Fabrication Supervisor Name Role Phone Oscar Carroll MD Unavailable + Oleg Marrero MD Unavailable [phone] Paulina Houser NP Primary Care Provider [phone] Allergies No known active allergies Medications amLODIPine [...] 1 tablet (75 mcg total) by mouth early head start teacher before breakfast 0 11/29/19 18 Active dupilumab [...] (07/20/2020): Added automatically from request for surgery [id number] History of colon cancer 10/29/2019 Clostridium difficile infection 10/07/2019 Acute postoperative abdominal pain 09/23/2019 Malignant neoplasm of hepatic flexure 09/09/2019 Overview (09/09/2019): Added automatically from request for surgery [id number] Malignant neoplasm of transverse colon 0 Other atopic dermatitis 02/26/2018 Pruritus, unspecified 02/26/2018 Venous barkley of lip 02/26/2018 Encounters Date Type Department Care Team Description 05/18/2024 Anticoagulation Visit [facility] Cardiology [address] [place] [address] [place] [phone] Enedina Zepeda RN Atrial fibrillation, unspecified type (HCC) (Primary Dx) 05/15/2024 Anticoagulation Visit [place] [address] [place] [address] [phone] Teresa Snowden RN Atrial fibrillation, unspecified type (HCC) (Primary Dx) 05/13/2024 Anticoagulation Visit [place] [address] [place] [address] [phone] Teresa Snowden RN Atrial fibrillation, unspecified type (HCC) (Primary Dx) 05/11/2024 Telephone [place] [address] [place] [address] [phone] Caridad Self MD 05/07/2024 Orders Only [place] [address] [place] [phone] Caridad Self MD 04/30/2024 11:35 AM CDT Ancillary Procedure [place] [address] [place] [phone] 04/30/2024 11:00 AM CDT Office Visit [place] [address] [place] [address] [phone] Caridad Self MD Persistent atrial fibrillation (HCC) (Primary Dx); Chronic anticoagulation; Primary hypertension; Mixed hyperlipidemia 04/30/2024 Orders Only [facility] Health Information Management [address] [place] [phone] Caridad Self MD 03/27/2024 Telephone [place] [address] [place] [phone] Tequila Garza NP punctured lung; broken rib; warfarin therapy 03/26/2024 10:30 AM CASING WRINGER OPERATOR Office Visit [place] [address] [place] [phone] Tequila Garza NP Persistent atrial fibrillation (HCC) (Primary Dx); Encounter for anticoagulation discussion and counseling; On amiodarone therapy; MARC (obstructive sleep apnea); Chronic obstructive pulmonary disease, unspecified COPD type (HCC); Edema, lower extremity 03/26/2024 Anticoagulation Visit [facility] Cardiology [address] [facility] [address] [place] [phone] Teresa Snowden RN Atrial fibrillation, unspecified type (HCC) (Primary Dx) 03/26/2024 Telephone [facility] Cardiology [address] [place] [address] [place] [phone] Tequila Garza NP 03/11/2024 Telephone [facility] Cardiology [address] [place] [address] [place] [phone] Caridad Self MD Med Refill 03/05/2024 10:00 AM CASING WRINGER OPERATOR Office Visit [facility] Cardiology [address] [place] [address] [place] [phone] Tequila Garza NP Persistent atrial fibrillation with rapid ventricular response (HCC) (Primary Dx); Chronic anticoagulation; History of cardioversion; MARC (obstructive sleep apnea); Chronic obstructive pulmonary disease, unspecified COPD type (HCC); Hospital discharge follow-up 03/05/2024 Orders Only [facility] Cardiology [address] [place] [address] [place] [phone] Tequila Garza NP Persistent atrial fibrillation with rapid ventricular response (HCC) from Last 3 Months Immunizations Immunization Administration Dates Next Due Pneumococcal Conjugate PCV 13 12/02/2017 Surgical History Surgery Date Site/Laterality Comments CA LIGJ DIVJ &/EXCJ VARICOSE VEIN CLUSTER 1 LEG Varicose Vein Ligation - (Added by TW Conv) CA TONSILLECTOMY PRIMARY/SECONDARY <AGE 14 Tonsillectomy - (Added [...] Used Date Smoking Tobacco: Former Cigarettes 1 67.3 S tarted: 1957 Smokeless Tobacco: Never Tobacco [...] on file Legal Sex Female 12:02 PM CASING WRINGER OPERATOR Gender Identity Female 10/28/2019 5:35 PM [...] Procedure Name Priority Date/Time Associated Diagnosis Comments PROTIME-INR Routine 05/15/2024 PROTIME-INR Routine 05/15/2024 PROTIME-INR Routine 05/13/2024 CARDIOLOGY DOCUMENT SCAN Routine 025 4:34 PM CDT CARDIOLOGY DOCUMENT SCAN Routine 025 4:32 PM CDT HOLTER MONITOR 48 HR Routine 04/30/2024 11:30 AM CDT Persistent atrial fibrillation (HCC) ELECTROCARDIOGRAM REPORT Routine 025 11:28 AM CDT Persistent atrial fibrillation (HCC) SCAN - RADIOLOGY/IMAGING 04/30/2024 ECG 12-LEAD Routine 03/26/2024 4:15 PM CASING WRINGER OPERATOR ECG 12-LEAD Routine 03/05/2024 Persistent atrial fibrillation with rapid ventricular response (HCC) from Last 3 Months Results * (ABNORMAL) Protime-INR (05/15/2024) INR 2.80(A) 0.90 - 1.10 EXTERNAL LAB Blood Historical Provider MD LAB BLOOD ORDERABLES Mariam l Result Performing Organization Address City/[facility]/ZIP Co de Phone Number EXTERNAL LAB * (ABNORMAL) Protime-INR (05/15/2024) INR 2.80(A) 0.90 - 1.10 EXTERNAL LAB Blood Result [facility] Historical Provider MD LAB BLOOD ORDERABLES Edit ed Result - Final Performing Organization Address City/[facility]/ZIP Co de Phone Number EXTERNAL LAB * (ABNORMAL) Protime-INR (05/13/2024) INR 2.30(A) 0.90 - 1.10 [facility] Blood Result [facility] Historical Provider MD LAB BLOOD ORDERABLES Mariam l Result Performing Organization Address [facility] de Phone Number [id number] * Cardiology Document Scan (05/02/2024 4:34 PM CDT) Anatomical Region Laterality Modality Other Blake Iraheta MD CV CARDIAC SERVICES PROCEDURES F inal Result * Cardiology Document Scan (05/01/2024 4:32 PM CDT) Anatomical Region Laterality Modality Other Caridad Self MD CV CARDIAC SERVICES PRO CEDURES Final Result * 48 HR Holter Monitor (04/30/2024 11:30 AM CDT) Anatomical Region Laterality Modality Electrocardiogra phy Narrative 05/14/2024 12:39 PM CDT Images from the original result were not included. AMBULATORY BRIM STIFFENER REPORT Patient Name: Kanchan Abbott Date of : 1935 Requesting Physician: Caridad Self M.D. Date of Interpretation: 05/14/24 Type of Monitor: 48 Hour Monitor Date of the Study / Enrollment Period: 04/30/2024 to 05/02/2024 Indication: Persistent atrial fibrillation Quality of the Study: Average. Total analysis time of 1 day, 20 hours, and 53 minutes. Interpretation: Predominant rhythm is atrial fibrillation/atrial flutter with a burden of >99%. The average heart rate was 102 beats per minute. The minimum heart rate was 63 beats per minute. The maximum heart rate was 145 beats per minute. No evidence of pauses, heart block, or ventricular tachycardia. The PVC burden is <1%. Patient reported no symptoms during the monitoring period. Conclusions: Atrial fibrillation/atrial flutter with an average heart rate of 102 beats per minute. Caridad Self M.D., [facility] 05/14/24 Procedure Note Caridad Self MD - 05/14/2024 Images from the original note were not included. AMBULATORY BRIM STIFFENER REPORT Patient Name: Kanchan Abbott Date of : 1935 Requesting Physician: Caridad Self M.D. Date of Interpretation: 05/14/24 Type of Monitor: 48 Hour Monitor Date of the Study / Enrollment Period: 04/30/2024 to 05/02/2024 Indication: Persistent atrial fibrillation Quality of the Study: Average. Total analysis time of 1 day, 20 hours, and53 minutes. Interpretation: Predominant rhythm is atrial fibrillation/atrial flutter with a burden of>99%. The average heart rate was 102 beats per minute. The minimum heartrate was 63 beats per minute. The maximum heart rate was 145 beats perminute. No evidence of pauses, heart block, or ventricular tachycardia. The PVC burden is <1%. Patient reported no symptoms during the monitoring period. Conclusions: Atrial fibrillation/atrial flutter with an average heart rate of 102 beatsper minute. Caridad Self M.D., [facility] 05/14/24 Caridad Self MD CV CARDIAC SERVICES PRO CEDURES Final Result * Electrocardiogram Report (04/30/2024 11:28 AM CDT) Caridad Self MD ECG ORDERABLES Final R esult * SCAN - RADIOLOGY/IMAGING (04/30/2024) Anatomical Region Laterality Modality Other Caridad Self MD Final R esult * ECG 12 lead (03/26/2024 4:15 PM CASING WRINGER OPERATOR) Tequila Garza BRADLEY LINEBACKER CREWMEMBER ECG ORDERABLES Final Res ult * ECG 12 lead (03/05/2024) 03/05/2024 Tequila Garza BRADLEY LINEBACKER CREWMEMBER ECG ORDERABLES Edited Re sult - Final from Last 3 Months Insurance [facility] MEDICARE ADVANTAGE [facility] MEDICARE ADVANTAGE Advance Directives For more information, please contact: [phone] * Full Code (Latest Code Status on [...] Agents on File Name Relationship Healthcare Agent [facility] p Communication Dafne Manzo Daughter Health Care Agent Care Teams Epoxy Fabrication Supervisor Relationship Specialty Start Date End Date Paulina Houser NP [address] [place] [address] PCP - General Family Medicine 03/05/24 Oscar Carroll MD [address] [place] [address] Senior Audit Manager Gastroenterology 09/03/19 Oleg Marrero MD [address] [place] [address] Surgeon Colon and Rectal Surgery 10/13/19
--- OUTSIDE RECORDS SUMMARY | 2024-05-22 14:08 | XMS_ITS | Referral Summary ---
Author Organization [facility] Address [address] [place] [address] Care Team Providers Care Alarm Installation Technician Name Role Phone Oscar Carroll MD Unavailable + Oleg Marrero MD Unavailable [phone] Paulina Houser NP Primary Care Provider [phone] Encounters Date Type Department Care Team Description 05/18/[address] [facility] Cardiology [address] [place] [address] [address] [place] [phone] Enedina Zepeda RN Atrial fibrillation, unspecified type (HCC) (Primary Dx) 05/15/[address] [facility] Cardiology [address] [place] [address] [address] [place] [phone] Teresa Snowden RN Atrial fibrillation, unspecified type (HCC) (Primary Dx) 05/13/[address] [facility] Cardiology [address] [place] [address] [address] [place] [phone] Teresa Snowden RN Atrial fibrillation, unspecified type (HCC) (Primary Dx) 05/11/[address] [facility] Cardiology [address] [place] [address] [address] [place] [phone] Caridad Self MD 05/07/[address] [facility] Cardiology [address] [place] [address] [place] [phone] Caridad Self MD 04/30/2024 Orders Only [facility] Health Information Management [address] [place] [address] Caridad Self MD 04/30/2024 11:35 AM CDT Ancillary Procedure [place] [address] [place] [phone] 04/30/2024 11:00 AM CDT Office Visit [place] [address] [place] [phone] Caridad Self MD Persistent atrial fibrillation (HCC) (Primary Dx); Chronic anticoagulation; Primary hypertension; Mixed hyperlipidemia 03/27/2024 Telephone [place] [address] [place] [phone] Tequila Garza NP punctured lung; broken rib; warfarin therapy 03/26/2024 Anticoagulation Visit [place] [address] [place] [phone] Teresa Snowden RN Atrial fibrillation, unspecified type (HCC) (Primary Dx) 03/26/2024 Telephone [place] [address] [place] [phone] Tequila Garza NP 03/26/2024 10:30 AM MARBLE INSTALLER Office Visit [place] [address] [place] [address] [phone] Tequila Garza NP Persistent atrial fibrillation (HCC) (Primary Dx); Encounter for anticoagulation discussion and counseling; On amiodarone therapy; MARC (obstructive sleep apnea); Chronic obstructive pulmonary disease, unspecified COPD type (HCC); Edema, lower extremity 03/11/2024 Telephone [place] [address] [place] [phone] Caridad Self MD Med Refill 03/05/2024 Orders Only [facility] Medical [facility] Cardiology [address] [facility] [address] [place] [phone] Tequila Garza NP Persistent atrial fibrillation with rapid ventricular response (HCC) 03/05/2024 10:00 AM MARBLE INSTALLER Office Visit [facility] Cardiology [address] [place] [address] [address] [place] [phone] Tequila Garza NP Persistent atrial fibrillation with rapid ventricular response (HCC) (Primary Dx); Chronic anticoagulation; History of cardioversion; MARC (obstructive sleep apnea); Chronic obstructive pulmonary disease, unspecified COPD type (HCC); Hospital discharge follow-up from Last 3 Months Allergies No known [...] 1 tablet (75 mcg total) by mouth lecturer of portuguese before breakfast 0 11/29/19 18 Active dupilumab [...] inhaler Inhale 1 puff as needed 01/19/20 Active busPIRone (BUSPAR) 5 mg tablet Take 1 tablet (5 mg total) by mouth 2 (two) times a day 03/02/19 Active Wixela Inhub 100-50 mcg/dose diskus inhaler [...] MOUTH DAILY 90 tablet 3 03/19/19 Active metoprolol XL (TOPROL-XL) 50 mg extended release tablet TAKE 1 TABLET(50 MG) BY MOUTH DAILY 90 tablet 3 03/19/19 Active furosemide (LASIX) 40 mg tablet TAKE 1 TABLET(40 MG) BY MOUTH DAILY 90 tablet 3 03/19/19 Active warfarin (COUMADIN) 2 mg tabletIndications:a [...] (07/20/2020): Added automatically from request for surgery [id number] History of colon cancer 10/29/2019 Clostridium difficile infection 10/07/2019 Acute postoperative abdominal pain 09/23/2019 Malignant neoplasm of hepatic flexure 09/09/2019 Overview (09/09/2019): Added automatically from request for surgery [id number] Malignant neoplasm of transverse colon 0 Other atopic dermatitis 02/26/2018 Pruritus, unspecified 02/26/2018 Venous barkley of lip 02/26/2018 Immunizations Immunization Administration Dates Next Due Pneumococcal Conjugate PCV 13 12/02/2017 Social History Tobacco Use Types Packs/Day Years Used Date Smoking Tobacco: Former Cigarettes 1 67.3 S tarted: 8 Smokeless Tobacco: Never Tobacco [...] Frequency of Binge Drinking Not on file 08/3 02/2022 Personal Safety Answer Date Recorded Have you ever been in or are you currently in a harmful physical or emotional relationship or is someone making you feel afraid or unsafe? Denies 10/18/2022 Comments No Sex and Gender Information Value Date Recorded Sex Assigned at Not on file Legal Sex Female 12:02 PM MARBLE INSTALLER Gender Identity Female 10/28/2019 5:35 PM CDT [...] 04/30/2024 ECG 12-LEAD Routine 03/26/2024 4:15 PM MARBLE INSTALLER ECG 12-LEAD Routine 03/05/2024 Persistent atrial fibrillation with rapid ventricular response (HCC) from Last 3 Months Results * (ABNORMAL) Protime-INR (05/15/2024) INR 2.80(A) 0.90 - 1.10 EXTERNAL LAB Blood Result [facility] Historical Provider MD LAB BLOOD ORDERABLES Mariam l Result EXTERNAL LAB * (ABNORMAL) Protime-INR (05/15/2024) INR 2.80(A) 0.90 - 1.10 EXTERNAL LAB Blood Result [facility] Historical Provider MD LAB BLOOD ORDERABLES Edit ed Result - Final EXTERNAL LAB * (ABNORMAL) Protime-INR (05/13/2024) Pathologist [facility] INR 2.30(A) 0.90 - 1.10 [facility] Blood Result [facility] Historical Provider MD LAB BLOOD ORDERABLES Mariam l Result Performing Organization Address City/[facility]/ZIP Co de Phone Number [facility] * Cardiology Document [...] the original result were not included. AMBULATORY SYSTEMS SECURITY ANALYST REPORT Patient Name: Kanchan Abbott Date of [...] rate of 102 beats per minute. Caridad Slef M.D., [facility] 05/14/24 Procedure Note Caridad Self MD - 05/14/2024 Images from the original note were not included. AMBULATORY SYSTEMS SECURITY ANALYST REPORT Patient Name: Kanchan Abbott Date of [...] of 102 beatsper minute. Caridad Self M.D., [facility] 05/14/24 Caridad Self MD CV CARDIAC SERVICES PRO CEDURES Final Result * Electrocardiogram Report (04/30/2024 11:28 AM CDT) Caridad Self MD ECG ORDERABLES Final R esult * SCAN - RADIOLOGY/IMAGING (04/30/2024) Anatomical Region Laterality Modality Other Caridad Self MD Final R esult * ECG 12 lead (03/26/2024 4:15 PM MARBLE INSTALLER) Tequila Garza NP ECG ORDERABLES Final Res ult * ECG 12 lead (03/05/2024) 03/05/2024 Tequila Garza NP ECG ORDERABLES Edited Re sult - Final from Last 3 Months Insurance [facility] MEDICARE ADVANTAGE [facility] MEDICARE ADVANTAGE Advance Directives For more information, please contact: [phone] * Full Code (Latest Code Status on [...] Manzo Daughter Health Care Agent Care Teams Alarm Installation Technician Relationship Specialty Start Date End Date Paulina Houser NP [address] [place] [address] PCP - General Family Medicine 03/05/24 Oscar Carroll MD [address] [place] [address] Obstetrics Scrub Nurse Gastroenterology 09/03/19 Oleg Marrero MD [address] [place] [address] Surgeon Colon and Rectal Surgery 10/13/19
--- OUTSIDE RECORDS SUMMARY | 2024-05-22 14:08 | XMS_ITS | Continuity of Care Document ---
Author Organization [facility] Address [address] [place] [address] [address] [place] [address] Phone Care Team Providers Care Grader Tender Name Role Phone Neelima London Unavailable Unavailable Procedures Procedure Date Eye Exam & Treatment Refraction Office/outpatient Visit, Est No Script Eye Exam Established Pt No Script Eye Exam Established Pt Advance Directives Directive Yes / No Effective Date File Name No Information Encounters Encounter Description Practice Location Reason(s) For Visit Diagnoses Date Provider Providers Copied on Encounter [facility], [id number] [place] [address] [address], [place], [place], [id number], [place] tel:[phone] [facility] No Information 2-201 0 Lita Ortez. [address] [facility] [place] , [address], [place], [place], [facility], . tel:[phone] Office/outpat ient Visit, Est [facility], [address] [place] [address] [address], [place], [place], [id number], [place] tel:[phone] [facility] No Information Sep-0 9-200 9 Ev Barrow. [address] [facility] [address], [place], [place], [facility], . tel:[phone] [facility], [address] [place] [address] [address], [place], [place], [id number], [place] tel:[phone] [facility] No Information Sep-0 2-200 9 Ev Barrow. [address] [facility] [address], [place], [address], [place]. tel:[phone] [facility], [address], [place], [place], [id number], [place] tel:[phone] [facility] No Information 8 Smita Chopra. [address] [facility] [address], [place], [address], [place]. tel:[phone] Family History Family Member Type Diagnosis Age At Onset No Information Payers Payer name Insurance type Covered republican ID [place] lornaobinna(s) [employer] Vision Plan CI [id number] Social History Type Description Quantity Date Captured [...]
--- OUTSIDE RECORDS SUMMARY | 2024-05-22 14:08 | XMS_ITS ---
Author Organization [facility] Address [address] [place] [address] Care Team Providers Care Home Performance Consultant Name Role Phone Oscar Carroll MD Unavailable + Oleg Marrero MD Unavailable [phone] Paulina Houser NP Primary Care Provider [phone] Active Problems Problem Noted Date Diagnosed Date Chronic anticoagulation 04/30/2024 Primary hypertension 04/30/2024 Mixed hyperlipidemia 04/30/2024 Atrial fibrillation 03/26/2024 Screening for malignant neoplasm of colon 2020 Overview (07/20/2020): Added automatically from request for surgery [id number] History of colon cancer 10/29/2019 Clostridium difficile infection 10/07/2019 Acute postoperative abdominal pain 09/23/2019 Malignant neoplasm of hepatic flexure 09/09/2019 Overview (09/09/2019): Added automatically from request for surgery [id number] Malignant neoplasm of transverse colon 0 Other [...] from the original note were not included. [facility] [address] [place] [address] This Survivorship Care Plan is a cancer [...] Information: Primary Care Physician Roman Mancia DO [phone] Surgeon Oleg Marrero MD Radiation Oncologist Medical Oncologist Gluer And Wedger Oscar Bill MD Treatment Summary Cancer Diagnosis [...] valrubicin, doxorub icin isotoxic equivalent Research Studies [facility] DIGESTIVE DISEASES RESEARCH CORE CENTER (DDRCC) BIOBANK [...] Medical oncology and Surgeon if both are [facility] Physicians) History and Physical every 3 [...] Help learning to eat healthier, call the domain architect at: [facility] . Have an active lifestyle, [...] Resources you may be interested in: [facility] Cancer [place] A National Cancer [place] [facility] http://www.[facility]/ [facility] & Cancer Information Center 1st floor of [facility] [phone]. Computer access, educational material, counseling services (FREE) United Ostomy Association: the place for ostomy resources, advocacy, and support. www.ostomy.org The ostomy nurse at [facility] can be reached at [phone] Online Resources: www.cancer.net; http://www.cdc.gov/cancer/survivorship; http://www.cancercare.org/tagged/post-treatment_survivorship; http://www.cancer.gov/about-cancer/coping/survivorship Springboard Beyond Cancer: https://survivorship.cancer.gov/ an online tool for cancer survivors andcaregivers created by the [place] Cancer Society and the National Cancer [place]. It provides: Information on dealing with side effects from cancer and treatment Caregivers with support and resources Practical advice about talking to friends and family about cancer Questions to ask their health care team Help understanding their rights in the workplace
--- OUTSIDE RECORDS SUMMARY | 2024-05-22 14:08 | XMS_ITS | Clinical Summary ---
Author Organization [facility] [email or web address] Address [address] [place] [address] Care Team Providers Care Immunologist Name Role Phone Brandon Roberts MD Primary Care Provider [phone] Source Comments [facility] [email or web address],non-owned Affiliates and Associated Physician Practices is amultiple site organization consisting of ambulatory clinics and hospital sitesin [place], [place], [place] and [place]. This disclosure is being madepursuant to the Care Everywhere program and may not contain all information available regarding this patient. Last updated 17.[facility] [email or web address] Allergies No known active allergies Medications * [...] age to complete this topic Care Teams Immunologist Relationship Specialty Start Date End Date Brandon Roberts MD [address] [place] [address] PCP - General 11/12/08
--- OUTSIDE RECORDS SUMMARY | 2024-05-22 14:08 | XMS_ITS | Clinical Summary ---
Author Organization [facility] Address [address] [place] [address] Care Team Providers Care Patent Prosecution Attorney Name Role Phone Roman Mancia Primary Care Provider [phone] Allergies No known active allergies Medications aspirin [...] TIMES DAILY NEEDED FOR DIZZINESS 1 Active [place] 3 1200 MG Cap Take 2 tablets [...] on file Legal Sex Female 9:14 AM SAMPLER AND TEST PREPARER Gender Identity Not on file Sexual Orientation Not on file Last Filed Vital Signs Vital Sign Reading Time Taken Comments Blood Pressure 168/86 04/21/2021 9:26 AM SAMPLER AND TEST PREPARER Pulse 75 04/21/2021 9:26 AM SAMPLER AND TEST PREPARER Temperature 36.9 C (98.4 F) 04/21/2021 9:26 AM SAMPLER AND TEST PREPARER Respiratory Rate 16 04/21/2021 9:26 AM SAMPLER AND TEST PREPARER Oxygen Saturation 92% 04/21/2021 9:26 AM SAMPLER AND TEST PREPARER Inhaled Oxygen Concentration - - Weight 89.8 kg (198 lb) 04/21/2021 9:26 AM SAMPLER AND TEST PREPARER Height 160 cm (5' 3 ) 04/21/2021 9:26 AM SAMPLER AND TEST PREPARER Body Mass Index 35.07 04/21/2021 9:26 AM SAMPLER AND TEST PREPARER Plan of Treatment Upcoming Encounters Date Type Department Care Team (Late st Contact Info) Description 07/17/2024 1:30 PM CDT [facility] [address] [place] [address] Chay Self MD [address] [address] Health Maintenance Due Date Last Done Comments DTaP, Tdap and Td Vaccines ( 1 - Tdap) 1954 Annual Medicare Wellness Visit 2002 Zoster Vaccines (2 of 3) 06/06/2012 04/11/2012 RSV Immunization or 60+ Years (1 - 1-dose 75+ series) 2012 Pneumococcal Vaccine: 65+ Years (2 of 2 - PPSV23 or PCV20) 12/01/2018 12/01/2017 COVID-19 Vaccine (4 - 2023-2 5 season) 2023 12/23/2020, 05/05/2020, 04/16/2020 Meningococcal B Vaccine Aged Out No l onger eligible based on patient's age to complete this topic Meningococcal Vaccine Aged Out No page teressa eligible based on patient's age to complete this topic RSV Immunizations Under 20 Months Aged Out No longer eligible b ased on patient's age to complete this topic Insurance [facility] Care Teams Patent Prosecution Attorney Relationship Specialty Start Date End Date Roman Mancia DO [address] [address] PCP - General INTERNAL MEDICINE 02/21/21
[2024-05-22 15:04] LABS: Add Urine Microscopic? YES; Appearance Urine Clear (Clear); Bacteria Urine 1+ /hpf; Bilirubin Urine Negative (Negative); Blood Urine Negative (Negative); Color Urine Yellow (Yellow); Glucose Urine UA Negative (Negative); Ketones Urine Negative (Negative); Leukocyte Esterase Ur Trace LEU/UL (Negative); Nitrate Urine Negative (Negative); Non Pathogenic Casts 0-2; Protein Urine Negative (Negative); RBC Urine 0-2 /hpf (0-2); Specific Grav Ur 1.011 (1.001-1.035); Squamous Epithelial Cell Urine Few /hpf (Few); Urobilinogen Urine 0.2 mg/dL (<2.0)
== END 2024-05-22 14:05 | disposition home or self-care (01) ==
LOC: ANHLAB 14:06
PROVIDERS: PCP Nurse Practitioner Family; Visit Provider Nurse Practitioner Family
DX: I48.91 Unspecified atrial fibrillation (principal); J96.21 Acute and chronic respiratory failure with hypoxia; I50.33 Acute on chronic diastolic (congestive) heart failure; J44.9 Chronic obstructive pulmonary disease, unspecified; R41.82 Altered mental status, unspecified
CPT/HCPCS: 81001; 87086

== ENCOUNTER 2024-06-03 12:12 | Outpatient (RCR) | payer MEDICARE, SELFPAY ==
[2024-05-13 14:59] LABS: INR 2.3; Prothrombin Time 26.3 Seconds (11.1-14.7)
[2024-05-15 12:48] LABS: INR 2.8
[2024-05-22 15:12] LABS: Prothrombin Time 86.1 Seconds (11.1-14.7)
[2024-05-22 15:23] LABS: INR 11.1
[2024-05-27 13:44] LABS: INR 2.7; Prothrombin Time 29.5 Seconds (11.1-14.7)
[2024-05-29 12:47] LABS: INR 2.8; Prothrombin Time 30.6 Seconds (11.1-14.7)
[2024-06-03 12:48] LABS: INR 1.4; Prothrombin Time 17.7 Seconds (11.1-14.7)
== END 2024-08-11 23:59 | disposition home or self-care (01) ==
LOC: HOME HLTH 12:12
PROVIDERS: PCP Nurse Practitioner Family; Visit Provider Internal Medicine
DX: Z51.81 Encounter for therapeutic drug level monitoring (principal); I48.91 Unspecified atrial fibrillation; Z79.01 Long term (current) use of anticoagulants
CPT/HCPCS: 85610

== ENCOUNTER 2024-07-06 07:58 | Outpatient (CLI) | payer MEDICARE, SELFPAY ==
--- OUTSIDE RECORDS SUMMARY | 2024-07-06 08:03 | XMS_ITS | Clinical Summary ---
Author Organization [facility] Address [address] [place] [address] Care Team Providers Care [employer] Volleyball Coach Name Role Phone Oscar Carroll MD Unavailable + Oleg Marrero MD Unavailable [phone] Paulina Houser NP Primary Care Provider [phone] Allergies No known active allergies Medications amLODIPine [...] 1 tablet (75 mcg total) by mouth health information internship before breakfast 0 11/29/19 18 Active dupilumab (DUPIXENT) 300 mg/2 mL syringe Inject 2 mL (300 mg total) under the skin every 14 (fourteen) days. 4 Syringe 5 02/26/19 19 Active ibuprofen (ADVIL,MOTRIN) 600 mg tabletIndications:Pa in,Postoperative Acute Pain Take 1 tablet (600 mg [...] DAILY 90 tablet 3 03/19/19 25 Active acetaminophen (TYLENOL) 500 mg tablet Take 1 [...] Take 1 tablet by mouth daily Active fluticasone-umeclidi n-vilanter (Trelegy Ellipta) 100-62.5-25 mcg inhaler Inhale 1 puff daily Active tuberculin (PPD) 5 tub. unit /0.1 mL injectionIndications :Delayed Hypersensitivity Skin Test for Tuberculin PPD Inject into the skin Active apixaban (ELIQUIS) 5 mg tablet Take 1 tablet (5 mg total) by mouth 2 (two) times a day 180 tablet 3 05/28/19 25 Active Active Problems Problem Noted Date Diagnosed Date Chronic anticoagulation 04/30/2024 Primary hypertension 04/30/2024 Mixed hyperlipidemia 04/30/2024 Atrial fibrillation 03/26/2024 Screening for malignant neoplasm of colon 2020 Overview (07/20/2020): Added automatically from request for surgery [id number] History of colon cancer 10/29/2019 Clostridium difficile infection 10/07/2019 Acute postoperative abdominal pain 09/23/2019 Malignant neoplasm of hepatic flexure 09/09/2019 Overview (09/09/2019): Added automatically from request for surgery [id number] Malignant neoplasm of transverse colon 0 Other atopic dermatitis 02/26/2018 Pruritus, unspecified 02/26/2018 Venous barkley of lip 02/26/2018 Encounters Date Type Department Care Team Description 06/04/2024 Telephone [facility] Cardiology [address] [place] [address] Caridad Self MD 06/01/[address] [facility] [address] [place] [address] Caridad Self MD 05/29/2024 Anticoagulation Visit [facility] Medical [facility] Cardiology [address] [place] [address] Oleg Mathis RN Atrial fibrillation, unspecified type (HCC) (Primary Dx) 05/28/2024 Telephone [facility] Cardiology [address] [place] [address] [place] [phone] Caridad Self MD 05/27/2024 Anticoagulation Visit [place] [address] [place] [phone] Sherrie Page RN Atrial fibrillation, unspecified type (HCC) (Primary Dx) 05/27/2024 Telephone [place] [address] [place] [phone] Caridad Self MD 05/22/2024 Anticoagulation Visit [place] [address] [place] [address] Teresa Snowden RN Atrial fibrillation, unspecified type (HCC) (Primary Dx) 05/22/2024 Telephone [place] [address] [place] [phone] Caridad Self MD 05/18/2024 Anticoagulation Visit [place] [address] [place] [phone] Enedina Zepeda RN Atrial fibrillation, unspecified type (HCC) (Primary Dx) 05/15/2024 Anticoagulation Visit [place] [address] [place] [phone] Teresa Snowden RN Atrial fibrillation, unspecified type (HCC) (Primary Dx) 05/13/2024 Anticoagulation Visit [place] [address] [place] [phone] Teresa Snowden RN Atrial fibrillation, unspecified type (HCC) (Primary Dx) 05/11/2024 Telephone [place] [address] [place] [phone] Caridad Self MD 05/07/2024 Orders Only [facility] Cardiology [address] [place] [address] Caridad Self MD 04/30/2024 11:35 AM CDT Ancillary Procedure [facility] Cardiology [address] [place] [address] 04/30/2024 11:00 AM CDT Office Visit [facility] Cardiology [address] [place] [address] [address] [place] [address] Caridad Self MD Persistent atrial fibrillation (HCC) (Primary Dx); Chronic anticoagulation; Primary hypertension; Mixed hyperlipidemia 04/30/2024 Orders Only [facility] Health Information Management [address] [place] [address] Caridad Self MD from Last 3 Months Immunizations Immunization Administration Dates Next Due Pneumococcal Conjugate PCV 13 12/02/2017 Surgical History Surgery Date Site/Laterality Comments ND LIGJ DIVJ &/EXCJ VARICOSE VEIN CLUSTER 1 LEG Varicose Vein Ligation - (Added by TW Conv) ND TONSILLECTOMY PRIMARY/SECONDARY <AGE 14 Tonsillectomy - (Added [...] Used Date Smoking Tobacco: Former Cigarettes 1 67.4 S tarted: 1957 Smokeless Tobacco: Never Tobacco [...] on file Legal Sex Female 12:02 PM CUFF 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 Gender Identity Female 10/28/2019 5:35 PM CDT [...] CDT per pt Height 160 cm (5' 3) 04/30/2024 10:57 AM CDT Body Mass Index [...] Priority Date/Time Associated Diagnosis Comments PROTIME-INR Routine 05/29/2024 PROTIME-INR Routine 05/27/2024 PROTIME-INR Routine 05/22/2024 PROTIME-INR Routine 05/15/2024 PROTIME-INR Routine 05/15/2024 PROTIME-INR Routine 05/13/2024 CARDIOLOGY DOCUMENT SCAN Routine 025 4:34 PM CDT CARDIOLOGY DOCUMENT SCAN Routine 025 4:32 PM CDT HOLTER MONITOR 48 HR Routine 04/30/2024 11:30 AM CDT Persistent atrial fibrillation (HCC) ELECTROCARDIOGRAM REPORT Routine 025 11:28 AM CDT Persistent atrial fibrillation (HCC) SCAN - RADIOLOGY/IMAGING 04/30/2024 from Last 3 Months Results * (ABNORMAL) Protime-INR (05/29/2024) INR 2.80(A) 0.90 - 1.10 EXTERNAL LAB Blood 05/29/2024 Historical Provider MD LAB BLOOD ORDERABLES Mariam l Result EXTERNAL LAB * (ABNORMAL) Protime-INR (05/27/2024) INR 2.70(A) 0.90 - 1.10 EXTERNAL LAB Blood Historical Provider MD LAB BLOOD ORDERABLES Mariam l Result Performing Organization Address [facility] Co de Phone Number EXTERNAL LAB * (ABNORMAL) Protime-INR (05/22/2024) INR 11.10(A) 0.90 - 1.10 EXTERNAL LAB Blood Result [facility] Historical Provider MD LAB BLOOD ORDERABLES Mariam l Result Performing Organization Address City/[facility] Co de Phone Number EXTERNAL LAB * (ABNORMAL) Protime-INR (05/15/2024) INR 2.80(A) 0.90 - 1.10 EXTERNAL LAB Blood Result [facility] Provider MD LAB BLOOD ORDERABLES Mariam l Result Performing Organization Address [facility] de Phone Number EXTERNAL LAB * (ABNORMAL) Protime-INR (05/15/2024) INR 2.80(A) 0.90 - 1.10 EXTERNAL LAB Blood Result [facility] Provider MD LAB BLOOD ORDERABLES Edit ed Result - Final Performing Organization Address [facility] de Phone Number EXTERNAL LAB * (ABNORMAL) Protime-INR (05/13/2024) INR 2.30(A) 0.90 - 1.10 [facility] Blood Result [facility] Historical Provider MD LAB BLOOD ORDERABLES Mariam l Result Performing Organization Address City/[facility]/ZIP Co de Phone Number [facility] * Cardiology Document Scan (05/02/2024 4:34 PM CDT) Anatomical Region Laterality Modality Other Result [facility] Blake Iraheta MD CV CARDIAC SERVICES PROCEDURES F inal Result * Cardiology Document Scan (05/01/2024 4:32 PM CDT) Anatomical Region Laterality Modality Other Caridad Self MD CV CARDIAC SERVICES PRO CEDURES Final Result * 48 HR Holter Monitor (04/30/2024 11:30 AM CDT) Anatomical Region Laterality Modality Electrocardiogra phy Narrative 05/14/2024 12:39 PM CDT Images from the original result were not included. AMBULATORY VALVE REPAIRER RECLAMATION REPORT Patient Name: Kanchan Abbott Date of [...] 102 beats per minute. Caridad Self M.D., [facility] 05/14/24 Procedure Note Caridad Self MD - 05/14/2024 Images from the original note were not included. AMBULATORY VALVE REPAIRER RECLAMATION REPORT Patient Name: Kanchan Abbott Date of [...] of 102 beatsper minute. Caridad Self M.D., [facility] 05/14/24 Caridad Self MD CV CARDIAC SERVICES PRO CEDURES Final Result * Electrocardiogram Report (04/30/2024 11:28 AM CDT) Caridad Self MD ECG ORDERABLES Final R esult * SCAN - RADIOLOGY/IMAGING (04/30/2024) Anatomical Region Laterality Modality Other Caridad Self MD Final R esult from Last 3 Months Insurance [employer]HC MEDICARE [facility]ANTAGE [facility] MED[facility] Address: [facility] [address] [place] [address] UHC MEDICARE ADVANTAGE [facility] MEDIC[facility] Address: [place] [id number] [place] [address] Advance Directives For more information, please contact: [phone] * Full Code (Latest Code Status on [...] Manzo Daughter Health Care Agent Care Teams [employer] Volleyball Coach Relationship Specialty Start Date End Date Paulina Houser NP [address] [place] [address] PCP - General Family Medicine 03/05/24 Oscar Carroll MD [address] [place] [address] Systems Engineer Gastroenterology 09/03/19 Oleg Marrero MD [address] [place] [address] Surgeon Colon and Rectal Surgery 10/13/19
--- OUTSIDE RECORDS SUMMARY | 2024-07-06 08:03 | XMS_ITS ---
Author Organization [facility] Address [address] [place] [address] Care Team Providers Care Sat Tutor Name Role Phone Oscar Carroll MD Unavailable + Oleg Marrero MD Unavailable [phone] Paulina Houser NP Primary Care Provider [phone] Active Problems Problem Noted Date Diagnosed Date Chronic anticoagulation 04/30/2024 Primary hypertension 04/30/2024 Mixed hyperlipidemia 04/30/2024 Atrial fibrillation 03/26/2024 Screening for malignant neoplasm of colon 2020 Overview (07/20/2020): Added automatically from request for surgery [id number] History of colon cancer 10/29/2019 Clostridium difficile infection 10/07/2019 Acute postoperative abdominal pain 09/23/2019 Malignant neoplasm of hepatic flexure 09/09/2019 Overview (09/09/2019): Added automatically from request for surgery [id number] Malignant neoplasm of transverse colon 0 Other [...] from the original note were not included. [facility] [address] [place] [address] This Survivorship Care Plan is a cancer [...] Information: Primary Care Physician Roman Mancia DO [phone] Surgeon Oleg Marrero MD Radiation Oncologist Medical Oncologist Radio Antenna Installer Oscar Bill MD Treatment Summary Cancer Diagnosis [...] valrubicin, doxorub icin isotoxic equivalent Research Studies [facility] DIGESTIVE DISEASES RESEARCH CORE CENTER (DDRCC) BIOBANK [...] Medical oncology and Surgeon if both are [facility] Physicians) History and Physical every 3 [...] Help learning to eat healthier, call the health safety engineer at: [facility] . Have an active lifestyle, [...] physician. Resources you may be interested in: [facility] Cancer [place] A National Cancer [place] [facility] http://www.[facility]/ [facility] & Cancer Information Center 1st floor of [facility] [phone]. Computer access, educational material, counseling services (FREE) United Ostomy Association: the place for ostomy resources, advocacy, and support. www.ostomy.org The ostomy nurse at [facility] can be reached at [phone] Online Resources: www.cancer.net; http://www.cdc.gov/cancer/survivorship; http://www.cancercare.org/tagged/post-treatment_survivorship; http://www.cancer.gov/about-cancer/coping/survivorship Springboard Beyond Cancer: https://survivorship.cancer.gov/ an online tool for cancer survivors andcaregivers created by the [place] Cancer Society and the National Cancer [place]. It provides: Information on dealing with side effects from cancer and treatment Caregivers with support and resources Practical advice about talking to friends and family about cancer Questions to ask their health care team Help understanding their rights in the workplace
--- OUTSIDE RECORDS SUMMARY | 2024-07-06 08:03 | XMS_ITS | Encounter Summary ---
Author Organization [facility] Address [address] [place] [address] Care Team Providers Care Transport Driver Name Role Phone Brandon Roberts MD Primary Care Provider [phone] Encounter Details Date Type Department Care Team (Late st Contact Info) Description 08/12/2023 Lab Requisition [facility] - DermPath Lab [address] [facility] [place] [address] Chikis Mendoza MD [address] [facility] [address] [place] [address] Social History Tobacco Use Types Packs/Day Years Used Date Smoking Tobacco: Former Smokeless Tobacco: Never Alcohol Use Standard Drinks/Week Comments No 0 (1 standard drink = 0.6 oz pur e alcohol) Comments Unknown Sex and Gender Information Value Date Recorded Sex Assigned at Not on file Legal Sex Female 6:34 PM [employer] Gender Identity Not on file Sexual Orientation Not on file documented as of this encounter Plan of Treatment Not on file documented as of this encounter Procedures Procedure Name Priority Date/Time Associated Diagnosis Comments DERMATOPATHOLOGY Routine 08/12/2023 11:1 7 AM CDT documented in this encounter Results * DERMATOPATHOLOGY (08/12/2023 11:17 AM CDT) Case Report Dermatopathology Report Case: [id number] Authorizing Provider: Chikis Mendoza MD Collected: 08/12/2023 11:17 AM Ordering Location: [facility] - Received: 08/13/2023 01:05 PM DermPath Lab Pathologist: Kristel Crawford MD Specimen: Skin, left forehead 5:05 PM CDT DERMATOPATHOLOGY LABORATORY Final Diagnosis Specimen A. SKIN, left forehead: BASAL CELL CARCINOMA, NODULAR TYPE (C44.319) CALCINOSIS CUTIS (L94.2) 5:05 PM CDT DERMATOPATHOLOGY LABORATORY at 1705 CDT Clinical History R/O BCC; pearly papule 5:05 [...] characteristic determined by the Dermatopathology Laboratory at [facility], directed by Dr. Leslye Thomas. These tests need not be, and therefore are not, approved by the [place] Food and Drug Administration. The tests are used for clinical purposes. Billing Codes Specimen Charges Stain Charges 83555 1 5:05 PM CDT DERMATOPATHOLOGY LABORATORY Embedded Images 5:05 PM CDT DERMATOPATHOLOGY LABORATORY Pathology/Cytolo gy TISSUE SPECIMEN FROM SKIN / Unknown 08/12/2023 11:17 AM CDT 08/13/2023 1:05 PM CDT us Chikis Mendoza MD LAB - PATHOLOGY/CYTOLOGY ORD ERABLES Final Result DERMATOPATHOLOGY LABORATORY [facility] - Department of Dermatology [facility] Specialized Medicine [address] [place] [address], [address] [place] [address], [facility] [phone] documented in this encounter Visit Diagnoses Not on filedocumented in this encounter Care Teams Transport Driver Relationship Specialty Start Date End Date Brandon Roberts MD [address] [place] [phone] PCP - General 11/12/08 documented as of this encounter
--- OUTSIDE RECORDS SUMMARY | 2024-07-06 08:03 | XMS_ITS | Encounter Summary ---
Author Organization [facility] Address [address] [place] [address] Care Team Providers Care Strategic Consultant Name Role Phone Brandon Roberts MD Primary Care Provider [phone] Encounter Details Date Type Department Care Team (Late st Contact Info) Description 07/03/2022 Lab Requisition [facility] - DermPath Lab [address] [facility] [place] [address] Chikis Mendoza MD [address] [facility] [address] [place] [address] Social History Tobacco Use Types Packs/Day Years Used Date Smoking Tobacco: Former Smokeless Tobacco: Never Alcohol Use Standard Drinks/Week Comments No 0 (1 standard drink = 0.6 oz pur e alcohol) Comments Unknown Sex and Gender Information Value Date Recorded Sex Assigned at Not on file Legal Sex Female 6:34 PM [employer]GING [employer] Gender Identity Not on file Sexual Orientation Not on file documented as of this encounter Plan of Treatment Not on file documented as of this encounter Procedures Procedure Name Priority Date/Time Associated Diagnosis Comments DERMATOPATHOLOGY Routine 07/03/2022 11:3 5 AM CDT documented in this encounter Results * DERMATOPATHOLOGY (07/03/2022 11:35 AM CDT) Case Report Dermatopathology Report Case: [id number] Authorizing Provider: Chikis Mendoza MD Collected: 07/03/2022 11:35 AM Ordering Location: [facility] Lab Received: 07/03/2022 04:44 PM Pathologist: Skyla Kim MD Specimen: Skin, mid back 12:54 PM CDT DERMATOPATHOLOGY LABORATORY Final Diagnosis Specimen A. SKIN, mid back: EPIDERMOID CYST (L72.0) 12:54 PM CDT DERMATOPATHOLOGY LABORATORY at 1254 CDT Clinical History R/O CYST 12:54 PM CDT DERMATOPATHOLOGY LABORATORY Gross Description Specimen A: Received is one formalin filled container labeled with the patient's name and designated mid back. The specimen consists of a non-oriented ellipse of skin measuring [id number] mm. The epidermal surface is unremarkable. The [...] portion of the hair follicle. 12:54 PM CDT DERMATOPATHOLOGY LABORATORY Disclaimer An external and internal positive and negative controls are appropriate for the histochemical, immunohistochemical and immunofluorescence stain(s) in this case (if any), except where stated explicitly. The performance characteristics of the stain(s) cited in this report were developed and its performance characteristic determined by the Dermatopathology Laboratory at [facility], directed by Dr. Leslye Thomas. These tests need not be, and therefore are not, approved by the [place] Food and Drug Administration. The tests are used for clinical purposes. Billing Codes Specimen Charges Stain Charges 43782 1 12:54 PM CDT DERMATOPATHOLOGY LABORATORY Embedded Images 12:54 PM CDT DERMATOPATHOLOGY LABORATORY Pathology/Cytolo gy TISSUE SPECIMEN FROM SKIN / Unknown 07/03/2022 11:35 AM CDT 07/03/2022 4:44 PM CDT us Chikis Mendoza MD LAB - PATHOLOGY/CYTOLOGY ORD ERABLES Final Result DERMATOPATHOLOGY LABORATORY [facility] - Department of Dermatology [facility] Specialized Medicine [address] [place] [address], [address] [phone] documented in this encounter Visit Diagnoses Not on filedocumented in this encounter Care Teams Strategic Consultant Relationship Specialty Start Date End Date Brandon Roberts MD [address] [place] [address] PCP - General 11/12/08 documented as of this encounter
--- OUTSIDE RECORDS SUMMARY | 2024-07-06 08:03 | XMS_ITS | Clinical Summary ---
Author Organization [facility] Address Formerly [facility] [place] [address] Care Team Providers Care Revenue Investigator Name Role Phone aPulina Houser NP Primary Care Provider [phone] Allergies No known active allergies Medications aspirin EC (ASPIRIN EC) 81 MG tablet Take 1 tablet (81 mg total) by mouth daily. Active Ascorbic Acid 1000 MG Tab Take 1,000 mg by mouth daily. Active amLODIPine 5 MG tablet Take 1 tablet (5 mg total) by mouth daily. 1 Active MULTIPLE VITAMINS OR Take 1 tablet by mouth daily. Active vitamin D3, cholecalciferol , (CHOLECALCIFERO L) 5000 UNITS capsule Take 1 capsule (5,000 Units total) by mouth daily. Active levothyroxine 75 MCG tablet Take 1 tablet (75 mcg total) by mouth daily. 1 Active [place] 3 1200 MG Cap Take 2 tablets by mouth daily. Active dupilumab 300 mg/2 mL injection Inject 2 mLs (300 mg total) into the skin every 14 (fourteen) days. Active fluticasone-kerimt meterol (WIXELA INHUB) 100-50 MCG/ACT inhaler Inhale 1 puff into the lungs every 12 (twelve) hours. 4 Active metoprolol succinate ER (TOPROL-XL) 50 MG 24 hr tablet Take 1 tablet (50 mg total) by mouth daily. 5 Active pantoprazole EC (PROTONIX) 40 MG tablet Take 1 tablet (40 mg total) by mouth daily. Active potassium chloride CR (K-TAB) 20 MEQ tablet Take 2 tablets (40 mEq total) by mouth daily. 5 Active furosemide (LASIX) 40 MG tablet Take 1 tablet (40 mg total) by mouth daily. 5 Active Calcium Carb-Cholecalci ferol (CALCIUM HIGH POTENCY/VITAMIN D) 600-5 MG-MCG Tab Take 1 tablet by mouth daily. Active atorvastatin (LIPITOR) 40 MG tablet Take 1 tablet (40 mg total) by mouth daily. 5 Active amiodarone (PACERONE) 200 MG tablet Take 1 tablet (200 mg total) by mouth daily. Active acetaminophen (TYLENOL) 500 MG tablet Take 1 tablet (500 mg total) by mouth every 6 (six) hours as needed for Pain or Fever. Active traZODone (DESYREL) 50 MG tablet Take 1 tablet (50 mg total) by mouth nightly at bedtime. 5 Active albuterol sulfate HFA 108 (90 Base) MCG/ACT inhaler Inhale 2 puffs into the lungs every 4 (four) hours as needed for Wheezing or Shortness of breath. 4 Active busPIRone (BUSPAR) 10 MG tablet Take 1 tablet (10 mg total) by mouth 2 (two) times daily. 5 Active cefdinir (OMNICEF) 300 MG Cap capsule Take 1 capsule (300 mg total) by mouth 2 (two) times daily. 20 capsule 5 Active warfarin (COUMADIN) 3 MG tablet Take 1 tablet (3 mg total) by mouth every evening for 30 days. Take at 1700 3 mg daily 30 tablet 5 06/24/19 25 Active Problems Problem Noted Date Diagnosed Date Chronic respiratory failure with hypoxia ([facility]) 06/12/2024 MARC (obstructive sleep apnea) 06/12/2024 Cigarette nicotine dependence in remission 06/12 Chronic obstructive pulmonar y disease, unspecified COPD type ([facility]) 06/12/2024 Physical deconditioning 06/12/2024 Diastolic dysfunction 06/12/2024 Morbid (severe) obesity due to excess calories 0 06/12/2024 Supratherapeutic INR 05/22/2024 Encounters Date Type Department Care Team Description 06/25/2024 Telephone [facility] Pulmonology Specialty [address] [phone] Fransico Beasley MD Orders 06/12/2024 11:20 AM CDT Office Visit [facility] [address] [facility], [address] [place] [address] Fransico Besaley MD New Patient (Previous pulm 03/21/24 hosp stays ) 06/12/2024 Travel 05/28/2024 4:20 PM CDT - 05/28/2024 8:24 PM CDT Emergency [facility] Emergency [place] [address] Alonzo Torres MD Blood In Urine Discharge Disposition: Home or Self Care (Routine Discharge) 05/28/2024 Travel 05/26/2024 Hospital Follow-up Call [facility] Management [place] [address] Julissa Love LPN Follow Up Call ([facility] 05/22-05/24/24) 05/25/2024 Scan [facility] INFO SRVCS Scanned, Doc Med Group 05/25/2024 Telephone [facility] Pulmonology Specialty [address] [address] Fransico Beasley MD Appointment Request 05/22/2024 5:34 PM CDT - 05/24/2024 2:44 PM CDT Hospital Encounter [facility] Med/Surg [address] [place] [address] David Mai MD Beggs, Benjamin C, MD Abnormal Lab Results Discharge Disposition: Home or Self Care (Routine Discharge) 05/22/2024 Travel 05/07/2024 Scan [facility] INFO SRVCS Scanned, Doc [facility] Group Lab (SCAN) 05/06/2024 Scan [facility] SRV[facility] Scanned, Doc [facility] Image (SCAN) 05/04/2024 Scan [facility] Scanned, [facility] Lab (SCAN) 05/04/2024 Scan [facility] Scanned, [facility] Lab (SCAN); Procedure (SCAN); Image (SCAN) 05/03/2024 Scan [facility] Scanned, [facility] Lab (SCAN) 05/02/2024 Scan [facility] Scanned, [facility] Lab (SCAN) 05/01/2024 Scan [facility] Scanned, Doc [facility] Lab (SCAN) 04/30/2024 Scan [facility] INFO [facility]VCS Scanned, Doc [facility] Lab (SCAN); Image (SCAN) 04/20/2024 Scan [facility] Scanned, Doc [facility] Group Image (SCAN) 04/16/2024 Scan [facility] INFO [facility]VCS Scanned, Doc [facility] Group Image (SCAN) 04/14/2024 Scan [facility] INFO [facility]VCS Scanned, Doc [facility] Group Image (SCAN) 04/12/2024 Scan [facility] INFO [facility] Scanned, Doc [facility] Group Image (SCAN); Vascular Lab Study (SCAN) 04/11/2024 Scan [facility] Scanned, Doc [facility] Image (SCAN) 04/10/2024 Scan [facility] INFO [facility] Scanned, Doc Med Group Image (SCAN) 04/09/2024 Scan [facility] INFO [facility] Scanned, Doc [facility] Group Image (SCAN) from Last 3 Months Immunizations Immunization Administration Dates Next Due Fluzone High Dose - >Age 65 (Prefilled Syringe) 12/14/2019 Influenza (Generic) 11/19/2018,11/16/2013,2012 Influenza Adult (Generic) 12/02/2020,02/2017,11/19/2016,2015,11/24/2014 Pneumococcal (Prevnar 13) 12/01/2017 Zoster (Zostavax) [address] Unt/0.65Ml 04/11/2012 Family History Medical History Relation Comments Cancer Father Cancer Mother Dementia Sister Relation Status Comments Father Mother Sister Social History Tobacco Use Types Packs/Day Years Used Date Smoking Tobacco: Former Smokeless Tobacco: Never Tobacco Cessation:Counseling Given: Yes Comments:Per family quit 2022 - smoked 50 yrs 1ppd- ao 06/12/24 Alcohol Use Standard Drinks/Week Comments Not Currently 0 (1 standard drink = 0.6 oz pur e alcohol) [facility] Utilities Answer Date Recorded In the past 12 months has th e electric, gas, oil, or water company threatened to shut off services in your home? No 05/22/2024 Humiliation, Afraid, Rape, and Kick questionnair e Answer Date Recorded Within the last year, have y ou been afraid of your partner or ex-partner? No 05/22/2024 Within the last year, have y ou been humiliated or emotionally abused in other ways by your partner or ex-partner? No Within the last year, have y ou been kicked, hit, slapped, or otherwise physically hurt by your partner or ex-partner? No 05/22/2024 Within the last year, have y ou been raped or forced to have any kind of sexual activity by your partner or ex-partner? No 05/22/2024 Overall Financial Resource Strain (CARDIA) Answe r Date Recorded How hard is it for you to pa y for the very basics like food, housing, medical care, and heating? Not hard at all 05/22/2024 PHQ-2 Answer Date Recorded Patient Health Questionnaire-2 Score 0 06/12/2024 Hunger Vital Sign Answer Date Recorded Within the past 12 months, y ou worried that your food would run out before you got the money to buy more. Never true 05/23/19 Within the past 12 months, t he food you bought just didn't last and you didn't have money to get more. Never true 05/22/2024 PRAPARE - Transportation Answer Date Re corded In the past 12 months, has l ack of transportation kept you from medical appointments or from getting medications? No 05/2024 In the past 12 months, has l ack of transportation kept you from meetings, work, or from getting things needed for daily living? No 05/22/2024 Housing Stability Vital Sign Answer David e Recorded In the last 12 months, was t here a time when you were not able to pay the mortgage or rent on time? No 05/22/2024 In the past 12 months, how m any times have you moved where you were living? 0 05/22/2024 At any time in the past 12 m [facility], were you homeless or living in a mcc (including now)? 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 Gender Identity Not on file Sexual Orientation Not on file Last Filed Vital Signs Vital Sign Reading Time Taken Comments Blood Pressure 101/59 06/12/2024 11:30 AM CDT Pulse 106 06/12/2024 11:30 AM CDT Temperature 36.8 C (98.2 F) 06/12/2024 11:30 AM CDT Respiratory Rate 14 06/12/2024 11:3 0 AM CDT Oxygen Saturation 91% 06/12/2024 11: 30 AM CDT 3Lpm Inhaled Oxygen Concentration - - Weight 87.1 kg (192 lb) 06/12/2024 11:3 0 AM CDT Height 157.5 cm (5' 2) 06/12/2024 11:3 0 AM CDT recorded previously Body Mass Index 35.12 06/12/2024 11:30 AM CDT Plan of Treatment Upcoming Encounters Date Type Department Care Team (Late st Contact Info) Description 07/17/2024 1:30 PM CDT [facility] [address] [place] [phone] Chay Self MD [facility]. [address] [place] [address] 09/24/2024 11:00 AM CDT Office Visit [facility] - [facility] [address] [facility] [place] [phone] Fransico Beasley MD 3rd [facility] [address] [place], [place] [address] Health Maintenance Due Date Last Done Comments Annual Medicare Wellness Visit 2002 Pneumococcal Vaccine: 50+ Years (2 of 2 - PPSV23) 01/26/2018 12/01/2017 Zoster Vaccines (3 of 3) 02/26/2022 01/01/2022, 03/22 COVID-19 Vaccine (6 - season) 2023 12/08/2021, 06/17/2021, 12/23/2020, Additional history exists DTaP, Tdap and Td Vaccines (3 - Td or Tdap) 03/27/2034 03/27/2024, 11/17/2022 RSV Immunization or 60+ Years Completed 12/11/2022 PHQ-2 (Physician [place]) Completed 06/12/2024 Meningococcal B Vaccine Aged Out No l onger eligible based on patient's age to complete this topic Meningococcal Vaccine Aged Out No page teressa eligible based on patient's age to complete this topic RSV Immunizations Under 20 Months Aged Out No longer eligible based on patient's age to complete this topic Goals Goal Patient Goal Type Associated Problems Recent Progress Patient-Stated? 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 Procedure Name Priority Date/Time Associated Diagnosis Comments CT ABD+PEL W CON STAT 05/28/2024 5:23 PM CDT URINE BACTERIA CULTURE STAT 4:37 PM CDT HC URINALYSIS AUTO W/O MICRO STAT 05/28/2024 4:37 PM CDT PARTIAL THROMBOPLASTIN TIME,PTT STAT 05/28/2024 4:37 PM CDT PROTHROMBIN TIME, VENOUS STAT 05/28/2024 4:37 PM CDT COMPREHENSIVE METABOLIC PANEL STAT 05/28/2024 4:37 PM CDT CBC W/DIFF AUTOMATED STAT 05/28/2024 4:37 PM CDT BASIC METABOLIC PANEL Routine 05/24/2024 6:00 AM CDT CBC W/DIFF AUTOMATED Routine 05/24/2024 6:00 AM CDT PROTHROMBIN TIME, VENOUS Routine 05/24/2024 12:40 AM CDT POCT GLUCOSE - WORKMAN DOCKED DEVICE Routine 05/23/2024 7:42 PM CDT POCT GLUCOSE - WORKMAN DOCKED DEVICE Routine 05/23/2024 4:16 PM CDT POCT GLUCOSE - WORKMAN DOCKED DEVICE Routine 05/23/2024 11:49 AM CDT POCT GLUCOSE - WORKMAN DOCKED DEVICE Routine 05/23/2024 6:33 AM CDT BASIC METABOLIC PANEL Routine 05/23/2024 5:30 AM CDT PROTHROMBIN TIME, VENOUS Routine 05/23/2024 5:30 AM CDT CBC W/DIFF AUTOMATED Routine 05/23/2024 5:30 AM CDT POCT GLUCOSE - WORKMAN DOCKED DEVICE Routine 05/23/2024 12:37 AM CDT PROTHROMBIN TIME, VENOUS STAT 05/22/2024 5:05 PM CDT COMPREHENSIVE METABOLIC PANEL STAT 05/22/2024 5:05 PM CDT CBC W/DIFF AUTOMATED STAT 05/22/2024 5:05 PM CDT OUTSIDE LAB (SCAN ORDER) 05/07/2024 OUTSIDE PT/INR (SCAN ORDER) 05/07/2024 OUTSIDE LAB (SCAN ORDER) 05/07/2024 OUTSIDE PT/INR (SCAN ORDER) 05/07/2024 IMAGE GENERIC 05/06/2024 IMAGE GENERIC 05/06/2024 IMAGE GENERIC 05/06/2024 OUTSIDE LAB COVID-19 (SCAN ORDER) Routine 05/04/2024 OUTSIDE LAB (SCAN ORDER) 05/04/2024 OUTSIDE LAB (SCAN ORDER) 05/04/2024 OUTSIDE LAB (SCAN ORDER) 05/04/2024 OUTSIDE LAB (SCAN ORDER) 05/04/2024 IMAGE GENERIC 05/04/2024 IMAGE GENERIC 05/04/2024 IMAGE GENERIC 05/04/2024 IMAGE GENERIC 05/04/2024 IMAGE GENERIC 05/04/2024 PROCEDURE GENERIC (SCAN ORDER) 05/04/2024 PROCEDURE GENERIC (SCAN ORDER) 05/04/2024 PROCEDURE GENERIC (SCAN ORDER) 05/04/2024 OUTSIDE LAB (SCAN ORDER) 05/03/2024 OUTSIDE LAB (SCAN ORDER) 05/03/2024 OUTSIDE PT/INR (SCAN ORDER) 05/02/2024 OUTSIDE PT/INR (SCAN ORDER) 05/02/2024 OUTSIDE LAB (SCAN ORDER) 05/01/2024 OUTSIDE LAB (SCAN ORDER) 05/01/2024 OUTSIDE LAB (SCAN ORDER) 04/30/2024 OUTSIDE LAB (SCAN ORDER) 04/30/2024 OUTSIDE LAB (SCAN ORDER) 04/30/2024 OUTSIDE LAB (SCAN ORDER) 04/30/2024 IMAGE GENERIC 04/30/2024 IMAGE GENERIC 04/30/2024 IMAGE GENERIC 04/20/2024 IMAGE GENERIC 04/20/2024 IMAGE GENERIC 04/20/2024 IMAGE GENERIC 04/16/2024 IMAGE GENERIC 04/16/2024 IMAGE GENERIC 04/14/2024 IMAGE GENERIC 04/14/2024 VASCULAR LAB GENERIC (SCAN ORDER) 04/12/2024 IMAGE GENERIC 04/12/2024 IMAGE GENERIC 04/12/2024 IMAGE GENERIC 04/11/2024 IMAGE GENERIC 04/11/2024 IMAGE GENERIC 04/10/2024 IMAGE GENERIC 04/10/2024 IMAGE GENERIC 04/09/2024 IMAGE GENERIC 04/09/2024 IMAGE GENERIC 04/09/2024 IMAGE GENERIC 04/09/2024 from Last 3 Months Results * CT ABD+PEL W IV CON ONLY (05/28/2024 5:23 PM CDT) Anatomical Region Laterality Modality Abdomen Computed Tomogra phy 05/28/2024 5:41 PM CDT Impressions 05/28/2024 5:53 PM CDT IMPRESSION: 1. Diffuse bladder wall thickening with adjacent edema suggestive of cystitis. 2. No hydronephrosis or visible urolithiasis. 3. There are technically indeterminate right renal cysts, not well evaluated. Further evaluation with MRI of the abdomen with/without contrast is recommended on a nonemergent basis within the near future. 4. There are 1 mm and 2 mm nonobstructing right renal calculi. 5. Extensive colonic diverticulosis without visible secondary evidence of acute diverticulitis. 6. Cardiomegaly. Mild pulmonary vascular congestion. Small right pleural effusion. 7. Chronic appearing avulsion injury of the left hamstring origin. There is partial tendinous retraction with associated calcification. 8. There is a noncontrast appearance of the abdomen and pelvis. No visible intravenous contrast. Physical examination of the patient for signs of contrast extravasation at the injection site is recommended. Ordered By: ALONZO TORRES Interpreted By: Yordan Ang DO, 05/28/2024 5:41 PM Narrative 05/28/2024 5:53 PM CDT [place] [id number] EXAMINATION: CT abdomen/pelvis with contrast HISTORY: Hematuria. COMPARISON: None. TECHNIQUE: Axial CT images of the abdomen and pelvis after the uneventful intravenous administration of 100 mL of Isovue-370 given through the right antecubital fossa. Sagittal and coronal reformatted image sets. A dose lowering technique was used for this procedure, which may include, but is not limited to, dose reduction technique, automated exposure control, the use of degenerative reconstruction, and ALARA/image gently techniques. FINDINGS: Lower chest: There is a small right pleural effusion. The heart is enlarged. Mild dependent atelectasis within the right lung. There are thin linear areas of atelectasis bilaterally. Mild bilateral pulmonary vascular congestion. There are coronary artery and cardiac valvular calcifications. Upper abdomen: The liver is normal in size and contour. This has the appearance of a noncontrast examination. Physical examination of the patient for signs of contrast extravasation at the injection site is recommended. There are probable small gallstones versus gallbladder sludge. No evidence of acute cholecystitis. No biliary ductal dilatation. No acute-appearing pancreatic abnormalities. The spleen is normally sized. No evidence of splenic mass. Mild adrenal thickening. Kidneys: There is no hydronephrosis. There are renal vascular calcifications. No visible urolithiasis. There are technically indeterminate right renal cysts, not well evaluated. Further evaluation with MRI of the abdomen with/without contrast is recommended on a nonemergent basis within the near future. There are 1 mm and 2 mm nonobstructing right renal calculi. Vascular: There is diffuse atherosclerotic calcification of the aorta which remains normal caliber. Bowel/mesentery: No ascites or free intraperitoneal air. There is no bowel obstruction. There is extensive colonic diverticulosis without visible secondary evidence of acute diverticulitis. No visible colonic or enteric inflammatory changes. Pelvis: There is a calcified uterine fibroid. There are multiple pelvic phleboliths. Trace free pelvic fluid. Diffuse bladder wall thickening with adjacent edema suggestive of cystitis. There are mildly prominent pelvic lymph nodes. These are technically indeterminant but most likely reactive. Small bilateral fat- containing inguinal hernias. Small fat-containing right lower abdominal hernia. Osseous: Chronic appearing avulsion injury of the left hamstring origin. There is partial tendinous retraction with associated calcification, axial series 2 image 157. There are multilevel degenerative changes throughout the spine and the pelvis. There is lumbar levoscoliosis. Other findings: None. Procedure Note Yordan Ang DO - 05/28/[address] [address] EXAMINATION: CT abdomen/pelvis with contrast HISTORY: Hematuria. COMPARISON: None. TECHNIQUE: Axial CT images of the abdomen and pelvis after the uneventful intravenousadministration of 100 mL of Isovue-370 given through the right antecubitalfossa. Sagittal and coronal reformatted image sets. A dose lowering technique was used for this procedure, which may include,but is not limited to, dose reduction technique, automated exposurecontrol, the use of degenerative reconstruction, and ALARA/image gentlytechniques. FINDINGS: Lower chest: There is a small right pleural effusion. The heart isenlarged. Mild dependent atelectasis within the right lung. There are thinlinear areas of atelectasis bilaterally. Mild bilateral pulmonary vascularcongestion. There are coronary artery and cardiac valvularcalcifications. Upper abdomen: The liver is normal in size and contour. This has theappearance of a noncontrast examination. Physical examination of thepatient for signs of contrast extravasation at the injection site isrecommended. There are probable small gallstones versus gallbladder sludge. No evidenceof acute cholecystitis. No biliary ductal dilatation. No acute-appearingpancreatic abnormalities. The spleen is normally sized. No evidence ofsplenic mass. Mild adrenal thickening. Kidneys: There is no hydronephrosis. There are renal vascularcalcifications. No visible urolithiasis. There are technicallyindeterminate right renal cysts, not well evaluated. Further evaluationwith MRI of the abdomen with/without contrast is recommended on anonemergent basis within the near future. There are 1 mm and 2 mmnonobstructing right renal calculi. Vascular: There is diffuse atherosclerotic calcification of the aortawhich remains normal caliber. Bowel/mesentery: No ascites or free intraperitoneal air. There is no bowelobstruction. There is extensive colonic diverticulosis without visiblesecondary evidence of acute diverticulitis. No visible colonic or entericinflammatory changes. Pelvis: There is a calcified uterine fibroid. There are multiple pelvicphleboliths. Trace free pelvic fluid. Diffuse bladder wall thickening withadjacent edema suggestive of cystitis. There are mildly prominent pelviclymph nodes. These are technically indeterminant but most likely reactive.Small bilateral fat- containing inguinal hernias. Small fat-containingright lower abdominal hernia. Osseous: Chronic appearing avulsion injury of the left hamstring origin.There is partial tendinous retraction with associated calcification, axialseries 2 image 157. There are multilevel degenerative changes throughoutthe spine and the pelvis. There is lumbar levoscoliosis. Other findings: None. IMPRESSION: 1. Diffuse bladder wall thickening with adjacent edema suggestive ofcystitis. 2. No hydronephrosis or visible urolithiasis. 3. There are technically indeterminate right renal cysts, not wellevaluated. Further evaluation with MRI of the abdomen with/withoutcontrast is recommended on a nonemergent basis within the near future. 4. There are 1 mm and 2 mm nonobstructing right renal calculi. 5. Extensive colonic diverticulosis without visible secondary evidence ofacute diverticulitis. 6. Cardiomegaly. Mild pulmonary vascular congestion. Small right pleuraleffusion. 7. Chronic appearing avulsion injury of the left hamstring origin. Thereis partial tendinous retraction with associated calcification. 8. There is a noncontrast appearance of the abdomen and pelvis. Novisible intravenous contrast. Physical examination of the patient forsigns of contrast extravasation at the injection site is recommended. Ordered By: ALONZO TORRES Interpreted By: Yordan Ang DO, 05/28/2024 5:41 PM us Alonzo Torres MD CT Final R esult * (ABNORMAL) URINALYSIS (05/28/2024 4:37 PM CDT) SPECIMEN TYPE URINE CLEAN CATCH 05/28/2024 4:41 PM CDT [facility] COLOR (U) LIGHT ORANGE 05/28/2024 5:19 PM CDT [facility] TRANSPARENCY CLEAR 05/28/2024 5:19 PM CDT [facility] SPECIFIC GRAVITY (U) 1.016 1.001 - 1.030 05/28/2024 5:19 PM CDT [facility] U PH 6.5 5.0 - 9.0 05/28/2024 5:19 PM CDT [facility] LEUKOCYTES (U) 75(A) NEGATIVE 05/28/2024 5:19 PM CDT [facility] NITRITES NEGATIVE NEGATIVE 05/28/2024 5:19 PM CDT [facility] PROTEIN RANDOM (U) 300(H) <30 MG/DL 05/28/2024 5:19 PM CDT [facility] GLUCOSE (U) NORMAL NORMAL MG/DL 05/28/2024 5:19 PM CDT [facility] KETONES MG/DL (U) NEGATIVE NEGATIVE MG/DL 05/28/2024 5:19 PM CDT [facility] UROBILINOGEN NORMAL NORMAL MG/DL 05/28/2024 5:19 PM CDT [facility] BILIRUBIN (U) NEGATIVE NEGATIVE MG/DL 05/28/2024 5:19 PM CDT [facility] BLOOD (U) 3+(A) NEGATIVE 05/28/2024 5:19 PM CDT [facility] WBC/HPF >100(H) <6 /HPF 05/28/2024 5:19 PM CDT [facility] RBC/HPF >100(H) <6 /HPF 05/28/2024 5:19 PM CDT [facility] URINE SPECIMEN OBTAINED BY CLEAN CATCH PROCEDURE / Unknown 05/28/2024 4:37 PM CDT us Jones Justice NP URINE ORDERABLES Final Result Performing Organization Address City/[facility] Co de Phone Number [facility] [address] [place] [address], [place] [phone] * CULTURE URINE (05/28/2024 4:37 PM CDT) SPEC DESCRIPTION URINE CLEAN CATCH 05/28/2024 4:42 PM CDT [facility] SPECIAL REQUESTS NO SPECIAL REQUEST 05/28/2024 4:42 PM CDT [facility] CULTURE RESULT NO GROWTH 2 DAYS 05/30/2024 9:20 AM CDT [facility] URINE SPECIMEN OBTAINED BY CLEAN CATCH PROCEDURE / Unknown 05/28/2024 4:37 PM CDT 05/28/2024 4:43 PM CDT us Jones Justice NP MICROBIOLOGY - GENERAL ORDERAB LES Final Result Performing Organization Address City/State/[facility] Co de Phone Number [facility] [address] [place] [address], [place] [phone] * (ABNORMAL) PARTIAL THROMBOPLASTIN TIME,PTT (05/28/2024 4:37 PM CDT) PTT 43.1(H) 25.1 - 36.5 SEC 05/28/2024 5:23 PM CDT [facility] 05/28/2024 4:37 PM CDT us Jones Justice NP LABORATORY Final Result Performing Organization Address [facility] Co de Phone Number [facility] [address] [place] [address], [place] [phone] * (ABNORMAL) PROTIME/INR, VENOUS (05/28/2024 4:37 PM CDT) Only the most recent of4 resultswithin the time period is included. PROTIME 42.3(H) 10.2 - 12.9 SEC 05/28/2024 5:23 PM CDT [facility] INR 3.8 05/28/2024 5:23 PM CDT [facility] Comment: Recommended INR Therapeutic Goals: 2.0-3.0 Routine Therapy 2.5-3.5 Mechanical Prosthetic Valves (High Risk) 05/28/2024 4:37 PM CDT us Jones Justice NP LABORATORY Final Result Performing Organization Address [facility] Co de Phone Number [facility] [address] [place] [address], [place] [phone] * (ABNORMAL) COMPREHENSIVE METABOLIC PANEL (05/28/2024 4:37 PM CDT) Only the most recent of2 resultswithin the time period is included. [facility] GLUCOSE 92 70 - 99 MG/DL 05/28/2024 5:12 PM CDT [facility] BUN 19(H) 7 - 18 MG/DL 05/28/2024 5:12 PM CDT [facility] CREATININE S/P/B 1.07(H) 0.55 - 1.02 MG/DL 05/28/2024 5:12 PM CDT [facility] SODIUM S/P/B 132(L) 136 - 145 MMOL/L 05/28/2024 5:12 PM CDT [facility] POTASSIUM S/P/B 4.0 3.5 - 5.1 MMOL/L 05/28/2024 5:12 PM CDT [facility] CHLORIDE S/P/B 94(L) 97 - 115 MMOL/L 05/28/2024 5:12 PM CDT [facility] CO2 30.7 21 - 32 MMOL/L 05/28/2024 5:12 PM CDT [facility] CALCIUM S/P/B 8.6 8.5 - 10.1 MG/DL 05/28/2024 5:12 PM CDT [facility] BILIRUBIN TOTAL S/P/B 0.5 0.2 - 1.2 MG/DL 05/28/2024 5:12 PM CDT [facility] Comment: THIS ASSAY IS NOT RECOMMENDED FOR PATIENTS UNDERGOING TREATMENT WITH ELTROMBOPAG DUE TO THE POTENTIAL FOR FALSELY ELEVATED RESULTS. TOTAL PROTEIN S/P/B 6.9 6.4 - 8.2 G/DL 05/28/2024 5:12 PM CDT [facility] ALBUMIN S/P/B 3.1(L) 3.4 - 5.0 G/DL 05/28/2024 5:12 PM CDT [facility] AST 16 15 - 37 U/L 05/28/2024 5:12 PM CDT [facility] ALT 17 14 - 55 U/L 05/28/2024 5:12 PM CDT [facility] ALKALINE PHOSPHATASE S/P/B 117 50 - 136 U/L 05/28/2024 5:12 PM CDT [facility] ANION GAP 7.3 2 - 10 MMOL/L 05/28/2024 5:12 PM CDT [facility] BUN CREATININE RATIO 17.8 6 - 26 05/28/2024 5:12 PM CDT [facility] A/G RATIO 0.8(L) 1.0 - 2.0 RATIO 05/28/2024 5:12 PM CDT [facility] GFR ESTIMATE 51(L) >90 ML/MIN/1.7 3 M2 05/28/2024 5:12 PM CDT [facility] Comment: NOTE: eGFR is not calculated for patients <18 years of age or gender unknown. This is an estimated GFR calculation using the new CKD EPI creatinine equation without race and so does not require a correction factor for race. This estimated GFR should not be used for calculating drug doses. 05/28/2024 4:37 PM CDT Jones Justice NP LABORATORY Final Result [facility] [address] [place] [address], [place] [phone] * (ABNORMAL) CBC W/DIFF AUTOMATED (05/28/2024 4:37 PM CDT) Only the most recent of4 resultswithin the time period is included. WBC 6.08 4.5 - 11.0 x10'3/uL 05/28/2024 4:57 PM CDT [facility] RBC 4.19(L) 4.20 - 5.40 x10'6/uL 05/28/2024 4:57 PM CDT [facility] HGB 12.1 12.0 - 16.0 G/DL 05/28/2024 4:57 PM CDT [facility] HCT 37.9(L) 38.0 - 48.0 % 05/28/2024 4:57 PM CDT [facility] MCV 90.5 81.0 - 99.0 FL 05/28/2024 4:57 PM CDT [facility] MCH 28.9 27.0 - 31.0 PG 05/28/2024 4:57 PM CDT [facility] MCHC 31.9(L) 32.0 - 36.0 G/DL 05/28/2024 4:57 PM CDT [facility] RDW 15.4(H) 11.5 - 14.5 % 05/28/2024 4:57 PM CDT [facility] PLT 351 130 - 400 x10'3/uL 05/28/2024 4:57 PM CDT [facility] MPV 10.7 9.3 - 12.2 FL 05/28/2024 4:57 PM CDT [facility] DIFFERENTIAL TYPE AUTOMATED DIFFERENTIAL 05/28/2024 4:57 PM CDT [facility] NEUTROPHILS % 73.4 % 05/28/2024 4:57 PM CDT [facility] LYMPHOCYTES % 11.5 % 05/28/2024 4:57 PM CDT [facility] MONOCYTES % 10.9 % 05/28/2024 4:57 PM CDT [facility] EOSINOPHILS 2.6 % 05/28/2024 4:57 PM CDT [facility] BASOPHILS 0.8 % 05/28/2024 4:57 PM CDT [facility] IMMATURE GRANS % 0.8 % 05/29/19 4:57 PM CDT [facility] ABS. NEUTROPHILS 4.46 1.80 - 7.70 x10'3/uL 05/28/2024 4:57 PM CDT [facility] ABS. LYMPHOCYTES 0.70(L) 1.00 - 4.80 x10'3/uL 05/28/2024 4:57 PM CDT [facility] ABS. MONOCYTES 0.66 0.24 - 0.86 x10'3/uL 05/28/2024 4:57 PM CDT [facility] ABS. EOSINOPHILS 0.16 0.04 - 0.36 x10'3/uL 05/28/2024 4:57 PM CDT [facility] ABS. BASOPHILS 0.05 0.01 - 0.08 x10'3/uL 05/28/2024 4:57 PM CDT [facility] ABS. IMMATURE GRANULOCYTES 0.05 0.00 - 0.49 x10'3/uL 05/28/2024 4:57 PM CDT [facility] 05/28/2024 4:37 PM CDT us Jones Justice NP LABORATORY Final Result [facility] [address] [place] [address], [place] [phone] * (ABNORMAL) BASIC METABOLIC PANEL (05/24/2024 6:00 AM CDT) Only the most recent of2 resultswithin the time period is included. GLUCOSE 96 70 - 99 MG/DL 05/24/2024 6:28 AM CDT [facility] BUN 14 7 - 18 MG/DL 05/24/2024 6:28 AM T [facility] CREATININE S/P/B 0.71 0.55 - 1.02 MG/DL 05/24/2024 6:28 AM CDT [facility] SODIUM S/P/B 135(L) 136 - 145 MMOL/L 05/24/2024 6:28 AM T [facility] POTASSIUM S/P/B 4.1 3.5 - 5.1 MMOL/L 05/24/2024 6:28 AM T [facility] CHLORIDE S/P/B 101 97 - 115 MMOL/L 05/24/2024 6:28 AM T [facility] CO2 29.4 21 - 32 MMOL/L 05/24/2024 6:28 AM T [facility] CALCIUM S/P/B 8.8 8.5 - 10.1 MG/DL 05/24/2024 6:28 AM T [facility] ANION GAP 4.6 2 - 10 MMOL/L 05/24/2024 6:28 AM T [facility] BUN CREATININE RATIO 19.8 6 - 26 05/24/2024 6:28 AM T [facility] GFR ESTIMATE 83(L) >90 ML/MIN/1.7 3 M2 05/24/2024 6:28 AM T [facility] Comment: NOTE: eGFR is not calculated for patients <18 years of age or gender unknown. This is an estimated GFR calculation using the new CKD EPI creatinine equation without race and so does not require a correction factor for race. This estimated GFR should not be used for calculating drug doses. 05/24/2024 6:00 AM CDT us Mere Delaney MD LABORATORY Final Result [facility] [address] [place] [address], [place] [phone] * (ABNORMAL) POCT glucose (05/23/2024 7:42 PM CDT) Only the most recent of5 resultswithin the time period is included. GLUCOSE POC 137(H) 70 - 99 mg/dL 05/23/2024 9:28 PM CDT [facility] 05/23/2024 7:42 PM CDT Result [facility] Sloan Arora MD POCT ORDERABLES - DEVICE Fin al Result [facility] [address] [place] [address], [place] [phone] * OUTSIDE PT/INR (SCAN ORDER) (05/07/2024) Only the most recent of4 resultswithin the time period is included. 05/07/2024 Result [facility] Scanned SCANNING Final Resu lt * OUTSIDE LAB (SCAN ORDER) (05/07/2024) Only the most recent of14 resultswithin the time period is included. 05/07/2024 [facility] Scanned SCANNING Final Resu lt * IMAGE GENERIC (05/06/2024) Only the most recent of27 resultswithin the time period is included. Anatomical Region Laterality Modality Other 05/06/2024 Result [facility] Scanned SCANNING Final Resu lt * OUTSIDE LAB COVID-19 (05/04/2024) CORONAVIRUS SARS COV 2 PCR (RESP) NOT DETECTED NOT DETECTED [facility] 05/04/2024 [facility] Scanned SCANNING Final Resu lt [facility] * PROCEDURE GENERIC (SCAN ORDER) (05/04/2024) 05/04/2024 [facility] Scanned SCANNING Final Resu lt * PROCEDURE GENERIC (SCAN ORDER) (05/04/2024) 05/04/2024 Result [facility] Scanned SCANNING Final Resu lt * PROCEDURE GENERIC (SCAN ORDER) (05/04/2024) 05/04/2024 Result [facility] Scanned SCANNING Final Resu lt * VASCULAR LAB GENERIC (SCAN ORDER) (04/12/2024) 04/12/2024 Result [employer] [facility] Scanned SCANNING Final Resu lt from Last 3 Months Insurance Advance Directives * Full Code (Latest Code Status on File) Date Activated Date Inactivated Comments 05/22/2024 9:35 PM 05/24/2024 4:45 PM Care Teams Revenue Investigator Relationship Specialty Start Date End Date Paulina Houser NP [address] [place] [phone] PCP - General Nurse Practitioner Family 05/23/24
--- OUTSIDE RECORDS SUMMARY | 2024-07-06 08:03 | XMS_ITS | Clinical Summary ---
Author Organization [facility] Address [address] [place] [address] Care Team Providers Care Liberal Arts Dean Name Role Phone Brandon Roberts MD Primary Care Provider [phone] Source Comments [facility],non-owned Affiliates and Associated Physician Practices is amultiple site organization consisting of ambulatory clinics and hospital sitesin [place], [place], [place] and [place]. This disclosure is being madepursuant to the Care Everywhere program and may not contain all information available regarding this patient. Last updated 17.[facility] Allergies No known active allergies Medications * Be aware that medications may not be up to date on this document. Alwaysverify current medications with the patient. 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 Gender Identity Not on file Sexual Orientation [...] 3:47 PM CDT Height 161.3 cm (5' 3.5) 06/29/2017 3:47 PM CDT Body Mass Index [...] VACCINE ( - 2023-2 5 season) 2023 DEPRESSION SCREENING 02/19/2024 MEDICARE AWV CALENDAR YEAR 2024 INFLUENZA VACCINE (Season Ended) 2024 HEPATITIS B VACCINE Aged Out No [...] patient's age to complete this topic Insurance [facility] MANAGED MEDICARE ADV [facility] MANAGED MEDICARE ADV Care Teams Liberal Arts Dean Relationship Specialty Start Date End Date Brandon Roberts MD [address] [place] [address] PCP - General 11/12/08
--- OUTSIDE RECORDS SUMMARY | 2024-07-06 08:03 | XMS_ITS | Referral Summary ---
Author Organization [facility] Address [address] [place] [address] Care Team Providers Care Route Sales Representative Name Role Phone Oscar Carroll MD Unavailable + Oleg Marrero MD Unavailable Paulina Houser NP Primary Care Provider [phone] Encounters Date Type Department Care Team Description 06/04/2024 Telephone [facility] Medical [facility] Cardiology [address] [place] [phone] Caridad Self MD 06/01/2024 Telephone [facility] Cardiology [address] [place] [phone] Caridad Self MD 05/29/2024 Anticoagulation Visit [facility] Cardiology [address] [place] [phone] Oleg Mathis RN Atrial fibrillation, unspecified type (HCC) (Primary Dx) 05/28/2024 Telephone [facility] Cardiology [address] [place] [phone] Caridad Self MD 05/27/2024 Anticoagulation Visit [facility] Cardiology [address] [place] [address] [place] [phone] Sherrie Page RN Atrial fibrillation, unspecified type (HCC) (Primary Dx) 05/27/2024 Telephone [place] [address] [place] [phone] Caridad Self MD 05/22/2024 Anticoagulation Visit [place] [address] [place] [phone] Teresa Snowden RN Atrial fibrillation, unspecified type (HCC) (Primary Dx) 05/22/2024 Telephone [place] [address] [place] [phone] Caridad Self MD 05/18/2024 Anticoagulation Visit [place] [address] [place] [phone] Enedina Zepeda RN Atrial fibrillation, unspecified type (HCC) (Primary Dx) 05/15/2024 Anticoagulation Visit [place] [address] [place] [phone] Teresa Snowden RN Atrial fibrillation, unspecified type (HCC) (Primary Dx) 05/13/2024 Anticoagulation Visit [place] [address] [place] [phone] Teresa Snowden RN Atrial fibrillation, unspecified type (HCC) (Primary Dx) 05/11/2024 Telephone [place] [address] [place] [phone] Caridad Self MD 05/07/2024 Orders Only [place] [address] [place] [phone] Caridad Self MD 04/30/2024 Orders Only [facility] Health Information Management [address] [place] [phone] Caridad Self MD 04/30/2024 11:35 AM CDT Ancillary Procedure [facility] Medical Group Cardiology [address] [place] [phone] 04/30/2024 11:00 AM CDT Office Visit [facility] Medical [facility] Cardiology [address] [place] [phone] Caridad Self MD Persistent atrial fibrillation (HCC) (Primary Dx); Chronic anticoagulation; Primary hypertension; Mixed hyperlipidemia from Last 3 Months Allergies No known [...] 1 tablet (75 mcg total) by mouth morning nanny before breakfast 0 11/29/19 18 Active dupilumab [...] MOUTH DAILY 90 tablet 03/19/19 25 Active metoprolol XL (TOPROL-XL) 50 mg extended release tablet TAKE 1 TABLET(50 MG) BY MOUTH DAILY 90 tablet 3 03/19/19 25 Active furosemide (LASIX) 40 mg tablet TAKE 1 TABLET(40 MG) BY MOUTH DAILY 90 tablet 03/19/19 25 Active acetaminophen (TYLENOL) 500 mg [...] (07/20/2020): Added automatically from request for surgery [id number] History of colon cancer 10/29/2019 Clostridium difficile infection 10/07/2019 Acute postoperative abdominal pain 09/23/2019 Malignant neoplasm of hepatic flexure 09/09/2019 Overview (09/09/2019): Added automatically from request for surgery [id number] Malignant neoplasm of transverse colon 0 Other [...] on file Legal 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 Gender Identity Female 10/28/2019 5:35 PM [...] 0.90 - 1.10 EXTERNAL LAB Blood 05/29/2024 us Historical Provider LAB BLOOD ORDERABLES Mariam l Result EXTERNAL LAB * (ABNORMAL) Protime-INR (05/27/2024) INR 2.70(A) 0.90 - 1.10 EXTERNAL LAB Blood Result [facility] Provider MD LAB BLOOD ORDERABLES Mariam l Result Performing Organization Address City/[facility]/ZIP Co de Phone Number EXTERNAL LAB * (ABNORMAL) Protime-INR (05/22/2024) INR 11.10(A) 0.90 - 1.10 EXTERNAL LAB Blood Result [facility] Provider MD LAB BLOOD ORDERABLES Mariam l Result Performing Organization Address [facility]/ZIP Co de Phone Number EXTERNAL LAB * (ABNORMAL) Protime-INR (05/15/2024) Pathologist [facility] INR 2.80(A) 0.90 - 1.10 EXTERNAL LAB Blood Result [facility] Provider MD LAB BLOOD ORDERABLES Mariam l Result Performing Organization Address [facility]/ZIP Co de Phone Number EXTERNAL LAB * (ABNORMAL) Protime-INR (05/15/2024) [facility] INR 2.80(A) 0.90 - 1.10 EXTERNAL LAB Blood Result [facility] Provider MD LAB BLOOD ORDERABLES Edit ed Result - Final Performing Organization Address [facility]/ZIP Co de Phone Number EXTERNAL LAB * (ABNORMAL) Protime-INR (05/13/2024) [facility] INR 2.30(A) 0.90 - 1.10 [facility] Blood Result [facility] Provider MD LAB BLOOD ORDERABLES Mariam l Result Performing Organization Address [facility] Co de Phone Number [facility] * Cardiology Document Scan (05/02/2024 4:34 PM CDT) Anatomical Region Laterality Modality Other Result [facility] Blake Iraheta MD CV CARDIAC SERVICES PROCEDURES F inal Result * Cardiology Document Scan (05/01/2024 4:32 PM CDT) Anatomical Region Laterality Modality Other us Caridad Self MD CV CARDIAC SERVICES PRO CEDURES Final Result * 48 HR Holter Monitor (04/30/2024 11:30 AM CDT) Anatomical Region Laterality Modality Electrocardiogra phy Narrative 05/14/2024 12:39 PM CDT Images from the original result were not included. AMBULATORY NETWORKER REPORT Patient Name: Kanchan Abbott Date of [...] 102 beats per minute. Caridad Self M.D., [facility] 05/14/24 Procedure Note Caridad Self MD - 05/14/2024 Images from the original note were not included. AMBULATORY NETWORKER REPORT Patient Name: Kanchan Abbott Date of [...] of 102 beatsper minute. Caridad Self M.D., [facility] 05/14/24 Caridad Self MD CV CARDIAC SERVICES PRO CEDURES Final Result * Electrocardiogram Report (04/30/2024 11:28 AM CDT) Caridad Self MD ECG ORDERABLES Final R esult * SCAN - RADIOLOGY/IMAGING (04/30/2024) Anatomical Region Laterality Modality Other Caridad Self MD Final R esult from Last 3 Months Insurance U[employer] MEDICARE ADVANTAGE [facility] MEDICARE ADVANTAGE Advance Directives For more information, please contact: [phone] * Full Code (Latest Code Status on [...] Agents on File Name Relationship Healthcare Agent [facility] Communication Dafne Manzo Daughter Health Care Agent Care Teams Route Sales Representative Relationship Specialty Start Date End Date Paulina Houser NP [address] [place] [address] PCP - General Family Medicine 03/05/24 Oscar Carroll MD [address] [place] [address] Director Database Gastroenterology 09/03/19 Oleg Marrero MD [address] [place] [address] Surgeon Colon and Rectal Surgery 10/13/19
--- OUTSIDE RECORDS SUMMARY | 2024-07-06 08:03 | XMS_ITS | Continuity of Care Document ---
Author Organization [facility] Address [address] [place] [address] [address] [place] [address] Phone Care Team Providers Care Program Planner Name Role Phone Neelima London Unavailable Unavailable Procedures Procedure Date Eye Exam & Treatment Refraction Office/outpatient Visit, Est No Script Eye Exam Established Pt No Script Eye Exam Established Pt Advance Directives Directive Yes / No Effective Date File Name No Information Encounters Encounter Description Practice Location Reason(s) For Visit Diagnoses Date Provider Providers Copied on Encounter [facility], [address] [place] [address] [address], [place], [place], [id number], [place] tel:[phone] [facility] No Information 2-201 0 Lita Ortez. [address], [place], [place], [facility], . tel:[phone] Office/outpat ient Visit, Est [facility], [address] [place] [address] [address], [place], [place], [id number], [place] tel:[phone] [facility] No Information Sep-0 9-200 9 Ev Barrow. [address] [facility] [address], [place], [place], [facility], . tel:[phone] [facility], [address] [place] [address] [address], [place], [place], [id number], [place] tel:[phone] [facility] No Information Sep-0 2-200 9 Ev Barrow. [address], [place], [address], [place]. tel:[phone] [facility] Eye [facility], [address], [place], [place], [id number], [place] tel:[phone] [facility] No Information 8 Smita Chopra. [address], [place], [address], [place]. tel:[phone] Family History Family Member Type Diagnosis Age At Onset No Information Payers Payer name Insurance type Covered alliance party ID Natachamaxine lornaobinna(s) [employer] Plan CI [id number] Social History Type Description Quantity Date Captured [...]
--- NOTE | 2024-07-28 09:03 | P.SLEEP_ITS ---
Sleep Study Date of Study: 07/06/24 Ordering Provider: Fransico BeasleyMD Interpreting Physician: Hilda Munoz DO Sleep Study Type: Polysomnogram Height: 1.6 m Weight: 86.183 kg Body Mass Index: 33.6 [place]: 9 Reason for Sleep Study Previously diagnosed with mild sleep apnea in 2009. Stopped using CPAP due to mask issues. Sleep History The patient is an 88-year-old female that had a sleep study ordered by the Pulmonary group for evaluation of sleep apnea. The patient denies awakening from sleep short of breath. She denies awakening at night with heartburn, belching or cough. She frequently snores but is rarely loud enough that others complain. She constantly has trouble sleeping when she has a cold. She denies waking up gasping for air throughout the night. She denies having breathing problems at night observed by herself or others. She denies sweating excessively at night. She denies having heart palpitations or irregular heartbeats during the night. She occasionally falls asleep during the day but never while driving. She denies sleep paralysis, cataplexy and hypnagogic/ hypnopompic hallucinations. She denies having trouble at school or work due to sleepiness. She denies feeling afraid of going to sleep. She rarely has nightmares. She occasionally remembers her dreams. She occasionally has thoughts racing through her mind. She occasionally feels sad or depressed. She frequently has anxiety. She denies having muscular tension. She denies noticing parts of her body jerk. She denies kicking during the night. She denies having crawling and aching feelings in her legs but rarely has leg pain during the night. She denies grinding her teeth during sleep and denies awakening with morning jaw pain. She is rarely bothered by pain during the day but never awakened by pain during the night. She occasionally wakes up feeling stiff in the morning. She denies waking up with sore or achy muscles. She rarely wakes up with pain in the neck, spine or other joints. She goes to bed between 9-10 p.m. on both weekdays and weekends. It takes her 30 minutes or less to fall asleep. She wakes up twice throughout the night to urinate and is able to fall back asleep relatively quickly. She wakes up between 5-6 a.m. on both weekdays and weekends. She typically gets 6 hours of sleep per night. She will stay in bed for 30 minutes after waking up in the morning. She currently lives alone. She denies consuming any caffeinated beverages within 2 hours of bedtime. She denies engaging in physical exercise before bedtime. She will watch television before falling asleep. She will occasionally take naps in afternoon or the evening and they are refreshing. She consumes 2 cups of caffeinated beverage per day. She is a former smoker. She denies alcohol and recreational drug use. 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 Osteopenia Degenerative arthritis of knee, bilateral Basal cell carcinoma Vertigo Hearing loss Hypothyroidism Varicose vein of leg COPD (chronic obstructive pulmonary disease) GERD (gastroesophageal reflux disease) Frequent headaches Afib Hyperlipidemia Hypertension Surgical History Surgical History History of colectomy H/O arthroscopy of knee both knees, meniscectomy History of foot surgery History of tonsillectomy Family History Family History Mother Family history of malignant neoplasm of breast in first degree relative Father Family history of throat cancer Family history of malignant neoplasm Other Family history of arthritis Social History Social History Social History: Patient stated she socially smokes. Code status: DNR/DNI per patient request Surrogate decision maker: Shannan Melchor (daughter) Smoking packs per day: 1 Smoking cigarettes per day: 20.0 Years smoked: 30 Smoking pack-years: 30.00 Smoking status: Former smoker Second hand tobacco smoke exposure: Yes Alcohol intake: never Substance use: never Substance use type: does not use Do You Feel Safe in your Home?: Yes Lack of Transportation: No Lack of Food: Never True Current Housing: I Have Housing Concerned About Future Housing: No Difficulty Paying Gas/Electric Bills: No Difficulty Paying for Meds: No Currently Unemployed: No Education: High School Diploma/GED Difficulty w/ Childcare or Family Care: No Living arrangements: alone Occupation/Education: retired Gender identity (if verbalized by the patient): Female Spiritual care concerns: No Medications Home Medications ?Medication ?Instructions ?Recorded ?Confirmed ?Type dupilumab 300 mg/2 mL subcutaneous 300 mg subcut .biweekly 03/02/19 05/20/24 History syringe (Dupixent) ascorbic acid (vitamin C) 1,000 mg 1 g PO DAILY 02/28/22 05/20/24 History capsule calcium carbonate (Calcium 600) 600 mg PO DAILY 05/07/22 05/20/24 History fluticasone 100 mcg-salmeterol 50 1 inh inhalation Q12H #60 ea 01/20/24 05/20/24 Rx mcg/dose blistr powdr for inhalation (Flor Meredith) atorvastatin 40 mg tablet 40 mg PO DAILY #30 tabs 01/25/24 05/20/24 Rx metoprolol succinate 50 mg 50 mg PO QAM #30 tabs 01/25/24 05/20/24 Rx tablet,extended release 24 hr potassium chloride 20 mEq 20 meq PO BID 03/27/24 05/20/24 History tablet,extended release apixaban 2.5 mg tablet (Eliquis) 2.5 mg PO BID #60 tabs 04/22/24 05/20/24 Rx fluticasone fur. 100 mcg-umeclid 1 inh inhalation DAILYRT #1 ea 04/22/24 05/20/24 Rx 62.5 mcg-vilant 25 mcg inhalat.powder (Trelegy Ellipta) levalbuterol HCl 1.25 mg/3 mL 0.63 mg (1.512 mL) inhalation 04/22/24 05/20/24 Rx solution for nebulization Q6HRT PRN Shortness Of Breath Or Wheezing #90 mL lidocaine 5 % topical patch 1 patch transdermal DAILY #15 ea 04/22/24 05/20/24 Rx (Lidoderm) loratadine 10 mg tablet (Allergy 10 mg PO DAILY #30 tabs 04/22/24 05/20/24 Rx Relief (loratadine)) magnesium oxide 400 mg (241.3 mg 400 mg PO QAM #30 tabs 04/22/24 05/20/24 Rx magnesium) tablet sennosides 8.6 mg-docusate sodium 2 tab-cap (2 x 8.6-50 mg) PO BID 04/22/24 05/20/24 Rx 50 mg tablet (Senokot-S) PRN Constipation #10 tabs furosemide 40 mg tablet 40 mg PO BID 30 days #60 tabs 05/08/24 05/20/24 Rx amiodarone 200 mg tablet 200 mg PO Q24H #90 tabs 05/15/24 05/20/24 Rx levothyroxine 75 mcg tablet See Rx Instructions .Route 05/15/24 05/20/24 Rx .COMPLEX #90 tabs buspirone 10 mg tablet 10 mg PO BID #180 tabs 05/20/24 05/20/24 Rx trazodone 50 mg tablet 50 mg PO QHS #90 tabs 05/20/24 05/20/24 Rx pantoprazole 40 mg tablet,delayed See Rx Instructions .Route 06/12/24 Rx release .COMPLEX #90 tabs memantine 10 mg tablet (Namenda) 10 mg PO QPM #30 tabs 07/02/24 Rx Sleep Procedure A full night polysomnogram using the PredicSis multi-channel system recorded the standard physiologic parameters including EEG, EOG, submentalis EMG, anterior tibialis EMG, EKG, body position, nasal and oral airflow using nasal pressure sensor and thermistor.? Respiratory parameters of chest and abdominal movements were recorded with Respiratory Inductance Plethysmography belts. Oxygen saturation was recorded by pulse oximetry. Video monitoring was also performed. Sleep stages, periodic limb movements, and EEG arousals were scored in 30 second epochs according to the criteria of the AASM Scoring Manual. The Apnea-Hypopnea Index was calculated using CMS guidelines for definition of hypopnea with 4% O2 desaturations while scoring respiratory events. Sleep Architecture The total recording time was 454.1 minutes.? The total sleep time was 309.5 minutes. Sleep latency was 0.1 minutes. REM latency was 155.5 minutes. Sleep efficiency was 68.2%. The patient had 48 awakenings for an awakening index of 9.3. Wake after sleep onset time was 144.0 minutes. The patient spent 35.0 minutes, 11.3% of total sleep time in Stage N1. The patient spent 240.5 minutes, 77.7% in Stage N2. The patient spent 0.5 minutes, 0.2% in Stage N3. The patient spent 33.5 minutes, 10.8% in Stage REM sleep. Respiratory Analysis The patient had 22 hypopneas and 20 obstructive apneas for an overall Apnea Hypopnea Index of 8.1. The REM Apnea Hypopnea Index was 25.1. The NREM Apnea Hypopnea Index was 6.1. The patient had a Central Apnea Hypopnea Index of 0. There was no evidence of Tino-Sorenson Respirations. Arousals There were 96 total arousals for an arousal index of 18.6. There were 58 spontaneous arousals for an index of 11.2. There were 14 arousals due to respiratory events for an index of 2.7. There were 20 arousals due to periodic limb movements for an index of 3.9.? There were 4 arousals due to isolated limb movements for an index of 0.8. Periodic Limb Movements The patient had 7 isolated limb movements with an index of 1.4. The patient had 367 periodic limb movements with an index of 71.1, which is elevated (normal < 15). Patient had a total of 374 limb movements with a total limb movement index of 72.5. Oximetry Data The patient had an average oxygen saturation of 88.0% in sleep with a minimum oxygen saturation of 66.0% and a maximum oxygen saturation of 97.0%. The patient had 49 oxygen desaturations that were 4% or greater resulting in an Oxygen Desaturation Index of 9.5.? The patient spent 161.6 minutes, 38.3% of total sleep time with an oxygen saturation below 88%. Snoring Profile Mild snoring was present throughout the study. Cardiac Profile The EKG showed normal sinus rhythm. U waves were present throughout the study. The patient had an average pulse rate of 52.2 bpm with a minimum pulse of rate of 40.0 bpm and a maximum pulse rate of 75.0 bpm.? EEG Profile No signs of seizure activity seen. Assessment and Plan Assessment and Plan (1) MARC and COPD overlap syndrome: Code(s): G47.33 - Obstructive sleep apnea (adult) (pediatric); J44.9 - Chronic obstructive pulmonary disease, unspecified Status: Acute Assessment and Plan: The patient had an overall AHI of 8.1 with desaturation down to 66%. This is consistent with mild sleep apnea. Due to the patient's COPD, she qualifies for treatment. The patient spent 161.6 minutes, 38.3% of total recording time with an oxygen saturation less than 80%. Supplemental oxygen was started during the study due to persistent hypoxemia in the absence of respiratory events. The patient was started on 1 L of supplemental oxygen and titrated to 3 L by the end of the study. The patient's oxygen saturation still dropped below 88% despite being on 3L of supplemental oxygen. I recommend that the patient have a CPAP Titration study with the use of a hypnotic to ensure we obtain enough sleep data and find an optimal pressure setting. Until she is started on PAP therapy, I recommend that she use 4L of supplemental oxygen at bedtime. Data The data obtained during this sleep study is adequate for interpretation. Certification This sleep study has been reviewed by a board certified sleep medicine physician.
[2024-07-28 11:39] VITALS: BMI 33.6
== END 2024-07-07 07:00 | disposition home or self-care (01) ==
LOC: ANHCSM 08:01
PROVIDERS: PCP Nurse Practitioner Family; Visit Provider Student in an Organized Health Care Education/Training Program
DX: G47.33 Obstructive sleep apnea (adult) (pediatric) (principal); J44.9 Chronic obstructive pulmonary disease, unspecified
CPT/HCPCS: 95810; 95811

== ENCOUNTER 2024-07-20 08:40 | Outpatient (CLI) | payer MEDICARE, SELFPAY ==
--- OUTSIDE RECORDS SUMMARY | 2024-07-20 08:54 | XMS_ITS | Clinical Summary ---
Author Organization [facility] Address [address] [place] [address] Care Team Providers Care Pickling Operator Name Role Phone Oscar Carroll MD Unavailable + Oleg Marrero MD Unavailable [phone] Paulina Houser NP Primary Care Provider [phone] Allergies No known active allergies Medications amLODIPine [...] 1 tablet (75 mcg total) by mouth asl interpreter before breakfast 0 11/29/19 18 Active dupilumab [...] (07/20/2020): Added automatically from request for surgery [id number] History of colon cancer 10/29/2019 Clostridium difficile infection 10/07/2019 Acute postoperative abdominal pain 09/23/2019 Malignant neoplasm of hepatic flexure 09/09/2019 Overview (09/09/2019): Added automatically from request for surgery [id number] Malignant neoplasm of transverse colon 0 Other atopic dermatitis 02/26/2018 Pruritus, unspecified 02/26/2018 Venous barkley of lip 02/26/2018 Encounters Date Type Department Care Team Description 06/04/2024 Telephone [facility] Medical Group Cardiology [address] [place] [address] Caridad Self MD 06/01/2024 Telephone [facility] Group Cardiology [address] [place] [address] Caridad Self MD 05/29/2024 Anticoagulation Visit [facility] Medical [facility] Cardiology [address] [place] [address] Oleg Mathis RN Atrial fibrillation, unspecified type (HCC) (Primary Dx) 05/28/2024 Telephone [facility] Cardiology [address] [place] [address] [place] [address] Caridad Self MD 05/27/2024 Anticoagulation Visit [place] [address] [place] [address] Sherrie Page RN Atrial fibrillation, unspecified type (HCC) (Primary Dx) 05/27/2024 Telephone [place] [address] [place] [address] Caridad Self MD 05/22/2024 Anticoagulation Visit [place] [address] [place] [address] Teresa Snowden RN Atrial fibrillation, unspecified type (HCC) (Primary Dx) 05/22/2024 Telephone [place] [address] [place] [address] Caridad Self MD 05/18/2024 Anticoagulation Visit [place] [address] [place] [address] Enedina Zepeda RN Atrial fibrillation, unspecified type (HCC) (Primary Dx) 05/15/2024 Anticoagulation Visit [place] [address] [place] [address] Teresa Snowden RN Atrial fibrillation, unspecified type (HCC) (Primary Dx) 05/13/2024 Anticoagulation Visit [place] [address] [place] [address] Teresa Snowden RN Atrial fibrillation, unspecified type (HCC) (Primary Dx) 05/11/2024 Telephone [place] [address] [place] [address] Caridad Self MD 05/07/2024 Orders Only [facility] Medical Group Cardiology [address] [place] [address] Caridad Self MD 04/30/2024 11:35 AM CDT Ancillary Procedure [facility] Cardiology [address] [place] [address] 04/30/2024 11:00 AM CDT Office Visit [facility] Cardiology [address] [place] [address] [address] [place] [address] Caridad Self MD Persistent atrial fibrillation (HCC) (Primary Dx); Chronic anticoagulation; Primary hypertension; Mixed hyperlipidemia 04/30/2024 Orders Only [facility] Health Information Management [address] [place] [address] Caridad Self MD from Last 3 Months Immunizations Immunization Administration Dates Next Due Pneumococcal Conjugate PCV 13 12/02/2017 Surgical History Surgery Date Site/Laterality Comments [place] LIGJ DIVJ &/EXCJ VARICOSE VEIN CLUSTER 1 LEG Varicose Vein Ligation - (Added by TW Conv) [place] TONSILLECTOMY PRIMARY/SECONDARY <AGE 14 Tonsillectomy - (Added [...] on file 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 Gender Identity Female 10/28/2019 5:35 PM CDT [...] ORDERABLES Mariam l Result Performing Organization Address [facility] Co de Phone Number EXTERNAL LAB * (ABNORMAL) Protime-INR (05/22/2024) INR 11.10(A) 0.90 - 1.10 EXTERNAL LAB Blood Result [facility] Historical Provider MD LAB BLOOD ORDERABLES Mariam l Result Performing Organization Address City/[facility] Co de Phone Number EXTERNAL LAB * (ABNORMAL) Protime-INR (05/15/2024) INR 2.80(A) 0.90 - 1.10 EXTERNAL LAB Blood Result [facility] Provider MD LAB BLOOD ORDERABLES Mariam l Result Performing Organization Address [facility] de Phone Number EXTERNAL LAB * (ABNORMAL) Protime-INR (05/15/2024) INR 2.80(A) 0.90 - 1.10 EXTERNAL LAB Blood Result [facility] Provider MD LAB BLOOD ORDERABLES Edit ed Result - Final Performing Organization Address [facility] de Phone Number EXTERNAL LAB * (ABNORMAL) Protime-INR (05/13/2024) INR 2.30(A) 0.90 - 1.10 [facility] Blood Result [facility] Historical Provider MD LAB BLOOD ORDERABLES Mariam l Result Performing Organization Address City/[facility]/ZIP Co de Phone Number [facility] * Cardiology Document Scan (05/02/2024 4:34 PM CDT) Anatomical Region Laterality Modality Other Result [facility] Blake Iraheta MD CV CARDIAC SERVICES PROCEDURES F inal Result * Cardiology Document Scan (05/01/2024 4:32 PM CDT) Anatomical Region Laterality Modality Other Caridad Self MD CV CARDIAC SERVICES PRO CEDURES Final Result * 48 HR Holter Monitor (04/30/2024 11:30 AM CDT) Anatomical Region Laterality Modality Electrocardiogra phy Narrative 05/14/2024 12:39 PM CDT Images from the original result were not included. AMBULATORY NICKEL PLANT OPERATOR REPORT Patient Name: Kanchan Abbott Date of [...] 102 beats per minute. Caridad Self M.D., [facility] 05/14/24 Procedure Note Caridad Self MD - 05/14/2024 Images from the original note were not included. AMBULATORY NICKEL PLANT OPERATOR REPORT Patient Name: Kanchan Abbott Date of [...] of 102 beatsper minute. Caridad Self M.D., [facility] 05/14/24 Caridad Self MD CV CARDIAC SERVICES PRO CEDURES Final Result * Electrocardiogram Report (04/30/2024 11:28 AM CDT) Caridad Self MD ECG ORDERABLES Final R esult * SCAN - RADIOLOGY/IMAGING (04/30/2024) Anatomical Region Laterality Modality Other Caridad Self MD Final R esult from Last 3 Months Insurance UHC MEDICARE ADVANTAGE [employer] MEDICARE ADVANTAGE Advance Directives For more information, please contact: [phone] * Full Code (Latest Code Status on [...] Manzo Daughter Health Care Agent Care Teams Pickling Operator Relationship Specialty Start Date End Date Paulina Houser NP [address] [place] [address] PCP - General Family Medicine 03/05/24 Oscar Carroll MD [address] [place] [address] Professor Of Psychiatry Gastroenterology 09/03/19 Oleg Marrero MD [address] [place] [address] Surgeon Colon and Rectal Surgery 10/13/19
--- OUTSIDE RECORDS SUMMARY | 2024-07-20 08:54 | XMS_ITS | Encounter Summary ---
Author Organization [facility] Address [address] [place] [address] Care Team Providers Care Electrical Test Engineer Name Role Phone Brandon Roberts MD Primary Care Provider Encounter Details Date Type Department Care Team (Late st Contact Info) Description 08/12/2023 Lab Requisition [facility]ician [facility] - DermPath Lab [address] [facility], [place] [address] Chikis Mendoza MD [address] [facility] [address] [place] [address] Social History Tobacco Use Types Packs/Day Years Used Date Smoking Tobacco: Former Smokeless Tobacco: Never Alcohol Use Standard Drinks/Week Comments No 0 (1 standard drink = 0.6 oz pur e alcohol) Comments Unknown Sex and Gender Information Value Date Recorded Sex Assigned at Not on file 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 Gender Identity Not on file Sexual Orientation Not on file documented as of this encounter Plan of Treatment Not on file documented as of this encounter Procedures Procedure Name Priority Date/Time Associated Diagnosis Comments DERMATOPATHOLOGY Routine 08/12/2023 11:1 7 AM CDT documented in this encounter Results * DERMATOPATHOLOGY (08/12/2023 11:17 AM CDT) Case Report Dermatopathology Report Case: [id number] Authorizing Provider: Chikis Mendoza MD Collected: 08/12/2023 11:17 AM Ordering Location: [facility] - Received: 08/13/2023 01:05 [...] characteristic determined by the Dermatopathology Laboratory at [facility], directed by Dr. Leslye Thomas. These tests need not be, and therefore are not, approved by the [place] Food and Drug Administration. The tests are used for clinical purposes. Billing Codes Specimen Charges Stain Charges 83332 1 5:05 PM CDT DERMATOPATHOLOGY LABORATORY Embedded Images 5:05 PM CDT DERMATOPATHOLOGY LABORATORY Pathology/Cytolo gy TISSUE SPECIMEN FROM SKIN / Unknown 08/12/2023 11:17 AM CDT 08/13/2023 1:05 PM CDT us Chikis Mendoza MD LAB - PATHOLOGY/CYTOLOGY ORD ERABLES Final Result DERMATOPATHOLOGY LABORATORY [facility] - Department of Dermatology [facility] Specialized Medicine [address] [place] [address], [address] [place] [address], [facility] [phone] documented in this encounter Visit Diagnoses Not on filedocumented in this encounter Care Teams Electrical Test Engineer Relationship Specialty Start Date End Date Brandon Roberts MD [address] [place] [address] PCP - General 11/12/08 documented as of this encounter
--- OUTSIDE RECORDS SUMMARY | 2024-07-20 08:54 | XMS_ITS | Encounter Summary ---
Author Organization [facility] Address [address] [place] [address] Care Team Providers Care Manager Event Name Role Phone Brandon Roberts MD Primary Care Provider [phone] Encounter Details Date Type Department Care Team (Late st Contact Info) Description 07/03/2022 Lab Requisition [facility]ician Group - DermPath Lab [address] [facility], [place] [address] Chikis Mendoza MD [address] [facility] [address] [place] [address] Social History Tobacco Use Types Packs/Day Years Used Date Smoking Tobacco: Former Smokeless Tobacco: Never Alcohol Use Standard Drinks/Week Comments No 0 (1 standard drink = 0.6 oz pur e alcohol) Comments Unknown Sex and Gender Information Value Date Recorded Sex Assigned at Not on file 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 Gender Identity Not on file Sexual Orientation Not on file documented as of this encounter Plan of Treatment Not on file documented as of this encounter Procedures Procedure Name Priority Date/Time Associated Diagnosis Comments DERMATOPATHOLOGY Routine 07/03/2022 11:3 5 AM CDT documented in this encounter Results * DERMATOPATHOLOGY (07/03/2022 11:35 AM CDT) Case Report Dermatopathology Report Case: [id number] Authorizing Provider: Chikis Mendoza MD Collected: 07/03/2022 11:35 AM Ordering Location: [facility] DermPath Lab Received: 07/03/2022 [...] of a non-oriented ellipse of skin measuring [id number] mm. The epidermal surface is unremarkable. The [...] determined by the Dermatopathology Laboratory at [facility], directed by Dr. Leslye Thomas. These tests need not be, and therefore are not, approved by the [place] Food and Drug Administration. The tests are used for clinical purposes. Billing Codes Specimen Charges Stain Charges 09352 1 12:54 PM CDT DERMATOPATHOLOGY LABORATORY Embedded Images 12:54 PM CDT DERMATOPATHOLOGY LABORATORY Pathology/Cytolo gy TISSUE SPECIMEN FROM SKIN / Unknown 07/03/2022 11:35 AM CDT 07/03/2022 4:44 PM CDT us Chikis Mendoza MD LAB - PATHOLOGY/CYTOLOGY ORD ERABLES Final Result DERMATOPATHOLOGY LABORATORY [facility] - Department of Dermatology [facility] Specialized Medicine [address] [place] [address], [address] [phone] documented in this encounter Visit Diagnoses Not on filedocumented in this encounter Care Teams Manager Event Relationship Specialty Start Date End Date Brandon Roberts MD [address] [place] [address] PCP - General 11/12/08 documented as of this encounter
--- OUTSIDE RECORDS SUMMARY | 2024-07-20 08:54 | XMS_ITS | Referral Summary ---
Author Organization [facility] Address [address] [place] [address] Care Team Providers Care Mechanical Adjuster Name Role Phone Oscar Carroll MD Unavailable + Oleg Marrero MD Unavailable Paulina Houser NP Primary Care Provider [phone] Encounters Date Type Department Care Team Description 06/04/2024 Telephone [facility] Medical [facility] Cardiology [address] [place] [address] Caridad Self MD 06/01/2024 Telephone [facility] Cardiology [address] [place] [phone] Caridad Self MD 05/29/2024 Anticoagulation Visit [facility] Cardiology [address] [place] [phone] Oleg Mathis RN Atrial fibrillation, unspecified type (HCC) (Primary Dx) 05/28/2024 Telephone [facility] Cardiology [address] [place] [phone] Caridad Self MD 05/27/2024 Anticoagulation Visit [facility] Cardiology [address] [place] [address] [place] [phone] Sherrie Page RN Atrial fibrillation, unspecified type (HCC) (Primary Dx) 05/27/2024 Telephone [place] [address] [place] [phone] Caridad Self MD 05/22/2024 Anticoagulation Visit [place] [address] [place] [phone] Teresa Snowden RN Atrial fibrillation, unspecified type (HCC) (Primary Dx) 05/22/2024 Telephone [place] [address] [place] [phone] Caridad Self MD 05/18/2024 Anticoagulation Visit [place] [address] [place] [phone] Enedina Zepeda RN Atrial fibrillation, unspecified type (HCC) (Primary Dx) 05/15/2024 Anticoagulation Visit [place] [address] [place] [phone] Teresa Snowden RN Atrial fibrillation, unspecified type (HCC) (Primary Dx) 05/13/2024 Anticoagulation Visit [place] [address] [place] [phone] Teresa Snowden RN Atrial fibrillation, unspecified type (HCC) (Primary Dx) 05/11/2024 Telephone [place] [address] [place] [phone] Caridad Self MD 05/07/2024 Orders Only [place] [address] [place] [phone] Caridad Self MD 04/30/2024 Orders Only [facility] Health Information Management [address] [place] [address] Caridad Self MD 04/30/2024 11:35 AM CDT Ancillary Procedure [facility] Medical Group Cardiology [address] [place] [address] 04/30/2024 11:00 AM CDT Office Visit [facility] Medical [facility] Cardiology [address] [place] [address] Caridad Self MD Persistent atrial fibrillation (HCC) [...] 1 tablet (75 mcg total) by mouth digital learning platforms manager before breakfast 0 11/29/19 18 Active dupilumab [...] (07/20/2020): Added automatically from request for surgery [id number] History of colon cancer 10/29/2019 Clostridium difficile infection 10/07/2019 Acute postoperative abdominal pain 09/23/2019 Malignant neoplasm of hepatic flexure 09/09/2019 Overview (09/09/2019): Added automatically from request for surgery [id number] Malignant neoplasm of transverse colon 0 Other [...] on file 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 Gender Identity Female 10/28/2019 5:35 PM [...] 0.90 - 1.10 EXTERNAL LAB Blood Result [facility] Provider MD LAB BLOOD ORDERABLES Mariam l Result Performing Organization Address City/[facility]/ZIP Co de Phone Number EXTERNAL LAB * (ABNORMAL) Protime-INR (05/22/2024) INR 11.10(A) 0.90 - 1.10 EXTERNAL LAB Blood Result [facility] Provider MD LAB BLOOD ORDERABLES Mariam l Result Performing Organization Address [facility]/ZIP Co de Phone Number EXTERNAL LAB * (ABNORMAL) Protime-INR (05/15/2024) Pathologist [facility] INR 2.80(A) 0.90 - 1.10 EXTERNAL LAB Blood Result [facility] Provider MD LAB BLOOD ORDERABLES Mariam l Result Performing Organization Address [facility]/ZIP Co de Phone Number EXTERNAL LAB * (ABNORMAL) Protime-INR (05/15/2024) [facility] INR 2.80(A) 0.90 - 1.10 EXTERNAL LAB Blood Result [facility] Provider MD LAB BLOOD ORDERABLES Edit ed Result - Final Performing Organization Address [facility]/ZIP Co de Phone Number EXTERNAL LAB * (ABNORMAL) Protime-INR (05/13/2024) [facility] INR 2.30(A) 0.90 - 1.10 [facility] Blood Result [facility] Provider MD LAB BLOOD ORDERABLES Mariam l Result Performing Organization Address [facility] Co de Phone Number [facility] * Cardiology Document Scan (05/02/2024 4:34 PM CDT) Anatomical Region Laterality Modality Other Result [facility] Blake Iraheta MD CV CARDIAC SERVICES PROCEDURES F inal Result * Cardiology Document Scan (05/01/2024 4:32 PM CDT) Anatomical Region Laterality Modality Other us Caridad Self MD CV CARDIAC SERVICES PRO CEDURES Final Result * 48 HR Holter Monitor (04/30/2024 11:30 AM CDT) Anatomical Region Laterality Modality Electrocardiogra phy Narrative 05/14/2024 12:39 PM CDT Images from the original result were not included. AMBULATORY SEMICONDUCTOR PROCESSING GROUP LEADER REPORT Patient Name: Kanchan Abbott Date of [...] beats per minute. Caridad Self M.D., [facility] 05/14/24 Procedure Note Caridad Self MD - 05/14/2024 Images from the original note were not included. AMBULATORY SEMICONDUCTOR PROCESSING GROUP LEADER REPORT Patient Name: Kanchan Abbott Date of [...] 102 beatsper minute. Caridad Self M.D., [facility] 05/14/24 Caridad Self MD CV CARDIAC SERVICES PRO CEDURES Final Result * Electrocardiogram Report (04/30/2024 11:28 AM CDT) Caridad Self MD ECG ORDERABLES Final R esult * SCAN - RADIOLOGY/IMAGING (04/30/2024) Anatomical Region Laterality Modality Other Caridad Self MD Final R esult from Last 3 Months Insurance UHC MEDICARE ADVANTAGE [facility] MEDICARE ADVANTAGE Advance Directives For more information, please contact: [phone] * Full Code (Latest Code Status on [...] Agents on File Name Relationship Healthcare Agent [facility] Communication Dafne Manzo Daughter Health Care Agent Care Teams Mechanical Adjuster Relationship Specialty Start Date End Date Paulina Houser NP [address] [place] [address] PCP - General Family Medicine 03/05/24 Oscar Carroll MD [address] [place] [address] Salvage Determiner Gastroenterology 09/03/19 Oleg Marrero MD [address] [place] [address] Surgeon Colon and Rectal Surgery 10/13/19
--- OUTSIDE RECORDS SUMMARY | 2024-07-20 08:54 | XMS_ITS | Continuity of Care Document ---
Author Organization [facility] Address [address] [place] [address] [address] [place] [address] Phone Care Team Providers Care [facility] Name Role Phone Neelima London Unavailable Unavailable Procedures Procedure Date Eye Exam & Treatment Refraction Office/outpatient Visit, Est No Script Eye Exam Established Pt No Script Eye Exam Established Pt Advance Directives Directive Yes / No Effective Date File Name No Information Encounters Encounter Description Practice Location Reason(s) For Visit Diagnoses Date Provider Providers Copied on Encounter [facility], [address] [place] [address] [address], [place], [place], [id number], [place] tel:[phone] [facility] No Information 2-201 0 Lita Ortez. [address] [facility] , [address], [place], [place], [facility], . tel:[phone] Office/outpat ient Visit, Est [facility], [address] [place] [address] [address], [place], [place], [id number], [place] tel:[phone] [facility] No Information Sep-0 9-200 9 Ev Barrow. [address] [facility] [address], [place], [place], [facility], . tel:[phone] [facility], [address] [place] [address] [address], [place], [place], [id number], [place] tel:[phone] [facility] No Information Sep-0 2-200 9 Ev Barrow. [address] [facility] [address], [place], [address], [place]. tel:[phone] [facility] Eye [facility], [address], [place], [place], [id number], [place] tel:[phone] [facility] No Information 8 Smita Chopra. [address], [place], [address], [place]. tel:[phone] Family History Family Member Type Diagnosis Age At Onset No Information Payers Payer name Insurance type Covered democrat ID Nat[place]axine lornaobinna(s) [employer] Vision Plan CI [id number] Social History Type Description Quantity Date Captured [...]
--- OUTSIDE RECORDS SUMMARY | 2024-07-20 08:54 | XMS_ITS ---
Author Organization [facility] Address [address] [place] [address] Care Team Providers Care Fixing Machine Operator Name Role Phone Oscar Carroll MD Unavailable + Oleg Marrero MD Unavailable [phone] Paulina Houser NP Primary Care Provider [phone] Active Problems Problem Noted Date Diagnosed Date Chronic anticoagulation 04/30/2024 Primary hypertension 04/30/2024 Mixed hyperlipidemia 04/30/2024 Atrial fibrillation 03/26/2024 Screening for malignant neoplasm of colon 2020 Overview (07/20/2020): Added automatically from request for surgery [id number] History of colon cancer 10/29/2019 Clostridium difficile infection 10/07/2019 Acute postoperative abdominal pain 09/23/2019 Malignant neoplasm of hepatic flexure 09/09/2019 Overview (09/09/2019): Added automatically from request for surgery [id number] Malignant neoplasm of transverse colon 0 Other [...] from the original note were not included. [facility] [address] [place] [address] This Survivorship Care Plan is a cancer [...] Information: Primary Care Physician Roman Mancia DO [phone] Surgeon Oleg Marrero MD Radiation Oncologist Medical Oncologist Greaser Helper Oscar Bill MD Treatment Summary Cancer [...] valrubicin, doxorub icin isotoxic equivalent Research Studies [facility] (DDRCC) BIOBANK [...] oncology and Surgeon if both are [facility] Physicians) History and Physical every 3 months [...] Help learning to eat healthier, call the metal buildings assembler at: [facility] . Have an active lifestyle, strive [...] physician. Resources you may be interested in: [facility] [place] [facility] [place] A National Cancer [place] [facility] http://www.[facility]/ [facility] Information Center 1st floor of [facility] [phone]. Computer access, educational material, counseling services (FREE) United Ostomy Association: the place for ostomy resources, advocacy, and support. www.ostomy.org The ostomy nurse at [facility] can be reached at [phone] Online Resources: www.cancer.net; http://www.cdc.gov/cancer/survivorship; http://www.cancercare.org/tagged/post-treatment_survivorship; http://www.cancer.gov/about-cancer/coping/survivorship Springboard Beyond Cancer: https://survivorship.cancer.gov/ an online tool for cancer survivors andcaregivers created by the [place] [employer] Society and the National Cancer [place]. It provides: Information on dealing with side effects from cancer and treatment Caregivers with support and resources Practical advice about talking to friends and family about cancer Questions to ask their health care team Help understanding their rights in the workplace
--- OUTSIDE RECORDS SUMMARY | 2024-07-20 08:54 | XMS_ITS | Clinical Summary ---
Author Organization [facility] Address [address] [place] [address] Care Team Providers Care Measurement Analyst Name Role Phone Brandon Roberts MD Primary Care Provider [phone] Source Comments [facility],non-owned Affiliates and Associated Physician Practices is amultiple site organization consisting of ambulatory clinics and hospital sitesin [place], [place], [place] and [place]. This disclosure is being madepursuant to the Care Everywhere program and may not contain all information available regarding this patient. 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
--- NOTE | 2024-07-20 17:09 | WPDSIXMINUTE ---
Six Minute Walk Procedure Procedure Performed Pulmonary Stress Test (6 min walk) Six Minute Walk Six Minute Walk: This is a 6 minute walk test. The test was performed and interpreted in accordance with the 2014 ERS/ATS task force guidelines. Of note, patient performed the testing on 2 L nasal cannula oxygen. Patient used to wheeled walker for stability. Findings: The patient's resting 2 L nasal cannula oxygen saturation measured by pulse oximetry was 94%, the heart rate was 52 bpm, and the modified Bonnie dyspnea score was 0. Patient ambulated for 259 meters and oxygen saturation remained 92 to 94%. At the end of the study the heart rate was 75 bpm and the modified Bonnie dyspnea score was 1 to 2. The patient had no desaturations with activity on 2 L nasal cannula. There are no prior studies for comparison.
--- NOTE | 2024-07-20 17:11 | WPDPFTINT ---
PFT Procedure Performed PFT Procedure Performed Spirometry with Pre/Post Bronchodilator Plethysmography (Lung Vol) Diffusing Cap (DLCO) Flow Vol Loop PFT Interpretation This is a pulmonary function test with pre and post-bronchodilator spirometry, plethysmography and diffusing capacity. The test was performed and results interpreted in accordance with the 2019 and 2005 ATS/ERS Task Force guidelines respectively using the Global Lung Function Initiative-2012 reference equations. Patient demonstrated good effort and cooperation. Reproducibility criteria were met. The quality of the pre bronchodilator spirometry maneuver was Grade A and post bronchodilator spirometry maneuver was Grade A. Findings: Spirometry: There is decreased maximal expiratory airflow at all lung volumes with concave expiratory flow tracing. The contour the inspiratory flow tracing is normal. The pre bronchodilator FVC is 1.82 L, 84% predicted. The pre bronchodilator FEV1 is 0.96 L, 59% predicted. The pre bronchodilator FEV1: FVC ratio is 53%. The post bronchodilator FVC is 1.92 L, representing a 6% increase. The post bronchodilator FEV1 is 1.04 L, representing an 8% increase. The post bronchodilator FEV1: FVC ratio is 54%. Plethysmography: The total lung capacity is 5.18 L, 110% predicted. The functional residual capacity is 3.63 L, 133% predicted. The residual volume is 3.32 L, 137% predicted. The residual volume: Total lung capacity ratio is 64%. Diffusing capacity: The diffusing capacity unadjusted for hemoglobin and carboxyhemoglobin is 6.7, 37% predicted. The diffusing capacity adjusted for alveolar volume is 2.24, 55% predicted. In comparison to previous pulmonary function testing on 10/02/2018 in which only pre bronchodilator spirometry was performed, the pre bronchodilator FVC is decreased from 2.35 L to 1.82 L. The pre bronchodilator FEV1 is decreased from 1.23 L to 0.96 L. The total lung capacity is decreased from 6.12 L to 5.18 L. The functional residual capacity is decreased from 4.44 L to 3.63 L. The residual volume is decreased from 3.77 L to 3.32 L. the diffusing capacity unadjusted for hemoglobin and carboxyhemoglobin is decreased from 9.6 to 6.7. The diffusing capacity adjusted for alveolar volume is decreased from 2.86 to 2.24. Impression: There is a moderately severe obstructive abnormality. There is no significant improvement after inhaling a single dose of albuterol. The increase in residual volume to total lung volume ratio is consistent with hyperinflation from an obstructive abnormality. The diffusing capacity unadjusted for hemoglobin and carboxyhemoglobin is severely decreased and remains moderately decreased when adjusted for alveolar volume. In comparison to previous pulmonary function testing on 10/02/2018 there has been a greater than anticipated time dependent decrease in the FVC, FEV1, total lung capacity, functional residual capacity, residual volume and diffusing capacity. Clinical correlation is recommended.
== END 2024-07-20 08:41 | disposition home or self-care (01) ==
LOC: ANHPFT 08:44
PROVIDERS: PCP Nurse Practitioner Family; Visit Provider Student in an Organized Health Care Education/Training Program
DX: J44.9 Chronic obstructive pulmonary disease, unspecified (principal); R94.2 Abnormal results of pulmonary function studies
CPT/HCPCS: 94060; 94618; 94726; 94729

== ENCOUNTER 2024-09-01 08:04 | Outpatient (CLI) | payer MEDICARE, SELFPAY ==
--- OUTSIDE RECORDS SUMMARY | 2024-09-01 08:13 | XMS_ITS ---
Author Organization [facility] Address [address] [place] [address] Care Team Providers Care Puller Machine Name Role Phone Oscar Carroll MD Unavailable + Oleg Marrero MD Unavailable [phone] Paulina Houser NP Primary Care Provider [phone] Active Problems Problem Noted Date Diagnosed Date Chronic anticoagulation 04/30/2024 Primary hypertension 04/30/2024 Mixed hyperlipidemia 04/30/2024 Atrial fibrillation 03/26/2024 Screening for malignant neoplasm of colon 2020 Overview (07/20/2020): Added automatically from request for surgery [id number] History of colon cancer 10/29/2019 Clostridium difficile infection 10/07/2019 Acute postoperative abdominal pain 09/23/2019 Malignant neoplasm of hepatic flexure 09/09/2019 Overview (09/09/2019): Added automatically from request for surgery [id number] Malignant neoplasm of transverse colon 0 Other [...] from the original note were not included. [facility] [address] [place] [address] This Survivorship Care Plan is a cancer [...] Information: Primary Care Physician Roman Mancia DO [phone] Surgeon Oleg Marrero MD Radiation Oncologist Medical Oncologist Equipment Cleaner Oscar Bill MD Treatment Summary Cancer Diagnosis [...] valrubicin, doxorub icin isotoxic equivalent Research Studies [facility] DIGEST[facility] DISEAS[facility] RESEARCH [facility]ORE [facility] (DDRCC) BIOBANK [...] Medical oncology and Surgeon if both are [facility] Physicians) History and Physical every 3 [...] Help learning to eat healthier, call the internet marketing intern at: [facility] . Have an active lifestyle, strive [...] physician. Resources you may be interested in: [facility] [place] A National Cancer [place] [facility] http://www.[facility]/ [facility] Information [facility] 1st floor of [facility] [phone]. Computer access, educational material, counseling services (FREE) United Ostomy Association: the place for ostomy resources, advocacy, and support. www.ostomy.org The ostomy nurse at [facility] can be reached at [phone] Online Resources: www.cancer.net; http://www.cdc.gov/cancer/survivorship; http://www.cancercare.org/tagged/post-treatment_survivorship; http://www.cancer.gov/about-cancer/coping/survivorship Springboard Beyond Cancer: https://survivorship.cancer.gov/ an online tool for cancer survivors andcaregivers created by the [place] [employer] and the National Cancer [place]. It provides: Information on dealing with side effects from cancer and treatment Caregivers with support and resources Practical advice about talking to friends and family about cancer Questions to ask their health care team Help understanding their rights in the workplace
--- OUTSIDE RECORDS SUMMARY | 2024-09-01 08:13 | XMS_ITS | Encounter Summary ---
Author Organization [facility] Address [address] [place] [address] Care Team Providers Care Apartment House Manager Name Role Phone Brandon Roberts MD Primary Care Provider Encounter Details Date Type Department Care Team (Late st Contact Info) Description 08/12/2023 Lab Requisition [facility] - DermPath Lab [address] [facility], [place] [address] Chikis Mendoza MD [address] [facility] 3 [place] [address] Social History Tobacco Use Types Packs/Day Years Used Date Smoking Tobacco: Former Smokeless Tobacco: Never Alcohol Use Standard Drinks/Week Comments No 0 (1 standard drink = 0.6 oz pur e alcohol) Comments Unknown Sex and Gender Information Value Date Recorded Sex Assigned at Not on file Legal Sex Female 6:34 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 FINISHER Gender Identity Not on file Sexual Orientation Not on file documented as of this encounter Plan of Treatment Not on file documented as of this encounter Procedures Procedure Name Priority Date/Time Associated Diagnosis Comments DERMATOPATHOLOGY Routine 08/12/2023 11:1 7 AM CDT documented in this encounter Results * DERMATOPATHOLOGY (08/12/2023 11:17 AM CDT) Case Report Dermatopathology Report Case: [id number] Authorizing Provider: Chikis Mendoza MD Collected: 08/12/2023 11:17 AM Ordering Location: [facility] - Received: 08/13/2023 01:05 PM [...] characteristic determined by the Dermatopathology Laboratory at [facility], directed by Dr. Leslye Thomas. These tests need not be, and therefore are not, approved by the [place] Food and Drug Administration. The tests are used for clinical purposes. Billing Codes Specimen Charges Stain Charges 40653 1 5:05 PM CDT DERMATOPATHOLOGY LABORATORY Embedded Images 5:05 PM CDT DERMATOPATHOLOGY LABORATORY Pathology/Cytolo gy TISSUE SPECIMEN FROM SKIN / Unknown 08/12/2023 11:17 AM CDT 08/13/2023 1:05 PM CDT us Chikis Mendoza MD LAB - PATHOLOGY/CYTOLOGY ORD ERABLES Final Result DERMATOPATHOLOGY LABORATORY [facility] - Department of Dermatology [facility] [address] [place] [address], 3rd [place] [address], [facility] [phone] documented in this encounter Visit Diagnoses Not on filedocumented in this encounter Care Teams Apartment House Manager Relationship Specialty Start Date End Date Brandon Roberts MD [address] [place] [address] PCP - General 11/12/08 documented as of this encounter
--- OUTSIDE RECORDS SUMMARY | 2024-09-01 08:13 | XMS_ITS | Clinical Summary ---
Author Organization [facility] [employer] Address [address] [facility] [place] [address] Care Team Providers Care Hydrate Thickener Operator Name Role Phone Brandon Roberts MD Primary Care Provider [phone] Source Comments [facility] [employer],non-owned Affiliates and Associated Physician Practices is amultiple site organization consisting of ambulatory clinics and hospital sitesin [place], [place], [place] and [place]. This disclosure is being madepursuant to the Care Everywhere program and may not contain all information available regarding this patient. Last updated 17.[facility] [employer] Allergies No known active allergies Medications [...] on file Legal Sex Female 6:34 PM DANDY TENDER Gender Identity Not on file Sexual Orientation [...] MEDICARE AWV CALENDAR YEAR 2024 INFLUENZA VACCINE (#1) 2024 HEPATITIS B VACCINE Aged Out No [...] patient's age to complete this topic Insurance [facility] MANAGED MEDICARE ADV [facility] MANAGED MEDICARE ADV Care Teams Hydrate Thickener Operator Relationship Specialty Start Date End Date Brandon Roberts MD [address] [place] [address] PCP - General 11/12/08
--- OUTSIDE RECORDS SUMMARY | 2024-09-01 08:13 | XMS_ITS | Encounter Summary ---
Author Organization [facility] Address [address] [place] [address] Care Team Providers Care Stippler Name Role Phone Oscar Carroll MD Unavailable + Oleg Marrero MD Unavailable [phone] Paulina Houser NP Primary Care Provider [phone] Encounter Details Date Type Department Care Team (Late st Contact Info) Description 05/29/2024 Orders Only [facility] Health Information Management [address] [place] [address] Scanning, Provider Social History Tobacco Use Types Packs/Day Years Used Date Smoking Tobacco: Former Cigarettes 1 67.5 S tarted: 1957 Smokeless Tobacco: Never Comments:says [...] on file Legal Sex Female 12:02 PM PHARMACY CLINICAL COORDINATOR Gender Identity Female 10/28/2019 5:35 PM CDT Sexual Orientation Straight 10/28/2019 5: 35 PM CDT documented as of this encounter Plan of Treatment Not on file documented as of this encounter Procedures Procedure Name Priority Date/Time Associated Diagnosis Comments SCAN - LABS 05/29/2024 documented in this encounter Results * SCAN - LABS (05/29/2024) us Provider Scanning Final Result documented in this encounter Visit Diagnoses Not on filedocumented in this encounter Care Teams Stippler Relationship Specialty Start Date End Date Paulina Houser NP [address] [place] [address] PCP - General Family Medicine 03/05/24 Oscar Carroll MD [address] [place] [address] Histopathologist Gastroenterology 09/03/19 Oleg Marrero MD [address] [place] [address] Surgeon Colon and Rectal Surgery 10/13/19 documented as of this encounter
--- OUTSIDE RECORDS SUMMARY | 2024-09-01 08:13 | XMS_ITS | Clinical Summary ---
Author Organization [facility] Address [address] [place] [address] Care Team Providers Care Geoduck Diver Name Role Phone Oscar Carroll MD Unavailable + Oleg Marrero MD Unavailable Paulina Houser NP Primary Care Provider [phone] Allergies No known active allergies Medications amLODIPine [...] 1 tablet (75 mcg total) by mouth sort line before breakfast 0 11/29/19 18 Active dupilumab (DUPIXENT) 300 mg/2 mL syringe Inject 2 mL (300 mg total) under the skin every 14 (fourteen) days. 4 Syringe 5 02/26/19 19 Active ibuprofen (ADVIL,MOTRIN) 600 mg tabletIndications:Pa in,Postoperative Acute Pain Take 1 tablet (600 mg total) by mouth every 8 (eight) hours 30 tablet 09/26/19 20 Active Additional Information Patient not taking.Reported on 08/18/2024 ascorbic acid (VITAMIN C) 500 mg tablet,chewable [...] taking differently: 20 mEqoral Daily, Reported on 08/18/2024 atorvastatin (LIPITOR) 40 mg tablet TAKE 1 [...] day 180 tablet 3 05/28/19 25 Active memantine (NAMENDA) 5 mg tablet TAKE 1 TABLET BY MOUTH EVERY MORNING FOR 7 DAYS 05/28/19 25 Active traZODone (DESYREL) 50 mg tablet Take 1 tablet (50 mg total) by mouth nightly at bedtime Active Active Problems Problem Noted Date Diagnosed Date Chronic anticoagulation 04/30/2024 Primary hypertension 04/30/2024 Mixed hyperlipidemia 04/30/2024 Atrial fibrillation 03/26/2024 Screening for malignant neoplasm of colon 2020 Overview (07/20/2020): Added automatically from request for surgery [id number] History of colon cancer 10/29/2019 Clostridium difficile infection 10/07/2019 Acute postoperative abdominal pain 09/23/2019 Malignant neoplasm of hepatic flexure 09/09/2019 Overview (09/09/2019): Added automatically from request for surgery [id number] Malignant neoplasm of transverse colon 0 Other atopic dermatitis 02/26/2018 Pruritus, unspecified 02/26/2018 Venous barkley of lip 02/26/2018 Encounters Date Type Department Care Team Description 08/18/2024 11:15 AM CDT Office Visit [facility] Surgery [address] [place] [address] Oleg Marrero MD History of colon cancer (Primary Dx) 06/04/2024 Telephone [facility] Medical Group Cardiology [address] [place] [address] Caridad Self MD from Last 3 Months Immunizations Immunization Administration Dates Next Due Pneumococcal Conjugate PCV 13 12/02/2017 Surgical History Surgery Date Site/Laterality Comments MD LIGJ DIVJ &/EXCJ VARICOSE VEIN CLUSTER 1 LEG Varicose Vein Ligation - (Added by TW Conv) MD TONSILLECTOMY PRIMARY/SECONDARY <AGE 14 Tonsillectomy - (Added [...] Tobacco: Former Cigarettes 1 67.5 S tarted: 8 Smokeless Tobacco: Never Tobacco [...] on file Legal Sex Female 12:02 PM CAR PUSHER Gender Identity Female 10/28/2019 5:35 PM CDT Sexual Orientation Straight 10/28/2019 5: 35 PM CDT Obstetrics History Last Filed Vital Signs Vital Sign Reading Time Taken Comments Blood Pressure 127/60 08/18/2024 11:12 AM CDT Pulse 61 08/18/2024 11:12 AM CDT Temperature 35.6 C (96 F) 08/18/2024 11:12 AM CDT Respiratory Rate 25 10/18/2022 12:00 PM CDT Oxygen Saturation 94% 08/18/2024 11:12 AM CDT Inhaled Oxygen Concentration - - Weight 81.6 kg (180 lb) 08/18/2024 11:12 AM CDT Height 160 cm (5' 3) 08/18/2024 11:12 AM CDT Body Mass Index 31.89 08/18/2024 11:12 AM CDT Plan of Treatment Health Maintenance Due Date Last Done Comments Depression Screening 1935 Osteoporosis Screening-Bone Density Scan 1935 Hepatitis B Screening 10/01/1953 Well Visit 65+ 2002 Pneumococcal vaccine 65+ (2 of 2 - PPSV23) 01/27/2018 12/02/2017 Zoster Vaccine (3 of 3) 02/26/2022 01/01/2022, 04/11 Fall Risk Assessment 10/19/2023 10/18/2022 Covid-19 Vaccine (6 - 2023-2 5 season) 2023 12/08/2021, 06/17/2021, 12/23/2020, Additional history exists Influenza Vaccine (#1) 2024 , 12/07/2022, 12/08/2021, Additional history exists DTaP/Tdap/Td Vaccine (3 - Td or Tdap) 03/27/2034 03/27/2024, 11/17/2022 Insurance [facility] MEDICARE ADVANTAGE [facility] MEDIC[facility] ADVANTAGE Advance Directives For more information, please contact: [phone] * Full Code (Latest Code Status on [...] Agents on File Name Relationship Healthcare Agent [facility] p Communication Dafne Manzo Daughter Health Care Agent Care Teams Geoduck Diver Relationship Specialty Start Date End Date Paulina Houser NP [address] [place] [address] PCP - General Family Medicine 03/05/24 Oscar Carroll MD [address] [place] [address] Dental Service Chief Gastroenterology 09/03/19 Oleg Marrero MD [address] [place] [address] Surgeon Colon and Rectal Surgery 10/13/19
--- OUTSIDE RECORDS SUMMARY | 2024-09-01 08:13 | XMS_ITS | Continuity of Care Document ---
Author Organization [facility] Address [address] [place] [address] [address] [place] [address] Phone Care Team Providers Care Sponge Packer Name Role Phone Neelima London Unavailable Unavailable Procedures Procedure Date Eye Exam & Treatment Refraction Office/outpatient Visit, Est No Script Eye Exam Established Pt No Script Eye Exam Established Pt Advance Directives Directive Yes / No Effective Date File Name No Information Encounters Encounter Description Practice Location Reason(s) For Visit Diagnoses Date Provider Providers Copied on Encounter [facility], [address] [place] [address] [address], [place], [place], [id number], [place] tel:[phone] [facility] No Information 2-201 [address] [facility] [address] , [address], [place], [place], [facility], . tel:[phone] Office/outpat ient Visit, Est [facility], [address] [place] [address] [address], [place], [place], [id number], [place] tel:[phone] [facility] No Information Sep-0 9-[address] [facility] [address], [place], [place], [facility], . tel:[phone] [facility], [address] [place] [address] [address], [place], [place], [id number], [place] tel:[phone] [facility] No Information Sep-0 2-[address] [facility] [address], [place], [address], [place]. tel:[phone] [facility] Eye [facility], [address], [place], [place], [id number], [place] tel:[phone] [facility] No Information [address] [facility], [place], [address], [place]. tel:[phone] Family History Family Member Type Diagnosis Age At Onset No Information Payers Payer name Insurance type Covered libertarian ID Natachamaxine lornaobinna(s) [employer] Vision Plan CI [id number] Social History Type Description Quantity Date Captured [...]
--- OUTSIDE RECORDS SUMMARY | 2024-09-01 08:13 | XMS_ITS | Referral Summary ---
Author Organization [facility] Address [address] [place] [address] Care Team Providers Care Pointer Helper Name Role Phone Oscar Carroll MD Unavailable + Oleg Marrero MD Unavailable [phone] Paulina Houser NP Primary Care Provider [phone] Encounters Date Type Department Care Team Description 08/18/2024 11:15 AM CDT Office Visit [facility] Surgery [address] [place] [address] Oleg Marrero MD History of colon cancer (Primary Dx) 06/04/2024 Telephone [facility] Group Cardiology [address] [place] [address] Caridad Self MD from Last 3 Months Allergies No known [...] 1 tablet (75 mcg total) by mouth combination welder before 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 0 11/29/19 18 Active dupilumab [...] (07/20/2020): Added automatically from request for surgery [id number] History of colon cancer 10/29/2019 Clostridium difficile infection 10/07/2019 Acute postoperative abdominal pain 09/23/2019 Malignant neoplasm of hepatic flexure 09/09/2019 Overview (09/09/2019): Added automatically from request for surgery [id number] Malignant neoplasm of transverse colon 0 Other [...] on file 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 Gender Identity Female 10/28/2019 5:35 PM CDT [...] 08/18/2024 11:12 AM CDT Plan of Treatment Not on file Insurance [facility] MEDICARE ADVANTAGE [facility] MEDICARE ADVANTAGE Advance Directives For more information, please contact: [phone] * Full Code (Latest Code Status on [...] Manzo Daughter Health Care Agent Care Teams Pointer Helper Relationship Specialty Start Date End Date Paulina Houser NP [address] [place] [address] PCP - General Family Medicine 03/05/24 Oscar Carroll MD [address] [place] [address] Stone Rigger Gastroenterology 09/03/19 Oleg Marrero MD [address] [place] [address] Surgeon Colon and Rectal Surgery 10/13/19
--- OUTSIDE RECORDS SUMMARY | 2024-09-01 08:13 | XMS_ITS | Encounter Summary ---
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 Gender Identity Female 10/28/2019 5:35 PM CDT Sexual Orientation Straight 10/28/2019 5: 35 PM CDT documented as of this encounter Plan of Treatment Not on file documented as of this encounter Procedures Procedure Name Priority Date/Time Associated Diagnosis Comments SCAN - RADIOLOGY/IMAGING 01/20/2024 documented in this encounter Results * SCAN - RADIOLOGY/IMAGING (01/20/2024) Anatomical Region Laterality Modality Other us Provider Scanning Final Result documented in this encounter Visit Diagnoses Not on filedocumented in this encounter Care Teams Corporate Accountant Relationship Specialty Start Date End Date Roman Mancia DO PCP - General Internal Medicine 09/03/19 03/04/24 Paulina Houser NP [address] [place], [place] [address] PCP - General Family Medicine 03/05/24 Oscar Carroll MD [address] [place] [address] Associate Professor Of Medicine Gastroenterology 09/03/19 Oleg Marrero MD [address] [place] [address] Surgeon Colon and Rectal Surgery 10/13/19 documented as of this encounter
--- OUTSIDE RECORDS SUMMARY | 2024-09-01 08:13 | XMS_ITS | Encounter Summary ---
Author Organization [facility] Address [address] [place] [address] Care Team Providers Care Pipe Fitter Marine Name Role Phone Brandon Roberts MD Primary Care Provider Encounter Details Date Type Department Care Team (Late st Contact Info) Description 07/03/2022 Lab Requisition [facility] - DermPath Lab [address] [facility], [place] [address] Chikis Mendoza MD [address] [facility] [address] [place] [address] Social History Tobacco Use Types Packs/Day Years Used Date Smoking Tobacco: Former Smokeless Tobacco: Never Alcohol Use Standard Drinks/Week Comments No 0 (1 standard drink = 0.6 oz pur e alcohol) Comments Unknown Sex and Gender Information Value Date Recorded Sex Assigned at Not on file 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 Gender Identity Not on file Sexual Orientation Not on file documented as of this encounter Plan of Treatment Not on file documented as of this encounter Procedures Procedure Name Priority Date/Time Associated Diagnosis Comments DERMATOPATHOLOGY Routine 07/03/2022 11:3 5 AM CDT documented in this encounter Results * DERMATOPATHOLOGY (07/03/2022 11:35 AM CDT) Case Report Dermatopathology Report Case: [id number] Authorizing Provider: Chikis Mendoza MD Collected: 07/03/2022 11:35 AM Ordering Location: [facility] DermPath Lab Received: 07/03/2022 04:44 PM [...] of a non-oriented ellipse of skin measuring [id number] mm. The epidermal surface is unremarkable. The [...] characteristic determined by the Dermatopathology Laboratory at [facility], directed by Dr. Leslye Thomas. These tests need not be, and therefore are not, approved by the [place] Food and Drug Administration. The tests are used for clinical purposes. Billing Codes Specimen Charges Stain Charges 47725 1 12:54 PM CDT DERMATOPATHOLOGY LABORATORY Embedded Images 12:54 PM CDT DERMATOPATHOLOGY LABORATORY Pathology/Cytolo gy TISSUE SPECIMEN FROM SKIN / Unknown 07/03/2022 11:35 AM CDT 07/03/2022 4:44 PM CDT us Chikis Mendoza MD LAB - PATHOLOGY/CYTOLOGY ORD ERABLES Final Result DERMATOPATHOLOGY LABORATORY [facility] - Department of Dermatology [facility] [address] [place] [address], [address] [phone] documented in this encounter Visit Diagnoses Not on filedocumented in this encounter Care Teams Pipe Fitter Marine Relationship Specialty Start Date End Date Brandon Roberts MD [address] [place] [address] PCP - General 11/12/08 documented as of this encounter
--- NOTE | 2024-09-25 00:16 | WPDSLEEPSTUD ---
Sleep Study Date of Study: 09/01/24 Ordering Provider: Fransico Beasley, Interpreting Physician: Brianne Rosenthal MD Sleep Study Type: BiPAP Titration Height: 1.6 m Weight: 85.729 kg Body Mass Index: 33.5 Neck Circumference (inches): 15.75 [place]: 9 Reason for Sleep Study Previously diagnosed with mild sleep apnea in 2009. Stopped using CPAP due to mask issues. * 07/06/2024 PSG showing overall AHI 8.1 with desaturation to 66%, underlying COPD, 161.6 minutes, 38.3% of the night with saturation less than 80% Sleep History This history is taken from her 07/06/2024 polysomnogram. Kanchan Abbott is an 88-year-old female who has known obstructive sleep apnea, was diagnosed with mild sleep apnea in 2009 but stopped using CPAP due to mask issues. She has used BiPAP in the past. She denies awakening from sleep short of breath. She denies awakening at night with heartburn, belching or cough. She frequently snores but is rarely loud enough that others complain. She constantly has trouble sleeping when she has a cold. She denies waking up gasping for air throughout the night. She denies having breathing problems at night observed by herself or others. She denies sweating excessively at night. She denies having heart palpitations or irregular heartbeats during the night. She occasionally falls asleep during the day but never while driving. She denies sleep paralysis, cataplexy and hypnagogic/ hypnopompic hallucinations. She denies having trouble at school or work due to sleepiness. She denies feeling afraid of going to sleep. She rarely has nightmares. She occasionally remembers her dreams. She occasionally has thoughts racing through her mind. She occasionally feels sad or depressed. She frequently has anxiety. She denies having muscular tension. She denies noticing parts of her body jerk. She denies kicking during the night. She denies having crawling and aching feelings in her legs but rarely has leg pain during the night. She denies grinding her teeth during sleep and denies awakening with morning jaw pain. She is rarely bothered by pain during the day but never awakened by pain during the night. She occasionally wakes up feeling stiff in the morning. She denies waking up with sore or achy muscles. She rarely wakes up with pain in the neck, spine or other joints. She goes to bed between 9-10 p.m. on both weekdays and weekends. It takes her 30 minutes or less to fall asleep. She wakes up twice throughout the night to urinate and is able to fall back asleep relatively quickly. She wakes up between 5-6 a.m. on both weekdays and weekends. She typically gets 6 hours of sleep per night. She will stay in bed for 30 minutes after waking up in the morning. She currently lives alone. She denies consuming any caffeinated beverages within 2 hours of bedtime. She denies engaging in physical exercise before bedtime. She will watch television before falling asleep. She will occasionally take naps in afternoon or the evening and they are refreshing. She consumes 2 cups of caffeinated beverage per day. She is a former smoker. She denies alcohol and recreational drug use. 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 Osteopenia Degenerative arthritis of knee, bilateral Basal cell carcinoma Vertigo Hearing loss Hypothyroidism Varicose vein of leg COPD (chronic obstructive pulmonary disease) GERD (gastroesophageal reflux disease) Frequent headaches Afib Hyperlipidemia Hypertension Surgical History Surgical History History of colectomy H/O arthroscopy of knee both knees, meniscectomy History of foot surgery History of tonsillectomy Family History Family History Mother Family history of malignant neoplasm of breast in first degree relative Father Family history of throat cancer Family history of malignant neoplasm Other Family history of arthritis Social History Social History Social History: Patient stated she socially smokes. Code status: DNR/DNI per patient request Surrogate decision maker: Shannan Melchor (daughter) Smoking packs per day: 1 Smoking cigarettes per day: 20.0 Years smoked: 30 Smoking pack-years: 30.00 Smoking status: Former smoker Second hand tobacco smoke exposure: Yes Alcohol intake: never Substance use: never Substance use type: does not use Do You Feel Safe in your Home?: Yes Lack of Transportation: No Lack of Food: Never True Current Housing: I Have Housing Concerned About Future Housing: No Difficulty Paying Gas/Electric Bills: No Difficulty Paying for Meds: No Currently Unemployed: No Education: High School Diploma/GED Difficulty w/ Childcare or Family Care: No Living arrangements: alone Occupation/Education: retired Gender identity (if verbalized by the patient): Female Spiritual care concerns: No Medications Home Medications ?Medication ?Instructions ?Recorded ?Confirmed ?Type dupilumab 300 mg/2 mL subcutaneous 300 mg subcut .biweekly 03/02/19 05/20/24 History syringe ([employer]) ascorbic acid (vitamin C) 1,000 mg 1 g PO DAILY 02/28/22 05/20/24 History capsule calcium carbonate (Calcium 600) 600 mg PO DAILY 05/07/22 05/20/24 History fluticasone 100 mcg-salmeterol 50 1 inh inhalation Q12H #60 ea 01/20/24 05/20/24 Rx mcg/dose blistr powdr for inhalation (Wixela Inhub) atorvastatin 40 mg tablet 40 mg PO DAILY #30 tabs 01/25/24 05/20/24 Rx metoprolol succinate 50 mg 50 mg PO QAM #30 tabs 01/25/24 05/20/24 Rx tablet,extended release 24 hr potassium chloride 20 mEq 20 meq PO BID 03/27/24 05/20/24 History tablet,extended release apixaban 2.5 mg tablet (Eliquis) 2.5 mg PO BID #60 tabs 04/22/24 05/20/24 Rx fluticasone fur. 100 mcg-umeclid 1 inh inhalation DAILYRT #1 ea 04/22/24 05/20/24 Rx 62.5 mcg-vilant 25 mcg inhalat.powder (Trelegy Ellipta) levalbuterol HCl 1.25 mg/3 mL 0.63 mg (1.512 mL) inhalation 04/22/24 05/20/24 Rx solution for nebulization Q6HRT PRN Shortness Of Breath Or Wheezing #90 mL lidocaine 5 % topical patch 1 patch transdermal DAILY #15 ea 04/22/24 05/20/24 Rx (Lidoderm) loratadine 10 mg tablet (Allergy 10 mg PO DAILY #30 tabs 04/22/24 05/20/24 Rx Relief (loratadine)) magnesium oxide 400 mg (241.3 mg 400 mg PO QAM #30 tabs 04/22/24 05/20/24 Rx magnesium) tablet sennosides 8.6 mg-docusate sodium 2 tab-cap (2 x 8.6-50 mg) PO BID 04/22/24 05/20/24 Rx 50 mg tablet (Senokot-S) PRN Constipation #10 tabs furosemide 40 mg tablet 40 mg PO BID 30 days #60 tabs 05/08/24 05/20/24 Rx amiodarone 200 mg tablet 200 mg PO Q24H #90 tabs 05/15/24 05/20/24 Rx levothyroxine 75 mcg tablet See Rx Instructions .Route 05/15/24 05/20/24 Rx .COMPLEX #90 tabs buspirone 10 mg tablet 10 mg PO BID #180 tabs 05/20/24 05/20/24 Rx trazodone 50 mg tablet 50 mg PO QHS #90 tabs 05/20/24 05/20/24 Rx pantoprazole 40 mg tablet,delayed See Rx Instructions .Route 06/12/24 Rx release .COMPLEX #90 tabs amlodipine 5 mg tablet 5 mg PO DAILY #90 tabs 08/13/24 Rx memantine 10 mg tablet (Namenda) 10 mg PO QPM #30 tabs 08/13/24 Rx Sleep Procedure A full CPAP polysomnogram using the [employer] multi-channel system recorded the standard physiologic parameters including EEG, EOG, submentalis EMG, anterior tibialis EMG, EKG, body position, nasal and oral airflow using nasal pressure sensor and thermistor. Respiratory parameters of chest and abdominal movements were recorded with Respiratory Inductance Plethysmography belts. Oxygen saturation was recorded by pulse oximetry. Video monitoring was also performed. Sleep stages, periodic limb movements, and EEG arousals were scored in 30 second epochs according to the criteria of the AASM Scoring Manual. The Apnea-Hypopnea Index was calculated using CMS guidelines for definition of hypopnea while scoring respiratory events. The patient self-administered trazodone 50 mg at lights out. She did not sleep in the lateral position, slept in the supine position. The patient was started CPAP using a medium AirFit F 40 fullface mask, initial CPAP pressure was 5 cm, increased to 7 cm, 9 cm, switched to BiPAP 8/4 due to low saturation and occasional obstructive hypopnea. BiPAP was titrated per protocol , 01/25, 14, 14 over a with 1 L of oxygen due to persistently low oxygen saturation without obstructive events. The titration continued, and at BiPAP 18/10 with 1 L of oxygen, the oxygen was discontinued to evaluate need for supplemental oxygen on a BiPAP pressure of 18/10. After 20 minutes using BiPAP 18/10 on room air saturation remained under 88% so oxygen was restarted. Final BiPAP pressure was 22/14 with 2 liters/minute of oxygen. At this setting, the patient spent 22 minutes in bed, 0.5 minutes awake, 21.5 minutes in non-REM, no time in REM. Sleep efficiency was 97.7%. The residual apnea-hypopnea index was 2.8 and the minimum saturation was 90%. On the same pressure without oxygen, the patient desaturated to 87%, mean saturation was 88%. Patient spent the entire night in the supine position. Sleep Architecture The total recording time was 473.2 minutes. The total sleep time was 304.5 minutes. Sleep latency was 8.2 minutes. REM latency was 87.0 minutes. Sleep efficiency was 64.3%. The patient had 47 awakenings for an awakening index of 9.3. Wake after Sleep Onset time was 160.5 minutes. The patient spent 32.5 minutes, 10.7% of total sleep time in Stage N1. The patient spent 188.5 minutes, 61.9% in Stage N2. The patient spent 25.0 minutes, 8.2% in Stage N3. The patient spent 58.5 minutes, 19.2% in Stage REM. Respiratory Analysis The patient had 64 hypopneas, 39 obstructive apneas, 1 mixed apnea, and 13 central apneas for an overall Apnea Hypopnea Index of 22.9 events per hour. The REM Apnea Hypopnea Index was 26.7. The NREM Apnea Hypopnea Index was 22.0. The patient had a Central Apnea Hypopnea Index of 2.6. There were no Respiratory Effort Related Arousals. The Respiratory Disturbance Index is 24.2 events per hour. There was no evidence of Tino-Osrenson Respirations. Arousals There were 69 total arousals for an arousal index of 13.6. There were 33 spontaneous arousals for an index of 6.5. There were 36 arousals due to respiratory events for an index of 7.1. There were no arousals due to periodic limb movements or isolated limb movements. Periodic Limb Movements The patient had 3 isolated limb movements with an index of 0.6. The patient had 47 periodic limb movements with index of 9.3. Patient had a total of 50 limb movements with a total limb movement index of 9.9. Oximetry Data The patient had an average oxygen saturation of 85.4% in sleep with a minimum oxygen saturation of 58% and a maximum oxygen saturation of 95%. The patient had 107 oxygen desaturations that were 4% or greater resulting in an Oxygen Desaturation Index of 21.1. The patient spent 254.3 minutes, 55.2% of total sleep time with an oxygen saturation below 88%. Snoring Profile Snoring was overall mild and eliminated during the titration. Cardiac Profile The EKG showed normal sinus rhythm. The patient had an average pulse rate of 51.8 bpm with a minimum pulse rate of 41 bpm and a maximum pulse rate of 85 bpm. No arrhythmias noted. EEG Profile No signs of seizure activity seen. Assessment and Plan Assessment and Plan (1) MARC (obstructive sleep apnea): Code(s): G47.33 - Obstructive sleep apnea (adult) (pediatric) Status: Acute Assessment and Plan: This full night titration on 09/01/2024 shows a successful final pressure of BiPAP 24/14 with 2 L oxygen using a medium AirFit F 40 fullface mask with heated humidity. At this setting, the patient spent 22 minutes in bed, 0.5 minutes awake, 21.5 minutes in non-REM, no time in REM. Sleep efficiency was 97.7%. The residual apnea-hypopnea index was 2.8 and the minimum saturation was 90%. The patient should be prescribed this ResMed equipment as well as tubing, filters and reservoir. This should be used with all episodes of sleep. Compliance should be reviewed within 31-90 days of starting therapy for usage greater than 4 hours per night greater than 70% of the nights. The patient should be asked about symptoms such as excessive daytime sleepiness, quality of sleep, decreased nocturia, increased mental functioning such as memory, mood, and concentration. BMi is 33.5. Weight management is advised. Clinical data suggests that weight loss of 10% can reduce the severity of respiratory events and snoring and improve AHI by as much as 25%. Data The data obtained during this sleep study is adequate for interpretation. Certification This sleep study has been reviewed by a board certified sleep medicine physician.
[2024-09-25 00:23] VITALS: BMI 33.5
== END 2024-09-02 06:47 | disposition home or self-care (01) ==
LOC: ANHCSM 08:06
PROVIDERS: PCP Nurse Practitioner Family; Visit Provider Student in an Organized Health Care Education/Training Program
DX: G47.33 Obstructive sleep apnea (adult) (pediatric) (principal); R06.83 Snoring; Z68.33 Body mass index [BMI] 33.0-33.9, adult
CPT/HCPCS: 95811

== ENCOUNTER 2024-11-14 13:15 | Outpatient (CLI) | payer MEDICARE, SELFPAY ==
[2024-11-14 14:16] LABS: Hematocrit 36.8 % (37.0-47.0); Hemoglobin 11.6 g/dL (12.0-15.0); Mean Corpuscular HGB Conc 31.5 g/dl (32-36); Mean Corpuscular Hemoglobin 30.4 pg (26-34); Mean Corpuscular Volume 96.6 fl (80-100); Platelet Count Result 147 k/mm3 (150-375); Red Blood Count 3.81 M/mm3 (4.2-5.4); White Blood Count 5.3 K/mm3 (4.5-10.0)
[2024-11-14 14:27] LABS: Alanine Aminotransferase 24 U/L (6-35); Albumin Level 4.2 g/dL (3.5-5.1); Alkaline Phosphatase 141 U/L (38-126); Anion Gap 8 mmol/L (4-12); Aspartate Amino Transferase 32 U/L (14-36); Bilirubin,Total 1.0 mg/dL (0.2-1.3); Blood Urea Nitrogen 22 mg/dL (7-17); Calcium 8.5 mg/dL (8.4-10.2); Carbon Dioxide 31 mmol/L (22-30); Chloride 95 mmol/L (98-107); Estimated Glomerular Filt Rate 56; Glucose 88 mg/dL (65-110); Magnesium 2.3 mg/dL (1.6-2.3); Potassium 4.1 mmol/L (3.4-5.0); Sodium 134 mmol/L (137-145); Total Protein 7.2 g/dL (6.3-8.2)
[2024-11-14 14:43] LABS: Iron 108 ug/dL (37-170)
[2024-11-14 14:52] LABS: Percent Iron Saturation 32 % (20-50)
[2024-11-14 15:10] LABS: Thyroid Stimulating Hormone Reflex 1.560 uIU/mL (0.465-4.68)
[2024-11-14 15:19] LABS: Ferritin 60.10 ng/mL (11.1-264)
[2024-11-14 15:38] LABS: Vitamin B12 312.0 pg/mL (239-931)
== END 2024-11-14 13:16 | disposition home or self-care (01) ==
LOC: ANHLAB 13:23
PROVIDERS: PCP Nurse Practitioner Family; Visit Provider Nurse Practitioner Family
DX: R41.89 Other symptoms and signs involving cognitive functions and awareness (principal); Z79.899 Other long term (current) drug therapy; E03.9 Hypothyroidism, unspecified; E83.42 Hypomagnesemia; I10 Essential (primary) hypertension; I50.9 Heart failure, unspecified; I48.91 Unspecified atrial fibrillation; E78.41 Elevated Lipoprotein(a); J44.9 Chronic obstructive pulmonary disease, unspecified
CPT/HCPCS: 36415; 80053; 82306; 82607; 82728; 82746; 83540; 83550; 83735; 84443; 85027